=== PATIENT | female | born 1935 | race Caucasian/White ===

== ENCOUNTER 2019-06-26 17:24 | Emergency (ER) | payer MEDICARE, BC, SELFPAY ==
[2019-06-26 17:25] VITALS: BP 128/64; PULSE 65; RESP 15; TEMP 36.6; O2SAT 98; BMI 32.0
--- NOTE | 2019-06-26 17:34 | CT_ITS ---
STUDY: CT BRAIN WITHOUT CONTRAST REASON FOR EXAM: Female, 84 years old. Tripped and head injury RADIATION DOSAGE (If Supplied By Facility): CTDIvol = ( 44.99 ) mGy, DLP = ( 745.49 ) mGycm TECHNIQUE: Transaxial CT imaging of the brain was performed without administration of intravenous contrast material. Individualized dose optimization techniques were used for this CT. COMPARISON: 02/24/17 FINDINGS: Posterior scalp laceration with hematoma. Normal calvarium. There is mild cerebral atrophy with widening of the extra-axial spaces and ventricular dilatation. There are areas of decreased attenuation within the white matter tracts of the supratentorial brain, consistent with microvascular disease changes. Normal basal ganglia and thalami. Normal brainstem. There is mild cerebellar atrophy. There is no intracranial hemorrhage. There are no findings of an acute ischemic infarction. Normal visualized paranasal sinuses. CT/Brain/Head without Contrast IMPRESSION: Posterior scalp laceration with hematoma. No acute intracranial pathology. Electronically Signed: Zafar Hoffman DO at 18:12 EDT Tel , Service support ,
--- NOTE | 2019-06-26 17:35 | ED.VISSUMM ---
- ER Visit Summary Date of Service: 06/26/19 Chief Complaint: Head injury History of Present Illness: The patient is a 84 F who presents the emergency department 1 hour after she tripped over shopping cart striking the back of her head. No loss of consciousness. She is able to drive herself home and then came to the emergency department with family. She notes a growing headache. No nausea vomiting. She denies being on any anticoagulants. She denies any neck pain. Physical Examination: Afebrile vital signs stable Gen: Well-nourished well-developed Head: Normocephalic there is an occipital scalp hematoma Eyes: Perrl EOMI ENT: TMs clear no rhinorrhea moist mucous membranes Neck: Supple no lymphadenopathy no JVD nontender CVS: Regular rate rhythm no murmurs normal S1-S2 Respiratory: No distress clear to auscultation bilaterally chest nontender Abdomen: Soft nontender nondistended normal bowel sounds no masses Back: Nontender Extremity: Nontender no edema Skin: Normal color no rash Neuro: alert orientated ?3 CN II-XII intact normal strength sensation cerebellar Psych: Normal affect normal mood Test Results: CT brain was obtained. This demonstrated an occipital scalp hematoma but no obvious skull fracture or intracranial hemorrhage/contusion. Emergency Department Course and Treatment: She received Tylenol for headache. Patient will be discharged home with supportive care with instructions for Tylenol and ice. Return if worsening or concerns. Impression: 1. Mechanical fall 2. Occipital scalp hematoma This note was generated with [employer] dictation software. It may contain incorrect words, spelling, and punctuation that were not noted in review of the chart prior to signing ED Disposition - Plan for ED Patient: Disposition: Home or Assisted Living Instructions: SCALP CONTUSION, No Wake Up, HEAD INJURY, No Wake-Up (Adult) Referrals: Favio Landis MD [Primary Care Provider] - As Needed
[2019-06-26] MEDS: Acetaminophen 500 MG Tablet 1000 MG PO (18:04)
[2019-06-26 18:30] VITALS: PULSE 74; RESP 18; O2SAT 99
== END 2019-06-26 18:30 | disposition home or self-care (01) ==
PROVIDERS: Emergency Provider Emergency Medicine; Family Provider Family Medicine; PCP Family Medicine
DX: S00.03XA Contusion of scalp, initial encounter (principal); W18.09XA Striking against other object with subsequent fall, initial encounter; Y93.9 Activity, unspecified; E11.9 Type 2 diabetes mellitus without complications; Z79.84 Long term (current) use of oral hypoglycemic drugs; Z79.899 Other long term (current) drug therapy
CPT/HCPCS: 70450; 99282

== ENCOUNTER 2020-10-09 22:57 | Observation (INO) | payer MEDICARE, SELFPAY ==
[2020-10-09 22:58] VITALS: BP 175/63; PULSE 59; RESP 16; TEMP 36.5; O2SAT 97; BMI 33.3
--- NOTE | 2020-10-09 23:15 | ED.VIS.GEN ---
History of Present Illness Chief Complaint: GI Bleed Informant: Patient Narrative: Stated she had some abdominal cramping after eating lunch earlier today. It was a lower abdominal cramps. She sat on the toilet for prolonged period of time. She had a stool plug that she was able to pass with effort. Afterwards she had diarrhea mixed with some blood. She went about her day normally this evening and had another episode of cramping with nausea with one episode of emesis. She sat on the toilet afterwards and had diarrhea again mixed with bright red blood. She has never had this before. Denies any fevers or chills. Currently she has some mild abdominal cramps without nausea. No home treatment. She takes a baby aspirin otherwise no blood thinners. Her last colonoscopy was 6 years ago and she has had polyps removed remotely. 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 She was getting regular colonoscopies and never had endoscopy. No history of stomach ulcer gastritis. She does have a history of hemorrhoids. - Past Medical History (1) Lightheadedness Status: Acute (2) Visual disturbance Status: Acute (3) CKD (chronic kidney disease), stage IV Status: Chronic (4) Cervical cancer Status: Chronic (5) Dyslipidemia Status: Chronic (6) Essential hypertension Status: Chronic (7) HTN (hypertension) Status: Chronic (8) Obesity (BMI 30.0-34.9) Status: Chronic (9) Type 2 diabetes mellitus Status: Chronic Past Medical History - Allergies and Home Meds Allergies/Adverse Reactions: Allergies No Known Allergies Allergy (Verified 10/09/20 23:01) Primary Care Physician: Favio Landis MD [Primary Care Provider] - Prior records reviewed: Yes Past Medical History: - - See problem list Surgical History: - - Appendectomy, hysterectomy, cholecystectomy, D+C. Lives: With Family Smoking Status: Former smoker Alcohol: None Drugs: None - Family History Maternal Family History: Reports: Cancer - Mother with history of lung cancer with tobacco use history., COPD Paternal Family History: Reports: - - Other noted to be an alcoholic. Review of Systems General: Denies: Chills, Fever, Sweats Eyes: Denies: Visual changes - bilaterally, Diplopia ENT: Denies: Rhinorrhea, Sore throat Cardiovascular: Denies: Chest pain, Palpitations Respiratory: Denies: Dyspnea, Cough, Dyspnea on exertion Gastrointestinal: Reports: Abdominal pain, Vomiting, Hematochezia. Denies: Nausea, Diarrhea, Melena Genitourinary: Denies: Dysuria, Hematuria, Frequency Musculoskeletal: Denies: Back pain, Extremity Pain Skin: Denies: Rash, Wounds Neurological: Denies: Headache, Weakness, Numbness Physical Exam Vital Signs/Narrative: Vital Signs Temp Pulse Resp BP Pulse Ox 10/09/20 22:58 97.7 F L 59 L 16 175/63 H 97 General: Well nourished, Well developed, No Acute Distress Head: Normocephalic, Atraumatic Eyes: Perrl, EOMI ENT: Moist mucous membranes, No rhinorrhea Neck: Supple, Nontender Cardiovascular: Regular rate, Regular rhythm, No murmurs Respiratory: No distress, CTA bilaterally, Chest nontender Abdomen: Soft, Nontender, Nondistended, Normal bowel sounds Rectal: - - Patient had a rectal exam with external hemorrhoid without bleeding. On finger insertion she had no pain. There was small blood flecks on her anus and on my finger with brown stool.. Negative for: Tenderness Back: Nontender, Normal Inspection Extremities: Nontender, No edema Skin: Normal color, No rash Neurological: Alert, Oriented x3, Cranial nerves II-XII grossly intact, Normal Strength, Normal Sensation Psychological: Normal affect, Normal Mood Diagnostic/Tx/Re-eval - Medical Decision Making IV established and given IV fluids. Lab work obtained. Lab work shows a normal hemoglobin count. No further bleeding in the ER. Normal white count but positive left shift. Elevated BUN/creatinine which appears chronic. Liver function test normal. CT abdomen pelvis was obtained which shows acute uncomplicated diverticulitis. On reevaluation patient chest with some mild cramping and no specific pain in this area on exam. Given IV antibiotics. Discussed the hospitalist will be admitted. ED Disposition - Plan for ED Patient: Disposition: Acute Care Hospital [facility] Diagnosis: Acute diverticulitis of intestine
[2020-10-09] MEDS: 0.9% Normal Saline 1,000 ML 125 ML IV (23:29)
[2020-10-09 23:35] LABS: Absolute Lymphocyte Count 1.04 X10^3/uL (0.83-4.51); Absolute Neutrophil Count 8.6 X10^3/uL (2.0-7.7); Basophil# 0.03 X10^3/uL; Basophil% 0.3 % (0-1); Eosinophil# 0.02 X10^3/uL; Eosinophils% 0.2 % (0-5); Hemoglobin 12.5 g/dL (12.0-15.0); Lymphocyte # 1.04 X10^3/ul (4.0); Mean Corp Hgb Conc 32.9 g/dL (32-36); Mean Corpuscular Hgb 31.3 pg (27.0-32.0); Mean Corpuscular Volume 95.2 fL (81-99); Monocyte# 0.67 X10^3/uL; Monocyte% 6.4 % (0-10); NRBC Flagged by Analyzer 0 % (0-5); Neutrophil # 8.58 X10^3/uL (2.7-7.7); Neutrophil % 82.6 % (47-70); Platelet Count 206 K/mm3 (150-450); RBC Distribution Width CV 14.5 % (11.6-14.6); RBC Distribution Width SD 50.4 fl (35.1-43.9); Red Blood Count 3.99 M/mm3 (4.2-5.4); White Blood Count 10.4 K/mm3 (4.4-11.0)
[2020-10-09 23:54] LABS: Prothrombin Time (Protime)PT. 12.7 SECONDS (11.7-14.9)
[2020-10-09 23:56] LABS: ALB/GLOB Ratio 1.3 RATIO (0.9-2.4); AST(SGOT) 17 U/L (15-37); Alanine Aminotransfer ALT/SGPT 21 U/L (13-56); Albumin, Serum 4.2 g/dL (3.2-5.0); Alkaline Phosphatase 70 U/L (45-117); Anion Gap 4 (5-15); BUN 27 mg/dL (7-18); BUN/Creat Ratio 19.4 RATIO (10-20); Calcium,Total 9.4 mg/dL (8.5-10.1); Chloride 110 mmol/L (98-107); Creatinine, Serum 1.39 mg/dL (0.55-1.02); EST Glomerular Filtration Rate 38 mL/min (>60); Est Glom Filt Rate - Afr Amer 46 mL/min (>60); Estimated Creatinine Clearance 22.33 ml/min; Globulin 3.3 g/dL (2.2-4.2); Glucose 155 mg/dL (74-106); Potassium 3.8 mmol/L (3.5-5.1); Protein, Total 7.5 g/dL (6.4-8.2); Sodium Level 139 mmol/L (136-145)
[2020-10-10] VITALS (8 sets, daily range): BP systolic 129–169; BP diastolic 58–67; PULSE 65–82; RESP 16–18; TEMP 36.6–37.4; O2SAT 93–98; BMI 32.3
[2020-10-10] MEDS: Ciprofloxacin 400 MG/200 ML BAG 200 MG IV ×2 (01:30→22:05)
--- NOTE | 2020-10-10 03:09 | PCM.HP.STD ---
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 representative use Diabetes mellitus complication status: with unspecified complications (4) Dyslipidemia Status: Chronic (5) Essential hypertension Status: Chronic (6) HTN (hypertension) Status: Chronic Qualifiers: Hypertension type: essential hypertension Qualified Code(s): I10 - Essential (primary) hypertension (7) Cervical cancer Status: Chronic Qualifiers: Malignant neoplasm of cervix location: unspecified location Qualified Code(s): C53.9 - Malignant neoplasm of cervix uteri, unspecified (8) Obesity (BMI 30.0-34.9) Status: Chronic (9) CKD (chronic kidney disease), stage IV Status: Chronic History of Present Illness Date of Admission: 10/10/20 Chief Complaint: bloody diarrhea The patient is a 85 year old F with a significant history of cervical cancer; HTN and diabetes who presented to the ED with bloody diarrhea. Her symptoms started on the same day of presentation. For a few days she has been constipated. On the day of presentation she had tenesmus with bloody bowel movements. After her 'plug' has been removed she had multiple loose stools which were mixed with blood. Also she reports bloody mucousy string from her rectum. Associated for symptoms is nausea vomiting and abdominal cramps. Her last colonoscopy was around 2013. She reports that she is supposed to be having every 5 years colonoscopy however in 2019 as she makes the colonoscopy and it has not been rescheduled because of the pandemic. Her last colonoscopy was done by Dr. Valencia, who was with [facility] but has now retired. Her last 2 colonoscopies polyps were removed. Patient is concerned about her bloody bowel movements since her mother had bloody bowel movement and in her case (mother) work-up revealed lung cancer. Past Medical History Past Medical History (Chronic Problems): Chronic Problems Type 2 diabetes mellitus (Chronic) Dyslipidemia (Chronic) Essential hypertension (Chronic) HTN (hypertension) (Chronic) Cervical cancer (Chronic) Obesity (BMI 30.0-34.9) (Chronic) CKD (chronic kidney disease), stage IV (Chronic) Allergies No Known Allergies Allergy (Verified 10/09/20 23:01) Home Medications: Ambulatory Orders Medication Instructions Recorded Gemfibrozil [Lopid] 600 mg PO QHS 02/24/17 Lisinopril [Zestril] 2.5 mg PO DAILY 02/24/17 Metoprolol Tartrate [Lopressor 25 mg PO BID 02/24/17 (beta sandor)] Pramipexole Di-HCl [Mirapex] 0.25 mg PO QHS 02/24/17 Pravastatin Sodium 80 mg PO QHS 02/24/17 Spironolact/Hydrochlorothiazid 0.5 tab PO DAILY 02/24/17 [Aldactazide 50-50 Tablet] glipiZIDE XL [Glucotrol Xl] 5 mg PO DAILY 02/24/17 Acetaminophen [Tylenol Extra 500 mg PO BID 10/10/20 Strength] Allopurinol [Zyloprim] 100 mg PO BIDCM 10/10/20 Aspirin [Aspirin, Baby] 81 mg PO QHS 10/10/20 Cholecalciferol (Vitamin D3) 10 mcg PO DAILY 10/10/20 [Vitamin D3] Clotrimazole [Clotrimazole AF] 1 applic TOPICAL QHS 10/10/20 Cyanocobalamin (Vitamin B-12) 1,000 mcg PO DAILY 10/10/20 [Vitamin B-12] Insulin Glargine [Lantus SoloStar 34 units SQ QHS 10/10/20 Pen] Insulin Lispro [Insulin Lispro 6 unit SQ BIDCM 10/10/20 Kwikpen U-100] Surgical History: - - Appendectomy, hysterectomy, cholecystectomy, D+C. 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 Review of Systems Constitutional: Denies: Chills, Fever, Weight Change HEENT: Denies: Head Aches, Sinus Congestion, Sinus Drainage Cardiovascular: Denies: Chest Pain, Palpitations Respiratory: Denies: Cough, Shortness of breath at rest, Sputum production Gastrointestinal: Reports: Abdominal Pain, Constipation, Diarrhea, Hematochezia, Nausea. Denies: Vomiting Genitourinary: Denies: Dysuria Musculoskeletal: Denies: Joint Pain, Joint Tenderness Skin: Denies: Rash, Wounds Neurological: Denies: Numbness, Tingling, Focal weakness Psychiatric: Denies: Anxiety, Depression, Homicidal Ideations, Suicidal Ideations Hematologic/ Lymphatic: Denies: Easy Bruising, Easy Bleeding VTE Information - Inpt Only VTE Present on Admission: No VTE Mechan Device Prophylaxis: None VTE Pharm Prophylaxis ordered?: No Patient Problems: Active and Suspected Problems Acute diverticulitis of intestine (Acute) Diverticular hemorrhage (Acute) - Physical Exam Vitals/I&O's: Vital Signs Temp Pulse Resp BP Pulse Ox 98.4 F 71 16 157/62 H 97 10/10/20 01:50 10/10/20 01:50 10/10/20 01:50 10/10/20 01:50 10/10/20 01:50 Oxygen Delivery Method Room Air Weight: 80 kg Body Mass Index (BMI) 33.3 Intake and Output for Last 24 Hours 10/08/20 10/09/20 10/10/20 23:59 23:59 23:59 Intake Total 252.08 / 252.08 Balance 252.08 / 252.08 General: Alert, Oriented x3, Cooperative HEENT: Atraumatic, PERRLA, EOMI, Normocephalic Neck: Supple, No JVD, Negative Carotid Bruits Lungs: Clear to auscultation, Normal air movement Cardiovascular: Regular rate, No murmurs Abdomen: Bowel Sounds Present, Soft, Non Tender Extremities: No edema, Capillary Refill Less than 3 Seconds, Cool - Mildly cool left foot., - - Right dorsalis pedis pulse 3 out of 4. Pulse in left dorsalis pedis 2 out of 4. Skin: No rashes, No breakdown, - - Pale Musculoskeletal: No Tenderness to Palpation of Joints or Extremities Neurological: Cranial nerves II-XII grossly intact Psych/Mental Status: Normal Affect, Appropriate Laboratory Results 10/09/20 23:29: WBC 10.4, RBC 3.99 L, Hgb 12.5, Hct 38.0, MCV 95.2, MCH 31.3, MCHC 32.9, RDW Std Deviation 50.4 H, RDW Coeff of Luciano 14.5, Plt Count 206, MPV 10.0, Immature Gran % (Auto) 0.500, Neut % (Auto) 82.6 H, Lymph % (Auto) 10.0 L, Fannin % (Auto) 6.4, Eos % (Auto) 0.2, Baso % (Auto) 0.3, Absolute Neuts (auto) 8.6 H, Absolute Lymphs (auto) 1.04, Nucleated RBC % 0 10/09/20 23:29: Sodium 139, Potassium 3.8, Chloride 110 H, Carbon Dioxide 25.0, Anion Gap 4 L, BUN 27 H, Creatinine 1.39 H, Estim Creat Clear Calc 22.33, Est GFR (MDRD) Af Amer 46 L, Est GFR (MDRD) Non-Af 38 L, BUN/Creatinine Ratio 19.4, Glucose 155 H, Calcium 9.4, Total Bilirubin 0.30, AST 17, ALT 21, Alkaline Phosphatase 70, Total Protein 7.5, Albumin 4.2, Globulin 3.3, Albumin/Globulin Ratio 1.3 10/09/20 23:29: PT 12.7, INR 1.0, APTT 26.0 Current Medications Sodium Chloride () 1,000 mls @ 125 mls/hr IV .Q8H DARLENE Last Infusion: 10/10/20 01:30 Dose: 0 mls/hr Documented by: Assessment/Plan All Active Problems Acute diverticulitis of intestine (Acute) Diverticular hemorrhage (Acute) The patient is a 85 year old F with a significant history of cervical cancer; HTN and diabetes who presented to the ED with bloody diarrhea and with abdomen and pelvis CT findings of uncomplicated acute diverticulitis with colitis not excluded. Acute diverticulitis with diverticular bleed. Abdomen and pelvis CT with suspected uncomplicated acute diverticulitis involving the descending colon with underlying colitis not excluded. Started on IV ciprofloxacin and IV Flagyl at emergency department and continued. Trend CBC and BMP. Noted to have hyperchloremia. Half-normal saline started. Patient is a candidate for colonoscopy after acute diverticulitis has resolved. We will keep n.p.o. for now. Morphine IV as needed for pain. Zofran IV as needed for nausea and vomiting. Diabetes mellitus Patient with mild hyperglycemia on presentation Patient requested a basal insulin her emergency department. Discussed emergent department to give 10 units of basal insulin instead of a home at 34 units nightly. Basal insulin 36 units nightly while n.p.o at this time. Reports that she takes short acting insulin 6 units with each meal. Hold prandial insulin at this time. Previously on Metformin. Reported she is no longer on Metformin. Hold glipizide. Accu-Chek every 6 hours with correction scale insulin ordered. Low-dose lisinopril continued Hyperlipidemia Gemfibrozil continued Hypertension Blood pressure is not within goal Lisinopril; metoprolol; Aldactone and hydrochlorothiazide continued. Trend blood pressure and adjust blood pressure medications. CKD stage III Stable DVT prophylaxis No chemical thromboprophylaxis secondary to GI bleed. SCD ordered Advance care planning: Discussed with patient advanced directives as well as CODE STATUS. Explained various CODE STATUS: FULL CODE, DNR CCA, DNR CCA with no intubation, and DNR CC- and what each meant. Patient elected to be a full code with CPR and intubation if warranted. Order was placed. Her daughter Tiffanie Wheat ([phone]) is POA. Patient stated that if she is unable to come back to be functional she would not want any heroic measures but at this time she is a full code. Time spent on discussion 16 minutes. Inpatient E&M: 22192 Init Hosp L3 Procedures: 75623 Advncd Care Plan 30 Min
[2020-10-10] MEDS: metroNIDAZOLE 500 MG/100 ML BAG 100 MG IV ×3 (03:17→21:00)
[2020-10-10] MEDS: 0.45% Normal Saline 1,000 ML 75 ML IV ×2 (04:29→17:34)
[2020-10-10] MEDS: Insulin Lispro 100 UNIT/ML INSULN.PEN SC ×2 (06:00→17:34)
[2020-10-10 06:01] LABS: Bedside Glucose 159 mg/dL (70-110)
[2020-10-10 06:41] LABS: Absolute Neutrophil Count 8.7 X10^3/uL (2.0-7.7); Basophil# 0.03 X10^3/uL; Basophil% 0.3 % (0-1); Eosinophil# 0.01 X10^3/uL; Eosinophils% 0.1 % (0-5); Hemoglobin 12.3 g/dL (12.0-15.0); Lymphocyte % 9.6 % (19-41); Mean Corp Hgb Conc 34.2 g/dL (32-36); Mean Corpuscular Hgb 32.1 pg (27.0-32.0); Mean Platelet Vol. 10.3 fl (6.2-12.0); Monocyte% 5.8 % (0-10); NRBC Flagged by Analyzer 0 % (0-5); Neutrophil # 8.72 X10^3/uL (2.7-7.7); Neutrophil % 83.8 % (47-70); Platelet Count 187 K/mm3 (150-450); RBC Distribution Width CV 14.5 % (11.6-14.6); RBC Distribution Width SD 49.5 fl (35.1-43.9); Red Blood Count 3.83 M/mm3 (4.2-5.4); White Blood Count 10.4 K/mm3 (4.4-11.0)
[2020-10-10 07:08] LABS: Anion Gap 7 (5-15); BUN 22 mg/dL (7-18); BUN/Creat Ratio 17.1 RATIO (10-20); Calcium,Total 8.9 mg/dL (8.5-10.1); Chloride 108 mmol/L (98-107); Creatinine, Serum 1.29 mg/dL (0.55-1.02); EST Glomerular Filtration Rate 42 mL/min (>60); Est Glom Filt Rate - Afr Amer 51 mL/min (>60); Estimated Creatinine Clearance 25.22 ml/min; Glucose 140 mg/dL (74-106); Sodium Level 137 mmol/L (136-145)
[2020-10-10] MEDS: Lisinopril 2.5 MG Tablet PO (10:09)
[2020-10-10] MEDS: Metoprolol Tartrate 25 MG Tablet PO ×2 (10:09→21:03)
[2020-10-10] MEDS: Acetaminophen 500 MG Tablet PO ×2 (10:11→21:03)
[2020-10-10 12:00] LABS: Bedside Glucose 179 mg/dL (70-110)
--- NOTE | 2020-10-10 12:32 | PCM.PN.HOSP ---
<Edwar Boyce - Last Filed: 10/10/20 12:32> Patient Problems: Active and Suspected Problems Acute diverticulitis of intestine (Acute) Diverticular hemorrhage (Acute) Reason for Visit: diverticulitis Subjective: Pt denies prior episode of diverticulitis. She has colonoscopies every 5 years with [facility], is currently due, as she has a hx of polyps. She had some diarrhea this AM. She has some bright red blood and clots in her stool, which is loose. She has mild intermittent diffuse abodminal cramping. She has no further nausea or vomiting and is tolerating jello. No fever/chills. Vitals/I&O's: Vital Signs Temp Pulse Resp BP Pulse Ox 99.3 F H 80 16 129/58 H 93 10/10/20 08:57 10/10/20 10:09 10/10/20 08:57 10/10/20 08:57 10/10/20 08:57 Oxygen Delivery Method Room Air Weight: 176 lb 12.972 oz Body Mass Index (BMI) 32.3 Intake and Output for Last 24 Hours 10/08/20 10/09/20 10/10/20 23:59 23:59 23:59 Intake Total 552.08 / 552.08 Output Total 400 / 400 Balance 152.08 / 152.08 General: Alert, Oriented x3, Cooperative HEENT: Atraumatic, PERRLA, EOMI, Normocephalic Neck: Supple, No JVD, Negative Carotid Bruits Lungs: Clear to auscultation, Normal air movement Cardiovascular: Regular rate, No murmurs Abdomen: Bowel Sounds Present, Soft, Non Tender, Obese Extremities: No edema, Capillary Refill Less than 3 Seconds Skin: No rashes, No breakdown Musculoskeletal: No Tenderness to Palpation of Joints or Extremities Neurological: Cranial nerves II-XII grossly intact Psych/Mental Status: Normal Affect, Appropriate, Alert and oriented to time, place, person, mood and affect Laboratory Results 10/09/20 23:29: WBC 10.4, RBC 3.99 L, Hgb 12.5, Hct 38.0, MCV 95.2, MCH 31.3, MCHC 32.9, RDW Std Deviation 50.4 H, RDW Coeff of Luciano 14.5, Plt Count 206, MPV 10.0, Immature Gran % (Auto) 0.500, Neut % (Auto) 82.6 H, Lymph % (Auto) 10.0 L, [place] % (Auto) 6.4, Eos % (Auto) 0.2, Baso % (Auto) 0.3, Absolute Neuts (auto) 8.6 H, Absolute Lymphs (auto) 1.04, Nucleated RBC % 0 10/09/20 23:29: Sodium 139, Potassium 3.8, Chloride 110 H, Carbon Dioxide 25.0, Anion Gap 4 L, BUN 27 H, Creatinine 1.39 H, Estim Creat Clear Calc 22.33, Est GFR (MDRD) Af Amer 46 L, Est GFR (MDRD) Non-Af 38 L, BUN/Creatinine Ratio 19.4, Glucose 155 H, Calcium 9.4, Total Bilirubin 0.30, AST 17, ALT 21, Alkaline Phosphatase 70, Total Protein 7.5, Albumin 4.2, Globulin 3.3, Albumin/Globulin Ratio 1.3 10/09/20 23:29: PT 12.7, INR 1.0, APTT 26.0 10/10/20 05:56: POC Glucose 159 H 10/10/20 06:10: WBC 10.4, RBC 3.83 L, Hgb 12.3, Hct 36.0 L, MCV 94.0, MCH 32.1 H, MCHC 34.2, RDW Std Deviation 49.5 H, RDW Coeff of Luciano 14.5, Plt Count 187, MPV 10.3, Immature Gran % (Auto) 0.400, Neut % (Auto) 83.8 H, Lymph % (Auto) 9.6 L, [place] % (Auto) 5.8, Eos % (Auto) 0.1, Baso % (Auto) 0.3, Absolute Neuts (auto) 8.7 H, Absolute Lymphs (auto) 1.00, Nucleated RBC % 0 10/10/20 06:10: Sodium 137, Potassium 4.0, Chloride 108 H, Carbon Dioxide 22.0, Anion Gap 7, BUN 22 H, Creatinine 1.29 H, Estim Creat Clear Calc 25.22, Est GFR (MDRD) Af Amer 51 L, Est GFR (MDRD) Non-Af 42 L, BUN/Creatinine Ratio 17.1, Glucose 140 H, Calcium 8.9 10/10/20 11:56: POC Glucose 179 H Current Medications Acetaminophen (Acetaminophen 500 Mg Tablet) 500 mg PO BID [facility] Last Admin: 10/10/20 10:11 Dose: 500 mg Documented by: Allopurinol (Allopurinol 100 Mg Tablet) 100 mg PO BIDCM [facility] Last Admin: 10/10/20 10:13 Dose: Not Given Documented by: Cholecalciferol (Cholecalciferol (Vit D3) 1,000 Unit (25mcg)) 1,000 unit PO DAILY [facility] Last Admin: 10/10/20 10:13 Dose: Not Given Documented by: Clotrimazole (Clotrimazole 1 Tube) 1 applicatio [facility]; Protocol Cyanocobalamin (Cyanocobalamin 500 Mcg Tablet) 1,000 mcg PO DAILY [facility] Last Admin: 10/10/20 10:13 Dose: Not Given Documented by: Dextrose (Dextrose 50%-Water 25 Gm/50 Ml Disp.Syrin) 0 gm IV X1 PRN; Protocol PRN Reason: Hypoglycemia Gemfibrozil (Gemfibrozil 600 Mg Tablet) 600 mg PO DAILY [facility] Last Admin: 10/10/20 10:12 Dose: Not Given Documented by: Glucagon (Glucagon 1 Mg/Ml Syringe) 1 mg IM .X1 PRN PRN Reason: Hypoglycemia Hydrochlorothiazide (Hydrochlorothiazide 25 Mg Tablet) 25 mg PO DAILY [facility] Last Admin: 10/10/20 10:12 Dose: Not Given Documented by: Metronidazole (Flagyl) 500 mg in 100 mls @ 100 mls/hr IV Q8 [facility] Ciprofloxacin (Cipro) 400 mg in 200 mls @ 200 mls/hr IV Q24@2200 [facility] Sodium Chloride () 1,000 mls @ 75 mls/hr IV .[id number] [facility] Last Admin: 10/10/20 04:29 Dose: 75 mls/hr Documented by: Sodium Chloride () 250 mls @ 15 mls/hr IV .[id number] PRN PRN Reason: Saline Flush Sodium Chloride () 250 mls @ 15 mls/hr IV .[id number] PRN PRN Reason: Additional IVPB Infusion Insulin Glargine (Insulin Glargine 100 Units/Ml Pen) 10 units SC QHS [facility] Insulin Human Lispro (Insulin Lispro 100 Unit/Ml Insuln.Pen) 0 unit SC Q6 [facility]; Protocol Last Admin: 10/10/20 06:00 Dose: 1 unit Documented by: Lisinopril (Lisinopril 2.5 Mg Tablet) 2.5 mg PO DAILY [facility] Last Admin: 10/10/20 10:09 Dose: 2.5 mg Documented by: Melatonin (Melatonin 3 Mg Tablet) 3 mg PO QHS PRN PRN PRN Reason: INSOMNIA Metoprolol Tartrate (Metoprolol Tartrate 25 Mg Tablet) 25 mg PO BID [facility] Last Admin: 10/10/20 10:09 Dose: 25 mg Documented by: Morphine Sulfate (Morphine 2 Mg/Ml Syringe) 1 mg IV Q3H PRN PRN PRN Reason: Pain Score 6-10 Ondansetron HCl (Ondansetron 4 Mg/2 Ml Vial) 4 mg IV Q8H PRN PRN PRN Reason: NAUSEA/VOMITING Pramipexole Dihydrochloride (Pramipexole Di-Hcl 0.25 Mg Tablet) 0.25 mg PO QHS [facility] Pravastatin Sodium (Pravastatin 80 Mg Tablet) 80 mg PO QHS [facility] Sodium Chloride (0.9% Saline Lock 10 Ml Syringe) 10 - 40 ml IV UD PRN PRN Reason: SALINE FLUSH Spironolactone (Spironolactone 25 Mg Tablet) 25 mg PO DAILY [facility] Last Admin: 10/10/20 10:13 Dose: Not Given Documented by: STROKE Vital Signs/Narrative: Vital Signs Temp Pulse Resp BP Pulse Ox 10/10/20 10:09 80 10/10/20 08:57 99.3 F H 82 16 129/58 H 93 Medical Necessity - Tobacco Use Smoking Status: Former smoker Assessment/Plan All Active Problems Acute diverticulitis of intestine (Acute) Diverticular hemorrhage (Acute) 1. Acute diverticulitis - 1st episode. advance diet with caution, doing well today. No fever/leukocytosis. Nausea resolved. Tolerating clears. Mild cramping. CT abdomen with uncomplicated acute diverticulitis. Cipro / flagyl continued. Recommend outpatient colonoscopy when recovered. She has some bleeding as well, however she has normal Hgb. 2. HTN - improved on home meds. 3. DMt2 with obesity - SSI 4. CKD IV - improved with IV fluids DVT ppx: SCDs This patient was seen by Edwar Boyce PA-C under the supervision of Dr. Hester. <Piter Hester - Last Filed: 10/10/20 16:13> Vitals/I&O's: Vital Signs Temp Pulse Resp BP Pulse Ox 36.6 C 78 18 133/61 H 95 10/10/20 13:10 10/10/20 13:10 10/10/20 13:10 10/10/20 13:10 10/10/20 13:10 Oxygen Delivery Method Room Air Weight: 80.2 kg Body Mass Index (BMI) 32.3 Intake and Output for Last 24 Hours 10/08/20 10/09/20 10/10/20 23:59 23:59 23:59 Intake Total 1459.58 / 1459.58 Output Total 400 / 400 Balance 1059.58 / 1059.58 General: Alert, Cooperative HEENT: Atraumatic, Normocephalic Neck: Supple, Negative Carotid Bruits Lungs: Clear to auscultation, Normal air movement Cardiovascular: Regular rate, No murmurs Abdomen: Bowel Sounds Present, Soft, Non Tender Extremities: No edema, No Calf Tenderness Skin: No rashes, No breakdown Psych/Mental Status: Normal Affect, Appropriate Laboratory Results 10/09/20 23:29: WBC 10.4, RBC 3.99 L, Hgb 12.5, Hct 38.0, MCV 95.2, MCH 31.3, MCHC 32.9, RDW Std Deviation 50.4 H, RDW Coeff of Luciano 14.5, Plt Count 206, MPV 10.0, Immature Gran % (Auto) 0.500, Neut % (Auto) 82.6 H, Lymph % (Auto) 10.0 L, [place] % (Auto) 6.4, Eos % (Auto) 0.2, Baso % (Auto) 0.3, Absolute Neuts (auto) 8.6 H, Absolute Lymphs (auto) 1.04, Nucleated RBC % 0 10/09/20 23:29: Sodium 139, Potassium 3.8, Chloride 110 H, Carbon Dioxide 25.0, Anion Gap 4 L, BUN 27 H, Creatinine 1.39 H, Estim Creat Clear Calc 22.33, Est GFR (MDRD) Af Amer 46 L, Est GFR (MDRD) Non-Af 38 L, BUN/Creatinine Ratio 19.4, Glucose 155 H, Calcium 9.4, Total Bilirubin 0.30, AST 17, ALT 21, Alkaline Phosphatase 70, Total Protein 7.5, Albumin 4.2, Globulin 3.3, Albumin/Globulin Ratio 1.3 10/09/20 23:29: PT 12.7, INR 1.0, APTT 26.0 10/10/20 05:56: POC Glucose 159 H 10/10/20 06:10: WBC 10.4, RBC 3.83 L, Hgb 12.3, Hct 36.0 L, MCV 94.0, MCH 32.1 H, MCHC 34.2, RDW Std Deviation 49.5 H, RDW Coeff of Luciano 14.5, Plt Count 187, MPV 10.3, Immature Gran % (Auto) 0.400, Neut % (Auto) 83.8 H, Lymph % (Auto) 9.6 L, [place] % (Auto) 5.8, Eos % (Auto) 0.1, Baso % (Auto) 0.3, Absolute Neuts (auto) 8.7 H, Absolute Lymphs (auto) 1.00, Nucleated RBC % 0 10/10/20 06:10: Sodium 137, Potassium 4.0, Chloride 108 H, Carbon Dioxide 22.0, Anion Gap 7, BUN 22 H, Creatinine 1.29 H, Estim Creat Clear Calc 25.22, Est GFR (MDRD) Af Amer 51 L, Est GFR (MDRD) Non-Af 42 L, BUN/Creatinine Ratio 17.1, Glucose 140 H, Calcium 8.9 10/10/20 11:56: POC Glucose 179 H Current Medications Acetaminophen (Acetaminophen 500 Mg Tablet) 500 mg PO BID [facility] Last Admin: 10/10/20 10:11 Dose: 500 mg Documented by: Allopurinol (Allopurinol 100 Mg Tablet) 100 mg PO BIDCM [facility] Last Admin: 10/10/20 10:13 Dose: Not Given Documented by: Cholecalciferol (Cholecalciferol (Vit D3) 1,000 Unit (25mcg)) 1,000 unit PO DAILY [facility] Last Admin: 10/10/20 10:13 Dose: Not Given Documented by: Clotrimazole (Clotrimazole 1 Tube) 1 applicatio TOPICAL [facility]; Protocol Cyanocobalamin (Cyanocobalamin 500 Mcg Tablet) 1,000 mcg PO DAILY [facility] Last Admin: 10/10/20 10:13 Dose: Not Given Documented by: Dextrose (Dextrose 50%-Water 25 Gm/50 Ml Disp.Syrin) 0 gm IV X1 PRN; Protocol PRN Reason: Hypoglycemia Gemfibrozil (Gemfibrozil 600 Mg Tablet) 600 mg PO DAILY [facility] Last Admin: 10/10/20 10:12 Dose: Not Given Documented by: Glucagon (Glucagon 1 Mg/Ml Syringe) 1 mg IM .X1 PRN PRN Reason: Hypoglycemia Hydrochlorothiazide (Hydrochlorothiazide 25 Mg Tablet) 25 mg PO DAILY [facility] Last Admin: 10/10/20 10:12 Dose: Not Given Documented by: Metronidazole (Flagyl) 500 mg in 100 mls @ 100 mls/hr IV Q8 [facility] Last Admin: 10/10/20 14:02 Dose: 100 mls/hr Documented by: Ciprofloxacin (Cipro) 400 mg in 200 mls @ 200 mls/hr IV Q24@2200 [facility] Sodium Chloride () 1,000 mls @ 75 mls/hr IV .[id number] [facility] Last Infusion: 10/10/20 14:35 Dose: 0 mls/hr Documented by: Sodium Chloride () 250 mls @ 15 mls/hr IV .[id number] PRN PRN Reason: Saline Flush Sodium Chloride () 250 mls @ 15 mls/hr IV .[id number] PRN PRN Reason: Additional IVPB Infusion Insulin Glargine (Insulin Glargine 100 Units/Ml Pen) 10 units SC QHS [facility] Insulin Human Lispro (Insulin Lispro 100 Unit/Ml Insuln.Pen) 0 unit SC Q6 [facility]; Protocol Last Admin: 10/10/20 13:14 Dose: Not Given Documented by: Lisinopril (Lisinopril 2.5 Mg Tablet) 2.5 mg PO DAILY [facility] Last Admin: 10/10/20 10:09 Dose: 2.5 mg Documented by: Melatonin (Melatonin 3 Mg Tablet) 3 mg PO QHS PRN PRN PRN Reason: INSOMNIA Metoprolol Tartrate (Metoprolol Tartrate 25 Mg Tablet) 25 mg PO BID [facility] Last Admin: 10/10/20 10:09 Dose: 25 mg Documented by: Morphine Sulfate (Morphine 2 Mg/Ml Syringe) 1 mg IV Q3H PRN PRN PRN Reason: Pain Score 6-10 Ondansetron HCl (Ondansetron 4 Mg/2 Ml Vial) 4 mg IV Q8H PRN PRN PRN Reason: NAUSEA/VOMITING Pramipexole Dihydrochloride (Pramipexole Di-Hcl 0.25 Mg Tablet) 0.25 mg PO QHS [facility] Pravastatin Sodium (Pravastatin 80 Mg Tablet) 80 mg PO QHS [facility] Sodium Chloride (0.9% Saline Lock 10 Ml Syringe) 10 - 40 ml IV UD PRN PRN Reason: SALINE FLUSH Spironolactone (Spironolactone 25 Mg Tablet) 25 mg PO DAILY [facility] Last Admin: 10/10/20 10:13 Dose: Not Given Documented by: STROKE Vital Signs/Narrative: Vital Signs Temp Pulse Resp BP Pulse Ox 10/10/20 13:10 36.6 C 78 18 133/61 H 95 Assessment/Plan Patient seen and examined independently. Data reviewed. I agree with the above note by the physician child development assistant. 1. Acute diverticulitis: Overall better. Advance diet to clears. Continue with ciprofloxacin and metronidazole. 2. GI bleed likely related to diverticulosis. Monitor hemoglobin. No plan for transfusion at this time. Outpatient colonoscopy. Procedures: Other Procedure - See Report - Non-billable rounding as pt admitted after midnight.
--- NOTE | 2020-10-10 12:45 | CASEMGMT ---
Addendum entered by Kishan Remy 10/10/20 16:18: Pt states she changed her mind about a walker and would like a rollator. She is aware insurance only covers for part of the rollator and she is agreeable to paying for remainder. Script obtained from for rollator and has been faxed to Chris. [employer] to call pt for payment of rollator and then they will deliver it to pt's room today. Original Note: RN CM SERVICES TECH CM to room to meet with patient for initial transition planning/care coordination assessment. RN CM introduced self and role at [facility]. Pt voices understanding and consents to assessment at this time. Pt sitting up in recliner chair in no distress at this time. Pt is A/O at this time and answers all questions appropriately. Care providers, pharmacy, and demographics verified/updated at this time. PCP: Dr Landis Specialists: Dr Santiago--podiatry, Used to see a Dr Valencia @ [facility] [place] but he has retired. States she thinks it was 2013 when she had her last colonoscopy Preferred Pharmacy:[facility] [place] Insurance:[facility] Prescription Benefit: Yes Living Will/HPOA: Has both LW and Healthcare POA, who is her daughter, Gabriela Wheat. LNOK: , Charles. Daughter, Gabriela/VANESA Living Arrangements:Lives w/her in one-story condo w/basement. 2 steps to enter through the garage w/bilat rails. Pt independent w/ADL's and IADL's. They do hire a cleaning lady 2 x's/month. Pt's is 89 and has had strokes in the past and has some difficulty talking. 's son is @ pt's home to stay with her while pt is in the hospital. Pt states she cooks on occasion, but they order most of their meals/carry-in. Transportation: Pt states drives self and states no transportation concerns at this time. Daughter will take her home @ d/c. DME: States has the following DME: built-in shower chair, grab bars, hand held shower, comfort height commode w/bars, medical alert button, glucometer. Pt states she has been borrowing her husbands walker and would like to get one of her own. She was provided w/list of local DME companies. She denies preference and is agreeable to [employer]. HHC/SNF: No history of either and denies needs for HHC or OP therapy. Pt wishes to return home and states has no concerns with going home at time of discharge. CM to follow for any further discharge planning/needs. Pt voices no further concerns/needs at this time. Advised pt to ask for CM if any further questions/concerns/needs arise. Voices understanding. PLAN: Home Pt would like a walker. Christine MOEN RN CM
[2020-10-10 16:46] LABS: Bedside Glucose 144 mg/dL (70-110)
[2020-10-10 16:54] LABS: Absolute Lymphocyte Count 1.42 X10^3/uL (0.83-4.51); Absolute Neutrophil Count 9.5 X10^3/uL (2.0-7.7); Basophil# 0.04 X10^3/uL; Basophil% 0.3 % (0-1); Eosinophil# 0.06 X10^3/uL; Eosinophils% 0.5 % (0-5); Hematocrit 38.9 % (37-47); Hemoglobin 12.8 g/dL (12.0-15.0); Lymphocyte # 1.42 X10^3/ul (4.0); Lymphocyte % 11.9 % (19-41); Mean Corp Hgb Conc 32.9 g/dL (32-36); Mean Corpuscular Hgb 31.1 pg (27.0-32.0); Mean Corpuscular Volume 94.6 fL (81-99); Mean Platelet Vol. 10.2 fl (6.2-12.0); Monocyte# 0.87 X10^3/uL; Monocyte% 7.3 % (0-10); NRBC Flagged by Analyzer 0 % (0-5); Neutrophil # 9.54 X10^3/uL (2.7-7.7); Neutrophil % 79.7 % (47-70); Platelet Count 208 K/mm3 (150-450); RBC Distribution Width CV 14.7 % (11.6-14.6); RBC Distribution Width SD 51.3 fl (35.1-43.9); Red Blood Count 4.11 M/mm3 (4.2-5.4)
[2020-10-10] MEDS: Allopurinol 100 MG Tablet PO (17:34)
[2020-10-10] MEDS: Pravastatin 80 MG Tablet PO (21:03)
[2020-10-10] MEDS: Pramipexole Di-HCl 0.25 MG Tablet PO (21:03)
[2020-10-10 22:16] LABS: Bedside Glucose 167 mg/dL (70-110)
--- NOTE | 2020-10-10 23:59 | CT_ITS ---
STUDY: CT ABDOMEN AND PELVIS WITHOUT CONTRAST REASON FOR EXAM: Female, 85 years old. CONSTIPATION, BLOOD IN STOOL, EMESIS, CRAMPING, HX CERVICAL CA WITH VAGINAL HYSTERECTOMY-UTERUS ONLY, DIAB, HTN RADIATION DOSAGE (If Supplied By Facility): CTDIvol = ( 13.64 ) mGy, DLP = ( 596.30 ) mGycm TECHNIQUE: Transaxial images were obtained from the dome of the diaphragm to the symphysis pubis without oral contrast, and without intravenous contrast. Sagittal and coronal images were reconstructed. Individualized dose optimization techniques were used for this CT. COMPARISON: None. FINDINGS: The visualized lung bases are unremarkable. The visualized portions of the heart are within normal limits. Normal liver. There is non-visualization of the gallbladder, which may be secondary to either contraction or a prior cholecystectomy. Normal spleen. Normal pancreas. Normal bilateral adrenal glands. There is mild cortical atrophy of the right kidney, consistent with chronic medical renal disease. There is mild cortical atrophy of the left kidney, consistent with chronic medical renal disease. Normal visualized stomach. Normal small intestine. Descending colon uncomplicated acute diverticulitis. There is non-visualization of the appendix. There is diffuse atherosclerotic calcification of the abdominal aorta, without a demonstrated aneurysm. Normal inferior vena cava. Normal retroperitoneum. Normal urinary bladder. There is absence of the uterus consistent with a prior hysterectomy. Likely left ovarian cyst measuring 4.4 cm Normal abdominal wall. There are diffuse degenerative changes of the visualized lumbar spine. CT/Abdomen/Pelvis without Cont IMPRESSION: Suspected uncomplicated acute diverticulitis involving the descending colon however, underlying colitis cannot be fully excluded. Recommend clinical correlation. Electronically Signed: Zafar Hoffman DO at 0:56 EST Tel , Service support ,
[2020-10-11 02:36] VITALS: BP 129/59; PULSE 69; RESP 16; TEMP 36.5; O2SAT 96
[2020-10-11] MEDS: Insulin Lispro 100 UNIT/ML INSULN.PEN SC ×2 (06:31→11:40)
[2020-10-11] MEDS: 0.45% Normal Saline 1,000 ML 75 ML IV (06:33)
[2020-10-11] MEDS: metroNIDAZOLE 500 MG/100 ML BAG 100 MG IV ×2 (06:34→13:12)
[2020-10-11 06:41] LABS: Bedside Glucose 160 mg/dL (70-110)
[2020-10-11 06:42] LABS: Absolute Lymphocyte Count 1.49 X10^3/uL (0.83-4.51); Absolute Neutrophil Count 8.8 X10^3/uL (2.0-7.7); Basophil# 0.03 X10^3/uL; Basophil% 0.3 % (0-1); Eosinophil# 0.13 X10^3/uL; Eosinophils% 1.1 % (0-5); Hematocrit 33.2 % (37-47); Hemoglobin 10.8 g/dL (12.0-15.0); Lymphocyte # 1.49 X10^3/ul (4.0); Lymphocyte % 13.2 % (19-41); Mean Corp Hgb Conc 32.5 g/dL (32-36); Mean Corpuscular Volume 95.4 fL (81-99); Mean Platelet Vol. 10.3 fl (6.2-12.0); Monocyte# 0.83 X10^3/uL; Monocyte% 7.3 % (0-10); NRBC Flagged by Analyzer 0 % (0-5); Neutrophil # 8.79 X10^3/uL (2.7-7.7); Neutrophil % 77.7 % (47-70); Platelet Count 162 K/mm3 (150-450); RBC Distribution Width CV 14.7 % (11.6-14.6); RBC Distribution Width SD 51.6 fl (35.1-43.9); Red Blood Count 3.48 M/mm3 (4.2-5.4); White Blood Count 11.3 K/mm3 (4.4-11.0)
[2020-10-11 07:05] LABS: Anion Gap 7 (5-15); BUN 15 mg/dL (7-18); BUN/Creat Ratio 12.5 RATIO (10-20); Calcium,Total 8.2 mg/dL (8.5-10.1); Chloride 107 mmol/L (98-107); EST Glomerular Filtration Rate 45 mL/min (>60); Est Glom Filt Rate - Afr Amer 55 mL/min (>60); Estimated Creatinine Clearance 27.11 ml/min; Glucose 151 mg/dL (74-106); Potassium 3.9 mmol/L (3.5-5.1); Sodium Level 137 mmol/L (136-145)
[2020-10-11 08:35] VITALS: BP 108/39; PULSE 80; RESP 14; TEMP 36.7; O2SAT 95
[2020-10-11 09:52] VITALS: PULSE 80
[2020-10-11] MEDS: Cyanocobalamin 500 MCG Tablet 1000 MCG PO (09:52)
[2020-10-11] MEDS: Gemfibrozil 600 MG Tablet PO (09:52)
[2020-10-11] MEDS: Metoprolol Tartrate 25 MG Tablet PO (09:52)
[2020-10-11] MEDS: Acetaminophen 500 MG Tablet PO (09:52)
[2020-10-11] MEDS: Allopurinol 100 MG Tablet PO ×2 (09:52→17:32)
[2020-10-11] MEDS: hydroCHLOROthiazide 25 MG Tablet PO (09:53)
[2020-10-11] MEDS: Lisinopril 2.5 MG Tablet PO (09:53)
[2020-10-11] MEDS: Spironolactone 25 MG Tablet PO (09:53)
--- NOTE | 2020-10-11 10:32 | DCINST_ITS ---
- Discharge Diagnoses Current Active Problems: Current Active and Chronic Problems Acute diverticulitis of intestine (Acute) Diverticular hemorrhage (Acute) Type 2 diabetes mellitus (Chronic) Dyslipidemia (Chronic) Essential hypertension (Chronic) HTN (hypertension) (Chronic) Cervical cancer (Chronic) Obesity (BMI 30.0-34.9) (Chronic) CKD (chronic kidney disease), stage IV (Chronic) You will use the following diet at home:: Calorie/Carbohydrate Controlled (specify 1200, 1400, etc) - 1800 lizet / day, Cardiac, Other - Carefully advance your diet at home initially avoiding greasy or spicy foods. If you eat something that causes your symptoms to return they should be avoided until you completely recover. Your food should be the consistency of: Regular Your liquids should be the consistency of: Regular/Thin Discharge Activity: Return to Normal Activity Additional Instructions: You will need follow up with a sample weaver for endoscopy after you have recovered. As we discussed today, you should talk to your primary care provider for a referral in order to arrange this. Allergies/Adverse Reactions: Allergies No Known Allergies Allergy (Verified 10/09/20 23:01) Medications to take at Discharge Gemfibrozil [Lopid] 600 mg PO QHS 02/24/17 Lisinopril [Zestril] 2.5 mg PO DAILY 02/24/17 Metoprolol Tartrate [Lopressor (beta sandor)] 25 mg PO BID 02/24/17 Pramipexole Di-HCl [Mirapex] 0.25 mg PO QHS 02/24/17 Pravastatin Sodium 80 mg PO QHS 02/24/17 Spironolact/Hydrochlorothiazid [Aldactazide 50-50 Tablet] 0.5 tab PO DAILY 02/24/17 glipiZIDE XL [Glucotrol Xl] 5 mg PO DAILY 02/24/17 Acetaminophen [Tylenol] 500 mg PO BID 10/10/20 Allopurinol [Zyloprim] 100 mg PO BIDCM 10/10/20 Aspirin [Aspirin, Baby] 81 mg PO QHS 10/10/20 Cholecalciferol (Vitamin D3) [Vitamin D3] 10 mcg PO DAILY 10/10/20 Clotrimazole [Clotrimazole AF] 1 applic TOPICAL QHS 10/10/20 Cyanocobalamin (Vitamin B-12) [Vitamin B-12] 1,000 mcg PO DAILY 10/10/20 Insulin Glargine [Lantus SoloStar Pen] 34 units SQ QHS 10/10/20 Insulin Lispro [Insulin Lispro Kwikpen U-100] 6 unit SQ BIDCM 10/10/20 Ciprofloxacin [Cipro] 500 mg PO BID #14 tab 10/11/20 Metronidazole [Flagyl] 500 mg PO TID #21 tab 10/11/20 The following prescriptions were given: Ciprofloxacin [Cipro] 500 mg PO BID #14 tab Transmission Status: Pending to [employer] [facility] Metronidazole [Flagyl] 500 mg PO TID #21 tab Transmission Status: Pending to [employer] [facility] Primary Care Physician: Favio Landis MD [Primary Care Provider] - Please follow up with your Primary Care Physician in: 1-2 weeks Test Results: Test results from this visit will be discussed in further detail at your follow- up appointment, if applicable. Proposed Discharge Date: 10/11/20
[2020-10-11 11:00] VITALS: O2SAT 95
[2020-10-11 11:51] LABS: Bedside Glucose 205 mg/dL (70-110)
--- NOTE | 2020-10-11 12:13 | PCM.DC.SUM ---
<Edwar Boyce - Last Filed: 10/11/20 12:13> Discharge Date and Diagnosis - Problem List Patient Problems: Active and Suspected Problems Acute diverticulitis of intestine (Acute) Diverticular hemorrhage (Acute) Date of Admission: 10/10/20 Date of Discharge: 10/11/20 - Primary Discharge Diagnosis Acute Problems: Active Problems Acute diverticulitis of intestine (Acute) Diverticular hemorrhage (Acute) Bleeding hemorrhoids - Secondary Discharge Diagnosis Chronic Problems: Chronic Problems Type 2 diabetes mellitus (Chronic) Dyslipidemia (Chronic) Essential hypertension (Chronic) HTN (hypertension) (Chronic) Cervical cancer (Chronic) Obesity (BMI 30.0-34.9) (Chronic) CKD (chronic kidney disease), stage IV (Chronic) Hospital Course and Treatment Imaging Results: CT/Abdomen/Pelvis without Cont IMPRESSION: Suspected uncomplicated acute diverticulitis involving the descending colon however, underlying colitis cannot be fully excluded. Recommend clinical correlation. Operations: None Procedures: None Summary of Care Provided: Hospital Course: The patient is a 85 year old F with pmhx as above who presented to the ER with c/o bloody diarrhea, diffuse abdominal cramping, and nausea and vomiting that started the day of presentation. CT abdomen demonstrated acute diverticulitis. She was admitted to the med surg floor and placed on cipro/flagyl and clear liquid diet. She improved significantly overnight. Her Hgb had a small drop from 12.5 to 10.8 throughout the course of her stay. Her symptoms improved dramatically and her diet was successfully advanced. The final day of discharge she had no blood in the bowel on BM, she had a small bright red amount on the toilet paper on wiping and did note that her hemorrhoids were bleeding. She was transitioned to PO cipro and flagyl for 7 more days. She was advised to follow up with her PCP whom she noted could refer her for endoscopy as an outpatient - she had had prior colonoscopies q 5 years for polyps and was currently overdue, however her prior GI doctor was no longer available and she preferred to seek a physician through her PCP at [facility]. Endoscopy should be pursued once acute diverticulitis has fully resolved. She was discharged home in stable condition. This patient was seen by Edwar Boyce PA-C under the supervision of Dr. Hester. [] Patient Problems: Active and Suspected Problems Acute diverticulitis of intestine (Acute) Diverticular hemorrhage (Acute) - Physical Exam Vitals/I&O's: Vital Signs Temp Pulse Resp BP Pulse Ox 98.0 F 80 14 108/39 L 95 10/11/20 08:35 10/11/20 09:52 10/11/20 08:35 10/11/20 08:35 10/11/20 08:35 Oxygen Delivery Method Room Air Weight: 176 lb 12.972 oz Body Mass Index (BMI) 32.3 Intake and Output for Last 24 Hours 10/09/20 10/10/20 10/11/20 23:59 23:59 23:59 Intake Total 3178.33 / 3178.33 661.25 / 661.25 Output Total 1700 / 1700 Balance 1478.33 / 1478.33 661.25 / 661.25 General: Alert, Oriented x3, Cooperative HEENT: Atraumatic, PERRLA, EOMI, Normocephalic Neck: Supple, No JVD, Negative Carotid Bruits Lungs: Clear to auscultation, Normal air movement Cardiovascular: Regular rate, No murmurs Abdomen: Bowel Sounds Present, Soft, Non Tender Extremities: No edema, Capillary Refill Less than 3 Seconds Skin: No rashes, No breakdown Musculoskeletal: No Tenderness to Palpation of Joints or Extremities Neurological: Cranial nerves II-XII grossly intact Psych/Mental Status: Normal Affect, Appropriate, Alert and oriented to time, place, person, mood and affect Laboratory Results 10/10/20 16:38: POC Glucose 144 H 10/10/20 16:43: WBC 12.0 H, RBC 4.11 L, Hgb 12.8, Hct 38.9, MCV 94.6, MCH 31.1, MCHC 32.9, RDW Std Deviation 51.3 H, RDW Coeff of Luciano 14.7 H, Plt Count 208, MPV 10.2, Immature Gran % (Auto) 0.300, Neut % (Auto) 79.7 H, Lymph % (Auto) 11.9 L, [place] % (Auto) 7.3, Eos % (Auto) 0.5, Baso % (Auto) 0.3, Absolute Neuts (auto) 9.5 H, Absolute Lymphs (auto) 1.42, Nucleated RBC % 0 10/10/20 22:08: POC Glucose 167 H 10/11/20 05:59: WBC 11.3 H, RBC 3.48 L, Hgb 10.8 L, Hct 33.2 L, MCV 95.4, MCH 31.0, MCHC 32.5, RDW Std Deviation 51.6 H, RDW Coeff of Luciano 14.7 H, Plt Count 162, MPV 10.3, Immature Gran % (Auto) 0.400, Neut % (Auto) 77.7 H, Lymph % (Auto) 13.2 L, [place] % (Auto) 7.3, Eos % (Auto) 1.1, Baso % (Auto) 0.3, Absolute Neuts (auto) 8.8 H, Absolute Lymphs (auto) 1.49, Nucleated RBC % 0 10/11/20 05:59: Sodium 137, Potassium 3.9, Chloride 107, Carbon Dioxide 23.0, Anion Gap 7, BUN 15, Creatinine 1.20 H, Estim Creat Clear Calc 27.11, Est GFR (MDRD) Af Amer 55 L, Est GFR (MDRD) Non-Af 45 L, BUN/Creatinine Ratio 12.5, Glucose 151 H, Calcium 8.2 L 10/11/20 06:30: POC Glucose 160 H 10/11/20 11:37: POC Glucose 205 H Current Medications Acetaminophen (Acetaminophen 500 Mg Tablet) 500 mg PO BID [facility] Last Admin: 10/11/20 09:52 Dose: 500 mg Documented by: Allopurinol ([facility]op[facility]ol 100 Mg Tablet) [facility] Last Admin: 10/11/20 09:52 Dose: 100 mg Documented by: Cholecalciferol (Cholecalciferol (Vit D3) 1,000 Unit (25mcg)) 1,000 unit PO DAILY [facility] Last Admin: 10/11/20 09:52 Dose: 1,000 unit Documented by: Clotrimazole (Clotrimazole 1 Tube) 1 applicatio TOPICAL [facility]; Protocol Last Admin: 10/10/20 22:13 Dose: Not Given Documented by: Cyanocobalamin (Cyanocobalamin 500 Mcg Tablet) 1,000 mcg PO DAILY [facility] Last Admin: 10/11/20 09:52 Dose: 1,000 mcg Documented by: Dextrose (Dextrose 50%-Water 25 Gm/50 Ml Disp.Syrin) 0 gm IV X1 PRN; Protocol PRN Reason: Hypoglycemia Gemfibrozil (Gemfibrozil 600 Mg Tablet) 600 mg PO DAILY [facility] Last Admin: 10/11/20 09:52 Dose: 600 mg Documented by: Glucagon (Glucagon 1 Mg/Ml Syringe) 1 mg IM .X1 PRN PRN Reason: Hypoglycemia Hydrochlorothiazide (Hydrochlorothiazide 25 Mg Tablet) 25 mg PO DAILY [facility] Last Admin: 10/11/20 09:53 Dose: 25 mg Documented by: Metronidazole (Flagyl) 500 mg in 100 mls @ 100 mls/hr IV Q8 [facility] Last Infusion: 10/11/20 07:34 Dose: Infused Documented by: Ciprofloxacin (Cipro) 400 mg in 200 mls @ 200 mls/hr IV Q24@2200 [facility] Last Infusion: 10/10/20 23:05 Dose: Infused Documented by: Sodium Chloride () 1,000 mls @ 75 mls/hr IV .[id number] [facility] Last Infusion: 10/11/20 07:34 Dose: 75 mls/hr Documented by: Sodium Chloride () 250 mls @ 15 mls/hr IV .[id number] PRN PRN Reason: Saline Flush Sodium Chloride () 250 mls @ 15 mls/hr IV .[id number] PRN PRN Reason: Additional IVPB Infusion Insulin Glargine (Insulin Glargine 100 Units/Ml Pen) 10 units SC QHS [facility] Last Admin: 10/10/20 22:11 Dose: 10 u Documented by: Insulin Human Lispro (Insulin Lispro 100 Unit/Ml Insuln.Pen) 0 unit SC ACHS [facility]; Protocol Last Admin: 10/11/20 11:40 Dose: 1 u Documented by: Lisinopril (Lisinopril 2.5 Mg Tablet) 2.5 mg PO DAILY [facility] Last Admin: 10/11/20 09:53 Dose: 2.5 mg Documented by: Melatonin (Melatonin 3 Mg Tablet) 3 mg PO QHS PRN PRN PRN Reason: INSOMNIA Metoprolol Tartrate (Metoprolol Tartrate 25 Mg Tablet) 25 mg PO BID [facility] Last Admin: 10/11/20 09:52 Dose: 25 mg Documented by: Morphine Sulfate (Morphine 2 Mg/Ml Syringe) 1 mg IV Q3H PRN PRN PRN Reason: Pain Score 6-10 Ondansetron HCl (Ondansetron 4 Mg/2 Ml Vial) 4 mg IV Q8H PRN PRN PRN Reason: NAUSEA/VOMITING Pramipexole Dihydrochloride (Pramipexole Di-Hcl 0.25 Mg Tablet) 0.25 mg PO QHS [facility] Last Admin: 10/10/20 21:03 Dose: 0.25 mg Documented by: Pravastatin Sodium (Pravastatin 80 Mg Tablet) 80 mg PO QHS [facility] Last Admin: 10/10/20 21:03 Dose: 80 mg Documented by: Sodium Chloride (0.9% Saline Lock 10 Ml Syringe) 10 - 40 ml IV UD PRN PRN Reason: SALINE FLUSH Spironolactone (Spironolactone 25 Mg Tablet) 25 mg PO DAILY [facility] Last Admin: 10/11/20 09:53 Dose: 25 mg Documented by: Discharge Diet: Low fat/ Low Cholesterol, 2000 mg Sodium Diet Discharge Activity: Return to Normal Activity Home Medications: Medications to take at Discharge Gemfibrozil [Lopid] 600 mg PO QHS 02/24/17 Lisinopril [Zestril] 2.5 mg PO DAILY 02/24/17 Metoprolol Tartrate [Lopressor (beta sandor)] 25 mg PO BID 02/24/17 Pramipexole Di-HCl [Mirapex] 0.25 mg PO QHS 02/24/17 Pravastatin Sodium 80 mg PO QHS 02/24/17 Spironolact/Hydrochlorothiazid [Aldactazide 50-50 Tablet] 0.5 tab PO DAILY 02/24/17 glipiZIDE XL [Glucotrol Xl] 5 mg PO DAILY 02/24/17 Acetaminophen [Tylenol] 500 mg PO BID 10/10/20 Allopurinol [Zyloprim] 100 mg PO BIDCM 10/10/20 Aspirin [Aspirin, Baby] 81 mg PO QHS 10/10/20 Cholecalciferol (Vitamin D3) [Vitamin D3] 10 mcg PO DAILY 10/10/20 Clotrimazole [Clotrimazole AF] 1 applic TOPICAL [facility] 10/10/20 Cyanocobalamin (Vitamin B-12) [Vitamin B-12] 1,000 mcg PO DAILY 10/10/20 Insulin Glargine [Lantus SoloStar Pen] 34 units SQ QHS 10/10/20 Insulin Lispro [Insulin Lispro Kwikpen U-100] 6 unit SQ BIDCM 10/10/20 Ciprofloxacin [Cipro] 500 mg PO BID #14 tab 10/11/20 Metronidazole [Flagyl] 500 mg PO TID #21 tab 10/11/20 Following Prescriptions Were Given to Patient: Ciprofloxacin [Cipro] 500 mg PO BID #14 tab Transmission Status: Received by [id number] Metronidazole [Flagyl] 500 mg PO TID #21 tab Transmission Status: Received by [id number] Primary Care Physician: Favio Landis MD [Primary Care Provider] - Please follow up with your Primary Care Physician in: 1-2 weeks Disposition: Home Minutes spent on discharge:: 35 Patient Condition:: Stable Medical Necessity - Tobacco Use Smoking Status: Former smoker Meaningful Use Info Meaningful Use Diagnoses (Choose all that apply): None applicable <Piter Hester - Last Filed: 10/11/20 12:47> Discharge Date and Diagnosis - Primary Discharge Diagnosis Acute Problems: Active Problems Acute diverticulitis of intestine (Acute) Diverticular hemorrhage (Acute) - Secondary Discharge Diagnosis Chronic Problems: Chronic Problems Type 2 diabetes mellitus (Chronic) Dyslipidemia (Chronic) Essential hypertension (Chronic) HTN (hypertension) (Chronic) Cervical cancer (Chronic) Obesity (BMI 30.0-34.9) (Chronic) CKD (chronic kidney disease), stage IV (Chronic) Hospital Course and Treatment Operations: None Procedures: None Summary of Care Provided: Patient seen and examined independently. Data reviewed. I agree with the above note by the physician pharmacist assistant. The patient is a 85 year old F presents with angelique pain and hematochezia. Patient was found to have acute diverticulitis. Patient started on antibiotics with ciprofloxacin and metronidazole. Diet was slowly advanced and tolerated that well. Patient did have some bleeding and hemoglobin dropped down to 10.8 but remained stable. Bleeding was likely with diverticulitis and/or diverticulosis. Patient states that she is overdue for colonoscopy anyways. Advised patient to follow-up with either general surgery or GI for outpatient colonoscopy next month or 2. [] - Physical Exam Vitals/I&O's: Vital Signs Temp Pulse Resp BP Pulse Ox 36.7 C 80 14 108/39 L 95 10/11/20 08:35 10/11/20 09:52 10/11/20 08:35 10/11/20 08:35 10/11/20 08:35 Oxygen Delivery Method Room Air Weight: 80.2 kg Body Mass Index (BMI) 32.3 Intake and Output for Last 24 Hours 10/09/20 10/10/20 10/11/20 23:59 23:59 23:59 Intake Total 3178.33 / 3178.33 661.25 / 661.25 Output Total 1700 / 1700 Balance 1478.33 / 1478.33 661.25 / 661.25 General: Alert, Cooperative HEENT: Atraumatic, Normocephalic Lungs: Clear to auscultation, Normal air movement, No rhonchi, No wheeze Cardiovascular: Regular rate, Regular Rhythm, Normal S1, Normal S2, No murmurs Abdomen: Bowel Sounds Present, Soft, Non Tender, Non-Distended Extremities: No edema, No Calf Tenderness Skin: No rashes, No breakdown Psych/Mental Status: Normal Affect, Appropriate Laboratory Results 10/10/20 16:38: POC Glucose 144 H 10/10/20 16:43: WBC 12.0 H, RBC 4.11 L, Hgb 12.8, Hct 38.9, MCV 94.6, MCH 31.1, MCHC 32.9, RDW Std Deviation 51.3 H, RDW Coeff of Luciano 14.7 H, Plt Count 208, MPV 10.2, Immature Gran % (Auto) 0.300, Neut % (Auto) 79.7 H, Lymph % (Auto) 11.9 L, [place] % (Auto) 7.3, Eos % (Auto) 0.5, Baso % (Auto) 0.3, Absolute Neuts (auto) 9.5 H, Absolute Lymphs (auto) 1.42, Nucleated RBC % 0 10/10/20 22:08: POC Glucose 167 H 10/11/20 05:59: WBC 11.3 H, RBC 3.48 L, Hgb 10.8 L, Hct 33.2 L, MCV 95.4, MCH 31.0, MCHC 32.5, RDW Std Deviation 51.6 H, RDW Coeff of Luciano 14.7 H, Plt Count 162, MPV 10.3, Immature Gran % (Auto) 0.400, Neut % (Auto) 77.7 H, Lymph % (Auto) 13.2 L, [place] % (Auto) 7.3, Eos % (Auto) 1.1, Baso % (Auto) 0.3, Absolute Neuts (auto) 8.8 H, Absolute Lymphs (auto) 1.49, Nucleated RBC % 0 10/11/20 05:59: Sodium 137, Potassium 3.9, Chloride 107, Carbon Dioxide 23.0, Anion Gap 7, BUN 15, Creatinine 1.20 H, Estim Creat Clear Calc 27.11, Est GFR (MDRD) Af Amer 55 L, Est GFR (MDRD) Non-Af 45 L, BUN/Creatinine Ratio 12.5, Glucose 151 H, Calcium 8.2 L 10/11/20 06:30: POC Glucose 160 H 10/11/20 11:37: POC Glucose 205 H Current Medications Acetaminophen (Acetaminophen 500 Mg Tablet) 500 mg PO BID [facility] Last Admin: 10/11/20 09:52 Dose: 500 mg Documented by: Allopurinol (Allopurinol 100 Mg Tablet) 100 mg PO BIDCM [facility] Last Admin: 10/11/20 09:52 Dose: 100 mg Documented by: Cholecalciferol (Cholecalciferol (Vit D3) 1,000 Unit (25mcg)) 1,000 unit PO DAILY [facility] Last Admin: 10/11/20 09:52 Dose: 1,000 unit Documented by: Clotrimazole (Clotrimazole 1 Tube) 1 applicatio TOPICAL QHS [facility]; Protocol Last Admin: 10/10/20 22:13 Dose: Not Given Documented by: Cyanocobalamin (Cyanocobalamin 500 Mcg Tablet) 1,000 mcg PO DAILY [facility] Last Admin: 10/11/20 09:52 Dose: 1,000 mcg Documented by: Dextrose (Dextrose 50%-Water 25 Gm/50 Ml Disp.Syrin) 0 gm IV X1 PRN; Protocol PRN Reason: Hypoglycemia Gemfibrozil (Gemfibrozil 600 Mg Tablet) 600 mg PO DAILY [facility] Last Admin: 10/11/20 09:52 Dose: 600 mg Documented by: Glucagon (Glucagon 1 Mg/Ml Syringe) 1 mg IM .X1 PRN PRN Reason: Hypoglycemia Hydrochlorothiazide (Hydrochlorothiazide 25 Mg Tablet) 25 mg PO DAILY [facility] Last Admin: 10/11/20 09:53 Dose: 25 mg Documented by: Metronidazole (Flagyl) 500 mg in 100 mls @ 100 mls/hr IV Q8 [facility] Last Infusion: 10/11/20 07:34 Dose: Infused Documented by: Ciprofloxacin (Cipro) 400 mg in 200 mls @ 200 mls/hr IV Q24@2200 [facility] Last Infusion: 10/10/20 23:05 Dose: Infused Documented by: Sodium Chloride () 1,000 mls @ 75 mls/hr IV .[id number] [facility] Last Infusion: 10/11/20 07:34 Dose: 75 mls/hr Documented by: Sodium Chloride () 250 mls @ 15 mls/hr IV .[id number] PRN PRN Reason: Saline Flush Sodium Chloride () 250 mls @ 15 mls/hr IV .[id number] PRN PRN Reason: Additional IVPB Infusion Insulin Glargine (Insulin Glargine 100 Units/Ml Pen) [facility] Last Admin: 10/10/20 22:11 Dose: 10 u Documented by: Insulin Human Lispro (Insulin Lispro 100 Unit/Ml Insuln.Pen) 0 unit SC [facility]; Protocol Last Admin: 10/11/20 11:40 Dose: 1 u Documented by: Lisinopril (Lisinopril 2.5 Mg Tablet) 2.5 mg PO DAILY [facility] Last Admin: 10/11/20 09:53 Dose: 2.5 mg Documented by: Melatonin (Melatonin 3 Mg Tablet) 3 mg PO QHS PRN PRN PRN Reason: INSOMNIA Metoprolol Tartrate (Metoprolol Tartrate 25 Mg Tablet) 25 mg PO BID [facility] Last Admin: 10/11/20 09:52 Dose: 25 mg Documented by: Morphine Sulfate (Morphine 2 Mg/Ml Syringe) 1 mg IV Q3H PRN PRN PRN Reason: Pain Score 6-10 Ondansetron HCl (Ondansetron 4 Mg/2 Ml Vial) 4 mg IV Q8H PRN PRN PRN Reason: NAUSEA/VOMITING Pramipexole Dihydrochloride (Pramipexole Di-Hcl 0.25 Mg Tablet) 0.25 mg PO QHS [facility] Last Admin: 10/10/20 21:03 Dose: 0.25 mg Documented by: Pravastatin Sodium (Pravastatin 80 Mg Tablet) 80 mg PO QHS [facility] Last Admin: 10/10/20 21:03 Dose: 80 mg Documented by: Sodium Chloride (0.9% Saline Lock 10 Ml Syringe) 10 - 40 ml IV UD PRN PRN Reason: SALINE FLUSH Spironolactone (Spironolactone 25 Mg Tablet) 25 mg PO DAILY [facility] Last Admin: 10/11/20 09:53 Dose: 25 mg Documented by: Discharge Diet: Low fat/ Low Cholesterol, 2000 mg Sodium Diet Discharge Activity: Return to Normal Activity Disposition: Home Minutes spent on discharge:: 35 Patient Condition:: Stable Medical Necessity - Tobacco Use Smoking Status: Former smoker Meaningful Use Info Meaningful Use Diagnoses (Choose all that apply): None applicable Inpatient E&M: 32460 Disch Hosp
[2020-10-11 15:45] VITALS: BP 109/51; PULSE 69; RESP 14; TEMP 36.6; O2SAT 94
[2020-10-11 18:46] LABS: Bedside Glucose 155 mg/dL (70-110)
== END 2020-10-11 17:44 | disposition home or self-care (01) | DRG 378 ==
LOC: ED 10-10 01:06 → MS3 10-10 07:05
PROVIDERS: Physician Assistant; Admitting Provider Hospitalist; Emergency Provider Emergency Medicine; PCP Family Medicine
DX: K57.33 Diverticulitis of large intestine without perforation or abscess with bleeding (principal); E11.22 Type 2 diabetes mellitus with diabetic chronic kidney disease; I12.9 Hypertensive chronic kidney disease with stage 1 through stage 4 chronic kidney disease, or unspecified chronic kidney disease; E11.65 Type 2 diabetes mellitus with hyperglycemia; N18.4 Chronic kidney disease, stage 4 (severe); E87.8 Other disorders of electrolyte and fluid balance, not elsewhere classified; C53.9 Malignant neoplasm of cervix uteri, unspecified; E78.5 Hyperlipidemia, unspecified; K59.00 Constipation, unspecified; E66.9 Obesity, unspecified; Z79.4 Long term (current) use of insulin; Z79.82 Long term (current) use of aspirin; Z79.899 Other long term (current) drug therapy; Z85.41 Personal history of malignant neoplasm of cervix uteri; Z87.891 Personal history of nicotine dependence
CPT/HCPCS: 36415; 74176; 80048; 80053; 82962; 85025; 85610; 85730; 96361; 96365; 96366; 96367; 99218; 99283; J7030; A4216; G0378; J0744

== ENCOUNTER 2023-09-02 11:22 | Emergency (ER) | payer MEDICARE, SELFPAY ==
[2023-09-02 11:23] VITALS: BP 119/64; PULSE 65; RESP 16; TEMP 36.3; O2SAT 94
[2023-09-02 11:34] VITALS: BP 117/77; PULSE 60; RESP 20; O2SAT 99
--- NOTE | 2023-09-02 11:34 | EKG12_ITS ---
Test Reason : DIZZY Blood Pressure : / mmHG Vent. Rate : 061 BPM Atrial Rate : 061 BPM P-R Int : 288 ms QRS Dur : 078 ms QT Int : 426 ms P-R-T Axes : 079 -02 029 degrees QTc Int : 428 ms Sinus rhythm with 1st degree A-V block Otherwise normal ECG Confirmed by LEENA SALOMON, CHRIS ([id number]), proposal editor ARNOLD SPANN ([id number]) on 09/05/2023 1:33:49 P M Referred By: DANIEL/BORIS Confirmed By:JAVID STERN MD
--- NOTE | 2023-09-02 11:36 | EX.ED.DYSGE1 ---
HPI <DENISE Bo - Last Filed: 09/02/23 13:49> History of Present Illness Chief Complaint: Dizziness Narrative Narrative: Patient is an 88-year-old female with history of hypertension, CKD, diabetes, neuropathy who presents to the emergency department with a feeling of dizziness, room spinning sensation. Patient dates while she was laying in bed, she did not have any sensation. When she got up at around 9:30 AM she is noticed that the room was moving. Patient states he got a slight feeling of nauseous. She did have some dry heaves however did not actually vomit. Patient she grabbed her cane, and had difficulty ambulating. After she sat for a while she got up again and had something similar and she is here for evaluation. She denies any headache, she denies any chest pain shortness of breath. She denies any infectious-like symptoms. She states she has not had some of this before. She denies any upper or lower extremity weakness. [facility] <DENISE Bo - Last Filed: 09/02/23 13:49> [facility] Medical History (Updated 09/02/23 @ 13:48 by DENISE Bo) Cervical cancer Diverticular hemorrhage DM II (diabetes mellitus, type II), controlled Dyslipidemia HTN (hypertension) Home Medications gemfibrozil 600 mg tablet 600 mg PO QHS cholesterol 02/24/17 [History Last Taken 10/08/20] glipizide 5 mg tablet, extended release 24 hr 5 mg PO DAILY DM 02/24/17 [History Last Taken 10/09/20] lisinopril 2.5 mg tablet 2.5 mg PO DAILY hypertension 02/24/17 [History Last Taken 10/09/20] metoprolol tartrate 25 mg tablet 25 mg PO BID HTN 02/24/17 [History Last Taken 10/09/20] pramipexole 0.25 mg tablet 0.25 mg PO QHS restless legs 02/24/17 [History Last Taken 10/08/20] pravastatin 80 mg tablet 80 mg PO QHS cholesterol 02/24/17 [History Last Taken 10/08/20] spironolactone 50 mg-hydrochlorothiazide 50 mg tablet (Aldactazide) 0.5 tab PO DAILY HTN 02/24/17 [History Last Taken 10/09/20] acetaminophen 500 mg tablet 500 mg PO BID pain 10/10/20 [History Last Taken 10/09/20] allopurinol 100 mg tablet 100 mg PO BIDCM gout 10/10/20 [History Last Taken 10/09/20] aspirin 81 mg chewable tablet 81 mg PO QHS heart health 10/10/20 [History Last Taken 10/08/20] cholecalciferol (vitamin D3) 10 mcg (400 unit) tablet 10 mcg PO DAILY supplment 10/10/20 [History Last Taken 10/09/20] clotrimazole 1 % topical cream 1 applic topical Q foot skin health 10/10/20 [History Last Taken Unknown] cyanocobalamin (vitamin B-12) 1,000 mcg capsule 1,000 mcg PO DAILY supplement 10/10/20 [History Last Taken 10/09/20] insulin glargine 100 unit/mL (3 mL) subcutaneous pen 34 units SQ QHS diabetes 10/10/20 [History Last Taken 10/08/20] insulin lispro 100 unit/mL subcutaneous pen 6 unit SQ BID diabetes 10/10/20 [History Last Taken 10/09/20] ciprofloxacin HCl 500 mg tablet 500 mg PO BID #14 tabs 10/11/20 [Rx Last Taken Unknown] metronidazole 500 mg tablet 500 mg PO TID #21 tabs 10/11/20 [Rx Last Taken Unknown] cephalexin 500 mg capsule 500 mg PO TID 7 days #21 caps 09/02/23 [Rx Last Taken Unknown] meclizine 25 mg tablet 25 mg PO 4X/DAY PRN PRN Dizziness #20 tabs 09/02/23 [Rx Last Taken Unknown] ondansetron 4 mg disintegrating tablet 4 mg PO Q8H PRN PRN Nausea #10 tabs 09/02/23 [Rx Last Taken Unknown] Allergy/AdvReac Type Severity Reaction Status Date / Time No Known Allergies Allergy Verified 09/02/23 11:22 Social History Smoking Status: Former smoker ROS <DENISE Bo - Last Filed: 09/02/23 13:49> ROS ED ROS Narrative Constitutional: Negative for fever, chills, weight loss, weakness Eyes: Negative for vision loss, vision change, double vision ENT: Negative for any sore throat, ear pain, congestion Cardiovascular: Negative for any chest pain, tightness, palpitations Respiratory: Negative for any cough, sputum production, hemoptysis, dyspnea, dyspnea on exertion, orthopnea Gastrointestinal: Negative for any abdominal pain, diarrhea, constipation, blood in stool, blood in vomit. Positive for nausea and vomiting : Negative for any urinary frequency, dysuria, retention, blood in urine Muscle skeletal: Negative for any myalgias, arthralgias, neck pain, back pain Neurological: Negative for any headache, syncope, numbness or tingling. Positive for feeling of room spinning Skin: Negative for any rashes, lumps, itching, abrasions, lacerations Psychiatric: Negative for any depression, anxiety, stress, suicidal ideation, homicidal ideation Hematologic: Negative for any easy bruising, excessive bruising, easy bleeding Allergies: Negative for any eczema, hives, rash EXAM <DENISE Bo - Last Filed: 09/02/23 13:49> Physical Exam Narrative Exam Narrative: Vital signs reviewed. Patient alert and orient x 4 acting appropriate. As long as the patient is sitting still, she states she is asymptomatic HEET: Head normocephalic atraumatic, TMs clear bilaterally. Posterior pharynx is clear, moist mucous membranes. Nares clear bilaterally. Neck: Supple with no lymphadenopathy or tenderness. No signs of meningismus. Cardiac: Regular rate and rhythm no murmurs gallops or rubs, equal peripheral pulses bilaterally. Respiratory: Lungs clear to auscultation bilaterally. No chest tenderness. Abdomen: Soft, nontender, nondistended. No abdominal bruit or pulsatile masses. No hepatosplenomegaly Extremities: No peripheral edema, no signs of gross trauma or deformity. Active full range of motion of all extremities. Neuro: Cranial nerves II through XII intact, no focal neurological deficits. NIH stroke score 0. [place]-Hallpike was positive, patient had horizontal nystagmus worse to the right than the left. This did exhibit some nausea. Skin: Clean dry and intact with no rash, purpura, petechiae, vesicles or pustules. Backs/flank: No CVA tenderness, no midline spinal tenderness, no deformity. Psych: Normal mood and affect. No SI, HI or acute psychosis. Const Vital Signs: 09/02/23 11:23 09/02/23 11:34 09/02/23 11:36 Temperature 97.4 F L Temperature Source Temporal Pulse Rate 65 60 Respiratory Rate 16 20 H Respiratory Effort Normal Non-Labored Respiratory Pattern Normal Blood Pressure 119/64 117/77 Blood Pressure Mean 82 90 Pulse Ox 94 99 Oxygen Delivery Method Room Air Room Air 09/02/23 12:22 09/02/23 13:00 Temperature Temperature Source Pulse Rate 61 59 L Respiratory Rate 17 18 Respiratory Effort Respiratory Pattern Blood Pressure 104/67 105/57 L Blood Pressure Mean 79 73 Pulse Ox 98 99 Oxygen Delivery Method Room Air Room Air Positive well nourished and well developed General Appearance ED: well developed <Dr. Simon Rivera DO - Last Filed: 09/02/23 16:52> Physical Exam Const Vital Signs: 09/02/23 11:23 09/02/23 11:34 09/02/23 11:36 Temperature 97.4 F L Temperature Source Temporal Pulse Rate 65 60 Respiratory Rate 16 20 H Respiratory Effort Normal Non-Labored Respiratory Pattern Normal Blood Pressure 119/64 117/77 Blood Pressure Mean 82 90 Pulse Ox 94 99 Oxygen Delivery Method Room Air Room Air 09/02/23 12:22 09/02/23 13:00 Temperature Temperature Source Pulse Rate 61 59 L Respiratory Rate 17 18 Respiratory Effort Respiratory Pattern Blood Pressure 104/67 105/57 L Blood Pressure Mean 79 73 Pulse Ox 98 99 Oxygen Delivery Method Room Air Room Air MDM <DENISE Bo - Last Filed: 09/02/23 13:49> [facility] Lab Data Labs: Laboratory Results - last 24 hr 09/02/23 09/02/23 11:46 13:00 WBC 6.7 RBC 3.61 L Hgb 11.7 L Hct 34.5 L MCV 95.6 MCH 32.4 H MCHC 33.9 RDW Std Deviation 50.4 H RDW Coeff of Luciano 14.6 Plt Count 210 MPV 10.0 Immature Gran % (Auto) 0.300 Neut % (Auto) 66.6 Lymph % (Auto) 20.5 [place] % (Auto) 9.9 Eos % (Auto) 1.8 Baso % (Auto) 0.9 Absolute Neuts (auto) 4.4 Absolute Lymphs (auto) 1.37 Nucleated RBC % 0 Sodium 136 Potassium 4.1 Chloride 106 Carbon Dioxide 25.0 Anion Gap 5 BUN 31 H Creatinine 1.47 H Estim Creat Clear Calc 19.96 Est GFR (MDRD) Af Amer 43 L Est GFR (MDRD) Non-Af 36 L BUN/Creatinine Ratio 21.1 H Glucose 144 H Calcium 9.5 Urine Color Straw Urine Clarity Clear Urine pH 6.0 Ur Specific [place] 1.015 Urine Protein 15 H Urine Glucose (UA) Normal Urine Ketones Negative Urine Occult Blood 10 H Urine Nitrite Positive H Urine Bilirubin Negative Urine Urobilinogen Normal Ur Leukocyte Esterase 500 H Urine RBC 0 SEEN Urine WBC 50-100 SEEN Ur Squamous Epith Cells 0-5 SEEN Urine Bacteria 2+ Urine Mucus 0 SEEN Radiography Diagnostic Testing: Clinical Impression(s) from Imaging Studies Brain CT 09/02/23 11:55 IMPRESSION: 1. No acute intracranial process. 2. Chronic involutional changes of the brain. Electronically Signed: Garcia Cooper MD at 12:18 EST , EKG Sinus rhythm with first-degree AV block: Attestation: I personally reviewed and interpreted this EKG as follows: Comments: 61 bpm, IL interval 288 ms, QRS duration 78 ms, no acute ST elevation, no acute infarct noted Treatment and Re-Evaluation :: Patient appears to be in no obvious respiratory distress, vital signs are stable, patient while sitting still is asymptomatic. Presenting to the emergency department with a feeling of dizziness that started around 930 this morning while she was getting up out of bed. Differential diagnosis includes benign positional peripheral vertigo, central vertigo, CVA, dehydration, electrolyte abnormalities. Patient received laboratory values looking for any leukocytosis, electrolyte abnormalities, urinalysis to ensure there is no urinary infection. Patient will receive a CT scan of the brain to rule out any obvious intracranial hemorrhage. Patient will receive IV fluids, IV Zofran. All radiologic examinations were read, reviewed by the emergency department attending. From these reads, a plan of care will be put in place. Patient's laboratory studies show a normal CBC, patient's chemistries showed a creatinine of 1.47, patient over the last 3 to 4 years has been anywhere between 1.5-1.2. Patient structured to maintain hydration, she was given 1 L of normal saline here. Blood glucose was 144. Patient CT scan of the brain showed no acute process. EKG was unremarkable, there is no evidence suspect any cardiac involvement. After oral meclizine, Zofran, fluids, patient was able to ambulate with a walker, she did well. She states she feels slightly dizzy however she is improved. At this time, patient be diagnosed benign peripheral positional vertigo. Patient will be given Tono maneuvers to do at home. Patient is happy the plan of care, patient stable for discharge. Prior to discharge, patient did receive a urinalysis, urine culture will be sent. Urine did show infection with 2+ bacteria, positive nitrates. Patient will be starting Keflex. Placed on Keflex 2 times a day for a week. Instructed return for any worsening symptoms. This could also be affecting the patient's dizziness. Spoke with the patient, the patient's daughter, all questions answered stable for discharge <Dr. Simon Rivera, DO - Last Filed: 09/02/23 16:52> [facility] Lab Data Attestation: I reviewed the patient's lab results. Labs: Laboratory Results - last 24 hr 09/02/23 09/02/23 11:46 13:00 WBC 6.7 RBC 3.61 L Hgb 11.7 L Hct 34.5 L MCV 95.6 MCH 32.4 H MCHC 33.9 RDW Std Deviation 50.4 H RDW Coeff of Luciano 14.6 Plt Count 210 MPV 10.0 Immature Gran % (Auto) 0.300 Neut % (Auto) 66.6 Lymph % (Auto) 20.5 [place] % (Auto) 9.9 Eos % (Auto) 1.8 Baso % (Auto) 0.9 Absolute Neuts (auto) 4.4 Absolute Lymphs (auto) 1.37 Nucleated RBC % 0 Sodium 136 Potassium 4.1 Chloride 106 Carbon Dioxide 25.0 Anion Gap 5 BUN 31 H Creatinine 1.47 H Estim Creat Clear Calc 19.96 Est GFR (MDRD) Af Amer 43 L Est GFR (MDRD) Non-Af 36 L BUN/Creatinine Ratio 21.1 H Glucose 144 H Calcium 9.5 Urine Color Straw Urine Clarity Clear Urine pH 6.0 Ur Specific [place] 1.015 Urine Protein 15 H Urine Glucose (UA) Normal Urine Ketones Negative Urine Occult Blood 10 H Urine Nitrite Positive H Urine Bilirubin Negative Urine Urobilinogen Normal Ur Leukocyte Esterase 500 H Urine RBC 0 SEEN Urine WBC 50-100 SEEN Ur Squamous Epith Cells 0-5 SEEN Urine Bacteria 2+ Urine Mucus 0 SEEN Radiography Diagnostic Testing: Clinical Impression(s) from Imaging Studies Brain CT 09/02/23 11:55 IMPRESSION: 1. No acute intracranial process. 2. Chronic involutional changes of the brain. Electronically Signed: Garcia Cooper MD at 12:18 EST , Treatment and Re-Evaluation :: Patient appears to be in no obvious respiratory distress, vital signs are stable, patient while sitting still is asymptomatic. Presenting to the emergency department with a feeling of dizziness that started around 930 this morning while she was getting up out of bed. Differential diagnosis includes benign positional peripheral vertigo, central vertigo, CVA, dehydration, electrolyte abnormalities. Patient received laboratory values looking for any leukocytosis, electrolyte abnormalities, urinalysis to ensure there is no urinary infection. Patient will receive a CT scan of the brain to rule out any obvious intracranial hemorrhage. Patient will receive IV fluids, IV Zofran. All radiologic examinations were read, reviewed by the emergency department attending. From these reads, a plan of care will be put in place. Patient's laboratory studies show a normal CBC, patient's chemistries showed a creatinine of 1.47, patient over the last 3 to 4 years has been anywhere between 1.5-1.2. Patient structured to maintain hydration, she was given 1 L of normal saline here. Blood glucose was 144. Patient CT scan of the brain showed no acute process. EKG was unremarkable, there is no evidence suspect any cardiac involvement. After oral meclizine, Zofran, fluids, patient was able to ambulate with a walker, she did well. She states she feels slightly dizzy however she is improved. At this time, patient be diagnosed benign peripheral positional vertigo. Patient will be given Tono maneuvers to do at home. Patient is happy the plan of care, patient stable for discharge. Prior to discharge, patient did receive a urinalysis, urine culture will be sent. Urine did show infection with 2+ bacteria, positive nitrates. Patient will be starting Keflex. Placed on Keflex 2 times a day for a week. Instructed return for any worsening symptoms. This could also be affecting the patient's dizziness. Spoke with the patient, the patient's daughter, all questions answered stable for discharge I have personally performed a face to face assessment of the patient and have reviewed the CORY Note. I performed a substantive portion of the visit including all aspects of the following. My ponce findings include: History is patient this morning to get out of bed went to the bathroom. She felt dizzy/lightheaded. She felt a little clammy but her blood sugar was normal. She had a bowel movement. She states now when she moves her eyes she feels that the room is spinning. She denies any recent ear infections/sinus infections. No prior history of vertigo but states her did have vertigo she is she has some knowledge of it. No arm or leg symptoms. No speech difficulty. Exam is NIH 0. No significant nystagmus noted. Medical Decison Making patient received meclizine fluids and Zofran. Urinalysis does show some UTI which we will treat with Keflex. We talked about repositioning techniques and follow-up. She is able to ambulate without difficulty return if worsening or concerns Discharge Plan Triage Chief Complaint: Dizziness ED Midlevel Provider: Charanjit Zhang ED Provider: Simon Rivera Dx/Rx/DC Orders Clinical Impression: Vertigo, UTI (urinary tract infection) Instructions: Urinary Tract Infections in Women, ED BPV Vertigo Prescriptions: New ondansetron 4 mg tablet,disintegrating 4 mg PO Q8H PRN PRN (Reason: Nausea) Qty: 10 0RF meclizine 25 mg tablet 25 mg PO 4X/DAY PRN PRN (Reason: Dizziness) Qty: 20 0RF cephalexin 500 mg capsule 500 mg PO TID 7 Days Qty: 21 0RF No Action glipizide 5 MG tablet 5 mg PO DAILY Patient Comments: pravastatin 80 MG tablet 80 mg PO QHS Patient Comments: gemfibrozil 600 MG tablet 600 mg PO QHS Patient Comments: pramipexole 0.25 MG tablet 0.25 mg PO QHS lisinopril 2.5 MG tablet 2.5 mg PO DAILY Patient Comments: spironolacton-hydrochlorothiaz [Aldactazide] 1 EACH tablet 0.5 tab PO DAILY metoprolol tartrate 25 MG tablet 25 mg PO BID Patient Comments: insulin glargine 100 UNITS/ML insulin pen 34 units SQ QHS Patient Comments: Inject 50 Units subcutaneously daily at bedtime. allopurinol 100 MG tablet 100 mg PO BIDCM acetaminophen 500 MG tablet 500 mg PO BID aspirin 81 MG tablet,chewable 81 mg PO QHS cholecalciferol (vitamin D3) 10 MCG tablet 10 mcg PO DAILY insulin lispro 100 UNIT/ML insulin pen 6 unit SQ BIDCM cyanocobalamin (vitamin B-12) 1,000 MCG capsule 1,000 mcg PO DAILY clotrimazole 28 GM cream 1 applic TOPICAL QHS metronidazole 500 MG tablet 500 mg PO TID Qty: 21 0RF Rx Instructions: next dose tonight 10/11 ciprofloxacin HCl 500 MG tablet 500 mg PO BID Qty: 14 0RF Rx Instructions: next dose tonight 10/11 Primary Care Provider: Maik Fay Referrals: Maik Fay MD [[facility]] - Activity Restrictions/Additional Instructions: Ensure that you change positions slowly. Take medicine as needed. Follow-up outpatient Disposition Disposition: Home, Self Care Discharge Date/Time: 09/02/23 13:59
[2023-09-02 11:37] VITALS: BMI 31.9
[2023-09-02] MEDS: Meclizine HCl 25 MG Tablet PO (11:42)
[2023-09-02] MEDS: Ondansetron 4 MG/2 ML Vial IV (11:43)
[2023-09-02] MEDS: 0.9% Normal Saline (1000mL) 1,000 ML 1000 ML IV (11:49)
[2023-09-02 11:55] LABS: Absolute Lymphocyte Count 1.37 X10^3/uL (0.83-4.51); Absolute Neutrophil Count 4.4 X10^3/uL (2.0-7.7); Basophil# 0.06 X10^3/uL; Basophil% 0.9 % (0-1); Eosinophil# 0.12 X10^3/uL; Eosinophils% 1.8 % (0-5); Hematocrit 34.5 % (37-47); Hemoglobin 11.7 g/dL (12.0-15.0); Lymphocyte # 1.37 X10^3/ul (0.83-4.51); Lymphocyte % 20.5 % (19-41); Mean Corp Hgb Conc 33.9 g/dL (32-36); Mean Corpuscular Hgb 32.4 pg (27.0-32.0); Mean Corpuscular Volume 95.6 fL (81-99); Monocyte# 0.66 X10^3/uL; Monocyte% 9.9 % (0-10); NRBC Flagged by Analyzer 0 % (0-5); Neutrophil # 4.44 X10^3/uL (2.7-7.7); Neutrophil % 66.6 % (47-70); Platelet Count 210 K/mm3 (150-450); RBC Distribution Width CV 14.6 % (11.6-14.6); RBC Distribution Width SD 50.4 fl (35.1-43.9); Red Blood Count 3.61 M/mm3 (4.2-5.4); White Blood Count 6.7 K/mm3 (4.4-11.0)
--- NOTE | 2023-09-02 11:55 | CT_ITS ---
INDICATION: vertigo EXAMINATION: CT BRAIN - CT Head or Brain W/O Contrast Injection TECHNIQUE: Multiple axial images were obtained of the head without intravenous contrast. A radiation dose optimization technique was used for this scan. IV Contrast dosage and agent: None. RADIATION DOSAGE (If Supplied By Facility): CTDIvol = ( 44.99 ) mGy, DLP = ( 779.24 ) mGycm COMPARISON: Prior study dated: 06/26/2019. FINDINGS: BRAIN PARENCHYMA: No intra- or extra-axial hemorrhage. No evidence of acute infarct. No intracranial mass or mass effect. There is preservation of the isabel/white matter interface. Periventricular deep white matter changes likely due to chronic microvascular disease. Posterior fossa structures are unremarkable. Atherosclerotic calcifications of the cavernous internal carotid arteries. CSF SPACES: Appropriate for age. No hydrocephalus. Basal cisterns are patent. CALVARIUM, SKULL BASE, PARANASAL SINUSES AND MASTOID AIR CELLS: Clear. No discrete lytic or blastic abnormalities. ORBITS: Both globes, extraocular muscles, optic nerves and retrobulbar fat appear unremarkable. CT/Brain/Head without Contrast IMPRESSION: 1. No acute intracranial process. 2. Chronic involutional changes of the brain. Electronically Signed: Garcia Cooper MD at 12:18 EST ,
[2023-09-02 12:08] LABS: Anion Gap 5 (5-15); BUN 31 mg/dL (7-18); BUN/Creat Ratio 21.1 RATIO (10-20); Calcium,Total 9.5 mg/dL (8.5-10.1); Chloride 106 mmol/L (98-107); Creatinine, Serum 1.47 mg/dL (0.55-1.02); EST Glomerular Filtration Rate 36 mL/min (>60); Est Glom Filt Rate - Afr Amer 43 mL/min (>60); Estimated Creatinine Clearance 19.96 ml/min; Glucose 144 mg/dL (74-106); Potassium 4.1 mmol/L (3.5-5.1); Sodium Level 136 mmol/L (136-145)
[2023-09-02 12:22] VITALS: BP 104/67; PULSE 61; RESP 17; O2SAT 98
[2023-09-02 13:00] VITALS: BP 105/57; PULSE 59; RESP 18; O2SAT 99
[2023-09-02 13:07] LABS: Mucous, Urine 0 SEEN /hpf (<or=2+); Red Blood Cells-Urine 0 SEEN /hpf (0-5)
[2023-09-02 13:13] LABS: Color, Urine Straw (Yellow); Glucose, Dipstick Normal (Normal); Ketone-Dipstick Negative (Negative); Leukocyte Esterase-Dipstick 500 /ul (Negative); Nitrite-Dipstick Positive (Negative); Occult Blood-Urine 10 /ul (Negative); Protein-Dipstick 15 mg/dl (Negative); Specific Gravity, Urine 1.015 (1.002-1.030); Urine Bilirubin Dipstick Negative (Negative); Urine Clarity Clear (Clear); Urine Urobilinogen Normal (Normal)
[2023-09-02 13:34] LABS: Squamous Epithelial Cells - UA 0-5 SEEN /hpf (5-10); White Blood Cells 50-100 SEEN /hpf (0-5)
[2023-09-02 13:35] LABS: Bacteria 2+ /hpf (None Seen)
[2023-09-02] MEDS: Cephalexin 250 MG Capsule 500 MG PO (13:54)
== END 2023-09-02 13:59 | disposition home or self-care (01) ==
PROVIDERS: Nurse Practitioner; Emergency Provider Emergency Medicine; PCP Family Medicine; Visit Provider Emergency Medicine
DX: R42 Dizziness and giddiness (principal); E11.40 Type 2 diabetes mellitus with diabetic neuropathy, unspecified; E11.22 Type 2 diabetes mellitus with diabetic chronic kidney disease; N39.0 Urinary tract infection, site not specified; N18.9 Chronic kidney disease, unspecified; Z87.891 Personal history of nicotine dependence
CPT/HCPCS: 70450; 80048; 81001; 85025; 87077; 87086; 87088; 87186; 93005; 96361; 96374; 99284; J7030; A4216; J2405

== ENCOUNTER 2023-09-03 01:26 | Observation (INO) | payer MEDICARE, SELFPAY ==
[2023-09-03] VITALS (14 sets, daily range): BP systolic 96–123; BP diastolic 39–65; PULSE 50–72; RESP 13–24; TEMP 36.1–36.9; O2SAT 95–100; BMI 31.6; BMI 31.4
--- NOTE | 2023-09-03 01:32 | EX.ED.DYSGE1 ---
HPI History of Present Illness Chief Complaint: Fall [facility] Medical History (Updated 09/03/23 @ 02:[address] Kaia Mcclain MD) Cervical cancer CKD (chronic kidney disease), stage III Diverticular hemorrhage DM II (diabetes mellitus, type II), controlled Dyslipidemia Former tobacco use HTN (hypertension) Obesity Vertigo Home Medications glipizide 5 mg tablet, extended release 24 hr 5 mg PO DAILY DM 02/24/17 [History Last Taken 10/09/20] lisinopril 2.5 mg tablet 2.5 mg PO DAILY hypertension 02/24/17 [History Last Taken 10/09/20] metoprolol tartrate 25 mg tablet 25 mg PO BID HTN 02/24/17 [History Last Taken 10/09/20] pramipexole 0.25 mg tablet 0.25 mg PO QHS restless legs 02/24/17 [History Last Taken 10/08/20] acetaminophen 500 mg tablet 500 mg PO BID pain 10/10/20 [History Last Taken 10/09/20] allopurinol 100 mg tablet 100 mg PO BIDCM gout 10/10/20 [History Last Taken 10/09/20] aspirin 81 mg chewable tablet 81 mg PO QHS heart health 10/10/20 [History Last Taken 10/08/20] cholecalciferol (vitamin D3) 10 mcg (400 unit) tablet 10 mcg PO DAILY supplment 10/10/20 [History Last Taken 10/09/20] cyanocobalamin (vitamin B-12) 1,000 mcg capsule 1,000 mcg PO DAILY supplement 10/10/20 [History Last Taken 10/09/20] insulin glargine 100 unit/mL (3 mL) subcutaneous pen 42 units SQ QHS diabetes 10/10/20 [History Last Taken 10/08/20] cephalexin 500 mg capsule 500 mg PO TID 7 days #21 caps 09/02/23 [Rx Last Taken Unknown] meclizine 25 mg tablet 25 mg PO 4X/DAY PRN PRN Dizziness #20 tabs 09/02/23 [Rx Last Taken Unknown] glipizide 2.5 mg tablet, extended release 24 hr 2.5 mg PO DAILY diabetes 09/03/23 [History Last Taken Unknown] melatonin 5 mg capsule 5 mg PO QHS 09/03/23 [History Last Taken Unknown] rosuvastatin 20 mg tablet 20 mg PO QHS cholesterol 09/03/23 [History Last Taken Unknown] spironolactone 25 mg-hydrochlorothiazide 25 mg tablet 0.5 tab PO DAILY 09/03/23 [History Last Taken Unknown] Allergy/AdvReac Type Severity Reaction Status Date / Time No Known Allergies Allergy Verified 09/03/23 01:34 Family History (Updated 09/03/23 @ 02:[address] Kaia Mcclain MD) Mother Lung cancer COPD (chronic obstructive pulmonary disease) Father Alcoholism Surgical History (Updated 09/03/23 @ 02:[address] Kaia Mcclain MD) History of hysterectomy Hx of cholecystectomy Hx of dilation and curettage S/P appendectomy Social History household members: none Smoking Status: Former smoker how long ago did patient quit smoking: Quit 1973 with approximately 20 years tobacco use history. alcohol intake: never substance use type: does not use EXAM Physical Exam Const Vital Signs: 09/03/23 01:28 09/03/23 01:34 09/03/23 01:37 Temperature 96.9 F L Temperature Source Temporal Pulse Rate 56 L 58 L Respiratory Rate 13 16 Respiratory Effort Normal Respiratory Depth Normal Respiratory Pattern Normal Blood Pressure 99/42 L 96/39 L Blood Pressure Mean 61 58 Pulse Ox 97 98 Oxygen Delivery Method Room Air Room Air Room Air 09/03/23 01:49 Temperature Temperature Source Pulse Rate 59 L Respiratory Rate 18 Respiratory Effort Respiratory Depth Respiratory Pattern Blood Pressure 123/46 H Blood Pressure Mean 71 Pulse Ox 99 Oxygen Delivery Method Room Air MDM MDM MDM Narrative Medical decision making narrative: HISTORY OF PRESENT ILLNESS: 88-year-old female who presents with lightheadedness dizziness and fall. Notes she hit her head on a dresser. She further states she is attempting to unplug a counter height [employer] tree when she lost her balance falling to the right injuring her head notes lots of bleeding. Denies chest pain, shortness of breath, palpitations prior to fall. Notes last tetanus was within the last 10 years. States she was seen earlier today for similar symptoms. States she has vertigo. Denies changes to her medications. Denies any recent vomiting or diarrhea. Denies any bleeding diathesis. Denies any focal numbness or weakness. REVIEW OF SYSTEMS: Pertinent positives: Dizziness Pertinent negatives: Chest pain, slurred speech focal weakness, loss of vision PHYSICAL EXAM: Nursing triage notes reviewed, Vital signs reviewed Primary Survey Airway: Intact Breathing: Bilateral breath sounds Circulation: Palpable bilateral femorals, Palpable bilateral radial, Palpable bilateral DP and Palpable bilateral PT Disability / Spine precautions GCS Score: Eye Openin Verbal Response: 5 Motor Response: 6 Secondary Survey Constitutional: Please see MDM Head: Dried blood noted to right scalp midface stable, NO jaw malocclusion, Eye: Pupils equal round and reactive to light, Extraocular muscles intact and No periorbital ecchymosis or stepoff, no evidence of entrapment ENT: Oropharynx clear, no lacerations, no hemotympanum, no raccoon eyes or varma sign Cervical spine / Neck: No cervical spine bony tenderness, crepitance, or stepoff deformity Trachea midline Lungs: Clear to auscultation, No asymmetric rise and No crepitus, no flail chest Cardiac: Regular rate and rhythm and No murmurs Abdomen: Soft, Nontender and No rebound Pelvis: Pelvis stable to compression : No evidence of genital injury Back: No midline bony tenderness to thoracic/lumbar/sacral spines Neuro: Alert and oriented x3, neuro exam at baseline, cranial nerves II through XII are intact. No pain with extraocular muscle movement. There is negative test of skew. 5 of 5 strength in upper and lower extremities in flexion extension. Intact sensation to light touch in upper and lower extremity dermatomes. No truncal or extremity ataxia. No dysdiadochokinesia. Gait not assessed secondary to acuity of condition. 2+ reflexes in upper and lower extremities. No meningeal signs. Negative Babinski. NIH of 0. Psych: Normal affect Nursing triage notes reviewed, Vital signs reviewed MEDICAL DECISION MAKING: Chief Complaint: Fall, dizziness External records reviewed: Seen in 09/02/23 for dizziness. Neurologic exam at that time showed Vickery-Hallpike was positive with right beating horizontal nystagmus. Labs showed hemoglobin 9.7, CKD, no significant electrolyte abnormalities, UA with evidence of bacterial infection (patient was on Keflex). CT scan of the time was negative, EKG at that time showed no ST elevation or acute infarction Factors affecting care: Hypertension, type 2 diabetes, hyperlipidemia, CKD Social determinants of health: Elderly History obtained from others: n family Consults: Internal medicine MDM Narrative: Patient presented with soft blood pressures, bradycardia, otherwise afebrile and nontoxic-appearing. Exam I considered the following differential diagnosis: Posterior shoulder CVA, ICH, cervical spine abnormality, dehydration, anemia, Electrolyte abnormality, arrhythmia, ACS, ALL IMAGES (IF OBTAINED) HAVE BEEN PERSONALLY REVIEWED AND INTERPRETED BY MYSELF. EKG with sinus bradycardia, left axis deviation, normal's, no STEMI CBC with no leukocytosis, noted stable anemia, no thrombocytopenia chest x-ray was read reviewed myself shows evidence of mild cardiomegaly when compared to prior x-ray 2017, coarse interstitial markings compared to prior will add BNP to assess for signs of heart failure BMP without significant [place] normalities, no HIRAL High-sensitivity troponin is negative, no evidence of myocardial ischemia BNP within normal limits CT scan of patient's head was negative for acute intracranial normality The synthesis of the patient's history, physical exam labs images suggest no acute life-threatening pathology. Patient is 88 years old. She lives alone. She has been seen multiple times in the ED today for dizziness and fall. I do not feel she is safe going home. I spoke to the internal medicine doctor Dr. Mcclain who accepted her case. Procedure: Laceration repair. The procedure was performed by myself. Indication: Wound repair Risks and benefits: risks, benefits and alternatives were discussed Consent: Consent was obtained. Wound Details: Approximately 3 cm linear laceration without galeal involvement noted to the posterior right occiput, no deeper structures involved, no foreign bodies noted. No bleeding noted. Anesthesia: 1% lidocaine without epi Wound prep: Patient was prepped and draped in the usual sterile fashion. Tetanus: Up-to-date Irrigation Solution: Saline Wound Preparation: Cleansed with chlorhexidine, peroxide The wound was explored to its base in a bloodless field. Procedure Description: Applied for simple interrupted 4-0 Vicryl absorbable sutures with good approximation. Patient tolerated the procedure well with no immediate complications The patient and/or family, caregivers express understanding. The patient and/or family, caregivers agrees with the plan. Shared decision making: I will have a discussion with the patient and or visitors regarding risk/benefits of further testing or admission. They will be made aware of of the risk/benefits inherent in this decision they will be given the opportunity to voice understanding. Total critical care time today provided was at least 0 minutes. This excludes separately billable procedures. Critical care time (if documented) is secondary to the patient having high probability of clinically significant/life threatening deterioration in the patient's condition which required my urgent intervention. Impression: 1. Dizziness 2. Fall 3. Anemia 4. UTI 5. History of CKD Dispo: PCU observation Lab Data Labs: Laboratory Results - last 24 hr 09/03/23 02:06 WBC 7.0 RBC 3.53 L Hgb 11.2 L Hct 34.0 L MCV 96.3 MCH 31.7 MCHC 32.9 RDW Std Deviation 51.2 H RDW Coeff of Luciano 14.6 Plt Count 196 MPV 10.0 Immature Gran % (Auto) 0.300 Neut % (Auto) 61.9 Lymph % (Auto) 26.3 Kingfisher % (Auto) 8.6 Eos % (Auto) 2.2 Baso % (Auto) 0.7 Absolute Neuts (auto) 4.3 Absolute Lymphs (auto) 1.83 Nucleated RBC % 0 Discharge Plan Triage Chief Complaint: Fall Other Complaint: Dizziness ED Provider: Tristan Huitron Dx/Rx/DC Orders Prescriptions: No Action glipizide 5 MG tablet 5 mg PO DAILY Patient Comments: pramipexole 0.25 MG tablet 0.25 mg PO QHS lisinopril 2.5 MG tablet 2.5 mg PO DAILY Patient Comments: metoprolol tartrate 25 MG tablet 25 mg PO BID Patient Comments: insulin glargine 100 UNITS/ML insulin pen 42 units SQ QHS Patient Comments: Inject 42 Units subcutaneously daily at bedtime. allopurinol 100 MG tablet 100 mg PO BIDCM acetaminophen 500 MG tablet 500 mg PO BID aspirin 81 MG tablet,chewable 81 mg PO QHS cholecalciferol (vitamin D3) 10 MCG tablet 10 mcg PO DAILY cyanocobalamin (vitamin B-12) 1,000 MCG capsule 1,000 mcg PO DAILY meclizine 25 mg tablet 25 mg PO 4X/DAY PRN PRN (Reason: Dizziness) Qty: 20 0RF cephalexin 500 mg capsule 500 mg PO TID 7 Days Qty: 21 0RF glipizide 2.5 mg tablet extended release 24hr 2.5 mg PO DAILY rosuvastatin 20 mg tablet 20 mg PO QHS spironolacton-hydrochlorothiaz 25-25 mg tablet 0.5 tab PO DAILY melatonin 5 mg capsule 5 mg PO QHS Primary Care Provider: Maik Fay Referrals: Maik Fay MD [Primary Care Provider] -
--- NOTE | 2023-09-03 01:48 | CT_ITS ---
EXAM: CT brain without IV contrast. HISTORY: fall, head trauma TECHNIQUE: No intravenous contrast. A radiation dose optimization technique was used for this scan. COMPARISON: Head CT September 02, 2023. LIMITATIONS: None. BRAIN: Mild involutional change. Moderate low attenuation bilaterally within the deep white matter, likely secondary to chronic microvascular ischemia. VENTRICLES: No hydrocephalus. EXTRA-AXIAL SPACES: No acute hemorrhage. CALVARIUM/SKULL BASE: No acute fracture. FACE/SINUSES: No significant abnormality. SOFT TISSUES: Right parietal scalp laceration. OTHER: None. CONCLUSION: No acute intracranial abnormality. Electronically Signed: Jose Ivory MD at 4:56 EST , CT/Brain/Head without Contrast IMPRESSION: undefined
--- NOTE | 2023-09-03 01:48 | EKG12_ITS ---
Test Reason : FALL Blood Pressure : / mmHG Vent. Rate : 054 BPM Atrial Rate : 054 BPM P-R Int : 270 ms QRS Dur : 078 ms QT Int : 468 ms P-R-T Axes : 069 -05 041 degrees QTc Int : 443 ms Sinus bradycardia with 1st degree A-V block Low voltage QRS Borderline ECG Confirmed by LEENA SALOMON, CHRIS ([id number]), story editor ARNOLD SPANN ([id number]) on 09/05/2023 1:37:46 P M Referred By: RAYNA Confirmed By:JAVID STERN MD
--- NOTE | 2023-09-03 01:48 | CT_ITS ---
EXAM: CT cervical spine. HISTORY: neck pain after fall TECHNIQUE: No intravenous contrast. A radiation dose optimization technique was used for this scan. COMPARISON: None. LIMITATIONS: Motion artifact. FRACTURES: None. SPINAL CANAL: No significant stenosis. DEGENERATIVE CHANGE: Moderate to severe degenerative change. SOFT TISSUE: Normal. OTHER: None. CONCLUSION: Motion artifact. No acute fracture identified. Electronically Signed: Jose Ivory MD at 5:12 EST , CT/Spine Cervical without Contras IMPRESSION: undefined
[2023-09-03] MEDS: 0.9% Normal Saline (500mL Bag) 500 ML 1000 ML IV (02:03)
[2023-09-03 02:11] LABS: Absolute Lymphocyte Count 1.83 X10^3/uL (0.83-4.51); Absolute Neutrophil Count 4.3 X10^3/uL (2.0-7.7); Basophil# 0.05 X10^3/uL; Basophil% 0.7 % (0-1); Eosinophil# 0.15 X10^3/uL; Eosinophils% 2.2 % (0-5); Hemoglobin 11.2 g/dL (12.0-15.0); Lymphocyte # 1.83 X10^3/ul (0.83-4.51); Lymphocyte % 26.3 % (19-41); Mean Corp Hgb Conc 32.9 g/dL (32-36); Mean Corpuscular Hgb 31.7 pg (27.0-32.0); Mean Corpuscular Volume 96.3 fL (81-99); Monocyte% 8.6 % (0-10); NRBC Flagged by Analyzer 0 % (0-5); Neutrophil % 61.9 % (47-70); Platelet Count 196 K/mm3 (150-450); RBC Distribution Width CV 14.6 % (11.6-14.6); RBC Distribution Width SD 51.2 fl (35.1-43.9); Red Blood Count 3.53 M/mm3 (4.2-5.4)
--- NOTE | 2023-09-03 02:24 | RAD_ITS ---
INDICATION: dizziness EXAMINATION: Frontal view of the chest COMPARISON: Chest x-ray February 24, 2017. FINDINGS: Frontal view of the chest was obtained. The cardiac silhouette is borderline enlarged. Faint opacities overlying the lower lungs bilaterally likely represent normal soft tissue in the chest wall. No confluent airspace disease. No pneumothorax. RAD/Chest 1 View (Portable) IMPRESSION: No acute pulmonary disease. Electronically Signed: Jose Ivory MD at 3:55 EST ,
[2023-09-03 02:28] LABS: Anion Gap 4 (5-15); BUN 29 mg/dL (7-18); BUN/Creat Ratio 20.1 RATIO (10-20); Calcium,Total 9.1 mg/dL (8.5-10.1); Chloride 105 mmol/L (98-107); Creatinine, Serum 1.44 mg/dL (0.55-1.02); EST Glomerular Filtration Rate 37 mL/min (>60); Est Glom Filt Rate - Afr Amer 44 mL/min (>60); Estimated Creatinine Clearance 20.38 ml/min; Glucose 203 mg/dL (74-106); Potassium 4.2 mmol/L (3.5-5.1); Sodium Level 136 mmol/L (136-145); Troponin-I HS 8 pg/mL (3.0-54.0)
[2023-09-03] MEDS: Lidocaine 1% (20 ml mdv) 20 ML Vial 5 ML INFILT (02:44)
[2023-09-03 02:55] LABS: BNP,B-Type NATRIURETIC PEPTIDE 90.1 pg/mL (0-100)
--- NOTE | 2023-09-03 05:15 | PCM.HP.STD ---
HPI - General General Date of Admission: 09/03/23 Date of Service: 09/03/23 Chief Complaint: Vertigo, falls. HPI Narrative The patient is an 88 y/o F w/ PMHx: CKD stage IV per chart report however per GFR trending consisent with CKD stage III unclear subtype, Obesity, Diabetes mellitus type II, HTN, HLD, GERD, RLS, Chronic anemia, BPPV who re-presents to the [facility] [place] ED on 09/03/2023 with history of lightheadedness, dizziness and fall unfortunately hitting her head on a dresser with additional history of similar symptoms with fall earlier in the day prior while attempting to unplug a counter height MC2 tree with significant laceration to her head with bleeding associated seen earlier in the day the day prior for similar symptoms with history of vertigo with at that time a notable Crab Orchard-Hallpike maneuver positive with right beating horizontal nystagmus and urinalysis with concern for possible UTI discharged on Keflex with unremarkable CT head at that time unremarkable and EKG with no acute evidence of ischemia. Patient did report some neck discomfort following this most recent fall. Workup in the ED included T96.9, heart rate 56, BP initially 99/42 with most recent repeat 123/46, respiratory rate 18, 99% on room air, CBC with WBC 7.0, hemoglobin 11.2, MCV 96.3, platelet 186 without marked shift, BMP with BUN/creatinine 29/1.44, glucose 203, troponin 8, BNP 90.1, chest x-ray no acute cardiopulmonary findings, CT brain no acute intracranial findings, CT cervical spine with no acute findings, EKG with no acute evidence of ischemia with sinus rhythm. In the ED patient administered normal saline bolus as well as meclizine 25 mg p.o. x 1. In the ED following administration of meclizine patient did improve and was even able to walk to the bathroom with assistance. [facility] Medical History (Updated 09/03/23 @ 06:[address] Kaia Mcclain MD) Cervical cancer CKD (chronic kidney disease), stage III Diverticular hemorrhage DM II (diabetes mellitus, type II), controlled Dyslipidemia Former tobacco use HTN (hypertension) Obesity Vertigo Home Medications glipizide 5 mg tablet, extended release 24 hr 5 mg PO DAILY DM 02/24/17 [History Last Taken 10/09/20] lisinopril 2.5 mg tablet 2.5 mg PO DAILY hypertension 02/24/17 [History Last Taken 10/09/20] metoprolol tartrate 25 mg tablet 25 mg PO BID HTN 02/24/17 [History Last Taken 10/09/20] pramipexole 0.25 mg tablet 0.25 mg PO QHS restless legs 02/24/17 [History Last Taken 10/08/20] acetaminophen 500 mg tablet 500 mg PO BID pain 10/10/20 [History Last Taken 10/09/20] allopurinol 100 mg tablet 100 mg PO BIDCM gout 10/10/20 [History Last Taken 10/09/20] aspirin 81 mg chewable tablet 81 mg PO QHS heart health 10/10/20 [History Last Taken 10/08/20] cholecalciferol (vitamin D3) 10 mcg (400 unit) tablet 10 mcg PO DAILY supplment 10/10/20 [History Last Taken 10/09/20] cyanocobalamin (vitamin B-12) 1,000 mcg capsule 1,000 mcg PO DAILY supplement 10/10/20 [History Last Taken 10/09/20] insulin glargine 100 unit/mL (3 mL) subcutaneous pen 42 units SQ QHS diabetes 10/10/20 [History Last Taken 10/08/20] cephalexin 500 mg capsule 500 mg PO TID 7 days #21 caps 09/02/23 [Rx Last Taken Unknown] meclizine 25 mg tablet 25 mg PO 4X/DAY PRN PRN Dizziness #20 tabs 09/02/23 [Rx Last Taken Unknown] glipizide 2.5 mg tablet, extended release 24 hr 2.5 mg PO DAILY diabetes 09/03/23 [History Last Taken Unknown] melatonin 5 mg capsule 5 mg PO QHS 09/03/23 [History Last Taken Unknown] rosuvastatin 20 mg tablet 20 mg PO QHS cholesterol 09/03/23 [History Last Taken Unknown] spironolactone 25 mg-hydrochlorothiazide 25 mg tablet 0.5 tab PO DAILY 09/03/23 [History Last Taken Unknown] Allergy/AdvReac Type Severity Reaction Status Date / Time No Known Allergies Allergy Verified 09/03/23 01:34 Family History (Updated 09/03/23 @ 06:[address] Kaia Mcclain MD) Mother Lung cancer COPD (chronic obstructive pulmonary disease) Father Alcoholism CAD (coronary artery disease) Heart disease Hypertension Myocardial infarction age 43 secondary to OH. Surgical History (Updated 09/03/23 @ 05:[address] Kaia Mcclain MD) History of carpal tunnel surgery of right wrist History of hysterectomy History of tonsillectomy and adenoidectomy Hx of cholecystectomy Hx of dilation and curettage S/P appendectomy Social History (Updated 09/03/23 @ 06:[address] Kaia Mcclain MD) household members: none Smoking Status: Former smoker how long ago did patient quit smoking: Smoked 1 pack/day x 20 years, quit 1973. alcohol intake: current alcohol intake frequency: holidays/special occasions only substance use type: does not use ROS ROS Narrative Admission Review of Systems: CONSTITUTIONAL: No weight loss, fever, chills, + weakness or fatigue. HEENT: + Lightheadedness, dizziness, vertiginous sensation. Eyes: No visual loss, blurred vision, double vision or yellow sclerae. Ears, Nose, Throat: No hearing loss, sneezing, congestion, runny nose or sore throat. SKIN: No rash or itching, lesions, wounds. CARDIOVASCULAR: No chest pain, chest pressure or chest discomfort, palpitations, edema, orthopnea, syncopal events. RESPIRATORY: No shortness of breath, cough or sputum, wheezing, hemoptysis. GASTROINTESTINAL: + anorexia, nausea. No vomiting or diarrhea, abdominal pain, melena, BRBPR. GENITOURINARY: No dysuria, frequency, urgency or retention. NEUROLOGICAL: + Lightheadedness, dizziness, vertiginous sensation, near syncope. No headache, paralysis, ataxia, numbness or tingling in the extremities, focal weakness, change in bowel or bladder control, seizure. MUSCULOSKELETAL: + muscle, back pain, joint pain or stiffness. HEMATOLOGIC: + anemia, easy bleeding/bruising. LYMPHATICS: No enlarged nodes. No history of splenectomy. PSYCHIATRIC: No history of depression or anxiety. ENDOCRINOLOGIC: No reports of sweating, cold or heat intolerance. No polyuria or polydipsia. ALLERGIES: No history of asthma, hives, eczema or rhinitis. Vital Signs Vital Signs Vital Signs: 09/03/23 01:28 09/03/23 01:34 09/03/23 01:37 Temperature 96.9 F L Temperature Source Temporal Pulse Rate 56 L 58 L Respiratory Rate 13 16 Respiratory Effort Normal Respiratory Depth Normal Respiratory Pattern Normal Blood Pressure 99/42 L 96/39 L Blood Pressure Mean 61 58 Pulse Ox 97 98 Oxygen Delivery Method Room Air Room Air Room Air 09/03/23 01:49 09/03/23 02:56 09/03/23 03:00 Temperature Temperature Source Pulse Rate 59 L 57 L 61 Respiratory Rate 18 14 24 H Respiratory Effort Respiratory Depth Respiratory Pattern Blood Pressure 123/46 H 111/65 Blood Pressure Mean 71 80 Pulse Ox 99 97 100 Oxygen Delivery Method Room Air 09/03/23 03:10 09/03/23 03:20 Temperature Temperature Source Pulse Rate 59 L 50 L Respiratory Rate 24 H 19 H Respiratory Effort Respiratory Depth Respiratory Pattern Blood Pressure Blood Pressure Mean Pulse Ox 98 98 Oxygen Delivery Method Room Air Weight Weight: 167 lb 4.8 oz Body Mass Index (BMI) 31.6 Physical Exam Narrative Physical Examination: General: Awake, alert, oriented x 3 and cooperative, seated upright in the ED bed, fatigued but notes feeling improved, does admit that she went to the bathroom with assistance and vertiginous symptoms were significantly improved, resolving. Skin: Normal color, normal turgor, no icterus, no cyanosis except for occasional staged ecchymoses, bandaging to the head status post fall with laceration with bleeding controlled. HEENT: See skin/NC, EOMI, PERRLA, dry MM, no carotid bruits or JVD noted. Lungs: Diminished, greater bases, proper effort, no rales, ronchi or wheezing. Heart: Mildly bradycardic with regular rhythm; no gallop, rub audible. Abdomen: Soft, obese, NTTP, ND, mildly hyperactive BS, no HSM. Extremities: No cyanosis, no clubbing, mild ankle peripheral edema. Neurological: Patient awake, alert, oriented as noted, cognitive function intact; pupils equally reactive to light and accommodation, cranial nerves II-XII grossly normal, moving all 4 extremities, no focal deficits, no reproducible nystagmus at this time, patient notes she is feeling improved, strength improving, moderately to severely globally decreased secondary to acute presentation. Psychiatric: Affect appears fatigued, no acute evidence of depressive or anxiety feelings. Results Lab / Micro Data 09/03/23 02:06 09/03/23 02:06 Labs: Laboratory Results - last 24 hr 09/03/23 02:06: WBC 7.0, RBC 3.53 L, Hgb 11.2 L, Hct 34.0 L, MCV 96.3, MCH 31.7, MCHC 32.9, RDW Std Deviation 51.2 H, RDW Coeff of Luciano 14.6, Plt Count 196, MPV 10.0, Immature Gran % (Auto) 0.300, Neut % (Auto) 61.9, Lymph % (Auto) 26.3, [place] % (Auto) 8.6, Eos % (Auto) 2.2, Baso % (Auto) 0.7, Absolute Neuts (auto) 4.3, Absolute Lymphs (auto) 1.83, Nucleated RBC % 0, Sodium 136, Potassium 4.2, Chloride 105, Carbon Dioxide 27.0, Anion Gap 4 L, BUN 29 H, Creatinine 1.44 H, Estim Creat Clear Calc 20.38, Est GFR (MDRD) Af Amer 44 L, Est GFR (MDRD) Non-Af 37 L, BUN/Creatinine Ratio 20.1 H, Glucose 203 H, Calcium 9.1, Troponin I High Sens 8, B-Natriuretic Peptide 90.1 Imagaing Radiology Impression Brain CT 09/03/23 01:48 IMPRESSION: undefined Cervical Spine CT 09/03/23 01:48 IMPRESSION: undefined Chest X-Ray 09/03/23 02:24 IMPRESSION: No acute pulmonary disease. Electronically Signed: Jose Ivory MD at 3:55 EST Reading Location ID and State: [address] [place] [address] Tel , Service support , Assessment & Plan Assessment/Plan (1) Vertigo: PLAN: Plan The patient is an 88 y/o F w/ PMHx: CKD stage IV per chart report however per GFR trending consisent with CKD stage III unclear subtype, Obesity, Diabetes mellitus type II, HTN, HLD, GERD, RLS, Chronic anemia, BPPV who re-presents to the [facility] ED on 09/03/2023 with history of lightheadedness, dizziness and fall unfortunately hitting her head on a dresser with additional history of similar symptoms with fall earlier in the day prior while attempting to unplug a counter height Anai tree with significant laceration to her head with bleeding associated seen earlier in the day the day prior for similar symptoms with history of vertigo with at that time a notable Crab Orchard-Hallpike maneuver positive with right beating horizontal nystagmus and urinalysis with concern for possible UTI discharged on Keflex with unremarkable CT head at that time unremarkable and EKG with no acute evidence of ischemia. Patient did report some neck discomfort following this most recent fall. #1. Near syncope with lightheadedness, dizziness, vertigo, recurrent with history of BPPV with mechanical fall with head trauma: EKG in ED w/ sinus rhythm without evidence of acute ischemia, chest x-ray no acute cardiopulmonary, CT head no acute intracranial findings, CT cervical spine no acute findings, initial trop normal. Will admit to PCU, place on a monitored bed to assure no acute myocardial infarction with serial cardiac enzymes and EKGs. Will maintain on fall precautions, obtain admission orthostatic, continue judicious hydration, continue treatment with scheduled meclizine given improvement, PRN zofran, IVFs. If interventions do not assist may need to consider follow-up MRI of the brain to assure no posterior stroke. PT/OT consultation to ascertain stability and discharge needs. #2. Recent Acute complicated urinary tract infection: Will continue patient recently initiated Keflex regimen with pending urine culture for speciation and sensitivity. #3. Chronic normocytic anemia: Admission hemoglobin 11.2, MCV 96.3, baseline hemoglobin 10-11, stable, continue to trend. #4. Hypertension: Given low normal BP in the ED will temporally hold hypertensive regimen, add back once appropriate, PRN hydralazine. #5. Hyperlipidemia: We will continue patient on statin therapy. #6. Diabetes mellitus type II: Hold oral home regimen, continue home insulin regimen, ADA diet, accu checks w/ ISS. #7. Restless leg syndrome: We will continue patient on pramipexole regimen. #8. Obesity: Weight loss and lifestyle changes encouraged. #9. CKD stage IV per chart report however per GFR trending consisent with CKD stage III unclear subtype: Admission BUN/Cr 29/1.44, baseline renal function 1.2-1.5, repeat BMP in AM. #10. DVT prophylaxis: SCDs, hold chemoprophylaxis given recent fall with laceration. #11. CODE status: Patient CLAUDETTE is her daughter and living will is currently in place. Discussed CODE status at length including difference between FULL code, DNR-CCA and DNR-CC status. Following discussions about the differences in these status, requested Full Code status. Advanced Care Planning Face to Face Time: 16 minutes. Charges/Coding Visit Charges Inpatient E&M: 47271 Init Hosp L3 Procedures Hospitalists Procedures: 75362 Advncd Care Plan 30 Min
--- NOTE | 2023-09-03 06:52 | NURSING ---
PCU OBS WHITE FALL, DIZZINESS, CLOSED HEAD INJURY, UTI
[2023-09-03 09:02] LABS: Troponin-I HS 8 pg/mL (3.0-54.0)
[2023-09-03] MEDS: 0.9% Normal Saline (1000mL) 1,000 ML 100 ML IV (09:07)
[2023-09-03 10:23] LABS: Troponin-I HS 7 pg/mL (3.0-54.0)
[2023-09-03] MEDS: Allopurinol 100 MG Tablet PO ×2 (10:38→17:09)
[2023-09-03] MEDS: Meclizine HCl 25 MG Tablet PO ×2 (10:38→17:09)
[2023-09-03] MEDS: Cephalexin 250 MG Capsule PO ×3 (10:38→21:28)
[2023-09-03 10:51] LABS: Bedside Glucose 135 mg/dL (74-106)
[2023-09-03 13:01] LABS: Bedside Glucose 187 mg/dL (74-106)
--- NOTE | 2023-09-03 14:41 | PCM.PROGNOTE ---
Subjective Subjective Patient seen and examined. She had no active complaints. She was admitted through the ED with a complaint of mechanical fall. She tripped over her Anai tree and fell and hit her head. She denied any lightheadedness or dizziness. Review of systems otherwise negative. She has remained hemodynamically stable. Objective Data Objective Data Vital Signs: Vital Signs Temp Pulse Resp BP Pulse Ox O2 Del Method 98.5 F 60 16 122/47 H 99 Room Air 09/03/23 08:14 09/03/23 08:14 09/03/23 08:14 09/03/23 08:14 09/03/23 08:14 09/03/23 08:14 Oxygen Delivery Method Room Air Weight: 166 lb Body Mass Index (BMI) 31.4 Intake & Output: Intake and Output for Last 24 Hours 09/01/23 09/02/23 09/03/23 23:59 23:59 23:59 Intake Total 500 / 500 Balance 500 / 500 Lab / Micro Data 09/03/23 02:06 09/03/23 02:06 Labs: Laboratory Results - last 24 hr 09/03/23 02:06: WBC 7.0, RBC 3.53 L, Hgb 11.2 L, Hct 34.0 L, MCV 96.3, MCH 31.7, MCHC 32.9, RDW Std Deviation 51.2 H, RDW Coeff of Luciano 14.6, Plt Count 196, MPV 10.0, Immature Gran % (Auto) 0.300, Neut % (Auto) 61.9, Lymph % (Auto) 26.3, [place] % (Auto) 8.6, Eos % (Auto) 2.2, Baso % (Auto) 0.7, Absolute Neuts (auto) 4.3, Absolute Lymphs (auto) 1.83, Nucleated RBC % 0, Sodium 136, Potassium 4.2, Chloride 105, Carbon Dioxide 27.0, Anion Gap 4 L, BUN 29 H, Creatinine 1.44 H, Estim Creat Clear Calc 20.38, Est GFR (MDRD) Af Amer 44 L, Est GFR (MDRD) Non-Af 37 L, BUN/Creatinine Ratio 20.1 H, Glucose 203 H, Calcium 9.1, Troponin I High Sens 8, B-Natriuretic Peptide 90.1 09/03/23 08:31: Troponin I High Sens 8 09/03/23 09:02: POC Glucose 135 H 09/03/23 09:54: Troponin I High Sens 7 09/03/23 11:54: POC Glucose 187 H Radiography Diagnostic Testing: Radiology Impression Brain CT 09/03/23 01:48 IMPRESSION: undefined Cervical Spine CT 09/03/23 01:48 IMPRESSION: undefined Chest X-Ray 09/03/23 02:24 IMPRESSION: No acute pulmonary disease. Electronically Signed: Jose Ivory MD at 3:55 EST , Physical Exam Const alert, oriented x3 and no apparent distress General Appearance: cooperative HEENT normocephalic, head/scalp atraumatic, moist oral mucous membranes and oropharynx normal Eyes PERRL and EOMs intact bilaterally Neck no lymphadenopathy and supple Lymph Lymphatic: no lymphadenopathy noted and no lymphedema noted Resp normal respiratory effort, normal air movement and clear to auscultation bilaterally Cardio regular rate, regular rhythm, S1 normal heart sound, S2 normal heart sound and no murmurs GI normal to inspection, nondistended, normoactive bowel sounds, soft to palpation, non-tender and non-distended Extremity normal capillary refill, no clubbing, cyanosis or edema and no calf tenderness General Extremity: no tenderness to palpation of joints or extremities Skin General Skin Exam: no breakdown Wound Narrative: Head wrapped in bandage Neuro CN's II-XII intact bilaterally, no focal motor deficits, no sensory deficits noted and deep tendon reflexes 2+ bilaterally Motor Exam: strength 5/5 throughout and general weakness Psych Appearance: appropriate Assessment & Plan Assessment/Plan (1) Vertigo: PLAN: Plan #Scalp laceration due to mechanical fall Patient states she tripped over [employer] and fell. She had been seen in the ED the day before for near syncope with lightheadedness and dizziness. However she states that this time that she felt she felt only because she tripped. She denied any antecedent lightheadedness, dizziness or vertigo. CT of the brain showed no acute intracranial pathology. CT of the cervical spine also showed no acute findings. PT OT on board. Fall precautions. Gentle hydration with IV fluids. #Near syncope with vertigo She has a history of BPPV. However she insist that this recent fall which resulted in the scalp laceration did not involve her feeling lightheaded or dizzy. She had been seen in the ED the day before for similar symptoms though. PT OT on board. On meclizine. fall precautions # UTI: Recently diagnosed. On Keflex. To complete course. Urine cultures pending. #Hypertension: BP held as blood pressure was running low in the ED. #Hyperlipidemia: On statin #Type 2 diabetes mellitus: On Lantus. Insulin sliding scale. Accu-Cheks ACHS. #Restless leg syndrome: On pramipexole #CKD stage IIIb: Creatinine is 1.44 with a baseline of around 1.3. Monitor. DVT prophylaxis: SCDs. Charges/Coding Visit Charges Inpatient E&M: 79341 Subs Hosp L2
[2023-09-03 15:04] LABS: Troponin-I HS 6 pg/mL (3.0-54.0)
--- NOTE | 2023-09-03 17:00 | CASEMGMT ---
BERNADETTE ROSARIO Discharge Planning Assessment: Face to Face with patient for initial transition planning/care coordination assessment. BERNADETTE ROSARIO introduced self and role at [facility], pt alert, sitting up in chair, voices understanding of BERNADETTE ROSARIO role and is agreeable to participating in assessment. Care providers, pharmacy, and demographics verified. Admitting dx: vertigo, fall PCP: Sumeet Specialists: Jack (pod) Preferred Pharmacy: [facility] Insurance: [employer] Prescription Benefit: yes LNOK: daughter Gabriela Living Arrangements: Pt lives alone in a single story home with two steps to enter w/HR. Pt states she is independent with ADLs and IADLs although she does have a cleaning lady. Transportation: Pt states she drives but does not plan to drive for a month or so upon returning home. DME: grab bars, comfort height toilet, cane, walker SNF/HHC: pt denies any previous providers. Pt's goal/plan: pt states she plans to return home with the support of her daughter. Discussed need for continued therapy and pt states she would prefer HH. List of home health providers including quaity and resource use data and consistent with pt's geographic location and in network with her insurance was provided. Asked pt to select 2-3 providers. Will follow-up with pt on preferred providers and send corresponding referrals. REEDER form reviewed with pt and pt signed form. Original placed in chart and copy provided to pt. Will follow-up on HH choices and any additional DC needs as identiifed. Jamel Rock RN CM
[2023-09-03] MEDS: Insulin Lispro 100 UNIT/ML INSULN.PEN SC ×2 (17:08→21:34)
[2023-09-03 17:49] LABS: Bedside Glucose 233 mg/dL (74-106)
[2023-09-03] MEDS: MELATONIN 10 MG TABLET 5 MG PO (21:28)
[2023-09-03] MEDS: Pramipexole Di-HCl 0.25 MG Tablet PO (21:29)
[2023-09-03] MEDS: Atorvastatin Calcium 40 MG Tablet PO (21:30)
[2023-09-03] MEDS: Aspirin 81 MG TAB.CHEW PO (21:30)
[2023-09-03] MEDS: Insulin Glargine-YFGN 100 UNIT/ML Pen 42 UNIT SC (21:34)
[2023-09-03 23:10] LABS: Bedside Glucose 175 mg/dL (74-106)
[2023-09-04] MEDS: Meclizine HCl 25 MG Tablet PO ×3 (00:15→11:25)
[2023-09-04 03:22] VITALS: BMI 32.1
[2023-09-04 03:48] VITALS: BP 118/60; PULSE 65; RESP 18; TEMP 36.6; O2SAT 96
[2023-09-04] MEDS: Cephalexin 250 MG Capsule PO (05:19)
[2023-09-04 05:41] LABS: Absolute Lymphocyte Count 1.62 X10^3/uL (0.83-4.51); Absolute Neutrophil Count 3.1 X10^3/uL (2.0-7.7); Basophil# 0.04 X10^3/uL; Basophil% 0.7 % (0-1); Eosinophil# 0.15 X10^3/uL; Eosinophils% 2.8 % (0-5); Hematocrit 31.2 % (37-47); Hemoglobin 10.2 g/dL (12.0-15.0); Lymphocyte # 1.62 X10^3/ul (0.83-4.51); Lymphocyte % 30.1 % (19-41); Mean Corp Hgb Conc 32.7 g/dL (32-36); Mean Corpuscular Hgb 31.6 pg (27.0-32.0); Mean Corpuscular Volume 96.6 fL (81-99); Monocyte# 0.46 X10^3/uL; Monocyte% 8.5 % (0-10); NRBC Flagged by Analyzer 0 % (0-5); Neutrophil % 57.5 % (47-70); Platelet Count 173 K/mm3 (150-450); RBC Distribution Width CV 14.5 % (11.6-14.6); RBC Distribution Width SD 51.2 fl (35.1-43.9); Red Blood Count 3.23 M/mm3 (4.2-5.4); White Blood Count 5.4 K/mm3 (4.4-11.0)
[2023-09-04 06:01] LABS: ALB/GLOB Ratio 1.2 RATIO (0.9-2.4); AST(SGOT) 17 U/L (15-37); Alanine Aminotransfer ALT/SGPT 18 U/L (13-56); Albumin, Serum 3.5 g/dL (3.2-5.0); Alkaline Phosphatase 59 U/L (45-117); Anion Gap 3 (5-15); BUN 26 mg/dL (7-18); BUN/Creat Ratio 20.3 RATIO (10-20); Calcium,Total 8.7 mg/dL (8.5-10.1); Chloride 112 mmol/L (98-107); Creatinine, Serum 1.28 mg/dL (0.55-1.02); EST Glomerular Filtration Rate 42 mL/min (>60); Est Glom Filt Rate - Afr Amer 51 mL/min (>60); Estimated Creatinine Clearance 22.92 ml/min; Globulin 2.9 g/dL (2.2-4.2); Glucose 110 mg/dL (74-106); Potassium 4.3 mmol/L (3.5-5.1); Protein, Total 6.4 g/dL (6.4-8.2); Sodium Level 141 mmol/L (136-145)
[2023-09-04 06:54] LABS: Bedside Glucose 101 mg/dL (74-106)
[2023-09-04 07:44] VITALS: BP 120/46; PULSE 66; RESP 16; TEMP 36.2; O2SAT 97
[2023-09-04 08:25] VITALS: O2SAT 94
[2023-09-04 09:05] VITALS: BP 124/51; PULSE 66; RESP 18; TEMP 36.6; O2SAT 94
[2023-09-04] MEDS: Allopurinol 100 MG Tablet PO (09:09)
[2023-09-04] MEDS: Insulin Lispro 100 UNIT/ML INSULN.PEN SC (11:26)
[2023-09-04 11:45] LABS: Bedside Glucose 173 mg/dL (74-106)
--- NOTE | 2023-09-04 13:18 | PCM.DC ---
Discharge Instructions Diet Discharge Diet: 1800 Calorie Control Diet Activity Discharge Activity: Return to Normal Activity and Use Walker Weight Bearing Status: Full weight bearing Follow Up Care Test Results: Test results from this visit will be discussed in further detail at your follow-up appointment, if applicable. Discharge Plan Admission Admit Date/Time: 09/03/23 05:16 Primary Reason for Your Visit: Vertigo Attending Provider: Eugene Ayala Primary Care Provider: Maik Fay Consulting Providers: Kaia Mcclain; Lisy Lr Instructions Additional Instructions / Restrictions: Continue to take cephalexin 500 mg twice a day for 5 more days Discharge Orders/Prescriptions Prescriptions: Continued glipizide 5 MG tablet 5 mg PO DAILY Patient Comments: pramipexole 0.25 MG tablet 0.25 mg PO QHS lisinopril 2.5 MG tablet 2.5 mg PO DAILY Patient Comments: metoprolol tartrate 25 MG tablet 25 mg PO BID Patient Comments: insulin glargine 100 UNITS/ML insulin pen 42 units SQ QHS Patient Comments: Inject 42 Units subcutaneously daily at bedtime. allopurinol 100 MG tablet 100 mg PO BIDCM acetaminophen 500 MG tablet 500 mg PO BID aspirin 81 MG tablet,chewable 81 mg PO QHS cholecalciferol (vitamin D3) 10 MCG tablet 10 mcg PO DAILY cyanocobalamin (vitamin B-12) 1,000 MCG capsule 1,000 mcg PO DAILY meclizine 25 mg tablet 25 mg PO 4X/DAY PRN PRN (Reason: Dizziness) Qty: 20 0RF glipizide 2.5 mg tablet extended release 24hr 2.5 mg PO DAILY rosuvastatin 20 mg tablet 20 mg PO QHS spironolacton-hydrochlorothiaz 25-25 mg tablet 0.5 tab PO DAILY melatonin 5 mg capsule 5 mg PO QHS Discontinued cephalexin 500 mg capsule 500 mg PO TID 7 Days Qty: 21 0RF Referrals / Follow Up: Maik Fay MD [Primary Care Provider] - See Referral Note (At your regular appointment time) Disposition Disposition (needs filled in before D/C Order can be placed): Home, Self Care
--- NOTE | 2023-09-04 13:27 | DS.PCM_ITS ---
Providers Date of Admission: 09/03/23 Date of Discharge: 09/04/23 Primary Care Physician: Dr. Maik Fay MD Reason For Visit: NEAR SYNCOPE, VERTIGO Diagnosis Discharge Diagnosis (1) Vertigo: Status: Acute Code(s): R42 - Dizziness and giddiness Plan 1. Acute on chronic vertigo #2 acute cystitis present on admission #3 essential hypertension #4 type 2 diabetes #5 hyperlipidemia Medications at Discharge Home Medications glipizide 5 mg tablet, extended release 24 hr 5 mg PO DAILY DM 02/24/17 lisinopril 2.5 mg tablet 2.5 mg PO DAILY hypertension 02/24/17 metoprolol tartrate 25 mg tablet 25 mg PO BID HTN 02/24/17 pramipexole 0.25 mg tablet 0.25 mg PO QHS restless legs 02/24/17 acetaminophen 500 mg tablet 500 mg PO BID pain 10/10/20 allopurinol 100 mg tablet 100 mg PO BIDCM gout 10/10/20 aspirin 81 mg chewable tablet 81 mg PO QHS heart health 10/10/20 cholecalciferol (vitamin D3) 10 mcg (400 unit) tablet 10 mcg PO DAILY supplment 10/10/20 cyanocobalamin (vitamin B-12) 1,000 mcg capsule 1,000 mcg PO DAILY supplement 10/10/20 insulin glargine 100 unit/mL (3 mL) subcutaneous pen 42 units SQ QHS diabetes 10/10/20 meclizine 25 mg tablet 25 mg PO 4X/DAY PRN PRN Dizziness #20 tabs 09/02/23 glipizide 2.5 mg tablet, extended release 24 hr 2.5 mg PO DAILY diabetes 09/03/23 melatonin 5 mg capsule 5 mg PO QHS sleep 09/03/23 rosuvastatin 20 mg tablet 20 mg PO QHS cholesterol 09/03/23 spironolactone 25 mg-hydrochlorothiazide 25 mg tablet 0.5 tab PO DAILY diuretic 09/03/23 Hospital Course Operations None Procedures None Summary of Care Provided Minutes Spent on Discharge: 30 Hospital Course: This 88-year-old white female was seen in the emergency room at [facility] with complaints of lightheadedness, dizziness and a mechan ical fall at home. She struck her head on a dresser but denied any loss of consciousness. Workup included labs which showed a slightly low hemoglobin, chest x-ray showed no acute disease, BMP did show an elevation of her creatinine which appears to be chronic,, CT scan of the head was negative for acute intercranial abnormality. Patient's scalp laceration was repaired in the posterior right occiput area with interrupted 4-0 Vicryl sutures. Patient was placed into observation status on PCU, she was seen by PT and OT, her symptoms resolved. On 09/04/2023, patient was seen and examined: On examination she appeared in good health and spirits, she does not appear to be in any distress. Vital signs as documented. Skin warm and dry and without overt rashes. Neck without JVD, thyroid appears normal, trachea is midline, neck is supple. Lungs clear, normal air movement was noted. Heart exam notable for regular rhythm, normal sounds and absence of murmurs, rubs or gallops. Abdomen unremarkable and without evidence of organomegaly, masses, or abdominal aortic enlargement, bowel sounds are present in all 4 quadrants, no abdominal tenderness was noted. Extremities nonedematous, no cyanosis was noted, no clubbing was noted. Neuro: Cranial nerves II through XII are grossly intact, no focal motor deficits were noted, sensation to light touch and pinprick is intact, motor exam 5/5 througho ut. Psych: Patient is alert and oriented x3, she does not appear anxious or depressed, she does not appear agitated. Patient appears stable for discharge home on 09/04/2023. Weight / BMI Weight Weight: 77 kg Body Mass Index (BMI) 32.1 ABG / Lab / Microbiology Data 09/04/23 05:00 09/04/23 05:00 Laboratory: Laboratory Results - last 24 hr 09/03/23 14:12: Troponin I High Sens 6 09/03/23 17:04: POC Glucose 233 H 09/03/23 21:25: POC Glucose 175 H 09/04/23 05:00: WBC 5.4, RBC 3.23 L, Hgb 10.2 L, Hct 31.2 L, MCV 96.6, MCH 31.6, MCHC 32.7, RDW Std Deviation 51.2 H, RDW Coeff of Luciano 14.5, Plt Count 173, MPV 10.0, Immature Gran % (Auto) 0.400, Neut % (Auto) 57.5, Lymph % (Auto) 30.1, [place] % (Auto) 8.5, Eos % (Auto) 2.8, Baso % (Auto) 0.7, Absolute Neuts (auto) 3.1, Absolute Lymphs (auto) 1.62, Nucleated RBC % 0, Sodium 141, Potassium 4.3, Chloride 112 H, Carbon Dioxide 26.0, Anion Gap 3 L, BUN 26 H, Creatinine 1.28 H, Estim Creat Clear Calc 22.92, Est GFR (MDRD) Af Amer 51 L, Est GFR (MDRD) Non-Af 42 L, BUN/Creatinine Ratio 20.3 H, Glucose 110 H, Calcium 8.7, Total Bilirubin 0.40, AST 17, ALT 18, Alkaline Phosphatase 59, Total Protein 6.4, Albumin 3.5, Globulin 2.9, Albumin/Globulin Ratio 1.2 09/04/23 06:28: POC Glucose 101 09/04/23 11:20: POC Glucose 173 H D/C Instructions Discharge Diet: 1800 Calorie Control Diet Weight Bearing Status: Full weight bearing Meaningful Use Info Meaningful Use Diagnoses (Choose all that apply): None applicable Discharge Plan Admission Admit Date/Time: 09/03/23 05:16 Primary Reason for Your Visit: Vertigo Attending Provider: Eugene Ayala Primary Care Provider: Maik Fay Consulting Providers: Kaia Mcclain; Lisy Lr Instructions Additional Instructions / Restrictions: Continue to take cephalexin 500 mg twice a day for 5 more days Discharge Orders/Prescriptions Prescriptions: Continued glipizide 5 MG tablet 5 mg PO DAILY Patient Comments: pramipexole 0.25 MG tablet 0.25 mg PO QHS lisinopril 2.5 MG tablet 2.5 mg PO DAILY Patient Comments: metoprolol tartrate 25 MG tablet 25 mg PO BID Patient Comments: insulin glargine 100 UNITS/ML insulin pen 42 units SQ QHS Patient Comments: Inject 42 Units subcutaneously daily at bedtime. allopurinol 100 MG tablet 100 mg PO BIDCM acetaminophen 500 MG tablet 500 mg PO BID aspirin 81 MG tablet,chewable 81 mg PO QHS cholecalciferol (vitamin D3) 10 MCG tablet 10 mcg PO DAILY cyanocobalamin (vitamin B-12) 1,000 MCG capsule 1,000 mcg PO DAILY meclizine 25 mg tablet 25 mg PO 4X/DAY PRN PRN (Reason: Dizziness) Qty: 20 0RF glipizide 2.5 mg tablet extended release 24hr 2.5 mg PO DAILY rosuvastatin 20 mg tablet 20 mg PO QHS spironolacton-hydrochlorothiaz 25-25 mg tablet 0.5 tab PO DAILY melatonin 5 mg capsule 5 mg PO QHS Discontinued cephalexin 500 mg capsule 500 mg PO TID 7 Days Qty: 21 0RF Referrals / Follow Up: Maik Fay MD [Primary Care Provider] - See Referral Note (At your regular appointment time) Disposition Disposition (needs filled in before D/C Order can be placed): Home, Self Care Charges/Coding Visit Charges Inpatient E&M: 49703 Subs Hosp L1
[2023-09-04 13:36] VITALS: BP 124/51; PULSE 66; RESP 18; TEMP 36.6; O2SAT 94
--- NOTE | 2023-09-05 14:06 | CASEMGMT ---
BERNADETTE ROSARIO Follow-up: Call placed to patient in follow-up to home health referral. Pt answered and states she reviewed her list and would like [facility] as her first choice. Call placed to [facility] and request left on their confidential referral line. Will follow-up for acceptance and SOC. Jamel Rock RN CM
--- NOTE | 2023-09-05 14:30 | CASEMGMT ---
BERNADETTE ROSARIO: Call received from Rachell with [facility] stating pt has been accepted with a SOC tomorrow, 09/06/23. Will notify pt of acceptance. Jamel Rock RN CM
== END 2023-09-04 14:28 | disposition home health service (06) ==
LOC: ED 02:35 → PCU 05:39
PROVIDERS: Student in an Organized Health Care Education/Training Program; Admitting Provider Family Medicine; Emergency Provider Emergency Medicine; PCP Family Medicine; Visit Provider Internal Medicine
DX: N30.00 Acute cystitis without hematuria (principal); E11.22 Type 2 diabetes mellitus with diabetic chronic kidney disease; Z79.4 Long term (current) use of insulin; N18.32 Chronic kidney disease, stage 3b; K21.9 Gastro-esophageal reflux disease without esophagitis; Z79.82 Long term (current) use of aspirin; Z87.891 Personal history of nicotine dependence; D64.9 Anemia, unspecified; I12.9 Hypertensive chronic kidney disease with stage 1 through stage 4 chronic kidney disease, or unspecified chronic kidney disease; R55 Syncope and collapse; S01.01XA Laceration without foreign body of scalp, initial encounter; E78.5 Hyperlipidemia, unspecified; R42 Dizziness and giddiness; Z79.899 Other long term (current) drug therapy; Y93.89 Activity, other specified; W01.190A Fall on same level from slipping, tripping and stumbling with subsequent striking against furniture, initial encounter; E66.9 Obesity, unspecified; Z68.31 Body mass index [BMI] 31.0-31.9, adult; G25.81 Restless legs syndrome
CPT/HCPCS: 12013; 36415; 70450; 71045; 72125; 80048; 80053; 82962; 83880; 84484; 85025; 93005; 96360; 96361; 97162; 97165; 99221; 99285; J7030; J7040; A4216; G0378

== ENCOUNTER 2025-02-16 17:15 | Emergency (ER) | payer MEDICARE, SELFPAY ==
[2025-02-16] VITALS (7 sets, daily range): BP systolic 113–129; BP diastolic 60–91; PULSE 71–116; RESP 14–21; TEMP 36.3–37.2; O2SAT 97–99; BMI 29.3
--- NOTE | 2025-02-16 17:17 | EKG12_ITS ---
Test Reason : STROKE ALERT Blood Pressure : */* mmHG Vent. Rate : 85 BPM Atrial Rate : * BPM P-R Int : * ms QRS Dur : 72 ms QT Int : 394 ms P-R-T Axes : * -6 11 degrees QTcB Int : 468 ms Atrial fibrillation with a competing junctional pacemaker Low voltage QRS Cannot rule out Septal infarct , age undetermined Abnormal ECG Confirmed by Waqar Orozco ([id number]), manuscript editor ARNOLD SPANN ([id number]) on 02/19/2025 10:04:29 AM Referred By: Confirmed By: Waqar Orozco
--- NOTE | 2025-02-16 17:17 | CT_ITS ---
PROCEDURE: STROKE BRAIN/HEAD WITHOUT CONT 02/16/2025 REASON FOR EXAM: NEURO DEFICIT, ACUTE, STROKE SUSPECTED TECHNIQUE: Head CT without intravenous contrast. Coronal and Sagittal reconstruction series were provided. One or more dose reduction techniques were used (e.g., Automated exposure control, adjustment of the mA and/or kV according to patient size, use of iterative reconstruction technique. RADIATION DOSE SUMMARY: CTDlvol: 44.99 mGy DLP: 796.11 mGycm COMPARISON: None. FINDINGS: Mild global parenchymal atrophy. Periventricular white matter hypodensity likely representing moderate chronic microvascular ischemia. No evidence of acute hemorrhage or infarction. No extra-axial blood or fluid collections. The paranasal sinuses are clear. The mastoid air cells are well aerated. The calvarial vault and skull base are intact. CT/STROKE Brain/Head without Cont IMPRESSION: No acute intracranial abnormalities. Reading Location: [place] [address]
--- NOTE | 2025-02-16 17:17 | CT_ITS ---
PROCEDURE: STROKE CTA HEAD AND NECK W/CON 02/16/2025 REASON FOR EXAM: NEURO DEFICIT, ACUTE, STROKE SUSPECTED TECHNIQUE: CTA imaging of the head and neck from the aortic arch to the skull vertex with out contrast and with intravenous contrast. Multiplanar and multisequence images were obtained. CONTRAST: Isovue 370 VOLUME: 100 mL Gauge IV One or more dose reduction techniques were used (e.g., Automated exposure control, adjustment of the mA and/or kV according to patient size, use of iterative reconstruction technique). RADIATION DOSE SUMMARY: CTDlvol: 29.06+ 18.21 mGy DLP: 673.92 mGycm COMPARISON: None. FINDINGS: The common carotid arteries are patent. The aortic arch is patent. Atherosclerosis of the bilateral proximal internal carotid arteries without hemodynamically significant stenosis. Atherosclerosis of the carotid siphons without significant stenosis. The cervical vertebral arteries are patent. 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 The anterior cerebral, anterior communicating, right middle cerebral, posterior cerebral, [id number], and vertebrobasilar system is patent. Biapical centrilobular and paraseptal emphysema. CT/STROKE CTA Head AND Neck W/Con IMPRESSION: Occluded M1 segment of left MCA. Critical results were communicated to Critical results were communicated to Dr. Daniels at 6:15 p.m.. Reading Location: [place] [id number]
--- NOTE | 2025-02-16 17:24 | ED.VIS.STROK ---
HPI History of Present Illness Chief Complaint: Stroke Alert Detail of Chief Complaint: Last known well 1330. Informant: patient Onset/Context/Timing Onset: Today Context: Sudden Onset Timing: Continuous Quality and Location: Positive for - (Documented HPI narrative) Onset: Last known well 1330 Current Severity: Moderate Maximum Severity: Moderate Worsened by: This may be traumatic Relieved by: Nothing Associated Symptoms Associated Symptoms: Negative for Headache, Nausea, Vomiting or Chest Pain Narrative Narrative: Patient is an 89-year-old woman with history of cervical cancer, hypertension, type 2 diabetes, dyslipidemia who was last known well at 1330. She apparently called her daughter who is the POA after fall. Daughter received a call at 1630. Time the patient fell is unknown. Patient does not know her age or month. Patient is not able to follow since all simple commands. She also has trouble with expressive aphasia. Paramedics stated that she had a drift right upper extremity. When she was met in the ambulance bay by me she had no motor weakness. She is not hypoglycemic since she does have diabetes. Patient denies headache. She denies cardiac or respiratory symptoms. Prior similar symptoms: No Recent Illness/Hospitalization: No PFSH PFS Medical History Obesity Former tobacco use CKD (chronic kidney disease), stage III Vertigo Dyslipidemia Diverticular hemorrhage Cervical cancer HTN (hypertension) DM II (diabetes mellitus, type II), controlled Home Medications ?Medication ?Instructions ?Recorded ?Last Taken ?Type lisinopril 2.5 mg tablet 2.5 mg PO DAILY hypertension 02/24/17 10/09/20 History pramipexole 0.25 mg tablet 0.25 mg PO QHS restless legs 02/24/17 10/08/20 History acetaminophen 500 mg tablet 500 mg PO BID pain 10/10/20 10/09/20 History allopurinol 100 mg tablet 100 mg PO BIDCM gout 10/10/20 10/09/20 History aspirin 81 mg chewable tablet 81 mg PO QHS heart health 10/10/20 10/08/20 History cyanocobalamin (vitamin B-12) 1,000 mcg PO DAILY supplement 10/10/20 10/09/20 History 1,000 mcg capsule meclizine 25 mg tablet 25 mg PO 4X/DAY PRN PRN Dizziness 09/02/23 Unknown Rx #20 tabs rosuvastatin 20 mg tablet 20 mg PO QHS cholesterol 09/03/23 Unknown History gabapentin 400 mg capsule 400 mg PO BID 02/16/25 Unknown History gabapentin 600 mg tablet 600 mg PO Q12H 02/16/25 Unknown History hydrochlorothiazide 12.5 mg capsule 12.5 mg PO DAILY 02/16/25 Unknown History insulin lispro 100 unit/mL subcut 02/16/25 Unknown History subcutaneous pen (Humalog KwikPen (U-100) Insulin) melatonin 10 mg capsule 10 mg PO QHS 02/16/25 Unknown History prednisone 20 mg tablet 20 mg PO DAILY 02/16/25 Unknown History Allergy/AdvReac Type Severity Reaction Status Date / Time No Known Allergies Allergy Verified 09/03/23 01:34 Family History Mother Lung cancer COPD (chronic obstructive pulmonary disease) Father Alcoholism CAD (coronary artery disease) Heart disease Hypertension Myocardial infarction age 43 secondary to [place]. Surgical History History of carpal tunnel surgery of right wrist History of tonsillectomy and adenoidectomy Hx of dilation and curettage Hx of cholecystectomy History of hysterectomy S/P appendectomy Social History household members: none Smoking Status: Former smoker how long ago did patient quit smoking: Smoked 1 pack/day x 20 years, quit 1973. alcohol intake: current alcohol intake frequency: holidays/special occasions only substance use type: does not use ROS ROS ED Review of Systems ROS Unobtainable: due to mental status EXAM Physical Exam Const Vital Signs: 02/16/25 17:17 02/16/25 17:17 02/16/25 17:17 Temperature 98.6 F 98.6 F Temperature Source Oral Oral Pulse Rate 75 Respiratory Rate 18 Blood Pressure 129/71 H Blood Pressure Mean 90 Pulse Ox 97 Oxygen Delivery Method Room Air Room Air 02/16/25 17:47 02/16/25 17:47 02/16/25 18:17 Temperature 98.6 F 98.6 F 98.9 F Temperature Source Oral Oral Oral Pulse Rate 76 76 78 Respiratory Rate 14 19 H 14 Blood Pressure 120/60 120/60 126/78 H Blood Pressure Mean 80 80 94 Pulse Ox 97 98 98 Oxygen Delivery Method Room Air Room Air Room Air 02/16/25 18:20 02/16/25 18:30 02/16/25 18:30 Temperature 98.9 F 98.6 F 98.2 F Temperature Source Oral Oral Oral Pulse Rate 89 71 74 Respiratory Rate 14 18 18 Blood Pressure 127/65 H 113/81 H 113/61 Blood Pressure Mean 85 91 78 Pulse Ox 98 98 98 Oxygen Delivery Method Room Air Room Air Room Air 02/16/25 19:00 Temperature 97.8 F Temperature Source Core Pulse Rate 116 H Respiratory Rate 20 H Blood Pressure 113/61 Blood Pressure Mean 78 Pulse Ox 98 Oxygen Delivery Method Room Air Positive well nourished and well developed Constitutional Narrative: Patient has a postauricular hematoma. Is no palpable depression to suggest the present skull fracture. General Appearance ED: well developed and NAD HEENT Reports moist mucous membranes trauma Nose: other Other Details: There is no evidence of facial trauma or trauma to the nose. There is no septal deviation or hematoma. Eyes PERRL and EOMs intact bilaterally Eyes Narrative: There is no nystagmus with central gaze. General Eye ED: Negative for pale conjunctiva or scleral icterus Neck no lymphadenopathy, supple and no JVD Chest Wall inspection of chest normal and palpation of chest normal Resp normal respiratory effort and clear to auscultation bilaterally Cardio no murmurs Rate: regular rate Rhythm: abnormal rhythm irregularly irregular GI normal to inspection, nondistended, normoactive bowel sounds, soft to palpation, non-tender, non-distended and no masses Back/Spine no CVA tenderness Extremity normal to inspection General Extremety ED: Negative for deformity or edema General Extremity: Negative for deformity or edema Neuro No oriented x3, CN's II-XII intact bilaterally and no sensory deficits noted Gamaliel Coma Scale: document GCS findings Spontaneous Obeys Commands Confused 14 Sensorium / Orientation: Negative for alert Speech: speech normal Motor Exam: strength 5/5 throughout Psych mental status grossly normal Skin Skin Narrative: Scalp hematoma as previously described MDM MDM MDM Narrative Medical decision making narrative: Patient was made a stroke alert. Concern that she may have concussion also need to rule out traumatic hematoma i.e. epidural, subdural, traumatic subarachnoid hemorrhage or intraparenchymal contusion. Confirmed with daughter who is the POA that she is not on an anticoagulant or antithrombotic. She was last known well at 1330. Fall occurred at 1630. Spoke with the neurologist at [facility] because patient was approaching the 4-1/2-hour window. In light of her age fact that she fell there is a hematoma this increases the chance of hemorrhage was considered the risk-benefit was too great to administer TNK. She did not receive TNK. Informed the daughter since patient does not have capacity. The neurologist at [facility] was Dr. Greer. I did look at the CT minus and there was no evidence of subdural, epidural, traumatic subarachnoid hemorrhage or intraparenchymal contusion. Awaiting formal read by radiologist. History & Record Review Discussion w/independent historian: Family Lab Data Lab results narrative: CBC reveals mild anemia with normal indices. Labs: Laboratory Results - last 24 hr 02/16/25 17:20 WBC 10.1 RBC 3.87 L Hgb 11.6 L Hct 34.7 L MCV 89.7 MCH 30.0 MCHC 33.4 RDW Std Deviation 49.2 H RDW Coeff of Luciano 15.0 H Plt Count 298 MPV 9.9 Immature Gran % (Auto) 0.900 Neut % (Auto) 85.7 H Lymph % (Auto) 7.1 L [place] % (Auto) 6.1 Eos % (Auto) 0.1 Baso % (Auto) 0.1 Absolute Neuts (auto) 8.6 H Absolute Lymphs (auto) 0.71 L Nucleated RBC % 0 PT 13.1 INR 1.0 APTT 24.3 Sodium 136 Potassium 4.1 Chloride 100 Carbon Dioxide 22.3 Anion Gap 14 BUN 28 H Creatinine 1.19 Estim Creat Clear Calc 28.76 L Est GFR (MDRD) Non-Af 44 L BUN/Creatinine Ratio 23.3 H Glucose 269 H Calcium 10.0 Troponin T High Sens 25 H Radiography Diagnostic Testing: Clinical Impression(s) from Imaging Studies Brain CT 02/16/25 17:17 IMPRESSION: No acute intracranial abnormalities. Reading Location: [id number] Head/Neck CTA 02/16/25 17:17 IMPRESSION: Occluded M1 segment of left MCA. Critical results were communicated to Critical results were communicated to Dr. Daniels at 6:15 p.m.. Reading Location: [place] [address] Rhythm Strip Rhythm Strip: A-fib Rate: 88 Ectopy: None EKG Initial EKG: Attestation: I personally reviewed and interpreted this EKG as follows: Interpretation: Atrial Fibrillation (Rate is 85. QRS duration is 72 ms QT durations are 94 ms. [place] is normal. There is decreased anterior forces noted. Voltage is low. There is no obvious ischemic changes. Confirmed with daughter there is no history of atrial fibrillation.) Management Discussion w/another healthcare provider: Hospitalist, Train Conductor, Radiologist and Other (Transfer line nurse Annie at [facility] and neurology resident at [facility]) Treatment and Re-Evaluation Narrative: I received a call from the radiologist to inform me that there is a M1 occlusion on the left. Ice Scraper was asked to contact [facility] for transfer for clot retrieval. Critical Care Time Critical Care Time: Yes Critical care time (excluding procedures): 30-74 minutes (32), Including time spent: (History, physical, documentation, independent review of C-minus film,), Discussing w/Patient &/or Family/Dancing Master (Discussed with daughters POA regarding [place] K. Inform daughter there is an acute clot and she is a candidate for retrieval.), Discussing w/Consultants ([facility] neurologist in transfer line for clot removal), Arranging Admission or Transfer and Performing Direct Patient Care at Bedside Discharge Plan Triage Chief Complaint: Stroke Alert ED Provider: Edward Daniels Dx/Rx/DC Orders Clinical Impression: Acute ischemic left MCA stroke, Type 2 diabetes mellitus, Dyslipidemia, Essential hypertension, Expressive aphasia, CHI (closed head injury), New onset a-fib Prescriptions: No Action pramipexole 0.25 MG tablet 0.25 mg PO QHS lisinopril 2.5 MG tablet 2.5 mg PO DAILY Patient Comments: allopurinol 100 MG tablet 100 mg PO BIDCM acetaminophen 500 MG tablet 500 mg PO BID aspirin 81 MG tablet,chewable 81 mg PO QHS cyanocobalamin (vitamin B-12) 1,000 MCG capsule 1,000 mcg PO DAILY meclizine 25 mg tablet 25 mg PO 4X/DAY PRN PRN (Reason: Dizziness) Qty: 20 0RF rosuvastatin 20 mg tablet 20 mg PO QHS gabapentin 600 mg tablet 600 mg PO Q12H prednisone 20 mg tablet 20 mg PO DAILY insulin lispro [Humalog KwikPen Insulin] 100 unit/mL insulin pen subcut melatonin 10 mg capsule 10 mg PO QHS hydrochlorothiazide 12.5 mg capsule 12.5 mg PO DAILY gabapentin 400 mg capsule 400 mg PO BID Primary Care Provider: Maik Fay Referrals: Maik Fay MD [Primary Care Provider] - Print Language: Setswana Disposition Disposition: Acute Care Hospital Discharge Location: [facility] NIHSS NIHSS 1a. Level of Consciousness: 1 - Not alert; Arousable by minor stimuli to obey, answer & respond 1b. LOC Questions: 2 - Answers NEITHER question correctly 1c. LOC Commands: 1 - Performs ONE task correctly 2. Best Gaze: 0 - Normal 3. Visual: 0 - No visual loss 4. Facial Palsy: 0 - Normal symmetrical movements 5a. Left Arm: 0 - No drift; arm holds 90 (or 45) degrees for full 10 seconds 5b. Right Arm: 0 - No drift; arm holds 90 (or 45) degrees for full 10 seconds 6a. Left Le - No drift; leg holds 30-degree position for full 5 seconds 6b. Right Le - No drift; leg holds 30-degree position for full 5 seconds 8. Sensory: 0 - Normal; no sensory loss 9. Best Language: 1 - [id number] aphasia; 10. Dysarthria: 0 - Normal 11. Extinction and Inattention: 0 - No abnormality Total: 5 Stroke Questions Stroke Team Activated: Yes Reviewed Inclusion/Exclusion criteria: Yes No contraindications from thrombolytic administration: Yes Informed the patient and/or family of all associated risks, benefits, & alternatives to IV Thrombolytic Therapy. Patient and/or family voluntarily consent to the administration of IV Thrombolytic Therapy: Refused Patient/ legal volunteer patient representative refused thrombolytic Therapy details: Daughter POA. After explaining risk benefits she declined
[2025-02-16 17:33] LABS: Absolute Lymphocyte Count 0.71 X10^3/uL (0.83-4.51); Absolute Neutrophil Count 8.6 X10^3/uL (2.0-7.7); Basophil# 0.01 X10^3/uL; Basophil% 0.1 % (0-1); Eosinophil# 0.01 X10^3/uL; Eosinophils% 0.1 % (0-5); Hematocrit 34.7 % (37-47); Hemoglobin 11.6 g/dL (12.0-15.0); Lymphocyte # 0.71 X10^3/ul (0.83-4.51); Lymphocyte % 7.1 % (19-41); Mean Corp Hgb Conc 33.4 g/dL (32-36); Mean Corpuscular Volume 89.7 fL (81-99); Mean Platelet Vol. 9.9 fl (6.2-12.0); Monocyte# 0.61 X10^3/uL; Monocyte% 6.1 % (0-10); NRBC Flagged by Analyzer 0 % (0-5); Neutrophil # 8.63 X10^3/uL (2.7-7.7); Neutrophil % 85.7 % (47-70); Platelet Count 298 K/mm3 (150-450); RBC Distribution Width SD 49.2 fl (35.1-43.9); Red Blood Count 3.87 M/mm3 (4.2-5.4); White Blood Count 10.1 K/mm3 (4.4-11.0)
[2025-02-16 17:49] LABS: Prothrombin Time (Protime)PT. 13.1 SECONDS (11.7-14.9)
[2025-02-16 17:50] LABS: Partial Thromboplast Time 24.3 Seconds (24.1-36.2)
[2025-02-16 17:52] LABS: Anion Gap 14 (5-15); BUN 28 mg/dL (4-19); BUN/Creat Ratio 23.3 RATIO (10-20); Carbon Dioxide 22.3 mmol/L (21.0-32.0); Chloride 100 mmol/L (98-108); Creatinine, Serum 1.19 mg/dL (0.70-1.20); EST Glomerular Filtration Rate 44 (>60); Estimated Creatinine Clearance 28.76 ml/min (50-250); Glucose 269 mg/dL (70-99); Potassium 4.1 mmol/L (3.3-5.1); Sodium Level 136 mmol/L (133-145); Troponin T High Sensitivity 25 ng/L (<=14)
--- NOTE | 2025-02-16 18:10 | CM.ED ---
Social Work Date of Referral: 02/16/2025 Reason for referral: Stroke Alert Patient arrived via squad and shortly after, patient's daughter Gabriela and Gabriela's arrived. Gabriela was noticeably upset and appeared to be shaken, as was her . sample shoe inspector and reworker provided emotional support and tried to communicate with patient's family some of what to expect who both verbalized they understood. No other needs identified at this time (end time: 17:20) sample shoe inspector and reworker stopped back by to check on patient and patient appeared to be sleeping and patient's daughter was on the phone but gave a visual thumbs up that she was still doing ok. (end time: 18:10) Asia Perry, ACCOUNTING MACHINE OPERATOR, RENEWAL SPECIALIST
--- NOTE | 2025-02-16 18:21 | PCM.HP.STD ---
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 89 F who presents [facility] Medical History Obesity Former tobacco use CKD (chronic kidney disease), stage III Vertigo Dyslipidemia Diverticular hemorrhage Cervical cancer HTN (hypertension) DM II (diabetes mellitus, type II), controlled Home Medications ?Medication ?Instructions ?Recorded ?Last Taken ?Type glipizide 5 mg tablet, extended 5 mg PO DAILY DM 02/24/17 10/09/20 History release 24 hr lisinopril 2.5 mg tablet 2.5 mg PO DAILY hypertension 02/24/17 10/09/20 History metoprolol tartrate 25 mg tablet 25 mg PO BID HTN 02/24/17 10/09/20 History pramipexole 0.25 mg tablet 0.25 mg PO QHS restless legs 02/24/17 10/08/20 History acetaminophen 500 mg tablet 500 mg PO BID pain 10/10/20 10/09/20 History allopurinol 100 mg tablet 100 mg PO BIDCM gout 10/10/20 10/09/20 History aspirin 81 mg chewable tablet 81 mg PO QHS heart health 10/10/20 10/08/20 History cholecalciferol (vitamin D3) 10 10 mcg PO DAILY supplment 10/10/20 10/09/20 History mcg (400 unit) tablet cyanocobalamin (vitamin B-12) 1,000 mcg PO DAILY supplement 10/10/20 10/09/20 History 1,000 mcg capsule insulin glargine 100 unit/mL (3 42 units SQ QHS diabetes 10/10/20 10/08/20 History mL) subcutaneous pen meclizine 25 mg tablet 25 mg PO 4X/DAY PRN PRN Dizziness 09/02/23 Unknown Rx #20 tabs glipizide 2.5 mg tablet, extended 2.5 mg PO DAILY diabetes 09/03/23 Unknown History release 24 hr melatonin 5 mg capsule 5 mg PO QHS sleep 09/03/23 Unknown History rosuvastatin 20 mg tablet 20 mg PO QHS cholesterol 09/03/23 Unknown History spironolactone 25 0.5 tab PO DAILY diuretic 09/03/23 Unknown History mg-hydrochlorothiazide 25 mg tablet cyclobenzaprine 10 mg tablet 10 mg PO BID PRN PRN pain 02/16/25 Unknown History gabapentin 600 mg tablet PO 02/16/25 Unknown History insulin lispro 100 unit/mL subcut 02/16/25 Unknown History subcutaneous pen (Humalog KwikPen (U-100) Insulin) prednisone 20 mg tablet 20 mg PO DAILY 02/16/25 Unknown History Allergy/AdvReac Type Severity Reaction Status Date / Time No Known Allergies Allergy Verified 09/03/23 01:34 Family History Mother Lung cancer COPD (chronic obstructive pulmonary disease) Father Alcoholism CAD (coronary artery disease) Heart disease Hypertension Myocardial infarction age 43 secondary to [place]. Surgical History History of carpal tunnel surgery of right wrist History of tonsillectomy and adenoidectomy Hx of dilation and curettage Hx of cholecystectomy History of hysterectomy S/P appendectomy Social History household members: none Smoking Status: Former smoker how long ago did patient quit smoking: Smoked 1 pack/day x 20 years, quit 1973. alcohol intake: current alcohol intake frequency: holidays/special occasions only substance use type: does not use Vital Signs Vital Signs Vital Signs: 02/16/25 17:17 02/16/25 17:17 02/16/25 17:17 Temperature 98.6 F 98.6 F Temperature Source Oral Oral Pulse Rate 75 Respiratory Rate 18 Blood Pressure 129/71 H Blood Pressure Mean 90 Pulse Ox 97 Oxygen Delivery Method Room Air Room Air 02/16/25 17:47 02/16/25 17:47 02/16/25 18:17 Temperature 98.6 F 98.6 F 98.9 F Temperature Source Oral Oral Oral Pulse Rate 76 76 78 Respiratory Rate 14 19 H 14 Blood Pressure 120/60 120/60 126/78 H Blood Pressure Mean 80 80 94 Pulse Ox 97 98 98 Oxygen Delivery Method Room Air Room Air Room Air 02/16/25 18:20 Temperature 98.9 F Temperature Source Oral Pulse Rate 89 Respiratory Rate 14 Blood Pressure 127/65 H Blood Pressure Mean 85 Pulse Ox 98 Oxygen Delivery Method Room Air Weight Weight: 70.4 kg Body Mass Index (BMI) 29.3 Results Lab / Micro Data 02/16/25 17:20 02/16/25 17:20 Labs: Laboratory Results - last 24 hr 02/16/25 17:20: WBC 10.1, RBC 3.87 L, Hgb 11.6 L, Hct 34.7 L, MCV 89.7, MCH 30.0, MCHC 33.4, RDW Std Deviation 49.2 H, RDW Coeff of Luciano 15.0 H, Plt Count 298, MPV 9.9, Immature Gran % (Auto) 0.900, Neut % (Auto) 85.7 H, Lymph % (Auto) 7.1 L, [place] % (Auto) 6.1, Eos % (Auto) 0.1, Baso % (Auto) 0.1, Absolute Neuts (auto) 8.6 H, Absolute Lymphs (auto) 0.71 L, Nucleated RBC % 0, PT 13.1, INR 1.0, APTT 24.3, Sodium 136, Potassium 4.1, Chloride 100, Carbon Dioxide 22.3, Anion Gap 14, BUN 28 H, Creatinine 1.19, Estim Creat Clear Calc 28.76 L, Est GFR (MDRD) Non-Af 44 L, BUN/Creatinine Ratio 23.3 H, Glucose 269 H, Calcium 10.0, Troponin T High Sens 25 H Rhythm Strip Rhythm Strip: A-fib Rate: 88 Ectopy: None Imaging Radiology Impression Brain CT 02/16/25 17:17 IMPRESSION: No acute intracranial abnormalities. Reading Location: [place] [id number]
== END 2025-02-16 19:26 | disposition short-term general hospital (02) ==
PROVIDERS: Emergency Provider Emergency Medicine; PCP Family Medicine; Visit Provider Emergency Medicine
DX: I63.512 Cerebral infarction due to unspecified occlusion or stenosis of left middle cerebral artery (principal); I48.91 Unspecified atrial fibrillation; E11.22 Type 2 diabetes mellitus with diabetic chronic kidney disease; N18.30 Chronic kidney disease, stage 3 unspecified; S09.90XA Unspecified injury of head, initial encounter; I12.9 Hypertensive chronic kidney disease with stage 1 through stage 4 chronic kidney disease, or unspecified chronic kidney disease; E78.5 Hyperlipidemia, unspecified; Z79.82 Long term (current) use of aspirin; Z79.899 Other long term (current) drug therapy; Z87.891 Personal history of nicotine dependence; W19.XXXA Unspecified fall, initial encounter
CPT/HCPCS: 70450; 70496; 70498; 80048; 84484; 85025; 85610; 85730; 93005; 99285; Q9967; A4216

== ENCOUNTER 2025-02-22 17:42 | Inpatient (IN) | payer MEDICARE, SELFPAY ==
[2025-02-22 18:12] VITALS: BP 114/47; PULSE 70; RESP 16; TEMP 36.6; O2SAT 96; BMI 29.0
--- NOTE | 2025-02-22 18:13 | EX.PCM.HP.RE ---
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 Her dtr talked to her at 1:30 PM and speech was normal. At 4:30 PM the pt called her dtr because she fell and that is when the dtr noted she was confused and and expressive aphasia. She was not taking an antiplatelet agent or a anticoagulant. Stat noncontrast CT brain showed no acute intracranial abnormalities. CTA of the head and neck showed an occluded M1 segment of the left MCA. EKG showed AFIB (new for her). PE in the ED noted a posterior auricular hematoma. The ER physician spoke to the neurologist at [facility] and neurology felt that given her age and the scalp hematoma that the risk of giving TNK outweighed the benefit. She was transferred to [facility] to be evaluated for thrombectomy. At arrival to [facility] the NIHSS was 3 and she was deemed not a candidate for thrombectomy. Repeat CT brain was negative. Dr. Waters from neurology discussed her findings with luzma Ochoa and she was offered BASKING RAISE trial. Family wanted to proceed. Repeat CTA of the brain once again showed L MCA occlusion and drug injection was given at 01:05 on 02/17/25. MRI of the brain on 02/18/25 showed small and tiny acute left MCA territory infarcts with no evidence of hemorrhagic transformation. There were several scattered remote microhemorrhages in the right greater than left cerebral hemispheres suspicious for cerebral amyloid angiopathy. Neurology assessed for CAA and she did not meet criteria so AC was started with Eliquis on 02/21/25. There was an indeterminant small marrow replacing lesion involving the left parietal calvarium. Transthoracic echocardiogram showed a left ventricular ejection fraction of 55 to 60% with no wall motion abnormalities. There was grade 2 diastolic dysfunction and borderline increase in wall thickness with concentric remodeling. The right ventricular systolic pressure was estimated at 39 which is consistent with mild pulmonary hypertension. She had biatrial enlargement. There was no significant valvular heart disease. Follow up CTA of the head and neck after the drug was administered showed partial recanalization of the left M1 occlusion. She was seen by PT/OT/St at [facility] and acute inpt rehab was recommended at DC form [facility]. Pt had been living independently prior to stroke and was independent with ADL's. She was transferred to the acute inpt rehab unit at [facility] on 02/22/25 for 3 hours of therapy daily to restore function/independence at or near her level prior to the stroke. Significant labs: LDL 137 with HDL of 53, HGBA1C of 9.2, TRIG 237, sodium 133. Was taking HCTZ and Lisinopril at presentation to the ED at [facility]. Seen by Cardiology at [facility] and started on Metoprolol. They recommended starting AC and event monitor at DC from [facility]. [facility] Medical History (Updated 02/23/25 @ 11:[address] Norma Madden, DO) Diabetic polyneuropathy Hyperuricemia RLS (restless legs syndrome) CHI (closed head injury) Cervical cancer Overweight Diverticular hemorrhage Acute diverticulitis of intestine Visual disturbance Lightheadedness Obesity Former tobacco use CKD (chronic kidney disease), stage III Vertigo Dyslipidemia Diverticular hemorrhage Cervical cancer HTN (hypertension) DM II (diabetes mellitus, type II), controlled Home Medications ?Medication ?Instructions ?Recorded ?Last Taken ?Type pramipexole 0.25 mg tablet 0.25 mg PO QHS restless legs 02/24/17 02/21/25 History allopurinol 100 mg tablet 100 mg PO BIDCM gout 10/10/20 02/22/25 History cyanocobalamin (vitamin B-12) 1,000 mcg PO DAILY supplement 10/10/20 10/09/20 History 1,000 mcg capsule rosuvastatin 20 mg tablet 20 mg PO QHS cholesterol 09/03/23 Unknown History gabapentin 400 mg capsule 300 mg PO QHS nerve pain 02/16/25 02/21/25 History apixaban 5 mg tablet (Eliquis) 5 mg PO Q12H AFlutter 02/22/25 02/22/25 History meclizine 25 mg tablet 25 mg PO TID PRN PRN Dizziness 02/22/25 Unknown History metoprolol succinate 25 mg 25 mg PO DAILY AFlutter 02/22/25 02/22/25 History tablet,extended release 24 hr Allergy/AdvReac Type Severity Reaction Status Date / Time No Known Allergies Allergy Verified 09/03/23 01:34 Family History Mother Lung cancer COPD (chronic obstructive pulmonary disease) Father Alcoholism CAD (coronary artery disease) Heart disease Hypertension Myocardial infarction age 43 secondary to [place]. Surgical History History of carpal tunnel surgery of right wrist History of tonsillectomy and adenoidectomy Hx of dilation and curettage Hx of cholecystectomy History of hysterectomy S/P appendectomy Social History (Updated 02/22/25 @ 18:[address] Norma Madden DO) household members: none and other details: She is number of children: 3 pets and animals: Yes (1 cat named Shelby) pets and animals: cat(s) Smoking Status: Former smoker how long ago did patient quit smoking: Smoked 1 pack/day x 20 years, quit 1973. alcohol intake: current alcohol intake frequency: holidays/special occasions only substance use type: does not use ROS Review of Systems ROS Unobtainable: Denies due to encephalopathy, due to endotracheal tube, due to mental condition or due to mental status Constitutional Constitutional: Denies anorexia, change in weight, chills, fatigue, fever(s), night sweats or weakness Eyes Eyes: Reports dry eyes, periorbital itching and puffy eyes; Denies blurry vision, change in vision, diplopia, discharge from eye(s), double vision, eye pain, loss of peripheral vision, loss of vision, miosis, mydriasis or nystagmus ENT HEENT: Reports abnormal hearing, hearing loss, rhinorrhea and other Details: Bilateral hearing aid ; Denies dysphagia, headache(s), nasal congestion, sore throat or vertigo Cardiovascular Cardiovascular: Denies chest pain, dyspnea on exertion, edema, lightheadedness, orthopnea, palpitations, paroxysmal nocturnal dyspnea or syncope Respiratory/Chest Respiratory/Chest: Reports cough, dyspnea and other Details: She tells me that she is SOB but, can not tell me when she is SOB. She also says she has a cough but, she did not cough the entire time I was with her. ; Denies shortness of breath at rest, shortness of breath with exertion or wheezing Gastrointestinal Gastrointestinal: Denies abdominal pain, constipation, diarrhea, dyspepsia, hematemesis, hematochezia, nausea or vomiting Genitourinary Genitourinary: Denies dysuria, hematuria, nocturia, urinary frequency, urinary hesitancy, urinary incontinence or urinary urgency Musculoskeletal Musculoskeletal: Denies back pain, joint pain, joint swelling, neck pain or radiating pain into limb Integumentary Integumentary: Reports dry skin; Denies acne, jaundice, rash or wounds Neurologic Neurologic: Reports confusion; Denies disequilibrium, dizziness, focal weakness, headache(s), paresthesias, seizure-like activity, seizures or tremor(s) Psychiatric Psychiatric: Denies anxiety, depression, homicidal ideation or suicidal ideation Endocrine Endocrinology: Denies change in body appearance, polydipsia or polyuria Hematologic/Lymphatic Hematologic/Lymphatic: Reports easy bruising; Denies easy bleeding or lymphadenopathy Allergic/Immunologic Allergic/Immunologic: Reports rhinitis; Denies eczemia or asthma Indicators for Scoring Admitted with or Primary Diagnosis of CVA/Stroke: Yes Hx of CVA/Stroke: Yes Modified Stevens Score MRS Score at time of Evaluation: 2-Slight disability NIHSS NIHSS 1a. Level of Consciousness: 0 - Alert; keenly responsive 1b. LOC Questions: 2 - Answers NEITHER question correctly 1c. LOC Commands: 0 - Performs BOTH tasks correctly 2. Best Gaze: 0 - Normal 3. Visual: 0 - No visual loss 4. Facial Palsy: 1 - Minor paralysis (flattened nasolabial fold, asymmetry on smiling) 5a. Left Arm: 0 - No drift; arm holds 90 (or 45) degrees for full 10 seconds 5b. Right Arm: 0 - No drift; arm holds 90 (or 45) degrees for full 10 seconds 6a. Left Le - No drift; leg holds 30-degree position for full 5 seconds 6b. Right Le - No drift; leg holds 30-degree position for full 5 seconds 7. Limb Ataxia: 0 - Absent 8. Sensory: 1 - [id number] sensory loss; (BL legs....may be due to diabetic peripheral neuropathy. ) 9. Best Language: 1 - [id number] aphasia; 10. Dysarthria: 1 = [id number] dysarthria; 11. Extinction and Inattention: 0 - No abnormality Total: 6 Stroke Questions Stroke Team Activated: No Physical Exam Const alert Constitutional Narrative: Pleasant. Very alert. Can not tell me the year or her age. Talkative and making good eye contact. Does not appear to be in any distress. Was able to use the bedside commode and was not incontinent of urine. General Appearance: cooperative, well kempt and well developed HEENT normocephalic HEENT Narrative: Has hearing aids BL. Has upper dentures but, no lower dentures. She has many missing teeth in the mandible. MM are very dry. Denies pain in her mouth and also denies painful swallowing. He eyes are mild inject and the lid margins are reddened. No purulent DC observed but, there is mattering of the eyelashes. No visual field cuts. No nystagmus. PERRLA, EOMI. Eyes PERRL, EOMs intact bilaterally and no scleral icterus General Eye: normal light reflex Neck supple and No nodes General: trachea midline Chest Chest: symmetrical chest wall rise Resp normal respiratory effort, normal air movement and clear to auscultation bilaterally Resp Narrative: not tachypneic. No cough Effort and Inspection: able to speak in complete sentences and symmetric chest movement Cardio regular rate and regular rhythm Peripheral Pulses: popliteal pulses present bilateral 3+, posterior tibial pulses present right 2+ and left diminished and dorsalis pedis pulses present right 3+ and left diminished GI normal to inspection, nondistended, normoactive bowel sounds, soft to palpation and non-tender GI Narrative: No guarding with palpation no CVA tenderness Narrative: Denies dysuria. No pain with palpation of the suprapubic area. Back/Spine no CVA tenderness Extremity no calf tenderness and no pedal edema Extremity Narrative: No clubbing and no cyanosis. Hands and feet are cool to the touch with intact sensation. Skin no jaundice Rashes: no rashes Hair: general thinning Neuro Neuro Narrative: She is alert and is oriented to person. She could not tell me the year or the month and could also not tell me her age. Tongue protrudes on the midline. She was able to follow simple commands. The palate elevates symmetrically. Trace right facial droop. Symmetrical shoulder shrug. No visual field cuts. Pupils are equal round reactive to light and accommodation and extraocular muscles are intact. She has good strength in the bilateral arms and bilateral legs. Good plantar flexion and dorsiflexion bilaterally. No ataxia in the arms or the legs. No extinction. Sensory perception is equal bilaterally. She has mild dysarthria and mild to moderate aphasia. I did not ambulate her. Psych cooperative, affect normal and denies hallucinations Appearance: grossly normal, appropriate and well kempt Attitude: calm and engaged Activity / Motor Behavior: appropriate eye contact Speech: other Speech is a little slurred due to the stroke. She also has mild to moderate aphasia. 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 Can be evaluated as OP following DC from rehab. (15) Conjunctivitis: QUALIFIERS: Conjunctivitis type: unspecified Laterality: bilateral Qualified Code(s): H10.9 - Unspecified conjunctivitis PLAN: Plan PLAN PT for gait stability OT for ADL's ST for evaluation Analgesics as needed Bowel protocol Fall precautions Assess for Anxiety/Depression GI prophylaxis -not necessary at this time. Patient denies epigastric pain, nausea, vomiting and heartburn. She has no history of peptic ulcer disease. DVT prophylaxis-on apixaban for atrial fibrillation Follow up with PCP, neurology, cardiology following DC from IP Rehab AM lab including CMP, CBC, Mag and Phos ordered check a uric acid. No longer taking a diuretic so may not need Allopurinol any longer. Diuretic and Lisinopril held at DC from [facility] due to soft BP. She was given IV fluids, She was taking Gabapentin 400 mg BID and 600 mg at HS prior to stroke. Decreased to 300 mg at Hs while at [facility] for drowsiness/confusion. Defer evaluation of Left parietal lytic lesion to PCP as OP. C&S of watery DC in the eyes. Charges/Coding Visit Charges Inpatient E&M: 68196 Init Hosp L3
--- NOTE | 2025-02-22 18:37 | REHABEVAL_ITS ---
Admission Information Primary Diagnosis:: Poststroke debility Status Changes from Prescreening?: No changes Identified Actual Problem List:: Falls, Skin Intergrity, Cognitve Impr/Memory Loss, Self Care Deficit, Fluid Change-Dehydration and Alteration-Leisure Activ. Potential Problem List:: DVT, Bleeding, Infection, UTI, Aspiration, Falls, Skin Integrity and Depression Risk of Complications DVT: NELY Hose and - (Eliquis 5 mg twice daily) Bleeding: Monitor Lab Values, Nursing to Teach Precautions for anti-coagulation therapy., Wound, if applicable, to be assessed every shift. and Stroke patients assessed for lethargy or change in status. Infection: Clinical Staff to Monitor for S/S of infection: and S/S of infection include fever, redness, warmth, etc. Urinary Tract Infection: Monitor for frequency, burning, discomfort, or incontinence. and Nursing will obtain urine sample for urinalysis and C&S when ordered. Aspiration: Clinical staff will monitor for coughing, drooling, congestion., Speech will evaluate swallowing and dsyphasia. and Nursing will monitor patient swallowing during meals. Falls: Patient will be evaluated for Fall Precautions and Patient will be placed on Fall Precautions as indicated per protocol. Skin Breakdown: Nursing will assess skin daily using assessment tool. and Nursing will place on Skin Breakdown Precautions as indicated. Pain: Clinical staff will assess patient's pain level per protocol., Medications will be given, if needed, and the pain level reassessed. and Other methods: Massage, distraction, decrease stimulus, etc. used PRN. Plan of Care Patient requires physician specializing in physical medicine and rehab oversight to provide close medical supervision of rehab issues including: Pain Management, Sleep Problems, Bowel and Bladder, Medical and co-morbidity Management, DVT prophylaxis, Rehabilitation Leadership and Coordination of treatment team Patient needs Physical Therapy: For a minimum of 1 hour and At least 5 out of 7 days Patient needs Physical Therapy to improve:: Mobility, Strengthening, Transfers, Stretching, ROM, Endurance, Stairs, Gait and Balance Patient needs Occupational Therapy: For a minimum of 1 hour and At least 5 out of 7 days Patient needs Occupational Therapy to improve ADL's incl.: Eating, Grooming, Bathing, Dressing, Toileting, Toilet transfers, Community Reintegration, Higher functioning activities, Household tasks, Adaptive Equipment, Splinting and Other activities as determined Patient requires speech therapy: For a minimum of 1 hour and At least 5 out of 7 days Patient requires speech therapy for: Swallowing, Cognition, Language Skills and Compensatory Strategies Patient requires 24/ Rehabilitation Nursing for: Pain Issues, Identifying and preventing risk factors, Monitoring and reporting current medical conditions, Assisting with ambulation, transfer, and all ADL's, Teaching patients about disease process and medications, Family teaching, Providing safe environment, Bowel and Bladder Issues, Skin integrity and Medication Management Patient needs Software Qa Manager/ Case Management for: Discharge Planning, Arranging Home Equipment or Services and Family Interventions Patient needs Dietary and Nutrition Services for: Adequate Nutrition, Nutritional Supplements and Nutritional Education Goals Goals Patient will remain: free from falls Patient will perform eating at: MOD I level of assist. Patient will perform bed mobility at: MOD I level of assist. Patient will complete transfers from bed to chair at: MOD I level of assist. Patient will ambulate: - (300 feet independently with a wheeled walker) Patient will complete upper body dressing at: MOD I level of assist. Patient will complete lower body dressing at: MOD I level of assist. Patient will complete toilet transfer at: - (Supervision) Patient will complete toileting at: MOD I level of assist. Patient will perform bathing at: MOD I level of assist. (Upper body bathing independently and lower body bathing at mod I using adaptive equipment as needed.) Patient will perform Tub/Shower transfer at: - (Supervision) Patient will complete grooming at: MOD I level of assist. Patient will achieve: - (1 curb step with least restrictive device at standby assist) Patient will have pain level of: of 3 or less Patient's skin will: remain intact Patient will receive: adequate nutrition. Discharge Planning Pt Prognosis for Sig. Practical Improv. w/in Reasonable Time: Good Estimated Length of stay (days): 21 Anticipated D/C Destination: Home w/ family or friends (plans on moving in with her dtr) Was Preadmission Assessment Accurate?: Yes
--- OUTSIDE RECORDS SUMMARY | 2025-02-22 19:26 | XMS RPT_ITS | CCD ---
Author Organization [facility] Care Team Providers Care Sap Sd Analyst Name Role Phone Maribel Fay MD Primary Care Provider Maribel Fay MD Primary Care Provider Podlogar VP MARKETING.Tosha BONDS Unavailable Knoble VP MARKETING.Bhavani BONDS Unavailable Knoble VP MARKETING.Bhavani BONDS Unavailable SAVANA DE OLIVEIRA Attending Unavailab SAVANA Lugo Admitting Unavailab MARIBEL Hand Primary Care Unavailab le Knoble VP MARKETING.Bhavani BONDS Unavailable Dr. Maik Fay MD Primary Care Provider Dr. Edward Ribeiro MD Emergency Provider MARIBEL FAY Primary Care Unavailab MARIBEL Hand Referring Unavailab MARIBEL Hand Primary Care Unavailab MARIBEL Hand Attending Unavailab MARIBEL Hand Primary Care Unavailab MARIBEL Hand Referring Unavailab MARIBEL Hand Primary Care Unavailab KAREL Graff Referring Unavailable KAREL SANTIAGO Attending Unavailable MARIBEL FAY Primary Care Unavailab TOSHA Hagen Attending Unavailable MARIBEL FAY Primary Care Unavailab le PODLOGARTOSHA Attending Unavailable MARIBEL FAY Primary Care Unavailab MARIBEL Hand Referring Unavailab MARIBEL Hand Primary Care Unavailab SIMON Mayfield Referring Unavailable MARIAH ODONNELL Attending Unavailable MARIBEL FAY Primary Care Unavailab MARIBEL Hand Referring Unavailab SAVANA Lugo Attending Unavailab MARIBEL Hand Primary Care Unavailab MARIBEL Hand Attending Unavailab MARIBEL Hand Primary Care Unavailab MARIBEL Hand Attending Unavailab MARIBEL Hand Primary Care Unavailab MARIBEL Hand Referring Unavailab JHOAN Anne Attending Unavailable MARIBEL FAY Primary Care Unavailab MARIBEL Hand Referring Unavailab MARIBEL Hand Primary Care Unavailab MARIBEL Hand Attending Unavailab MARIBEL Hand Primary Care Unavailab MARIAH Escobar Referring Unavailable SIMON DRISCOLL Attending Unavailable MARIBEL FAY Primary Care Unavailab le PODLOGARTOSHA Referring Unavailable MARIBEL FAY Primary Care Unavailab le PODLOGTOSHA TERAN Referring Unavailable MARIAH ODONNELL Attending Unavailable MARIBEL FAY Primary Care Unavailab le TESTRAKEKAREL Referring Unavailable TESTRAKE, KAREL Attending Unavailable MARIBEL FAY Primary Care Unavailab TANIKA Lopez Attending Unavailable MARIBEL FAY Primary Care Unavailab MARIBEL Hand Referring Unavailab JHOAN Anne Attending Unavailable MARIBEL FAY Primary Care Unavailab le PODLOGARTOSHA Referring Unavailable MARIBEL FAY Primary Care Unavailab le PODLOGARTOSHA Referring Unavailable MARIBEL FAY Primary Care Unavailab MARIBEL Hand Attending Unavailab MARIBEL Hand Primary Care Unavailab SAVANA Lugo Referring Unavailab MARIBEL Hand Primary Care Unavailab le PODLOGAR, TOSHA Referring Unavailable MARIBEL FAY Primary Care Unavailab MARIBEL Hand Attending Unavailab MARIBEL Hand Primary Care Unavailab le TESTRAKEKAREL Referring Unavailable TESTRAKE, KAREL Attending Unavailable MARIBEL FAY Primary Care Unavailab le TESTRAKEKAREL Referring Unavailable TESTRAKE, KAREL Attending Unavailable DENIA OLIVAREZ Attending Unavailable RIBEIRO, EDWARD Referring Unavailable CONSULT, CARDIOLOGY Consulting Unavailable ANH GREER Admitting Unavailable Maik Fay Primary Care Unavailable Edward Ribeiro Attending Unavailable Norma Madden Admitting Unavaila Maik Dan Primary Care Unavailable Norma Madden Referring Unavaila ble Maryanne, Norma Bee Attending Unavaila ble Allergies Allergy Classification Reported Allergen(s) Allergy Type Date of Onset Reaction(s) Facility HMG-CoA Reductase Inhibitors (statins) (2 sources) atorvastatin Drug Allergy 7 Intolerance [facility] (20 sources) atorvastatin; Translations: [ATORVASTATIN] Drug Allergy 7 Intolerance [facility] (20 sources) Simvastatin; Translations: [SIMVASTATIN] Drug Allergy 7 Intolerance [facility] (4 sources) cyclobenzaprine Drug Allergy 5 Mental Status Change [facility] Work Phone: Medications Current Medications Medication Drug Class(es) Dates Sig (Normalized) Sig (Original) acetaminophen 500 mg oral tablet (20 sources) Start: 10-10-2020 take 1 tablet by mouth twice daily Acetaminophen 500 MG tablet Active 500 mg PO TWICE A DAY October 10, 2020 1:00am take 2 capsules by m outh every twelve hours as needed Acetaminophen 500 mg cap Take 2 capsules by mouth two times a day as needed for pain. Reports will utilize 1 500mg tab 1-2 times in between the 1000 mg doses Active Comment on above: Take 2 capsules by m outh two times a day as needed for pain. Reports will utilize 1 500mg tab 1-2 times in between the 1000 mg doses allopurinol 100 mg oral tablet (20 sources) Xanthine Oxidase Inhibitor Start: End: 3 take 2 tablets by mouth once daily allopurinol (ZYLOPRIM) 100 mg tablet Indications: Acute gout of right hand, unspecified cause Take 2 tablets by mouth once daily for 7 days. For gout. 14 tablet 0 09/14/2022 09/21/2022 Active Start: 10-10-2020 End: 06-05-2024 take 1 tablet by mouth twice daily allopurinol (ZYLOPRIM) 100 mg tablet Take 1 tablet by mouth two times a day. 180 tablet 3 06/06/2024 Active Start: 07-21-2020 End: 01-17-2021 take 2 tablets by mouth once daily allopurinol (ZYLOPRIM) 100 mg tablet Indications: Acute gout of right hand, unspecified cause Take 2 tablets by mouth once daily. For gout. 180 tablet 1 07/21/2020 01/17/2021 Comment on above: Take 2 tablets by mo ut once daily. For gout. Take 2 tablets by mo ut once daily for 7 days. For gout. Take 100 mg by mouth twice daily. Take 1 tablet by sarai twice daily. Take 1 tablet by sarai th two times a day. aspirin 81 mg chewable tablet (20 sources) Platelet Aggregation Inhibitor, Nonsteroidal Anti-inflammatory Drug Start: 10-10-2020 take 1 tablet by mouth at bedtime Aspirin 81 MG tablet,chewable Active 81 mg PO AT BEDTIME October 10, 2020 1:00am Start: 02-07-2006 End: 12-07-2024 ASPIRIN 81 MG TAB Take one ( 1) tablet daily . 1 0 02/07/2006 12/07/2024 Discontinued Comment on above: Take one (1) tablet daily . Blood-Glucose Meter, Drum-type (ACCU-CHEK COMPACT PLUS CARE) Misc Kit (20 sources) Start: 10-11-2011 Blood-Glucose Meter, Drum-type (ACCU-CHEK COMPACT PLUS CARE) Misc Kit 1 Each. Accu-Check Compact Plus Meter Diagnosis: Diabetes Mellitus 1 Kit 0 10/11/2011 Active Comment on above: 1 Each. Accu-Check C ompact Plus Meter Diagnosis: Diabetes Mellitus clotrimazole 10 mg/ml topical cream (5 sources) Azole Antifungal Start: 05-16-2024 End: 05-30-2024 clotrimazole (LOTRIMIN) 1 % cream Indications: Intertrigo Apply to affected area two times a day for 14 days. 35.4 g 05/16/2024 05/30/2024 Active Start: 10-10-2020 End: 09-03-2023 Clotrimazole 28 GM cream Dis continued 1 NMA TOPICAL AT BEDTIME October 10, 2020 1:00am September 03, 2023 3:45am Start: 10-10-2020 End: 09-03-2023 Clotrimazole Discontinued 1 APPLIC TOPICAL AT BEDTIME October 10, 2020 12:00am September 03, 2023 2:45am COMPOUNDED PRESCRIPTION (20 sources) Start: 10-18-2016 COMPOUNDED PRE SCRIPTION Indications: Carpal tunnel syndrome, right Cock up wrist splint, right Medium. To be worn nightly to prevent carpal tunnel symptoms. Dx: carpal tunnel right 1 Device 10/18/2016 Active Start: 10-18-2016 COMPOUNDED PRE SCRIPTION Indications: Carpal tunnel syndrome, right Cock up wrist splint, right Medium. To be worn nightly to prevent carpal tunnel symptoms. Dx: carpal tunnel right 1 Device 0 10/18/2016 Active Comment on above: Cock up wrist splint , right Medium. To be worn nightly to prevent carpal tunnel symptoms. Dx: carpal tunnel right gabapentin 600 mg oral tablet (20 sources) Anti-epileptic Agent Start: 02-16-2025 take 1 capsule by mouth twice daily Gabapentin 400 mg capsule Active 400 mg PO TWICE A DAY February 16, 2025 12:00am Start: 02-16-2025 take 1 tablet by sarai th every twelve hours Gabapentin 600 mg tablet Active 600 mg PO Q12H February 16, 2025 12:00am Start: 08-17-2024 End: 02-17-2025 take 1 tablet by mouth twice daily gabapentin (NEURONTIN) 600 mg tablet Take 1 tablet by mouth two times a day for 90 days. 180 tablet 11/19/2024 Active Start: 02-14-2024 End: 12-15-2024 take 1 capsule by mouth twice daily gabapentin (NEURONTIN) 400 mg capsule Indications: DM type 2 with diabetic peripheral neuropathy (HCC) Take 1 capsule by mouth two times a day for 180 days. 180 capsule 06/18/2024 08/17/2024 Discontinued (Course of therapy completed) Start: 12-23-2023 End: 03-22-2024 take 1 capsule by mouth twice daily gabapentin (NEURONTIN) 300 mg capsule Take 1 capsule by mouth two times a day for 90 days. 60 capsule 2 12/23/2023 02/14/2024 Discontinued Comment on above: Take 1 capsule by mo uth two times a day for 90 days. hydroCHLOROthiazide 12.5 mg oral capsule (20 sources) Thiazide Diuretic Start: 2024 take 1 capsule by mouth once daily Hydrochlorothiazide 12.5 mg capsule Active 12.5 mg PO DAILY February 16, 2025 12:00am Start: 10-07-2023 End: 11-19-2024 take 1 capsule by mouth once daily hydroCHLOROthiazide 12.5 mg capsule Indications: Essential hypertension Take 1 capsule by mouth once daily. 90 capsule 1 05/16/2024 11/19/2024 Discontinued (Course of therapy completed) Comment on above: Take 1 capsule by mo [facility] once daily. 3 ml insulin glargine 100 unt/ml pen injector (20 sources) Insulin Analog Start: 10-08-2024 insulin glargine (LANTUS SOLOSTAR U-100 INSULIN) 100 unit/mL (3 mL) Indications: DM type 2 with diabetic peripheral neuropathy (HCC) Inject 18 units subcutaneously at bedtime 10/08/2024 Active Start: 10-05-2024 End: 10-08-2024 insulin glargine (LANTUS ALFREDO OSTAR U-100 INSULIN) 100 unit/mL (3 mL) Indications: DM type 2 with diabetic peripheral neuropathy (HCC) Inject 20 Units subcutaneously daily at bedtime. 24 mL 1 10/05/2024 10/08/2024 Discontinued Start: 09-06-2024 End: 03-25-2025 insulin glargine (LANTUS ALFREDO OSTAR U-100 INSULIN) 100 unit/mL (3 mL) Indications: DM type 2 with diabetic peripheral neuropathy (HCC) Inject 26 Units subcutaneously daily at bedtime. 24 mL 1 09/06/2024 09/27/2024 Discontinued (Adjust Sig - Block E-Cancel) Start: 08-20-2024 End: 03-08-2025 insulin glargine (LANTUS ALFREDO OSTAR U-100 INSULIN) 100 unit/mL (3 mL) Indications: DM type 2 with diabetic peripheral neuropathy (HCC) Inject 28 Units subcutaneously daily at bedtime. 24 mL 1 08/20/2024 09/06/2024 Discontinued Start: 07-04-2024 End: 04-15-2025 insulin glargine (LANTUS ALFREDO OSTAR U-100 INSULIN) 100 unit/mL (3 mL) Indications: DM type 2 with diabetic peripheral neuropathy (HCC) Inject 24 Units subcutaneously daily at bedtime. 24 mL 1 09/27/2024 10/05/2024 Discontinued (Adjust Sig - Block E-Cancel) Start: 05-16-2024 End: 11-12-2024 insulin glargine (LANTUS ALFREDO OSTAR U-100 INSULIN) 100 unit/mL (3 mL) Indications: DM type 2 with diabetic peripheral neuropathy (HCC) Inject 22 Units subcutaneously daily at bedtime. 18 mL 1 05/16/2024 07/02/2024 Discontinued Start: 12-19-2023 End: 09-22-2024 insulin glargine (LANTUS ALFREDO OSTAR U-100 INSULIN) 100 unit/mL (3 mL) Indications: DM type 2 with diabetic peripheral neuropathy (HCC) Inject 20 Units subcutaneously daily at bedtime. 18 mL 1 03/26/2024 05/16/2024 Discontinued Start: 10-26-2023 End: 05-13-2024 insulin glargine (LANTUS ALFREDO OSTAR U-100 INSULIN) 100 unit/mL (3 mL) Indications: DM type 2 with diabetic peripheral neuropathy (HCC) Inject 40 Units subcutaneously daily at bedtime. 38 mL 1 11/15/2023 12/19/2023 Discontinued (Adjust Sig - Block E-Cancel) Start: 09-23-2023 End: 03-21-2024 inject 42 [IU] by subcutaneous injection once daily at bedtime insulin glargine (LANTUS SOLOSTAR U-100 INSULIN) 100 unit/mL (3 mL) Indications: DM type 2 with diabetic peripheral neuropathy (HCC) Inject 42 Units subcutaneously daily at bedtime. Inject 42 units subcutaneously at bedtime 38 mL 1 09/23/2023 10/26/2023 Discontinued (Adjust Sig - Block E-Cancel) Start: 06-19-2023 End: 12-16-2023 insulin glargine (LANTUS ALFREDO OSTAR U-100 INSULIN) 100 unit/mL (3 mL) Indications: DM type 2 with diabetic peripheral neuropathy (HCC) Inject 38 Units subcutaneously daily at bedtime. 35 mL 1 06/19/2023 12/16/2023 Active Start: 06-19-2023 End: 08-17-2023 insulin glargine (LANTUS ALFREDO OSTAR U-100 INSULIN) 100 unit/mL (3 mL) Indications: DM type 2 with diabetic peripheral neuropathy (HCC) Inject 38 Units subcutaneously daily at bedtime. 35 mL 1 06/19/2023 08/17/2023 Discontinued Start: 05-16-2023 End: 06-02-2023 insulin glargine (LANTUS ALFREDO OSTAR U-100 INSULIN) 100 unit/mL (3 mL) Indications: DM type 2 with diabetic peripheral neuropathy (HCC) Inject 38 Units subcutaneously daily at bedtime. 5 Each 0 06/02/2023 Active Start: 02-09-2023 End: 05-16-2023 insulin glargine (LANTUS ALFREDO OSTAR U-100 INSULIN) 100 unit/mL (3 mL) Indications: DM type 2 with diabetic peripheral neuropathy (HCC) Inject 36 Units subcutaneously daily at bedtime. 5 Each 0 02/09/2023 05/16/2023 Discontinued Start: 08-09-2022 End: 09-14-2022 insulin glargine (LANTUS ALFREDO OSTAR U-100 INSULIN) 100 unit/mL (3 mL) Indications: DM type 2 with diabetic peripheral neuropathy (HCC) Inject 34 Units subcutaneously daily at bedtime. 5 Each 0 09/14/2022 Active Start: 08-09-2022 insulin glargi ne (LANTUS SOLOSTAR U-100 INSULIN) 100 unit/mL (3 mL) Indications: DM type 2 with diabetic peripheral neuropathy (HCC) Inject 34 Units subcutaneously daily at bedtime. 15 Each 3 08/09/2022 Active Start: 05-11-2022 End: 08-09-2022 insulin glargine (LANTUS ALFREDO OSTAR U-100 INSULIN) 100 unit/mL (3 mL) Indications: DM type 2 with diabetic peripheral neuropathy (HCC) Inject 36 Units subcutaneously daily at bedtime. 15 Each 3 06/24/2022 08/09/2022 Discontinued (Adjust Sig - Block E-Cancel) Start: 11-18-2021 End: 05-11-2022 insulin glargine (LANTUS ALFREDO OSTAR U-100 INSULIN) 100 unit/mL (3 mL) Indications: DM type 2 with diabetic peripheral neuropathy (HCC) Inject 32 Units subcutaneously daily at bedtime. 15 Pen 3 05/05/2022 05/11/2022 Discontinued Start: 10-10-2020 End: 02-16-2025 inject 42 [IU] by subcutaneous injection at bedtime Insulin Glargine 100 UNITS/ML insulin pen Discontinued 42 U SQ AT BEDTIME October 10, 2020 1:00am February 16, 2025 6:29pm Start: 10-10-2020 inject 42 [IU] by duran bcutaneous injection at bedtime Insulin Glargine Active 42 UNITS SQ AT BEDTIME October 10, 2020 12:00am Start: 10-10-2020 inject 34 [IU] by duran bcutaneous injection at bedtime Insulin Glargine Active 34 UNITS SQ AT BEDTIME October 10, 2020 12:00am Start: 07-25-2020 End: 10-02-2020 insulin glargine (LANTUS ALFREDO OSTAR U-100 INSULIN) 100 unit/mL (3 mL) Indications: DM type 2 with diabetic peripheral neuropathy (HCC) Inject 38 Units subcutaneously daily at bedtime. 15 Pen 1 07/25/2020 10/02/2020 Discontinued Comment on above: Inject 32 Units subc utaneously daily at bedtime. Inject 36 Units subc utaneously daily at bedtime. Inject 34 Units subc utaneously daily at bedtime. Inject 38 Units subc utaneously daily at bedtime. Inject 42 units subc utaneously at bedtime Inject 42 Units subc utaneously daily at bedtime. Inject 42 units subcutaneously at bedtime Inject 40 Units subc utaneously daily at bedtime. Inject 42 units subcutaneously at bedtime Inject 40 Units subc utaneously daily at bedtime. Inject 20 Units subc utaneously daily at bedtime. 3 ml insulin lispro 100 unt/ml pen injector (20 sources) Insulin Analog Start: 02-16-2025 Insulin Lispro (Humalog Kwikpen Insulin) 100 unit/mL insulin pen Active SC February 16, 2025 12:00am Start: 12-20-2024 End: 03-20-2025 inject 8 [IU] by subcutaneous injection three times daily before mealtime insulin lispro (HUMALOG U-100 INSULIN) 100 unit/mL injection Indications: DM type 2 with diabetic peripheral neuropathy (HCC) Inject 8 Units subcutaneously three times a day before meals. 15 mL 12/20/2024 03/20/2025 Active Start: 11-19-2024 End: 02-17-2025 inject 6 [IU] by subcutaneous injection three times daily before mealtime insulin lispro (HUMALOG U-100 INSULIN) 100 unit/mL injection Indications: DM type 2 with diabetic peripheral neuropathy (HCC) Inject 6 Units subcutaneously three times a day before meals. 15 mL 11/19/2024 12/20/2024 Discontinued Start: 09-06-2024 End: 12-05-2024 inject 4 [IU] by subcutaneous injection three times daily before mealtime insulin lispro (HUMALOG U-100 INSULIN) 100 unit/mL injection Indications: DM type 2 with diabetic peripheral neuropathy (HCC) Inject 4 Units subcutaneously three times a day before meals. 15 mL 09/06/2024 11/19/2024 Discontinued Start: 10-10-2020 End: 09-03-2023 inject 6 [IU] by subcutaneous injection twice daily at mealtime Insulin Lispro 100 UNIT/ML insulin pen Discontinued 6 U SQ TWICE DAILY WITH MEALS October 10, 2020 1:00am September 03, 2023 3:48am lisinopril 2.5 mg oral tablet (20 sources) Angiotensin Converting Enzyme Inhibitor Start: 01-27-2023 End: 12-04-2024 take 1 tablet by mouth once daily lisinopril 2.5 mg tablet Indications: Essential hypertension Take 1 tablet by mouth once daily. 90 tablet 1 12/05/2024 Active Start: 02-24-2017 End: 09-14-2022 take 1 tablet by mouth once daily lisinopril 2.5 mg tablet Indications: Essential hypertension Take 1 tablet by mouth once daily. 7 tablet 0 09/14/2022 Active Comment on above: Take 1 tablet by sarai once daily. meclizine hydrochloride 25 mg oral tablet (20 sources) Antiemetic Start: take 1 tablet by mouth four times daily as needed for dizziness Meclizine 25 mg tablet Active 25 mg PO 4 TIMES DAILY NEEDED as needed for Dizziness September 02, 2023 1:00am take 1 tablet by mouth three magui es daily meclizine (ANTIVERT) 25 mg tab Take 25 mg by mouth three times a day. Active Comment on above: Take 25 mg by mouth three times a day. melatonin 10 mg oral capsule (20 sources) Start: 02-16-2025 take 1 capsule by mouth at bedtime Melatonin 10 mg capsule Active 10 mg PO AT BEDTIME February 16, 2025 12:00am Start: 09-03-2023 End: 02-16-2025 take 1 capsule by mouth at bedtime Melatonin 5 mg capsule Discontinued 5 mg PO AT BEDTIME September 03, 2023 1:00am February 16, 2025 6:24pm melatonin 3 mg T adeline by mouth daily at bedtime. Active Comment on above: Take by mouth daily at bedtime. methylPREDNISolone (3 sources) Corticosteroid Start: 2023 End: 2023 methylPREDNISolone (MEDROL, YVON,) 4 mg Dose-Pack Follow dosing instructions, take with food. 21 tablet 06/07/2024 06/13/2024 Active pramipexole dihydrochloride 0.25 mg oral tablet (20 sources) Nonergot Dopamine Agonist Start: 2022 End: 2024 take 1 tablet by mouth once daily at bedtime pramipexole (MIRAPEX) 0.25 mg tablet Indications: Restless leg syndrome Take 1 tablet by mouth daily at bedtime. 90 tablet 3 12/05/2024 Active Start: 02-24-2017 End: 09-14-2022 take 1 tablet by mouth once daily at bedtime pramipexole (MIRAPEX) 0.25 mg tablet Indications: Restless leg syndrome Take 1 tablet by mouth daily at bedtime. 90 tablet 1 01/27/2023 Active Comment on above: Take 1 tablet by sarai th daily at bedtime. predniSONE 20 mg oral tablet (11 sources) Start: 02-12-2025 End: 02-19-2025 take 1 tablet by mouth once daily predniSONE (DELTASONE) 20 mg tablet Take 1 tablet by mouth once daily for 7 days. 7 tablet 02/12/2025 02/19/2025 Active Start: 01-22-2025 End: 01-29-2025 take 2 tablets by mouth once daily predniSONE (DELTASONE) 20 mg tablet Indications: Neck pain , Acute hip pain, left Take 2 tablets by mouth once daily for 7 days. 14 tablet 01/22/2025 01/29/2025 Active Start: 06-06-2024 End: 06-18-2024 predniSONE (DELTASONE) 10 mg tablet Indications: Pain and swelling of right wrist Take 6 tabs for 3 days, then 4 tabs for 3 days, then 2 tabs for 3 days then 1 tab for 3 days with food. 39 tablet 06/06/2024 06/07/2024 Discontinued (Course of therapy completed) rosuvastatin calcium 20 mg oral tablet (20 sources) HMG-CoA Reductase Inhibitor Start: 02-15-2023 End: 05-18-2025 take 1 tablet by mouth at bedtime Rosuvastatin 20 mg tablet Active 20 mg PO AT BEDTIME September 03, 2023 1:00am Start: 11-11-2022 End: 02-09-2023 take 1 tablet by mouth once daily at bedtime rosuvastatin (CRESTOR) 20 mg tablet Take 1 tablet by mouth daily at bedtime. 90 tablet 0 11/11/2022 02/09/2023 Active Comment on above: Take 1 tablet by sarai th daily at bedtime. vitamin b12 1 mg oral tablet (20 sources) Vitamin B12 Start: 06-13-2024 cyanocobalamin (VITAMIN B-12) 1,000 mcg tab Take one tablet every other day Dx: pernicious anemia 06/13/2024 Active Start: 10-10-2020 take 1 capsule by mo uth once daily Cyanocobalamin (Vitamin B-12) 1,000 MCG capsule Active 1000 ug PO DAILY October 10, 2020 1:00am Start: 01-05-2013 End: 06-13-2024 take 1 tablet by mouth once daily cyanocobalamin (VITAMIN B-12) 1,000 mcg Tab Take 1 tablet by mouth once daily. Dx: pernicious anemia 90 tablet 3 01/05/2013 06/13/2024 Discontinued Comment on above: Take 1 tablet by sarai th once daily. Dx: pernicious anemia Completed/Discontinued Medications Medication Drug Class(es) Dates Sig (Normalized) Sig (Original) Benzocaine (1 source) Standardized Chemical Allergen Start: 07-12-2024 End: 07-12-2024 1 [place], TOPICAL, DIRECTED, Starting on [place] 07/12/24 at 0900, Until [place] 07/12/24 at 1259, Dosing as directed for intraprocedural use only - Pharmaceutical Waste: Aerosol -, Intraprocedure Blood-Glucose Meter monitoring kit (1 source) Start: 08-02-2023 End: 08-03-2023 Blood-Glucose Meter monitoring kit Indications: Type 2 diabetes mellitus with diabetic peripheral angiopathy without gangrene, with long-term current use of insulin (HCC) Glucose Meter of Choice - Kit - Dx: Type 2 DM - Controlled E11.9 1 Each 0 08/02/2023 08/03/2023 Comment on above: Glucose Meter of Cho ice - Kit - Dx: Type 2 DM - Controlled E11.9 calcium chloride 0.0014 meq/ml / potassium chloride 0.004 meq/ml / sodium chloride 0.103 meq/ml / sodium lactate 0.028 meq/ml injectable solution (1 source) Start: 07-12-2024 End: 07-12-2024 take 30 mL intravenously every hour 30 mL/hr, INTRAVENOUS, CONTINUOUS, Starting on [place] 07/12/24 at 0800, Until [place] 07/12/24 at 0937, Preprocedure cephalexin 500 mg oral capsule (20 sources) Cephalosporin Antibacterial Start: 09-02-2023 End: 12-07-2024 take 1 capsule by mouth three times daily Cephalexin 500 mg capsule Discontinued 500 mg PO THREE TIMES A DAY 08 04September 02, 2023 1:00am September 04, 2023 2:20pm Comment on above: Take 500 mg by mouth three times a day. cholecalciferol 0.01 mg oral tablet (20 sources) Vitamin D Start: 10-10-2020 End: 02-16-2025 take 1 tablet by mouth once daily Cholecalciferol (Vitamin D3) 10 MCG tablet Discontinued 10 ug PO DAILY October 10, 2020 1:00am February 16, 2025 6:28pm Start: 03-25-2015 End: 10-19-2024 take 1 capsule by mouth once daily Cholecalciferol, Vitamin D3, 1,000 unit cap Take 1 capsule by mouth once daily. 0 03/25/2015 10/19/2024 Discontinued (Discontinued by Patient) Comment on above: Take 1 capsule by [facility] once daily. ciprofloxacin 500 mg oral tablet (4 sources) Quinolone Antimicrobial Start: End: Ciprofloxacin Hcl 500 MG tablet Discontinued 500 mg PO TWICE A DAY October 11, 2020 1:00am September 03, 2023 3:45am next dose tonight 10/11 colchicine 0.6 mg oral tablet (1 source) Start: End: colchicine 0.6 mg tablet Indications: Acute right ankle pain Take 2 tabs by mouth, followed by 1 tab one hour later for gout flare. May repeat in 1 week. 6 tablet 08/19/2020 07/22/2021 Discontinued cyclobenzaprine hydrochloride 10 mg oral tablet (2 sources) Muscle Relaxant Start: 025 End: 025 take 1 tablet by mouth twice daily as needed for pain Cyclobenzaprine 10 mg tablet Discontinued 10 mg PO TWICE DAILY NEEDED as needed for pain February 16, 2025 12:00am February 16, 2025 6:28pm Start: 02-08-2025 End: 02-12-2025 take 1 tablet by mouth every twelve hours as needed cyclobenzaprine (FLEXERIL) 10 mg tablet Take 1 tablet by mouth two times a day as needed for pain. 60 tablet 02/08/2025 02/12/2025 Discontinued (Side Effects) 1 ml fentaNYL 0.05 mg/ml injection (1 source) Opioid Agonist Start: 07-12-2024 End: 07-12-2024 25-100 mcg, INTRAVENOUS, DIRECTED, Starting on [place] 07/12/24 at 0900, Until [place] 07/12/24 at 1259, DOSING DIRECTED BY PHYSICIAN FOR PROCEDURAL SEDATION ONLY, Intraprocedure fluconazole 150 mg oral tablet (6 sources) Azole Antifungal Start: 11-19-2024 End: 12-11-2024 take 1 tablet by mouth every week fluconazole (DIFLUCAN) 150 mg tablet Indications: Tinea cruris Take 1 tablet by mouth one time a week for 4 doses. 4 tablet 11/19/2024 12/07/2024 Discontinued gemfibrozil 600 mg oral tablet (4 sources) Peroxisome Proliferator Receptor alpha Agonist Start: 02-24-2017 End: 09-03-2023 take 1 tablet by mouth at bedtime Gemfibrozil 600 MG tablet Discontinued 600 mg PO AT BEDTIME February 24, 2017 12:00am September 03, 2023 3:51am glipiZIDE er 2.5 mg 24 hr extended release oral tablet (20 sources) Sulfonylurea Start: 01-20-2022 End: 02-16-2025 take 1 tablet by mouth once daily Glipizide 2.5 mg tablet extended release 24hr Discontinued 2.5 mg PO DAILY September 03, 2023 1:00am February 16, 2025 6:27pm Start: 02-24-2017 End: 02-16-2025 take 1 tablet by mouth once daily glipiZIDE (GLUCOTROL XL) 5 mg 24 hr tablet Indications: DM type 2 with diabetic peripheral neuropathy (HCC) Take 1 tablet by mouth once daily. 90 tablet 3 11/03/2021 01/20/2022 Discontinued Comment on above: Take 1 tablet by sarai once daily. hydroCHLOROthiazide 25 mg / spironolactone 25 mg oral tablet (20 sources) Thiazide Diuretic, Aldosterone Antagonist Start: 023 End: take 1 tablet by mouth once daily Spironolacton-[place] chlorothiaz 25-25 mg tablet Discontinued 0.5 {tbl} PO DAILY September 03, 2023 1:00am February 16, 2025 6:29pm Start: 09-03-2023 take 0.5 tablet by mouth once daily Spironolacton-Hydrochlorothiaz Active 0. 5 TABLET PO DAILY September 03, 2023 12:00am Start: 03-10-2023 End: 08-08-2023 take 0.5 tablet by mouth once daily spironolactone-hctz 25/25 (ALDACTAZIDE) 25-25 mg per tablet Indications: Essential hypertension Take 0.5 tablets by mouth once daily. 45 tablet 1 08/09/2023 Active Start: 11-03-2021 End: 09-14-2022 take 0.5 tablet by mouth once daily spironolactone-hctz 25/25 (ALDACTAZIDE) 25-25 mg per tablet Indications: Essential hypertension Take 0.5 tablets by mouth once daily. 45 tablet 1 03/10/2023 Active Start: 07-18-2020 End: 04-13-2021 take 0.5 tablet by mouth once daily spironolactone-hctz 25/25 (ALDACTAZIDE) 25-25 mg per tablet Indications: Essential hypertension Take 0.5 tablets by mouth once daily. 45 tablet 1 07/18/2020 04/13/2021 Discontinued Start: 02-24-2017 End: 09-03-2023 Spironolacton-Hydrochlorothi az (Aldactazide) 1 EACH tablet Discontinued 0.5 {tbl} PO DAILY February 24, 2017 12:00am September 03, 2023 3:49am Comment on above: Take 0.5 tablets by mouth once daily. ammonium lactate 120 mg/ml topical lotion (20 sources) Start: End: ammonium lactate (LAC-HYDRIN) 12 % lotion Indications: Dry skin , DM type 2 with diabetic peripheral neuropathy (HCC) Apply 1 application to affected area as needed for Dry Skin. 1 Bottle 1 09/22/2018 12/07/2024 Discontinued Comment on above: Apply 1 application to affected area as needed for Dry Skin. metoprolol tartrate 25 mg oral tablet (20 sources) beta-Adrenergic Mee Start: 3 End: take 1 tablet by mouth twice daily metoprolol tartrate, short acting, (LOPRESSOR) 25 mg tablet Indications: Essential hypertension Take 1 tablet by mouth two times a day. 180 tablet 1 08/09/2023 Active Start: 02-24-2017 End: 02-16-2025 take 1 tablet by mouth twice daily metoprolol tartrate, short acting, (LOPRESSOR) 25 mg tablet Indications: Essential hypertension Take 1 tablet by mouth twice daily. 180 tablet 1 03/10/2023 Active Comment on above: Take 1 tablet by sarai th twice daily. Take 1 tablet by sarai th two times a day. metroNIDAZOLE 500 mg oral tablet (4 sources) Nitroimidazole Antimicrobial Start: 10-11-2020 End: 09-03-2023 Metronidazole 500 MG tablet Discontinued 500 mg PO THREE TIMES A DAY October 11, 2020 1:00am September 03, 2023 3:51am next dose tonight 10/11 5 ml midazolam 1 mg/ml injection (1 source) Benzodiazepine Start: 07-12-2024 End: 07-12-2024 1-5 mg, INTRAVENOUS, DIRECTED, Starting on [place] 07/12/24 at 0900, Until [place] 07/12/24 at 1259, DOSING DIRECTED BY PHYSICIAN FOR PROCEDURAL SEDATION ONLY, Intraprocedure Miscellaneous Medical Supply (BLOOD PRESSURE CUFF) (20 sources) Start: 09-23-2023 End: 12-07-2024 Miscellaneous Medical Supply (BLOOD PRESSURE CUFF) 1 Each once daily. 1 Each 09/23/2023 12/07/2024 Discontinued Start: 09-23-2023 Miscellaneous Medical Supply (BLOOD PRESSURE CUFF) 1 Each once daily. 1 Each 09/23/2023 Active Start: 09-23-2023 Miscellaneous Medical Supply (BLOOD PRESSURE CUFF) 1 Each once daily. 1 Each 0 09/23/2023 Active Comment on above: 1 Each once daily. omeprazole 20 mg delayed release oral capsule (15 sources) Proton Pump Inhibitor Start: 07-23-20 End: 11-20-19 take 1 capsule by mouth once daily omeprazole (PRILOSEC) 20 mg capsule Take 1 capsule by mouth once daily. 90 capsule 07/23/2024 11/19/2024 Discontinued (Course of therapy completed) ondansetron 4 mg disintegrating oral tablet (20 sources) Serotonin-3 Receptor Antagonist Start: 09-02-20 End: 09-03-20 take 1 tablet by mouth every eight hours as needed for nausea Ondansetron 4 mg tablet,disintegratin g Discontinued 4 mg PO EVERY 8 HOURS NEEDED as needed for Nausea September 02, 2023 1:00am September 03, 2023 3:51am End: 12-07-2024 take 1 tablet by mouth every eight hours as needed ondansetron (ZOFRAN) 4 mg tablet Take 4 mg by mouth every 8 hours as needed for nausea/vomiting. 12/07/2024 Discontinued Comment on above: Take 4 mg by mouth e very 8 hours as needed for nausea/vomiting. pravastatin sodium 80 mg oral tablet (20 sources) HMG-CoA Reductase Inhibitor Start: 02-25-20 End: 09-03-20 take 1 tablet by mouth at bedtime Pravastatin 80 MG tablet Discontinued 80 mg PO AT BEDTIME February 24, 2017 12:00am September 03, 2023 3:50am Comment on above: Take 1 tablet by sarai th once daily. Problems Active Problems Problem Classification Problem Date Documented Da te Episodic/Chronic Acquired foot deformities (2 sources) Hammer toe; Translations: [Other hammer toe(s) (acquired), left foot] Onset: 01-18-2025 01-18-2025 Chronic Acquired foot deformities (2 sources) Hammer toe; Translations: [Other hammer toe(s) (acquired), right foot] Onset: 01-18-2025 01-18-2025 Chronic Acute cerebrovascular disease (3 sources) Ischemic stroke; Translations: [Cerebral infarction due to unspecified occlusion or stenosis of left middle cerebral artery] Onset: 02-16-2025 02-16-2025 Chronic Blindness and vision defects (4 sources) Visual disturbance; Translations: [Unspecified visual disturbance] 10-10-2020 Episodic Cancer of cervix (4 sources) Malignant tumor of cervix; Translations: [Malignant neoplasm of cervix uteri, unspecified] 02-24-2017 Chronic Cardiac dysrhythmias (3 sources) Atrial fibrillation; Translations: [Unspecified atrial fibrillation] Onset: 02-16-2025 02-16-2025 Chronic Chronic kidney disease (20 sources) Chronic kidney disease stage 3; Translations: [CKD (chronic kidney disease) stage 3, GFR 30-59 ml/min] Onset: 04-12-2014 04-12-2014 Chronic Chronic kidney disease (1 source) Chronic kidney disease; Translations: [Stage 3b chronic kidney disease (HCC)] Onset: 11-05-2022 Complications of surgical procedures or medical care (1 source) Drug-induced hypotension; Translations: [Hypotension due to drugs] 11-20-2024 Episodic Conditions associated with dizziness or vertigo (13 sources) Lightheadedness; Translations: [Dizziness and giddiness] 10-10-2020 Episodic Deficiency and other anemia (2 sources) Anemia; Translations: [Anemia, unspecified] 06-08-2024 Episodic Diabetes mellitus with complications (20 sources) Type 2 diabetes mellitus; Translations: [Type 2 diabetes mellitus with diabetic polyneuropathy] Onset: 10-11-2014 Resolved: 11-24-2015 Chronic Disorders of lipid metabolism (20 sources) Mixed hyperlipidemia; Translations: [Mixed hyperlipidemia] Onset: 10-14-2015 Resolved: 10-14-2015 10-14-2015 Chronic Diverticulosis and diverticulitis (20 sources) Diverticulosis of colon; Translations: [Diverticulosis of large intestine without perforation or abscess without bleeding] Onset: 11-12-2008 11-12-2008 Chronic E Codes: Fall (2 sources) Fall in home; Translations: [Unspecified fall, initial encounter] Episodic Essential hypertension (20 sources) Essential hypertension; Translations: [Essential (primary) hypertension] Onset: 10-14-2015 Resolved: 10-14-2015 10-14-2015 Chronic Gout and other crystal arthropathies (20 sources) Gouty arthritis of right hand; Translations: [Gout, unspecified] Onset: 12-11-2024 Chronic Hypertension with complications and secondary hypertension (19 sources) Hypertensive renal disease; Translations: [Hypertensive chronic kidney disease with stage 1 through stage 4 chronic kidney disease, or unspecified chronic kidney disease] Onset: 11-05-2022 11-05-2022 Chronic Immunizations and screening for infectious disease (2 sources) Needs influenza immunization; Translations: [Encounter for immunization] Episodic Intestinal infection (1 source) Viral gastroenteritis; Translations: [Viral intestinal infection, unspecified] Episodic Mycoses (12 sources) Onychomycosis; Translations: [Tinea unguium] Onset: 01-18-2025 Episodic Osteoarthritis (20 sources) Arthritis of left hip; Translations: [Unilateral primary osteoarthritis, left hip] Onset: 11-08-2023 10-17-2023 Chronic Other circulatory disease (1 source) Congestion of throat; Translations: [Other specified symptoms and signs involving the circulatory and respiratory systems] 07-23-2024 Episodic Other connective tissue disease (10 sources) Pain of toe of right foot; Translations: [Pain in right toe(s)] Episodic Other connective tissue disease (10 sources) Pain of toe of left foot; Translations: [Pain in left toe(s)] Episodic Other connective tissue disease (17 sources) History of lumbar fusion; Translations: [Arthrodesis status] Onset: 12-11-2024 12-11-2024 Episodic Other connective tissue disease (1 source) Pain in right toe(s); Translations: [Pain in toe of right foot] Onset: 01-18-2025 Episodic Other connective tissue disease (1 source) Pain in left toe(s); Translations: [Pain in toe of left foot] Onset: 01-18-2025 Episodic Other endocrine disorders (2 sources) Hypoglycemia; Translations: [Hypoglycemia, unspecified] 11-15-2023 Chronic Other hereditary and degenerative nervous system conditions (20 sources) Restless legs; Translations: [Restless legs syndrome] 10-19-2017 Chronic Other hereditary and degenerative nervous system conditions (1 source) Restless legs syndrome; Translations: [Restless leg syndrome] Onset: 10-19-2017 Chronic Other inflammatory condition of skin (1 source) Intertrigo; Translations: [Erythema intertrigo] 05-16-2024 Episodic Other injuries and conditions due to external causes (1 source) Injury of toe of right foot; Translations: [Unspecified injury of right foot, initial encounter] Episodic Other injuries and conditions due to external causes (1 source) At high risk for fall; Translations: [History of falling] 09-06-2024 Episodic Other injuries and conditions due to external causes (1 source) Closed injury of head; Translations: [Unspecified injury of head, initial encounter] 02-16-2025 Episodic Other nervous system disorders (20 sources) Carpal tunnel syndrome of right wrist; Translations: [Carpal tunnel syndrome, right upper limb] Onset: 11-09-2022 Chronic Other nervous system disorders (1 source) Carpal tunnel syndrome of left wrist; Translations: [Carpal tunnel syndrome, left upper limb] 12-03-2024 Chronic Other nervous system disorders (1 source) Carpal tunnel syndrome, left upper limb; Translations: [Carpal tunnel syndrome of left wrist] Onset: 12-13-2024 Chronic Other nervous system disorders (1 source) Expressive dysphasia; Translations: [Aphasia] 02-16-2025 Chronic Other nervous system disorders (1 source) Aphasia; Translations: [Aphasia] Onset: 02-21-2025 Chronic Other nervous system disorders (4 sources) Paresthesia of hand ; Translations: [Anesthesia of skin] 09-06-2024 Episodic Other non-traumatic joint disorders (2 sources) Pain in wrist; Translations: [Pain in right wrist] 06-06-2024 Episodic Other non-traumatic joint disorders (1 source) Acute ankle pain; Translations: [Pain in right ankle and joints of right foot] 08-19-2020 Episodic Other non-traumatic joint disorders (15 sources) Hip pain; Translations: [Pain in left hip] Onset: 01-24-2025 01-22-2025 Episodic Other non-traumatic joint disorders (1 source) Pain in left hip; Translations: [Acute hip pain, left] Onset: 01-24-2025 Episodic Other nutritional; endocrine; and metabolic disorders (4 sources) Obese class I; Translations: [Obesity, unspecified] 02-24-2017 Chronic Other nutritional; endocrine; and metabolic disorders (17 sources) Body mass index 30+ - obesity; Translations: [Body mass index (BMI) 30.0-30.9, adult] Onset: 12-11-2024 12-11-2024 Chronic Peripheral and visceral atherosclerosis (20 sources) Peripheral vascular disease, unspecified; Translations: [Peripheral vascular disease, unspecified] Onset: 05-02-2014 09-14-2021 Chronic Residual codes; unclassified (1 source) Other specified postprocedural states; Translations: [S/P carpal tunnel release] Onset: 12-20-2024 Episodic Screening and history of mental health and substance abuse codes (17 sources) Ex-smoker; Translations: [Personal history of nicotine dependence] Onset: 12-11-2024 12-11-2024 Episodic Spondylosis; intervertebral disc disorders; other back problems (20 sources) Low back pain; Translations: [Lumbago] Onset: 01-24-2025 Resolved: 06-15-2016 06-15-2016 Episodic Transient cerebral ischemia (2 sources) Transient cerebral ischemic attack, unspecified; Translations: [Transient cerebral ischemic attack, unspecified] Onset: 02-16-2025 Chronic Unclassified (1 source) History of colonic polyps; Translations: [History of colonic polyps] Onset: 07-12-2024 Urinary tract infections (4 sources) Urinary tract infectious disease; Translations: [Urinary tract infection, site not specified] 09-02-2023 Episodic Past or Other Problems Problem Classification Problem Date Documented Da te Episodic/Chronic Cancer of cervix (20 sources) History of malignant neoplasm of cervix; Translations: [Personal history of malignant neoplasm of cervix uteri] Onset: 09-08-2023 09-21-2023 Episodic Cancer of uterus (20 sources) Malignant neoplasm of corpus uteri, excluding isthmus; Translations: [Malignant neoplasm of corpus uteri, unspecified] Resolved: 11-24-2015 11-24-2015 Chronic Deficiency and other anemia (20 sources) Pernicious anemia; Translations: [Vitamin B12 deficiency anemia due to intrinsic factor deficiency] Onset: 08-25-2012 08-25-2012 Episodic Deficiency and other anemia (1 source) Anemia, unspecified; Translations: [Mild anemia] Onset: 06-12-2024 Episodic Hemorrhoids (20 sources) Internal hemorrhoids; Translations: [Other hemorrhoids] Onset: 11-12-2008 Resolved: 10-14-2015 10-14-2015 Episodic Other and unspecified benign neoplasm (20 sources) Benign neoplasm of colon; Translations: [Benign neoplasm of colon, unspecified] Onset: 11-12-2008 Resolved: 11-24-2015 11-24-2015 Episodic Other and unspecified benign neoplasm (20 sources) Adenomatous polyp of rectum; Translations: [Benign neoplasm of rectum] Onset: 02-25-2011 Resolved: 11-24-2015 11-24-2015 Episodic Other and unspecified benign neoplasm (20 sources) History of polyp of colon; Translations: [History of colonic polyps] Onset: 07-12-2024 06-19-2024 Episodic Other connective tissue disease (20 sources) Triggering of digit; Translations: [Trigger finger, right middle finger] Onset: 11-20-2015 11-20-2015 Episodic Other connective tissue disease (20 sources) Disorder of rotator cuff; Translations: [Other specified disorders of rotator cuff syndrome of shoulder and allied disorders] Onset: 02-16-2006 Resolved: 10-18-2016 10-18-2016 Episodic Other gastrointestinal disorders (20 sources) Occult blood in stools; Translations: [Other fecal abnormalities] Onset: 07-12-2024 06-19-2024 Episodic Other gastrointestinal disorders (1 source) Other fecal abnormalities; Translations: [Positive fecal occult blood test] Onset: 07-12-2024 Episodic Other inflammatory condition of skin (1 source) Erythema intertrigo; Translations: [Intertrigo] Onset: 05-16-2024 Episodic Other injuries and conditions due to external causes (1 source) History of falling; Translations: [At high risk for falls] Onset: 09-06-2024 Episodic Other nervous system disorders (1 source) Anesthesia of skin; Translations: [Numbness and tingling in left hand] Onset: 10-22-2024 Episodic Other nervous system disorders (1 source) Paresthesia of skin; Translations: [Numbness and tingling in left hand] Onset: 10-22-2024 Episodic Other non-traumatic joint disorders (1 source) Pain in right wrist; Translations: [Pain and swelling of right wrist] Onset: 06-06-2024 Episodic Other non-traumatic joint disorders (1 source) Effusion, right wrist; Translations: [Pain and swelling of right wrist] Onset: 06-06-2024 Episodic Other screening for suspected conditions (not mental disorders or infectious disease) (20 sources) Patient encounter status; Translations: [Encounter for screening for malignant neoplasm of colon] Onset: 11-12-2008 Resolved: 11-24-2015 11-24-2015 Episodic Results Test Name Value Interpretation Reference Range Facility CBC,PLATELETSon 02-21-2025 Hematocrit (Bld) [Volume fraction] 33.5 % Low 34.9-44.3 [facility] Comment on above: Performed By: #### H EMOGC #### [facility] (DEFAULT) [address] [address] Hemoglobin (Bld) [Mass/Vol] 11.0 g/dL Low 11.4-15.2 [facility] Comment on above: Performed By: #### H EMOGC #### [facility] (DEFAULT) [address] [place] [address] MCV (RBC) [Entitic vol] 90.8 fL Normal 79.6-97.7 [facility] Comment on above: Performed By: #### H EMOGC #### [facility] (DEFAULT) [address] [address] Mean Cell Hgb 29.8 pg Normal 25.9-33.9 [facility] Comment on above: Performed By: #### H EMOGC #### [facility] (DEFAULT) [address] [address] Mean Cell Hgb Conc 32.8 g/dL Normal 31.4-35.9 [facility] Comment on above: Performed By: #### H EMOGC #### [facility] (DEFAULT) [address] [place] [address] Platelet mean volume (Bld) [Entitic vol] 9.3 fL Normal 8.5-12.2 [facility] Comment on above: Performed By: #### H EMOGC #### [facility] (DEFAULT) [address] [place] [address] Platelets (Bld) [#/Vol] 292 10*3/uL Normal 150-393 [facility] Comment on above: Performed By: #### H EMO #### [facility] (DEFAULT) [address] [place] [address] RBC (Bld) [#/Vol] 3.69 10*6/uL Low 3.91-5.04 [facility] Comment on above: Performed By: #### H EMO #### [facility] (DEFAULT) [address] [place] [address] RBC Distribution 15.2 % High 10.8-14.9 [facility] Comment on above: Performed By: #### H EMO #### [facility] (DEFAULT) [address] [place] [address] WBC (Bld) [#/Vol] 10.48 10*3/uL Normal 3.99-11.19 [facility] Comment on above: Performed By: #### H [facility] #### [facility] (DEFAULT) [address] [place] [address] CHEM 7 (LYTES,BUN,CREA,GLUC) on 02-21-2025 Anion gap [Moles/Vol] 13 mmol/L Normal 7-17 [facility] Comment on above: Performed By: #### L ABHSTI1, C7ED, LIPDR, HFP #### [facility] (DEFAULT) [address] [place] [address] Chloride [Moles/Vol] 103 mmol/L Normal 98-108 [facility] Comment on above: Performed By: #### L ABHSTI1, C7ED, LIPDR, HFP #### [facility] (DEFAULT) [address] [place] [address] CO2 [Moles/Vol] 23 mmol/L Normal 21-31 [facility] Comment on above: Performed By: #### L ABHSTI1, C7ED, LIPDR, HFP #### [facility] (DEFAULT) [address] [place] [address] Creatinine [Mass/Vol] 1.19 mg/dL Normal 0.50-1.20 [facility] Comment on above: Performed By: #### Venita MARIEED, LIPDR, HFP #### [facility] (DEFAULT) [address] [place] [address] GFR/1.73 sq M.predicted among non-blacks MDRD (S/P/Bld) [Vol rate/Area] 44 mL/min/{1.73_m2} Low >=60 [facility] Comment on above: Result Comment: Repo rted eGFR is based on the CKD-EPI 2020 equation using creatinine, age, and sex. Performed By: #### L Venita MALHOTRAED, LIPDR, HFP #### [facility] (DEFAULT) [address] [place] [address] Glucose [Mass/Vol] 138 mg/dL Normal Nonfastin -179 mg/dL; Fastin-99 [facility] Comment on above: Performed By: #### L Venita MALHOTRAED, LIPDR, HFP #### [facility] (DEFAULT) [address] [place] [address] Osmolality [Osmolality] 288 mosm/kg Normal 278-305 [facility] Comment on above: Performed By: #### L Venita MLAHOTRAED, LIPDR, HFP #### [facility] (DEFAULT) [address] [place] [address] Potassium [Moles/Vol] 4.1 mmol/L Normal 3.5-5.0 [facility] Comment on above: Performed By: #### L JESSITI1, VenitaED, LIPDR, HFP #### [facility] (DEFAULT) [address] [place] [address] Sodium [Moles/Vol] 135 mmol/L Normal 135-145 [facility] Comment on above: Performed By: #### L ABDALJITTI1, C7ED, LIPDR, HFP #### [facility] (DEFAULT) [address] [place] [address] Urea nitrogen [Mass/Vol] 17 mg/dL Normal 7-25 [facility] Comment on above: Performed By: #### L ABHSTI1, C7ED, LIPDR, HFP #### [facility] (DEFAULT) [address] [place] [address] Urea nitrogen/Creatinine [Mass ratio] 14 mg/mg Normal [facility] Comment on above: Performed By: #### L ABHSTI1, C7ED, LIPDR, HFP #### [facility] (DEFAULT) [address] [place] [address] MAGNESIUMon 02-21-2025 Magnesium [Mass/Vol] 2.3 mg/dL Normal 1.6-2.6 [facility] Comment on above: Performed By: #### L ABHSTI1, C7ED, LIPDR, HFP #### [facility] (DEFAULT) [address] [place] [address] PLATELET COUNTon 02-21-2025 Platelet mean volume (Bld) [Entitic vol] 9.4 fL Normal 8.5-12.2 [facility] Comment on above: Performed By: #### L ABHSTI1, C7ED, LIPDR, HFP #### [facility] (DEFAULT) [address] [place] [address] Platelets (Bld) [#/Vol] 305 10*3/uL Normal 150-393 [facility] Comment on above: Performed By: #### L ABHSTI1, C7ED, LIPDR, HFP #### [facility] (DEFAULT) [address] [place] [address] CHEM 7 (LYTES,BUN,CREA,GLUC) on 02-20-2025 Anion gap [Moles/Vol] 14 mmol/L Normal 7-17 [facility] Comment on above: Performed By: #### C HM7, MGO #### [facility] (DEFAULT) [address] [place] [address] Chloride [Moles/Vol] 104 mmol/L Normal 98-108 [facility] Comment on above: Performed By: #### Nic GANDHI, MGO #### [facility] (DEFAULT) [address] [place] [address] CO2 [Moles/Vol] 20 mmol/L Low 21-31 [facility] Comment on above: Performed By: #### Nic GANDHI, MGO #### [facility] (DEFAULT) [address] [place] [address] Creatinine [Mass/Vol] 1.05 mg/dL Normal 0.50-1.20 [facility] Comment on above: Performed By: #### Nic GANDHI, MGO #### [facility] (DEFAULT) [address] [place] [address] GFR/1.73 sq M.predicted among non-blacks MDRD (S/P/Bld) [Vol rate/Area] 51 mL/min/{1.73_m2} Low >=60 [facility] Comment on above: Result Comment: Repo rted eGFR is based on the CKD-EPI 2020 equation using creatinine, age, and sex. Performed By: #### Nic GANDHI, MGO #### [facility] (DEFAULT) [address] [place] [address] [id number] Glucose [Mass/Vol] 151 mg/dL Normal Nonfastin -179 mg/dL; Fastin-99 [facility] Comment on above: Performed By: #### Nic GANDHI, MGO #### [facility] (DEFAULT) [address] [place] [address] 97780 Osmolality [Osmolality] 286 mosm/kg Normal 278-305 [facility] Comment on above: Performed By: #### Nic GANDHI, MGO #### [facility] (DEFAULT) [address] [place] [address] 02689 Potassium [Moles/Vol] 3.4 mmol/L Low 3.5-5.0 [facility] Comment on above: Performed By: #### Nic GANDHI, MGO #### [facility] (DEFAULT) [address] [place] [address] 90487 Sodium [Moles/Vol] 135 mmol/L Normal 135-145 [facility] Comment on above: Performed By: #### C HM7, MGO #### [facility] (DEFAULT) [address] [place] [address] 74076 Urea nitrogen [Mass/Vol] 15 mg/dL Normal 7-25 [facility] Comment on above: Performed By: #### C HM7, MGO #### [facility] (DEFAULT) [address] [place] [address] 41227 Urea nitrogen/Creatinine [Mass ratio] 14 mg/mg Normal [facility] Comment on above: Performed By: #### Nic HM7, MGO #### [facility] (DEFAULT) [address] [place] [address] 65681 MAGNESIUMon 02-20-2025 Magnesium [Mass/Vol] 1.7 mg/dL Normal 1.6-2.6 [facility] Comment on above: Performed By: #### C HM7, MGO #### [facility] (DEFAULT) [address] [place] [address] 04973 CBC,PLATELETSon 02-19-2025 Hematocrit (Bld) [Volume fraction] 37.0 % Normal 34.9-44.3 [facility] Comment on above: Performed By: #### H EMOGC #### [facility] (DEFAULT) [address] [place] [address] 22444 Hemoglobin (Bld) [Mass/Vol] 12.3 g/dL Normal 11.4-15.2 [facility] Comment on above: Performed By: #### H EMOGC #### [facility] (DEFAULT) [address] [place] [address] 03560 MCV (RBC) [Entitic vol] 89.8 fL Normal 79.6-97.7 [facility] Comment on above: Performed By: #### H EMOGC #### [facility] (DEFAULT) [address] [place] [address] 02095 Mean Cell Hgb 29.9 pg Normal 25.9-33.9 [facility] Comment on above: Performed By: #### H EMOGC #### [facility] (DEFAULT) [address] [place] [address] 35946 Mean Cell Hgb Conc 33.2 g/dL Normal 31.4-35.9 [facility] Comment on above: Performed By: #### H EMOGC #### [facility] (DEFAULT) [address] [place] [address] 63769 Platelet mean volume (Bld) [Entitic vol] 9.1 fL Normal 8.5-12.2 [facility] Comment on above: Performed By: #### H EMOGC #### [facility] (DEFAULT) [address] [place] [address] 44842 Platelets (Bld) [#/Vol] 318 10*3/uL Normal 150-393 [facility] Comment on above: Performed By: #### H EMOGC #### [facility] (DEFAULT) [address] [place] [address] 56723 RBC (Bld) [#/Vol] 4.12 10*6/uL Normal 3.91-5.04 [facility] Comment on above: Performed By: #### H EMOGC #### [facility] (DEFAULT) [address] [address] RBC Distribution 15.5 % High 10.8-14.9 [facility] Comment on above: Performed By: #### H EMOGC #### [facility] (DEFAULT) [address] [address] WBC (Bld) [#/Vol] 10.46 10*3/uL Normal 3.99-11.19 [facility] Comment on above: Performed By: #### H EMOGC #### [facility] (DEFAULT) [address] [place] [address] 41494 CHEM 7 (LYTES,BUN,CREA,GLUC) on 02-19-2025 Anion gap [Moles/Vol] 14 mmol/L Normal 7-17 [facility] Comment on above: Performed By: #### L ABHSTI1, C7ED, LIPDR, HFP #### [facility] (DEFAULT) [address] [place] [address] 07057 Chloride [Moles/Vol] 107 mmol/L Normal 98-108 [facility] Comment on above: Performed By: #### L ABHSTI1, C7ED, LIPDR, HFP #### [facility] (DEFAULT) [address] [place] [address] 13487 CO2 [Moles/Vol] 23 mmol/L Normal 21-31 [facility] Comment on above: Performed By: #### L ABHSTI1, C7ED, LIPDR, HFP #### [facility] (DEFAULT) [address] [place] [address] 37828 Creatinine [Mass/Vol] 1.11 mg/dL Normal 0.50-1.20 [facility] Comment on above: Performed By: #### L ABHSTI1, C7ED, LIPDR, HFP #### [facility] (DEFAULT) [address] [place] [address] 75168 GFR/1.73 sq M.predicted among non-blacks MDRD (S/P/Bld) [Vol rate/Area] 48 mL/min/{1.73_m2} Low >=60 [facility] Comment on above: Result Comment: Repo rted eGFR is based on the CKD-EPI 2020 equation using creatinine, age, and sex. Performed By: #### L ABHSTI1, C7ED, LIPDR, HFP #### [facility] (DEFAULT) [address] [place] [address] 02979 Glucose [Mass/Vol] 166 mg/dL Normal Nonfastin -179 mg/dL; Fastin-99 [facility] Comment on above: Performed By: #### L ABHSTI1, C7ED, LIPDR, HFP #### [facility] (DEFAULT) [address] [place] [address] 53875 Osmolality [Osmolality] 297 mosm/kg Normal 278-305 [facility] Comment on above: Performed By: #### L ABHSTI1, C7ED, LIPDR, HFP #### [facility] (DEFAULT) [address] [place] [address] 23132 Potassium [Moles/Vol] 3.7 mmol/L Normal 3.5-5.0 [facility] Comment on above: Performed By: #### L ABHSTI1, C7ED, LIPDR, HFP #### [facility] (DEFAULT) [address] [place] [address] 34311 Sodium [Moles/Vol] 140 mmol/L Normal 135-145 [facility] Comment on above: Performed By: #### L ABHSTI1, C7ED, LIPDR, HFP #### [facility] (DEFAULT) [address] [place] [address] 26926 Urea nitrogen [Mass/Vol] 15 mg/dL Normal 7-25 [facility] Comment on above: Performed By: #### L ABHSTI1, C7ED, LIPDR, HFP #### [facility] (DEFAULT) [address] [place] [address] 37147 Urea nitrogen/Creatinine [Mass ratio] 14 mg/mg Normal [facility] Comment on above: Performed By: #### L ABHSTI1, C7ED, LIPDR, HFP #### [facility] (DEFAULT) [address] [place] [address] 80894 MAGNESIUMon 02-19-2025 Magnesium [Mass/Vol] 2.0 mg/dL Normal 1.6-2.6 [facility] Comment on above: Performed By: #### L ABHSTI1, C7ED, LIPDR, HFP #### [facility] (DEFAULT) [address] [place] [address] 52299 XR CHEST 1 VIEW PORTABLEon 0 02-19-2025 XR CHEST 1 VIEW PORTABLE EXAM: XR CHEST 1 VIEW PORTABLE, 02/19/2025 12:13 PM COMPARISON: No prior studies available for comparison. CLINICAL INDICATIONS: confusion, has stroke eval for asp pna RELEVANT CLINICAL HISTORY: FINDINGS: (Adequate technique) Implanted Devices: None Thorax: Small left pleural effusion and left basilar atelectasis. No consolidation. Unremarkable cardiac silhouette. No acute osseous abnormality. IMPRESSION: Small left pleural effusion and left basilar atelectasis. No consolidation. Normal [facility] AMMONIAon 02-18-2025 Ammonia (P) [Moles/Vol] 34 umol/L Normal 6-47 [facility] Comment on above: Performed By: #### L ABHSTI1, C7ED, LIPDR, HFP #### [facility] (DEFAULT) [address] [address] CBC,PLATELETSon 02-18-2025 Hematocrit (Bld) [Volume fraction] 33.6 % Low 34.9-44.3 [facility] Comment on above: Performed By: #### L ABDALJITTI1, C7ED, LIPDR, HFP #### [facility] (DEFAULT) [address] [address] Hemoglobin (Bld) [Mass/Vol] 10.9 g/dL Low 11.4-15.2 [facility] Comment on above: Performed By: #### L ABHSTI1, C7ED, LIPDR, HFP #### [facility] (DEFAULT) [address] [address] MCV (RBC) [Entitic vol] 90.3 fL Normal 79.6-97.7 [facility] Comment on above: Performed By: #### L ABHSTI1, C7ED, LIPDR, HFP #### [facility] (DEFAULT) [address] [address] Mean Cell Hgb 29.3 pg Normal 25.9-33.9 [facility] Comment on above: Performed By: #### L ABHSTI1, C7ED, LIPDR, HFP #### [facility] (DEFAULT) [address] [place] [address] 77748 Mean Cell Hgb Conc 32.4 g/dL Normal 31.4-35.9 [facility] Comment on above: Performed By: #### L ABHSTI1, C7ED, LIPDR, HFP #### [facility] (DEFAULT) [address] [place] [address] 15532 Platelet mean volume (Bld) [Entitic vol] 9.5 fL Normal 8.5-12.2 [facility] Comment on above: Performed By: #### L ABHSTI1, C7ED, LIPDR, HFP #### [facility] (DEFAULT) [address] [place] [address] 52941 Platelets (Bld) [#/Vol] 294 10*3/uL Normal 150-393 [facility] Comment on above: Performed By: #### L ABHSTI1, C7ED, LIPDR, HFP #### [facility] (DEFAULT) [address] [place] [address] 07412 RBC (Bld) [#/Vol] 3.72 10*6/uL Low 3.91-5.04 [facility] Comment on above: Performed By: #### L ABHSTI1, C7ED, LIPDR, HFP #### [facility] (DEFAULT) [address] [place] [address] 45759 RBC Distribution 15.4 % High 10.8-14.9 [facility] Comment on above: Performed By: #### L ABHSTI1, C7ED, LIPDR, HFP #### [facility] (DEFAULT) [address] [place] [address] 27793 WBC (Bld) [#/Vol] 10.34 10*3/uL Normal 3.99-11.19 [facility] Comment on above: Performed By: #### L ABHSTI1, C7ED, LIPDR, HFP #### [facility] (DEFAULT) [address] [place] [address] 97745 CHEM 7 (LYTES,BUN,CREA,GLUC) on 02-18-2025 Anion gap [Moles/Vol] 12 mmol/L Normal 7-17 [facility] Comment on above: Performed By: #### L ABHSTI1, C7ED, LIPDR, HFP #### [facility] (DEFAULT) [address] [place] [address] 05464 Chloride [Moles/Vol] 105 mmol/L Normal 98-108 [facility] Comment on above: Performed By: #### L ABHSTI1, C7ED, LIPDR, HFP #### [facility] (DEFAULT) [address] [place] [address] 79436 CO2 [Moles/Vol] 24 mmol/L Normal 21-31 [facility] Comment on above: Performed By: #### L ABHSTI1, C7ED, LIPDR, HFP #### [facility] (DEFAULT) [address] [place] [address] 07658 Creatinine [Mass/Vol] 1.12 mg/dL Normal 0.50-1.20 [facility] Comment on above: Performed By: #### L ABHSTI1, C7ED, LIPDR, HFP #### [facility] (DEFAULT) [address] [place] [address] 18187 GFR/1.73 sq M.predicted among non-blacks MDRD (S/P/Bld) [Vol rate/Area] 47 mL/min/{1.73_m2} Low >=60 [facility] Comment on above: Result Comment: Repo rted eGFR is based on the CKD-EPI 2020 equation using creatinine, age, and sex. Performed By: #### L ABHSTI1, C7ED, LIPDR, HFP #### [facility] (DEFAULT) [address] [place] [address] 00452 Glucose [Mass/Vol] 125 mg/dL Normal Nonfastin -179 mg/dL; Fastin-99 [facility] Comment on above: Performed By: #### L JESSITI1, VenitaED, LIPDR, HFP #### [facility] (DEFAULT) [address] [place] [address] 62159 Osmolality [Osmolality] 291 mosm/kg Normal 278-305 [facility] Comment on above: Performed By: #### L STEPHANIE1, VenitaED, LIPDR, HFP #### [facility] (DEFAULT) [address] [place] [address] 65379 Potassium [Moles/Vol] 3.7 mmol/L Normal 3.5-5.0 [facility] Comment on above: Performed By: #### L JESSITI1, VenitaED, LIPDR, HFP #### [facility] (DEFAULT) [address] [place] [address] 69453 Sodium [Moles/Vol] 137 mmol/L Normal 135-145 [facility] Comment on above: Performed By: #### L ROSCOE, VenitaED, LIPDR, HFP #### [facility] (DEFAULT) [address] [place] [address] 91606 Urea nitrogen [Mass/Vol] 21 mg/dL Normal 7-25 [facility] Comment on above: Performed By: #### L JESSITI1, C7ED, LIPDR, HFP #### [facility] (DEFAULT) [address] [place] [address] 89277 Urea nitrogen/Creatinine [Mass ratio] 19 mg/mg Normal [facility] Comment on above: Performed By: #### L JESSITI1, VenitaED, LIPDR, HFP #### [facility] (DEFAULT) [address] [place] [address] 39688 Lavonne 02-18-2025 CELSA Telephone ([facility] MARLENYCHARLETTE ([id number]) 1935 F Date Time Provider Department 02/18/25 MARIBEL FAY During your visit today, we recorded the following information about you: Cheryl Billy RN 02/18/2025 11:47 AM Signed Patient's Daughter calls and states that patient had a stroke over the weekend. Patient was taken down to [facility]. Patient is currently in A-Fibrillation. Daughter thinks patient will be in hospital for over a week. Daughter states that patient will be put on blood thinners. BERNADETTE Chahal Christopher B, MD 02/18/2025 11:58 AM Signed I am so sorry to hear this. Please let me know if she needs anything. She has appointment with me today, this needs cancelled. Duyen Bey LPN 02/19/2025 12:43 PM Signed Message left on daughter's VM with provider's message. Duyen Bey LPN Allergies As of Date: 02/18/2025 Noted Allergy Reaction FLEXERIL (CYCLOBENZAPRINE) 02/12/2025 1 - Mental Status Change LIPITOR (ATORVASTATIN) 07/19/2007 5 - Intolerance Comments: myalgia SIMVASTATIN 07/19/2007 5 - Intolerance Comments: myalgia Date Reviewed: 02/12/2025 Reviewed by: Maribel Fay MD - Fully Assessed Reason for Visit: Patient Update [1234] Prescriptions as of 02/19/2025 - predniSONE (DELTASONE) 20 mg tablet Take 1 tablet by mouth once daily for 7 days. - insulin lispro (HUMALOG U-100 INSULIN) 100 unit/mL injection Inject 8 Units subcutaneously three times a day before meals. - aspirin 81 mg chewable tablet Take 81 mg by mouth once daily. - lancets (TRUEPLUS LANCETS) 33 gauge Use with blood glucose test two times a day. Insulin Dep? Yes - pramipexole (MIRAPEX) 0.25 mg tablet Take 1 tablet by mouth daily at bedtime. - lisinopril 2.5 mg tablet Take 1 tablet by mouth once daily. - Insulin Volborg, Disposable, (PEN NEEDLE) 29 gauge x 1/2 One needle three times daily. Dx: 250.02 Insulin: yes - blood sugar diagnostic (TRUE METRIX GLUCOSE TEST STRIP) test strip Test 3 times daily DX:250.02 Insulin: Yes - gabapentin (NEURONTIN) 600 mg tablet Take 1 tablet by mouth two times a day for 90 days. - insulin glargine (LANTUS SOLOSTAR U-100 INSULIN) 100 unit/mL (3 mL) Inject 18 units subcutaneously at bedtime - cyanocobalamin (VITAMIN B-12) 1,000 mcg tab Take one tablet every other day Dx: pernicious anemia - allopurinol (ZYLOPRIM) 100 mg tablet Take 1 tablet by mouth two times a day. - Acetaminophen 500 mg cap Take 2 capsules by mouth two times a day as needed for pain. Reports will utilize 1 500mg tab 1-2 times in between the 1000 mg doses - meclizine (ANTIVERT) 25 mg tab Take 25 mg by mouth as needed. - melatonin 3 mg Take by mouth daily at bedtime. - COMPOUNDED PRESCRIPTION Cock up wrist splint, right Medium. To be worn nightly to prevent carpal tunnel symptoms. Dx: carpal tunnel right - Blood-Glucose Meter, Drum-type (ACCU-CHEK COMPACT PLUS CARE) Misc Kit 1 Each. Accu-Check Compact Plus Meter Diagnosis: Diabetes Mellitus Problem List As Of Date 02/18/2025 Noted Resolved Other specified disorders of rotator cuff syndr*02/16/2006 10/18/2016 Malignant neoplasm of corpus uteri, except isth* 11/24/2015 HYPERLIPIDEMIA NEC/NOS [E78.5] 10/14/2015 Lumbago [M54.50] 06/15/2016 DIABETES MELLITUS TYPE II UNCONTR UNCOMPL [IMO0* 07/18/2014 HYPERTENSION NOS [I10] 10/14/2015 Special screening for malignant neoplasms, colo*11/12/2008 11/24/2015 Benign neoplasm of colon [D12.6] 11/12/2008 11/24/2015 Diverticulosis of colon [K57.30] 11/12/2008 Internal hemorrhoids without mention of complic*11/12/2008 10/14/2015 Tubular adenoma of rectum [D12.8] 02/25/2011 11/24/2015 Pernicious anemia [D51.0] 08/25/2012 Medicare annual wellness visit, initial [Z00.00]09/28/2013 11/24/2015 Stage 3b chronic kidney disease (HCC) [N18.32] 04/12/2014 PAD (peripheral artery disease) (HCC) [I73.9] 05/02/2014 Medicare annual wellness visit, subsequent [Z00*10/11/2014 11/24/2015 Diabetes mellitus with neuropathy (HCC) [E11.40]10/11/2014 11/24/2015 Essential hypertension [I10] 10/14/2015 Mixed hyperlipidemia [E78.2] 10/14/2015 DM type 2 with diabetic peripheral neuropathy (*11/12/2015 Trigger middle finger of right hand [M65.331] 11/20/2015 Trigger finger, left ring finger [M65.342] 08/25/2017 Restless leg syndrome [G25.81] Type 2 diabetes mellitus with diabetic chronic *08/15/2023 Type 2 diabetes mellitus with diabetic peripher*11/05/2022 Carpal tunnel syndrome, right [G56.01] 11/09/2022 Stage 4 chronic kidney disease (HCC) [N18.4] 09/08/2023 Personal history of malignant neoplasm of cervi*09/08/2023 Diagnosed: 1996 Arthritis of left hip [M16.12] 11/08/2023 History of colonic polyps [Z86.0100] 07/12/2024 Positive fecal occult blood test [R19.5] 07/12/2024 History of lumbar fusion [Z98.1] 12/11/2024 Gout [M10.9] 12/11/2024 Former smok (more content not included)... Normal [facility] CT ANGIO BRAINon 02-18-2025 CT ANGIO BRAIN EXAM: CT ANGIO BRAIN , 02/17/2025 06:27 AM CLINICAL INDICATIONS: 89 years Female Stroke RELEVANT CLINICAL HISTORY: Repeat CTA head needs to be done 2 -6hr after study drug injection. Study drug was given at 106a 02/17/25. Therefore repeat CTA can be done anytime between 02/17/25 306a to 706am. Medical necessity note in epic chart already for contrast. Please contact Dr. Lyssa Waters with any questions. [phone]. Thank you!; COMPARISON: CT ANGIO BRAIN/NECK February 16, 2025 TECHNIQUE: A series of transaxial multislice computerized tomographic images are obtained with helical technique from below skull base through the vertex following bolus intravenous administration of nonionic contrast. Axial thin section source images, as well as sagittal and coronal thin section reformats, were provided at the scanner. Additional multiplanar and 3D reconstructions were provided. CONTRAST: iohexol (OMNIPAQUE) 350 MG/ML injection 1-171 mL; Route of Administration: Intravenous; Dose: 80 mL. FINDINGS: INTERNAL CAROTID ARTERIES: Patent and normal in caliber. ANTERIOR CEREBRAL ARTERIES: Patent and normal in caliber. MIDDLE CEREBRAL ARTERIES: Patent and normal in caliber. POSTERIOR CEREBRAL ARTERIES: Patent and normal in caliber. VERTEBRAL ARTERIES: Patent and normal in caliber. BASILAR ARTERY: Patent. No significant stenosis. OTHER: No aneurysm or AVM. Unchanged lytic lesion in the left parietal calvarium. IMPRESSION: No evidence of stenoses or occlusions identified in the CTA of the brain. Normal [facility] CT HEAD WITHOUT CONTRASTon 0 02-18-2025 CT HEAD WITHOUT CONTRAST EXAM: CT HEAD WITHOUT CONTRAST, 02/18/2025 11:20 AM COMPARISON: CT HEAD WITHOUT CONTRAST February 17, 2025 CLINICAL INDICATIONS: 89 years Female L M1 LVO recanalized, got trial drug, eval for hemorrhagic transformation RELEVANT CLINICAL HISTORY: TECHNIQUE: A series of transaxial computerized tomographic images are obtained from base of skull to vertex without intravenous contrast. Axial whole-head and thin section posterior fossa slices are provided. Reformats: Sagittal and coronal. FINDINGS: There is some loss of huynh-white differentiation the left insular ribbon (series 2 image 16). No hemorrhagic transformation. Extensive patchy and confluent periventricular and in the white matter hypoattenuation which is non-specific, but likely due to chronic small vessel ischemic changes. No acute intracranial hemorrhage is seen. No significant mass effect or midline shift. Ventricles are normal in size and configuration for patient age. Unchanged lytic lesion within the left parietal bone. Additional nonspecific scattered lucencies throughout the calvarium. Evidence of prior bilateral cataract surgery. Visualized paranasal sinuses are clear. Visualized mastoid air cells are clear. IMPRESSION: There is some loss of huynh-white differentiation the left insular ribbon (series 2 image 16). No hemorrhagic transformation. Normal [facility] ECHOCARDIOGRAMon 02-18-2025 Echocardiography PACs during the stud y. Normal left ventricular size with borderline wall thickness & concentric remodeling. Normal systolic function, LVEF 55-60%. Grade II diastolic dysfunction. Normal right ventricular size with normal systolic function. No significant valvular heart disease. Mild RVSP elevation, estimated at 39 mmHg. Table formatting from the original result was not included. Images from the original result were not included. [facility] Facility [facility] Patient Information Patient Name Charlette Farmer Legal Sex Female Indication for Exam Priority: Routine Dx: TIA (transient ischemic attack) [G45.9 (ICD-10-CM)] Order Question Reason for Exam Stroke Interpretation Summary Result History is available. PACs during the study. Normal left ventricular size with borderline wall thickness & concentric remodeling. Normal systolic function, LVEF 55-60%. Grade II diastolic dysfunction. Normal right ventricular size with normal systolic function. No significant valvular heart disease. Mild RVSP elevation, estimated at 39 mmHg. Findings Left Ventricle Left ventricle not well visualized. Chamber size is normal. End-diastolic volume is normal. Normal wall thickness. Concentric remodeling is present. Normal global systolic function. Regional wall motion is normal. The ejection fraction is 60%. Ejection fraction is normal (55 - 60%). Diastolic function is consistent with pseudonormalization (grade II). Right Ventricle Chamber size is normal. Systolic function is normal. Estimated right ventricular systolic pressure is 39 mmHg. Right ventricular S' is 10.30 cm/s. Tricuspid annular plane systolic excursion is 1.70 cm. Left Atrium Chamber size is moderately-severely enlarged. Right Atrium Chamber size is mildly enlarged. Septum The atrial septum is normal. No evidence of patent foramen ovale determined by color flow. Mitral Valve Normal appearing leaflets. Leaflet mobility is normal. Trace regurgitation. No valve stenosis. Aortic Valve Trileaflet valve. Leaflet mobility is normal. Trace regurgitation. No stenosis. LVOT diameter: 1.80 cm. Mean gradient: 4 mmHg. Dimensionless Index by VTI: 0.61. Dimensionless Index by VMAX: 0.72. Valve area continuity VMAX: 1.83 cm2. Valve area continuity VTI: 1.55 cm2. The valve Vmax is 1.24 m/s. Tricuspid Valve Normal leaflets. Leaflet mobility is normal. Mild regurgitation directed toward the septum. No stenosis. Pulmonary artery/right heart systolic pressure is elevated, estimated at 35-40mmHg. Estimated right ventricular systolic pressure is 39 mmHg. Estimated right atrial pressure is 3.00 mmHg. Pulmonic Valve Trace regurgitation. No stenosis. Peak gradient is 3 mmHg. Mean gradient is 1 mmHg. Aorta No dilation to extent seen. SOV: 2.90 cm. STJ: 2.40 cm. Ascendin.70 cm. Pericardium Trivial pericardial effusion. IVC/SVC The inferior vena cava is reduced. The inferior vena cava structure is normal. 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 Left Heart Measurements LV - Systole LVIDD 3.4 cm IVS 1 cm LVIDS 2.5 cm PW 1 cm LV RWT 0.59 LV Mass Index 58.5 g/m2 LV EDV BP 70 mL LV ESV BP 28 mL BP EF 60 % LV stroke volume BP (ml) 42 mL LV stroke volume index BP 24.85 mL/m2 LV - Diastole MV pk E moises 0.6 m/s MV pk A moises 0.68 m/s E/A ratio 0.88 e' septal pk moises 0.07 m/s e' lateral pk moises 0.08 m/s Avg e' pk moises 0.07 m/s E/e' septal ratio 8.62 E/e' lateral ratio 7.77 Avg E/e' ratio 8.2 LV - HCM AV LVOT peak gradient 3 mmHg Left Atrium LA ESV SP 4CH (MOD) 72 mL LA ESV SP 2CH (MOD) 74 mL LA ESV BP (MOD) index 47 mL/m2 Right Heart Measurements RV - 2D RV basal diam 3.1 cm RV mid diam 2.6 cm RV long diam 6.5 cm RV - Doppler TAPSE 1.7 cm RV S' 10.3 cm/s Right Atrium RA vol index 4CH (MOD) 29.59 mL/m2 EST RAP 3 mmHg Great Vessels Aortic Root - End Diastolic Sinus 2.9 cm STJ 2.4 cm Ascending aorta 2.7 cm Inferior Vena Cava IVC ostium 1.1 cm Doppler Measurements - Aortic Valve Stenosis LVOT diameter 1.8 cm LVOT area 2.54 cm2 LVOT peak moises 0.89 m/s LVOT peak VTI 17.4 cm Stroke Volume 44 cm/mL Stroke volume index 26 Ao peak moises 1.24 m/s Ao VTI 28.6 cm AV peak gradient 6 mmHG AV mean gradient 4 mmHg DI (VTI) 0.61 m/2 DI (Vmax) 0.72 MARTITA (continuity Vmax) 1.83 cm2 MARTITA index (continuity Vmax) 1.08 m/s MARTITA (continuity VTI) 1.55 cm2 MARTITA index (continuity VTI) 0.92 cm2/m2 LVOT stroke volume 44 cm3 LVOT stroke volume index 26.19 ml/m2 Doppler (more content not included)... Normal [facility] HEPATIC FUNCTION PANELon Albumin [Mass/Vol] 3.2 g/dL Low 3.5-5.0 [facility] Comment on above: Performed By: #### L ABHSTI1, C7ED, LIPDR, HFP #### [facility] (DEFAULT) [address] [place] [address]756 ALP [Catalytic activity/Vol] 66 U/L Normal 32-126 [facility] Comment on above: Performed By: #### L ABHSTI1, C7ED, LIPDR, HFP #### [facility] (DEFAULT) [address] [place] [address] 35691 ALT [Catalytic activity/Vol] 6 U/L Low 9-48 [facility] Comment on above: Performed By: #### L ABHSTI1, C7ED, LIPDR, HFP #### [facility] (DEFAULT) [address] [place] [address] 81033 AST [Catalytic activity/Vol] 11 U/L Normal 10-39 [facility] Comment on above: Performed By: #### L ABHSTI1, C7ED, LIPDR, HFP #### [facility] (DEFAULT) [address] [place] [address] 65548 Bilirubin [Mass/Vol] 0.3 mg/dL Normal <1.5 [facility] Comment on above: Performed By: #### L ABHSTI1, C7ED, LIPDR, HFP #### [facility] (DEFAULT) [address] [place] [address] 36499 Bilirubin.indirect [Mass/Vol] 0.1 mg/dL Normal <0.3 [facility] Comment on above: Performed By: #### L ABHSTI1, C7ED, LIPDR, HFP #### [facility] (DEFAULT) [address] [place] [address] 11058 Protein [Mass/Vol] 5.7 g/dL Low 6.4-8.3 [facility] Comment on above: Result Comment: Resu lts inconsistent with previous results Performed By: #### L ABHSTI1, C7ED, LIPDR, HFP #### [facility] (DEFAULT) [address] [place] [address] MAGNESIUMon 02-18-2025 Magnesium [Mass/Vol] 2.1 mg/dL Normal 1.6-2.6 [facility] Comment on above: Performed By: #### L ABHSTI1, C7ED, LIPDR, HFP #### [facility] (DEFAULT) [address] [place] [address] 68296 MRI BRAIN STROKE WITHOUT CON TRASTon 02-18-2025 MRI BRAIN STROKE WITHOUT CONTRAST EXAM: MRI BRAIN STROKE WITHOUT CONTRAST, 02/18/2025 16:38 PM COMPARISON: CT HEAD WITHOUT CONTRAST February 18, 2025 CLINICAL INDICATIONS: 89 years Female Stroke RELEVANT CLINICAL HISTORY: MRI brain needs to be done 18-54hrs after study drug injection. TECHNIQUE: A series of multisequence, multiplanar images of the brain are obtained without intravenous contrast according to acute stroke protocol. Study includes diffusion-weighted images. Study was performed at 1.5 Tanesha. FINDINGS: Small and tiny areas of diffusion restriction in the left MCA territory involving the parietal lobe, posterior temporal lobe, insula and external capsule, and lateral thalamus, compatible with acute left MCA territory infarcts. No evidence of hemorrhagic transformation. Moderate patchy and confluent periventricular and deep cerebral white matter FLAIR signal hyperintensities which are nonspecific, but compatible with chronic small vessel ischemic changes. Several scattered foci of magnetic susceptibility in the right greater than left cerebral hemispheres which are predominantly located near the huynh-white matter junction. Tiny remote infarcts in the right cerebellum. No extracerebral collection. Sellar and parasellar structures are unremarkable. Ventricles and sulci are within normal limits. Nonspecific small T1 hypointense lesion within the left parietal calvarium (series 5 image 7). Paranasal sinuses and mastoid air cells are generally clear. Prior bilateral cataract surgery.. IMPRESSION: Small and tiny acute left MCA territory infarcts, as described above. No evidence of hemorrhagic transformation. Presumed sequela of moderate chronic small vessel ischemic changes. Several scattered remote microhemorrhages in the right greater than left cerebral hemispheres, in a predominantly peripheral distribution, most suggestive of cerebral amyloid angiopathy. Other less likely possibilities include hypertensive microangiopathy and multiple cavernomas. Indeterminate small marrow replacing lesion involving the left parietal calvarium. Normal [facility] PT,INR,PTTon 02-18-2025 aPTT Coag (Bld) [Time] 26.6 s Normal 24.0-34.3 [facility] Comment on above: Performed By: #### L ROSCOE, VenitaED, LIPDR, HFP #### [facility] (DEFAULT) [address] [address] INR Coag (PPP) [Relative time] 1.1 {INR} Normal 0.9-1.1 [facility] Comment on above: Performed By: #### L ABDALJITTI1, C7ED, LIPDR, HFP #### [facility] (DEFAULT) [address] [address] PT Coag (PPP) [Time] 13.9 s Normal 11.9-14.2 [facility] Comment on above: Performed By: #### L ABHSTI1, C7ED, LIPDR, HFP #### [facility] (DEFAULT) [address] [address] URINALYSIS REFLEX TO CULTURE PERFORMABLEon 02-18-2025 Appearance (U) Clear Normal Clear [facility] Comment on above: Order Comment: Acute Coronary Syndrome (ACS): Initial Evaluation and Management: [email or web address]://[facility]/sites/ebm/Documents/Guidelines/Acu te%20Coronary%20Syndrome.pdf#search=troponin Performed By: #### L ABHSTI1, C7ED, LIPDR, HFP #### [facility] (DEFAULT) [address] [place] [address] Bacteria PRESENT Abnormal ABSENT [facility] Comment on above: Order Comment: Acute Coronary Syndrome (ACS): Initial Evaluation and Management: https://[facility]/sites/ebm/Documents/Guidelines/Acu te%20Coronary%20Syndrome.pdf#search=troponin Performed By: #### L ABHSTI1, C7ED, LIPDR, HFP #### [facility] (DEFAULT) [address] [address] Blood Urine Negative Normal Negative [facility] Comment on above: Order Comment: Acute Coronary Syndrome (ACS): Initial Evaluation and Management: [email or web address]/sites/ebm/Documents/Guidelines/Acu te%20Coronary%20Syndrome.pdf#search=troponin Performed By: #### L ABHSTI1, C7ED, LIPDR, HFP #### [facility] (DEFAULT) [address] [place] [address]396 Color (U) Yellow Normal Yellow [facility] Comment on above: Order Comment: Acute Coronary Syndrome (ACS): Initial Evaluation and Management: https://[facility]/sites/ebm/Documents/Guidelines/Acu te%20Coronary%20Syndrome.pdf#search=troponin Performed By: #### L ABHSTI1, C7ED, LIPDR, HFP #### [facility] (DEFAULT) [address] [place] [address]38 Glucose Ql (U) Negative Normal Negative [facility] Comment on above: Order Comment: Acute Coronary Syndrome (ACS): Initial Evaluation and Management: https://[facility]/sites/ebm/Documents/Guidelines/Acu te%20Coronary%20Syndrome.pdf#search=troponin Performed By: #### L JESSITI1, VenitaED, LIPDR, HFP #### [facility] (DEFAULT) [address] [address] Ketones Ql (U) Negative Normal Negative [facility] Comment on above: Order Comment: Acute Coronary Syndrome (ACS): Initial Evaluation and Management: https://[facility]/sites/ebm/Documents/Guidelines/Acu te%20Coronary%20Syndrome.pdf#search=troponin Performed By: #### L STEPHANIE1VIRAJ, MATT, HFP #### [facility] (DEFAULT) [address] [address] Leukocyte esterase Test strip Ql (U) Negative Normal Negative [facility] Comment on above: Order Comment: Acute Coronary Syndrome (ACS): Initial Evaluation and Management: [email or web address]://[facility]/sites/ebm/Documents/Guidelines/Acu te%20Coronary%20Syndrome.pdf#search=troponin Performed By: #### L STEPHANIE1, VenitaED, LIPDR, HFP #### [facility] (DEFAULT) [address] [address] Nitrites Urine Negative Normal Negative [facility] Comment on above: Order Comment: Acute Coronary Syndrome (ACS): Initial Evaluation and Management: https://[facility]/sites/ebm/Documents/Guidelines/Acu te%20Coronary%20Syndrome.pdf#search=troponin Performed By: #### L JESSITI1, VenitaED, LIPDR, HFP #### [facility] (DEFAULT) [address] [address] pH (U) 6.0 [pH] Normal 5.0-7.0 [facility] Comment on above: Order Comment: Acute Coronary Syndrome (ACS): Initial Evaluation and Management: https[facility]/sites/ebm/Documents/Guidelines/Acu te%20Coronary%20Syndrome.pdf#search=troponin Performed By: #### L ABHSTI1, C7ED, LIPDR, HFP #### [facility] (DEFAULT) [address] [address] Protein Urine Negative Normal Negative [facility] Comment on above: Order Comment: Acute Coronary Syndrome (ACS): Initial Evaluation and Management: https://[facility]/sites/ebm/Documents/Guidelines/Acu te%20Coronary%20Syndrome.pdf#search=troponin Performed By: #### L ABHSTI1, C7ED, LIPDR, HFP #### [facility] (DEFAULT) [address] [address] RBC Urine 0-2 Normal 0-2 [facility] Comment on above: Order Comment: Acute Coronary Syndrome (ACS): Initial Evaluation and Management: https://[facility]/sites/ebm/Documents/Guidelines/Acu te%20Coronary%20Syndrome.pdf#search=troponin Performed By: #### L ABHSTI1, C7ED, LIPDR, HFP #### [facility] (DEFAULT) [address] [address] Specific [place] Urine 1.008 Normal 1.001-1.035 [facility] Comment on above: Order Comment: Acute Coronary Syndrome (ACS): Initial Evaluation and Management: https://[facility]/sites/ebm/Documents/Guidelines/Acu te%20Coronary%20Syndrome.pdf#search=troponin Performed By: #### L ABHSTI1, C7ED, LIPDR, HFP #### [facility] (DEFAULT) [address] [address] Squamous/Epithelial Cells, Urine 0-2/hpf Normal 0-2/hpf, 3-5/hpf = 1+ [facility] Comment on above: Order Comment: Acute Coronary Syndrome (ACS): Initial Evaluation and Management: https://[facility]/sites/ebm/Documents/Guidelines/Acu te%20Coronary%20Syndrome.pdf#search=troponin Performed By: #### L ABHSTI1, C7ED, LIPDR, HFP #### [facility] (DEFAULT) [address] [place] [address] Urobilinogen Urine 0.2 E.U./dL Normal 0.2 E.U/d L, 1.0 E.U/dL [facility] Comment on above: Order Comment: Acute Coronary Syndrome (ACS): Initial Evaluation and Management: https://[facility]/sites/ebm/Documents/Guidelines/Acu te%20Coronary%20Syndrome.pdf#search=troponin Performed By: #### L ABHSTI1, C7ED, LIPDR, HFP #### [facility] (DEFAULT) [address] [address] WBC Urine 0 - 5 Normal 0 - 5 [facility] Comment on above: Order Comment: Acute Coronary Syndrome (ACS): Initial Evaluation and Management: https://[facility]/sites/ebm/Documents/Guidelines/Acu te%20Coronary%20Syndrome.pdf#search=troponin Performed By: #### L ABHSTI1, C7ED, LIPDR, HFP #### [facility] (DEFAULT) [address] [address] CBC,PLATELETSon 02-17-2025 Hematocrit (Bld) [Volume fraction] 36.3 % Normal 34.9-44.3 [facility] Comment on above: Performed By: #### L ABHSTI1, C7ED, LIPDR, HFP #### [facility] (DEFAULT) [address] [address] Hemoglobin (Bld) [Mass/Vol] 11.9 g/dL Normal 11.4-15.2 [facility] Comment on above: Performed By: #### L ABHSTI1, C7ED, LIPDR, HFP #### [facility] (DEFAULT) [address] [place] [address] MCV (RBC) [Entitic vol] 89.6 fL Normal 79.6-97.7 [facility] Comment on above: Performed By: #### L ABHSTI1, C7ED, LIPDR, HFP #### [facility] (DEFAULT) [address] [place] [address] 60970 Mean Cell Hgb 29.4 pg Normal 25.9-33.9 [facility] Comment on above: Performed By: #### L ABHSTI1, C7ED, LIPDR, HFP #### [facility] (DEFAULT) [address] [place] [address] 15045 Mean Cell Hgb Conc 32.8 g/dL Normal 31.4-35.9 [facility] Comment on above: Performed By: #### L ABHSTI1, C7ED, LIPDR, HFP #### [facility] (DEFAULT) [address] [place] [address] Platelet mean volume (Bld) [Entitic vol] 9.7 fL Normal 8.5-12.2 [facility] Comment on above: Performed By: #### L ABHSTI1, C7ED, LIPDR, HFP #### [facility] (DEFAULT) [address] [place] [address] Platelets (Bld) [#/Vol] 314 10*3/uL Normal 150-393 [facility] Comment on above: Performed By: #### L ABHSTI1, C7ED, LIPDR, HFP #### [facility] (DEFAULT) [address] [place] [address]16 RBC (Bld) [#/Vol] 4.05 10*6/uL Normal 3.91-5.04 [facility] Comment on above: Performed By: #### L ABHSTI1, C7ED, LIPDR, HFP #### [facility] (DEFAULT) [address] [place] [address]385 RBC Distribution 15.0 % High 10.8-14.9 [facility] Comment on above: Performed By: #### L JESSITI1, VenitaED, LIPDR, HFP #### [facility] (DEFAULT) [address] [place] [address]65 WBC (Bld) [#/Vol] 11.78 10*3/uL High 3.99-11.19 [facility] Comment on above: Performed By: #### L ABDALJITTI1, C7ED, LIPDR, HFP #### [facility] (DEFAULT) [address] [place] [address] CHEM 7 (LYTES,BUN,CREA,GLUC) on 02-17-2025 Anion gap [Moles/Vol] 15 mmol/L Normal 7-17 [facility] Comment on above: Performed By: #### Greg BOWENTI1, VenitaED, LIPDR, HFP #### [facility] (DEFAULT) [address] [place] [address] Chloride [Moles/Vol] 98 mmol/L Normal 98-108 [facility] Comment on above: Performed By: #### L ABDALJITTI1, C7ED, LIPDR, HFP #### [facility] (DEFAULT) [address] [place] [address]146 CO2 [Moles/Vol] 24 mmol/L Normal 21-31 [facility] Comment on above: Performed By: #### L ABDALJITTI1, C7ED, LIPDR, HFP #### [facility] (DEFAULT) [address] [place] [address] Creatinine [Mass/Vol] 1.04 mg/dL Normal 0.50-1.20 [facility] Comment on above: Performed By: #### L ABHSTI1, C7ED, LIPDR, HFP #### [facility] (DEFAULT) [address] [place] [address] GFR/1.73 sq M.predicted among non-blacks MDRD (S/P/Bld) [Vol rate/Area] 51 mL/min/{1.73_m2} Low >=60 [facility] Comment on above: Result Comment: Repo rted eGFR is based on the CKD-EPI 2020 equation using creatinine, age, and sex. Performed By: #### L ABDALJITTI1, C7ED, LIPDR, HFP #### [facility] (DEFAULT) [address] [place] [address] Glucose [Mass/Vol] 322 mg/dL High Nonfastin -179 mg/dL; Fastin-99 [facility] Comment on above: Performed By: #### L ABDALJITTI1, C7ED, LIPDR, HFP #### [facility] (DEFAULT) [address] [place] [address]86 Osmolality [Osmolality] 298 mosm/kg Normal 278-305 [facility] Comment on above: Performed By: #### L ABHSTI1, C7ED, LIPDR, HFP #### [facility] (DEFAULT) [address] [place] [address] Potassium [Moles/Vol] 4.2 mmol/L Normal 3.5-5.0 [facility] Comment on above: Performed By: #### L ABHSTI1, C7ED, LIPDR, HFP #### [facility] (DEFAULT) [address] [place] [address] Sodium [Moles/Vol] 133 mmol/L Low 135-145 [facility] Comment on above: Performed By: #### L ABHSTI1, C7ED, LIPDR, HFP #### [facility] (DEFAULT) [address] [place] [address] Urea nitrogen [Mass/Vol] 23 mg/dL Normal 7-25 [facility] Comment on above: Performed By: #### L ABHSTI1, C7ED, LIPDR, HFP #### [facility] (DEFAULT) [address] [place] [address]10 Urea nitrogen/Creatinine [Mass ratio] 22 mg/mg Normal [facility] Comment on above: Performed By: #### L ABHSTI1, C7ED, LIPDR, HFP #### [facility] (DEFAULT) [address] [place], [place] [address] CT ANGIO BRAIN/NECKon 2024 CT ANGIO BRAIN/NECK EXAM: CT ANGIO BRAIN/NECK, 02/16/2025 23:58 PM COMPARISON: CT STROKE HEAD-STROKE ALERT ONLY February 16, 2025, CT ANGIO BRAIN (OUTSIDE IMAGE) February 16, 2025 CLINICAL INDICATIONS: 89 years Female Participating in RIASE trial. Needs repeat CTA within 2hrs of getting drug RELEVANT CLINICAL HISTORY: TECHNIQUE: A series of transaxial multislice computerized tomographic images are obtained with helical technique from top of aortic arch to vertex following bolus intravenous administration of nonionic contrast. Axial thin section source images, as well as sagittal and coronal thin section reformats, were provided at the scanner. Additional multiplanar and 3D reconstructions were provided. CONTRAST: iohexol (OMNIPAQUE) 350 MG/ML injection 1-171 mL; Route of Administration: Intravenous; Dose: 100 mL. FINDINGS: There is artifact related to dense venous contrast in the neck. There is also motion artifact. CT ANGIOGRAM NECK: AORTIC ARCH: Conventional anatomic origin of the great vessels. Atherosclerosis involving the great vessel origins is noted, without significant stenosis. RIGHT CAROTID ARTERY: Common carotid artery is patent and normal in caliber. Internal carotid artery origin at the bifurcation demonstrates atherosclerotic plaque, without significant stenosis. More distal cervical segments of the internal carotid artery are patent and normal in caliber. LEFT CAROTID ARTERY: Common carotid artery is patent and normal in caliber. Internal carotid artery origin at the bifurcation demonstrates atherosclerotic plaque, without significant stenosis. More distal cervical segments of the internal carotid artery are patent and normal in caliber. RIGHT VERTEBRAL ARTERY: Origin is patent. More distal cervical segments are patent and normal in caliber. LEFT VERTEBRAL ARTERY: Origin is patent. Portions of the proximal left vertebral artery selectively evaluated due to artifact from adjacent dense venous contrast in the left aspect of the cervical spine. More distal cervical segments are patent and normal in caliber. OTHER: No dissection or pseudoaneurysm. CT ANGIOGRAM HEAD: INTERNAL CAROTID ARTERIES: Atherosclerotic calcifications, without significant stenosis. ANTERIOR CEREBRAL ARTERIES: Patent and normal in caliber. 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 Again seen are reconstitution of the proximal other M2 branches. Right MCA is patent without occlusion or significant stenosis. POSTERIOR CEREBRAL ARTERIES: Patent and normal in caliber. VERTEBRAL ARTERIES: Patent and normal in caliber. BASILAR ARTERY: Patent. No significant stenosis. OTHER: No aneurysm or AVM. ADDITIONAL FINDINGS: Degenerative changes are noted in the spine. Heterogeneous osseous structures with numerous tiny lucencies and a lytic lesion in the left parietal bone. IMPRESSION: 1. Again seen in the distal left MCA occlusion extending into the proximal post bifurcation branches now with a thin column of contrast which could relate to minimal recanalization. 2. No proximal intracranial artery occlusion or severe stenosis. 3. Heterogeneous marrow with nonspecific lucencies and lytic left parietal bone lesion. Considerations include osteopenia, multiple myeloma and metastatic disease. Normal [facility] CT HEAD WITHOUT CONTRASTon 0 02-17-2025 CT HEAD WITHOUT CONTRAST EXAM: CT HEAD WITHOUT CONTRAST, 02/17/2025 12:58 PM COMPARISON: CT STROKE HEAD-STROKE ALERT ONLY February 16, 2025 CLINICAL INDICATIONS: 89 years Female L M1 LVO stroke, exam change, new R field cut, more dysarthria, may have received blood thinner trial drug TECHNIQUE: A series of transaxial computerized tomographic images are obtained from base of skull to vertex without intravenous contrast. Axial whole-head and thin section posterior fossa slices are provided. Reformats: Sagittal and coronal. FINDINGS: Huynh-white matter differentiation is preserved. No acute large territory infarction. Extensive patchy and confluent periventricular and in the white matter hypoattenuation which is non-specific, but likely due to chronic small vessel ischemic changes. No acute intracranial hemorrhage is seen. No significant mass effect or midline shift. Ventricles are normal in size and configuration for patient age. Unchanged lytic lesion within the left parietal bone. Additional nonspecific scattered lucencies throughout the calvarium. Evidence of prior bilateral cataract surgery. Visualized paranasal sinuses are clear. Visualized mastoid air cells are clear. IMPRESSION: No significant interval change compared to the previous CT. Normal [facility] MAGNESIUMon 02-17-2025 Magnesium [Mass/Vol] 1.9 mg/dL Normal 1.6-2.6 [facility] Comment on above: Performed By: #### L JESSITI1, VenitaEDMATT HFP #### [facility] (DEFAULT) [address] [address] 12 Lead EKGon 02-16-[address] [facility] [address] [place] [address] 12 Lead EKG 02/16/25 1731 MR#: [id number] Acct: [id number] Name: CHARLETTE FARMER Rep #: [id number] : 1935 89 From: Waqar Orozco MD Attending Dr: Status: DEP ER Ordering Dr: Edward Ribeiro MD Date: 02/16/25 Location: ED Sex: F C Admitted: Test Reason : STROKE ALERT Blood Pressure : */* mmHG Vent. 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 Maik Fay MD; Dr. Edward Ribeiro MD Signed Normal [facility] Absolute lymphocyte countOrd ered By: Edward Ribeiro on 02-16-2025 Lymphocytes Auto (Unsp spec) [#/Vol] 0.71 10*3/uL Low 0.83-4.51 [facility] Absolute neutrophil countOrd ered By: Edward Ribeiro on 02-16-2025 Neutrophils (Bld) [#/Vol] 8.6 10*3/uL High 2.0-7.7 [facility] Activated partial thrombopla stin time (aPTT) in platelet poor plasma by coagulation aOrdered By: Edward Ribeiro on 02-16-2025 aPTT Coag (PPP) [Time] 24.3 s 24.1-36.2 [facility] Anion gap in Serum or Plasma Ordered By: Edward Ribeiro on 02-16-2025 Anion gap [Moles/Vol] 14 mmol/L 5-15 [facility] Automated lymphocyte count a s percentage of total leukocytesOrdered By: Edward Ribeiro on 02-16-2025 Lymphocytes/100 WBC Auto (Unsp spec) 7.1 % Low 19-41 [facility] BUN/creatinine ratioOrdered By: Edwardventura Ribeiro on 02-16-2025 Urea nitrogen/Creatinine [Mass ratio] 23.3 mg/mg High 10-20 [facility] Basic Metabolic Profile (BMP )on 02-16-2025 BUN/CRE 23.3 RATIO High 10-20 [facility] Comment on above: Performed By: #### L 100.0100, L501.4021, L300.3900, L300.4310, L500.2500 #### [facility] [address] [place], [address] Calcium [Mass/Vol] 10.0 mg/dL Normal 7.6-11.0 [facility] Comment on above: Performed By: #### L 100.0100, L501.4021, L300.3900, L300.4310, L500.2500 #### [facility] [address] [place], [address] Chloride [Moles/Vol] 100 mmol/L Normal 98-108 [facility] Comment on above: Performed By: #### L 100.0100, L501.4021, L300.3900, L300.4310, L500.2500 #### [facility] [address] [place], [address] CO2 [Moles/Vol] 22.3 mmol/L Normal 21.0-32.0 [facility] Comment on above: Performed By: #### L 100.0100, L501.4021, L300.3900, L300.4310, L500.2500 #### [facility] [address] [place], [address] Creatinine [Mass/Vol] 1.19 mg/dL Normal 0.70-1.20 [facility] Comment on above: Performed By: #### L 100.0100, L501.4021, L300.3900, L300.4310, L500.2500 #### [facility] [address] [place], [address] ECRCL 28.76 ml/min Low 50-250 [facility] Comment on above: Performed By: #### L 100.0100, L501.4021, L300.3900, L300.4310, L500.2500 #### [facility] [address] [place], [address] GAP 14 Normal 5-15 [facility] Comment on above: Performed By: #### L 100.0100, L501.4021, L300.3900, L300.4310, L500.2500 #### [facility] [address] [place], [address] GFR/1.73 sq M.predicted among non-blacks MDRD (S/P/Bld) [Vol rate/Area] 44 mL/min/{1.73_m2} Low >60 [facility] Comment on above: Result Comment: mL/m in/1.73m2 CKD-EPI Creatinine Equation (2020) Performed By: #### L 100.0100, L501.4021, L300.3900, L300.4310, L500.2500 #### [facility] [address] [place], [address] Glucose [Mass/Vol] 269 mg/dL High 70-99 [facility] Comment on above: Performed By: #### L 100.0100, L501.4021, L300.3900, L300.4310, L500.2500 #### [facility] [address] [place], [address] Potassium [Moles/Vol] 4.1 mmol/L Normal 3.3-5.1 [facility] Comment on above: Performed By: #### L 100.0100, L501.4021, L300.3900, L300.4310, L500.2500 #### [facility] [address] [place], [address] Sodium [Moles/Vol] 136 mmol/L Normal 133-145 [facility] Comment on above: Performed By: #### L 100.0100, L501.4021, L300.3900, L300.4310, L500.2500 #### [facility] [address] [place], [address] Urea nitrogen [Mass/Vol] 28 mg/dL High 4-19 [facility] Comment on above: Performed By: #### L 100.0100, L501.4021, L300.3900, L300.4310, L500.2500 #### [facility] [address] [place], [address] Basophil percentageOrdered B y: Edward Ribeiro on 02-16-2025 Basophils/100 WBC (Bld) 0.1 % 0-1 [facility] CBC AND ELECTRONIC DIFFon Abs Baso Auto < Normal 0.00-0.15 [facility] Comment on above: Performed By: #### Lino 1CB, [id number] #### [facility] (DEFAULT) [address] [address] Abs Eos Auto < Normal 0.00-0.42 [facility] Comment on above: Performed By: #### Lino 1CB, [id number] #### [facility] (DEFAULT) [address] [place] [address] Basophils/100 WBC (Bld) 0.1 % Normal [facility] Comment on above: Performed By: #### Lino HARLEY, [id number] #### [facility] (DEFAULT) [address] [place] [address] DIFF STATUS Electronic Differential Normal [facility] Comment on above: Performed By: #### Lino HARLEY, [id number] #### [facility] (DEFAULT) [address] [place] [address] Eosinophils/100 WBC (Bld) 0.0 % Normal [facility] Comment on above: Performed By: #### Lino HARLEY, [id number] #### [facility] (DEFAULT) [address] [place] [address] Hematocrit (Bld) [Volume fraction] 37.0 % Normal 34.9-44.3 [facility] Comment on above: Performed By: #### Lino HARLEY, [id number] #### [facility] (DEFAULT) [address] [place] [address] Hemoglobin (Bld) [Mass/Vol] 12.3 g/dL Normal 11.4-15.2 [facility] Comment on above: Performed By: #### Lino HARLEY, [id number] #### [facility] (DEFAULT) [address] [place] [address] Immature Grans % 0.6 % Normal [facility] Comment on above: Performed By: #### Lino HARLEY, [id number] #### [facility] (DEFAULT) [address] [place] [address] Immature Grans Absolute 0.10 K/uL High <=0.08 [facility] Comment on above: Performed By: #### Lino HARLEY, [id number] #### [facility] (DEFAULT) [address] [place] [address] Lymphocytes (Bld) [#/Vol] 0.66 10*3/uL Low 1.16-3.51 [facility] Comment on above: Performed By: #### A 1CB, [id number] #### [facility] (DEFAULT) [address] [place] [address] Lymphocytes/100 WBC (Bld) 4.0 % Normal [facility] Comment on above: Performed By: #### A 1CB, [id number] #### [facility] (DEFAULT) [address] [place] [address] MCV (RBC) [Entitic vol] 88.7 fL Normal 79.6-97.7 [facility] Comment on above: Performed By: #### A 1CB, [id number] #### [facility] (DEFAULT) [address] [place] [address] Mean Cell Hgb 29.5 pg Normal 25.9-33.9 [facility] Comment on above: Performed By: #### Lino 1CB, [id number] #### [facility] (DEFAULT) [address] [place] [address] 764[address] Mean Cell Hgb Conc 33.2 g/dL Normal 31.4-35.9 [facility] Comment on above: Performed By: #### Lino 1CAddie, [id number] #### [facility] (DEFAULT) [address] [place] [address] Monocytes (Bld) [#/Vol] 0.88 10*3/uL High 0.22-0.87 [facility] Comment on above: Performed By: #### Lino 1CB, [id number] #### [facility] (DEFAULT) [address] [place] [address] Monocytes/100 WBC (Bld) 5.4 % Normal [facility] Comment on above: Performed By: #### Lino 1CB, [id number] #### [facility] (DEFAULT) [address] [place] [address] 35943 Nucleated RBC 0.0 /100 WBC Normal <=0.2 [facility] Comment on above: Performed By: #### Lino 1CB, [id number] #### [facility] (DEFAULT) [address] [place] [address] 22749 Platelet mean volume (Bld) [Entitic vol] 9.9 fL Normal 8.5-12.2 [facility] Comment on above: Performed By: #### Lino HARLEY, [id number] #### [facility] (DEFAULT) [address] [place] [address] Platelets (Bld) [#/Vol] 333 10*3/uL Normal 150-393 [facility] Comment on above: Performed By: #### Lino HARLEY, [id number] #### [facility] (DEFAULT) [address] [place] [address] 38608 RBC (Bld) [#/Vol] 4.17 10*6/uL Normal 3.91-5.04 [facility] Comment on above: Performed By: #### Lino HARLEY, [id number] #### [facility] (DEFAULT) [address] [place] [address] 72962 RBC Distribution 14.9 % Normal 10.8-14.9 [facility] Comment on above: Performed By: #### Lino HARLEY, [id number] #### [facility] (DEFAULT) [address] [place] [address] Segs + Bands Auto 89.9 % Normal [facility] Comment on above: Performed By: #### Lino HARLEY, [id number] #### [facility] (DEFAULT) [address] [place] [address] Segs + Bands,Absolute Auto 14.67 K/uL High 1.64-7.28 [facility] Comment on above: Performed By: #### Lino HARLEY, [id number] #### [facility] (DEFAULT) [address] [place] [address] 11414 WBC (Bld) [#/Vol] 16.33 10*3/uL High 3.99-11.19 [facility] Comment on above: Performed By: #### Lino HARLEY, [id number] #### [facility] (DEFAULT) [address] [place] [address] CBC W/Diff, Automatedon 05-3 Absolute Lymph 0.71 X10 3/uL Low 0.83-4.51 [facility] Comment on above: Performed By: #### L 100.0100, L501.4021, L300.3900, L300.4310, L500.2500 #### [facility] [address] [place], [address] Absolute Neut 8.6 X10 3/uL High 2.0-7.7 [facility] Comment on above: Performed By: #### L 100.0100, L501.4021, L300.3900, L300.4310, L500.2500 #### [facility] [address] [place], [address] Basophils/100 WBC (Bld) 0.1 % Normal 0-1 [facility] Comment on above: Performed By: #### L 100.0100, L501.4021, L300.3900, L300.4310, L500.2500 #### [facility] [address] [place], [address] Eosinophils/100 WBC (Bld) 0.1 % Normal 0-5 [facility] Comment on above: Performed By: #### L 100.0100, L501.4021, L300.3900, L300.4310, L500.2500 #### [facility] [address] [place], [address] Erythrocyte distribution width (RBC) [Ratio] 15.0 % High 11.6-14.6 [facility] Comment on above: Performed By: #### L 100.0100, L501.4021, L300.3900, L300.4310, L500.2500 #### [facility] [address] [place], [address] Hematocrit (Bld) [Volume fraction] 34.7 % Low 37-47 [facility] Comment on above: Performed By: #### L 100.0100, L501.4021, L300.3900, L300.4310, L500.2500 #### [facility] [address] [place], [address] Hemoglobin (Bld) [Mass/Vol] 11.6 g/dL Low 12.0-15.0 [facility] Comment on above: Performed By: #### L 100.0100, L501.4021, L300.3900, L300.4310, L500.2500 #### [facility] [address] [place], [address] IG% 0.900 Normal 0.0-0.9 [facility] Comment on above: Result Comment: IG% - Immature Granulocytes (promyelocytes, myelocytes and metamyelocytes) > 1% indicates that a LEFT SHIFT is Present. Performed By: #### L 100.0100, L501.4021, L300.3900, L300.4310, L500.2500 #### [facility] [address] [place], [address] Lymphocytes/100 WBC (Bld) 7.1 % Low 19-41 [facility] Comment on above: Performed By: #### L 100.0100, L501.4021, L300.3900, L300.4310, L500.2500 #### [facility] [address] [place], [address] MCH (RBC) [Entitic mass] 30.0 pg Normal 27.0-32.0 [facility] Comment on above: Performed By: #### L 100.0100, L501.4021, L300.3900, L300.4310, L500.2500 #### [facility] [address] [place], [address] MCHC (RBC) [Mass/Vol] 33.4 g/dL Normal 32-36 [facility] Comment on above: Performed By: #### L 100.0100, L501.4021, L300.3900, L300.4310, L500.2500 #### [facility] [address] [place], [address] MCV (RBC) [Entitic vol] 89.7 fL Normal 81-99 [facility] Comment on above: Performed By: #### L 100.0100, L501.4021, L300.3900, L300.4310, L500.2500 #### [facility] [address] [place], [address] Monocytes/100 WBC (Bld) 6.1 % Normal 0-10 [facility] Comment on above: Performed By: #### L 100.0100, L501.4021, L300.3900, L300.4310, L500.2500 #### [facility] [address] [place], [address] Neutrophils/100 WBC (Bld) 85.7 % High 47-70 [facility] Comment on above: Performed By: #### L 100.0100, L501.4021, L300.3900, L300.4310, L500.2500 #### [facility] [address] [place], [address] Nucleated RBC (Bld) [#/Vol] 0 10*3/uL Normal 0-5 [facility] Comment on above: Performed By: #### L 100.0100, L501.4021, L300.3900, L300.4310, L500.2500 #### [facility] [address] [place], [address] Platelet mean volume (Bld) [Entitic vol] 9.9 fL Normal 6.2-12.0 [facility] Comment on above: Performed By: #### L 100.0100, L501.4021, L300.3900, L300.4310, L500.2500 #### [facility] [address] [place], [address] Platelets (Bld) [#/Vol] 298 10*3/uL Normal 150-450 [facility] Comment on above: Performed By: #### L 100.0100, L501.4021, L300.3900, L300.4310, L500.2500 #### [facility] [address] [place], [address] RBC (Bld) [#/Vol] 3.87 10*6/uL Low 4.2-5.4 [facility] Comment on above: Performed By: #### L 100.0100, L501.4021, L300.3900, L300.4310, L500.2500 #### [facility] [address] [place], [address] RDW SD 49.2 fl High 35.1-43.9 [facility] Comment on above: Performed By: #### L 100.0100, L501.4021, L300.3900, L300.4310, L500.2500 #### [facility] [address] [place], [address] WBC (Bld) [#/Vol] 10.1 10*3/uL Normal 4.4-11.0 [facility] Comment on above: Performed By: #### L 100.0100, L501.4021, L300.3900, L300.4310, L500.2500 #### [facility] [address] [place], [address] CHM 7 - EDon 02-16-2025 Anion gap [Moles/Vol] 13 mmol/L Normal 7-17 [facility] Comment on above: Performed By: #### L ABHSTI1, C7ED, LIPDR, HFP #### [facility] (DEFAULT) [address] [place] [address] Chloride [Moles/Vol] 99 mmol/L Normal 98-108 [facility] Comment on above: Performed By: #### L ABHSTI1, C7ED, LIPDR, HFP #### [facility] (DEFAULT) [address] [place] [address] CO2 [Moles/Vol] 25 mmol/L Normal 21-31 [facility] Comment on above: Performed By: #### L ABHSTI1, C7ED, LIPDR, HFP #### [facility] (DEFAULT) [address] [place] [address] Creatinine [Mass/Vol] 1.12 mg/dL Normal 0.50-1.20 [facility] Comment on above: Performed By: #### L ABHSTI1, C7ED, LIPDR, HFP #### [facility] (DEFAULT) [address] [place] [address] GFR/1.73 sq M.predicted among non-blacks MDRD (S/P/Bld) [Vol rate/Area] 47 mL/min/{1.73_m2} Low >=60 [facility] Comment on above: Result Comment: Repo rted eGFR is based on the CKD-EPI 2020 equation using creatinine, age, and sex. Performed By: #### L ABDALJITTI1, C7ED, LIPDR, HFP #### [facility] (DEFAULT) [address] [place] [address] Glucose [Mass/Vol] 297 mg/dL High Nonfastin -179 mg/dL; Fastin-99 [facility] Comment on above: Performed By: #### L ABHSTI1, C7ED, LIPDR, HFP #### [facility] (DEFAULT) [address] [place] [address] Osmolality [Osmolality] 298 mosm/kg Normal 278-305 [facility] Comment on above: Performed By: #### L ABHSTI1, C7ED, LIPDR, HFP #### [facility] (DEFAULT) [address] [place] [address] Potassium [Moles/Vol] 4.3 mmol/L Normal 3.5-5.0 [facility] Comment on above: Performed By: #### L ABHSTI1, C7ED, LIPDR, HFP #### [facility] (DEFAULT) [address] [place] [address]89[address] Sodium [Moles/Vol] 133 mmol/L Low 135-145 [facility] Comment on above: Performed By: #### L ABHSTI1, C7ED, LIPDR, HFP #### [facility] (DEFAULT) [address] [place] [address] 56251 Urea nitrogen [Mass/Vol] 27 mg/dL High 7-25 [facility] Comment on above: Performed By: #### L ABHSTI1, C7ED, LIPDR, HFP #### [facility] (DEFAULT) [address] [place] [address] 17047 Urea nitrogen/Creatinine [Mass ratio] 24 mg/mg Normal [facility] Comment on above: Performed By: #### L ABHSTI1, C7ED, LIPDR, HFP #### [facility] (DEFAULT) [address] [place] [address] STROKE HEAD-STROKE ALERT ONLYon 02-16-2025 CT STROKE HEAD-STROKE ALERT ONLY EXAM: CT STROKE HEAD-STROKE ALERT ONLY, 02/16/2025 8:32 PM COMPARISON: CT HEAD (OUTSIDE IMAGE) February 16, 2025, CT ANGIO BRAIN (OUTSIDE IMAGE) February 16, 2025 CLINICAL INDICATIONS: 89 years Female Suspected Stroke; Suspected Stroke RELEVANT CLINICAL HISTORY: TECHNIQUE: A series of transaxial computerized tomographic images are obtained from base of skull to vertex without intravenous contrast. Axial whole-head and thin section posterior fossa slices are provided. Reformats: Sagittal and coronal. FINDINGS: Huynh-white matter differentiation is preserved. No acute large territory infarction is seen. Patchy periventricular white matter hypoattenuation is noted which is non-specific, but likely due to chronic small vessel ischemic changes. No acute intracranial hemorrhage is seen. No significant mass effect or midline shift. Ventricles are normal in size and configuration for patient age. Scattered lucencies in the skull are nonspecific. There is a lytic lesion in the left parietal bone (series 900 image 11) with apparent loss of the inner cortex. Visualized orbits appear normal. Visualized paranasal sinuses are clear. Visualized mastoid air cells are clear. Atherosclerotic calcifications of the major arteries at the skull base are noted. IMPRESSION: 1. No acute hemorrhage, or CT signs of acute large territory infarction. 2. Indeterminate lytic lesion in the left parietal bone. Osseous metastatic disease or lytic lesion for multiple myeloma would be in the differential. Findings were discussed with Marielos Inman MD at 8:40 PM on 02/16/25. I personally viewed and interpreted these images and I have reviewed and approved this report. Normal [facility] Carbon dioxide, total [Moles /volume] in Central venous bloodOrdered By: Edward Ribeiro on 02-16-2025 CO2 [Moles/Vol] 22.3 mmol/L 21.0-32.0 [facility] Chloride assayOrdered By: Dickson Ribeiro on 02-16-2025 Chloride [Moles/Vol] 100 mmol/L 98-108 [facility] Emergency Department Summary on 02-16-2025 Emergency Department Summary [facility] Medical Records Department [address] [place] [address] Emergency Department Summary 02/16/25 MR#: [id number] Acct: [id number] Name: CHARLETTE FARMER Rep #: [id number] : 1935 89 From: Edward Ribeiro MD PCP: Dr. Maik Fay MD Status:REG ER Location: ED HPI History of Present Illness Chief Complaint: Stroke Alert Detail of Chief Complaint: Last known well 1329. Informant: patient Onset/Context/Timing Onset: Today Context: Sudden Onset Timing: Continuous Quality and Location: Positive for - (Documented HPI narrative) Onset: Last known well 1329 Current Severity: Moderate Maximum Severity: Moderate Worsened by: This may be traumatic Relieved by: Nothing Associated Symptoms Associated Symptoms: Negative for Headache, Nausea, Vomiting or Chest Pain Narrative Narrative: Patient is an 89-year-old woman with history of cervical cancer, hypertension, type 2 diabetes, dyslipidemia who was last known well at 1330. She apparently called her daughter who is the POA after fall. Daughter received a call at 1630. Time the patient fell is unknown. Patient does not know her age or month. Patient is not able to follow since all simple commands. She also has trouble with expressive aphasia. Paramedics stated that she had a drift right upper extremity. When she was met in the ambulance bay by me she had no motor weakness. She is not hypoglycemic since she does have diabetes. Patient denies headache. She denies cardiac or respiratory symptoms. Prior similar symptoms: No Recent Illness/Hospitalizatio n: No PFSH [facility] Medical History Obesity Former tobacco use CKD (chronic kidney disease), stage III Vertigo Dyslipidemia Diverticular hemorrhage Cervical cancer HTN (hypertension) DM II (diabetes mellitus, type II), controlled Home Medications ???Medication ???Instructions ???Recorded ???Last Taken ???Type lisinopril 2.5 mg tablet 2.5 mg PO DAILY hypertension 02/2410/09/20 History pramipexole 0.25 mg tablet 0.25 mg PO QHS restless legs 02/2410/08/20 History acetaminophen 500 mg tablet 500 mg PO BID pain 10/10/20 History allopurinol 100 mg tablet 100 mg PO BIDCM gout 10/10/2009/20 History aspirin 81 mg chewable tablet 81 mg PO QHS heart health 10/10/20 10/08/20 History cyanocobalamin (vitamin B-12) 1,000 mcg PO DAILY supplement 09/2010/09/20 History 1,000 mcg capsule meclizine 25 mg tablet 25 mg PO 4X/DAY PRN PRN Dizziness 09/02/23 Unknown Rx #20 tabs rosuvastatin 20 mg tablet 20 mg PO QHS cholesterol 09/03/23 Unknown History gabapentin 400 mg capsule 400 mg PO BID 02/16/25 Unknown His tory gabapentin 600 mg tablet 600 mg PO Q12H 02/16/25 Unknown Hi story hydrochlorothiazide 12.5 mg capsule 12.5 mg PO DAILY 02/16/25 Unkno wn History insulin lispro 100 unit/mL subcut 02/16/25 Unknown History subcutaneous pen (Humalog KwikPen (U-100) Insulin) melatonin 10 mg capsule 10 mg PO QHS 02/16/25 Unknown Hist ory prednisone 20 mg tablet 20 mg PO DAILY 02/16/25 Unknown Hi story Allergy/AdvReac Type Severity Reaction Status Date / Time No Known Allergies Allergy Verified 09/03/23 01:34 Family History Mother Lung cancer COPD (chronic obstructive pulmonary disease) Father Alcoholism CAD (coronary artery disease) Heart disease Hypertension Myocardial infarction age 43 secondary to [place]. Surgical History History of carpal tunnel surgery of right wrist History of tonsillectomy and adenoidectomy Hx of dilation and curettage Hx of cholecystectomy History of hysterectomy S/P appendectomy Social History household members: none Smoking Status: Former smoker how long ago did patient quit smoking: Smoked 1 pack/day x 20 years, quit 1973. alcohol intake: current alcohol intake frequency: holidays/special occasions only substance use type: does not use ROS ROS ED Review of Systems ROS Unobtainable: due to mental status EXAM Physical Exam Const Vital Signs: 02/16/25 17:17 02/16/25 17:17 02/16/25 17:17 Temperature 98.6 F 98.6 F Temperature Source Oral Oral Pulse Rate 75 Respiratory Rate 18 Blood Pressure 129/71 H Blood Pressure Mean 90 Pulse Ox 97 Oxygen Delivery Method Room Air Room Air 02/16/25 17:47 02/16/25 17:47 02/16/25 18:17 Temperature 98.6 F 98.6 F 98.9 F Temperature Source Oral Oral Oral Pulse Rate 76 76 78 Respiratory Rate 14 19 H 14 Blood Pressure 120/60 120/60 126/78 H Blood Pressure Mean 80 80 94 Pulse Ox 97 98 98 Oxygen Delivery Method Anisa (more content not included)... Normal [facility] Eosinophil percentageOrdered By: Edward Ribeiro on 02-16-2025 Eosinophils/100 WBC (Bld) 0.1 % 0-5 [facility] Erythrocyte distribution wid th ratioOrdered By: Edward Ribeiro on 02-16-2025 Erythrocyte distribution width (RBC) [Ratio] 15.0 % High 11.6-14.6 [facility] Erythrocyte distribution wid th standard deviationOrdered By: Edward Mariao on 02-16-2025 Erythrocyte distribution width (RBC) [Ratio] 49.2 fl High 35.1-43.9 [facility] Glomerular filtration rate ( GFR) estimation/1.73 sq m using serum, plasma, or whole bOrdered By: Edward Ribeiro on 02-16-2025 GFR/1.73 sq M.predicted among non-blacks MDRD (S/P/Bld) [Vol rate/Area] 44 mL/min/{1.73_m2} Low >60 [facility] Comment on above: mL/min/1.73m2 CKD-EP I Creatinine Equation (2020) HEMOGLOBIN A1Con 02-16-2025 Glucose [Mass/Vol] 217 mg/dL Normal [facility] Comment on above: Performed By: #### Lino 1CB, [id number] #### [facility] (DEFAULT) [address] [place] [address] Hemoglobin A1C HPLC 9.2 % High 4.7-5.6 [facility] Comment on above: Performed By: #### Lino 1CB, [id number] #### [facility] (DEFAULT) [address] [place] [address] HEPATIC FUNCTION PANELon Albumin [Mass/Vol] 4.0 g/dL Normal 3.5-5.0 [facility] Comment on above: Performed By: #### L ABHSTI1, C7ED, LIPDR, HFP #### [facility] (DEFAULT) [address] [place] [address] ALP [Catalytic activity/Vol] 81 U/L Normal 32-126 [facility] Comment on above: Performed By: #### L ABHSTI1, C7ED, LIPDR, HFP #### [facility] (DEFAULT) [address] [place] [address]398 ALT [Catalytic activity/Vol] 7 U/L Low 9-48 [facility] Comment on above: Performed By: #### L ABHSTI1, C7ED, LIPDR, HFP #### [facility] (DEFAULT) [address] [place] [address] 86694 AST [Catalytic activity/Vol] 13 U/L Normal 10-39 [facility] Comment on above: Performed By: #### L ABHSTI1, C7ED, LIPDR, HFP #### [facility] (DEFAULT) [address] [place] [address] 80097 Bilirubin [Mass/Vol] 0.4 mg/dL Normal <1.5 [facility] Comment on above: Performed By: #### L ABHSTI1, C7ED, LIPDR, HFP #### [facility] (DEFAULT) [address] [place] [address]4964 Bilirubin.indirect [Mass/Vol] 0.1 mg/dL Normal <0.3 [facility] Comment on above: Result Comment: Spec imen hemolyzed. Direct bilirubin results may be falsely decreased. Interpret within the clinical context. Performed By: #### L ABHSTI1, C7ED, LIPDR, HFP #### [facility] (DEFAULT) [address] [place] [address] 15901 Protein [Mass/Vol] 7.2 g/dL Normal 6.4-8.3 [facility] Comment on above: Performed By: #### L ABHSTI1, C7ED, LIPDR, HFP #### [facility] (DEFAULT) [address] [place] [address]55[address] HIGH SENSITIVITY TROPONIN I - SINGLE ORDERon 02-16-2025 hs-Troponin I 5 ng/L Normal <34 [facility] Comment on above: Order Comment: Acute Coronary Syndrome (ACS): Initial Evaluation and Management: [email or web address] Performed By: #### L ABHSTI1, C7ED, LIPDR, HFP #### [facility] (DEFAULT) [address] [place] [address] 23775 Hematocrit Auto (Bld) [Volum e fraction]Ordered By: Edward Ribeiro on 02-16-2025 Hematocrit (Bld) [Volume fraction] 34.7 % Low 37-47 [facility] Hemoglobin measurementOrdere d By: Edwardventura Ribeiro on 02-16-2025 Hemoglobin (Bld) [Mass/Vol] 11.6 g/dL Low 12.0-15.0 [facility] Immature granulocytes/100 WB C Auto (Bld)Ordered By: [facility] on 02-16-2025 Immature granulocytes/100 WBC (Bld) 0.900 % 0.0-0.9 [facility] Comment on above: IG% - Immature Granu locytes (promyelocytes, myelocytes and metamyelocytes) > 1% indicates that a LEFT SHIFT is Present. International normalized rat io (INR) calculationOrdered By: Edward Ribeiro on 02-16-2025 INR Coag (Bld) [Relative time] 1.0 {INR} [facility] L499.0042on 02-16-2025 Trop T High Sen Normal <=14 [facility] Comment on above: Result Comment: DISC HARGED FROM ED Performed By: #### L 100.0100, L501.4021, L300.3900, L300.4310, L500.2500 #### [facility] [address] [place], [address] L499.0043on 02-16-2025 Trop T High Sen Normal <=14 [facility] Comment on above: Result Comment: Canc elled via OM: Order cancelled - Patient discharged Performed By: #### L 499.0043 #### [facility] [address] [place], [address] L501.4021on 02-16-2025 Trop T High Sen 25 ng/L High <=14 [facility] Comment on above: Performed By: #### L 100.0100, L501.4021, L300.3900, L300.4310, L500.2500 #### [facility] [address] [place], [address] LIPID PANEL WITH REFLEX TO Roya BURTon 02-16-2025 Calculated LDL Cholesterol 137 mg/dL High 0-99 [facility] Comment on above: Result Comment: [<10 0 mg/dL: Optimal] [100-129 mg/dL: Near Optimal] [130-159 mg/dL: Borderline High] [160-189 mg/dL: High] [>189 mg/dL: Very High] Performed By: #### L ABHSTI1, C7ED, LIPDR, HFP #### [facility] (DEFAULT) [address] [address] Cholesterol [Mass/Vol] 237 mg/dL High <200 [facility] Comment on above: Result Comment: [<20 0 mg/dL: Desirable] [200-239 mg/dL: Borderline High] [>239 mg/dL: High] Performed By: #### L ABHSTI1, C7ED, LIPDR, HFP #### [facility] (DEFAULT) [address] [place] [address] 31677 Cholesterol in HDL [Mass/Vol] 53 mg/dL Normal >=40 [facility] Comment on above: Result Comment: [<40 mg/dL: Low (High Risk)] [>59 mg/dL: High (Low Risk)] Performed By: #### L ABHSTI1, C7ED, LIPDR, HFP #### [facility] (DEFAULT) [address] [place] [address]5910 Non HDL Cholesterol 184 mg/dL High <130 [facility] Comment on above: Performed By: #### L ABHSTI1, C7ED, LIPDR, HFP #### [facility] (DEFAULT) [address] [address] Total Cholesterol/HDL Ratio 4.5 High <4.5 [facility] Comment on above: Performed By: #### L ABHSTI1, C7ED, LIPDR, HFP #### [facility] (DEFAULT) [address] [place] [address] Triglyceride [Mass/Vol] 234 mg/dL High <150 [facility] Comment on above: Result Comment: [<15 0 mg/dL: Desirable] [150-199 mg/dL: Borderline] [200-499 mg/dL: High] [>500 mg/dL: Very High] Performed By: #### L ABHSTI1, C7ED, LIPDR, HFP #### [facility] (DEFAULT) [address] [place] [address] MCV (mean corpuscular volume ) determinationOrdered By: [facility] on 02-16-2025 MCV (RBC) [Entitic vol] 89.7 fL 81-99 [facility] Mean corpuscular hemoglobin (MCH) determinationOrdered By: [facility] on 02-16-2025 MCH (RBC) [Entitic mass] 30.0 pg 27.0-32.0 [facility] Mean corpuscular hemoglobin concentration (MCHC) determinationOrdered By: [facility] on 02-16-2025 MCHC (RBC) [Mass/Vol] 33.4 g/dL 32-36 [facility] Mean platelet volume determi nationOrdered By: [facility] on 02-16-2025 Platelet mean volume (Bld) [Entitic vol] 9.9 fL 6.2-12.0 [facility] Monocyte percentageOrdered B y: [facility] on 02-16-2025 Monocytes/100 WBC (Bld) 6.1 % 0-10 [facility] Neutrophil percentageOrdered By: [facility] on 02-16-2025 Neutrophils/100 WBC (Bld) 85.7 % High 47-70 [facility] Nucleated red blood cell per centageOrdered By: [facility] on 02-16-2025 Nucleated RBC/100 WBC (Bld) [Ratio] 0 % 0-5 [facility] PTINR-STROKEon 02-16-2025 INR Coag (PPP) [Relative time] 1.0 {INR} Normal 0.9-1.1 [facility] Comment on above: Performed By: #### L ABHSTI1, C7ED, LIPDR, HFP #### [facility] (DEFAULT) [address] [place] [address] PT Coag (PPP) [Time] 13.2 s Normal 11.9-14.2 [facility] Comment on above: Performed By: #### L ABHSTI1, C7ED, LIPDR, HFP #### [facility] (DEFAULT) [address] [place] [address] PTTon 02-16-2025 aPTT Coag (Bld) [Time] 24.9 s Normal 24.0-34.3 [facility] Comment on above: Performed By: #### L ABHSTI1, C7ED, LIPDR, HFP #### [facility] (DEFAULT) [address] [place] [address] 12247 Partial Thromboplast Timeon 02-16-2025 aPTT Coag (Bld) [Time] 24.3 s Normal 24.1-36.2 [facility] Comment on above: Performed By: #### L 100.0100, L501.4021, L300.3900, L300.4310, L500.2500 #### [facility] [address] [place], [address] Platelet countOrdered By: Dickson Ribeiro on 02-16-2025 Platelets (Bld) [#/Vol] 298 10*3/uL 150-450 [facility] Potassium measurement (mass/ volume)Ordered By: Edward Ribeiro on 02-16-2025 Potassium (Unsp spec) [Mass/Vol] 4.1 mmol/L 3.3-5.1 [facility] Prothrombin Time w/INRon INR Coag (PPP) [Relative time] 1.0 {INR} Normal [facility] Comment on above: Performed By: #### L 100.0100, L501.4021, L300.3900, L300.4310, L500.2500 #### [facility] [address] [place], [address] PT Coag (PPP) [Time] 13.1 s Normal 11.7-14.9 [facility] Comment on above: Performed By: #### L 100.0100, L501.4021, L300.3900, L300.4310, L500.2500 #### [facility] [address] [place], [address] Prothrombin timeOrdered By: Edward Ribeiro on 02-16-2025 PT Coag (PPP) [Time] 13.1 s 11.7-14.9 [facility] RBC Auto (Bld) [#/Vol]Ordere d By: Edward Ribeiro on 02-16-2025 RBC (Bld) [#/Vol] 3.87 10*6/uL Low 4.2-5.4 [facility] STROKE Brain/Head without Co nton 02-16-2025 STROKE Brain/Head without Cont [facility] Imaging Services [address] [place], [place] [address] STROKE Brain/Head without Cont MR#: [id number] Acct: [id number] Name: CHARLETTE FARMER Rep #: [id number] : 1935 F 89 From: Karel Collins MD PCP: Dr. Maik Fay MD Status: [facility] ER Study: STROKE Brain/Head without Cont Date of Exam: 0 02/16/25 Exam# [id number] Ordering Dr: Edward Ribeiro MD PROCEDURE: STROKE BRAIN/HEAD WITHOUT CONT 02/16/2025 REASON FOR EXAM: NEURO DEFICIT, ACUTE, STROKE SUSPECTED TECHNIQUE: Head CT without intravenous contrast. Coronal and Sagittal reconstruction series were provided. One or more dose reduction techniques were used (e.g., Automated exposure control, adjustment of the mA and/or kV according to patient size, use of iterative reconstruction technique. RADIATION DOSE SUMMARY: CTDlvol: 44.99 mGy DLP: 796.11 mGycm COMPARISON: None. FINDINGS: Mild global parenchymal atrophy. Periventricular white matter hypodensity likely representing moderate chronic microvascular ischemia. No evidence of acute hemorrhage or infarction. No extra-axial blood or fluid collections. The paranasal sinuses are clear. The mastoid air cells are well aerated. The calvarial vault and skull base are intact. CT/STROKE Brain/Head without Cont IMPRESSION: No acute intracranial abnormalities. Reading Location: [id number] CC: Dr. Maik Fay MD; Dr. Edward Ribeiro MD Jet Inspector: Signed Normal [facility] STROKE CTA Head AND Neck W/C onon 02-16-2025 STROKE CTA Head AND Neck W/Con [facility] Imaging Services [address] [place], [place] [address] STROKE CTA Head AND Neck W/Con MR#: [id number] Acct: [id number] Name: CHARLETTE FARMER Rep #: [id number] : 1935 F 89 From: Karel Collins MD PCP: Dr. Maik Fay MD Status: REG ER Study: STROKE CTA Head AND Neck W/Con Date of Exam: 0 02/16/25 Exam# [id number] Ordering Dr: Edward Ribeiro MD PROCEDURE: STROKE CTA HEAD AND NECK W/CON 02/16/2025 REASON FOR EXAM: NEURO DEFICIT, ACUTE, STROKE SUSPECTED TECHNIQUE: CTA imaging of the head and neck from the aortic arch to the skull vertex with out contrast and with intravenous contrast. Multiplanar and multisequence images were obtained. CONTRAST: Isovue 370 VOLUME: 100 mL Gauge IV One or more dose reduction techniques were used (e.g., Automated exposure control, adjustment of the mA and/or kV according to patient size, use of iterative reconstruction technique). RADIATION DOSE SUMMARY: CTDlvol: 29.06+ 18.21 mGy DLP: 673.92 mGycm COMPARISON: None. FINDINGS: The common carotid arteries are patent. The aortic arch is patent. Atherosclerosis of the bilateral proximal internal carotid arteries without hemodynamically significant stenosis. Atherosclerosis of the carotid siphons without significant stenosis. The cervical vertebral arteries are patent. 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 The anterior cerebral, anterior communicating, right middle cerebral, posterior cerebral, [id number], and vertebrobasilar system is patent. Biapical centrilobular and paraseptal emphysema. CT/STROKE CTA Head AND Neck W/Con IMPRESSION: Occluded M1 segment of left MCA. Critical results were communicated to Critical results were communicated to Dr. Ribeiro at 6:15 p.m.. Reading Location: [place] [address] CC: Dr. Maik Fay MD; Dr. Edward Ribeiro MD Jet Inspector: Signed Normal [facility] Serum creatinine measurement (mass/volume)Ordered By: Edward Ribeiro on 02-16-2025 Creatinine [Mass/Vol] 1.19 mg/dL 0.70-1.20 [facility] Serum glucose measurement (m ass/volume)Ordered By: Edward Ribeiro on 02-16-2025 Glucose [Mass/Vol] 269 mg/dL High 70-99 [facility] Serum or plasma calcium luna urement (mass/volume)Ordered By: Edward Ribeiro on 02-16-2025 Calcium [Mass/Vol] 10.0 mg/dL 7.6-11.0 [facility] Serum or plasma urea nitroge n measurement (mass/volume)Ordered By: Edward Ribeiro on 02-16-2025 Urea nitrogen [Mass/Vol] 28 mg/dL High 4-19 [facility] Sodium levelOrdered By: Edward Ribeiro on 02-16-2025 Sodium [Moles/Vol] 136 mmol/L 133-145 [facility] Troponin T.cardiac [Mass/vol ume] in Serum or Plasma by High sensitivity methodOrdered By: Edward Ribeiro on 02-16-2025 Troponin T.cardiac High sensitivity method [Mass/Vol] 25 ng/L High <14 [facility] URINE DRUG SCREEN 10on 02-16 Amphetamine/Methampheta mine Not detected Normal Cutoff: 500 ng/mL [facility] Comment on above: Order Comment: For m edical purposes only. Positive results are unconfirmed unless otherwise noted. Performed By: #### L ABHSTI1, C7ED, LIPDR, HFP #### [facility] (DEFAULT) [address] [place] [address] Barbiturates Not detected Normal Cutoff: 200 ng/mL [facility] Comment on above: Order Comment: For m edical purposes only. Positive results are unconfirmed unless otherwise noted. Performed By: #### L ABHSTI1, C7ED, LIPDR, HFP #### [facility] (DEFAULT) [address] [address] Benzodiazepines Not detected Normal Cutoff: 200 ng/mL [facility] Comment on above: Order Comment: For m edical purposes only. Positive results are unconfirmed unless otherwise noted. Performed By: #### L ABHSTI1, C7ED, LIPDR, HFP #### [facility] (DEFAULT) [address] [address] Buprenorphine Not detected Normal Cutoff: 5 ng/mL [facility] Comment on above: Order Comment: For edical purposes only. Positive results are unconfirmed unless otherwise noted. Performed By: #### L ABHSTI1, C7ED, LIPDR, HFP #### [facility] (DEFAULT) [address] [address] Cannabinoids Screen Ql (U) Not detected Normal Cutoff: 50 ng/mL [facility] Comment on above: Order Comment: For edical purposes only. Positive results are unconfirmed unless otherwise noted. Performed By: #### L ABHSTI1, C7ED, LIPDR, HFP #### [facility] (DEFAULT) [address] [address] Cocaine Not detected Normal Cutoff: 150 ng/mL [facility] Comment on above: Order Comment: For m edical purposes only. Positive results are unconfirmed unless otherwise noted. Performed By: #### L ABHSTI1, C7ED, LIPDR, HFP #### [facility] (DEFAULT) [address] [address] Fentanyl Not detected Normal Cutoff: 1 ng/mL [facility] Comment on above: Order Comment: For m edical purposes only. Positive results are unconfirmed unless otherwise noted. Performed By: #### L ABHSTI1, C7ED, LIPDR, HFP #### [facility] (DEFAULT) [address] [place] [address] Methadone Not detected Normal Cutoff: 300 ng/mL [facility] Comment on above: Order Comment: For m edical purposes only. Positive results are unconfirmed unless otherwise noted. Performed By: #### L ABHSTI1, C7ED, LIPDR, HFP #### [facility] (DEFAULT) [address] [place] [address] Opiates Not detected Normal Cutoff: 300 ng/mL [facility] Comment on above: Order Comment: For m edical purposes only. Positive results are unconfirmed unless otherwise noted. Performed By: #### L ABHSTI1, C7ED, LIPDR, HFP #### [facility] (DEFAULT) [address] [place] [address] Oxycodone Not detected Normal Cutoff: 100 ng/mL [facility] Comment on above: Order Comment: For m edical purposes only. Positive results are unconfirmed unless otherwise noted. Performed By: #### L ABHSTI1, C7ED, LIPDR, HFP #### [facility] (DEFAULT) [address] [address] White blood cell (WBC) count Ordered By: Edward Ribeiro on 02-16-2025 WBC (Bld) [#/Vol] 10.1 10*3/uL 4.4-11.0 [facility] 02-12-2025 [facility] Telephone (FAMWS) CHARLETTE FARMER ([id number]) 1935 F Date Time Provider Department 02/12/25 MARIBEL FAY [facility] During your visit today, we recorded the following information about you: Nataliia Burnham RN 02/12/2025 9:04 AM Signed Patient was prescribed flexeril on 02/08/25, up to 2 times daily for complaints of increased hip and joint pain and difficulty getting around. Unable to see Ortho until 03/04. Pt states she tried taking the flexeril as advised, and the medication made her confused a lot, made her felt goofy and she had trouble staying awake. Reports last dose taken was this past Tuesday night. Feels her mind has improved since stopping the medication but still feels tired and is in a lot of pain, mostly left hip area and also her wrists and legs. Pt states she lives alone. Has neighbors that check on her frequently throughout the day and can assist her at times. Also has a daughter to assist at times. States she has transportation available by someone today. Appt made for pt today with Dr. Fay, for further evaluation and discussion. Please call patient if appt not needed, and with any advise, if appropriate to offer by phone. 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 Any appointments available before 03/04? Without a new fall or injury, I do not think she needs to come in here today. I could give her a course of prednisone to help with pain, though it will increase her sugar levels and possibly her BP. Would she like to try this? Cheryl Billy RN 02/12/2025 10:04 AM Signed Patient calls and notified of below. Patient voices understanding. 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 Appointment with PCP cancelled for today. Patient would like to try the prednisone if it helps with her pain. Patient aware that medication can cause cause elevated blood sugars and blood pressure. Please send prescription to [facility]. Please review and advise, BERNADETTE Chahal Ashley 02/12/2025 10:11 AM Signed PSS unable to find sooner appointment with Dr. Burns. Patient declined to schedule at other sites with sooner availability. Patient requested to remain on the wait list for Dr. Burns. Maribel Fay MD 02/12/2025 10:29 AM Signed Rx sent for 20 mg prednisone daily x 7 days. Let me know in 1-2 days if pain not improving with this. Duyen Bey LPN 02/12/2025 10:42 AM Signed Reviewed provider's message with patient and she voiced understanding. Duyen Bey LPN Allergies As of Date: 02/12/2025 Noted Allergy Reaction FLEXERIL (CYCLOBENZAPRINE) 02/12/2025 1 - Mental Status Change LIPITOR (ATORVASTATIN) 07/19/2007 5 - Intolerance Comments: myalgia SIMVASTATIN 07/19/2007 5 - Intolerance Comments: myalgia Date Reviewed: 02/12/2025 Reviewed by: Maribel Fay MD - Fully Assessed Reason for Visit: Patient Update [1234] Order(s):predniSONE (DELTASONE) 20 mg tabletTake 1 tablet by mouth once daily for 7 days.Disp: 7 tabletRfl: 0 Prescriptions as of 02/12/2025 - predniSONE (DELTASONE) 20 mg tablet Take 1 tablet by mouth once daily for 7 days. - insulin lispro (HUMALOG U-100 INSULIN) 100 unit/mL injection Inject 8 Units subcutaneously three times a day before meals. - aspirin 81 mg chewable tablet Take 81 mg by mouth once daily. - lancets (TRUEPLUS LANCETS) 33 gauge Use with blood glucose test two times a day. Insulin Dep? Yes - pramipexole (MIRAPEX) 0.25 mg tablet Take 1 tablet by mouth daily at bedtime. - lisinopril 2.5 mg tablet Take 1 tablet by mouth once daily. - Insulin Volborg, Disposable, (PEN NEEDLE) 29 gauge x 1/2 One needle three times daily. Dx: 250.02 Insulin: yes - blood sugar diagnostic (TRUE METRIX GLUCOSE TEST STRIP) test strip Test 3 times daily DX:250.02 Insulin: Yes - gabapentin (NEURONTIN) 600 mg tablet Take 1 tablet by mouth two times a day for 90 days. - insulin glargine (LANTUS SOLOSTAR U-100 INSULIN) 100 unit/mL (3 mL) Inject 18 units subcutaneously at bedtime - cyanocobalamin (VITAMIN B-12) 1,000 mcg tab Take one tablet every other day Dx: pernicious anemia - allopurinol (ZYLOPRIM) 100 mg tablet Take 1 tablet by mouth two times a day. - Acetaminophen 500 mg cap Take 2 capsules by mouth two times a day as needed for pain. Reports will utilize 1 500mg tab 1-2 times in between the 1000 mg doses - meclizine (ANTIVERT) 25 mg tab Take 25 mg by mouth as needed. - melatonin 3 mg Take by mouth daily at bedtime. - COMPOUNDED PRESCRIPTION Cock up wrist splint, right Medium. To be worn nightly to prevent carpal tunnel symptoms. Dx: carpal tunnel right - Blood-Glucose Meter, Drum-type (ACCU-CHEK COMPACT PLUS CARE) Misc Kit 1 Each. Accu-Check Compact Plu (more content not included)... Normal [facility] 02-08-2025 CNP[facility] Telephone (FAMPWS) CHARLETTE FARMER ([id number]) 1935 F Date Time Provider Department 02/08/25 MARIBEL FAY During your visit today, we recorded the following information about you: Marylou Sutherland RN 02/08/2025 8:16 AM Signed Patient calls to report that she is not able to get into orthopaedics for her hip until 03/04/2025 and she is having more difficulty getting around. She said it is taking her a half hour to go 10 steps to the bathroom. She takes the gabapentin 600 mg twice daily and tylenol arthritis as needed but doesn't feel that helps. She reports that the prednisone did help some and is asking provider if he would prescribe something else until she can get into ortho. Patient not wanting to come in for an appt d/t pain and difficulty getting around. Last seen 01/22/2025 for these symptoms. Please review and advise, BERNADETTE Wong Christopher B, MD 02/08/2025 8:26 AM Signed With her history of CKD, she cannot take NSAIDs and I would like to avoid steroids due to her diabetes. Will try muscle relaxer flexeril which she can take up to 2 times daily for pain. Should not take this at the same time as her gabapentin since it can cause drowsiness and increase her risk for falls. Would have her try it at night before bed tonight and use walker with ambulation to prevent falls. Should not drive with use of flexeril either. Marylou Sutherland RN 02/08/2025 8:39 AM Signed Call placed to patient and notified of below message with verbalized understanding. Patient reports that she hasn't been taking her blood sugars as often as she should as she can't make it to the dining room where her testing supplies are. Recommended she have her daughter move them to the room she is in when she brings patient her medicine later today. Patient verbalizes understanding and will have daughter do that. Marylou Sutherland RN Allergies As of Date: 02/08/2025 Noted Allergy Reaction LIPITOR (ATORVASTATIN) 07/19/2007 5 - Intolerance Comments: myalgia SIMVASTATIN 07/19/2007 5 - Intolerance Comments: myalgia Date Reviewed: 01/22/2025 Reviewed by: Duyen Bey LPN - Fully Assessed Reason for Visit: Patient Question [8416] Order(s):cyclobenzapri ne (FLEXERIL) 10 mg tabletTake 1 tablet by mouth two times a day as needed for pain.Disp: 60 tabletRfl: 0 Prescriptions as of 02/08/2025 - cyclobenzaprine (FLEXERIL) 10 mg tablet Take 1 tablet by mouth two times a day as needed for pain. - insulin lispro (HUMALOG U-100 INSULIN) 100 unit/mL injection Inject 8 Units subcutaneously three times a day before meals. - aspirin 81 mg chewable tablet Take 81 mg by mouth once daily. - lancets (TRUEPLUS LANCETS) 33 gauge Use with blood glucose test two times a day. Insulin Dep? Yes - pramipexole (MIRAPEX) 0.25 mg tablet Take 1 tablet by mouth daily at bedtime. - lisinopril 2.5 mg tablet Take 1 tablet by mouth once daily. - Insulin Volborg, Disposable, (PEN NEEDLE) 29 gauge x 1/2 One needle three times daily. Dx: 250.02 Insulin: yes - blood sugar diagnostic (TRUE METRIX GLUCOSE TEST STRIP) test strip Test 3 times daily DX:250.02 Insulin: Yes - gabapentin (NEURONTIN) 600 mg tablet Take 1 tablet by mouth two times a day for 90 days. - insulin glargine (LANTUS SOLOSTAR U-100 INSULIN) 100 unit/mL (3 mL) Inject 18 units subcutaneously at bedtime - cyanocobalamin (VITAMIN B-12) 1,000 mcg tab Take one tablet every other day Dx: pernicious anemia - allopurinol (ZYLOPRIM) 100 mg tablet Take 1 tablet by mouth two times a day. - Acetaminophen 500 mg cap Take 2 capsules by mouth two times a day as needed for pain. Reports will utilize 1 500mg tab 1-2 times in between the 1000 mg doses - meclizine (ANTIVERT) 25 mg tab Take 25 mg by mouth as needed. - melatonin 3 mg Take by mouth daily at bedtime. - COMPOUNDED PRESCRIPTION Cock up wrist splint, right Medium. To be worn nightly to prevent carpal tunnel symptoms. Dx: carpal tunnel right - Blood-Glucose Meter, Drum-type (ACCU-CHEK COMPACT PLUS CARE) Misc Kit 1 Each. Accu-Check Compact Plus Meter Diagnosis: Diabetes Mellitus Problem List As Of Date 02/08/2025 Noted Resolved Other specified disorders of rotator cuff syndr*02/16/2006 10/18/2016 Malignant neoplasm of corpus uteri, except isth* 11/24/2015 HYPERLIPIDEMIA NEC/NOS [E78.5] 10/14/2015 Lumbago [M54.50] 06/15/2016 DIABETES MELLITUS TYPE II UNCONTR UNCOMPL [IMO0* 07/18/2014 HYPERTENSION NOS [I10] 10/14/2015 Special screening for malignant neoplasms, colo*11/12/2008 11/24/2015 Benign neoplasm of colon [D12.6] 11/12/2008 11/24/2015 Diverticulosis of colon [K57.30] 11/12/2008 Internal hemorrhoids without mention of complic*11/12/2008 10/14/2015 Tubular adenoma of rectum [D12.8] 02/25/2011 11/24/2015 Pernicious anemia [D51.0] 08/25/2012 Medicare annual wellness (more content not included)... Normal [facility] [place] 02-05-2025 [facility] Telephone (PTWS) MARLENYCHARLETTE ([id number]) 1935 F Date Time Provider Department 02/05/25 JHOAN PROCTOR PTAFUA During your visit today, we recorded the following information about you: Cristopher Corado 02/05/2025 2:20 PM Signed Patient calling in to get in touch with Jhoan Hitesh. She states she has had a lot of trouble walking since her last therapy appt on Tuesday, she would like some guidance on what to do. Please review and advise. Cristopher Corado February 05, 2025 2:20 PM Allergies As of Date: 02/05/2025 Noted Allergy Reaction LIPITOR (ATORVASTATIN) 07/19/2007 5 - Intolerance Comments: myalgia SIMVASTATIN 07/19/2007 5 - Intolerance Comments: myalgia Date Reviewed: 01/22/2025 Reviewed by: Duyen Bey LPN - Fully Assessed Reason for Visit: Patient Question [7917] Prescriptions as of 02/15/2025 - predniSONE (DELTASONE) 20 mg tablet Take 1 tablet by mouth once daily for 7 days. - insulin lispro (HUMALOG U-100 INSULIN) 100 unit/mL injection Inject 8 Units subcutaneously three times a day before meals. - aspirin 81 mg chewable tablet Take 81 mg by mouth once daily. - lancets (TRUEPLUS LANCETS) 33 gauge Use with blood glucose test two times a day. Insulin Dep? Yes - pramipexole (MIRAPEX) 0.25 mg tablet Take 1 tablet by mouth daily at bedtime. - lisinopril 2.5 mg tablet Take 1 tablet by mouth once daily. - Insulin Volborg, Disposable, (PEN NEEDLE) 29 gauge x 1/2 One needle three times daily. Dx: 250.02 Insulin: yes - blood sugar diagnostic (TRUE METRIX GLUCOSE TEST STRIP) test strip Test 3 times daily DX:250.02 Insulin: Yes - gabapentin (NEURONTIN) 600 mg tablet Take 1 tablet by mouth two times a day for 90 days. - insulin glargine (LANTUS SOLOSTAR U-100 INSULIN) 100 unit/mL (3 mL) Inject 18 units subcutaneously at bedtime - cyanocobalamin (VITAMIN B-12) 1,000 mcg tab Take one tablet every other day Dx: pernicious anemia - allopurinol (ZYLOPRIM) 100 mg tablet Take 1 tablet by mouth two times a day. - Acetaminophen 500 mg cap Take 2 capsules by mouth two times a day as needed for pain. Reports will utilize 1 500mg tab 1-2 times in between the 1000 mg doses - meclizine (ANTIVERT) 25 mg tab Take 25 mg by mouth as needed. - melatonin 3 mg Take by mouth daily at bedtime. - COMPOUNDED PRESCRIPTION Cock up wrist splint, right Medium. To be worn nightly to prevent carpal tunnel symptoms. Dx: carpal tunnel right - Blood-Glucose Meter, Drum-type (ACCU-CHEK COMPACT PLUS CARE) Misc Kit 1 Each. Accu-Check Compact Plus Meter Diagnosis: Diabetes Mellitus Problem List As Of Date 02/05/2025 Noted Resolved Other specified disorders of rotator cuff syndr*02/16/2006 10/18/2016 Malignant neoplasm of corpus uteri, except isth* 11/24/2015 HYPERLIPIDEMIA NEC/NOS [E78.5] 10/14/2015 Lumbago [M54.50] 06/15/2016 DIABETES MELLITUS TYPE II UNCONTR UNCOMPL [IMO0* 07/18/2014 HYPERTENSION NOS [I10] 10/14/2015 Special screening for malignant neoplasms, colo*11/12/2008 11/24/2015 Benign neoplasm of colon [D12.6] 11/12/2008 11/24/2015 Diverticulosis of colon [K57.30] 11/12/2008 Internal hemorrhoids without mention of complic*11/12/2008 10/14/2015 Tubular adenoma of rectum [D12.8] 02/25/2011 11/24/2015 Pernicious anemia [D51.0] 08/25/2012 Medicare annual wellness visit, initial [Z00.00]09/28/2013 11/24/2015 Stage 3b chronic kidney disease (HCC) [N18.32] 04/12/2014 PAD (peripheral artery disease) (HCC) [I73.9] 05/02/2014 Medicare annual wellness visit, subsequent [Z00*10/11/2014 11/24/2015 Diabetes mellitus with neuropathy (HCC) [E11.40]10/11/2014 11/24/2015 Essential hypertension [I10] 10/14/2015 Mixed hyperlipidemia [E78.2] 10/14/2015 DM type 2 with diabetic peripheral neuropathy (*11/12/2015 Trigger middle finger of right hand [M65.331] 11/20/2015 Trigger finger, left ring finger [M65.342] 08/25/2017 Restless leg syndrome [G25.81] Type 2 diabetes mellitus with diabetic chronic *08/15/2023 Type 2 diabetes mellitus with diabetic peripher*11/05/2022 Carpal tunnel syndrome, right [G56.01] 11/09/2022 Stage 4 chronic kidney disease (HCC) [N18.4] 09/08/2023 Personal history of malignant neoplasm of cervi*09/08/2023 Diagnosed: 1996 Arthritis of left hip [M16.12] 11/08/2023 History of colonic polyps [Z86.0100] 07/12/2024 Positive fecal occult blood test [R19.5] 07/12/2024 History of lumbar fusion [Z98.1] 12/11/2024 Gout [M10.9] 12/11/2024 Former smoker [Z87.891] 12/11/2024 BMI 30.0-30.9,adult [Z68.30] 12/11/2024 Neck pain [M54.2] 01/24/2025 Acute hip pain, left [M25.552] 01/24/2025 Encounter Status:Closed by CRISTOPHER CORADO on 02/15/25 [facility] CNTHERAPYon 02-01-2025 CNTHERAPY OT/PT/Speech Visit (PTWS) CHARLETTE FARMER ([id number]) 1935 F Date Time Provider Department 02/01/25 1:00 PM JHOAN PROCTOR PTWS Date Time Provider Department [place] 02/01/2025 1:00 PM [id number], SEAN PTWS Julia Simpson Reason for Visit: Physical Therapy [503] Primary Visit Diagnosis:Acute hip pain, left [M25.552] Other Visit Diagnosis:Neck pain [M54.2] Allergies As of Date: 02/01/2025 Noted Allergy Reaction LIPITOR (ATORVASTATIN) 07/19/2007 5 - Intolerance Comments: myalgia SIMVASTATIN 07/19/2007 5 - Intolerance Comments: myalgia Date Reviewed: 01/22/2025 Reviewed by: Duyen Bey LPN - Fully Assessed Prescriptions as of 02/01/2025 - insulin lispro (HUMALOG U-100 INSULIN) 100 unit/mL injection Inject 8 Units subcutaneously three times a day before meals. - aspirin 81 mg chewable tablet Take 81 mg by mouth once daily. - lancets (TRUEPLUS LANCETS) 33 gauge Use with blood glucose test two times a day. Insulin Dep? Yes - pramipexole (MIRAPEX) 0.25 mg tablet Take 1 tablet by mouth daily at bedtime. - lisinopril 2.5 mg tablet Take 1 tablet by mouth once daily. - Insulin Volborg, Disposable, (PEN NEEDLE) 29 gauge x 1/2 One needle three times daily. Dx: 250.02 Insulin: yes - blood sugar diagnostic (TRUE METRIX GLUCOSE TEST STRIP) test strip Test 3 times daily DX:250.02 Insulin: Yes - gabapentin (NEURONTIN) 600 mg tablet Take 1 tablet by mouth two times a day for 90 days. - insulin glargine (LANTUS SOLOSTAR U-100 INSULIN) 100 unit/mL (3 mL) Inject 18 units subcutaneously at bedtime - cyanocobalamin (VITAMIN B-12) 1,000 mcg tab Take one tablet every other day Dx: pernicious anemia - allopurinol (ZYLOPRIM) 100 mg tablet Take 1 tablet by mouth two times a day. - Acetaminophen 500 mg cap Take 2 capsules by mouth two times a day as needed for pain. Reports will utilize 1 500mg tab 1-2 times in between the 1000 mg doses - meclizine (ANTIVERT) 25 mg tab Take 25 mg by mouth as needed. - melatonin 3 mg Take by mouth daily at bedtime. - COMPOUNDED PRESCRIPTION Cock up wrist splint, right Medium. To be worn nightly to prevent carpal tunnel symptoms. Dx: carpal tunnel right - Blood-Glucose Meter, Drum-type (ACCU-CHEK COMPACT PLUS CARE) Misc Kit 1 Each. Accu-Check Compact Plus Meter Diagnosis: Diabetes Mellitus Normal [facility] [id number] 01-24-2025 [id number] HNO ID: [id number] Author: JHOAN PROCTOR PT Service: ? Author Type: Physical Therapist Type: [id number] Filed: 01/24/2025 16:50 Note Text: [facility] Physical Therapy Plan of Care Certification Patient Name: Charlette Farmer : 1935 CC #: [id number] Date: 01/24/2025 To: Maribel Fay,* From Therapist: Jhoan Proctor PT RE: Patient Certification/ Recertification Your review, approval and electronic signature are required in order to comply with Payor: [employer] MEDICARE / Plan: [employer] MEDICARE PPO / Product Type: PPO / regulations. The identified Physical Therapy PLAN OF CARE for the patient is as follows: M25.552 Acute hip pain, left (primary encounter diagnosis) M54.2 Neck pain PLAN OF CARE: Assessment: Charlette Farmer presents with chief complaint of L hip and neck pain that interferes with walking, standing, bending, sitting . The patient presents with impairments in ADL's, joint mobility, overall function, range of motion, strength, and symptom management. PROMIS? (Patient-Reported Outcomes Measurement Information System) scores were reviewed and identified as a rehabilitation concern. Prognosis for therapy is Fair due to: clinical presentation, multiple co- morbidities, chronic nature of impairments, advanced age, limited tolerance to activity . The patient will benefit from skilled therapy services to meet the goals established for this plan of care as noted below. Goals for Episode of Care: established 01/24/25 [place] in home exercise program. Patient will decrease pain rating by 2 points to meet minimal clinical important difference for numeric pain rating scale. Patient will increase active ROM of L hip flexion to moderate limitation to allow pt to to improve performance of ADLs and to improve gait mechanics / gait pattern . Patient will demonstrate increase in LLE strength to 4/5 during manual muscle testing in order to improve function for basic self-care tasks, home management tasks, and prior functional tasks. Perform walking, turning, standing, sitting, and rising from chair with decreased report of symptoms/pain in 4-6 weeks. Time Frame for Goals and Treatment : 02/24/25 Planned Interventions, Frequency, and Duration: Current Frequency: 1x/week Duration: 4 weeks Total Number of Visits Planned: 4 Planned Treatment Interventions: Therapeutic exercise (50871), Neuromuscular re-education (84874), Manual therapy (50109), Therapeutic activities (40232), Self-prison management (64483), Patient/Family/Caregiv er Education, Body Mechanics Training PLAN FOR NEXT VISIT: Continue movements and strength progression per tolerance. Manual for neck may be indicated Patient demonstrates good understanding of plan of care and treatment. The above goals and plan of care were discussed and agreed upon by patient/family. For further details regarding this patient refer to the Physical Therapy electronically documented visit dated 01/24/2025. Provider Attestation I have reviewed the treatment plan for Charlette Farmer, CC# [id number] for the period of 01/24/25 -- 03/07/25, established on 01/24/2025. Signature certifies the need for therapy services. Normal [facility] CNTHERAPYon 01-24-2025 CNTHERAPY OT/PT/Speech Visit (PTWS) CHARLETTE FARMER ([id number]) 1935 F Date Time Provider Department 01/24/25 10:00 AM JHOAN PROCTOR PTWS Date Time Provider Department Center 01/24/2025 10:00 AM [id number], SEAN PTAFUA Simpson Reason for Visit: PT Eval [747] Primary Visit Diagnosis:Acute hip pain, left [M25.552] Other Visit Diagnosis:Neck pain [M54.2] Allergies As of Date: 01/24/2025 Noted Allergy Reaction LIPITOR (ATORVASTATIN) 07/19/2007 5 - Intolerance Comments: myalgia SIMVASTATIN 07/19/2007 5 - Intolerance Comments: myalgia Date Reviewed: 01/22/2025 Reviewed by: Duyen Bey LPN - Fully Assessed Prescriptions as of 01/24/2025 - predniSONE (DELTASONE) 20 mg tablet Take 2 tablets by mouth once daily for 7 days. - insulin lispro (HUMALOG U-100 INSULIN) 100 unit/mL injection Inject 8 Units subcutaneously three times a day before meals. - aspirin 81 mg chewable tablet Take 81 mg by mouth once daily. - lancets (TRUEPLUS LANCETS) 33 gauge Use with blood glucose test two times a day. Insulin Dep? Yes - pramipexole (MIRAPEX) 0.25 mg tablet Take 1 tablet by mouth daily at bedtime. - lisinopril 2.5 mg tablet Take 1 tablet by mouth once daily. - Insulin Volborg, Disposable, (PEN NEEDLE) 29 gauge x 1/2 One needle three times daily. Dx: 250.02 Insulin: yes - blood sugar diagnostic (TRUE METRIX GLUCOSE TEST STRIP) test strip Test 3 times daily DX:250.02 Insulin: Yes - gabapentin (NEURONTIN) 600 mg tablet Take 1 tablet by mouth two times a day for 90 days. - insulin glargine (LANTUS SOLOSTAR U-100 INSULIN) 100 unit/mL (3 mL) Inject 18 units subcutaneously at bedtime - cyanocobalamin (VITAMIN B-12) 1,000 mcg tab Take one tablet every other day Dx: pernicious anemia - allopurinol (ZYLOPRIM) 100 mg tablet Take 1 tablet by mouth two times a day. - Acetaminophen 500 mg cap Take 2 capsules by mouth two times a day as needed for pain. Reports will utilize 1 500mg tab 1-2 times in between the 1000 mg doses - meclizine (ANTIVERT) 25 mg tab Take 25 mg by mouth as needed. - melatonin 3 mg Take by mouth daily at bedtime. - COMPOUNDED PRESCRIPTION Cock up wrist splint, right Medium. To be worn nightly to prevent carpal tunnel symptoms. Dx: carpal tunnel right - Blood-Glucose Meter, Drum-type (ACCU-CHEK COMPACT PLUS CARE) [facility] Each. Accu-Check Compact Plus Meter Diagnosis: Diabetes Mellitus Polymerization Supervisor: Addendum Therapy (PT/OT/Speech/Resp) ID: [id number] 01/24/2025 10:36 AM Author: JHOAN PROCTOR Signed by JHOAN PROCTOR PT on 01/24/2025 at 10:36 AM * * * This document replaces document [id number] * * * Document text: Program_ID:[id number] Access Code: [email or web address] URL: [email or web address] Date: 01-24-2025 Prepared By: Jhoan Porctor Program Notes Exercises - Bent Knee Fallouts - 1 x daily - 7 x weekly - 3 sets - 10 reps - Supine Heel Slide - 1 x daily - 7 x weekly - 3 sets - 10 reps - Seated Hip Adduction Squeeze with Ball - 1 x daily - 7 x weekly - 3 sets - 10 reps - Seated Isometric Hip Abduction - 1 x daily - 7 x weekly - 3 sets - 10 reps - Seated Cervical Rotation AROM - 3 x daily - 7 x weekly - 1 sets - 10 reps - Seated Cervical Sidebending AROM - 3 x daily - 7 x weekly - 1 sets - 3 reps -- Normal [facility] THERAPY NTon 01-24-2025 THERAPY NT HNO ID: [id number] Author: JHOAN PROCTOR PT Service: ? Author Type: Physical Therapist Type: Therapy (PT/OT/Speech/Resp) Filed: 01/24/2025 10:36 Note Text: Program_ID:[id number] Access Code: [email or web address] URL: [email or web address] Date: 01-24-2025 Prepared By: Jhoan Proctor Program Notes Exercises - Bent Knee Fallouts - 1 x daily - 7 x weekly - 3 sets - 10 reps - Supine Heel Slide - 1 x daily - 7 x weekly - 3 sets - 10 reps - Seated Hip Adduction Squeeze with Ball - 1 x daily - 7 x weekly - 3 sets - 10 reps - Seated Isometric Hip Abduction - 1 x daily - 7 x weekly - 3 sets - 10 reps - Seated Cervical Rotation AROM - 3 x daily - 7 x weekly - 1 sets - 10 reps - Seated Cervical Sidebending AROM - 3 x daily - 7 x weekly - 1 sets - 3 reps Normal [facility] CNOVon 01-22-2025 CNOV Office Visit (FAMPWS ) MARLENYMARIEUbaldo Silverman ([id number]) 1935 F Date Time Provider Department 01/22/25 1:40 PM MARIBEL FAY During your visit today, we recorded the following information about you: Pulse Respiration Blood pressure Weight 72/minute 16/minute 94/60 71.1 kg Maribel Fay MD 01/22/2025 2:15 PM Signed Chief Complaint Patient presents with: Follow Up: 4 week Pain: Stiffness neck and left leg c/o is useless- reports due to being in tight quarters in a car for 5-[address] plus stayed in soft bed while away HPI Charlette Herrera RussMarleny is a 89 year old female who presents here today for Above Complaints.. Patient states that she went on a 5-6 hour car trip about 1-2 weeks ago and since then has had a stiff neck and some pain in her left groin. Notes that she was cramped in the backseat and only stopped once on the way there and back. Pain in her left groin described as constant aching, 8/10, with occasional radiation down her leg to the ankle. Exacerbated with raising her left leg. Unable to bear weight on her left leg tarting yesterday because of the pain in her groin. Treating with tylenol 2-3 times per day which helps temporarily. Denies fever/chills, erythema, swelling, bruising, fall/injury. For her neck, she gets pain with rotation, but not with looking up or down. Currently 04/28. Tylenol does not seem to help much with this. Has not tried ice/heat or massage. Denies headache, vision changes, slurred speech, facial droop, numbness/tingling/weak ness. Past medical history, appointments, medications, allergies reviewed. Previous Medical History PAST MEDICAL HISTORY Diagnosis Date Arthritis Benign neoplasm of colon tubular adenoma Carpal tunnel syndrome, right Chronic kidney disease, stage 3 (HCC) Diverticulitis 10/10/2020 Diverticulosis of colon (without mention of hemorrhage) Gout History of colonic polyps 2023, hyperplastic and tubular adenoma History of transfusion Internal hemorrhoids without mention of complication Lumbago Malignant neoplasm of corpus uteri, except isthmus (HCC) 1996 Uterine cancer Other and unspecified hyperlipidemia PAD (peripheral artery disease) 2013 Mild LLE Pernicious anemia Restless leg syndrome Rotator cuff tendinitis left Trigger finger, right middle finger Seen by Dr. Burns 2015 Type II or unspecified type diabetes mellitus without mention of complication, uncontrolled Unspecified essential hypertension Previous Surgical History PAST SURGICAL HISTORY Procedure Laterality Date ABDOMINAL SURGERY HX APPENDECTOMY 1952 BACK SURGERY HX CHOLECYSTECTOMY 11/28/2011 COLONOSCOPY 07/12/2024 COLONOSCOPY FLX DX W/COLLJ SPEC WHEN PFRMD 2001 out of state sigmoidoscopy COLONOSCOPY FLX DX W/COLLJ SPEC WHEN PFRMD 10/22/2013 Colonoscopy COLONOSCOPY GEN ANES 01/07/2021 Dr. Phillips, Polyps. repeat in 3 years. COLONOSCOPY W/BIOPSY SINGLE/MULTIPLE 11/12/2008 DILATION AND CURETTAGE DXAND/THER NONOBSTETRIC 1965 Dilation AND curettage EGD 01/07/2021 EGD 07/12/2024 EYE SURGERY HX LAMINECTOMY W/O FFD 09/20 VERT SEG LUMBAR 1971 Laminectomy, lumbar, fusion PAST SURGICAL HISTORY OF Left 09/01/2017 Trigger finger release of left ringer finger RE[facility]ISE [facility]IAN N/CARPAL TUNNEL SURG Right 05/31/2023 RE[facility] N/CARPAL TUNNEL SURG Left 12/13/2024 TONSILLECTOMY HX TUBAL LIGATION HX VAGINAL HYSTERECTOMY VAGINAL HYSTERECTOMY UTERUS 250 GM/< 1997 Hysterectomy, vaginal Family History FAMILY HISTORY Problem Relation Age of Onset Cancer Mother breast, lung cancer was heavy smoker Diabetes Maternal Grandmother Diabetes Maternal Grandfather other (no siblings) Maternal Grandfather Patient Allergies ALLERGIES Allergen Reactions Lipitor [Atorvastat* Intolerance myalgia Simvastatin Intolerance myalgia Current Medications Current Outpatient Medications on File Prior to Visit Medication Sig insulin lispro (HUMALOG U-100 INSULIN) 100 unit/mL injection Inject 8 Units subcutaneously three times a day before meals. aspirin 81 mg chewable tablet Take 81 mg by mouth once daily. lancets (TRUEPLUS LANCETS) 33 gauge Use with blood glucose test two times a day. Insulin Dep? Yes pramipexole (MIRAPEX) 0.25 mg tablet Take 1 tablet by mouth daily at bedtime. lisinopril 2.5 mg tablet Take 1 tablet by mouth once daily. Insulin Volborg, Disposable, (PEN NEEDLE) 29 gauge x 1/2 One needle three times daily. Dx: 250.02 Insulin: yes blood sugar diagnostic (TRUE METRIX GLUCOSE TEST STRIP) test strip Test 3 times daily DX:250.02 Insulin: Yes gabapentin (NEURONTIN) 600 mg tablet Take 1 tablet by mouth two times a day for 90 days. insulin glargine (LANTUS SOLOSTAR U-100 INSULIN) 100 unit/mL (3 mL) Inject 18 units subcutaneously at bedtime cyanocobalamin (VITAMIN B-12) 1,000 mcg tab Ta (more content not included)... Normal [facility] No Panel Informationon 01-22 Radiology Study observation (narrative) [facility] XR CERV OTHER 4V AP/LAT/FLX/ EXTon 01-22-2025 IMPRESSION: Multilevel degenerative changes as described. Jet Inspector: PSCB Transcribe Date/Time: Jan 22 2025 3:02P Dictated by : LUPE ROSALES MD This examination was interpreted and the report reviewed and electronically signed by: LUPE ROSALES MD on Jan 22 2025 3:04PM [facility] DIVISION OF RADIOLOGY * * *Final Report* * * DATE OF EXAM: Jan 22 2025 2:50PM WOX 5310 - XR CERVICAL 4V AP/LAT/FLX/EXT / PROCEDURE REASON: Neck pain * * * * Physician Interpretation * * * * TITLE: XR CERVICAL 4V AP/LAT/FLX/EXT CLINICAL INDICATION: Neck pain TECHNIQUE: AP, lateral, and voluntary lateral flexion/extension radiographs of the cervical spine COMPARISON: None FINDINGS: Normal prevertebral soft tissues. Reversal of the normal cervical lordosis. Preservation of vertebral body height. Moderately severe disc space narrowing at C4/C5, C5/C6 and C6/C7 with marginal osteophyte formation, facet joint arthrosis and uncovertebral hypertrophy (left greater than right). Minimal grade 1 anterolisthesis of C2 on C3 without appreciable change with voluntary flexion/extension maneuvers. DIVISION OF RADIOLOGY Provider, [facility] - 01/22/2025 * * *Final Report* * * DATE OF EXAM: Jan 22 2025 2:50PM WOX 5310 - XR CERVICAL 4V AP/LAT/FLX/EXT / PROCEDURE REASON: Neck pain * * * * Physician Interpretation * * * * TITLE: XR CERVICAL 4V AP/LAT/FLX/EXT CLINICAL INDICATION: Neck pain TECHNIQUE: AP, lateral, and voluntary lateral flexion/extension radiographs of the cervical spine COMPARISON: None FINDINGS: Normal prevertebral soft tissues. Reversal of the normal cervical lordosis. Preservation of vertebral body height. Moderately severe disc space narrowing at C4/C5, C5/C6 and C6/C7 with marginal osteophyte formation, facet joint arthrosis and uncovertebral hypertrophy (left greater than right). Minimal grade 1 anterolisthesis of C2 on C3 without appreciable change with voluntary flexion/extension maneuvers. IMPRESSION IMPRESSION: Multilevel degenerative changes as described. Jet [facility]: [facility] Transcribe Date/Time: Jan 22 2025 3:02P Dictated by : LUPE ROSALES MD This examination was interpreted and the report reviewed and electronically signed by: LUPE ROSALES MD on Jan 22 2025 3:04PM [facility] XR CERV OTHER 4V AP/LAT/FLX/ EXTOrdered By: [facility]cf Provider on 01-22-2025 [facility] XR CERVICAL 4V AP/LAT/FLX/EX Ton 01-22-2025 XR CERVICAL 4V AP/LAT/FLX/EXT * * *Final Report* * * DATE OF EXAM: Jan 22 2025 2:50PM WOX [id number] - XR CERVICAL 4V AP/LAT/FLX/EXT / PROCEDURE REASON: Neck pain * * * * Physician Interpretation * * * * TITLE: XR CERVICAL 4V AP/LAT/FLX/EXT CLINICAL INDICATION: Neck pain TECHNIQUE: AP, lateral, and voluntary lateral flexion/extension radiographs of the cervical spine COMPARISON: None FINDINGS: Normal prevertebral soft tissues. Reversal of the normal cervical lordosis. Preservation of vertebral body height. Moderately severe disc space narrowing at C4/C5, C5/C6 and C6/C7 with marginal osteophyte formation, facet joint arthrosis and uncovertebral hypertrophy (left greater than right). Minimal grade 1 anterolisthesis of C2 on C3 without appreciable change with voluntary flexion/extension maneuvers. IMPRESSION: Multilevel degenerative changes as described. Jet Inspector: [facility] Transcribe Date/Time: Jan 22 2025 3:02P Dictated by : LUPE ROSALES MD This examination was interpreted and the report reviewed and electronically signed by: LUPE ROSALES MD on Jan 22 2025 3:04PM EST [id number] Normal [facility] XR HIP 3V PELV+ AP/LAT LTon 01-22-2025 XR HIP 3V PELV+ AP/LAT LT * * *Final Report* * * DATE OF EXAM: Jan 22 2025 2:50PM WOX [id number] - XR HIP 3V PELV+ AP/LAT LT / PROCEDURE REASON: Acute hip pain, left * * * * Physician Interpretation * * * * TITLE: XR HIP 3V PELV+ AP/LAT LT CLINICAL INDICATION: Hip pain TECHNIQUE: AP radiograph of the pelvis and AP/frog leg lateral radiographs of the left hip COMPARISON: Radiograph dated 09/28/2023 FINDINGS: There is severe arthropathy of the left hip with severe left hip joint space narrowing, subchondral sclerosis and subchondral cystic change. Findings have progressed when compared with prior study. There is a levocurvature of the visualized lower lumbar spine with multilevel degenerative changes. Stable deformity of the right lateral iliac wing. IMPRESSION: Severe arthropathy of the left hip as described. Jet Inspector: [facility] Transcribe Date/Time: Jan 22 2025 2:52P Dictated by : LUPE ROSALES MD This examination was interpreted and the report reviewed and electronically signed by: LUPE ROSALES MD on Jan 22 2025 2:54PM EST [id number] Normal [facility] XR Pelvis and Hip - left AP and Lateral frogon 01-22-2025 IMPRESSION: Severe arthropathy of the left hip as described. Jet Inspector: AN Transcribe Date/Time: Jan 22 2025 2:52P Dictated by : LUPE ROSALES MD This examination was interpreted and the report reviewed and electronically signed by: LUPE ROSALES MD on Jan 22 2025 2:54PM EST DIVISION OF RADIOLOGY * * *Final Report* * * DATE OF EXAM: Jan 22 2025 2:50PM WOX 5351 - XR HIP 3V PELV+ AP/LAT LT / PROCEDURE REASON: Acute hip pain, left * * * * Physician Interpretation * * * * TITLE: XR HIP 3V PELV+ AP/LAT LT CLINICAL INDICATION: Hip pain TECHNIQUE: AP radiograph of the pelvis and AP/frog leg lateral radiographs of the left hip COMPARISON: Radiograph dated 09/28/2023 FINDINGS: There is severe arthropathy of the left hip with severe left hip joint space narrowing, subchondral sclerosis and subchondral cystic change. Findings have progressed when compared with prior study. There is a levocurvature of the visualized lower lumbar spine with multilevel degenerative changes. Stable deformity of the right lateral iliac wing. DIVISION OF RADIOLOGY Provider, [facility] - 01/22/2025 * * *Final Report* * * DATE OF EXAM: Jan 22 2025 2:50PM WOX 5351 - XR HIP 3V PELV+ AP/LAT LT / PROCEDURE REASON: Acute hip pain, left * * * * Physician Interpretation * * * * TITLE: XR HIP 3V PELV+ AP/LAT LT CLINICAL INDICATION: Hip pain TECHNIQUE: AP radiograph of the pelvis and AP/frog leg lateral radiographs of the left hip COMPARISON: Radiograph dated 09/28/2023 FINDINGS: There is severe arthropathy of the left hip with severe left hip joint space narrowing, subchondral sclerosis and subchondral cystic change. Findings have progressed when compared with prior study. There is a levocurvature of the visualized lower lumbar spine with multilevel degenerative changes. Stable deformity of the right lateral iliac wing. IMPRESSION IMPRESSION: Severe arthropathy of the left hip as described. Jet Inspector: [facility] Transcribe Date/Time: Jan 22 2025 2:52P Dictated by : LUPE ROSALES MD This examination was interpreted and the report reviewed and electronically signed by: LUPE ROSALES MD on Jan 22 2025 2:54PM [facility] CNOVon 01-18-2025 CNOV Office Visit (PODIWS ) CHARLETTE FARMER ([id number]) 1935 F Date Time Provider Department 01/18/25 1:20 PM KAREL SANTIAGO PODIWS During your visit today, we recorded the following information about you: Karel Santiago 01/18/2025 1:35 PM Signed Last saw pcp: 12/20/24 Subjective: Patient presents to clinic c/o painful toenails. They state that the nails are especially painful with shoe gear and pressure. Patient states that nails 1-5 b/l are painful. Patient admits to being diabetic. Patient reports numbness in right foot. No other pedal complaints at this time. Patient states no change in medications or medical history since last visit. Objective: Patient presents to clinic ambulating in [facility] Vasc: DP and PT pulses are faintly palpable bilateral. CFT is less than 5 seconds bilateral. Skin temperature is warm to cool proximal to distal bilateral. There is moderate edema or varicosities noted. Neuro: Protective sensation is decreased to the foot and toes when tested with the 5.07 SWM bilateral. Vibratory sensation is absent at the hallux IPJ bilateral. The hallux is downgoing bilateral. Derm: Nails 1-5 b/l are painful, discolored-yellow, thick, crumbly, dystrophic and with subungal debris. Skin is of normal turgor, texture and hair growth is decreased bilateral. There are no hyperkeratosis, ulcerations, scars, verruca or other lesions noted. Ortho: Muscle strength is 5/5 for all pedal groups tested. Ankle joint DF is decreased with the knee extended with no pain or crepitus noted. 1st MPJ ROM is decreased bilateral. Hammertoe of b/l 2nd toe Assessment: (B35.1) Onychomycosis (primary encounter diagnosis) (M79.674) Pain in toe of right foot (M79.675) Pain in toe of left foot (E11.42) DM type 2 with diabetic peripheral neuropathy (HCC) (M20.42) Hammer toe of left foot (M20.41) Hammer toe of right foot Plan: Patient was seen and evaluated. Nails 1-5 bilateral were debrided in length and thickness. Patient was instructed on the continued importance of diabetic foot care along with proper diet and keeping their blood sugar under control to prevent complications. I stressed the importance of avoiding barefoot walking, wearing good shoes and inspection of feet. Due to hammertoe and neuropathy, we discussed diabetic shoes. She is inclined to continue with current shoes. Patient is to RTC in 3-4 months. LOLA Seymour Matthew 01/18/2025 1:30 PM Signed Diabetes Foot Care Instructions When you have diabetes, proper foot care is very important. Poor foot care may lead to amputation of a foot or leg. As a person with diabetes, you are more vulnerable to foot problems, because diabetes can damage your nerves and reduce blood flow to your feet. Here are some diabetes foot care tips to follow: Wash and Dry Your Feet Daily Use mild soaps Use warm water Pat your skin dry; do not rub. Thoroughly dry your feet. After washing, use lotion on your feet to prevent cracking. Do not put lotion between your toes. Examine Your Feet Each Day Check the tops and bottoms of your feet. Have someone else look at your feet if you cannot see them. Check for dry, cracked skin. Look for blisters, cuts, scratches, or other sores. Check for redness, increased warmth, or tenderness when touching any area of your feet. Check for ingrown toenails, corns, and calluses. If you get a blister or sore from your shoes, do not pop it. Apply a bandage and wear a different pair of shoes. Take Care of Your Toenails Cut toenails after bathing, when they are soft. Cut toenails straight across and smooth with a nail file. Avoid cutting into the corners of toes. Do not cut cuticles. If you have neuropathy (or decreased sensation in your feet) a clinical informatics director should always cut your toenails. Be Careful When Exercising Walk and exercise in comfortable shoes. Do not exercise when you have open sores on your feet. Protect Your Feet With Shoes and Socks Never go barefoot. Always protect your feet by wearing shoes or hard-soled slippers or footwear. Avoid shoes with high heels and pointed toes. Avoid shoes that expose your toes or heels (such as open-toed shoes or sandals). These types of shoes increase your risk for injury and potential infections. Try on new footwear with the type of socks you usually wear. Do not wear new shoes for more than an hour at a time. Change your socks daily. Look and feel inside your shoes before putting them on to make sure there are no foreign objects or rough areas. Avoid tight socks. Wear natural-fiber socks (cotton, wool, or a cotton-wool blend). Wear special shoes if your health care provider recommends them. Wear shoes/boots that will protect your feet from various weather conditions (cold, moisture, etc.). Make sure your shoes fit properly. If you have ne (more content not included)... Normal [facility] CNOVon 12-28-2024 CNOV Office Visit (GILMANA ) CHARLETTE FARMER ([id number]) 1935 F Date Time Provider Department 12/28/24 10:30 AM TANIKA MATHEWS During your visit today, we recorded the following information about you: Tanika Mathews PA-C 12/28/2024 11:15 AM Signed POST OP Tanika Mathews PA-C Department of Orthopaedics Orthopaedics [address] [place] [id number] Dept: [phone] Ms. Farmer presents today for her 10-14 day visit S/P left carpal tunnel release. DOS: 12/13/2024 History: her pain intensity is 1/10. The patient denies swelling, warmth, discharge, drainage, fevers, chills, sweats. She reports that her pre-operative pain has resolved and her numbness/tingling has been improving. She reports no change in past medical AND surgical history, medications, allergies, social history, family history and review of systems since last visit. Radiographs: not applicable Physical Examination: Appropriate postop appearance No evidence of erythema, warmth, discharge or drainage Incision clean/dry/intact Sutures intact Radial, median, and ulnar nerves intact. Radial pulse 2+, capillary refill <2 seconds. Procedure: SUTURE REMOVAL Date/Time: 12/28/2024 11:13 AM Performed by: Tanika Mathews PA-C Authorized by: Tanika Mathews PA-C Procedure details: Wound appearance: Clean Suture placed during surgical procedure Patient tolerance: Patient tolerated the procedure well with no immediate complications Plan: Progressing as expected in the immediate post operative period. Post op care discussed, all questions answered. Follow up as needed for repeat clinical evaluation. Tanika Mathews PA-C Allergies As of Date: 12/28/2024 Noted Allergy Reaction LIPITOR (ATORVASTATIN) 07/19/2007 5 - Intolerance Comments: myalgia SIMVASTATIN 07/19/2007 5 - Intolerance Comments: myalgia Date Reviewed: 12/28/2024 Reviewed by: Tanika Mathews PA-C - Fully Assessed Reason for Visit: Post Op [174] Primary Visit Diagnosis:S/P carpal tunnel release [Z98.890] Order(s):Suture Removal [PRO95] Order #: [id number] Prescriptions as of 12/28/2024 - insulin lispro (HUMALOG U-100 INSULIN) 100 unit/mL injection Inject 8 Units subcutaneously three times a day before meals. - aspirin 81 mg chewable tablet Take 81 mg by mouth once daily. - lancets (TRUEPLUS LANCETS) 33 gauge Use with blood glucose test two times a day. Insulin Dep? Yes - pramipexole (MIRAPEX) 0.25 mg tablet Take 1 tablet by mouth daily at bedtime. - lisinopril 2.5 mg tablet Take 1 tablet by mouth once daily. - Insulin Volborg, Disposable, (PEN NEEDLE) 29 gauge x 1/2 One needle three times daily. Dx: 250.02 Insulin: yes - blood sugar diagnostic (TRUE METRIX GLUCOSE TEST STRIP) test strip Test 3 times daily DX:250.02 Insulin: Yes - gabapentin (NEURONTIN) 600 mg tablet Take 1 tablet by mouth two times a day for 90 days. - insulin glargine (LANTUS SOLOSTAR U-100 INSULIN) 100 unit/mL (3 mL) Inject 18 units subcutaneously at bedtime - cyanocobalamin (VITAMIN B-12) 1,000 mcg tab Take one tablet every other day Dx: pernicious anemia - allopurinol (ZYLOPRIM) 100 mg tablet Take 1 tablet by mouth two times a day. - Acetaminophen 500 mg cap Take 2 capsules by mouth two times a day as needed for pain. Reports will utilize 1 500mg tab 1-2 times in between the 1000 mg doses - meclizine (ANTIVERT) 25 mg tab Take 25 mg by mouth as needed. - melatonin 3 mg Take by mouth daily at bedtime. - COMPOUNDED PRESCRIPTION Cock up wrist splint, right Medium. To be worn nightly to prevent carpal tunnel symptoms. Dx: carpal tunnel right - Blood-Glucose Meter, Drum-type (ACCU-CHEK COMPACT PLUS CARE) [place] Kit 1 Each. Accu-Check Compact Plus Meter Diagnosis: Diabetes Mellitus Problem List As Of Date 12/28/2024 Noted Resolved Other specified disorders of rotator cuff syndr*02/16/2006 10/18/2016 Malignant neoplasm of corpus uteri, except isth* 11/24/2015 HYPERLIPIDEMIA NEC/NOS [E78.5] 10/14/2015 Lumbago [M54.50] 06/15/2016 DIABETES MELLITUS TYPE II UNCONTR UNCOMPL [IMO0* 07/18/2014 HYPERTENSION NOS [I10] 10/14/2015 Special screening for malignant neoplasms, colo*11/12/2008 11/24/2015 Benign neoplasm of colon [D12.6] 11/12/2008 11/24/2015 Diverticulosis of colon [K57.30] 11/12/2008 Internal hemorrhoids without mention of complic*11/12/2008 10/14/2015 Tubular adenoma of rectum [D12.8] 02/25/2011 11/24/2015 Pernicious anemia [D51.0] 08/25/2012 Medicare annual wellness visit, initial [Z00.00]09/28/2013 11/24/2015 Stage 3b chronic kidney disease (HCC) [N18.32] 04/12/2014 PAD (peripheral artery disease) (HCC) [I73.9] 05/02/2014 Medicare annual wellness visit, subsequent [Z00*10/11/2014 11/24/2015 Diabetes mellitus with neuropathy (HCC) [E11.40]10/11/2014 11/24/2015 Essential hypertension [ (more content not included)... Normal [facility] Suture Removalon 12-28-2024 Tanika Mathews PA-C 12/28/2024 11:15 AM SUTURE REMOVAL Date/Time: 12/28/2024 11:13 AM Performed by: Tanika Mathews PA-C Authorized by: Tanika Mathews PA-C Procedure details: Wound appearance: Clean Suture placed during surgical procedure Patient tolerance: Patient tolerated the procedure well with no immediate complications [facility] CNOVon 12-20-2024 CNOV Office Visit (FAMPWS ) CHARLETTE FARMER ([id number]) 1935 F Date Time Provider Department 12/20/24 1:40 PM MARIBEL FAY FAMPWS During your visit today, we recorded the following information about you: Pulse Respiration Blood pressure Weight 74/minute 16/minute 108/60 73.3 kg Maribel Fay MD 12/25/2024 7:52 AM Signed Chief Complaint Patient presents with: Follow Up: 4 week HPI Charlette Farmer is a 89 year old female who presents here today for 4 week follow up on diabetes and hypoglycemia. Increased patient's lispro insuln from 4 to 6 units at last OV and she has been checking sugars fasting and before bed. Fasting readings typically between 80-150 with majority of readings <130. Before bed readings have been 180-300 with readings typically around the 250's. States that she has cut out sweets and ice cream. Trying to eat more healthy fruits and vegetables. Noted she had left carpal tunnel release last week without complications. Sutures in place. Taking tylenol PRN for mild pain. Has follow with ortho on 12/28. Denies fever/chills, erythema, swelling, drainage, pain. Past medical history, appointments, medications, allergies reviewed. Previous Medical History PAST MEDICAL HISTORY Diagnosis Date Arthritis Benign neoplasm of colon tubular adenoma Carpal tunnel syndrome, right Chronic kidney disease, stage 3 (HCC) Diverticulitis 10/10/2020 Diverticulosis of colon (without mention of hemorrhage) Gout History of colonic polyps 2023, hyperplastic and tubular adenoma History of transfusion Internal hemorrhoids without mention of complication Lumbago Malignant neoplasm of corpus uteri, except isthmus (HCC) 1996 Uterine cancer Other and unspecified hyperlipidemia PAD (peripheral artery disease) 2013 Mild LLE Pernicious anemia Restless leg syndrome Rotator cuff tendinitis left Trigger finger, right middle finger Seen by Dr. Burns 2015 Type II or unspecified type diabetes mellitus without mention of complication, uncontrolled Unspecified essential hypertension Previous Surgical History PAST SURGICAL HISTORY Procedure Laterality Date ABDOMINAL SURGERY HX APPENDECTOMY 1952 BACK SURGERY HX CHOLECYSTECTOMY 11/28/2011 COLONOSCOPY 07/12/2024 COLONOSCOPY FLX DX W/COLLJ SPEC WHEN PFRMD 2001 out of state sigmoidoscopy COLONOSCOPY FLX DX W/COLLJ SPEC WHEN PFRMD 10/22/2013 Colonoscopy COLONOSCOPY GEN ANES 01/07/2021 Dr. Phillips, Polyps. repeat in 3 years. COLONOSCOPY W/BIOPSY SINGLE/MULTIPLE 11/12/2008 DILATION AND CURETTAGE DXAND/THER NONOBSTETRIC 1965 Dilation AND curettage EGD 01/07/2021 EGD 07/12/2024 EYE SURGERY HX LAMINECTOMY W/O FFD 1/2 VERT SEG LUMBAR 1971 Laminectomy, lumbar, fusion PAST SURGICAL HISTORY OF Left 09/01/2017 Trigger finger release of left ringer finger REVISE MEDIAN N/CARPAL TUNNEL SURG Right 05/31/2023 TONSILLECTOMY HX TUBAL LIGATION HX VAGINAL HYSTERECTOMY VAGINAL HYSTERECTOMY UTERUS 250 GM/< 1997 Hysterectomy, vaginal Family History FAMILY HISTORY Problem Relation Age of Onset Cancer Mother breast, lung cancer was heavy smoker Diabetes Maternal Grandmother Diabetes Maternal Grandfather other (no siblings) Maternal Grandfather Patient Allergies ALLERGIES Allergen Reactions Lipitor [Atorvastat* Intolerance myalgia Simvastatin Intolerance myalgia Current Medications Current Outpatient Medications on File Prior to Visit Medication Sig aspirin 81 mg chewable tablet Take 81 mg by mouth once daily. lancets (TRUEPLUS LANCETS) 33 gauge Use with blood glucose test two times a day. Insulin Dep? Yes pramipexole (MIRAPEX) 0.25 mg tablet Take 1 tablet by mouth daily at bedtime. lisinopril 2.5 mg tablet Take 1 tablet by mouth once daily. insulin lispro (HUMALOG U-100 INSULIN) 100 unit/mL injection Inject 6 Units subcutaneously three times a day before meals. Insulin Volborg, Disposable, (PEN NEEDLE) 29 gauge x 1/2 One needle three times daily. Dx: 250.02 Insulin: yes blood sugar diagnostic (TRUE METRIX GLUCOSE TEST STRIP) test strip Test 3 times daily DX:250.02 Insulin: Yes gabapentin (NEURONTIN) 600 mg tablet Take 1 tablet by mouth two times a day for 90 days. insulin glargine (LANTUS SOLOSTAR U-100 INSULIN) 100 unit/mL (3 mL) Inject 18 units subcutaneously at bedtime cyanocobalamin (VITAMIN B-12) 1,000 mcg tab Take one tablet every other day Dx: pernicious anemia allopurinol (ZYLOPRIM) 100 mg tablet Take 1 tablet by mouth two times a day. Acetaminophen 500 mg cap Take 2 capsules by mouth two times a day as needed for pain. Reports will utilize 1 500mg tab 1-2 times in between the 1000 mg doses meclizine (ANTIVERT) 25 mg tab Take 25 mg by mouth as needed. melatonin 3 mg Take by mouth daily at bedtime. COMPOUNDED PRESCRIPTION Cock up wrist splint, right Medium. (more content not included)... Normal [facility] ANES POSTPROC EVALon 025 ANES POSTPROC EVAL HNO ID: [id number] Author: MINA STOKES MD Service: ? Author Type: Anesthesiologist Type: Anesthesia Postprocedure Evaluation Filed: 12/13/2024 12:13 Note Text: POST ANESTHESIA EVALUATION NOTE : 1935 Procedure Summary Date: 12/13/24 Room / Location: [place] OR01 / [place] Anesthesia Start: 1000 Anesthesia Stop: 1045 Procedure: DECOMPRESSION NERVE MEDIAN CARPAL TUNNEL (Left: Wrist) Diagnosis: Carpal tunnel syndrome of left wrist (Carpal tunnel syndrome of left wrist [G56.02]) Surgeons: Savana De Oliveira DO Responsible Provider: Mina Stokes MD Anesthesia Type: MAC ASA Status: 3 Anesthesia Type: MAC Last Vitals Vitals Value Taken Time BP 116/56 12/13/24 1126 Temp 36.3 ?C (97.3 ?F) 12/13/24 1045 HR SpO2 60 12/13/24 1126 Resp 16 12/13/24 1126 SpO2 98 % 12/13/24 1126 Post Anesthesia Patient Status Patient Evaluation: bedside. Anticipated Disposition: phase 2 then home. Neurological Status: aware and responsive. Pulmonary Status: breathing comfortably on room air Airway Control: returned to baseline unsupported. Cardiovascular Status: stable. Pain Management: clinically adequate Postoperative Hydration: acceptable. Intraoperative Events: no significant anesthesia events Post Operative Nausea/Vomiting Status: no significant post operative nausea or vomiting Recommendation: continue current plan of care. Anesthesia Observations No Documentation SIGNATURE: Mina Stokes MD PATIENT NAME: Charlette Farmer DATE: December 13, 2024 TIME: 12:12 PM CSN: [id number] [facility] ANES PRE-OPon 12-13-2024 ANES PRE-OP HNO ID: [id number] Author: MINA STOKES MD Service: ? Author Type: Anesthesiologist Type: Anesthesia Preprocedure Evaluation Filed: 12/13/2024 09:38 Note Text: ANESTHESIOLOGY DAY OF SURGERY NOTE : 1935 Procedure Information Date/Time: 12/13/24 1010 Procedure: DECOMPRESSION NERVE MEDIAN CARPAL TUNNEL (Left: Wrist) Location: [place] OR01 [place] Surgeons: Savana De Oliveira DO Estimated body mass index is 30.04 kg/m? as calculated from the following: Height as of this encounter: 154.9 cm (5' 1). Weight as of this encounter: 72.1 kg (159 lb). Most recent hematocrit and potassium results: Hematocrit 35.5 08/17/2024 Potassium 4.0 11/19/2024 Relevant Problems CARDIO (+) Essential hypertension (+) PAD (peripheral artery disease) (+) Type 2 diabetes mellitus with diabetic peripheral angiopathy without gangrene, with long-term current use of insulin (HCC) ENDO (+) Type 2 diabetes mellitus with diabetic chronic kidney disease (HCC) (+) Type 2 diabetes mellitus with diabetic peripheral angiopathy without gangrene, with long-term current use of insulin (HCC) -RENAL (+) Stage 3b chronic kidney disease (HCC) (+) Stage 4 chronic kidney disease (HCC) (+) Type 2 diabetes mellitus with diabetic chronic kidney disease (HCC) NEURO-PSYCH (+) History of colonic polyps (+) Personal history of malignant neoplasm of cervix uteri Other (+) Arthritis of left hip I - PHYSICAL EVALUATION AIRWAY Patient intubated: No. Tracheostomy tube not present Mallampati: II. TM distance: >3 FB. Neck ROM: full ROM without neurological symptoms. Mouth opening: adequate. Short neck: no. Thick neck: no DENTAL Dentures, upper: complete. Additional exam findings: yes. CARDIOVASCULAR Rhythm: regular Rate: normal PULMONARY Breath sounds clear to auscultation. II - ANESTHESIA PLAN ASA Score: 3 The patient is not a current smoker. NPO Status: adequate Beta Mee Monitoring Plan Monitoring plan: standard ASA. Post Procedure Analgesic Plan Postoperative analgesic plan: multimodal analgesia. Informed Consent Anesthetic risks, benefits, alternatives, personnel and consent discussed: yes. Patient / Responsible Republican agrees to proceed: yes Patient / Surrogate agrees to blood products: Yes DNR status not reviewed with patient and/or family prior to surgery. Significant changes in the patient condition since the History and Physical, not otherwise documented in primary service progress note: no. Potential Anesthesia issues that may suggest increased risk of complications or contraindication to planned procedure: none. Vitals Value Taken Time BP 112/57 12/13/24 0920 Pulse 73 12/13/24 0920 Resp 16 12/13/24 0920 Temp 36.2 ?C (97.2 ?F) 12/13/24 0920 SpO2 95 % 12/13/24 0920 Facility-Administered Medications as of 12/13/2024 Medication Dose Route Frequency lidocaine (PF) 10 mg/mL (1 %) 1-2 mg injection (XYLOCAINE) 0.1-0.2 mL INTRADERMAL PRN lactated ringers iv infusion 5-30 mL/hr INTRAVENOUS CONTINUOUS NaCl 0.9% iv flush bag 20 mL INTRAVENOUS PRN ceFAZolin iv piggyback 2 g in D5W (iso-osmotic) 100 mL (ANCEF) 2 g INTRAVENOUS Pre-Op Once acetaminophen 650 mg tab(s) (TYLENOL) 650 mg ORAL Pre-Op Once Outpatient Medications as of 12/13/2024 Medication Sig aspirin 81 mg chewable tablet Take 81 mg by mouth once daily. insulin lispro (HUMALOG U-100 INSULIN) 100 unit/mL injection Inject 6 Units subcutaneously three times a day before meals. Insulin Volborg, Disposable, (PEN NEEDLE) 29 gauge x 1/2 One needle three times daily. Dx: 250.02 Insulin: yes blood sugar diagnostic (TRUE METRIX GLUCOSE TEST STRIP) test strip Test 3 times daily DX:250.02 Insulin: Yes gabapentin (NEURONTIN) 600 mg tablet Take 1 tablet by mouth two times a day for 90 days. insulin glargine (LANTUS SOLOSTAR U-100 INSULIN) 100 unit/mL (3 mL) Inject 18 units subcutaneously at bedtime cyanocobalamin (VITAMIN B-12) 1,000 mcg tab Take one tablet every other day Dx: pernicious anemia allopurinol (ZYLOPRIM) 100 mg tablet Take 1 tablet by mouth two times a day. Acetaminophen 500 mg cap Take 2 capsules by mouth two times a day as needed for pain. Reports will utilize 1 500mg tab 1-2 times in between the 1000 mg doses meclizine (ANTIVERT) 25 mg tab Take 25 mg by mouth as needed. melatonin 3 mg Take by mouth daily at bedtime. COMPOUNDED PRESCRIPTION Cock up wrist splint, right Medium. To be worn nightly to prevent carpal tunnel symptoms. Dx: carpal tunnel right Blood-Glucose Meter, Drum-type (ACCU-CHEK COMPACT PLUS CARE) [place] Kit 1 Each. Accu-Check Compact Plus Meter Diagnosis: Diabetes Mellitus I have interviewed and examined the patient. I have reviewed the medical record and/or the pre-anesthesia evaluation, pertinent labs, and test results. This contains updated information obtained within 48 hours of Surgery/Procedure. SIGNATURE: Mina Stokes MD PATIENT NAME: Charlette Gibbs (more content not included)... [facility] OPERATIVE NOon 12-13-2024 OPERATIVE NO HNO ID: [id number] Author: SAVANA DE OLIVEIRA DO Service: Orthopaedic Surgery Author Type: Physician Type: Operative Report Filed: 12/13/2024 10:42 Note Text: OPERATIVE/PROCEDURE REPORT LOG ID: [id number] SURGERY/PROCEDURE DATE: 12/13/2024 INCISION/PROCEDURE START TIME: 10:20 AM INCISION CLOSE/PROCEDURE END TIME: 10:34 AM SURGEON(S)/PROCEDURALI ST(S) AND CERAMIC MAKER DEMONSTRATOR(S): Surgeons and Role: * Savana De Oliveira DO - Primary Nurse Practitioner: Cheryl Prather APRN.SHELF FILLER Physician Production Control Expert: Tanika Mathews PA-C SURGERY/PROCEDURE(S): Left carpal tunnel release ANESTHESIA: Monitored Anesthesia Care SURGERY/PROCEDURE DETAILS: OPERATIVE/PROCEDURE REPORT LOG ID: [id number] Surgery/Procedure Date: 12/13/2024 Incision/Procedure Start Time: 10:20 AM Incision Close/Procedure End Time: 10:34 AM Surgeon(s)/Elidiai st(s) and Production Control Expert(s): Surgeons and Role: * Savana De Oliveira DO - Primary Nurse Practitioner: Cheryl Prather APRN.SHELF FILLER Physician Production Control Expert: Tanika Mathews PA-C Procedure(s): OPERATION: Left carpal tunnel release, open. ANESTHESIA: local. PREOPERATIVE DIAGNOSIS: Left carpal tunnel syndrome. POSTOPERATIVE DIAGNOSIS: Left carpal tunnel syndrome. OPERATIVE INDICATIONS: This is a pleasant 89 year old female who had worsening, numbness, and tingling. Her electrodiagnostic showed moderate carpal tunnel syndrome. She exhausted conservative management and in the office, we discussed the risks, benefits, alternatives, and potential complications involving carpal tunnel release and he wished to pursue surgical intervention. We discussed that the goal of carpal tunnel surgery is to prevent symptoms from worsening, and that surgery may not alleviate all of his/her symptoms. OPERATIVE FINDINGS: Consistent with postoperative diagnosis. OPERATIVE PROCEDURE: On December 13, 2024, the patient was clearly identified in the preoperative area and marked accordingly on the Left palm by myself. She was taken to the operative suite and placed in the supine position with an armboard on the Left. All other bony landmarks were appropriately padded in standard fashion. The arm was then sterilely prepped and draped in standard fashion after local block was achieved. An appropriate time-out was conducted and all in the room were in agreement, signed consent form was on the chart. A longitudinal incision was made with in line with the third web space from 1 cm distal of the wrist crease to Saldaña's cardinal line. I used Oneil Rakes to retract the soft tissues. Bipolar electrocautery was used for hemostasis. I bluntly dissected down with Littler scissors to distal edge of the transverse carpal ligament until a flash of fat was noted. I directly divided distal edgeof the transverse carpal ligament with a #15 blade. Attention was then focused on the proximal portion and I used Littler scissors to bluntly dissect off the volar surface of the transverse carpal ligament. Blunt mets were used to completely divided the transverse carpal ligament proximally under standard technique. Oneil rakes were used to view up the wound to visualize for complete release and a [place] elevator was used to palpate for complete release. Hemostasis was observed, all neurovascular structures were protected throughout the case. The wound was copiously irrigated with normal saline and I closed with 3-0 nylons in horizontal mattress fashion for a total of 3. Xeroform gauze, sterile 4 x 4 gauze, Webril padding, and a Bias roll was used for final bandage. There were no complications during the procedure. The patient was safely transferred to the Postanesthetic Care Unit in stable condition. I performed the entire procedure. SIGNATURE: Savana De Oliveira DO PATIENT NAME: Charlette Farmer DATE: December 13, 2024 TIME: 10:41 AM PAGER/CONTACT #: PRE-OP/PRE-PROCEDURE DIAGNOSIS: left cts POST-OP/POST-PROCEDURE DIAGNOSIS: Same as Preop ESTIMATED BLOOD LOSS: 0 ml SPECIMENS: None IMPLANTABLE DEVICES: NONE DRAINS: None COMPLICATIONS: None CLOSURE TECHNIQUE: Primary PARTICIPATION IN SURGERY/PROCEDURE: I/primary surgeon/proceduralist performed the procedure with assistance. No qualified resident/fellow was available. SIGNATURE: Savana De Oliveira DO PATIENT NAME: Charlette Farmer DATE: December 13, 2024 TIME: 10:41 AM Normal [facility] 12-11-2024 CELSA Telephone (SUDHAKAR) CHARLETTE FARMER ([id number]) 1935 F Date Time Provider Department 12/11/24 GREG PURDY During your visit today, we recorded the following information about you: Greg Purdy APRN.CNP 12/11/2024 8:39 AM Signed [place] pt scheduled for CTS release with you in [place] 12/13/2024. Pt's last A1c 8.8 11/19/2024. She is IDDM. Please advise if okay to proceed as is? [facility] 12/19[facility]24 10:16 AM Signed Savana De Oliveira DO You; Tanika Mathews PA-C8 days ago Ok to proceed. Savana De Oliveira DO Lewis, Jillian S, APRN.CNP8 days ago Yes, thanks:) Allergies As of Date: 12/11/2024 Noted Allergy Reaction LIPITOR (ATORVASTATIN) 07/19/2007 5 - Intolerance Comments: myalgia SIMVASTATIN 07/19/2007 5 - Intolerance Comments: myalgia Date Reviewed: 12/11/2024 Reviewed by: Greg Purdy APRN.SHELF FILLER - Fully Assessed Reason for Visit: Pre-op A1c Level [Other] Prescriptions as of 12/19/2024 - aspirin 81 mg chewable tablet Take 81 mg by mouth once daily. - lancets (TRUEPLUS LANCETS) 33 gauge Use with blood glucose test two times a day. Insulin Dep? Yes - pramipexole (MIRAPEX) 0.25 mg tablet Take 1 tablet by mouth daily at bedtime. - lisinopril 2.5 mg tablet Take 1 tablet by mouth once daily. - insulin lispro (HUMALOG U-100 INSULIN) 100 unit/mL injection Inject 6 Units subcutaneously three times a day before meals. - Insulin Volborg, Disposable, (PEN NEEDLE) 29 gauge x 1/2 One needle three times daily. Dx: 250.02 Insulin: yes - blood sugar diagnostic (TRUE METRIX GLUCOSE TEST STRIP) test strip Test 3 times daily DX:250.02 Insulin: Yes - gabapentin (NEURONTIN) 600 mg tablet Take 1 tablet by mouth two times a day for 90 days. - insulin glargine (LANTUS SOLOSTAR U-100 INSULIN) 100 unit/mL (3 mL) Inject 18 units subcutaneously at bedtime - cyanocobalamin (VITAMIN B-12) 1,000 mcg tab Take one tablet every other day Dx: pernicious anemia - allopurinol (ZYLOPRIM) 100 mg tablet Take 1 tablet by mouth two times a day. - Acetaminophen 500 mg cap Take 2 capsules by mouth two times a day as needed for pain. Reports will utilize 1 500mg tab 1-2 times in between the 1000 mg doses - meclizine (ANTIVERT) 25 mg tab Take 25 mg by mouth as needed. - melatonin 3 mg Take by mouth daily at bedtime. - COMPOUNDED PRESCRIPTION Cock up wrist splint, right Medium. To be worn nightly to prevent carpal tunnel symptoms. Dx: carpal tunnel right - Blood-Glucose Meter, Drum-type (ACCU-CHEK COMPACT PLUS CARE) [facility]. Accu-Check Compact Plus Meter Diagnosis: Diabetes Mellitus Problem List As Of Date 12/11/2024 Noted Resolved Other specified disorders of rotator cuff syndr*02/16/2006 10/18/2016 Malignant neoplasm of corpus uteri, except isth* 11/24/2015 HYPERLIPIDEMIA NEC/NOS [E78.5] 10/14/2015 Lumbago [M54.50] 06/15/2016 DIABETES MELLITUS TYPE II UNCONTR UNCOMPL [IMO0* 07/18/2014 HYPERTENSION NOS [I10] 10/14/2015 Special screening for malignant neoplasms, colo*11/12/2008 11/24/2015 Benign neoplasm of colon [D12.6] 11/12/2008 11/24/2015 Diverticulosis of colon [K57.30] 11/12/2008 Internal hemorrhoids without mention of complic*11/12/2008 10/14/2015 Tubular adenoma of rectum [D12.8] 02/25/2011 11/24/2015 Pernicious anemia [D51.0] 08/25/2012 Medicare annual wellness visit, initial [Z00.00]09/28/2013 11/24/2015 Stage 3b chronic kidney disease (HCC) [N18.32] 04/12/2014 PAD (peripheral artery disease) (HCC) [I73.9] 05/02/2014 Medicare annual wellness visit, subsequent [Z00*10/11/2014 11/24/2015 Diabetes mellitus with neuropathy (HCC) [E11.40]10/11/2014 11/24/2015 Essential hypertension [I10] 10/14/2015 Mixed hyperlipidemia [E78.2] 10/14/2015 DM type 2 with diabetic peripheral neuropathy (*11/12/2015 Trigger middle finger of right hand [M65.331] 11/20/2015 Trigger finger, left ring finger [M65.342] 08/25/2017 Restless leg syndrome [G25.81] Type 2 diabetes mellitus with diabetic chronic *08/15/2023 Type 2 diabetes mellitus with diabetic peripher*11/05/2022 Carpal tunnel syndrome, right [G56.01] 11/09/2022 Stage 4 chronic kidney disease (HCC) [N18.4] 09/08/2023 Personal history of malignant neoplasm of cervi*09/08/2023 Diagnosed: 1996 Arthritis of left hip [M16.12] 11/08/2023 History of colonic polyps [Z86.0100] 07/12/2024 Positive fecal occult blood test [R19.5] 07/12/2024 History of lumbar fusion [Z98.1] 12/11/2024 Gout [M10.9] 12/11/2024 Former smoker [Z87.891] 12/11/2024 BMI 30.0-30.9,adult [Z68.30] 12/11/2024 Encounter Status:Closed by PAN MCCLELLAND on 12/19/24 Normal [facility] [place] HISTORY PHYSICALon HISTORY PHYSICAL HNO ID: [id number] Author: GREG PURDY APRN.SHELF FILLER Service: ? Author Type: Nurse Practitioner Type: H&P Filed: 12/11/2024 08:44 Note Text: [facility] HISTORY AND PHYSICAL EXAMINATION SERVICE DATE: 12/07/2024 SERVICE TIME: 8:43 AM PRIMARY CARE PHYSICIAN: Maribel Fay MD Assessment Patient has the following medical conditions which may affect cindy-operative course: Essential hypertension Assessment: controlled on rx Last 14 BP Last 14 Encounter BP Readings: Date: BP: 12/07/2024 112/62 11/19/2024 102/58 09/27/2024 106/58 09/06/2024 112/60 08/17/2024 108/62 07/12/2024 107/56 06/19/2024 114/62 06/06/2024 122/70 05/16/2024 112/60 02/14/2024 104/62 12/23/2023 122/72 11/15/2023 104/74 10/07/2023 118/66 09/23/2023 104/58 Mixed hyperlipidemia Assessment: statin intolerant PAD (peripheral artery disease) (HCC) Assessment: mild, denies claudication Type 2 diabetes mellitus with diabetic peripheral angiopathy without gangrene, with long-term current use of insulin (HCC) Assessment: IDDM Hemoglobin A1C (%) Date Value 11/19/2024 8.8 11/03/2021 7.9 Stage 3b chronic kidney disease (HCC) Assessment: following nephrology Creatinine Date Value Ref Range Status 11/19/2024 1.19 (H) 0.58 - 0.96 mg/dL Final 08/17/2024 1.22 (H) 0.58 - 0.96 mg/dL Final 06/06/2024 1.13 (H) 0.58 - 0.96 mg/dL Final 05/15/2024 1.06 (H) 0.58 - 0.96 mg/dL Final Pernicious anemia Assessment: Hemoglobin (g/dL) Date Value 08/17/2024 11.6 01/16/2021 12.1 Hematocrit (%) Date Value 08/17/2024 35.5 01/16/2021 36.5 WBC (k/uL) Date Value 08/17/2024 6.03 01/16/2021 8.61 Personal history of malignant neoplasm of cervix uteri Assessment: s/p hyster History of lumbar fusion Assessment: hx, controlled on rx Restless leg syndrome Assessment: controlled on rx DM type 2 with diabetic peripheral neuropathy (HCC) Assessment: controlled on rx Gout Assessment: controlled on rx Former smoker Assessment: 1ppd/21 years, quit 1973, denies asthma or COPD, lungs CTA, pulse ox 94% on RA BMI 30.0-30.9,adult Assessment: Body mass index is 30.04 kg/m?. ANESTHESIA FINDINGS: Intubation History: No history of difficult intubation Significant Anesthesia Considerations: none Airway History: No history of difficult airway [place] Activity Status Index: METS: Climb a flight of stairs or walk up a hill (5.50 METs) DASI Score: 5.5 Patient denies any chest pain or undue shortness of breath with the above physical activity. Clinical Frailty Scale: 3. Well, with treated comorbid disease STOP-Bang Score: Patient over 50 years old Denies snoring loudly Denies feeling tired, fatigued, or sleepy during the daytime Has not been observed to stop breathing or choking/gasping during sleep Denies having high blood pressure BMI less than or equal to 35 kg/m2 Does not have a large neck Non-male patient STOP-Bang Score: 1 [id number] Score: Age: >=75 Sex: female CHF history: No Hypertension history: Yes Stroke/TIA/thromboembo lism history: No Vascular disease history: Yes Diabetes history: Yes [id number] Score: 6 ARISCAT Score: Age: >80 Preoperative SpO2: 91-95% Respiratory infection in the last month: No Preoperative anemia: No Surgical incision: peripheral Duration of surgery: <2 hrs Emergency procedure: No ARISCAT Score: 24 I - PHYSICAL EVALUATION AIRWAY Patient intubated: No. Tracheostomy tube not present Mallampati: III. TM distance: >3 FB. Neck ROM: full ROM without neurological symptoms. Mouth opening: adequate. Short neck: no. Thick neck: no Cantrell present: no Lip Bite Test: I Microretrognathia/Micr onagthia/Recessed Chin: No DENTAL Dental findings: teeth intact. Dentures, upper: complete. II - ANESTHESIA PLAN Anesthetic Plan: other Beta Mee Monitoring Plan Post Procedure Analgesic Plan Prepared for Surgery: optimally prepared for surgery. CONSULTS: Patient does not require consults for optimization at this time Planned Anesthetic: other anesthesia choice The Following Tests/Procedures Have Been Initiated: No orders of the defined types were placed in this encounter. REASON FOR VISIT: Charlette Farmer is a 89 year old female who is scheduled for Procedure(s): DECOMPRESSION NERVE MEDIAN CARPAL TUNNEL (Left) at the request of Dr. Savana De Oliveira for consultation. My final recommendation will be communicated back to the requesting physician by way of shared medical record or letter. Subjective The patient has the following: COVID-19 Immunization Status Upcoming Covid-19 Vaccine ( season) Next due on 01/01/2025 07/03/2024 Imm Admin: COVID-19 vaccine, age 12+ yr (MODERNA) 12/23/2023 Imm Admin: COVID-19 vaccine, age 12+ yr, season (PFIZER-BIONTCreatorBox) 11/15/2023 Postponed until 11/15/2024 by Aaron (more content not included)... Normal [facility] [place] CNOVon 11-30-2024 CNOV Office Visit (ORMDNA ) CHARLETTE FARMER ([id number]) 1935 F Date Time Provider Department 11/30/24 10:30 AM SAVANA DE OLIVEIRA During your visit today, we recorded the following information about you: Savana De Oliveira DO 12/04/2024 8:38 AM Signed Follow Up Visit Chief Complaint Charlette Farmer is a 89 year old female who presents today for follow up office visit. Patient presents with: Left Hand - Established Patient, Pain, Numbness History of Present Illness PAIN EVALUATION 11/30/2024 1046 Pain Level: 1 Pain Location: Hand-Left Description: Numbness Duration Amount of Time: 1 Duration Units: Years Frequency: Intermittent HPI: Charlette Farmer is a 89 year old female for a follow up visit left hand numbness. Patient has been experiencing numbness into first 3 digits for past year. She states that it is starting to interfere with activities she enjoys. Previous right CTR in May 2023. Pain history is noted as above. Is there any overall improvement in your condition? No Any new injury, since being seen last: No REVIEW OF SYMPTOMS: Patient did not have, and does not currently have, any weight loss, malaise, fever, chills, headache, chest pain, chest pressure, palpitations, cough, shortness of breath, orthopnea, paroxsymal nocturnal dyspnea, nausea, vomiting, diarrhea, constipation, melena, hematochezia, urinary difficulties, prolonged bleeding, easily bruising, heat or cold intolerance, new onset joint pain or swelling, new onset extremity weakness or numbness, new onset auditory or visual disturbances, lightheadedness, dizziness, partial loss of consciousness or full loss of consciousness. Current Outpatient Medications Medication Sig - insulin lispro (HUMALOG U-100 INSULIN) 100 unit/mL injection Inject 6 Units subcutaneously three times a day before meals. - fluconazole (DIFLUCAN) 150 mg tablet Take 1 tablet by mouth one time a week for 4 doses. - rosuvastatin (CRESTOR) 20 mg tablet Take 1 tablet by mouth daily at bedtime. - Insulin Volborg, Disposable, (PEN NEEDLE) 29 gauge x 1/2 One needle three times daily. Dx: 250.02 Insulin: yes - blood sugar diagnostic (TRUE METRIX GLUCOSE TEST STRIP) test strip Test 3 times daily DX:250.02 Insulin: Yes - gabapentin (NEURONTIN) 600 mg tablet Take 1 tablet by mouth two times a day for 90 days. - insulin glargine (LANTUS SOLOSTAR U-100 INSULIN) 100 unit/mL (3 mL) Inject 18 units subcutaneously at bedtime - cyanocobalamin (VITAMIN B-12) 1,000 mcg tab Take one tablet every other day Dx: pernicious anemia - allopurinol (ZYLOPRIM) 100 mg tablet Take 1 tablet by mouth two times a day. - lisinopril 2.5 mg tablet Take 1 tablet by mouth once daily. - pramipexole (MIRAPEX) 0.25 mg tablet Take 1 tablet by mouth daily at bedtime. - Lancets lancets Pt requests Truedraw lancets. Test blood sugar(s) 1 times daily. Dx: Other DM Code 250.02 Insulin: Yes - Lancets (ACCU-CHEK SOFTCLIX LANCETS) lancets Use Three times daily to check blood sugar - Acetaminophen 500 mg cap Take 2 capsules by mouth two times a day as needed for pain. Reports will utilize 1 500mg tab 1-2 times in between the 1000 mg doses - Miscellaneous Medical Supply (BLOOD PRESSURE CUFF) 1 Each once daily. - ondansetron (ZOFRAN) 4 mg tablet Take 4 mg by mouth every 8 hours as needed for nausea/vomiting. - meclizine (ANTIVERT) 25 mg tab Take 25 mg by mouth three times a day. - cephALEXin (KEFLEX) 500 mg capsule Take 500 mg by mouth three times a day. - ammonium lactate (LAC-HYDRIN) 12 % lotion Apply 1 application to affected area as needed for Dry Skin. - melatonin 3 mg Take by mouth daily at bedtime. - COMPOUNDED PRESCRIPTION Cock up wrist splint, right Medium. To be worn nightly to prevent carpal tunnel symptoms. Dx: carpal tunnel right - Blood-Glucose Meter, Drum-type (ACCU-CHEK COMPACT PLUS CARE) Misc Kit 1 Each. Accu-Check Compact Plus Meter Diagnosis: Diabetes Mellitus - ASPIRIN 81 MG TAB Take one (1) tablet daily . No current facility-administered medications for this visit. Physical Exam Vitals: There were no vitals taken for this visit. Psych: Pleasant, good affect and mood General Appearance: Well appearing, alert, in no acute distress, well-hydrated, well nourished.. Skin: Skin color, texture, turgor normal, no suspicious rashes or lesions. Peripheral Pulses: Normal. Neurologic: Gait normal. Reflexes normal and symmetric. Sensation grossly intact.. Lymph Nodes: No cervical lymphadenopathy, No supraclavicular lymphadenopathy, No axillary lymphadenopathy., and No inguinal lymphadenopathy.. Respiratory: No recent pulmonary infection, hemoptysis, chronic cough, or shortness of breath at rest Rheumatologic: Joint deformities: left hand numbness Right Hand Exam Right hand exam is normal. Tenderness The patient is experienci (more content not included)... Normal [facility] metabolic 2000 panelon 11-20-2024 Albumin [Mass/Vol] 4.5 g/dL 3.9 - 4.9 g/dL [facility] ALP [Catalytic activity/Vol] 82 U/L 34 - 123 U/L [facility] ALT With P-5'-P [Catalytic activity/Vol] 12 U/L 7 - 38 U/L [facility] Anion gap [Moles/Vol] 10 mmol/L 8 - 15 mmol/L [facility] AST With P-5'-P [Catalytic activity/Vol] 23 U/L 13 - 35 U/L [facility] Bilirubin [Mass/Vol] 0.4 mg/dL 0.2 - 1 .3 mg/dL [facility] Calcium [Mass/Vol] 10 mg/dL 8.5 - 10. 2 mg/dL [facility] Chloride [Moles/Vol] 101 mmol/L 98 - 10 7 mmol/L [facility] CO2 [Moles/Vol] 27 mmol/L 22 - 30 mmol/L [facility] Creatinine [Mass/Vol] 1.19 mg/dL High 0.58 - 0.96 mg/dL [facility] GFR/1.73 sq M.predicted among non-blacks MDRD (S/P/Bld) [Vol rate/Area] 44 mL/min/{1.73_m2} Low - PINF [facility] Comment on above: Estimated Glomerular Filtration Rate (eGFR) is calculated using the 2020 CKD-EPI creatinine equation. This equation utilizes serum creatinine, sex, and age as parameters. The creatinine assay has traceable calibration to isotope dilution-mass spectrometry. Refer to KDIGO guidelines for clinical interpretation. In patients with unstable renal function, e.g. those with acute kidney injury, the eGFR may not accurately reflect actual GFR. Glucose [Mass/Vol] 100 mg/dL High 74 - 99 mg/dL [facility] Comment on above: The [place] Diab[employer] Association (ADA) provides guidance for cutoff values for fasting glucose and random glucose. The ADA defines fasting as no caloric intake for at least 8 hours. Fasting plasma glucose results between 100 to 125 mg/dL indicate increased risk for diabetes (prediabetes). Fasting plasma glucose results greater than or equal to 126 mg/dL meet the criteria for diagnosis of diabetes. In the absence of unequivocal hyperglycemia, results should be confirmed by repeat testing. In a patient with classic symptoms of hyperglycemia or hyperglycemic crisis, random plasma glucose results greater than or equal to 200 mg/dL meet the criteria for diagnosis of diabetes. Reference: Standards of Medical Care in Diabetes 2016, [place] [employer]. Diabetes Care. 2016.39(Suppl 1). Potassium [Moles/Vol] 4 mmol/L 3.7 - 5.1 mmol/L [facility] Protein [Mass/Vol] 7.2 g/dL 6.3 - 8.0 g/dL [facility] Sodium [Moles/Vol] 138 mmol/L 136 - 144 mmol/L [facility] Urea nitrogen [Mass/Vol] 25 mg/dL High 7 - 21 mg/dL [facility] HbA1c (Bld)on 11-20-2024 Average glucose Estimated from glycated hemoglobin (Bld) [Mass/Vol] 206 mg/dL [facility] Comment on above: eAG: (Estimated aver age glucose) is a calculated value from HgbA1c and is community health program representative of the average blood glucose level in the last 2-3 month period. HbA1c (Bld) [Mass fraction] 8.8 % High 4.3 - 5.6 % [facility] Comment on above: [place] Diabetes As sociation guidelines indicate that patients with HgbA1c in the range 5.7-6.4% are at increased risk for development of diabetes, and intervention by lifestyle modification may be beneficial. HgbA1c greater or equal to 6.5% is considered diagnostic of diabetes. Interpretation and review of laboratory results Abnormal [facility] LIPID PANEL, NONFASTINGon Cholesterol [Mass/Vol] 148 mg/dL NINF - 200 mg/dL [facility] Comment on above: <200 mg/dL, Desirabl e 200-239 mg/dL, Borderline high >239 mg/dL, High HDL Cholesterol, Nonfasting 56 mg/dL 39 - PINF mg/dL [facility] Comment on above: 40-59 mg/dL, Accepta ble >59 mg/dL, High: Negative risk factor for coronary heart disease <40 mg/dL, Low: Positive risk factor for coronary heart disease LDL Cholesterol, Nonfasting 61 mg/dL NINF - 100 mg/dL [facility] Comment on above: <100 mg/dL, Optimal 100-129 mg/dL, Near optimal/above optimal 130-159 mg/dL, Borderline high 160-189 mg/dL, High >189 mg/dL, Very high Secondary prevention optimal LDL Cholesterol levels are recommended to be < 70 mg/dL LDL/HDL Ratio, Nonfasting 1.09 mg/dL NINF - 2.54 mg/dL [facility] Comment on above: Reference: 1. National Cholesterol Education Program ATP III Guideline At-A-Glance Quick Desk Reference: National Heart, Lung, and Blood [place]. National Institutes of Health. 2001: NIH Publication No. 01-3305. 2. An International Atherosclerosis Society position paper: global recommendations for the management of dyslipidemia: executive summary, Atherosclerosis. 2014: 232(2):410-413. Non HDL Cholesterol, Nonfasting 92 mg/dL NINF - 130 mg/dL [facility] Comment on above: <130 mg/dL, Optimal 130-159 mg/dL, Near optimal/above optimal 160-189 mg/dL, Borderline high 190-219 mg/dL, High >219 mg/dL, Very high Secondary prevention optimal non HDL Cholesterol levels are recommended to be <100 mg/dL Total Chol/HDL Ratio, Nonfasting 2.64 mg/dL NINF - 5.10 mg/dL [facility] Triglycerides, Nonfasting 155 mg/dL High NINF - 150 mg/dL [facility] Comment on above: <150 mg/dL, Normal 150-199 mg/dL, Borderline high 200-499 mg/dL, High >499 mg/dL, Very high VLDL Cholesterol, Nonfasting 31 mg/dL High NINF - 30 mg/dL [facility] No Panel Informationon 11-20 Interpretation and review of laboratory results Abnormal [facility] CNOVon 11-19-2024 CNOV Office Visit (FAMPWS ) CHARLETTE FARMER ([id number]) 1935 F Date Time Provider Department 11/19/24 1:00 PM MARIBEL FAYPWS During your visit today, we recorded the following information about you: Pulse Respiration Blood pressure Weight 73/minute 16/minute 102/58 71.4 kg Maribel Fay MD 11/20/2024 7:54 AM Signed Chief Complaint Patient presents with: Follow Up: 3 month HPI Charlette Farmer is a 89 year old female who presents here today for Above Complaints.. DIABETES MELLITUS: Ms. Farmer was last seen 3 months ago. Since our last visit we have reduced her Lantus dosage to 18 units qhs due to hypoglycemic episodes in the 70's when fasting. she denies excessive thirst or increased frequency of urination, numbness, tingling or pain in extremities, new or unusual visual symptoms. Admits to blurred vision when reading. Follows a diabetic diet some of the time. States that sugars were high the first week [employer] opened because she was eating out more. She is compliant with medication(s) and is tolerating med(s) without any side effects. She reports checking her glucose on a 2-3 times per day schedule with sugars in the fasting 120-170 range typically with rare readings in the low 200's. Before bed, readings have been in the 200-357 with most reading around 250 in the last couple of weeks. Patient's last HgA1C was Hemoglobin A1C (%) Date Value 08/17/2024 8.8 05/15/2024 8.3 11/03/2021 7.9 07/22/2021 7.8 ) Last Ophthalmology exam was more than 1 year ago. Last Podiatry exam was within the past 12 months BP low today. Taking lisinopril and HCTZ as prescribed without side effects. Denies lightheadedness/dizzin ess, nausea, vomiting, diarrhea. Does not have BP cuff at home to monitor. Also notes that she has jock itch rash in left groin which she is treating with clotrimazole for about a month. Improving, but not resolved. Past medical history, appointments, medications, allergies reviewed. Previous Medical History PAST MEDICAL HISTORY Diagnosis Date Arthritis Benign neoplasm of colon tubular adenoma Carpal tunnel syndrome, right Chronic kidney disease, stage 3 (HCC) Diverticulitis 10/10/2020 Diverticulosis of colon (without mention of hemorrhage) Gout History of colonic polyps 2023, hyperplastic and tubular adenoma History of transfusion Internal hemorrhoids without mention of complication Lumbago Malignant neoplasm of corpus uteri, except isthmus (HCC) 1996 Uterine cancer Other and unspecified hyperlipidemia PAD (peripheral artery disease) (HCC) 2013 Mild LLE Pernicious anemia Restless leg syndrome Rotator cuff tendinitis left Trigger finger, right middle finger Seen by Dr. Burns 2015 Type II or unspecified type diabetes mellitus without mention of complication, uncontrolled Unspecified essential hypertension Previous Surgical History PAST SURGICAL HISTORY Procedure Laterality Date ABDOMINAL SURGERY HX APPENDECTOMY 1952 BACK SURGERY HX CHOLECYSTECTOMY 11/28/2011 COLONOSCOPY 07/12/2024 COLONOSCOPY FLX DX W/COLLJ SPEC WHEN PFRMD 2001 out of state sigmoidoscopy COLONOSCOPY FLX DX W/COLLJ SPEC WHEN PFRMD 10/22/2013 Colonoscopy COLONOSCOPY GEN ANES 01/07/2021 Dr. Phillips, Polyps. repeat in 3 years. COLONOSCOPY W/BIOPSY SINGLE/MULTIPLE 11/12/2008 DILATION AND CURETTAGE DXAND/THER NONOBSTETRIC 1965 Dilation AND curettage EGD 01/07/2021 EGD 07/12/2024 EYE SURGERY HX LAMINECTOMY W/O FFD 09/20 VERT SEG LUMBAR 1971 Laminectomy, lumbar, fusion PAST SURGICAL HISTORY OF Left 09/01/2017 Trigger finger release of left ringer finger REVISE MEDIAN N/CARPAL TUNNEL SURG Right 05/31/2023 TONSILLECTOMY HX TUBAL LIGATION HX VAGINAL HYSTERECTOMY VAGINAL HYSTERECTOMY UTERUS 250 GM/< 1997 Hysterectomy, vaginal Family History FAMILY HISTORY Problem Relation Age of Onset Cancer Mother breast, lung cancer was heavy smoker Diabetes Maternal Grandmother Diabetes Maternal Grandfather other (no siblings) Maternal Grandfather Patient Allergies ALLERGIES Allergen Reactions Lipitor [Atorvastat* Intolerance myalgia Simvastatin Intolerance myalgia Current Medications Current Outpatient Medications on File Prior to Visit Medication Sig insulin glargine (LANTUS SOLOSTAR U-100 INSULIN) 100 unit/mL (3 mL) Inject 18 units subcutaneously at bedtime insulin lispro (HUMALOG U-100 INSULIN) 100 unit/mL injection Inject 4 Units subcutaneously three times a day before meals. Insulin Volborg, Disposable, (PEN NEEDLE) 29 gauge x 1/2 One needle once daily. Dx: 250.02 Insulin: yes gabapentin (NEURONTIN) 600 mg tablet Take 1 tablet by mouth two times a day for 90 days. omeprazole (PRILOSEC) 20 mg capsule Take 1 capsule by mouth once daily. (Patient not taking: Reported on 10/19/2024) cyanocobalam (more content not included)... Normal [facility] metabolic 2000 panelon 11-19-2024 Albumin [Mass/Vol] 4.5 g/dL Normal 3.9-4.9 [facility] Comment on above: Order Comment: Speci men Type: BLOOD SPECIMEN Ordering Facility: [facility] Address: [address] [place] [address] Performed By: #### 2 4323-8, 2275- #### [facility] CLIA [id number] [address] [place] [address] [place] ALP [Catalytic activity/Vol] 82 U/L Normal 34-123 [facility] Comment on above: Order Comment: Speci men Type: BLOOD SPECIMEN Ordering Facility: [facility] Address: [address] [place] [address] Performed By: #### 2 4323-8, 2275-12 #### [facility] CLIA [id number] [address] [place] [address] [place] ALT With P-5'-P [Catalytic activity/Vol] 12 U/L Normal 7-38 [facility] Comment on above: Order Comment: Speci men Type: BLOOD SPECIMEN Ordering Facility: [facility] Address: [address] [place] [address] Performed By: #### 2 4323-8, 2275-12 #### [facility] CLIA [id number] [address] [place] [address] [place] Anion gap [Moles/Vol] 10 mmol/L Normal 8-15 [facility] Comment on above: Order Comment: Speci men Type: BLOOD SPECIMEN Ordering Facility: [facility] Address: [address] [place] [address] Performed By: #### 2 4323-8, 2275- #### [facility] CLIA [id number] [address] [place] [address] [place] AST With P-5'-P [Catalytic activity/Vol] 23 U/L Normal 13-35 [facility] Comment on above: Order Comment: Speci men Type: BLOOD SPECIMEN Ordering Facility: [facility] Address: [address] [place], [place] [address] Performed By: #### 2 4323-8, 2275-12 #### [facility] CLIA [id number] [address] [place] [address] [place] Bilirubin [Mass/Vol] 0.4 mg/dL Normal 0.2-1.3 [facility] Comment on above: Order Comment: Speci men Type: BLOOD SPECIMEN Ordering Facility: [facility] Address: [address] [place] [address] Performed By: #### 2 4323-8, 2275-12 #### [facility] CLIA [id number] [address] [place] [address] [place] Calcium [Mass/Vol] 10.0 mg/dL Normal 8.5-10.2 [facility] Comment on above: Order Comment: Speci men Type: BLOOD SPECIMEN Ordering Facility: [facility] Address: [address] [place] [address] Performed By: #### 2 4323-8, 2275-12 #### [facility] CLIA [id number] [address] [place] [address] [place] Chloride [Moles/Vol] 101 mmol/L Normal 98-107 [facility] Comment on above: Order Comment: Speci men Type: BLOOD SPECIMEN Ordering Facility: [facility] Address: [address] [place] [address] Performed By: #### 2 4323-8, 2275-12 #### [facility] CLIA [id number] [address] [place] [address] [place] CO2 [Moles/Vol] 27 mmol/L Normal 22-30 [facility] Comment on above: Order Comment: Speci men Type: BLOOD SPECIMEN Ordering Facility: [facility] Address: [address] [place], [place] [address] Performed By: #### 2 4323-8, 2275-4 #### [facility] CLIA [id number] [address] [place] [address] [place] Creatinine [Mass/Vol] 1.19 mg/dL High 0.58-0.96 [facility] Comment on above: Order Comment: Speci men Type: BLOOD SPECIMEN Ordering Facility: [facility] Address: [address] [place] [address] Performed By: #### 2 4323-8, 2275-4 #### [facility] CLIA [id number] [address] [place] [address] [place] Creatinine and Glomerular filtration rate.predicted panel (S/P/Bld) 44 mL/min/1.73m??? Low >=60 [facility] Comment on above: Order Comment: Romelia andres Type: BLOOD SPECIMEN Ordering Facility: [facility] Address: [address] [place] [address] Result Comment: [place] mated Glomerular Filtration Rate (eGFR) is calculated using the 2020 CKD-EPI creatinine equation. This equation utilizes serum creatinine, sex, and age as parameters. The creatinine assay has traceable calibration to isotope dilution-mass spectrometry. Refer to KDIGO guidelines for clinical interpretation. In patients with unstable renal function, e.g. those with acute kidney injury, the eGFR may not accurately reflect actual GFR. Performed By: #### 2 4323-8, 2275-4 #### [facility] CLIA [id number] [address] [place] [address] [place] Glucose [Mass/Vol] 100 mg/dL High 74-99 [facility] Comment on above: Order Comment: Speci men Type: BLOOD SPECIMEN Ordering Facility: [facility] Address: [address] [place] [address] Result Comment: The [place] Diabetes Association (ADA) provides guidance for cutoff values for fasting glucose and random glucose. The ADA defines fasting as no caloric intake for at least 8 hours. Fasting plasma glucose results between 100 to 125 mg/dL indicate increased risk for diabetes (prediabetes). Fasting plasma glucose results greater than or equal to 126 mg/dL meet the criteria for diagnosis of diabetes. In the absence of unequivocal hyperglycemia, results should be confirmed by repeat testing. In a patient with classic symptoms of hyperglycemia or hyperglycemic crisis, random plasma glucose results greater than or equal to 200 mg/dL meet the criteria for diagnosis of diabetes. Reference: Standards of Medical Care in Diabetes 2016, [place] Diabetes Association. Diabetes Care. 2016.39(Suppl 1). Performed By: #### 2 4323-8, 2275- #### [facility] CLIA [id number] [address] [place] [address] [place] Potassium [Moles/Vol] 4.0 mmol/L Normal 3.7-5.1 [facility] Comment on above: Order Comment: Speci men Type: BLOOD SPECIMEN Ordering Facility: [facility] Address: [address] [place] [address] Performed By: #### 2 4323-8, 2275-12 #### [facility] CLIA [id number] [address] [place] [address] [place] Protein [Mass/Vol] 7.2 g/dL Normal 6.3-8.0 [facility] Comment on above: Order Comment: Speci men Type: BLOOD SPECIMEN Ordering Facility: [facility] Address: [address] [place] [address] Performed By: #### 2 4323-8, 2275-12 #### [facility] CLIA [id number] [address] [place] [address] [place] Sodium [Moles/Vol] 138 mmol/L Normal 136-144 [facility] Comment on above: Order Comment: Speci men Type: BLOOD SPECIMEN Ordering Facility: [facility] Address: [address] [place] [address] Performed By: #### 2 4323-8, 2275-12 #### [facility] CLIA [id number] [address] [place] [address] [place] Urea nitrogen [Mass/Vol] 25 mg/dL High 7-21 [facility] Comment on above: Order Comment: Romelia andres Type: BLOOD SPECIMEN Ordering Facility: [facility] Address: [address] [place] [address] Performed By: #### 2 4323-8, 2276-4 #### [facility] CLIA [id number] [address] [place], [place] [address] [place] [address] [facility] [place] HbA1c (Bld)on 11-19-2024 Average glucose Estimated from glycated hemoglobin (Bld) [Mass/Vol] 206 mg/dL Normal [facility] Comment on above: Order Comment: Romelia andres Type: BLOOD SPECIMEN Ordering Facility: [facility] Address: [address] [place] [address] Result Comment: eAG: (Estimated average glucose) is a calculated value from HgbA1c and is community health program representative of the average blood glucose level in the last 2-3 month period. Performed By: #### 5 5454-3 #### [facility] CLIA [id number] [address] [place] [address] [place] [facility] HbA1c (Bld) [Mass fraction] 8.8 % High 4.3-5.6 [facility] Comment on above: Order Comment: Romelia andres Type: BLOOD SPECIMEN Ordering Facility: [facility] Address: [address] [place] [address] Result Comment: [place] Diabetes Association guidelines indicate that patients with HgbA1c in the range 5.7-6.4% are at increased risk for development of diabetes, and intervention by lifestyle modification may be beneficial. HgbA1c greater or equal to 6.5% is considered diagnostic of diabetes. Performed By: #### 5 5454-3 #### [facility] CLIA [id number] [address] [place] [address] [place] LIPID PANEL, NONFASTINGon Cholesterol [Mass/Vol] 148 mg/dL Normal <200 [facility] Comment on above: Order Comment: Romelia andres Type: BLOOD SPECIMEN Ordering Facility: [facility] Address: [address] [place] [address] Result Comment: <200 mg/dL, Desirable 200-239 mg/dL, Borderline high >239 mg/dL, High Performed By: #### 2 4323-8, 2275-4 #### [facility] CLIA [id number] [address] [facility] [place] [address] [place] HDL CHOLESTEROL, NF 56 mg/dL Normal >39 [facility] Comment on above: Order Comment: Romelia men Type: BLOOD SPECIMEN Ordering Facility: [facility] Address: [address] [place] [address] Result Comment: 40-5 9 mg/dL, Acceptable >59 mg/dL, High: Negative risk factor for coronary heart disease <40 mg/dL, Low: Positive risk factor for coronary heart disease Performed By: #### 2 4323-8, 2275- #### [facility] CLIA [id number] [address] [facility] [place] [address] [place] LDL CHOLESTEROL, NF 61 mg/dL Normal <100 [facility] Comment on above: Order Comment: Romelia men Type: BLOOD SPECIMEN Ordering Facility: [facility] Address: [address] [place] [address] Result Comment: <100 mg/dL, Optimal 100-129 mg/dL, Near optimal/above optimal 130-159 mg/dL, Borderline high 160-189 mg/dL, High >189 mg/dL, Very high Secondary prevention optimal LDL Cholesterol levels are recommended to be < 70 mg/dL Performed By: #### 2 4323-8, 2275- #### [facility] CLIA [id number] [address] [facility] [place] [address] [place] LDL/HDL RATIO, NF 1.09 mg/dL Normal <2.54 [facility] Comment on above: Order Comment: Romelia men Type: BLOOD SPECIMEN Ordering Facility: [facility] Address: [address] [place] [address] Result Comment: Refe alba: 1. National Cholesterol Education Program ATP III Guideline At-A-Glance Quick Desk Reference: National Heart, Lung, and Blood [place]. National Institutes of Health. 2001: NIH Publication No. 01-3305. 2. An International Atherosclerosis Society position paper: global recommendations for the management of dyslipidemia: executive summary, Atherosclerosis. 2014: 232(2):410-413. Performed By: #### 2 4323-8, 2275- #### [facility] CLIA [id number] [address] [facility] [place] [address] [place] NON HDL CHOL, NF 92 mg/dL Normal <130 [facility] Comment on above: Order Comment: Romelia andres Type: BLOOD SPECIMEN Ordering Facility: [facility] Address: [address] [place] [address] Result Comment: <130 mg/dL, Optimal 130-159 mg/dL, Near optimal/above optimal 160-189 mg/dL, Borderline high 190-219 mg/dL, High >219 mg/dL, Very high Secondary prevention optimal non HDL Cholesterol levels are recommended to be <100 mg/dL Performed By: #### 2 432-8, 2275-12 #### [facility] CLIA [id number] [address] [place], [place] [address] [place] [address] [place] T CHOL/HDL RATIO NF 2.64 mg/dL Normal <5.10 [facility] Comment on above: Order Comment: Romelia andres Type: BLOOD SPECIMEN Ordering Facility: [facility] Address: [address] [place] [address] Performed By: #### 2 4323-8, 2275-12 #### [facility] CLIA [id number] [address] [place], [place] [address] [place] [address] [place] TRIGLYCERIDES, NF 155 mg/dL High <150 [facility] Comment on above: Order Comment: Romelia andres Type: BLOOD SPECIMEN Ordering Facility: [facility] Address: [address] [place] [address] Result Comment: <150 mg/dL, Normal 150-199 mg/dL, Borderline high 200-499 mg/dL, High >499 mg/dL, Very high Performed By: #### 2 4322-8, 2276-4 #### [facility] CLIA [id number] [address] [place] [address] [place] VLDL CHOLESTEROL, NF 31 mg/dL High <30 [facility] Comment on above: Order Comment: Speci men Type: BLOOD SPECIMEN Ordering Facility: [facility] Address: [address] [place] [address] Performed By: #### 2 4323-8, 2276-4 #### [facility] CLIA [id number] [address] [place] CNPNon 10-24-2024 CNPN Telephone (LIBERTADWS) CHARLETTE FARMER ([id number]) 1935 F Date Time Provider Department 10/24/24 MARIBEL FAY During your visit today, we recorded the following information about you: Shelley Fontenot OCCA 10/24/2024 9:33 AM Signed ----- Message from Maribel Fay MD sent at 10/24/2024 7:34 AM EST ----- EMG shows severe carpal tunnel of the left wrist. Follow up with ortho as recommended. Shelley Fontenot OCCA 10/24/2024 9:38 AM Signed TC to patient who verbalized understanding of providers message below. Patient states she previously saw Dr. De Oliveira for her right hand carpal tunnel and would like to schedule to see her again. Please contact after 3 PM to assist with scheduling this appointment. Thank you. LUCIO Blanco Ida 10/25/2024 7:14 PM Signed Contacted patient and schedule with Savana De Oliveira in [place] 11-30-2024 Allergies As of Date: 10/24/2024 Noted Allergy Reaction LIPITOR (ATORVASTATIN) 07/19/2007 5 - Intolerance Comments: myalgia SIMVASTATIN 07/19/2007 5 - Intolerance Comments: myalgia Date Reviewed: 10/19/2024 Reviewed by: La Nena Lawson LPN - Fully Assessed Reason for Visit: Results [95] Cmt: EMG Prescriptions as of 10/25/2024 - insulin glargine (LANTUS SOLOSTAR U-100 INSULIN) 100 unit/mL (3 mL) Inject 18 units subcutaneously at bedtime - insulin lispro (HUMALOG U-100 INSULIN) 100 unit/mL injection Inject 4 Units subcutaneously three times a day before meals. - Insulin Volborg, Disposable, (PEN NEEDLE) 29 gauge x 1/2 One needle once daily. Dx: 250.02 Insulin: yes - gabapentin (NEURONTIN) 600 mg tablet Take 1 tablet by mouth two times a day for 90 days. - omeprazole (PRILOSEC) 20 mg capsule Take 1 capsule by mouth once daily. - cyanocobalamin (VITAMIN B-12) 1,000 mcg tab Take one tablet every other day Dx: pernicious anemia - allopurinol (ZYLOPRIM) 100 mg tablet Take 1 tablet by mouth two times a day. - hydroCHLOROthiazide 12.5 mg capsule Take 1 capsule by mouth once daily. - lisinopril 2.5 mg tablet Take 1 tablet by mouth once daily. - rosuvastatin (CRESTOR) 20 mg tablet Take 1 tablet by mouth daily at bedtime. - pramipexole (MIRAPEX) 0.25 mg tablet Take 1 tablet by mouth daily at bedtime. - blood sugar diagnostic (TRUE METRIX GLUCOSE TEST STRIP) test strip Test once daily DX:250.02 Insulin: Yes - Lancets lancets Pt requests Truedraw lancets. Test blood sugar(s) 1 times daily. Dx: Other DM Code 250.02 Insulin: Yes - Lancets (ACCU-CHEK SOFTCLIX LANCETS) lancets Use Three times daily to check blood sugar - Acetaminophen 500 mg cap Take 2 capsules by mouth two times a day as needed for pain. Reports will utilize 1 500mg tab 1-2 times in between the 1000 mg doses - Miscellaneous Medical Supply (BLOOD PRESSURE CUFF) 1 Each once daily. - ondansetron (ZOFRAN) 4 mg tablet Take 4 mg by mouth every 8 hours as needed for nausea/vomiting. - meclizine (ANTIVERT) 25 mg tab Take 25 mg by mouth three times a day. - cephALEXin (KEFLEX) 500 mg capsule Take 500 mg by mouth three times a day. - blood sugar diagnostic (BLOOD GLUCOSE TEST) test strip Test blood sugar(s) 2 times daily. Dx: Type 2 DM - Controlled E11.9 Insulin: Yes - ammonium lactate (LAC-HYDRIN) 12 % lotion Apply 1 application to affected area as needed for Dry Skin. - melatonin 3 mg Take by mouth daily at bedtime. - COMPOUNDED PRESCRIPTION Cock up wrist splint, right Medium. To be worn nightly to prevent carpal tunnel symptoms. Dx: carpal tunnel right - Blood-Glucose Meter, Drum-type (ACCU-CHEK COMPACT PLUS CARE) Misc Kit 1 Each. Accu-Check Compact Plus Meter Diagnosis: Diabetes Mellitus - ASPIRIN 81 MG TAB Take one (1) tablet daily . Problem List As Of Date 10/24/2024 Noted Resolved Other specified disorders of rotator cuff syndr*02/16/2006 10/18/2016 Malignant neoplasm of corpus uteri, except isth* 11/24/2015 HYPERLIPIDEMIA NEC/NOS [E78.5] 10/14/2015 Lumbago [M54.50] 06/15/2016 DIABETES MELLITUS TYPE II UNCONTR UNCOMPL [IMO0* 07/18/2014 HYPERTENSION NOS [I10] 10/14/2015 Special screening for malignant neoplasms, colo*11/12/2008 11/24/2015 Benign neoplasm of colon [D12.6] 11/12/2008 11/24/2015 Diverticulosis of colon [K57.30] 11/12/2008 Internal hemorrhoids without mention of complic*11/12/2008 10/14/2015 Tubular adenoma of rectum [D12.8] 02/25/2011 11/24/2015 Pernicious anemia [D51.0] 08/25/2012 Medicare annual wellness visit, initial [Z00.00]09/28/2013 11/24/2015 Stage 3b chronic kidney disease (HCC) [N18.32] 04/12/2014 PAD (peripheral artery disease) (HCC) [I73.9] 05/02/2014 Medicare annual wellness visit, subsequent [Z00*10/11/2014 11/24/2015 Diabetes mellitus with neuropathy (HCC) [E11.40]10/11/2014 11/24/2015 Essential hypertension [I10] 10/14/2015 Mixed hyperlipidemia [E78.2] 10/14/2015 DM type 2 with diabetic peripheral ne (more content not included)... Normal [facility] EMG(NEURO/NI)on 10-22-2024 Results can be seen in attached scanned documents. If you are a patient reviewing this test result, call the doctor who ordered the test with any questions. [facility] CNOVon 10-19-2024 CNOV Office Visit (PODIWS ) CHARLETTE FARMER ([id number]) 1935 F Date Time Provider Department 10/19/24 2:20 PM KAREL SANTIAGO PODIWS During your visit today, we recorded the following information about you: La Nena Lawson LPN 10/19/2024 2:18 PM Signed AMB ROOMING INTAKE FLOWSHEET DATA Patient presents with: Left Foot - Established Patient, Follow Up, Diabetic Foot Care Right Foot - Established Patient, Follow Up, Diabetic Foot Care ROSALINA Ramey Matthew 10/19/2024 2:08 PM Signed Diabetes Foot Care Instructions When you have diabetes, proper foot care is very important. Poor foot care may lead to amputation of a foot or leg. As a person with diabetes, you are more vulnerable to foot problems, because diabetes can damage your nerves and reduce blood flow to your feet. Here are some diabetes foot care tips to follow: Wash and Dry Your Feet Daily Use mild soaps Use warm water Pat your skin dry; do not rub. Thoroughly dry your feet. After washing, use lotion on your feet to prevent cracking. Do not put lotion between your toes. Examine Your Feet Each Day Check the tops and bottoms of your feet. Have someone else look at your feet if you cannot see them. Check for dry, cracked skin. Look for blisters, cuts, scratches, or other sores. Check for redness, increased warmth, or tenderness when touching any area of your feet. Check for ingrown toenails, corns, and calluses. If you get a blister or sore from your shoes, do not pop it. Apply a bandage and wear a different pair of shoes. Take Care of Your Toenails Cut toenails after bathing, when they are soft. Cut toenails straight across and smooth with a nail file. Avoid cutting into the corners of toes. Do not cut cuticles. If you have neuropathy (or decreased sensation in your feet) a clinical informatics director should always cut your toenails. Be Careful When Exercising Walk and exercise in comfortable shoes. Do not exercise when you have open sores on your feet. Protect Your Feet With Shoes and Socks Never go barefoot. Always protect your feet by wearing shoes or hard-soled slippers or footwear. Avoid shoes with high heels and pointed toes. Avoid shoes that expose your toes or heels (such as open-toed shoes or sandals). These types of shoes increase your risk for injury and potential infections. Try on new footwear with the type of socks you usually wear. Do not wear new shoes for more than an hour at a time. Change your socks daily. Look and feel inside your shoes before putting them on to make sure there are no foreign objects or rough areas. Avoid tight socks. Wear natural-fiber socks (cotton, wool, or a cotton-wool blend). Wear special shoes if your health care provider recommends them. Wear shoes/boots that will protect your feet from various weather conditions (cold, moisture, etc.). Make sure your shoes fit properly. If you have neuropathy (nerve damage), you may not notice that your shoes are too tight. Perform the footwear test described below. Footwear Test Use this simple test to see if your shoes fit correctly: Stand on a piece of paper. (Make sure you are standing and not sitting, because your foot changes shape when you stand.) Trace the outline of your foot. Trace the outline of your shoe. Compare the tracings: Is the shoe too narrow? Is your foot crammed into the shoe? The shoe should be at least 1/2 inch longer than your longest toe and as wide as your foot. Proper Shoe Choices The following types of shoes are best for people with diabetes Closed toes and heels Leather uppers without a seam inside At least 1/2 inch extra space at the end of your longest toe Inside of shoe should be soft with no rough areas Outer sole should be made of stiff material Shoes should be at least as wide as your feet Tips for Foot Care in Diabetes Don't wait to treat a minor foot problem if you have diabetes. Follow your health care provider's guidelines and first aid guidelines. Report foot injuries and infections to your health care provider immediately. Check water temperature with your elbow, not your foot. Do not use a heating pad on your feet. Do not cross your legs. Do not self-treat your corns, calluses, or other foot problems. Go to your health care provider or clinical informatics director to treat these conditions. Karel Santiago 10/19/2024 2:18 PM Signed Last saw pcp: 09/27/24 Subjective: Patient presents to clinic c/o painful toenails. They state that the nails are especially painful with shoe gear and pressure. Patient states that nails 1-5 b/l are painful. No other pedal complaints at this time. Patient states no change in medications or medical history since last visit. Objective: Patient presents to clinic ambulating in [facility] Vasc: DP and PT pulses are palpable bilateral. CFT is less than 5 seconds bilater (more content not included)... Normal [facility] [place] Lavonne 10-08-2024 [facility] Telephone (GENNARO) CHARLETTE FARMER ([id number]) 1935 F Date Time Provider Department 10/08/24 MARIBEL AFY During your visit today, we recorded the following information about you: Colette Gilman LPN 10/08/2024 9:12 AM Signed Pt calls and states the following: BLOOD SUGAR LOW (DM) SYMPTOMS: a little light headed ONSET: since the first of the year and maybe in August a little BLOOD GLUCOSE: This am 10-08-24 -70 blood sugar. Pt drank orange juice and ate a waffle with jam and took it again and it went down to 69. USUAL RANGE: 10-10-24 74 09-30-24 133 10-01-24 129 10-02-24 94 10-03-24 79 10-04-24 117 10-06-24 68 3 to 4 hours later went up to 90. Came up to 109 before bedtime 10-07-24 90 10-08-24 70 then ate and now 69 TYPE I OR 2: type 2 INSULIN: yes Lantus at night 20 units at night/ Humalog 4 units before each meal and at bedtime DIABETIC PILLS: no OTHER SYMPTOMS: a little light headed DENIES: fever, frequent urination, difficulty breathing, vomiting LOW BLOOD SUGAR GLUCOSE TREATMENT: orange juice, and other foods FOOD: breakfast ALONE: pt is alone today. Pt is resting and waiting to hear your recommendations. ROSALINA Steele Julie, APRN.VAMSHI 10/08/2024 9:19 AM Signed Did she reduce he Lantus to 20 units as recommended a couple of days ago? She should drink another 4 ounces of OJ and eat some toast with peanut butter and recheck blood sugar in 15 minutes. Has she been eating regular meals? Tosha Pelaez, MARIO.Duyen Davila LPN 10/08/2024 9:31 AM Signed Reviewed provider's message with patient. She stated she does 20 units of lantus when she goes to bed usually 11p-1a time frame. She usually gets up late in the mornings and reports she eats 2 regular meals a day around 1-2pm and then again at 7p, Advised patient to call once she gets the blood sugar reading as advised. She voiced understanding. ROSALINA Soares Stephanie, RN 10/08/2024 10:15 AM Signed Patient calls and states that blood sugar is currently 160. Tosha Pelaez APRN.CNP 10/08/2024 11:12 AM Signed She can decrease her Lantus to 18 units at bedtime. Update in 1-2 weeks with blood sugar readings sooner with readings less than 80. Tosha Pelaez APRN.Duyen Davila LPN 10/08/2024 11:49 AM Signed Phoned patient and reviewed message with her. Patient voiced understanding. Had patient repeat message back and she repeated correctly. 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 - Insulin Volborg, Disposable, (PEN NEEDLE) 29 gauge x 1/2 One needle once daily. Dx: 250.02 Insulin: yes - gabapentin (NEURONTIN) 600 mg tablet Take 1 tablet by mouth two times a day for 90 days. - omeprazole (PRILOSEC) 20 mg capsule Take 1 capsule by mouth once daily. - cyanocobalamin (VITAMIN B-12) 1,000 mcg tab Take one tablet every other day Dx: pernicious anemia - allopurinol (ZYLOPRIM) 100 mg tablet Take 1 tablet by mouth two times a day. - hydroCHLOROthiazide 12.5 mg capsule Take 1 capsule by mouth once daily. - lisinopril 2.5 mg tablet Take 1 tablet by mouth once daily. - rosuvastatin (CRESTOR) 20 mg tablet Take 1 tablet by mouth daily at bedtime. - pramipexole (MIRAPEX) 0.25 mg tablet Take 1 tablet by mouth daily at bedtime. - blood sugar diagnostic (TRUE METRIX GLUCOSE TEST STRIP) test strip Test once daily DX:250.02 Insulin: Yes - Lancets lancets Pt requests Truedraw lancets. Test blood sugar(s) 1 times daily. Dx: Other DM Code 250.02 Insulin: Yes - Lancets (ACCU-CHEK SOFTCLIX LANCETS) lancets Use Three times daily to check blood sugar - Acetaminophen 500 mg cap Take 2 capsules by mouth two times a day as needed for pain. Reports will utilize 1 500mg tab 1-2 times in between the 1000 mg doses - Miscellaneous Medical Supply (BLOOD PRESSURE CUFF) 1 Each once daily. - ondansetron (ZOFRAN) 4 mg tablet Take 4 mg by mouth every 8 hours as needed for nausea/vomiting. - meclizine (ANTIVERT) 25 mg tab Take 25 mg by mouth three times a day. - cephALEXin (KEFLEX) 500 mg capsule Take 500 mg by mouth three times a (more content not included)... [facility] CHARLETTE FARMER ([id number]) 1935 F Date Time Provider Department 10/05/24 MARIBEL FAY [facility] During your visit today, we recorded the following information about you: Cheryl Billy RN 10/05/2024 12:58 PM Signed Patient calls and states that she woke up at noon today. Patient took 4 units of Humalog and then she took her fasting blood sugar of 68. Patient reports that she drank 12 ounces of OJ and ate a piece of toast with Apricot jelly. Her blood sugar now after 45 minutes is 232. Please review and advise, BERNADETTE Chahal Christopher B, MD 10/05/2024 2:05 PM Signed The humalog would not effect her fasting sugar reading. That would be the Lantus. I instructed her at her last OV to reduce her lantus to 24 units. If she did this and her sugar was still 68, then I would have her cut her Lantus further to 20 units qhs. Kassandra Harrison LPN 10/06/2024 8:06 AM Addendum Telephone call placed to patient. Went over note below from provider. Patient voices understanding. States she did reduce her lantus to 24 so she will now reduce it to 20 units at HS. ROSALINA Baig Christopher B, MD 10/06/2024 8:22 AM Signed Reviewed. Call with update on sugars in 1-2 weeks or sooner with readings <80. Colette Gilman LPN 10/08/2024 9:01 AM Signed Notified. 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 - insulin lispro (HUMALOG U-100 INSULIN) 100 unit/mL injection Inject 4 Units subcutaneously three times a day before meals. - Insulin Volborg, Disposable, (PEN NEEDLE) 29 gauge x 1/2 One needle once daily. Dx: 250.02 Insulin: yes - gabapentin (NEURONTIN) 600 mg tablet Take 1 tablet by mouth two times a day for 90 days. - omeprazole (PRILOSEC) 20 mg capsule Take 1 capsule by mouth once daily. - cyanocobalamin (VITAMIN B-12) 1,000 mcg tab Take one tablet every other day Dx: pernicious anemia - allopurinol (ZYLOPRIM) 100 mg tablet Take 1 tablet by mouth two times a day. - hydroCHLOROthiazide 12.5 mg capsule Take 1 capsule by mouth once daily. - lisinopril 2.5 mg tablet Take 1 tablet by mouth once daily. - rosuvastatin (CRESTOR) 20 mg tablet Take 1 tablet by mouth daily at bedtime. - pramipexole (MIRAPEX) 0.25 mg tablet Take 1 tablet by mouth daily at bedtime. - blood sugar diagnostic (TRUE METRIX GLUCOSE TEST STRIP) test strip Test once daily DX:250.02 Insulin: Yes - Lancets lancets Pt requests Truedraw lancets. Test blood sugar(s) 1 times daily. Dx: Other DM Code 250.02 Insulin: Yes - Lancets (ACCU-CHEK SOFTCLIX LANCETS) lancets Use Three times daily to check blood sugar - Acetaminophen 500 mg cap Take 2 capsules by mouth two times a day as needed for pain. Reports will utilize 1 500mg tab 1-2 times in between the 1000 mg doses - Miscellaneous Medical Supply (BLOOD PRESSURE CUFF) 1 Each once daily. - ondansetron (ZOFRAN) 4 mg tablet Take 4 mg by mouth every 8 hours as needed for nausea/vomiting. - meclizine (ANTIVERT) 25 mg tab Take 25 mg by mouth three times a day. - cephALEXin (KEFLEX) 500 mg capsule Take 500 mg by mouth three times a day. - blood sugar diagnostic (BLOOD GLUCOSE TEST) test strip Test blood sugar(s) 2 times daily. Dx: Type 2 DM - Controlled E11.9 Insulin: Yes - ammonium lactate (LAC-HYDRIN) 12 % lotion Apply 1 application to affected area as needed for Dry Skin. - melatonin 3 mg Take by mouth daily at bedtime. - COMPOUNDED PRESCRIPTION Cock up wrist splint, right Medium. To be worn nightly to prevent carpal tunnel symptoms. Dx: carpal tunnel right - Cholecalciferol, Vitamin D3, 1,000 unit cap Take 1 capsule by mouth once daily. - Blood-Glucose Meter, Drum-type (ACCU-CHEK COMPACT PLUS CARE) Misc Kit 1 Each. Accu-Check Compact Plus Meter Diagnosis: Diabetes Mellitus - ASPIRIN 81 MG TAB Take one (1) tablet daily . Problem List As Of Date 10/05/2024 Noted Resolved Other specified disorders of rotator cuff syndr*02/16/2006 10/18/2016 Malignant neoplasm of corpus uteri, except isth* 11/24/2015 HYPERLIPIDEMIA NEC/NOS [E78.5] 10/14/2015 Lumbago [M54.50] 06/15/2016 DIABETES MELLITUS TYPE II UNCONTR UNCOMPL [IMO0* 07/18/2014 HYPERT (more content not included)... Normal [facility] CNOVon 09-27-2024 CNOV Office Visit (FAMPWS ) MARLENYCHARLETTE GONG ([id number]) 1935 F Date Time Provider Department 09/27/24 10:20 AM MARIBEL FAY [facility] During your visit today, we recorded the following information about you: Pulse Respiration Blood pressure Weight 73/minute 16/minute 106/58 71.8 kg Maribel Fay MD 10/03/2024 8:15 AM Signed Chief Complaint Patient presents with: Follow Up: Laeft wrist and Blood sugars-Patient continued the Lantus at 28 units because she wasn't sure which insulin and amount you adjusted. HPI Charletteubaldo Farmer is a 89 year old female who presents here today for Above Complaints. Patient has been in good health without recent hospitalizations, ER visits, or falls. Patient notes she did not reduce her Lantus to 26 units from 28 units after her last OV and she did not start the mealtime insulin. Checking sugars fasting and before bed with continued low fasting readings between 67-77. Gets shaking and feels not herself with low reading. After eating breakfast sugars improve above 80. Readings before bed in the 150-333 range with most readings in the mid 200's. States she has been compliant with low carb diet. Symptoms of numbness and tingling in her left hand has not changed since last OV. Has appointment for EMG on 10/08. Has not scheduled with ortho yet. Wearing her splint at night and does stretch occasionally. Has not been icing. Past medical history, appointments, medications, allergies reviewed. Previous Medical History PAST MEDICAL HISTORY Diagnosis Date Arthritis Benign neoplasm of colon tubular adenoma Carpal tunnel syndrome, right Chronic kidney disease, stage 3 (HCC) Diverticulitis 10/10/2020 Diverticulosis of colon (without mention of hemorrhage) Gout History of colonic polyps 2023, hyperplastic and tubular adenoma History of transfusion Internal hemorrhoids without mention of complication Lumbago Malignant neoplasm of corpus uteri, except isthmus (HCC) 1996 Uterine cancer Other and unspecified hyperlipidemia PAD (peripheral artery disease) ([facility]) 2013 Mild LLE Pernicious anemia Restless leg syndrome Rotator cuff tendinitis left Trigger finger, right middle finger Seen by Dr. Burns 2015 Type II or unspecified type diabetes mellitus without mention of complication, uncontrolled Unspecified essential hypertension Previous Surgical History PAST SURGICAL HISTORY Procedure Laterality Date ABDOMINAL SURGERY HX APPENDECTOMY 1952 BACK SURGERY HX CHOLECYSTECTOMY 11/28/2011 COLONOSCOPY 07/12/2024 COLONOSCOPY FLX DX W/COLLJ SPEC WHEN PFRMD 2001 out of state sigmoidoscopy COLONOSCOPY FLX DX W/COLLJ SPEC WHEN PFRMD 10/22/2013 Colonoscopy COLONOSCOPY GEN ANES 01/07/2021 Dr. Phillips, Polyps. repeat in 3 years. COLONOSCOPY W/BIOPSY SINGLE/MULTIPLE 11/12/2008 DILATION AND CURETTAGE DXAND/THER NONOBSTETRIC 1965 Dilation AND curettage EGD 01/07/2021 EGD 07/12/2024 EYE SURGERY HX LAMINECTOMY W/O FFD / VERT SEG LUMBAR 1970 Laminectomy, lumbar, fusion PAST SURGICAL HISTORY OF Left 09/01/2017 Trigger finger release of left ringer finger REVISE MEDIAN N/CARPAL TUNNEL SURG Right 05/31/2023 TONSILLECTOMY HX TUBAL LIGATION HX VAGINAL HYSTERECTOMY VAGINAL HYSTERECTOMY UTERUS 250 GM/< 1996 Hysterectomy, vaginal Family History FAMILY HISTORY Problem Relation Age of Onset Cancer Mother breast, lung cancer was heavy smoker Diabetes Maternal Grandmother Diabetes Maternal Grandfather other (no siblings) Maternal Grandfather Patient Allergies ALLERGIES Allergen Reactions Lipitor [Atorvastat* Intolerance myalgia Simvastatin Intolerance myalgia Current Medications Current Outpatient Medications on File Prior to Visit Medication Sig insulin lispro (HUMALOG U-100 INSULIN) 100 unit/mL injection Inject 4 Units subcutaneously three times a day before meals. insulin glargine (LANTUS SOLOSTAR U-100 INSULIN) 100 unit/mL (3 mL) Inject 26 Units subcutaneously daily at bedtime. Insulin Volborg, Disposable, (PEN NEEDLE) 29 gauge x 1/2 One needle once daily. Dx: 250.02 Insulin: yes gabapentin (NEURONTIN) 600 mg tablet Take 1 tablet by mouth two times a day for 90 days. omeprazole (PRILOSEC) 20 mg capsule Take 1 capsule by mouth once daily. cyanocobalamin (VITAMIN B-12) 1,000 mcg tab Take one tablet every other day Dx: pernicious anemia allopurinol (ZYLOPRIM) 100 mg tablet Take 1 tablet by mouth two times a day. hydroCHLOROthiazide 12.5 mg capsule Take 1 capsule by mouth once daily. lisinopril 2.5 mg tablet Take 1 tablet by mouth once daily. rosuvastatin (CRESTOR) 20 mg tablet Take 1 tablet by mouth daily at bedtime. pramipexole (MIRAPEX) 0.25 mg tablet Take 1 tablet by mouth daily at bedtime. blood sugar diagnostic (TRUE METRIX GLUCOSE TEST STRIP) test strip Test once daily DX:250.02 Insul (more content not included)... Normal [facility] 09-17-2024 [facility] Telephone (DONNY) CHARLETTE FARMER ([id number]) 1935 F Date Time Provider Department 09/17/24 LEE FERNANDEZ During your visit today, we recorded the following information about you: Cris Bagley 09/17/2024 8:51 AM Signed 10/08 EMG appt needs rescheduled. 1st attempt, LVM on pts phone and daughter (PAULIE), Cristobal's home phone. Allergies As of Date: 09/17/2024 Noted Allergy Reaction LIPITOR (ATORVASTATIN) 07/19/2007 5 - Intolerance Comments: myalgia SIMVASTATIN 07/19/2007 5 - Intolerance Comments: myalgia Date Reviewed: 09/06/2024 Reviewed by: Alessandra Butcher LPN - Fully Assessed Reason for Visit: Appointment [186] Prescriptions as of 09/17/2024 - insulin lispro (HUMALOG U-100 INSULIN) 100 unit/mL injection Inject 4 Units subcutaneously three times a day before meals. - insulin glargine (LANTUS SOLOSTAR U-100 INSULIN) 100 unit/mL (3 mL) Inject 26 Units subcutaneously daily at bedtime. - Insulin Volborg, Disposable, (PEN NEEDLE) 29 gauge x 1/2 One needle once daily. Dx: 250.02 Insulin: yes - gabapentin (NEURONTIN) 600 mg tablet Take 1 tablet by mouth two times a day for 90 days. - omeprazole (PRILOSEC) 20 mg capsule Take 1 capsule by mouth once daily. - cyanocobalamin (VITAMIN B-12) 1,000 mcg tab Take one tablet every other day Dx: pernicious anemia - allopurinol (ZYLOPRIM) 100 mg tablet Take 1 tablet by mouth two times a day. - hydroCHLOROthiazide 12.5 mg capsule Take 1 capsule by mouth once daily. - lisinopril 2.5 mg tablet Take 1 tablet by mouth once daily. - rosuvastatin (CRESTOR) 20 mg tablet Take 1 tablet by mouth daily at bedtime. - pramipexole (MIRAPEX) 0.25 mg tablet Take 1 tablet by mouth daily at bedtime. - blood sugar diagnostic (TRUE METRIX GLUCOSE TEST STRIP) test strip Test once daily DX:250.02 Insulin: Yes - Lancets lancets Pt requests Truedraw lancets. Test blood sugar(s) 1 times daily. Dx: Other DM Code 250.02 Insulin: Yes - Lancets (ACCU-CHEK SOFTCLIX LANCETS) lancets Use Three times daily to check blood sugar - Acetaminophen 500 mg cap Take 2 capsules by mouth two times a day as needed for pain. Reports will utilize 1 500mg tab 1-2 times in between the 1000 mg doses - Miscellaneous Medical Supply (BLOOD PRESSURE CUFF) 1 Each once daily. - ondansetron (ZOFRAN) 4 mg tablet Take 4 mg by mouth every 8 hours as needed for nausea/vomiting. - meclizine (ANTIVERT) 25 mg tab Take 25 mg by mouth three times a day. - cephALEXin (KEFLEX) 500 mg capsule Take 500 mg by mouth three times a day. - blood sugar diagnostic (BLOOD GLUCOSE TEST) test strip Test blood sugar(s) 2 times daily. Dx: Type 2 DM - Controlled E11.9 Insulin: Yes - ammonium lactate (LAC-HYDRIN) 12 % lotion Apply 1 application to affected area as needed for Dry Skin. - melatonin 3 mg Take by mouth daily at bedtime. - COMPOUNDED PRESCRIPTION Cock up wrist splint, right Medium. To be worn nightly to prevent carpal tunnel symptoms. Dx: carpal tunnel right - Cholecalciferol, Vitamin D3, 1,000 unit cap Take 1 capsule by mouth once daily. - Blood-Glucose Meter, Drum-type (ACCU-CHEK COMPACT PLUS CARE) Misc Kit 1 Each. Accu-Check Compact Plus Meter Diagnosis: Diabetes Mellitus - ASPIRIN 81 MG TAB Take one (1) tablet daily . Problem List As Of Date 09/17/2024 Noted Resolved Other specified disorders of rotator cuff syndr*02/16/2006 10/18/2016 Malignant neoplasm of corpus uteri, except isth* 11/24/2015 HYPERLIPIDEMIA NEC/NOS [E78.5] 10/14/2015 Lumbago [M54.50] 06/15/2016 DIABETES MELLITUS TYPE II UNCONTR UNCOMPL [IMO0* 07/18/2014 HYPERTENSION NOS [I10] 10/14/2015 Special screening for malignant neoplasms, colo*11/12/2008 11/24/2015 Benign neoplasm of colon [D12.6] 11/12/2008 11/24/2015 Diverticulosis of colon [K57.30] 11/12/2008 Internal hemorrhoids without mention of complic*11/12/2008 10/14/2015 Tubular adenoma of rectum [D12.8] 02/25/2011 11/24/2015 Pernicious anemia [D51.0] 08/25/2012 Medicare annual wellness visit, initial [Z00.00]09/28/2013 11/24/2015 Stage 3b chronic kidney disease (HCC) [N18.32] 04/12/2014 PAD (peripheral artery disease) (HCC) [I73.9] 05/02/2014 Medicare annual wellness visit, subsequent [Z00*10/11/2014 11/24/2015 Diabetes mellitus with neuropathy (HCC) [E11.40]10/11/2014 11/24/2015 Essential hypertension [I10] 10/14/2015 Mixed hyperlipidemia [E78.2] 10/14/2015 DM type 2 with diabetic peripheral neuropathy (*11/12/2015 Trigger middle finger of right hand [M65.331] 11/20/2015 Trigger finger, left ring finger [M65.342] 08/25/2017 Restless leg syndrome [G25.81] Type 2 diabetes mellitus with diabetic chronic *08/15/2023 Type 2 diabetes mellitus with diabetic peripher*11/05/2022 Carpal tunnel syndrome, right [G56.01] 11/09/2022 Stage 4 chronic kidney disease (HCC) [N18.4] 09/08/2023 Personal history of malignant neoplasm of cervi* (more content not included)... Normal [facility] CNOVon 09-06-2024 CNOV Office Visit (FAMPWS ) CHARLETTE FARMER ([id number]) 1935 F Date Time Provider Department 09/06/24 10:40 AM MARIBEL FAY [facility] During your visit today, we recorded the following information about you: Pulse Respiration Blood pressure Weight 73/minute 14/minute 112/60 70.8 kg Height 1.549 m Maribel Fay MD 09/06/2024 11:59 AM Signed Chief Complaint Patient presents with: Follow Up: blood sugars and left hand issues, balance issues This AM 128 blood sugar and 1 week ago had a low of 77 HPI Charlette Farmer is a 89 year old female who presents here today for above complaints. Patients dose of Lantus increased from 24 to 28 units after OV 2-3 weeks ago when A1c was high at 8.8. Patient wanted to schedule OV instead of calling with home readings. Since increasing her dosage, she has had 2 low sugars into the 60s and 70s with symptoms of shaking and sweating. Improved with orange juice. Other fasting readings running 98-152 with typical readings <130. Before bed, sugars have been higher in the 200-280s. States she has been eating more jose cruz cookies and not been complaint with her diet. Also complaining today of numbness and tingling in her left 1-3rd fingers which started several months ago. Has not been able to aldo with this. Denies injury, fever/chills, pain, erythema, bruising. Notes that she had a fall on Tuesday when getting out of a chair at [place]. Did not hit her head or have LOC. No joint pain or swelling from this fall. Using cane for ambulation mostly. Has walker at home as well. Past medical history, appointments, medications, allergies reviewed. Previous Medical History PAST MEDICAL HISTORY Diagnosis Date Arthritis Benign neoplasm of colon tubular adenoma Carpal tunnel syndrome, right Chronic kidney disease, stage 3 (HCC) Diverticulitis 10/10/2020 Diverticulosis of colon (without mention of hemorrhage) Gout History of colonic polyps 2023, hyperplastic and tubular adenoma History of transfusion Internal hemorrhoids without mention of complication Lumbago Malignant neoplasm of corpus uteri, except isthmus (HCC) 1996 Uterine cancer Other and unspecified hyperlipidemia PAD (peripheral artery disease) (HCC) 2013 Mild LLE Pernicious anemia Restless leg syndrome Rotator cuff tendinitis left Trigger finger, right middle finger Seen by Dr. Burns 2015 Type II or unspecified type diabetes mellitus without mention of complication, uncontrolled Unspecified essential hypertension Previous Surgical History PAST SURGICAL HISTORY Procedure Laterality Date ABDOMINAL SURGERY HX APPENDECTOMY 1952 BACK SURGERY HX CHOLECYSTECTOMY 11/28/2011 COLONOSCOPY 07/12/2024 COLONOSCOPY FLX DX W/COLLJ SPEC WHEN PFRMD 2001 out of state sigmoidoscopy COLONOSCOPY FLX DX W/COLLJ SPEC WHEN PFRMD 10/22/2013 Colonoscopy COLONOSCOPY GEN ANES 01/07/2021 Dr. Phillips, Polyps. repeat in 3 years. COLONOSCOPY W/BIOPSY SINGLE/MULTIPLE 11/12/2008 DILATION AND CURETTAGE DXAND/THER NONOBSTETRIC 1965 Dilation AND curettage EGD 01/07/2021 EGD 07/12/2024 EYE SURGERY HX LAMINECTOMY W/O FFD 1/2 VERT SEG LUMBAR 1971 Laminectomy, lumbar, fusion PAST SURGICAL HISTORY OF Left 09/01/2017 Trigger finger release of left ringer finger REVISE MEDIAN N/CARPAL TUNNEL SURG Right 05/31/2023 TONSILLECTOMY HX TUBAL LIGATION HX VAGINAL HYSTERECTOMY VAGINAL HYSTERECTOMY UTERUS 250 GM/< 1997 Hysterectomy, vaginal Family History FAMILY HISTORY Problem Relation Age of Onset Cancer Mother breast, lung cancer was heavy smoker Diabetes Maternal Grandmother Diabetes Maternal Grandfather other (no siblings) Maternal Grandfather Patient Allergies ALLERGIES Allergen Reactions Lipitor [Atorvastat* Intolerance myalgia Simvastatin Intolerance myalgia Current Medications Current Outpatient Medications on File Prior to Visit Medication Sig Insulin Volborg, Disposable, (PEN NEEDLE) 29 gauge x 1/2 One needle once daily. Dx: 250.02 Insulin: yes insulin glargine (LANTUS SOLOSTAR U-100 INSULIN) 100 unit/mL (3 mL) Inject 28 Units subcutaneously daily at bedtime. gabapentin (NEURONTIN) 600 mg tablet Take 1 tablet by mouth two times a day for 90 days. omeprazole (PRILOSEC) 20 mg capsule Take 1 capsule by mouth once daily. cyanocobalamin (VITAMIN B-12) 1,000 mcg tab Take one tablet every other day Dx: pernicious anemia allopurinol (ZYLOPRIM) 100 mg tablet Take 1 tablet by mouth two times a day. hydroCHLOROthiazide 12.5 mg capsule Take 1 capsule by mouth once daily. lisinopril 2.5 mg tablet Take 1 tablet by mouth once daily. rosuvastatin (CRESTOR) 20 mg tablet Take 1 tablet by mouth daily at bedtime. pramipexole (MIRAPEX) 0.25 mg tablet Take 1 tablet by mouth daily at bedtime. blood sugar diagnostic (TRUE METRIX GLUCOSE TEST STRIP (more content not included)... Normal [facility] [place] 08-20-2024 [facility] Telephone ([facility] CHARLETTE FARMER ([id number]) 1935 F Date Time Provider Department 08/20/24 MARIBEL FAY During your visit today, we recorded the following information about you: Maribel Fay MD 08/20/2024 2:52 PM Signed Despite patients improved glucose readings at home, her A1c is actually up from last check to 8.8. I would recommend increasing her Lantus to 28 units at bedtime and have her check sugars fasting and before bed. Patient to call with updated sugar readings in 2-3 weeks, or sooner with any sugars <80. Patient can schedule OV instead of calling if she would like. Continue to work on low carb diet. CKD stable in stage III range. Recommend low sodium diet <2,000 mg per day, avoidance of NSAIDs, and increased water intake. Other labs normal. Duyen Bey LPN 08/20/2024 3:35 PM Signed Message left for patient to return call to review provider's message. ROSALINA Soares Beth, LPN 08/20/2024 3:57 PM Signed Patient returned call and went over part of results and notes and her call dropped. Called patient and left message to return call was only half way through all the results. Duyen Bey LPN 08/21/2024 11:45 AM Signed Message left for patient to return call to review message in it's entirety with her. ROSALINA Soares Sherrie, RN 08/22/2024 2:02 PM Signed Patient returned call and given provider's message below and patient verbalized understanding. Appt made for 09/06/[address] Fay. Edd Burnham RN Allergies As of Date: 08/20/2024 Noted Allergy Reaction LIPITOR (ATORVASTATIN) 07/19/2007 5 - Intolerance Comments: myalgia SIMVASTATIN 07/19/2007 5 - Intolerance Comments: myalgia Date Reviewed: 08/17/2024 Reviewed by: Duyen Bey LPN - Fully Assessed Reason for Visit: Results [95] Visit Diagnosis:DM type 2 with diabetic peripheral neuropathy (HCC) [E11.42] Order(s):insulin glargine (LANTUS SOLOSTAR U-100 INSULIN) 100 unit/mL (3 mL)Inject 28 Units subcutaneously daily at bedtime.Disp: 24 mLRfl: 1 Prescriptions as of 08/22/2024 - insulin glargine (LANTUS SOLOSTAR U-100 INSULIN) 100 unit/mL (3 mL) Inject 28 Units subcutaneously daily at bedtime. - gabapentin (NEURONTIN) 600 mg tablet Take 1 tablet by mouth two times a day for 90 days. - omeprazole (PRILOSEC) 20 mg capsule Take 1 capsule by mouth once daily. - cyanocobalamin (VITAMIN B-12) 1,000 mcg tab Take one tablet every other day Dx: pernicious anemia - allopurinol (ZYLOPRIM) 100 mg tablet Take 1 tablet by mouth two times a day. - hydroCHLOROthiazide 12.5 mg capsule Take 1 capsule by mouth once daily. - lisinopril 2.5 mg tablet Take 1 tablet by mouth once daily. - rosuvastatin (CRESTOR) 20 mg tablet Take 1 tablet by mouth daily at bedtime. - pramipexole (MIRAPEX) 0.25 mg tablet Take 1 tablet by mouth daily at bedtime. - blood sugar diagnostic (TRUE METRIX GLUCOSE TEST STRIP) test strip Test once daily DX:250.02 Insulin: Yes - Lancets lancets Pt requests Truedraw lancets. Test blood sugar(s) 1 times daily. Dx: Other DM Code 250.02 Insulin: Yes - Lancets (ACCU-CHEK SOFTCLIX LANCETS) lancets Use Three times daily to check blood sugar - Insulin Volborg, Disposable, (PEN NEEDLE) 29 gauge x 1/2 One needle once daily. Dx: 250.02 Insulin: yes - Acetaminophen 500 mg cap Take 2 capsules by mouth two times a day as needed for pain. Reports will utilize 1 500mg tab 1-2 times in between the 1000 mg doses - Miscellaneous Medical Supply (BLOOD PRESSURE CUFF) 1 Each once daily. - ondansetron (ZOFRAN) 4 mg tablet Take 4 mg by mouth every 8 hours as needed for nausea/vomiting. - meclizine (ANTIVERT) 25 mg tab Take 25 mg by mouth three times a day. - cephALEXin (KEFLEX) 500 mg capsule Take 500 mg by mouth three times a day. - blood sugar diagnostic (BLOOD GLUCOSE TEST) test strip Test blood sugar(s) 2 times daily. Dx: Type 2 DM - Controlled E11.9 Insulin: Yes - ammonium lactate (LAC-HYDRIN) 12 % lotion Apply 1 application to affected area as needed for Dry Skin. - melatonin 3 mg Take by mouth daily at bedtime. - COMPOUNDED PRESCRIPTION Cock up wrist splint, right Medium. To be worn nightly to prevent carpal tunnel symptoms. Dx: carpal tunnel right - Cholecalciferol, Vitamin D3, 1,000 unit cap Take 1 capsule by mouth once daily. - Blood-Glucose Meter, Drum-type (ACCU-CHEK COMPACT PLUS CARE) Misc Kit 1 Each. Accu-Check Compact Plus Meter Diagnosis: Diabetes Mellitus - ASPIRIN 81 MG TAB Take one (1) tablet daily . Problem List As Of Date 08/20/2024 Noted Resolved Other specified disorders of rotator cuff syndr*02/16/2006 10/18/2016 Malignant neoplasm of corpus uteri, except isth* 11/24/2015 HYPERLIPIDEMIA NEC/NOS [E78.5] 10/14/2015 Lumbago [M54.50] 06/15/2016 DIABETES MELLITUS TYPE II UNCONTR UNCOMPL [IMO0* 07/18/2014 HYP (more content not included)... Normal [facility] ALBUMIN/CREATININE RATIO, UR INEOrdered By: Gregg Stoddard on 08-18-2024 Albumin DL <= 20 mg/L (U) [Mass/Vol] 15.1 mg/L [facility] Albumin/Creatinine (U) [Mass ratio] 15 mg/g NINF - 30 mg/g [facility] Comment on above: Adult Male and Femal e Nephrotic Criteria: <30 mg/g is considered normal to mildly increased 30-300 mg/g is considered moderately increased >300 mg/g is considered severely increased KDIGO. (2013). KDIGO 2012 Clinical Practice Guideline for the Evaluation and Management of Chronic Kidney Disease. Official Journal of the International Society of Nephrology, 3(1), 1-150. Creatinine (U) [Mass/Vol] 103.2 mg/dL 20.0 - 300.0 mg/dL [facility] ALBUMIN/CREATININE RATIO, UR INEon 08-17-2024 Albumin DL <= 20 mg/L (U) [Mass/Vol] 15.1 mg/L Normal [facility] Comment on above: Order Comment: Speci men Type: BLOOD SPECIMEN Ordering Facility: [facility] Address: [address], [place] [address] Performed By: #### 2 4323-8, 2275-4 #### [facility] CLIA [id number] [address] [place] [address] [place] Albumin/Creatinine (U) [Mass ratio] 15 mg/g Normal <30 [facility] Comment on above: Order Comment: Speci men Type: BLOOD SPECIMEN Ordering Facility: [facility] Address: [address] [place] [address] Result Comment: Adul t Male and Female Nephrotic Criteria: <30 mg/g is considered normal to mildly increased 30-300 mg/g is considered moderately increased >300 mg/g is considered severely increased KDIGO. (2013). KDIGO 2012 Clinical Practice Guideline for the Evaluation and Management of Chronic Kidney Disease. Official Journal of the International Society of Nephrology, 3(1), 1-150. Performed By: #### 2 4323-8, 2275-4 #### [facility] CLIA [id number] [address] [place] [address] [place] Creatinine (U) [Mass/Vol] 103.2 mg/dL Normal 20.0-300.0 [facility] Comment on above: Order Comment: Speci men Type: BLOOD SPECIMEN Ordering Facility: [facility] Address: [address] [place] [address] Performed By: #### 2 4323-8, 2275-4 #### [facility] CLIA [id number] [address] [place] [address] [place] CBC W Auto Differential pane l (Bld)on 08-17-2024 Basophils (Bld) [#/Vol] 0.04 10*3/[facility]L [facility] Basophils/100 WBC (Bld) 0.7 % C [facility] Differential cell count method Nom (Bld) Auto [facility] Eosinophils (Bld) [#/Vol] 0.15 10*3/uL [facility] Eosinophils/100 WBC (Bld) 2.5 % [facility] Erythrocyte distribution width (RBC) [Ratio] 14.5 % 11.5 - 15.0 % [facility] Hematocrit (Bld) [Volume fraction] 35.5 % Low 36.0 - 46.0 % [facility] Hemoglobin (Bld) [Mass/Vol] 11.6 g/dL 11.5 - 15.5 g/dL [facility] Immature granulocytes (Bld) [#/Vol] NINF [facility] Immature granulocytes/100 WBC (Bld) 0.2 % [facility] Interpretation and review of laboratory results Abnormal [facility] Lymphocytes (Bld) [#/Vol] 1.61 10*3/uL [facility] Lymphocytes/100 WBC (Bld) 26.7 % [facility] MCH (RBC) [Entitic mass] 30.9 pg 26.0 - 34.0 pg [facility] MCHC (RBC) [Mass/Vol] 32.7 g/dL 30.5 - 36.0 g/dL [facility] MCV (RBC) [Entitic vol] 94.4 fL 80.0 - 100.0 fL [facility] Monocytes (Bld) [#/Vol] 0.49 10*3/uL [facility] Monocytes/100 WBC (Bld) 8.1 % C [facility] Neutrophils (Bld) [#/Vol] 3.73 10*3/uL [facility] Neutrophils/100 WBC (Bld) 61.8 % [facility] Nucleated RBC (Bld) [#/Vol] [facility] Nucleated RBC/100 WBC (Bld) [Ratio] 0.0 % /100 WBC [facility] Platelet mean volume (Bld) [Entitic vol] 10.6 fL 9.0 - 12.7 fL [facility] Platelets (Bld) [#/Vol] 207 10*3/uL [facility] RBC (Bld) [#/Vol] 3.76 10*6/uL Low 3.90 - 5.2 0 m/uL [facility] WBC (Bld) [#/Vol] 6.03 10*3/uL [facility] Basophils (Bld) [#/Vol] 0.04 10*3/uL Normal <0.11 [facility] Comment on above: Order Comment: Speci men Type: BLOOD SPECIMEN Ordering Facility: [facility] Address: [address] [place] [address] Performed By: #### 5 7021-8 #### [facility] CLIA [id number] [address] [place] [address] [place] Basophils/100 WBC (Bld) 0.7 % Normal C [facility] Comment on above: Order Comment: Speci men Type: BLOOD SPECIMEN Ordering Facility: [facility] Address: [address] [place] [address] Performed By: #### 5 7021-8 #### [facility] CLIA [id number] [address] [place] [address] [place] Differential cell count method Nom (Bld) Auto Normal [facility] Comment on above: Order Comment: Speci men Type: BLOOD SPECIMEN Ordering Facility: [facility] Address: [address] [place] [address] Performed By: #### 5 7021-8 #### [facility] CLIA [id number] [address] [place] [address] [place] Eosinophils (Bld) [#/Vol] 0.15 10*3/uL Normal <0.46 [facility] Comment on above: Order Comment: Speci men Type: BLOOD SPECIMEN Ordering Facility: [facility] Address: [address] [place] [address] Performed By: #### 5 7021-8 #### [facility] CLIA [id number] [address] [place] [address] [place] Eosinophils/100 WBC (Bld) 2.5 % Normal [facility] Comment on above: Order Comment: Speci men Type: BLOOD SPECIMEN Ordering Facility: [facility] Address: [address] [place] [address] Performed By: #### 5 7021-8 #### [facility] CLIA [id number] [address] [place] [address] [place] Erythrocyte distribution width (RBC) [Ratio] 14.5 % Normal 11.5-15.0 [facility] Comment on above: Order Comment: Speci men Type: BLOOD SPECIMEN Ordering Facility: [facility] Address: [address] [place] [address] Performed By: #### 5 7021-8 #### [facility] CLIA [id number] [address] [place] [address] [place] Hematocrit (Bld) [Volume fraction] 35.5 % Low 36.0-46.0 [facility] Comment on above: Order Comment: Speci men Type: BLOOD SPECIMEN Ordering Facility: [facility] Address: [address] [place] [address] Performed By: #### 5 7021-8 #### [facility] CLIA [id number] [address] [place] [address] [place] Hemoglobin (Bld) [Mass/Vol] 11.6 g/dL Normal 11.5-15.5 [facility] Comment on above: Order Comment: Speci men Type: BLOOD SPECIMEN Ordering Facility: [facility] Address: [address] [place] [address] Performed By: #### 5 7021-8 #### [facility] CLIA [id number] [address] [place] [address] [place] Immature granulocytes (Bld) [#/Vol] 10*3/uL Normal <0.10 [facility] Comment on above: Order Comment: Speci men Type: BLOOD SPECIMEN Ordering Facility: [facility] Address: [address] [place] [address] Performed By: #### 5 7021-8 #### [facility] CLIA [id number] [address] [place] [address] [place] Immature granulocytes/100 WBC (Bld) 0.2 % Normal [facility] Comment on above: Order Comment: Speci men Type: BLOOD SPECIMEN Ordering Facility: [facility] Address: [address] [place] [address] Performed By: #### 5 7021-8 #### [facility] CLIA [id number] [address] [place] [address] [place] Lymphocytes (Bld) [#/Vol] 1.61 10*3/uL Normal 1.00-4.00 [facility] Comment on above: Order Comment: Speci men Type: BLOOD SPECIMEN Ordering Facility: [facility] Address: [address] [place] [address] Performed By: #### 5 7021-8 #### [facility] CLIA [id number] [address] [place] [address] [place] Lymphocytes/100 WBC (Bld) 26.7 % Normal [facility] Comment on above: Order Comment: Speci men Type: BLOOD SPECIMEN Ordering Facility: [facility] Address: [address] [place] [address] Performed By: #### 5 7021-8 #### [facility] CLIA [id number] [address] [place] [address] [place] MCH (RBC) [Entitic mass] 30.9 pg Normal 26.0-34.0 [facility] Comment on above: Order Comment: Speci men Type: BLOOD SPECIMEN Ordering Facility: [facility] Address: [address] [place] [address] Performed By: #### 5 7021-8 #### [facility] CLIA [id number] [address] [place] [address] [place] MCHC (RBC) [Mass/Vol] 32.7 g/dL Normal 30.5-36.0 [facility] Comment on above: Order Comment: Speci men Type: BLOOD SPECIMEN Ordering Facility: [facility] Address: [address] [place] [address] Performed By: #### 5 7021-8 #### [facility] CLIA [id number] [address] [place] [address] [place] MCV (RBC) [Entitic vol] 94.4 fL Normal 80.0-100.0 C [facility] Comment on above: Order Comment: Speci men Type: BLOOD SPECIMEN Ordering Facility: [facility] Address: [address] [place] [address] Performed By: #### 5 7021-8 #### [facility] CLIA [id number] [address] [place] [address] [place] Monocytes (Bld) [#/Vol] 0.49 10*3/uL Normal <0.87 [facility] Comment on above: Order Comment: Speci men Type: BLOOD SPECIMEN Ordering Facility: [facility] Address: [address] [place] [address] Performed By: #### 5 7021-8 #### [facility] CLIA [id number] [address] [place] [address] [place] Monocytes/100 WBC (Bld) 8.1 % Normal C [facility] Comment on above: Order Comment: Speci men Type: BLOOD SPECIMEN Ordering Facility: [facility] Address: [address] [place] [address] Performed By: #### 5 7021-8 #### [facility] CLIA [id number] [address] [place] [address] [place] Neutrophils (Bld) [#/Vol] 3.73 10*3/uL Normal 1.45-7.50 [facility] Comment on above: Order Comment: Speci men Type: BLOOD SPECIMEN Ordering Facility: [facility] Address: [address] [place] [address] Performed By: #### 5 7021-8 #### [facility] CLIA [id number] [address] [place] [address] [place] Neutrophils/100 WBC (Bld) 61.8 % Normal [facility] Comment on above: Order Comment: Speci men Type: BLOOD SPECIMEN Ordering Facility: [facility] Address: [address] [place] [address] Performed By: #### 5 7021-8 #### [facility] CLIA [id number] [address] [place] [address] [place] Nucleated RBC (Bld) [#/Vol] 10*3/uL Normal <0.01 [facility] Comment on above: Order Comment: Speci men Type: BLOOD SPECIMEN Ordering Facility: [facility] Address: [address] [place] [address] Performed By: #### 5 7021-8 #### [facility] CLIA [id number] [address] [place] [address] [place] Nucleated RBC/100 WBC (Bld) [Ratio] 0.0 /100 WBC Normal [facility] Comment on above: Order Comment: Speci men Type: BLOOD SPECIMEN Ordering Facility: [facility] Address: [address] [place] [address] Performed By: #### 5 7021-8 #### [facility] CLIA [id number] [address] [place] [address] [place] Platelet mean volume (Bld) [Entitic vol] 10.6 fL Normal 9.0-12.7 [facility] Comment on above: Order Comment: Speci men Type: BLOOD SPECIMEN Ordering Facility: [facility] Address: [address] [place] [address] Performed By: #### 5 7021-8 #### [facility] CLIA [id number] [address] [place] [address] [place] Platelets (Bld) [#/Vol] 207 10*3/uL Normal 150-400 [facility] Comment on above: Order Comment: Speci men Type: BLOOD SPECIMEN Ordering Facility: [facility] Address: [address] [place] [address] Performed By: #### 5 7021-8 #### [facility] CLIA [id number] [address] [place] [address] [place] RBC (Bld) [#/Vol] 3.76 10*6/uL Low 3.90-5.20 [facility] Comment on above: Order Comment: Speci men Type: BLOOD SPECIMEN Ordering Facility: [facility] Address: [address] [place] [address] Performed By: #### 5 7021-8 #### [facility] CLIA [id number] [address] [place] [address] [place] WBC (Bld) [#/Vol] 6.03 10*3/uL Normal 3.70-11.00 [facility] Comment on above: Order Comment: Speci men Type: BLOOD SPECIMEN Ordering Facility: [facility] Address: [address] [place] [address] Performed By: #### 5 7021-8 #### [facility] CLIA [id number] [address] [place] [address] OF [place] CNOVon 08-17-2024 CNOV Office Visit (FAMPWS ) CHARLETTE FARMER ([id number]) 1935 F Date Time Provider Department 08/17/24 11:00 [facility] your visit today, we recorded the following information about you: Pulse Respiration Blood pressure Weight 77/minute 16/minute 108/62 69.9 kg Maribel Fay MD 08/23/2024 9:08 AM Signed Chief Complaint Patient presents with: Follow Up: 3 month HPI Charlette Herrera Marleny is a 89 year old female who presents here today for Above Complaints.. DIABETES MELLITUS: Ms. Farmer was last seen 3 months ago. Since our last visit she denies excessive thirst or increased frequency of urination, new or unusual visual symptoms, and low sugar/hypoglycemic reactions. Admits to numbness and tingling in her legs which she takes Gabapentin BID for, but does not help much. Would like higher dosage. . Follows a diabetic diet most of the time. She is compliant with medication(s) and is tolerating med(s) without any side effects. She reports checking her glucose on a once a day schedule with sugars in the fasting 100-180 range with typical readings in the 120-150. Had high readings in the 200's when she had thanksgiving with her family. Patient's last HgA1C was Hemoglobin A1C (%) Date Value 05/15/2024 8.3 12/20/2023 6.5 11/03/2021 7.9 07/22/2021 7.8 ) Last Ophthalmology exam was within the past 12 months Last Podiatry exam was within the past 12 months Patient had recent EGD and colonoscopy for mild anemia with positive FOBT. Found 2 polyps on colonoscopy. EGD unremarkable. No further workup needed. Repeat CBC showed resolved anemia. Started on PPI at f/u with general surgery. RLS: improved with mirapex. No recent gout flares. Up to date on vaccinations. Due for routine labs. Past medical history, appointments, medications, allergies reviewed. Previous Medical History PAST MEDICAL HISTORY Diagnosis Date Arthritis Benign neoplasm of colon tubular adenoma Carpal tunnel syndrome, right Chronic kidney disease, stage 3 (HCC) Diverticulitis 10/10/2020 Diverticulosis of colon (without mention of hemorrhage) Gout History of transfusion Internal hemorrhoids without mention of complication Lumbago Malignant neoplasm of corpus uteri, except isthmus (HCC) 1996 Uterine cancer Other and unspecified hyperlipidemia PAD (peripheral artery disease) (HCC) 2013 Mild LLE Pernicious anemia Restless leg syndrome Rotator cuff tendinitis left Trigger finger, right middle finger Seen by Dr. Burns 2015 Type II or unspecified type diabetes mellitus without mention of complication, uncontrolled Unspecified essential hypertension Previous Surgical History PAST SURGICAL HISTORY Procedure Laterality Date ABDOMINAL SURGERY HX APPENDECTOMY 1952 BACK SURGERY HX CHOLECYSTECTOMY 11/28/2011 COLONOSCOPY 07/12/2024 COLONOSCOPY FLX DX W/COLLJ SPEC WHEN PFRMD 2001 out of state sigmoidoscopy COLONOSCOPY FLX DX W/COLLJ SPEC WHEN PFRMD 10/22/2013 Colonoscopy COLONOSCOPY GEN ANES 01/07/2021 Dr. Phillips, Polyps. repeat in 3 years. COLONOSCOPY W/BIOPSY SINGLE/MULTIPLE 11/12/2008 DILATION AND CURETTAGE DXAND/THER NONOBSTETRIC 1965 Dilation AND curettage EGD 01/07/2021 EGD 07/12/2024 EYE SURGERY HX LAMINECTOMY W/O FFD 09/20 VERT SEG LUMBAR 1971 Laminectomy, lumbar, fusion PAST SURGICAL HISTORY OF Left 09/01/2017 Trigger finger release of left ringer finger REVISE MEDIAN N/CARPAL TUNNEL SURG Right 05/31/2023 TONSILLECTOMY HX TUBAL LIGATION HX VAGINAL HYSTERECTOMY VAGINAL HYSTERECTOMY UTERUS 250 GM/< 1997 Hysterectomy, vaginal Family History FAMILY HISTORY Problem Relation Age of Onset Cancer Mother breast, lung cancer was heavy smoker Diabetes Maternal Grandmother Diabetes Maternal Grandfather other (no siblings) Maternal Grandfather Patient Allergies ALLERGIES Allergen Reactions Lipitor [Atorvastat* Intolerance myalgia Simvastatin Intolerance myalgia Current Medications Current Outpatient Medications on File Prior to Visit Medication Sig omeprazole (PRILOSEC) 20 mg capsule Take 1 capsule by mouth once daily. insulin glargine (LANTUS SOLOSTAR U-100 INSULIN) 100 unit/mL (3 mL) Inject 24 Units subcutaneously daily at bedtime. gabapentin (NEURONTIN) 400 mg capsule Take 1 capsule by mouth two times a day for 180 days. cyanocobalamin (VITAMIN B-12) 1,000 mcg tab Take one tablet every other day Dx: pernicious anemia allopurinol (ZYLOPRIM) 100 mg tablet Take 1 tablet by mouth two times a day. hydroCHLOROthiazide 12.5 mg capsule Take 1 capsule by mouth once daily. lisinopril 2.5 mg tablet Take 1 tablet by mouth once daily. rosuvastatin (CRESTOR) 20 mg tablet Take 1 tablet by mouth daily at bedtime. pramipexole (MIRAPEX) 0.25 mg tablet Take 1 tablet by mouth daily at bedtime. blood sugar diagnostic ( (more content not included)... Normal [facility] Comprehensive metabolic 2000 panelon 08-17-2024 Albumin [Mass/Vol] 4.4 g/dL 3.9 - 4.9 g/dL [facility] ALP [Catalytic activity/Vol] 80 U/L 34 - 123 U/L [facility] ALT [Catalytic activity/Vol] 8 U/L 7 - 38 U/L [facility] Anion gap [Moles/Vol] 15 mmol/L 8 - 15 mmol/L [facility] AST [Catalytic activity/Vol] 18 U/L 13 - 35 U/L [facility] Bilirubin [Mass/Vol] 0.4 mg/dL 0.2 - 1 .3 mg/dL [facility] Calcium [Mass/Vol] 9.6 mg/dL 8.5 - 10. 2 mg/dL [facility] Chloride [Moles/Vol] 103 mmol/L 98 - 10 7 mmol/L [facility] CO2 [Moles/Vol] 23 mmol/L 22 - 30 mmol/L [facility] Creatinine [Mass/Vol] 1.22 mg/dL High 0.58 - 0.96 mg/dL [facility] GFR/1.73 sq M.predicted among non-blacks MDRD (S/P/Bld) [Vol rate/Area] 43 mL/min/{1.73_m2} Low - PINF [facility] Comment on above: Estimated Glomerular Filtration Rate (eGFR) is calculated using the 2020 CKD-EPI creatinine equation. This equation utilizes serum creatinine, sex, and age as parameters. The creatinine assay has traceable calibration to isotope dilution-mass spectrometry. Refer to KDIGO guidelines for clinical interpretation. In patients with unstable renal function, e.g. those with acute kidney injury, the eGFR may not accurately reflect actual GFR. Glucose [Mass/Vol] 91 mg/dL 74 - 99 mg/dL [facility] Comment on above: The [place] Diabete s Association (ADA) provides guidance for cutoff values for fasting glucose and random glucose. The ADA defines fasting as no caloric intake for at least 8 hours. Fasting plasma glucose results between 100 to 125 mg/dL indicate increased risk for diabetes (prediabetes). Fasting plasma glucose results greater than or equal to 126 mg/dL meet the criteria for diagnosis of diabetes. In the absence of unequivocal hyperglycemia, results should be confirmed by repeat testing. In a patient with classic symptoms of hyperglycemia or hyperglycemic crisis, random plasma glucose results greater than or equal to 200 mg/dL meet the criteria for diagnosis of diabetes. Reference: Standards of Medical Care in Diabetes 2016, [place] Diabetes Association. Diabetes Care. 2016.39(Suppl 1). Interpretation and review of laboratory results Abnormal [facility] Potassium [Moles/Vol] 3.9 mmol/L 3.7 - 5.1 mmol/L [facility] Protein [Mass/Vol] 6.9 g/dL 6.3 - 8.0 g/dL [facility] Sodium [Moles/Vol] 141 mmol/L 136 - 144 mmol/L [facility] Urea nitrogen [Mass/Vol] 23 mg/dL High 7 - 21 mg/dL [facility] Albumin [Mass/Vol] 4.4 g/dL Normal 3.9-4.9 [facility] Comment on above: Order Comment: Speci men Type: BLOOD SPECIMEN Ordering Facility: [facility] Address: [address] [place] [address] Performed By: #### 2 4323-8, 2275- #### [facility] CLIA [id number] [address] [place] [address] [place] ALP [Catalytic activity/Vol] 80 U/L Normal 34-123 [facility] Comment on above: Order Comment: Speci men Type: BLOOD SPECIMEN Ordering Facility: [facility] Address: [address] [place] [address] Performed By: #### 2 4323-8, 2275-12 #### [facility] CLIA [id number] [address] [place] [address] [place] ALT [Catalytic activity/Vol] 8 U/L Normal 7-38 [facility] Comment on above: Order Comment: Speci men Type: BLOOD SPECIMEN Ordering Facility: [facility] Address: [address] [place] [address] Performed By: #### 2 4323-8, 2275-12 #### [facility] CLIA [id number] [address] [place] [address] [place] Anion gap [Moles/Vol] 15 mmol/L Normal 8-15 [facility] Comment on above: Order Comment: Speci men Type: BLOOD SPECIMEN Ordering Facility: [facility] Address: [address] [place] [address] Performed By: #### 2 4323-8, 2275- #### [facility] CLIA [id number] [address] [place] [address] [place] AST [Catalytic activity/Vol] 18 U/L Normal 13-35 [facility] Comment on above: Order Comment: Speci men Type: BLOOD SPECIMEN Ordering Facility: [facility] Address: [address] [place] [address] Performed By: #### 2 4323-8, 2275-4 #### [facility] CLIA [id number] [address] [place] [address] [place] Bilirubin [Mass/Vol] 0.4 mg/dL Normal 0.2-1.3 [facility] Comment on above: Order Comment: Speci men Type: BLOOD SPECIMEN Ordering Facility: [facility] Address: [address] [place] [address] Performed By: #### 2 4323-8, 2275-4 #### [facility] CLIA [id number] [address] [place] [address] [place] Calcium [Mass/Vol] 9.6 mg/dL Normal 8.5-10.2 [facility] Comment on above: Order Comment: Speci men Type: BLOOD SPECIMEN Ordering Facility: [facility] Address: [address] [place] [address] Performed By: #### 2 4323-8, 2275- #### [facility] CLIA [id number] [address] [place] [address] [place] Chloride [Moles/Vol] 103 mmol/L Normal 98-107 [facility] Comment on above: Order Comment: Speci men Type: BLOOD SPECIMEN Ordering Facility: [facility] Address: [address] [place] [address] Performed By: #### 2 4323-8, 2275- #### [facility] CLIA [id number] [address] [place] [address] [place] CO2 [Moles/Vol] 23 mmol/L Normal 22-30 [facility] Comment on above: Order Comment: Speci men Type: BLOOD SPECIMEN Ordering Facility: [facility] Address: [address] [place] [address] Performed By: #### 2 4323-8, 2275-12 #### [facility] CLIA [id number] [address] [place] [address] [place] Creatinine [Mass/Vol] 1.22 mg/dL High 0.58-0.96 [facility] Comment on above: Order Comment: Speci men Type: BLOOD SPECIMEN Ordering Facility: [facility] Address: [address] [place] [address] Performed By: #### 2 4323-8, 2275-12 #### [facility] CLIA [id number] [address] [place] [address] [place] Creatinine and Glomerular filtration rate.predicted panel (S/P/Bld) 43 mL/min/1.73m??? Low >=60 [facility] Comment on above: Order Comment: Speci men Type: BLOOD SPECIMEN Ordering Facility: [facility] Address: [address] [place] [address] Result Comment: [place] mated Glomerular Filtration Rate (eGFR) is calculated using the 2020 CKD-EPI creatinine equation. This equation utilizes serum creatinine, sex, and age as parameters. The creatinine assay has traceable calibration to isotope dilution-mass spectrometry. Refer to KDIGO guidelines for clinical interpretation. In patients with unstable renal function, e.g. those with acute kidney injury, the eGFR may not accurately reflect actual GFR. Performed By: #### 2 4323-8, 2275-12 #### [facility] CLIA [id number] [address] [place] [address] [place] Glucose [Mass/Vol] 91 mg/dL Normal 74-99 [facility] Comment on above: Order Comment: Speci men Type: BLOOD SPECIMEN Ordering Facility: [facility] Address: [address] [place] [address] Result Comment: The [place] Diabetes Association (ADA) provides guidance for cutoff values for fasting glucose and random glucose. The ADA defines fasting as no caloric intake for at least 8 hours. Fasting plasma glucose results between 100 to 125 mg/dL indicate increased risk for diabetes (prediabetes). Fasting plasma glucose results greater than or equal to 126 mg/dL meet the criteria for diagnosis of diabetes. In the absence of unequivocal hyperglycemia, results should be confirmed by repeat testing. In a patient with classic symptoms of hyperglycemia or hyperglycemic crisis, random plasma glucose results greater than or equal to 200 mg/dL meet the criteria for diagnosis of diabetes. Reference: Standards of Medical Care in Diabetes 2016, [place] Diabetes Association. Diabetes Care. 2016.39(Suppl 1). Performed By: #### 2 4323-8, 2275- #### [facility] CLIA [id number] [address] [place] [address] [place] Potassium [Moles/Vol] 3.9 mmol/L Normal 3.7-5.1 [facility] Comment on above: Order Comment: Speci men Type: BLOOD SPECIMEN Ordering Facility: [facility] Address: [address] [place] [address] Performed By: #### 2 4323-8, 2275-12 #### [facility] CLIA [id number] [address] [place] [address] [place] Protein [Mass/Vol] 6.9 g/dL Normal 6.3-8.0 [facility] Comment on above: Order Comment: Speci men Type: BLOOD SPECIMEN Ordering Facility: [facility] Address: [address] [place] [address] Performed By: #### 2 4323-8, 2275-12 #### [facility] CLIA [id number] [address] [place] [address] [place] Sodium [Moles/Vol] 141 mmol/L Normal 136-144 [facility] Comment on above: Order Comment: Speci men Type: BLOOD SPECIMEN Ordering Facility: [facility] Address: [address] [place] [address] Performed By: #### 2 4323-8, 2275- #### [facility] CLIA [id number] [address] [place] [address] [place] Urea nitrogen [Mass/Vol] 23 mg/dL High 7-21 [facility] Comment on above: Order Comment: Speci men Type: BLOOD SPECIMEN Ordering Facility: [facility] Address: [address] [place] [address] Performed By: #### 2 4323-8, 2275- #### [facility] CLIA [id number] [address] [place] [address] [place] Ferritin SerPl-mCncon 2023 Ferritin [Mass/Vol] 257.0 ng/mL High 14.7-205.1 [facility] Comment on above: Order Comment: Speci men Type: BLOOD SPECIMEN Ordering Facility: [facility] Address: [address] [place] [address] Performed By: #### 2 4323-8, 2275-12 #### [facility] CLIA [id number] [address] [place] [address] [place] HbA1c (Bld)on 08-17-2024 Average glucose Estimated from glycated hemoglobin (Bld) [Mass/Vol] 206 mg/dL Normal [facility] Comment on above: Order Comment: Speci men Type: BLOOD SPECIMEN Ordering Facility: [facility] Address: [address] [place] [address] Result Comment: eAG: (Estimated average glucose) is a calculated value from HgbA1c and is community health program representative of the average blood glucose level in the last 2-3 month period. Performed By: #### 2 4323-8, 2275-4 #### [facility] CLIA [id number] [address] [place] [address] [place] HbA1c (Bld) [Mass fraction] 8.8 % High 4.3-5.6 [facility] Comment on above: Order Comment: Speci men Type: BLOOD SPECIMEN Ordering Facility: [facility] Address: [address] [place] [id number] Result Comment: [place] Diabetes Association guidelines indicate that patients with HgbA1c in the range 5.7-6.4% are at increased risk for development of diabetes, and intervention by lifestyle modification may be beneficial. HgbA1c greater or equal to 6.5% is considered diagnostic of diabetes. Performed By: #### 2 4323-8, 2276-4 #### [facility] CLIA [id number] [address] [place], [place] [address] [id number] [facility] CNOVon 07-23-2024 CNOV Office Visit (GENSWS ) CHARLETTE FARMER ([id number]) 1935 F Date Time Provider Department 07/23/24 11:30 AM MARIAH ODONNELL During your visit today, we recorded the following information about you: Mariah Odonnell APRN.SHELF FILLER 07/23/2024 11:36 AM Signed FOLLOW UP VISIT - ENDOSCOPY Charlette Farmer 1935 [id number] REFERRING PHYSICIAN: Simon Driscoll [facility] [address] [facility] [address] Charlette Farmer is a patient I am following for + fecal occult stool. Dr. Driscoll performed upper AND lower endoscopy on 07/12/24. The patient was found to have EGD Impression: - Z-line variable, 37 cm from the incisors. Biopsied. - Gastritis. Biopsied. - Normal examined duodenum. Biopsied. COLONOSCOPY Impression: - One medium polyp in the descending colon, removed with a cold snare. Resected and retrieved. Clips were placed. 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 - One diminutive polyp in the rectum, removed with a remocean cold forceps. Resected and retrieved. - Non-bleeding internal hemorrhoids. - The examination was otherwise normal. Pathology demonstrated: FINAL DIAGNOSIS A. Small bowel, duodenum, biopsy: - Duodenal mucosa with no pathologic diagnostic abnormality; negative for celiac disease, granulomas or dysplasia. B. Stomach, antrum, biopsy: - Gastric oxyntic type mucosa with no pathologic diagnostic abnormality; see comment. C. Esophagus, distal, biopsy: - Squamous mucosa with a cystic formation and hyperplasia. D. Esophagus, mid, biopsy: - Squamous mucosa with no pathologic diagnostic abnormality. E. Colon, descending polyp, biopsy: - Hyperplastic polyp. F. Rectum, polyp, biopsy: - Tubular adenoma. Diagnosis Comment SP LAB B. No microorganisms morphologically compatible with Helicobacter Pylori like organisms are identified by routine DARSHAN-stained sections. The patient notes phlegm that she coughs up each morning. Denies illness or cold like symptoms. Denies history of allergies. Does refer to eating delarosa tomatoes as a night time snack. VITALS: There were no vitals taken for this visit. General: patient is alert, cooperative, pleasant and in no acute distress On examination, the abdomen is benign. Assessment ASSESSMENT/PLAN: 1. History of colonic polyps - ICD9: V12.72, ICD10: Z86.0100 (primary diagnosis) 2. Phlegm in throat - ICD9: 786.4, ICD10: R09.89 - Prilosec 20 mg daily x 3mos, if no improvement follow up with ENT - Avoid eating within 3 hours of laying down The operative findings and pathology report were reviewed with the patient, and the patient has had the opportunity to ask questions and have questions answered. If the patient notes any problems or changes in bowel function, the patient should contact me immediately. Otherwise I recommend follow up endoscopy as needed. HM updated and recall letter generated. Discussed treatment plan and patient voices understanding. Patient's questions answered appropriately. Medications and potential side effects were discussed and patient voices understanding. Return to the office as scheduled or as needed for worsening/no improvement. Mariah Odonnell APRN.SHELF FILLER Referring Provider: SIMON DRISCOLL [[id number]] Allergies As of Date: 07/23/2024 Noted Allergy Reaction LIPITOR (ATORVASTATIN) 07/19/2007 5 - Intolerance Comments: myalgia SIMVASTATIN 07/19/2007 5 - Intolerance Comments: myalgia Date Reviewed: 07/23/2024 Reviewed by: Altagracia Hazel RN - Fully Assessed Reason for Visit: Follow Up [171] Cmt: EGD AND Colon 07/12 Primary Visit Diagnosis:History of colonic polyps [Z86.0100] Other Visit Diagnosis:Phlegm in throat [R09.89] Order(s):omeprazole (PRILOSEC) 20 mg capsuleTake 1 capsule by mouth once daily.Disp: 90 capsuleRfl: 0 Prescriptions as of 07/23/2024 - omeprazole (PRILOSEC) 20 mg capsule Take 1 capsule by mouth once daily. - insulin glargine (LANTUS SOLOSTAR U-100 INSULIN) 100 unit/mL (3 mL) Inject 24 Units subcutaneously daily at bedtime. - gabapentin (NEURONTIN) 400 mg capsule Take 1 capsule by mouth two times a day for 180 days. - cyanocobalamin (VITAMIN B-12) 1,000 mcg tab Take one tablet every other day Dx: pernicious anemia - allopurinol (ZYLOPRIM) 100 mg tablet Take 1 tablet by mouth two times a day. - hydroCHLOROthiazide 12.5 mg capsule Take 1 capsule by mouth once daily. - lisinopril 2.5 mg tablet Take 1 tablet by mouth once daily. - rosuvastatin (CRESTOR) 20 mg tablet Take 1 tablet by mouth daily at bedtime. - pramipexole (MIRAPEX) 0.25 mg tablet Take 1 tablet by mouth daily at bedtime. - blood sugar diagnostic (TRUE METRIX GLUCOSE TEST STRIP) test strip Test once daily DX:250.02 Insulin: Yes - Lancets lancets Pt requests Truedraw lancets. T (more content not included)... Normal [facility] CNOVon 07-13-2024 CNOV Office Visit (PODIWS ) CHARLETTE FARMER ([id number]) 1935 F Date Time Provider Department 07/13/24 2:20 PM KAREL SANTIAGO During your visit today, we recorded the following information about you: Paris Ceja RN 07/13/2024 2:27 PM Signed Patient presents with: Left Foot - Established Patient, Follow Up, Diabetic Foot Care Right Foot - Established Patient, Follow Up, Diabetic Foot Care Patient presents for follow up diabetic foot/nail care. MADISYN 04/06/24 Karel Santiago 07/13/2024 2:12 PM Signed Diabetes Foot Care Instructions When you have diabetes, proper foot care is very important. Poor foot care may lead to amputation of a foot or leg. As a person with diabetes, you are more vulnerable to foot problems, because diabetes can damage your nerves and reduce blood flow to your feet. Here are some diabetes foot care tips to follow: Wash and Dry Your Feet Daily Use mild soaps Use warm water Pat your skin dry; do not rub. Thoroughly dry your feet. After washing, use lotion on your feet to prevent cracking. Do not put lotion between your toes. Examine Your Feet Each Day Check the tops and bottoms of your feet. Have someone else look at your feet if you cannot see them. Check for dry, cracked skin. Look for blisters, cuts, scratches, or other sores. Check for redness, increased warmth, or tenderness when touching any area of your feet. Check for ingrown toenails, corns, and calluses. If you get a blister or sore from your shoes, do not pop it. Apply a bandage and wear a different pair of shoes. Take Care of Your Toenails Cut toenails after bathing, when they are soft. Cut toenails straight across and smooth with a nail file. Avoid cutting into the corners of toes. Do not cut cuticles. If you have neuropathy (or decreased sensation in your feet) a clinical informatics director should always cut your toenails. Be Careful When Exercising Walk and exercise in comfortable shoes. Do not exercise when you have open sores on your feet. Protect Your Feet With Shoes and Socks Never go barefoot. Always protect your feet by wearing shoes or hard-soled slippers or footwear. Avoid shoes with high heels and pointed toes. Avoid shoes that expose your toes or heels (such as open-toed shoes or sandals). These types of shoes increase your risk for injury and potential infections. Try on new footwear with the type of socks you usually wear. Do not wear new shoes for more than an hour at a time. Change your socks daily. Look and feel inside your shoes before putting them on to make sure there are no foreign objects or rough areas. Avoid tight socks. Wear natural-fiber socks (cotton, wool, or a cotton-wool blend). Wear special shoes if your health care provider recommends them. Wear shoes/boots that will protect your feet from various weather conditions (cold, moisture, etc.). Make sure your shoes fit properly. If you have neuropathy (nerve damage), you may not notice that your shoes are too tight. Perform the footwear test described below. Footwear Test Use this simple test to see if your shoes fit correctly: Stand on a piece of paper. (Make sure you are standing and not sitting, because your foot changes shape when you stand.) Trace the outline of your foot. Trace the outline of your shoe. Compare the tracings: Is the shoe too narrow? Is your foot crammed into the shoe? The shoe should be at least 1/2 inch longer than your longest toe and as wide as your foot. Proper Shoe Choices The following types of shoes are best for people with diabetes Closed toes and heels Leather uppers without a seam inside At least 1/2 inch extra space at the end of your longest toe Inside of shoe should be soft with no rough areas Outer sole should be made of stiff material Shoes should be at least as wide as your feet Tips for Foot Care in Diabetes Don't wait to treat a minor foot problem if you have diabetes. Follow your health care provider's guidelines and first aid guidelines. Report foot injuries and infections to your health care provider immediately. Check water temperature with your elbow, not your foot. Do not use a heating pad on your feet. Do not cross your legs. Do not self-treat your corns, calluses, or other foot problems. Go to your health care provider or clinical informatics director to treat these conditions. Karel Santiago 07/13/2024 2:27 PM Signed Last saw pcp: 06/06/24 Subjective: Patient presents to clinic c/o painful toenails. They state that the nails are especially painful with shoe gear and pressure. Patient states that nails 1-5 b/l are painful. Patient admits to being diabetic. No other pedal complaints at this time. Patient states no change in medications or medical history since last visit. Objective: Patient presents to clinic ambulating in [facility] Vasc: DP and PT pulses ar (more content not included)... Normal [facility] [id number] 07-12-2024 [id number] HNO ID: [id number] Author: CHRISTIAN SHANKS RN Service: ? Author Type: Registered Nurse Type: [id number] Filed: 07/12/2024 09:37 Note Text: The patient received a copy of Colonoscopy and EGD discharge instructions that contain information for how to contact the physician who performed the procedure and when to seek medical care. Normal [facility] Colonoscopyon 07-12-2024 Colonoscopy [facility] Gastrointestinal Endoscopy Patient Name: Charlette Farmer Procedure Date: 07/12/2024 8:35 AM Date of : 1935 Admit Type: Outpatient Age: 89 Gender: Female Note Status: Finalized Procedure: Colonoscopy Indications: Evaluation of unexplained GI bleeding presenting with fecal occult blood Providers: Simon Driscoll MD Patient Profile: This is an 89 year old female. Refer to note in patient chart for documentation of history and physical. Last Colonoscopy: December 2020. Referring Physician: Mariah Odonnell (Referring ) Medicines: Fentanyl 100 micrograms IV, Midazolam 3 mg IV Complications: No immediate complications. Estimated blood loss: Minimal. Requesting Provider: Procedure: Pre-Anesthesia Assessment: - Prior to the procedure, a History and Physical was performed, and patient medications and allergies were reviewed. The patient's tolerance of previous anesthesia was also reviewed. The risks and benefits of the procedure and the sedation options and risks were discussed with the patient. All questions were answered, and informed consent was obtained. Prior Anticoagulants: The patient has taken no anticoagulant or antiplatelet agents except for aspirin. ASA Grade Assessment: III - A patient with severe systemic disease. After reviewing the risks and benefits, the patient was deemed in satisfactory condition to undergo the procedure. After I obtained informed consent, the scope was passed under direct vision. Throughout the procedure, the patient's blood pressure, pulse, and oxygen saturations were monitored continuously. The Colonoscope was introduced through the anus and advanced to the cecum, identified by appendiceal orifice and ileocecal valve. The colonoscopy was performed without difficulty. The patient tolerated the procedure well. The quality of the bowel preparation was adequate to identify polyps greater than 5 mm in size. The ileocecal valve, appendiceal orifice, and rectum were photographed. Moderate Sedation: The administration of moderate sedation was initiated at 08:48 AM. Moderate (conscious) sedation was personally administered by the endoscopist. The following parameters were monitored: oxygen saturation, heart rate, blood pressure, respiratory rate, EKG, adequacy of pulmonary ventilation, and response to care. Total physician intraservice time was 31 minutes. Findings: The perianal and digital rectal examinations were normal. A medium polyp was found in the descending colon. The polyp was sessile. The polyp was removed with a cold snare. Resection and retrieval were complete. To prevent bleeding post-intervention, two hemostatic clips were successfully placed. 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 There was no bleeding at the end of the procedure. A diminutive polyp was found in the rectum. The polyp was sessile. The polyp was removed with a jumbo cold forceps. Resection and retrieval were complete. Non-bleeding internal hemorrhoids were found during retroflexion. The hemorrhoids were mild and small. The exam was otherwise without abnormality. Impression: - One medium polyp in the descending colon, removed with a cold snare. Resected and retrieved. Clips were placed. 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 - One diminutive polyp in the rectum, removed with a jumbo cold forceps. Resected and retrieved. - Non-bleeding internal hemorrhoids. - The examination was otherwise normal. Recommendation: - Patient has a contact number available for emergencies. The signs and symptoms of potential delayed complications were discussed with the patient. Return to normal activities tomorrow. Written discharge instructions were provided to the patient. - Resume previous diet. - Continue present medications. - Await pathology results. - Repeat colonoscopy date to be determined after pending pathology results are reviewed for surveillance based on pathology results. - Return to nurse practitioner at appointment to be scheduled. - Resume previous antiplatelet medication tomorrow at prior dose. Procedure Code(s): --- Professional --- 69439, Colonoscopy, flexible; with removal of tumor(s), polyp(s), or other lesion(s) by snare technique 58336, 59, Colonoscopy, flexible; with biopsy, single or multiple G0500, Moderate sedation services provided by the same physician or other qualified health dog daycare provider performing a gastrointestinal endoscopic service that sedation supports, requiring the presence of an independent trained observer to assist in the monitoring of the patient's level of consciousness and physiological status; initial 15 minutes of intra-service time; patient age 5 years or older (additional time may be reported with 56662, as appropriate) 57561, Moderate sedation; each additional 15 minutes intraservice time Diagnosis Code(s): --- Professional - (more content not included)... Normal [facility] EGD Study observation Delaney jaramillo 07-12-2024 [facility] Gastrointestinal Endoscopy Patient Name: Charlette Farmer Procedure Date: 07/12/2024 8:34 AM Date of : 1935 Admit Type: Outpatient Age: 89 Gender: Female Note Status: Finalized Procedure: Upper GI endoscopy Indications: Heme positive stool Providers: Simon Driscoll MD Patient Profile: This is an 89 year old female. Refer to note in patient chart for documentation of history and physical. Referring Physician: Mariah Odonnell (Referring MD) Medicines: Fentanyl 100 micrograms IV, Midazolam 3 mg IV, Benzocaine spray Complications: No immediate complications. Estimated blood loss: Minimal. Requesting Provider: Procedure: Pre-Anesthesia Assessment: - Prior to the procedure, a History and Physical was performed, and patient medications and allergies were reviewed. The patient's tolerance of previous anesthesia was also reviewed. The risks and benefits of the procedure and the sedation options and risks were discussed with the patient. All questions were answered, and informed consent was obtained. Prior Anticoagulants: The patient has taken no anticoagulant or antiplatelet agents except for aspirin. ASA Grade Assessment: III - A patient with severe systemic disease. After reviewing the risks and benefits, the patient was deemed in satisfactory condition to undergo the procedure. After obtaining informed consent, the endoscope was passed under direct vision. Throughout the procedure, the patient's blood pressure, pulse, and oxygen saturations were monitored continuously. The Endoscope was introduced through the mouth, and advanced to the second part of duodenum. The upper GI endoscopy was accomplished without difficulty. The patient tolerated the procedure well. Moderate Sedation: The administration of moderate sedation was initiated at 08:48 AM. Moderate (conscious) sedation was personally administered by the endoscopist. The following parameters were monitored: oxygen saturation, heart rate, blood pressure, respiratory rate, EKG, adequacy of pulmonary ventilation, and response to care. Total physician intraservice time was 31 minutes. Findings: The Z-line was variable and was found 37 cm from the incisors. Biopsies were taken with a cold forceps for histology. Localized minimal inflammation characterized by linear erosions was found in the prepyloric region of the stomach. Biopsies were taken with a cold forceps for Helicobacter pylori testing. The examined duodenum was normal. Biopsies for histology were taken with a cold forceps for evaluation of celiac disease. Impression: - Z-line variable, 37 cm from the incisors. Biopsied. - Gastritis. Biopsied. - Normal examined duodenum. Biopsied. Recommendation: - Patient has a contact number available for emergencies. The signs and symptoms of potential delayed complications were discussed with the patient. Return to normal activities tomorrow. Written discharge instructions were provided to the patient. - Resume previous diet. - Continue present medications. - Await pathology results. - Repeat upper endoscopy PRN for surveillance. - Return to nurse practitioner at appointment to be scheduled. Procedure Code(s): --- Professional --- 17162, Esophagogastroduodenos copy, flexible, transoral; with biopsy, single or multiple G0500, Moderate sedation services provided by the same physician or other qualified health dog daycare provider performing a gastrointestinal endoscopic service that sedation supports, requiring the presence of an independent trained observer to assist in the monitoring of the patient's level of consciousness and physiological s (more content not included)... PROVATION [facility] Flexible sigmoidoscopy study on 07-12-2024 [facility] Gastrointestinal Endoscopy Patient Name: Charlette Farmer Procedure Date: 07/12/2024 8:35 AM Date of : 1935 Admit Type: Outpatient Age: 89 Gender: Female Note Status: Finalized Procedure: Colonoscopy Indications: Evaluation of unexplained GI bleeding presenting with fecal occult blood Providers: Simon Driscoll MD Patient Profile: This is an 89 year old female. Refer to note in patient chart for documentation of history and physical. Last Colonoscopy: December 2020. Referring Physician: Mariah Odonnell (Referring MD) Medicines: Fentanyl 100 micrograms IV, Midazolam 3 mg IV Complications: No immediate complications. Estimated blood loss: Minimal. Requesting Provider: Procedure: Pre-Anesthesia Assessment: - Prior to the procedure, a History and Physical was performed, and patient medications and allergies were reviewed. The patient's tolerance of previous anesthesia was also reviewed. The risks and benefits of the procedure and the sedation options and risks were discussed with the patient. All questions were answered, and informed consent was obtained. Prior Anticoagulants: The patient has taken no anticoagulant or antiplatelet agents except for aspirin. ASA Grade Assessment: III - A patient with severe systemic disease. After reviewing the risks and benefits, the patient was deemed in satisfactory condition to undergo the procedure. After I obtained informed consent, the scope was passed under direct vision. Throughout the procedure, the patient's blood pressure, pulse, and oxygen saturations were monitored continuously. The Colonoscope was introduced through the anus and advanced to the cecum, identified by appendiceal orifice and ileocecal valve. The colonoscopy was performed without difficulty. The patient tolerated the procedure well. The quality of the bowel preparation was adequate to identify polyps greater than 5 mm in size. The ileocecal valve, appendiceal orifice, and rectum were photographed. Moderate Sedation: The administration of moderate sedation was initiated at 08:48 AM. Moderate (conscious) sedation was personally administered by the endoscopist. The following parameters were monitored: oxygen saturation, heart rate, blood pressure, respiratory rate, EKG, adequacy of pulmonary ventilation, and response to care. Total physician intraservice time was 31 minutes. Findings: The perianal and digital rectal examinations were normal. A medium polyp was found in the descending colon. The polyp was sessile. The polyp was removed with a cold snare. Resection and retrieval were complete. To prevent bleeding post-intervention, two hemostatic clips were successfully placed. 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 There was no bleeding at the end of the procedure. A diminutive polyp was found in the rectum. The polyp was sessile. The polyp was removed with a jumbo cold forceps. Resection and retrieval were complete. Non-bleeding internal hemorrhoids were found during retroflexion. The hemorrhoids were mild and small. The exam was otherwise without abnormality. Impression: - One medium polyp in the descending colon, removed with a cold snare. Resected and retrieved. Clips were placed. 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 - One diminutive polyp in the rectum, removed with a jumbo cold forceps. Resected and retrieved. - Non-bleeding internal hemorrhoids. - The examination was otherwise normal. Recommendation: - Patient has a contact number available for emergencies. The signs and symptoms of potential delayed complications were discussed with the patient. Return to normal activities tomorrow. Written discharge instructions were provided to the patient. - Resume previous diet. - Continue present medications. (more content not included)... PROVATION [facility] GLUCOSE, BLOOD (POC)on 07-12 Glucose [Mass/Vol] 77 mg/dL 74 - 99 mg/dL [facility] Comment on above: Location:[facility], [address], [place], [place], [address] The Accu-Chek Inform II glucose meter has not been approved for testing on patients receiving intensive medical intervention or therapy and results from this point of care glucose test should not be used for patient management decisions in these cases. Inaccurate results may also occur from other interfering factors, such as N-acetylcysteine (blood concentrations of greater than 5mg/dL), galactose, extremes of hematocrit (<10 or >65), or high doses of ascorbic acid (vitamin C) greater than 3mg/dL. Consider alternate testing mechanisms (e.g. core lab, blood gas instrument) in the above situations. [facility] HISTORY PHYSICALon HISTORY PHYSICAL HNO ID: [id number] Author: SIMON DRISCOLL MD Service: General Surgery Author Type: Physician Type: H&P Filed: 07/12/2024 08:47 Note Text: HISTORY AND PHYSICAL Charlette Silverman Marleny : 1935 REFERRING PHYSICIAN: Tosha Pelaez [address] [id number] CHIEF COMPLAINT: Patient presents with: Consult: colonoscopy HPI: Charlette is a 89 year old female referred for endoscopy. Charlette notes + fecal occult stool. Charlette denies abdominal pain. Charlette denies diarrhea. Charlette denies constipation. Charlette denies a change in bowel habits. Charlette denies melena. Charlette denies bright red blood per rectum. Charlette denies hemorrhoids. Charlette denies heartburn. Charlette denies dysphagia. Charlette denies a history of ulcers/ peptic ulcer disease. Charlette Denies family history of colon issues. Charlette has past medical history significant for DMT2, HTN, CKD stage 3. She denies CP, SOB, dizziness, palpitations, syncope, edema, recent hospitalizations Charlette has undergone prior endoscopy. Last colonoscopy was 12/[address] Phillips at [facility]. Sedation received: Midazolam 2 mg IV, Fentanyl 50 micrograms IV, Diphenhydramine 50 mg IV Impression: - Non-bleeding external and internal hemorrhoids. - Three small polyps in the rectum, removed with a cold snare. Resected and retrieved. PATHOLOGY CONVERTED FINAL DIAGNOSIS Rectum, polypectomy - Tubular adenoma. KL/lbk 01/08/2021 CURRENT MEDICATIONS Current Outpatient Medications Medication Sig gabapentin (NEURONTIN) 400 mg capsule Take 1 capsule by mouth two times a day for 180 days. cyanocobalamin (VITAMIN B-12) 1,000 mcg tab Take one tablet every other day Dx: pernicious anemia allopurinol (ZYLOPRIM) 100 mg tablet Take 1 tablet by mouth two times a day. insulin glargine (LANTUS SOLOSTAR U-100 INSULIN) 100 unit/mL (3 mL) Inject 22 Units subcutaneously daily at bedtime. hydroCHLOROthiazide 12.5 mg capsule Take 1 capsule by mouth once daily. lisinopril 2.5 mg tablet Take 1 tablet by mouth once daily. rosuvastatin (CRESTOR) 20 mg tablet Take 1 tablet by mouth daily at bedtime. pramipexole (MIRAPEX) 0.25 mg tablet Take 1 tablet by mouth daily at bedtime. blood sugar diagnostic (TRUE METRIX GLUCOSE TEST STRIP) test strip Test once daily DX:250.02 Insulin: Yes Lancets lancets Pt requests Truedraw lancets. Test blood sugar(s) 1 times daily. Dx: Other DM Code 250.02 Insulin: Yes Lancets (ACCU-CHEK SOFTCLIX LANCETS) lancets Use Three times daily to check blood sugar Insulin Volborg, Disposable, (PEN NEEDLE) 29 gauge x 1/2 One needle once daily. Dx: 250.02 Insulin: yes Acetaminophen 500 mg cap Take 2 capsules by mouth two times a day as needed for pain. Reports will utilize 1 500mg tab 1-2 times in between the 1000 mg doses Miscellaneous Medical Supply (BLOOD PRESSURE CUFF) 1 Each once daily. ondansetron (ZOFRAN) 4 mg tablet Take 4 mg by mouth every 8 hours as needed for nausea/vomiting. meclizine (ANTIVERT) 25 mg tab Take 25 mg by mouth three times a day. blood sugar diagnostic (BLOOD GLUCOSE TEST) test strip Test blood sugar(s) 2 times daily. Dx: Type 2 DM - Controlled E11.9 Insulin: Yes ammonium lactate (LAC-HYDRIN) 12 % lotion Apply 1 application to affected area as needed for Dry Skin. melatonin 3 mg Take by mouth daily at bedtime. COMPOUNDED PRESCRIPTION Cock up wrist splint, right Medium. To be worn nightly to prevent carpal tunnel symptoms. Dx: carpal tunnel right Cholecalciferol, Vitamin D3, 1,000 unit cap Take 1 capsule by mouth once daily. Blood-Glucose Meter, Drum-type (ACCU-CHEK COMPACT PLUS CARE) Misc Kit 1 Each. Accu-Check Compact Plus Meter Diagnosis: Diabetes Mellitus ASPIRIN 81 MG TAB Take one (1) tablet daily . cephALEXin (KEFLEX) 500 mg capsule Take 500 mg by mouth three times a day. (Patient not taking: Reported on 04/06/2024) No current facility-administered medications for this visit. 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 Burns 2015 Type II or unspecified type diabetes mellitus without mention of complication, uncontrolled Unspecified essential hypertension PAST SURGICAL HISTORY PAST SURGICAL HISTORY Procedure Laterality Date ABDOMINAL SURGERY HX APPENDECTOMY 1952 BACK SURGERY HX CHOLEC (more content not included)... Normal [facility] NURSING PROGon 07-12-2024 NURSING PROG HNO ID: [id number] Author: CHRISTIAN SHANKS RN Service: ? Author Type: Registered Nurse Type: Nursing Progress Note Filed: 07/12/2024 10:28 Note Text: Patient arrived laying on left side. Patient does not appear to be in any pain at this time. Abdomen appears to be nondistended and soft to palpation. Patient encouraged to belch and pass gas as needed. Normal [facility] No Panel Informationon 07-12 Radiology Study observation (narrative) [facility] SURGICAL PATHOLOGYon 024 CASE REPORT Normal [facility] Comment on above: Order Comment: Speci men Type: TISSUE SPECIMENOrdering Facility: [facility] Address: [address] [place] [address] Result Comment: Surg ical Pathology Report Case: [id number] Authorizing Provider: Simon Driscoll MD Collected: 07/12/2024 08:52 AM Ordering Location: Ambulatory Surgery Received: 07/12/2024 01:05 PM Pathologist: Bolivar Cardenas MD Specimens: A) - Small Bowel, Duodenum, Biopsy B) - Stomach, Antrum, Biopsy, Antral for H/H C) - Esophagus, Distal, Biopsy D) - Esophagus, Mid, Biopsy E) - Colon, Descending, Polyp F) - Rectum, Polyp Performed By: #### S ####[facility] LABORATORYIA [id number] [address] LABIA [id number] [address] [place] DIAGNOSIS COMMENT B. No microorganisms morphologically compatible with Helicobacter Pylori like organisms are identified by routine H AND E-stained sections. Normal [facility] Comment on above: Order Comment: Speci men Type: TISSUE SPECIMENOrdering Facility: [facility] Address: [address] [place] [address] Performed By: #### S ####[facility] [id number] [address] LABIA [id number] [address] [place] FINAL DIAGNOSIS Normal [facility] Comment on above: Order Comment: Speci men Type: TISSUE SPECIMENOrdering Facility: [facility] Address: [address] [place] [address] Result Comment: A. S mall bowel, duodenum, biopsy: - Duodenal mucosa with no pathologic diagnostic abnormality; negative for celiac disease, granulomas or dysplasia. B. Stomach, antrum, biopsy: - Gastric oxyntic type mucosa with no pathologic diagnostic abnormality; see comment. C. Esophagus, distal, biopsy: - Squamous mucosa with a cystic formation and hyperplasia. D. Esophagus, mid, biopsy: - Squamous mucosa with no pathologic diagnostic abnormality. E. Colon, descending polyp, biopsy: - Hyperplastic polyp. F. Rectum, polyp, biopsy: - Tubular adenoma. Performed By: #### S ####[facility] LABORATORYCLIA [id number] [address] LABCLIA [id number] [place] [address] [place] FINAL PERFORMING LAB Normal [facility] Comment on above: Order Comment: Speci men Type: TISSUE SPECIMENOrdering Facility: [facility] Address: [address] [place] [address] Result Comment: Diag nostic interpretation performed at [facility], [address] [place] [address] CLIA# [id number] Infantry Assaultman: Bolivar Cardenas M.D. Performed By: #### S ####[facility] LABORATORYCLIA [id number] [address] LABCLIA [id number] [address] [place] GROSS DESCRIPTION Normal [facility] Comment on above: Order Comment: Speci men Type: TISSUE SPECIMENOrdering Facility: [facility] Address: [address] [place] [address] Result Comment: A. S mall Bowel, Duodenum, Biopsy Received in formalin are two pieces of park, soft tissue aggregating to 1.3 x 0.2 x 0.1 cm. Totally submitted in one cassette. B. Stomach, Antrum, Biopsy Received in formalin is one piece of park, soft tissue measuring 0.9 x 0.2 x 0.1 cm. Totally submitted in one cassette. C. Esophagus, Distal, Biopsy Received in formalin are two pieces of park-white, soft tissue aggregating to 1.2 x 0.3 x 0.1 cm. Totally submitted in one cassette. D. Esophagus, Mid, Biopsy Received in formalin is one piece of park-white, soft tissue measuring 0.5 x 0.2 x 0.1 cm. Totally submitted in one cassette. E. Colon, Descending, Polyp Received in formalin are multiple pieces of park, soft tissue aggregating to 1.4 x 0.7 x 0.1 cm. Totally submitted in three cassettes. F. Rectum, Polyp Received in formalin are two pieces of park, soft tissue aggregating to 0.7 x 0.2 x 0.2 cm. Totally submitted in one cassette. DB July 13, 2024 12:42 AM Gross examination performed at [facility], [address] [place] [address] Performed By: #### S ####[facility] LABORATORYCLIA [id number] [address] LABCLIA [id number] [address] STATES OF [facility] Upper GI endoscopy 10-24-2 024 Upper GI endoscopy [facility] Gastrointestinal Endoscopy Patient Name: Charlette Farmer Procedure Date: 07/12/2024 8:34 AM Date of : 1935 Admit Type: Outpatient Age: 89 Gender: Female Note Status: Finalized Procedure: Upper GI endoscopy Indications: Heme positive stool Providers: Simon Driscoll MD Patient Profile: This is an 89 year old female. Refer to note in patient chart for documentation of history and physical. Referring Physician: Mariah Odonnell (Referring ) Medicines: Fentanyl 100 micrograms IV, Midazolam 3 mg IV, Benzocaine spray Complications: No immediate complications. Estimated blood loss: Minimal. Requesting Provider: Procedure: Pre-Anesthesia Assessment: - Prior to the procedure, a History and Physical was performed, and patient medications and allergies were reviewed. The patient's tolerance of previous anesthesia was also reviewed. The risks and benefits of the procedure and the sedation options and risks were discussed with the patient. All questions were answered, and informed consent was obtained. Prior Anticoagulants: The patient has taken no anticoagulant or antiplatelet agents except for aspirin. ASA Grade Assessment: III - A patient with severe systemic disease. After reviewing the risks and benefits, the patient was deemed in satisfactory condition to undergo the procedure. After obtaining informed consent, the endoscope was passed under direct vision. Throughout the procedure, the patient's blood pressure, pulse, and oxygen saturations were monitored continuously. The Endoscope was introduced through the mouth, and advanced to the second part of duodenum. The upper GI endoscopy was accomplished without difficulty. The patient tolerated the procedure well. Moderate Sedation: The administration of moderate sedation was initiated at 08:48 AM. Moderate (conscious) sedation was personally administered by the endoscopist. The following parameters were monitored: oxygen saturation, heart rate, blood pressure, respiratory rate, EKG, adequacy of pulmonary ventilation, and response to care. Total physician intraservice time was 31 minutes. Findings: The Z-line was variable and was found 37 cm from the incisors. Biopsies were taken with a cold forceps for histology. Localized minimal inflammation characterized by linear erosions was found in the prepyloric region of the stomach. Biopsies were taken with a cold forceps for Helicobacter pylori testing. The examined duodenum was normal. Biopsies for histology were taken with a cold forceps for evaluation of celiac disease. Impression: - Z-line variable, 37 cm from the incisors. Biopsied. - Gastritis. Biopsied. - Normal examined duodenum. Biopsied. Recommendation: - Patient has a contact number available for emergencies. The signs and symptoms of potential delayed complications were discussed with the patient. Return to normal activities tomorrow. Written discharge instructions were provided to the patient. - Resume previous diet. - Continue present medications. - Await pathology results. - Repeat upper endoscopy PRN for surveillance. - Return to nurse practitioner at appointment to be scheduled. Procedure Code(s): --- Professional --- 08329, Esophagogastroduodenos copy, flexible, transoral; with biopsy, single or multiple G0500, Moderate sedation services provided by the same physician or other qualified health dog daycare provider performing a gastrointestinal endoscopic service that sedation supports, requiring the presence of an independent trained observer to assist in the monitoring of the patient's level of consciousness and physiological status; initial 15 minutes of intra-service time; patient age 5 years or older (additional time may be reported with 41849, as appropriate) 76704, Moderate sedation; each additional 15 minutes intraservice time Diagnosis Code(s): --- Professional --- K22.89, Other specified disease of esophagus K29.70, Gastritis, unspecified, without bleeding R19.5, Other fecal abnormalities CPT copyright 2020 [employer]. All rights reserved. The codes documented in this report are preliminary and upon production team advisor review may be revised to meet current compliance requirements. Attending Participation: I personally performed the entire procedure. Scope In: 8:51:26 AM Scope Out: 8:55:36 AM MD Simon Medley MD 07/12/2024 9:23:55 AM This report has been signed electronically by Simon Driscoll MD Number of Addenda: 0 Note Initiated On: 07/12/2024 8:34 AM Estimated Blood Loss: Estimated blood loss was minimal. Normal [facility] 07-10-2024 CNPN Telephone (FAMPWS) CHARLETTE FARMER ([id number]) 1935 F Date Time Provider Department 07/10/24 MARIBEL FAY ADAMS-NERVINE ASYLUMAFUA During your visit today, we recorded the following information about you: Montserrat Perales LPN 07/10/2024 3:13 PM Signed Patient calling she is scheduled for EGD and colonoscopy on with Dr Driscoll. Her blood sugars are going low since she is doing the clear liquids. Yesterday blood sugar was 67 and today was 63. Patient has been taking Lantus insulin 24 units at bedtime. Patient is asking if she could reduce her insulin dose? Please advise Maribel Fay MD 07/11/2024 7:04 AM Signed If she is not eating a regular diet, she should reduce her lantus dose by 1/2. In this case, she would take 12 units of insulin to prevent sugar from going too high or too low. How has she been correcting her low sugar? Paris Umanzor RN 07/11/2024 8:29 AM Signed Pt called and is notified of providers message and instructions. Pt voices understanding. She states her BSs have been in the low 100s, but she has been on a liquid diet for 4 days. Pt states she gets her Colonoscopy tomorrow. Pt reports she has been drinking fruit juice and broth. Pt denied doing anything special for her BS as it has only been in the 100s. Pt states she will 1/2 the Lantus tonight, but resume normal dose tomorrow after procedure. BERNADETTE Olmedo Christopher B, MD 07/11/2024 8:59 AM Signed Agree. Allergies As of Date: 07/10/2024 Noted Allergy Reaction LIPITOR (ATORVASTATIN) 07/19/2007 5 - Intolerance Comments: myalgia SIMVASTATIN 07/19/2007 5 - Intolerance Comments: myalgia Date Reviewed: 06/19/2024 Reviewed by: Altagracia Hazel RN - Fully Assessed Reason for Visit: Patient Question [8987] Prescriptions as of 07/11/2024 - insulin glargine (LANTUS SOLOSTAR U-100 INSULIN) 100 unit/mL (3 mL) Inject 24 Units subcutaneously daily at bedtime. - gabapentin (NEURONTIN) 400 mg capsule Take 1 capsule by mouth two times a day for 180 days. - cyanocobalamin (VITAMIN B-12) 1,000 mcg tab Take one tablet every other day Dx: pernicious anemia - allopurinol (ZYLOPRIM) 100 mg tablet Take 1 tablet by mouth two times a day. - hydroCHLOROthiazide 12.5 mg capsule Take 1 capsule by mouth once daily. - lisinopril 2.5 mg tablet Take 1 tablet by mouth once daily. - rosuvastatin (CRESTOR) 20 mg tablet Take 1 tablet by mouth daily at bedtime. - pramipexole (MIRAPEX) 0.25 mg tablet Take 1 tablet by mouth daily at bedtime. - blood sugar diagnostic (TRUE METRIX GLUCOSE TEST STRIP) test strip Test once daily DX:250.02 Insulin: Yes - Lancets lancets Pt requests Truedraw lancets. Test blood sugar(s) 1 times daily. Dx: Other DM Code 250.02 Insulin: Yes - Lancets (ACCU-CHEK SOFTCLIX LANCETS) lancets Use Three times daily to check blood sugar - Insulin Volborg, Disposable, (PEN NEEDLE) 29 gauge x 1/2 One needle once daily. Dx: 250.02 Insulin: yes - Acetaminophen 500 mg cap Take 2 capsules by mouth two times a day as needed for pain. Reports will utilize 1 500mg tab 1-2 times in between the 1000 mg doses - Miscellaneous Medical Supply (BLOOD PRESSURE CUFF) 1 Each once daily. - ondansetron (ZOFRAN) 4 mg tablet Take 4 mg by mouth every 8 hours as needed for nausea/vomiting. - meclizine (ANTIVERT) 25 mg tab Take 25 mg by mouth three times a day. - cephALEXin (KEFLEX) 500 mg capsule Take 500 mg by mouth three times a day. - blood sugar diagnostic (BLOOD GLUCOSE TEST) test strip Test blood sugar(s) 2 times daily. Dx: Type 2 DM - Controlled E11.9 Insulin: Yes - ammonium lactate (LAC-HYDRIN) 12 % lotion Apply 1 application to affected area as needed for Dry Skin. - melatonin 3 mg Take by mouth daily at bedtime. - COMPOUNDED PRESCRIPTION Cock up wrist splint, right Medium. To be worn nightly to prevent carpal tunnel symptoms. Dx: carpal tunnel right - Cholecalciferol, Vitamin D3, 1,000 unit cap Take 1 capsule by mouth once daily. - Blood-Glucose Meter, Drum-type (ACCU-CHEK COMPACT PLUS CARE) Misc Kit 1 Each. Accu-Check Compact Plus Meter Diagnosis: Diabetes Mellitus - ASPIRIN 81 MG TAB Take one (1) tablet daily . Problem List As Of Date 07/10/2024 Noted Resolved Other specified disorders of rotator cuff syndr*02/16/2006 10/18/2016 Malignant neoplasm of corpus uteri, except isth* 11/24/2015 HYPERLIPIDEMIA NEC/NOS [E78.5] 10/14/2015 Lumbago [M54.50] 06/15/2016 DIABETES MELLITUS TYPE II UNCONTR UNCOMPL [IMO0* 07/18/2014 HYPERTENSION NOS [I10] 10/14/2015 Special screening for malignant neoplasms, colo*11/12/2008 11/24/2015 Benign neoplasm of colon [D12.6] 11/12/2008 11/24/2015 Diverticulosis of colon [K57.30] 11/12/2008 Internal hemorrhoids without mention of complic*11/12/2008 10/14/2015 Tubular adenoma of rectum [D12.8] 02/25/2011 11/24/2015 Pernicious an (more content not included)... Normal [facility] CNPNon 07-09-2024 CNPN Telephone (GENSWS) CHARLETTE FARMER ([id number]) 1935 F Date Time Provider Department 07/09/24 SIMON DRISCLOL During your visit today, we recorded the following information about you: Pualine Bull 07/09/2024 9:31 AM Signed Patient seen Mariah odonnell 06/19/[address] Driscoll in [facility] this and is needing to review prep instructions with a nurse. Patient do Miralax Dulcolax Please advise Pauline Bull Community Engagement Manager Allergies As of Date: 07/09/2024 Noted Allergy Reaction LIPITOR (ATORVASTATIN) 07/19/2007 5 - Intolerance Comments: myalgia SIMVASTATIN 07/19/2007 5 - Intolerance Comments: myalgia Date Reviewed: 06/19/2024 Reviewed by: Altagracia Hazel, BERNADETTE - Fully Assessed Reason for Visit: Patient Update [1234] Prescriptions as of 07/17/2024 - insulin glargine (LANTUS SOLOSTAR U-100 INSULIN) 100 unit/mL (3 mL) Inject 24 Units subcutaneously daily at bedtime. - gabapentin (NEURONTIN) 400 mg capsule Take 1 capsule by mouth two times a day for 180 days. - cyanocobalamin (VITAMIN B-12) 1,000 mcg tab Take one tablet every other day Dx: pernicious anemia - allopurinol (ZYLOPRIM) 100 mg tablet Take 1 tablet by mouth two times a day. - hydroCHLOROthiazide 12.5 mg capsule Take 1 capsule by mouth once daily. - lisinopril 2.5 mg tablet Take 1 tablet by mouth once daily. - rosuvastatin (CRESTOR) 20 mg tablet Take 1 tablet by mouth daily at bedtime. - pramipexole (MIRAPEX) 0.25 mg tablet Take 1 tablet by mouth daily at bedtime. - blood sugar diagnostic (TRUE METRIX GLUCOSE TEST STRIP) test strip Test once daily DX:250.02 Insulin: Yes - Lancets lancets Pt requests Truedraw lancets. Test blood sugar(s) 1 times daily. Dx: Other DM Code 250.02 Insulin: Yes - Lancets (ACCU-CHEK SOFTCLIX LANCETS) lancets Use Three times daily to check blood sugar - Insulin Volborg, Disposable, (PEN NEEDLE) 29 gauge x 1/2 One needle once daily. Dx: 250.02 Insulin: yes - Acetaminophen 500 mg cap Take 2 capsules by mouth two times a day as needed for pain. Reports will utilize 1 500mg tab 1-2 times in between the 1000 mg doses - Miscellaneous Medical Supply (BLOOD PRESSURE CUFF) 1 Each once daily. - ondansetron (ZOFRAN) 4 mg tablet Take 4 mg by mouth every 8 hours as needed for nausea/vomiting. - meclizine (ANTIVERT) 25 mg tab Take 25 mg by mouth three times a day. - cephALEXin (KEFLEX) 500 mg capsule Take 500 mg by mouth three times a day. - blood sugar diagnostic (BLOOD GLUCOSE TEST) test strip Test blood sugar(s) 2 times daily. Dx: Type 2 DM - Controlled E11.9 Insulin: Yes - ammonium lactate (LAC-HYDRIN) 12 % lotion Apply 1 application to affected area as needed for Dry Skin. - melatonin 3 mg Take by mouth daily at bedtime. - COMPOUNDED PRESCRIPTION Cock up wrist splint, right Medium. To be worn nightly to prevent carpal tunnel symptoms. Dx: carpal tunnel right - Cholecalciferol, Vitamin D3, 1,000 unit cap Take 1 capsule by mouth once daily. - Blood-Glucose Meter, Drum-type (ACCU-CHEK COMPACT PLUS CARE) Misc Kit 1 Each. Accu-Check Compact Plus Meter Diagnosis: Diabetes Mellitus - ASPIRIN 81 MG TAB Take one (1) tablet daily . Problem List As Of Date 07/09/2024 Noted Resolved Other specified disorders of rotator cuff syndr*02/16/2006 10/18/2016 Malignant neoplasm of corpus uteri, except isth* 11/24/2015 HYPERLIPIDEMIA NEC/NOS [E78.5] 10/14/2015 Lumbago [M54.50] 06/15/2016 DIABETES MELLITUS TYPE II UNCONTR UNCOMPL [IMO0* 07/18/2014 HYPERTENSION NOS [I10] 10/14/2015 Special screening for malignant neoplasms, colo*11/12/2008 11/24/2015 Benign neoplasm of colon [D12.6] 11/12/2008 11/24/2015 Diverticulosis of colon [K57.30] 11/12/2008 Internal hemorrhoids without mention of complic*11/12/2008 10/14/2015 Tubular adenoma of rectum [D12.8] 02/25/2011 11/24/2015 Pernicious anemia [D51.0] 08/25/2012 Medicare annual wellness visit, initial [Z00.00]09/28/2013 11/24/2015 Stage 3b chronic kidney disease (HCC) [N18.32] 04/12/2014 PAD (peripheral artery disease) (HCC) [I73.9] 05/02/2014 Medicare annual wellness visit, subsequent [Z00*10/11/2014 11/24/2015 Diabetes mellitus with neuropathy (HCC) [E11.40]10/11/2014 11/24/2015 Essential hypertension [I10] 10/14/2015 Mixed hyperlipidemia [E78.2] 10/14/2015 DM type 2 with diabetic peripheral neuropathy (*11/12/2015 Trigger middle finger of right hand [M65.331] 11/20/2015 Trigger finger, left ring finger [M65.342] 08/25/2017 Restless leg syndrome [G25.81] Type 2 diabetes mellitus with diabetic chronic *08/15/2023 Type 2 diabetes mellitus with diabetic peripher*11/05/2022 Carpal tunnel syndrome, right [G56.01] 11/09/2022 Stage 4 chronic kidney disease (HCC) [N18.4] 09/08/2023 Personal history of malignant neoplasm of cervi*09/08/2023 Diagnosed: 1996 Arthritis of left hip [M (more content not included)... Normal [facility] CNOVon 06-19-2024 CNOV Office Visit (GENSWS ) CHARLETTE FARMER ([id number]) 1935 F Date Time Provider Department 06/19/24 11:30 AM MARIAH ODONNELL During your visit today, we recorded the following information about you: Temperature Pulse Blood pressure Weight 97.1 degrees 94/minute 114/62 67.6 kg Height 1.549 m Altagracia Hazel RN 06/19/2024 11:19 AM Signed REVIEW OF SYSTEMS: General: The patient NOTES fatigue, denies weight loss, denies weight gain, denies feeling hot, and denies feelings of cold. Eyes: The patient denies glaucoma, denies eye injury/surgery, wears glasses or contacts. Ear/Nose/Throat: The patient denies allergies, denies hayfever, denies ear infections, and denies bloody noses. Cardiovascular: The patient denies chest pain, denies heart disease, NOTES high blood pressure,denies cardiac stent, denies prior heart attack, denies irregular heart beat, NOTES high cholesterol, denies poor circulation, denies heart failure, other cardiac issues, NOTES claudication, denies cold feet, denies peripheral arterial stent. Respiratory: The patient denies tuberculosis, denies pneumonia, denies frequent cough, denies pulmonary embolism, NOTES shortness of breath, and denies coughing up blood. Gastrointestinal: The patient denies difficulty swallowing, denies acid reflux, denies ulcers, denies vomiting, denies jaundice/hepatitis, NOTES gallbladder problems, denies black or tarry stools, denies hemorrhoids, denies bleeding from rectum, denies diverticulitis, NOTES constipation, NOTES diarrhea, denies loss of stool control, and denies hernias. Kidney/Bladder: The patient NOTES kidney failure, denies urine infections, and denies bloody urine. Skin: The patient denies a history of skin cancer, denies bleeding/changing moles, and denies a history of skin rash. Neurologic: The patient denies a history of epilepsy/convulsions, denies headaches, NOTES head/spinal injuries, and denies stroke/TIA. Psychiatric: The patient denies psychiatric medications, denies depression, and denies voices, denies substance abuse. Endocrine: The patient denies thyroid disorders, NOTES diabetes, and denies hormonal problems. Hematologic: The patient denies a history of bruising, denies bleeding, and NOTES anemia, denies blood clots. Infections: The patient denies a history of measles and mumps, denies rheumatic fever, and denies sexually transmitted diseases. Musculoskeletal: The patient denies back pain/injury, denies back problems, denies sciatica, denies knee/foot trouble, denies arthritis, or NOTES gout. When was patient's last Mammogram screening? 5 YEARS Last Colonoscopy: 01/07/2021 BERNADETTE Rangel Kimberley, VP MARKETING.SHELF FILLER 06/19/2024 11:58 AM Signed HISTORY AND PHYSICAL Charlette Farmer : 1935 REFERRING PHYSICIAN: Tosha Pelaez [address] [place] [id number] CHIEF COMPLAINT: Patient presents with: Consult: colonoscopy HPI: Charlette is a 89 year old female referred for endoscopy. Charlette notes + fecal occult stool. Charlette denies abdominal pain. Charlette denies diarrhea. Charlette denies constipation. Charlette denies a change in bowel habits. Charlette denies melena. Charlette denies bright red blood per rectum. Charlette denies hemorrhoids. Charlette denies heartburn. Charlette denies dysphagia. Charlette denies a history of ulcers/ peptic ulcer disease. Charlette Denies family history of colon issues. Charlette has past medical history significant for DMT2, HTN, CKD stage 3. She denies CP, SOB, dizziness, palpitations, syncope, edema, recent hospitalizations Charlette has undergone prior endoscopy. Last colonoscopy was 12/[address] Phillips at [facility]. Sedation received: Midazolam 2 mg IV, Fentanyl 50 micrograms IV, Diphenhydramine 50 mg IV Impression: - Non-bleeding external and internal hemorrhoids. - Three small polyps in the rectum, removed with a cold snare. Resected and retrieved. PATHOLOGY CONVERTED FINAL DIAGNOSIS Rectum, polypectomy - Tubular adenoma. KL/lbk 01/08/2021 Current Outpatient Medications Medication Sig gabapentin (NEURONTIN) 400 mg capsule Take 1 capsule by mouth two times a day for 180 days. cyanocobalamin (VITAMIN B-12) 1,000 mcg tab Take one tablet every other day Dx: pernicious anemia allopurinol (ZYLOPRIM) 100 mg tablet Take 1 tablet by mouth two times a day. insulin glargine (LANTUS SOLOSTAR U-100 INSULIN) 100 unit/mL (3 mL) Inject 22 Units subcutaneously daily at bedtime. hydroCHLOROthiazide 12.5 mg capsule Take 1 capsule by mouth once daily. lisinopril 2.5 mg tablet Take 1 tablet by mouth once daily. rosuvastatin (CRESTOR) 20 mg tablet Take 1 tablet by mouth daily at bedtime. pramipexole (MIRAPEX) 0.25 mg tablet Take 1 tablet by mouth daily at bedtime. blood sugar diagnostic (TRUE METRIX GLUCOSE TEST STRIP) test strip Test once (more content not included)... [facility]ELSA Tele[facility] (GENNARO) CHARLETTE FARMER ([id number]) 1935 F Date Time Provider Department 06/15/24 TOSHA PELAEZ During your visit today, we recorded the following information about you: Tosha Pelaez APRN.CNP 06/15/2024 10:10 AM Signed Stool sample + for blood- would recommend she see general surgery for possible colonoscopy. If agreeable will place order Tosha Pelaez APRN.Kassandra Crocker LPN 06/15/2024 10:41 AM Signed Patient agreeable to general surgery consult. Patient asking if there is PT she could be doing for her hand neuropathy. She would like to strengthen her hands to decrease the pain. 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 She did have some neuropathy in her leg and she was prescribed gabapentin for. We can always have her come in to see if she is having carpal tunnel issues. Tosha Pelaez APRN.Paris Coronado RN 06/15/2024 12:47 PM Signed Called and left a voicemail for the Patient to call back and ask for a nurse to receive the providers message. BERNADETTE Olmedo Stephanie, RN 06/15/2024 12:52 PM Signed Patient calls back and states that she had carpal tunnel in her right hand last year. Patient states that she can do writing and crocheting. Patient states that on her left hand she has had numbness and no feeling in fingers. Patient states that she can talk to Dr. Fay about this at her appointment in July. Cheryl Billy RN PodlogarTosha APRN.VAMSHI 06/15/2024 1:05 PM Signed Reviewed. Tosha Pelaez APRN.CNP Allergies As of Date: 06/15/2024 Noted Allergy Reaction LIPITOR (ATORVASTATIN) 07/19/2007 5 - Intolerance Comments: myalgia SIMVASTATIN 07/19/2007 5 - Intolerance Comments: myalgia Date Reviewed: 06/06/2024 Reviewed by: Kassandra Harrison LPN - Fully Assessed Reason for Visit: Results [95] Primary Visit Diagnosis:Positive fecal occult blood test [R19.5] Order(s):CONSULT TO GENERAL SURGERY [9011] Order #: [id number]: 1 FUTURE Prescriptions as of 07/03/2024 - gabapentin (NEURONTIN) 400 mg capsule Take 1 capsule by mouth two times a day for 180 days. - cyanocobalamin (VITAMIN B-12) 1,000 mcg tab Take one tablet every other day Dx: pernicious anemia - allopurinol (ZYLOPRIM) 100 mg tablet Take 1 tablet by mouth two times a day. - insulin glargine (LANTUS SOLOSTAR U-100 INSULIN) 100 unit/mL (3 mL) Inject 22 Units subcutaneously daily at bedtime. - hydroCHLOROthiazide 12.5 mg capsule Take 1 capsule by mouth once daily. - lisinopril 2.5 mg tablet Take 1 tablet by mouth once daily. - rosuvastatin (CRESTOR) 20 mg tablet Take 1 tablet by mouth daily at bedtime. - pramipexole (MIRAPEX) 0.25 mg tablet Take 1 tablet by mouth daily at bedtime. - blood sugar diagnostic (TRUE METRIX GLUCOSE TEST STRIP) test strip Test once daily DX:250.02 Insulin: Yes - Lancets lancets Pt requests Truedraw lancets. Test blood sugar(s) 1 times daily. Dx: Other DM Code 250.02 Insulin: Yes - Lancets (ACCU-CHEK SOFTCLIX LANCETS) lancets Use Three times daily to check blood sugar - Insulin Volborg, Disposable, (PEN NEEDLE) 29 gauge x 1/2 One needle once daily. Dx: 250.02 Insulin: yes - Acetaminophen 500 mg cap Take 2 capsules by mouth two times a day as needed for pain. Reports will utilize 1 500mg tab 1-2 times in between the 1000 mg doses - Miscellaneous Medical Supply (BLOOD PRESSURE CUFF) 1 Each once daily. - ondansetron (ZOFRAN) 4 mg tablet Take 4 mg by mouth every 8 hours as needed for nausea/vomiting. - meclizine (ANTIVERT) 25 mg tab Take 25 mg by mouth three times a day. - cephALEXin (KEFLEX) 500 mg capsule Take 500 mg by mouth three times a day. - blood sugar diagnostic (BLOOD GLUCOSE TEST) test strip Test blood sugar(s) 2 times daily. Dx: Type 2 DM - Controlled E11.9 Insulin: Yes - ammonium lactate (LAC-HYDRIN) 12 % lotion Apply 1 application to affected area as needed for Dry Skin. - melatonin 3 mg Take by mouth daily at bedtime. - COMPOUNDED PRESCRIPTION Cock up wrist splint, right Medium. To be worn nightly to prevent carpal tunnel symptoms. Dx: carpal tunnel right - Cholecalciferol, Vitamin D3, 1,000 unit cap Take 1 capsule by mouth once daily. - Blood-Glucose Meter, Drum-type (ACCU-CHEK COMPACT PLUS CARE) Misc Kit 1 Each. Accu-Check Compact Plus Meter Diagnosis: Diabetes Mellitus - ASPIRIN 81 MG TAB Take one (1) tablet daily . Problem List As Of Date 06/15/2024 Noted Resolved Other specified disorders of rotator cuff syndr*02/16/2006 10/18/2016 Malignant neoplasm of corpus uteri, except isth* 11/24/2015 HYPERLIPIDEMIA NEC/NOS [E78.5] 10/14/2015 Lumbago [M54.50] 06/15/2016 DIABETES MELLITUS TYPE II UNCONTR UNCOMPL [IMO0* 07/18/2014 HYPERTENSION NOS [I10] 10/14/2015 Special screening for malignant neopl (more content not included)... [facility]IN [facility] ([facility]) CHARLETTE FARMER ([id number]) 1935 F Date Time Provider Department 06/13/24 TOSHA PELAEZ During your visit today, we recorded the following information about you: Tosha Pelaez APRN.VAMSHI 06/13/2024 7:59 AM Signed B12 level is elevated- she can take her B12 every other day. Ferritin level is elevated however this can increase with inflammation so can recheck in 6 weeks since her wrist was inflamed. Hemoglobin is in normal range. Tosha Pelaez APRN.Marylou Winter RN 06/13/2024 8:44 AM Signed Patient calls and notified of results and providers instructions. Patient verbalizes understanding and will have labs completed prior to seeing Dr. Fay in July. Marylou Sutherland RN Allergies As of Date: 06/13/2024 Noted Allergy Reaction LIPITOR (ATORVASTATIN) 07/19/2007 5 - Intolerance Comments: myalgia SIMVASTATIN 07/19/2007 5 - Intolerance Comments: myalgia Date Reviewed: 06/06/2024 Reviewed by: Kassandra Harrison LPN - Fully Assessed Primary Visit Diagnosis:Elevated ferritin [R79.89] Order(s):FERRITIN [SQFERR] Order #: [id number] FUTURE cyanocobalamin (VITAMIN B-12) 1,000 mcg tabTake one tablet every other day Dx: pernicious anemiaDisp: Rfl: Prescriptions as of 06/13/2024 - cyanocobalamin (VITAMIN B-12) 1,000 mcg tab Take one tablet every other day Dx: pernicious anemia - methylPREDNISolone (MEDROL, YVON,) 4 mg Dose-Pack Follow dosing instructions, take with food. - allopurinol (ZYLOPRIM) 100 mg tablet Take 1 tablet by mouth two times a day. - gabapentin (NEURONTIN) 400 mg capsule Take 1 capsule by mouth two times a day for 30 days. - insulin glargine (LANTUS SOLOSTAR U-100 INSULIN) 100 unit/mL (3 mL) Inject 22 Units subcutaneously daily at bedtime. - hydroCHLOROthiazide 12.5 mg capsule Take 1 capsule by mouth once daily. - lisinopril 2.5 mg tablet Take 1 tablet by mouth once daily. - rosuvastatin (CRESTOR) 20 mg tablet Take 1 tablet by mouth daily at bedtime. - pramipexole (MIRAPEX) 0.25 mg tablet Take 1 tablet by mouth daily at bedtime. - blood sugar diagnostic (TRUE METRIX GLUCOSE TEST STRIP) test strip Test once daily DX:250.02 Insulin: Yes - Lancets lancets Pt requests Truedraw lancets. Test blood sugar(s) 1 times daily. Dx: Other DM Code 250.02 Insulin: Yes - Lancets (ACCU-CHEK SOFTCLIX LANCETS) lancets Use Three times daily to check blood sugar - Insulin Volborg, Disposable, (PEN NEEDLE) 29 gauge x 1/2 One needle once daily. Dx: 250.02 Insulin: yes - Acetaminophen 500 mg cap Take 2 capsules by mouth two times a day as needed for pain. Reports will utilize 1 500mg tab 1-2 times in between the 1000 mg doses - Miscellaneous Medical Supply (BLOOD PRESSURE CUFF) 1 Each once daily. - ondansetron (ZOFRAN) 4 mg tablet Take 4 mg by mouth every 8 hours as needed for nausea/vomiting. - meclizine (ANTIVERT) 25 mg tab Take 25 mg by mouth three times a day. - cephALEXin (KEFLEX) 500 mg capsule Take 500 mg by mouth three times a day. - blood sugar diagnostic (BLOOD GLUCOSE TEST) test strip Test blood sugar(s) 2 times daily. Dx: Type 2 DM - Controlled E11.9 Insulin: Yes - ammonium lactate (LAC-HYDRIN) 12 % lotion Apply 1 application to affected area as needed for Dry Skin. - melatonin 3 mg Take by mouth daily at bedtime. - COMPOUNDED PRESCRIPTION Cock up wrist splint, right Medium. To be worn nightly to prevent carpal tunnel symptoms. Dx: carpal tunnel right - Cholecalciferol, Vitamin D3, 1,000 unit cap Take 1 capsule by mouth once daily. - Blood-Glucose Meter, Drum-type (ACCU-CHEK COMPACT PLUS CARE) Misc Kit 1 Each. Accu-Check Compact Plus Meter Diagnosis: Diabetes Mellitus - ASPIRIN 81 MG TAB Take one (1) tablet daily . Problem List As Of Date 06/13/2024 Noted Resolved Other specified disorders of rotator cuff syndr*02/16/2006 10/18/2016 Malignant neoplasm of corpus uteri, except isth* 11/24/2015 HYPERLIPIDEMIA NEC/NOS [E78.5] 10/14/2015 Lumbago [M54.50] 06/15/2016 DIABETES MELLITUS TYPE II UNCONTR UNCOMPL [IMO0* 07/18/2014 HYPERTENSION NOS [I10] 10/14/2015 Special screening for malignant neoplasms, colo*11/12/2008 11/24/2015 Benign neoplasm of colon [D12.6] 11/12/2008 11/24/2015 Diverticulosis of colon [K57.30] 11/12/2008 Internal hemorrhoids without mention of complic*11/12/2008 10/14/2015 Tubular adenoma of rectum [D12.8] 02/25/2011 11/24/2015 Pernicious anemia [D51.0] 08/25/2012 Medicare annual wellness visit, initial [Z00.00]09/28/2013 11/24/2015 Stage 3b chronic kidney disease (HCC) [N18.32] 04/12/2014 PAD (peripheral artery disease) (HCC) [I73.9] 05/02/2014 Medicare annual wellness visit, subsequent [Z00*10/11/2014 11/24/2015 Diabetes mellitus with neuropathy (HCC) [E11.40]10/11/2014 11/24/2015 Essential hypertension [I10] 10/14/2015 Mixed hyperlipidemia [E78.2] 10/14/2015 DM type 2 wi (more content not included)... Normal [facility] Hemoccult Stl Ql IAon 2023 Lower GI hemoglobin IA Ql (Stl) Positive Abnormal Negative [facility] Comment on above: Order Comment: Speci men Type: BLOOD SPECIMEN Ordering Facility: [facility] Address: [address] [place] [address] Performed By: #### 2 4323-8, 2276-4 #### [facility] CLIA [id number] [address] [place] [address] [id number] [place] [address] [facility] CBC panel Auto (Bld)on 06-12 Erythrocyte distribution width (RBC) [Ratio] 13.9 % 11.5 - 15.0 % [facility] Hematocrit (Bld) [Volume fraction] 38.3 % 36.0 - 46.0 % [facility] Hemoglobin (Bld) [Mass/Vol] 12.7 g/dL 11.5 - 15.5 g/dL [facility] Interpretation and review of laboratory results Normal [facility] MCH (RBC) [Entitic mass] 30.8 pg 26.0 - 34.0 pg [facility] MCHC (RBC) [Mass/Vol] 33.2 g/dL 30.5 - 36.0 g/dL [facility] MCV (RBC) [Entitic vol] 93.0 fL 80.0 - 100.0 fL [facility] Nucleated RBC (Bld) [#/Vol] NINF [facility] Platelet mean volume (Bld) [Entitic vol] 10.6 fL 9.0 - 12.7 fL [facility] Platelets (Bld) [#/Vol] 306 10*3/uL [facility] RBC (Bld) [#/Vol] 4.12 10*6/uL 3.90 - 5.2 0 m/uL [facility] WBC (Bld) [#/Vol] 10.60 10*3/uL [facility] Erythrocyte distribution width (RBC) [Ratio] 13.9 % Normal 11.5-15.0 [facility] Comment on above: Order Comment: Speci men Type: BLOOD SPECIMEN Ordering Facility: [facility] Address: [address] [place] [address] Performed By: #### 5 8410-2 #### [facility] CLIA [id number] [address] [place] [address] [place] Hematocrit (Bld) [Volume fraction] 38.3 % Normal 36.0-46.0 [facility] Comment on above: Order Comment: Speci men Type: BLOOD SPECIMEN Ordering Facility: [facility] Address: [address] [place] [address] Performed By: #### 5 8410-2 #### [facility] CLIA [id number] [address] [place] [address] [place] Hemoglobin (Bld) [Mass/Vol] 12.7 g/dL Normal 11.5-15.5 [facility] Comment on above: Order Comment: Speci men Type: BLOOD SPECIMEN Ordering Facility: [facility] Address: [address] [place] [address] Performed By: #### 5 8410-2 #### [facility] CLIA [id number] [address] [place] [address] [place] MCH (RBC) [Entitic mass] 30.8 pg Normal 26.0-34.0 [facility] Comment on above: Order Comment: Speci men Type: BLOOD SPECIMEN Ordering Facility: [facility] Address: [address] [place] [address] Performed By: #### 5 8410-2 #### [facility] CLIA [id number] [address] [place] [address] [place] MCHC (RBC) [Mass/Vol] 33.2 g/dL Normal 30.5-36.0 [facility] Comment on above: Order Comment: Speci men Type: BLOOD SPECIMEN Ordering Facility: [facility] Address: [address] [place] [address] Performed By: #### 5 8410-2 #### [facility] CLIA [id number] [address] [place] [address] [place] MCV (RBC) [Entitic vol] 93.0 fL Normal 80.0-100.0 C [facility] Comment on above: Order Comment: Speci men Type: BLOOD SPECIMEN Ordering Facility: [facility] Address: [address] [place] [address] Performed By: #### 5 8410-2 #### [facility] CLIA [id number] [address] [place] [address] [place] Nucleated RBC (Bld) [#/Vol] 10*3/uL Normal <0.01 [facility] Comment on above: Order Comment: Speci men Type: BLOOD SPECIMEN Ordering Facility: [facility] Address: [address] [place] [address] Performed By: #### 5 8410-2 #### [facility] CLIA [id number] [address] [place] [address] [place] Platelet mean volume (Bld) [Entitic vol] 10.6 fL Normal 9.0-12.7 [facility] Comment on above: Order Comment: Speci men Type: BLOOD SPECIMEN Ordering Facility: [facility] Address: [address] [place] [address] Performed By: #### 5 8410-2 #### [facility] CLIA [id number] [address] [place] [address] [place] Platelets (Bld) [#/Vol] 306 10*3/uL Normal 150-400 [facility] Comment on above: Order Comment: Speci men Type: BLOOD SPECIMEN Ordering Facility: [facility] Address: [address] [place] [address] Performed By: #### 5 8410-2 #### [facility] CLIA [id number] [address] [place] [address] [place] RBC (Bld) [#/Vol] 4.12 10*6/uL Normal 3.90-5.20 [facility] Comment on above: Order Comment: Speci men Type: BLOOD SPECIMEN Ordering Facility: [facility] Address: [address] [place] [address] Performed By: #### 5 8410-2 #### [facility] CLIA [id number] [address] [place] [address] [place] WBC (Bld) [#/Vol] 10.60 10*3/uL Normal 3.70-11.00 [facility] Comment on above: Order Comment: Speci men Type: BLOOD SPECIMEN Ordering Facility: [facility] Address: [address] [place] [address] Performed By: #### 5 8410-2 #### [facility] CLIA [id number] [address] [place] [address] [place] Ferritin SerPl-mCncon 2023 Ferritin [Mass/Vol] 379.0 ng/mL High 14.7-205.1 [facility] Comment on above: Order Comment: Speci men Type: BLOOD SPECIMEN Ordering Facility: [facility] Address: [address] [place] [address] Performed By: #### 2 4323-8, 2276-4 #### [facility] CLIA [id number] [address] [place] [address] [place] Folate SerPl-mCncon 06-12-20 24 Folate [Mass/Vol] 14.8 ng/mL Normal >4.7 [facility] Comment on above: Order Comment: Speci men Type: BLOOD SPECIMEN Ordering Facility: [facility] Address: [address] [place] [address] Performed By: #### 2 4323-8, 2276-4 #### [facility] CLIA [id number] [address] [place] [address] [place] Iron and Iron binding capaci ty panelon 06-12-2024 Iron [Mass/Vol] 83 ug/dL Normal 41-186 [facility] Comment on above: Order Comment: Speci men Type: BLOOD SPECIMEN Ordering Facility: [facility] Address: [address] [place] [address] Performed By: #### 2 4323-8, 2275- #### [facility] CLIA [id number] [address] [place] [address] [place] Iron binding capacity [Mass/Vol] 291 ug/dL Normal 232-386 [facility] Comment on above: Order Comment: Speci men Type: BLOOD SPECIMEN Ordering Facility: [facility] Address: [address] [place] [address] Performed By: #### 2 4323-8, 2275-12 #### [facility] CLIA [id number] [address] [place] [address] [place] Iron/TIBC [Molar ratio] 28.5 % Normal 15.0-57.0 C [facility] Comment on above: Order Comment: Speci men Type: BLOOD SPECIMEN Ordering Facility: [facility] Address: [address] [place] [address] Performed By: #### 2 4323-8, 2275-12 #### [facility] CLIA [id number] [address] [place] [address] [place] Vit B12 [facility] 024 Cobalamin (Vitamin B12) [Mass/Vol] pg/mL High 232-1245 [facility] Comment on above: Order Comment: Speci men Type: BLOOD SPECIMEN Ordering Facility: [facility] Address: [address] [place] [address] Performed By: #### 2 4323-8, 2275- #### [facility] CLIA [id number] [address] [place] [address] [place] CNPDesiree 06-08-2024 CNPN [facility] MARLENYCHARLETTE ([id number]) 1935 F Date Time Provider Department 06/08/24 TOSHA PELAEZ During your visit today, we recorded the following information about you: Tosha Pelaez APRN.CNP 06/08/2024 1:48 PM Signed Blood work show mild anemia. I have placed order for additional blood work along with stool for blood. Please let her know to shrimp picker kit in lab. Kidney functio has decreased some- recommend avoidance of NSAID products, stay well hydrated and eat low salt diet. Uric acid level is normal. Still awaiting xray results. Has she noticed any improvement in her wrist Tosha Pelaez APRN.Kassandra Crocker LPN 06/08/2024 3:12 PM Signed Telephoned patient. Message left to call office back for update. ROSALINA Baig Laurie Lynn, LPN 06/12/2024 8:23 AM Signed ----- Message from Tosha Pelaez APRN.CNP sent at 06/12/2024 7:46 AM EDT ----- Xray shows some widening in area of where her scapholunate ligament would be. Without injury unsure of the significance of this- has she has any improvement in pain and or swelling? If nor improving will have her see ortho. QUENTIN Ryan Laurie Lynn, LPN 06/12/2024 8:25 AM Signed Left a message for pt to call the office and ask to speak to a nurse. Make sure pt gets both messages below. x-rays and blood work. ROSALINA Steele Amanda, BERNADETTE 06/12/2024 8:37 AM Signed Pt called and is notified of providers results and instructions. Pt voices understanding. Pt states she will come in and get her labs done today and shrimp picker stool kit. Pt reports after the methylprednisolone her wrist is almost back to normal. Paris Umanzor RN Podlogar, MARIO Givens.VAMSHI 06/12/2024 9:10 AM Signed If wrist starts hurting or swelling again let me know. Tosha Podlogar, MARIO.Kassandra Crocker LPN 06/12/2024 10:21 AM Signed Telephoned patient. Message left to call office back for update. ROSALINA Baig Lori, LPN 06/12/2024 11:11 AM Signed Patient at lab appointment and lab called down to office. Spoke with patient and reviewed message with her. Patient voiced understanding. Duyen Bey LPN Allergies As of Date: 06/08/2024 Noted Allergy Reaction LIPITOR (ATORVASTATIN) 07/19/2007 5 - Intolerance Comments: myalgia SIMVASTATIN 07/19/2007 5 - Intolerance Comments: myalgia Date Reviewed: 06/06/2024 Reviewed by: Kassandra Harrison LPN - Fully Assessed Reason for Visit: Results [95] Primary Visit Diagnosis:Mild anemia [D64.9] Order(s):FERRITIN [SQFERR] Order #: [id number] FUTURE IRON AND TIBC [SQIRON] Order #: [id number] FUTURE COMPLETE BLOOD COUNT [SQCBC] Order #: [id number] FUTURE VITAMIN B12 [SQB12] Order #: [id number] FUTURE FOLATE, SERUM [SQSERFOL] Order #: [id number] FUTURE IMMUNOCHEMICAL FECAL OCCULT BLOOD TEST [SQIFOBT] Order #: [id number]. #:[id number] Prescriptions as of 06/12/2024 - methylPREDNISolone (MEDROL, YVON,) 4 mg Dose-Pack Follow dosing instructions, take with food. - allopurinol (ZYLOPRIM) 100 mg tablet Take 1 tablet by mouth two times a day. - gabapentin (NEURONTIN) 400 mg capsule Take 1 capsule by mouth two times a day for 30 days. - insulin glargine (LANTUS SOLOSTAR U-100 INSULIN) 100 unit/mL (3 mL) Inject 22 Units subcutaneously daily at bedtime. - hydroCHLOROthiazide 12.5 mg capsule Take 1 capsule by mouth once daily. - lisinopril 2.5 mg tablet Take 1 tablet by mouth once daily. - rosuvastatin (CRESTOR) 20 mg tablet Take 1 tablet by mouth daily at bedtime. - pramipexole (MIRAPEX) 0.25 mg tablet Take 1 tablet by mouth daily at bedtime. - blood sugar diagnostic (TRUE METRIX GLUCOSE TEST STRIP) test strip Test once daily DX:250.02 Insulin: Yes - Lancets lancets Pt requests Truedraw lancets. Test blood sugar(s) 1 times daily. Dx: Other DM Code 250.02 Insulin: Yes - Lancets (ACCU-CHEK SOFTCLIX LANCETS) lancets Use Three times daily to check blood sugar - Insulin Volborg, Disposable, (PEN NEEDLE) 29 gauge x 1/2 One needle once daily. Dx: 250.02 Insulin: yes - Acetaminophen 500 mg cap Take 2 capsules by mouth two times a day as needed for pain. Reports will utilize 1 500mg tab 1-2 times in between the 1000 mg doses - Miscellaneous Medical Supply (BLOOD PRESSURE CUFF) 1 Each once daily. - ondansetron (ZOFRAN) 4 mg tablet Take 4 mg by mouth every 8 hours as needed for nausea/vomiting. - meclizine (ANTIVERT) 25 mg tab Take 25 mg by mouth three times a day. - cephALEXin (KEFLEX) 500 mg capsule Take 500 mg by mouth three times a day. - blood sugar diagnostic (BLOOD GLUCOSE TEST) test strip Test blood sugar(s) 2 times daily. Dx: Type 2 DM - Controlled E11.9 Insulin: Yes - ammonium lactate (LAC-HYDRIN) 12 % lotion Apply 1 application to affected area as needed for Dry Skin. - melatonin 3 mg Take by mouth daily at b (more content not included)... Normal [facility] CBC W Auto Differential pane l (Bld)on 06-06-2024 Basophils (Bld) [#/Vol] 0.04 10*3/uL [facility] Basophils/100 WBC (Bld) 0.5 % C [facility] Differential cell count method Nom (Bld) Auto [facility] Eosinophils (Bld) [#/Vol] 0.07 10*3/uL [facility] Eosinophils/100 WBC (Bld) 0.9 % [facility] Erythrocyte distribution width (RBC) [Ratio] 14.4 % 11.5 - 15.0 % [facility] Hematocrit (Bld) [Volume fraction] 33.4 % Low 36.0 - 46.0 % [facility] Hemoglobin (Bld) [Mass/Vol] 11.2 g/dL Low 11.5 - 15.5 g/dL [facility] Immature granulocytes (Bld) [#/Vol] NINF [facility] Immature granulocytes/100 WBC (Bld) 0.2 % [facility] Interpretation and review of laboratory results Abnormal [facility] Lymphocytes (Bld) [#/Vol] 1.59 10*3/uL [facility] Lymphocytes/100 WBC (Bld) 19.6 % [facility] MCH (RBC) [Entitic mass] 31.7 pg 26.0 - 34.0 pg [facility] MCHC (RBC) [Mass/Vol] 33.5 g/dL 30.5 - 36.0 g/dL [facility] MCV (RBC) [Entitic vol] 94.6 fL 80.0 - 100.0 fL [facility] Monocytes (Bld) [#/Vol] 0.81 10*3/uL [facility] Monocytes/100 WBC (Bld) 10.0 % [facility] Neutrophils (Bld) [#/Vol] 5.60 10*3/uL [facility] Neutrophils/100 WBC (Bld) 68.8 % [facility] Nucleated RBC (Bld) [#/Vol] [facility] Nucleated RBC/100 WBC (Bld) [Ratio] 0.0 % /100 WBC [facility] Platelet mean volume (Bld) [Entitic vol] 10.7 fL 9.0 - 12.7 fL [facility] Platelets (Bld) [#/Vol] 215 10*3/uL [facility] RBC (Bld) [#/Vol] 3.53 10*6/uL Low 3.90 - 5.2 0 m/uL [facility] WBC (Bld) [#/Vol] 8.13 10*3/uL [facility] Basophils (Bld) [#/Vol] 0.04 10*3/uL Normal <0.11 [facility] Comment on above: Order Comment: Speci men Type: BLOOD SPECIMENOrdering Facility: [facility] Address: [address] [place] [address] Performed By: #### 5 6674-8 ####[facility] LABCLIA [id number] [place] [address] [place] Basophils/100 WBC (Bld) 0.5 % Normal C [facility] Comment on above: Order Comment: Speci men Type: BLOOD SPECIMENOrdering Facility: [facility] Address: [address] [place] [address] Performed By: #### 5 7021-8 ####[facility] LABCLIA [id number] [place] [address] [place] Differential cell count method Nom (Bld) Auto Normal [facility] Comment on above: Order Comment: Speci men Type: BLOOD SPECIMENOrdering Facility: [facility] Address: [address] [place] [address] Performed By: #### 5 7021-8 ####[facility] LABCLIA [id number] [place] [address] [place] Eosinophils (Bld) [#/Vol] 0.07 10*3/uL Normal <0.46 [facility] Comment on above: Order Comment: Speci men Type: BLOOD SPECIMENOrdering Facility: [facility] Address: [address] [place] [address] Performed By: #### 5 7021-8 ####[facility] LABCLIA [id number] [place] [address] [place] Eosinophils/100 WBC (Bld) 0.9 % Normal [facility] Comment on above: Order Comment: Speci men Type: BLOOD SPECIMENOrdering Facility: [facility] Address: [address] [place] [address] Performed By: #### 5 7021-8 ####[facility] LABCLIA [id number] [place] [address] [place] Erythrocyte distribution width (RBC) [Ratio] 14.4 % Normal 11.5-15.0 [facility] Comment on above: Order Comment: Speci men Type: BLOOD SPECIMENOrdering Facility: [facility] Address: [address] [place] [address] Performed By: #### 5 7021-8 ####[facility] LABIA [id number] [place] [address] [place] Hematocrit (Bld) [Volume fraction] 33.4 % Low 36.0-46.0 [facility] Comment on above: Order Comment: Speci men Type: BLOOD SPECIMENOrdering Facility: [facility] Address: [address] [place] [address] Performed By: #### 5 7021-8 ####[facility] LABIA [id number] [place] [address] [place] Hemoglobin (Bld) [Mass/Vol] 11.2 g/dL Low 11.5-15.5 [facility] Comment on above: Order Comment: Speci men Type: BLOOD SPECIMENOrdering Facility: [facility] Address: [address] [place] [address] Performed By: #### 5 7021-8 ####[facility] LABIA [id number] [place] [address] [place] Immature granulocytes (Bld) [#/Vol] 10*3/uL Normal <0.10 [facility] Comment on above: Order Comment: Speci men Type: BLOOD SPECIMENOrdering Facility: [facility] Address: [address] [place] [address] Performed By: #### 5 7021-8 ####[facility] LABIA [id number] [place] [address] [place] Immature granulocytes/100 WBC (Bld) 0.2 % Normal [facility] Comment on above: Order Comment: Speci men Type: BLOOD SPECIMENOrdering Facility: [facility] Address: [address] [place] [address] Performed By: #### 5 7021-8 ####[facility] LABCLIA [id number] [place] [address] [place] Lymphocytes (Bld) [#/Vol] 1.59 10*3/uL Normal 1.00-4.00 [facility] Comment on above: Order Comment: Speci men Type: BLOOD SPECIMENOrdering Facility: [facility] Address: [address] [place] [address] Performed By: #### 5 7021-8 ####[facility] LABIA [id number] [place] [address] [place] Lymphocytes/100 WBC (Bld) 19.6 % Normal [facility] Comment on above: Order Comment: Speci men Type: BLOOD SPECIMENOrdering Facility: [facility] Address: [address] [place] [address] Performed By: #### 5 7021-8 ####[facility] LABIA [id number] [place] [address] [place] MCH (RBC) [Entitic mass] 31.7 pg Normal 26.0-34.0 [facility] Comment on above: Order Comment: Speci men Type: BLOOD SPECIMENOrdering Facility: [facility] Address: [address] [place] [address] Performed By: #### 5 7021-8 ####[facility] LABIA [id number] [place] [address] [place] MCHC (RBC) [Mass/Vol] 33.5 g/dL Normal 30.5-36.0 [facility] Comment on above: Order Comment: Speci men Type: BLOOD SPECIMENOrdering Facility: [facility] Address: [address] [place] [address] Performed By: #### 5 7021-8 ####[facility] LABIA [id number] [place] [address] [place] MCV (RBC) [Entitic vol] 94.6 fL Normal 80.0-100.0 C [facility] Comment on above: Order Comment: Speci men Type: BLOOD SPECIMENOrdering Facility: [facility] Address: [address] [place] [address] Performed By: #### 5 7021-8 ####[facility] LABCLIA [id number] [place] [address] [place] Monocytes (Bld) [#/Vol] 0.81 10*3/uL Normal <0.87 [facility] Comment on above: Order Comment: Speci men Type: BLOOD SPECIMENOrdering Facility: [facility] Address: [address] [place] [address] Performed By: #### 5 7021-8 ####[facility] LABCLIA [id number] [place] [address] [place] Monocytes/100 WBC (Bld) 10.0 % Normal C [facility] Comment on above: Order Comment: Speci men Type: BLOOD SPECIMENOrdering Facility: [facility] Address: [address] [place] [address] Performed By: #### 5 7021-8 ####[facility] LABCLIA [id number] [place] [address] [place] Neutrophils (Bld) [#/Vol] 5.60 10*3/uL Normal 1.45-7.50 [facility] [place] Comment on above: Order Comment: Speci men Type: BLOOD SPECIMENOrdering Facility: [facility] Address: [address] [place] [address] Performed By: #### 5 7021-8 ####[facility] LABCLIA [id number] [place] [address] [place] Neutrophils/100 WBC (Bld) 68.8 % Normal [facility] Comment on above: Order Comment: Speci men Type: BLOOD SPECIMENOrdering Facility: [facility] Address: [address] [place] [address] Performed By: #### 5 7021-8 ####[facility] LABCLIA [id number] [place] [address] [place] Nucleated RBC (Bld) [#/Vol] 10*3/uL Normal <0.01 [facility] Comment on above: Order Comment: Speci men Type: BLOOD SPECIMENOrdering Facility: [facility] Address: [address] [place] [address] Performed By: #### 5 7021-8 ####[facility] LABCLIA [id number] [place] [address] [place] Nucleated RBC/100 WBC (Bld) [Ratio] 0.0 /100 WBC Normal [facility] Comment on above: Order Comment: Speci men Type: BLOOD SPECIMENOrdering Facility: [facility] Address: [address] [place] [address] Performed By: #### 5 7021-8 ####[facility] LABIA [id number] [place] [address] [place] Platelet mean volume (Bld) [Entitic vol] 10.7 fL Normal 9.0-12.7 [facility] Comment on above: Order Comment: Speci men Type: BLOOD SPECIMENOrdering Facility: [facility] Address: [address] [place] [address] Performed By: #### 5 7021-8 ####[facility] LABIA [id number] [place] [address] [place] Platelets (Bld) [#/Vol] 215 10*3/uL Normal 150-400 [facility] Comment on above: Order Comment: Speci men Type: BLOOD SPECIMENOrdering Facility: [facility] Address: [address] [place] [address] Performed By: #### 5 7021-8 ####[facility] LABIA [id number] [place] [address] [place] RBC (Bld) [#/Vol] 3.53 10*6/uL Low 3.90-5.20 [facility] Comment on above: Order Comment: Speci men Type: BLOOD SPECIMENOrdering Facility: [facility] Address: [address] [place] [address] Performed By: #### 5 7021-8 ####[facility] LABCLIA [id number] [address] [place] WBC (Bld) [#/Vol] 8.13 10*3/uL Normal 3.70-11.00 [facility] Comment on above: Order Comment: Speci men Type: BLOOD SPECIMENOrdering Facility: [facility] Address: [address] [place] [address] Performed By: #### 5 7021-8 ####[facility] LABCLIA [id number] [address] [place] CNOVon 06-06-2024 [facility] CHARLETTE FARMER ([id number]) 1935 F Date Time Provider Department 06/06/24 12:20 PM TOSHA PELAEZ During your visit today, we recorded the following information about you: Pulse Respiration Blood pressure Weight 80/minute 18/minute 122/70 67.4 kg Tosha Pelaez APRN.CNP 06/06/2024 1:24 PM Signed 06/06/2024 Patient presents with: Wrist Pain: Right wrist x2 days SUBJECTIVE: This is a 89 year old that is here today for Above Complaints. ONSET: right wrist LOCATION: two days DURATION: constant CHARACTERISTICS: dull ache AGGRAVATING FEATURES: grasping items or picking items up, crocheting ALLEVIATING FEATURES: brace she has been wearing RADIATION:none + redness which she reports is improving Hx of gout right index finger Denies past/present injury, fevers, skin cut, extremity numbness, tingling or weakness PAST MEDICAL HISTORY Diagnosis Date Arthritis Benign neoplasm of colon Carpal tunnel syndrome, right Chronic kidney disease, stage 3 (HCC) Diverticulitis 10/10/2020 Diverticulosis of colon (without mention of hemorrhage) Gout History of transfusion Internal hemorrhoids without mention of complication Lumbago Malignant neoplasm of corpus uteri, except isthmus (HCC) 1996 Uterine cancer Other and unspecified hyperlipidemia PAD (peripheral artery disease) ([facility]) 2013 Mild LLE Pernicious anemia Restless leg syndrome Rotator cuff tendinitis left Trigger finger, right middle finger Seen by Dr. Burns 2015 Type II or unspecified type diabetes mellitus without mention of complication, uncontrolled Unspecified essential hypertension ALLERGIES Lipitor [Atorvastatin] and Simvastatin MEDICATIONS Current Outpatient Medications Medication Sig allopurinol (ZYLOPRIM) 100 mg tablet Take 1 tablet by mouth two times a day. gabapentin (NEURONTIN) 400 mg capsule Take 1 capsule by mouth two times a day for 30 days. insulin glargine (LANTUS SOLOSTAR U-100 INSULIN) 100 unit/mL (3 mL) Inject 22 Units subcutaneously daily at bedtime. hydroCHLOROthiazide 12.5 mg capsule Take 1 capsule by mouth once daily. lisinopril 2.5 mg tablet Take 1 tablet by mouth once daily. rosuvastatin (CRESTOR) 20 mg tablet Take 1 tablet by mouth daily at bedtime. pramipexole (MIRAPEX) 0.25 mg tablet Take 1 tablet by mouth daily at bedtime. blood sugar diagnostic (TRUE METRIX GLUCOSE TEST STRIP) test strip Test once daily DX:250.02 Insulin: Yes Lancets lancets Pt requests Truedraw lancets. Test blood sugar(s) 1 times daily. Dx: Other DM Code 250.02 Insulin: Yes Lancets (ACCU-CHEK SOFTCLIX LANCETS) lancets Use Three times daily to check blood sugar Insulin Volborg, Disposable, (PEN NEEDLE) 29 gauge x 1/2 One needle once daily. Dx: 250.02 Insulin: yes Acetaminophen 500 mg cap Take 2 capsules by mouth two times a day as needed for pain. Reports will utilize 1 500mg tab 1-2 times in between the 1000 mg doses Miscellaneous Medical Supply (BLOOD PRESSURE CUFF) 1 Each once daily. ondansetron (ZOFRAN) 4 mg tablet Take 4 mg by mouth every 8 hours as needed for nausea/vomiting. meclizine (ANTIVERT) 25 mg tab Take 25 mg by mouth three times a day. cephALEXin (KEFLEX) 500 mg capsule Take 500 mg by mouth three times a day. (Patient not taking: Reported on 04/06/2024) blood sugar diagnostic (BLOOD GLUCOSE TEST) test strip Test blood sugar(s) 2 times daily. Dx: Type 2 DM - Controlled E11.9 Insulin: Yes ammonium lactate (LAC-HYDRIN) 12 % lotion Apply 1 application to affected area as needed for Dry Skin. melatonin 3 mg Take by mouth daily at bedtime. COMPOUNDED PRESCRIPTION Cock up wrist splint, right Medium. To be worn nightly to prevent carpal tunnel symptoms. Dx: carpal tunnel right Cholecalciferol, Vitamin D3, 1,000 unit cap Take 1 capsule by mouth once daily. cyanocobalamin (VITAMIN B-12) 1,000 mcg Tab Take 1 tablet by mouth once daily. Dx: pernicious anemia Blood-Glucose Meter, Drum-type (ACCU-CHEK COMPACT PLUS CARE) Misc Kit 1 Each. Accu-Check Compact Plus Meter Diagnosis: Diabetes Mellitus ASPIRIN 81 MG TAB Take one (1) tablet daily . No current facility-administered medications for this visit. Medications and allergies reviewed by this provider. SOCIAL HISTORY Social History Tobacco Use Smoking status: Former Current packs/day: 0.00 Average packs/day: 1 pack/day for 21.0 years (21.0 ttl pk-yrs) Types: Cigarettes Start date: 11/23/1952 Quit date: 09/19/1973 Years since quittin.7 Smokeless tobacco: Never Vaping Use Vaping status: Never Used Substance Use Topics Alcohol use: Yes Comment: occas glass of wine Drug use: No REVIEW OF SYSTEMS All other reviewed and negative other than HPI. OBJECTIVE: BP 122/70 Pulse 80 Resp 18 Wt 67.4 kg (148 lb 9.4 oz) SpO2 94% BMI 28.08 kg/m? . Vital signs reviewed by this provider. AP (more content not included)... Normal [facility] metabolic 2000 panelon 06-06-2024 Albumin [Mass/Vol] 4.2 g/dL Normal 3.9-4.9 [facility] Comment on above: Order Comment: Speci men Type: BLOOD SPECIMEN [facility] Address: [address] [id number] Performed By: #### 2 4323-8, 3083- #### [facility] CLIA [id number] [address] [id number] [place] ALP [Catalytic activity/Vol] 83 U/L Normal 34-123 [facility] Comment on above: Order Comment: Speci men Type: BLOOD SPECIMEN [facility] Address: [address] [id number] Performed By: #### 2 4323-8, 3083- #### [facility] CLIA [id number] [address] [place], [place] [address] [place] ALT [Catalytic activity/Vol] 11 U/L Normal 7-38 [facility] Comment on above: Order Comment: Speci men Type: BLOOD SPECIMEN [facility] Address: [address] [id number] Performed By: #### 2 4323-8, 3083- #### [facility] CLIA [id number] [address] [place], [place] [address] [place] Anion gap [Moles/Vol] 15 mmol/L Normal 8-15 [facility] Comment on above: Order Comment: Speci men Type: BLOOD SPECIMEN [facility] Address: [address] [place] [address] Performed By: #### 2 4323-8, 3083- #### [facility] CLIA [id number] [address] [place], [place] [address] [place] AST [Catalytic activity/Vol] 19 U/L Normal 13-35 [facility] Comment on above: Order Comment: Speci men Type: BLOOD SPECIMEN [facility] Address: [address] [place] [address] Performed By: #### 2 4323-8, 3083- #### [facility] CLIA [id number] [address] [place] [address] [place] Bilirubin [Mass/Vol] 0.4 mg/dL Normal 0.2-1.3 [facility] Comment on above: Order Comment: Speci men Type: BLOOD SPECIMEN [facility] Address: [address] [place] [address] Performed By: #### 2 4323-8, 3083-09 #### [facility] CLIA [id number] [address] [place] [address] [place] Calcium [Mass/Vol] 9.7 mg/dL Normal 8.5-10.2 [facility] Comment on above: Order Comment: Speci men Type: BLOOD SPECIMEN [facility] Address: [address] [place] [address] Performed By: #### 2 4323-8, 3083-09 #### [facility] CLIA [id number] [address] [place] [address] [place] Chloride [Moles/Vol] 99 mmol/L Normal 98-107 [facility] Comment on above: Order Comment: Speci men Type: BLOOD SPECIMEN [facility] Address: [address] [place] [address] Performed By: #### 2 4323-8, 3083-09 #### [facility] CLIA [id number] [address] [place] [address] [place] CO2 [Moles/Vol] 22 mmol/L Normal 22-30 [facility] Comment on above: Order Comment: Speci men Type: BLOOD SPECIMEN [facility] Address: [address] [place], [place] [address] Performed By: #### 2 4323-8, 3083- #### [facility] CLIA [id number] [address] [place] [address] [place] Creatinine [Mass/Vol] 1.13 mg/dL High 0.58-0.96 [facility] Comment on above: Order Comment: Romelia andres Type: BLOOD SPECIMEN [facility] Address: [address] [place] [address] Performed By: #### 2 4323-8, 3083-1 #### [facility] CLIA [id number] [address] [place] [address] [place] Creatinine and Glomerular filtration rate.predicted panel (S/P/Bld) 47 mL/min/1.73m??? Low >=60 [facility] Comment on above: Order Comment: Romelia andres Type: BLOOD SPECIMEN [facility] Address: [address] [place] [address] Result Comment: [place] mated Glomerular Filtration Rate (eGFR) is calculated using the 2020 CKD-EPI creatinine equation. This equation utilizes serum creatinine, sex, and age as parameters. The creatinine assay has traceable calibration to isotope dilution-mass spectrometry. Refer to KDIGO guidelines for clinical interpretation. In patients with unstable renal function, e.g. those with acute kidney injury, the eGFR may not accurately reflect actual GFR. Performed By: #### 2 4323-8, 3083- #### [facility] CLIA [id number] [address] [place] [address] [place] Glucose [Mass/Vol] 131 mg/dL High 74-99 [facility] Comment on above: Order Comment: Romelia andres Type: BLOOD SPECIMEN [facility] Address: [address] [place] [address] Result Comment: The [place] Diabetes [employer] (ADA) provides guidance for cutoff values for fasting glucose and random glucose. The ADA defines fasting as no caloric intake for at least 8 hours. Fasting plasma glucose results between 100 to 125 mg/dL indicate increased risk for diabetes (prediabetes). Fasting plasma glucose results greater than or equal to 126 mg/dL meet the criteria for diagnosis of diabetes. In the absence of unequivocal hyperglycemia, results should be confirmed by repeat testing. In a patient with classic symptoms of hyperglycemia or hyperglycemic crisis, random plasma glucose results greater than or equal to 200 mg/dL meet the criteria for diagnosis of diabetes. Reference: Standards of Medical Care in Diabetes 2016, [place] [employer] Association. Diabetes Care. 2016.39(Suppl 1). Performed By: #### 2 4323-8, 3083- #### [facility] CLIA [id number] [address] [place] [address] [place] Potassium [Moles/Vol] 3.7 mmol/L Normal 3.7-5.1 [facility] Comment on above: Order Comment: Speci men Type: BLOOD SPECIMEN [facility] Address: [address] [place] [address] Performed By: #### 2 4323-8, 3083-09 #### [facility] CLIA [id number] [address] [place] [address] [place] Protein [Mass/Vol] 7.0 g/dL Normal 6.3-8.0 [facility] Comment on above: Order Comment: Speci men Type: BLOOD SPECIMEN [facility] Address: [address] [place] [address] Performed By: #### 2 4323-8, 3083-09 #### [facility] CLIA [id number] [address] [place] [address] [place] Sodium [Moles/Vol] 136 mmol/L Normal 136-144 [facility] Comment on above: Order Comment: Speci men Type: BLOOD SPECIMEN [facility] Facility: [facility] Address: [address] [place], [place] [id number] Performed By: #### 2 4323-8, 3083-09 #### [facility] CLIA [id number] [address] [place], [place] [address] [place] Urea nitrogen [Mass/Vol] 24 mg/dL High 7-21 [facility] Comment on above: Order Comment: Speci men Type: BLOOD SPECIMEN [facility]: [facility] Address: [address] [place] [address] Performed By: #### 2 4323-8, 3084-1 #### [facility] CLIA [id number] [address] [place] [address] [place] Urate SerPl-mCncon Urate [Mass/Vol] 4.1 mg/dL Normal 2.5-6.6 [facility] Comment on above: Order Comment: Speci men Type: BLOOD SPECIMEN [facility]: [facility] Address: [address] [place] [address] Performed By: #### 2 4323-8, 3084-1 #### [facility] CLIA [id number] [address] [place] [address] [place] XR WRIST 3V PA/LAT/OBL RTon 06-06-2024 XR WRIST 3V PA/LAT/OBL RT * * *Final Report* * * DATE OF EXAM: Jun 06 2024 1:14PM WOX [id number] - XR WRIST 3V PA/LAT/OBL RT / PROCEDURE REASON: multiple diagnoses * * * * Physician Interpretation * * * * EXAMINATION / TECHNIQUE: XR WRIST 3V PA/LAT/OBL RT HISTORY: Acute right wrist pain and swelling, no known injury. Pain and swelling of right wrist Pain and swelling of right wrist . COMPARISON: None RESULT: There is scapholunate widening. Degenerative changes at the triscaphe joint and first CMC joint. Degenerative changes also present at the first MCP joint. No acute fracture is identified. Joint space narrowing at the radiocarpal joint. IMPRESSION: Scapholunate widening. Correlate for scapholunate ligament injury. Degenerative changes otherwise. Jet Inspector: PSCB Transcribe Date/Time: Jun 11 2024 6:44P Dictated by : DARIO FRANKLIN MD This examination was interpreted and the report reviewed and electronically signed by: DARIO FRANKLIN MD on Jun 11 2024 6:47PM EST [id number] Normal [facility] CNOVon 05-16-2024 CNOV Office Visit ([facility] ) MARLENYCHARLETTE ([id number]) 1935 F Date Time Provider Department 05/16/24 10:40 AM TOSHA PELAEZ During your visit today, we recorded the following information about you: Pulse Respiration Blood pressure Weight 99/minute 18/minute 112/60 67.9 kg Tosha Pelaez APRN.CNP 05/16/2024 11:14 AM Signed 05/16/2024 Patient presents with: F/U 3 Month SUBJECTIVE: This is a 89 year old that is here today for Above Complaints. Since last office visis has been in good health without ER visits or hospitalizations DIABETES MELLITUS: Since our last visit she denies excessive thirst or increased frequency of urination, chest pain or dyspnea , numbness, tingling or pain in extremities, new or unusual visual symptoms, low sugar/hypoglycemic reactions, weight loss/gain, lightheadedness/dizzin ess, and bowel changes/loose stools Follows a diabetic diet some of the time. She is compliant with medication(s) and is tolerating med(s) without any side effects. She reports checking her glucose on a once a day schedule with sugars in the fasting 72-220 with most in the 120-150 range. Patient's last HgA1C was Hemoglobin A1C (%) Date Value 05/15/2024 8.3 12/20/2023 6.5 11/03/2021 7.9 07/22/2021 7.8 ) Last Ophthalmology exam was within the past 12 months Last Podiatry exam was within the past 3 months HTN: Patient is compliant with meds Yes Monitors bp at home: No. Denies side effects: No. Chest pain: No. Dyspnea: No. Edema: No. Palpitations: No. Syncope: No. Headache: No. Dizziness: No. HYPERLIPIDEMIA: Patient is taking medications: Yes. Patient is watching diet: Yes. Patient denies myalgias: Yes. Patient denies gi upset: Yes Only took gabapentin for a month but then stopped because she ran out. Doesn't think it helped a whole lot Has rash under her abdomen. She wears a brief all day. Area can be itchy PAST MEDICAL HISTORY No date: Arthritis No date: Benign neoplasm of colon No date: Carpal tunnel syndrome, right No date: Chronic kidney disease, stage 3 ([facility]) 10/10/2020: Diverticulitis No date: Diverticulosis of colon (without mention of hemorrhage) No date: Gout No date: History of transfusion No date: Internal hemorrhoids without mention of complication No date: Lumbago 1996: Malignant neoplasm of corpus uteri, except isthmus ([facility]) Comment: Uterine cancer No date: Other and unspecified hyperlipidemia 2013: PAD (peripheral artery disease) ([facility]) Comment: Mild LLE No date: Pernicious anemia No date: Restless leg syndrome No date: Rotator cuff tendinitis Comment: left No date: Trigger finger, right middle finger Comment: Seen by Dr. Burns 2015 No date: Type II or unspecified type diabetes mellitus without mention of complication, uncontrolled No date: Unspecified essential hypertension ALLERGIES Lipitor [Atorvastatin] and Simvastatin MEDICATIONS Current Outpatient Medications Medication Sig hydroCHLOROthiazide 12.5 mg capsule Take 1 capsule by mouth once daily. lisinopril 2.5 mg tablet Take 1 tablet by mouth once daily. rosuvastatin (CRESTOR) 20 mg tablet Take 1 tablet by mouth daily at bedtime. insulin glargine (LANTUS SOLOSTAR U-100 INSULIN) 100 unit/mL (3 mL) Inject 20 Units subcutaneously daily at bedtime. gabapentin (NEURONTIN) 400 mg capsule Take 1 capsule by mouth two times a day for 90 days. pramipexole (MIRAPEX) 0.25 mg tablet Take 1 tablet by mouth daily at bedtime. blood sugar diagnostic (TRUE METRIX GLUCOSE TEST STRIP) test strip Test once daily DX:250.02 Insulin: Yes Lancets lancets Pt requests Truedraw lancets. Test blood sugar(s) 1 times daily. Dx: Other DM Code 250.02 Insulin: Yes Lancets (ACCU-CHEK SOFTCLIX LANCETS) lancets Use Three times daily to check blood sugar Insulin Volborg, Disposable, (PEN NEEDLE) 29 gauge x 1/2 One needle once daily. Dx: 250.02 Insulin: yes Acetaminophen 500 mg cap Take 2 capsules by mouth two times a day as needed for pain. Reports will utilize 1 500mg tab 1-2 times in between the 1000 mg doses Miscellaneous Medical Supply (BLOOD PRESSURE CUFF) 1 Each once daily. ondansetron (ZOFRAN) 4 mg tablet Take 4 mg by mouth every 8 hours as needed for nausea/vomiting. meclizine (ANTIVERT) 25 mg tab Take 25 mg by mouth three times a day. cephALEXin (KEFLEX) 500 mg capsule Take 500 mg by mouth three times a day. (Patient not taking: Reported on 04/06/2024) blood sugar diagnostic (BLOOD GLUCOSE TEST) test strip Test blood sugar(s) 2 times daily. Dx: Type 2 DM - Controlled E11.9 Insulin: Yes allopurinol (ZYLOPRIM) 100 mg tablet Take 1 tablet by mouth two times a day. ammonium lactate (LAC-HYDRIN) 12 % lotion Apply 1 application to affected area as needed for Dry Skin. melatonin 3 mg Take by mouth daily at bedtime. COMPOUNDED PRESCRIPTION Cock up wrist splint, right Medium. To be (more content not included)... Normal [facility] Comprehensive metabolic 2000 panelon 05-15-2024 Albumin [Mass/Vol] 4.7 g/dL Normal 3.9-4.9 [facility] Comment on above: Order Comment: Speci men Type: BLOOD SPECIMEN Ordering Facility: [facility] Address: [address] [place] [address] Performed By: #### 2 4323-8, 2275-12 #### [facility] CLIA [id number] [address] [place] [address] [place] ALP [Catalytic activity/Vol] 77 U/L Normal 34-123 [facility] Comment on above: Order Comment: Speci men Type: BLOOD SPECIMEN Ordering Facility: [facility] Address: [address] [place] [address] Performed By: #### 2 4323-8, 2275- #### [facility] CLIA [id number] [address] [place] [address] [place] ALT [Catalytic activity/Vol] 9 U/L Normal 7-38 [facility] Comment on above: Order Comment: Speci men Type: BLOOD SPECIMEN Ordering Facility: [facility] Address: [address] [place] [address] Performed By: #### 2 4323-8, 2275- #### [facility] CLIA [id number] [address] [place], [place] [id number] [place] Anion gap [Moles/Vol] 13 mmol/L Normal 8-15 [facility] Comment on above: Order Comment: Speci men Type: BLOOD SPECIMEN Ordering Facility: [facility] Address: [address] [place] [address] Performed By: #### 2 4323-8, 2275-12 #### [facility] CLIA [id number] [address] [place] [address] [place] AST [Catalytic activity/Vol] 19 U/L Normal 13-35 [facility] Comment on above: Order Comment: Speci men Type: BLOOD SPECIMEN Ordering Facility: [facility] Address: [address] [place] [address] Performed By: #### 2 4323-8, 2275-12 #### [facility] CLIA [id number] [address] [place] [address] [place] Bilirubin [Mass/Vol] 0.2 mg/dL Normal 0.2-1.3 [facility] Comment on above: Order Comment: Speci men Type: BLOOD SPECIMEN Ordering Facility: [facility] Address: [address] [place] [place] [id number] Performed By: #### 2 4323-8, 2275- #### [facility] CLIA [id number] [address] [place] [address] [place] Calcium [Mass/Vol] 9.9 mg/dL Normal 8.5-10.2 [facility] Comment on above: Order Comment: Speci men Type: BLOOD SPECIMEN Ordering Facility: [facility] Address: [address] [place], [place] [id number] Performed By: #### 2 4323-8, 6-4 #### [facility] CLIA [id number] [address] [place] [address] [place] Chloride [Moles/Vol] 100 mmol/L Normal 98-107 [facility] Comment on above: Order Comment: Speci men Type: BLOOD SPECIMEN Ordering Facility: [facility] Address: [address] [place] [address] Performed By: #### 2 4323-8, 2275-4 #### [facility] CLIA [id number] [address] [place] [address] [place] CO2 [Moles/Vol] 25 mmol/L Normal 22-30 [facility] Comment on above: Order Comment: Speci men Type: BLOOD SPECIMEN Ordering Facility: [facility] Address: [address] [place] [address] Performed By: #### 2 4323-8, 2275-4 #### [facility] CLIA [id number] [address] [place] [address] [place] Creatinine [Mass/Vol] 1.06 mg/dL High 0.58-0.96 [facility] Comment on above: Order Comment: Speci men Type: BLOOD SPECIMEN Ordering Facility: [facility] Address: [address] [place] [address] Performed By: #### 2 4323-8, 2275-4 #### [facility] CLIA [id number] [address] [place] [address] [place] Creatinine and Glomerular filtration rate.predicted panel (S/P/Bld) 50 mL/min/1.73m??? Low >=60 [facility] Comment on above: Order Comment: Speci men Type: BLOOD SPECIMEN Ordering Facility: [facility] Address: [address] [place] [address] Result Comment: Madison mated Glomerular Filtration Rate (eGFR) is calculated using the 2020 CKD-EPI creatinine equation. This equation utilizes serum creatinine, sex, and age as parameters. The creatinine assay has traceable calibration to isotope dilution-mass spectrometry. Refer to KDIGO guidelines for clinical interpretation. In patients with unstable renal function, e.g. those with acute kidney injury, the eGFR may not accurately reflect actual GFR. Performed By: #### 2 4323-8, 2275- #### [facility] CLIA [id number] [address] [place] [address] [place] Glucose [Mass/Vol] 150 mg/dL High 74-99 [facility] Comment on above: Order Comment: Romelia andres Type: BLOOD SPECIMEN Ordering Facility: [facility] Address: [address] [place] [address] Result Comment: The [place] Diabetes Association (ADA) provides guidance for cutoff values for fasting glucose and random glucose. The ADA defines fasting as no caloric intake for at least 8 hours. Fasting plasma glucose results between 100 to 125 mg/dL indicate increased risk for diabetes (prediabetes). Fasting plasma glucose results greater than or equal to 126 mg/dL meet the criteria for diagnosis of diabetes. In the absence of unequivocal hyperglycemia, results should be confirmed by repeat testing. In a patient with classic symptoms of hyperglycemia or hyperglycemic crisis, random plasma glucose results greater than or equal to 200 mg/dL meet the criteria for diagnosis of diabetes. Reference: Standards of Medical Care in Diabetes 2016, [place] Diabetes Association. Diabetes Care. 2016.39(Suppl 1). Performed By: #### 2 4323-8, 2275-12 #### [facility] CLIA [id number] [address] [place] [address] [place] Potassium [Moles/Vol] 4.3 mmol/L Normal 3.7-5.1 [facility] Comment on above: Order Comment: Romelia andres Type: BLOOD SPECIMEN Ordering Facility: [facility] Address: [address] [place], [place] [id number] Performed By: #### 2 4323-8, 2275- #### [facility] CLIA [id number] [address] [place] [address] [place] Protein [Mass/Vol] 7.2 g/dL Normal 6.3-8.0 [facility] Comment on above: Order Comment: Speci men Type: BLOOD SPECIMEN Ordering Facility: [facility] Address: [address] [place] [address] Performed By: #### 2 4323-8, 6-4 #### [facility] CLIA [id number] [address] [place] [address] [place] Sodium [Moles/Vol] 138 mmol/L Normal 136-144 [facility] Comment on above: Order Comment: Speci men Type: BLOOD SPECIMEN Ordering Facility: [facility] Address: [address] [place] [address] Performed By: #### 2 4323-8, 2275-4 #### [facility] CLIA [id number] [address] [place] [address] [place] Urea nitrogen [Mass/Vol] 17 mg/dL Normal 7-21 [facility] Comment on above: Order Comment: Speci men Type: BLOOD SPECIMEN Ordering Facility: [facility] Address: [address] [place] [address] Performed By: #### 2 4323-8, 2275-12 #### [facility] CLIA [id number] [address] [place] [address] [place] HbA1c (Bld)on 05-15-2024 Average glucose Estimated from glycated hemoglobin (Bld) [Mass/Vol] 192 mg/dL Normal [facility] Comment on above: Order Comment: Speci men Type: BLOOD SPECIMEN Ordering Facility: [facility] Address: [address] [place] [address] Result Comment: eAG: (Estimated average glucose) is a calculated value from HgbA1c and is community health program representative of the average blood glucose level in the last 2-3 month period. Performed By: #### 5 5454-3 #### [facility] CLIA [id number] [address] [place] [address] [place] HbA1c (Bld) [Mass fraction] 8.3 % High 4.3-5.6 [facility] Comment on above: Order Comment: Calini men Type: BLOOD SPECIMEN Ordering Facility: [facility] Address: [address] [place] [address] Result Comment: [place] Diabetes Association guidelines indicate that patients with HgbA1c in the range 5.7-6.4% are at increased risk for development of diabetes, and intervention by lifestyle modification may be beneficial. HgbA1c greater or equal to 6.5% is considered diagnostic of diabetes. Performed By: #### 5 5454-3 #### [facility] CLIA [id number] [address] [place], [place] [address] [address] [place] CNOVon 04-06-2024 CNOV Office Visit (PODIWS ) CHARLETTE FARMER ([id number]) 1935 F Date Time Provider Department 04/06/24 1:00 PM KAREL SANTIAGO During your visit today, we recorded the following information about you: Paris Ceja, BERNADETTE 04/06/2024 1:53 PM Signed Patient presents with: Left Foot - Established Patient, Follow Up, Diabetic Foot Check Right Foot - Established Patient, Follow Up, Diabetic Foot Check Patient presents for follow up diabetic foot care/exam. MADISYN 12/30/23 Karel Santiago 04/06/2024 1:53 PM Signed Last saw pcp: 02/14/24 Subjective: Patient presents to clinic c/o painful toenails. They state that the nails are especially painful with shoe gear and pressure. Patient states that nails 1-5 b/l are painful. Patient admits to being diabetic. No other pedal complaints at this time. Patient states no change in medications or medical history since last visit. Objective: Patient presents to clinic ambulating in [facility] Vasc: DP and PT pulses are palpable bilateral. CFT is less than 5 seconds bilateral. Skin temperature is warm to cool proximal to distal bilateral. There is mild edema or varicosities noted. Neuro: Protective sensation is intact to the foot and toes when tested with the 5.07 SWM bilateral. Vibratory sensation is decreased at the hallux IPJ bilateral. The hallux is downgoing bilateral. Derm: Nails 1-5 b/l are painful, discolored-yellow, thick, crumbly, dystrophic and with subungal debris. Skin is of normal turgor, texture and hair growth is present bilateral. There are no hyperkeratosis, ulcerations, scars, verruca or other lesions noted. Ortho: Muscle strength is 5/5 for all pedal groups tested. Ankle joint DF is decreased with the knee extended with no pain or crepitus noted. 1st MPJ ROM is decreased bilateral. 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 Nails 1-5 bilateral were debrided in length and thickness. Patient was instructed on the continued importance of diabetic foot care along with proper diet and keeping their blood sugar under control to prevent complications. Reinforced need for daily foot inspection and need to avoid barefoot walking. Patient is to RTC in 3-4 months. LOLA Seymour Matthew 04/06/2024 1:38 PM Signed Diabetes Foot Care Instructions When you have diabetes, proper foot care is very important. Poor foot care may lead to amputation of a foot or leg. As a person with diabetes, you are more vulnerable to foot problems, because diabetes can damage your nerves and reduce blood flow to your feet. Here are some diabetes foot care tips to follow: Wash and Dry Your Feet Daily Use mild soaps Use warm water Pat your skin dry; do not rub. Thoroughly dry your feet. After washing, use lotion on your feet to prevent cracking. Do not put lotion between your toes. Examine Your Feet Each Day Check the tops and bottoms of your feet. Have someone else look at your feet if you cannot see them. Check for dry, cracked skin. Look for blisters, cuts, scratches, or other sores. Check for redness, increased warmth, or tenderness when touching any area of your feet. Check for ingrown toenails, corns, and calluses. If you get a blister or sore from your shoes, do not pop it. Apply a bandage and wear a different pair of shoes. Take Care of Your Toenails Cut toenails after bathing, when they are soft. Cut toenails straight across and smooth with a nail file. Avoid cutting into the corners of toes. Do not cut cuticles. If you have neuropathy (or decreased sensation in your feet) a clinical informatics director should always cut your toenails. Be Careful When Exercising Walk and exercise in comfortable shoes. Do not exercise when you have open sores on your feet. Protect Your Feet With Shoes and Socks Never go barefoot. Always protect your feet by wearing shoes or hard-soled slippers or footwear. Avoid shoes with high heels and pointed toes. Avoid shoes that expose your toes or heels (such as open-toed shoes or sandals). These types of shoes increase your risk for injury and potential infections. Try on new footwear with the type of socks you usually wear. Do not wear new shoes for more than an hour at a time. Change your socks daily. Look and feel inside your shoes before putting them on to make sure there are no foreign objects or rough areas. Avoid tight socks. Wear natural-fiber socks (cotton, wool, or a cotton-wool blend). Wear special shoes if your health care provider recommends them. Wear shoes/boots that will protect your feet from various weather conditions (cold, moisture, etc.). Make sure your shoes fit properly. If you have neurop (more content not included)... Normal [facility] GLUCOSE, BLOOD (POC)on 11-15 Glucose [Mass/Vol] 87 mg/dL 74 - 99 mg/dL [facility] Absolute lymphocyte countOrd ered By: Kaia White on 09-04-2023 Lymphocytes Auto (Unsp spec) [#/Vol] 1.62 10*3/uL 0.83-4.51 [facility] Basophil percentageOrdered B y: White on 09-04-2023 Basophils/100 WBC (Bld) 0.7 % 0-1 [facility] Bilirubin [Mass/Vol] 0.40 mg/dL 0.20-1.00 [facility] Comment on above: For patients on eltr ombopag therapy, use of Dimension Coamo TBIL is not recommended. Chloride [Moles/Vol] 112 mmol/L 98-107 [facility] Eosinophils/100 WBC (Bld) 2.8 % 0-5 [facility] Glucose [Mass/Vol] 110 mg/dL 74-106 [facility] Comment on above: Fasting Glucose resu lt from 100 to 125 mg/dL suggests IMPAIRED HOMEOSTASIS per A.D.A. criteria. Neutrophils (Bld) [#/Vol] 3.1 10*3/uL 2.0-7.7 [facility] Neutrophils/100 WBC (Bld) 57.5 % 47-70 [facility] Potassium [Moles/Vol] 4.3 mmol/L 3.5-5.1 [facility] Protein [Mass/Vol] 6.4 g/dL 6.4-8.2 [facility] Sodium [Moles/Vol] 141 mmol/L 136-145 [facility] WBC (Bld) [#/Vol] 5.4 10*3/uL 4.4-11.0 [facility] Blood erythrocytes count (nu mber/volume)Ordered By: White on 09-04-2023 RBC (Bld) [#/Vol] 3.23 10*6/uL 4.2-5.4 [facility] Blood hemoglobin measurement (mass/volume)Ordered By: White on 09-04-2023 Hemoglobin (Bld) [Mass/Vol] 10.2 g/dL 12.0-15.0 [facility] Blood lymphocytes/100 leukoc ytesOrdered By: White on 09-04-2023 Lymphocytes/100 WBC (Bld) 30.1 % 19-41 [facility] Blood monocytes/100 leukocyt esOrdered By: White on 09-04-2023 Monocytes/100 WBC (Bld) 8.5 % 0-10 [facility] Blood platelet mean volumeOr dered By: Kaia Mcclain on 09-04-2023 Platelet mean volume (Bld) [Entitic vol] 10.0 fL 6.2-12.0 [facility] Determination of erythrocyte mean corpuscular volume (MCV)Ordered By: Kaia Mcclain on 09-04-2023 MCV (RBC) [Entitic vol] 96.6 fL 81-99 [facility] Glucose Glucometer (BldC) [M ass/Vol]Ordered By: Eugene Ayala on 09-04-2023 Glucose [Mass/Vol] 173 mg/dL 74-106 [facility] Comment on above: MANAGEMENT OF PATIEN T CARE PER NURSING PROTOCOL Hematocrit Auto (Bld) [Volum e fraction]Ordered By: Kaia Mcclain on 09-04-2023 Hematocrit (Bld) [Volume fraction] 31.2 % 37-47 [facility] Laboratory - Chemistry and C hemistry - challengeOrdered By: Kaia Mcclain on 09-04-2023 ALP [Catalytic activity/Vol] 59 U/L 45-117 [facility] ALT [Catalytic activity/Vol] 18 U/L 13-56 [facility] CO2 [Moles/Vol] 26.0 mmol/L 21.0-32.0 [facility] Globulin (S) [Mass/Vol] 2.9 g/dL 2.2-4.2 [facility] Urea nitrogen/Creatinine [Mass ratio] 20.3 mg/mg 10-20 [facility] - Hematology and Cell countsOrdered By: Kaia Mcclain on 09-04-2023 Erythrocyte distribution width (RBC) [Entitic vol] 51.2 fL 35.1-43.9 [facility] Erythrocyte distribution width (RBC) [Ratio] 14.5 % 11.6-14.6 [facility] Immature granulocytes/100 WBC (Bld) 0.400 % 0.0-0.9 [facility] Comment on above: IG% - Immature Granu locytes (promyelocytes, myelocytes and metamyelocytes) > 1% indicates that a LEFT SHIFT is Present. MCH (RBC) [Entitic mass] 31.6 pg 27.0-32.0 [facility] Nucleated RBC/100 WBC (Bld) [Ratio] 0 % 0-5 [facility] MCHC Auto (RBC) [Mass/Vol]Or dered By: Kaia Mcclain on 09-04-2023 MCHC (RBC) [Mass/Vol] 32.7 g/dL 32-36 [facility] No Panel InformationOrdered By: Kaia Mcclain on 09-04-2023 Estimated Creatinine Clearance Calc 22.92 ml/min [facility] Estimated GFR (MDRD) Amer 51 mL/min >60 [facility] Comment on above: GFR Calc Estimated GFR (MDRD) Non-Af Amer 42 mL/min >60 [facility] Comment on above: Non- GFR Calc Platelets bldOrdered By: Fatoumata Mcclain on 09-04-2023 Platelets (Bld) [#/Vol] 173 10*3/uL 150-450 [facility] Serum or plasma albumin luna urement (mass/volume)Ordered By: Kaia Mcclain on 09-04-2023 Albumin [Mass/Vol] 3.5 g/dL 3.2-5.0 [facility] Serum or plasma albumin/glob ulin mass ratioOrdered By: Kaia Mcclain on 09-04-2023 Albumin/Globulin [Mass ratio] 1.2 {ratio} 0.9-2.4 [facility] Serum or plasma calcium luna urement (mass/volume)Ordered By: Kaia Mcclain on 09-04-2023 Calcium [Mass/Vol] 8.7 mg/dL 8.5-10.1 [facility] Serum or plasma creatinine m easurement (mass/volume)Ordered By: Kaia Mcclain on 09-04-2023 Creatinine [Mass/Vol] 1.28 mg/dL 0.55-1.02 [facility] Comment on above: The validity of the calculated GFR & GFRAA in patients over 70 years has not been determined. Clinical correlation is essential. Serum or plasma urea nitroge n measurement (mass/volume)Ordered By: Kaia Mcclain on 09-04-2023 Urea nitrogen [Mass/Vol] 26 mg/dL 7-18 [facility] Thin prep Papanicolaou smear with manual screeningOrdered By: Kaia Mcclain on 09-04-2023 Thin prep Papanicolaou smear with manual screening 17 U/L 15-37 [facility] Thin prep Papanicolaou smear with manual screening 3 5-15 [facility] [facility] Absolute lymphocyte countOrd ered By: Tristan Huitron on 09-03-2023 Lymphocytes Auto (Unsp spec) [#/Vol] 1.83 10*3/uL 0.83-4.51 [facility] Basophil percentageOrdered B y: Tristan Huitron on 09-03-2023 Basophils/100 WBC (Bld) 0.7 % 0-1 [facility] Chloride [Moles/Vol] 105 mmol/L 98-107 [facility] Eosinophils/100 WBC (Bld) 2.2 % 0-5 [facility] Glucose [Mass/Vol] 203 mg/dL 74-106 [facility] Comment on above: Glucose result great er than or equal to 200 mg/dLsuggests DIABETES MELLITUS per A.D.A. criteria. Neutrophils (Bld) [#/Vol] 4.3 10*3/uL 2.0-7.7 [facility] Neutrophils/100 WBC (Bld) 61.9 % 47-70 [facility] Potassium [Moles/Vol] 4.2 mmol/L 3.5-5.1 [facility] Sodium [Moles/Vol] 136 mmol/L 136-145 [facility] WBC (Bld) [#/Vol] 7.0 10*3/uL 4.4-11.0 [facility] Blood erythrocytes count (nu mber/volume)Ordered By: Tristan Huitron on 09-03-2023 RBC (Bld) [#/Vol] 3.53 10*6/uL 4.2-5.4 [facility] Blood hemoglobin measurement (mass/volume)Ordered By: Tristan Huitron on 09-03-2023 Hemoglobin (Bld) [Mass/Vol] 11.2 g/dL 12.0-15.0 [facility] Blood lymphocytes/100 leukoc ytesOrdered By: Tristan Huitron on 09-03-2023 Lymphocytes/100 WBC (Bld) 26.3 % 19-41 [facility] Blood monocytes/100 leukocyt esOrdered By: Tristan Huitron on 09-03-2023 Monocytes/100 WBC (Bld) 8.6 % 0-10 [facility] Blood platelet mean volumeOr dered By: Tristan Huitron on 09-03-2023 Platelet mean volume (Bld) [Entitic vol] 10.0 fL 6.2-12.0 [facility] Determination of erythrocyte mean corpuscular volume (MCV)Ordered By: Tristan Huitron on 09-03-2023 MCV (RBC) [Entitic vol] 96.3 fL 81-99 [facility] Hematocrit Auto (Bld) [Volum e fraction]Ordered By: Tristan Huitron on 09-03-2023 Hematocrit (Bld) [Volume fraction] 34.0 % 37-47 [facility] Laboratory - Chemistry and C hemistry - challengeOrdered By: Tristan Huitron on 09-03-2023 CO2 [Moles/Vol] 27.0 mmol/L 21.0-32.0 [facility] Natriuretic peptide B (Bld) [Mass/Vol] 90.1 pg/mL 0-100 [facility] Urea nitrogen/Creatinine [Mass ratio] 20.1 mg/mg 10-20 [facility] Laboratory - Hematology and Cell countsOrdered By: Tristan Huitron on 09-03-2023 Erythrocyte distribution width (RBC) [Entitic vol] 51.2 fL 35.1-43.9 [facility] Erythrocyte distribution width (RBC) [Ratio] 14.6 % 11.6-14.6 [facility] Immature granulocytes/100 WBC (Bld) 0.300 % 0.0-0.9 [facility] Comment on above: IG% - Immature Granu locytes (promyelocytes, myelocytes and metamyelocytes) > 1% indicates that a LEFT SHIFT is Present. MCH (RBC) [Entitic mass] 31.7 pg 27.0-32.0 [facility] Nucleated RBC/100 WBC (Bld) [Ratio] 0 % 0-5 [facility] MCHC Auto (RBC) [Mass/Vol]Or dered By: Tristan Huitron on 09-03-2023 MCHC (RBC) [Mass/Vol] 32.9 g/dL 32-36 [facility] No Panel InformationOrdered By: Lisy Lr on 09-03-2023 Troponin I High Sensitivity 6 pg/mL 3.0-54.0 [facility] Comment on above: Please Note: New Micky t Units and Gender Specific Reference Ranges. For more information see Policy Stat Procedure [place] High Sensitivity Troponin (TNIH) and attachments. No Panel InformationOrdered By: Tristan Huitron on 09-03-2023 Estimated Creatinine Clearance Calc 20.38 ml/min [facility] Estimated GFR (MDRD) Amer 44 mL/min >60 [facility] Comment on above: GFR Calc Estimated GFR (MDRD) Non-Af Amer 37 mL/min >60 [facility] Comment on above: Non- GFR Calc Troponin I High Sensitivity 8 pg/mL 3.0-54.0 [facility] Comment on above: Please Note: New Micky t Units and Gender Specific Reference Ranges. For more information see Policy Stat Procedure [place] High Sensitivity Troponin (TNIH) and attachments. Platelets bldOrdered By: Alida Huitron on 09-03-2023 Platelets (Bld) [#/Vol] 196 10*3/uL 150-450 [facility] Serum or plasma calcium luna urement (mass/volume)Ordered By: Tristan Huitron on 09-03-2023 Calcium [Mass/Vol] 9.1 mg/dL 8.5-10.1 [facility] Serum or plasma creatinine m easurement (mass/volume)Ordered By: Tristan Huitron on 09-03-2023 Creatinine [Mass/Vol] 1.44 mg/dL 0.55-1.02 [facility] Comment on above: The validity of the calculated GFR & GFRAA in patients over 70 years has not been determined. Clinical correlation is essential. Serum or plasma urea nitroge n measurement (mass/volume)Ordered By: Tristan Huitron on 09-03-2023 Urea nitrogen [Mass/Vol] 29 mg/dL 7-18 [facility] Thin prep Papanicolaou smear with manual screeningOrdered By: Tristan Huitron on 09-03-2023 Thin prep Papanicolaou smear with manual screening 4 5-15 [facility] Absolute lymphocyte countOrd ered By: Charanjit Zhang on 09-02-2023 Lymphocytes Auto (Unsp spec) [#/Vol] 1.37 10*3/uL 0.83-4.51 [facility] Basophil percentageOrdered B y: Charanjit Zhang on 09-02-2023 Basophil percentage 50-100 SEEN /hpf 0-5 [facility] Basophils/100 WBC (Bld) 0.9 % 0-1 [facility] Chloride [Moles/Vol] 106 mmol/L 98-107 [facility] Eosinophils/100 WBC (Bld) 1.8 % 0-5 [facility] Glucose [Mass/Vol] 144 mg/dL 74-106 [facility] Comment on above: Fasting Glucose resu lt greater than or equal to 126 mg/dL suggests DIABETES MELLITUS per A.D.A. criteria. Neutrophils (Bld) [#/Vol] 4.4 10*3/uL 2.0-7.7 [facility] Neutrophils/100 WBC (Bld) 66.6 % 47-70 [facility] Potassium [Moles/Vol] 4.1 mmol/L 3.5-5.1 [facility] Sodium [Moles/Vol] 136 mmol/L 136-145 [facility] WBC (Bld) [#/Vol] 6.7 10*3/uL 4.4-11.0 [facility] Bilirubin Test strip Ql (U)O rdered By: Charanjit Zhang on 09-02-2023 Bilirubin Ql (U) Negative Negative [facility] Blood erythrocytes count (nu mber/volume)Ordered By: Charanjit Zhang on 09-02-2023 RBC (Bld) [#/Vol] 3.61 10*6/uL 4.2-5.4 [facility] Blood hemoglobin measurement (mass/volume)Ordered By: Charanjit Zhang on 09-02-2023 Hemoglobin (Bld) [Mass/Vol] 11.7 g/dL 12.0-15.0 [facility] Blood lymphocytes/100 leukoc ytesOrdered By: Charanjit Zhang on 09-02-2023 Lymphocytes/100 WBC (Bld) 20.5 % 19-41 [facility] Blood monocytes/100 leukocyt esOrdered By: Charanjit Zhang on 09-02-2023 Monocytes/100 WBC (Bld) 9.9 % 0-10 [facility] Blood platelet mean volumeOr dered By: Charanjit Zhang on 09-02-2023 Platelet mean volume (Bld) [Entitic vol] 10.0 fL 6.2-12.0 [facility] Culture, urineOrdered By: Jimi Zhang on 09-02-2023 Bacteria identified Cx Nom (U) Escherichia coli [facility] Determination of erythrocyte mean corpuscular volume (MCV)Ordered By: Charanjit Zhang on 09-02-2023 MCV (RBC) [Entitic vol] 95.6 fL 81-99 [facility] Hematocrit Auto (Bld) [Volum e fraction]Ordered By: Charanjit Zhang on 09-02-2023 Hematocrit (Bld) [Volume fraction] 34.5 % 37-47 [facility] Ketones Test strip Ql (U)Ord ered By: Charanjit Zhang on 09-02-2023 Ketones Ql (U) Negative Negative [facility] Laboratory - Chemistry and C hemistry - challengeOrdered By: Charanjit Zhang on 09-02-2023 CO2 [Moles/Vol] 25.0 mmol/L 21.0-32.0 [facility] Urea nitrogen/Creatinine [Mass ratio] 21.1 mg/mg 10-20 [facility] Laboratory - Hematology and Cell countsOrdered By: Charanjit Zhang on 09-02-2023 Erythrocyte distribution width (RBC) [Entitic vol] 50.4 fL 35.1-43.9 [facility] Erythrocyte distribution width (RBC) [Ratio] 14.6 % 11.6-14.6 [facility] Immature granulocytes/100 WBC (Bld) 0.300 % 0.0-0.9 [facility] Comment on above: IG% - Immature Granu locytes (promyelocytes, myelocytes and metamyelocytes) > 1% indicates that a LEFT SHIFT is Present. MCH (RBC) [Entitic mass] 32.4 pg 27.0-32.0 [facility] Nucleated RBC/100 WBC (Bld) [Ratio] 0 % 0-5 [facility] MCHC Auto (RBC) [Mass/Vol]Or dered By: Charanjit Zhang on 09-02-2023 MCHC (RBC) [Mass/Vol] 33.9 g/dL 32-36 [facility] Mucus LM Ql (Urine sed)Order ed By: Charanjit Zhang on 09-02-2023 Mucus Ql (Urine sed) 0 SEEN /hpf [facility] Nitrite Test strip Ql (U)Ord ered By: Charanjit Zhang on 09-02-2023 Nitrite Ql (U) Positive Negative [facility] No Panel InformationOrdered By: Charanjit Zhang on 09-02-2023 Estimated Creatinine Clearance Calc 19.96 ml/min [facility] Estimated GFR (MDRD) Amer 43 mL/min >60 [facility] Comment on above: GFR Calc Estimated GFR (MDRD) Non-Af Amer 36 mL/min >60 [facility] Comment on above: Non- GFR Calc Platelets bldOrdered By: Iza Zhang on 09-02-2023 Platelets (Bld) [#/Vol] 210 10*3/uL 150-450 [facility] Protein Test strip Ql (U)Ord ered By: Charanjit Zhang on 09-02-2023 Protein Ql (U) 15 mg/dl Negative [facility] Serum or plasma calcium luna urement (mass/volume)Ordered By: Charanjit Zhang on 09-02-2023 Calcium [Mass/Vol] 9.5 mg/dL 8.5-10.1 [facility] Serum or plasma creatinine m easurement (mass/volume)Ordered By: Charanjit Zhang on 09-02-2023 Creatinine [Mass/Vol] 1.47 mg/dL 0.55-1.02 [facility] Comment on above: The validity of the calculated GFR & GFRAA in patients over 70 years has not been determined. Clinical correlation is essential. Serum or plasma urea nitroge n measurement (mass/volume)Ordered By: Charanjit Zhang on 09-02-2023 Urea nitrogen [Mass/Vol] 31 mg/dL 7-18 [facility] Squamous epithelial cells de tection in urine sediment by light microscopyOrdered By: Charanjit Zhang on 09-02-2023 Epithelial cells.squamous LM Ql (Urine sed) 0-5 SEEN /hpf 5-10 [facility] Thin prep Papanicolaou smear with manual screeningOrdered By: Charanjit Zhang on 09-02-2023 Thin prep Papanicolaou smear with manual screening 5 -15 [facility] Urine blood detectionOrdered By: Charanjit Zhang on 09-02-2023 RBC Ql (U) 10 /ul Negative [facility] RBC Ql (U) 0 SEEN /hpf 0-5 [facility] Urine clarityOrdered By: Iza Zhang on 09-02-2023 Clarity (U) Clear Clear [facility] Urine color determinationOrd ered By: Charanjit Zhang on 09-02-2023 Color (U) Straw Yellow [facility] Urine glucose detectionOrder ed By: Charanjit Zhang on 09-02-2023 Glucose Ql (U) Normal mg/dl Normal [facility] Urine leukocyte esterase det ection by dipstickOrdered By: Charanjit Zhang on 09-02-2023 Leukocyte esterase Test strip Ql (U) 500 /ul Negative [facility] Urine pHOrdered By: Charanjit cash on 09-02-2023 pH (U) 6.0 [pH] 5.0 - 8.0 [facility] Urine sediment bacteria coun t by microscopy (number/high power field)Ordered By: Charanjit Zhang on 09-02-2023 Bacteria LM.HPF (Urine sed) [#/Area] 2 /[HPF] None Seen [facility] Urine specific gravity measu rementOrdered By: Charanjit Zhang on 09-02-2023 Specific gravity (U) [Rel density] 1.015 1.002-1.030 [facility] Urobilinogen Auto test strip Ql (U)Ordered By: Charanjit Zhang on 09-02-2023 Urobilinogen Ql (U) Normal mg/dl Normal [facility] Comprehensive metabolic 2000 panelon 08-16-2023 Albumin [Mass/Vol] 4.5 g/dL 3.9 - 4.9 g/dL [facility] ALP [Catalytic activity/Vol] 69 U/L 34 - 123 U/L [facility] ALT [Catalytic activity/Vol] 12 U/L 7 - 38 U/L [facility] Anion gap [Moles/Vol] 12 mmol/L 9 - 18 mmol/L [facility] AST [Catalytic activity/Vol] 22 U/L 13 - 35 U/L [facility] Bilirubin [Mass/Vol] 0.3 mg/dL 0.2 - 1 .3 mg/dL [facility] Calcium [Mass/Vol] 9.5 mg/dL 8.5 - 10. 2 mg/dL [facility] Chloride [Moles/Vol] 103 mmol/L 97 - 10 5 mmol/L [facility] CO2 [Moles/Vol] 23 mmol/L 22 - 30 mmol/L [facility] Creatinine [Mass/Vol] 1.37 mg/dL High 0.58 - 0.96 mg/dL [facility] Estimated Glomerular Filtration Rate 37 mL/min/1.73m Low >=60 mL/min/1.73 m [facility] Glucose [Mass/Vol] 106 mg/dL High 74 - 99 mg/dL [facility] Potassium [Moles/Vol] 4.9 mmol/L 3.7 - 5.1 mmol/L [facility] Protein [Mass/Vol] 7.0 g/dL 6.3 - 8.0 g/dL [facility] Sodium [Moles/Vol] 138 mmol/L 136 - 144 mmol/L [facility] Urea nitrogen [Mass/Vol] 27 mg/dL High 7 - 21 mg/dL [facility] HbA1c (Bld)on 08-15-2023 Average glucose Estimated from glycated hemoglobin (Bld) [Mass/Vol] 183 mg/dL [facility] HbA1c (Bld) [Mass fraction] 8.0 % High 4.3 - 5.6 % [facility] ALBUMIN/CREAT RATIO RND URon 08-10-2022 Albumin DL <= 20 mg/L (U) [Mass/Vol] 16.0 mg/L [facility] Albumin/Creatinine (U) [Mass ratio] 19 mg/g <30 mg/g [facility] Creatinine (U) [Mass/Vol] 86.0 mg/dL 20.0 - 300.0 mg/dL [facility] HbA1c (Bld)on 08-10-2022 Average glucose Estimated from glycated hemoglobin (Bld) [Mass/Vol] 166 mg/dL [facility] HbA1c (Bld) [Mass fraction] 7.4 % High 4.3 - 5.6 % [facility] XR Ankle - right AP and Late ral and obliqueon 08-19-2020 IMPRESSION: Soft tissue swelling and changes of the right medial malleolus as detailed in report which are age indeterminant. Remote healed fracture deformity could have this appearance; however, in the setting of acute nontraumatic soft tissue swelling certainly infectious process such as osteomyelitis cannot be excluded. Jet Inspector: AN Transcribe Date/Time: Aug 19 2020 7:24P Dictated by : MONTSERRAT MADDOX MD This examination was interpreted and the report reviewed and electronically signed by: MONTSERRAT MADDOX MD on Aug 19 2020 7:27PM [facility] DIVISION OF RADIOLOGY * * *Final Report* * * DATE OF EXAM: Aug 19 2020 6:21PM WOX [id number] - XR ANKLE 3V AP/LAT/OBL RT / PROCEDURE REASON: Acute right ankle pain * * * * Physician Interpretation * * * * EXAMINATION: XR ANKLE 3V AP/LAT/OBL RT HISTORY: pt states right ankle just started hurting on Tuesday and then Tuesday could hardly walk on it, pain is medial side with no inj Acute right ankle pain . TECHNIQUE: XR ANKLE 3V AP/LAT/OBL RT Laterality: RIGHT Number of different views (projections): 3 M: XB_1 COMPARISON: There are no prior relevant examinations available for comparison. RESULT: Standing frontal radiographs of the bilateral ankles with oblique and lateral weightbearing views of the right ankle demonstrate right bimalleolar soft tissue swelling, medial greater than lateral. On the AP view there is mixed sclerotic lucent changes of the medial malleolus with some tiny well-corticated ossific fragments which are age indeterminant. There is no periostitis identified. Findings could reflect remote fracture fragments but bony destructive change related to osteomyelitis cannot be excluded. Ankle mortise and syndesmosis are preserved. DIVISION OF RADIOLOGY Provider, [facility] - 08/19/2020 * * *Final Report* * * DATE OF EXAM: Aug 19 2020 6:21PM WOX [id number] - XR ANKLE 3V AP/LAT/OBL RT / PROCEDURE REASON: Acute right ankle pain * * * * Physician Interpretation * * * * EXAMINATION: XR ANKLE 3V AP/LAT/OBL RT HISTORY: pt states right ankle just started hurting on Tuesday and then Tuesday could hardly walk on it, pain is medial side with no inj Acute right ankle pain . TECHNIQUE: XR ANKLE 3V AP/LAT/OBL RT Laterality: RIGHT Number of different views (projections): 3 M: XB_1 COMPARISON: There are no prior relevant examinations available for comparison. RESULT: Standing frontal radiographs of the bilateral ankles with oblique and lateral weightbearing views of the right ankle demonstrate right bimalleolar soft tissue swelling, medial greater than lateral. On the AP view there is mixed sclerotic lucent changes of the medial malleolus with some tiny well-corticated ossific fragments which are age indeterminant. There is no periostitis identified. Findings could reflect remote fracture fragments but bony destructive change related to osteomyelitis cannot be excluded. Ankle mortise and syndesmosis are preserved. IMPRESSION IMPRESSION: Soft tissue swelling and changes of the right medial malleolus as detailed in report which are age indeterminant. Remote healed fracture deformity could have this appearance; however, in the setting of acute nontraumatic soft tissue swelling certainly infectious process such as osteomyelitis cannot be excluded. Jet Inspector: PSCB Transcribe Date/Time: Aug 19 2020 7:24P Dictated by : MONTSERRAT MADDOX MD This examination was interpreted and the report reviewed and electronically signed by: MONTSERRAT MADDOX MD on Aug 19 2020 7:27PM EST [facility] Radiology Study observation (narrative) [facility] XR Ankle - right AP and Late ral and obliqueOrdered By: [facility] Provider on 08-19-2020 [facility] Vital Signs Date Time Vital Sign Value Performing Clinician Faci lity 02-16-2025 19:07-0400 Body temperature 97.3 [degF] Dr. Maik Fay MD Work Phone: [facility] 02-16-2025 19:07-0400 Diastolic blood pressure 91 mm[Hg] Dr. Maik Fay MD Work Phone: [facility] 02-16-2025 19:07-0400 Heart rate 75 /min Dr. Maik Fay MD Work Phone: [facility] 02-16-2025 19:07-0400 Respiratory rate 21 /min Dr. Maik Fay MD Work Phone: [facility] 02-16-2025 19:07-0400 SaO2% (BldA) [Mass fraction] 99 % Dr. Maik Fay MD Work Phone: [facility] 02-16-2025 19:07-0400 Systolic blood pressure 121 mm[Hg] Dr. Maik Fay MD Work Phone: [facility] 02-16-2025 17:17-0400 Body height 154.[address] Maik Fay MD Work Phone: [facility] 02-16-2025 17:17-0400 Body mass index (BMI) [Ratio] 29.3 kg/m2 Dr. Maik Fay MD Work Phone: [facility] 02-16-2025 17:17-0400 Body weight 70.[address] Maik Fay MD Work Phone: [facility] 01-22-2025 13:17-0400 Body mass index (BMI) [Ratio] 29.63 kg/m2 Maribel Fay MD Work Phone: [facility] 01-22-2025 13:17-0400 Body weight 71.12 kg Maribel Fay MD Work Phone: [facility] 01-22-2025 13:17-0400 Diastolic blood pressure 60 mm[Hg] Maribel Fay MD Work Phone: [facility] 01-22-2025 13:17-0400 Heart rate 72 /min Maribel Fay MD Work Phone: [facility] 01-22-2025 13:17-0400 Respiratory rate 16 /min Maribel Fay MD Work Phone: [facility] 01-22-2025 13:17-0400 SaO2% (BldA) [Mass fraction] 96 % Maribel Fay MD Work Phone: [facility] 01-22-2025 13:17-0400 Systolic blood pressure 94 mm[Hg] Maribel Fay MD Work Phone: [facility] 12-20-2024 13:37-0400 Body mass index (BMI) [Ratio] 30.53 kg/m2 Maribel Fay MD Work Phone: [facility] 12-20-2024 13:37-0400 Body weight 73.3 kg Maribel Fay MD Work Phone: [facility] 12-20-2024 13:37-0400 Diastolic blood pressure 60 mm[Hg] Maribel Fay MD Work Phone: [facility] 12-20-2024 13:37-0400 Heart rate 74 /min Maribel Fay MD Work Phone: [facility] 12-20-2024 13:37-0400 Respiratory rate 16 /min Maribel Fay MD Work Phone: [facility] 12-20-2024 13:37-0400 SaO2% (BldA) [Mass fraction] 95 % Maribel Fay MD Work Phone: [facility] 12-20-2024 13:37-0400 Systolic blood pressure 108 mm[Hg] Maribel Fay MD Work Phone: [facility] 12-07-2024 12:28-0400 Body height 154.9 cm Pacc 1 Work Phone: [facility] 12-07-2024 12:28-0400 Body mass index (BMI) [Ratio] 30.04 kg/m2 Pacc 1 Work Phone: [facility] 12-07-2024 12:28-0400 Body temperature 97.5 [degF] Pacc 1 Work Phone: [facility] 12-07-2024 12:28-0400 Body weight 72.12 kg Pacc 1 Work Phone: [facility] 12-07-2024 12:28-0400 Diastolic blood pressure 62 mm[Hg] Pacc 1 Work Phone: [facility] 12-07-2024 12:28-0400 Heart rate 75 /min Pacc 1 Work Phone: [facility] 12-07-2024 12:28-0400 Respiratory rate 14 /min Pacc 1 Work Phone: [facility] 12-07-2024 12:28-0400 SaO2% (BldA) [Mass fraction] 94 % Pacc 1 Work Phone: [facility] 12-07-2024 12:28-0400 Systolic blood pressure 112 mm[Hg] [facility] 1 Work Phone: [facility] 11-19-2024 12:55-0500 Body mass index (BMI) [Ratio] 29.74 kg/m2 Maribel Fay MD Work Phone: [facility] 11-19-2024 12:55-0500 Body weight 71.4 kg Maribel Fay MD Work Phone: [facility] 11-19-2024 12:55-0500 Diastolic blood pressure 58 mm[Hg] Maribel Fay MD Work Phone: [facility] 11-19-2024 12:55-0500 Heart rate 73 /min Maribel Fay MD Work Phone: [facility] 11-19-2024 12:55-0500 Respiratory rate 16 /min Maribel Fay MD Work Phone: [facility] 11-19-2024 12:55-0500 SaO2% (BldA) [Mass fraction] 98 % Maribel Fay MD Work Phone: [facility] 11-19-2024 12:55-0500 Systolic blood pressure 102 mm[Hg] Maribel Fay MD Work Phone: [facility] 09-27-2024 10:07-0500 Body mass index (BMI) [Ratio] 29.93 kg/m2 Maribel Fay MD Work Phone: [facility] 09-27-2024 10:07-0500 Body weight 71.85 kg Maribel Fay MD Work Phone: [facility] 09-27-2024 10:07-0500 Diastolic blood pressure 58 mm[Hg] Maribel Fay MD Work Phone: [facility] 09-27-2024 10:07-0500 Heart rate 73 /min Maribel Fay MD Work Phone: [facility] 09-27-2024 10:07-0500 Respiratory rate 16 /min Maribel Fay MD Work Phone: [facility] 09-27-2024 10:07-0500 SaO2% (BldA) [Mass fraction] 98 % Maribel Fay MD Work Phone: [facility] 09-27-2024 10:07-0500 Systolic blood pressure 106 mm[Hg] Maribel Fay MD Work Phone: [facility] 09-06-2024 10:30-0500 Body height 154.9 cm Maribel Fay MD Work Phone: [facility] 09-06-2024 10:30-0500 Body mass index (BMI) [Ratio] 29.48 kg/m2 Maribel Fay MD Work Phone: [facility] 09-06-2024 10:30-0500 Body weight 70.76 kg Maribel Fay MD Work Phone: [facility] 09-06-2024 10:30-0500 Diastolic blood pressure 60 mm[Hg] Maribel Fay MD Work Phone: [facility] 09-06-2024 10:30-0500 Heart rate 73 /min Maribel Fay MD Work Phone: [facility] 09-06-2024 10:30-0500 Respiratory rate 14 /min Maribel Fay MD Work Phone: [facility] 09-06-2024 10:30-0500 SaO2% (BldA) [Mass fraction] 97 % Maribel Fay MD Work Phone: [facility] 09-06-2024 10:30-0500 Systolic blood pressure 112 mm[Hg] Maribel Fay MD Work Phone: [facility] 08-17-2024 10:51-0500 Body mass index (BMI) [Ratio] 29.12 kg/m2 Maribel Fay MD Work Phone: [facility] 08-17-2024 10:51-0500 Body weight 69.9 kg Maribel Fay MD Work Phone: [facility] 08-17-2024 10:51-0500 Diastolic blood pressure 62 mm[Hg] Maribel Fay MD Work Phone: [facility] 08-17-2024 10:51-0500 Heart rate 77 /min Maribel Fay MD Work Phone: [facility] 08-17-2024 10:51-0500 Respiratory rate 16 /min Maribel Fay MD Work Phone: [facility] 08-17-2024 10:51-0500 SaO2% (BldA) [Mass fraction] 99 % Mairbel Fay MD Work Phone: [facility] 08-17-2024 10:51-0500 Systolic blood pressure 108 mm[Hg] Maribel Fay MD Work Phone: [facility] 07-12-2024 09:57-0400 Diastolic blood pressure 56 mm[Hg] Simon Driscoll MD Work Phone: [facility] 07-12-2024 09:57-0400 Heart rate 76 /min Simon Driscoll MD Work Phone: [facility] 07-12-2024 09:57-0400 Respiratory rate 16 /min Simon Driscoll MD Work Phone: [facility] 07-12-2024 09:57-0400 SaO2% (BldA) [Mass fraction] 93 % Simon Driscoll MD Work Phone: [facility] 07-12-2024 09:57-0400 Systolic blood pressure 107 mm[Hg] Simon Driscoll MD Work Phone: [facility] 07-12-2024 08:19-0400 Body mass index (BMI) [Ratio] 28.16 kg/m2 Simon Driscoll MD Work Phone: [facility] 07-12-2024 08:19-0400 Body temperature 97.7 [degF] Simon Driscoll MD Work Phone: [facility] 07-12-2024 08:19-0400 Body weight 67.6 kg Simon Driscoll MD Work Phone: [facility] 06-19-2024 11:20-0400 Body height 154.9 cm Mariah Darrius VP MARKETING.[employer]HE[employer]ER Work Phone: [facility] 06-19-2024 11:20-0400 Body mass index (BMI) [Ratio] 28.15 kg/m2 Mariah Darrius VP MARKETING.SHELF FILLER Work Phone: [facility] 06-19-2024 11:20-0400 Body temperature 97.11 [degF] Mariah Darrius VP MARKETING.SHELF FILLER Work Phone: [facility] 06-19-2024 11:20-0400 Body weight 67.59 kg Mariah Darrius VP MARKETING.SHELF F[employer]ER Work Phone: [facility] 06-19-2024 11:20-0400 Diastolic blood pressure 62 mm[Hg] Mariah Darrius VP MARKETING.SHELF F[employer]ER Work Phone: [facility] 06-19-2024 11:20-0400 Heart rate 94 /min Mariah Darrius VP MARKETING.SHELF FILLER Work Phone: [facility] 06-19-2024 11:20-0400 SaO2% (BldA) [Mass fraction] 96 % Mariah Darrius VP MARKETING.SHELF FILLER Work Phone: [facility] 06-19-2024 11:20-0400 Systolic blood pressure 114 mm[Hg] Mariah Darrius VP MARKETING.SHELF FILLER Work Phone: [facility] 06-06-2024 12:19-0400 Body mass index (BMI) [Ratio] 28.08 kg/m2 Tosha Pelaez VP MARKETING.SHELF FILLER Work Phone: [facility] 06-06-2024 12:19-0400 Body weight 67.4 kg Tosha Pelaez VP MARKETING.SHELF F[employer]ER Work Phone: [facility] 06-06-2024 12:19-0400 Diastolic blood pressure 70 mm[Hg] Tosha Podlogar VP MARKETING.SHELF F[employer]ER Work Phone: [facility] 06-06-2024 12:19-0400 Heart rate 80 /min Tosha Podlogar VP MARKETING.SHELF FILLER Work Phone: [facility] 06-06-2024 12:19-0400 Respiratory rate 18 /min Tosha Podlogar VP MARKETING.SHELF FILLER Work Phone: [facility] 06-06-2024 12:19-0400 SaO2% (BldA) [Mass fraction] 94 % Tosha Podlogar VP MARKETING.SHELF FILLER Work Phone: [facility] 06-06-2024 12:19-0400 Systolic blood pressure 122 mm[Hg] Tosha Podlogar VP MARKETING.SHELF FILLER Work Phone: [facility] 05-16-2024 10:36-0400 Body mass index (BMI) [Ratio] 28.28 kg/m2 Tosha Podlogar VP MARKETING.SHELF FILLER Work Phone: [facility] 05-16-2024 10:36-0400 Body weight 67.9 kg Tosha Podlogar VP MARKETING.SHELF FILLER Work Phone: [facility] 05-16-2024 10:36-0400 Diastolic blood pressure 60 mm[Hg] Tosha Podlogar VP MARKETING.SHELF FILLER Work Phone: [facility] 05-16-2024 10:36-0400 Heart rate 99 /min Tosha Podlogar VP MARKETING.SHELF FILLER Work Phone: [facility] 05-16-2024 10:36-0400 Respiratory rate 18 /min Tosha Podlogar VP MARKETING.SHELF FILLER Work Phone: [facility] 05-16-2024 10:36-0400 SaO2% (BldA) [Mass fraction] 92 % Tosha Podlogar VP MARKETING.SHELF FILLER Work Phone: [facility] 05-16-2024 10:36-0400 Systolic blood pressure 112 mm[Hg] Tosha Podlogar VP MARKETING.SHELF FILLER Work Phone: [facility] 02-14-2024 11:07-0400 Body mass index (BMI) [Ratio] 28.27 kg/m2 Maribel Fay MD Work Phone: [facility] 02-14-2024 11:07-0400 Body weight 67.86 kg Maribel Fay MD Work Phone: [facility] 02-14-2024 11:07-0400 Diastolic blood pressure 62 mm[Hg] Maribel Fay MD Work Phone: [facility] 02-14-2024 11:07-0400 Heart rate 84 /min Maribel Fay MD Work Phone: [facility] 02-14-2024 11:07-0400 Respiratory rate 16 /min Maribel Fay MD Work Phone: [facility] 02-14-2024 11:07-0400 SaO2% (BldA) [Mass fraction] 95 % Maribel Fay MD Work Phone: [facility] 02-14-2024 11:07-0400 Systolic blood pressure 104 mm[Hg] Maribel Fay MD Work Phone: [facility] 12-23-2023 11:24-0400 Body weight 68.49 kg Maribel Fay MD Work Phone: [facility] 12-23-2023 11:24-0400 Diastolic blood pressure 72 mm[Hg] Mairbel Fay MD Work Phone: [facility] 12-23-2023 11:24-0400 Heart rate 91 /min Maribel Fay MD Work Phone: [facility] 12-23-2023 11:24-0400 Respiratory rate 16 /min Maribel Fay MD Work Phone: [facility] 12-23-2023 11:24-0400 SaO2% (BldA) [Mass fraction] 97 % Maribel Fay MD Work Phone: [facility] 12-23-2023 11:24-0400 Systolic blood pressure 122 mm[Hg] Maribel Fay MD Work Phone: [facility] 11-15-2023 10:57-0500 Body weight 69.94 kg Maribel Fay MD Work Phone: [facility] 11-15-2023 10:57-0500 Diastolic blood pressure 74 mm[Hg] Maribel Fay MD Work Phone: [facility] 11-15-2023 10:57-0500 Heart rate 88 /min Maribel Fay MD Work Phone: [facility] 11-15-2023 10:57-0500 Respiratory rate 16 /min Maribel Fay MD Work Phone: [facility] 11-15-2023 10:57-0500 SaO2% (BldA) [Mass fraction] 97 % Maribel Fay MD Work Phone: [facility] 11-15-2023 10:57-0500 Systolic blood pressure 104 mm[Hg] Maribel Fay MD Work Phone: [facility] 09-04-2023 13:36-0500 Body temperature 97.8 [degF] [facility] 09-04-2023 13:36-0500 Diastolic blood pressure 51 mm[Hg] [facility] 09-04-2023 13:36-0500 Heart rate 66 /min [facility] 09-04-2023 13:36-0500 Respiratory rate 18 /min [facility] 09-04-2023 13:36-0500 SaO2% (BldA) [Mass fraction] 94 % [facility] 09-04-2023 13:36-0500 Systolic blood pressure 124 mm[Hg] [facility] 09-04-2023 03:22-0500 Body mass index (BMI) [Ratio] 32.1 kg/m2 [facility] 09-04-2023 03:22-0500 Body weight 77 kg [facility] 09-03-2023 07:46-0500 Body height 154.94 cm [facility] 09-03-2023 05:26-0500 Diastolic blood pressure 53 mm[Hg] [facility] 09-03-2023 05:26-0500 Heart rate 59 /min [facility] 09-03-2023 05:26-0500 Respiratory rate 15 /min [facility] 09-03-2023 05:26-0500 SaO2% (BldA) [Mass fraction] 96 % [facility] 09-03-2023 05:26-0500 Systolic blood pressure 103 mm[Hg] [facility] 09-03-2023 01:28-0500 Body height 154.94 cm [facility] 09-03-2023 01:28-0500 Body mass index (BMI) [Ratio] 31.6 kg/m2 [facility] 09-03-2023 01:28-0500 Body temperature 96.9 [degF] [facility] 09-03-2023 01:28-0500 Body weight 75.88 kg [facility] 09-02-2023 13:00-0500 Diastolic blood pressure 57 mm[Hg] [facility] 09-02-2023 13:00-0500 Heart rate 59 /min [facility] 09-02-2023 13:00-0500 Respiratory rate 18 /min [facility] 09-02-2023 13:00-0500 SaO2% (BldA) [Mass fraction] 99 % [facility] 09-02-2023 13:00-0500 Systolic blood pressure 105 mm[Hg] [facility] 09-02-2023 11:37-0500 Body mass index (BMI) [Ratio] 31.9 kg/m2 [facility] 09-02-2023 11:37-0500 Body weight 76.7 kg [facility] 09-02-2023 11:23-0500 Body height 154.94 cm [facility] 09-02-2023 11:23-0500 Body temperature 97.4 [degF] [facility] 08-15-2023 13:53-0500 Body weight 75.3 kg Tosha Pelaez APRN.SHELF FILLER Work Phone: [facility] 08-15-2023 13:53-0500 Diastolic blood pressure 62 mm[Hg] Tosha Podlogar VP MARKETING.SHELF FILLER Work Phone: [facility] 08-15-2023 13:53-0500 Heart rate 64 /min Tosha Podlogar VP MARKETING.SHELF FILLER Work Phone: [facility] 08-15-2023 13:53-0500 Respiratory rate 18 /min Tosha Podlogar VP MARKETING.SHELF FILLER Work Phone: [facility] 08-15-2023 13:53-0500 Systolic blood pressure 124 mm[Hg] Tosha Podlogar VP MARKETING.SHELF FILLER Work Phone: [facility] 04-20-2023 14:03-0400 Body height 155.6 cm Pacc 1 Work Phone: [facility] 04-20-2023 14:03-0400 Body temperature 97.39 [degF] Pacc 1 Work Phone: [facility] 04-20-2023 14:03-0400 Body weight 77.11 kg Pacc 1 Work Phone: [facility] 04-20-2023 14:03-0400 Diastolic blood pressure 56 mm[Hg] Pacc 1 Work Phone: [facility] 04-20-2023 14:03-0400 Heart rate 55 /min Pacc 1 Work Phone: [facility] 04-20-2023 14:03-0400 Respiratory rate 16 /min Pacc 1 Work Phone: [facility] 04-20-2023 14:03-0400 SaO2% (BldA) [Mass fraction] 97 % Pacc 1 Work Phone: [facility] 04-20-2023 14:03-0400 Systolic blood pressure 112 mm[Hg] Pacc 1 Work Phone: [facility] 11-09-2022 13:58-0500 Body weight 77.11 kg Maribel Fay MD Work Phone: [facility] 11-09-2022 13:58-0500 Diastolic blood pressure 60 mm[Hg] Maribel Fay MD Work Phone: [facility] 11-09-2022 13:58-0500 Heart rate 62 /min Maribel Fay MD Work Phone: [facility] 11-09-2022 13:58-0500 Respiratory rate 16 /min Maribel Fay MD Work Phone: [facility] 11-09-2022 13:58-0500 SaO2% (BldA) [Mass fraction] 99 % Maribel Fay MD Work Phone: [facility] 11-09-2022 13:58-0500 Systolic blood pressure 104 mm[Hg] Maribel Fay MD Work Phone: [facility] 08-09-2022 15:15-0500 Body weight 76.75 kg Maribel Fay MD Work Phone: [facility] 08-09-2022 15:15-0500 Diastolic blood pressure 58 mm[Hg] Maribel Fay MD Work Phone: [facility] 08-09-2022 15:15-0500 Heart rate 60 /min Maribel Fay MD Work Phone: [facility] 08-09-2022 15:15-0500 Respiratory rate 18 /min Maribel Fay MD Work Phone: [facility] 08-09-2022 15:15-0500 SaO2% (BldA) [Mass fraction] 97 % Maribel Fay MD Work Phone: [facility] 08-09-2022 15:15-0500 Systolic blood pressure 102 mm[Hg] Maribel Fay MD Work Phone: [facility] 05-05-2022 15:08-0400 Body weight 75.3 kg Maribel Fay MD Work Phone: [facility] 05-05-2022 15:08-0400 Diastolic blood pressure 68 mm[Hg] Maribel Fay MD Work Phone: [facility] 05-05-2022 15:08-0400 Heart rate 74 /min Maribel Fay MD Work Phone: [facility] 05-05-2022 15:08-0400 Respiratory rate 14 /min Maribel Fay MD Work Phone: [facility] 05-05-2022 15:08-0400 Systolic blood pressure 112 mm[Hg] Maribel Fay MD Work Phone: [facility] 02-02-2022 13:34-0400 Body weight 78.29 kg Maribel Fay MD Work Phone: [facility] 02-02-2022 13:34-0400 Diastolic blood pressure 52 mm[Hg] Maribel Fay MD Work Phone: [facility] 02-02-2022 13:34-0400 Heart rate 74 /min Maribel Fay MD Work Phone: [facility] 02-02-2022 13:34-0400 Respiratory rate 18 /min Maribel Fay MD Work Phone: [facility] 02-02-2022 13:34-0400 SaO2% (BldA) [Mass fraction] 97 % Maribel Fay MD Work Phone: [facility] 02-02-2022 13:34-0400 Systolic blood pressure 118 mm[Hg] Maribel Fay MD Work Phone: [facility] Encounters Encounter Date Encounter Type Care Provider Facility Start: 02-22-2025 Evaluation and management of inpatient Norma Madden Facility:[facility] Start: 02-18-2025 End: 02-18-2025 Telephone encounter Maribel Fay MD Work Phone: [facility] Comment on above: Patient Update Start: 02-16-2025 Evaluation and management of inpatient DENIA OLIVAREZ Facility:[facility] Start: 02-16-2025 End: 02-16-2025 Emergency department patient visit Dr. Maik Fay MD Work Phone: -Emergency Department Work Phone: Start: 02-15-2025 End: 02-15-2025 ambulatory Maribel Fay MD Work Phone: [facility] Start: 02-15-2025 End: 02-15-2025 Patient encounter procedure Maribel Fay MD Work Phone: [facility] Comment on above: Population Health Na vigation Outreach ([facility] ) Start: 02-12-2025 End: 02-12-2025 Telephone encounter Maribel Fay MD Work Phone: [facility] Comment on above: Patient Update Start: 02-05-2025 End: 02-15-2025 Telephone encounter Jhoan Proctor PT [facility] Comment on above: Patient Question Start: 02-01-2025 End: 02-01-2025 ambulatory Jhoan Proctor PT [facility] Comment on above: Acute hip pain, left (Primary Dx); Neck pain Start: 01-24-2025 End: 01-24-2025 ambulatory Jhoan Proctor PT [facility] Comment on above: Acute hip pain, left (Primary Dx); Neck pain Start: 01-22-2025 ambulatory MARIBEL FAY acility:[facility] Start: 01-22-2025 End: 01-22-2025 Subsequent hospital visit by physician Xr [facility] Work Phone: Radiology Comment on above: Neck pain [M54.2] Start: 01-22-2025 End: 01-24-2025 Follow-up encounter Maribel Fay MD Work Phone: [facility] Comment on above: Results (Xrays of sp ine and hip) Start: 01-22-2025 End: 01-22-2025 Patient encounter procedure Maribel Fay MD Work Phone: [facility] Comment on above: Neck pain (Primary D x); Acute hip pain, left Start: 01-22-2025 End: 01-22-2025 ambulatory MARIBEL FAY Facility:[facility] Start: 01-18-2025 End: 01-18-2025 Patient encounter procedure Karel Jack Work Phone: Podiatry Comment on above: Onychomycosis (Prima ry Dx); Pain in toe of right foot; Pain in toe of left foot; DM type 2 with diabetic peripheral neuropathy (HCC); Hammer toe of left foot; Hammer toe of right foot Start: 01-18-2025 End: 01-18-2025 ambulatory MARIBEL FAY Facility:[facility] Start: 01-16-2025 End: 01-16-2025 ambulatory Maribel Fay MD Work Phone: [facility] Start: 01-16-2025 End: 01-16-2025 Patient encounter procedure Maribel Fay MD Work Phone: [facility] Comment on above: Population Health Na vigation Outreach ([employer] [facility] ) Start: 12-28-2024 End: 12-28-2024 ambulatory MARIBEL FAY Facility:[facility] Start: 12-28-2024 End: 12-28-2024 Patient encounter procedure Tanika Mathews PA-C Work Phone: Orthopaedics Comment on above: S/P carpal tunnel re lease (Primary Dx) Start: 12-20-2024 End: 12-20-2024 Patient encounter procedure Maribel Fay MD Work Phone: [facility] Comment on above: 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); S/P carpal tunnel release Start: 12-20-2024 End: 12-20-2024 ambulatory MARIBEL FAY Facility:[facility] Start: 12-17-2024 End: 12-17-2024 ambulatory [facility] MD [facility] Start: 12-17-2024 End: 12-17-2024 Patient encounter procedure Maribel Fay MD Work Phone: [facility] Comment on above: Population Health Na vigation Outreach ([facility] ) Start: 12-13-2024 End: 12-13-2024 ambulatory SAVANA DE OLIVEIRA Facility:[facility] Start: 12-11-2024 End: 12-19-2024 Telephone encounter Greg Purdy APRN.CNP Work Phone: Pre Anesthesia Comment on above: Pre-op A1c Level Start: 12-07-2024 End: 12-07-2024 Admission to establishment [facility] Work Phone: Pre Anesthesia Start: 12-07-2024 End: 12-07-2024 ambulatory MARIBEL FAY Facility:[facility] Start: 12-07-2024 End: 12-07-2024 Anesthesia consultation [facility] 1 Work Phone: Pre Anesthesia Comment on above: Pre-operative examin ation (Primary Dx); Essential hypertension; Mixed hyperlipidemia; PAD (peripheral artery disease) ([facility]); Type 2 diabetes mellitus with diabetic peripheral angiopathy without gangrene, with long-term current use of insulin (HCC); Stage 3b chronic kidney disease ([facility]); Pernicious anemia; Personal history of malignant neoplasm of cervix uteri; History of lumbar fusion; Restless leg syndrome; DM type 2 with diabetic peripheral neuropathy ([facility]); Gout, unspecified cause, unspecified chronicity, unspecified site; Former smoker; BMI 30.0-30.9,adult Start: 12-07-2024 End: 12-07-2024 Preprocedural examination done [facility] 1 Work Phone: [facility] Start: 12-04-2024 End: 12-05-2024 Refill Mraibel Fay MD Work Phone: [facility] Comment on above: Refill Request Start: 12-03-2024 End: 12-03-2024 Orders Only Savana De Oliveira DO Work Phone: Orthopaedics Comment on above: Carpal tunnel syndro me of left wrist (Primary Dx) Start: 11-30-2024 End: 11-30-2024 ambulatory MARIBEL FAY Facility:[facility] Start: 11-30-2024 End: 11-30-2024 Patient encounter procedure Savana Moss Alvino MELVIN Work Phone: Orthopaedics Comment on above: Numbness and tinglin g in left hand Start: 11-20-2024 End: 11-20-2024 Follow-up encounter Maribel Fay MD Work Phone: [facility] Start: 11-19-2024 End: 11-19-2024 ambulatory MARIBEL FAY Facility:[facility] Start: 11-19-2024 End: 11-19-2024 Patient encounter procedure Maribel Fay MD Work Phone: 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); Hypotension due to drugs; Tinea cruris Start: 10-24-2024 End: 10-25-2024 Telephone encounter Maribel Fay MD Work Phone: [facility] Comment on above: Results (EMG) Start: 10-22-2024 End: 10-22-2024 ambulatory MARIBEL FAY Neurology Start: 10-22-2024 End: 10-22-2024 Patient encounter procedure Emg [address] [facility] (Max Weight: 850) Neurology Start: 10-19-2024 End: 10-19-2024 ambulatory MARIBEL FAY Facility:[facility] Start: 10-19-2024 End: 10-19-2024 Patient encounter procedure Karel Santiago Work Phone: Podiatry Comment on above: Onychomycosis (Prima ry Dx); Pain in toe of right foot; Pain in toe of left foot; DM type 2 with diabetic peripheral neuropathy (HCC) Start: 10-08-2024 End: 10-08-2024 Telephone encounter Maribel Fay MD Work Phone: [facility] Comment on above: Low Blood Sugar Start: 10-05-2024 End: 10-08-2024 Telephone encounter Maribel Fay MD Work Phone: [facility] Comment on above: Patient Update (Bloo d Sugars) Start: 09-27-2024 End: 09-27-2024 Patient encounter procedure Maribel Fay MD Work Phone: 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); Numbness and tingling in left hand Start: 09-27-2024 End: 09-27-2024 ambulatory MARIBEL FAY Facility:[facility] Start: 09-17-2024 End: 09-17-2024 Telephone encounter Lee Fernandez MD Work Phone: Neurology Comment on above: Appointment Start: 09-14-2024 End: 09-14-2024 ambulatory Verenice Whitfield MA [facility] Start: 09-14-2024 End: 09-14-2024 Patient encounter procedure Verenice Whitfield MA [facility] Comment on above: Population Health Na vigation Outreach ([facility]) Start: 09-06-2024 End: 09-06-2024 Patient encounter procedure Maribel Fay MD Work Phone: 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 Comment on above: Refill Request Start: 08-26-2024 End: 08-26-2024 ambulatory Gracia Salamanca RN [employer]SE [employer] Comment on above: Low Blood Sugar Start: 08-20-2024 End: 08-22-2024 Telephone encounter Maribel Fay MD Work Phone: 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); Stage 3b chronic kidney disease (HCC); Essential hypertension; Mixed hyperlipidemia; Restless leg syndrome; PAD (peripheral artery disease) (HCC); Mild anemia Start: 08-17-2024 End: 08-17-2024 ambulatory MARIBEL FAY Facility:[facility] Start: 07-23-2024 End: 07-23-2024 ambulatory MARIBEL FAY Facility:[facility] Start: 07-23-2024 End: 07-23-2024 Patient encounter procedure Mariah Odonnell APRN.CNP Work Phone: General Surgery Comment on above: History of colonic p olyps (Primary Dx); Phlegm in throat Start: 07-13-2024 End: 07-13-2024 ambulatory MARIBEL FAY Facility:[facility] Start: 07-13-2024 End: 07-13-2024 Patient encounter procedure Karel Santiago Work Phone: Podiatry Comment on above: Onychomycosis (Prima ry Dx); Pain in toe of right foot; Pain in toe of left foot; DM type 2 with diabetic peripheral neuropathy (HCC) Start: 07-12-2024 End: 07-12-2024 ambulatory MARIBEL FAY Facility:[facility] Start: 07-12-2024 End: 07-12-2024 Subsequent hospital visit by physician Simon Driscoll MD Work Phone: Ambulatory Surgery Comment on above: Positive fecal occul t blood test [R19.5] Start: 07-10-2024 End: 07-11-2024 Telephone encounter Maribel Fay MD Work Phone: [facility] Comment on above: Patient Question Start: 07-09-2024 End: 07-17-2024 Telephone encounter Simon Driscoll MD Work Phone: General Surgery Comment on above: Patient Update Start: 07-02-2024 End: 07-04-2024 Refill Maribel Fay MD Work Phone: [facility] Comment on above: Medication Question; Refill Request Start: 06-29-2024 End: 06-29-2024 ambulatory Verenice Whitfield MA [facility] Start: 06-29-2024 End: 06-29-2024 Patient encounter procedure Verenice Whitfield MA [facility] Comment on above: Population Health Na vigation Outreach ([facility]) Start: 06-19-2024 End: 06-19-2024 ambulatory MARIBEL FAY Facility:[facility] Start: 06-19-2024 End: 06-19-2024 Patient encounter procedure Mariah Odonnell VP MARKETING.SHELF FILLER Work Phone: General Surgery Comment on above: History of colonic p olyps (Primary Dx); Positive fecal occult blood test Start: 06-18-2024 End: 06-18-2024 Refill Maribel Fay MD Work Phone: [facility] Comment on above: Refill Request Start: 06-15-2024 End: 07-03-2024 Telephone encounter Tosha Pelaez APRN.SHELF FILLER Work Phone: [facility] Comment on above: Results Start: 06-13-2024 End: 06-13-2024 Telephone encounter Tosha Pelaez APRN.SHELF FILLER Work Phone: [facility] Start: 06-12-2024 End: 06-12-2024 ambulatory MARIBEL FAY Facility:[facility] Start: 06-08-2024 End: 06-12-2024 Telephone encounter Tosha Pelaez APRN.SHELF FILLER Work Phone: [facility] Comment on above: Results Start: 06-07-2024 End: 06-07-2024 ambulatory Maribel Fay MD Work Phone: [facility] Comment on above: Dizziness Start: 06-06-2024 End: 06-06-2024 Subsequent hospital visit by physician [facility] [place] Work Phone: Radiology Comment on above: Pain and swelling of right wrist [M25.531, M25.431] Start: 06-06-2024 End: 06-06-2024 Patient encounter procedure Tosha Podlogjeffry VP MARKETING.SHELF FILLER Work Phone: [facility] [place] Comment on above: Pain and swelling of right wrist (Primary Dx) Start: 06-06-2024 End: 06-06-2024 ambulatory MARIBEL FAY Facility:[facility] Start: 06-05-2024 End: 06-06-2024 ambulatory Maribel Fay MD Work Phone: [facility] [place] Comment on above: Wrist Pain Start: 05-16-2024 End: 05-16-2024 Patient encounter procedure Tosha Podlogjeffry VP MARKETING.SHELF FILLER Work Phone: 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 [place] Comment on above: Refill Request Start: 04-19-2024 Refill Maribel Fay MD Work Phone: [facility] [place] Comment on above: Refill Request Start: 04-11-2024 Refill Maribel Fay MD Work Phone: [facility] [place] Comment on above: Refill Request Start: 04-06-2024 End: 04-06-2024 ambulatory MARIBEL FAY Facility:[facility] Start: 04-06-2024 End: 04-06-2024 Patient encounter procedure Karel Santiago Work Phone: Podiatry Comment on above: Onychomycosis (Prima ry Dx); Pain in toe of right foot; Pain in toe of left foot; DM type 2 with diabetic peripheral neuropathy (HCC) Start: 03-26-2024 Refill Maribel Fay MD Work Phone: [facility] Comment on above: Refill Request Start: 02-14-2024 End: 02-14-2024 Patient encounter procedure Maribel Fay MD Work Phone: [facility] Comment on above: 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); Stage 4 chronic kidney disease (HCC); PAD (peripheral artery disease) (HCC) Start: 01-11-2024 Refill Maribel Fay MD Work Phone: [facility] Comment on above: Refill Request Start: 12-30-2023 End: 12-30-2023 Patient encounter procedure Karel Jack Work Phone: Podiatry Comment on above: Onychomycosis (Prima ry Dx); Pain in toe of right foot; Pain in toe of left foot; DM type 2 with diabetic peripheral neuropathy (HCC) Start: 12-23-2023 End: 12-23-2023 Patient encounter procedure Maribel Fay MD Work Phone: [facility] Comment on above: 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); Hypoglycemia; Essential hypertension; Mixed hyperlipidemia; Stage 3b chronic kidney disease (HCC); COVID-19 vaccine administered Start: 12-19-2023 Telephone encounter Maik Fay MD Work Phone: [facility] Comment on above: Patient Update Start: 11-28-2023 Telephone encounter Maik Fay MD Work Phone: [facility] Comment on above: medication not on cu rrent med list Start: 11-15-2023 End: 11-15-2023 Patient encounter procedure Maribel Fay MD Work Phone: [facility] Comment on above: 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); Hypoglycemia; Essential hypertension; Mixed hyperlipidemia; Stage 3b chronic kidney disease (HCC) Start: 11-07-2023 End: 11-07-2023 ambulatory Jhoan Lorenzo [facility] Physical Therapy Comment on above: Arthritis of left hi p (Primary Dx) Start: 10-31-2023 End: 10-31-2023 ambulatory Carmen Penaloza ASSISTANT ANALYST Work Phone: [facility] Physical Therapy Comment on above: Arthritis of left hi p (Primary Dx) Start: 10-26-2023 Telephone encounter Maik Fay MD Work Phone: [facility] Comment on above: Patient Request Start: 10-25-2023 End: 10-25-2023 ambulatory Carmen Penaloza ASSISTANT ANALYST Work Phone: [facility] Therapy Comment on above: Arthritis of left hi p (Primary Dx) Start: 10-19-2023 Telephone encounter Jhoan Proctor PT [facility] Comment on above: Patient Question (PT ) Start: 10-17-2023 End: 10-17-2023 ambulatory Jhoan Proctor PT [facility] Therapy Comment on above: Arthritis of left hi p (Primary Dx) Start: 09-03-2023 End: 09-04-2023 Evaluation and management of inpatient [facility] Work Phone: Start: 09-03-2023 End: 09-04-2023 observation encounter [facility] Work Phone: Start: 09-02-2023 ambulatory Maribel Fay MD Work Phone: [facility] Comment on above: Dizziness Start: 09-02-2023 End: 09-02-2023 Emergency department patient visit [facility] Work Phone: Start: 08-17-2023 Telephone encounter Tosha haynes APRN.SHELF FILLER Work Phone: [facility] Comment on above: Results Start: 08-15-2023 End: 08-15-2023 Patient encounter procedure Tosha Pelaez APRN.SHELF FILLER Work Phone: [facility] Comment on above: Type 2 diabetes hetal itus with stage 3b chronic kidney disease, with long-term current use of insulin (HCC) (Primary Dx); Essential hypertension; Mixed hyperlipidemia; Restless leg syndrome Start: 08-08-2023 Refill Maribel Fay MD Work Phone: [facility] Comment on above: Refill Request Start: 08-02-2023 Telephone encounter Maik Fay MD Work Phone: [facility] Comment on above: Insurance Authorizat ion (Embrace talk test strips) Start: 07-28-2023 Refill Maribel Fay MD Work Phone: [facility] Comment on above: Refill Request Start: 07-08-2023 Refill Maribel Fay MD Work Phone: [facility] Comment on above: Refill Request Start: 06-27-2023 End: 06-27-2023 Patient encounter procedure Karel Santiago Work Phone: Podiatry Comment on above: 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); Onychomycosis; Pain in toe of right foot; Pain in toe of left foot Start: 06-02-2023 Refill Maribel Fay MD Work Phone: [facility] Comment on above: Refill Request Start: 05-16-2023 Telephone encounter Tosha haynes APRN.CNP Work Phone: [facility] Comment on above: Results Start: 04-20-2023 End: 04-20-2023 [facility] Work Phone: [facility] [place] Start: 04-20-2023 End: 04-20-2023 [facility] Work Phone: Pre Anesthesia Comment on above: Preoperative examina tion (Primary Dx); DM type 2 with diabetic peripheral neuropathy (HCC); Restless leg syndrome; PAD (peripheral artery disease) (HCC); Essential hypertension; Mixed hyperlipidemia; Diverticulosis of colon; Stage 3b chronic kidney disease (HCC); Type 2 diabetes mellitus with stage 3b chronic kidney disease, with long-term current use of insulin (HCC); Pernicious anemia Start: 04-20-2023 End: 04-20-2023 Preprocedural examination done [facility] [place] 1 Work Phone: [facility] Work Phone: Start: 04-14-2023 Orders Only Savana capps DO Work Phone: Orthopaedics Comment on above: Carpal tunnel syndro me of right wrist (Primary Dx) Start: 04-11-2023 Telephone encounter Tosha haynes APRN.CNP Work Phone: 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 [place] Comment on above: Results Start: 11-09-2022 End: 11-09-2022 Patient encounter procedure Maribel Fay MD Work Phone: 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); Essential hypertension; Mixed hyperlipidemia; Restless leg syndrome; Stage 3b chronic kidney disease (HCC); PAD (peripheral artery disease) (HCC); Pernicious anemia; Idiopathic chronic gout without tophus, unspecified site; Carpal tunnel syndrome, right; Type 2 diabetes mellitus with diabetic peripheral angiopathy without gangrene, with long-term current use of insulin (HCC); Type 2 diabetes mellitus with stage 3b chronic kidney disease, with long-term current use of insulin (HCC) Start: 09-14-2022 Refill Maribel Fay MD Work Phone: [facility] [place] Comment on above: Refill Request Start: 09-14-2022 Refill Bhavani Keya zuleta APRN.CNP Work Phone: [facility] [place] Comment on above: Med Change Request; Refill Request Start: 08-31-2022 End: 08-31-2022 Patient encounter procedure Karel Payanswapnil Work Phone: Podiatry Comment on above: Onychomycosis (Prima ry Dx); DM type 2 with diabetic peripheral neuropathy (HCC); Pain in toe of right foot; Pain in toe of left foot Start: 08-10-2022 Telephone encounter Maik Fay MD Work Phone: [facility] Comment on above: Results Start: 08-09-2022 End: 08-09-2022 Patient encounter procedure Maribel Fay MD Work Phone: [facility] Comment on above: 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); Essential hypertension; Mixed hyperlipidemia; Need for influenza vaccination Start: 06-24-2022 Refill Maribel Fay MD Work Phone: [facility] Comment on above: Refill Request Start: 06-17-2022 Refill Maribel Fay MD Work Phone: [facility] Comment on above: Refill Request Start: 05-11-2022 Telephone encounter Maik Fay MD Work Phone: [facility] Comment on above: Results Start: 05-05-2022 End: 05-05-2022 Patient encounter procedure Maribel Fay MD Work Phone: [facility] Comment on above: 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); Viral gastroenteritis; Essential hypertension; Mixed hyperlipidemia; Restless leg syndrome; Acute gout of right hand, unspecified cause; Stage 3b chronic kidney disease (HCC); Fall in home, initial encounter Start: 02-24-2022 Refill Maribel Fay MD Work Phone: [facility] Comment on above: Refill Request Start: 02-12-2022 End: 02-12-2022 Patient encounter procedure Karel Santiago Work Phone: Podiatry Comment on above: Onychomycosis (Prima ry Dx); Pain in toe of right foot; Pain in toe of left foot; DM type 2 with diabetic peripheral neuropathy (HCC) Start: 02-02-2022 End: 02-02-2022 Patient encounter procedure Maribel Fay MD Work Phone: [facility] Comment on above: 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); Toe injury, right, initial encounter; Stage 3b chronic kidney disease (HCC); Essential hypertension; Mixed hyperlipidemia; PAD (peripheral artery disease) ([facility]); Restless leg syndrome Start: 01-20-2022 Telephone encounter Maik Fay MD Work Phone: [facility] Comment on above: Patient Update Start: 08-19-2020 End: 08-19-2020 Subsequent hospital visit by physician [facility] [place] Work Phone: Radiology Comment on above: Acute right ankle pa in [M25.571] Start: 10-11-2014 End: 11-24-2015 Patient encounter procedure Maribel Fay MD Work Phone: [facility] Start: 09-28-2013 End: 11-24-2015 Patient encounter procedure Maribel Fay MD Work Phone: [facility] Procedures Date Procedure Procedure Detail Performing Clinician Start: 02-16-[address] Hesham Fay MD Work Phone: Start: 02-16-2025 CT angiography of head and neck Dr. Lizbeth Fay MD Work Phone: Start: 02-16-2025 CT of head without contrast Dr. Angelica Fay MD Work Phone: Start: 01-22-2025 Radex spine cervical 4 or 5 views Lai Fay MD Work Phone: Start: 12-28-2024 SUTURE REMOVAL PROCECDURE (W NOTE) Kate Mathews PA-C Work Phone: Start: 10-22-2024 Nerve conduction studies 5-6 studies Maribel Fay MD Work Phone: Start: 07-12-2024 Colonoscopy flx dx w/collj spec when pfrmd Mariah Odonnell VP MARKETING.SHELF FILLER Work Phone: Start: 07-12-2024 Esophagogastroduodenoscopy transoral diagnostic Mariah Odonnell VP MARKETING.SHELF FILLER Work Phone: Start: 07-12-2024 Gluc bld gluc mntr dev cleared fda spec home use Simon Driscoll MD Work Phone: Start: 12-23-2023 [employer] COVID-19 VACCINE ( SEASON) AGE 12+ YR Maribel Fay MD Work Phone: Start: 11-15-2023 Gluc bld gluc mntr dev cleared fda spec home use Maribel Fay MD Work Phone: Start: 09-03-2023 Plain chest X-ray Start: 09-03-2023 CT cervical spine without contrast Start: 09-03-2023 CT of head without contrast Start: 09-02-2023 Urine culture Start: 09-02-2023 CT of head without contrast Start: 08-09-2022 INFLUENZA SEASONAL QUADRIVALENT HIGH DOSE AGE 65+ Maribel Fay MD Work Phone: Start: 08-19-2020 Radex ankle complete minimum 3 views Maribel Fay MD Work Phone: History of decompres alejandro of median nerve S/P carpal tunnel release Maribel Fay MD Work Phone: History of decompres alejandro of median nerve S/P carpal tunnel release Tanika Mathews PA-C Work Phone: Plan of Treatment Date Care Activity Detail Author Start: 11-19-2025 Hepatitis B surface antibody level LDL Cholesterol [facility] Start: 11-19-2025 RSV Vaccine (1 - 1-d ose 75+ series) RSV Vaccine (1 - 1-dose 75+ series) [facility] Comment on above: Postponed from 03/30 (Declined at this time) Start: 11-19-2025 Shingrix Vaccine (2 of 2) Shingrix Vaccine (2 of 2) [facility] Comment on above: Postponed from 10/04 (Declined at this time) Start: 11-19-2025 Urine microalbumin profile DTaP,Tdap,Td Vaccine (2 - Tdap) [facility] Comment on above: Postponed from 06/06 (Declined at this time) Start: 08-17-2025 Diabetic foot examination Diabetic Foot Exam [facility] Start: 08-17-2025 Hepatitis B screening Urine Albumin:Creatinine Ratio [facility] Start: 05-19-2025 Hemoglobin A1c measurement HbA1C [facility] Start: 04-26-2025 End: 04-26-2025 Patient encounter procedure 04/26/2025 1:00 PM EDT Office Visit Podiatry [address] [place] [address] Karel Santiago [address] [place] [address] 3 month follow up nail care Podiatry Comment on above: 3 month follow up na il care Start: 04-06-2025 Diabetic foot examination Diabetic Foot Exam [facility] Start: 03-04-2025 End: 03-04-2025 Patient encounter procedure 03/04/2025 8:15 AM EDT Office Visit Orthopaedics [address] [place] [address] Cruzito Burns MD [address] [place] [address] Acute hip pain, left [M25.552] Orthopaedics Comment on above: Acute hip pain, left [M25.552] Start: 02-19-2025 Hemoglobin A1c measurement HbA1C [facility] Start: 02-18-2025 End: 02-18-2025 Patient encounter procedure 02/18/2025 2:00 PM EDT Office Visit [facility] [place] [address] [facility] [place] [address] Maribel Fay MD [address] [place] [address] 4 week follow up- routine [facility] [place] Comment on above: 4 week follow up- ro utine Start: 02-16-2025 End: 02-16-2025 [facility] Start: 02-16-2025 Admission procedure [facility] Start: 02-16-2025 Oxygen therapy [facility] Start: 02-16-2025 [facility] Start: 02-08-2025 End: 02-08-2025 ambulatory 02/08/2025 10:30 AM EDT OT/PT/Speech Visit [facility] [address] [place] [address] Jhoan Proctro, PT M54.2 (ICD-10-CM) - Neck pain [facility] Comment on above: M54.2 (ICD-10-CM) - Neck pain Start: 01-24-2025 End: 01-24-2025 ambulatory 01/24/2025 10:00 AM EDT OT/PT/Speech Visit [facility] [address] [place] [address] Jhoan Proctor, PT Neck pain [M54.2]; Acute hip pain, left [M25.552] [facility] Comment on above: Neck pain [M54.2]; A cute hip pain, left [M25.552] Start: 01-22-2025 End: 01-22-2025 Patient encounter procedure 01/22/2025 1:40 PM EDT Office Visit [facility] Medicine [place] [address] [facility] [place] [address] Maribel Fay MD [address] [place] [address] 4 week follow up sugar readings [facility] [place] Comment on above: 4 week follow up sug ar readings Start: 01-18-2025 End: 01-18-2025 Patient encounter procedure Podiatry Comment on above: 3 month follow up Start: 01-01-2025 Covid-19 Vaccine ( season) Covid-19 Vaccine ( season) [facility] Start: 12-28-2024 End: 12-28-2024 Patient encounter procedure 12/28/2024 10:30 AM EDT Office Visit Orthopaedics [address] [address] Tanika Mathews PA-C [address] [place], [place] [id number] 1st post op Lt ctr 12/13/24 Orthopaedics Comment on above: 1st post op Lt ctr Start: 12-20-2024 End: 12-20-2024 Patient encounter procedure 12/20/2024 1:40 PM EDT Office Visit [facility] [place] [address] [place] [address] Maribel Fay MD [address] [place] [address] 4 week follow up [facility] [place] Comment on above: 4 week follow up Start: 12-19-2024 Hepatitis B surface antibody level LDL Cholesterol [facility] Start: 12-13-2024 End: 12-13-2024 Admission to same day surgery center 12/13/2024 10:10 AM EDT - 12/13/2024 11:10 AM EDT Surgery [facility] [address] [place] [address] Savana De Oliveira DO [address] [place], [place] [id number] DECOMPRESSION NERVE MEDIAN CARPAL TUNNEL [facility] Comment on above: DECOMPRESSION NERVE MEDIAN CARPAL TUNNEL Start: 12-13-2024 End: 12-13-2024 Neuroplasty &/transpos median nrv carpal tunne DECOMPRESSION NERVE MEDIAN CARPAL TUNNEL Carpal tunnel syndrome of left wrist 12/13/2024 10:10 AM EDT ME OR Start: 12-13-2024 Subsequent hospital visit by physician 12/13/2024 10:10 AM EDT Hospital Encounter [facility] [address] [place] [address] Savana De Oliveira DO [address] [place] [address] Carpal tunnel syndrome of left wrist [G56.02] [facility] Comment on above: Carpal tunnel syndro me of left wrist [G56.02] Start: 11-30-2024 End: 11-30-2024 Patient encounter procedure 11/30/2024 10:30 AM EDT Office Visit Orthopaedics [address] [address] Savana De Oliveira, [address] [address] Numbness and tingling in left hand [R20.0, R20.2] Orthopaedics Comment on above: Numbness and tinglin g in left hand [R20.0, R20.2] Start: 11-19-2024 End: 11-19-2024 Patient encounter procedure 11/19/2024 1:00 PM EST [facility] Visit [facility] [address] [place] [address] Maribel Fay MD [address] [place] [address] [facility] [place] Comment on above: 3 month follow up Start: 11-16-2024 Hemoglobin A1c measurement HbA1C [facility] Start: 11-15-2024 Covid-19 Vaccine ( season) Covid-19 Vaccine () [facility] Comment on above: Postponed from 09/01 (Declined at this time) Start: 11-15-2024 Glaucoma screening Dilated Retinal E xam [facility] Start: 11-15-2024 RSV Vaccine (1 - 1-d ose 60+ series) RSV Vaccine (1 - 1-dose 60+ series) [facility] Comment on above: Postponed from 03/30 (Declined at this time) Start: 11-15-2024 RSV Vaccine (1 - 1-d ose 75+ series) RSV Vaccine (1 - 1-dose 75+ series) [facility] Comment on above: Postponed from 03/30 (Declined at this time) Start: 11-15-2024 Shingrix Vaccine (2 of 2) Shingrix Vaccine (2 of 2) [facility] Comment on above: Postponed from 10/04 (Declined at this time) Start: 11-15-2024 Urine microalbumin profile DTaP,Tdap,Td Vaccine (2 - Tdap) [facility] Comment on above: Postponed from 06/06 (Declined at this time) Start: 10-22-2024 End: 10-22-2024 ambulatory 10/22/2024 12:30 PM EST Procedure Neurology [address] [place] [address] r L CTS Neurology Comment on above: r L CTS Start: 10-19-2024 End: 10-19-2024 Patient encounter procedure Podiatry Comment on above: 3 month follow up na nj care Start: 10-08-2024 End: 10-08-2024 ambulatory Neurology Comment on above: Numbness and tinglin g in left hand [R20.0, R20.2] Median Nerve/CTS(STA NDARD), Left r L CTS Start: 09-27-2024 End: 09-27-2024 Patient encounter procedure 09/27/2024 10:20 AM EST Office Visit [facility] [place] [address] [place] [address] Maribel Fay MD [address] [place] [id number] follow up- left wrist and blood sugars [facility] [place] Comment on above: follow up- left wris t and blood sugars Start: 09-19-2024 Advance Directive Discussion Advance Directive Discussion [facility] Start: 09-06-2024 End: 09-06-2024 Patient encounter procedure 09/06/2024 10:40 AM EST Office Visit [facility] [place] [address] [facility] [place] [address] Maribel Fay MD [address] [place] [address] -Follow up blood sugars (to bring last 2-3 weeks of blood sugars) [facility] [place] Comment on above: -Follow up blood sug ars (to bring last 2-3 weeks of blood sugars) Start: 08-17-2024 End: 08-17-2024 Patient encounter procedure 08/17/2024 11:00 AM EST [facility] Visit [facility] [address] [facility] [place] [address] Maribel Fay MD [address] [place] [address] 3 month follow up [facility] [place] Comment on above: 3 month follow up Start: 08-16-2024 End: 11-15-2024 Hemoglobin A1c in Blood HEMOGLOBIN A1C Lab Routine DM type 2 with diabetic peripheral neuropathy (HCC) Expected: 08/16/2024, Expires: 11/15/2024 [facility] Work Phone: Comment on above: Expected: 08/16/2024 , Expires: 11/15/2024 Start: 08-15-2024 Hemoglobin A1c measurement HbA1C [facility] Start: 08-15-2024 Hepatitis B screening Urine Albumin:Creatinine Ratio [facility] Start: 07-25-2024 End: 10-24-2024 Ferritin [Mass/volume] in Serum or Plasma FERRITIN Lab Routine Elevated ferritin Expected: 07/25/2024, Expires: 10/24/2024 [facility] Work Phone: Comment on above: Expected: 07/25/2024 , Expires: 10/24/2024 Start: 07-23-2024 End: 07-23-2024 Patient encounter procedure 07/23/2024 11:30 AM EST Office Visit General Surgery [address] [place] [address] Mariah Odonnell APRN.SHELF FILLER [address] [place] [address] 07-12 colonoscopy follow up General Surgery Comment on above: 07-12 colonoscopy fo llow up Start: 07-13-2024 End: 07-13-2024 Patient encounter procedure 07/13/2024 2:20 PM EDT Office Visit Podiatry [address] [place] [address] Karel Santiago [address] [place] [address] 3 MONTH FOLLOW UP NAIL CARE Podiatry Comment on above: 3 MONTH FOLLOW UP NA IL CARE Start: 07-12-2024 End: 07-12-2024 Patient encounter procedure Ambulatory Surgery Start: 06-20-2024 Hemoglobin A1c measurement HbA1C [facility] Start: 06-19-2024 End: 06-19-2024 Patient encounter procedure 06/19/2024 11:30 AM EDT Office Visit General Surgery [address] [place] [address] Mariah Odonnell APRN.SHELF FILLER [address] [place] [address] Positive fecal occult blood test General Surgery Comment on above: Positive fecal occul t blood test Start: 06-08-2024 End: 09-07-2024 Cobalamin (Vitamin B12) [Mass/volume] in Serum or Plasma VITAMIN B12 Lab Routine Mild anemia Expected: 06/08/2024, Expires: 09/07/2024 [facility] Comment on above: Expected: 06/08/2024 , Expires: 09/07/2024 Start: 06-08-2024 End: 09-07-2024 Ferritin [Mass/volume] in Serum or Plasma FERRITIN Lab Routine Mild anemia Expected: 06/08/2024, Expires: 09/07/2024 [facility] Work Phone: Comment on above: Expected: 06/08/2024 , Expires: 09/07/2024 Start: 06-08-2024 End: 09-07-2024 Folate [Mass/volume] in Serum or Plasma FOLATE, SERUM Lab Routine Mild anemia Expected: 06/08/2024, Expires: 09/07/2024 [facility] Comment on above: Expected: 06/08/2024 , Expires: 09/07/2024 Start: 06-08-2024 End: 09-07-2024 Iron and Iron binding capacity panel - Serum or Plasma IRON AND TIBC Lab Routine Mild anemia Expected: 06/08/2024, Expires: 09/07/2024 [facility] Comment on above: Expected: 06/08/2024 , Expires: 09/07/2024 Start: 06-06-2024 End: 09-05-2024 Urate [Mass/volume] in Serum or Plasma [facility] Comment on above: Expected: 06/06/2024 , Expires: 09/05/2024 Start: 06-06-2024 End: 06-06-2024 Patient encounter procedure 06/06/2024 12:20 PM EDT Office Visit Family Medicine [place] [address] [place] [address] Podlogar, MARIO Givens.SHELF FILLER [address] [place] [address] Right wrist pain. See triage. [facility] Comment on above: Right wrist pain. Se e triage. Start: 05-20-2024 Covid-19 Vaccine ( season) Covid-19 Vaccine () [facility] Start: 05-20-2024 Covid-19 Vaccine ( season) Covid-19 Vaccine ( season) [facility] Start: 05-20-2024 Influenza vaccination Influenza Vacc ine (#1) [facility] Start: 05-16-2024 End: 08-15-2024 Comprehensive metabolic 2000 panel - Serum or Plasma [facility] Comment on above: Expected: 05/16/2024 , Expires: 08/15/2024 Start: 05-16-2024 End: 08-15-2024 Hemoglobin A1c in Blood HEMOGLOBIN A1C Lab Routine DM type 2 with diabetic peripheral neuropathy (HCC) Expected: 05/16/2024, Expires: 08/15/2024 [facility] Work Phone: Comment on above: Expected: 05/16/2024 , Expires: 08/15/2024 Start: 05-16-2024 End: 05-16-2024 Patient encounter procedure 05/16/2024 10:40 AM EDT Office Visit Family Medicine [place] [address] [facility] [place] [address] PodTosha barajas APRN.SHELF FILLER [address] [place] [address] 3 month follow up Family Sigrid [place] Comment on above: 3 month follow up Start: 04-23-2024 Covid-19 Vaccine () Covid-19 Vaccine () [facility] Start: 04-06-2024 End: 04-06-2024 Patient encounter procedure 04/06/2024 1:00 PM EDT Office Visit Podiatry [address] [place] [address] Karel Santiago [address] [place] [address] 3 month follow up nail care Podiatry Comment on above: 3 month follow up na il care Start: 03-10-2024 3 comp foot exam completed DIABETIC FOOT EXAM [facility] Start: 03-10-2024 Diabetic foot examination Diabetic Foot Exam [facility] Start: 02-14-2024 End: 02-14-2024 Patient encounter procedure 02/14/2024 11:00 AM EDT [facility] [place] [address] [place] [address] Maribel Fay MD [address] [place] [address] 3 month follow up Family Sigrid [place] Comment on above: 3 month follow up Start: 11-15-2023 End: 02-14-2024 Comprehensive metabolic 2000 panel - Serum or Plasma COMP METABOLIC PANEL Lab Routine DM type 2 with diabetic peripheral neuropathy (HCC) Expected: 11/15/2023, Expires: 02/14/2024 [facility] Work Phone: Comment on above: Expected: 11/15/2023 , Expires: 02/14/2024 Start: 11-15-2023 End: 02-14-2024 Hemoglobin A1c in Blood HGB A1C Lab Routine DM type 2 with diabetic peripheral neuropathy (HCC) Expected: 11/15/2023, Expires: 02/14/2024 [facility] Work Phone: Comment on above: Expected: 11/15/2023 , Expires: 02/14/2024 Start: 11-15-2023 Hemoglobin A1c measurement HbA1C [facility] Start: 11-15-2023 Hemoglobin A1c/Hemoglobin.total in Blood HbA1C [facility] Start: 11-15-2023 End: 02-14-2024 LIPID PANEL, NONFASTING LIPID PANEL, NONFASTING Lab Routine DM type 2 with diabetic peripheral neuropathy (HCC) Expected: 11/15/2023, Expires: 02/14/2024 [facility] Work Phone: Comment on above: Expected: 11/15/2023 , Expires: 02/14/2024 Start: 11-09-2023 Hepatitis B surface antibody level LDL CHOLESTEROL [facility] Start: 10-06-2023 Glaucoma screening Dilated Retinal E xam [facility] Start: 10-06-2023 Hepatitis C antibody , confirmatory test DILATED RETINAL EXAM [facility] Start: 10-04-2023 Shingrix Vaccine (2 of 2) Shingrix Vaccine (2 of 2) [facility] Start: 09-19-2023 Advance Directive Discussion Advance Directive Discussion [facility] Start: 09-19-2023 Behavioral Health Screening Behavioral Health Screening [facility] Start: 09-19-2023 Depression Assessment Depression Ass essment [facility] Start: 09-04-2023 Patient discharge [facility] Start: 09-03-2023 Referral to service [facility] Start: 09-03-2023 Application of intermittent pneumatic compression device [facility] Start: 09-03-2023 Following clinical pathway protocol [facility] Start: 09-03-2023 Assessment of risk o f venous thromboembolism [facility] Start: 09-03-2023 Care regimes management [facility] Start: 09-03-2023 Fall prevention [facility] Start: 09-03-2023 Inhalation therapy procedure [facility] Start: 09-03-2023 Insertion of cathete r into peripheral vein [facility] Start: 09-03-2023 Introduction of urin nazario catheter [facility] Start: 09-03-2023 Measuring intake and output [facility] Start: 09-03-2023 Notification of physician [facility] Start: 09-03-2023 Oxygen therapy [facility] Start: 09-03-2023 Providing care accor ding to standard [facility] Start: 09-03-2023 Provision of activit y privileges [facility] Start: 09-03-2023 Referral to occupati onal therapist [facility] Start: 09-03-2023 Referral to service [facility] Start: 09-03-2023 [facility] Start: 09-03-2023 Verification routine [facility] Start: 09-03-2023 Hospital admission, emergency, from emergency room, medical nature [facility] Start: 09-03-2023 Admission procedure [facility] Start: 09-02-2023 Bacteria identified in Urine by Culture Urine Culture [facility] Start: 09-02-2023 End: 09-02-2023 [facility] Start: 09-01-2023 Covid-19 Vaccine () Covid-19 Vaccine () [facility] Start: 08-15-2023 End: 11-14-2023 ALBUMIN/CREAT RATIO RND UR [facility] Work Phone: Comment on above: Expected: 08/15/2023 , Expires: 11/14/2023 Start: 08-11-2023 Hemoglobin A1c/Hemoglobin.total in Blood HBA1C [facility] Start: 08-09-2023 Hepatitis B screening URINE ALBUMIN:CREATININE RATIO [facility] Start: 05-20-2023 Covid-19 Vaccine () Covid-19 Vaccine () [facility] Start: 05-20-2023 Influenza vaccination C [facility] Start: 05-11-2023 Hemoglobin A1c/Hemoglobin.total in Blood HBA1C [facility] Start: 05-09-2023 Hemoglobin A1c/Hemoglobin.total in Blood HBA1C [facility] Start: 02-06-2023 Hemoglobin A1c/Hemoglobin.total in Blood HBA1C [facility] Start: 02-02-2023 3 comp foot exam completed DIABETIC FOOT EXAM [facility] Start: 11-13-2022 COVID-19 VACCINE (6 - Pfizer series) COVID-19 VACCINE (6 - Pfizer series) [facility] Start: 11-11-2022 End: 01-11-2023 Comprehensive metabolic 2000 panel - Serum or Plasma COMP METABOLIC PANEL Lab Routine Mixed hyperlipidemia Expected: 11/11/2022, Expires: 01/11/2023 [facility] Work Phone: Comment on above: Expected: 11/11/2022 , Expires: 01/11/2023 Start: 11-11-2022 End: 01-11-2023 LIPID PANEL, NONFASTING LIPID PANEL, NONFASTING Lab Routine Mixed hyperlipidemia Expected: 11/11/2022, Expires: 01/11/2023 [facility] Work Phone: Comment on above: Expected: 11/11/2022 , Expires: 01/11/2023 Start: 11-09-2022 End: 01-09-2023 CBC W Auto Differential panel - Blood [facility] Work Phone: Comment on above: Expected: 11/09/2022 , Expires: 01/09/2023 Start: 11-09-2022 End: 01-09-2023 Cobalamin (Vitamin B12) [Mass/volume] in Serum or Plasma [facility] Work Phone: Comment on above: Expected: 11/09/2022 , Expires: 01/09/2023 Start: 11-09-2022 End: 01-09-2023 Hemoglobin A1c in Blood [facility] Work Phone: Comment on above: Expected: 11/09/2022 , Expires: 01/09/2023 Start: 11-09-2022 End: 01-09-2023 LIPID PANEL, NONFASTING [facility] Work Phone: Comment on above: Expected: 11/09/2022 , Expires: 01/09/2023 Start: 11-09-2022 End: 01-09-2023 Urate [Mass/volume] in Serum or Plasma [facility] Work Phone: Comment on above: Expected: 11/09/2022 , Expires: 01/09/2023 Start: 11-03-2022 Hepatitis B surface antibody level LDL CHOLESTEROL [facility] Start: 09-30-2022 Hepatitis C antibody , confirmatory test DILATED RETINAL EXAM [facility] Start: 09-19-2022 ADVANCE DIRECTIVE DISCUSSION ADVANCE DIRECTIVE DISCUSSION [facility] Start: 09-19-2022 DEPRESSION ASSESSMENT DEPRESSION ASS ESSMENT [facility] Start: 08-11-2022 End: 10-11-2022 Hemoglobin A1c in Blood HGB A1C Lab Routine DM type 2 with diabetic peripheral neuropathy (HCC) Expected: 08/11/2022, Expires: 10/11/2022 [facility] Work Phone: Comment on above: Expected: 08/11/2022 , Expires: 10/11/2022 Start: 08-09-2022 End: 10-09-2022 Comprehensive metabolic 2000 panel - Serum or Plasma [facility] Work Phone: Comment on above: Expected: 08/09/2022 , Expires: 10/09/2022 Start: 08-05-2022 Hemoglobin A1c/Hemoglobin.total in Blood HBA1C [facility] Start: 07-22-2022 3 comp foot exam completed DIABETIC FOOT EXAM [facility] Start: 07-22-2022 Hepatitis B screening URINE ALBUMIN:CREATININE RATIO [facility] Start: 05-20-2022 Influenza vaccination INFLUENZA (#1) [facility] Start: 05-11-2022 End: 07-11-2022 Basic metabolic 2000 panel - Serum or Plasma BASIC METABOLIC PNL Lab Routine Stage 3b chronic kidney disease (HCC) Expected: 05/11/2022, Expires: 07/11/2022 [facility] Work Phone: Comment on above: Expected: 05/11/2022 , Expires: 07/11/2022 Start: 05-05-2022 End: 07-05-2022 Comprehensive metabolic 2000 panel - Serum or Plasma [facility] Work Phone: Comment on above: Expected: 05/05/2022 , Expires: 07/05/2022 Start: 05-05-2022 End: 07-05-2022 Hemoglobin A1c in Blood [facility] Work Phone: Comment on above: Expected: 05/05/2022 , Expires: 07/05/2022 Start: 05-03-2022 Hemoglobin A1c/Hemoglobin.total in Blood HBA1C [facility] Start: 03-19-2022 COVID-19 VACCINE (5 - Booster for Pfizer series) COVID-19 VACCINE (5 - Booster for Pfizer series) [facility] Start: 02-02-2022 End: 04-04-2022 Comprehensive metabolic 2000 panel - Serum or Plasma [facility] Work Phone: Comment on above: Expected: 02/02/2022 , Expires: 04/04/2022 Start: 02-02-2022 End: 04-04-2022 Hemoglobin A1c/Hemoglobin.total in Blood [facility] Work Phone: Comment on above: Expected: 02/02/2022 , Expires: 04/04/2022 Start: 09-19-2021 ADVANCE DIRECTIVE DISCUSSION ADVANCE DIRECTIVE DISCUSSION [facility] Start: 09-19-2021 DEPRESSION ASSESSMENT DEPRESSION ASS ESSMENT [facility] Start: 06-06-2018 Urine microalbumin profile [facility] Start: 1995 Hepatitis B Vaccine (1 of 3 - Risk 3-dose series) Hepatitis B Vaccine (1 of 3 - Risk 3-dose series) [facility] Start: 1995 RSV Vaccine (1 - 1-d ose 60+ series) RSV Vaccine (1 - 1-dose 60+ series) [facility] Start: 1985 SHINGRIX VACCINE (1 of 2) SHINGRIX VACCINE (1 of 2) [facility] Start: 1953 Anxiety Screening Anxiety Screening [facility] Start: 1953 Depression Screening Depression Scre ening [facility] Cobalamin (Vitamin B 12) [Mass/volume] in Serum or Plasma VITAMIN B12 Lab Routine Mild anemia 06/12/2024 11:04 AM EDT [facility] End: 06-19-2025 EGD DIAGNOSTIC EGD DIAGNOSTIC Endoscopy Routine Positive fecal occult blood test 1 Occurrences starting 06/19/2024 until 06/19/2025 [facility] Comment on above: 1 Occurrences starti ng 06/19/2024 until 06/19/2025 End: 09-06-2025 EMG(NEURO/NI) EMG(NEURO/NI) EMG Routine Numbness and tingling in left hand 1 Occurrences starting 09/06/2024 until 09/06/2025 [facility] Work Phone: Comment on above: 1 Occurrences starti ng 09/06/2024 until 09/06/2025 Ferritin [Mass/volum e] in Serum or Plasma FERRITIN Lab Routine Mild anemia 06/12/2024 11:04 AM T [facility] End: 06-19-2025 Flexible sigmoidoscopy study COLONOSCOPY DIAGNOSTIC Endoscopy Routine Positive fecal occult blood test History of colonic polyps 1 Occurrences starting 06/19/2024 until 06/19/2025 [facility] Work Phone: Comment on above: 1 Occurrences starti ng 06/19/2024 until 06/19/2025 Folate [Mass/volume] in Serum or Plasma FOLATE, SERUM Lab Routine Mild anemia 06/12/2024 11:04 AM [facility] Glucose [Mass/volume ] in Serum or Plasma GLUCOSE, BLOOD (POC) Lab Routine DM type 2 with diabetic peripheral neuropathy (HCC) Ordered: 11/15/2023 [facility] Work Phone: Comment on above: Ordered: 11/15/2023 Hemoglobin.gastroint madison nal.lower [Presence] in Stool by Immunoassay IMMUNOCHEMICAL FECAL OCCULT BLOOD TEST Lab Routine Mild anemia Ordered: 06/08/2024 [facility] Comment on above: Ordered: 06/08/2024 Iron and Iron bindin g capacity panel - Serum or Plasma IRON AND TIBC Lab Routine Mild anemia 06/12/2024 11:04 AM EDT [facility] Patient Education Urinary Tract Infections in Women ED BPV Vertigo [facility] Work Phone: Patient referral [facility] Work Phone: End: 02-21-2024 [facility] Vascular Lab Routine PAD (peripheral artery disease) (HCC) 1 Occurrences starting 11/09/2022 until 11/09/2023 [facility] Work Phone: Comment on above: 1 Occurrences starti ng 11/09/2022 until 11/09/2023 SURGICAL PATHOLOGY [facility] Work Phone: Comment on above: Release Upon Orderin g for 1 Occurrences starting 07/12/2024, 1 completed Troponin T.cardiac [Mass/volume] in Serum or Plasma by High sensitivity method [facility] End: 07-06-2025 XR Wrist - right PA and Lateral and Oblique XR WRIST GENERAL 3V PA/LAT/OBL RIGHT Radiology Routine Pain and swelling of right wrist 1 Occurrences starting 06/06/2024 until 07/06/2025 [facility] Work Phone: Comment on above: 1 Occurrences starti ng 06/06/2024 until 07/06/2025 XR Wrist - right PA and Lateral and Oblique XR WRIST GENERAL 3V PA/LAT/OBL RIGHT Radiology Routine Pain and swelling of right wrist 06/06/2024 1:14 PM EDT [facility] Immunizations Immunization Date Immunization Notes Care Provider [facility] 12-23-2023 COVID-19 vaccine, ag e 12+ yr, season (PFIZER-BIONTCreatorBox) Maribel Fay MD Work Phone: [facility] 08-09-2023 zoster vaccine recombinant Maribel Fay MD Work Phone: [facility] Work Phone: 07-07-2023 COVID-19 vaccine, ag e 12+ yr, season (PFIZER-BIONTECH) Maribel Fay MD Work Phone: [facility] Work Phone: 07-07-2023 influenza (HD-IIV4) vaccine, age 65+ yr, high dose, quadrivalent, PF (FLUZONE HIGH-DOSE) Maribel Fay MD Work Phone: [facility] Work Phone: 07-07-2023 influenza virus vaccine, unspecified formulation Maribel Fay MD Work Phone: [facility] 06-19-2023 Covid (Pfizer) Maribel adams MD Work Phone: [facility] Work Phone: 06-19-2023 Influenza High-Dose Quadrivalent [facility] 08-09-2022 influenza, high-dose , quadrivalent vaccine (FLUZONE HIGH DOSE QUADRIVALENT) Maribel Fay MD Work Phone: [facility] 08-09-2022 influenza virus vaccine, unspecified formulation Maribel Fay MD Work Phone: [facility] 07-22-2021 influenza, high-dose , quadrivalent vaccine (FLUZONE HIGH DOSE QUADRIVALENT) Maribel Fay MD Work Phone: [facility] 11-01-2020 COVID-19 vaccine, ag e 12+ yr (PFIZER-BIONTECH - PURPLE TOP) Maribel Fay MD Work Phone: [facility] 10-12-2020 COVID-19 vaccine, ag e 12+ yr (PFIZER-BIONTECH - PURPLE TOP) Maribel Fay MD Work Phone: [facility] 07-20-2020 Influenza virus vaccine [facility] 07-20-2020 influenza, seasonal, injectable, preservative free Maribel Fay MD Work Phone: [facility] 07-18-2020 influenza, high-dose , quadrivalent vaccine (FLUZONE HIGH DOSE QUADRIVALENT) Maribel Fay MD Work Phone: [facility] 07-16-2019 influenza, high dose seasonal, preservative-free Maribel Fay MD Work Phone: [facility] 08-08-2018 influenza, high dose seasonal, preservative-free Maribel Fay MD Work Phone: [facility] 07-04-2017 influenza, high dose seasonal, preservative-free Maribel Fay MD Work Phone: [facility] 06-15-2016 influenza, high dose seasonal, preservative-free Maribel Fay MD Work Phone: [facility] 10-11-2014 pneumococcal conjuga te vaccine, 13 valent Maribel Fay MD Work Phone: [facility] 07-18-2014 influenza, seasonal, injectable Maribel Fay MD Work Phone: [facility] 07-14-2013 influenza virus vaccine, unspecified formulation Maribel Fay MD Work Phone: [facility] 07-20-2012 influenza virus vaccine, unspecified formulation Maribel Fay MD Work Phone: [facility] 06-06-2008 diphtheria and tetan us toxoids, adsorbed for pediatric use Maribel Fay MD Work Phone: [facility] Work Phone: 07-19-2007 influenza virus vaccine, unspecified formulation Maribel Fay MD Work Phone: [facility] Work Phone: 06-06-2006 pneumococcal polysaccharide vaccine, 23 valhayden Fay MD Work Phone: [facility] Work Phone: Payers Date Payer Category Payer Self-pay [id number] 2022 Medicare HUMANA MEDICARE HUMANA GOLD PLUS [id number] 2022-[facility] [phone] [place] [id number] HMO [id number] 2022 Medicare (Managed Care) [id number] 2022 Private Health Insurance [id number] 2019 Unknown ANTHEM BLUE CROS S AND BLUE SHIELD ANTHEM MEDIBLUE HMO [id number] 2019-[facility] [phone] [address] [id number] 2019 Unknown ANTHEM BLUE CROS S AND BLUE SHIELD ANTHEM MEDICARE ADVANTAGE HMO [id number] 2019-[address]22 [address] [id number] 2016 Unknown ANTHEM [id number] 2000 Medicare MEDICARE PART A B [id number] 1935 Unknown [id number] Medicare ANTH MEDICARE SENIOR [place] [id number] Unknown [id number] Unknown [id number] Social History Date Type Detail Facility Start: 05-05-2022 End: 05-16-2024 Tobacco smoking status NHIS Ex-smoker [facility] Start: 11-23-1952 End: 09-19-1973 History of tobacco use Current smoker [facility] Start: 11-23-1952 End: 09-19-1973 History of tobacco use Cigarette Smoker [facility] Start: 11-11-2021 End: 01-18-2025 Alcohol intake Current drinker of alcohol (finding) [facility] Start: 1935 Sex Assigned At Not on file C [facility] Start: 07-20-2020 End: 08-09-2022 Exposure to SARS-CoV-2 (event) Not sure [facility] Start: 05-05-2022 End: 02-08-2023 Cigarettes smoked current (pack per day) - Reported 1 [facility] Start: 05-05-2022 End: 05-16-2024 Tobacco use and exposure Smokeless tobacco non-user [facility] Start: 02-08-2023 End: 04-11-2023 Tobacco use panel [facility] Adult Depression Screening Assessment 0 [facility] Start: 09-02-2023 End: 09-03-2023 Tobacco smoking status PRIS Unknown if ever smoked [facility] Start: 09-02-2023 Rare [facility] Start: 10-09-2020 None [facility] Start: 09-02-2023 Homeless [facility] Start: 02-25-2017 Non-smoker [facility] Start: 1935 Sex Assigned At Female W [facility] Medical Equipment Procedure Code Equipment Code Equipment Original Text Equipment Identifier Dates [id number], [id number], [id number], [id number], [id number], [id number], [id number], [id number] Start: 10-23-2019 End: 12-04-2024 Comment on above: Check blood sugar th ree times daily One needle once lauren y. Dx: 250.02 Insulin: yes Use Three times lauren y to check blood sugar Test blood sugar(s) 1 times daily. Dx: Other DM Code E11.42 Insulin: Yes Test blood sugar(s) 3 times daily. Dx: Type 2 DM - Controlled E11.9 Insulin: Yes 1 Strip two times a day. Use as instructed Test blood sugar(s) 2 times daily. Dx: Type 2 DM - Controlled E11.9 Insulin: Yes Test once daily DX:2 50.02 Insulin: Yes Pt requests Truedraw lancets. Test blood sugar(s) 1 times daily. Dx: Other DM Code 250.02 Insulin: Yes Goals Date Patient Goal Desired Activity /State Functional Status Date Assessment Result Facility 09-04-2023 Functional status Ambulates [facility] Work Phone: 03-25-2015 Are you deaf, or do you have serious difficulty hearing Yes 03/25/2015 8:55 AM Rachell Nath MA Yes [facility] 03-25-2015 Are you blind, or do you have serious difficulty seeing, even when wearing glasses No 03/25/2015 8:55 AM Rachell Nath MA No [facility] 03-25-2015 Do you have serious difficulty walking or climbing stairs No 03/25/2015 8:55 AM Rachell Nath MA No [facility] 03-25-2015 Do you have difficul ty dressing or bathing No 03/25/2015 8:55 AM Rachell Nath MA No [facility] 03-25-2015 Because of a physica l, mental, or emotional condition, do you have difficulty doing errands alone such as visiting a physician's office or shopping No 03/25/2015 8:55 AM Rachell Nath MA No [facility] Mental Status Date Assessment Result Facility 02-16-2025 Cognitive function Voice/Name [facility] Work Phone: 09-04-2023 Cognitive function Voice/Name [facility] Work Phone: 09-02-2023 Cognitive function Level Of Cons ciousness Awake;Alert;Appropriate [facility] Work Phone: 03-25-2015 Because of a physica l, mental, or emotional condition, do you have serious difficulty concentrating, remembering, or making decisions No 03/25/2015 8:55 AM Rachell Nath MA No [facility] Clinical Notes 10-11-2014 to 02-18-2025 Telephone Encounter - Maribel Fay MD - 02/18/2025 11:58 AM EDTTelephone Encounter - Maribel Fay MD - 02/18/2025 11:58 AM EDT Note Date & Type Note Facility 02-18-2025 Telephone encounter Note Form atting of this note might be different from the original. I am so sorry to hear this. Please let me know if she needs anything. She has appointment with me today, this needs cancelled. [facility] 02-18-2025 Miscellaneous Notes Formattin g of this note might be different from the original. I am so sorry to hear this. Please let me know if she needs anything. She has appointment with me today, this needs cancelled. Patient's Daughter calls and states that patient had a stroke over the weekend. Patient was taken down to [facility]. Patient is currently in A-Fibrillation. Daughter thinks patient will be in hospital for over a week. Daughter states that patient will be put on blood thinners. Cheryl Billy RN documented in this encounter [facility] 02-18-2025 Telephone encounter Note Form atting of this note might be different from the original. Patient's Daughter calls and states that patient had a stroke over the weekend. Patient was taken down to [facility]. Patient is currently in A-Fibrillation. Daughter thinks patient will be in hospital for over a week. Daughter states that patient will be put on blood thinners. Cheryl Billy RN [facility] 02-16-2025 Discharge summary [facility] 02-16-2025 Radiology Diagnostic study note [facility] Imaging Services [address] [place] [address] STROKE CTA Head AND Neck W/Con MR#: [id number] Acct: [id number] Name: CHARLETTE FARMER Rep #: [id number] : 1935 F 89 From: Ronaldo Collins MD PCP: Dr. Maik Fay MD Status: REG ER Study:STROKE CTA Head AND Neck W/Con Date of Exam: 02/16/25 Exam# [id number] Ordering Dr: Dickson Ribeiro MD PROCEDURE: STROKE CTA HEAD AND NECK W/CON 02/16/2025 REASON FOR EXAM: NEURO DEFICIT, ACUTE, STROKE SUSPECTED TECHNIQUE: CTA imaging of the head and neck from the aortic arch to the skull vertex with out contrast and with intravenous contrast. Multiplanar and multisequence images were obtained. CONTRAST: Isovue 370 VOLUME: 100 mL Gauge IV One or more dose reduction techniques were used (e.g., Automated exposure control, adjustment of the mA and/or kV according to patient size, use of iterative reconstruction technique). RADIATION DOSE SUMMARY: CTDlvol: 29.06+ 18.21 mGy DLP: 673.92 mGycm COMPARISON: None. FINDINGS: The common carotid arteries are patent. The aortic arch is patent. Atherosclerosis of the bilateral proximal internal carotid arteries without hemodynamically significant stenosis. Atherosclerosis of the carotid siphons without significant stenosis. The cervical vertebral arteries are patent. 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 The anterior cerebral, anterior communicating, right middle cerebral, posterior cerebral, bonydl-hz-Xydkor, and vertebrobasilar system is patent. Biapical centrilobular and paraseptal emphysema. CT/STROKE CTA Head AND Neck W/Con IMPRESSION: Occluded M1 segment of left MCA. Critical results were communicated to Critical results were communicated to Dr. Ribeiro at 6:15 p.m.. Reading Location: [id number] CC: Dr. Maik Fay MD; Dr. Edward Ribeiro MD ~ Jet Inspector: Signed [facility] 02-16-2025 Radiology Diagnostic study note [facility] Imaging Services [address] [place] [address] STROKE Brain/Head without Cont MR#: [id number] Acct: [id number] Name: CHARLETTE FARMER Rep #: [id number] : 1935 F 89 From: Ronaldo Collins MD PCP: Dr. Maik Fay MD Status: REG ER Study:STROKE Brain/Head without Cont Date of Exam: 02/16/25 Exam# [id number] Ordering Dr: Dickson Ribeiro MD PROCEDURE: STROKE BRAIN/HEAD WITHOUT CONT 02/16/2025 REASON FOR EXAM: NEURO DEFICIT, ACUTE, STROKE SUSPECTED TECHNIQUE: Head CT without intravenous contrast. Coronal and Sagittal reconstruction serieswere provided. One or more dose reduction techniques were used (e.g., Automated exposure control, adjustment of the mA and/or kV according to patient size, use of iterative reconstruction technique. RADIATION DOSE SUMMARY: CTDlvol: 44.99 mGy DLP: 796.11 mGycm COMPARISON: None. FINDINGS: Mild global parenchymal atrophy. Periventricular white matter hypodensity likely representing moderate chronic microvascular ischemia. No evidence of acute hemorrhage or infarction. No extra-axial blood or fluid collections. The paranasal sinuses are clear. The mastoid air cells are well aerated. The calvarial vault and skull base are intact. CT/STROKE Brain/Head without Cont IMPRESSION: No acute intracranial abnormalities. Reading Location: [id number] CC: Dr. Maik Fay MD; Dr. Edward Ribeiro MD ~ Jet Inspector: Signed [facility] 02-16-2025 Discharge summary Note Date/Time February 16, 2025 7:08pm [facility] Medical Records Department [address] [place] [address] Emergency Department Summary 02/16/25 MR#: [id number] Acct: [id number] Name: CHARLETTE FARMER Rep #:[id number] : 1935 89 From: Edward Ribeiro MD PCP: Dr. Maik Fay MD Status :REG ER Location: ED HPI History of Present Illness Chief Complaint: Stroke Alert Detail of Chief Complaint: Last known well 1330. Informant: patient Onset/Context/Timing Onset: Today Context: Sudden Onset Timing: Continuous Quality and Location: Positive for - (Documented HPI narrative) Onset: Last known well 1330 Current Severity: Moderate Maximum Severity: Moderate Worsened by: This may be traumatic Relieved by: Nothing Associated Symptoms Associated Symptoms: Negative for Headache, Nausea, Vomiting or Chest Pain Narrative Narrative: Patient is an 89-year-old woman with history of cervical cancer, hypertension, type 2 diabetes, dyslipidemia who was last known well at 1330. She apparently called her daughter who is the POA after fall. Daughter received a call at 1630. Time the patient fell is unknown. Patient does not know her age or month. Patient is not able to follow since all simple commands. She also has trouble with expressive aphasia. Paramedics stated that she had a drift right upper extremity. When she was met in the ambulance bay by me she had no motor weakness. She is not hypoglycemic since she does have diabetes. Patient denies headache. She denies cardiac or respiratory symptoms. Prior similar symptoms: No Recent Illness/Hospitalization: No PFSH PFS Medical History Obesity Former tobacco use CKD (chronic kidney disease), stage III Vertigo Dyslipidemia Diverticular hemorrhage Cervical cancer HTN (hypertension) DM II (diabetes mellitus, type II), controlled Home Medications ?Medication ?Instructions ?Recorded ?Last Taken ?Type lisinopril 2.5 mg tablet 2.5 mg PO DAILY hypertension 02/24/17 10/09/20 History pramipexole 0.25 mg tablet 0.25 mg PO QHS restless leg s 02/24/17 10/08/20 History acetaminophen 500 mg tablet 500 mg PO BID pain 1 10/09/20 History allopurinol 100 mg tablet 100 mg PO BIDCM gout 1 10/09/20 History aspirin 81 mg chewable tablet 81 mg PO QHS heart healt h 10/10/20 10/08/20 History cyanocobalamin (vitamin B-12) 1,000 mcg PO DAILY suppl ement 10/10/20 10/09/20 History 1,000 mcg capsule meclizine 25 mg tablet 25 mg PO 4X/DAY PRN PRN Dizz iness 09/02/23 Unknown Rx #20 tabs rosuvastatin 20 mg tablet 20 mg PO QHS cholesterol Unknown History gabapentin 400 mg capsule 400 mg PO BID 02/16/25 Unkno wn History gabapentin 600 mg tablet 600 mg PO Q12H 02/16/25 Unkn own History hydrochlorothiazide 12.5 mg capsule 12.5 mg PO DAILY 0 02/16/25 Unknown History insulin lispro 100 unit/mL subcut 02/16/25 Unknown His tory subcutaneous pen (Humalog KwikPen (U-100) Insulin) melatonin 10 mg capsule 10 mg PO QHS 02/16/25 Unknow n History prednisone 20 mg tablet 20 mg PO DAILY 02/16/25 Unkn own History Allergy/AdvReac Type Severity Reaction Status Date / Time No Known Allergies Allergy Verified 09/03/23 01:34 Family History Mother Lung cancer COPD (chronic obstructive pulmonary disease) Father Alcoholism CAD (coronary artery disease) Heart disease Hypertension Myocardial infarction age 43 secondary to [place]. Surgical History History of carpal tunnel surgery of right wrist History of tonsillectomy and adenoidectomy Hx of dilation and curettage Hx of cholecystectomy History of hysterectomy S/P appendectomy Social History household members: none Smoking Status: Former smoker how long ago did patient quit smoking: Smoked 1 pack/day x 20 years, quit 1973. alcohol intake: current alcohol intake frequency: holidays/special occasions only substance use type: does not use ROS ROS ED Review of Systems ROS Unobtainable: due to mental status EXAM Physical Exam Const Vital Signs: 02/16/25 17:17 02/16/25 17:17 02/16/25 17:17 Temperature 98.6 F 98.6 F Temperature Source Oral Oral Pulse Rate 75 Respiratory Rate 18 Blood Pressure 129/71 H Blood Pressure Mean 90 Pulse Ox 97 Oxygen Delivery Method Room Air Room Air 02/16/25 17:47 02/16/25 17:47 02/16/25 18:17 Temperature 98.6 F 98.6 F 98.9 F Temperature Source Oral Oral Oral Pulse Rate 76 76 78 Respiratory Rate 14 19 H 14 Blood Pressure 120/60 120/60 126/78 H Blood Pressure Mean 80 80 94 Pulse Ox 97 98 98 Oxygen Delivery Method Room Air Room Air Room Air 02/16/25 18:20 02/16/25 18:30 02/16/25 18:30 Temperature 98.9 F 98.6 F 98.2 F Temperature Source Oral Oral Oral Pulse Rate 89 71 74 Respiratory Rate 14 18 18 Blood Pressure 127/65 H 113/81 H 113/61 Blood Pressure Mean 85 91 78 Pulse Ox 98 98 98 Oxygen Delivery Method Room Air Room Air Room Air 02/16/25 19:00 Temperature 97.8 F Temperature Source Core Pulse Rate 116 H Respiratory Rate 20 H Blood Pressure 113/61 Blood Pressure Mean 78 Pulse Ox 98 Oxygen Delivery Method Room Air Positive well nourished and well developed Constitutional Narrative: Patient has a postauricular hematoma. Is no palpable depression to suggest the present skull fracture. General Appearance ED: well developed and NAD HEENT Reports moist mucous membranes trauma Nose: other Other Details: There is no evidence of facial trauma or trauma to the nose. There is no septal deviation or hematoma. Eyes PERRL and EOMs intact bilaterally Eyes Narrative: There is no nystagmus with central gaze. General Eye ED: Negative for pale conjunctiva or scleral icterus Neck no lymphadenopathy, supple and no JVD Chest Wall inspection of chest normal and palpation of chest normal Resp normal respiratory effort and clear to auscultation bilaterally Cardio no murmurs Rate: regular rate Rhythm: abnormal rhythm irregularly irregular GI normal to inspection, nondistended, normoactive bowel sounds, soft to palpation,non-tender, non-distended and no masses Back/Spine no CVA tenderness Extremity normal to inspection General Extremety ED: Negative for deformity or edema General Extremity: Negative for deformity or edema Neuro No oriented x3, CN's II-XII intact bilaterally and no sensory deficits noted [place] Coma Scale: document GCS findings Spontaneous Obeys Commands Confused 14 Sensorium / Orientation: Negative for alert Speech: speech normal Motor Exam: strength 5/5 throughout Psych mental status grossly normal Skin Skin Narrative: Scalp hematoma as previously described MDM MDM MDM Narrative Medical decision making narrative: Patient was made a stroke alert. Concern that she may have concussion also needto rule out traumatic hematoma i.e. epidural, subdural, traumatic subarachnoid hemorrhage or intraparenchymal contusion. Confirmed with daughter who is the POA that she is not on an anticoagulant or antithrombotic. She was last known well at 1330. Fall occurred at 1630. Spoke with the neurologist at [facility] because patient was approaching the 4-1/2-hourwindow. In light of her age fact that she fell there is a hematoma this increases the chance of hemorrhage was considered the risk-benefit was too greatto administer TNK. She did not receive TNK. Informed the daughter since patient does not have capacity. The neurologist at [facility] was Dr. Greer. I did look at the CT minus and there was no evidence of subdural, epidural, traumatic subarachnoid hemorrhage or intraparenchymal contusion. Awaiting formal read by radiologist. History & Record Review Discussion w/independent historian: Family Lab Data Lab results narrative: CBC reveals mild anemia with normal indices. Labs: Laboratory Results - last 24 hr 02/16/25 17:20 WBC 10.1 RBC 3.87 L Hgb 11.6 L Hct 34.7 L MCV 89.7 MCH 30.0 MCHC 33.4 RDW Std Deviation 49.2 H RDW Coeff of Luciano 15.0 H Plt Count 298 MPV 9.9 Immature Gran % (Auto) 0.900 Neut % (Auto) 85.7 H Lymph % (Auto) 7.1 L [place] % (Auto) 6.1 Eos % (Auto) 0.1 Baso % (Auto) 0.1 Absolute Neuts (auto) 8.6 H Absolute Lymphs (auto) 0.71 L Nucleated RBC % 0 PT 13.1 INR 1.0 APTT 24.3 Sodium 136 Potassium 4.1 Chloride 100 Carbon Dioxide 22.3 Anion Gap 14 BUN 28 H Creatinine 1.19 Estim Creat Clear Calc 28.76 L Est GFR (MDRD) Non-Af 44 L BUN/Creatinine Ratio 23.3 H Glucose 269 H Calcium 10.0 Troponin T High Sens 25 H Radiography Diagnostic Testing: Clinical Impression(s) from Imaging Studies Brain CT 02/16/25 17:17 IMPRESSION: No acute intracranial abnormalities. Reading Location: [id number] Head/Neck CTA 02/16/25 17:17 IMPRESSION: Occluded M1 segment of left MCA. Critical results were communicated to Critical results were communicated to Dr. Ribeiro at 6:15 p.m.. Reading Location: [place] [address] Rhythm Strip Rhythm Strip: A-fib Rate: 88 Ectopy: None EKG Initial EKG: Attestation: I personally reviewed and interpreted this EKG as follows: Interpretation: Atrial Fibrillation (Rate is 85. QRS duration is 72 ms QTdurations are 94 ms. [place] is normal. There is decreased anterior forces noted. Voltage is low. There is no obvious ischemic changes. Confirmed with daughterthere is no history of atrial fibrillation.) Management Discussion w/another healthcare provider: Hospitalist, Director Human Services, Radiologist and Other (Transfer line nurse [facility] at [facility] and neurology resident at [facility]) Treatment and Re-Evaluation Narrative: I received a call from the radiologist to inform me that there is a M1 occlusionon the left. Ely was asked to contact [facility] for transfer for clot retrieval. Critical Care Time Critical Care Time: Yes Critical care time (excluding procedures): 30-74 minutes (32), Including time spent: (History, physical, documentation, independent review of C-minus film,), Discussing w/Patient &/or Family/Mime Artist (Discussed with daughters POA regarding [place] K. Inform daughter there is an acute clot and she is a candidate for retrieval.), Discussing w/Consultants ([facility] neurologist in transfer line for clot removal), Arranging Admission or Transfer and Performing Direct Patient Care at Bedside Discharge Plan Triage Chief Complaint: Stroke Alert ED Provider: Edward Ribeiro Dx/Rx/DC Orders Clinical Impression: Acute ischemic left MCA stroke, Type 2 diabetes mellitus, Dyslipidemia, Essential hypertension, Expressive aphasia, CHI (closed head injury), New onset a-fib Prescriptions: No Action pramipexole 0.25 MG tablet 0.25 mg PO QHS lisinopril 2.5 MG tablet 2.5 mg PO DAILY Patient Comments: allopurinol 100 MG tablet 100 mg PO BIDCM acetaminophen 500 MG tablet 500 mg PO BID aspirin 81 MG tablet,chewable 81 mg PO QHS cyanocobalamin (vitamin B-12) 1,000 MCG capsule 1,000 mcg PO DAILY meclizine 25 mg tablet 25 mg PO 4X/DAY PRN PRN (Reason: Dizziness) Qty: 20 0RF rosuvastatin 20 mg tablet 20 mg PO QHS gabapentin 600 mg tablet 600 mg PO Q12H prednisone 20 mg tablet 20 mg PO DAILY insulin lispro [Humalog KwikPen Insulin] 100 unit/mL insulin pen subcut melatonin 10 mg capsule 10 mg PO QHS hydrochlorothiazide 12.5 mg capsule 12.5 mg PO DAILY gabapentin 400 mg capsule 400 mg PO BID Primary Care Provider: Maik Fay Referrals: Maik Fay MD [Primary Care Provider] - Print Language: Faroese Disposition Disposition: Acute Care Hospital Discharge Location: [facility] NIHSS NIHSS 1a. Level of Consciousness: 1 - Not alert; Arousable by minor stimuli to obey, answer & respond 1b. LOC Questions: 2 - Answers NEITHER question correctly 1c. LOC Commands: 1 - Performs ONE task correctly 2. Best Gaze: 0 - Normal 3. Visual: 0 - No visual loss 4. Facial Palsy: 0 - Normal symmetrical movements 5a. Left Arm: 0 - No drift; arm holds 90 (or 45) degrees for full 10 seconds 5b. Right Arm: 0 - No drift; arm holds 90 (or 45) degrees for full 10 seconds 6a. Left Le - No drift; leg holds 30-degree position for full 5 seconds 6b. Right Le - No drift; leg holds 30-degree position for full 5 seconds 8. Sensory: 0 - Normal; no sensory loss 9. Best Language: 1 - Sqnq-li-pknuockb aphasia; 10. Dysarthria: 0 - Normal 11. Extinction and Inattention: 0 - No abnormality Total: 5 Stroke Questions Stroke Team Activated: Yes Reviewed Inclusion/Exclusion criteria: Yes No contraindications from thrombolytic administration: Yes Informed the patient and/or family of all associated risks, benefits, & alternatives to IV Thrombolytic Therapy. Patient and/or family voluntarily consent to the administration of IV Thrombolytic Therapy: Refused Patient/ legalrepresentative refused thrombolytic Therapy details: Daughter POLino. After explaining risk benefits she declined What to do if you have Problems For any increased pain, shortness of breath, bleeding, nausea or vomiting, chestpain, or any unexpected problems, contact your Primary Care Provider. Call [employer] ([phone]) or report to the closest Emergency Room. Call 911 if necessary. 02/16/25 [id number] <Electronically signed by Edward Ribeiro MD> Cosigner Signature (if applicable): CC: Dr. Maik Fay MD ~ Signed [facility] Work Phone: 1(882) 760-306205-30-2025 NoteHNO ID: [id number] Author: ?, ?, ? Service: ? Author Type: ? Type: Progress Notes Filed: 02/15/2025 09:28 Note Text: POPULATION HEALTH NAVIGATION OUTREACH Action/FYI Patient outreach for Hcc gaps; Awv, JUAREZ, KED. Lvm and sent mychart to close gaps. Updated appointment notes. Reason for Outreach Care Gap/HCC or Scheduling Wellness Visits Care Gaps due: Medicare Annual Wellness Visit Diabetic Eye Exam KED Patient Contacted: Unable or unnecessary to reach patient: Left message MyChart message sent HCC related Updated appointment notes Navigation Signature: Asia William February 15, 2025 9:23 [facility]05-30-2025 History of Present illness Narrative* Asia Easley - 02/15/2025 9:23 AM EDT POPULATION HEALTH NAVIGATION OUTREACH Action/FYI Patient outreach for Hcc gaps; Awv, JUAREZ, KED. Lvm and sent mychart to close gaps. Updated appointment notes. Reason for Outreach Care Gap/HCC or Scheduling Wellness Visits Care Gaps due: Medicare Annual Wellness Visit Diabetic Eye Exam KED Patient Contacted: Unable or unnecessary to reach patient: Left message MyChart message sent HCC related Updated appointment notes Navigation Signature: Asia William February 15, 2025 9:23 AM [facility] NotePatient Outreach (NETNAV) CHARLETTE FARMER ([id number]) 1935 F Date Time Provider Department 02/15/25 MARIBEL FAY During your visit today, we recorded the following information about you: Oliver StewartAsia 02/15/2025 9:28 AM Signed POPULATION HEALTH NAVIGATION OUTREACH Action/FYI Patient outreach for Hcc gaps; Awv, JUAREZ, JUNE. Lvm and sent mychart to close gaps. Updated appointment notes. Reason for Outreach Care Gap/HCC or Scheduling Wellness Visits Care Gaps due: Medicare Annual Wellness Visit Diabetic Eye Exam KED Patient Contacted: Unable or unnecessary to reach patient: Left message MyChart message sent HCC related Updated appointment notes Navigation Signature: Asia Boyd Stewart February 15, 2025 9:23 AM Allergies As of Date: 02/15/2025 Noted Allergy Reaction FLEXERIL (CYCLOBENZAPRINE) 02/12/2025 1 - Mental Status Change LIPITOR (ATORVASTATIN) 07/19/2007 5 - Intolerance Comments: myalgia SIMVASTATIN 07/19/2007 5 - Intolerance Comments: myalgia Date Reviewed: 02/12/2025 Reviewed by: Maribel Fay MD - Fully Assessed Reason for Visit: Population Health Navigation Outreach [3910] Cmt: Candice Lorenzo Prescriptions as of 02/15/2025 - predniSONE (DELTASONE) 20 mg tablet Take 1 tablet by mouth once daily for 7 days. - insulin lispro (HUMALOG U-100 INSULIN) 100 unit/mL injection Inject 8 Units subcutaneously three times a day before meals. - aspirin 81 mg chewable tablet Take 81 mg by mouth once daily. - lancets (TRUEPLUS LANCETS) 33 gauge Use with blood glucose test two times a day. Insulin Dep? Yes - pramipexole (MIRAPEX) 0.25 mg tablet Take 1 tablet by mouth daily at bedtime. - lisinopril 2.5 mg tablet Take 1 tablet by mouth once daily. - Insulin [place], Disposable, (PEN NEEDLE) 29 gauge x 1/2 One needle three times daily. Dx: 250.02 Insulin: yes - blood sugar diagnostic (TRUE METRIX GLUCOSE TEST STRIP) test strip Test 3 times daily DX:250.02 Insulin: Yes - gabapentin (NEURONTIN) 600 mg tablet Take 1 tablet by mouth two times a day for 90 days. - insulin glargine (LANTUS SOLOSTAR U-100 INSULIN) 100 unit/mL (3 mL) Inject 18 units subcutaneously at bedtime - cyanocobalamin (VITAMIN B-12) 1,000 mcg tab Take one tablet every other day Dx: pernicious anemia - allopurinol (ZYLOPRIM) 100 mg tablet Take 1 tablet by mouth two times a day. - Acetaminophen 500 mg cap Take 2 capsules by mouth two times a day as needed for pain. Reports will utilize 1 500mg tab 1-2 times in between the 1000 mg doses - meclizine (ANTIVERT) 25 mg tab Take 25 mg by mouth as needed. - melatonin 3 mg Take by mouth daily at bedtime. - COMPOUNDED PRESCRIPTION Cock up wrist splint, right Medium. To be worn nightly to prevent carpal tunnel symptoms. Dx: carpal tunnel right - Blood-Glucose Meter, Drum-type (ACCU-CHEK COMPACT PLUS CARE) Misc Kit 1 Each. Accu-Check Compact Plus Meter Diagnosis: Diabetes Mellitus Problem List As Of Date 02/15/2025 Noted Resolved Other specified disorders of rotator cuff syndr*02/16/2006 10/18/2016 Malignant neoplasm of corpus uteri, except isth* 11/24/2015 HYPERLIPIDEMIA NEC/NOS [E78.5] 10/14/2015 Lumbago [M54.50] 06/15/2016 DIABETES MELLITUS TYPE II UNCONTR UNCOMPL [IMO0* 07/18/2014 HYPERTENSION NOS [I10] 10/14/2015 Special screening for malignant neoplasms, colo*11/12/2008 11/24/2015 Benign neoplasm of colon [D12.6] 11/12/2008 11/24/2015 Diverticulosis of colon [K57.30] 11/12/2008 Internal hemorrhoids without mention of complic*11/12/2008 10/14/2015 Tubular adenoma of rectum [D12.8] 02/25/2011 11/24/2015 Pernicious anemia [D51.0] 08/25/2012 Medicare annual wellness visit, initial [Z00.00]09/28/2013 11/24/2015 Stage 3b chronic kidney disease (HCC) [N18.32] 04/12/2014 PAD (peripheral artery disease) (HCC) [I73.9] 05/02/2014 Medicare annual wellness visit, subsequent [Z00*10/11/2014 11/24/2015 Diabetes mellitus with neuropathy (HCC) [E11.40]10/11/2014 11/24/2015 Essential hypertension [I10] 10/14/2015 Mixed hyperlipidemia [E78.2] 10/14/2015 DM type 2 with diabetic peripheral neuropathy (*11/12/2015 Trigger middle finger of right hand [M65.331] 11/20/2015 Trigger finger, left ring finger [M65.342] 08/25/2017 Restless leg syndrome [G25.81] Type 2 diabetes mellitus with diabetic chronic *08/15/2023 Type 2 diabetes mellitus with diabetic peripher*11/05/2022 Carpal tunnel syndrome, right [G56.01] 11/09/2022 Stage 4 chronic kidney disease (HCC) [N18.4] 09/08/2023 Personal history of malignant neoplasm of cervi*09/08/2023 Diagnosed: 1996 Arthritis of left hip [M16.12] 11/08/2023 History of colonic polyps [Z86.0100] 07/12/2024 Positive fecal occult blood test [R19.5] 07/12/2024 History of lumbar fusion [Z98.1] 12/11/2024 Gout [M10.9] 12/11/2024 Former smoker [Z87.891] 12/11/2024 BMI 30.0- (more content not included)...[facility] [place]05-27-2025 Telephone encounter Note* Telephone Encounter - Duyen Bey LPN - 02/12/2025 10:41 AM EDT Reviewed provider's message with patient and she voiced understanding. Duyen Bey LPN [facility]05-27-2025 Miscellaneous Notes* Telephone Encounter - Duyen Bey LPN - 02/12/2025 10:41 AM EDT Reviewed provider's message with patient and she voiced understanding. Duyen Bey LPN * Telephone Encounter - Maribel Fay MD - 02/12/2025 10:28 AM EDT Rx sent for 20 mg prednisone daily x 7 days. Let me know in 1-2 days if pain not improving with this. * Telephone Encounter - Ankita Lucero - 02/12/2025 10:10 AM EDT PSS unable to find sooner appointment with Dr. Burns. Patient declined to schedule at other sites with sooner availability. Patient requested to remain on the wait list for Dr. Burns. * Telephone Encounter - Cheryl Billy RN - 02/12/2025 10:02 AM EDT Patient calls and notified of below. Patient voices understanding. Patient transferred to [facility] see if she can get seen sooner. Appointment with PCP cancelled for today. Patient would like to try the prednisone if it helps with her pain. Patient aware that medication can cause cause elevated blood sugars and blood pressure. Please send prescription to [facility]. 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 Any appointments available before 03/04? Without a new fall or injury, I do not think she needs to come in here today. I could give her a course of prednisone to help with pain, though it will increase her sugar levels and possibly her BP. Would she like to try this? * Telephone Encounter - Nataliia Burnham RN - 02/12/2025 8:50 AM EDT Patient was prescribed flexeril on 02/08/25, up to 2 times daily for complaints of increased hip andjoint pain and difficulty getting around. Unable to see Ortho until 03/04. Pt states she tried taking the flexeril as advised, and the medication made her confused a lot, made her felt goofy and she had trouble staying awake. Reports last dose taken was this past Tuesday night. Feels her mind hasimproved since stopping the medication but still feels tired and is in a lot of pain, mostly lefthip area and also her wrists and legs. Pt states she lives alone. Has neighbors that check on her frequently throughout the day and can assist her at times. Also has a daughter to assist at times. States she has transportation available by someone today. Appt made for pt today with Dr. Fay, for further evaluation and discussion. Please call patient if appt not needed, and with any advise, if appropriate to offer by phone. Nataliia Burnham RN documented [facility] Telephone encounter Note * Telephone Encounter - Maribel Fay MD - 02/12/2025 10:28 AM EDT Rx sent for 20 mg prednisone daily x 7 days. Let me know in 1-2 days if pain not improving with this. [facility]05-27-2025 Telephone encounter Note* Telephone Encounter - Ankita Lucero - 02/12/2025 10:10 AM EDT PSS unable to find sooner appointment with Dr. Burns. Patient declined to schedule at other sites with sooner availability. Patient requested to remain on the wait list for Dr. Burns. [facility]05-27-2025 Telephone encounter Note* Telephone Encounter - Cheryl Billy RN - 02/12/2025 10:02 AM EDT Patient calls and notified of below. Patient voices understanding. Patient transferred to [facility] see if she can get seen sooner. Appointment with PCP cancelled for today. Patient would like to try the prednisone if it helps with her pain. Patient aware that medication can cause cause elevated blood sugars and blood pressure. Please send prescription to [facility]. 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 Any appointments available before 03/04? Without a new fall or injury, I do not think she needs to come in here today. I could give her a course of prednisone to help with pain, though it will increase her sugar levels and possibly her BP. Would she like to try this? [facility]05-27-2025 Telephone encounter Note* Telephone Encounter - Nataliia Burnham RN - 02/12/2025 8:50 AM EDT Patient was prescribed flexeril on 02/08/25, up to 2 times daily for complaints of increased hip andjoint pain and difficulty getting around. Unable to see Ortho until 03/04. Pt states she tried taking the flexeril as advised, and the medication made her confused a lot, made her felt goofy and she had trouble staying awake. Reports last dose taken was this past Tuesday night. Feels her mind hasimproved since stopping the medication but still feels tired and is in a lot of pain, mostly lefthip area and also her wrists and legs. Pt states she lives alone. Has neighbors that check on her frequently throughout the day and can assist her at times. Also has a daughter to assist at times. States she has transportation available by someone today. Appt made for pt today with Dr. Fay, for further evaluation and discussion. Please call patient if appt not needed, and with any advise, if appropriate to offer by phone. Nataliia Burnham, RN [facility]05-20-2025 Telephone encounter Note* Telephone Encounter - Cristopher Corado - 02/05/2025 2:19 PM EDT Patient calling in to get in touch with Jhoan Hitesh. She states she has had a lot of trouble walking since her last therapy appt on Tuesday, she would like some guidance on what to do. Please review and advise. Cristopher Corado February 05, 2025 2:20 PM [facility]05-20-2025 Miscellaneous Notes* Telephone Encounter - Cristopher Corado - 02/05/2025 2:19 PM EDT Patient calling in to get in touch with Jhoan Proctor. She states she has had a lot of trouble walking since her last therapy appt on Tuesday, she would like some guidance on what to do. Please review and advise. Cristopher Corado February 05, 2025 2:20 PM documented in this encounterA[facility]05-16-2025 NoteHNO ID: [id number] Author: JHOAN PROCTOR, PT Service: ? Author Type: Physical Therapist Type: Progress Notes Filed: 02/01/2025 13:44 Note Text: Episode Visit Count: 2 Therapist That Will Accept/Oversee The Plan Of Care: Jhoan Proctor Start of Care Date: 01/24/25 Onset Date: 01/03/25 Plan of Care Certification Date: 01/24/25 Next Certification Due Date: 03/07/25 REHABILITATION AND SPORTS THERAPY PHYSICAL THERAPY TREATMENT NOTE ASSESSMENT: Charlette Silverman Marleny tolerated the session with decreased symptoms. She demonstrated improvements in neck and hip pain. The patient will continue to benefit from ongoing skilled physical therapy to progress toward set goals. PLAN FOR NEXT VISIT: SUBJECTIVE: Patient comes in using cane vs her walker last visit. States she feels safe and sturdy. A little less pain this week Pain: Pain Pain Level: 3 Pain Location: Hip - Left, Neck Description: Aching Frequency: Intermittent OBJECTIVE MEASURES WITH LEVEL OF FUNCTION: TREATMENT: Therapeutic Exercise: 1: BKFO 3x10/side 2: Heel slides 3x10 on L 3: Adduction pillow squeezes 3x10 4: Abduction iso's seated 3x10 5: SciFit seat 10, no resistance x5 min (1:1 entire time, discussed HEP and current symptoms. Also discussed patient using cane vs walker) Skilled Intervention: Patient was educated in proper exercise technique and purpose for exercises. Skilled judgment was used in selection of appropriate interventions. Correct performance of therapeutic exercises was facilitated with verbal and tactile cuing. Manual Therapy: 1: STM to B SCM with push to tolerance 2: Upper trap stripping 3: Manual cervical traction x5 min Skilled Intervention: Manual skills to improve joint mobility, ROM, and decrease pain. Utilized anatomy knowledge of the clinician, and assessment of patient's response to intervention. Billing Therapeutic Exercise Treatment Minutes: 25 Manual TherapyTreatment Minutes: 15 Skilled Treatment Time Minutes (timed and untimed codes): 40 Total Session Time (minutes): 40 Session Start Time : 1300 Session Stop Time : 1340 Jhoan Proctor, [facility]05-16-2025 History of Present illness Narrative* Jhoan Proctor, PT - 02/01/2025 1:43 PM EDT Episode Visit Count: 2 Therapist That Will Accept/Oversee The Plan Of Care: Jhoan Proctor Start of Care Date: 01/24/25 Onset Date: 01/03/25 Plan of Care Certification Date: 01/24/25 Next Certification Due Date: 03/07/25 REHABILITATION AND SPORTS THERAPY PHYSICAL THERAPY TREATMENT NOTE ASSESSMENT: Charlette Herrera Farmer tolerated the session with decreased symptoms. She demonstrated improvements in neck and hip pain. The patient will continue to benefit from ongoing skilled physical therapy to progress toward set goals. PLAN FOR NEXT VISIT: SUBJECTIVE: Patient comes in using cane vs her walker last visit. States she feels safe and sturdy.A little less pain this week Pain: Pain Pain Level: 3 Pain Location: Hip - Left, Neck Description: Aching Frequency: Intermittent OBJECTIVE MEASURES WITH LEVEL OF FUNCTION: TREATMENT: Therapeutic Exercise: 1: BKFO 3x10/side 2: Heel slides 3x10 on L 3: Adduction pillow squeezes 3x10 4: Abduction iso's seated 3x10 5: SciFit seat 10, no resistance x5 min (1:1 entire time, discussed HEP and current symptoms. Also discussed patient using cane vs walker) Skilled Intervention: Patient was educated in proper exercise technique and purpose for exercises. Skilled judgment was used in selection of appropriate interventions. Correct performance of therapeutic exercises was facilitated with verbal and tactile cuing. Manual Therapy: 1: STM to B SCM with push to tolerance 2: Upper trap stripping 3: Manual cervical traction x5 min Skilled Intervention: Manual skills to improve joint mobility, ROM, and decrease pain. Utilized anatomy knowledge of the clinician, and assessment of patient's response to intervention. Billing Therapeutic Exercise Treatment Minutes: 25 Manual TherapyTreatment Minutes: 15 Skilled Treatment Time Minutes (timed and untimed codes): 40 Total Session Time (minutes): 40 Session Start Time : 1300 Session Stop Time : 1340 Jhoan Proctor PT documented in this encounterA[facility]05-[facility]-2025 NoteHNO ID: [id number] Author: JHOAN PROCTOR PT Service: ? Author Type: Physical Therapist Type: Progress Notes Filed: 01/24/2025 16:51 Note Text: Episode Visit Count: 1 Therapist That Will Accept/Oversee The Plan Of Care: Jhoan Proctor Start of Care Date: 01/24/25 Onset Date: 01/03/25 Plan of Care Certification Date: 01/24/25 Next Certification Due Date: 03/07/25 Patient Identified by Name and Date of : Yes REHABILITATION AND SPORTS THERAPY PHYSICAL THERAPY EVALUATION PLAN OF CARE: Assessment: Charlette Farmer presents with chief complaint of L hip and neck pain that interferes with walking, standing, bending, sitting . The patient presents with impairments in ADL's, joint mobility, overall function, range of motion, strength, and symptom management. PROMIS? (Patient-Reported Outcomes Measurement Information System) scores were reviewed and identified as a rehabilitation concern. Prognosis for therapy is Fair due to: clinical presentation, multiple co- morbidities, chronic nature of impairments, advanced age, limited tolerance to activity . The patient will benefit from skilled therapy services to meet the goals established for this plan of care as noted below. Goals for Episode of Care: established 01/24/25 [place] in home exercise program. Patient will decrease pain rating by 2 points to meet minimal clinical important difference for numeric pain rating scale. Patient will increase active ROM of L hip flexion to moderate limitation to allow pt to to improve performance of ADLs and to improve gait mechanics / gait pattern . Patient will demonstrate increase in LLE strength to 4/5 during manual muscle testing in order to improve function for basic self-care tasks, home management tasks, and prior functional tasks. Perform walking, turning, standing, sitting, and rising from chair with decreased report of symptoms/pain in 4-6 weeks. Time Frame for Goals and Treatment : 02/24/25 Planned Interventions, Frequency, and Duration: Current Frequency: 1x/week Duration: 4 weeks Total Number of Visits Planned: 4 Planned Treatment Interventions: Therapeutic exercise (63347), Neuromuscular re-education (57498), Manual therapy (83051), Therapeutic activities (86991), Self-prison management (33616), Patient/Family/Caregiver Education, Body Mechanics Training PLAN FOR NEXT VISIT: Continue movements and strength progression per tolerance. Manual for neck may be indicated Patient demonstrates good understanding of plan of care and treatment. The above goals and plan of care were discussed and agreed upon by patient/family. SUBJECTIVE: Patient late, sessioned shortened due to limited time. L hip pain for a few weeks now since a long car ride. Sat for 5-[address] and started hurting soon after. Pain is in the groin area. Difficult to stand, walk. lift her L leg. Neck pain with turning mostly. Limited motion turning, pain is in lateral neck behind ears Functional Limitations: walking, standing, bending, sitting Prior Level of Function: Independent without limitations Intake Information: Prescription present Pain: Pain Pain Level: 4 Pain Location: Hip - Left, Neck Description: Tightness, Aching, Sharp, Sore Frequency: Intermittent Post Treatment Pain Post Treatment Pain Level: No Change PROMIS Scales 01/24/2025 Higher is Better Phys Func - T Score 31 (moderate dysfunction) Phys Func - Percentile 3 Proxy-reported T-scores: mean of general population = 50. 5 points is clinically meaningfully difference Percentiles provide an indication of how the patient's score ranks in relation to the general population. Higher percentile rankings indicate better function/quality of life. 50th percentile is the average of the general population and indicates half of respondents had a worse score. OBJECTIVE MEASURES WITH LEVEL OF FUNCTION: LE AROM R LE AROM: WFL L LE AROM: major limitation L hip flexion LE Strength R LE Strength: 4/5 grossly L LE Strength: 3+/5 grossly Special Tests - Hip and Spine Hip and Spine Special Tests: FADDIR Test, Scour Test FADDIR Test: Left Positive Scour Test: Left Positive Education: Education Learning/educational needs: Home exercise program, Plan of Care, Posture, Body Mechanics TREATMENT: PT Treatment Interventions: Therapeutic Exercise Evaluation Therapeutic Exercise: 1: *BKFO 3x10/side 2: *Heel slides 3x10 on L 3: *Adduction pillow squeezes 3x10 4: *Abduction iso's seated 3x10 5: *Cervical rotation 3x10/side (cued for tolerable ROM) 6: *Upper trap stretch 3x30 sec/side Skilled Intervention: Patient was educated in proper exercise technique and purpose for exercises. Skilled judgment was used in selection of appropriate interventions. Provided written instruction for home exercise program to facilitate proper performance and compliance. Correct performance of therapeutic exercise (more content not included)... [facility] [place]05-08-2025 History of Present illness Narrative* Jhoan Proctor, PT - 01/24/2025 4:47 PM EDT Images from the original note were not included. Episode Visit Count: 1 Therapist That Will Accept/Oversee The Plan Of Care: Jhoan Proctor Start of Care Date: 01/24/25 Onset Date: 01/03/25 Plan of Care Certification Date: 01/24/25 Next Certification Due Date: 03/07/25 Patient Identified by Name and Date of : Yes REHABILITATION AND SPORTS THERAPY PHYSICAL THERAPY EVALUATION PLAN OF CARE: Assessment: Charlette Farmer presents with chief complaint of L hip and neck pain that interferes with walking, standing, bending, sitting . The patient presents with impairments in ADL's, joint mobility, overall function, range of motion, strength, and symptom management. PROMIS (Patient-ReportedOutcomes Measurement Information System) scores were reviewed and identified as a rehabilitation concern. Prognosis for therapy is Fair due to: clinical presentation, multiple co- morbidities, chronic nature of impairments, advanced age, limited tolerance to activity . The patient will benefit fromskilled therapy services to meet the goals established for this plan of care as noted below. Goals for Episode of Care: established 01/24/25 [place] in home exercise program. Patient will decrease pain rating by 2 points to meet minimal clinical important difference for numeric pain rating scale. Patient will increase active ROM of L hip flexion to moderate limitation to allow pt to to improve performance of ADLs and to improve gait mechanics / gait pattern . Patient will demonstrate increase in LLE strength to 4/5 during manual muscle testing in order to improve function for basic self-care tasks, home management tasks, and prior functional tasks. Perform walking, turning, standing, sitting, and rising from chair with decreased report of symptoms/pain in 4-6 weeks. Time Frame for Goals and Treatment : 02/24/25 Planned Interventions, Frequency, and Duration: Current Frequency: 1x/week Duration: 4 weeks Total Number of Visits Planned: 4 Planned Treatment Interventions: Therapeutic exercise (68997), Neuromuscular re- education (94658), Manual therapy (73442), Therapeutic activities (71312), Self- prison management (54021), Patient/Family/Caregiver Education, Body Mechanics Training PLAN FOR NEXT VISIT: Continue movements and strength progression per tolerance. Manual for neck maybe indicated Patient demonstrates good understanding of plan of care and treatment. The above goals and plan of care were discussed and agreed upon by patient/family. SUBJECTIVE: Patient late, sessioned shortened due to limited time. L hip pain for a few weeks now since a long car ride. Sat for 5-[address] and started hurting soon after. Pain is in the groin area. Difficult to stand, walk. lift her L leg. Neck pain with turning mostly. Limited motion turning, pain is in lateral neck behind ears Functional Limitations: walking, standing, bending, sitting Prior Level of Function: Independent without limitations Intake Information: Prescription present Pain: Pain Pain Level: 4 Pain Location: Hip - Left, Neck Description: Tightness, Aching, Sharp, Sore Frequency: Intermittent Post Treatment Pain Post Treatment Pain Level: No Change PROMIS Scales 01/24/2025 Higher is Better Phys Func - T Score 31 (moderate dysfunction) Phys Func - Percentile 3 Proxy-reported T-scores: mean of general population = 50. 5 points is clinically meaningfully difference Percentiles provide an indication of how the patient's score ranks in relation to the general population. Higher percentile rankings indicate better function/quality of life. 50th percentile is the average of the general population and indicates half of respondents had a worse score. OBJECTIVE MEASURES WITH LEVEL OF FUNCTION: LE AROM R LE AROM: WFL L LE AROM: major limitation L hip flexion LE Strength R LE Strength: 4/5 grossly L LE Strength: 3+/5 grossly Special Tests - Hip and Spine Hip and Spine Special Tests: FADDIR Test, Scour Test FADDIR Test: Left Positive Scour Test: Left Positive Education: Education Learning/educational needs: Home exercise program, Plan of Care, Posture, Body Mechanics TREATMENT: PT Treatment Interventions: Therapeutic Exercise Evaluation Therapeutic Exercise: 1: *BKFO 3x10/side 2: *Heel slides 3x10 on L 3: *Adduction pillow squeezes 3x10 4: *Abduction iso's seated 3x10 5: *Cervical rotation 3x10/side (cued for tolerable ROM) 6: *Upper trap stretch 3x30 sec/side Skilled Intervention: Patient was educated in proper exercise technique and purpose for exercises. Skilled judgment was used in selection of appropriate interventions. Provided written instruction for home exercise program to facilitate proper performance and compliance. Correct performance of therapeutic exercises was facilitated with verbal, visual, and tactile cuing. Billing * Evaluation Low Complexity: 1 Unit Therapeutic Exercise Treatment Minutes: 10 Skilled Treatment Time Minutes (timed and untimed codes): 22 Total Session Time (minutes): 22 Session Start Time : 1018 Session Stop Time : 1040 Jhoan Proctor PT * Jhoan Proctor PT - 01/24/2025 10:36 AM EDT Program_ID:[id number] Access Code: [email or web address] URL: [email or web address] Date: 01-24-2025 Prepared By: Jhoan Proctor Program Notes Exercises - Bent Knee Fallouts - 1 x daily - 7 x weekly - 3 sets - 10 reps - Supine Heel Slide - 1 x daily - 7 x weekly - 3 sets - 10 reps - Seated Hip Adduction Squeeze with Ball - 1 x daily - 7 x weekly - 3 sets - 10 reps - Seated Isometric Hip Abduction - 1 x daily - 7 x weekly - 3 sets - 10 reps - Seated Cervical Rotation AROM - 3 x daily - 7 x weekly - 1 sets - 10 reps - Seated Cervical Sidebending AROM - 3 x daily - 7 x weekly - 1 sets - 3 reps documented in this encounterA[facility]05-[facility] Telephone encounter Note * Telephone Encounter - Nataliia Burnham RN - 01/24/2025 3:05 PM EDT Attempted to schedule Ortho appt, however PSS states new Ortho referral needs placed. PSS also states a referral for each condition would need placed; such one for cervical issue and one for hip, etc. States one ortho referral will not cover more than one issue. Please call patient and assist her with scheduling, once new referral(s) are placed. Nataliia Burnham RN [facility]05-08-2025 Miscellaneous Notes* Telephone Encounter - Nataliia Burnham RN - 01/24/2025 3:05 PM EDT Attempted to schedule Ortho appt, however PSS states new Ortho referral needs placed. PSS also states a referral for each condition would need placed; such one for cervical issue and one for hip, etc. States one ortho referral will not cover more than one issue. Please call patient and assist her with scheduling, once new referral(s) are placed. Nataliia Burnham RN * Telephone Encounter - Duyen Bey LPN - 01/24/2025 2:48 PM EDT Message left for patient to go ahead and schedule the referral with Ortho now. Number left for scheduling desk. Duyen Bey LPN * Telephone Encounter - Maribel aFy MD - 01/24/2025 10:23 AM EDT She should schedule referral now. * Telephone Encounter - Duyen Bey LPN - 01/22/2025 3:40 PM EDT Phoned patient and reviewed results of cervical spine and hip xrays with her. She voiced understanding and will discuss referral at appointment in 4 weeks. Unless PCP feels she should go ahead and get the referral now. Duyen Bey LPN * Telephone Encounter - Duyen Bey LPN - 01/22/2025 3:38 PM EDT ----- Message from Maribel Fay MD sent at 01/22/2025 3:15 PM EDT ----- Xray of the cervical spine shows arthritis changes without fracture. Continue treatment as discussed in office. * Telephone Encounter - Duyen Bey LPN - 01/22/2025 3:38 PM EDT ----- Message from Maribel Fay MD sent at 01/22/2025 3:14 PM EDT ----- Xray of the hip is negative for fracture. Positive for severe arthritis. Continue treatment as discussed in office. Consider referral to ortho to discuss injection. She is not a good candidate for hip replacement. documented in this encounterA[facility]05-[facility] Telephone encounter Note * Telephone Encounter - Duyen Bey LPN - 01/24/2025 2:48 PM EDT Message left for patient to go ahead and schedule the referral with Ortho now. Number left for scheduling desk. Duyen Bey LPN [facility]05-08-2025 Telephone encounter Note* Telephone Encounter - Maribel Fay MD - 01/24/2025 10:23 AM EDT She should schedule referral now. [facility]05-06-2025 Telephone encounter Note* Telephone Encounter - Duyen Bey LPN - 01/22/2025 3:40 PM EDT Phoned patient and reviewed results of cervical spine and hip xrays with her. She voiced understanding and will discuss referral at appointment in 4 weeks. Unless PCP feels she should go ahead and get the referral now. Duyen Bey LPN [facility]05-06-2025 Telephone encounter Note* Telephone Encounter - Duyen Bey LPN - 01/22/2025 3:38 PM EDT ----- Message from Maribel Fay MD sent at 01/22/2025 3:15 PM EDT ----- Xray of the cervical spine shows arthritis changes without fracture. Continue treatment as discussed in office. [facility]05-06-2025 Telephone encounter Note* Telephone Encounter - Duyen Bey LPN - 01/22/2025 3:38 PM EDT ----- Message from Maribel Fay MD sent at 01/22/2025 3:14 PM EDT ----- Xray of the hip is negative for fracture. Positive for severe arthritis. Continue treatment as discussed in office. Consider referral to ortho to discuss injection. She is not a good candidate for hip replacement. [facility]05-06-2025 History of Present illness Narrative* Trevor Peña RT(R) - 01/22/2025 2:20 PM EDT Radiology Service Progress Note PATIENT NAME: Charlette Farmer DATE OF SERVICE: January 22, 2025 TIME: 2:17 PM PATIENT IDENTITY VERIFICATION COMPLETED USING TWO (2) IDENTIFIERS: Name and Date of confirmedby patient verbally. FALL SCREENING: Has the patient had 2 falls in the last year or 1 fall with injury or currently using an Ambulatory Assistive Device (Walker, Cane, Wheelchair, Crutches, etc.)? No PATIENT GENDER DATA: Assigned female at . status: : No status:NO. PATIENT RELEVANT IMPLANT DATA REVIEWED: Yes PATIENT PRESENTS WITH AN IMPLANTABLE OR ATTACHED PARQUETRY LAYER: No RADIOLOGY DEPARTMENT: General X-ray: Exam(s) Completed: Spine X-Ray(s): Cervical AP / LAT / FLEX-EXT Pelvis X-Ray: Pelvis with Hip Left PERIPHERAL IV DATA: Not applicable SIGNED BY: RT Grace(R) January 22, 2025 2:17 PM documented in this encounterA[facility]25 NoteHNO ID: [id number] Author: TREVOR PEÑA RT(R) Service: ? Author Type: Employer Relations Representative Type: Progress Notes Filed: 01/22/2025 14:52 Note Text: Radiology Service Progress Note PATIENT NAME: Charlette Farmer DATE OF SERVICE: January 22, 2025 TIME: 2:17 PM PATIENT IDENTITY VERIFICATION COMPLETED USING TWO (2) IDENTIFIERS: Name and Date of confirmed by patient verbally. FALL SCREENING: Has the patient had 2 falls in the last year or 1 fall with injury or currently using an Ambulatory Assistive Device (Walker, Cane, Wheelchair, Crutches, etc.)? No PATIENT GENDER DATA: Assigned female at . status: : No status: NO. PATIENT RELEVANT IMPLANT DATA REVIEWED: Yes PATIENT PRESENTS WITH AN IMPLANTABLE OR ATTACHED PARQUETRY LAYER: No RADIOLOGY DEPARTMENT: General X-ray: Exam(s) Completed: Spine X-Ray(s): Cervical AP / LAT / FLEX-EXT Pelvis X-Ray: Pelvis with Hip Left PERIPHERAL IV DATA: Not applicable SIGNED BY: RT Grace(R) January 22, 2025 2:17 [facility]05-06-2025 Instructions* Patient Instructions* Maribel Fay MD - 01/22/2025 2:02 PM EDT Continue treatment with tylenol up to 3 times per day along with ice/heat 15-20 minutes as needed for pain. Do home exercises daily. Follow up with physical therapy. Call with severe pain or worsening symptoms. Your prednisone will make your sugars high while you are on it. Call with sugar readings above 250. documented in this encounterA[facility]25 NoteHNO ID: [id number] Author: MARIBEL FAY MD Service: ? Author Type: Physician Type: Progress Notes Filed: 01/22/2025 14:15 Note Text: Chief Complaint Patient presents with: Follow Up: 4 week Pain: Stiffness neck and left leg c/o is useless- reports due to being in tight quarters in a car for 5-[address] plus stayed in soft bed while away HPI Charlette Farmer is a 89 year old female who presents here today for Above Complaints.. Patient states that she went on a 5-6 hour car trip about 1-2 weeks ago and since then has had a stiff neck and some pain in her left groin. Notes that she was cramped in the backseat and only stopped once on the way there and back. Pain in her left groin described as constant aching, /, with occasional radiation down her leg to the ankle. Exacerbated with raising her left leg. Unable to bear weight on her left leg tarting yesterday because of the pain in her groin. Treating with tylenol 2-3 times per day which helps temporarily. Denies fever/chills, erythema, swelling, bruising, fall/injury. For her neck, she gets pain with rotation, but not with looking up or down. Currently 8/10. Tylenol does not seem to help much with this. Has not tried ice/heat or massage. Denies headache, vision changes, slurred speech, facial droop, numbness/tingling/weakness. Past medical history, appointments, medications, allergies reviewed. Previous Medical History PAST MEDICAL HISTORY Diagnosis Date Arthritis Benign neoplasm of colon tubular adenoma Carpal tunnel syndrome, right Chronic kidney disease, stage 3 (HCC) Diverticulitis 10/10/2020 Diverticulosis of colon (without mention of hemorrhage) Gout History of colonic polyps 2023, hyperplastic and tubular adenoma History of transfusion Internal hemorrhoids without mention of complication Lumbago Malignant neoplasm of corpus uteri, except isthmus (HCC) 1996 Uterine cancer Other and unspecified hyperlipidemia PAD (peripheral artery disease) 2013 Mild LLE Pernicious anemia Restless leg syndrome Rotator cuff tendinitis left Trigger finger, right middle finger Seen by Dr. Burns 2015 Type II or unspecified type diabetes mellitus without mention of complication, uncontrolled Unspecified essential hypertension Previous Surgical History PAST SURGICAL HISTORY Procedure Laterality Date ABDOMINAL SURGERY HX APPENDECTOMY 1952 BACK SURGERY HX CHOLECYSTECTOMY 11/28/2011 COLONOSCOPY 07/12/2024 COLONOSCOPY FLX DX W/COLLJ SPEC WHEN PFRMD 2001 out of state sigmoidoscopy COLONOSCOPY FLX DX W/COLLJ SPEC WHEN PFRMD 10/22/2013 Colonoscopy COLONOSCOPY GEN ANES 01/07/2021 Dr. Phillips, Polyps. repeat in 3 years. COLONOSCOPY W/BIOPSY SINGLE/MULTIPLE 11/12/2008 DILATION AND CURETTAGE DXAND/THER NONOBSTETRIC 1965 Dilation AND curettage EGD 01/07/2021 EGD 07/12/2024 EYE SURGERY HX LAMINECTOMY W/O FFD 09/20 VERT SEG LUMBAR 1971 Laminectomy, lumbar, fusion PAST SURGICAL HISTORY OF Left 09/01/2017 Trigger finger release of left ringer finger REVISE MEDIAN N/CARPAL TUNNEL SURG Right 05/31/2023 REVISE MEDIAN N/CARPAL TUNNEL SURG Left 12/13/2024 TONSILLECTOMY HX TUBAL LIGATION HX VAGINAL HYSTERECTOMY VAGINAL HYSTERECTOMY UTERUS 250 GM/< 1997 Hysterectomy, vaginal Family History FAMILY HISTORY Problem Relation Age of Onset Cancer Mother breast, lung cancer was heavy smoker Diabetes Maternal Grandmother Diabetes Maternal Grandfather other (no siblings) Maternal Grandfather Patient Allergies ALLERGIES Allergen Reactions Lipitor [Atorvastat* Intolerance myalgia Simvastatin Intolerance myalgia Current Medications Current Outpatient Medications on File Prior to Visit Medication Sig insulin lispro (HUMALOG U-100 INSULIN) 100 unit/mL injection Inject 8 Units subcutaneously three times a day before meals. aspirin 81 mg chewable tablet Take 81 mg by mouth once daily. lancets (TRUEPLUS LANCETS) 33 gauge Use with blood glucose test two times a day. Insulin Dep? Yes pramipexole (MIRAPEX) 0.25 mg tablet Take 1 tablet by mouth daily at bedtime. lisinopril 2.5 mg tablet Take 1 tablet by mouth once daily. Insulin Volborg, Disposable, (PEN NEEDLE) 29 gauge x 1/2 One needle three times daily. Dx: 250.02 Insulin: yes blood sugar diagnostic (TRUE METRIX GLUCOSE TEST STRIP) test strip Test 3 times daily DX:250.02 Insulin: Yes gabapentin (NEURONTIN) 600 mg tablet Take 1 tablet by mouth two times a day for 90 days. insulin glargine (LANTUS SOLOSTAR U-100 INSULIN) 100 unit/mL (3 mL) Inject 18 units subcutaneously at bedtime cyanocobalamin (VITAMIN B-12) 1,000 mcg tab Take one tablet every other day Dx: pernicious anemia allopurinol (ZYLOPRIM) 100 mg tablet Take 1 tablet by mouth two times a day. Acetaminophen 500 mg cap Take 2 capsules by mouth two times a day as needed for pain. Reports will utilize 1 500mg tab 1-2 times in between the (more content not included)...[facility] [place]05-06-2025 History of Present illness Narrative* Maribel Fay MD - 01/22/2025 1:36 PM EDT Chief Complaint Patient presents with: Follow Up: 4 week Pain: Stiffness neck and left leg c/o is useless- reports due to being in tight quarters in a car for 5-[address] plus stayed in soft bed while away HPI Charlette Farmer is a 89 year old female who presents here today for Above Complaints.. Patient states that she went on a 5-6 hour car trip about 1-2 weeks ago and since then has had a stiff neck and some pain in her left groin. Notes that she was cramped in the backseat and only stopped once on the way there and back. Pain in her left groin described as constant aching, 8/10, with occasional radiation down her leg to the ankle. Exacerbated with raising her left leg. Unable to bear weight on her left leg tarting yesterday because of the pain in her groin. Treating with tylenol 2-3 times per day which helps temporarily. Denies fever/chills, erythema, swelling, bruising, fall/injury. For her neck, she gets pain with rotation, but not with looking up or down. Currently 8/10. Tylenoldoes not seem to help much with this. Has not tried ice/heat or massage. Denies headache, vision changes, slurred speech, facial droop, numbness/tingling/weakness. Past medical history, appointments, medications, allergies reviewed. Previous Medical History PAST MEDICAL HISTORY Diagnosis Date Arthritis Benign neoplasm of colon tubular adenoma Carpal tunnel syndrome, right Chronic kidney disease, stage 3 (HCC) Diverticulitis 10/10/2020 Diverticulosis of colon (without mention of hemorrhage) Gout History of colonic polyps 2023, hyperplastic and tubular adenoma History of transfusion Internal hemorrhoids without mention of complication Lumbago Malignant neoplasm of corpus uteri, except isthmus (HCC) 1996 Uterine cancer Other and unspecified hyperlipidemia PAD (peripheral artery disease) 2013 Mild LLE Pernicious anemia Restless leg syndrome Rotator cuff tendinitis left Trigger finger, right middle finger Seen by Dr. Burns 2015 Type II or unspecified type diabetes mellitus without mention of complication, uncontrolled Unspecified essential hypertension Previous Surgical History PAST SURGICAL HISTORY Procedure Laterality Date ABDOMINAL SURGERY HX APPENDECTOMY 1952 BACK SURGERY HX CHOLECYSTECTOMY 11/28/2011 COLONOSCOPY 07/12/2024 COLONOSCOPY FLX DX W/COLLJ SPEC WHEN PFRMD 2001 out of state sigmoidoscopy COLONOSCOPY FLX DX W/COLLJ SPEC WHEN PFRMD 10/22/2013 Colonoscopy COLONOSCOPY GEN ANES 01/07/2021 Dr. Phillips, Polyps. repeat in 3 years. COLONOSCOPY W/BIOPSY SINGLE/MULTIPLE 11/12/2008 DILATION & CURETTAGE DX&/THER NONOBSTETRIC 1965 Dilation & curettage EGD 01/07/2021 EGD 07/12/2024 EYE SURGERY HX LAMINECTOMY W/O FFD 09/20 VERT SEG LUMBAR 1971 Laminectomy, lumbar, fusion PAST SURGICAL HISTORY OF Left 09/01/2017 Trigger finger release of left ringer finger REVISE MEDIAN N/CARPAL TUNNEL SURG Right 05/31/2023 REVISE MEDIAN N/CARPAL TUNNEL SURG Left 12/13/2024 TONSILLECTOMY HX TUBAL LIGATION HX VAGINAL HYSTERECTOMY VAGINAL HYSTERECTOMY UTERUS 250 GM/< 1997 Hysterectomy, vaginal Family History FAMILY HISTORY Problem Relation Age of Onset Cancer Mother breast, lung cancer was heavy smoker Diabetes Maternal Grandmother Diabetes Maternal Grandfather other (no siblings) Maternal Grandfather Patient Allergies ALLERGIES Allergen Reactions Lipitor [Atorvastat* Intolerance myalgia Simvastatin Intolerance myalgia Current Medications Current Outpatient Medications on File Prior to Visit Medication Sig insulin lispro (HUMALOG U-100 INSULIN) 100 unit/mL injection Inject 8 Units subcutaneously three times a day before meals. aspirin 81 mg chewable tablet Take 81 mg by mouth once daily. lancets (TRUEPLUS LANCETS) 33 gauge Use with blood glucose test two times a day. Insulin Dep? Yes pramipexole (MIRAPEX) 0.25 mg tablet Take 1 tablet by mouth daily at bedtime. lisinopril 2.5 mg tablet Take 1 tablet by mouth once daily. Insulin Volborg, Disposable, (PEN NEEDLE) 29 gauge x 1/2 One needle three times daily. Dx: 250.02 Insulin: yes blood sugar diagnostic (TRUE METRIX GLUCOSE TEST STRIP) test strip Test 3 times daily DX:250.02 Insulin: Yes gabapentin (NEURONTIN) 600 mg tablet Take 1 tablet by mouth two times a day for 90 days. insulin glargine (LANTUS SOLOSTAR U-100 INSULIN) 100 unit/mL (3 mL) Inject 18 units subcutaneously at bedtime cyanocobalamin (VITAMIN B-12) 1,000 mcg tab Take one tablet every other day Dx: pernicious anemia allopurinol (ZYLOPRIM) 100 mg tablet Take 1 tablet by mouth two times a day. Acetaminophen 500 mg cap Take 2 capsules by mouth two times a day as needed for pain. Reports will utilize 1 500mg tab 1-2 times in between the 1000 mg doses meclizine (ANTIVERT) 25 mg tab Take 25 mg by mouth as needed. melatonin 3 mg Take by mouth daily at bedtime. COMPOUNDED PRESCRIPTION Cock up wrist splint, right Medium. To be worn nightly to prevent carpal tunnel symptoms. Dx: carpal tunnel right Blood-Glucose Meter, Drum-type (ACCU-CHEK COMPACT PLUS CARE) Misc Kit 1 Each. Accu-Check Compact Plus Meter Diagnosis: Diabetes Mellitus No current facility-administered medications on file prior to visit. Social History Social History Tobacco Use Smoking status: Former Current packs/day: 0.00 Average packs/day: 1 pack/day for 21.0 years (21.0 ttl pk-yrs) Types: Cigarettes Start date: 11/23/1952 Quit date: 09/19/1973 Years since quittin.3 Smokeless tobacco: Never Vaping Use Vaping status: Never Used Substance Use Topics Alcohol use: Yes Comment: occas glass of wine Drug use: No Review of Symptoms REVIEW OF SYSTEMS See HPI EXAM: BP 94/60 Pulse 72 Resp 16 Wt 71.1 kg (156 lb 12.8 oz) SpO2 96% BMI 29.63 kg/m General Appearance: Well appearing, alert, in no acute distress, well-hydrated, well nourished.. Skin: Skin color, texture, turgor normal, no suspicious rashes or lesions. Back:no pain to palpation of vertebrae, no muscle tenderness, reflexes are 2+ and symmetric, motor and sensory appear to be normal, no evidence of scoliosis Musculoskeletal: TTP over cervical paraspinal muscles bilaterally HIP: Location: Left Redness: No. Warmth: No. Range of motion: Limited flexion, internal/external rotation due to pain. Tenderness over trochanteric bursa: No Pain with movement: Yes. Health Maintenance List Depression Screening Never done Anxiety Screening Never done Advance Directive Discussion due on 09/19/2024 Dilated Retinal Exam due on 11/15/2024 Covid-19 Vaccine( season) due on 01/01/2025 DTaP,Tdap,Td Vaccine(2 - Tdap) due on 11/19/2025 RSV Vaccine(1 - 1-dose 75+ series) due on 11/19/2025 Shingrix Vaccine(2 of 2) due on 11/19/2025 HbA1C due on 02/19/2025 Urine Albumin:Creatinine Ratio due on 08/17/2025 Diabetic Foot Exam due on 08/17/2025 LDL Cholesterol due on 11/19/2025 Bone Density Screening Completed Influenza Vaccine Completed Pneumococcal Vaccine: 50+ Completed ASSESSMENT/PLAN: 1. Neck pain - ICD9: 723.1, ICD10: M54.2 (primary diagnosis) Suspect neck strain vs stiffness with OA from her long car ride. Obtain xray today. Start prednisone burst. Discussed muscle relaxer, but with her gabapentin I worry that it will cause her to be too drowsy and increase her risk of falls. Given exercises for home. Refer to PT if not improving. - XR CERV OTHER 4V AP/LAT/FLX/EXT - PREDNISONE 20 MG TABLET - CONSULT TO PHYSICAL THERAPY - XR CERV OTHER 4V AP/LAT/FLX/EXT 2. Acute hip pain, left - ICD9: 719.45, ICD10: M25.552 Suspect 2/2 OA from long car ride. Obtain xray to rule out fracture. Start prednisone. Discussed ice/heat, tylenol, mobilization, and PT referral. Red flags for re-assessment reviewed with patient indetail. - XR HIP GENERAL 3V PELV/AP/LAT LEFT - PREDNISONE 20 MG TABLET - CONSULT TO PHYSICAL THERAPY - XR HIP GENERAL 3V PELV/AP/LAT LEFT Maribel Fay MD [facility] Instructions* Patient Instructions* Karel Santiago - 01/18/2025 1:30 PM EDT Diabetes Foot Care Instructions When you have diabetes, proper foot care is very important. Poor foot care may lead to amputation of a foot or leg. As a person with diabetes, you are more vulnerable to foot problems, because diabetes can damage your nerves and reduce blood flow to your feet. Here are some diabetes foot care tips to follow: Wash and Dry Your Feet Daily Use mild soaps Use warm water Pat your skin dry; do not rub. Thoroughly dry your feet. After washing, use lotion on your feet to prevent cracking. Do not put lotion between your toes. Examine Your Feet Each Day Check the tops and bottoms of your feet. Have someone else look at your feet if you cannot see them. Check for dry, cracked skin. Look for blisters, cuts, scratches, or other sores. Check for redness, increased warmth, or tenderness when touching any area of your feet. Check for ingrown toenails, corns, and calluses. If you get a blister or sore from your shoes, do not pop it. Apply a bandage and wear a differentpair of shoes. Take Care of Your Toenails Cut toenails after bathing, when they are soft. Cut toenails straight across and smooth with a nail file. Avoid cutting into the corners of toes. Do not cut cuticles. If you have neuropathy (or decreased sensation in your feet) a clinical informatics director should always cut your toenails. Be Careful When Exercising Walk and exercise in comfortable shoes. Do not exercise when you have open sores on your feet. Protect Your Feet With Shoes and Socks Never go barefoot. Always protect your feet by wearing shoes or hard-soled slippers or footwear. Avoid shoes with high heels and pointed toes. Avoid shoes that expose your toes or heels (such as open-toed shoes or sandals). These types of shoes increase your risk for injury and potential infections. Try on new footwear with the type of socks you usually wear. Do not wear new shoes for more than an hour at a time. Change your socks daily. Look and feel inside your shoes before putting them on to make sure there are no foreign objects orrough areas. Avoid tight socks. Wear natural-fiber socks (cotton, wool, or a cotton-wool blend). Wear special shoes if your health care provider recommends them. Wear shoes/boots that will protect your feet from various weather conditions (cold, moisture, etc.). Make sure your shoes fit properly. If you have neuropathy (nerve damage), you may not notice that your shoes are too tight. Perform the footwear test described below. Footwear Test Use this simple test to see if your shoes fit correctly: Stand on a piece of paper. (Make sure you are standing and not sitting, because your foot changes shape when you stand.) Trace the outline of your foot. Trace the outline of your shoe. Compare the tracings: Is the shoe too narrow? Is your foot crammed into the shoe? The shoe should be at least 1/2 inch longer than your longest toe and as wide as your foot. Proper Shoe Choices The following types of shoes are best for people with diabetes Closed toes and heels Leather uppers without a seam inside At least 1/2 inch extra space at the end of your longest toe Inside of shoe should be soft with no rough areas Outer sole should be made of stiff material Shoes should be at least as wide as your feet Tips for Foot Care in Diabetes Don't wait to treat a minor foot problem if you have diabetes. Follow your health care provider's guidelines and first aid guidelines. Report foot injuries and infections to your health care provider immediately. Check water temperature with your elbow, not your foot. Do not use a heating pad on your feet. Do not cross your legs. Do not self-treat your corns, calluses, or other foot problems. Go to your health care provider or clinical informatics director to treat these conditions. documented in this encounterA[facility]25 NoteHNO ID: [id number] Author: KAREL SANTIAGO, ? Service: ? Author Type: Physician Type: Progress Notes Filed: 01/18/2025 13:35 Note Text: Last saw pcp: 12/20/24 Subjective: Patient presents to clinic c/o painful toenails. They state that the nails are especially painful with shoe gear and pressure. Patient states that nails 1-5 b/l are painful. Patient admits to being diabetic. Patient reports numbness in right foot. No other pedal complaints at this time. Patient states no change in medications or medical history since last visit. Objective: Patient presents to clinic ambulating in [facility] Vasc: DP and PT pulses are faintly palpable bilateral. CFT is less than 5 seconds bilateral. Skin temperature is warm to cool proximal to distal bilateral. There is moderate edema or varicosities noted. Neuro: Protective sensation is decreased to the foot and toes when tested with the 5.07 SWM bilateral. Vibratory sensation is absent at the hallux IPJ bilateral. The hallux is downgoing bilateral. Derm: Nails 1-5 b/l are painful, discolored-yellow, thick, crumbly, dystrophic and with subungal debris. Skin is of normal turgor, texture and hair growth is decreased bilateral. There are no hyperkeratosis, ulcerations, scars, verruca or other lesions noted. Ortho: Muscle strength is 5/5 for all pedal groups tested. Ankle joint DF is decreased with the knee extended with no pain or crepitus noted. 1st MPJ ROM is decreased bilateral. Hammertoe of b/l 2nd toe Assessment: (B35.1) Onychomycosis (primary encounter diagnosis) (M79.674) Pain in toe of right foot (M79.675) Pain in toe of left foot (E11.42) DM type 2 with diabetic peripheral neuropathy (HCC) (M20.42) Hammer toe of left foot (M20.41) Hammer toe of right foot Plan: Patient was seen and evaluated. Nails 1-5 bilateral were debrided in length and thickness. Patient was instructed on the continued importance of diabetic foot care along with proper diet and keeping their blood sugar under control to prevent complications. I stressed the importance of avoiding barefoot walking, wearing good shoes and inspection of feet. Due to hammertoe and neuropathy, we discussed diabetic shoes. She is inclined to continue with current shoes. Patient is to RTC in 3-4 months. Karel Santiago [facility]05-02-2025 History of Present illness Narrative* Karel Santiago - 01/18/2025 1:24 PM EDT Last saw pcp: 12/20/24 Subjective: Patient presents to clinic c/o painful toenails. They state that the nails are especially painful with shoe gear and pressure. Patient states that nails 1-5 b/l are painful. Patient admits to being diabetic. Patient reports numbness in right foot. No other pedal complaints at this time. Patient states no change in medications or medical history since last visit. Objective: Patient presents to clinic ambulating in [facility] Vasc: DP and PT pulses are faintly palpable bilateral. CFT is less than 5 seconds bilateral. Skin temperature is warm to cool proximal to distal bilateral. There is moderate edema or varicosities noted. Neuro: Protective sensation is decreased to the foot and toes when tested with the 5.07 SWM bilateral. Vibratory sensation is absent at the hallux IPJ bilateral. The hallux is downgoing bilateral. Derm: Nails 1-5 b/l are painful, discolored-yellow, thick, crumbly, dystrophic and with subungal debris. Skin is of normal turgor, texture and hair growth is decreased bilateral. There are no hyperkeratosis, ulcerations, scars, verruca or other lesions noted. Ortho: Muscle strength is 5/5 for all pedal groups tested. Ankle joint DF is decreased with the knee extended with no pain or crepitus noted. 1st MPJ ROM is decreased bilateral. Hammertoe of b/l 2nd toe Assessment: (B35.1) Onychomycosis (primary encounter diagnosis) (M79.674) Pain in toe of right foot (M79.675) Pain in toe of left foot (E11.42) DM type 2 with diabetic peripheral neuropathy (HCC) (M20.42) Hammer toe of left foot (M20.41) Hammer toe of right foot Plan: Patient was seen and evaluated. Nails 1-5 bilateral were debrided in length and thickness. Patient was instructed on the continued importance of diabetic foot care along with proper diet andkeeping their blood sugar under control to prevent complications. I stressed the importance of avoiding barefoot walking, wearing good shoes and inspection of feet. Due to hammertoe and neuropathy, we discussed diabetic shoes. She is inclined to continue with current shoes. Patient is to RTC in 3-4 months. Karel Santiago DPM documented in [facility] NoteHNO ID: [id number] Author: ?, ?, ? Service: ? Author Type: ? Type: Progress Notes Filed: 01/16/2025 10:07 Note Text: POPULATION HEALTH NAVIGATION OUTREACH Action/FYI Patient outreach for HCC gap; JUAREZ WATKINS, AWV. Spoke with patient and requests call back. Handup message sent, appointment notes updated. Reason for Outreach Care Gap/HCC or Scheduling Wellness Visits Care Gaps due: Medicare Annual Wellness Visit Diabetic Eye Exam KED Patient Contacted: Spoke to patient/parent/or legal guardian Patient identified by name and : Yes Care Gap/HCC/Scheduling Wellness actions taken: Patient declined: Patient requested call back from navigator/ will call navigator back Updated appointment note HCC related Navigation Signature: Asia William January 16, 2025 10:00 [facility]04-30-2025 History of Present illness Narrative* Asia Easley - 01/16/2025 10:00 AM EDT POPULATION HEALTH NAVIGATION OUTREACH Action/I Patient outreach for HCC gap; JUAREZ WATKINS, AWV. Spoke with patient and requests call back. Handup message sent, appointment notes updated. Reason for Outreach Care Gap/HCC or Scheduling Wellness Visits Care Gaps due: Medicare Annual Wellness Visit Diabetic Eye Exam KED Patient Contacted: Spoke to patient/parent/or legal guardian Patient identified by name and : Yes Care Gap/HCC/Scheduling Wellness actions taken: Patient declined: Patient requested call back from navigator/ will call navigator back Updated appointment note HCC related Navigation Signature: Asia William January 16, 2025 10:00 AM documented in this encounterA[facility]04-30-[facility] NotePatient Outreach (NETNAV) CHARLETTE FARMER ([id number]) 1935 F Date Time Provider Department 01/16/25 MARIBEL FAY During your visit today, we recorded the following information about you: Oliver WilliamKatelynnAsia 01/16/2025 10:07 AM Addendum POPULATION HEALTH NAVIGATION OUTREACH Action/FYI Patient outreach for HCC gap; KED, JUAREZ, AWV. Spoke with patient and requests call back. Handup message sent, appointment notes updated. Reason for Outreach Care Gap/HCC or Scheduling Wellness Visits Care Gaps due: Medicare Annual Wellness Visit Diabetic Eye Exam KED Patient Contacted: Spoke to patient/parent/or legal guardian Patient identified by name and : Yes Care Gap/HCC/Scheduling Wellness actions taken: Patient declined: Patient requested call back from navigator/ will call navigator back Updated appointment note HCC related Navigation Signature: Asia William January 16, 2025 10:00 AM Allergies As of Date: 01/16/2025 Noted Allergy Reaction LIPITOR (ATORVASTATIN) 07/19/2007 5 - Intolerance Comments: myalgia SIMVASTATIN 07/19/2007 5 - Intolerance Comments: myalgia Date Reviewed: 12/28/2024 Reviewed by: Tanika Mathews PA-C - Fully Assessed Reason for Visit: Population Health Navigation Outreach [3910] Cmt: Candice Lorenzo Prescriptions as of 01/16/2025 - insulin lispro (HUMALOG U-100 INSULIN) 100 unit/mL injection Inject 8 Units subcutaneously three times a day before meals. - aspirin 81 mg chewable tablet Take 81 mg by mouth once daily. - lancets (TRUEPLUS LANCETS) 33 gauge Use with blood glucose test two times a day. Insulin Dep? Yes - pramipexole (MIRAPEX) 0.25 mg tablet Take 1 tablet by mouth daily at bedtime. - lisinopril 2.5 mg tablet Take 1 tablet by mouth once daily. - Insulin Volborg, Disposable, (PEN NEEDLE) 29 gauge x 1/2 One needle three times daily. Dx: 250.02 Insulin: yes - blood sugar diagnostic (TRUE METRIX GLUCOSE TEST STRIP) test strip Test 3 times daily DX:250.02 Insulin: Yes - gabapentin (NEURONTIN) 600 mg tablet Take 1 tablet by mouth two times a day for 90 days. - insulin glargine (LANTUS SOLOSTAR U-100 INSULIN) 100 unit/mL (3 mL) Inject 18 units subcutaneously at bedtime - cyanocobalamin (VITAMIN B-12) 1,000 mcg tab Take one tablet every other day Dx: pernicious anemia - allopurinol (ZYLOPRIM) 100 mg tablet Take 1 tablet by mouth two times a day. - Acetaminophen 500 mg cap Take 2 capsules by mouth two times a day as needed for pain. Reports will utilize 1 500mg tab 1-2 times in between the 1000 mg doses - meclizine (ANTIVERT) 25 mg tab Take 25 mg by mouth as needed. - melatonin 3 mg Take by mouth daily at bedtime. - COMPOUNDED PRESCRIPTION Cock up wrist splint, right Medium. To be worn nightly to prevent carpal tunnel symptoms. Dx: carpal tunnel right - Blood-Glucose Meter, Drum-type (ACCU-CHEK COMPACT PLUS CARE) Misc Kit 1 Each. Accu-Check Compact Plus Meter Diagnosis: Diabetes Mellitus Problem List As Of Date 01/16/2025 Noted Resolved Other specified disorders of rotator cuff syndr*02/16/2006 10/18/2016 Malignant neoplasm of corpus uteri, except isth* 11/24/2015 HYPERLIPIDEMIA NEC/NOS [E78.5] 10/14/2015 Lumbago [M54.50] 06/15/2016 DIABETES MELLITUS TYPE II UNCONTR UNCOMPL [IMO0* 07/18/2014 HYPERTENSION NOS [I10] 10/14/2015 Special screening for malignant neoplasms, colo*11/12/2008 11/24/2015 Benign neoplasm of colon [D12.6] 11/12/2008 11/24/2015 Diverticulosis of colon [K57.30] 11/12/2008 Internal hemorrhoids without mention of complic*11/12/2008 10/14/2015 Tubular adenoma of rectum [D12.8] 02/25/2011 11/24/2015 Pernicious anemia [D51.0] 08/25/2012 Medicare annual wellness visit, initial [Z00.00]09/28/2013 11/24/2015 Stage 3b chronic kidney disease (HCC) [N18.32] 04/12/2014 PAD (peripheral artery disease) (HCC) [I73.9] 05/02/2014 Medicare annual wellness visit, subsequent [Z00*10/11/2014 11/24/2015 Diabetes mellitus with neuropathy (HCC) [E11.40]10/11/2014 11/24/2015 Essential hypertension [I10] 10/14/2015 Mixed hyperlipidemia [E78.2] 10/14/2015 DM type 2 with diabetic peripheral neuropathy (*11/12/2015 Trigger middle finger of right hand [M65.331] 11/20/2015 Trigger finger, left ring finger [M65.342] 08/25/2017 Restless leg syndrome [G25.81] Type 2 diabetes mellitus with diabetic chronic *08/15/2023 Type 2 diabetes mellitus with diabetic peripher*11/05/2022 Carpal tunnel syndrome, right [G56.01] 11/09/2022 Stage 4 chronic kidney disease (HCC) [N18.4] 09/08/2023 Personal history of malignant neoplasm of cervi*09/08/2023 Diagnosed: 1996 Arthritis of left hip [M16.12] 11/08/2023 History of colonic polyps [Z86.0100] 07/12/2024 Positive fecal occult blood test [R19.5] 07/12/2024 History of lumbar fusion [Z98.1] 12/11/2024 Gout [M10.9] 12/11/2024 Former smoker [Z87.8 (more content not included)...[facility] 12-28-2024 NoteHNO ID: [id number] Author: TANIKA MATHEWS PA-C Service: ? Author Type: Physician Production Control Expert Type: Progress Notes Filed: 12/28/2024 11:15 Note Text: POST OP Tanika Mathews PA-C Department of Orthopaedics Orthopaedics [address] [place] [id number] Dept: [phone] Ms. Farmer presents today for her 10-14 day visit S/P left carpal tunnel release. DOS: 12/13/2024 History: her pain intensity is 1/10. The patient denies swelling, warmth, discharge, drainage, fevers, chills, sweats. She reports that her pre-operative pain has resolved and her numbness/tingling has been improving. She reports no change in past medical AND surgical history, medications, allergies, social history, family history and review of systems since last visit. Radiographs: not applicable Physical Examination: Appropriate postop appearance No evidence of erythema, warmth, discharge or drainage Incision clean/dry/intact Sutures intact Radial, median, and ulnar nerves intact. Radial pulse 2+, capillary refill <2 seconds. Procedure: SUTURE REMOVAL Date/Time: 12/28/2024 11:13 AM Performed by: Tanika Mathews PA-C Authorized by: Tanika Mathews PA-C Procedure details: Wound appearance: Clean Suture placed during surgical procedure Patient tolerance: Patient tolerated the procedure well with no immediate complications Plan: Progressing as expected in the immediate post operative period. Post op care discussed, all questions answered. Follow up as needed for repeat clinical evaluation. [facility] History of Present illness Narrative* Tanika Mathews PA-C - 12/28/2024 11:05 AM EDTAssociated Order(s): Suture Removal Post-Procedure Diagnose(s): S/P carpal tunnel release POST OP Tanika Mathews PA-C Department of Orthopaedics Orthopaedics [address] [place] [address] Dept: [phone] Ms. Farmer presents today for her 10-14 day visit S/P left carpal tunnel release. DOS: 12/13/2024 History: her pain intensity is 1/10. The patient denies swelling, warmth, discharge, drainage, fevers, chills, sweats. She reports that her pre-operative pain has resolved and her numbness/tingling has been improving. She reports no change in past medical & surgical history, medications, allergies, social history, family history and review of systems since last visit. Radiographs: not applicable Physical Examination: Appropriate postop appearance No evidence of erythema, warmth, discharge or drainage Incision clean/dry/intact Sutures intact Radial, median, and ulnar nerves intact. Radial pulse 2+, capillary refill <2 seconds. Procedure: SUTURE REMOVAL Date/Time: 12/28/2024 11:13 AM Performed by: Tanika Mathews PA-C Authorized by: Tanika Mathews PA-C Procedure details: Wound appearance: Clean Suture placed during surgical procedure Patient tolerance: Patient tolerated the procedure well with no immediate complications Plan: Progressing as expected in the immediate post operative period. Post op care discussed, all questions answered. Follow up as needed for repeat clinical evaluation. Tanika Mathews PA-C documented in this encounterA[facility]04-03-2025 NoteHNO ID: [id number] Author: MARIBEL FAY MD Service: ? Author Type: Physician Type: Progress Notes Filed: 12/25/2024 07:52 Note Text: Chief Complaint Patient presents with: Follow Up: 4 week HPI Charlette Farmer is a 89 year old female who presents here today for 4 week follow up on diabetes and hypoglycemia. Increased patient's lispro insuln from 4 to 6 units at last OV and she has been checking sugars fasting and before bed. Fasting readings typically between 80-150 with majority of readings <130. Before bed readings have been 180-300 with readings typically around the 250's. States that she has cut out sweets and ice cream. Trying to eat more healthy fruits and vegetables. Noted she had left carpal tunnel release last week without complications. Sutures in place. Taking tylenol PRN for mild pain. Has follow with ortho on 12/28. Denies fever/chills, erythema, swelling, drainage, pain. Past medical history, appointments, medications, allergies reviewed. Previous Medical History PAST MEDICAL HISTORY Diagnosis Date Arthritis Benign neoplasm of colon tubular adenoma Carpal tunnel syndrome, right Chronic kidney disease, stage 3 (HCC) Diverticulitis 10/10/2020 Diverticulosis of colon (without mention of hemorrhage) Gout History of colonic polyps 2023, hyperplastic and tubular adenoma History of transfusion Internal hemorrhoids without mention of complication Lumbago Malignant neoplasm of corpus uteri, except isthmus (HCC) 1996 Uterine cancer Other and unspecified hyperlipidemia PAD (peripheral artery disease) 2013 Mild LLE Pernicious anemia Restless leg syndrome Rotator cuff tendinitis left Trigger finger, right middle finger Seen by Dr. Burns 2015 Type II or unspecified type diabetes mellitus without mention of complication, uncontrolled Unspecified essential hypertension Previous Surgical History PAST SURGICAL HISTORY Procedure Laterality Date ABDOMINAL SURGERY HX APPENDECTOMY 195 BACK SURGERY HX CHOLECYSTECTOMY 11/28/2011 COLONOSCOPY 07/12/2024 COLONOSCOPY FLX DX W/COLLJ SPEC WHEN PFRMD 2001 out of state sigmoidoscopy COLONOSCOPY FLX DX W/COLLJ SPEC WHEN PFRMD 10/22/2013 Colonoscopy COLONOSCOPY GEN ANES 01/07/2021 Dr. Phillips, Polyps. repeat in 3 years. COLONOSCOPY W/BIOPSY SINGLE/MULTIPLE 11/12/2008 DILATION AND CURETTAGE DXAND/THER NONOBSTETRIC 1965 Dilation AND curettage EGD 01/07/2021 EGD 07/12/2024 EYE SURGERY HX LAMINECTOMY W/O FFD 09/20 VERT SEG LUMBAR 1971 Laminectomy, lumbar, fusion PAST SURGICAL HISTORY OF Left 09/01/2017 Trigger finger release of left ringer finger REVISE MEDIAN N/CARPAL TUNNEL SURG Right 05/31/2023 TONSILLECTOMY HX TUBAL LIGATION HX VAGINAL HYSTERECTOMY VAGINAL HYSTERECTOMY UTERUS 250 GM/< 1997 Hysterectomy, vaginal Family History FAMILY HISTORY Problem Relation Age of Onset Cancer Mother breast, lung cancer was heavy smoker Diabetes Maternal Grandmother Diabetes Maternal Grandfather other (no siblings) Maternal Grandfather Patient Allergies ALLERGIES Allergen Reactions Lipitor [Atorvastat* Intolerance myalgia Simvastatin Intolerance myalgia Current Medications Current Outpatient Medications on File Prior to Visit Medication Sig aspirin 81 mg chewable tablet Take 81 mg by mouth once daily. lancets (TRUEPLUS LANCETS) 33 gauge Use with blood glucose test two times a day. Insulin Dep? Yes pramipexole (MIRAPEX) 0.25 mg tablet Take 1 tablet by mouth daily at bedtime. lisinopril 2.5 mg tablet Take 1 tablet by mouth once daily. insulin lispro (HUMALOG U-100 INSULIN) 100 unit/mL injection Inject 6 Units subcutaneously three times a day before meals. Insulin Volborg, Disposable, (PEN NEEDLE) 29 gauge x 1/2 One needle three times daily. Dx: 250.02 Insulin: yes blood sugar diagnostic (TRUE METRIX GLUCOSE TEST STRIP) test strip Test 3 times daily DX:250.02 Insulin: Yes gabapentin (NEURONTIN) 600 mg tablet Take 1 tablet by mouth two times a day for 90 days. insulin glargine (LANTUS SOLOSTAR U-100 INSULIN) 100 unit/mL (3 mL) Inject 18 units subcutaneously at bedtime cyanocobalamin (VITAMIN B-12) 1,000 mcg tab Take one tablet every other day Dx: pernicious anemia allopurinol (ZYLOPRIM) 100 mg tablet Take 1 tablet by mouth two times a day. Acetaminophen 500 mg cap Take 2 capsules by mouth two times a day as needed for pain. Reports will utilize 1 500mg tab 1-2 times in between the 1000 mg doses meclizine (ANTIVERT) 25 mg tab Take 25 mg by mouth as needed. melatonin 3 mg Take by mouth daily at bedtime. COMPOUNDED PRESCRIPTION Cock up wrist splint, right Medium. To be worn nightly to prevent carpal tunnel symptoms. Dx: carpal tunnel right Blood-Glucose Meter, Drum-type (ACCU-CHEK COMPACT PLUS CARE) Misc Kit 1 Each. Accu-Check Compact Plus Meter Diagnosis: Diabetes Mellitus No current facility-administered medications on file prior (more content not included)...[facility]04-03-2025 History of Present illness Narrative* Maribel Fay MD - 12/20/2024 1:55 PM EDT Chief Complaint Patient presents with: Follow Up: 4 week HPI Charlette Farmer is a 89 year old female who presents here today for 4 week follow up on diabetes and hypoglycemia. Increased patient's lispro insuln from 4 to 6 units at last OV and she has been checking sugars fasting and before bed. Fasting readings typically between 80- 150 with majority of readings <130. Before bed readings have been 180-300 with readings typically around the 250's. States that she has cut out sweets and ice cream. Trying to eat more healthy fruits and vegetables. Noted she had left carpal tunnel release last week without complications. Sutures in place. Taking tylenol PRN for mild pain. Has follow with ortho on 12/28. Denies fever/chills, erythema, swelling, drainage, pain. Past medical history, appointments, medications, allergies reviewed. Previous Medical History PAST MEDICAL HISTORY Diagnosis Date Arthritis Benign neoplasm of colon tubular adenoma Carpal tunnel syndrome, right Chronic kidney disease, stage 3 (HCC) Diverticulitis 10/10/2020 Diverticulosis of colon (without mention of hemorrhage) Gout History of colonic polyps 2023, hyperplastic and tubular adenoma History of transfusion Internal hemorrhoids without mention of complication Lumbago Malignant neoplasm of corpus uteri, except isthmus (HCC) 1996 Uterine cancer Other and unspecified hyperlipidemia PAD (peripheral artery disease) 2013 Mild LLE Pernicious anemia Restless leg syndrome Rotator cuff tendinitis left Trigger finger, right middle finger Seen by Dr. Burns 2015 Type II or unspecified type diabetes mellitus without mention of complication, uncontrolled Unspecified essential hypertension Previous Surgical History PAST SURGICAL HISTORY Procedure Laterality Date ABDOMINAL SURGERY HX APPENDECTOMY 1952 BACK SURGERY HX CHOLECYSTECTOMY 11/28/2011 COLONOSCOPY 07/12/2024 COLONOSCOPY FLX DX W/COLLJ SPEC WHEN PFRMD 2001 out of state sigmoidoscopy COLONOSCOPY FLX DX W/COLLJ SPEC WHEN PFRMD 10/22/2013 Colonoscopy COLONOSCOPY GEN ANES 01/07/2021 Dr. Phillips, Polyps. repeat in 3 years. COLONOSCOPY W/BIOPSY SINGLE/MULTIPLE 11/12/2008 DILATION & CURETTAGE DX&/THER NONOBSTETRIC 1965 Dilation & curettage EGD 01/07/2021 EGD 07/12/2024 EYE SURGERY HX LAMINECTOMY W/O FFD 09/20 VERT SEG LUMBAR 1971 Laminectomy, lumbar, fusion PAST SURGICAL HISTORY OF Left 09/01/2017 Trigger finger release of left ringer finger REVISE MEDIAN N/CARPAL TUNNEL SURG Right 05/31/2023 TONSILLECTOMY HX TUBAL LIGATION HX VAGINAL HYSTERECTOMY VAGINAL HYSTERECTOMY UTERUS 250 GM/< 1996 Hysterectomy, vaginal Family History FAMILY HISTORY Problem Relation Age of Onset Cancer Mother breast, lung cancer was heavy smoker Diabetes Maternal Grandmother Diabetes Maternal Grandfather other (no siblings) Maternal Grandfather Patient Allergies ALLERGIES Allergen Reactions Lipitor [Atorvastat* Intolerance myalgia Simvastatin Intolerance myalgia Current Medications Current Outpatient Medications on File Prior to Visit Medication Sig aspirin 81 mg chewable tablet Take 81 mg by mouth once daily. lancets (TRUEPLUS LANCETS) 33 gauge Use with blood glucose test two times a day. Insulin Dep? Yes pramipexole (MIRAPEX) 0.25 mg tablet Take 1 tablet by mouth daily at bedtime. lisinopril 2.5 mg tablet Take 1 tablet by mouth once daily. insulin lispro (HUMALOG U-100 INSULIN) 100 unit/mL injection Inject 6 Units subcutaneously three times a day before meals. Insulin Volborg, Disposable, (PEN NEEDLE) 29 gauge x 1/2 One needle three times daily. Dx: 250.02 Insulin: yes blood sugar diagnostic (TRUE METRIX GLUCOSE TEST STRIP) test strip Test 3 times daily DX:250.02 Insulin: Yes gabapentin (NEURONTIN) 600 mg tablet Take 1 tablet by mouth two times a day for 90 days. insulin glargine (LANTUS SOLOSTAR U-100 INSULIN) 100 unit/mL (3 mL) Inject 18 units subcutaneously at bedtime cyanocobalamin (VITAMIN B-12) 1,000 mcg tab Take one tablet every other day Dx: pernicious anemia allopurinol (ZYLOPRIM) 100 mg tablet Take 1 tablet by mouth two times a day. Acetaminophen 500 mg cap Take 2 capsules by mouth two times a day as needed for pain. Reports will utilize 1 500mg tab 1-2 times in between the 1000 mg doses meclizine (ANTIVERT) 25 mg tab Take 25 mg by mouth as needed. melatonin 3 mg Take by mouth daily at bedtime. COMPOUNDED PRESCRIPTION Cock up wrist splint, right Medium. To be worn nightly to prevent carpal tunnel symptoms. Dx: carpal tunnel right Blood-Glucose Meter, Drum-type (ACCU-CHEK COMPACT PLUS CARE) [place] Kit 1 Each. Accu-Check Compact Plus Meter Diagnosis: Diabetes Mellitus No current facility-administered medications on file prior to visit. Social History Social History Tobacco Use Smoking status: Former Current packs/day: 0.00 Average packs/day: 1 pack/day for 21.0 years (21.0 ttl pk-yrs) Types: Cigarettes Start date: 11/23/1952 Quit date: 09/19/1973 Years since quittin.2 Smokeless tobacco: Never Vaping Use Vaping status: Never Used Substance Use Topics Alcohol use: Yes Comment: occas glass of wine Drug use: No Review of Symptoms REVIEW OF SYSTEMS GENERAL: No weight loss, malaise or fevers RESPIRATORY: Negative for cough, hemoptysis, wheezing, COPD, dyspnea or shortness of breath CARDIOVASCULAR: Negative for chest pain, leg swelling, hypertension, CHF or palpitations GI: No nausea, vomiting, or diarrhea SKIN: Negative for lesions, rash, and itching EXAM: BP 108/60 Pulse 74 Resp 16 Wt 73.3 kg (161 lb 9.6 oz) SpO2 95% BMI 30.53 kg/m General Appearance: Well appearing, alert, in no acute distress, well-hydrated, well nourished.. Skin: sutures in place on left wrist s/p CTR. Healing well. No cellulitis or abscess. Lungs: Lungs clear to auscultation. No wheezing, rhonchi, rales.. Heart: RRR without murmur, gallop, or rubs. No ectopy. Abdomen: Normal abdominal exam, Abdomen soft, non-tender. Bowel sounds normal. No masses, organomegaly. Extremities: No deformities, edema, skin discoloration, clubbing or cyanosis. Good capillary refill. . Health Maintenance List Depression Screening Never done Anxiety Screening Never done Advance Directive Discussion due on 09/19/2024 Dilated Retinal Exam due on 11/15/2024 DTaP,Tdap,Td Vaccine(2 - Tdap) due on 11/19/2025 RSV Vaccine(1 - 1-dose 75+ series) due on 11/19/2025 Shingrix Vaccine(2 of 2) due on 11/19/2025 Covid-19 Vaccine( season) due on 01/01/2025 HbA1C due on 02/19/2025 Urine Albumin:Creatinine Ratio due on 08/17/2025 Diabetic Foot Exam due on 08/17/2025 LDL Cholesterol due on 11/19/2025 Bone Density Screening Completed Influenza Vaccine Completed Pneumococcal Vaccine: 50+ Completed Data reviewed Latest Ref Rng 08/17/2024 11/19/2024 WBC 3.70 - 11.00 k/uL 6.03 RBC 3.90 - 5.20 m/uL 3.76 (L) Hemoglobin 11.5 - 15.5 g/dL 11.6 Hematocrit 36.0 - 46.0 % 35.5 (L) MCV 80.0 - 100.0 fL 94.4 MCH 26.0 - 34.0 pg 30.9 MCHC 30.5 - 36.0 g/dL 32.7 RDW-CV 11.5 - 15.0 % 14.5 Platelet Count 150 - 400 k/uL 207 MPV 9.0 - 12.7 fL 10.6 Neut% % 61.8 Abs Neut (ANC) 1.45 - 7.50 k/uL 3.73 Lymph% % 26.7 Abs Lymph 1.00 - 4.00 k/uL 1.61 [place]% % 8.1 Abs [place] <0.87 k/uL 0.49 Eosin% % 2.5 Abs Eosin <0.46 k/uL 0.15 Baso% % 0.7 Abs Baso <0.11 k/uL 0.04 Immature Gran % % 0.2 IMMATURE GRANS (ABS) <0.10 k/uL <0.03 NRBC /100 WBC 0.0 Absolute nRBC <0.01 k/uL <0.01 DTYPE Auto Protein, Total 6.3 - 8.0 g/dL 6.9 7.2 Albumin 3.9 - 4.9 g/dL 4.4 4.5 Calcium 8.5 - 10.2 mg/dL 9.6 10.0 Bilirubin, Total 0.2 - 1.3 mg/dL 0.4 0.4 Alkaline Phosphatase 34 - 123 U/L 80 82 AST 13 - 35 U/L 18 23 ALT 7 - 38 U/L 8 12 Glucose 74 - 99 mg/dL 91 100 (H) BUN 7 - 21 mg/dL 23 (H) 25 (H) Creatinine 0.58 - 0.96 mg/dL 1.22 (H) 1.19 (H) Sodium 136 - 144 mmol/L 141 138 Potassium 3.7 - 5.1 mmol/L 3.9 4.0 Chloride 98 - 107 mmol/L 103 101 CO2 22 - 30 mmol/L 23 27 Anion Gap 8 - 15 mmol/L 15 10 eGFR >=60 mL/min/1.73m 43 (L) 44 (L) Total Cholesterol, Nonfasting <200 mg/dL 148 Triglycerides, Nonfasting <150 mg/dL 155 (H) HDL Cholesterol, Nonfasting >39 mg/dL 56 LDL Cholesterol, Nonfasting <100 mg/dL 61 Non HDL Cholesterol, Nonfasting <130 mg/dL 92 VLDL Cholesterol, Nonfasting <30 mg/dL 31 (H) Total Chol/HDL Ratio, Nonfasting <5.10 mg/dL 2.64 LDL/HDL Ratio, Nonfasting <2.54 mg/dL 1.09 Creatinine, Ur Random (UCRR) 20.0 - 300.0 mg/dL 103.2 Albumin, Urine Random mg/L 15.1 Albumin/Creat Ratio <30 mg/g 15 Hemoglobin A1C 4.3 - 5.6 % 8.8 (H) Estimated Average Glucose mg/dL 206 Legend: (L) Low (H) High ASSESSMENT/PLAN: 1. DM type 2 with diabetic peripheral neuropathy (HCC) - ICD9: 250.60, 357.2, ICD10: E11.42 (primary diagnosis) - Improving control Increase dose of lispro insulin to 8 units TID with meals. Continue to monitor sugars 2-3 times perday and will bring in results to OV in 1 month. Red flags for re-assessment reviewed with patient in detail. - INSULIN LISPRO (U-100) 100 UNIT/ML SUBCUTANEOUS SOLUTION 2. S/P carpal tunnel release - ICD9: V45.89, ICD10: Z98.890 Healing well. F/u with ortho as scheduled. Red flags for re-assessment reviewed with patient in detail. Maribel Fay MD documented [facility] Telephone encounter Note * Telephone Encounter - Pan Mcclelland - 12/19/2024 10:16 AM EDT Images from the original note were not included. Savana De Oliveira DO You; Tanika Mathews PA-C8 days ago Ok to proceed. Savana De Oliveira DO Lewis, Jillian S, APRN.CNP8 days ago Yes, thanks:) [facility]04-02-2025 Miscellaneous Notes* Telephone Encounter - Pan Mcclelland - 12/19/2024 10:16 AM EDT Images from the original note were not included. Savana De Oliveira DO You; Tanika Mathews PA-C8 days ago Ok to proceed. Savana De Oliveira DO Lewis, Jillian S, APRN.CNP8 days ago Yes, thanks:) * Telephone Encounter - Greg Purdy APRN.SHELF FILLER - 12/11/2024 8:38 AM EDT FYI, pt scheduled for CTS release with you in [place] 12/13/2024. Pt's last A1c 8.8 11/19/2024. She is IDDM. Please advise if okay to proceed as is? documented in this encounterA[facility]03-31-[facility]25 NoteHNO ID: [id number] Author: ?, ?, ? Service: ? Author Type: ? Type: Progress Notes Filed: 12/17/2024 09:41 Note Text: POPULATION HEALTH NAVIGATION OUTREACH Action/ Patient outreach for HCC gaps; DIABETIC EYE, KED, AWV . Appointment notes updated. Mychart sent. Reason for Outreach Care Gap/HCC or Scheduling Wellness Visits Care Gaps due: Medicare Annual Wellness Visit Diabetic Eye Exam KED Patient Contacted: Unable or unnecessary to reach patient: MyChart message sent HCC related Updated appointment notes Navigation Signature: Asia William December 17, 2024 9:30 [facility]03-31-2025 History of Present illness Narrative* Asia Easley - 12/17/2024 9:30 AM EDT POPULATION HEALTH NAVIGATION OUTREACH Action/FYI Patient outreach for HCC gaps; DIABETIC EYE, KED, AWV . Appointment notes updated. Mychart sent. Reason for Outreach Care Gap/HCC or Scheduling Wellness Visits Care Gaps due: Medicare Annual Wellness Visit Diabetic Eye Exam KED Patient Contacted: Unable or unnecessary to reach patient: MyChart message sent HCC related Updated appointment notes Navigation Signature: Asia William December 17, 2024 9:30 AM documented in this encounterA[facility]03-31-[facility] NotePatient Outreach (NETNAV) MARLENYCHARLETTE ([id number]) 1935 F Date Time Provider Department 12/17/24 MARIBEL FAY During your visit today, we recorded the following information about you: Oliver WilliamAsia 12/17/2024 9:41 AM Signed POPULATION HEALTH NAVIGATION OUTREACH Action/FYI Patient outreach for HCC gaps; DIABETIC EYE, KED, AWV . Appointment notes updated. Mychart sent. Reason for Outreach Care Gap/HCC or Scheduling Wellness Visits Care Gaps due: Medicare Annual Wellness Visit Diabetic Eye Exam KED Patient Contacted: Unable or unnecessary to reach patient: MyChart message sent HCC related Updated appointment notes Navigation Signature: Asia Oliver William December 17, 2024 9:30 AM Allergies As of Date: 12/17/2024 Noted Allergy Reaction LIPITOR (ATORVASTATIN) 07/19/2007 5 - Intolerance Comments: myalgia SIMVASTATIN 07/19/2007 5 - Intolerance Comments: myalgia Date Reviewed: 12/13/2024 Reviewed by: Olga Max, RN - Fully Assessed Reason for Visit: Population Health Navigation Outreach [3910] Cmt: Candice Lorenzo Prescriptions as of 12/17/2024 - aspirin 81 mg chewable tablet Take 81 mg by mouth once daily. - lancets (TRUEPLUS LANCETS) 33 gauge Use with blood glucose test two times a day. Insulin Dep? Yes - pramipexole (MIRAPEX) 0.25 mg tablet Take 1 tablet by mouth daily at bedtime. - lisinopril 2.5 mg tablet Take 1 tablet by mouth once daily. - insulin lispro (HUMALOG U-100 INSULIN) 100 unit/mL injection Inject 6 Units subcutaneously three times a day before meals. - Insulin Volborg, Disposable, (PEN NEEDLE) 29 gauge x 1/2 One needle three times daily. Dx: 250.02 Insulin: yes - blood sugar diagnostic (TRUE METRIX GLUCOSE TEST STRIP) test strip Test 3 times daily DX:250.02 Insulin: Yes - gabapentin (NEURONTIN) 600 mg tablet Take 1 tablet by mouth two times a day for 90 days. - insulin glargine (LANTUS SOLOSTAR U-100 INSULIN) 100 unit/mL (3 mL) Inject 18 units subcutaneously at bedtime - cyanocobalamin (VITAMIN B-12) 1,000 mcg tab Take one tablet every other day Dx: pernicious anemia - allopurinol (ZYLOPRIM) 100 mg tablet Take 1 tablet by mouth two times a day. - Acetaminophen 500 mg cap Take 2 capsules by mouth two times a day as needed for pain. Reports will utilize 1 500mg tab 1-2 times in between the 1000 mg doses - meclizine (ANTIVERT) 25 mg tab Take 25 mg by mouth as needed. - melatonin 3 mg Take by mouth daily at bedtime. - COMPOUNDED PRESCRIPTION Cock up wrist splint, right Medium. To be worn nightly to prevent carpal tunnel symptoms. Dx: carpal tunnel right - Blood-Glucose Meter, Drum-type (ACCU-CHEK COMPACT PLUS CARE) Misc Kit 1 Each. Accu-Check Compact Plus Meter Diagnosis: Diabetes Mellitus Problem List As Of Date 12/17/2024 Noted Resolved Other specified disorders of rotator cuff syndr*02/16/2006 10/18/2016 Malignant neoplasm of corpus uteri, except isth* 11/24/2015 HYPERLIPIDEMIA NEC/NOS [E78.5] 10/14/2015 Lumbago [M54.50] 06/15/2016 DIABETES MELLITUS TYPE II UNCONTR UNCOMPL [IMO0* 07/18/2014 HYPERTENSION NOS [I10] 10/14/2015 Special screening for malignant neoplasms, colo*11/12/2008 11/24/2015 Benign neoplasm of colon [D12.6] 11/12/2008 11/24/2015 Diverticulosis of colon [K57.30] 11/12/2008 Internal hemorrhoids without mention of complic*11/12/2008 10/14/2015 Tubular adenoma of rectum [D12.8] 02/25/2011 11/24/2015 Pernicious anemia [D51.0] 08/25/2012 Medicare annual wellness visit, initial [Z00.00]09/28/2013 11/24/2015 Stage 3b chronic kidney disease (HCC) [N18.32] 04/12/2014 PAD (peripheral artery disease) (HCC) [I73.9] 05/02/2014 Medicare annual wellness visit, subsequent [Z00*10/11/2014 11/24/2015 Diabetes mellitus with neuropathy (HCC) [E11.40]10/11/2014 11/24/2015 Essential hypertension [I10] 10/14/2015 Mixed hyperlipidemia [E78.2] 10/14/2015 DM type 2 with diabetic peripheral neuropathy (*11/12/2015 Trigger middle finger of right hand [M65.331] 11/20/2015 Trigger finger, left ring finger [M65.342] 08/25/2017 Restless leg syndrome [G25.81] Type 2 diabetes mellitus with diabetic chronic *08/15/2023 Type 2 diabetes mellitus with diabetic peripher*11/05/2022 Carpal tunnel syndrome, right [G56.01] 11/09/2022 Stage 4 chronic kidney disease (HCC) [N18.4] 09/08/2023 Personal history of malignant neoplasm of cervi*09/08/2023 Diagnosed: 1996 Arthritis of left hip [M16.12] 11/08/2023 History of colonic polyps [Z86.0100] 07/12/2024 Positive fecal occult blood test [R19.5] 07/12/2024 History of lumbar fusion [Z98.1] 12/11/2024 Gout [M10.9] 12/11/2024 Former smoker [Z87.891] 12/11/2024 BMI 30.0-30.9,adult [Z68.30] 12/11/2024 Encounter Status:Closed by ASIA EASLEY on 12/17/24[facility] [place]03-25-2025 Telephone encounter Note* Telephone Encounter - Greg Purdy APRN.CNP - 12/11/2024 8:38 AM EDT [place], pt scheduled for CTS release with you in [place] 12/13/2024. Pt's last A1c 8.8 11/19/2024. She is IDDM. Please advise if okay to proceed as is? [facility]03-21-20[facility] Instructions* Patient Instructions* Greg Purdy APRN.CNP - 12/07/2024 12:39 PM EDT Images from the original note were not included. [facility] PATIENT PREOPERATIVE INSTRUCTIONS Savana De Oliveira,* has scheduled you for your procedure at this surgery center: [facility]: [phone] -- [address] [address]. Please read below carefully for your personalized instructions. Dietary Restrictions: - No solid food after midnight. - You may have 12 ounces of clear liquids (water, clear juices such as apple juice or gatorade, carbonated beverages, clear tea, black coffee, jello) until 2 hours before scheduled arrival at facility. Medications: Unless instructed differently below, stay on all of your medications until your surgery. If you start any new medications after today's visit, please contact your surgeon. Pre-Surgery Med Instructions Medication Instructions lancets (TRUEPLUS LANCETS) 33 gauge pramipexole (MIRAPEX) 0.25 mg tablet Take the day of surgery with a small sip of water lisinopril 2.5 mg tablet Take the day of surgery with a small sip of water insulin lispro (HUMALOG U-100 INSULIN) 100 unit/mL injection Do not take the day of surgery Insulin Volborg, Disposable, (PEN NEEDLE) 29 gauge x 1/2 blood sugar diagnostic (TRUE METRIX GLUCOSE TEST STRIP) test strip gabapentin (NEURONTIN) 600 mg tablet Take the day of surgery with a small sip of water insulin glargine (LANTUS SOLOSTAR U-100 INSULIN) 100 unit/mL (3 mL) Insulin: Do not take the morning of surgery. Take 75% of your usual dose the night before surgery if possible. If not possible, take full dose the night before surgery. cyanocobalamin (VITAMIN B-12) 1,000 mcg tab Stop 7 days before surgery allopurinol (ZYLOPRIM) 100 mg tablet Do not take the day of surgery Acetaminophen 500 mg cap IF needed meclizine (ANTIVERT) 25 mg tab IF needed melatonin 3 mg Stop 7 days before surgery COMPOUNDED PRESCRIPTION Blood-Glucose Meter, Drum-type (ACCU-CHEK COMPACT PLUS CARE) Misc Kit If you start any new medications after today's visit, please contact the surgeon's office. If you are currently using a vbvy-qhs-jeug injectable or oral medication for diabetes or weight loss such as Dulaglutide (Trulicity), Exenatide (Byetta, Bydureon), Liraglutide (Victoza, Saxenda), Semaglutide (Ozempic, Wegovy, Rybelsus), or Tirzepatide (Mounjaro), the medicine should be stopped at least 7 days before surgery. These medicines can cause food to remain in your stomach for a very longtime and increase the risks from surgery and anesthesia. Not stopping the medication for a long enough time may result in your surgery being rescheduled. Blood Thinning Medications: - Stop NSAIDS (Ibuprofen, Advil, Aleve, Motrin, Celebrex, Mobic, etc.) 7 days before surgery, as directed by your surgeon. - Stop Aspirin 7 days before surgery, as directed by your surgeon. - Stop ALL herbal and dietary supplements 7 days before surgery. - You may take Tylenol (Acetaminophen) or any of your pain medications that do not contain aspirin or NSAIDS as needed. Important Reminders: - Candy, mints, and tobacco products are NOT permitted the morning of surgery. - Hearing aids, dentures and glasses may be worn the morning of surgery. - NO jewelry, body piercings, makeup, hairpins or contacts are to be worn the day of surgery. If you develop symptoms such as a fever, cold, or flu, or have other changes to your health within TWO DAYS of scheduled surgery or the morning of surgery, please contact the surgery center above. Personal Belongings: -Please have photo ID and insurance cards. -If you do not have a copy of advance directives on file with us, please bring a copy with you on the day of surgery. - Leave ALL valuables and money at home or with family members. - Please bring high-quality footwear, such as sneakers, to the hospital for ambulating post-surgery. For Outpatient Procedures: - YOU MUST HAVE A RESPONSIBLE MOLD FILLER TAKE YOU HOME. A STOCKROOM SELECTOR OR CABIN FURNISHINGS INSTALLER CANNOT BE MADE A RESPONSIBLE MOLD FILLER. - We recommend that a responsible person stays with you overnight to take care of you. - You cannot stay in a hotel alone after outpatient surgery. You will not be permitted to have yoursurgery, if you do not have someone to take care of you. Arrival Time for Surgery: - The Surgery Center or hospital where you are having surgery will call the afternoon before surgery (or Tuesday for Tuesday surgery) with a scheduled arrival time. - If you have not heard by 4 pm, please contact the surgery center above. Please be aware that emergency situations arise, which may delay or change your surgical time. If this happens, we will notify you as soon as possible and regret any inconvenience. If you already have an Advance Directive, please fax a copy to [phone] or email to for it to be added to your chart. If you do not have an Advance Directive, you can find the appropriate form and more information at [email or web address]. We recommend that youcomplete the Advance Directive form found on the website and bring it with you the day of your surgery. It can be witnessed and scanned into your chart that day. Greg Purdy APRN.CNP documented in this encounterA[facility]03-[facility]25 History and physical note * Greg Purdy APRN.CNP - 12/07/2024 12:36 PM EDT Images from the original note were not included. [facility] HISTORY AND PHYSICAL EXAMINATION SERVICE DATE: 12/07/2024 SERVICE TIME: 8:43 AM PRIMARY CARE PHYSICIAN: Maribel Fay MD Assessment Patient has the following medical conditions which may affect cindy-operative course: Essential hypertension Assessment: controlled on rx Last 14 BP Last 14 Encounter BP Readings: Date: BP: 12/07/2024 112/62 11/19/2024 102/58 09/27/2024 106/58 09/06/2024 112/60 08/17/2024 108/62 07/12/2024 107/56 06/19/2024 114/62 06/06/2024 122/70 05/16/2024 112/60 02/14/2024 104/62 12/23/2023 122/72 11/15/2023 104/74 10/07/2023 118/66 09/23/2023 104/58 Mixed hyperlipidemia Assessment: statin intolerant PAD (peripheral artery disease) (HCC) Assessment: mild, denies claudication Type 2 diabetes mellitus with diabetic peripheral angiopathy without gangrene, with long-term current use of insulin (HCC) Assessment: IDDM Hemoglobin A1C (%) Date Value 11/19/2024 8.8 11/03/2021 7.9 Stage 3b chronic kidney disease (HCC) Assessment: following nephrology Creatinine Date Value Ref Range Status 11/19/2024 1.19 (H) 0.58 - 0.96 mg/dL Final 08/17/2024 1.22 (H) 0.58 - 0.96 mg/dL Final 06/06/2024 1.13 (H) 0.58 - 0.96 mg/dL Final 05/15/2024 1.06 (H) 0.58 - 0.96 mg/dL Final Pernicious anemia Assessment: Hemoglobin (g/dL) Date Value 08/17/2024 11.6 01/16/2021 12.1 Hematocrit (%) Date Value 08/17/2024 35.5 01/16/2021 36.5 WBC (k/uL) Date Value 08/17/2024 6.03 01/16/2021 8.61 Personal history of malignant neoplasm of cervix uteri Assessment: s/p hyster History of lumbar fusion Assessment: hx, controlled on rx Restless leg syndrome Assessment: controlled on rx DM type 2 with diabetic peripheral neuropathy (HCC) Assessment: controlled on rx Gout Assessment: controlled on rx Former smoker Assessment: 1ppd/21 years, quit 1973, denies asthma or COPD, lungs CTA, pulse ox 94% on RA BMI 30.0-30.9,adult Assessment: Body mass index is 30.04 kg/m . ANESTHESIA FINDINGS: Intubation History: No history of difficult intubation Significant Anesthesia Considerations: none Airway History: No history of difficult airway Bis[place] Activity Status Index: METS: Climb a flight of stairs or walk up a hill (5.50 METs) DASI Score: 5.5 Patient denies any chest pain or undue shortness of breath with the above physical activity. Clinical Frailty Scale: 3. Well, with treated comorbid disease STOP-Bang Score: Patient over 50 years old Denies snoring loudly Denies feeling tired, fatigued, or sleepy during the daytime Has not been observed to stop breathing or choking/gasping during sleep Denies having high blood pressure BMI less than or equal to 35 kg/m^2 Does not have a large neck Non-male patient STOP-Bang Score: 1 [id number] Score: Age: >=75 Sex: female CHF history: No Hypertension history: Yes Stroke/TIA/thromboembolism history: No Vascular disease history: Yes Diabetes history: Yes [id number] Score: 6 ARISCAT Score: Age: >80 Preoperative SpO2: 91-95% Respiratory infection in the last month: No Preoperative anemia: No Surgical incision: peripheral Duration of surgery: <2 hrs Emergency procedure: No ARISCAT Score: 24 I - PHYSICAL EVALUATION AIRWAY Patient intubated: No. Tracheostomy tube not present Mallampati: III. TM distance: >3 FB. Neck ROM: full ROM without neurological symptoms. Mouth opening: adequate. Short neck: no. Thick neck: no Cantrell present: no Lip Bite Test: I Microretrognathia/Micronagthia/Recessed Chin: No DENTAL Dental findings: teeth intact. Dentures, upper: complete. II - ANESTHESIA PLAN Anesthetic Plan: other Beta Mee Monitoring Plan Post Procedure Analgesic Plan Prepared for Surgery: optimally prepared for surgery. CONSULTS: Patient does not require consults for optimization at this time Planned Anesthetic: other anesthesia choice The Following Tests/Procedures Have Been Initiated: No orders of the defined types were placed in this encounter. REASON FOR VISIT: Charlette Farmer is a 89 year old female who is scheduled for Procedure(s): DECOMPRESSION NERVE MEDIAN CARPAL TUNNEL (Left) at the request of Dr. Savana De Oliveira for consultation. My final recommendation will be communicated back to the requesting physician by way of shared medical record or letter. Subjective The patient has the following: COVID-19 Immunization Status Upcoming Covid-19 Vaccine ( season) Next due on 01/01/2025 07/03/2024 Imm Admin: COVID-19 vaccine, age 12+ yr (MODERNA) 12/23/2023 Imm Admin: COVID-19 vaccine, age 12+ yr, season (PFIZER-BIONTECH) 11/15/2023 Postponed until 11/15/2024 by Maribel Fay MD (Declined at this time) Only the first 3 history entries have been loaded, but more history exists. CHIEF COMPLAINT: Pre-op exam HPI: Charlette Farmer is a 89 year old seen for PAC due to scheduled above surgery because of numbness and tingling in left hand. 11/30/2024, Dr. Savana De Oliveira Charlette Farmer is a 89 year old female who presents today for follow up office visit. Patient presents with: Left Hand - Established Patient, Pain, Numbness History of Present Illness PAIN EVALUATION 11/30/2024 1046 Pain Level: 1 Pain Location: Hand-Left Description: Numbness Duration Amount of Time: 1 Duration Units: Years Frequency: Intermittent HPI: Charlette Farmer is a 89 year old female for a follow up visit left hand numbness. Patient has been experiencing numbness into first 3 digits for past year. She states that it is starting to interfere with activities she enjoys. Previous right CTR in May 2023. Pain history is noted as above. Is there any overall improvement in your condition? No Any new injury, since being seen last: No REVIEW OF SYSTEMS: General: No weight loss, malaise or fevers. 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 No neurological symptoms or problems. Respiratory: +former smoker. No history of current cough or dyspnea, or pneumonia in the past 6 weeks. No history of respiratory/pulmonary symptoms or problems. Cardiovascular: Positive for: hyperlipidemia (statin intolerant) and hypertension (on rx) Negative for: abdominal aortic aneurysm, AICD/PPM, angina, anticoagulation therapy, arrhythmia, atrial fibrillation, CAD, chest pain, CHF, congenital heart defect, DVT/PE, recent WI, murmur/valvular heart disease, PTCA, PVD, open heart surgery and valve surgery. GI: No history of GI symptoms or problems. No history of esophageal varices, recent ascites, or ETOH greater than 2 drinks per day. : Positive for: renal failure. Patient's renal failure is chronic. Negative for: urinary incontinence, nephrolithiasis and urinary tract infection. 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 Endocrine: Positive for: diabetes mellitus. Patient's diabetes mellitus is controlled by insulin. Negative for: hypothyroidism. Hematology: No history of bleeding or clotting disorder. Patient is not taking anti-coagulation or platelet medications. No history of hematological symptoms or problems. Oncology: Uterine CA s/p hyster Psych: No history of psychiatric symptoms or problems. Musculoskeletal: See HPI. Hx lumbar fusion Skin: Negative for lesions, rash and itching. Implanted Devices: No implanted devices. PAST MEDICAL HISTORY Diagnosis Date Arthritis Benign neoplasm of colon tubular adenoma Carpal tunnel syndrome, right Chronic kidney disease, stage 3 (HCC) Diverticulitis 10/10/2020 Diverticulosis of colon (without mention of hemorrhage) Gout History of colonic polyps 2023, hyperplastic and tubular adenoma History of transfusion Internal hemorrhoids without mention of complication Lumbago Malignant neoplasm of corpus uteri, except isthmus (HCC) 1996 Uterine cancer Other and unspecified hyperlipidemia PAD (peripheral artery disease) (HCC) 2013 Mild LLE Pernicious anemia Restless leg syndrome Rotator cuff tendinitis left Trigger finger, right middle finger Seen by Dr. Burns 2015 Type II or unspecified type diabetes mellitus without mention of complication, uncontrolled Unspecified essential hypertension PAST SURGICAL HISTORY Procedure Laterality Date ABDOMINAL SURGERY HX APPENDECTOMY 1952 BACK SURGERY HX CHOLECYSTECTOMY 11/28/2011 COLONOSCOPY 07/12/2024 COLONOSCOPY FLX DX W/COLLJ SPEC WHEN PFRMD 2001 out of state sigmoidoscopy COLONOSCOPY FLX DX W/COLLJ SPEC WHEN PFRMD 10/22/2013 Colonoscopy COLONOSCOPY GEN ANES 01/07/2021 Dr. Phillips, Polyps. repeat in 3 years. COLONOSCOPY W/BIOPSY SINGLE/MULTIPLE 11/12/2008 DILATION & CURETTAGE DX&/THER NONOBSTETRIC 1965 Dilation & curettage EGD 01/07/2021 EGD 07/12/2024 EYE SURGERY HX LAMINECTOMY W/O FFD 09/20 VERT SEG LUMBAR 1971 Laminectomy, lumbar, fusion PAST SURGICAL HISTORY OF Left 09/01/2017 Trigger finger release of left ringer finger REVISE MEDIAN N/CARPAL TUNNEL SURG Right 05/31/2023 TONSILLECTOMY HX TUBAL LIGATION HX VAGINAL HYSTERECTOMY VAGINAL HYSTERECTOMY UTERUS 250 GM/< 1996 Hysterectomy, vaginal FAMILY HISTORY Problem Relation Age of Onset Cancer Mother breast, lung cancer was heavy smoker Diabetes Maternal Grandmother Diabetes Maternal Grandfather other (no siblings) Maternal Grandfather Social History Tobacco Use Smoking status: Former Current packs/day: 0.00 Average packs/day: 1 pack/day for 21.0 years (21.0 ttl pk-yrs) Types: Cigarettes Start date: [birth year]/23/1952 Quit date: 09/19/1973 Years since quittin.2 Smokeless tobacco: Never Vaping Use Vaping status: Never Used Substance Use Topics Alcohol use: Yes Comment: occas glass of wine Drug use: No Prior to Admission medications as of 12/07/24 1241 Medication Sig Last Dose Taking lancets (TRUEPLUS LANCETS) 33 gauge Use with blood glucose test two times a day. Insulin Dep? Yes Yes pramipexole (MIRAPEX) 0.25 mg tablet Take 1 tablet by mouth daily at bedtime. Yes lisinopril 2.5 mg tablet Take 1 tablet by mouth once daily. Yes insulin lispro (HUMALOG U-100 INSULIN) 100 unit/mL injection Inject 6 Units subcutaneously three times a day before meals. Yes Insulin Volborg, Disposable, (PEN NEEDLE) 29 gauge x 1/2 One needle three times daily. Dx: 250.02 Insulin: yes Yes blood sugar diagnostic (TRUE METRIX GLUCOSE TEST STRIP) test strip Test 3 times daily DX:250.02 Insulin: Yes Yes gabapentin (NEURONTIN) 600 mg tablet Take 1 tablet by mouth two times a day for 90 days. Yes insulin glargine (LANTUS SOLOSTAR U-100 INSULIN) 100 unit/mL (3 mL) Inject 18 units subcutaneously at bedtime Yes cyanocobalamin (VITAMIN B-12) 1,000 mcg tab Take one tablet every other day Dx: pernicious anemia Yes allopurinol (ZYLOPRIM) 100 mg tablet Take 1 tablet by mouth two times a day. Yes Acetaminophen 500 mg cap Take 2 capsules by mouth two times a day as needed for pain. Reports will utilize 1 500mg tab 1-2 times in between the 1000 mg doses Yes meclizine (ANTIVERT) 25 mg tab Take 25 mg by mouth as needed. Yes melatonin 3 mg Take by mouth daily at bedtime. Yes COMPOUNDED PRESCRIPTION Cock up wrist splint, right Medium. To be worn nightly to prevent carpal tunnel symptoms. Dx: carpal tunnel right Yes Blood-Glucose Meter, Drum-type (ACCU-CHEK COMPACT PLUS CARE) [place] Kit 1 Each. Accu-Check Compact Plus Meter Diagnosis: Diabetes Mellitus Yes No medication comments found. ALLERGIES Allergen Reactions Lipitor [Atorvastat* Intolerance myalgia Simvastatin Intolerance myalgia Objective PHYSICAL EXAM: General: alert and oriented (x3), healthy appearance and obese. Pertinent negatives noted - not distressed. Skin: normal color, no rash or lesions. HEENT: EOM intact and pupils equal round. Pertinent negatives noted - no carotid bruit. Cardiovascular: regular rate and rhythm, normal S1 and S2, no rub, murmurs, or gallop. Respiratory: normal breath sounds, no wheezes or crackles. No chest wall deformity or tenderness. Abdomen: soft. Pertinent negatives noted - not tender. Extremities: no deformity, no edema or tenderness, no joint swelling or clubbing. Neurological: normal cognition and motor skills. Gait normal. No weakness or sensory deficit. PAIN ASSESSMENT: VITALS: BP 112/62 Pulse 75 Temp (Src) 97.5 (Temporal) Resp 14 Ht 5' 1 (1.55m) Wt 159 lb (72.1kg) SpO2 94% BMI 30.06 kg/(m^2). Diagnostic tests reviewed for today's visit: Lab Value Units Date High Low HB 11.6 g/dL 08/17/2024 15.5 11.5 HCT 35.5 % 08/17/2024 46.0 36.0 WBC 6.03 k/uL 08/17/2024 11.00 3.70 PLT 207 k/uL 08/17/2024 400 150 NA 138 mmol/L 11/19/2024 144 136 K 4.0 mmol/L 11/19/2024 5.1 3.7 GLUC 100 mg/dL 11/19/2024 99 74 BUN 25 mg/dL 11/19/2024 21 7 CREAT 1.19 mg/dL 11/19/2024 0.96 0.58 PTSEC No results within date range. INR No results within date range. APTT No results within date range. ALT 12 U/L 11/19/2024 38 7 AST 23 U/L 11/19/2024 35 13 TBILI 0.4 mg/dL 11/19/2024 1.3 0.2 TSH No results within date range. Lab Value Units Date High Low HCGQT No results within date range. UHCG No results within date range. HCG, BODY* No results within date range. Lab Value Units Date High Low ABORHD No results within date range. ABSCREEN No results within date range. Hemoglobin A1C (%) Date Value 11/19/2024 8.8 08/17/2024 8.8 05/15/2024 8.3 12/20/2023 6.5 08/15/2023 8.0 11/03/2021 7.9 07/22/2021 7.8 01/19/2021 8.3 10/09/2020 8.6 07/18/2020 9.5 No results found for this or any previous visit (from the past 8760 hours). No results found for this or any previous visit (from the past 83163 hours). Instructions Given to Patient: Instructions located in the after visit summary. Patient given verbal and written preop instructions and voices comprehension and compliance. SIGNATURE: Greg Purdy APRN.CNP PATIENT NAME: Charlette Farmer DATE: December 07, 2024 TIME: 12:36 PM PAGER/CONTACT #: [facility]03-21-2025 History and physical note* Greg Purdy APRN.CNP - 12/07/2024 12:36 PM EDT Images from the original note were not included. [facility] HISTORY AND PHYSICAL EXAMINATION SERVICE DATE: 12/07/2024 SERVICE TIME: 8:43 AM PRIMARY CARE PHYSICIAN: Maribel Fay MD Assessment Patient has the following medical conditions which may affect cindy-operative course: Essential hypertension Assessment: controlled on rx Last 14 BP Last 14 Encounter BP Readings: Date: BP: 12/07/2024 112/62 11/19/2024 102/58 09/27/2024 106/58 09/06/2024 112/60 08/17/2024 108/62 07/12/2024 107/56 06/19/2024 114/62 06/06/2024 122/70 05/16/2024 112/60 02/14/2024 104/62 12/23/2023 122/72 11/15/2023 104/74 10/07/2023 118/66 09/23/2023 104/58 Mixed hyperlipidemia Assessment: statin intolerant PAD (peripheral artery disease) (HCC) Assessment: mild, denies claudication Type 2 diabetes mellitus with diabetic peripheral angiopathy without gangrene, with long-term current use of insulin (HCC) Assessment: IDDM Hemoglobin A1C (%) Date Value 11/19/2024 8.8 11/03/2021 7.9 Stage 3b chronic kidney disease (HCC) Assessment: following nephrology Creatinine Date Value Ref Range Status 11/19/2024 1.19 (H) 0.58 - 0.96 mg/dL Final 08/17/2024 1.22 (H) 0.58 - 0.96 mg/dL Final 06/06/2024 1.13 (H) 0.58 - 0.96 mg/dL Final 05/15/2024 1.06 (H) 0.58 - 0.96 mg/dL Final Pernicious anemia Assessment: Hemoglobin (g/dL) Date Value 08/17/2024 11.6 01/16/2021 12.1 Hematocrit (%) Date Value 08/17/2024 35.5 01/16/2021 36.5 WBC (k/uL) Date Value 08/17/2024 6.03 01/16/2021 8.61 Personal history of malignant neoplasm of cervix uteri Assessment: s/p hyster History of lumbar fusion Assessment: hx, controlled on rx Restless leg syndrome Assessment: controlled on rx DM type 2 with diabetic peripheral neuropathy (HCC) Assessment: controlled on rx Gout Assessment: controlled on rx Former smoker Assessment: 1ppd/21 years, quit 1973, denies asthma or COPD, lungs CTA, pulse ox 94% on RA BMI 30.0-30.9,adult Assessment: Body mass index is 30.04 kg/m . ANESTHESIA FINDINGS: Intubation History: No history of difficult intubation Significant Anesthesia Considerations: none Airway History: No history of difficult airway Biswas Activity Status Index: METS: Climb a flight of stairs or walk up a hill (5.50 METs) DASI Score: 5.5 Patient denies any chest pain or undue shortness of breath with the above physical activity. Clinical Frailty Scale: 3. Well, with treated comorbid disease STOP-Bang Score: Patient over 50 years old Denies snoring loudly Denies feeling tired, fatigued, or sleepy during the daytime Has not been observed to stop breathing or choking/gasping during sleep Denies having high blood pressure BMI less than or equal to 35 kg/m^2 Does not have a large neck Non-male patient STOP-Bang Score: 1 [id number] Score: Age: >=75 Sex: female CHF history: No Hypertension history: Yes Stroke/TIA/thromboembolism history: No Vascular disease history: Yes Diabetes history: Yes [id number] Score: 6 ARISCAT Score: Age: >80 Preoperative SpO2: 91-95% Respiratory infection in the last month: No Preoperative anemia: No Surgical incision: peripheral Duration of surgery: <2 hrs Emergency procedure: No ARISCAT Score: 24 I - PHYSICAL EVALUATION AIRWAY Patient intubated: No. Tracheostomy tube not present Mallampati: III. TM distance: >3 FB. Neck ROM: full ROM without neurological symptoms. Mouth opening: adequate. Short neck: no. Thick neck: no Cantrell present: no Lip Bite Test: I Microretrognathia/Micronagthia/Recessed Chin: No DENTAL Dental findings: teeth intact. Dentures, upper: complete. II - ANESTHESIA PLAN Anesthetic Plan: other Beta Mee Monitoring Plan Post Procedure Analgesic Plan Prepared for Surgery: optimally prepared for surgery. CONSULTS: Patient does not require consults for optimization at this time Planned Anesthetic: other anesthesia choice The Following Tests/Procedures Have Been Initiated: No orders of the defined types were placed in this encounter. REASON FOR VISIT: Charlette Farmer is a 89 year old female who is scheduled for Procedure(s): DECOMPRESSION NERVE MEDIAN CARPAL TUNNEL (Left) at the request of Dr. Savana De Oliveira for consultation. My final recommendation will be communicated back to the requesting physician by way of shared medical record or letter. Subjective The patient has the following: COVID-19 Immunization Status Upcoming Covid-19 Vaccine ( season) Next due on 01/01/2025 07/03/2024 Imm Admin: COVID-19 vaccine, age 12+ yr (MODERNA) 12/23/2023 Imm Admin: COVID-19 vaccine, age 12+ yr, season (PFIZER-BIONTCreatorBox) 11/15/2023 Postponed until 11/15/2024 by Maribel Fay MD (Declined at this time) Only the first 3 history entries have been loaded, but more history exists. CHIEF COMPLAINT: Pre-op exam HPI: Charlette Farmer is a 89 year old seen for PAC due to scheduled above surgery because of numbness and tingling in left hand. 11/30/2024, Dr. Savana De Oliveira Charlette Farmer is a 89 year old female who presents today for follow up office visit. Patient presents with: Left Hand - Established Patient, Pain, Numbness History of Present Illness PAIN EVALUATION 11/30/2024 1046 Pain Level: 1 Pain Location: Hand-Left Description: Numbness Duration Amount of Time: 1 Duration Units: Years Frequency: Intermittent HPI: Charlette Farmer is a 89 year old female for a follow up visit left hand numbness. Patient has been experiencing numbness into first 3 digits for past year. She states that it is starting to interfere with activities she enjoys. Previous right CTR in May 2023. Pain history is noted as above. Is there any overall improvement in your condition? No Any new injury, since being seen last: No REVIEW OF SYSTEMS: General: No weight loss, malaise or fevers. 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 No neurological symptoms or problems. Respiratory: +former smoker. No history of current cough or dyspnea, or pneumonia in the past 6 weeks. No history of respiratory/pulmonary symptoms or problems. Cardiovascular: Positive for: hyperlipidemia (statin intolerant) and hypertension (on rx) Negative for: abdominal aortic aneurysm, AICD/PPM, angina, anticoagulation therapy, arrhythmia, atrial fibrillation, CAD, chest pain, CHF, congenital heart defect, DVT/PE, recent WI, murmur/valvular heart disease, PTCA, PVD, open heart surgery and valve surgery. GI: No history of GI symptoms or problems. No history of esophageal varices, recent ascites, or ETOH greater than 2 drinks per day. : Positive for: renal failure. Patient's renal failure is chronic. Negative for: urinary incontinence, nephrolithiasis and urinary tract infection. 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 Endocrine: Positive for: diabetes mellitus. Patient's diabetes mellitus is controlled by insulin. Negative for: hypothyroidism. Hematology: No history of bleeding or clotting disorder. Patient is not taking anti-coagulation or platelet medications. No history of hematological symptoms or problems. Oncology: Uterine CA s/p hyster Psych: No history of psychiatric symptoms or problems. Musculoskeletal: See HPI. Hx lumbar fusion Skin: Negative for lesions, rash and itching. Implanted Devices: No implanted devices. PAST MEDICAL HISTORY Diagnosis Date Arthritis Benign neoplasm of colon tubular adenoma Carpal tunnel syndrome, right Chronic kidney disease, stage 3 (HCC) Diverticulitis 10/10/2020 Diverticulosis of colon (without mention of hemorrhage) Gout History of colonic polyps 2023, hyperplastic and tubular adenoma History of transfusion Internal hemorrhoids without mention of complication Lumbago Malignant neoplasm of corpus uteri, except isthmus (HCC) 1996 Uterine cancer Other and unspecified hyperlipidemia PAD (peripheral artery disease) (HCC) 2013 Mild LLE Pernicious anemia Restless leg syndrome Rotator cuff tendinitis left Trigger finger, right middle finger Seen by Dr. Burns 2015 Type II or unspecified type diabetes mellitus without mention of complication, uncontrolled Unspecified essential hypertension PAST SURGICAL HISTORY Procedure Laterality Date ABDOMINAL SURGERY HX APPENDECTOMY 1952 BACK SURGERY HX CHOLECYSTECTOMY 11/28/2011 COLONOSCOPY 07/12/2024 COLONOSCOPY FLX DX W/COLLJ SPEC WHEN PFRMD 2001 out of state sigmoidoscopy COLONOSCOPY FLX DX W/COLLJ SPEC WHEN PFRMD 10/22/2013 Colonoscopy COLONOSCOPY GEN ANES 01/07/2021 Dr. Phillips, Polyps. repeat in 3 years. COLONOSCOPY W/BIOPSY SINGLE/MULTIPLE 11/12/2008 DILATION & CURETTAGE DX&/THER NONOBSTETRIC 1965 Dilation & curettage EGD 01/07/2021 EGD 07/12/2024 EYE SURGERY HX LAMINECTOMY W/O FFD 1/2 VERT SEG LUMBAR 1971 Laminectomy, lumbar, fusion PAST SURGICAL HISTORY OF Left 09/01/2017 Trigger finger release of left ringer finger REVISE MEDIAN N/CARPAL TUNNEL SURG Right 05/31/2023 TONSILLECTOMY HX TUBAL LIGATION HX VAGINAL HYSTERECTOMY VAGINAL HYSTERECTOMY UTERUS 250 GM/< 1996 Hysterectomy, vaginal FAMILY HISTORY Problem Relation Age of Onset Cancer Mother breast, lung cancer was heavy smoker Diabetes Maternal Grandmother Diabetes Maternal Grandfather other (no siblings) Maternal Grandfather Social History Tobacco Use Smoking status: Former Current packs/day: 0.00 Average packs/day: 1 pack/day for 21.0 years (21.0 ttl pk-yrs) Types: Cigarettes Start date: 11/23/1952 Quit date: 09/19/1973 Years since quittin.2 Smokeless tobacco: Never Vaping Use Vaping status: Never Used Substance Use Topics Alcohol use: Yes Comment: occas glass of wine Drug use: No Prior to Admission medications as of 12/07/24 1241 Medication Sig Last Dose Taking lancets (TRUEPLUS LANCETS) 33 gauge Use with blood glucose test two times a day. Insulin Dep? Yes Yes pramipexole (MIRAPEX) 0.25 mg tablet Take 1 tablet by mouth daily at bedtime. Yes lisinopril 2.5 mg tablet Take 1 tablet by mouth once daily. Yes insulin lispro (HUMALOG U-100 INSULIN) 100 unit/mL injection Inject 6 Units subcutaneously three times a day before meals. Yes Insulin Volborg, Disposable, (PEN NEEDLE) 29 gauge x 1/2 One needle three times daily. Dx: 250.02 Insulin: yes Yes blood sugar diagnostic (TRUE METRIX GLUCOSE TEST STRIP) test strip Test 3 times daily DX:250.02 Insulin: Yes Yes gabapentin (NEURONTIN) 600 mg tablet Take 1 tablet by mouth two times a day for 90 days. Yes insulin glargine (LANTUS SOLOSTAR U-100 INSULIN) 100 unit/mL (3 mL) Inject 18 units subcutaneously at bedtime Yes cyanocobalamin (VITAMIN B-12) 1,000 mcg tab Take one tablet every other day Dx: pernicious anemia Yes allopurinol (ZYLOPRIM) 100 mg tablet Take 1 tablet by mouth two times a day. Yes Acetaminophen 500 mg cap Take 2 capsules by mouth two times a day as needed for pain. Reports will utilize 1 500mg tab 1-2 times in between the 1000 mg doses Yes meclizine (ANTIVERT) 25 mg tab Take 25 mg by mouth as needed. Yes melatonin 3 mg Take by mouth daily at bedtime. Yes COMPOUNDED PRESCRIPTION Cock up wrist splint, right Medium. To be worn nightly to prevent carpal tunnel symptoms. Dx: carpal tunnel right Yes Blood-Glucose Meter, Drum-type (ACCU-CHEK COMPACT PLUS CARE) [place] Kit 1 Each. Accu-Check Compact Plus Meter Diagnosis: Diabetes Mellitus Yes No medication comments found. ALLERGIES Allergen Reactions Lipitor [Atorvastat* Intolerance myalgia Simvastatin Intolerance myalgia Objective PHYSICAL EXAM: General: alert and oriented (x3), healthy appearance and obese. Pertinent negatives noted - not distressed. Skin: normal color, no rash or lesions. HEENT: EOM intact and pupils equal round. Pertinent negatives noted - no carotid bruit. Cardiovascular: regular rate and rhythm, normal S1 and S2, no rub, murmurs, or gallop. Respiratory: normal breath sounds, no wheezes or crackles. No chest wall deformity or tenderness. Abdomen: soft. Pertinent negatives noted - not tender. Extremities: no deformity, no edema or tenderness, no joint swelling or clubbing. Neurological: normal cognition and motor skills. Gait normal. No weakness or sensory deficit. PAIN ASSESSMENT: VITALS: BP 112/62 Pulse 75 Temp (Src) 97.5 (Temporal) Resp 14 Ht 5' 1 (1.55m) Wt 159 lb (72.1kg) SpO2 94% BMI 30.06 kg/(m^2). Diagnostic tests reviewed for today's visit: Lab Value Units Date High Low HB 11.6 g/dL 08/17/2024 15.5 11.5 HCT 35.5 % 08/17/2024 46.0 36.0 WBC 6.03 k/uL 08/17/2024 11.00 3.70 PLT 207 k/uL 08/17/2024 400 150 NA 138 mmol/L 11/19/2024 144 136 K 4.0 mmol/L 11/19/2024 5.1 3.7 GLUC 100 mg/dL 11/19/2024 99 74 BUN 25 mg/dL 11/19/2024 21 7 CREAT 1.19 mg/dL 11/19/2024 0.96 0.58 PTSEC No results within date range. INR No results within date range. APTT No results within date range. ALT 12 U/L 11/19/2024 38 7 AST 23 U/L 11/19/2024 35 13 TBILI 0.4 mg/dL 11/19/2024 1.3 0.2 TSH No results within date range. Lab Value Units Date High Low HCGQT No results within date range. UHCG No results within date range. HCG, BODY* No results within date range. Lab Value Units Date High Low ABORHD No results within date range. ABSCREEN No results within date range. Hemoglobin A1C (%) Date Value 11/19/2024 8.8 08/17/2024 8.8 05/15/2024 8.3 12/20/2023 6.5 08/15/2023 8.0 11/03/2021 7.9 07/22/2021 7.8 01/19/2021 8.3 10/09/2020 8.6 07/18/2020 9.5 No results found for this or any previous visit (from the past 8760 hours). No results found for this or any previous visit (from the past 58081 hours). Instructions Given to Patient: Instructions located in the after visit summary. Patient given verbal and written preop instructions and voices comprehension and compliance. SIGNATURE: Greg Purdy APRN.CNP PATIENT NAME: Charlette Farmer DATE: December 07, 2024 TIME: 12:36 PM PAGER/CONTACT #: [facility] Telephone encounter Note * Telephone Encounter - Marysol Guzmán RN - 12/04/2024 4:29 PM EDT The patient has been identified by name and date of : Yes Caregiver verified no other encounters exist for this prescription request: Yes Caregiver confirmed with patient/requestor that no other refills are due, in the near future, with this provider at this time: Yes The last office visit in the department: 11/19/2024 Does the patient have a future office visit with this provider/department: Yes 12/20/2024 Requested Prescriptions Pending Prescriptions Disp Refills lancets (TRUEPLUS LANCETS) 33 gauge 200 Each 3 Sig: Use with blood glucose test two times a day. Insulin Dep? Yes pramipexole (MIRAPEX) 0.25 mg tablet 90 tablet 3 Sig: Take 1 tablet by mouth daily at bedtime. lisinopril 2.5 mg tablet 90 tablet 1 Sig: Take 1 tablet by mouth once daily. Marysol Guzmán RN December 04, 2024 4:36 PM [facility]03-18-2025 Miscellaneous Notes* Telephone Encounter - Marysol Guzmán RN - 12/04/2024 4:29 PM EDT The patient has been identified by name and date of : Yes Caregiver verified no other encounters exist for this prescription request: Yes Caregiver confirmed with patient/requestor that no other refills are due, in the near future, with this provider at this time: Yes The last office visit in the department: 11/19/2024 Does the patient have a future office visit with this provider/department: Yes 12/20/2024 Requested Prescriptions Pending Prescriptions Disp Refills lancets (TRUEPLUS LANCETS) 33 gauge 200 Each 3 Sig: Use with blood glucose test two times a day. Insulin Dep? Yes pramipexole (MIRAPEX) 0.25 mg tablet 90 tablet 3 Sig: Take 1 tablet by mouth daily at bedtime. lisinopril 2.5 mg tablet 90 tablet 1 Sig: Take 1 tablet by mouth once daily. Marysol Guzmán RN December 04, 2024 4:36 PM documented in this encounterA[facility] NoteHNO ID: [id number] Author: SAVANA DE OLIVEIRA, DO Service: ? Author Type: Physician Type: Progress Notes Filed: 12/04/2024 08:38 Note Text: Follow Up Visit Chief Complaint Charlette Farmer is a 89 year old female who presents today for follow up office visit. Patient presents with: Left Hand - Established Patient, Pain, Numbness History of Present Illness PAIN EVALUATION 11/30/2024 1046 Pain Level: 1 Pain Location: Hand-Left Description: Numbness Duration Amount of Time: 1 Duration Units: Years Frequency: Intermittent HPI: Charlette Farmer is a 89 year old female for a follow up visit left hand numbness. Patient has been experiencing numbness into first 3 digits for past year. She states that it is starting to interfere with activities she enjoys. Previous right CTR in May 2023. Pain history is noted as above. Is there any overall improvement in your condition? No Any new injury, since being seen last: No REVIEW OF SYMPTOMS: Patient did not have, and does not currently have, any weight loss, malaise, fever, chills, headache, chest pain, chest pressure, palpitations, cough, shortness of breath, orthopnea, paroxsymal nocturnal dyspnea, nausea, vomiting, diarrhea, constipation, melena, hematochezia, urinary difficulties, prolonged bleeding, easily bruising, heat or cold intolerance, new onset joint pain or swelling, new onset extremity weakness or numbness, new onset auditory or visual disturbances, lightheadedness, dizziness, partial loss of consciousness or full loss of consciousness. Current Outpatient Medications Medication Sig - insulin lispro (HUMALOG U-100 INSULIN) 100 unit/mL injection Inject 6 Units subcutaneously three times a day before meals. - fluconazole (DIFLUCAN) 150 mg tablet Take 1 tablet by mouth one time a week for 4 doses. - rosuvastatin (CRESTOR) 20 mg tablet Take 1 tablet by mouth daily at bedtime. - Insulin Volborg, Disposable, (PEN NEEDLE) 29 gauge x 1/2 One needle three times daily. Dx: 250.02 Insulin: yes - blood sugar diagnostic (TRUE METRIX GLUCOSE TEST STRIP) test strip Test 3 times daily DX:250.02 Insulin: Yes - gabapentin (NEURONTIN) 600 mg tablet Take 1 tablet by mouth two times a day for 90 days. - insulin glargine (LANTUS SOLOSTAR U-100 INSULIN) 100 unit/mL (3 mL) Inject 18 units subcutaneously at bedtime - cyanocobalamin (VITAMIN B-12) 1,000 mcg tab Take one tablet every other day Dx: pernicious anemia - allopurinol (ZYLOPRIM) 100 mg tablet Take 1 tablet by mouth two times a day. - lisinopril 2.5 mg tablet Take 1 tablet by mouth once daily. - pramipexole (MIRAPEX) 0.25 mg tablet Take 1 tablet by mouth daily at bedtime. - Lancets lancets Pt requests Truedraw lancets. Test blood sugar(s) 1 times daily. Dx: Other DM Code 250.02 Insulin: Yes - Lancets (ACCU-CHEK SOFTCLIX LANCETS) lancets Use Three times daily to check blood sugar - Acetaminophen 500 mg cap Take 2 capsules by mouth two times a day as needed for pain. Reports will utilize 1 500mg tab 1-2 times in between the 1000 mg doses - Miscellaneous Medical Supply (BLOOD PRESSURE CUFF) 1 Each once daily. - ondansetron (ZOFRAN) 4 mg tablet Take 4 mg by mouth every 8 hours as needed for nausea/vomiting. - meclizine (ANTIVERT) 25 mg tab Take 25 mg by mouth three times a day. - cephALEXin (KEFLEX) 500 mg capsule Take 500 mg by mouth three times a day. - ammonium lactate (LAC-HYDRIN) 12 % lotion Apply 1 application to affected area as needed for Dry Skin. - melatonin 3 mg Take by mouth daily at bedtime. - COMPOUNDED PRESCRIPTION Cock up wrist splint, right Medium. To be worn nightly to prevent carpal tunnel symptoms. Dx: carpal tunnel right - Blood-Glucose Meter, Drum-type (ACCU-CHEK COMPACT PLUS CARE) Misc Kit 1 Each. Accu-Check Compact Plus Meter Diagnosis: Diabetes Mellitus - ASPIRIN 81 MG TAB Take one (1) tablet daily . No current facility-administered medications for this visit. Physical Exam Vitals: There were no vitals taken for this visit. Psych: Pleasant, good affect and mood General Appearance: Well appearing, alert, in no acute distress, well-hydrated, well nourished.. Skin: Skin color, texture, turgor normal, no suspicious rashes or lesions. Peripheral Pulses: Normal. Neurologic: Gait normal. Reflexes normal and symmetric. Sensation grossly intact.. Lymph Nodes: No cervical lymphadenopathy, No supraclavicular lymphadenopathy, No axillary lymphadenopathy., and No inguinal lymphadenopathy.. Respiratory: No recent pulmonary infection, hemoptysis, chronic cough, or shortness of breath at rest Rheumatologic: Joint deformities: left hand numbness Right Hand Exam Right hand exam is normal. Tenderness The patient is experiencing no tenderness. Range of Motion The patient has normal right wrist ROM. Wrist Extension: normal Flexion: normal Pronation: normal Supination: normal Muscle Strength The patient has normal r (more content not included)...[facility] [place]03-14-2025 History of Present illness Narrative* Savana De Oliveira DO - 11/30/2024 10:45 AM EDT Follow Up Visit Chief Complaint Charlette Farmer is a 89 year old female who presents today for follow up office visit. Patient presents with: Left Hand - Established Patient, Pain, Numbness History of Present Illness PAIN EVALUATION 11/30/2024 1046 Pain Level: 1 Pain Location: Hand-Left Description: Numbness Duration Amount of Time: 1 Duration Units: Years Frequency: Intermittent HPI: Charlette Farmer is a 89 year old female for a follow up visit left hand numbness. Patient has been experiencing numbness into first 3 digits for past year. She states that it is starting to interfere with activities she enjoys. Previous right CTR in May 2023. Pain history is noted as above. Is there any overall improvement in your condition? No Any new injury, since being seen last: No REVIEW OF SYMPTOMS: Patient did not have, and does not currently have, any weight loss, malaise, fever, chills, headache, chest pain, chest pressure, palpitations, cough, shortness of breath, orthopnea, paroxsymal nocturnal dyspnea, nausea, vomiting, diarrhea, constipation, melena, hematochezia, urinary difficulties, prolonged bleeding, easily bruising, heat or cold intolerance, new onset joint pain or swelling, newonset extremity weakness or numbness, new onset auditory or visual disturbances, lightheadedness, dizziness, partial loss of consciousness or full loss of consciousness. Current Outpatient Medications Medication Sig insulin lispro (HUMALOG U-100 INSULIN) 100 unit/mL injection Inject 6 Units subcutaneously three times a day before meals. fluconazole (DIFLUCAN) 150 mg tablet Take 1 tablet by mouth one time a week for 4 doses. rosuvastatin (CRESTOR) 20 mg tablet Take 1 tablet by mouth daily at bedtime. Insulin Volborg, Disposable, (PEN NEEDLE) 29 gauge x 1/2 One needle three times daily. Dx: 250.02 Insulin: yes blood sugar diagnostic (TRUE METRIX GLUCOSE TEST STRIP) test strip Test 3 times daily DX:250.02 Insulin: Yes gabapentin (NEURONTIN) 600 mg tablet Take 1 tablet by mouth two times a day for 90 days. insulin glargine (LANTUS SOLOSTAR U-100 INSULIN) 100 unit/mL (3 mL) Inject 18 units subcutaneously at bedtime cyanocobalamin (VITAMIN B-12) 1,000 mcg tab Take one tablet every other day Dx: pernicious anemia allopurinol (ZYLOPRIM) 100 mg tablet Take 1 tablet by mouth two times a day. lisinopril 2.5 mg tablet Take 1 tablet by mouth once daily. pramipexole (MIRAPEX) 0.25 mg tablet Take 1 tablet by mouth daily at bedtime. Lancets lancets Pt requests Truedraw lancets. Test blood sugar(s) 1 times daily. Dx: Other DM Code 250.02 Insulin: Yes Lancets (ACCU-CHEK SOFTCLIX LANCETS) lancets Use Three times daily to check blood sugar Acetaminophen 500 mg cap Take 2 capsules by mouth two times a day as needed for pain. Reports will utilize 1 500mg tab 1-2 times in between the 1000 mg doses Miscellaneous Medical Supply (BLOOD PRESSURE CUFF) 1 Each once daily. ondansetron (ZOFRAN) 4 mg tablet Take 4 mg by mouth every 8 hours as needed for nausea/vomiting. meclizine (ANTIVERT) 25 mg tab Take 25 mg by mouth three times a day. cephALEXin (KEFLEX) 500 mg capsule Take 500 mg by mouth three times a day. ammonium lactate (LAC-HYDRIN) 12 % lotion Apply 1 application to affected area as needed for Dry Skin. melatonin 3 mg Take by mouth daily at bedtime. COMPOUNDED PRESCRIPTION Cock up wrist splint, right Medium. To be worn nightly to prevent carpal tunnel symptoms. Dx: carpal tunnel right Blood-Glucose Meter, Drum-type (ACCU-CHEK COMPACT PLUS CARE) Misc Kit 1 Each. Accu-Check Compact Plus Meter Diagnosis: Diabetes Mellitus ASPIRIN 81 MG TAB Take one (1) tablet daily . No current facility-administered medications for this visit. Physical Exam Vitals: There were no vitals taken for this visit. Psych: Pleasant, good affect and mood General Appearance: Well appearing, alert, in no acute distress, well-hydrated, well nourished.. Skin: Skin color, texture, turgor normal, no suspicious rashes or lesions. Peripheral Pulses: Normal. Neurologic: Gait normal. Reflexes normal and symmetric. Sensation grossly intact.. Lymph Nodes: No cervical lymphadenopathy, No supraclavicular lymphadenopathy, No axillary lymphadenopathy., and No inguinal lymphadenopathy.. Respiratory: No recent pulmonary infection, hemoptysis, chronic cough, or shortness of breath at rest Rheumatologic: Joint deformities: left hand numbness Right Hand Exam Right hand exam is normal. Tenderness The patient is experiencing no tenderness. Range of Motion The patient has normal right wrist ROM. Wrist Extension: normal Flexion: normal Pronation: normal Supination: normal Muscle Strength The patient has normal right wrist strength. Tests Phalen s Sign: negative Tinel's sign (median nerve): negative Simone's test: negative Other Erythema: absent Sensation: normal Pulse: present Comments: B/l /uln/rad/ax nerves intact Left Hand Exam Tenderness The patient is experiencing tenderness in the radial area. Range of Motion The patient has normal left wrist ROM. Wrist Extension: normal Flexion: normal Pronation: normal Supination: normal Muscle Strength The patient has normal left wrist strength. Tests Phalen s sign: positive Tinel's sign (median nerve): positive Simone's test: negative Other Erythema: absent Sensation: normal Pulse: present Assessment and Plan Radiographs: I have independently reviewed films and my findings are the same. and I have reviewed the images with the patient and family. Severe left cts Impression: Encounter Diagnosis ICD-10-CM 1. Numbness and tingling in left hand R20.0 R20.2 Today, in detail, through a thorough evaluation, we discussed possible etiologies of pain and our plans for further diagnostic and therapeutic interventions. We discussed strategies for decreasing pain and improving strength, stability and motion. Patient's questions were answered in detailed. Patient verbalizes understanding and agrees with the treatment plan as discussed. Risks and benefits vs alternatives to treatment were discussed with patient. Risks including but not limited to blood loss, blood clot, infection, neurovascular injury, failure of procedure, need forrevision operation, loss of life and loss of limb. Patient aware of risks and benefits and agrees to proceed with written consent for surgical intervention. Left ctr as done well with right, worsening weakness c/w indications for left ctr Patient aware and in agreement of plan. All questions answered. Savana De Oliveira D.O. M.P.HKristen documented in [facility] encounterA[facility]03[facility] Telephone encounter Note * Telephone Encounter - Nataliia Burnham RN - 11/20/2024 4:30 PM EST Patient returned call and given provider's message below and patient verbalized understanding. Edd Burnham RN [facility]03-04-2025 Miscellaneous Notes* Telephone Encounter - Nataliia Burnham RN - 11/20/2024 4:30 PM EST Patient returned call and given provider's message below and patient verbalized understanding. Edd Burnham RN * Telephone Encounter - Duyen Bey LPN - 11/20/2024 9:56 AM EST VM left for patient to return call to review results and recommendations. Duyen Bey LPN * Telephone Encounter - Duyen Bey LPN - 11/20/2024 9:56 AM EST ----- Message from Maribel Fay MD sent at 11/20/2024 7:03 AM EST ----- A1c still elevated at 8.8. continue with regimen discussed in office and work on closer adherence to DM diet. Kidney function stable in CKD stage IIIa range. Recommend low sodium diet <2,000 mg per day, avoidance of NSAIDs, and increased water intake. Cholesterol looks good. documented in this encounterA[facility]03-[facility] Telephone encounter Note * Telephone Encounter - Duyen Bey LPN - 11/20/2024 9:56 AM EST VM left for patient to return call to review results and recommendations. Duyen Bey LPN [facility]03-04-2025 Telephone encounter Note* Telephone Encounter - Duyen Bey LPN - 11/20/2024 9:56 AM EST ----- Message from Maribel Fay MD sent at 11/20/2024 7:03 AM EST ----- A1c still elevated at 8.8. continue with regimen discussed in office and work on closer adherence to DM diet. Kidney function stable in CKD stage IIIa range. Recommend low sodium diet <2,000 mg per day, avoidance of NSAIDs, and increased water intake. Cholesterol looks good. [facility]03-03-2025 Instructions* Patient Instructions* Maribel Fay MD - 11/19/2024 1:28 PM EST Call in 2 weeks with updated sugar readings. Call sooner with readings less than 80. documented in this encounterA[facility]03-03-2025 NoteHNO ID: [id number] Author: MARIBEL FAY MD Service: ? Author Type: Physician Type: Progress Notes Filed: 11/20/2024 07:54 Note Text: Chief Complaint Patient presents with: Follow Up: 3 month HPI Charlette Farmer is a 89 year old female who presents here today for Above Complaints.. DIABETES MELLITUS: Ms. Farmer was last seen 3 months ago. Since our last visit we have reduced her Lantus dosage to 18 units qhs due to hypoglycemic episodes in the 70's when fasting. she denies excessive thirst or increased frequency of urination, numbness, tingling or pain in extremities, new or unusual visual symptoms. Admits to blurred vision when reading. Follows a diabetic diet some of the time. States that sugars were high the first week [employer] opened because she was eating out more. She is compliant with medication(s) and is tolerating med(s) without any side effects. She reports checking her glucose on a 2-3 times per day schedule with sugars in the fasting 120-170 range typically with rare readings in the low 200's. Before bed, readings have been in the 200-357 with most reading around 250 in the last couple of weeks. Patient's last HgA1C was Hemoglobin A1C (%) Date Value 08/17/2024 8.8 05/15/2024 8.3 11/03/2021 7.9 07/22/2021 7.8 ) Last Ophthalmology exam was more than 1 year ago. Last Podiatry exam was within the past 12 months BP low today. Taking lisinopril and HCTZ as prescribed without side effects. Denies lightheadedness/dizziness, nausea, vomiting, diarrhea. Does not have BP cuff at home to monitor. Also notes that she has jock itch rash in left groin which she is treating with clotrimazole for about a month. Improving, but not resolved. Past medical history, appointments, medications, allergies reviewed. Previous Medical History PAST MEDICAL HISTORY Diagnosis Date Arthritis Benign neoplasm of colon tubular adenoma Carpal tunnel syndrome, right Chronic kidney disease, stage 3 (HCC) Diverticulitis 10/10/2020 Diverticulosis of colon (without mention of hemorrhage) Gout History of colonic polyps 2023, hyperplastic and tubular adenoma History of transfusion Internal hemorrhoids without mention of complication Lumbago Malignant neoplasm of corpus uteri, except isthmus (HCC) 1996 Uterine cancer Other and unspecified hyperlipidemia PAD (peripheral artery disease) (HCC) 2013 Mild LLE Pernicious anemia Restless leg syndrome Rotator cuff tendinitis left Trigger finger, right middle finger Seen by Dr. Burns 2015 Type II or unspecified type diabetes mellitus without mention of complication, uncontrolled Unspecified essential hypertension Previous Surgical History PAST SURGICAL HISTORY Procedure Laterality Date ABDOMINAL SURGERY HX APPENDECTOMY 1952 BACK SURGERY HX CHOLECYSTECTOMY 11/28/2011 COLONOSCOPY 07/12/2024 COLONOSCOPY FLX DX W/COLLJ SPEC WHEN PFRMD 2001 out of state sigmoidoscopy COLONOSCOPY FLX DX W/COLLJ SPEC WHEN PFRMD 10/22/2013 Colonoscopy COLONOSCOPY GEN ANES 01/07/2021 Dr. Phillips, Polyps. repeat in 3 years. COLONOSCOPY W/BIOPSY SINGLE/MULTIPLE 11/12/2008 DILATION AND CURETTAGE DXAND/THER NONOBSTETRIC 1965 Dilation AND curettage EGD 01/07/2021 EGD 07/12/2024 EYE SURGERY HX LAMINECTOMY W/O FFD 09/20 VERT SEG LUMBAR 1971 Laminectomy, lumbar, fusion PAST SURGICAL HISTORY OF Left 09/01/2017 Trigger finger release of left ringer finger REVISE MEDIAN N/CARPAL TUNNEL SURG Right 05/31/2023 TONSILLECTOMY HX TUBAL LIGATION HX VAGINAL HYSTERECTOMY VAGINAL HYSTERECTOMY UTERUS 250 GM/< 1997 Hysterectomy, vaginal Family History FAMILY HISTORY Problem Relation Age of Onset Cancer Mother breast, lung cancer was heavy smoker Diabetes Maternal Grandmother Diabetes Maternal Grandfather other (no siblings) Maternal Grandfather Patient Allergies ALLERGIES Allergen Reactions Lipitor [Atorvastat* Intolerance myalgia Simvastatin Intolerance myalgia Current Medications Current Outpatient Medications on File Prior to Visit Medication Sig insulin glargine (LANTUS SOLOSTAR U-100 INSULIN) 100 unit/mL (3 mL) Inject 18 units subcutaneously at bedtime insulin lispro (HUMALOG U-100 INSULIN) 100 unit/mL injection Inject 4 Units subcutaneously three times a day before meals. Insulin Volborg, Disposable, (PEN NEEDLE) 29 gauge x 1/2 One needle once daily. Dx: 250.02 Insulin: yes gabapentin (NEURONTIN) 600 mg tablet Take 1 tablet by mouth two times a day for 90 days. omeprazole (PRILOSEC) 20 mg capsule Take 1 capsule by mouth once daily. (Patient not taking: Reported on 10/19/2024) cyanocobalamin (VITAMIN B-12) 1,000 mcg tab Take one tablet every other day Dx: pernicious anemia allopurinol (ZYLOPRIM) 100 mg tablet Take 1 tablet by mouth two times a day. hydroCHLOROthiazide 12.5 mg capsule Take 1 capsule by mouth once daily. lisinopril 2.5 mg tablet Take 1 tablet (more content not included)...[facility] [place]03-03-[facility]25 History of Present illness Narrative* Maribel Fay MD - 11/19/2024 12:48 PM EST Chief Complaint Patient presents with: Follow Up: 3 month HPI Charlette Farmer is a 89 year old female who presents here today for Above Complaints.. DIABETES MELLITUS: Ms. Farmer was last seen 3 months ago. Since our last visit we have reduced herLantus dosage to 18 units qhs due to hypoglycemic episodes in the 70's when fasting. she denies excessive thirst or increased frequency of urination, numbness, tingling or pain in extremities, new orunusual visual symptoms. Admits to blurred vision when reading. Follows a diabetic diet some of thetime. States that sugars were high the first week [employer] opened because she was eating out more. She is compliant with medication(s) and is tolerating med(s) without any side effects. She reports checking her glucose on a 2-3 times per day schedule with sugars in the fasting 120-170 range typically with rare readings in the low 200's. Before bed, readings have been in the 200-357 with most reading around 250 in the last couple of weeks. Patient's last HgA1C was Hemoglobin A1C (%) Date Value 08/17/2024 8.8 05/15/2024 8.3 11/03/2021 7.9 07/22/2021 7.8 ) Last Ophthalmology exam was more than 1 year ago. Last Podiatry exam was within the past 12 months BP low today. Taking lisinopril and HCTZ as prescribed without side effects. Denies lightheadedness/dizziness, nausea, vomiting, diarrhea. Does not have BP cuff at home to monitor. Also notes that she has jock itch rash in left groin which she is treating with clotrimazole for about a month. Improving, but not resolved. Past medical history, appointments, medications, allergies reviewed. Previous Medical History PAST MEDICAL HISTORY Diagnosis Date Arthritis Benign neoplasm of colon tubular adenoma Carpal tunnel syndrome, right Chronic kidney disease, stage 3 (HCC) Diverticulitis 10/10/2020 Diverticulosis of colon (without mention of hemorrhage) Gout History of colonic polyps 2023, hyperplastic and tubular adenoma History of transfusion Internal hemorrhoids without mention of complication Lumbago Malignant neoplasm of corpus uteri, except isthmus (HCC) 1996 Uterine cancer Other and unspecified hyperlipidemia PAD (peripheral artery disease) (HCC) 2013 Mild LLE Pernicious anemia Restless leg syndrome Rotator cuff tendinitis left Trigger finger, right middle finger Seen by Dr. Burns 2016 Type II or unspecified type diabetes mellitus without mention of complication, uncontrolled Unspecified essential hypertension Previous Surgical History PAST SURGICAL HISTORY Procedure Laterality Date ABDOMINAL SURGERY HX APPENDECTOMY 1952 BACK SURGERY HX CHOLECYSTECTOMY 11/28/2011 COLONOSCOPY 07/12/2024 COLONOSCOPY FLX DX W/COLLJ SPEC WHEN PFRMD 2001 out of state sigmoidoscopy COLONOSCOPY FLX DX W/COLLJ SPEC WHEN PFRMD 10/22/2013 Colonoscopy COLONOSCOPY GEN ANES 01/07/2021 Dr. Phillips, Polyps. repeat in 3 years. COLONOSCOPY W/BIOPSY SINGLE/MULTIPLE 11/12/2008 DILATION & CURETTAGE DX&/THER NONOBSTETRIC 1965 Dilation & curettage EGD 01/07/2021 EGD 07/12/2024 EYE SURGERY HX LAMINECTOMY W/O FFD 09/20 VERT SEG LUMBAR 1971 Laminectomy, lumbar, fusion PAST SURGICAL HISTORY OF Left 09/01/2017 Trigger finger release of left ringer finger REVISE MEDIAN N/CARPAL TUNNEL SURG Right 05/31/2023 TONSILLECTOMY HX TUBAL LIGATION HX VAGINAL HYSTERECTOMY VAGINAL HYSTERECTOMY UTERUS 250 GM/< 1997 Hysterectomy, vaginal Family History FAMILY HISTORY Problem Relation Age of Onset Cancer Mother breast, lung cancer was heavy smoker Diabetes Maternal Grandmother Diabetes Maternal Grandfather other (no siblings) Maternal Grandfather Patient Allergies ALLERGIES Allergen Reactions Lipitor [Atorvastat* Intolerance myalgia Simvastatin Intolerance myalgia Current Medications Current Outpatient Medications on File Prior to Visit Medication Sig insulin glargine (LANTUS SOLOSTAR U-100 INSULIN) 100 unit/mL (3 mL) Inject 18 units subcutaneously at bedtime insulin lispro (HUMALOG U-100 INSULIN) 100 unit/mL injection Inject 4 Units subcutaneously three times a day before meals. Insulin Volborg, Disposable, (PEN NEEDLE) 29 gauge x 1/2 One needle once daily. Dx: 250.02 Insulin: yes gabapentin (NEURONTIN) 600 mg tablet Take 1 tablet by mouth two times a day for 90 days. omeprazole (PRILOSEC) 20 mg capsule Take 1 capsule by mouth once daily. (Patient not taking: Reported on 10/19/2024) cyanocobalamin (VITAMIN B-12) 1,000 mcg tab Take one tablet every other day Dx: pernicious anemia allopurinol (ZYLOPRIM) 100 mg tablet Take 1 tablet by mouth two times a day. hydroCHLOROthiazide 12.5 mg capsule Take 1 capsule by mouth once daily. lisinopril 2.5 mg tablet Take 1 tablet by mouth once daily. rosuvastatin (CRESTOR) 20 mg tablet Take 1 tablet by mouth daily at bedtime. pramipexole (MIRAPEX) 0.25 mg tablet Take 1 tablet by mouth daily at bedtime. blood sugar diagnostic (TRUE METRIX GLUCOSE TEST STRIP) test strip Test once daily DX:250.02 Insulin: Yes Lancets lancets Pt requests Truedraw lancets. Test blood sugar(s) 1 times daily. Dx: Other DM Code 250.02 Insulin: Yes Lancets (ACCU-CHEK SOFTCLIX LANCETS) lancets Use Three times daily to check blood sugar Acetaminophen 500 mg cap Take 2 capsules by mouth two times a day as needed for pain. Reports will utilize 1 500mg tab 1-2 times in between the 1000 mg doses Miscellaneous Medical Supply (BLOOD PRESSURE CUFF) 1 Each once daily. ondansetron (ZOFRAN) 4 mg tablet Take 4 mg by mouth every 8 hours as needed for nausea/vomiting. (Patient not taking: Reported on 10/19/2024) meclizine (ANTIVERT) 25 mg tab Take 25 mg by mouth three times a day. cephALEXin (KEFLEX) 500 mg capsule Take 500 mg by mouth three times a day. blood sugar diagnostic (BLOOD GLUCOSE TEST) test strip Test blood sugar(s) 2 times daily. Dx: Type 2 DM - Controlled E11.9 Insulin: Yes ammonium lactate (LAC-HYDRIN) 12 % lotion Apply 1 application to affected area as needed for Dry Skin. melatonin 3 mg Take by mouth daily at bedtime. COMPOUNDED PRESCRIPTION Cock up wrist splint, right Medium. To be worn nightly to prevent carpal tunnel symptoms. Dx: carpal tunnel right Blood-Glucose Meter, Drum-type (ACCU-CHEK COMPACT PLUS CARE) Mis Kit 1 Each. Accu-Check Compact Plus Meter Diagnosis: Diabetes Mellitus ASPIRIN 81 MG TAB Take one (1) tablet daily . No current facility-administered medications on file prior to visit. Social History Social History Tobacco Use Smoking status: Former Current packs/day: 0.00 Average packs/day: 1 pack/day for 21.0 years (21.0 ttl pk-yrs) Types: Cigarettes Start date: 11/23/1952 Quit date: 09/19/1973 Years since quittin.2 Smokeless tobacco: Never Vaping Use Vaping status: Never Used Substance Use Topics Alcohol use: Yes Comment: occas glass of wine Drug use: No Review of Symptoms REVIEW OF SYSTEMS GENERAL: No weight loss, malaise or fevers RESPIRATORY: Negative for cough, hemoptysis, wheezing, COPD, dyspnea or shortness of breath CARDIOVASCULAR: Negative for chest pain, leg swelling, hypertension, CHF or palpitations GI: No nausea, vomiting, or diarrhea SKIN: See HPI EXAM: BP 102/58 Pulse 73 Resp 16 Wt 71.4 kg (157 lb 6.4 oz) SpO2 98% BMI 29.74 kg/m General Appearance: Well appearing, alert, in no acute distress, well-hydrated, well nourished.. Skin: mild tinea cruris rash in left groin without cellulitis. Lungs: Lungs clear to auscultation. No wheezing, rhonchi, rales.. Heart: RRR without murmur, gallop, or rubs. No ectopy. Abdomen: Normal abdominal exam, Abdomen soft, non-tender. Bowel sounds normal. No masses, organomegaly. Extremities: No deformities, edema, skin discoloration, clubbing or cyanosis. Good capillary refill. . Health Maintenance List Depression Screening Never done Anxiety Screening Never done RSV Vaccine(1 - 1-dose 75+ series) Never done DTaP,Tdap,Td Vaccine(2 - Tdap) due on 06/06/2018 Shingrix Vaccine(2 of 2) due on 10/04/2023 Advance Directive Discussion due on 09/19/2024 HbA1C due on 11/16/2024 Dilated Retinal Exam due on 11/15/2024 LDL Cholesterol due on 12/19/2024 Covid-19 Vaccine( season) due on 01/01/2025 Urine Albumin:Creatinine Ratio due on 08/17/2025 Diabetic Foot Exam due on 08/17/2025 Bone Density Screening Completed Influenza Vaccine Completed Pneumococcal Vaccine: 50+ Completed Data reviewed Latest Ref Rng 06/06/2024 06/12/2024 08/17/2024 WBC 3.70 - 11.00 k/uL 8.13 10.60 6.03 RBC 3.90 - 5.20 m/uL 3.53 (L) 4.12 3.76 (L) Hemoglobin 11.5 - 15.5 g/dL 11.2 (L) 12.7 11.6 Hematocrit 36.0 - 46.0 % 33.4 (L) 38.3 35.5 (L) MCV 80.0 - 100.0 fL 94.6 93.0 94.4 MCH 26.0 - 34.0 pg 31.7 30.8 30.9 MCHC 30.5 - 36.0 g/dL 33.5 33.2 32.7 RDW-CV 11.5 - 15.0 % 14.4 13.9 14.5 Platelet Count 150 - 400 k/uL 215 306 207 MPV 9.0 - 12.7 fL 10.7 10.6 10.6 Neut% % 68.8 61.8 Abs Neut (ANC) 1.45 - 7.50 k/uL 5.60 3.73 Lymph% % 19.6 26.7 Abs Lymph 1.00 - 4.00 k/uL 1.59 1.61 [place]% % 10.0 8.1 Abs [place] <0.87 k/uL 0.81 0.49 Eosin% % 0.9 2.5 Abs Eosin <0.46 k/uL 0.07 0.15 Baso% % 0.5 0.7 Abs Baso <0.11 k/uL 0.04 0.04 Immature Gran % % 0.2 0.2 IMMATURE GRANS (ABS) <0.10 k/uL <0.03 <0.03 NRBC /100 WBC 0.0 0.0 Absolute nRBC <0.01 k/uL <0.01 <0.01 <0.01 DTYPE Auto Auto Protein, Total 6.3 - 8.0 g/dL 7.0 6.9 Albumin 3.9 - 4.9 g/dL 4.2 4.4 Calcium 8.5 - 10.2 mg/dL 9.7 9.6 Bilirubin, Total 0.2 - 1.3 mg/dL 0.4 0.4 Alkaline Phosphatase 34 - 123 U/L 83 80 AST 13 - 35 U/L 19 18 ALT 7 - 38 U/L 11 8 Glucose 74 - 99 mg/dL 131 (H) 91 BUN 7 - 21 mg/dL 24 (H) 23 (H) Creatinine 0.58 - 0.96 mg/dL 1.13 (H) 1.22 (H) Sodium 136 - 144 mmol/L 136 141 Potassium 3.7 - 5.1 mmol/L 3.7 3.9 Chloride 98 - 107 mmol/L 99 103 CO2 22 - 30 mmol/L 22 23 Anion Gap 8 - 15 mmol/L 15 15 eGFR >=60 mL/min/1.73m 47 (L) 43 (L) Iron 41 - 186 ug/dL 83 TIBC 232 - 386 ug/dL 291 Transferrin Saturation 15.0 - 57.0 % 28.5 Creatinine, Ur Random (UCRR) 20.0 - 300.0 mg/dL 103.2 Albumin, Urine Random mg/L 15.1 Albumin/Creat Ratio <30 mg/g 15 Hemoglobin A1C 4.3 - 5.6 % 8.8 (H) Estimated Average Glucose mg/dL 206 Uric Acid 2.5 - 6.6 mg/dL 4.1 Ferritin 14.7 - 205.1 ng/mL 379.0 (H) 257.0 (H) Vitamin B12 232 - 1,245 pg/mL >2,000 (H) Folate >4.7 ng/mL 14.8 Legend: (L) Low (H) High ASSESSMENT/PLAN: 1. DM type 2 with diabetic peripheral neuropathy (HCC) - ICD9: 250.60, 357.2, ICD10: E11.42 (primary diagnosis) Hypoglycemic episodes have resolved, but sugars are now elevated. This is in part due to poor diet recently. Discussed cutting back on ice cream and high carb food. Increase mealtime insulin to 6 units and send update on readings in 2 weeks. F/u in 1 month. Call with sugars <80 or worsening DM symptoms. F/u with optho for any vision changes. - HEMOGLOBIN A1C - COMPREHENSIVE METABOLIC PANEL - LIPID PANEL, NONFASTING - INSULIN LISPRO (U-100) 100 UNIT/ML SUBCUTANEOUS SOLUTION - ROSUVASTATIN 20 MG TABLET - PEN NEEDLE, DIABETIC 29 GAUGE X 1/2 2. Hypotension due to drugs - ICD9: 458.8, E947.9, ICD10: I95.2 Stop HCTZ. Recheck at OV in 4 weeks. 3. Tinea cruris - ICD9: 110.3, ICD10: B35.6 - Treat with diflucan along with her previous clotrimazole rx. - Keep area of concern very dry. Ok to use OTC antifungal powder if area is moist - Follow up with PCP if symptoms persist or do not improved after 4-6 weeks of treatment. - FLUCONAZOLE 150 MG TABLET Maribel Fay MD documented [facility] Telephone encounter Note * Telephone Encounter - Amanda Allen - 10/25/2024 7:12 PM EST Contacted patient and schedule with Savana De Oliveira in [place] 11-30-2024 [facility] Work Phone: 1(520) 445-218802-06-2025 Miscellaneous Notes* Telephone Encounter - Amanda Allen - 10/25/2024 7:12 PM EST Contacted patient and schedule with Savana Valentinsalvadorcharissa in [place] 11-30-2024 * Telephone Encounter - Shelley Fontenot OCCA - 10/24/2024 9:36 AM EST TC to patient who verbalized understanding of providers message below. Patient states she previously saw Dr. De Oliveira for her right hand carpal tunnel and would like to schedule to see her again. Please contact after 3 PM to assist with scheduling this appointment. Thank you. LUCIO Blanco * Telephone Encounter - Shelley Fontenot OCCA - 10/24/2024 9:33 AM EST ----- Message from Maribel Fay MD sent at 10/24/2024 7:34 AM EST ----- EMG shows severe carpal tunnel of the left wrist. Follow up with ortho as recommended. [facility] Telephone encounter Note * Telephone Encounter - Shelley Fontenot OCCA - 10/24/2024 9:36 AM EST TC to patient who verbalized understanding of providers message below. Patient states she previously saw Dr. De Oliveira for her right hand carpal tunnel and would like to schedule to see her again. Please contact after 3 PM to assist with scheduling this appointment. Thank you. LUCIO Blanco [facility]02-05-2025 Telephone encounter Note* Telephone Encounter - Shelley Fontenot OCCA - 10/24/2024 9:33 AM EST ----- Message from Maribel Fay MD sent at 10/24/2024 7:34 AM EST ----- EMG shows severe carpal tunnel of the left wrist. Follow up with ortho as recommended. [facility]02-03-2025 NoteHNO ID: [id number] Author: LEE FERNANDEZ MD Service: ? Author Type: Physician Type: Progress Notes Filed: 10/22/2024 13:12 Note Text: UNIVERSAL PROTOCOL / SAFETY CHECKLIST Procedure to be Performed: EMG Sign In: A Moment of CARE was completed. Personnel directly involved with the procedure wore the appropriate PPE (Personal Protective Equipment). Patient/Surrogate Stated/Verified: PATIENT VERIFIED(optional for EMERGENT procedures): Patient name, Date of , Relevant allergies, and The intended procedure Time Out Communication: Intended patient and procedure match the source documents. Correct side/site marked and visible. Sign Out: SIGN OUT (optional for EMERGENT procedures): Post-procedure follow-up management communicated and Plan of Care Visit completed when applicable. ZACK Liang, [facility]02-03-2025 History of Present illness Narrative* Lee Fernandez MD - 10/22/2024 12:43 PM EST UNIVERSAL PROTOCOL / SAFETY CHECKLIST Procedure to be Performed: EMG Sign In: A Moment of CARE was completed. Personnel directly involved with the procedure wore the appropriate PPE (Personal Protective Equipment). Patient/Surrogate Stated/Verified: PATIENT VERIFIED(optional for EMERGENT procedures): Patient name, Date of , Relevant allergies, and The intended procedure Time Out Communication: Intended patient and procedure match the source documents. Correct side/site marked and visible. Sign Out: SIGN OUT (optional for EMERGENT procedures): Post-procedure follow-up management communicated and Plan of Care Visit completed when applicable. LETICIA Liang.T Lee Fernandez MD documented in this encounterA[facility]01-31-2025 NoteHNO ID: [id number] Author: KAREL SANTIAGO, ? Service: ? Author Type: Physician Type: Progress Notes Filed: 10/19/2024 14:18 Note Text: Last saw pcp: 09/27/24 Subjective: Patient presents to clinic c/o painful toenails. They state that the nails are especially painful with shoe gear and pressure. Patient states that nails 1-5 b/l are painful. No other pedal complaints at this time. Patient states no change in medications or medical history since last visit. Objective: Patient presents to clinic ambulating in [facility] Vasc: DP and PT pulses are palpable bilateral. CFT is less than 5 seconds bilateral. Skin temperature is warm to cool proximal to distal bilateral. There is mild edema or varicosities noted. Neuro: Protective sensation is decreased to the foot and toes when tested with the 5.07 SWM bilateral. Vibratory sensation is absent at the hallux IPJ bilateral. The hallux is downgoing bilateral. Derm: Nails 1-5 b/l are painful, discolored-yellow, thick, crumbly, dystrophic and with subungal debris. Skin is of normal turgor, texture and hair growth is absent bilateral. There are no hyperkeratosis, ulcerations, scars, verruca or other lesions noted. Ortho: Muscle strength is 5/5 for all pedal groups tested. Ankle joint DF is decreased with the knee extended with no pain or crepitus noted. 1st MPJ ROM is decreased bilateral. 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 Nails 1-5 bilateral were debrided in length and thickness. Small bleed to right 5th toe. Band aide applied. Patient was instructed on the continued importance of diabetic foot care along with proper diet and keeping their blood sugar under control to prevent complications. Stressed the importance of avoiding barefoot walking, wearing good shoes and inspection of feet. Patient is to RTC in 3-4 months. Karel Jack [facility]01-31-2025 History of Present illness Narrative* Karel Santiago - 10/19/2024 2:08 PM EST Last saw pcp: 09/27/24 Subjective: Patient presents to clinic c/o painful toenails. They state that the nails are especially painful with shoe gear and pressure. Patient states that nails 1-5 b/l are painful. No other pedal complaints at this time. Patient states no change in medications or medical history since last visit. Objective: Patient presents to clinic ambulating in [facility] Vasc: DP and PT pulses are palpable bilateral. CFT is less than 5 seconds bilateral. Skin temperature is warm to cool proximal to distal bilateral. There is mild edema or varicosities noted. Neuro: Protective sensation is decreased to the foot and toes when tested with the 5.07 SWM bilateral. Vibratory sensation is absent at the hallux IPJ bilateral. The hallux is downgoing bilateral. Derm: Nails 1-5 b/l are painful, discolored-yellow, thick, crumbly, dystrophic and with subungal debris. Skin is of normal turgor, texture and hair growth is absent bilateral. There are no hyperkeratosis, ulcerations, scars, verruca or other lesions noted. Ortho: Muscle strength is 5/5 for all pedal groups tested. Ankle joint DF is decreased with the knee extended with no pain or crepitus noted. 1st MPJ ROM is decreased bilateral. 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 Nails 1-5 bilateral were debrided in length and thickness. Small bleed to right 5th toe. Band aide applied. Patient was instructed on the continued importance of diabetic foot care along with proper diet andkeeping their blood sugar under control to prevent complications. Stressed the importance of avoiding barefoot walking, wearing good shoes and inspection of feet. Patient is to RTC in 3-4 months. Karel Santiago DPM * La Nena Lawson LPN - 10/19/2024 2:01 PM EST AMB ROOMING INTAKE FLOWSHEET DATA Patient presents with: Left Foot - Established Patient, Follow Up, Diabetic Foot Care Right Foot - Established Patient, Follow Up, Diabetic Foot Care La Nena Lawson LPN documented in this encounterA[facility]01-31-2025 Instructions* Patient Instructions* Karel Santiago - 10/19/2024 2:08 PM EST Diabetes Foot Care Instructions When you have diabetes, proper foot care is very important. Poor foot care may lead to amputation of a foot or leg. As a person with diabetes, you are more vulnerable to foot problems, because diabetes can damage your nerves and reduce blood flow to your feet. Here are some diabetes foot care tips to follow: Wash and Dry Your Feet Daily Use mild soaps Use warm water Pat your skin dry; do not rub. Thoroughly dry your feet. After washing, use lotion on your feet to prevent cracking. Do not put lotion between your toes. Examine Your Feet Each Day Check the tops and bottoms of your feet. Have someone else look at your feet if you cannot see them. Check for dry, cracked skin. Look for blisters, cuts, scratches, or other sores. Check for redness, increased warmth, or tenderness when touching any area of your feet. Check for ingrown toenails, corns, and calluses. If you get a blister or sore from your shoes, do not pop it. Apply a bandage and wear a differentpair of shoes. Take Care of Your Toenails Cut toenails after bathing, when they are soft. Cut toenails straight across and smooth with a nail file. Avoid cutting into the corners of toes. Do not cut cuticles. If you have neuropathy (or decreased sensation in your feet) a clinical informatics director should always cut your toenails. Be Careful When Exercising Walk and exercise in comfortable shoes. Do not exercise when you have open sores on your feet. Protect Your Feet With Shoes and Socks Never go barefoot. Always protect your feet by wearing shoes or hard-soled slippers or footwear. Avoid shoes with high heels and pointed toes. Avoid shoes that expose your toes or heels (such as open-toed shoes or sandals). These types of shoes increase your risk for injury and potential infections. Try on new footwear with the type of socks you usually wear. Do not wear new shoes for more than an hour at a time. Change your socks daily. Look and feel inside your shoes before putting them on to make sure there are no foreign objects orrough areas. Avoid tight socks. Wear natural-fiber socks (cotton, wool, or a cotton-wool blend). Wear special shoes if your health care provider recommends them. Wear shoes/boots that will protect your feet from various weather conditions (cold, moisture, etc.). Make sure your shoes fit properly. If you have neuropathy (nerve damage), you may not notice that your shoes are too tight. Perform the footwear test described below. Footwear Test Use this simple test to see if your shoes fit correctly: Stand on a piece of paper. (Make sure you are standing and not sitting, because your foot changes shape when you stand.) Trace the outline of your foot. Trace the outline of your shoe. Compare the tracings: Is the shoe too narrow? Is your foot crammed into the shoe? The shoe should be at least 1/2 inch longer than your longest toe and as wide as your foot. Proper Shoe Choices The following types of shoes are best for people with diabetes Closed toes and heels Leather uppers without a seam inside At least 1/2 inch extra space at the end of your longest toe Inside of shoe should be soft with no rough areas Outer sole should be made of stiff material Shoes should be at least as wide as your feet Tips for Foot Care in Diabetes Don't wait to treat a minor foot problem if you have diabetes. Follow your health care provider's guidelines and first aid guidelines. Report foot injuries and infections to your health care provider immediately. Check water temperature with your elbow, not your foot. Do not use a heating pad on your feet. Do not cross your legs. Do not self-treat your corns, calluses, or other foot problems. Go to your health care provider or clinical informatics director to treat these conditions. documented in this encounterAultman [facility]01-31-2025 NoteHNO ID: [id number] Author: LA NENA LAWSON LPN Service: ? Author Type: LICENSED NURSE Type: Progress Notes Filed: 10/19/2024 14:18 Note Text: AMB ROOMING INTAKE FLOWSHEET DATA Patient presents with: Left Foot - Established Patient, Follow Up, Diabetic Foot Care Right Foot - Established Patient, Follow Up, Diabetic Foot Care [facility] Tele[facility] encounter Note* Telephone Encounter - Duyen Bey LPN - 10/08/2024 11:49 AM EST Phoned patient and reviewed message with her. Patient voiced understanding. Had patient repeat message back and she repeated correctly. Duyen Bey LPN [facility]01-20-2025 Miscellaneous Notes* Telephone Encounter - Duyen Bey LPN - 10/08/2024 11:49 AM EST Phoned patient and reviewed message with her. Patient voiced understanding. Had patient repeat message back and she repeated correctly. Duyen Bey LPN * Telephone Encounter - Tosha Pelaez APRN.CNP - 10/08/2024 11:10 AM EST She can decrease her Lantus to 18 units at bedtime. Update in 1-2 weeks with blood sugar readings sooner with readings less than 80. Tosha Pelaez APRN.VAMSHI * Telephone Encounter - Cheryl Billy RN - 10/08/2024 10:15 AM EST Patient calls and states that blood sugar is currently 160. * Telephone Encounter - Duyen Bey LPN - 10/08/2024 9:28 AM EST Reviewed provider's message with patient. She stated she does 20 units of lantus when she goes to bed usually 11p-1a time frame. She usually gets up late in the mornings and reports she eats 2 regular meals a day around 1-2pm and then again at 7p, Advised patient to call once she gets the blood sugar reading as advised. She voiced understanding. Duyen Bey LPN * Telephone Encounter - Tosha Pelaez APRN.VAMSHI - 10/08/2024 9:17 AM EST Did she reduce he Lantus to 20 units as recommended a couple of days ago? She should drink another 4 ounces of OJ and eat some toast with peanut butter and recheck blood sugar in 15 minutes. Has she been eating regular meals? Tosha Pelaez APRN.SHELF FILLER * Telephone Encounter - Colette Gilman LPN - 10/08/2024 9:01 AM EST Pt calls and states the following: BLOOD SUGAR LOW (DM) SYMPTOMS: a little light headed ONSET: since the first of the year and maybe in August a little BLOOD GLUCOSE: This am 10-08-24 -70 blood sugar. Pt drank orange juice and ate a waffle with jam andtook it again and it went down to 69. USUAL RANGE: 10-10-24 74 -- 133 -13- 129 -14- 94 15 79 10-04-24 117 10-06-24 68 3 to 4 hours later went up to 90. Came up to 109 before bedtime 10-07-24 90 10-08-24 70 then ate and now 69 TYPE I OR 2: type 2 INSULIN: yes Lantus at night 20 units at night/ Humalog 4 units before each meal and at bedtime DIABETIC PILLS: no OTHER SYMPTOMS: a little light headed DENIES: fever, frequent urination, difficulty breathing, vomiting LOW BLOOD SUGAR GLUCOSE TREATMENT: orange juice, and other foods FOOD: breakfast ALONE: pt is alone today. Pt is resting and waiting to hear your recommendations. Colette Gilman LPN documented in this encounterAultman [facility]01-20-2025 Telephone encounter Note * Telephone Encounter - Tosha Pelaez APRN.CNP - 10/08/2024 11:10 AM EST She can decrease her Lantus to 18 units at bedtime. Update in 1-2 weeks with blood sugar readings sooner with readings less than 80. Tosha Pelaez APRN.VAMSHI [facility]01-20-2025 Telephone encounter Note* Telephone Encounter - Cheryl Billy RN - 10/08/2024 10:15 AM EST Patient calls and states that blood sugar is currently 160. [facility]01-20-[facility] Telephone encounter Note* Telephone Encounter - Duyen Bey LPN - 10/08/2024 9:28 AM EST Reviewed provider's message with patient. She stated she does 20 units of lantus when she goes to bed usually 11p-1a time frame. She usually gets up late in the mornings and reports she eats 2 regular meals a day around 1-2pm and then again at 7p, Advised patient to call once she gets the blood sugar reading as advised. She voiced understanding. Duyen Bey LPN [facility]01-20-2025 Telephone encounter Note* Telephone Encounter - Tosha Pelaez APRN.CNP - 10/08/2024 9:17 AM EST Did she reduce he Lantus to 20 units as recommended a couple of days ago? She should drink another 4 ounces of OJ and eat some toast with peanut butter and recheck blood sugar in 15 minutes. Has she been eating regular meals? Tosha Pelaez APRN.VAMSHI [facility]01-20-2025 Telephone encounter Note* Telephone Encounter - Colette Gilman LPN - 10/08/2024 9:01 AM EST Pt calls and states the following: BLOOD SUGAR LOW (DM) SYMPTOMS: a little light headed ONSET: since the first of the year and maybe in August a little BLOOD GLUCOSE: This am 10-08-24 -70 blood sugar. Pt drank orange juice and ate a waffle with jam andtook it again and it went down to 69. USUAL RANGE: 10-10- 74 -12-25 133 -13-25 129 1-14-25 94 -15-25 79 -16-25 117 18-25 68 3 to 4 hours later went up to 90. Came up to 109 before bedtime 10-07-24 90 10-08-24 70 then ate and now 69 TYPE I OR 2: type 2 INSULIN: yes Lantus at night 20 units at night/ Humalog 4 units before each meal and at bedtime DIABETIC PILLS: no OTHER SYMPTOMS: a little light headed DENIES: fever, frequent urination, difficulty breathing, vomiting LOW BLOOD SUGAR GLUCOSE TREATMENT: orange juice, and other foods FOOD: breakfast ALONE: pt is alone today. Pt is resting and waiting to hear your recommendations. Colette Gilman LPN [facility]01-20-2025 Telephone encounter Note* Telephone Encounter - Colette Gilman LPN - 10/08/2024 9:00 AM EST Notified. Colette Gilman LPN [facility]01-20-2025 Miscellaneous Notes* Telephone Encounter - Colette Gilman LPN - 10/08/2024 9:00 AM EST Notified. Colette Gilman LPN * Telephone Encounter - Maribel Fay MD - 10/06/2024 8:21 AM EST Reviewed. Call with update on sugars in 1-2 weeks or sooner with readings <80. * Telephone Encounter - Kassandra Harrison LPN - 10/05/2024 2:51 PM EST Telephone call placed to patient. Went over note below from provider. Patient voices understanding.States she did reduce her lantus to 24 so she will now reduce it to 20 units at . Kassandra Harrison LPN * Telephone Encounter - Maribel Fay MD - 10/05/2024 2:04 PM EST The humalog would not effect her fasting sugar reading. That would be the Lantus. I instructed her at her last OV to reduce her lantus to 24 units. If she did this and her sugar was still 68, then I would have her cut her Lantus further to 20 units qhs. * Telephone Encounter - Cheryl Billy RN - 10/05/2024 12:54 PM EST Patient calls and states that she woke up at noon today. Patient took 4 units of Humalog and then she took her fasting blood sugar of 68. Patient reports that she drank 12 ounces of OJ and ate a piece of toast with Apricot jelly. Her blood sugar now after 45 minutes is 232. Please review and advise, Cheryl Billy RN documented in this encounterAult[facility]01-18-2025 Telephone encounter Note * Telephone Encounter - Maribel Fay MD - 10/06/2024 8:21 AM EST Reviewed. Call with update on sugars in 1-2 weeks or sooner with readings <80. [facility]01-17-2025 Telephone encounter Note* Telephone Encounter - Kassandra Harrison LPN - 10/05/2024 2:51 PM EST Telephone call placed to patient. Went over note below from provider. Patient voices understanding.States she did reduce her lantus to 24 so she will now reduce it to 20 units at HS. Kassandra Harrison LPN [facility]01-17-2025 Telephone encounter Note* Telephone Encounter - Maribel Fay MD - 10/05/2024 2:04 PM EST The humalog would not effect her fasting sugar reading. That would be the Lantus. I instructed her at her last OV to reduce her lantus to 24 units. If she did this and her sugar was still 68, then I would have her cut her Lantus further to 20 units qhs. [facility]01-17-[facility] Telephone encounter Note* Telephone Encounter - Cheryl Billy RN - 10/05/2024 12:54 PM EST Patient calls and states that she woke up at noon today. Patient took 4 units of Humalog and then she took her fasting blood sugar of 68. Patient reports that she drank 12 ounces of OJ and ate a piece of toast with Apricot jelly. Her blood sugar now after 45 minutes is 232. Please review and advise, Cheryl Billy RN [facility]01-09-2025 Instructions* Patient Instructions* Maribel Fay MD - 09/27/2024 10:33 AM EST Please lower your lantus to 24 units at bedtime. Start your mealtime insulin at 4 units per meal. Check your sugars before each meal and before bed. Call with readings less than 80 or above 250. PLEASE CALL IN 2 WEEKS WITH AN UPDATE ON YOUR SUGARS. documented in this encounterAultman [facility]01-09-2025 NoteHNO ID: [id number] Author: MARIBEL FAY MD Service: ? Author Type: Physician Type: Progress Notes Filed: 10/03/2024 08:15 Note Text: Chief Complaint Patient presents with: Follow Up: Laeft wrist and Blood sugars-Patient continued the Lantus at 28 units because she wasn't sure which insulin and amount you adjusted. HPI Charlette Farmer is a 89 year old female who presents here today for Above Complaints. Patient has been in good health without recent hospitalizations, ER visits, or falls. Patient notes she did not reduce her Lantus to 26 units from 28 units after her last OV and she did not start the mealtime insulin. Checking sugars fasting and before bed with continued low fasting readings between 67-77. Gets shaking and feels not herself with low reading. After eating breakfast sugars improve above 80. Readings before bed in the 150-333 range with most readings in the mid 200's. States she has been compliant with low carb diet. Symptoms of numbness and tingling in her left hand has not changed since last OV. Has appointment for EMG on 10/08. Has not scheduled with ortho yet. Wearing her splint at night and does stretch occasionally. Has not been icing. Past medical history, appointments, medications, allergies reviewed. Previous Medical History PAST MEDICAL HISTORY Diagnosis Date Arthritis Benign neoplasm of colon tubular adenoma Carpal tunnel syndrome, right Chronic kidney disease, stage 3 (HCC) Diverticulitis 10/10/2020 Diverticulosis of colon (without mention of hemorrhage) Gout History of colonic polyps 2023, hyperplastic and tubular adenoma History of transfusion Internal hemorrhoids without mention of complication Lumbago Malignant neoplasm of corpus uteri, except isthmus (HCC) 1996 Uterine cancer Other and unspecified hyperlipidemia PAD (peripheral artery disease) (HCC) 2013 Mild LLE Pernicious anemia Restless leg syndrome Rotator cuff tendinitis left Trigger finger, right middle finger Seen by Dr. Burns 2015 Type II or unspecified type diabetes mellitus without mention of complication, uncontrolled Unspecified essential hypertension Previous Surgical History PAST SURGICAL HISTORY Procedure Laterality Date ABDOMINAL SURGERY HX APPENDECTOMY 1952 BACK SURGERY HX CHOLECYSTECTOMY 11/28/2011 COLONOSCOPY 07/12/2024 COLONOSCOPY FLX DX W/COLLJ SPEC WHEN PFRMD 2001 out of state sigmoidoscopy COLONOSCOPY FLX DX W/COLLJ SPEC WHEN PFRMD 10/22/2013 Colonoscopy COLONOSCOPY GEN ANES 01/07/2021 Dr. Phillips, Polyps. repeat in 3 years. COLONOSCOPY W/BIOPSY SINGLE/MULTIPLE 11/12/2008 DILATION AND CURETTAGE DXAND/THER NONOBSTETRIC 1965 Dilation AND curettage EGD 01/07/2021 EGD 07/12/2024 EYE SURGERY HX LAMINECTOMY W/O FFD 09/20 VERT SEG LUMBAR 1971 Laminectomy, lumbar, fusion PAST SURGICAL HISTORY OF Left 09/01/2017 Trigger finger release of left ringer finger REVISE MEDIAN N/CARPAL TUNNEL SURG Right 05/31/2023 TONSILLECTOMY HX TUBAL LIGATION HX VAGINAL HYSTERECTOMY VAGINAL HYSTERECTOMY UTERUS 250 GM/< 1996 Hysterectomy, vaginal Family History FAMILY HISTORY Problem Relation Age of Onset Cancer Mother breast, lung cancer was heavy smoker Diabetes Maternal Grandmother Diabetes Maternal Grandfather other (no siblings) Maternal Grandfather Patient Allergies ALLERGIES Allergen Reactions Lipitor [Atorvastat* Intolerance myalgia Simvastatin Intolerance myalgia Current Medications Current Outpatient Medications on File Prior to Visit Medication Sig insulin lispro (HUMALOG U-100 INSULIN) 100 unit/mL injection Inject 4 Units subcutaneously three times a day before meals. insulin glargine (LANTUS SOLOSTAR U-100 INSULIN) 100 unit/mL (3 mL) Inject 26 Units subcutaneously daily at bedtime. Insulin [place], Disposable, (PEN NEEDLE) 29 gauge x 1/2 One needle once daily. Dx: 250.02 Insulin: yes gabapentin (NEURONTIN) 600 mg tablet Take 1 tablet by mouth two times a day for 90 days. omeprazole (PRILOSEC) 20 mg capsule Take 1 capsule by mouth once daily. cyanocobalamin (VITAMIN B-12) 1,000 mcg tab Take one tablet every other day Dx: pernicious anemia allopurinol (ZYLOPRIM) 100 mg tablet Take 1 tablet by mouth two times a day. hydroCHLOROthiazide 12.5 mg capsule Take 1 capsule by mouth once daily. lisinopril 2.5 mg tablet Take 1 tablet by mouth once daily. rosuvastatin (CRESTOR) 20 mg tablet Take 1 tablet by mouth daily at bedtime. pramipexole (MIRAPEX) 0.25 mg tablet Take 1 tablet by mouth daily at bedtime. blood sugar diagnostic (TRUE METRIX GLUCOSE TEST STRIP) test strip Test once daily DX:250.02 Insulin: Yes Lancets lancets Pt requests Truedraw lancets. Test blood sugar(s) 1 times daily. Dx: Other DM Code 250.02 Insulin: Yes Lancets (ACCU-CHEK SOFTCLIX LANCETS) lancets Use Three times daily to check blood sugar Acetaminophen 500 mg cap Take 2 capsules by mouth two time (more content not included)...[facility] [place]01-09-2025 History of Present illness Narrative* Maribel Fay MD - 09/27/2024 10:22 AM EST Chief Complaint Patient presents with: Follow Up: Laeft wrist and Blood sugars-Patient continued the Lantus at 28 units because she wasn'tsure which insulin and amount you adjusted. HPI Charlette Farmer is a 89 year old female who presents here today for Above Complaints. Patient hasbeen in good health without recent hospitalizations, ER visits, or falls. Patient notes she did not reduce her Lantus to 26 units from 28 units after her last OV and she didnot start the mealtime insulin. Checking sugars fasting and before bed with continued low fasting readings between 67-77. Gets shaking and feels not herself with low reading. After eating breakfast sugars improve above 80. Readings before bed in the 150-333 range with most readings in the mid 200's. States she has been compliant with low carb diet. Symptoms of numbness and tingling in her left hand has not changed since last OV. Has appointment for EMG on 10/08. Has not scheduled with ortho yet. Wearing her splint at night and does stretch occasionally. Has not been icing. Past medical history, appointments, medications, allergies reviewed. Previous Medical History PAST MEDICAL HISTORY Diagnosis Date Arthritis Benign neoplasm of colon tubular adenoma Carpal tunnel syndrome, right Chronic kidney disease, stage 3 (HCC) Diverticulitis 10/10/2020 Diverticulosis of colon (without mention of hemorrhage) Gout History of colonic polyps 2023, hyperplastic and tubular adenoma History of transfusion Internal hemorrhoids without mention of complication Lumbago Malignant neoplasm of corpus uteri, except isthmus (HCC) 1996 Uterine cancer Other and unspecified hyperlipidemia PAD (peripheral artery disease) (HCC) 2013 Mild LLE Pernicious anemia Restless leg syndrome Rotator cuff tendinitis left Trigger finger, right middle finger Seen by Dr. Burns 2015 Type II or unspecified type diabetes mellitus without mention of complication, uncontrolled Unspecified essential hypertension Previous Surgical History PAST SURGICAL HISTORY Procedure Laterality Date ABDOMINAL SURGERY HX APPENDECTOMY 1952 BACK SURGERY HX CHOLECYSTECTOMY 11/28/2011 COLONOSCOPY 07/12/2024 COLONOSCOPY FLX DX W/COLLJ SPEC WHEN PFRMD 2001 out of state sigmoidoscopy COLONOSCOPY FLX DX W/COLLJ SPEC WHEN PFRMD 10/22/2013 Colonoscopy COLONOSCOPY GEN ANES 01/07/2021 Dr. Phillips, Polyps. repeat in 3 years. COLONOSCOPY W/BIOPSY SINGLE/MULTIPLE 11/12/2008 DILATION & CURETTAGE DX&/THER NONOBSTETRIC 1965 Dilation & curettage EGD 01/07/2021 EGD 07/12/2024 EYE SURGERY HX LAMINECTOMY W/O FFD 09/20 VERT SEG LUMBAR 1971 Laminectomy, lumbar, fusion PAST SURGICAL HISTORY OF Left 09/01/2017 Trigger finger release of left ringer finger REVISE MEDIAN N/CARPAL TUNNEL SURG Right 05/31/2023 TONSILLECTOMY HX TUBAL LIGATION HX VAGINAL HYSTERECTOMY VAGINAL HYSTERECTOMY UTERUS 250 GM/< 1997 Hysterectomy, vaginal Family History FAMILY HISTORY Problem Relation Age of Onset Cancer Mother breast, lung cancer was heavy smoker Diabetes Maternal Grandmother Diabetes Maternal Grandfather other (no siblings) Maternal Grandfather Patient Allergies ALLERGIES Allergen Reactions Lipitor [Atorvastat* Intolerance myalgia Simvastatin Intolerance myalgia Current Medications Current Outpatient Medications on File Prior to Visit Medication Sig insulin lispro (HUMALOG U-100 INSULIN) 100 unit/mL injection Inject 4 Units subcutaneously three times a day before meals. insulin glargine (LANTUS SOLOSTAR U-100 INSULIN) 100 unit/mL (3 mL) Inject 26 Units subcutaneously daily at bedtime. Insulin Volborg, Disposable, (PEN NEEDLE) 29 gauge x 1/2 One needle once daily. Dx: 250.02 Insulin: yes gabapentin (NEURONTIN) 600 mg tablet Take 1 tablet by mouth two times a day for 90 days. omeprazole (PRILOSEC) 20 mg capsule Take 1 capsule by mouth once daily. cyanocobalamin (VITAMIN B-12) 1,000 mcg tab Take one tablet every other day Dx: pernicious anemia allopurinol (ZYLOPRIM) 100 mg tablet Take 1 tablet by mouth two times a day. hydroCHLOROthiazide 12.5 mg capsule Take 1 capsule by mouth once daily. lisinopril 2.5 mg tablet Take 1 tablet by mouth once daily. rosuvastatin (CRESTOR) 20 mg tablet Take 1 tablet by mouth daily at bedtime. pramipexole (MIRAPEX) 0.25 mg tablet Take 1 tablet by mouth daily at bedtime. blood sugar diagnostic (TRUE METRIX GLUCOSE TEST STRIP) test strip Test once daily DX:250.02 Insulin: Yes Lancets lancets Pt requests Truedraw lancets. Test blood sugar(s) 1 times daily. Dx: Other DM Code 250.02 Insulin: Yes Lancets (ACCU-CHEK SOFTCLIX LANCETS) lancets Use Three times daily to check blood sugar Acetaminophen 500 mg cap Take 2 capsules by mouth two times a day as needed for pain. Reports will utilize 1 500mg tab 1-2 times in between the 1000 mg doses Miscellaneous Medical Supply (BLOOD PRESSURE CUFF) 1 Each once daily. ondansetron (ZOFRAN) 4 mg tablet Take 4 mg by mouth every 8 hours as needed for nausea/vomiting. meclizine (ANTIVERT) 25 mg tab Take 25 mg by mouth three times a day. cephALEXin (KEFLEX) 500 mg capsule Take 500 mg by mouth three times a day. blood sugar diagnostic (BLOOD GLUCOSE TEST) test strip Test blood sugar(s) 2 times daily. Dx: Type 2 DM - Controlled E11.9 Insulin: Yes ammonium lactate (LAC-HYDRIN) 12 % lotion Apply 1 application to affected area as needed for Dry Skin. melatonin 3 mg Take by mouth daily at bedtime. COMPOUNDED PRESCRIPTION Cock up wrist splint, right Medium. To be worn nightly to prevent carpal tunnel symptoms. Dx: carpal tunnel right Cholecalciferol, Vitamin D3, 1,000 unit cap Take 1 capsule by mouth once daily. Blood-Glucose Meter, Drum-type (ACCU-CHEK COMPACT PLUS CARE) Misc Kit 1 Each. Accu-Check Compact Plus Meter Diagnosis: Diabetes Mellitus ASPIRIN 81 MG TAB Take one (1) tablet daily . No current facility-administered medications on file prior to visit. Social History Social History Tobacco Use Smoking status: Former Current packs/day: 0.00 Average packs/day: 1 pack/day for 21.0 years (21.0 ttl pk-yrs) Types: Cigarettes Start date: 11/23/1952 Quit date: 09/19/1973 Years since quittin.0 Smokeless tobacco: Never Vaping Use Vaping status: Never Used Substance Use Topics Alcohol use: Yes Comment: occas glass of wine Drug use: No Review of Symptoms REVIEW OF SYSTEMS GENERAL: No weight loss, malaise or fevers RESPIRATORY: Negative for cough, hemoptysis, wheezing, COPD, dyspnea or shortness of breath CARDIOVASCULAR: Negative for chest pain, leg swelling, hypertension, CHF or palpitations GI: No nausea, vomiting, or diarrhea SKIN: Negative for lesions, rash, and itching EXAM: BP 106/58 Pulse 73 Resp 16 Wt 71.8 kg (158 lb 6.4 oz) SpO2 98% BMI 29.93 kg/m General Appearance: Well appearing, alert, in no acute distress, well-hydrated, well nourished.. Skin: Skin color, texture, turgor normal, no suspicious rashes or lesions. Lungs: Lungs clear to auscultation. No wheezing, rhonchi, rales.. Heart: RRR without murmur, gallop, or rubs. No ectopy. Abdomen: Normal abdominal exam, Abdomen soft, non-tender. Bowel sounds normal. No masses, organomegaly. Health Maintenance List Depression Screening Never done Anxiety Screening Never done Advance Directive Discussion due on 09/19/2024 DTaP,Tdap,Td Vaccine(2 - Tdap) due on 11/15/2024 RSV Vaccine(1 - 1-dose 75+ series) due on 11/15/2024 Shingrix Vaccine(2 of 2) due on 11/15/2024 Dilated Retinal Exam due on 11/15/2024 HbA1C due on 11/16/2024 LDL Cholesterol due on 12/19/2024 Urine Albumin:Creatinine Ratio due on 08/17/2025 Diabetic Foot Exam due on 08/17/2025 Bone Density Screening Completed Influenza Vaccine Completed Covid-19 Vaccine Completed Pneumococcal Vaccine: 50+ Completed Data reviewed Latest Ref Rng 08/17/2024 WBC 3.70 - 11.00 k/uL 6.03 RBC 3.90 - 5.20 m/uL 3.76 (L) Hemoglobin 11.5 - 15.5 g/dL 11.6 Hematocrit 36.0 - 46.0 % 35.5 (L) MCV 80.0 - 100.0 fL 94.4 MCH 26.0 - 34.0 pg 30.9 MCHC 30.5 - 36.0 g/dL 32.7 RDW-CV 11.5 - 15.0 % 14.5 Platelet Count 150 - 400 k/uL 207 MPV 9.0 - 12.7 fL 10.6 Neut% % 61.8 Abs Neut (ANC) 1.45 - 7.50 k/uL 3.73 Lymph% % 26.7 Abs Lymph 1.00 - 4.00 k/uL 1.61 [place]% % 8.1 Abs [place] <0.87 k/uL 0.49 Eosin% % 2.5 Abs Eosin <0.46 k/uL 0.15 Baso% % 0.7 Abs Baso <0.11 k/uL 0.04 Immature Gran % % 0.2 IMMATURE GRANS (ABS) <0.10 k/uL <0.03 NRBC /100 WBC 0.0 Absolute nRBC <0.01 k/uL <0.01 DTYPE Auto Protein, Total 6.3 - 8.0 g/dL 6.9 Albumin 3.9 - 4.9 g/dL 4.4 Calcium 8.5 - 10.2 mg/dL 9.6 Bilirubin, Total 0.2 - 1.3 mg/dL 0.4 Alkaline Phosphatase 34 - 123 U/L 80 AST 13 - 35 U/L 18 ALT 7 - 38 U/L 8 Glucose 74 - 99 mg/dL 91 BUN 7 - 21 mg/dL 23 (H) Creatinine 0.58 - 0.96 mg/dL 1.22 (H) Sodium 136 - 144 mmol/L 141 Potassium 3.7 - 5.1 mmol/L 3.9 Chloride 98 - 107 mmol/L 103 CO2 22 - 30 mmol/L 23 Anion Gap 8 - 15 mmol/L 15 eGFR >=60 mL/min/1.73m 43 (L) Creatinine, Ur Random (UCRR) 20.0 - 300.0 mg/dL 103.2 Albumin, Urine Random mg/L 15.1 Albumin/Creat Ratio <30 mg/g 15 Hemoglobin A1C 4.3 - 5.6 % 8.8 (H) Estimated Average Glucose mg/dL 206 Ferritin 14.7 - 205.1 ng/mL 257.0 (H) Legend: (L) Low (H) High ASSESSMENT/PLAN: 1. DM type 2 with diabetic peripheral neuropathy (HCC) - ICD9: 250.60, 357.2, ICD10: E11.42 (primary diagnosis) Patient with continued hypoglycemic episodes. Will reduce her Lantus from 28 to 24 units instead, start meal time insulin as previously ordered, and have her call in 2-3 weeks with update on readings. Should be checking sugars before meals and before bed. - LANTUS SOLOSTAR U-100 INSULIN 100 UNIT/ML (3 ML) SUBCUTANEOUS PEN 2. Numbness and tingling in left hand - ICD9: 782.0, ICD10: R20.0, R20.2 Stable. Not improving with conservative management. Obtain EMG as ordered and will have her f/u with ortho if confirmed carpal tunnel. Maribel Fay MD [facility] encounterA[facility] Tele[facility] encounter Note * Telephone Encounter - Cris Bagley - 09/17/2024 8:50 AM EST 10/08 EMG appt needs rescheduled. 1st attempt, LVM on pts phone and daughter (HPOA), Cristobal's home phone. [facility]12-30-[facility] Miscellaneous Notes* Telephone Encounter - Cris Bagley - 09/17/2024 8:50 AM EST 10/08 EMG appt needs rescheduled. 1st attempt, LVM on pts phone and daughter (HPOA), Cristobal's home phone. documented in this encounterA[facility]12-27-2024 NoteHNO ID: [id number] Author: VERENICE WHITFIELD MA Service: ? Author Type: Cost Accounting Manager Type: Progress Notes Filed: 09/14/2024 14:57 Note Text: POPULATION HEALTH NAVIGATION OUTREACH Action/FYI msg to schedule wellness Reason for Outreach Care Gap/HCC or Scheduling Wellness Visits Care Gaps due: Medicare Annual Wellness Visit Patient Contacted: Unable or unnecessary to reach patient: Unable to leave message [employer] Direct message sent Navigation Signature: Verenice Whitfield MA September 14, 2024 2:57 [facility]CM[facility] History of Present illness Narrative* Verenice Whitfield MA - 09/14/2024 2:56 PM EST POPULATION HEALTH NAVIGATION OUTREACH Action/FYI msg to schedule wellness Reason for Outreach Care Gap/HCC or Scheduling Wellness Visits Care Gaps due: Medicare Annual Wellness Visit Patient Contacted: Unable or unnecessary to reach patient: Unable to leave message [employer] Direct message sent Navigation Signature: Verenice Whitfield MA September 14, 2024 2:57 PM documented in this encounterA[facility]12-27-2024 NotePatient Outreach (NETNAV) CHARLETTE FARMER ([id number]) 1935 F Date Time Provider Department 09/14/24 VERENICE WHITFIELD During your visit today, we recorded the following information about you: Verenice Whitfield MA 09/14/2024 2:57 PM Signed POPULATION HEALTH NAVIGATION OUTREACH Action/FYI msg to schedule wellness Reason for Outreach Care Gap/HCC or Scheduling Wellness Visits Care Gaps due: Medicare Annual Wellness Visit Patient Contacted: Unable or unnecessary to reach patient: Unable to leave message [employer] Direct message sent Navigation Signature: Verenice Whitfield MA September 14, 2024 2:57 PM Allergies As of Date: 09/14/2024 Noted Allergy Reaction LIPITOR (ATORVASTATIN) 07/19/2007 5 - Intolerance Comments: myalgia SIMVASTATIN 07/19/2007 5 - Intolerance Comments: myalgia Date Reviewed: 09/06/2024 Reviewed by: Alessandra Butcher LPN - Fully Assessed Reason for Visit: Population Health Navigation Outreach [3910] Cmt: Candice lorenzo Prescriptions as of 09/14/2024 - insulin lispro (HUMALOG U-100 INSULIN) 100 unit/mL injection Inject 4 Units subcutaneously three times a day before meals. - insulin glargine (LANTUS SOLOSTAR U-100 INSULIN) 100 unit/mL (3 mL) Inject 26 Units subcutaneously daily at bedtime. - Insulin Volborg, Disposable, (PEN NEEDLE) 29 gauge x 1/2 One needle once daily. Dx: 250.02 Insulin: yes - gabapentin (NEURONTIN) 600 mg tablet Take 1 tablet by mouth two times a day for 90 days. - omeprazole (PRILOSEC) 20 mg capsule Take 1 capsule by mouth once daily. - cyanocobalamin (VITAMIN B-12) 1,000 mcg tab Take one tablet every other day Dx: pernicious anemia - allopurinol (ZYLOPRIM) 100 mg tablet Take 1 tablet by mouth two times a day. - hydroCHLOROthiazide 12.5 mg capsule Take 1 capsule by mouth once daily. - lisinopril 2.5 mg tablet Take 1 tablet by mouth once daily. - rosuvastatin (CRESTOR) 20 mg tablet Take 1 tablet by mouth daily at bedtime. - pramipexole (MIRAPEX) 0.25 mg tablet Take 1 tablet by mouth daily at bedtime. - blood sugar diagnostic (TRUE METRIX GLUCOSE TEST STRIP) test strip Test once daily DX:250.02 Insulin: Yes - Lancets lancets Pt requests Truedraw lancets. Test blood sugar(s) 1 times daily. Dx: Other DM Code 250.02 Insulin: Yes - Lancets (ACCU-CHEK SOFTCLIX LANCETS) lancets Use Three times daily to check blood sugar - Acetaminophen 500 mg cap Take 2 capsules by mouth two times a day as needed for pain. Reports will utilize 1 500mg tab 1-2 times in between the 1000 mg doses - Miscellaneous Medical Supply (BLOOD PRESSURE CUFF) 1 Each once daily. - ondansetron (ZOFRAN) 4 mg tablet Take 4 mg by mouth every 8 hours as needed for nausea/vomiting. - meclizine (ANTIVERT) 25 mg tab Take 25 mg by mouth three times a day. - cephALEXin (KEFLEX) 500 mg capsule Take 500 mg by mouth three times a day. - blood sugar diagnostic (BLOOD GLUCOSE TEST) test strip Test blood sugar(s) 2 times daily. Dx: Type 2 DM - Controlled E11.9 Insulin: Yes - ammonium lactate (LAC-HYDRIN) 12 % lotion Apply 1 application to affected area as needed for Dry Skin. - melatonin 3 mg Take by mouth daily at bedtime. - COMPOUNDED PRESCRIPTION Cock up wrist splint, right Medium. To be worn nightly to prevent carpal tunnel symptoms. Dx: carpal tunnel right - Cholecalciferol, Vitamin D3, 1,000 unit cap Take 1 capsule by mouth once daily. - Blood-Glucose Meter, Drum-type (ACCU-CHEK COMPACT PLUS CARE) Misc Kit 1 Each. Accu-Check Compact Plus Meter Diagnosis: Diabetes Mellitus - ASPIRIN 81 MG TAB Take one (1) tablet daily . Problem List As Of Date 09/14/2024 Noted Resolved Other specified disorders of rotator cuff syndr*02/16/2006 10/18/2016 Malignant neoplasm of corpus uteri, except isth* 11/24/2015 HYPERLIPIDEMIA NEC/NOS [E78.5] 10/14/2015 Lumbago [M54.50] 06/15/2016 DIABETES MELLITUS TYPE II UNCONTR UNCOMPL [IMO0* 07/18/2014 HYPERTENSION NOS [I10] 10/14/2015 Special screening for malignant neoplasms, colo*11/12/2008 11/24/2015 Benign neoplasm of colon [D12.6] 11/12/2008 11/24/2015 Diverticulosis of colon [K57.30] 11/12/2008 Internal hemorrhoids without mention of complic*11/12/2008 10/14/2015 Tubular adenoma of rectum [D12.8] 02/25/2011 11/24/2015 Pernicious anemia [D51.0] 08/25/2012 Medicare annual wellness visit, initial [Z00.00]09/28/2013 11/24/2015 Stage 3b chronic kidney disease (HCC) [N18.32] 04/12/2014 PAD (peripheral artery disease) (HCC) [I73.9] 05/02/2014 Medicare annual wellness visit, subsequent [Z00*10/11/2014 11/24/2015 Diabetes mellitus with neuropathy (HCC) [E11.40]10/11/2014 11/24/2015 Essential hypertension [I10] 10/14/2015 Mixed hyperlipidemia [E78.2] 10/14/2015 DM type 2 with diabetic peripheral neuropathy (*11/12/2015 Trigger middle finger of right hand [M65.331] 11/20/2015 Trigger finger, left ring finger [M65 (more content not included)...[facility] [place]12-19-2024 Instructions* Patient Instructions* Maribel Fay MD - 09/06/2024 10:48 AM EST Please check your sugars before each meal and before bed. Please write down your readings and bringwith you to your next appointment. Please call with sugars less than 80 or with symptoms of low sugar. documented in this encounterA[facility]12-19-2024 NoteHNO ID: [id number] Author: MARIBEL FAY MD Service: ? Author Type: Physician Type: Progress Notes Filed: 09/06/2024 11:59 Note Text: Chief Complaint Patient presents with: Follow Up: blood sugars and left hand issues, balance issues This AM 128 blood sugar and 1 week ago had a low of 77 HPI Charlette Farmer is a 89 year old female who presents here today for above complaints. Patients dose of Lantus increased from 24 to 28 units after OV 2-3 weeks ago when A1c was high at 8.8. Patient wanted to schedule OV instead of calling with home readings. Since increasing her dosage, she has had 2 low sugars into the 60s and 70s with symptoms of shaking and sweating. Improved with orange juice. Other fasting readings running 98-152 with typical readings <130. Before bed, sugars have been higher in the 200-280s. States she has been eating more jose cruz cookies and not been complaint with her diet. Also complaining today of numbness and tingling in her left 1-3rd fingers which started several months ago. Has not been able to aldo with this. Denies injury, fever/chills, pain, erythema, bruising. Notes that she had a fall on Tuesday when getting out of a chair at [place]. Did not hit her head or have LOC. No joint pain or swelling from this fall. Using cane for ambulation mostly. Has walker at home as well. Past medical history, appointments, medications, allergies reviewed. Previous Medical History PAST MEDICAL HISTORY Diagnosis Date Arthritis Benign neoplasm of colon tubular adenoma Carpal tunnel syndrome, right Chronic kidney disease, stage 3 (HCC) Diverticulitis 10/10/2020 Diverticulosis of colon (without mention of hemorrhage) Gout History of colonic polyps 2023, hyperplastic and tubular adenoma History of transfusion Internal hemorrhoids without mention of complication Lumbago Malignant neoplasm of corpus uteri, except isthmus (HCC) 1996 Uterine cancer Other and unspecified hyperlipidemia PAD (peripheral artery disease) ([facility]) 2013 Mild LLE Pernicious anemia Restless leg syndrome Rotator cuff tendinitis left Trigger finger, right middle finger Seen by Dr. Burns 2015 Type II or unspecified type diabetes mellitus without mention of complication, uncontrolled Unspecified essential hypertension Previous Surgical History PAST SURGICAL HISTORY Procedure Laterality Date ABDOMINAL SURGERY HX APPENDECTOMY 1952 BACK SURGERY HX CHOLECYSTECTOMY 11/28/2011 COLONOSCOPY 07/12/2024 COLONOSCOPY FLX DX W/COLLJ SPEC WHEN PFRMD 2001 out of state sigmoidoscopy COLONOSCOPY FLX DX W/COLLJ SPEC WHEN PFRMD 10/22/2013 Colonoscopy COLONOSCOPY GEN ANES 01/07/2021 Dr. Phillips, Polyps. repeat in 3 years. COLONOSCOPY W/BIOPSY SINGLE/MULTIPLE 11/12/2008 DILATION AND CURETTAGE DXAND/THER NONOBSTETRIC 1965 Dilation AND curettage EGD 01/07/2021 EGD 07/12/2024 EYE SURGERY HX LAMINECTOMY W/O FFD 1/2 VERT SEG LUMBAR 1971 Laminectomy, lumbar, fusion PAST SURGICAL HISTORY OF Left 09/01/2017 Trigger finger release of left ringer finger REVISE MEDIAN N/CARPAL TUNNEL SURG Right 05/31/2023 TONSILLECTOMY HX TUBAL LIGATION HX VAGINAL HYSTERECTOMY VAGINAL HYSTERECTOMY UTERUS 250 GM/< 1997 Hysterectomy, vaginal Family History FAMILY HISTORY Problem Relation Age of Onset Cancer Mother breast, lung cancer was heavy smoker Diabetes Maternal Grandmother Diabetes Maternal Grandfather other (no siblings) Maternal Grandfather Patient Allergies ALLERGIES Allergen Reactions Lipitor [Atorvastat* Intolerance myalgia Simvastatin Intolerance myalgia Current Medications Current Outpatient Medications on File Prior to Visit Medication Sig Insulin Volborg, Disposable, (PEN NEEDLE) 29 gauge x 1/2 One needle once daily. Dx: 250.02 Insulin: yes insulin glargine (LANTUS SOLOSTAR U-100 INSULIN) 100 unit/mL (3 mL) Inject 28 Units subcutaneously daily at bedtime. gabapentin (NEURONTIN) 600 mg tablet Take 1 tablet by mouth two times a day for 90 days. omeprazole (PRILOSEC) 20 mg capsule Take 1 capsule by mouth once daily. cyanocobalamin (VITAMIN B-12) 1,000 mcg tab Take one tablet every other day Dx: pernicious anemia allopurinol (ZYLOPRIM) 100 mg tablet Take 1 tablet by mouth two times a day. hydroCHLOROthiazide 12.5 mg capsule Take 1 capsule by mouth once daily. lisinopril 2.5 mg tablet Take 1 tablet by mouth once daily. rosuvastatin (CRESTOR) 20 mg tablet Take 1 tablet by mouth daily at bedtime. pramipexole (MIRAPEX) 0.25 mg tablet Take 1 tablet by mouth daily at bedtime. blood sugar diagnostic (TRUE METRIX GLUCOSE TEST STRIP) test strip Test once daily DX:250.02 Insulin: Yes Lancets lancets Pt requests Truedraw lancets. Test blood sugar(s) 1 times daily. Dx: Other DM Code 250.02 Insulin: Yes Lancets (ACCU-CHEK SOFTCLIX LANCETS) lancets Use Three times daily to check blood sugar Acetaminophen 500 mg cap Take 2 cap (more content not included)...[facility] [place]12-19-2024 History of Present illness Narrative* Maribel Fay MD - 09/06/2024 10:26 AM EST Chief Complaint Patient presents with: Follow Up: blood sugars and left hand issues, balance issues This AM 128 blood sugar and 1 week ago had a low of 77 HPI Charlette Farmer is a 89 year old female who presents here today for above complaints. Patients dose of Lantus increased from 24 to 28 units after OV 2-3 weeks ago when A1c was high at 8.8. Patient wanted to schedule OV instead of calling with home readings. Since increasing her dosage, she has had 2 low sugars into the 60s and 70s with symptoms of shaking and sweating. Improved withorange juice. Other fasting readings running 98-152 with typical readings <130. Before bed, sugars have been higher in the 200-280s. States she has been eating more jose cruz cookies and not been complaint with her diet. Also complaining today of numbness and tingling in her left 1-3rd fingers which started several months ago. Has not been able to aldo with this. Denies injury, fever/chills, pain, erythema, bruising. Notes that she had a fall on Tuesday when getting [place] of a chair [place]. Did not hit her head or have LOC. No joint pain or swelling from this fall. Using cane for ambulation mostly. Has walker at home as well. Past medical history, appointments, medications, allergies reviewed. Previous Medical History PAST MEDICAL HISTORY Diagnosis Date Arthritis Benign neoplasm of colon tubular adenoma Carpal tunnel syndrome, right Chronic kidney disease, stage 3 (HCC) Diverticulitis 10/10/2020 Diverticulosis of colon (without mention of hemorrhage) Gout History of colonic polyps 2023, hyperplastic and tubular adenoma History of transfusion Internal hemorrhoids without mention of complication Lumbago Malignant neoplasm of corpus uteri, except isthmus (HCC) 1996 Uterine cancer Other and unspecified hyperlipidemia PAD (peripheral artery disease) (HCC) 2013 Mild LLE Pernicious anemia Restless leg syndrome Rotator cuff tendinitis left Trigger finger, right middle finger Seen by Dr. Burns 2015 Type II or unspecified type diabetes mellitus without mention of complication, uncontrolled Unspecified essential hypertension Previous Surgical History PAST SURGICAL HISTORY Procedure Laterality Date ABDOMINAL SURGERY HX APPENDECTOMY 195 BACK SURGERY HX CHOLECYSTECTOMY 11/28/2011 COLONOSCOPY 07/12/2024 COLONOSCOPY FLX DX W/COLLJ SPEC WHEN PFRMD 2001 out of state sigmoidoscopy COLONOSCOPY FLX DX W/COLLJ SPEC WHEN PFRMD 10/22/2013 Colonoscopy COLONOSCOPY GEN ANES 01/07/2021 Dr. Phillips, Polyps. repeat in 3 years. COLONOSCOPY W/BIOPSY SINGLE/MULTIPLE 11/12/2008 DILATION & CURETTAGE DX&/THER NONOBSTETRIC 1965 Dilation & curettage EGD 01/07/2021 EGD 07/12/2024 EYE SURGERY HX LAMINECTOMY W/O FFD 09/20 VERT SEG LUMBAR 1971 Laminectomy, lumbar, fusion PAST SURGICAL HISTORY OF Left 09/01/2017 Trigger finger release of left ringer finger REVISE MEDIAN N/CARPAL TUNNEL SURG Right 05/31/2023 TONSILLECTOMY HX TUBAL LIGATION HX VAGINAL HYSTERECTOMY VAGINAL HYSTERECTOMY UTERUS 250 GM/< 1996 Hysterectomy, vaginal Family History FAMILY HISTORY Problem Relation Age of Onset Cancer Mother breast, lung cancer was heavy smoker Diabetes Maternal Grandmother Diabetes Maternal Grandfather other (no siblings) Maternal Grandfather Patient Allergies ALLERGIES Allergen Reactions Lipitor [Atorvastat* Intolerance myalgia Simvastatin Intolerance myalgia Current Medications Current Outpatient Medications on File Prior to Visit Medication Sig Insulin Volborg, Disposable, (PEN NEEDLE) 29 gauge x 1/2 One needle once daily. Dx: 250.02 Insulin: yes insulin glargine (LANTUS SOLOSTAR U-100 INSULIN) 100 unit/mL (3 mL) Inject 28 Units subcutaneously daily at bedtime. gabapentin (NEURONTIN) 600 mg tablet Take 1 tablet by mouth two times a day for 90 days. omeprazole (PRILOSEC) 20 mg capsule Take 1 capsule by mouth once daily. cyanocobalamin (VITAMIN B-12) 1,000 mcg tab Take one tablet every other day Dx: pernicious anemia allopurinol (ZYLOPRIM) 100 mg tablet Take 1 tablet by mouth two times a day. hydroCHLOROthiazide 12.5 mg capsule Take 1 capsule by mouth once daily. lisinopril 2.5 mg tablet Take 1 tablet by mouth once daily. rosuvastatin (CRESTOR) 20 mg tablet Take 1 tablet by mouth daily at bedtime. pramipexole (MIRAPEX) 0.25 mg tablet Take 1 tablet by mouth daily at bedtime. blood sugar diagnostic (TRUE METRIX GLUCOSE TEST STRIP) test strip Test once daily DX:250.02 Insulin: Yes Lancets lancets Pt requests Truedraw lancets. Test blood sugar(s) 1 times daily. Dx: Other DM Code 250.02 Insulin: Yes Lancets (ACCU-CHEK SOFTCLIX LANCETS) lancets Use Three times daily to check blood sugar Acetaminophen 500 mg cap Take 2 capsules by mouth two times a day as needed for pain. Reports will utilize 1 500mg tab 1-2 times in between the 1000 mg doses Miscellaneous Medical Supply (BLOOD PRESSURE CUFF) 1 Each once daily. ondansetron (ZOFRAN) 4 mg tablet Take 4 mg by mouth every 8 hours as needed for nausea/vomiting. meclizine (ANTIVERT) 25 mg tab Take 25 mg by mouth three times a day. cephALEXin (KEFLEX) 500 mg capsule Take 500 mg by mouth three times a day. blood sugar diagnostic (BLOOD GLUCOSE TEST) test strip Test blood sugar(s) 2 times daily. Dx: Type 2 DM - Controlled E11.9 Insulin: Yes ammonium lactate (LAC-HYDRIN) 12 % lotion Apply 1 application to affected area as needed for Dry Skin. melatonin 3 mg Take by mouth daily at bedtime. COMPOUNDED PRESCRIPTION Cock up wrist splint, right Medium. To be worn nightly to prevent carpal tunnel symptoms. Dx: carpal tunnel right Cholecalciferol, Vitamin D3, 1,000 unit cap Take 1 capsule by mouth once daily. Blood-Glucose Meter, Drum-type (ACCU-CHEK COMPACT PLUS CARE) Misc Kit 1 Each. Accu-Check Compact Plus Meter Diagnosis: Diabetes Mellitus ASPIRIN 81 MG TAB Take one (1) tablet daily . No current facility-administered medications on file prior to visit. Social History Social History Tobacco Use Smoking status: Former Current packs/day: 0.00 Average packs/day: 1 pack/day for 21.0 years (21.0 ttl pk-yrs) Types: Cigarettes Start date: 11/23/1952 Quit date: 09/19/1973 Years since quittin.0 Smokeless tobacco: Never Vaping Use Vaping status: Never Used Substance Use Topics Alcohol use: Yes Comment: occas glass of wine Drug use: No Review of Symptoms REVIEW OF SYSTEMS See HPI EXAM: BP 112/60 (BP Site: Right Arm, BP Position: Sitting, BP Cuff Size: Large Adult) Pulse 73 Resp 14 Ht 154.9 cm (5' 1) Wt 70.8 kg (156 lb) SpO2 97% BMI 29.48 kg/m General Appearance: Well appearing, alert, in no acute distress, well-hydrated, well nourished.. Skin: Skin color, texture, turgor normal, no suspicious rashes or lesions. Lungs: Lungs clear to auscultation. No wheezing, rhonchi, rales.. Heart: RRR without murmur, gallop, or rubs. No ectopy. Musculoskeletal: No joint swelling, deformity, or tenderness. Decreased sensation to light touch over left 1-3rd finger and palm. Negative tinels. Positive phalens. 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 No TTP over wrist and has normal ROM and 5/5 strength. Health Maintenance List Depression Screening Never done Anxiety Screening Never done Advance Directive Discussion due on 09/19/2023 DTaP,Tdap,Td Vaccine(2 - Tdap) due on 11/15/2024 RSV Vaccine(1 - 1-dose 75+ series) due on 11/15/2024 Shingrix Vaccine(2 of 2) due on 11/15/2024 Dilated Retinal Exam due on 11/15/2024 HbA1C due on 11/16/2024 LDL Cholesterol due on 12/19/2024 Urine Albumin:Creatinine Ratio due on 08/17/2025 Diabetic Foot Exam due on 08/17/2025 Bone Density Screening Completed Influenza Vaccine Completed Covid-19 Vaccine Completed Pneumococcal Vaccine: 50+ Completed Data reviewed Latest Ref Rng 08/17/2024 WBC 3.70 - 11.00 k/uL 6.03 RBC 3.90 - 5.20 m/uL 3.76 (L) Hemoglobin 11.5 - 15.5 g/dL 11.6 Hematocrit 36.0 - 46.0 % 35.5 (L) MCV 80.0 - 100.0 fL 94.4 MCH 26.0 - 34.0 pg 30.9 MCHC 30.5 - 36.0 g/dL 32.7 RDW-CV 11.5 - 15.0 % 14.5 Platelet Count 150 - 400 k/uL 207 MPV 9.0 - 12.7 fL 10.6 Neut% % 61.8 Abs Neut (ANC) 1.45 - 7.50 k/uL 3.73 Lymph% % 26.7 Abs Lymph 1.00 - 4.00 k/uL 1.61 [place]% % 8.1 Abs [place] <0.87 k/uL 0.49 Eosin% % 2.5 Abs Eosin <0.46 k/uL 0.15 Baso% % 0.7 Abs Baso <0.11 k/uL 0.04 Immature Gran % % 0.2 IMMATURE GRANS (ABS) <0.10 k/uL <0.03 NRBC /100 WBC 0.0 Absolute nRBC <0.01 k/uL <0.01 DTYPE Auto Protein, Total 6.3 - 8.0 g/dL 6.9 Albumin 3.9 - 4.9 g/dL 4.4 Calcium 8.5 - 10.2 mg/dL 9.6 Bilirubin, Total 0.2 - 1.3 mg/dL 0.4 Alkaline Phosphatase 34 - 123 U/L 80 AST 13 - 35 U/L 18 ALT 7 - 38 U/L 8 Glucose 74 - 99 mg/dL 91 BUN 7 - 21 mg/dL 23 (H) Creatinine 0.58 - 0.96 mg/dL 1.22 (H) Sodium 136 - 144 mmol/L 141 Potassium 3.7 - 5.1 mmol/L 3.9 Chloride 98 - 107 mmol/L 103 CO2 22 - 30 mmol/L 23 Anion Gap 8 - 15 mmol/L 15 eGFR >=60 mL/min/1.73m 43 (L) Creatinine, Ur Random (UCRR) 20.0 - 300.0 mg/dL 103.2 Albumin, Urine Random mg/L 15.1 Albumin/Creat Ratio <30 mg/g 15 Hemoglobin A1C 4.3 - 5.6 % 8.8 (H) Estimated Average Glucose mg/dL 206 Ferritin 14.7 - 205.1 ng/mL 257.0 (H) Legend: (L) Low (H) High ASSESSMENT/PLAN: 1. DM type 2 with diabetic peripheral neuropathy (HCC) - ICD9: 250.60, 357.2, ICD10: E11.42 (primary diagnosis) - Uncontrolled Uncontrolled. Getting low sugars with higher dose of Lantus. Will reduce to 26 units and start mealtime insulin as ordered. - Blood glucose monitoring on a four times daily schedule. Refusing CGM. - Counseled on healthy diet and regular exercise - Discussed need for and benefit of weight loss. BMI 29.48 kg/(m^2) - Discussed diabetic education issues of diabetes complications and monitoring required, hypoglycemic/hyperglycemic symptoms, medication-specific side effects and monitoring, and diabetic sick day rules - Follow up in 3 weeks, sooner should any other issues arise. - INSULIN LISPRO (U-100) 100 UNIT/ML SUBCUTANEOUS SOLUTION - LANTUS SOLOSTAR U-100 INSULIN 100 UNIT/ML (3 ML) SUBCUTANEOUS PEN 2. Numbness and tingling in left hand - ICD9: 782.0, ICD10: R20.0, R20.2 Likely carpal tunnel. States left hand is worse than right when she had surgery in the past. Will start with ice, home stretches and splinting at night. Will obtain EMG to confirm dx and f/u with ortho to discuss surgery vs injection. - EMG(NEURO/NI) - CONSULT TO ORTHOPAEDICS - COCK-UP WRIST SPLINT 3. At high risk for falls - ICD9: V15.88, ICD10: Z91.81 No joint pain, headache, or signs of injury since fall a few days ago. Refusing PT referral today. Will continue using cane for ambulation. Red flags for re- assessment reviewed with patient in detail. Maribel Fay MD [facility] Tele[facility] encounter Note * Telephone Encounter - Angelika Cartwright - 08/30/2024 12:15 PM EST Prescription Refill Information The patient has been identified by name and date of : Yes Caregiver verified no other encounters exist for this prescription request: Yes Caregiver confirmed with patient/requestor that no other refills are due, in the near future, with this provider at this time: Yes The last office visit in the department: 08-17-24 Does the patient have a future office visit with this provider/department: Yes Requested Prescriptions Pending Prescriptions Disp Refills Insulin Volborg, Disposable, (PEN NEEDLE) 29 gauge x 1/2 100 Each 3 Sig: One needle once daily. Dx: 250.02 Insulin: yes Angelika Cartwright August 30, 2024 12:16 PM [facility]12-12-2024 Miscellaneous Notes* Telephone Encounter - Angelika Cartwright - 08/30/2024 12:15 PM EST Prescription Refill Information The patient has been identified by name and date of : Yes Caregiver verified no other encounters exist for this prescription request: Yes Caregiver confirmed with patient/requestor that no other refills are due, in the near future, with this provider at this time: Yes The last office visit in the department: 08-17-24 Does the patient have a future office visit with this provider/department: Yes Requested Prescriptions Pending Prescriptions Disp Refills Insulin Volborg, Disposable, (PEN NEEDLE) 29 gauge x 1/2 100 Each 3 Sig: One needle once daily. Dx: 250.02 Insulin: yes Angelika Cartwright August 30, 2024 12:16 PM documented in [facility] encounterA[facility]12[facility] Telephone encounter Note * Telephone Encounter - Gracia Salamanca RN - 08/26/2024 9:37 AM EST Reason for Call: Blood glucose 68 at 9:30 am. Blood glucose recheck was 84 at 9:50 am. Outcome: Patient advised to call PCP within 24 hours. Patient understands instructions. Closing given. Reason for Disposition [1] Blood glucose 70 mg/dL (3.9 mmol/L) or below OR symptomatic, now improved with Care Advice AND [2] cause unknown Answer Assessment - Initial Assessment Questions 1. SYMPTOMS: Shaking and nervous feeling. 2. ONSET: Patient woke up at 8:45 am and then noticed symptoms after taking her blood sugar at 9:30am. 3. BLOOD GLUCOSE: Blood glucose was 68 at around 9:30 am. Rechecked blood sugar at 9:50 am while onphone after a glass of orange juice it was reading 84. 4. USUAL RANGE: Usually between 90-120 in the mornings. 5. TYPE 1 or 2: Type 2 6. INSULIN: 28 units of lantus at midnight last night. 7. DIABETES PILLS: No diabetes pills. 8. OTHER SYMPTOMS: Denies. 9. LOW BLOOD GLUCOSE TREATMENT: Patient states she will have orange juice when she is off the phone. Advised patient to drink the orange juice now and patient was drinking while on the phone with me. 10. FOOD: 7 pm last night. 11. ALONE: Patient lives alone and no one is at her house at this time. She states she has life alert button she wears. She also states that later today she [place]. Protocols used: Diabetes - Low Blood [id number] [facility]12-08-2024 Miscellaneous Notes* Telephone Encounter - Gracia Salamanca RN - 08/26/2024 9:37 AM EST Reason for Call: Blood glucose 68 at 9:30 am. Blood glucose recheck was 84 at 9:50 am. Outcome: Patient advised to call PCP within 24 hours. Patient understands instructions. Closing given. Reason for Disposition [1] Blood glucose 70 mg/dL (3.9 mmol/L) or below OR symptomatic, now improved with Care Advice AND [2] cause unknown Answer Assessment - Initial Assessment Questions 1. SYMPTOMS: Shaking and nervous feeling. 2. ONSET: Patient woke up at 8:45 am and then noticed symptoms after taking her blood sugar at 9:30am. 3. BLOOD GLUCOSE: Blood glucose was 68 at around 9:30 am. Rechecked blood sugar at 9:50 am while onphone after a glass of orange juice it was reading 84. 4. USUAL RANGE: Usually between 90-120 in the mornings. 5. TYPE 1 or 2: Type 2 6. INSULIN: 28 units of lantus at midnight last night. 7. DIABETES PILLS: No diabetes pills. 8. OTHER SYMPTOMS: Denies. 9. LOW BLOOD GLUCOSE TREATMENT: Patient states she will have orange juice when she is off the phone. Advised patient to drink the orange juice now and patient was drinking while on the phone with me. 10. FOOD: 7 pm last night. 11. ALONE: Patient lives alone and no one is at her house at this time. She states she has life alert button she wears. She also states that later today she [place] a [place]. Protocols used: Diabetes - Low Blood [id number] documented in this encounterA[facility]12-04-2024 Telephone encounter Note * Telephone Encounter - Nataliia Burnham RN - 08/22/2024 2:00 PM EST Patient returned call and given provider's message below and patient verbalized understanding. Apptmade for 09/06/[address] Fay. Edd Burnham RN [facility]12-04-2024 Miscellaneous Notes* Telephone Encounter - Nataliia Burnham RN - 08/22/2024 2:00 PM EST Patient returned call and given provider's message below and patient verbalized understanding. Apptmade for 09/06/[address] Fay. Edd Burnham RN * Telephone Encounter - Duyen Bey LPN - 08/21/2024 11:44 AM EST Message left for patient to return call to review message in it's entirety with her. Duyen Bey LPN * Telephone Encounter - Montserrat Perales LPN - 08/20/2024 3:56 PM EST Patient returned call and went over part of results and notes and her call dropped. Called patient and left message to return call was only half way through all the results. * Telephone Encounter - Duyen Bey LPN - 08/20/2024 3:35 PM EST Message left for patient to return call to review provider's message. Duyen Bey LPN * Telephone Encounter - Maribel Fay MD - 08/20/2024 2:52 PM EST Despite patients improved glucose readings at home, her A1c is actually up from last check to 8.8. I would recommend increasing her Lantus to 28 units at bedtime and have her check sugars fasting andbefore bed. Patient to call with updated sugar readings in 2-3 weeks, or sooner with any sugars <80. Patient can schedule OV instead of calling if she would like. Continue to work on low carb diet. CKD stable in stage III range. Recommend low sodium diet <2,000 mg per day, avoidance of NSAIDs,and increased water intake. Other labs normal. documented in this encounterA[facility]12-03-2024 Telephone encounter Note * Telephone Encounter - Duyen Bey LPN - 08/21/2024 11:44 AM EST Message left for patient to return call to review message in it's entirety with her. Duyen Bey LPN [facility]12-02-2024 Telephone encounter Note* Telephone Encounter - Montserrat Perales LPN - 08/20/2024 3:56 PM EST Patient returned call and went over part of results and notes and her call dropped. Called patient and left message to return call was only half way through all the results. [facility]12-02-2024 Telephone encounter Note* Telephone Encounter - Duyen Bey LPN - 08/20/2024 3:35 PM EST Message left for patient to return call to review provider's message. Duyen Bey LPN [facility]12-02-2024 Telephone encounter Note* Telephone Encounter - Maribel Fay MD - 08/20/2024 2:52 PM EST Despite patients improved glucose readings at home, her A1c is actually up from last check to 8.8. I would recommend increasing her Lantus to 28 units at bedtime and have her check sugars fasting andbefore bed. Patient to call with updated sugar readings in 2-3 weeks, or sooner with any sugars <80. Patient can schedule OV instead of calling if she would like. Continue to work on low carb diet. CKD stable in stage III range. Recommend low sodium diet <2,000 mg per day, avoidance of NSAIDs,and increased water intake. Other labs normal. [facility]11-29-2024 NoteHNO ID: [id number] Author: MARIBEL FAY MD Service: ? Author Type: Physician Type: Progress Notes Filed: 08/23/2024 09:08 Note Text: Chief Complaint Patient presents with: Follow Up: 3 month HPI Charlette Farmer is a 89 year old female who presents here today for Above Complaints.. DIABETES MELLITUS: Ms. Farmer was last seen 3 months ago. Since our last visit she denies excessive thirst or increased frequency of urination, new or unusual visual symptoms, and low sugar/hypoglycemic reactions. Admits to numbness and tingling in her legs which she takes Gabapentin BID for, but does not help much. Would like higher dosage. . Follows a diabetic diet most of the time. She is compliant with medication(s) and is tolerating med(s) without any side effects. She reports checking her glucose on a once a day schedule with sugars in the fasting 100-180 range with typical readings in the 120-150. Had high readings in the 200's when she had thanksgiving with her family. Patient's last HgA1C was Hemoglobin A1C (%) Date Value 05/15/2024 8.3 12/20/2023 6.5 11/03/2021 7.9 07/22/2021 7.8 ) Last Ophthalmology exam was within the past 12 months Last Podiatry exam was within the past 12 months Patient had recent EGD and colonoscopy for mild anemia with positive FOBT. Found 2 polyps on colonoscopy. EGD unremarkable. No further workup needed. Repeat CBC showed resolved anemia. Started on PPI at f/u with general surgery. RLS: improved with mirapex. No recent gout flares. Up to date on vaccinations. Due for routine labs. Past medical history, appointments, medications, allergies reviewed. Previous Medical History PAST MEDICAL HISTORY Diagnosis Date Arthritis Benign neoplasm of colon tubular adenoma Carpal tunnel syndrome, right Chronic kidney disease, stage 3 (HCC) Diverticulitis 10/10/2020 Diverticulosis of colon (without mention of hemorrhage) Gout History of transfusion Internal hemorrhoids without mention of complication Lumbago Malignant neoplasm of corpus uteri, except isthmus (HCC) 1996 Uterine cancer Other and unspecified hyperlipidemia PAD (peripheral artery disease) (HCC) 2013 Mild LLE Pernicious anemia Restless leg syndrome Rotator cuff tendinitis left Trigger finger, right middle finger Seen by Dr. Burns 2015 Type II or unspecified type diabetes mellitus without mention of complication, uncontrolled Unspecified essential hypertension Previous Surgical History PAST SURGICAL HISTORY Procedure Laterality Date ABDOMINAL SURGERY HX APPENDECTOMY 195 BACK SURGERY HX CHOLECYSTECTOMY 11/28/2011 COLONOSCOPY 07/12/2024 COLONOSCOPY FLX DX W/COLLJ SPEC WHEN PFRMD 2001 out of state sigmoidoscopy COLONOSCOPY FLX DX W/COLLJ SPEC WHEN PFRMD 10/22/2013 Colonoscopy COLONOSCOPY GEN ANES 01/07/2021 Dr. Phillips, Polyps. repeat in 3 years. COLONOSCOPY W/BIOPSY SINGLE/MULTIPLE 11/12/2008 DILATION AND CURETTAGE DXAND/THER NONOBSTETRIC 1965 Dilation AND curettage EGD 01/07/2021 EGD 07/12/2024 EYE SURGERY HX LAMINECTOMY W/O FFD 1/2 VERT SEG LUMBAR 1971 Laminectomy, lumbar, fusion PAST SURGICAL HISTORY OF Left 09/01/2017 Trigger finger release of left ringer finger REVISE MEDIAN N/CARPAL TUNNEL SURG Right 05/31/2023 TONSILLECTOMY HX TUBAL LIGATION HX VAGINAL HYSTERECTOMY VAGINAL HYSTERECTOMY UTERUS 250 GM/< 1997 Hysterectomy, vaginal Family History FAMILY HISTORY Problem Relation Age of Onset Cancer Mother breast, lung cancer was heavy smoker Diabetes Maternal Grandmother Diabetes Maternal Grandfather other (no siblings) Maternal Grandfather Patient Allergies ALLERGIES Allergen Reactions Lipitor [Atorvastat* Intolerance myalgia Simvastatin Intolerance myalgia Current Medications Current Outpatient Medications on File Prior to Visit Medication Sig omeprazole (PRILOSEC) 20 mg capsule Take 1 capsule by mouth once daily. insulin glargine (LANTUS SOLOSTAR U-100 INSULIN) 100 unit/mL (3 mL) Inject 24 Units subcutaneously daily at bedtime. gabapentin (NEURONTIN) 400 mg capsule Take 1 capsule by mouth two times a day for 180 days. cyanocobalamin (VITAMIN B-12) 1,000 mcg tab Take one tablet every other day Dx: pernicious anemia allopurinol (ZYLOPRIM) 100 mg tablet Take 1 tablet by mouth two times a day. hydroCHLOROthiazide 12.5 mg capsule Take 1 capsule by mouth once daily. lisinopril 2.5 mg tablet Take 1 tablet by mouth once daily. rosuvastatin (CRESTOR) 20 mg tablet Take 1 tablet by mouth daily at bedtime. pramipexole (MIRAPEX) 0.25 mg tablet Take 1 tablet by mouth daily at bedtime. blood sugar diagnostic (TRUE METRIX GLUCOSE TEST STRIP) test strip Test once daily DX:250.02 Insulin: Yes Lancets lancets Pt requests Truedraw lancets. Test blood sugar(s) 1 times daily. Dx: Other DM Code 250.02 Insulin: Yes Lancets (ACCU-CHEK SOFTCLIX LANCETS) lancets Use Three times daily to check (more content not included)...[facility] [place]11-29-[facility]24 History of Present illness Narrative* Maribel Fay MD - 08/17/2024 11:10 AM EST Chief Complaint Patient presents with: Follow Up: 3 month HPI Charlette Farmer is a 89 year old female who presents here today for Above Complaints.. DIABETES MELLITUS: Ms. Farmer was last seen 3 months ago. Since our last visit she denies excessive thirst or increased frequency of urination, new or unusual visual symptoms, and low sugar/hypoglycemic reactions. Admits to numbness and tingling in her legs which she takes Gabapentin BID for, but does not help much. Would like higher dosage. . Follows a diabetic diet most of the time. She is compliant with medication(s) and is tolerating med(s) without any side effects. She reports checking her glucose on a once a day schedule with sugars in the fasting 100-180 range with typical readings inthe 120-150. Had high readings in the 200's when she had thanksgiving with her family. Patient's last HgA1C was Hemoglobin A1C (%) Date Value 05/15/2024 8.3 12/20/2023 6.5 11/03/2021 7.9 07/22/2021 7.8 ) Last Ophthalmology exam was within the past 12 months Last Podiatry exam was within the past 12 months Patient had recent EGD and colonoscopy for mild anemia with positive FOBT. Found 2 polyps on colonoscopy. EGD unremarkable. No further workup needed. Repeat CBC showed resolved anemia. Started on PPIat f/u with general surgery. RLS: improved with mirapex. No recent gout flares. Up to date on vaccinations. Due for routine labs. Past medical history, appointments, medications, allergies reviewed. Previous Medical History PAST MEDICAL HISTORY Diagnosis Date Arthritis Benign neoplasm of colon tubular adenoma Carpal tunnel syndrome, right Chronic kidney disease, stage 3 (HCC) Diverticulitis 10/10/2020 Diverticulosis of colon (without mention of hemorrhage) Gout History of transfusion Internal hemorrhoids without mention of complication Lumbago Malignant neoplasm of corpus uteri, except isthmus (HCC) 1996 Uterine cancer Other and unspecified hyperlipidemia PAD (peripheral artery disease) (HCC) 2013 Mild LLE Pernicious anemia Restless leg syndrome Rotator cuff tendinitis left Trigger finger, right middle finger Seen by Dr. Burns 2015 Type II or unspecified type diabetes mellitus without mention of complication, uncontrolled Unspecified essential hypertension Previous Surgical History PAST SURGICAL HISTORY Procedure Laterality Date ABDOMINAL SURGERY HX APPENDECTOMY 1952 BACK SURGERY HX CHOLECYSTECTOMY 11/28/2011 COLONOSCOPY 07/12/2024 COLONOSCOPY FLX DX W/COLLJ SPEC WHEN PFRMD 2001 [place] sigmoidoscopy COLONOSCOPY FLX DX W/COLLJ SPEC WHEN PFRMD 10/22/2013 Colonoscopy COLONOSCOPY GEN ANES 01/07/2021 Dr. Phillips, Polyps. repeat in 3 years. COLONOSCOPY W/BIOPSY SINGLE/MULTIPLE 11/12/2008 DILATION & CURETTAGE DX&/THER NONOBSTETRIC 1965 Dilation & curettage EGD 01/07/2021 EGD 07/12/2024 EYE SURGERY HX LAMINECTOMY W/O FFD 09/20 VERT SEG LUMBAR 1971 Laminectomy, lumbar, fusion PAST SURGICAL HISTORY OF Left 09/01/2017 Trigger finger release of left ringer finger REVISE MEDIAN N/CARPAL TUNNEL SURG Right 05/31/2023 TONSILLECTOMY HX TUBAL LIGATION HX VAGINAL HYSTERECTOMY VAGINAL HYSTERECTOMY UTERUS 250 GM/< 1997 Hysterectomy, vaginal Family History FAMILY HISTORY Problem Relation Age of Onset Cancer Mother breast, lung cancer was heavy smoker Diabetes Maternal Grandmother Diabetes Maternal Grandfather other (no siblings) Maternal Grandfather Patient Allergies ALLERGIES Allergen Reactions Lipitor [Atorvastat* Intolerance myalgia Simvastatin Intolerance myalgia Current Medications Current Outpatient Medications on File Prior to Visit Medication Sig omeprazole (PRILOSEC) 20 mg capsule Take 1 capsule by mouth once daily. insulin glargine (LANTUS SOLOSTAR U-100 INSULIN) 100 unit/mL (3 mL) Inject 24 Units subcutaneously daily at bedtime. gabapentin (NEURONTIN) 400 mg capsule Take 1 capsule by mouth two times a day for 180 days. cyanocobalamin (VITAMIN B-12) 1,000 mcg tab Take one tablet every other day Dx: pernicious anemia allopurinol (ZYLOPRIM) 100 mg tablet Take 1 tablet by mouth two times a day. hydroCHLOROthiazide 12.5 mg capsule Take 1 capsule by mouth once daily. lisinopril 2.5 mg tablet Take 1 tablet by mouth once daily. rosuvastatin (CRESTOR) 20 mg tablet Take 1 tablet by mouth daily at bedtime. pramipexole (MIRAPEX) 0.25 mg tablet Take 1 tablet by mouth daily at bedtime. blood sugar diagnostic (TRUE METRIX GLUCOSE TEST STRIP) test strip Test once daily DX:250.02 Insulin: Yes Lancets lancets Pt requests Truedraw lancets. Test blood sugar(s) 1 times daily. Dx: Other DM Code 250.02 Insulin: Yes Lancets (ACCU-CHEK SOFTCLIX LANCETS) lancets Use Three times daily to check blood sugar Insulin [place], Disposable, (PEN NEEDLE) 29 gauge x 1/2 One needle once daily. Dx: 250.02 Insulin: yes Acetaminophen 500 mg cap Take 2 capsules by mouth two times a day as needed for pain. Reports will utilize 1 500mg tab 1-2 times in between the 1000 mg doses Miscellaneous Medical Supply (BLOOD PRESSURE CUFF) 1 Each once daily. ondansetron (ZOFRAN) 4 mg tablet Take 4 mg by mouth every 8 hours as needed for nausea/vomiting. meclizine (ANTIVERT) 25 mg tab Take 25 mg by mouth three times a day. cephALEXin (KEFLEX) 500 mg capsule Take 500 mg by mouth three times a day. blood sugar diagnostic (BLOOD GLUCOSE TEST) test strip Test blood sugar(s) 2 times daily. Dx: Type 2 DM - Controlled E11.9 Insulin: Yes ammonium lactate (LAC-HYDRIN) 12 % lotion Apply 1 application to affected area as needed for Dry Skin. melatonin 3 mg Take by mouth daily at bedtime. COMPOUNDED PRESCRIPTION Cock up wrist splint, right Medium. To be worn nightly to prevent carpal tunnel symptoms. Dx: carpal tunnel right Cholecalciferol, Vitamin D3, 1,000 unit cap Take 1 capsule by mouth once daily. Blood-Glucose Meter, Drum-type (ACCU-CHEK COMPACT PLUS CARE) Misc Kit 1 Each. Accu-Check Compact Plus Meter Diagnosis: Diabetes Mellitus ASPIRIN 81 MG TAB Take one (1) tablet daily . No current facility-administered medications on file prior to visit. Social History Social History Tobacco Use Smoking status: Former Current packs/day: 0.00 Average packs/day: 1 pack/day for 21.0 years (21.0 ttl pk-yrs) Types: Cigarettes Start date: 11/23/1952 Quit date: 09/19/1973 Years since quittin.9 Smokeless tobacco: Never Vaping Use Vaping status: Never Used Substance Use Topics Alcohol use: Yes Comment: occas glass of wine Drug use: No Review of Symptoms REVIEW OF SYSTEMS GENERAL: No weight loss, malaise or fevers RESPIRATORY: Negative for cough, hemoptysis, wheezing, COPD, dyspnea or shortness of breath CARDIOVASCULAR: Negative for chest pain, leg swelling, hypertension, CHF or palpitations GI: No nausea, vomiting, or diarrhea SKIN: Negative for lesions, rash, and itching EXAM: BP 108/62 Pulse 77 Resp 16 Wt 69.9 kg (154 lb 1.6 oz) SpO2 99% BMI 29.12 kg/m General Appearance: Well appearing, alert, in no acute distress, well-hydrated, well nourished.. Skin: Skin color, texture, turgor normal, no suspicious rashes or lesions. Lungs: Lungs clear to auscultation. No wheezing, rhonchi, rales.. Heart: RRR without murmur, gallop, or rubs. No ectopy. Abdomen: Normal abdominal exam, Abdomen soft, non-tender. Bowel sounds normal. No masses, organomegaly. Extremities: No deformities, edema, skin discoloration, clubbing or cyanosis. Good capillary refill. . Feet: Shoes and socks removed, No deformities, ulcers, calluses, and normal distal pulses Health Maintenance List Depression Screening Never done Anxiety Screening Never done Advance Directive Discussion due on 09/19/2023 HbA1C due on 08/15/2024 Urine Albumin:Creatinine Ratio due on 08/15/2024 DTaP,Tdap,Td Vaccine(2 - Tdap) due on 11/15/2024 RSV Vaccine(1 - 1-dose 75+ series) due on 11/15/2024 Shingrix Vaccine(2 of 2) due on 11/15/2024 Dilated Retinal Exam due on 11/15/2024 LDL Cholesterol due on 12/19/2024 Diabetic Foot Exam due on 04/06/2025 Bone Density Screening Completed Influenza Vaccine Completed Covid-19 Vaccine Completed Pneumococcal Vaccine: 65+ Completed Data reviewed Latest Ref Rng 05/15/2024 06/06/2024 06/12/2024 WBC 3.70 - 11.00 k/uL 8.13 10.60 RBC 3.90 - 5.20 m/uL 3.53 (L) 4.12 Hemoglobin 11.5 - 15.5 g/dL 11.2 (L) 12.7 Hematocrit 36.0 - 46.0 % 33.4 (L) 38.3 MCV 80.0 - 100.0 fL 94.6 93.0 MCH 26.0 - 34.0 pg 31.7 30.8 MCHC 30.5 - 36.0 g/dL 33.5 33.2 RDW-CV 11.5 - 15.0 % 14.4 13.9 Platelet Count 150 - 400 k/uL 215 306 MPV 9.0 - 12.7 fL 10.7 10.6 Neut% % 68.8 Abs Neut (ANC) 1.45 - 7.50 k/uL 5.60 Lymph% % 19.6 Abs Lymph 1.00 - 4.00 k/uL 1.59 [place]% % 10.0 Abs [place] <0.87 k/uL 0.81 Eosin% % 0.9 Abs Eosin <0.46 k/uL 0.07 Baso% % 0.5 Abs Baso <0.11 k/uL 0.04 Immature Gran % % 0.2 IMMATURE GRANS (ABS) <0.10 k/uL <0.03 NRBC /100 WBC 0.0 Absolute nRBC <0.01 k/uL <0.01 <0.01 DTYPE Auto Protein, Total 6.3 - 8.0 g/dL 7.2 7.0 Albumin 3.9 - 4.9 g/dL 4.7 4.2 Calcium 8.5 - 10.2 mg/dL 9.9 9.7 Bilirubin, Total 0.2 - 1.3 mg/dL 0.2 0.4 Alkaline Phosphatase 34 - 123 U/L 77 83 AST 13 - 35 U/L 19 19 ALT 7 - 38 U/L 9 11 Glucose 74 - 99 mg/dL 150 (H) 131 (H) BUN 7 - 21 mg/dL 17 24 (H) Creatinine 0.58 - 0.96 mg/dL 1.06 (H) 1.13 (H) Sodium 136 - 144 mmol/L 138 136 Potassium 3.7 - 5.1 mmol/L 4.3 3.7 Chloride 98 - 107 mmol/L 100 99 CO2 22 - 30 mmol/L 25 22 Anion Gap 8 - 15 mmol/L 13 15 eGFR >=60 mL/min/1.73m 50 (L) 47 (L) Iron 41 - 186 ug/dL 83 TIBC 232 - 386 ug/dL 291 Transferrin Saturation 15.0 - 57.0 % 28.5 Hemoglobin A1C 4.3 - 5.6 % 8.3 (H) Estimated Average Glucose mg/dL 192 Uric Acid 2.5 - 6.6 mg/dL 4.1 Ferritin 14.7 - 205.1 ng/mL 379.0 (H) Vitamin B12 232 - 1,245 pg/mL >2,000 (H) Folate >4.7 ng/mL 14.8 Latest Ref Rng 12/20/2023 Total Cholesterol, Nonfasting <200 mg/dL 142 Triglycerides, Nonfasting <150 mg/dL 163 (H) HDL Cholesterol, Nonfasting >39 mg/dL 52 LDL Cholesterol, Nonfasting <100 mg/dL 57 Non HDL Cholesterol, Nonfasting <130 mg/dL 90 VLDL Cholesterol, Nonfasting <30 mg/dL 33 (H) Total Chol/HDL Ratio, Nonfasting <5.10 mg/dL 2.73 LDL/HDL Ratio, Nonfasting <2.54 mg/dL 1.10 Legend: (H) High ASSESSMENT/PLAN: 1. DM type 2 with diabetic peripheral neuropathy (HCC) - ICD9: 250.60, 357.2, ICD10: E11.42 (primary diagnosis) - Control undetermined, due for labs - Continue current medications - Statin prescribed - rosuvastatin - Blood glucose monitoring on a twice daily schedule - Counseled on healthy diet and regular exercise - Discussed need for and benefit of weight loss. BMI 29.12 kg/(m^2) - Discussed diabetic education issues of diabetes complications and monitoring required, hypoglycemic/hyperglycemic symptoms, medication-specific side effects and monitoring, and diabetic sick day rules - Follow up in 3 months, sooner should any other issues arise. - COMPREHENSIVE METABOLIC PANEL - HEMOGLOBIN A1C - COMPLETE BLOOD COUNT AND DIFFERENTIAL - ALBUMIN/CREATININE RATIO, URINE 2. Stage 3b chronic kidney disease (HCC) - ICD9: 585.3, ICD10: N18.32 - eGFR: 43 Stable - Counseled on avoiding NSAIDs, adequate hydration - Counseled on low sodium diet 3. Essential hypertension - ICD9: 401.9, ICD10: I10 - Controlled - Continue current medications - Recommend home blood pressure monitoring, to bring results to next visit - Encouraged sodium restriction, DASH or Mediterranean diet - Recommend regular aerobic exercise 4. Mixed hyperlipidemia - ICD9: 272.2, ICD10: E78.2 - Controlled - Continue current medications - Counseled on healthy diet and regular exercise 5. Restless leg syndrome - ICD9: 333.94, ICD10: G25.81 Improved with mirapex. 6. PAD (peripheral artery disease) (HCC) - ICD9: 443.9, ICD10: I73.9 Asymptomatic on medical management. F/u in 3 months. 7. Mild anemia - ICD9: 285.9, ICD10: D64.9 No bleeding/bruising complaints. Repeat CBC. Maribel Fay MD documented in [facility] encounter[facility] History of Present illness Narrative* Mariah Odonnell APRN.SHELF FILLER - 07/23/2024 11:30 AM EST FOLLOW UP VISIT - ENDOSCOPY Charlette Farmer 1935 [id number] REFERRING PHYSICIAN: Simon Driscoll III [address] [facility] [address] Charlette Farmer is a patient I am following for + fecal occult stool. Dr. Driscoll performed upper& lower endoscopy on 07/12/24. The patient was found to have EGD Impression: - Z-line variable, 37 cm from the incisors. Biopsied. - Gastritis. Biopsied. - Normal examined duodenum. Biopsied. COLONOSCOPY Impression: - One medium polyp in the descending colon, removed with a cold snare. Resected and retrieved. Clips were placed. 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 - One diminutive polyp in the rectum, removed with a remocean cold forceps. Resected and retrieved. - Non-bleeding internal hemorrhoids. - The examination was otherwise normal. Pathology demonstrated: FINAL DIAGNOSIS A. Small bowel, duodenum, biopsy: - Duodenal mucosa with no pathologic diagnostic abnormality; negative for celiac disease, granulomas or dysplasia. B. Stomach, antrum, biopsy: - Gastric oxyntic type mucosa with no pathologic diagnostic abnormality; see comment. C. Esophagus, distal, biopsy: - Squamous mucosa with a cystic formation and hyperplasia. D. Esophagus, mid, biopsy: - Squamous mucosa with no pathologic diagnostic abnormality. E. Colon, descending polyp, biopsy: - Hyperplastic polyp. F. Rectum, polyp, biopsy: - Tubular adenoma. Diagnosis Comment SP LAB B. No microorganisms morphologically compatible with Helicobacter Pylori like organisms are identified by routine H&E-stained sections. The patient notes phlegm that she coughs up each morning. Denies illness or cold like symptoms. Denies history of allergies. Does refer to eating delarosa tomatoes as a night time snack. VITALS: There were no vitals taken for this visit. General: patient is alert, cooperative, pleasant and in no acute distress On examination, the abdomen is benign. Assessment ASSESSMENT/PLAN: 1. History of colonic polyps - ICD9: V12.72, ICD10: Z86.0100 (primary diagnosis) 2. Phlegm in throat - ICD9: 786.4, ICD10: R09.89 - Prilosec 20 mg daily x 3mos, if no improvement follow up with ENT - Avoid eating within 3 hours of laying down The operative findings and pathology report were reviewed with the patient, and the patient has hadthe opportunity to ask questions and have questions answered. If the patient notes any problems or changes in bowel function, the patient should contact me immediately. Otherwise I recommend follow up endoscopy as needed. HM updated and recall letter generated. Discussed treatment plan and patient voices understanding. Patient's questions answered appropriately. Medications and potential side effects were discussed and patient voices understanding. Return to the office as scheduled or as needed for worsening/no improvement. Mariah Odonnell APRN.SHELF FILLER documented in this encounterA[facility]11-04-2024 NoteHNO ID: [id number] Author: MARIAH ODONNELL APRN.SHELF FILLER Service: ? Author Type: Nurse Practitioner Type: Progress Notes Filed: 07/23/2024 11:36 Note Text: FOLLOW UP VISIT - ENDOSCOPY Charlette Farmer 1935 [id number] REFERRING PHYSICIAN: Simon Driscoll III [address] [facility] [address] Charlette Herrera Farmer is a patient I am following for + fecal occult stool. Dr. Driscoll performed upper AND lower endoscopy on 07/12/24. The patient was found to have EGD Impression: - Z-line variable, 37 cm from the incisors. Biopsied. - Gastritis. Biopsied. - Normal examined duodenum. Biopsied. COLONOSCOPY Impression: - One medium polyp in the descending colon, removed with a cold snare. Resected and retrieved. Clips were placed. 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 - One diminutive polyp in the rectum, removed with a jumbo cold forceps. Resected and retrieved. - Non-bleeding internal hemorrhoids. - The examination was otherwise normal. Pathology demonstrated: FINAL DIAGNOSIS A. Small bowel, duodenum, biopsy: - Duodenal mucosa with no pathologic diagnostic abnormality; negative for celiac disease, granulomas or dysplasia. B. Stomach, antrum, biopsy: - Gastric oxyntic type mucosa with no pathologic diagnostic abnormality; see comment. C. Esophagus, distal, biopsy: - Squamous mucosa with a cystic formation and hyperplasia. D. Esophagus, mid, biopsy: - Squamous mucosa with no pathologic diagnostic abnormality. E. Colon, descending polyp, biopsy: - Hyperplastic polyp. F. Rectum, polyp, biopsy: - Tubular adenoma. Diagnosis Comment SP LAB B. No microorganisms morphologically compatible with Helicobacter Pylori like organisms are identified by routine DARSHAN-stained sections. The patient notes phlegm that she coughs up each morning. Denies illness or cold like symptoms. Denies history of allergies. Does refer to eating delarosa tomatoes as a night time snack. VITALS: There were no vitals taken for this visit. General: patient is alert, cooperative, pleasant and in no acute distress On examination, the abdomen is benign. Assessment ASSESSMENT/PLAN: 1. History of colonic polyps - ICD9: V12.72, ICD10: Z86.0100 (primary diagnosis) 2. Phlegm in throat - ICD9: 786.4, ICD10: R09.89 - Prilosec 20 mg daily x 3mos, if no improvement follow up with ENT - Avoid eating within 3 hours of laying down The operative findings and pathology report were reviewed with the patient, and the patient has had the opportunity to ask questions and have questions answered. If the patient notes any problems or changes in bowel function, the patient should contact me immediately. Otherwise I recommend follow up endoscopy as needed. HM updated and recall letter generated. Discussed treatment plan and patient voices understanding. Patient's questions answered appropriately. Medications and potential side effects were discussed and patient voices understanding. Return to the office as scheduled or as needed for worsening/no improvement. Mariah Odonnell APRN.[facility]10-25-2024 NoteHNO ID: [id number] Author: KAREL SANTIAGO, ? Service: ? Author Type: Physician Type: Progress Notes Filed: 07/13/2024 14:27 Note Text: Last saw pcp: 06/06/24 Subjective: Patient presents to clinic c/o painful toenails. They state that the nails are especially painful with shoe gear and pressure. Patient states that nails 1-5 b/l are painful. Patient admits to being diabetic. No other pedal complaints at this time. Patient states no change in medications or medical history since last visit. Objective: Patient presents to clinic ambulating in [facility] Vasc: DP and PT pulses are faintly palpable bilateral. CFT is less than 5 seconds bilateral. Skin temperature is warm to cool proximal to distal bilateral. There is mild edema or varicosities noted. Neuro: Protective sensation is intact to the foot and toes when tested with the 5.07 SWM bilateral. Vibratory sensation is absent at the hallux IPJ bilateral. The hallux is downgoing bilateral. Derm: Nails 1-5 b/l are painful, discolored-yellow, thick, crumbly, dystrophic and with subungal debris. Skin is of normal turgor, texture and hair growth is absent bilateral. There are callus to right 5th toe. No ulcerations, scars, verruca or other lesions noted. Ortho: Muscle strength is 5/5 for all pedal groups tested. Ankle joint DF is decreased with the knee extended with no pain or crepitus noted. 1st MPJ ROM is decreased bilateral. 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 Nails 1-5 bilateral were debrided in length and thickness. Small bleed to b/l 5th toe and right 4th toe. Band aide applied. Callus to right 5th toe reduced with dremmel. Patient was instructed on the continued importance of diabetic foot care along with proper diet and keeping their blood sugar under control to prevent complications. Stressed the importance of avoiding barefoot walking, wearing good shoes and inspection of feet. Patient is to RTC in 3-4 months. Karel Jack [facility]10-25-2024 History of Present illness Narrative* Karel Santiago - 07/13/2024 2:12 PM EDT Last saw pcp: 06/06/24 Subjective: Patient presents to clinic c/o painful toenails. They state that the nails are especially painful with shoe gear and pressure. Patient states that nails 1-5 b/l are painful. Patient admits to being diabetic. No other pedal complaints at this time. Patient states no change in medications or medical history since last visit. Objective: Patient presents to clinic ambulating in [facility] Vasc: DP and PT pulses are faintly palpable bilateral. CFT is less than 5 seconds bilateral. Skin temperature is warm to cool proximal to distal bilateral. There is mild edema or varicosities noted. Neuro: Protective sensation is intact to the foot and toes when tested with the 5.07 SWM bilateral.Vibratory sensation is absent at the hallux IPJ bilateral. The hallux is downgoing bilateral. Derm: Nails 1-5 b/l are painful, discolored-yellow, thick, crumbly, dystrophic and with subungal debris. Skin is of normal turgor, texture and hair growth is absent bilateral. There are callus to right 5th toe. No ulcerations, scars, verruca or other lesions noted. Ortho: Muscle strength is 5/5 for all pedal groups tested. Ankle joint DF is decreased with the knee extended with no pain or crepitus noted. 1st MPJ ROM is decreased bilateral. 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 Nails 1-5 bilateral were debrided in length and thickness. Small bleed to b/l 5th toe and right 4thtoe. Band aide applied. Callus to right 5th toe reduced with dremmel. Patient was instructed on the continued importance of diabetic foot care along with proper diet andkeeping their blood sugar under control to prevent complications. Stressed the importance of avoiding barefoot walking, wearing good shoes and inspection of feet. Patient is to RTC in 3-4 months. Karel Santiago DPM * Paris Ceja RN - 07/13/2024 2:04 PM EDT Patient presents with: Left Foot - Established Patient, Follow Up, Diabetic Foot Care Right Foot - Established Patient, Follow Up, Diabetic Foot Care Patient presents for follow up diabetic foot/nail care. MADISYN 04/06/24 documented in this encounterA[facility]10-25-[facility] Instructions* Patient Instructions* Karel Santiago - 07/13/2024 2:12 PM EDT Diabetes Foot Care Instructions When you have diabetes, proper foot care is very important. Poor foot care may lead to amputation of a foot or leg. As a person with diabetes, you are more vulnerable to foot problems, because diabetes can damage your nerves and reduce blood flow to your feet. Here are some diabetes foot care tips to follow: Wash and Dry Your Feet Daily Use mild soaps Use warm water Pat your skin dry; do not rub. Thoroughly dry your feet. After washing, use lotion on your feet to prevent cracking. Do not put lotion between your toes. Examine Your Feet Each Day Check the tops and bottoms of your feet. Have someone else look at your feet if you cannot see them. Check for dry, cracked skin. Look for blisters, cuts, scratches, or other sores. Check for redness, increased warmth, or tenderness when touching any area of your feet. Check for ingrown toenails, corns, and calluses. If you get a blister or sore from your shoes, do not pop it. Apply a bandage and wear a differentpair of shoes. Take Care of Your Toenails Cut toenails after bathing, when they are soft. Cut toenails straight across and smooth with a nail file. Avoid cutting into the corners of toes. Do not cut cuticles. If you have neuropathy (or decreased sensation in your feet) a clinical informatics director should always cut your toenails. Be Careful When Exercising Walk and exercise in comfortable shoes. Do not exercise when you have open sores on your feet. Protect Your Feet With Shoes and Socks Never go barefoot. Always protect your feet by wearing shoes or hard-soled slippers or footwear. Avoid shoes with high heels and pointed toes. Avoid shoes that expose your toes or heels (such as open-toed shoes or sandals). These types of shoes increase your risk for injury and potential infections. Try on new footwear with the type of socks you usually wear. Do not wear new shoes for more than an hour at a time. Change your socks daily. Look and feel inside your shoes before putting them on to make sure there are no foreign objects orrough areas. Avoid tight socks. Wear natural-fiber socks (cotton, wool, or a cotton-wool blend). Wear special shoes if your health care provider recommends them. Wear shoes/boots that will protect your feet from various weather conditions (cold, moisture, etc.). Make sure your shoes fit properly. If you have neuropathy (nerve damage), you may not notice that your shoes are too tight. Perform the footwear test described below. Footwear Test Use this simple test to see if your shoes fit correctly: Stand on a piece of paper. (Make sure you are standing and not sitting, because your foot changes shape when you stand.) Trace the outline of your foot. Trace the outline of your shoe. Compare the tracings: Is the shoe too narrow? Is your foot crammed into the shoe? The shoe should be at least 1/2 inch longer than your longest toe and as wide as your foot. Proper Shoe Choices The following types of shoes are best for people with diabetes Closed toes and heels Leather uppers without a seam inside At least 1/2 inch extra space at the end of your longest toe Inside of shoe should be soft with no rough areas Outer sole should be made of stiff material Shoes should be at least as wide as your feet Tips for Foot Care in Diabetes Don't wait to treat a minor foot problem if you have diabetes. Follow your health care provider's guidelines and first aid guidelines. Report foot injuries and infections to your health care provider immediately. Check water temperature with your elbow, not your foot. Do not use a heating pad on your feet. Do not cross your legs. Do not self-treat your corns, calluses, or other foot problems. Go to your health care provider or clinical informatics director to treat these conditions. documented in this encounterA[facility]10-25-2024 NoteHNO ID: [id number] Author: PARIS CEJA RN Service: ? Author Type: Registered Nurse Type: Progress Notes Filed: 07/13/2024 14:27 Note Text: Patient presents with: Left Foot - Established Patient, Follow Up, Diabetic Foot Care Right Foot - Established Patient, Follow Up, Diabetic Foot Care Patient presents for follow up diabetic foot/nail care. MADISYN 04/06/24[facility] [place]10-24-[facility]24 Nurse Note* Christian Shanks RN - 07/12/2024 9:50 AM EDT Patient arrived laying on left side. Patient does not appear to be in any pain at this time. Abdomen appears to be nondistended and soft to palpation. Patient encouraged to belch and pass gas as needed. [facility]10-24-2024 Nurse Note* Christian Shanks RN - 07/12/2024 9:50 AM EDT Patient arrived laying on left side. Patient does not appear to be in any pain at this time. Abdomen appears to be nondistended and soft to palpation. Patient encouraged to belch and pass gas as needed. [facility]* Discharge Instr - Nursing - Christian Shanks RN - 07/12/2024 9:37 AM EDT The patient received a copy of Colonoscopy and EGD discharge instructions that contain information for how to contact the physician who performed the procedure and when to seek medical care. [facility]10-24-2024 Miscellaneous Notes* Discharge Instr - Nursing - Christian Shanks RN - 07/12/2024 9:37 AM EDT The patient received a copy of Colonoscopy and EGD discharge instructions that contain information for how to contact the physician who performed the procedure and when to seek medical care. [facility] History and physical note * Simon Driscoll MD - 07/12/2024 8:45 AM EDT HISTORY AND PHYSICAL Charlette Farmer : 1935 REFERRING PHYSICIAN: Tosha Pelaez [address] [id number] CHIEF COMPLAINT: Patient presents with: Consult: colonoscopy HPI: Charlette is a 89 year old female referred for endoscopy. Charlette notes + fecal occult stool. Charlette denies abdominal pain. Charlette denies diarrhea. Charlette denies constipation. Charlette denies a change in bowel habits. Charlette denies melena. Charlette denies bright red blood per rectum. Charlette denies hemorrhoids. Charlette denies heartburn. Charlette denies dysphagia. Charlette denies a history of ulcers/ peptic ulcer disease. Charlette Denies family history of colon issues. Charlette has past medical history significant for DMT2, HTN, CKD stage 3. She denies CP, SOB, dizziness, palpitations, syncope, edema, recent hospitalizations Charlette has undergone prior endoscopy. Last colonoscopy was 12/[address] Phillips at [facility]. Sedationreceived: Midazolam 2 mg IV, Fentanyl 50 micrograms IV, Diphenhydramine 50 mg IV Impression: - Non-bleeding external and internal hemorrhoids. - Three small polyps in the rectum, removed with a cold snare. Resected and retrieved. PATHOLOGY CONVERTED FINAL DIAGNOSIS Rectum, polypectomy - Tubular adenoma. KL/lbk 01/08/2021 CURRENT MEDICATIONS Current Outpatient Medications Medication Sig gabapentin (NEURONTIN) 400 mg capsule Take 1 capsule by mouth two times a day for 180 days. cyanocobalamin (VITAMIN B-12) 1,000 mcg tab Take one tablet every other day Dx: pernicious anemia allopurinol (ZYLOPRIM) 100 mg tablet Take 1 tablet by mouth two times a day. insulin glargine (LANTUS SOLOSTAR U-100 INSULIN) 100 unit/mL (3 mL) Inject 22 Units subcutaneously daily at bedtime. hydroCHLOROthiazide 12.5 mg capsule Take 1 capsule by mouth once daily. lisinopril 2.5 mg tablet Take 1 tablet by mouth once daily. rosuvastatin (CRESTOR) 20 mg tablet Take 1 tablet by mouth daily at bedtime. pramipexole (MIRAPEX) 0.25 mg tablet Take 1 tablet by mouth daily at bedtime. blood sugar diagnostic (TRUE METRIX GLUCOSE TEST STRIP) test strip Test once daily DX:250.02 Insulin: Yes Lancets lancets Pt requests Truedraw lancets. Test blood sugar(s) 1 times daily. Dx: Other DM Code 250.02 Insulin: Yes Lancets (ACCU-CHEK SOFTCLIX LANCETS) lancets Use Three times daily to check blood sugar Insulin Volborg, Disposable, (PEN NEEDLE) 29 gauge x 1/2 One needle once daily. Dx: 250.02 Insulin: yes Acetaminophen 500 mg cap Take 2 capsules by mouth two times a day as needed for pain. Reports will utilize 1 500mg tab 1-2 times in between the 1000 mg doses Miscellaneous Medical Supply (BLOOD PRESSURE CUFF) 1 Each once daily. ondansetron (ZOFRAN) 4 mg tablet Take 4 mg by mouth every 8 hours as needed for nausea/vomiting. meclizine (ANTIVERT) 25 mg tab Take 25 mg by mouth three times a day. blood sugar diagnostic (BLOOD GLUCOSE TEST) test strip Test blood sugar(s) 2 times daily. Dx: Type 2 DM - Controlled E11.9 Insulin: Yes ammonium lactate (LAC-HYDRIN) 12 % lotion Apply 1 application to affected area as needed for Dry Skin. melatonin 3 mg Take by mouth daily at bedtime. COMPOUNDED PRESCRIPTION Cock up wrist splint, right Medium. To be worn nightly to prevent carpal tunnel symptoms. Dx: carpal tunnel right Cholecalciferol, Vitamin D3, 1,000 unit cap Take 1 capsule by mouth once daily. Blood-Glucose Meter, Drum-type (ACCU-CHEK COMPACT PLUS CARE) Misc Kit 1 Each. Accu-Check Compact Plus Meter Diagnosis: Diabetes Mellitus ASPIRIN 81 MG TAB Take one (1) tablet daily . cephALEXin (KEFLEX) 500 mg capsule Take 500 mg by mouth three times a day. (Patient not taking: Reported on 04/06/2024) No current facility-administered medications for this visit. ALLERGIES: Lipitor [Atorvastatin] and Simvastatin PAST MEDICAL HISTORY PAST MEDICAL HISTORY Diagnosis Date Arthritis Benign neoplasm of colon tubular adenoma Carpal tunnel syndrome, right Chronic kidney disease, stage 3 (HCC) Diverticulitis 10/10/2020 Diverticulosis of colon (without mention of hemorrhage) Gout History of transfusion Internal hemorrhoids without mention of complication Lumbago Malignant neoplasm of corpus uteri, except isthmus (HCC) 1996 Uterine cancer Other and unspecified hyperlipidemia PAD (peripheral artery disease) (HCC) 2013 Mild LLE Pernicious anemia Restless leg syndrome Rotator cuff tendinitis left Trigger finger, right middle finger Seen by Dr. Burns 2015 Type II or unspecified type diabetes mellitus without mention of complication, uncontrolled Unspecified essential hypertension PAST SURGICAL HISTORY PAST SURGICAL HISTORY Procedure Laterality Date ABDOMINAL SURGERY HX APPENDECTOMY 195 BACK SURGERY HX CHOLECYSTECTOMY 11/28/2011 COLONOSCOPY FLX DX W/COLLJ SPEC WHEN PFRMD 2001 out of state sigmoidoscopy COLONOSCOPY FLX DX W/COLLJ SPEC WHEN PFRMD 10/22/2013 Colonoscopy COLONOSCOPY GEN ANES 01/07/2021 Dr. Phillips, Polyps. repeat in 3 years. COLONOSCOPY W/BIOPSY SINGLE/MULTIPLE 11/12/2008 DILATION & CURETTAGE DX&/THER NONOBSTETRIC 1965 Dilation & curettage EGD 01/07/2021 EYE SURGERY HX LAMINECTOMY W/O FFD 09/20 VERT SEG LUMBAR 1971 Laminectomy, lumbar, fusion PAST SURGICAL HISTORY OF Left 09/01/2017 Trigger finger release of left ringer finger REVISE MEDIAN N/CARPAL TUNNEL SURG Right 05/31/2023 TONSILLECTOMY HX TUBAL LIGATION HX VAGINAL HYSTERECTOMY VAGINAL HYSTERECTOMY UTERUS 250 GM/< 1996 Hysterectomy, vaginal FAMILY HISTORY FAMILY HISTORY Problem Relation Age of Onset Cancer Mother breast, lung cancer was heavy smoker Diabetes Maternal Grandmother Diabetes Maternal Grandfather other (no siblings) Maternal Grandfather SOCIAL HISTORY Social History Tobacco Use Smoking status: Former Current packs/day: 0.00 Average packs/day: 1 pack/day for 21.0 years (21.0 ttl pk-yrs) Types: Cigarettes Start date: 11/23/1952 Quit date: 09/19/1973 Years since quittin.7 Smokeless tobacco: Never Vaping Use Vaping status: Never Used Substance Use Topics Alcohol use: Yes Comment: occas glass of wine Drug use: No REVIEW OF SYMPTOMS: The review of systems data was entered by the nurse and reviewed by me Nursing Notes: Altagracia Hazel RN 06/19/2024 11:19 AM Signed REVIEW OF SYSTEMS: General: The patient NOTES fatigue, denies weight loss, denies weight gain, denies feeling hot, anddenies feelings of cold. Eyes: The patient denies glaucoma, denies eye injury/surgery, wears glasses or contacts. Ear/Nose/Throat: The patient denies allergies, denies hayfever, denies ear infections, and denies bloody noses. Cardiovascular: The patient denies chest pain, denies heart disease, NOTES high blood pressure,denies cardiac stent, denies prior heart attack, denies irregular heart beat, NOTES high cholesterol, denies poor circulation, denies heart failure, other cardiac issues, NOTES claudication, denies cold feet, denies peripheral arterial stent. Respiratory: The patient denies tuberculosis, denies pneumonia, denies frequent cough, denies pulmonary embolism, NOTES shortness of breath, and denies coughing up blood. Gastrointestinal: The patient denies difficulty swallowing, denies acid reflux, denies ulcers, denies vomiting, denies jaundice/hepatitis, NOTES gallbladder problems, denies black or tarry stools, denies hemorrhoids, denies bleeding from rectum, denies diverticulitis, NOTES constipation, NOTES diarrhea, denies loss of stool control, and denies hernias. Kidney/Bladder: The patient NOTES kidney failure, denies urine infections, and denies bloody urine. Skin: The patient denies a history of skin cancer, denies bleeding/changing moles, and denies a history of skin rash. Neurologic: The patient denies a history of epilepsy/convulsions, denies headaches, NOTES head/spinal injuries, and denies stroke/TIA. Psychiatric: The patient denies psychiatric medications, denies depression, and denies voices, denies substance abuse. Endocrine: The patient denies thyroid disorders, NOTES diabetes, and denies hormonal problems. Hematologic: The patient denies a history of bruising, denies bleeding, and NOTES anemia, denies blood clots. Infections: The patient denies a history of measles and mumps, denies rheumatic fever, and denies sexually transmitted diseases. Musculoskeletal: The patient denies back pain/injury, denies back problems, denies sciatica, deniesknee/foot trouble, denies arthritis, or NOTES gout. When was patient's last Mammogram screening? 5 YEARS Last Colonoscopy: 01/07/2021 Altagracia Hazel RN PHYSICAL EXAMINATION: General: The patient is 89 year old, female well nourished, well hydrated in no acute distress. Thepatient is oriented to time, place, and person. VITALS: Blood pressure 114/62, pulse 94, temperature 36.2 C (97.1 F), height 154.9 cm (5' 1), weight 67.6 kg (149 lb), SpO2 96%. Body mass index is 28.15 kg/m . HEENT: Normal cephalic, ataumatic, pupils are equally round, sclera are anicteric, mucous membranesare moist, oropharynx is clear. Neck has no masses, asymmetry or lymphadenopathy. Respiratory: Clear to auscultation and percussion. Normal respiratory excursion and pattern. Cardiac: Examination is regular rate and rhythm. Normal S1/S2 Abdominal exam: Soft, nontender, with no palpable masses. No hepatosplenomegaly. No palpable hernias. Extremities: no clubbing, cyanosis or edema. No adenopathy. LABORATORY VALUES: As Noted RADIOLOGIC STUDIES: As Noted Assessment IMPRESSION: + occult stool test, history of colonic polyps PLAN: I have reviewed my findings with the surgeon. Will plan for upper and lower endoscopy. We discussed the risks and benefits of the planned endoscopy. I have informed the patient that complications can occur including failure to complete the endoscopy and perforation. Charlette had the opportunity to ask questions concerning the planned endoscopy. My staff has also explained the procedure to the patient in understandable terms and has given the patient printed material concerning the procedure. Charlette freely consents to surgery. I plan to use Miralax bowel preparation Patient instructed to contact PCP for instructions regarding diabetic medication, which may requireadjustment during bowel preparation and/or day of procedure. I have explained to the patient the difference between IV conscious sedation and MAC anesthesia - and I have offered either, according to the patient's wishes. I have explained that with IV conscioussedation there is no anesthesia provider available and therefore there is a limitation of the amount of IV medications that can be given and that the patient may wake up in the middle of the procedure and/or experience pain/discomfort during the procedure. Further discussion was done and the patient was given the opportunity to ask questions and all questions were answered. Charlette chooses IV conscious sedation Charlette was counseled that if there are changes in his/her medical condition, to let the office know if surgery should proceed. If there are changes in patient's medical condition from time of this encounter to the day of the procedure that preclude anesthesia, patient may have procedure cancelled for patient's safety. Diagnoses: (Z86.0100) History of colonic polyps (primary encounter diagnosis) (R19.5) Positive fecal occult blood test Consultation requested by Tosha Pelaez CNP for an opinion regarding + fecal occult stool test. Myfinal recommendations will be communicated back to the requesting physician by way of shared Medical record or letter to requesting physician via US mail. Portions of this documentation were copied and pasted from previous office visit notes in order to provide a cohesive continuity of the history. The note has been reviewed and edited and updated as necessary. Mariah Odonnell APRN.CNP UPDATED HISTORY AND PHYSICAL EXAMINATION SERVICE DATE: 07/12/2024 SERVICE TIME: 8:47 AM SENSITIVE EXAMINATION CONSENT: The sensitive examination was discussed with the Patient or Patient's Authorized Yarder Puncher. Asapplicable, any other physician, advance practice provider, medical student, or other health professional student that will be observing or involved in the sensitive examination for educational or training purposes was discussed with the Patient or Authorized Yarder Puncher. The Patient or Authorized Yarder Puncher has agreed to proceed with the sensitive examination. (Sensitive examination includes inspection and/or palpation of the breasts, pelvis, prostate and anorectal regions) PHYSICAL EXAM MUST BE COMPLETED ON ADMISSION The History and Physical (completed in the past 30 days) has been reviewed and the patient has beenexamined. The contents accurately reflect the patient's condition with the following additions or revisions since the H&P was completed. Examination indicates no changes. This H&P can be found in the attached. SIGNATURE: Simon Driscoll III, MD PATIENT NAME: Charlette Farmer DATE: July 12, 2024 TIME: 8:47 AM [facility]10-24-2024 History and physical note* Simon Driscoll MD - 07/12/2024 8:45 AM EDT HISTORY AND PHYSICAL Charlette Farmer : 1935 REFERRING PHYSICIAN: Tosha Pelaez [address] [facility] [id number] CHIEF COMPLAINT: Patient presents with: Consult: colonoscopy HPI: Charlette is a 89 year old female referred for endoscopy. Charlette notes + fecal occult stool. Charlette denies abdominal pain. Charlette denies diarrhea. Charlette denies constipation. Charlette denies a change in bowel habits. Charlette denies melena. Charlette denies bright red blood per rectum. Charlette denies hemorrhoids. Charlette denies heartburn. Charlette denies dysphagia. Charlette denies a history of ulcers/ peptic ulcer disease. Charlette Denies family history of colon issues. Charlette has past medical history significant for DMT2, HTN, CKD stage 3. She denies CP, SOB, dizziness, palpitations, syncope, edema, recent hospitalizations Charlette has undergone prior endoscopy. Last colonoscopy was 12/[address] Phillips at [facility]. Sedationreceived: Midazolam 2 mg IV, Fentanyl 50 micrograms IV, Diphenhydramine 50 mg IV Impression: - Non-bleeding external and internal hemorrhoids. - Three small polyps in the rectum, removed with a cold snare. Resected and retrieved. PATHOLOGY CONVERTED FINAL DIAGNOSIS Rectum, polypectomy - Tubular adenoma. AMEE/lbk 01/08/2021 CURRENT MEDICATIONS Current Outpatient Medications Medication Sig gabapentin (NEURONTIN) 400 mg capsule Take 1 capsule by mouth two times a day for 180 days. cyanocobalamin (VITAMIN B-12) 1,000 mcg tab Take one tablet every other day Dx: pernicious anemia allopurinol (ZYLOPRIM) 100 mg tablet Take 1 tablet by mouth two times a day. insulin glargine (LANTUS SOLOSTAR U-100 INSULIN) 100 unit/mL (3 mL) Inject 22 Units subcutaneously daily at bedtime. hydroCHLOROthiazide 12.5 mg capsule Take 1 capsule by mouth once daily. lisinopril 2.5 mg tablet Take 1 tablet by mouth once daily. rosuvastatin (CRESTOR) 20 mg tablet Take 1 tablet by mouth daily at bedtime. pramipexole (MIRAPEX) 0.25 mg tablet Take 1 tablet by mouth daily at bedtime. blood sugar diagnostic (TRUE METRIX GLUCOSE TEST STRIP) test strip Test once daily DX:250.02 Insulin: Yes Lancets lancets Pt requests Truedraw lancets. Test blood sugar(s) 1 times daily. Dx: Other DM Code 250.02 Insulin: Yes Lancets (ACCU-CHEK SOFTCLIX LANCETS) lancets Use Three times daily to check blood sugar Insulin Volborg, Disposable, (PEN NEEDLE) 29 gauge x 1/2 One needle once daily. Dx: 250.02 Insulin: yes Acetaminophen 500 mg cap Take 2 capsules by mouth two times a day as needed for pain. Reports will utilize 1 500mg tab 1-2 times in between the 1000 mg doses Miscellaneous Medical Supply (BLOOD PRESSURE CUFF) 1 Each once daily. ondansetron (ZOFRAN) 4 mg tablet Take 4 mg by mouth every 8 hours as needed for nausea/vomiting. meclizine (ANTIVERT) 25 mg tab Take 25 mg by mouth three times a day. blood sugar diagnostic (BLOOD GLUCOSE TEST) test strip Test blood sugar(s) 2 times daily. Dx: Type 2 DM - Controlled E11.9 Insulin: Yes ammonium lactate (LAC-HYDRIN) 12 % lotion Apply 1 application to affected area as needed for Dry Skin. melatonin 3 mg Take by mouth daily at bedtime. COMPOUNDED PRESCRIPTION Cock up wrist splint, right Medium. To be worn nightly to prevent carpal tunnel symptoms. Dx: carpal tunnel right Cholecalciferol, Vitamin D3, 1,000 unit cap Take 1 capsule by mouth once daily. Blood-Glucose Meter, Drum-type (ACCU-CHEK COMPACT PLUS CARE) Misc Kit 1 Each. Accu-Check Compact Plus Meter Diagnosis: Diabetes Mellitus ASPIRIN 81 MG TAB Take one (1) tablet daily . cephALEXin (KEFLEX) 500 mg capsule Take 500 mg by mouth three times a day. (Patient not taking: Reported on 04/06/2024) No current facility-administered medications for this visit. ALLERGIES: Lipitor [Atorvastatin] and Simvastatin PAST MEDICAL HISTORY PAST MEDICAL HISTORY Diagnosis Date Arthritis Benign neoplasm of colon tubular adenoma Carpal tunnel syndrome, right Chronic kidney disease, stage 3 (HCC) Diverticulitis 10/10/2020 Diverticulosis of colon (without mention of hemorrhage) Gout History of transfusion Internal hemorrhoids without mention of complication Lumbago Malignant neoplasm of corpus uteri, except isthmus (HCC) 1996 Uterine cancer Other and unspecified hyperlipidemia PAD (peripheral artery disease) ([facility]) 2013 Mild LLE Pernicious anemia Restless leg syndrome Rotator cuff tendinitis left Trigger finger, right middle finger Seen by Dr. Burns 2015 Type II or unspecified type diabetes mellitus without mention of complication, uncontrolled Unspecified essential hypertension PAST SURGICAL HISTORY PAST SURGICAL HISTORY Procedure Laterality Date ABDOMINAL SURGERY HX APPENDECTOMY 1952 BACK SURGERY HX CHOLECYSTECTOMY 11/28/2011 COLONOSCOPY FLX DX W/COLLJ SPEC WHEN PFRMD 2001 out of state sigmoidoscopy COLONOSCOPY FLX DX W/COLLJ SPEC WHEN PFRMD 10/22/2013 Colonoscopy COLONOSCOPY GEN ANES 01/07/2021 Dr. Phillips, Polyps. repeat in 3 years. COLONOSCOPY W/BIOPSY SINGLE/MULTIPLE 11/12/2008 DILATION & CURETTAGE DX&/THER NONOBSTETRIC 1965 Dilation & curettage EGD 01/07/2021 EYE SURGERY HX LAMINECTOMY W/O FFD 09/20 VERT SEG LUMBAR 1971 Laminectomy, lumbar, fusion PAST SURGICAL HISTORY OF Left 09/01/2017 Trigger finger release of left ringer finger REVISE MEDIAN N/CARPAL TUNNEL SURG Right 05/31/2023 TONSILLECTOMY HX TUBAL LIGATION HX VAGINAL HYSTERECTOMY VAGINAL HYSTERECTOMY UTERUS 250 GM/< 1996 Hysterectomy, vaginal FAMILY HISTORY FAMILY HISTORY Problem Relation Age of Onset Cancer Mother breast, lung cancer was heavy smoker Diabetes Maternal Grandmother Diabetes Maternal Grandfather other (no siblings) Maternal Grandfather SOCIAL HISTORY Social History Tobacco Use Smoking status: Former Current packs/day: 0.00 Average packs/day: 1 pack/day for 21.0 years (21.0 ttl pk-yrs) Types: Cigarettes Start date: 11/23/1952 Quit date: 09/19/1973 Years since quittin.7 Smokeless tobacco: Never Vaping Use Vaping status: Never Used Substance Use Topics Alcohol use: Yes Comment: occas glass of wine Drug use: No REVIEW OF SYMPTOMS: The review of systems data was entered by the nurse and reviewed by la Nursing Notes: Altagracia Hazel RN 06/19/2024 11:19 AM Signed REVIEW OF SYSTEMS: General: The patient NOTES fatigue, denies weight loss, denies weight gain, denies feeling hot, anddenies feelings of cold. Eyes: The patient denies glaucoma, denies eye injury/surgery, wears glasses or contacts. Ear/Nose/Throat: The patient denies allergies, denies hayfever, denies ear infections, and denies bloody noses. Cardiovascular: The patient denies chest pain, denies heart disease, NOTES high blood pressure,denies cardiac stent, denies prior heart attack, denies irregular heart beat, NOTES high cholesterol, denies poor circulation, denies heart failure, other cardiac issues, NOTES claudication, denies cold feet, denies peripheral arterial stent. Respiratory: The patient denies tuberculosis, denies pneumonia, denies frequent cough, denies pulmonary embolism, NOTES shortness of breath, and denies coughing up blood. Gastrointestinal: The patient denies difficulty swallowing, denies acid reflux, denies ulcers, denies vomiting, denies jaundice/hepatitis, NOTES gallbladder problems, denies black or tarry stools, denies hemorrhoids, denies bleeding from rectum, denies diverticulitis, NOTES constipation, NOTES diarrhea, denies loss of stool control, and denies hernias. Kidney/Bladder: The patient NOTES kidney failure, denies urine infections, and denies bloody urine. Skin: The patient denies a history of skin cancer, denies bleeding/changing moles, and denies a history of skin rash. Neurologic: The patient denies a history of epilepsy/convulsions, denies headaches, NOTES head/spinal injuries, and denies stroke/TIA. Psychiatric: The patient denies psychiatric medications, denies depression, and denies voices, denies substance abuse. Endocrine: The patient denies thyroid disorders, NOTES diabetes, and denies hormonal problems. Hematologic: The patient denies a history of bruising, denies bleeding, and NOTES anemia, denies blood clots. Infections: The patient denies a history of measles and mumps, denies rheumatic fever, and denies sexually transmitted diseases. Musculoskeletal: The patient denies back pain/injury, denies back problems, denies sciatica, deniesknee/foot trouble, denies arthritis, or NOTES gout. When was patient's last Mammogram screening? 5 YEARS Last Colonoscopy: 01/07/2021 Altagracia Hazel RN PHYSICAL EXAMINATION: General: The patient is 89 year old, female well nourished, well hydrated in no acute distress. Thepatient is oriented to time, place, and person. VITALS: Blood pressure 114/62, pulse 94, temperature 36.2 C (97.1 F), height 154.9 cm (5' 1), weight 67.6 kg (149 lb), SpO2 96%. Body mass index is 28.15 kg/m . HEENT: Normal cephalic, ataumatic, pupils are equally round, sclera are anicteric, mucous membranesare moist, oropharynx is clear. Neck has no masses, asymmetry or lymphadenopathy. Respiratory: Clear to auscultation and percussion. Normal respiratory excursion and pattern. Cardiac: Examination is regular rate and rhythm. Normal S1/S2 Abdominal exam: Soft, nontender, with no palpable masses. No hepatosplenomegaly. No palpable hernias. Extremities: no clubbing, cyanosis or edema. No adenopathy. LABORATORY VALUES: As Noted RADIOLOGIC STUDIES: As Noted Assessment IMPRESSION: + occult stool test, history of colonic polyps PLAN: I have reviewed my findings with the surgeon. Will plan for upper and lower endoscopy. We discussed the risks and benefits of the planned endoscopy. I have informed the patient that complications can occur including failure to complete the endoscopy and perforation. Charlette had the opportunity to ask questions concerning the planned endoscopy. My staff has also explained the procedure to the patient in understandable terms and has given the patient printed material concerning the procedure. Charlette freely consents to surgery. I plan to use Miralax bowel preparation Patient instructed to contact PCP for instructions regarding diabetic medication, which may requireadjustment during bowel preparation and/or day of procedure. I have explained to the patient the difference between IV conscious sedation and MAC anesthesia - and I have offered either, according to the patient's wishes. I have explained that with IV conscioussedation there is no anesthesia provider available and therefore there is a limitation of the amount of IV medications that can be given and that the patient may wake up in the middle of the procedure and/or experience pain/discomfort during the procedure. Further discussion was done and the patient was given the opportunity to ask questions and all questions were answered. Charlette chooses IV conscious sedation Charlette was counseled that if there are changes in his/her medical condition, to let the office know if surgery should proceed. If there are changes in patient's medical condition from time of this encounter to the day of the procedure that preclude anesthesia, patient may have procedure cancelled for patient's safety. Diagnoses: (Z86.0100) History of colonic polyps (primary encounter diagnosis) (R19.5) Positive fecal occult blood test Consultation requested by Tosha Podlogjeffry BONDS for an opinion regarding + fecal occult stool test. Myfinal recommendations will be communicated back to the requesting physician by way of shared Medical record or letter to requesting physician via US mail. Portions of this documentation were copied and pasted from previous office visit notes in order to provide a cohesive continuity of the history. The note has been reviewed and edited and updated as necessary. Mariah Odonnell APRN.CNP UPDATED HISTORY AND PHYSICAL EXAMINATION SERVICE DATE: 07/12/2024 SERVICE TIME: 8:47 AM SENSITIVE EXAMINATION CONSENT: The sensitive examination was discussed with the Patient or Patient's Authorized Yarder Puncher. Asapplicable, any other physician, advance practice provider, medical student, or other health professional student that will be observing or involved in the sensitive examination for educational or training purposes was discussed with the Patient or Authorized Yarder Puncher. The Patient or Authorized Yarder Puncher has agreed to proceed with the sensitive examination. (Sensitive examination includes inspection and/or palpation of the breasts, pelvis, prostate and anorectal regions) PHYSICAL EXAM MUST BE COMPLETED ON ADMISSION The History and Physical (completed in the past 30 days) has been reviewed and the patient has beenexamined. The contents accurately reflect the patient's condition with the following additions or revisions since the H&P was completed. Examination indicates no changes. This H&P can be found in the attached. SIGNATURE: Simon Driscoll III, MD PATIENT NAME: Charlette Farmer DATE: July 12, 2024 TIME: 8:47 AM [facility] Tele[facility] encounter Note * Telephone Encounter - Maribel Fay MD - 07/11/2024 8:59 AM EDT Agree. [facility]10-[facility] Miscellaneous Notes* Telephone Encounter - Maribel Fay MD - 07/11/2024 8:59 AM EDT Agree. * Telephone Encounter - Paris Umanzor RN - 07/11/2024 8:25 AM EDT Pt called and is notified of providers message and instructions. Pt voices understanding. She states her BSs have been in the low 100s, but she has been on a liquid diet for 4 days. Pt states she gets her Colonoscopy tomorrow. Pt reports she has been drinking fruit juice and broth. Pt denied doing anything special for her BS as it has only been in the 100s. Pt states she will 1/2 the Lantus tonight, but resume normal dose tomorrow after procedure. Paris Umanzor RN * Telephone Encounter - Maribel Fay MD - 07/11/2024 7:03 AM EDT If she is not eating a regular diet, she should reduce her lantus dose by 1/2. In this case, she would take 12 units of insulin to prevent sugar from going too high or too low. How has she been correcting her low sugar? * Telephone Encounter - Montserrat Perales LPN - 07/10/2024 3:10 PM EDT Patient calling she is scheduled for EGD and colonoscopy on with Dr Driscoll. Her blood sugars are going low since she is doing the clear liquids. Yesterday blood sugar was 67 and today was 63. Patient has been taking Lantus insulin 24 units at bedtime. Patient is asking if she could reduceher insulin dose? Please advise [facility] Telephone encounter Note * Telephone Encounter - Paris Umanzor RN - 07/11/2024 8:25 AM EDT Pt called and is notified of providers message and instructions. Pt voices understanding. She states her BSs have been in the low 100s, but she has been on a liquid diet for 4 days. Pt states she gets her Colonoscopy tomorrow. Pt reports she has been drinking fruit juice and broth. Pt denied doing anything special for her BS as it has only been in the 100s. Pt states she will 1/2 the Lantus tonight, but resume normal dose tomorrow after procedure. Paris Umanzor RN [facility]10-[facility] Telephone encounter Note* Telephone Encounter - Maribel Fay MD - 07/11/2024 7:03 AM EDT If she is not eating a regular diet, she should reduce her lantus dose by 1/2. In this case, she would take 12 units of insulin to prevent sugar from going too high or too low. How has she been correcting her low sugar? [facility]10-[facility] Telephone encounter Note* Telephone Encounter - Montserrat Perales LPN - 07/10/2024 3:10 PM EDT Patient calling she is scheduled for EGD and colonoscopy on with Dr Driscoll. Her blood sugars are going low since she is doing the clear liquids. Yesterday blood sugar was 67 and today was 63. Patient has been taking Lantus insulin 24 units at bedtime. Patient is asking if she could reduceher insulin dose? Please advise [facility]10-[facility] Telephone encounter Note* Telephone Encounter - Pauline Bull - 07/09/2024 9:30 AM EDT Patient seen Mariah odonnell 06/19/[address] Driscoll in [facility] this and is needing to review prep instructions with a nurse. Patient do Miralax Dulcolax Please advise Pauline Bull Community Engagement Manager [facility]10-21-2024 Miscellaneous Notes* Telephone Encounter - Pauline Bull - 07/09/2024 9:30 AM EDT Patient seen Mariah odonnell 06/19/[address] Driscoll in [facility] this and is needing to review prep instructions with a nurse. Patient do Miralax Dulcolax Please advise Pauline Bull Community Engagement Manager documented in this encounterA[facility]10-[facility] Miscellaneous Notes* Telephone Encounter - Colette Gilman LPN - 07/04/2024 10:42 AM EDT Spoke with pt and information listed below given. Pt verbalizes understanding. Colette Gilman LPN * Telephone Encounter - Tosha Pelaez APRN.VAMSHI - 07/04/2024 9:04 AM EDT She can keep it at the 24 units as log as she is not getting lows. Have her update me in one week with blood sugar readings and we can increase if needed Tosha Pelaez APRN.SHELF FILLER * Telephone Encounter - Cheryl Billy RN - 07/03/2024 4:08 PM EDT Patient calls back and states that her sugars have been running in the upper 100s and even getting as high as 202. Patient does not remember who increased Lantus. Looking at her chart, Dr. Fay had increased her Lantus to 24 units while she was on prednisone see telephone note from 06/07/2024. Patient did not realize that she was supposed to be going back down to 22 units. Please send refill of Lantus. Please review and advise, Cheryl Billy RN * Telephone Encounter - Kassandra Harrison LPN - 07/03/2024 1:16 PM EDT Telephone call to patient. Message left to call office back for update. Kassandra Harrison LPN * Telephone Encounter - Tosha Pelaez APRN.VAMSHI - 07/02/2024 11:25 AM EDT Tell her to take half of her Lantus the night before the colonoscopy. Can you see what her blood sugars have been running and ask her why she is taking 24 units- since I increased it to 22. Who increased it to 24 units? Tosha Pelaez APRN.VAMSHI * Telephone Encounter - Gay Alonzo LPN - 07/02/2024 10:36 AM EDT Pt calls for two reasons: 1) pt is getting a colonoscopy on 07/12 and is asking what she should do about diabetic medications. 2) Requesting refill on Lantus. Pt reports she is taking 24 units at bedtime. At appt on 05/16/24 Lantus was increased to 22 units. Do not see another increase to 24 units. Please review rx and amounts. Gay Alonzo LPN documented in [facility] encounterA[facility]10-[facility] Telephone encounter Note * Telephone Encounter - Colette Gilman LPN - 07/04/2024 10:42 AM EDT Spoke with pt and information listed below given. Pt verbalizes understanding. Colette Gilman LPN [facility]10-16-[facility]24 Telephone encounter Note* Telephone Encounter - Tosha Pelaez APRN.CNP - 07/04/2024 9:04 AM EDT She can keep it at the 24 units as log as she is not getting lows. Have her update me in one week with blood sugar readings and we can increase if needed Tosha Pelaez APRN.VAMSHI [facility]10-[facility]24 Telephone encounter Note* Telephone Encounter - Cheryl Billy RN - 07/03/2024 4:08 PM EDT Patient calls back and states that her sugars have been running in the upper 100s and even getting as high as . Patient does not remember who increased Lantus. Looking at her chart, Dr. Fay had increased her Lantus to 24 units while she was on prednisone see telephone note from 06/07/2024. Patient did not realize that she was supposed to be going back down to 22 units. Please send refill of Lantus. Please review and advise, Cheryl Billy RN T [facility]10-15-2024 Telephone encounter Note* Telephone Encounter - Kassandra Harrison LPN - 07/03/2024 1:16 PM EDT Telephone call to patient. Message left to call office back for update. Kassandra Harrison LPN [facility]10-14-2024 Telephone encounter Note* Telephone Encounter - Tosha Pelaez APRN.CNP - 07/02/2024 11:25 AM EDT Tell her to take half of her Lantus the night before the colonoscopy. Can you see what her blood sugars have been running and ask her why she is taking 24 units- since I increased it to 22. Who increased it to 24 units? Tosha Pelaez APRN.VAMSHI [facility]10-14-2024 Telephone encounter Note* Telephone Encounter - Gay Alonzo LPN - 07/02/2024 10:36 AM EDT Pt calls for two reasons: 1) pt is getting a colonoscopy on 07/12 and is asking what she should do about diabetic medications. 2) Requesting refill on Lantus. Pt reports she is taking 24 units at bedtime. At appt on 05/16/24 Lantus was increased to 22 units. Do not see another increase to 24 units. Please review rx and amounts. Gay Alonzo LPN [facility]10-11-2024 NoteHNO ID: [id number] Author: VERENICE WHITFIELD MA Service: ? Author Type: Cost Accounting Manager Type: Progress Notes Filed: 06/29/2024 12:16 Note Text: POPULATION HEALTH NAVIGATION OUTREACH Action/FYI msg to schedule wellness, influenza, hgba1c order is in scheduling ticket sent Reason for Outreach Care Gap/HCC or Scheduling Wellness Visits Care Gaps due: Medicare Annual Wellness Visit HBA1C Flu Vaccine Patient Contacted: Unable or unnecessary to reach patient: Unable to leave message [employer] Direct message sent Navigation Signature: Verenice Whitfield MA June 29, 2024 12:15 [facility]10-11-2024 History of Present illness Narrative* Verenice Whitfield MA - 06/29/2024 12:14 PM EDT POPULATION HEALTH NAVIGATION OUTREACH Action/FYI msg to schedule wellness, influenza, hgba1c order is in scheduling ticket sent Reason for Outreach Care Gap/HCC or Scheduling Wellness Visits Care Gaps due: Medicare Annual Wellness Visit HBA1C Flu Vaccine Patient Contacted: Unable or unnecessary to reach patient: Unable to leave message [employer] Direct message sent Navigation Signature: Verenice Whitfield MA June 29, 2024 12:15 PM documented in this encounterA[facility]10-11-2024 NotePatient Outreach (NETNAV) CHARLETTE FARMER ([id number]) 1935 F Date Time Provider Department 06/29/24 VERENICE WHITFIELD During your visit today, we recorded the following information about you: Verenice Whitfield MA 06/29/2024 12:16 PM Signed POPULATION HEALTH NAVIGATION OUTREACH Action/FYI msg to schedule wellness, influenza, hgba1c order is in scheduling ticket sent Reason for Outreach Care Gap/HCC or Scheduling Wellness Visits Care Gaps due: Medicare Annual Wellness Visit HBA1C Flu Vaccine Patient Contacted: Unable or unnecessary to reach patient: Unable to leave message [employer] Direct message sent Navigation Signature: Vereniceshahbaz Whitfield MA June 29, 2024 12:15 PM Allergies As of Date: 06/29/2024 Noted Allergy Reaction LIPITOR (ATORVASTATIN) 07/19/2007 5 - Intolerance Comments: myalgia SIMVASTATIN 07/19/2007 5 - Intolerance Comments: myalgia Date Reviewed: 06/19/2024 Reviewed by: Altagracia Hazel RN - Fully Assessed Reason for Visit: Population Health Navigation Outreach [3910] Cmt: Candice lorenzo Prescriptions as of 06/29/2024 - gabapentin (NEURONTIN) 400 mg capsule Take 1 capsule by mouth two times a day for 180 days. - cyanocobalamin (VITAMIN B-12) 1,000 mcg tab Take one tablet every other day Dx: pernicious anemia - allopurinol (ZYLOPRIM) 100 mg tablet Take 1 tablet by mouth two times a day. - insulin glargine (LANTUS SOLOSTAR U-100 INSULIN) 100 unit/mL (3 mL) Inject 22 Units subcutaneously daily at bedtime. - hydroCHLOROthiazide 12.5 mg capsule Take 1 capsule by mouth once daily. - lisinopril 2.5 mg tablet Take 1 tablet by mouth once daily. - rosuvastatin (CRESTOR) 20 mg tablet Take 1 tablet by mouth daily at bedtime. - pramipexole (MIRAPEX) 0.25 mg tablet Take 1 tablet by mouth daily at bedtime. - blood sugar diagnostic (TRUE METRIX GLUCOSE TEST STRIP) test strip Test once daily DX:250.02 Insulin: Yes - Lancets lancets Pt requests Truedraw lancets. Test blood sugar(s) 1 times daily. Dx: Other DM Code 250.02 Insulin: Yes - Lancets (ACCU-CHEK SOFTCLIX LANCETS) lancets Use Three times daily to check blood sugar - Insulin Volborg, Disposable, (PEN NEEDLE) 29 gauge x 1/2 One needle once daily. Dx: 250.02 Insulin: yes - Acetaminophen 500 mg cap Take 2 capsules by mouth two times a day as needed for pain. Reports will utilize 1 500mg tab 1-2 times in between the 1000 mg doses - Miscellaneous Medical Supply (BLOOD PRESSURE CUFF) 1 Each once daily. - ondansetron (ZOFRAN) 4 mg tablet Take 4 mg by mouth every 8 hours as needed for nausea/vomiting. - meclizine (ANTIVERT) 25 mg tab Take 25 mg by mouth three times a day. - cephALEXin (KEFLEX) 500 mg capsule Take 500 mg by mouth three times a day. - blood sugar diagnostic (BLOOD GLUCOSE TEST) test strip Test blood sugar(s) 2 times daily. Dx: Type 2 DM - Controlled E11.9 Insulin: Yes - ammonium lactate (LAC-HYDRIN) 12 % lotion Apply 1 application to affected area as needed for Dry Skin. - melatonin 3 mg Take by mouth daily at bedtime. - COMPOUNDED PRESCRIPTION Cock up wrist splint, right Medium. To be worn nightly to prevent carpal tunnel symptoms. Dx: carpal tunnel right - Cholecalciferol, Vitamin D3, 1,000 unit cap Take 1 capsule by mouth once daily. - Blood-Glucose Meter, Drum-type (ACCU-CHEK COMPACT PLUS CARE) Misc Kit 1 Each. Accu-Check Compact Plus Meter Diagnosis: Diabetes Mellitus - ASPIRIN 81 MG TAB Take one (1) tablet daily . Problem List As Of Date 06/29/2024 Noted Resolved Other specified disorders of rotator cuff syndr*02/16/2006 10/18/2016 Malignant neoplasm of corpus uteri, except isth* 11/24/2015 HYPERLIPIDEMIA NEC/NOS [E78.5] 10/14/2015 Lumbago [M54.50] 06/15/2016 DIABETES MELLITUS TYPE II UNCONTR UNCOMPL [IMO0* 07/18/2014 HYPERTENSION NOS [I10] 10/14/2015 Special screening for malignant neoplasms, colo*11/12/2008 11/24/2015 Benign neoplasm of colon [D12.6] 11/12/2008 11/24/2015 Diverticulosis of colon [K57.30] 11/12/2008 Internal hemorrhoids without mention of complic*11/12/2008 10/14/2015 Tubular adenoma of rectum [D12.8] 02/25/2011 11/24/2015 Pernicious anemia [D51.0] 08/25/2012 Medicare annual wellness visit, initial [Z00.00]09/28/2013 11/24/2015 Stage 3b chronic kidney disease (HCC) [N18.32] 04/12/2014 PAD (peripheral artery disease) (HCC) [I73.9] 05/02/2014 Medicare annual wellness visit, subsequent [Z00*10/11/2014 11/24/2015 Diabetes mellitus with neuropathy (HCC) [E11.40]10/11/2014 11/24/2015 Essential hypertension [I10] 10/14/2015 Mixed hyperlipidemia [E78.2] 10/14/2015 DM type 2 with diabetic peripheral neuropathy (*11/12/2015 Trigger middle finger of right hand [M65.331] 11/20/2015 Trigger finger, left ring finger [M65.342] 08/25/2017 Restless leg syndrome [G25.81] Type 2 diabetes mellitus with diabetic chronic *08/15/2023 Type 2 bia (more content not included)...[facility]10-01-2024 Instructions* Patient Instructions* Mariah Odonnell APRN.SHELF FILLER - 06/19/2024 11:31 AM EDT Images from the original note were not included. Please see prep instructions below. This is NOT a script. This will be found over the counter at any pharmacy. If you have any questions please don't hesitate to call me at [phone] Have a good day Pauline Bull Community Engagement Manager Miralax/Dulcolax Bowel Prep For this bowel preparation you will need to shrimp picker the following medications at any pharmacy. Four (4) Dulcolax tablets (generic name Bisacodyl) 238 Gram (or 8.3 oz.) Bottle of Miralax (Generic name Polyethylene Glycol) A responsible family member or friend MUST be available to drive you home after your procedure. Youare NOT ALLOWED to drive, take a taxi, or leave the [facility] Center ALONE. If you do NOT have a responsible local flatbed driver (family member or friend) to take you home, your exam cannot be done with sedation and WILL BE cancelled. Please remove all jewelry if possible. The [facility] or [facility] (depending on where your procedure is scheduled) will call you THE DAY BEFORE YOUR PROCEDURE with your arrival time. The time in My Chart is just an estimate. Please arriveat the time you are told the day before. Medication BLOOD THINNERS - Blood thinner medication may need to be stopped or adjusted before your colonoscopy, such as Coumadin, Plavix, Paradaxa and Eliquis. - Contact prescribing physician regarding holdingany blood thinner medication. If you were seen in the general surgery office, please follow their instructions as to if and when to hold any blood thinners. If you are having this procedure done by the request of any other providers and were NOT seen in our office, please contact your physician's office to see if you need to hold any medication prior to your procedure. INSULIN and/or DIABETIC MEDICATION -Please call the doctor that monitors your glucose levels. Your insulin dosage needs to be adjusted due to the diet restrictions required with this bowl preparation(please bring your diabetic medication with you on the day of your procedure). If you are on any of the listed medications below, please follow the instructions as to when to stop your medications. If you have any questions or concerns regarding your diabetic medication, pleasecontact your ordering providers office. Failure to hold the medications below could lead to the canc ellation of your procedure. Diabetic Medication Day Prior to Surgery Day of Surgery Communication Oral hypoglycemics (except SGLT2 inhibitors) Continue Hold all on DOS Nurse verifies patient did not take oral medications. Blood glucose checked in preoperative area SGLT2 inhibitors Canagliflozin (Invokana) Dapagliflozin (Farxiga) Empaglifozin (Jardiance) Hold 3 days preoperatively Hold Nurse verifies patient has not taken the medication 3 days preoperatively and has held DOS. Blood glucose check on arrival. SGLT2 inhibitor Ertugliflozin (Steglatro) Hold 4 days preoperatively Hold Nurse verifies patient has not taken the medication 4 days preoperatively and has held DOS. Blood glucose check on arrival. Non-insulin injectables (Except GLP-1 agonists) Take normal dose Hold all Nurse verifies patient has held. Blood glucose check on arrival GLP-1 Agonists (Injected) Semaglutide (Ozempic/Wegovy) Lixisenatide (Adlyxin) Tirzepatide (Mounjaro/Zepbound) Dulaglutide (Trulicity) Hold the week prior to surgery Hold Nurse verifies time of last dose and documents. Assess for symptoms of satiety or nausea. If patient took the week prior to surgery or on DOS, contact the anesthesiologist. GLP-1 Agonists (Daily Injected) Exenatide (Bydureon/ Byetta) Liraglutide (Victoza/Saxenda) Insulin glargine / lixisenatide (Soliqua) Continue Hold on DOS GLP-1 Agonists (oral) Semaglutide (Reybelsus) Continue Hold on DOS Nurse verifies time of last dose and documents. Assessfor symptoms of satiety or nausea. If patient took DOS, contact the anesthesiologist. Insulin pump Follow protocol Follow protocol Nurse verifies settings. Blood glucose check on arrival Long- or intermediate-acting insulin (Levemir, Lantus, NPH etc.) Take 75% of normal dose the night before surgery if possible Check fasting AM glucose. If 200 or greater, take half the prescribed dose. If under 200, hold AM dose. Nurse verifies dose and time. Blood glucose check on arrival. If you take GLP-1 agonists such as semaglutide (Ozempic, Wegovy, Rybelsus), dulaglutide (Trulicity), liraglutide (Victoza, Saxenda), exenatide (Byetta, Bydureon), or lixisenatide (Adylyxin), tirzepatide (MOUNJARO). if you take medication once or twice daily, do not take your medication for 1 day prior to your procedure if you take these medications weekly, do not take your medication the week ( hold the prior week's dose) before your procedure If you take aspirin, take it and ALL other medication prescribed by your doctor unless told otherwise by either the physician's office or Pre-Admission testing if having procedure done in a hospital setting (PACC) with a small sip of water only. You may take over the counter medications if you havea headache. TAKE ALL BLOOD PRESSURE MEDICATION THE MORNING OF THE PROCEDURE. Failure to take usual morning blood pressure meds may result in cancellation of the procedure if hypertensive. Hold erectile dysfunction medications for 48 hrs. prior to the procedure. Five (5) days before your colonoscopy Do not take medications that stop Diarrhea - Imodium, Kaopectate, or Pepto Bismol Do NOT take fiber supplements - Metamucil, Citrucel, FiberCon Do NOT take products that contain iron (check vitamin label) Two (2) to three (3) days before your colonoscopy DO NOT EAT HIGH FIBER FOODS No beans, seeds (flax, sunflower, quinoa), nuts, popcorn, multigrain bread salad/vegetables, or fresh and dried fruit. Do not eat red meat 3 days before your procedure. YOU MAY EAT Lean Chicken breast, fish, eggs, and soup YOU MUST BE ON CLEAR LIQUIDS FOR 2 FULL DAYS PRIOR TO PROCEDURE Two (2) Days before your colonoscopy ONLY DRINK CLEAR LIQUIDS for 2 DAYs BEFORE YOUR COLONOSCOPY. DO NOT EAT ANY SOLID FOODS. Drink at least eight (8) ounces of clear liquids every hour after waking up. Clear fluids include: Water, apple juice, white grape juice, broth (beef, chicken or vegetable), coffee and/or tea (NO DAIRY, MILK OR CREAMER) clear carbonated beverages (sprite, 7-up, livia-fitz), Gatorade, or other sport drinks, Perry-Aid, Jell-O, Gummy Bears and popsicles. NOTHING RED IN COLOR. DO NOT DRINK ALCOHOL the day before or the day of your procedure. DAY 1 (2 days before your colonoscopy) Clear Liquids all day, you may have water, coffee or tea- NO DAIRY, Clear broth (Beef, Chicken or vegetable) Clear carbonated beverages, apple juice, white grape juice , Gatorade, Jell-O, Perry-Aid, and popsicles. NO DAIRY, TOMATO, OR ORANGE JUICE. NO RED OR PURPLE! DAY 2 - (day before your colonoscopy) SAME DAY 1, Continue clear fluids and then follow the instructions below~ 8:00 AM - May Mix the Miralax prep with 64 oz. of Gatorade or any of the clear fluids listed above and place in fridge. 1:00 PM - Take 2 Dulcolax Tablets with 8oz of water 3:00 PM - Start to drink the Miralax mixture. - Finish by midnight 4:00 PM - Take 2 Dulcolax tablets with 8oz of water. You may continue to drink clear liquids while you are taking your prep and after you finish as longas it is before midnight. Drink lots of fluids so you don't become dehydrated. Nothing to drink after midnight unless instructed otherwise by nursing staff and/or physician. Please remember to take your normal medications the morning of your procedure with a small sip of water especially your blood pressure medications. If you are diabetic, you need to contact your physiciansregarding how to take your diabetic medications and/or insulin during the prepping period and the day of the procedure. The times above are a general guide. You may change the times if needed to accommodate your schedule. Example, instead of taking your first step at 1 PM you may take your first step at 6 PM. Your time frames would be: 6 PM take 2 Dulcolax tablets, at 8 PM you would start drinking the Miralax mixture and at 9 PM you would take two more Dulcolax tablets. Any questions please call [phone] or [phone] and ask for the general surgery nurses. What is a colonoscopy? A colonoscopy is an outpatient procedure in which the inside of the large intestine (colon and rectum) is examined. A colonoscopy is commonly used to evaluate gastrointestinal symptoms, such as rectal and intestinal bleeding, abdominal pain, or change in bowel habits. Colonoscopies are also performed in individuals without symptoms to check for colorectal polyps or cancer. A screening colonoscopyis recommended for anyone 50 years of age or older, and for anyone with parents, siblings, or children with a history of colorectal cancer or polyps. What happens before a colonoscopy? To have a successful colonoscopy, your bowel must be empty so that your physician can clearly view the colon. To do this, it is very important to read and follow all of the instructions given to you at least 2 weeks BEFORE your exam. If your bowel is not empty, your colonoscopy will not be successful and may have to be repeated. If you feel nauseated or vomit while taking the bowel preparation, wait 30 minutes before drinking more fluid and start with small sips of solution. Some activity (such as walking) may help decrease the nausea you are feeling. If the nausea persist, please contact the office at [phone] and askfor the provider's office that scheduled your colonoscopy or nurse senior production supervisor at [phone]. You may experience skin irritation around the anus due to the passage of liquid stool. To prevent and treat skin irritation you should: Apply Vaseline or Desitin ointment to the skin around the anus before drinking the bowel preparation medications. These products can be purchased at any drugstore. Wipe the skin after each bowel movement with disposable wet wipes instead of toilet paper. These are found in the toilet paper area of the store. Sit in a bathtub filled with warm water for 10-15 minutes after you finish passing a stool; after soaking blot the skin dry with a soft cloth, apply Vaseline or Desitin ointment to the anal area, andplace a cotton ball just outside your anus to absorb any leaking fluid. What happens during a Colonoscopy? During a colonoscopy, an experienced physician uses a colonoscope (a long, flexible instrument about inch in diameter) to view the lining of the colon, the colonscope is inserted into the rectum and advanced through the large intestine. If necessary during a colonoscopy, small amounts of tissue canbe removed for analysis (biopsy) and polyps can be identifies and entirely removed. In many cases, a colonoscopy allows accurate diagnosis and treatment of colorectal problems without the need for a major operation. You are asked to wear a hospital gown and an IV will be started You are given a pain reliever and sedative intravenously (in your vein). You will feel relaxed and somewhat drowsy You will lie on your left side, with your knees drawn up towards your chest A small amount of air is used to expand the colon so the physicians can see the colon layne. You may feel mild cramping during the procedure. Cramping can be reduced by taking slow, deep breaths. The colonoscope is slowly withdrawn while the lining of your bowel is carefully examined. The procedure last from approximately 30-60 min. What happens after a Colonoscopy? You will stay in a recovery room for observation until you are ready for discharge You may feel some cramping and/or a sensation of having gas, but this quickly passes If sedation has been given, a responsible family member or friend MUST drive you home. Avoid alcohol, driving and operating machinery for 24 hrs. following the procedure. Unless otherwise instructed, you may immediately return to your normal diet. We recommend you wait until the day after your procedure to resume normal activities. If Polyps were removed or a biopsy was taken, the physicians performing the colonoscopy will tell you when it is safe to resume taking your blood thinners. If a biopsy was taken or if a polyp was removed, you will notice a little amount of rectal bleedingfor 1-2 days after the procedure. If you have a large amount of rectal bleeding, high or persistentfever, or severe abdominal pain within the next 2 weeks, please go to your local emergency room andcall the physician who performed your exam. documented [facility] History of Present illness Narrative* Mariah Odonnell APRN.CNP - 06/19/2024 11:30 AM EDT HISTORY AND PHYSICAL Charlette Farmer : 1935 REFERRING PHYSICIAN: Tosha Pelaez [address] [facility] [address] CHIEF COMPLAINT: Patient presents with: Consult: colonoscopy HPI: Charlette is a 89 year old female referred for endoscopy. Charlette notes + fecal occult stool. Charlette denies abdominal pain. Charlette denies diarrhea. Charlette denies constipation. Charlette denies a change in bowel habits. Charlette denies melena. Chralette denies bright red blood per rectum. Charlette denies hemorrhoids. Charlette denies heartburn. Charlette denies dysphagia. Charlette denies a history of ulcers/ peptic ulcer disease. Charlette Denies family history of colon issues. Charlette has past medical history significant for DMT2, HTN, CKD stage 3. She denies CP, SOB, dizziness, palpitations, syncope, edema, recent hospitalizations Charlette has undergone prior endoscopy. Last colonoscopy was 12/[address] Phillips at [facility]. Sedationreceived: Midazolam 2 mg IV, Fentanyl 50 micrograms IV, Diphenhydramine 50 mg IV Impression: - Non-bleeding external and internal hemorrhoids. - Three small polyps in the rectum, removed with a cold snare. Resected and retrieved. PATHOLOGY CONVERTED FINAL DIAGNOSIS Rectum, polypectomy - Tubular adenoma. KL/lbk 01/08/2021 Current Outpatient Medications Medication Sig gabapentin (NEURONTIN) 400 mg capsule Take 1 capsule by mouth two times a day for 180 days. cyanocobalamin (VITAMIN B-12) 1,000 mcg tab Take one tablet every other day Dx: pernicious anemia allopurinol (ZYLOPRIM) 100 mg tablet Take 1 tablet by mouth two times a day. insulin glargine (LANTUS SOLOSTAR U-100 INSULIN) 100 unit/mL (3 mL) Inject 22 Units subcutaneously daily at bedtime. hydroCHLOROthiazide 12.5 mg capsule Take 1 capsule by mouth once daily. lisinopril 2.5 mg tablet Take 1 tablet by mouth once daily. rosuvastatin (CRESTOR) 20 mg tablet Take 1 tablet by mouth daily at bedtime. pramipexole (MIRAPEX) 0.25 mg tablet Take 1 tablet by mouth daily at bedtime. blood sugar diagnostic (TRUE METRIX GLUCOSE TEST STRIP) test strip Test once daily DX:250.02 Insulin: Yes Lancets lancets Pt requests Truedraw lancets. Test blood sugar(s) 1 times daily. Dx: Other DM Code 250.02 Insulin: Yes Lancets (ACCU-CHEK SOFTCLIX LANCETS) lancets Use Three times daily to check blood sugar Insulin Volborg, Disposable, (PEN NEEDLE) 29 gauge x 1/2 One needle once daily. Dx: 250.02 Insulin: yes Acetaminophen 500 mg cap Take 2 capsules by mouth two times a day as needed for pain. Reports will utilize 1 500mg tab 1-2 times in between the 1000 mg doses Miscellaneous Medical Supply (BLOOD PRESSURE CUFF) 1 Each once daily. ondansetron (ZOFRAN) 4 mg tablet Take 4 mg by mouth every 8 hours as needed for nausea/vomiting. meclizine (ANTIVERT) 25 mg tab Take 25 mg by mouth three times a day. blood sugar diagnostic (BLOOD GLUCOSE TEST) test strip Test blood sugar(s) 2 times daily. Dx: Type 2 DM - Controlled E11.9 Insulin: Yes ammonium lactate (LAC-HYDRIN) 12 % lotion Apply 1 application to affected area as needed for Dry Skin. melatonin 3 mg Take by mouth daily at bedtime. COMPOUNDED PRESCRIPTION Cock up wrist splint, right Medium. To be worn nightly to prevent carpal tunnel symptoms. Dx: carpal tunnel right Cholecalciferol, Vitamin D3, 1,000 unit cap Take 1 capsule by mouth once daily. Blood-Glucose Meter, Drum-type (ACCU-CHEK COMPACT PLUS CARE) Misc Kit 1 Each. Accu-Check Compact Plus Meter Diagnosis: Diabetes Mellitus ASPIRIN 81 MG TAB Take one (1) tablet daily . cephALEXin (KEFLEX) 500 mg capsule Take 500 mg by mouth three times a day. (Patient not taking: Reported on 04/06/2024) No current facility-administered medications for this visit. ALLERGIES: Lipitor [Atorvastatin] and Simvastatin PAST MEDICAL HISTORY Diagnosis Date Arthritis Benign neoplasm of colon tubular adenoma Carpal tunnel syndrome, right Chronic kidney disease, stage 3 (HCC) Diverticulitis 10/10/2020 Diverticulosis of colon (without mention of hemorrhage) Gout History of transfusion Internal hemorrhoids without mention of complication Lumbago Malignant neoplasm of corpus uteri, except isthmus (HCC) 1996 Uterine cancer Other and unspecified hyperlipidemia PAD (peripheral artery disease) (HCC) 2013 Mild LLE Pernicious anemia Restless leg syndrome Rotator cuff tendinitis left Trigger finger, right middle finger Seen by Dr. Burns 2015 Type II or unspecified type diabetes mellitus without mention of complication, uncontrolled Unspecified essential hypertension PAST SURGICAL HISTORY Procedure Laterality Date ABDOMINAL SURGERY HX APPENDECTOMY 1952 BACK SURGERY HX CHOLECYSTECTOMY 11/28/2011 COLONOSCOPY FLX DX W/COLLJ SPEC WHEN PFRMD 2001 out of state sigmoidoscopy COLONOSCOPY FLX DX W/COLLJ SPEC WHEN PFRMD 10/22/2013 Colonoscopy COLONOSCOPY GEN ANES 01/07/2021 Dr. Phillips, Polyps. repeat in 3 years. COLONOSCOPY W/BIOPSY SINGLE/MULTIPLE 11/12/2008 DILATION & CURETTAGE DX&/THER NONOBSTETRIC 1965 Dilation & curettage EGD 01/07/2021 EYE SURGERY HX LAMINECTOMY W/O FFD 09/20 VERT SEG LUMBAR 1971 Laminectomy, lumbar, fusion PAST SURGICAL HISTORY OF Left 09/01/2017 Trigger finger release of left ringer finger REVISE MEDIAN N/CARPAL TUNNEL SURG Right 05/31/2023 TONSILLECTOMY HX TUBAL LIGATION HX VAGINAL HYSTERECTOMY VAGINAL HYSTERECTOMY UTERUS 250 GM/< 1996 Hysterectomy, vaginal FAMILY HISTORY Problem Relation Age of Onset Cancer Mother breast, lung cancer was heavy smoker Diabetes Maternal Grandmother Diabetes Maternal Grandfather other (no siblings) Maternal Grandfather Social History Tobacco Use Smoking status: Former Current packs/day: 0.00 Average packs/day: 1 pack/day for 21.0 years (21.0 ttl pk-yrs) Types: Cigarettes Start date: 11/23/1952 Quit date: 09/19/1973 Years since quittin.7 Smokeless tobacco: Never Vaping Use Vaping status: Never Used Substance Use Topics Alcohol use: Yes Comment: occas glass of wine Drug use: No REVIEW OF SYMPTOMS: The review of systems data was entered by the nurse and reviewed by me Nursing Notes: Altagracia Hazel RN 06/19/2024 11:19 AM Signed REVIEW OF SYSTEMS: General: The patient NOTES fatigue, denies weight loss, denies weight gain, denies feeling hot, anddenies feelings of cold. Eyes: The patient denies glaucoma, denies eye injury/surgery, wears glasses or contacts. Ear/Nose/Throat: The patient denies allergies, denies hayfever, denies ear infections, and denies bloody noses. Cardiovascular: The patient denies chest pain, denies heart disease, NOTES high blood pressure,denies cardiac stent, denies prior heart attack, denies irregular heart beat, NOTES high cholesterol, denies poor circulation, denies heart failure, other cardiac issues, NOTES claudication, denies cold feet, denies peripheral arterial stent. Respiratory: The patient denies tuberculosis, denies pneumonia, denies frequent cough, denies pulmonary embolism, NOTES shortness of breath, and denies coughing up blood. Gastrointestinal: The patient denies difficulty swallowing, denies acid reflux, denies ulcers, denies vomiting, denies jaundice/hepatitis, NOTES gallbladder problems, denies black or tarry stools, denies hemorrhoids, denies bleeding from rectum, denies diverticulitis, NOTES constipation, NOTES diarrhea, denies loss of stool control, and denies hernias. Kidney/Bladder: The patient NOTES kidney failure, denies urine infections, and denies bloody urine. Skin: The patient denies a history of skin cancer, denies bleeding/changing moles, and denies a history of skin rash. Neurologic: The patient denies a history of epilepsy/convulsions, denies headaches, NOTES head/spinal injuries, and denies stroke/TIA. Psychiatric: The patient denies psychiatric medications, denies depression, and denies voices, denies substance abuse. Endocrine: The patient denies thyroid disorders, NOTES diabetes, and denies hormonal problems. Hematologic: The patient denies a history of bruising, denies bleeding, and NOTES anemia, denies blood clots. Infections: The patient denies a history of measles and mumps, denies rheumatic fever, and denies sexually transmitted diseases. Musculoskeletal: The patient denies back pain/injury, denies back problems, denies sciatica, deniesknee/foot trouble, denies arthritis, or NOTES gout. When was patient's last Mammogram screening? 5 YEARS Last Colonoscopy: 01/07/2021 Altagracia Hazel RN PHYSICAL EXAMINATION: General: The patient is 89 year old, female well nourished, well hydrated in no acute distress. Thepatient is oriented to time, place, and person. VITALS: Blood pressure 114/62, pulse 94, temperature 36.2 C (97.1 F), height 154.9 cm (5' 1), weight 67.6 kg (149 lb), SpO2 96%. Body mass index is 28.15 kg/m . HEENT: Normal cephalic, ataumatic, pupils are equally round, sclera are anicteric, mucous membranesare moist, oropharynx is clear. Neck has no masses, asymmetry or lymphadenopathy. Respiratory: Clear to auscultation and percussion. Normal respiratory excursion and pattern. Cardiac: Examination is regular rate and rhythm. Normal S1/S2 Abdominal exam: Soft, nontender, with no palpable masses. No hepatosplenomegaly. No palpable hernias. Extremities: no clubbing, cyanosis or edema. No adenopathy. LABORATORY VALUES: As Noted RADIOLOGIC STUDIES: As Noted Assessment IMPRESSION: + occult stool test, history of colonic polyps PLAN: I have reviewed my findings with the surgeon. Will plan for upper and lower endoscopy. We discussed the risks and benefits of the planned endoscopy. I have informed the patient that complications can occur including failure to complete the endoscopy and perforation. Charlette had the opportunity to ask questions concerning the planned endoscopy. My staff has also explained the procedure to the patient in understandable terms and has given the patient printed material concerning the procedure. Charlette freely consents to surgery. I plan to use Miralax bowel preparation Patient instructed to contact PCP for instructions regarding diabetic medication, which may requireadjustment during bowel preparation and/or day of procedure. I have explained to the patient the difference between IV conscious sedation and MAC anesthesia - and I have offered either, according to the patient's wishes. I have explained that with IV conscioussedation there is no anesthesia provider available and therefore there is a limitation of the amount of IV medications that can be given and that the patient may wake up in the middle of the procedure and/or experience pain/discomfort during the procedure. Further discussion was done and the patient was given the opportunity to ask questions and all questions were answered. Charlette chooses IV conscious sedation Charlette was counseled that if there are changes in his/her medical condition, to let the office know if surgery should proceed. If there are changes in patient's medical condition from time of this encounter to the day of the procedure that preclude anesthesia, patient may have procedure cancelled for patient's safety. Diagnoses: (Z86.0100) History of colonic polyps (primary encounter diagnosis) (R19.5) Positive fecal occult blood test Consultation requested by Tosha Pelaez CNP for an opinion regarding + fecal occult stool test. Myfinal recommendations will be communicated back to the requesting physician by way of shared Medical record or letter to requesting physician via US mail. Portions of this documentation were copied and pasted from previous office visit notes in order to provide a cohesive continuity of the history. The note has been reviewed and edited and updated as necessary. Mariah Odonnell APRN.VAMSHI documented in this encounterA[facility]10-[facility] NoteHNO ID: [id number] Author: MARIAH ODONNELL APRN.VAMSHI Service: ? Author Type: Nurse Practitioner Type: Progress Notes Filed: 06/19/2024 11:58 Note Text: HISTORY AND PHYSICAL Charlette Farmer : 1935 REFERRING PHYSICIAN: Tosha Pelaez [address] [facility] [address] CHIEF COMPLAINT: Patient presents with: Consult: colonoscopy HPI: Charlette is a 89 year old female referred for endoscopy. Charlette notes + fecal occult stool. Charlette denies abdominal pain. Charlette denies diarrhea. Charlette denies constipation. Charlette denies a change in bowel habits. Charlette denies melena. Charlette denies bright red blood per rectum. Charlette denies hemorrhoids. Charlette denies heartburn. Charlette denies dysphagia. Charlette denies a history of ulcers/ peptic ulcer disease. Charlette Denies family history of colon issues. Charlette has past medical history significant for DMT2, HTN, CKD stage 3. She denies CP, SOB, dizziness, palpitations, syncope, edema, recent hospitalizations Charlette has undergone prior endoscopy. Last colonoscopy was 12/[address] Phillips at [facility]. Sedation received: Midazolam 2 mg IV, Fentanyl 50 micrograms IV, Diphenhydramine 50 mg IV Impression: - Non-bleeding external and internal hemorrhoids. - Three small polyps in the rectum, removed with a cold snare. Resected and retrieved. PATHOLOGY CONVERTED FINAL DIAGNOSIS Rectum, polypectomy - Tubular adenoma. KL/lbk 01/08/2021 Current Outpatient Medications Medication Sig gabapentin (NEURONTIN) 400 mg capsule Take 1 capsule by mouth two times a day for 180 days. cyanocobalamin (VITAMIN B-12) 1,000 mcg tab Take one tablet every other day Dx: pernicious anemia allopurinol (ZYLOPRIM) 100 mg tablet Take 1 tablet by mouth two times a day. insulin glargine (LANTUS SOLOSTAR U-100 INSULIN) 100 unit/mL (3 mL) Inject 22 Units subcutaneously daily at bedtime. hydroCHLOROthiazide 12.5 mg capsule Take 1 capsule by mouth once daily. lisinopril 2.5 mg tablet Take 1 tablet by mouth once daily. rosuvastatin (CRESTOR) 20 mg tablet Take 1 tablet by mouth daily at bedtime. pramipexole (MIRAPEX) 0.25 mg tablet Take 1 tablet by mouth daily at bedtime. blood sugar diagnostic (TRUE METRIX GLUCOSE TEST STRIP) test strip Test once daily DX:250.02 Insulin: Yes Lancets lancets Pt requests Truedraw lancets. Test blood sugar(s) 1 times daily. Dx: Other DM Code 250.02 Insulin: Yes Lancets (ACCU-CHEK SOFTCLIX LANCETS) lancets Use Three times daily to check blood sugar Insulin Volborg, Disposable, (PEN NEEDLE) 29 gauge x 1/2 One needle once daily. Dx: 250.02 Insulin: yes Acetaminophen 500 mg cap Take 2 capsules by mouth two times a day as needed for pain. Reports will utilize 1 500mg tab 1-2 times in between the 1000 mg doses Miscellaneous Medical Supply (BLOOD PRESSURE CUFF) 1 Each once daily. ondansetron (ZOFRAN) 4 mg tablet Take 4 mg by mouth every 8 hours as needed for nausea/vomiting. meclizine (ANTIVERT) 25 mg tab Take 25 mg by mouth three times a day. blood sugar diagnostic (BLOOD GLUCOSE TEST) test strip Test blood sugar(s) 2 times daily. Dx: Type 2 DM - Controlled E11.9 Insulin: Yes ammonium lactate (LAC-HYDRIN) 12 % lotion Apply 1 application to affected area as needed for Dry Skin. melatonin 3 mg Take by mouth daily at bedtime. COMPOUNDED PRESCRIPTION Cock up wrist splint, right Medium. To be worn nightly to prevent carpal tunnel symptoms. Dx: carpal tunnel right Cholecalciferol, Vitamin D3, 1,000 unit cap Take 1 capsule by mouth once daily. Blood-Glucose Meter, Drum-type (ACCU-CHEK COMPACT PLUS CARE) Misc Kit 1 Each. Accu-Check Compact Plus Meter Diagnosis: Diabetes Mellitus ASPIRIN 81 MG TAB Take one (1) tablet daily . cephALEXin (KEFLEX) 500 mg capsule Take 500 mg by mouth three times a day. (Patient not taking: Reported on 04/06/2024) No current facility-administered medications for this visit. ALLERGIES: Lipitor [Atorvastatin] and Simvastatin PAST MEDICAL HISTORY Diagnosis Date Arthritis Benign neoplasm of colon tubular adenoma Carpal tunnel syndrome, right Chronic kidney disease, stage 3 (HCC) Diverticulitis 10/10/2020 Diverticulosis of colon (without mention of hemorrhage) Gout History of transfusion Internal hemorrhoids without mention of complication Lumbago Malignant neoplasm of corpus uteri, except isthmus ([facility]) 1996 Uterine cancer Other and unspecified hyperlipidemia PAD (peripheral artery disease) ([facility]) 2013 Mild LLE Pernicious anemia Restless leg syndrome Rotator cuff tendinitis left Trigger finger, right middle finger Seen by Dr. Burns 2015 Type II or unspecified type diabetes mellitus without mention of complication, uncontrolled Unspecified essential hypertension PAST SURGICAL HISTORY Procedure Laterality Date ABDOMINAL SURGERY HX APPENDECTOMY 1952 BACK SURGERY HX CHOLECYSTECTOMY 11/28/2011 COLONOSCOPY FLX DX W/COLLJ SPEC W (more content not included)...[facility] [place]10-01-2024 Nurse Note* Altagracia Hazel, BERNADETTE - 06/19/2024 11:16 AM EDT REVIEW OF SYSTEMS: General: The patient NOTES fatigue, denies weight loss, denies weight gain, denies feeling hot, anddenies feelings of cold. Eyes: The patient denies glaucoma, denies eye injury/surgery, wears glasses or contacts. Ear/Nose/Throat: The patient denies allergies, denies hayfever, denies ear infections, and denies bloody noses. Cardiovascular: The patient denies chest pain, denies heart disease, NOTES high blood pressure,denies cardiac stent, denies prior heart attack, denies irregular heart beat, NOTES high cholesterol, denies poor circulation, denies heart failure, other cardiac issues, NOTES claudication, denies cold feet, denies peripheral arterial stent. Respiratory: The patient denies tuberculosis, denies pneumonia, denies frequent cough, denies pulmonary embolism, NOTES shortness of breath, and denies coughing up blood. Gastrointestinal: The patient denies difficulty swallowing, denies acid reflux, denies ulcers, denies vomiting, denies jaundice/hepatitis, NOTES gallbladder problems, denies black or tarry stools, denies hemorrhoids, denies bleeding from rectum, denies diverticulitis, NOTES constipation, NOTES diarrhea, denies loss of stool control, and denies hernias. Kidney/Bladder: The patient NOTES kidney failure, denies urine infections, and denies bloody urine. Skin: The patient denies a history of skin cancer, denies bleeding/changing moles, and denies a history of skin rash. Neurologic: The patient denies a history of epilepsy/convulsions, denies headaches, NOTES head/spinal injuries, and denies stroke/TIA. Psychiatric: The patient denies psychiatric medications, denies depression, and denies voices, denies substance abuse. Endocrine: The patient denies thyroid disorders, NOTES diabetes, and denies hormonal problems. Hematologic: The patient denies a history of bruising, denies bleeding, and NOTES anemia, denies blood clots. Infections: The patient denies a history of measles and mumps, denies rheumatic fever, and denies sexually transmitted diseases. Musculoskeletal: The patient denies back pain/injury, denies back problems, denies sciatica, deniesknee/foot trouble, denies arthritis, or NOTES gout. When was patient's last Mammogram screening? 5 YEARS Last Colonoscopy: 01/07/2021 Altagracia Hazel RN [facility]10-01-2024 Nurse Note* Altagracia Hazel RN - 06/19/2024 11:16 AM EDT REVIEW OF SYSTEMS: General: The patient NOTES fatigue, denies weight loss, denies weight gain, denies feeling hot, anddenies feelings of cold. Eyes: The patient denies glaucoma, denies eye injury/surgery, wears glasses or contacts. Ear/Nose/Throat: The patient denies allergies, denies hayfever, denies ear infections, and denies bloody noses. Cardiovascular: The patient denies chest pain, denies heart disease, NOTES high blood pressure,denies cardiac stent, denies prior heart attack, denies irregular heart beat, NOTES high cholesterol, denies poor circulation, denies heart failure, other cardiac issues, NOTES claudication, denies cold feet, denies peripheral arterial stent. Respiratory: The patient denies tuberculosis, denies pneumonia, denies frequent cough, denies pulmonary embolism, NOTES shortness of breath, and denies coughing up blood. Gastrointestinal: The patient denies difficulty swallowing, denies acid reflux, denies ulcers, denies vomiting, denies jaundice/hepatitis, NOTES gallbladder problems, denies black or tarry stools, denies hemorrhoids, denies bleeding from rectum, denies diverticulitis, NOTES constipation, NOTES diarrhea, denies loss of stool control, and denies hernias. Kidney/Bladder: The patient NOTES kidney failure, denies urine infections, and denies bloody urine. Skin: The patient denies a history of skin cancer, denies bleeding/changing moles, and denies a history of skin rash. Neurologic: The patient denies a history of epilepsy/convulsions, denies headaches, NOTES head/spinal injuries, and denies stroke/TIA. Psychiatric: The patient denies psychiatric medications, denies depression, and denies voices, denies substance abuse. Endocrine: The patient denies thyroid disorders, NOTES diabetes, and denies hormonal problems. Hematologic: The patient denies a history of bruising, denies bleeding, and NOTES anemia, denies blood clots. Infections: The patient denies a history of measles and mumps, denies rheumatic fever, and denies sexually transmitted diseases. Musculoskeletal: The patient denies back pain/injury, denies back problems, denies sciatica, deniesknee/foot trouble, denies arthritis, or NOTES gout. When was patient's last Mammogram screening? 5 YEARS Last Colonoscopy: 01/07/2021 Altagracia Hazel, RN [facility] Tele[facility] encounter Note * Telephone Encounter - Tosha Pelaez APRN.CNP - 06/18/2024 2:14 PM EDT PDMP website checked and validated. All prescriptions have been APPROPRIATELY filled. No suspiciousactivity was identified. 06/18/2024 by Tosha Pelaez APRN.CNP [facility]09-30-2024 Miscellaneous Notes* Telephone Encounter - Tosha Pelaez APRN.CNP - 06/18/2024 2:14 PM EDT PDMP website checked and validated. All prescriptions have been APPROPRIATELY filled. No suspiciousactivity was identified. 06/18/2024 by Tosha Pelaez APRN.CNP * Telephone Encounter - Dina Thompson - 06/18/2024 9:35 AM EDT Prescription Refill Information The patient has been identified by name and date of : Yes Caregiver verified no other encounters exist for this prescription request: Yes Caregiver confirmed with patient/requestor that no other refills are due, in the near future, with this provider at this time: Yes The last office visit in the department: 06-06-24 Does the patient have a future office visit with this provider/department: Yes Requested Prescriptions Pending Prescriptions Disp Refills gabapentin (NEURONTIN) 400 mg capsule 180 capsule 1 Sig: Take 1 capsule by mouth two times a day for 90 days. Dina William June 18, 2024 9:35 AM documented in this encounterA[facility] Telephone encounter Note * Telephone Encounter - Dina Thompson - 06/18/2024 9:35 AM EDT Prescription Refill Information The patient has been identified by name and date of : Yes Caregiver verified no other encounters exist for this prescription request: Yes Caregiver confirmed with patient/requestor that no other refills are due, in the near future, with this provider at this time: Yes The last office visit in the department: 06-06-24 Does the patient have a future office visit with this provider/department: Yes Requested Prescriptions Pending Prescriptions Disp Refills gabapentin (NEURONTIN) 400 mg capsule 180 capsule 1 Sig: Take 1 capsule by mouth two times a day for 90 days. Dina William June 18, 2024 9:35 AM [facility]09-27-2024 Telephone encounter Note* Telephone Encounter - Tosha Pelaez APRN.CNP - 06/15/2024 1:05 PM EDT Reviewed. Tosha Pelaez APRN.CNP [facility]09-27-2024 Miscellaneous Notes* Telephone Encounter - Tosha Pelaez APRN.CNP - 06/15/2024 1:05 PM EDT Reviewed. Tosha Pelaez APRN.CNP * Telephone Encounter - Cheryl Billy RN - 06/15/2024 12:50 PM EDT Patient calls back and states that she had carpal tunnel in her right hand last year. Patient states that she can do writing and crocheting. Patient states that on her left hand she has had numbness and no feeling in fingers. Patient states that she can talk to Dr. Fay about this at her appointment in July. Cheryl Billy RN * Telephone Encounter - Paris Umanzor RN - 06/15/2024 12:47 PM EDT Called and left a voicemail for the Patient to call back and ask for a nurse to receive the providers message. 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 We can always have her come in to see if she is having carpal tunnel issues. Tosha Pelaez APRN.CNP * Telephone Encounter - Kassandra Harrison LPN - 06/15/2024 10:39 AM EDT Patient agreeable to general surgery consult. Patient asking if there is PT she could be doing for her hand neuropathy. She would like to strengthen her hands to decrease the pain. Kassandra Harrison LPN * Telephone Encounter - Tosha Pelaez APRN.CNP - 06/15/2024 10:10 AM EDT Stool sample + for blood- would recommend she see general surgery for possible colonoscopy. If agreeable will place order Tosha Pelaez APRN.CNP documented in this encounterA[facility] Telephone encounter Note * Telephone Encounter - Cheryl Billy RN - 06/15/2024 12:50 PM EDT Patient calls back and states that she had carpal tunnel in her right hand last year. Patient states that she can do writing and crocheting. Patient states that on her left hand she has had numbness and no feeling in fingers. Patient states that she can talk to Dr. Fay about this at her appointment in July. Cheryl Billy RN [facility]09-27-2024 Telephone encounter Note* Telephone Encounter - Paris Umanzor RN - 06/15/2024 12:47 PM EDT Called and left a voicemail for the Patient to call back and ask for a nurse to receive the providers message. 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 We can always have her come in to see if she is having carpal tunnel issues. Tosha Pelaez APRN.VAMSHI [facility]09-27-2024 Telephone encounter Note* Telephone Encounter - Kassandra Harrison LPN - 06/15/2024 10:39 AM EDT Patient agreeable to general surgery consult. Patient asking if there is PT she could be doing for her hand neuropathy. She would like to strengthen her hands to decrease the pain. Kassandra Harrison LPN [facility]09-27-2024 Telephone encounter Note* Telephone Encounter - Tosha Pelaez APRN.CNP - 06/15/2024 10:10 AM EDT Stool sample + for blood- would recommend she see general surgery for possible colonoscopy. If agreeable will place order Tosha Pelaez APRN.CNP [facility]09-25-2024 Telephone encounter Note* Telephone Encounter - Marylou Sutherland RN - 06/13/2024 8:43 AM EDT Patient calls and notified of results and providers instructions. Patient verbalizes understanding and will have labs completed prior to seeing Dr. Fay in July. Marylou Sutherland RN [facility]09-25-2024 Miscellaneous Notes* Telephone Encounter - Marylou Sutherland RN - 06/13/2024 8:43 AM EDT Patient calls and notified of results and providers instructions. Patient verbalizes understanding and will have labs completed prior to seeing Dr. Fay in July. Marylou Sutherland RN * Telephone Encounter - Tosha Pelaez APRN.CNP - 06/13/2024 7:56 AM EDT B12 level is elevated- she can take her B12 every other day. Ferritin level is elevated however this can increase with inflammation so can recheck in 6 weeks since her wrist was inflamed. Hemoglobin is in normal range. Tosha Pelaez APRN.CNP documented in this encounterA[facility]09-[facility] Telephone encounter Note * Telephone Encounter - Tosha Pelaez APRN.CNP - 06/13/2024 7:56 AM EDT B12 level is elevated- she can take her B12 every other day. Ferritin level is elevated however this can increase with inflammation so can recheck in 6 weeks since her wrist was inflamed. Hemoglobin is in normal range. Tosha Pelaez APRN.VAMSHI [facility]09-24-2024 Telephone encounter Note* Telephone Encounter - Duyen Bey LPN - 06/12/2024 11:10 AM EDT Patient at lab appointment and lab called down to office. Spoke with patient and reviewed message with her. Patient voiced understanding. Duyen Bey LPN [facility]09-24-2024 Miscellaneous Notes* Telephone Encounter - Duyen Bey LPN - 06/12/2024 11:10 AM EDT Patient at lab appointment and lab called down to office. Spoke with patient and reviewed message with her. Patient voiced understanding. Duyen Bey LPN * Telephone Encounter - Kassandra Harrison LPN - 06/12/2024 10:21 AM EDT Telephoned patient. Message left to call office back for update. Kassandra Harrison LPN * Telephone Encounter - Tosha Pelaez APRN.CNP - 06/12/2024 9:10 AM EDT If wrist starts hurting or swelling again let me know. Tosha Pelaez APRN.VAMSHI * Telephone Encounter - Paris Umanzor RN - 06/12/2024 8:35 AM EDT Pt called and is notified of providers results and instructions. Pt voices understanding. Pt statesshe will come in and get her labs done today and shrimp picker stool kit. Pt reports after the methylprednisolone her wrist is almost back to normal. Paris Umanzor, RN * Telephone Encounter - Colette Gilman LPN - 06/12/2024 8:23 AM EDT Left a message for pt to call the office and ask to speak to a nurse. Make sure pt gets both messages below. x-rays and blood work. Colette Gilman LPN * Telephone Encounter - Colette Gilman LPN - 06/12/2024 8:23 AM EDT ----- Message from Tosha Pelaez APRN.VAMSHI sent at 06/12/2024 7:46 AM EDT ----- Xray shows some widening in area of where her scapholunate ligament would be. Without injury unsureof the significance of this- has she has any improvement in pain and or swelling? If nor improving will have her see ortho. Tosha Pelaez APRN.VAMSHI * Telephone Encounter - Kassandra Harrison LPN - 06/08/2024 3:12 PM EDT Telephoned patient. Message left to call office back for update. Kassandra Harrison LPN * Telephone Encounter - Tosha Pelaez APRN.CNP - 06/08/2024 1:42 PM EDT Blood work show mild anemia. I have placed order for additional blood work along with stool for blood. Please let her know to shrimp picker kit in lab. Kidney functio has decreased some- recommend avoidance of NSAID products, stay well hydrated and eat low salt diet. Uric acid level is normal. Still awaiting xray results. Has she noticed any improvement in her wrist Tosha Pelaez APRN.VAMSHI documented in this encounterA[facility]09-[facility] Telephone encounter Note * Telephone Encounter - Kassandra Harrison LPN - 06/12/2024 10:21 AM EDT Telephoned patient. Message left to call office back for update. Kassandra Harrison LPN [facility]09-24-2024 Telephone encounter Note* Telephone Encounter - Tosha Pelaez APRN.CNP - 06/12/2024 9:10 AM EDT If wrist starts hurting or swelling again let me know. Tosha Pelaez APRN.CNP [facility]09-24-2024 Telephone encounter Note* Telephone Encounter - Paris Umanzor RN - 06/12/2024 8:35 AM EDT Pt called and is notified of providers results and instructions. Pt voices understanding. Pt statesshe will come in and get her labs done today and shrimp picker stool kit. Pt reports after the methylprednisolone her wrist is almost back to normal. Paris Umanzor, RN [facility]09-24-2024 Telephone encounter Note* Telephone Encounter - Colette Gilman LPN - 06/12/2024 8:23 AM EDT Left a message for pt to call the office and ask to speak to a nurse. Make sure pt gets both messages below. x-rays and blood work. Colette Gilman LPN [facility]09-24-2024 Telephone encounter Note* Telephone Encounter - Colette Gilman LPN - 06/12/2024 8:23 AM EDT ----- Message from Tosha Pelaez APRN.VAMSHI sent at 06/12/2024 7:46 AM EDT ----- Xray shows some widening in area of where her scapholunate ligament would be. Without injury unsureof the significance of this- has she has any improvement in pain and or swelling? If nor improving will have her see ortho. Tosha Pelaez APRN.VAMSHI [facility]09-20-2024 Telephone encounter Note* Telephone Encounter - Kassandra Harrison LPN - 06/08/2024 3:12 PM EDT Telephoned patient. Message left to call office back for update. Kassandra Harrison LPN [facility]09-20-2024 Telephone encounter Note* Telephone Encounter - Tosha Pelaez APRN.CNP - 06/08/2024 1:42 PM EDT Blood work show mild anemia. I have placed order for additional blood work along with stool for blood. Please let her know to shrimp picker kit in lab. Kidney functio has decreased some- recommend avoidance of NSAID products, stay well hydrated and eat low salt diet. Uric acid level is normal. Still awaiting xray results. Has she noticed any improvement in her wrist Tosha Pelaez APRN.CNP [facility]09-19-2024 Telephone encounter Note* Telephone Encounter - aNtaliia Burnham RN - 06/07/2024 1:50 PM EDT Patient notified of provider's recommendations below. Patient agreeable and will follow recommendations. Nataliia Burnham RN [facility]09-19-2024 Miscellaneous Notes* Telephone Encounter - Nataliia Burnham RN - 06/07/2024 1:50 PM EDT Patient notified of provider's recommendations below. Patient agreeable and will follow recommendations. Nataliia Burnham RN * Telephone Encounter - Paris Umanzor RN - 06/07/2024 1:24 PM EDT Called and left a voicemail for the Patient to call back and ask for a nurse to receive the providers message. Paris Umanzor RN * Telephone Encounter - Maribel Fay MD - 06/07/2024 11:55 AM EDT It is not surpising that she has higher sugar on 60 mg of prednisone. With the dizziness I would recommend stopping the prednisone taper and try medrol dose pack instead. Sugar may still be high on this temporarily, but this is only 6 day course to help with pain and inflammation. If she took prednisone today, can start medrol tomorrow. I would have her increase her Lantus to 24 units while on this and call if sugars are still above 250. Patient to go to the ER with persistent dizziness, stroke symptoms, or symptoms of DKA including: nausea, vomiting, abdominal pain, confusion, SOB. * Telephone Encounter - Nataliia Burnham RN - 06/07/2024 9:53 AM EDT Triage Protocol Advised: PCP to ADVISE. Patient has Life Alert necklace that she will utilize for red flag sx's as discussed. Please call patient to advise her. [phone]. Reason for Disposition Taking a medicine that could cause dizziness (e.g., phenytoin [Dilantin], carbamazepine [Tegretol],primidone [Mysoline]) Answer Assessment - Initial Assessment Questions Patient reports she began prednisone yesterday as ordered by Tosha Pelaez CNP for pain and swelling of right wrist- possible gout vs arthritis flare. Reports when she got up at 5am to use bathroomshe was dizzy. Reports has had vertigo before and she took one meclizine pill that she had on hand. Blood sugar this morning is highest her sugar has ever been, at 339. She has not ate breakfast yet.Patient takes Lantus 22 UNITS daily at bedtime. No other diabetic medications per patient. Patient is alert and oriented on phone. Answering questions appropriately. Good memory recall. Speech is clear. No distress noted. Patient denies fever/chills, urinary symptoms, flank pain, abdominal pain, nausea, vomiting, headache, vision changes, or stroke symptoms. Denies urinary sx's-no urgency,frequency or burning. 1. DESCRIPTION: as above 2. VERTIGO: somewhat 3. LIGHTHEADED: somewhat 4. SEVERITY: MODERATE: Feels unsteady when walking, but not falling; interferes with normal activities 5. ONSET: this morning 5am 6. AGGRAVATING FACTORS: movement, walking 7. CAUSE: possible prednisone effect 8. RECURRENT SYMPTOM: it's been awhile 9. OTHER SYMPTOMS: Denies chest pain, SOB, fever/chills, headache, weakness, feeling like passing out, numbness, vomiting, or earache Protocols used: Dizziness - [id number] documented in this encounterA[facility]09-[facility] Telephone encounter Note * Telephone Encounter - Paris Umanzor RN - 06/07/2024 1:24 PM EDT Called and left a voicemail for the Patient to call back and ask for a nurse to receive the providers message. Paris Umanzor RN [facility]09-19-2024 Telephone encounter Note* Telephone Encounter - Maribel Fay MD - 06/07/2024 11:55 AM EDT It is not surpising that she has higher sugar on 60 mg of prednisone. With the dizziness I would recommend stopping the prednisone taper and try medrol dose pack instead. Sugar may still be high on this temporarily, but this is only 6 day course to help with pain and inflammation. If she took prednisone today, can start medrol tomorrow. I would have her increase her Lantus to 24 units while on this and call if sugars are still above 250. Patient to go to the ER with persistent dizziness, stroke symptoms, or symptoms of DKA including: nausea, vomiting, abdominal pain, confusion, SOB. [facility]09-19-2024 Telephone encounter Note* Telephone Encounter - Nataliia Burnham RN - 06/07/2024 9:53 AM EDT Triage Protocol Advised: PCP to ADVISE. Patient has Life Alert necklace that she will utilize for red flag sx's as discussed. Please call patient to advise her. [phone]. Reason for Disposition Taking a medicine that could cause dizziness (e.g., phenytoin [Dilantin], carbamazepine [Tegretol],primidone [Mysoline]) Answer Assessment - Initial Assessment Questions Patient reports she began prednisone yesterday as ordered by Tosha Pelaez CNP for pain and swelling of right wrist- possible gout vs arthritis flare. Reports when she got up at 5am to use bathroomshe was dizzy. Reports has had vertigo before and she took one meclizine pill that she had on hand. Blood sugar this morning is highest her sugar has ever been, at 339. She has not ate breakfast yet.Patient takes Lantus 22 UNITS daily at bedtime. No other diabetic medications per patient. Patient is alert and oriented on phone. Answering questions appropriately. Good memory recall. Speech is clear. No distress noted. Patient denies fever/chills, urinary symptoms, flank pain, abdominal pain, nausea, vomiting, headache, vision changes, or stroke symptoms. Denies urinary sx's-no urgency,frequency or burning. 1. DESCRIPTION: as above 2. VERTIGO: somewhat 3. LIGHTHEADED: somewhat 4. SEVERITY: MODERATE: Feels unsteady when walking, but not falling; interferes with normal activities 5. ONSET: this morning 5am 6. AGGRAVATING FACTORS: movement, walking 7. CAUSE: possible prednisone effect 8. RECURRENT SYMPTOM: it's been awhile 9. OTHER SYMPTOMS: Denies chest pain, SOB, fever/chills, headache, weakness, feeling like passing out, numbness, vomiting, or earache Protocols used: Dizziness - [id number] [facility]09-18-2024 History of Present illness Narrative* Trevor Peña RT(R) - 06/06/2024 1:00 PM EDT Radiology Service Progress Note PATIENT NAME: Charlette Farmer DATE OF SERVICE: June 06, 2024 TIME: 1:01 PM PATIENT IDENTITY VERIFICATION COMPLETED USING TWO (2) IDENTIFIERS: Name and Date of confirmedby patient verbally. FALL SCREENING: Has the patient had 2 falls in the last year or 1 fall with injury or currently using an Ambulatory Assistive Device (Walker, Cane, Wheelchair, Crutches, etc.)? Yes, Patient High Riskfor Falls What interventions were put in place to prevent falls during this visit? Offered Assistance with Transfers/Clothing, Instructed Patient to Remain Seated (Not on Exam Table) Until Exam, and Increased Observations by Caregivers PATIENT GENDER DATA: Female. status: : No status: NO. PATIENT RELEVANT IMPLANT DATA REVIEWED: Yes PATIENT PRESENTS WITH AN IMPLANTABLE OR ATTACHED PARQUETRY LAYER: No RADIOLOGY DEPARTMENT: General X-ray: Exam(s) Completed: Upper Extremity X- Ray(s): Wrist, right PERIPHERAL IV DATA: Not applicable SIGNED BY: RT Grace(R) June 06, 2024 1:01 PM documented in this encounterAult[facility]09-18-2024 NoteHNO ID: [id number] Author: TREVOR PEÑA RT(Myles) Service: ? Author Type: Employer Relations Representative Type: Progress Notes Filed: 06/06/2024 13:15 Note Text: Radiology Service Progress Note PATIENT NAME: Charlette Farmer DATE OF SERVICE: June 06, 2024 TIME: 1:01 PM PATIENT IDENTITY VERIFICATION COMPLETED USING TWO (2) IDENTIFIERS: Name and Date of confirmed by patient verbally. FALL SCREENING: Has the patient had 2 falls in the last year or 1 fall with injury or currently using an Ambulatory Assistive Device (Walker, Cane, Wheelchair, Crutches, etc.)? Yes, Patient High Risk for Falls What interventions were put in place to prevent falls during this visit? Offered Assistance with Transfers/Clothing, Instructed Patient to Remain Seated (Not on Exam Table) Until Exam, and Increased Observations by Caregivers PATIENT GENDER DATA: Female. status: : No status: NO. PATIENT RELEVANT IMPLANT DATA REVIEWED: Yes PATIENT PRESENTS WITH AN IMPLANTABLE OR ATTACHED PARQUETRY LAYER: No RADIOLOGY DEPARTMENT: General X-ray: Exam(s) Completed: Upper Extremity X-Ray(s): Wrist, right PERIPHERAL IV DATA: Not applicable SIGNED BY: RT Grace(R) June 06, 2024 1:01 [facility]09-18-2024 NoteHNO ID: [id number] Author: TOSHA PELAEZ APRN.SHELF FILLER Service: ? Author Type: Nurse Practitioner Type: Progress Notes Filed: 06/06/2024 13:24 Note Text: 06/06/2024 Patient presents with: Wrist Pain: Right wrist x2 days SUBJECTIVE: This is a 89 year old that is here today for Above Complaints. ONSET: right wrist LOCATION: two days DURATION: constant CHARACTERISTICS: dull ache AGGRAVATING FEATURES: grasping items or picking items up, crocheting ALLEVIATING FEATURES: brace she has been wearing RADIATION:none + redness which she reports is improving Hx of gout right index finger Denies past/present injury, fevers, skin cut, extremity numbness, tingling or weakness PAST MEDICAL HISTORY Diagnosis Date Arthritis Benign neoplasm of colon Carpal tunnel syndrome, right Chronic kidney disease, stage 3 (HCC) Diverticulitis 10/10/2020 Diverticulosis of colon (without mention of hemorrhage) Gout History of transfusion Internal hemorrhoids without mention of complication Lumbago Malignant neoplasm of corpus uteri, except isthmus (HCC) 1996 Uterine cancer Other and unspecified hyperlipidemia PAD (peripheral artery disease) (HCC) 2013 Mild LLE Pernicious anemia Restless leg syndrome Rotator cuff tendinitis left Trigger finger, right middle finger Seen by Dr. Burns 2015 Type II or unspecified type diabetes mellitus without mention of complication, uncontrolled Unspecified essential hypertension ALLERGIES Lipitor [Atorvastatin] and Simvastatin MEDICATIONS Current Outpatient Medications Medication Sig allopurinol (ZYLOPRIM) 100 mg tablet Take 1 tablet by mouth two times a day. gabapentin (NEURONTIN) 400 mg capsule Take 1 capsule by mouth two times a day for 30 days. insulin glargine (LANTUS SOLOSTAR U-100 INSULIN) 100 unit/mL (3 mL) Inject 22 Units subcutaneously daily at bedtime. hydroCHLOROthiazide 12.5 mg capsule Take 1 capsule by mouth once daily. lisinopril 2.5 mg tablet Take 1 tablet by mouth once daily. rosuvastatin (CRESTOR) 20 mg tablet Take 1 tablet by mouth daily at bedtime. pramipexole (MIRAPEX) 0.25 mg tablet Take 1 tablet by mouth daily at bedtime. blood sugar diagnostic (TRUE METRIX GLUCOSE TEST STRIP) test strip Test once daily DX:250.02 Insulin: Yes Lancets lancets Pt requests Truedraw lancets. Test blood sugar(s) 1 times daily. Dx: Other DM Code 250.02 Insulin: Yes Lancets (ACCU-CHEK SOFTCLIX LANCETS) lancets Use Three times daily to check blood sugar Insulin Volborg, Disposable, (PEN NEEDLE) 29 gauge x 1/2 One needle once daily. Dx: 250.02 Insulin: yes Acetaminophen 500 mg cap Take 2 capsules by mouth two times a day as needed for pain. Reports will utilize 1 500mg tab 1-2 times in between the 1000 mg doses Miscellaneous Medical Supply (BLOOD PRESSURE CUFF) 1 Each once daily. ondansetron (ZOFRAN) 4 mg tablet Take 4 mg by mouth every 8 hours as needed for nausea/vomiting. meclizine (ANTIVERT) 25 mg tab Take 25 mg by mouth three times a day. cephALEXin (KEFLEX) 500 mg capsule Take 500 mg by mouth three times a day. (Patient not taking: Reported on 04/06/2024) blood sugar diagnostic (BLOOD GLUCOSE TEST) test strip Test blood sugar(s) 2 times daily. Dx: Type 2 DM - Controlled E11.9 Insulin: Yes ammonium lactate (LAC-HYDRIN) 12 % lotion Apply 1 application to affected area as needed for Dry Skin. melatonin 3 mg Take by mouth daily at bedtime. COMPOUNDED PRESCRIPTION Cock up wrist splint, right Medium. To be worn nightly to prevent carpal tunnel symptoms. Dx: carpal tunnel right Cholecalciferol, Vitamin D3, 1,000 unit cap Take 1 capsule by mouth once daily. cyanocobalamin (VITAMIN B-12) 1,000 mcg Tab Take 1 tablet by mouth once daily. Dx: pernicious anemia Blood-Glucose Meter, Drum-type (ACCU-CHEK COMPACT PLUS CARE) Misc Kit 1 Each. Accu-Check Compact Plus Meter Diagnosis: Diabetes Mellitus ASPIRIN 81 MG TAB Take one (1) tablet daily . No current facility-administered medications for this visit. Medications and allergies reviewed by this provider. SOCIAL HISTORY Social History Tobacco Use Smoking status: Former Current packs/day: 0.00 Average packs/day: 1 pack/day for 21.0 years (21.0 ttl pk-yrs) Types: Cigarettes Start date: 11/23/1952 Quit date: 09/19/1973 Years since quittin.7 Smokeless tobacco: Never Vaping Use Vaping status: Never Used Substance Use Topics Alcohol use: Yes Comment: occas glass of wine Drug use: No REVIEW OF SYSTEMS All other reviewed and negative other than HPI. OBJECTIVE: BP 122/70 Pulse 80 Resp 18 Wt 67.4 kg (148 lb 9.4 oz) SpO2 94% BMI 28.08 kg/m? . Vital signs reviewed by this provider. APPEARANCE Well appearing, alert, in no acute distress, well-hydrated, well nourished. RIGHT WRIST: mild swelling in comparison to left wrist. No excessive warmth. FROM with mild pain with flexion. Mild erythema over styloid process. No TTP. 2+ radial pulse with c (more content not included)...[facility] [place] 06-06-2024 History of Present illness Narrative* PodlogarTosha APRN.[facility] - 06/06/2024 12:18 PM EDT 06/06/2024 Patient presents with: Wrist Pain: Right wrist x2 days SUBJECTIVE: This is a 89 year old that is here today for Above Complaints. ONSET: right wrist LOCATION: two days DURATION: constant CHARACTERISTICS: dull ache AGGRAVATING FEATURES: grasping items or picking items up, crocheting ALLEVIATING FEATURES: brace she has been wearing RADIATION:none + redness which she reports is improving Hx of gout right index finger Denies past/present injury, fevers, skin cut, extremity numbness, tingling or weakness PAST MEDICAL HISTORY Diagnosis Date Arthritis Benign neoplasm of colon Carpal tunnel syndrome, right Chronic kidney disease, stage 3 ([facility]) Diverticulitis 10/10/2020 Diverticulosis of colon (without mention of hemorrhage) Gout History of transfusion Internal hemorrhoids without mention of complication Lumbago Malignant neoplasm of corpus uteri, except isthmus ([facility]) 1996 Uterine cancer Other and unspecified hyperlipidemia PAD (peripheral artery disease) ([facility]) 2013 Mild LLE Pernicious anemia Restless leg syndrome Rotator cuff tendinitis left Trigger finger, right middle finger Seen by Dr. Burns 2016 Type II or unspecified type diabetes mellitus without mention of complication, uncontrolled Unspecified essential hypertension ALLERGIES Lipitor [Atorvastatin] and Simvastatin MEDICATIONS Current Outpatient Medications Medication Sig allopurinol (ZYLOPRIM) 100 mg tablet Take 1 tablet by mouth two times a day. gabapentin (NEURONTIN) 400 mg capsule Take 1 capsule by mouth two times a day for 30 days. insulin glargine (LANTUS SOLOSTAR U-100 INSULIN) 100 unit/mL (3 mL) Inject 22 Units subcutaneously daily at bedtime. hydroCHLOROthiazide 12.5 mg capsule Take 1 capsule by mouth once daily. lisinopril 2.5 mg tablet Take 1 tablet by mouth once daily. rosuvastatin (CRESTOR) 20 mg tablet Take 1 tablet by mouth daily at bedtime. pramipexole (MIRAPEX) 0.25 mg tablet Take 1 tablet by mouth daily at bedtime. blood sugar diagnostic (TRUE METRIX GLUCOSE TEST STRIP) test strip Test once daily DX:250.02 Insulin: Yes Lancets lancets Pt requests Truedraw lancets. Test blood sugar(s) 1 times daily. Dx: Other DM Code 250.02 Insulin: Yes Lancets (ACCU-CHEK SOFTCLIX LANCETS) lancets Use Three times daily to check blood sugar Insulin Volborg, Disposable, (PEN NEEDLE) 29 gauge x 1/2 One needle once daily. Dx: 250.02 Insulin: yes Acetaminophen 500 mg cap Take 2 capsules by mouth two times a day as needed for pain. Reports will utilize 1 500mg tab 1-2 times in between the 1000 mg doses Miscellaneous Medical Supply (BLOOD PRESSURE CUFF) 1 Each once daily. ondansetron (ZOFRAN) 4 mg tablet Take 4 mg by mouth every 8 hours as needed for nausea/vomiting. meclizine (ANTIVERT) 25 mg tab Take 25 mg by mouth three times a day. cephALEXin (KEFLEX) 500 mg capsule Take 500 mg by mouth three times a day. (Patient not taking: Reported on 04/06/2024) blood sugar diagnostic (BLOOD GLUCOSE TEST) test strip Test blood sugar(s) 2 times daily. Dx: Type 2 DM - Controlled E11.9 Insulin: Yes ammonium lactate (LAC-HYDRIN) 12 % lotion Apply 1 application to affected area as needed for Dry Skin. melatonin 3 mg Take by mouth daily at bedtime. COMPOUNDED PRESCRIPTION Cock up wrist splint, right Medium. To be worn nightly to prevent carpal tunnel symptoms. Dx: carpal tunnel right Cholecalciferol, Vitamin D3, 1,000 unit cap Take 1 capsule by mouth once daily. cyanocobalamin (VITAMIN B-12) 1,000 mcg Tab Take 1 tablet by mouth once daily. Dx: pernicious anemia Blood-Glucose Meter, Drum-type (ACCU-CHEK COMPACT PLUS CARE) Misc Kit 1 Each. Accu-Check Compact Plus Meter Diagnosis: Diabetes Mellitus ASPIRIN 81 MG TAB Take one (1) tablet daily . No current facility-administered medications for this visit. Medications and allergies reviewed by this provider. SOCIAL HISTORY Social History Tobacco Use Smoking status: Former Current packs/day: 0.00 Average packs/day: 1 pack/day for 21.0 years (21.0 ttl pk-yrs) Types: Cigarettes Start date: 11/23/1952 Quit date: 09/19/1973 Years since quittin.7 Smokeless tobacco: Never Vaping Use Vaping status: Never Used Substance Use Topics Alcohol use: Yes Comment: occas glass of wine Drug use: No REVIEW OF SYSTEMS All other reviewed and negative other than HPI. OBJECTIVE: BP 122/70 Pulse 80 Resp 18 Wt 67.4 kg (148 lb 9.4 oz) SpO2 94% BMI 28.08 kg/m . Vital signs reviewed by this provider. APPEARANCE Well appearing, alert, in no acute distress, well-hydrated, well nourished. RIGHT WRIST: mild swelling in comparison to left wrist. No excessive warmth. FROM with mild pain with flexion. Mild erythema over styloid process. No TTP. 2+ radial pulse with cap refill WNL Depression Screening Never done Anxiety Screening Never done Advance Directive Discussion due on 09/19/2023 Covid-19 Vaccine( season) due on 05/20/2024 Influenza Vaccine(1) due on 05/20/2024 DTaP,Tdap,Td Vaccine(2 - Tdap) due on 11/15/2024 RSV Vaccine(1 - 1-dose 60+ series) due on 11/15/2024 Shingrix Vaccine(2 of 2) due on 11/15/2024 Urine Albumin:Creatinine Ratio due on 08/15/2024 HbA1C due on 08/15/2024 Dilated Retinal Exam due on 11/15/2024 LDL Cholesterol due on 12/19/2024 Diabetic Foot Exam due on 04/06/2025 Bone Density Screening Completed Pneumococcal Vaccine: 65+ Completed ASSESSMENT/PLAN: 1. Pain and swelling of right wrist - ICD9: 719.43, 719.03, ICD10: M25.531, M25.431 - possible gout vs arthritis flare - no red flag symptoms or exam findings - red flag symptoms discussed, verbalizes understanding - XR WRIST GENERAL 3V PA/LAT/OBL RIGHT - COMPLETE BLOOD COUNT AND DIFFERENTIAL - URIC ACID - PREDNISONE 10 MG TABLET - follow-up if symptoms fail to improve to ER with red flag symptoms Tosha Pelaez, [employer] Prescription instructions reviewed with patient as applicable. Patient advised if symptoms do not improve or if symptoms worsen sooner, to contact their primary care physician. Potential red flag symptoms discussed with the patient. Reviewed appropriate action plan to take if red flag symptoms occur. Patient agreeable to treatment plan. Medical Decision Making: Problems: Moderate: New problem with uncertain prognosis Data: Unique test(s) ordered: 3+ Risk: Moderate: Drug management and Moderate risk from testing/treatment Medical Decision Making Level: 4 - Moderate documented in [facility] Tele[facility] encounter Note * Telephone Encounter - Marylou Sutherland RN - 06/05/2024 4:28 PM EDT Patient calls for right wrist pain. Nurse triage completed. Protocol recommends see provider within3 days. Appt scheduled. Care advice reviewed. Patient also needs refill of allopurinol. Pended. Reason for Disposition [1] MODERATE pain (e.g., interferes with normal activities) AND [2] present > 3 days Answer Assessment - Initial Assessment Questions 1. ONSET: Patient reports right wrist pain over past several days that was noticeably worse this morning. Patient reports history of carpal tunnel in that wrist. Patient reports history of left hand numbness as well that she would like to have looked. On-going for years. Previously looked at. 2. LOCATION: Right wrist 3. PAIN: - MILD (1-3): doesn't interfere with normal activities - MODERATE (4-7): interferes with normal activities (e.g., work or school) or awakens from sleep 4. WORK OR EXERCISE: No recent injuries. Reports she does a lot of crocheting. 5. CAUSE: Patient not certain. 6. AGGRAVATING FACTORS: Crocheting. 7. OTHER SYMPTOMS: No neck pain, swelling, rash, numbness, fever 8. : NA Protocols used: Hand and Wrist [id number] [facility]09-[facility] Miscellaneous Notes* Telephone Encounter - Marylou Sutherland RN - 06/05/2024 4:28 PM EDT Patient calls for right wrist pain. Nurse triage completed. Protocol recommends see provider within3 days. Appt scheduled. Care advice reviewed. Patient also needs refill of allopurinol. Pended. Reason for Disposition [1] MODERATE pain (e.g., interferes with normal activities) AND [2] present > 3 days Answer Assessment - Initial Assessment Questions 1. ONSET: Patient reports right wrist pain over past several days that was noticeably worse this morning. Patient reports history of carpal tunnel in that wrist. Patient reports history of left hand numbness as well that she would like to have looked. On-going for years. Previously looked at. 2. LOCATION: Right wrist 3. PAIN: - MILD (1-3): doesn't interfere with normal activities - MODERATE (4-7): interferes with normal activities (e.g., work or school) or awakens from sleep 4. WORK OR EXERCISE: No recent injuries. Reports she does a lot of crocheting. 5. CAUSE: Patient not certain. 6. AGGRAVATING FACTORS: Crocheting. 7. OTHER SYMPTOMS: No neck pain, swelling, rash, numbness, fever 8. : NA Protocols used: Hand and Wrist [id number] documented in this encounterA[facility]08-28-[facility] Instructions* Patient Instructions* Tosha Pelaez APRN.CNP - 05/16/2024 10:59 AM EDT Increase Lantus to 22 units daily- take blood sugar twice a day and update me in one week with readings. Update me in the next couple weeks regarding leg pain documented in this encounterA[facility]08-28-[facility] History of Present illness Narrative* Tosha Pelaez APRN.CNP - 05/16/2024 10:40 AM EDT 05/16/2024 Patient presents with: F/U 3 Month SUBJECTIVE: This is a 89 year old that is here today for Above Complaints. Since last office visis has been in good health without ER visits or hospitalizations DIABETES MELLITUS: Since our last visit she denies excessive thirst or increased frequency of urination, chest pain or dyspnea , numbness, tingling or pain in extremities, new or unusual visual symptoms, low sugar/hypoglycemic reactions, weight loss/gain, lightheadedness/dizziness, and bowel changes/loose stools Follows a diabetic diet some of the time. She is compliant with medication(s) and is tolerating med(s) without any side effects. She reports checking her glucose on a once a day schedule with sugars in the fasting 72-220 with most in the 120-150 range. Patient's last HgA1C was Hemoglobin A1C (%) Date Value 05/15/2024 8.3 12/20/2023 6.5 11/03/2021 7.9 07/22/2021 7.8 ) Last Ophthalmology exam was within the past 12 months Last Podiatry exam was within the past 3 months HTN: Patient is compliant with meds Yes Monitors bp at home: No. Denies side effects: No. Chest pain: No. Dyspnea: No. Edema: No. Palpitations: No. Syncope: No. Headache: No. Dizziness: No. HYPERLIPIDEMIA: Patient is taking medications: Yes. Patient is watching diet: Yes. Patient denies myalgias: Yes. Patient denies gi upset: Yes Only took gabapentin for a month but then stopped because she ran out. Doesn't think it helped a whole lot Has rash under her abdomen. She wears a brief all day. Area can be itchy PAST MEDICAL HISTORY No date: Arthritis No date: Benign neoplasm of colon No date: Carpal tunnel syndrome, right No date: Chronic kidney disease, stage 3 ([facility]) 10/10/2020: Diverticulitis No date: Diverticulosis of colon (without mention of hemorrhage) No date: Gout No date: History of transfusion No date: Internal hemorrhoids without mention of complication No date: Lumbago 1996: Malignant neoplasm of corpus uteri, except isthmus ([facility]) Comment: Uterine cancer No date: Other and unspecified hyperlipidemia 2014: PAD (peripheral artery disease) ([facility]) Comment: Mild LLE No date: Pernicious anemia No date: Restless leg syndrome No date: Rotator cuff tendinitis Comment: left No date: Trigger finger, right middle finger Comment: Seen by Dr. Burns 2015 No date: Type II or unspecified type diabetes mellitus without mention of complication, uncontrolled No date: Unspecified essential hypertension ALLERGIES Lipitor [Atorvastatin] and Simvastatin MEDICATIONS Current Outpatient Medications Medication Sig hydroCHLOROthiazide 12.5 mg capsule Take 1 capsule by mouth once daily. lisinopril 2.5 mg tablet Take 1 tablet by mouth once daily. rosuvastatin (CRESTOR) 20 mg tablet Take 1 tablet by mouth daily at bedtime. insulin glargine (LANTUS SOLOSTAR U-100 INSULIN) 100 unit/mL (3 mL) Inject 20 Units subcutaneously daily at bedtime. gabapentin (NEURONTIN) 400 mg capsule Take 1 capsule by mouth two times a day for 90 days. pramipexole (MIRAPEX) 0.25 mg tablet Take 1 tablet by mouth daily at bedtime. blood sugar diagnostic (TRUE METRIX GLUCOSE TEST STRIP) test strip Test once daily DX:250.02 Insulin: Yes Lancets lancets Pt requests Truedraw lancets. Test blood sugar(s) 1 times daily. Dx: Other DM Code 250.02 Insulin: Yes Lancets (ACCU-CHEK SOFTCLIX LANCETS) lancets Use Three times daily to check blood sugar Insulin Volborg, Disposable, (PEN NEEDLE) 29 gauge x 1/2 One needle once daily. Dx: 250.02 Insulin: yes Acetaminophen 500 mg cap Take 2 capsules by mouth two times a day as needed for pain. Reports will utilize 1 500mg tab 1-2 times in between the 1000 mg doses Miscellaneous Medical Supply (BLOOD PRESSURE CUFF) 1 Each once daily. ondansetron (ZOFRAN) 4 mg tablet Take 4 mg by mouth every 8 hours as needed for nausea/vomiting. meclizine (ANTIVERT) 25 mg tab Take 25 mg by mouth three times a day. cephALEXin (KEFLEX) 500 mg capsule Take 500 mg by mouth three times a day. (Patient not taking: Reported on 04/06/2024) blood sugar diagnostic (BLOOD GLUCOSE TEST) test strip Test blood sugar(s) 2 times daily. Dx: Type 2 DM - Controlled E11.9 Insulin: Yes allopurinol (ZYLOPRIM) 100 mg tablet Take 1 tablet by mouth two times a day. ammonium lactate (LAC-HYDRIN) 12 % lotion Apply 1 application to affected area as needed for Dry Skin. melatonin 3 mg Take by mouth daily at bedtime. COMPOUNDED PRESCRIPTION Cock up wrist splint, right Medium. To be worn nightly to prevent carpal tunnel symptoms. Dx: carpal tunnel right Cholecalciferol, Vitamin D3, 1,000 unit cap Take 1 capsule by mouth once daily. cyanocobalamin (VITAMIN B-12) 1,000 mcg Tab Take 1 tablet by mouth once daily. Dx: pernicious anemia Blood-Glucose Meter, Drum-type (ACCU-CHEK COMPACT PLUS CARE) Misc Kit 1 Each. Accu-Check Compact Plus Meter Diagnosis: Diabetes Mellitus ASPIRIN 81 MG TAB Take one (1) tablet daily . No current facility-administered medications for this visit. Medications and allergies reviewed by this provider. SOCIAL HISTORY Social History Tobacco Use Smoking status: Former Current packs/day: 0.00 Average packs/day: 1 pack/day for 21.0 years (21.0 ttl pk-yrs) Types: Cigarettes Start date: 11/23/1952 Quit date: 09/19/1973 Years since quittin.6 Smokeless tobacco: Never Vaping Use Vaping status: Never Used Substance Use Topics Alcohol use: Yes Comment: occas glass of wine Drug use: No REVIEW OF SYSTEMS All other reviewed and negative other than HPI. OBJECTIVE: BP 112/60 Pulse 99 Resp 18 Wt 67.9 kg (149 lb 11.1 oz) SpO2 92% BMI 28.28 kg/m . Vital signs reviewed by this provider. APPEARANCE Well appearing, alert, in no acute distress, well-hydrated, well nourished. EYES conjunctiva and sclera normal. HEART RRR with normal S1 and S2, no murmurs, no gallops, no JVD appreciated LUNG clear to auscultation. No wheezes, rhonchi or rales EXTREMITIES Extremities normal, No deformities, No skin discoloration, and No edema SKIN area of macerated erythema under abdominal pannus otherwise Skin color, texture, turgor normal, no suspicious rashes or lesions to exposed skin Latest Ref Rn 05/15/2024 Protein, Total 6.3 - 8.0 g/dL 7.2 Albumin 3.9 - 4.9 g/dL 4.7 Calcium 8.5 - 10.2 mg/dL 9.9 Bilirubin, Total 0.2 - 1.3 mg/dL 0.2 Alkaline Phosphatase 34 - 123 U/L 77 AST 13 - 35 U/L 19 ALT 7 - 38 U/L 9 Glucose 74 - 99 mg/dL 150 (H) BUN 7 - 21 mg/dL 17 Creatinine 0.58 - 0.96 mg/dL 1.06 (H) Sodium 136 - 144 mmol/L 138 Potassium 3.7 - 5.1 mmol/L 4.3 Chloride 98 - 107 mmol/L 100 CO2 22 - 30 mmol/L 25 Anion Gap 8 - 15 mmol/L 13 eGFR >=60 mL/min/1.73m 50 (L) Hemoglobin A1C 4.3 - 5.6 % 8.3 (H) Estimated Average Glucose mg/dL 192 Latest Ref Rng 12/20/2023 Total Cholesterol, Nonfasting <200 mg/dL 142 Triglycerides, Nonfasting <150 mg/dL 163 (H) HDL Cholesterol, Nonfasting >39 mg/dL 52 LDL Cholesterol, Nonfasting <100 mg/dL 57 Non HDL Cholesterol, Nonfasting <130 mg/dL 90 VLDL Cholesterol, Nonfasting <30 mg/dL 33 (H) Total Chol/HDL Ratio, Nonfasting <5.10 mg/dL 2.73 LDL/HDL Ratio, Nonfasting <2.54 mg/dL 1.10 Depression Screening Never done Anxiety Screening Never done Advance Directive Discussion due on 09/19/2023 Covid-19 Vaccine( season) due on 04/23/2024 DTaP,Tdap,Td Vaccine(2 - Tdap) due on 11/15/2024 RSV Vaccine(1 - 1-dose 60+ series) due on 11/15/2024 Shingrix Vaccine(2 of 2) due on 11/15/2024 Influenza Vaccine(1) due on 05/20/2024 Urine Albumin:Creatinine Ratio due on 08/15/2024 HbA1C due on 08/15/2024 Dilated Retinal Exam due on 11/15/2024 LDL Cholesterol due on 12/19/2024 Diabetic Foot Exam due on 04/06/2025 Bone Density Screening Completed Pneumococcal Vaccine: 65+ Completed ASSESSMENT/PLAN: 1. DM type 2 with diabetic peripheral neuropathy (HCC) - ICD9: 250.60, 357.2, ICD10: E11.42 (primary diagnosis) - Worsening control - Increase Insulin glargine (Lantus/Basaglar/Toujeo) - Statin prescribed - rosuvastatin - Blood glucose monitoring on a twice daily schedule- update me in one week with readings - Counseled on healthy diet and regular exercise - Follow up in 3 months, sooner should any other issues arise. - GABAPENTIN 400 MG CAPSULE- update me in two weeks if not improving - LANTUS SOLOSTAR U-100 INSULIN 100 UNIT/ML (3 ML) SUBCUTANEOUS PEN - HEMOGLOBIN A1C 2. Essential hypertension - ICD9: 401.9, ICD10: I10 - Controlled - Continue current medications - Recommend home blood pressure monitoring, to bring results to next visit - Encouraged sodium restriction, DASH or Mediterranean diet - Recommend regular aerobic exercise - Follow up in 6 months for hypertension visit - HYDROCHLOROTHIAZIDE 12.5 MG CAPSULE 3. Mixed hyperlipidemia - ICD9: 272.2, ICD10: E78.2 - Controlled - Continue current medications - Counseled on healthy diet and regular exercise - Follow up in 6 months, sooner should any other issues arise. 4. Intertrigo - ICD9: 695.89, ICD10: L30.4 - discussed skin care to area - CLOTRIMAZOLE 1 % TOPICAL CREAM - follow-up if fails to improve 5. Stage 3b chronic kidney disease (HCC) - ICD9: 585.3, ICD10: N18.32 - eGFR: 50 Improving - Counseled on avoiding NSAIDs, adequate hydration - Counseled on low sodium diet - follow-up in 6 months - COMPREHENSIVE METABOLIC PANEL Tosha Pelaez APRN.CNP Prescription instructions reviewed with patient as applicable. Patient advised if symptoms do not improve or if symptoms worsen sooner, to contact their primary care physician. Potential red flag symptoms discussed with the patient. Reviewed appropriate action plan to take if red flag symptoms occur. Patient agreeable to treatment plan. Medical Decision Making: Problems: Low: Acute, uncomplicated illness or injury Moderate: 2+ stable chronic illnesses Data: Unique test(s) ordered: 2 Risk: Moderate: Drug management Medical Decision Making Level: 4 - Moderate documented in this encounterA[facility]08-28-[facility]24 NoteHNO ID: [id number] Author: TOSHA PELAEZ APRN.CNP Service: ? Author Type: Nurse Practitioner Type: Progress Notes Filed: 05/16/2024 11:14 Note Text: 05/16/2024 Patient presents with: F/U 3 Month SUBJECTIVE: This is a 89 year old that is here today for Above Complaints. Since last office visis has been in good health without ER visits or hospitalizations DIABETES MELLITUS: Since our last visit she denies excessive thirst or increased frequency of urination, chest pain or dyspnea , numbness, tingling or pain in extremities, new or unusual visual symptoms, low sugar/hypoglycemic reactions, weight loss/gain, lightheadedness/dizziness, and bowel changes/loose stools Follows a diabetic diet some of the time. She is compliant with medication(s) and is tolerating med(s) without any side effects. She reports checking her glucose on a once a day schedule with sugars in the fasting 72-220 with most in the 120-150 range. Patient's last HgA1C was Hemoglobin A1C (%) Date Value 05/15/2024 8.3 12/20/2023 6.5 11/03/2021 7.9 07/22/2021 7.8 ) Last Ophthalmology exam was within the past 12 months Last Podiatry exam was within the past 3 months HTN: Patient is compliant with meds Yes Monitors bp at home: No. Denies side effects: No. Chest pain: No. Dyspnea: No. Edema: No. Palpitations: No. Syncope: No. Headache: No. Dizziness: No. HYPERLIPIDEMIA: Patient is taking medications: Yes. Patient is watching diet: Yes. Patient denies myalgias: Yes. Patient denies gi upset: Yes Only took gabapentin for a month but then stopped because she ran out. Doesn't think it helped a whole lot Has rash under her abdomen. She wears a brief all day. Area can be itchy PAST MEDICAL HISTORY No date: Arthritis No date: Benign neoplasm of colon No date: Carpal tunnel syndrome, right No date: Chronic kidney disease, stage 3 ([facility]) 10/10/2020: Diverticulitis No date: Diverticulosis of colon (without mention of hemorrhage) No date: Gout No date: History of transfusion No date: Internal hemorrhoids without mention of complication No date: Lumbago 1996: Malignant neoplasm of corpus uteri, except isthmus ([facility]) Comment: Uterine cancer No date: Other and unspecified hyperlipidemia 2014: PAD (peripheral artery disease) ([facility]) Comment: Mild LLE No date: Pernicious anemia No date: Restless leg syndrome No date: Rotator cuff tendinitis Comment: left No date: Trigger finger, right middle finger Comment: Seen by Dr. Burns 2015 No date: Type II or unspecified type diabetes mellitus without mention of complication, uncontrolled No date: Unspecified essential hypertension ALLERGIES Lipitor [Atorvastatin] and Simvastatin MEDICATIONS Current Outpatient Medications Medication Sig hydroCHLOROthiazide 12.5 mg capsule Take 1 capsule by mouth once daily. lisinopril 2.5 mg tablet Take 1 tablet by mouth once daily. rosuvastatin (CRESTOR) 20 mg tablet Take 1 tablet by mouth daily at bedtime. insulin glargine (LANTUS SOLOSTAR U-100 INSULIN) 100 unit/mL (3 mL) Inject 20 Units subcutaneously daily at bedtime. gabapentin (NEURONTIN) 400 mg capsule Take 1 capsule by mouth two times a day for 90 days. pramipexole (MIRAPEX) 0.25 mg tablet Take 1 tablet by mouth daily at bedtime. blood sugar diagnostic (TRUE METRIX GLUCOSE TEST STRIP) test strip Test once daily DX:250.02 Insulin: Yes Lancets lancets Pt requests Truedraw lancets. Test blood sugar(s) 1 times daily. Dx: Other DM Code 250.02 Insulin: Yes Lancets (ACCU-CHEK SOFTCLIX LANCETS) lancets Use Three times daily to check blood sugar Insulin [place], Disposable, (PEN NEEDLE) 29 gauge x 1/2 One needle once daily. Dx: 250.02 Insulin: yes Acetaminophen 500 mg cap Take 2 capsules by mouth two times a day as needed for pain. Reports will utilize 1 500mg tab 1-2 times in between the 1000 mg doses Miscellaneous [employer] (BLOOD PRESSURE CUFF) 1 Each once daily. ondansetron (ZOFRAN) 4 mg tablet Take 4 mg by mouth every 8 hours as needed for nausea/vomiting. meclizine (ANTIVERT) 25 mg tab Take 25 mg by mouth three times a day. cephALEXin (KEFLEX) 500 mg capsule Take 500 mg by mouth three times a day. (Patient not taking: Reported on 04/06/2024) blood sugar diagnostic (BLOOD GLUCOSE TEST) test strip Test blood sugar(s) 2 times daily. Dx: Type 2 DM - Controlled E11.9 Insulin: Yes allopurinol (ZYLOPRIM) 100 mg tablet Take 1 tablet by mouth two times a day. ammonium lactate (LAC-HYDRIN) 12 % lotion Apply 1 application to affected area as needed for Dry Skin. melatonin 3 mg Take by mouth daily at bedtime. COMPOUNDED PRESCRIPTION Cock up wrist splint, right Medium. To be worn nightly to prevent carpal tunnel symptoms. Dx: carpal tunnel right Cholecalciferol, Vitamin D3, 1,000 unit cap Take 1 capsule by mouth once daily. cyanocobalamin (VITAMIN B-12) 1,000 mcg Tab Take 1 tablet by mouth once daily. Dx: pernicious anemia Blood-G (more content not included)...[facility] [place]08-12-2024 Miscellaneous Notes* Telephone Encounter - Liset Chinchilla - 04/30/2024 11:50 AM EDT Patient would like to pick this rx tomorrow if possible. She will be there for something else. She would like a call at [phone] when sent to pharmacy. * Telephone Encounter - Liset Chinchilla - 04/30/2024 11:49 AM EDT Prescription Refill Information The patient has been identified by name and date of : Yes Caregiver verified no other encounters exist for this prescription request: Yes Caregiver confirmed with patient/requestor that no other refills are due, in the near future, with this provider at this time: Yes The last office visit in the department: 02/14/24 Does the patient have a future office visit with this provider/department: Yes Requested Prescriptions Pending Prescriptions Disp Refills hydroCHLOROthiazide 12.5 mg capsule 90 capsule 1 Sig: Take 1 capsule by mouth once daily. Liset William April 30, 2024 11:49 AM [facility] Telephone encounter Note * Telephone Encounter - Liset Chinchilla - 04/30/2024 11:50 AM EDT Patient would like to pick this rx tomorrow if possible. She will be there for something else. She would like a call at [phone] when sent to pharmacy. [facility]08-12-2024 Telephone encounter Note* Telephone Encounter - Liset Chinchilla - 04/30/2024 11:49 AM EDT Prescription Refill Information The patient has been identified by name and date of : Yes Caregiver verified no other encounters exist for this prescription request: Yes Caregiver confirmed with patient/requestor that no other refills are due, in the near future, with this provider at this time: Yes The last office visit in the department: 02/14/24 Does the patient have a future office visit with this provider/department: Yes Requested Prescriptions Pending Prescriptions Disp Refills hydroCHLOROthiazide 12.5 mg capsule 90 capsule 1 Sig: Take 1 capsule by mouth once daily. Liset William April 30, 2024 11:49 AM [facility]08-01-2024 Telephone encounter Note* Telephone Encounter - Dina Thompson - 04/19/2024 11:12 AM EDT Prescription Refill Information The patient has been identified by name and date of : Yes Caregiver verified no other encounters exist for this prescription request: Yes Caregiver confirmed with patient/requestor that no other refills are due, in the near future, with this provider at this time: Yes The last office visit in the department: 02-14-24 Does the patient have a future office visit with this provider/department: Yes Requested Prescriptions Pending Prescriptions Disp Refills lisinopril 2.5 mg tablet 90 tablet 1 Sig: Take 1 tablet by mouth once daily. Dina William April 19, 2024 11:12 AM [facility]08-01-2024 Miscellaneous Notes* Telephone Encounter - Dina Thompson - 04/19/2024 11:12 AM EDT Prescription Refill Information The patient has been identified by name and date of : Yes Caregiver verified no other encounters exist for this prescription request: Yes Caregiver confirmed with patient/requestor that no other refills are due, in the near future, with this provider at this time: Yes The last office visit in the department: 02-14-24 Does the patient have a future office visit with this provider/department: Yes Requested Prescriptions Pending Prescriptions Disp Refills lisinopril 2.5 mg tablet 90 tablet 1 Sig: Take 1 tablet by mouth once daily. Dina William April 19, 2024 11:12 AM documented in [facility] encounterA[facility] Telephone encounter Note * Telephone Encounter - Baylee Ochoa - 04/11/2024 9:53 AM EDT Prescription Refill Information The patient has been identified by name and date of : Yes Caregiver verified no other encounters exist for this prescription request: Yes Caregiver confirmed with patient/requestor that no other refills are due, in the near future, with this provider at this time: Yes The last office visit in the department: 02/14/24 Does the patient have a future office visit with this provider/department: Yes Requested Prescriptions Pending Prescriptions Disp Refills rosuvastatin (CRESTOR) 20 mg tablet 90 tablet 1 Sig: Take 1 tablet by mouth daily at bedtime. Baylee William April 11, 2024 9:53 AM [facility]07-24-2024 Miscellaneous Notes* Telephone Encounter - Baylee Ochoa - 04/11/2024 9:53 AM EDT Prescription Refill Information The patient has been identified by name and date of : Yes Caregiver verified no other encounters exist for this prescription request: Yes Caregiver confirmed with patient/requestor that no other refills are due, in the near future, with this provider at this time: Yes The last office visit in the department: 02/14/24 Does the patient have a future office visit with this provider/department: Yes Requested Prescriptions Pending Prescriptions Disp Refills rosuvastatin (CRESTOR) 20 mg tablet 90 tablet 1 Sig: Take 1 tablet by mouth daily at bedtime. Baylee William April 11, 2024 9:53 AM documented in this encounterA[facility]07-19-[facility]24 Instructions* Patient Instructions* Karel Santiago - 04/06/2024 1:38 PM EDT Diabetes Foot Care Instructions When you have diabetes, proper foot care is very important. Poor foot care may lead to amputation of a foot or leg. As a person with diabetes, you are more vulnerable to foot problems, because diabetes can damage your nerves and reduce blood flow to your feet. Here are some diabetes foot care tips to follow: Wash and Dry Your Feet Daily Use mild soaps Use warm water Pat your skin dry; do not rub. Thoroughly dry your feet. After washing, use lotion on your feet to prevent cracking. Do not put lotion between your toes. Examine Your Feet Each Day Check the tops and bottoms of your feet. Have someone else look at your feet if you cannot see them. Check for dry, cracked skin. Look for blisters, cuts, scratches, or other sores. Check for redness, increased warmth, or tenderness when touching any area of your feet. Check for ingrown toenails, corns, and calluses. If you get a blister or sore from your shoes, do not pop it. Apply a bandage and wear a differentpair of shoes. Take Care of Your Toenails Cut toenails after bathing, when they are soft. Cut toenails straight across and smooth with a nail file. Avoid cutting into the corners of toes. Do not cut cuticles. If you have neuropathy (or decreased sensation in your feet) a clinical informatics director should always cut your toenails. Be Careful When Exercising Walk and exercise in comfortable shoes. Do not exercise when you have open sores on your feet. Protect Your Feet With Shoes and Socks Never go barefoot. Always protect your feet by wearing shoes or hard-soled slippers or footwear. Avoid shoes with high heels and pointed toes. Avoid shoes that expose your toes or heels (such as open-toed shoes or sandals). These types of shoes increase your risk for injury and potential infections. Try on new footwear with the type of socks you usually wear. Do not wear new shoes for more than an hour at a time. Change your socks daily. Look and feel inside your shoes before putting them on to make sure there are no foreign objects orrough areas. Avoid tight socks. Wear natural-fiber socks (cotton, wool, or a cotton-wool blend). Wear special shoes if your health care provider recommends them. Wear shoes/boots that will protect your feet from various weather conditions (cold, moisture, etc.). Make sure your shoes fit properly. If you have neuropathy (nerve damage), you may not notice that your shoes are too tight. Perform the footwear test described below. Footwear Test Use this simple test to see if your shoes fit correctly: Stand on a piece of paper. (Make sure you are standing and not sitting, because your foot changes shape when you stand.) Trace the outline of your foot. Trace the outline of your shoe. Compare the tracings: Is the shoe too narrow? Is your foot crammed into the shoe? The shoe should be at least 1/2 inch longer than your longest toe and as wide as your foot. Proper Shoe Choices The following types of shoes are best for people with diabetes Closed toes and heels Leather uppers without a seam inside At least 1/2 inch extra space at the end of your longest toe Inside of shoe should be soft with no rough areas Outer sole should be made of stiff material Shoes should be at least as wide as your feet Tips for Foot Care in Diabetes Don't wait to treat a minor foot problem if you have diabetes. Follow your health care provider's guidelines and first aid guidelines. Report foot injuries and infections to your health care provider immediately. Check water temperature with your elbow, not your foot. Do not use a heating pad on your feet. Do not cross your legs. Do not self-treat your corns, calluses, or other foot problems. Go to your health care provider or clinical informatics director to treat these conditions. documented in this encounterA[facility]07-19-[facility]24 History of Present illness Narrative* Karel Santiago - 04/06/2024 1:33 PM EDT Last saw pcp: 02/14/24 Subjective: Patient presents to clinic c/o painful toenails. They state that the nails are especially painful with shoe gear and pressure. Patient states that nails 1-5 b/l are painful. Patient admits to being diabetic. No other pedal complaints at this time. Patient states no change in medications or medical history since last visit. Objective: Patient presents to clinic ambulating in [facility] Vasc: DP and PT pulses are palpable bilateral. CFT is less than 5 seconds bilateral. Skin temperature is warm to cool proximal to distal bilateral. There is mild edema or varicosities noted. Neuro: Protective sensation is intact to the foot and toes when tested with the 5.07 SWM bilateral.Vibratory sensation is decreased at the hallux IPJ bilateral. The hallux is downgoing bilateral. Derm: Nails 1-5 b/l are painful, discolored-yellow, thick, crumbly, dystrophic and with subungal debris. Skin is of normal turgor, texture and hair growth is present bilateral. There are no hyperkeratosis, ulcerations, scars, verruca or other lesions noted. Ortho: Muscle strength is 5/5 for all pedal groups tested. Ankle joint DF is decreased with the knee extended with no pain or crepitus noted. 1st MPJ ROM is decreased bilateral. 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 Nails 1-5 bilateral were debrided in length and thickness. Patient was instructed on the continued importance of diabetic foot care along with proper diet and keeping their blood sugar under control to prevent complications. Reinforced need for daily foot inspection and need to avoid barefoot walking. Patient is to RTC in 3-4 months. Karel Santiago DPM * Paris Ceja RN - 04/06/2024 1:02 PM EDT Patient presents with: Left Foot - Established Patient, Follow Up, Diabetic Foot Check Right Foot - Established Patient, Follow Up, Diabetic Foot Check Patient presents for follow up diabetic foot care/exam. MADISYN 12/30/23 documented in this encounterA[facility]07-19-2024 NoteHNO ID: [id number] Author: KAREL SANTIAGO, ? Service: ? Author Type: Physician Type: Progress Notes Filed: 04/06/2024 13:53 Note Text: Last saw pcp: 02/14/24 Subjective: Patient presents to clinic c/o painful toenails. They state that the nails are especially painful with shoe gear and pressure. Patient states that nails 1-5 b/l are painful. Patient admits to being diabetic. No other pedal complaints at this time. Patient states no change in medications or medical history since last visit. Objective: Patient presents to clinic ambulating in [facility] Vasc: DP and PT pulses are palpable bilateral. CFT is less than 5 seconds bilateral. Skin temperature is warm to cool proximal to distal bilateral. There is mild edema or varicosities noted. Neuro: Protective sensation is intact to the foot and toes when tested with the 5.07 SWM bilateral. Vibratory sensation is decreased at the hallux IPJ bilateral. The hallux is downgoing bilateral. Derm: Nails 1-5 b/l are painful, discolored-yellow, thick, crumbly, dystrophic and with subungal debris. Skin is of normal turgor, texture and hair growth is present bilateral. There are no hyperkeratosis, ulcerations, scars, verruca or other lesions noted. Ortho: Muscle strength is 5/5 for all pedal groups tested. Ankle joint DF is decreased with the knee extended with no pain or crepitus noted. 1st MPJ ROM is decreased bilateral. 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 Nails 1-5 bilateral were debrided in length and thickness. Patient was instructed on the continued importance of diabetic foot care along with proper diet and keeping their blood sugar under control to prevent complications. Reinforced need for daily foot inspection and need to avoid barefoot walking. Patient is to RTC in 3-4 months. Karel Santiago, [facility]07-19-2024 NoteHNO ID: [id number] Author: PARIS CEJA RN Service: ? Author Type: Registered Nurse Type: Progress Notes Filed: 04/06/2024 13:53 Note Text: Patient presents with: Left Foot - Established Patient, Follow Up, Diabetic Foot Check Right Foot - Established Patient, Follow Up, Diabetic Foot Check Patient presents for follow up diabetic foot care/exam. MADISYN 12/30/23[facility]07-08-2024 Telephone encounter Note* Telephone Encounter - Asia Toledo - 03/26/2024 12:01 PM EDT Prescription Refill Information The patient has been identified by name and date of : Yes Caregiver verified no other encounters exist for this prescription request: Yes Caregiver confirmed with patient/requestor that no other refills are due, in the near future, with this provider at this time: Yes The last office visit in the department: 02-14-24 Does the patient have a future office visit with this provider/department: Yes Requested Prescriptions Pending Prescriptions Disp Refills insulin glargine (LANTUS SOLOSTAR U-100 INSULIN) 100 unit/mL (3 mL) 38 mL 1 Sig: Inject 20 Units subcutaneously daily at bedtime. Asia William March 26, 2024 12:02 PM [facility]07-08-2024 Miscellaneous Notes* Telephone Encounter - Asia Toledo - 03/26/2024 12:01 PM EDT Prescription Refill Information The patient has been identified by name and date of : Yes Caregiver verified no other encounters exist for this prescription request: Yes Caregiver confirmed with patient/requestor that no other refills are due, in the near future, with this provider at this time: Yes The last office visit in the department: 02-14-24 Does the patient have a future office visit with this provider/department: Yes Requested Prescriptions Pending Prescriptions Disp Refills insulin glargine (LANTUS SOLOSTAR U-100 INSULIN) 100 unit/mL (3 mL) 38 mL 1 Sig: Inject 20 Units subcutaneously daily at bedtime. Asia William March 26, 2024 12:02 PM documented in this encounterA[facility]05-28-2024 History of Present illness Narrative* Maribel Fay MD - 02/14/2024 11:12 AM EDT Chief Complaint Patient presents with: Follow Up: 3 month HPI Charlette Farmer is a 88 year old female who presents here today for 3 month diabetes follow up. DIABETES MELLITUS: Ms. Farmer was last seen 2 months ago. Since our last visit she denies excessive thirst or increased frequency of urination, numbness, tingling or pain in extremities, new or unusual visual symptoms, and low sugar/hypoglycemic reactions. Rare low sugar into the 70's if she misses a meal. Follows a diabetic diet most of the time. She is compliant with medication(s) and is tolerating med(s) without any side effects. She reports checking her glucose on a once a day schedule with sugars in the fasting 90-150 range. Patient's last HgA1C was Hemoglobin A1C (%) Date Value 12/20/2023 6.5 08/15/2023 8.0 11/03/2021 7.9 07/22/2021 7.8 ) Last Ophthalmology exam was within the past 12 months no retinopathy Last Podiatry exam was within the past 12 months Taking gabapentin 300 mg BID for DM neuropathy, but has not been helping much since September. Complaining of aching pain in her left leg from her groin to her [place]. Denies fall or injury to back or hip since fall in September with negative left hip xray for fracture or dislocation. Treating with OTC tylenol cream which helps with symptoms before bed. Doing exercises from PT on a daily basis. Past medical history, appointments, medications, allergies reviewed. Previous Medical History PAST MEDICAL HISTORY Diagnosis Date Arthritis Benign neoplasm of colon Carpal tunnel syndrome, right Chronic kidney disease, stage 3 (HCC) Diverticulitis 10/10/2020 Diverticulosis of colon (without mention of hemorrhage) Gout History of transfusion Internal hemorrhoids without mention of complication Lumbago Malignant neoplasm of corpus uteri, except isthmus (HCC) 1996 Uterine cancer Other and unspecified hyperlipidemia PAD (peripheral artery disease) (HCC) 2013 Mild LLE Pernicious anemia Restless leg syndrome Rotator cuff tendinitis left Trigger finger, right middle finger Seen by Dr. Burns 2015 Type II or unspecified type diabetes mellitus without mention of complication, uncontrolled Unspecified essential hypertension Previous Surgical History PAST SURGICAL HISTORY Procedure Laterality Date ABDOMINAL SURGERY HX APPENDECTOMY 1953 BACK SURGERY HX CHOLECYSTECTOMY 11/28/2011 COLONOSCOPY FLX DX W/COLLJ SPEC WHEN PFRMD 2001 out of state sigmoidoscopy COLONOSCOPY FLX DX W/COLLJ SPEC WHEN PFRMD 10/22/2013 Colonoscopy COLONOSCOPY GEN ANES 01/07/2021 Dr. Phillips, Polyps. repeat in 3 years. COLONOSCOPY W/BIOPSY SINGLE/MULTIPLE 11/12/2008 DILATION & CURETTAGE DX&/THER NONOBSTETRIC 1965 Dilation & curettage EGD 01/07/2021 EYE SURGERY HX LAMINECTOMY W/O FFD 09/20 VERT SEG LUMBAR 1971 Laminectomy, lumbar, fusion PAST SURGICAL HISTORY OF Left 09/01/2017 Trigger finger release of left ringer finger REVISE MEDIAN N/CARPAL TUNNEL SURG Right 05/31/2023 TONSILLECTOMY HX TUBAL LIGATION HX VAGINAL HYSTERECTOMY VAGINAL HYSTERECTOMY UTERUS 250 GM/< 1997 Hysterectomy, vaginal Family History FAMILY HISTORY Problem Relation Age of Onset Cancer Mother breast, lung cancer was heavy smoker Diabetes Maternal Grandmother Diabetes Maternal Grandfather other (no siblings) Maternal Grandfather Patient Allergies ALLERGIES Allergen Reactions Lipitor [Atorvastat* Intolerance myalgia Simvastatin Intolerance myalgia Current Medications Current Outpatient Medications on File Prior to Visit Medication Sig pramipexole (MIRAPEX) 0.25 mg tablet Take 1 tablet by mouth daily at bedtime. gabapentin (NEURONTIN) 300 mg capsule Take 1 capsule by mouth two times a day for 90 days. insulin glargine (LANTUS SOLOSTAR U-100 INSULIN) 100 unit/mL (3 mL) Inject 20 Units subcutaneously daily at bedtime. blood sugar diagnostic (TRUE METRIX GLUCOSE TEST STRIP) test strip Test once daily DX:250.02 Insulin: Yes Lancets lancets Pt requests Truedraw lancets. Test blood sugar(s) 1 times daily. Dx: Other DM Code 250.02 Insulin: Yes Lancets (ACCU-CHEK SOFTCLIX LANCETS) lancets Use Three times daily to check blood sugar lisinopril 2.5 mg tablet Take 1 tablet by mouth once daily. rosuvastatin (CRESTOR) 20 mg tablet Take 1 tablet by mouth daily at bedtime. Insulin Volborg, Disposable, (PEN NEEDLE) 29 gauge x 1/2 One needle once daily. Dx: 250.02 Insulin: yes hydroCHLOROthiazide 12.5 mg capsule Take 1 capsule by mouth once daily. Acetaminophen 500 mg cap Take 2 capsules by mouth two times a day as needed for pain. Reports will utilize 1 500mg tab 1-2 times in between the 1000 mg doses Miscellaneous Medical Supply (BLOOD PRESSURE CUFF) 1 Each once daily. ondansetron (ZOFRAN) 4 mg tablet Take 4 mg by mouth every 8 hours as needed for nausea/vomiting. meclizine (ANTIVERT) 25 mg tab Take 25 mg by mouth three times a day. cephALEXin (KEFLEX) 500 mg capsule Take 500 mg by mouth three times a day. blood sugar diagnostic (BLOOD GLUCOSE TEST) test strip Test blood sugar(s) 2 times daily. Dx: Type 2 DM - Controlled E11.9 Insulin: Yes allopurinol (ZYLOPRIM) 100 mg tablet Take 1 tablet by mouth two times a day. ammonium lactate (LAC-HYDRIN) 12 % lotion Apply 1 application to affected area as needed for Dry Skin. melatonin 3 mg Take by mouth daily at bedtime. COMPOUNDED PRESCRIPTION Cock up wrist splint, right Medium. To be worn nightly to prevent carpal tunnel symptoms. Dx: carpal tunnel right Cholecalciferol, Vitamin D3, 1,000 unit cap Take 1 capsule by mouth once daily. cyanocobalamin (VITAMIN B-12) 1,000 mcg Tab Take 1 tablet by mouth once daily. Dx: pernicious anemia Blood-Glucose Meter, Drum-type (ACCU-CHEK COMPACT PLUS CARE) Misc Kit 1 Each. Accu-Check Compact Plus Meter Diagnosis: Diabetes Mellitus ASPIRIN 81 MG TAB Take one (1) tablet daily . No current facility-administered medications on file prior to visit. Social History Social History Tobacco Use Smoking status: Former Packs/day: 1.00 Years: 21.00 Additional pack years: 0.00 Total pack years: 21.00 Types: Cigarettes Start date: 11/23/1952 Quit date: 09/19/1973 Years since quittin.4 Smokeless tobacco: Never Vaping Use Vaping Use: Never used Substance Use Topics Alcohol use: Yes Comment: occas glass of wine Drug use: No Review of Symptoms REVIEW OF SYSTEMS GENERAL: No weight loss, malaise or fevers RESPIRATORY: Negative for cough, hemoptysis, wheezing, COPD, dyspnea or shortness of breath CARDIOVASCULAR: Negative for chest pain, leg swelling, hypertension, CHF or palpitations GI: No nausea, vomiting, or diarrhea SKIN: Negative for lesions, rash, and itching EXAM: BP 104/62 Pulse 84 Resp 16 Wt 67.9 kg (149 lb 9.6 oz) SpO2 95% BMI 28.27 kg/m General Appearance: Well appearing, alert, in no acute distress, well-hydrated, well nourished.. Skin: Skin color, texture, turgor normal, no suspicious rashes or lesions. Lungs: Lungs clear to auscultation. No wheezing, rhonchi, rales.. Heart: RRR without murmur, gallop, or rubs. No ectopy. Abdomen: Normal abdominal exam, Abdomen soft, non-tender. Bowel sounds normal. No masses, organomegaly. Extremities: No deformities, edema, skin discoloration, clubbing or cyanosis. Good capillary refill. . Health Maintenance List Advance Directive Discussion due on 09/19/2023 Behavioral Health Screening Never done Dilated Retinal Exam due on 10/06/2023 Diabetic Foot Exam due on 03/10/2024 DTaP,Tdap,Td Vaccine(2 - Tdap) due on 11/15/2024 RSV Vaccine(1 - 1-dose 60+ series) due on 11/15/2024 Shingrix Vaccine(2 of 2) due on 11/15/2024 Covid-19 Vaccine(2022- season) due on 04/23/2024 HbA1C due on 06/20/2024 Urine Albumin:Creatinine Ratio due on 08/15/2024 LDL Cholesterol due on 12/19/2024 Bone Density Screening Completed Influenza Vaccine Completed Pneumococcal Vaccine: 65+ Completed Data reviewed Latest Ref Rng 10/04/2023 12/20/2023 Protein, Total 6.3 - 8.0 g/dL 7.5 7.2 Albumin 3.9 - 4.9 g/dL 4.7 4.6 Calcium 8.5 - 10.2 mg/dL 10.6 (H) 10.1 Bilirubin, Total 0.2 - 1.3 mg/dL 0.2 0.3 Alkaline Phosphatase 34 - 123 U/L 69 73 AST 13 - 35 U/L 21 19 ALT 7 - 38 U/L 10 9 Glucose 74 - 99 mg/dL 138 (H) 128 (H) BUN 7 - 21 mg/dL 34 (H) 16 Creatinine 0.58 - 0.96 mg/dL 1.37 (H) 1.08 (H) Sodium 136 - 144 mmol/L 138 135 (L) Potassium 3.7 - 5.1 mmol/L 4.2 4.2 Chloride 97 - 105 mmol/L 101 102 CO2 22 - 30 mmol/L 24 24 Anion Gap 9 - 18 mmol/L 13 9 eGFR >=60 mL/min/1.73m 37 (L) 50 (L) Total Cholesterol, Nonfasting <200 mg/dL 142 Triglycerides, Nonfasting <150 mg/dL 163 (H) HDL Cholesterol, Nonfasting >39 mg/dL 52 LDL Cholesterol, Nonfasting <100 mg/dL 57 Non HDL Cholesterol, Nonfasting <130 mg/dL 90 VLDL Cholesterol, Nonfasting <30 mg/dL 33 (H) Total Chol/HDL Ratio, Nonfasting <5.10 mg/dL 2.73 LDL/HDL Ratio, Nonfasting <2.54 mg/dL 1.10 Hemoglobin A1C 4.3 - 5.6 % 6.5 (H) Estimated Average Glucose mg/dL 140 Legend: (H) High (L) Low ASSESSMENT/PLAN: 1. DM type 2 with diabetic peripheral neuropathy (HCC) - ICD9: 250.60, 357.2, ICD10: E11.42 (primary diagnosis) - Controlled - Continue current medications - Statin prescribed - rosuvastatin - Blood glucose monitoring on a once daily schedule - Counseled on healthy diet and regular exercise - Discussed need for and benefit of weight loss. BMI 28.04 kg/(m^2) - Discussed diabetic education issues of diabetes complications and monitoring required, hypoglycemic/hyperglycemic symptoms, medication-specific side effects and monitoring, and diabetic sick day rules - Follow up in 3 months, sooner should any other issues arise. Increase gabapentin for neuropathy to 400 mg BID. Call if not helping with leg pain in 2-3 weeks. PDMP website checked and validated. All prescriptions have been APPROPRIATELY filled. No suspiciousactivity was identified. 02/14/2024 by Maribel Fay MD 2. Stage 4 chronic kidney disease (HCC) - ICD9: 585.4, ICD10: N18.4 - eGFR: 50 Stable - Counseled on avoiding NSAIDs, adequate hydration - Counseled on low sodium diet 3. PAD (peripheral artery disease) (HCC) - ICD9: 443.9, ICD10: I73.9 Asymptomatic on current regimen. Maribel Fay MD documented in [facility] encounterA[facility] Telephone encounter Note * Telephone Encounter - Oneida Stern - 01/11/2024 9:37 AM EDT Patient has been identified by name and date of : Yes, Provider Maribel Fay MD Date 01/11/2024 Time 9:39 am Patient phones for refill(s): Requested Prescriptions Pending Prescriptions Disp Refills pramipexole (MIRAPEX) 0.25 mg tablet 90 tablet 3 Sig: Take 1 tablet by mouth daily at bedtime. Date of last office visit in primary care: 12/23/2023 Date of next office visit in primary care: 02/14/2024 Please advise. Thank you. Oneida Thomas. [facility]04-24-[facility]24 Miscellaneous Notes* Telephone Encounter - Oneida Stern - 01/11/2024 9:37 AM EDT Patient has been identified by name and date of : Yes, Provider Maribel Fay MD Date 01/11/2024 Time 9:39 am Patient phones for refill(s): Requested Prescriptions Pending Prescriptions Disp Refills pramipexole (MIRAPEX) 0.25 mg tablet 90 tablet 3 Sig: Take 1 tablet by mouth daily at bedtime. Date of last office visit in primary care: 12/23/2023 Date of next office visit in primary care: 02/14/2024 Please advise. Thank you. Oneida Thomas. documented [place] encounterB[place] [address]-12[place]2024 History of Present illness Narrative* Karel Santiago - 12/30/2023 11:46 AM EDT Last saw pcp: 12/23/23 Subjective: Patient presents to clinic c/o painful toenails. They state that the nails are especially painful with shoe gear and pressure. Patient states that nails 1-5 b/l are painful. Patient admits to being diabetic. No other pedal complaints at this time. Patient states no change in medications or medical history since last visit. Objective: Patient presents to clinic ambulating in [facility] Vasc: DP and PT pulses are faintly palpable bilateral. CFT is less than 5 seconds bilateral. Skin temperature is warm to cool proximal to distal bilateral. There is mild edema or varicosities noted. Neuro: Protective sensation is intact to the foot and toes when tested with the 5.07 SWM bilateral.Vibratory sensation is decreased at the hallux IPJ bilateral. The hallux is downgoing bilateral. Derm: Nails 1-5 b/l are painful, discolored-yellow, thick, crumbly, dystrophic and with subungal debris. Skin is of normal turgor, texture and hair growth is present bilateral. There are no hyperkeratosis, ulcerations, scars, verruca or other lesions noted. Ortho: Muscle strength is 5/5 for all pedal groups tested. Ankle joint DF is decreased with the knee extended with no pain or crepitus noted. 1st MPJ ROM is decreased bilateral. 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 Nails 1-5 bilateral were debrided in length and thickness. Patient was instructed on the continued importance of diabetic foot care along with proper diet and keeping their blood sugar under control to prevent complications. Discussed neuropathy. Recommend avoiding barefoot walking, use of lotion and wearing good supportive shoes. Patient is to RTC in 3-4 months. Karel Santiago DPM * Irene Moyer RN - 12/30/2023 11:44 AM EDT Patient presents with: Left Foot - Established Patient, Debridement of Nail Right Foot - Established Patient, Debridement of Nail documented in this encounterA[facility]04-12-2024 Instructions* Patient Instructions* Karel Santiago - 12/30/2023 11:46 AM EDT Diabetes Foot Care Instructions When you have diabetes, proper foot care is very important. Poor foot care may lead to amputation of a foot or leg. As a person with diabetes, you are more vulnerable to foot problems, because diabetes can damage your nerves and reduce blood flow to your feet. Here are some diabetes foot care tips to follow: Wash and Dry Your Feet Daily Use mild soaps Use warm water Pat your skin dry; do not rub. Thoroughly dry your feet. After washing, use lotion on your feet to prevent cracking. Do not put lotion between your toes. Examine Your Feet Each Day Check the tops and bottoms of your feet. Have someone else look at your feet if you cannot see them. Check for dry, cracked skin. Look for blisters, cuts, scratches, or other sores. Check for redness, increased warmth, or tenderness when touching any area of your feet. Check for ingrown toenails, corns, and calluses. If you get a blister or sore from your shoes, do not pop it. Apply a bandage and wear a differentpair of shoes. Take Care of Your Toenails Cut toenails after bathing, when they are soft. Cut toenails straight across and smooth with a nail file. Avoid cutting into the corners of toes. Do not cut cuticles. If you have neuropathy (or decreased sensation in your feet) a clinical informatics director should always cut your toenails. Be Careful When Exercising Walk and exercise in comfortable shoes. Do not exercise when you have open sores on your feet. Protect Your Feet With Shoes and Socks Never go barefoot. Always protect your feet by wearing shoes or hard-soled slippers or footwear. Avoid shoes with high heels and pointed toes. Avoid shoes that expose your toes or heels (such as open-toed shoes or sandals). These types of shoes increase your risk for injury and potential infections. Try on new footwear with the type of socks you usually wear. Do not wear new shoes for more than an hour at a time. Change your socks daily. Look and feel inside your shoes before putting them on to make sure there are no foreign objects orrough areas. Avoid tight socks. Wear natural-fiber socks (cotton, wool, or a cotton-wool blend). Wear special shoes if your health care provider recommends them. Wear shoes/boots that will protect your feet from various weather conditions (cold, moisture, etc.). Make sure your shoes fit properly. If you have neuropathy (nerve damage), you may not notice that your shoes are too tight. Perform the footwear test described below. Footwear Test Use this simple test to see if your shoes fit correctly: Stand on a piece of paper. (Make sure you are standing and not sitting, because your foot changes shape when you stand.) Trace the outline of your foot. Trace the outline of your shoe. Compare the tracings: Is the shoe too narrow? Is your foot crammed into the shoe? The shoe should be at least 1/2 inch longer than your longest toe and as wide as your foot. Proper Shoe Choices The following types of shoes are best for people with diabetes Closed toes and heels Leather uppers without a seam inside At least 1/2 inch extra space at the end of your longest toe Inside of shoe should be soft with no rough areas Outer sole should be made of stiff material Shoes should be at least as wide as your feet Tips for Foot Care in Diabetes Don't wait to treat a minor foot problem if you have diabetes. Follow your health care provider's guidelines and first aid guidelines. Report foot injuries and infections to your health care provider immediately. Check water temperature with your elbow, not your foot. Do not use a heating pad on your feet. Do not cross your legs. Do not self-treat your corns, calluses, or other foot problems. Go to your health care provider or clinical informatics director to treat these conditions. documented in this encounterA[facility]04-05-2024 History of Present illness Narrative* Maribel Fay MD - 12/23/2023 11:28 AM EDT Chief Complaint Patient presents with: Follow Up: 1 week follow up low BS and insulin adjustment HPI Charlette Farmer is a 88 year old female who presents here today for Above Complaints. Patient here today to follow up on recent hypoglycemic episodes despite lowering her Lantus to 40 units at last OV. Called multiple times in the last week with low sugars <80 and we have reduced her to 20 units at bedtime on 12/18. Since reducing the dosage, her fasting readings have been in the 120-154 range. Denies hypoglycemic symptoms since that time. Eating 3 meals per day, but is eating healthier in attempt to lose weight. Still wanting to get to 140 lbs. Complaining of neuropathy in her left leg from ankle to hip which has been going on for about 3-4 months. Doing her exercises from her hip pain from fall back in August without improvement. Taking tylenol every 8 hours which takes the edge off, but does not last long enough. Requesting COVID booster today. Past medical history, appointments, medications, allergies reviewed. Previous Medical History PAST MEDICAL HISTORY Diagnosis Date Arthritis Benign neoplasm of colon Carpal tunnel syndrome, right Chronic kidney disease, stage 3 (HCC) Diverticulitis 10/10/2020 Diverticulosis of colon (without mention of hemorrhage) Gout History of transfusion Internal hemorrhoids without mention of complication Lumbago Malignant neoplasm of corpus uteri, except isthmus (HCC) 1996 Uterine cancer Other and unspecified hyperlipidemia PAD (peripheral artery disease) (HCC) 2013 Mild LLE Pernicious anemia Restless leg syndrome Rotator cuff tendinitis left Trigger finger, right middle finger Seen by Dr. Burns 2015 Type II or unspecified type diabetes mellitus without mention of complication, uncontrolled Unspecified essential hypertension Previous Surgical History PAST SURGICAL HISTORY Procedure Laterality Date ABDOMINAL SURGERY HX APPENDECTOMY 1952 BACK SURGERY HX CHOLECYSTECTOMY 11/28/2011 COLONOSCOPY FLX DX W/COLLJ SPEC WHEN PFRMD 2001 out of state sigmoidoscopy COLONOSCOPY FLX DX W/COLLJ SPEC WHEN PFRMD 10/22/2013 Colonoscopy COLONOSCOPY GEN ANES 01/07/2021 Dr. Phillips, Polyps. repeat in 3 years. COLONOSCOPY W/BIOPSY SINGLE/MULTIPLE 11/12/2008 DILATION & CURETTAGE DX&/THER NONOBSTETRIC 1965 Dilation & curettage EGD 01/07/2021 EYE SURGERY HX LAMINECTOMY W/O FFD 09/20 VERT SEG LUMBAR 1971 Laminectomy, lumbar, fusion PAST SURGICAL HISTORY OF Left 09/01/2017 Trigger finger release of left ringer finger REVISE MEDIAN N/CARPAL TUNNEL SURG Right 05/31/2023 TONSILLECTOMY HX TUBAL LIGATION HX VAGINAL HYSTERECTOMY VAGINAL HYSTERECTOMY UTERUS 250 GM/< 1997 Hysterectomy, vaginal Family History FAMILY HISTORY Problem Relation Age of Onset Cancer Mother breast, lung cancer was heavy smoker Diabetes Maternal Grandmother Diabetes Maternal Grandfather other (no siblings) Maternal Grandfather Patient Allergies ALLERGIES Allergen Reactions Lipitor [Atorvastat* Intolerance myalgia Simvastatin Intolerance myalgia Current Medications Current Outpatient Medications on File Prior to Visit Medication Sig insulin glargine (LANTUS SOLOSTAR U-100 INSULIN) 100 unit/mL (3 mL) Inject 20 Units subcutaneously daily at bedtime. blood sugar diagnostic (TRUE METRIX GLUCOSE TEST STRIP) test strip Test once daily DX:250.02 Insulin: Yes Lancets lancets Pt requests Truedraw lancets. Test blood sugar(s) 1 times daily. Dx: Other DM Code 250.02 Insulin: Yes Lancets (ACCU-CHEK SOFTCLIX LANCETS) lancets Use Three times daily to check blood sugar lisinopril 2.5 mg tablet Take 1 tablet by mouth once daily. rosuvastatin (CRESTOR) 20 mg tablet Take 1 tablet by mouth daily at bedtime. Insulin Volborg, Disposable, (PEN NEEDLE) 29 gauge x 1/2 One needle once daily. Dx: 250.02 Insulin: yes hydroCHLOROthiazide 12.5 mg capsule Take 1 capsule by mouth once daily. Acetaminophen 500 mg cap Take 2 capsules by mouth two times a day as needed for pain. Reports will utilize 1 500mg tab 1-2 times in between the 1000 mg doses Miscellaneous Medical Supply (BLOOD PRESSURE CUFF) 1 Each once daily. ondansetron (ZOFRAN) 4 mg tablet Take 4 mg by mouth every 8 hours as needed for nausea/vomiting. meclizine (ANTIVERT) 25 mg tab Take 25 mg by mouth three times a day. cephALEXin (KEFLEX) 500 mg capsule Take 500 mg by mouth three times a day. blood sugar diagnostic (BLOOD GLUCOSE TEST) test strip Test blood sugar(s) 2 times daily. Dx: Type 2 DM - Controlled E11.9 Insulin: Yes pramipexole (MIRAPEX) 0.25 mg tablet Take 1 tablet by mouth daily at bedtime. allopurinol (ZYLOPRIM) 100 mg tablet Take 1 tablet by mouth two times a day. ammonium lactate (LAC-HYDRIN) 12 % lotion Apply 1 application to affected area as needed for Dry Skin. melatonin 3 mg Take by mouth daily at bedtime. COMPOUNDED PRESCRIPTION Cock up wrist splint, right Medium. To be worn nightly to prevent carpal tunnel symptoms. Dx: carpal tunnel right Cholecalciferol, Vitamin D3, 1,000 unit cap Take 1 capsule by mouth once daily. cyanocobalamin (VITAMIN B-12) 1,000 mcg Tab Take 1 tablet by mouth once daily. Dx: pernicious anemia Blood-Glucose Meter, Drum-type (ACCU-CHEK COMPACT PLUS CARE) Misc Kit 1 Each. Accu-Check Compact Plus Meter Diagnosis: Diabetes Mellitus ASPIRIN 81 MG TAB Take one (1) tablet daily . No current facility-administered medications on file prior to visit. Social History Social History Tobacco Use Smoking status: Former Packs/day: 1.00 Years: 21.00 Additional pack years: 0.00 Total pack years: 21.00 Types: Cigarettes Start date: 11/23/1952 Quit date: 09/19/1973 Years since quittin.2 Smokeless tobacco: Never Vaping Use Vaping Use: Never used Substance Use Topics Alcohol use: Yes Comment: occas glass of wine Drug use: No Review of Symptoms REVIEW OF SYSTEMS GENERAL: No weight loss, malaise or fevers RESPIRATORY: Negative for cough, hemoptysis, wheezing, COPD, dyspnea or shortness of breath CARDIOVASCULAR: Negative for chest pain, leg swelling, hypertension, CHF or palpitations GI: No nausea, vomiting, or diarrhea : No history of dysuria, frequency or incontinence SKIN: Negative for lesions, rash, and itching EXAM: BP 122/72 Pulse 91 Resp 16 Wt 68.5 kg (151 lb) SpO2 97% BMI 28.53 kg/m General Appearance: Well appearing, alert, in no acute distress, well-hydrated, well nourished.. Skin: Skin color, texture, turgor normal, no suspicious rashes or lesions. Lungs: Lungs clear to auscultation. No wheezing, rhonchi, rales.. Heart: RRR without murmur, gallop, or rubs. No ectopy. Abdomen: Normal abdominal exam, Abdomen soft, non-tender. Bowel sounds normal. No masses, organomegaly. Extremities: No deformities, edema, skin discoloration, clubbing or cyanosis. Good capillary refill. . Health Maintenance List Advance Directive Discussion due on 09/19/2023 Behavioral Health Screening Never done Dilated Retinal Exam due on 10/06/2023 DTaP,Tdap,Td Vaccine(2 - Tdap) due on 11/15/2024 RSV Vaccine(1 - 1-dose 60+ series) due on 11/15/2024 Shingrix Vaccine(2 of 2) due on 11/15/2024 Covid-19 Vaccine(2022- season) due on 11/15/2024 Diabetic Foot Exam due on 03/10/2024 HbA1C due on 06/20/2024 Urine Albumin:Creatinine Ratio due on 08/15/2024 LDL Cholesterol due on 12/19/2024 Bone Density Screening Completed Influenza Vaccine Completed Pneumococcal Vaccine: 65+ Completed Data reviewed Latest Ref Rng 12/20/2023 Protein, Total 6.3 - 8.0 g/dL 7.2 Albumin 3.9 - 4.9 g/dL 4.6 Calcium 8.5 - 10.2 mg/dL 10.1 Bilirubin, Total 0.2 - 1.3 mg/dL 0.3 Alkaline Phosphatase 34 - 123 U/L 73 AST 13 - 35 U/L 19 ALT 7 - 38 U/L 9 Glucose 74 - 99 mg/dL 128 (H) BUN 7 - 21 mg/dL 16 Creatinine 0.58 - 0.96 mg/dL 1.08 (H) Sodium 136 - 144 mmol/L 135 (L) Potassium 3.7 - 5.1 mmol/L 4.2 Chloride 97 - 105 mmol/L 102 CO2 22 - 30 mmol/L 24 Anion Gap 9 - 18 mmol/L 9 eGFR >=60 mL/min/1.73m 50 (L) Total Cholesterol, Nonfasting <200 mg/dL 142 Triglycerides, Nonfasting <150 mg/dL 163 (H) HDL Cholesterol, Nonfasting >39 mg/dL 52 LDL Cholesterol, Nonfasting <100 mg/dL 57 Non HDL Cholesterol, Nonfasting <130 mg/dL 90 VLDL Cholesterol, Nonfasting <30 mg/dL 33 (H) Total Chol/HDL Ratio, Nonfasting <5.10 mg/dL 2.73 LDL/HDL Ratio, Nonfasting <2.54 mg/dL 1.10 Hemoglobin A1C 4.3 - 5.6 % 6.5 (H) Estimated Average Glucose mg/dL 140 ASSESSMENT/PLAN: 1. DM type 2 with diabetic peripheral neuropathy (HCC) - ICD9: 250.60, 357.2, ICD10: E11.42 (primary diagnosis) Patient's hypoglycemia has improved with lower dose of her Lantus. Continue current dosage. Discussed healthy diet and exercise as able for weight loss. Red flags for re-assessment reviewed with patient in detail. 2. Hypoglycemia - ICD9: 251.2, ICD10: E16.2 See above. 3. Essential hypertension - ICD9: 401.9, ICD10: I10 - Controlled - Continue current medications - Recommend home blood pressure monitoring, to bring results to next visit - Encouraged sodium restriction, DASH or Mediterranean diet - Recommend regular aerobic exercise 4. Mixed hyperlipidemia - ICD9: 272.2, ICD10: E78.2 - Controlled - Continue current medications - Counseled on healthy diet and regular exercise 5. Stage 3b chronic kidney disease (HCC) - ICD9: 585.3, ICD10: N18.32 - eGFR: 50 Stable - Counseled on avoiding NSAIDs, adequate hydration - Counseled on low sodium diet 6. COVID-19 vaccine administered - ICD9: V04.89, ICD10: Z23 - PFIZER-BIONTECH COVID-19 VACCINE ( SEASON) AGE 12+ YR Maribel Fay MD documented in this encounterA[facility]04-01-2024 Miscellaneous Notes* Telephone Encounter - Duyen Bey LPN - 12/19/2023 12:07 PM EDT Honed patient and reviewed message/recommendations with her. Patient voiced understanding. * Telephone Encounter - Maribel Fay MD - 12/19/2023 11:02 AM EDT Reduce Lantus to 20 units. Bring all readings with her to appointment on 12/22. Call with sugars <80. * Telephone Encounter - Cheryl Billy RN - 12/19/2023 10:47 AM EDT Patient calls with updated blood sugar reading from the weekend. Patient's Lantus taken was 24 units. Tuesday- 80; half hour later 97 Tuesday- 111; Did not retake blood sugar Tuesday- 84; Ate Waffle with Peanut Butter and small glass of orange juice. Sugar level is now 130. Please review and advise, Cheryl Billy RN documented in this encounterA[facility]03-11-2024 Miscellaneous Notes* Telephone Encounter - Duyen Bey LPN - 11/28/2023 12:55 PM EDT Phoned patient and VM left advising Rxs sent to [facility] as requested. * Telephone Encounter - Gay Alonzo LPN - 11/28/2023 10:28 AM EDT Please review order placed. Patient has been identified by name and date of : Yes, Provider Sumeet Patient phones for refill(s): Requested Prescriptions Pending Prescriptions Disp Refills blood sugar diagnostic (TRUE METRIX GLUCOSE TEST STRIP) test strip 150 Strip 1 Sig: Test once daily DX:250.02 Insulin: Yes Lancets lancets 150 Each 1 Sig: Pt requests Truedraw lancets. Test blood sugar(s) 1 times daily. Dx: Other DM Code 250.02 Insulin: Yes Date of last office visit in primary care: 11/15/23 Date of next office visit in primary care: 02/14/24 Please advise. Thank you. Gay Alonzo LPN. * Telephone Encounter - Oneida Stern - 11/28/2023 10:05 AM EDT Charlette is calling Maribel Fay MD today to request a RX not on current med list: (Patient already has New meter and now needs new lancets and test strips) Patient now using new glucose meter TrueMetrix which will need new lancets (TRUEdraw) sent to her [facility] pharmacy , her other lancets sent in October 2023 do not fit that new meter. Will provider be able to also order the TrueMetrix test strips? Please order these with lancets with new test strips patient checks blood glucose once daily Patient has been identified by name and birthdate. Duration of symptoms: N/A Person calling: self Call patient at: at home [phone] (home) [phone] (cell) Oneida Federico Lee documented in this encounterAult[facility]02-27-[facility]24 Instructions* Patient Instructions* Maribel Fay MD - 11/15/2023 11:12 AM EST Take 32 units of lantus tonight. Stop your glipizide and you may resume 40 units of lantus tomorrow. Call with an update on your sugar readings in 1 week or call sooner with sugars less than 80. documented in this encounterAultman [facility]02-27-2024 History of Present illness Narrative* Maribel Fay MD - 11/15/2023 11:03 AM EST Chief Complaint Patient presents with: Follow Up: 3 month HPI Charlette Farmer is a 88 year old female who presents here today for Above Complaints. DIABETES MELLITUS: Ms. Farmer was last seen 3 months ago. Since our last visit she denies excessive thirst or increased frequency of urination, numbness, tingling or pain in extremities, and new or unusual visual symptoms. Patient admits to have low sugar/hypoglycemic reactions two or more times aweek with shaking and sweating. Follows a diabetic diet most of the time. She is compliant with medication(s) and is tolerating med(s) without any side effects. She reports checking her glucose on a once a day schedule with sugars in the fasting <100 range with multiple readings <70 since 11/02. This morning's reading was Patient's last HgA1C was Hemoglobin A1C (%) Date Value 08/15/2023 8.0 05/11/2023 8.2 11/03/2021 7.9 07/22/2021 7.8 ) Last Ophthalmology exam was less than 1 month ago. No retinopathy on 10/26/[address] Christensen. Last Podiatry exam was within the past 12 months Down 13 lbs in the last 2 months. States that this is intentional and she has been eating a healthier diet and exercising more with her physical therapy. Son in law is doing her grocery shopping now.States she would like to get down to 140 lbs. BP well controlled today on current regimen. Past medical history, appointments, medications, allergies reviewed. Previous Medical History PAST MEDICAL HISTORY Diagnosis Date Arthritis Benign neoplasm of colon Carpal tunnel syndrome, right Chronic kidney disease, stage 3 (HCC) Diverticulitis 10/10/2020 Diverticulosis of colon (without mention of hemorrhage) Gout History of transfusion Internal hemorrhoids without mention of complication Lumbago Malignant neoplasm of corpus uteri, except isthmus (HCC) 1996 Uterine cancer Other and unspecified hyperlipidemia PAD (peripheral artery disease) ([facility]) 2013 Mild LLE Pernicious anemia Restless leg syndrome Rotator cuff tendinitis left Trigger finger, right middle finger Seen by Dr. Burns 2015 Type II or unspecified type diabetes mellitus without mention of complication, uncontrolled Unspecified essential hypertension Previous Surgical History PAST SURGICAL HISTORY Procedure Laterality Date ABDOMINAL SURGERY HX APPENDECTOMY 1952 BACK SURGERY HX CHOLECYSTECTOMY 11/28/2011 COLONOSCOPY FLX DX W/COLLJ SPEC WHEN PFRMD 2001 out of state sigmoidoscopy COLONOSCOPY FLX DX W/COLLJ SPEC WHEN PFRMD 10/22/2013 Colonoscopy COLONOSCOPY GEN ANES 01/07/2021 Dr. Phillips, Polyps. repeat in 3 years. COLONOSCOPY W/BIOPSY SINGLE/MULTIPLE 11/12/2008 DILATION & CURETTAGE DX&/THER NONOBSTETRIC 1965 Dilation & curettage EGD 01/07/2021 EYE SURGERY HX LAMINECTOMY W/O FFD 1/2 VERT SEG LUMBAR 1971 Laminectomy, lumbar, fusion PAST SURGICAL HISTORY OF Left 09/01/2017 Trigger finger release of left ringer finger REVISE MEDIAN N/CARPAL TUNNEL SURG Right 05/31/2023 TONSILLECTOMY HX TUBAL LIGATION HX VAGINAL HYSTERECTOMY VAGINAL HYSTERECTOMY UTERUS 250 GM/< 1997 Hysterectomy, vaginal Family History FAMILY HISTORY Problem Relation Age of Onset Cancer Mother breast, lung cancer was heavy smoker Diabetes Maternal Grandmother Diabetes Maternal Grandfather other (no siblings) Maternal Grandfather Patient Allergies ALLERGIES Allergen Reactions Lipitor [Atorvastat* Intolerance myalgia Simvastatin Intolerance myalgia Current Medications Current Outpatient Medications on File Prior to Visit Medication Sig rosuvastatin (CRESTOR) 20 mg tablet Take 1 tablet by mouth daily at bedtime. insulin glargine (LANTUS SOLOSTAR U-100 INSULIN) 100 unit/mL (3 mL) Inject 40 Units subcutaneously daily at bedtime. Inject 42 units subcutaneously at bedtime Insulin Volborg, Disposable, (PEN NEEDLE) 29 gauge x 1/2 One needle once daily. Dx: 250.02 Insulin: yes hydroCHLOROthiazide 12.5 mg capsule Take 1 capsule by mouth once daily. Acetaminophen 500 mg cap Take 2 capsules by mouth two times a day as needed for pain. Reports will utilize 1 500mg tab 1-2 times in between the 1000 mg doses Miscellaneous Medical Supply (BLOOD PRESSURE CUFF) 1 Each once daily. ondansetron (ZOFRAN) 4 mg tablet Take 4 mg by mouth every 8 hours as needed for nausea/vomiting. meclizine (ANTIVERT) 25 mg tab Take 25 mg by mouth three times a day. cephALEXin (KEFLEX) 500 mg capsule Take 500 mg by mouth three times a day. blood sugar diagnostic (BLOOD GLUCOSE TEST) test strip Test blood sugar(s) 2 times daily. Dx: Type 2 DM - Controlled E11.9 Insulin: Yes pramipexole (MIRAPEX) 0.25 mg tablet Take 1 tablet by mouth daily at bedtime. allopurinol (ZYLOPRIM) 100 mg tablet Take 1 tablet by mouth two times a day. Lancets (ACCU-CHEK SOFTCLIX LANCETS) lancets Use Three times daily to check blood sugar lisinopril 2.5 mg tablet Take 1 tablet by mouth once daily. glipiZIDE (GLUCOTROL XL) 2.5 mg 24 hr tablet Take 1 tablet by mouth once daily. ammonium lactate (LAC-HYDRIN) 12 % lotion Apply 1 application to affected area as needed for Dry Skin. melatonin 3 mg Take by mouth daily at bedtime. COMPOUNDED PRESCRIPTION Cock up wrist splint, right Medium. To be worn nightly to prevent carpal tunnel symptoms. Dx: carpal tunnel right Cholecalciferol, Vitamin D3, 1,000 unit cap Take 1 capsule by mouth once daily. cyanocobalamin (VITAMIN B-12) 1,000 mcg Tab Take 1 tablet by mouth once daily. Dx: pernicious anemia Blood-Glucose Meter, Drum-type (ACCU-CHEK COMPACT PLUS CARE) Misc Kit 1 Each. Accu-Check Compact Plus Meter Diagnosis: Diabetes Mellitus ASPIRIN 81 MG TAB Take one (1) tablet daily . No current facility-administered medications on file prior to visit. Social History Social History Tobacco Use Smoking status: Former Packs/day: 1.00 Years: 21.00 Additional pack years: 0.00 Total pack years: 21.00 Types: Cigarettes Start date: 11/23/1952 Quit date: 09/19/1973 Years since quittin.1 Smokeless tobacco: Never Vaping Use Vaping Use: Never used Substance Use Topics Alcohol use: Yes Comment: occas glass of wine Drug use: No Review of Symptoms REVIEW OF SYSTEMS GENERAL: No weight loss, malaise or fevers RESPIRATORY: Negative for cough, hemoptysis, wheezing, COPD, dyspnea or shortness of breath CARDIOVASCULAR: Negative for chest pain, leg swelling, hypertension, CHF or palpitations GI: No nausea, vomiting, or diarrhea SKIN: Negative for lesions, rash, and itching EXAM: BP 104/74 Pulse 88 Resp 16 Wt 69.9 kg (154 lb 3.2 oz) SpO2 97% BMI 29.14 kg/m General Appearance: Well appearing, alert, in no acute distress, well-hydrated, well nourished.. Skin: Skin color, texture, turgor normal, no suspicious rashes or lesions. Lungs: Lungs clear to auscultation. No wheezing, rhonchi, rales.. Heart: RRR without murmur, gallop, or rubs. No ectopy. Abdomen: Normal abdominal exam, Abdomen soft, non-tender. Bowel sounds normal. No masses, organomegaly. Extremities: No deformities, edema, skin discoloration, clubbing or cyanosis. Good capillary refill. . Health Maintenance List RSV Vaccine(1 - 1-dose 60+ series) Never done DTaP,Tdap,Td Vaccine(2 - Tdap) due on 06/06/2018 Covid-19 Vaccine(2022- season) due on 09/01/2023 Advance Directive Discussion due on 09/19/2023 Depression Assessment Never done Shingrix Vaccine(2 of 2) due on 10/04/2023 Dilated Retinal Exam due on 10/06/2023 HbA1C due on 11/15/2023 LDL Cholesterol due on 11/09/2023 Diabetic Foot Exam due on 03/10/2024 Urine Albumin:Creatinine Ratio due on 08/15/2024 Bone Density Screening Completed Influenza Vaccine Completed Pneumococcal Vaccine: 65+ Completed Data reviewed Component Latest Ref Rng & Units 05/11/2023 08/15/2023 10/04/2023 Protein, Total 6.3 - 8.0 g/dL 7.1 7.0 7.5 Albumin 3.9 - 4.9 g/dL 4.9 4.5 4.7 Calcium 8.5 - 10.2 mg/dL 9.8 9.5 10.6 (H) Bilirubin, Total 0.2 - 1.3 mg/dL 0.4 0.3 0.2 Alkaline Phosphatase 34 - 123 U/L 68 69 69 AST 13 - 35 U/L 20 22 21 ALT 7 - 38 U/L 12 12 10 Glucose 74 - 99 mg/dL 138 (H) 106 (H) 138 (H) BUN 7 - 21 mg/dL 21 27 (H) 34 (H) Creatinine 0.58 - 0.96 mg/dL 1.17 (H) 1.37 (H) 1.37 (H) Sodium 136 - 144 mmol/L 137 138 138 Potassium 3.7 - 5.1 mmol/L 4.7 4.9 4.2 Chloride 97 - 105 mmol/L 99 103 101 CO2 22 - 30 mmol/L 21 (L) 23 24 Anion Gap 9 - 18 mmol/L 17 12 13 eGFR >=60 mL/min/1.73m 45 (L) 37 (L) 37 (L) Creatinine, Ur Random (UCRR) 20.0 - 300.0 mg/dL 63.9 Albumin, Urine Random mg/L 38.4 Albumin/Creat Ratio <30 mg/g 60 (H) Hemoglobin A1C 4.3 - 5.6 % 8.2 (H) 8.0 (H) Estimated Average Glucose mg/dL 189 183 Component Latest Ref Rng & Units 11/15/2023 Glucose, Point of Care 74 - 99 mg/dL 87 ASSESSMENT/PLAN: 1. DM type 2 with diabetic peripheral neuropathy (HCC) - ICD9: 250.60, 357.2, ICD10: E11.42 (primary diagnosis) - Improving control with hypoglycemia - Discontinue glipizide - Blood glucose monitoring on a twice daily schedule - Counseled on healthy diet and regular exercise - Discussed need for and benefit of weight loss. BMI 28.90 kg/(m^2) - Discussed diabetic education issues of diabetes complications and monitoring required, hypoglycemic/hyperglycemic symptoms, and medication-specific side effects and monitoring - Follow up in 3 months, sooner should any other issues arise. - HGB A1C - COMP METABOLIC PANEL - LIPID PANEL, NONFASTING - GLUCOSE, BLOOD (POC) - LANTUS SOLOSTAR U-100 INSULIN 100 UNIT/ML (3 ML) SUBCUTANEOUS PEN 2. Hypoglycemia - ICD9: 251.2, ICD10: E16.2 See above. 3. Essential hypertension - ICD9: 401.9, ICD10: I10 - Controlled - Continue current medications - Recommend home blood pressure monitoring, to bring results to next visit - Encouraged sodium restriction, DASH or Mediterranean diet - Recommend regular aerobic exercise - LISINOPRIL 2.5 MG TABLET 4. Mixed hyperlipidemia - ICD9: 272.2, ICD10: E78.2 - Control undetermined, due for labs - Continue current medications - Counseled on healthy diet and regular exercise 5. Stage 3b chronic kidney disease (HCC) - ICD9: 585.3, ICD10: N18.32 - Counseled on avoiding NSAIDs, adequate hydration - Counseled on low sodium diet - ACEi/ARB prescribed: Yes Maribel Fay MD documented in this encounterA[facility]02-20-2024 History of Present illness Narrative* Jhoan Proctor PT - 11/08/2023 10:56 AM EST Episode Visit Count: 4 Therapist That Will Accept/Oversee The Plan Of Care: Jhoan Proctor Start of Care Date: 10/17/23 Onset Date: 09/19/23 Plan of Care Certification Date: 10/17/23 Next Certification Due Date: 12/16/23 REHABILITATION AND SPORTS THERAPY PHYSICAL THERAPY TREATMENT NOTE ASSESSMENT: Charlette Farmer tolerated the session with decreased symptoms. She demonstrated improvements in hip pain and functional mobility tolerance. The patient will continue to benefit from ongoing skilled physical therapy to progress toward set goals. PLAN FOR NEXT VISIT: ID, falls screen if patient plans to keep coming SUBJECTIVE: Patient doing better with hip/groin pain, her transfers in and out of bed, and Pain: Pain Pain Level: 4 Pain Location: Hip - Left, Groin - Left Description: Sharp, Sore Frequency: Intermittent OBJECTIVE MEASURES WITH LEVEL OF FUNCTION: Pain to palpation L adductors and gluteals TREATMENT: Therapeutic Exercise: 1: Seated SciFit Stepper x 5 minutes, seat 9 (Discussed HEP, patients function, and progress towards therapy goals) 2: Heel slides 2x10 3: BKFO 2x10 in pain free range 4: Adduction squeeze x10, 3 sec holds Skilled Intervention: Patient was educated in proper exercise technique and purpose for exercises. Skilled judgment was used in selection of appropriate interventions. Correct performance of therapeutic exercises was facilitated with verbal, visual, and tactile cuing. Manual Therapy: 1: STM with foam roller over L posterior and lateral hip x 8 minutes with pt in R sidelying with pillow between knees 2: STM to L adductors with push to tolerance Skilled Intervention: Manual skills to improve joint mobility, ROM, and decrease pain. Utilized anatomy knowledge of the therapist, and assessment of patient's response to intervention. Billing Therapeutic Exercise Treatment Minutes: 25 Manual TherapyTreatment Minutes: 15 Skilled Treatment Time Minutes (timed and untimed codes): 40 Total Session Time (minutes): 40 Session Start Time : 1450 Session Stop Time : 1530 Jhoan Proctor PT documented in this encounterAultman [facility]02-12-2024 History of Present illness Narrative* Suzan Bowers, PT - 10/31/2023 2:56 PM EST Episode Visit Count: 3 Therapist That Will Accept/Oversee The Plan Of Care: Jhoan Proctor Start of Care Date: 10/17/23 Onset Date: 09/19/23 Plan of Care Certification Date: 10/17/23 Next Certification Due Date: 12/16/23 Patient Identified by Name and Date of : Yes REHABILITATION AND SPORTS THERAPY PHYSICAL THERAPY TREATMENT NOTE ASSESSMENT: Charlette Farmer tolerated the session with fatigue and expected muscle soreness. She demonstrated improvements in tolerance to heel slides without increase in knee pain. The patient will continue to benefit from ongoing skilled physical therapy to progress toward set goals. PLAN FOR NEXT VISIT: with nehemias Staples screen. Asses response to STM over L hip and continue with exercises as able. SUBJECTIVE: Pt reports that she is now taking Tylenol Arthritis and she is feeling better iwth it, can only take it for 10 days at a time. Currently taking 2 pills a day. Pain is not as intense as ithas been. Pain isstill waking her at night, thinks its more bed then the actual hip pain. Still struggling with stamina. Pt unable to don sock on LLE. Pain: Pain Pain Level: 6 Pain Location: Hip - Left, Groin - Left Description: Sharp Post Treatment Pain Post Treatment Symptoms: Pt state, I can feel it in my hip, but the massage felt good while it wasbeing done OBJECTIVE MEASURES WITH LEVEL OF FUNCTION: Unable to fully extend L knee in supine. TREATMENT: Therapeutic Exercise: 1: Seated SciFit Stepper x 5 minutes (1:1 throughout, discussed funtional limitations at home) 2: Heel slides 2x10 3: BKFO 2x10 in pain free range Skilled Intervention: Patient was educated in proper exercise technique and purpose for exercises. Skilled judgment was used in selection of appropriate interventions. Correct performance of therapeutic exercises was facilitated with verbal and visual cuing. Manual Therapy: 1: STM with foam roller over L posterior and lateral hip x 8 minutes with pt in R sidelying with pillow between knees (felt good) Skilled Intervention: Manual skills to improve joint mobility, ROM, and decrease pain. Utilized anatomy knowledge of the therapist, and assessment of patient's response to intervention. Self-Penitentiary Management: 1: Discussed use of sock-aid until pain is more manageable in the L hip. Skilled Intervention: Skilled judgment in the selection of proper modification for activity of daily living/home management based on clinical presentation, deficits, and needs. Billing Therapeutic Exercise Treatment Minutes: 27 Manual TherapyTreatment Minutes: 8 Self-Care/Home Management Treatment Minutes: 5 Skilled Treatment Time Minutes (timed and untimed codes): 40 Total Session Time (minutes): 40 Session Start Time : 1450 Session Stop Time : 1530 JA Moreno PT documented in this encounterAultman [facility]02-07-2024 Miscellaneous Notes* Telephone Encounter - Baylee Yost MA - 10/26/2023 12:46 PM EST Patient notified and verbalized understanding. Baylee Yost MA * Telephone Encounter - Maribel Fay MD - 10/26/2023 12:29 PM EST Yes * Telephone Encounter - Paris Umanzor RN - 10/26/2023 12:09 PM EST Pt called and is notified of providers results and instructions. Pt voices understanding. Pt wantedto make sure provider was talking about her using the Tylenol Arthritis. Please call and advise. Paris Umanzor RN * Telephone Encounter - Maribel Fay MD - 10/26/2023 11:57 AM EST Reduce her long acting insulin to 40 units and call if she continues to get sugars <80. Refill sent as requested. Can use tylenol as directed on packaging for pain. * Telephone Encounter - Nataliia Burnham RN - 10/26/2023 10:11 AM EST Patient calling with the following: Reports she has made diet changes and has been eating more properly and for the last week her morning fasting blood sugars have been lower-in the 70's. Reports this morning her fasting blood sugar was 66. Has been feeling a bit more shakier at times. Patient takes Lantus 42 units every evening and glipizide 2.5 mg daily in the morning. Pt asking if Dr. Fay thinks she should decrease her Lantus? Please advise. Reports she is seeing PT per recommendation of Dr. Henderson for left leg issues. Reports having left groin discomfort and has been using ES Tylenol with little effect. Pt asking Dr. Fay if ok to useTylenol Arthritis? Requesting refill of rosuvastatin as pended. Thank you. documented in this encounterAultman [facility]02-06-2024 History of Present illness Narrative* Jhoan Proctor, PT - 10/25/2023 2:03 PM EST Episode Visit Count: 2 Therapist That Will Accept/Oversee The Plan Of Care: Jhoan Proctor Start of Care Date: 10/17/23 Onset Date: 09/19/23 Plan of Care Certification Date: 10/17/23 Next Certification Due Date: 12/16/23 Patient Identified by Name and Date of : Yes REHABILITATION AND SPORTS THERAPY PHYSICAL THERAPY TREATMENT NOTE ASSESSMENT: Charlette Silverman Marleny tolerated the session with decreased activity tolerance due to pain in L hip, fatigue, and expected muscle soreness. She demonstrated difficulty with heel slides due to increased pain in L hip and knee. The patient will continue to benefit from ongoing skilled physicaltherapy to progress toward set goals. PLAN FOR NEXT VISIT: Consider trying STM to L hip SUBJECTIVE: Pt reports that her L hip is not feeling good. Pt reports that she did not do her exercises yesterday due to increased L hip pain yesterday. Pt states she tries to do exercises before bedotherwise she will be wiped out for the day. Pt states that the exercise helps temporarily. She is only getting a few hours of sleep per night due to hip pain waking her and not being able to go backto sleep. Pain: Pain Pain Level: 9 Pain Location: Hip - Left Description: Sharp (nagging) Post Treatment Pain Post Treatment Pain Level: No Change OBJECTIVE MEASURES WITH LEVEL OF FUNCTION: Unable to fully extend L knee in supine TREATMENT: Therapeutic Exercise: 1: Seated SciFit Stepper x 5 minutes (1:1 throughout, discussed funtional limitations at home) 2: Heel slides 1x6 (Started to increase pain in L knee) 3: Adduction squeeze with pillow 3x10, 2-3 sec holds 4: BKFO 3x10 in pain free range 5: Attempted hip flexor stretch off edge of table with therapist holding LE, increased pain in L groin area. Skilled Intervention: Patient was educated in proper exercise technique and purpose for exercises. Skilled judgment was used in selection of appropriate interventions. Correct performance of therapeutic exercises was facilitated with verbal and visual cuing. Billing Therapeutic Exercise Treatment Minutes: 38 Skilled Treatment Time Minutes (timed and untimed codes): 38 Total Session Time (minutes): 38 Session Start Time : 1400 Session Stop Time : 1438 JA Moreno PT documented in this encounterAultman [facility]02-05-2024 Miscellaneous Notes* Telephone Encounter - Preeti Hunter - 10/24/2023 1:25 PM EST Patient is scheduled for PT. * Telephone Encounter - Preeti Hunter - 10/21/2023 9:28 AM EST Received authorization today for additional PT visits. Sent a MC message to the patient letting them know we can now schedule. * Telephone Encounter - Preeti Hunter - 10/20/2023 5:27 PM EST I canceled the PT appointment that was incorrectly scheduled for 10/24/23. I sent the patienta detailed MC message advising that her insurance company requires prior authorization for therapy services. Once we receive the approval, our office will contact her to schedule. * Telephone Encounter - Preeti Hunter - 10/20/2023 3:02 PM EST We do not have authorization for PT, at this time. We cannot see patient until prior authorization is obtained. Upcoming appointment needs to be cancelled. * Telephone Encounter - Preeti Hunter - 10/19/2023 11:48 AM EST We are currently waiting for prior authorization to schedule additional PT visits. We do not have the benefit information, at this time. * Telephone Encounter - Duyen Jacobson - 10/19/2023 9:42 AM EST Patient called said she had her first Physical Therapy appointment on 10/17 with Maximino Proctor, she wanted to know if her insurance is going to pay for her PT visits and if so how many,patient can be reached at [phone] Please advise documented in this encounterAultman [facility]02-01-2024 History of Present illness Narrative* Jhoan Proctor, PT - 10/20/2023 10:18 AM EST Episode Visit Count: 1 Therapist That Will Accept/Oversee The Plan Of Care: Jhoan Proctor Start of Care Date: 10/17/23 Onset Date: 09/19/23 Plan of Care Certification Date: 10/17/23 Next Certification Due Date: 12/16/23 Patient Identified by Name and Date of : Yes REHABILITATION AND SPORTS THERAPY PHYSICAL THERAPY EVALUATION PLAN OF CARE: Assessment: Charlette Farmer presents with chief complaint of L hip pain that interferes with rising from a chair, standing, walking, bending, sleeping . She presents with impairments in ADL's, independence in exercise, overall function, range of motion, strength, and symptom management. Patient did not complete the PROMIS (Patient Reported Outcome Measures Information System). Prognosis for therapy is Fair due to: clinical presentation, multiple co- morbidities, advanced age, limited support system, limited tolerance to activity . She will benefit from skilled therapy services to meet the goals established for this plan of care as noted below. Assessment Fall Risk : Complex at risk (based on fall history with injury, unable to get to fall screen due totime constraints today) Goals for Episode of Care: created on 10/17/23 through 12/19/23 [place] in home exercise program. Patient will decrease pain rating by 2 points to meet minimal clinical important difference for numeric pain rating scale. Patient will increase passive ROM of L hip to minimal limitations to allow pt to to improve performance of ADLs and to improve gait mechanics / gait pattern . Patient will demonstrate increase in LLE strength to 4/5 during manual muscle testing in order to improve function for basic self-care tasks, home management tasks, and light functional tasks. Perform sleeping, bed mobility, and self care with decreased report of symptoms/pain in 8 weeks. Planned Interventions, Frequency, and Duration: Current Frequency: 1x/week Duration: 8 weeks Total Number of Visits Planned: 8 Planned Treatment Interventions: Therapeutic exercise (15311), Neuromuscular re- education (32975), Manual therapy (55332), Therapeutic activities (90112), Self- prison management (04163), Gait Training (28013), Patient/Family/Caregiver Education, Body Mechanics Training PLAN FOR NEXT VISIT: With Jhoan, fall screen, otherwise continue gentle stretching and exercises. May try SciFit Patient demonstrates good understanding of plan of care and treatment. The above goals and plan of care were discussed and agreed upon by patient/family. SUBJECTIVE: L hip pain starting around the new year after she had received home PT for a fall. No injury sustained from the fall, the pain started after she was doing her home PT exercises. Specifically marchingand abducting the hip causes the most issues. Patient notes bending, walking seem to bother the most, and bed transfers are very painful, specifically swinging her leg to get into bed, and then is very uncomfortable trying to sleep. She is a side sleeper, and sleeping on the L side hurts the most. Taking extra strength tylenol, but this barely takes the edge off. Functional Limitations: rising from a chair, standing, walking, bending, sleeping Prior Level of Function: Independent without limitations Intake Information: Prescription present Falls History # of falls in past year: 1 # of falls resulting in an injury in past year: 0 Pain: Pain Pain Level: 8 (10/10 at worse) Pain Location: Hip - Left Description: Stabbing, Sharp, Aching, Sore PROMIS Scales T-scores: mean of general population = 50. 5 points is clinically meaningfully difference Percentiles provide an indication of how the patient's score ranks in relation to the general population. Higher percentile rankings indicate better function/quality of life. 50th percentile is the average of the general population and indicates half of respondents had a worse score. OBJECTIVE MEASURES WITH LEVEL OF FUNCTION: LE AROM R LE AROM: WNL L LE AROM: Major limitations in hip flexion and abduction LE PROM L LE PROM : Moderate to major limitations in flexion, IR, abduction, and adduction LE Strength Trunk Strength: 3/5 R LE Strength: 4/5 L LE Strength: 4-/5 Special Tests - Hip and Spine Hip and Spine Special Tests: FADDIR Test, Scour Test FADDIR Test: Left Positive Scour Test: Left Positive Education: Education Learning/educational needs: Home exercise program, Plan of Care, Changes in Plan of Care, Gait Training, Body Mechanics TREATMENT: PT Treatment Interventions: Therapeutic Exercise Evaluation Therapeutic Exercise: 1: *BKFO 3x10 in pain free range 2: *Heel slides 3x10 in pain free range 3: *Adduction squeeze with pillow 3x10, 2-3 sec holds Skilled Intervention: Patient was educated in proper exercise technique and purpose for exercises. Skilled judgment was used in selection of appropriate interventions. Provided written instruction for home exercise program to facilitate proper performance and compliance. Correct performance of therapeutic exercises was facilitated with verbal, visual, and tactile cuing. Billing * Evaluation Low Complexity: 1 Unit Therapeutic Exercise Treatment Minutes: 10 Skilled Treatment Time Minutes (timed and untimed codes): 34 Total Session Time (minutes): 34 Session Start Time : 1410 Session Stop Time : 1444 Jhoan Proctor PT * Jhoan Proctor PT - 10/17/2023 2:43 PM EST Program_ID:[id number] Access Code: [email or web address] URL: [email or web address] Date: 10-17-2023 Prepared By: Jhoan Proctor Program Notes Exercises - Bent Knee Fallouts - 1 x daily - 7 x weekly - 3 sets - 10 reps - Supine Heel Slide - 1 x daily - 7 x weekly - 3 sets - 10 reps - Seated Hip Adduction Squeeze with Ball - 1 x daily - 7 x weekly - 3 sets - 10 [facility] Hospital Discharge instructions Additional Instructions Continue to take cephalexin 500 mg twice a day for 5 more days Date of Discharge: 09/04/23[facility] Work Phone: 1(960) 876-274412-16-2023 Progress note Author [facility] September 03, 2023 2:52pm Note Date/Time September 03, 2023 2:45pm [facility] Medical Records Department [address] [place] [address] Progress Note 09/03/23 1441 MR#: [id number] Acct: [id number] Name: CHARLETTE FARMER Rep #:[id number] : 1935 88 From: Lisy Lr MD PCP: Dr. Maik Fay MD Status :ADM FERNANDO Location: [place] [address] Subjective Subjective Patient seen and examined. She had no active complaints. She was admitted through the ED with a complaint of mechanical fall. She tripped over her [employer] tree and fell and hit her head. She denied any lightheadedness or dizziness. Review of systems otherwise negative. She has remained hemodynamically stable. Objective Data Objective Data Vital Signs: Vital Signs Temp Pulse Resp BP Pulse Ox O2 Del Method 98.5 F 60 16 122/47 H 99 Room Air 09/03/23 08:14 09/03/23 08:14 09/03/23 08:14 09/03/23 08:14 09/03/23 08:14 09/03/23 08:14 Oxygen Delivery Method Room Air Weight: 166 lb Body Mass Index (BMI) 31.4 Intake & Output: Intake and Output for Last 24 Hours 09/01/23 09/02/23 09/03/23 23:59 23:59 23:59 Intake Total 500 / 500 Balance 500 / 500 Lab / Micro Data 09/03/23 02:06 09/03/23 02:06 Labs: Laboratory Results - last 24 hr 09/03/23 02:06: WBC 7.0, RBC 3.53 L, Hgb 11.2 L, Hct 34.0 L, MCV 96.3, MCH 31.7,MCHC 32.9, RDW Std Deviation 51.2 H, RDW Coeff of Luciano 14.6, Plt Count 196, MPV 10.0, Immature Gran % (Auto) 0.300, Neut % (Auto) 61.9, Lymph % (Auto) 26.3, [place] % (Auto) 8.6, Eos % (Auto) 2.2, Baso % (Auto) 0.7, Absolute Neuts (auto) 4.3, Absolute Lymphs (auto) 1.83, Nucleated RBC % 0, Sodium 136, Potassium 4.2, Chloride 105, Carbon Dioxide 27.0, Anion Gap 4 L, BUN 29 H, Creatinine 1.44 H, Estim Creat Clear Calc 20.38, Est GFR (MDRD) Af Amer 44 L, Est GFR (MDRD) Non-Af37 L, BUN/Creatinine Ratio 20.1 H, Glucose 203 H, Calcium 9.1, Troponin I High Sens 8, B-Natriuretic Peptide 90.1 09/03/23 08:31: Troponin I High Sens 8 09/03/23 09:02: POC Glucose 135 H 09/03/23 09:54: Troponin I High Sens 7 09/03/23 11:54: POC Glucose 187 H Radiography Diagnostic Testing: Radiology Impression Brain CT 09/03/23 01:48 IMPRESSION: undefined Cervical Spine CT 09/03/23 01:48 IMPRESSION: undefined Chest X-Ray 09/03/23 02:24 IMPRESSION: No acute pulmonary disease. Electronically Signed: Jose Ivory MD at 3:55 EST , Physical Exam Const alert, oriented x3 and no apparent distress General Appearance: cooperative HEENT normocephalic, head/scalp atraumatic, moist oral mucous membranes and oropharynxnormal Eyes PERRL and EOMs intact bilaterally Neck no lymphadenopathy and supple Lymph Lymphatic: no lymphadenopathy noted and no lymphedema noted Resp normal respiratory effort, normal air movement and clear to auscultation bilaterally Cardio regular rate, regular rhythm, S1 normal heart sound, S2 normal heart sound and no murmurs GI normal to inspection, nondistended, normoactive bowel sounds, soft to palpation,non-tender and non-distended Extremity normal capillary refill, no clubbing, cyanosis or edema and no calf tenderness General Extremity: no tenderness to palpation of joints or extremities Skin General Skin Exam: no breakdown Wound Narrative: Head wrapped in bandage Neuro CN's II-XII intact bilaterally, no focal motor deficits, no sensory deficits noted and deep tendon reflexes 2+ bilaterally Motor Exam: strength 5/5 throughout and general weakness Psych Appearance: appropriate Assessment & Plan Assessment/Plan (1) Vertigo: PLAN: Plan #Scalp laceration due to mechanical fall * Patient states she tripped over [employer] and fell. She had been seen in the ED the day before for near syncope with lightheadedness and dizziness. However she states that this time that she felt she felt only because she tripped. She denied any antecedent lightheadedness, dizziness or vertigo. * CT of the brain showed no acute intracranial pathology. CT of the cervical spine also showed no acute findings. * PT OT on board. Fall precautions. * Gentle hydration with IV fluids. * #Near syncope with vertigo * She has a history of BPPV. However she insist that this recent fall which resulted in the scalp laceration did not involve her feeling lightheaded or dizzy. She had been seen in the ED the day before for similar symptoms though. * PT OT on board. On meclizine. * fall precautions * # UTI: Recently diagnosed. On Keflex. To complete course. Urine cultures pending. #Hypertension: BP held as blood pressure was running low in the ED. #Hyperlipidemia: On statin #Type 2 diabetes mellitus: On Lantus. Insulin sliding scale. Accu-Cheks ACHS. #Restless leg syndrome: On pramipexole #CKD stage IIIb: Creatinine is 1.44 with a baseline of around 1.3. Monitor. DVT prophylaxis: SCDs. Charges/Coding Visit Charges Inpatient E&M: 41209 Subs Hosp L2 09/03/23 1452 <Electronically signed by Lisy Lr MD> Lisy Lr MD Cosigner Signature (if applicable): CC: ~ Signed [facility] Work Phone: 1(959) 621-780512-16-2023 History and physical note Author Kaia Mcclain [facility] September 03, 2023 6:04am Note Date/Time September 03, 2023 5:17am [facility] Medical Records Department [address] [place] [address] H&P Exam - Hospitalist 09/03/23 0515 MR#: [id number] Acct: [id number] Name: CHARLETTE FARMER Rep #:[id number] : 1935 88 From: Kaia Mcclain MD PCP: Dr. Maik Fay MD Status :ADM FERNANDO Location: [place] [address] HPI - General General Date of Admission: 09/03/23 Date of Service: 09/03/23 Chief Complaint: Vertigo, falls. HPI Narrative The patient is an 88 y/o F w/ PMHx: CKD stage IV per chart report however per GFR trending consisent with CKD stage III unclear subtype, Obesity, Diabetes mellitus type II, HTN, HLD, GERD, RLS, Chronic anemia, BPPV who re-presents to the [facility] ED on 09/03/2023 with history of lightheadedness, dizziness and fall unfortunately hitting her head on a dresser with additional history of similar symptoms with fall earlier in the day prior while attempting to unplug a counterheight [place] tree with significant laceration to her head with bleeding associated seen earlier in the day the day prior for similar symptoms with history of vertigo with at that time a notable Twin-Hallpike maneuver positive with right beating horizontal nystagmus and urinalysis with concern for possibleUTI discharged on Keflex with unremarkable CT head at that time unremarkable andEKG with no acute evidence of ischemia. Patient did report some neck discomfortfollowing this most recent fall. Workup in the ED included T96.9, heart rate 56, BP initially 99/42 with most recent repeat 123/46, respiratory rate 18, 99% on room air, CBC with WBC 7.0, hemoglobin 11.2, MCV 96.3, platelet 186 without marked shift, BMP with BUN/creatinine 29/1.44, glucose 203, troponin 8, BNP 90.1, chest x-ray no acute cardiopulmonary findings, CT brain no acute intracranial findings, CT cervical spine with no acute findings, EKG with no acute evidence of ischemia with sinus rhythm. In the ED patient administered normal saline bolus as well as meclizine 25 mg p.o. x 1. In the ED following administration of meclizine patient did improve and was even able to walk to [facility] with assistance. [facility] Medical History (Updated 09/03/23 @ 06:[address] Kaia Mcclain MD) Cervical cancer CKD (chronic kidney disease), stage III Diverticular hemorrhage DM II (diabetes mellitus, type II), controlled Dyslipidemia Former tobacco use HTN (hypertension) Obesity Vertigo Home Medications glipizide 5 mg tablet, extended release 24 hr 5 mg PO DAILY DM 02/24/17 [History Last Taken 10/09/20] lisinopril 2.5 mg tablet 2.5 mg PO DAILY hypertension 02/24/17 [History Last Taken 10/09/20] metoprolol tartrate 25 mg tablet 25 mg PO BID HTN 02/24/17 [History Last Taken 10/09/20] pramipexole 0.25 mg tablet 0.25 mg PO QHS restless legs 02/24/17 [History Last Taken 10/08/20] acetaminophen 500 mg tablet 500 mg PO BID pain 10/10/20 [History Last Taken 10/09/20] allopurinol 100 mg tablet 100 mg PO BIDCM gout 10/10/20 [History Last Taken 10/09/20] aspirin 81 mg chewable tablet 81 mg PO QHS heart health 10/10/20 [History Last Taken 10/08/20] cholecalciferol (vitamin D3) 10 mcg (400 unit) tablet 10 mcg PO DAILY supplment 10/10/20 [History Last Taken 10/09/20] cyanocobalamin (vitamin B-12) 1,000 mcg capsule 1,000 mcg PO DAILY supplement 10/10/20 [History Last Taken 10/09/20] insulin glargine 100 unit/mL (3 mL) subcutaneous pen 42 units SQ QHS diabetes 10/10/20 [History Last Taken 10/08/20] cephalexin 500 mg capsule 500 mg PO TID 7 days #21 caps 09/02/23 [Rx Last Taken Unknown] meclizine 25 mg tablet 25 mg PO 4X/DAY PRN PRN Dizziness #20 tabs 09/02/23 [Rx Last Taken Unknown] glipizide 2.5 mg tablet, extended release 24 hr 2.5 mg PO DAILY diabetes 09/03/23 [History Last Taken Unknown] melatonin 5 mg capsule 5 mg PO QHS 09/03/23 [History Last Taken Unknown] rosuvastatin 20 mg tablet 20 mg PO QHS cholesterol 09/03/23 [History Last Taken Unknown] spironolactone 25 mg-hydrochlorothiazide 25 mg tablet 0.5 tab PO DAILY 09/03/23 [History Last Taken Unknown] Allergy/AdvReac Type Severity Reaction Status Date / Time No Known Allergies Allergy Verified 09/03/23 01:34 Family History (Updated 09/03/23 @ 06:[address] Kaia Mcclain MD) Mother Lung cancer COPD (chronic obstructive pulmonary disease) Father Alcoholism CAD (coronary artery disease) Heart disease Hypertension Myocardial infarction age 43 secondary to [place]. Surgical History (Updated 09/03/23 @ 05:[address] Kaia Mcclain MD) History of carpal tunnel surgery of right wrist History of hysterectomy History of tonsillectomy and adenoidectomy Hx of cholecystectomy Hx of dilation and curettage S/P appendectomy Social History (Updated 09/03/23 @ 06:[address] Kaia Mcclain MD) household members: none Smoking Status: Former smoker how long ago did patient quit smoking: Smoked 1 pack/day x 20 years, quit 1973. alcohol intake: current alcohol intake frequency: holidays/special occasions only substance use type: does not use ROS ROS Narrative Admission Review of Systems: CONSTITUTIONAL: No weight loss, fever, chills, + weakness or fatigue. HEENT: + Lightheadedness, dizziness, vertiginous sensation. Eyes: No visual loss, blurred vision, double vision or yellow sclerae. Ears, Nose, Throat: No hearing loss, sneezing, congestion, runny nose or sore throat. SKIN: No rash or itching, lesions, wounds. CARDIOVASCULAR: No chest pain, chest pressure or chest discomfort, palpitations,edema, orthopnea, syncopal events. RESPIRATORY: No shortness of breath, cough or sputum, wheezing, hemoptysis. GASTROINTESTINAL: + anorexia, nausea. No vomiting or diarrhea, abdominal pain, melena, BRBPR. GENITOURINARY: No dysuria, frequency, urgency or retention. NEUROLOGICAL: + Lightheadedness, dizziness, vertiginous sensation, near syncope. No headache, paralysis, ataxia, numbness or tingling in the extremities, focal weakness, change in bowel or bladder control, seizure. MUSCULOSKELETAL: + muscle, back pain, joint pain or stiffness. HEMATOLOGIC: + anemia, easy bleeding/bruising. LYMPHATICS: No enlarged nodes. No history of splenectomy. PSYCHIATRIC: No history of depression or anxiety. ENDOCRINOLOGIC: No reports of sweating, cold or heat intolerance. No polyuria orpolydipsia. ALLERGIES: No history of asthma, hives, eczema or rhinitis. Vital Signs Vital Signs Vital Signs: 09/03/23 01:28 09/03/23 01:34 09/03/23 01:37 Temperature 96.9 F L Temperature Source Temporal Pulse Rate 56 L 58 L Respiratory Rate 13 16 Respiratory Effort Normal Respiratory Depth Normal Respiratory Pattern Normal Blood Pressure 99/42 L 96/39 L Blood Pressure Mean 61 58 Pulse Ox 97 98 Oxygen Delivery Method Room Air Room Air Room Air 09/03/23 01:49 09/03/23 02:56 09/03/23 03:00 Temperature Temperature Source Pulse Rate 59 L 57 L 61 Respiratory Rate 18 14 24 H Respiratory Effort Respiratory Depth Respiratory Pattern Blood Pressure 123/46 H 111/65 Blood Pressure Mean 71 80 Pulse Ox 99 97 100 Oxygen Delivery Method Room Air 09/03/23 03:10 09/03/23 03:20 Temperature Temperature Source Pulse Rate 59 L 50 L Respiratory Rate 24 H 19 H Respiratory Effort Respiratory Depth Respiratory Pattern Blood Pressure Blood Pressure Mean Pulse Ox 98 98 Oxygen Delivery Method Room Air Weight Weight: 167 lb 4.8 oz Body Mass Index (BMI) 31.6 Physical Exam Narrative Physical Examination: General: Awake, alert, oriented x 3 and cooperative, seated upright in the ED bed, fatigued but notes feeling improved, does admit that she went to the bathroom with assistance and vertiginous symptoms were significantly improved, resolving. Skin: Normal color, normal turgor, no icterus, no cyanosis except for occasionalstaged ecchymoses, bandaging to the head status post fall with laceration with bleeding controlled. HEENT: See skin/NC, EOMI, PERRLA, dry MM, no carotid bruits or JVD noted. Lungs: Diminished, greater bases, proper effort, no rales, ronchi or wheezing. Heart: Mildly bradycardic with regular rhythm; no gallop, rub audible. Abdomen: Soft, obese, NTTP, ND, mildly hyperactive BS, no HSM. Extremities: No cyanosis, no clubbing, mild ankle peripheral edema. Neurological: Patient awake, alert, oriented as noted, cognitive function intact; pupils equally reactive to light and accommodation, cranial nerves II-XII grossly normal, moving all 4 extremities, no focal deficits, no reproduciblenystagmus at this time, patient notes she is feeling improved, strength improving, moderately to severely globally decreased secondary to acute presentation. Psychiatric: Affect appears fatigued, no acute evidence of depressive or anxietyfeelings. Results Lab / Micro Data 09/03/23 02:06 09/03/23 02:06 Labs: Laboratory Results - last 24 hr 09/03/23 02:06: WBC 7.0, RBC 3.53 L, Hgb 11.2 L, Hct 34.0 L, MCV 96.3, MCH 31.7,MCHC 32.9, RDW Std Deviation 51.2 H, RDW Coeff of Luciano 14.6, Plt Count 196, MPV 10.0, Immature Gran % (Auto) 0.300, Neut % (Auto) 61.9, Lymph % (Auto) 26.3, [place] % (Auto) 8.6, Eos % (Auto) 2.2, Baso % (Auto) 0.7, Absolute Neuts (auto) 4.3, Absolute Lymphs (auto) 1.83, Nucleated RBC % 0, Sodium 136, Potassium 4.2, Chloride 105, Carbon Dioxide 27.0, Anion Gap 4 L, BUN 29 H, Creatinine 1.44 H, Estim Creat Clear Calc 20.38, Est GFR (MDRD) Af Amer 44 L, Est GFR (MDRD) Non-Af37 L, BUN/Creatinine Ratio 20.1 H, Glucose 203 H, Calcium 9.1, Troponin I High Sens 8, B-Natriuretic Peptide 90.1 Imagaing Rad[address] CT 09/03/23 01:48 IMPRESSION: undefined Cervical Spine CT 09/03/23 01:48 IMPRESSION: undefined Chest X-Ray 09/03/23 02:24 IMPRESSION: No acute pulmonary disease. Electronically Signed: Jose Ivory MD at 3:55 EST , Assessment & Plan Assessment/Plan (1) Vertigo: PLAN: Plan The patient is an 88 y/o F w/ PMHx: CKD stage IV per chart report however per GFR trending consisent with CKD stage III unclear subtype, Obesity, Diabetes mellitus type II, HTN, HLD, GERD, RLS, Chronic anemia, BPPV who re-presents to the [facility] ED on 09/03/2023 with history of lightheadedness, dizziness and fall unfortunately hitting her head on a dresser with additional history of similar symptoms with fall earlier in the day prior while attempting to unplug a counterheight [employer] tree with significant laceration to her head with bleeding associated seen earlier in the day the day prior for similar symptoms with history of vertigo with at that time a notable [place]-Hallpike maneuver positive with right beating horizontal nystagmus and urinalysis with concern for possibleUTI discharged on Keflex with unremarkable CT head at that time unremarkable andEKG with no acute evidence of ischemia. Patient did report some neck discomfortfollowing this most recent fall. #1. Near syncope with lightheadedness, dizziness, vertigo, recurrent with history of BPPV with mechanical fall with head trauma: EKG in ED w/ sinus rhythmwithout evidence of acute ischemia, chest x-ray no acute cardiopulmonary, CT head no acute intracranial findings, CT cervical spine no acute findings, initial trop normal. Will admit to PCU, place on a monitored bed to assure no acute myocardial infarction with serial cardiac enzymes and EKGs. Will maintain on fall precautions, obtain admission orthostatic, continue judicious hydration,continue treatment with scheduled meclizine given improvement, PRN zofran, IVFs. If interventions do not assist may need to consider follow-up MRI of the brain to assure no posterior stroke. PT/OT consultation to ascertain stability and discharge needs. #2. Recent Acute complicated urinary tract infection: Will continue patient recently initiated Keflex regimen with pending urine culture for speciation and sensitivity. #3. Chronic normocytic anemia: Admission hemoglobin 11.2, MCV 96.3, baseline hemoglobin 10-11, stable, continue to trend. #4. Hypertension: Given low normal BP in the ED will temporally hold hypertensive regimen, add back once appropriate, PRN hydralazine. #5. Hyperlipidemia: We will continue patient on statin therapy. #6. Diabetes mellitus type II: Hold oral home regimen, continue home insulin regimen, ADA diet, accu checks w/ ISS. #7. Restless leg syndrome: We will continue patient on pramipexole regimen. #8. Obesity: Weight loss and lifestyle changes encouraged. #9. CKD stage IV per chart report however per GFR trending consisent with CKD stage III unclear subtype: Admission BUN/Cr 29/1.44, baseline renal function 1.2-1.5, repeat BMP in AM. #10. DVT prophylaxis: SCDs, hold chemoprophylaxis given recent fall with laceration. #11. CODE status: Patient CLAUDETTE is her daughter and living will is currently inplace. Discussed CODE status at length including difference between FULL code, DNR-CCA and DNR-CC status. Following discussions about the differences in these status, requested Full Code status. Advanced Care Planning Face to Face Time: 16minutes. Charges/Coding Visit Charges Inpatient E&M: 16344 Init Hosp L3 Procedures Hospitalists Procedures: 60460 Advncd Care Plan 30 Min 09/03/23 0604 <Electronically signed by Kaia Mcclain MD> Cosigner Signature (if applicable): CC: Dr. Kaia Mcclain MD; Dr. Maik Fay MD~ Signed [facility] Work Phone: 1(617) 940-436812-16-2023 Discharge summary Author [facility] 03, 2023 5:40am Note Date/Time September 03, 2023 1:37am [facility] Medical Records Department [address] [place] [id number] Emergency Department Summary 09/03/23 MR#: [id number] Acct: [id number] Name: CHARLETTE FARMER Rep #:[id number] : 1935 [id number] From: Tristan Alvarez PCP: Dr. Maik Fay MD Status :ADM FERNANDO Location: [address] History of Present Illness Chief Complaint: Fall PFSH [facility] Medical History (Updated 09/03/23 @ 02:[address] Kaia Mcclain MD) Cervical cancer CKD (chronic kidney disease), stage III Diverticular hemorrhage DM II (diabetes mellitus, type II), controlled Dyslipidemia Former tobacco use HTN (hypertension) Obesity Vertigo Home Medications glipizide 5 mg tablet, extended release 24 hr 5 mg PO DAILY DM 02/24/17 [History Last Taken 10/09/20] lisinopril 2.5 mg tablet 2.5 mg PO DAILY hypertension 02/24/17 [History Last Taken 10/09/20] metoprolol tartrate 25 mg tablet 25 mg PO BID HTN 02/24/17 [History Last Taken 10/09/20] pramipexole 0.25 mg tablet 0.25 mg PO QHS restless legs 02/24/17 [History Last Taken 10/08/20] acetaminophen 500 mg tablet 500 mg PO BID pain 10/10/20 [History Last Taken 10/09/20] allopurinol 100 mg tablet 100 mg PO BIDCM gout 10/10/20 [History Last Taken 10/09/20] aspirin 81 mg chewable tablet 81 mg PO QHS heart health 10/10/20 [History Last Taken 10/08/20] cholecalciferol (vitamin D3) 10 mcg (400 unit) tablet 10 mcg PO DAILY supplment 10/10/20 [History Last Taken 10/09/20] cyanocobalamin (vitamin B-12) 1,000 mcg capsule 1,000 mcg PO DAILY supplement 10/10/20 [History Last Taken 10/09/20] insulin glargine 100 unit/mL (3 mL) subcutaneous pen 42 units SQ QHS diabetes 10/10/20 [History Last Taken 10/08/20] cephalexin 500 mg capsule 500 mg PO TID 7 days #21 caps 09/02/23 [Rx Last Taken Unknown] meclizine 25 mg tablet 25 mg PO 4X/DAY PRN PRN Dizziness #20 tabs 09/02/23 [Rx Last Taken Unknown] glipizide 2.5 mg tablet, extended release 24 hr 2.5 mg PO DAILY diabetes 09/03/23 [History Last Taken Unknown] melatonin 5 mg capsule 5 mg PO QHS 09/03/23 [History Last Taken Unknown] rosuvastatin 20 mg tablet 20 mg PO QHS cholesterol 09/03/23 [History Last Taken Unknown] spironolactone 25 mg-hydrochlorothiazide 25 mg tablet 0.5 tab PO DAILY 09/03/23 [History Last Taken Unknown] Allergy/AdvReac Type Severity Reaction Status Date / Time No Known Allergies Allergy Verified 09/03/23 01:34 Family History (Updated 09/03/23 @ 02:[address] Kaia Mcclain MD) Mother Lung cancer COPD (chronic obstructive pulmonary disease) Father Alcoholism Surgical History (Updated 09/03/23 @ 02:[address] Kaia Mcclain MD) History of hysterectomy Hx of cholecystectomy Hx of dilation and curettage S/P appendectomy Social History household members: none Smoking Status: Former smoker how long ago did patient quit smoking: Quit 1974 with approximately 20 years tobacco use history. alcohol intake: never substance use type: does not use EXAM Physical Exam Const Vital Signs: 09/03/23 01:28 09/03/23 01:34 09/03/23 01:37 Temperature 96.9 F L Temperature Source Temporal Pulse Rate 56 L 58 L Respiratory Rate 13 16 Respiratory Effort Normal Respiratory Depth Normal Respiratory Pattern Normal Blood Pressure 99/42 L 96/39 L Blood Pressure Mean 61 58 Pulse Ox 97 98 Oxygen Delivery Method Room Air Room Air Room Air 09/03/23 01:49 Temperature Temperature Source Pulse Rate 59 L Respiratory Rate 18 Respiratory Effort Respiratory Depth Respiratory Pattern Blood Pressure 123/46 H Blood Pressure Mean 71 Pulse Ox 99 Oxygen Delivery Method Room Air MDM MDM MDM Narrative Medical decision making narrative: HISTORY OF PRESENT ILLNESS: 88-year-old female who presents with lightheadedness dizziness and fall. Notes she hit her head on a dresser. She further states she is attempting to unplug acounter height [employer] tree when she lost her balance falling to the right injuring her head notes lots of bleeding. Denies chest pain, shortness of breath, palpitations prior to fall. Notes last tetanus was within the last 10 years. States she was seen earlier today for similar symptoms. States she has vertigo. Denies changes to her medications. Denies any recent vomiting or diarrhea. Denies any bleeding diathesis. Denies any focal numbness or weakness. REVIEW OF SYSTEMS: Pertinent positives: Dizziness Pertinent negatives: Chest pain, slurred speech focal weakness, loss of vision PHYSICAL EXAM: Nursing triage notes reviewed, Vital signs reviewed Primary Survey Airway: Intact Breathing: Bilateral breath sounds Circulation: Palpable bilateral femorals, Palpable bilateral radial, Palpable bilateral DP and Palpable bilateral PT Disability / Spine precautions GCS Score: Eye Openin Verbal Response: 5 Motor Response: 6 Secondary Survey Constitutional: Please see MDM Head: Dried blood noted to right scalp midface stable, NO jaw malocclusion, Eye: Pupils equal round and reactive to light, Extraocular muscles intact and Noperiorbital ecchymosis or stepoff, no evidence of entrapment ENT: Oropharynx clear, no lacerations, no hemotympanum, no raccoon eyes or varma sign Cervical spine / Neck: No cervical spine bony tenderness, crepitance, or stepoffdeformity Trachea midline Lungs: Clear to auscultation, No asymmetric rise and No crepitus, no flail chest Cardiac: Regular rate and rhythm and No murmurs Abdomen: Soft, Nontender and No rebound Pelvis: Pelvis stable to compression : No evidence of genital injury Back: No midline bony tenderness to thoracic/lumbar/sacral spines Neuro: Alert and oriented x3, neuro exam at baseline, cranial nerves II through XII are intact. No pain with extraocular muscle movement. There is negative test of skew. 5 of 5 strength in upper and lower extremities in flexion extension. Intact sensation to light touch in upper and lower extremity dermatomes. No truncal or extremity ataxia. No dysdiadochokinesia. Gait not assessed secondary to acuity of condition. 2+ reflexes in upper and lower extremities. No meningeal signs. Negative Babinski. NIH of 0. Psych: Normal affect Nursing triage notes reviewed, Vital signs reviewed MEDICAL DECISION MAKING: Chief Complaint: Fall, dizziness External records reviewed: Seen in 09/02/23 for dizziness. Neurologic exam at that time showed [place]-Hallpike was positive with right beating horizontal nystagmus. Labs showed hemoglobin 9.7, CKD, no significant electrolyte abnormalities, UA with evidence of bacterial infection (patient was on Keflex). CT scan of the time was negative, EKG at that time showed no ST elevation or acute infarction Factors affecting care: Hypertension, type 2 diabetes, hyperlipidemia, CKD Social determinants of health: Elderly History obtained from others: n family Consults: Internal medicine MDM Narrative: Patient presented with soft blood pressures, bradycardia, otherwise afebrile andnontoxic-appearing. Exam I considered the following differential diagnosis: Posterior shoulder CVA, ICH, cervical spine abnormality, dehydration, anemia, Electrolyte abnormality, arrhythmia, ACS, ALL IMAGES (IF OBTAINED) HAVE BEEN PERSONALLY REVIEWED AND INTERPRETED BY MYSELF. EKG with sinus bradycardia, left axis deviation, normal's, no STEMI CBC with no leukocytosis, noted stable anemia, no thrombocytopenia chest x-ray was read reviewed myself shows evidence of mild cardiomegaly when compared to prior x-ray 2017, coarse interstitial markings compared to prior will add BNP to assess for signs of heart failure BMP without significant [place] normalities, no HIRAL High-sensitivity troponin is negative, no evidence of myocardial ischemia BNP within normal limits CT scan of patient's head was negative for acute intracranial normality The synthesis of the patient's history, physical exam labs images suggest no acute life-threatening pathology. Patient is 88 years old. She lives alone. She has been seen multiple times in the ED today for dizziness and fall. I do not feel she is safe going home. I spoke to the internal medicine doctor Dr. Mcclain who accepted her case. Procedure: Laceration repair. The procedure was performed by myself. Indication: Wound repair Risks and benefits: risks, benefits and alternatives were discussed Consent: Consent was obtained. Wound Details: Approximately 3 cm linear laceration without galeal involvement noted to the posterior right occiput, no deeper structures involved, no foreign bodies noted. No bleeding noted. Anesthesia: 1% lidocaine without epi Wound prep: Patient was prepped and draped in the usual sterile fashion. Tetanus: Up-to-date Irrigation Solution: Saline Wound Preparation: Cleansed with chlorhexidine, peroxide The wound was explored to its base in a bloodless field. Procedure Description: Applied for simple interrupted 4-0 Vicryl absorbable sutures with good approximation. Patient tolerated the procedure well with no immediate complications The patient and/or family, caregivers express understanding. The patient and/orfamily, caregivers agrees with the plan. Shared decision making: I will have a discussion with the patient and or visitors regarding risk/benefits of further testing or admission. They will be made aware of of the risk/benefits inherent in this decision they will be given the opportunity to voice understanding. Total critical care time today provided was at least 0 minutes. This excludes separately billable procedures. Critical care time (if documented) is secondary to the patient having high probability of clinically significant/life threatening deterioration in the patient's condition which required my urgent intervention. Impression: 1. Dizziness 2. Fall 3. Anemia 4. UTI 5. History of CKD Dispo: PCU observation Lab Data Labs: Laboratory Results - last 24 hr 09/03/23 02:06 WBC 7.0 RBC 3.53 L Hgb 11.2 L Hct 34.0 L MCV 96.3 MCH 31.7 MCHC 32.9 RDW Std Deviation 51.2 H RDW Coeff of Luciano 14.6 Plt Count 196 MPV 10.0 Immature Gran % (Auto) 0.300 Neut % (Auto) 61.9 Lymph % (Auto) 26.3 [place] % (Auto) 8.6 Eos % (Auto) 2.2 Baso % (Auto) 0.7 Absolute Neuts (auto) 4.3 Absolute Lymphs (auto) 1.83 Nucleated RBC % 0 Discharge Plan Triage Chief Complaint: Fall Other Complaint: Dizziness ED Provider: Tristan Huitron Dx/Rx/DC Orders Prescriptions: No Action glipizide 5 MG tablet 5 mg PO DAILY Patient Comments: pramipexole 0.25 MG tablet 0.25 mg PO QHS lisinopril 2.5 MG tablet 2.5 mg PO DAILY Patient Comments: metoprolol tartrate 25 MG tablet 25 mg PO BID Patient Comments: insulin glargine 100 UNITS/ML insulin pen 42 units SQ QHS Patient Comments: Inject 42 Units subcutaneously daily at bedtime. allopurinol 100 MG tablet 100 mg PO BIDCM acetaminophen 500 MG tablet 500 mg PO BID aspirin 81 MG tablet,chewable 81 mg PO QHS cholecalciferol (vitamin D3) 10 MCG tablet 10 mcg PO DAILY cyanocobalamin (vitamin B-12) 1,000 MCG capsule 1,000 mcg PO DAILY meclizine 25 mg tablet 25 mg PO 4X/DAY PRN PRN (Reason: Dizziness) Qty: 20 0RF cephalexin 500 mg capsule 500 mg PO TID 7 Days Qty: 21 0RF glipizide 2.5 mg tablet extended release 24hr 2.5 mg PO DAILY rosuvastatin 20 mg tablet 20 mg PO QHS spironolacton-hydrochlorothiaz 25-25 mg tablet 0.5 tab PO DAILY melatonin 5 mg capsule 5 mg PO QHS Primary Care Provider: Maik Fay Referrals: Maik Fay MD [Primary Care Provider] - What to do if you have Problems For any increased pain, shortness of breath, bleeding, nausea or vomiting, chestpain, or any unexpected problems, contact your Primary Care Provider. Call [facility] ([phone]) or report to the closest Emergency Room. Call 911 if necessary. 09/03/23 0540 <Electronically signed by Tristan Huitron DO> Cosigner Signature (if applicable): CC: Dr. Maik Fay MD ~ Signed [facility] Work Phone: [phone] Discharge summary Author Tristan Huitron [facility] September 03, 2023 5:40am Note Date/Time September 03, 2023 1:37am [facility] Medical Records Department [address] [place] [id number] Emergency Department Summary 09/03/23 MR#: [id number] Acct: [id number] Name: CHARLETTE FARMER Rep #:[id number] : [id number] From: Tristan Alvarez PCP: Dr. Maik Fay MD Status :ADM FERNANDO Location: [address] History of Present Illness Chief Complaint: Fall [facility] Medical History (Updated 09/03/23 @ 02:[address] Kaia Mcclain MD) Cervical cancer CKD (chronic kidney disease), stage III Diverticular hemorrhage DM II (diabetes mellitus, type II), controlled Dyslipidemia Former tobacco use HTN (hypertension) Obesity Vertigo Home Medications glipizide 5 mg tablet, extended release 24 hr 5 mg PO DAILY DM 02/24/17 [History Last Taken 10/09/20] lisinopril 2.5 mg tablet 2.5 mg PO DAILY hypertension 02/24/17 [History Last Taken 10/09/20] metoprolol tartrate 25 mg tablet 25 mg PO BID HTN 02/24/17 [History Last Taken 10/09/20] pramipexole 0.25 mg tablet 0.25 mg PO QHS restless legs 02/24/17 [History Last Taken 10/08/20] acetaminophen 500 mg tablet 500 mg PO BID pain 10/10/20 [History Last Taken 10/09/20] allopurinol 100 mg tablet 100 mg PO BIDCM gout 10/10/20 [History Last Taken 10/09/20] aspirin 81 mg chewable tablet 81 mg PO QHS heart health 10/10/20 [History Last Taken 10/08/20] cholecalciferol (vitamin D3) 10 mcg (400 unit) tablet 10 mcg PO DAILY supplment 10/10/20 [History Last Taken 10/09/20] cyanocobalamin (vitamin B-12) 1,000 mcg capsule 1,000 mcg PO DAILY supplement 10/10/20 [History Last Taken 10/09/20] insulin glargine 100 unit/mL (3 mL) subcutaneous pen 42 units SQ QHS diabetes 10/10/20 [History Last Taken 10/08/20] cephalexin 500 mg capsule 500 mg PO TID 7 days #21 caps 09/02/23 [Rx Last Taken Unknown] meclizine 25 mg tablet 25 mg PO 4X/DAY PRN PRN Dizziness #20 tabs 09/02/23 [Rx Last Taken Unknown] glipizide 2.5 mg tablet, extended release 24 hr 2.5 mg PO DAILY diabetes 09/03/23 [History Last Taken Unknown] melatonin 5 mg capsule 5 mg PO QHS 09/03/23 [History Last Taken Unknown] rosuvastatin 20 mg tablet 20 mg PO QHS cholesterol 09/03/23 [History Last Taken Unknown] spironolactone 25 mg-hydrochlorothiazide 25 mg tablet 0.5 tab PO DAILY 09/03/23 [History Last Taken Unknown] Allergy/AdvReac Type Severity Reaction Status Date / Time No Known Allergies Allergy Verified 09/03/23 01:34 Family History (Updated 09/03/23 @ 02:[address] Kaia Mcclain MD) Mother Lung cancer COPD (chronic obstructive pulmonary disease) Father Alcoholism Surgical History (Updated 09/03/23 @ 02:[address] Kaia Mcclain MD) History of hysterectomy Hx of cholecystectomy Hx of dilation and curettage S/P appendectomy Social History household members: none Smoking Status: Former smoker how long ago did patient quit smoking: Quit 1973 with approximately 20 years tobacco use history. alcohol intake: never substance use type: does not use EXAM Physical Exam Const Vital Signs: 09/03/23 01:28 09/03/23 01:34 09/03/23 01:37 Temperature 96.9 F L Temperature Source Temporal Pulse Rate 56 L 58 L Respiratory Rate 13 16 Respiratory Effort Normal Respiratory Depth Normal Respiratory Pattern Normal Blood Pressure 99/42 L 96/39 L Blood Pressure Mean 61 58 Pulse Ox 97 98 Oxygen Delivery Method Room Air Room Air Room Air 09/03/23 01:49 Temperature Temperature Source Pulse Rate 59 L Respiratory Rate 18 Respiratory Effort Respiratory Depth Respiratory Pattern Blood Pressure 123/46 H Blood Pressure Mean 71 Pulse Ox 99 Oxygen Delivery Method Room Air [facility] MDM MDM Narrative Medical decision making narrative: HISTORY OF PRESENT ILLNESS: 88-year-old female who presents with lightheadedness dizziness and fall. Notes she hit her head on a dresser. She further states she is attempting to unplug acounter height [employer] tree when she lost her balance falling to the right injuring her head notes lots of bleeding. Denies chest pain, shortness of breath, palpitations prior to fall. Notes last tetanus was within the last 10 years. States she was seen earlier today for similar symptoms. States she has vertigo. Denies changes to her medications. Denies any recent vomiting or diarrhea. Denies any bleeding diathesis. Denies any focal numbness or weakness. REVIEW OF SYSTEMS: Pertinent positives: Dizziness Pertinent negatives: Chest pain, slurred speech focal weakness, loss of vision PHYSICAL EXAM: Nursing triage notes reviewed, Vital signs reviewed Primary Survey Airway: Intact Breathing: Bilateral breath sounds Circulation: Palpable bilateral femorals, Palpable bilateral radial, Palpable bilateral DP and Palpable bilateral PT Disability / Spine precautions GCS Score: Eye Openin Verbal Response: 5 Motor Response: 6 Secondary Survey Constitutional: Please see MDM Head: Dried blood noted to right scalp midface stable, NO jaw malocclusion, Eye: Pupils equal round and reactive to light, Extraocular muscles intact and Noperiorbital ecchymosis or stepoff, no evidence of entrapment ENT: Oropharynx clear, no lacerations, no hemotympanum, no raccoon eyes or vrama sign Cervical spine / Neck: No cervical spine bony tenderness, crepitance, or stepoffdeformity Trachea midline Lungs: Clear to auscultation, No asymmetric rise and No crepitus, no flail chest Cardiac: Regular rate and rhythm and No murmurs Abdomen: Soft, Nontender and No rebound Pelvis: Pelvis stable to compression : No evidence of genital injury Back: No midline bony tenderness to thoracic/lumbar/sacral spines Neuro: Alert and oriented x3, neuro exam at baseline, cranial nerves II through XII are intact. No pain with extraocular muscle movement. There is negative test of skew. 5 of 5 strength in upper and lower extremities in flexion extension. Intact sensation to light touch in upper and lower extremity dermatomes. No truncal or extremity ataxia. No dysdiadochokinesia. Gait not assessed secondary to acuity of condition. 2+ reflexes in upper and lower extremities. No meningeal signs. Negative Babinski. NIH of 0. Psych: Normal affect Nursing triage notes reviewed, Vital signs reviewed MEDICAL DECISION MAKING: Chief Complaint: Fall, dizziness External records reviewed: Seen in 09/02/23 for dizziness. Neurologic exam at that time showed [place]-Hallpike was positive with right beating horizontal nystagmus. Labs showed hemoglobin 9.7, CKD, no significant electrolyte abnormalities, UA with evidence of bacterial infection (patient was on Keflex). CT scan of the time was negative, EKG at that time showed no ST elevation or acute infarction Factors affecting care: Hypertension, type 2 diabetes, hyperlipidemia, CKD Social determinants of health: Elderly History obtained from others: n family Consults: Internal medicine MDM Narrative: Patient presented with soft blood pressures, bradycardia, otherwise afebrile andnontoxic-appearing. Exam I considered the following differential diagnosis: Posterior shoulder CVA, ICH, cervical spine abnormality, dehydration, anemia, Electrolyte abnormality, arrhythmia, ACS, ALL IMAGES (IF OBTAINED) HAVE BEEN PERSONALLY REVIEWED AND INTERPRETED BY MYSELF. EKG with sinus bradycardia, left axis deviation, normal's, no STEMI CBC with no leukocytosis, noted stable anemia, no thrombocytopenia chest x-ray was read reviewed myself shows evidence of mild cardiomegaly when compared to prior x-ray 2017, coarse interstitial markings compared to prior will add BNP to assess for signs of heart failure BMP without significant [place] normalities, no HIRAL High-sensitivity troponin is negative, no evidence of myocardial ischemia BNP within normal limits CT scan of patient's head was negative for acute intracranial normality The synthesis of the patient's history, physical exam labs images suggest no acute life-threatening pathology. Patient is 88 years old. She lives alone. She has been seen multiple times in the ED today for dizziness and fall. I do not feel she is safe going home. I spoke to the internal medicine doctor Dr. Mcclain who accepted her case. Procedure: Laceration repair. The procedure was performed by myself. Indication: Wound repair Risks and benefits: risks, benefits and alternatives were discussed Consent: Consent was obtained. Wound Details: Approximately 3 cm linear laceration without galeal involvement noted to the posterior right occiput, no deeper structures involved, no foreign bodies noted. No bleeding noted. Anesthesia: 1% lidocaine without epi Wound prep: Patient was prepped and draped in the usual sterile fashion. Tetanus: Up-to-date Irrigation Solution: Saline Wound Preparation: Cleansed with chlorhexidine, peroxide The wound was explored to its base in a bloodless field. Procedure Description: Applied for simple interrupted 4-0 Vicryl absorbable sutures with good approximation. Patient tolerated the procedure well with no immediate complications The patient and/or family, caregivers express understanding. The patient and/orfamily, caregivers agrees with the plan. Shared decision making: I will have a discussion with the patient and or visitors regarding risk/benefits of further testing or admission. They will be made aware of of the risk/benefits inherent in this decision they will be given the opportunity to voice understanding. Total critical care time today provided was at least 0 minutes. This excludes separately billable procedures. Critical care time (if documented) is secondary to the patient having high probability of clinically significant/life threatening deterioration in the patient's condition which required my urgent intervention. Impression: 1. Dizziness 2. Fall 3. Anemia 4. UTI 5. History of CKD Dispo: PCU observation Lab Data Labs: Laboratory Results - last 24 hr 09/03/23 02:06 WBC 7.0 RBC 3.53 L Hgb 11.2 L Hct 34.0 L MCV 96.3 MCH 31.7 MCHC 32.9 RDW Std Deviation 51.2 H RDW Coeff of Luciano 14.6 Plt Count 196 MPV 10.0 Immature Gran % (Auto) 0.300 Neut % (Auto) 61.9 Lymph % (Auto) 26.3 [place] % (Auto) 8.6 Eos % (Auto) 2.2 Baso % (Auto) 0.7 Absolute Neuts (auto) 4.3 Absolute Lymphs (auto) 1.83 Nucleated RBC % 0 Discharge Plan Triage Chief Complaint: Fall Other Complaint: Dizziness ED Provider: Tristan Huitron Dx/Rx/DC Orders Prescriptions: No Action glipizide 5 MG tablet 5 mg PO DAILY Patient Comments: pramipexole 0.25 MG tablet 0.25 mg PO QHS lisinopril 2.5 MG tablet 2.5 mg PO DAILY Patient Comments: metoprolol tartrate 25 MG tablet 25 mg PO BID Patient Comments: insulin glargine 100 UNITS/ML insulin pen 42 units SQ QHS Patient Comments: Inject 42 Units subcutaneously daily at bedtime. allopurinol 100 MG tablet 100 mg PO BIDCM acetaminophen 500 MG tablet 500 mg PO BID aspirin 81 MG tablet,chewable 81 mg PO QHS cholecalciferol (vitamin D3) 10 MCG tablet 10 mcg PO DAILY cyanocobalamin (vitamin B-12) 1,000 MCG capsule 1,000 mcg PO DAILY meclizine 25 mg tablet 25 mg PO 4X/DAY PRN PRN (Reason: Dizziness) Qty: 20 0RF cephalexin 500 mg capsule 500 mg PO TID 7 Days Qty: 21 0RF glipizide 2.5 mg tablet extended release 24hr 2.5 mg PO DAILY rosuvastatin 20 mg tablet 20 mg PO QHS spironolacton-hydrochlorothiaz 25-25 mg tablet 0.5 tab PO DAILY melatonin 5 mg capsule 5 mg PO QHS Primary Care Provider: Maik Fay Referrals: Maik Fay MD [Primary Care Provider] - What to do if you have Problems For any increased pain, shortness of breath, bleeding, nausea or vomiting, chestpain, or any unexpected problems, contact your Primary Care Provider. Call [facility] ([phone]) or report to the closest Emergency Room. Call 911 if necessary. 09/03/23 0540 <Electronically signed by Tristan Huitron DO> Cosigner Signature (if applicable): CC: Dr. Maik Fay MD ~ Signed [facility] Work Phone: [phone] 281-234812-15-2023 Miscellaneous Notes* Telephone Encounter - Maribel Fay MD - 09/02/2023 11:40 AM EST Agree. * Telephone Encounter - Nataliia Burnham RN - 09/02/2023 10:18 AM EST Triage Protocol Recommended: Call 911/ER now. Patient agreeable to calling 911/ER now. Reason for Disposition [1] Numbness (i.e., loss of sensation) of the face, arm or leg on one side of the body AND [2] sudden onset AND [3] present now Answer Assessment - Initial Assessment Questions Pt calling, states when she got out of bed this morning she felt dizzy and continues to be when stands up and walks. Feels unsteady on her feet even with her cane. Feels wobbly. States she is bouncing off of furniture. Little nausea and looser stool this morning as well. Reports coughing more than usual recently. Diabetic; blood sugar 124 this morning. Has not take any blood pressure medication yet this morning. Reports new left leg numbness for about 1 week. Reports she does have neuropathy in her feet and had carpal tunnel surgery on right hand in 05/2023. Pt has daughter with her during call who can assist her. 1. DESCRIPTION: When stands up, experiences severe dizziness-requiring her to hold on to things to walk 2. LIGHTHEADED: yes, when up 3. VERTIGO: never been diagnosed with this 4. SEVERITY: moderate to severe 5. ONSET: this morning when got out of bed 6. AGGRAVATING FACTORS:standing makes it worse 7. HEART RATE: denies heart issues, no chest pain or pressure 8. CAUSE: Pt unsure 9. RECURRENT SYMPTOM: never had this before 10. OTHER SYMPTOMS DENIES: fever, chest pain, vomiting, diarrhea, bleeding, chest pain, SOB, nasal congestion, earache, headache, no facial numbness, no confusion, no vision changes. . Protocols used: Dizziness - [id number] documented in [facility] encounter[facility]11-29-[facility]23 Miscellaneous Notes* Telephone Encounter - Paris Umanzor RN - 08/17/2023 11:19 AM EST Pt called and is notified of providers message and instructions. Pt voices understanding. Paris Umanzor RN * Telephone Encounter - Tosha Pelaez APRN.CNP - 08/17/2023 11:00 AM EST Increase Lantus to 42 units at bedtime. Update me in two weeks with blood sugar readings. Tosha Pelaez APRN.VAMSHI * Telephone Encounter - Kassandra Harrison LPN - 08/17/2023 10:55 AM EST Patient telephoned and given results and recommendations below. Prefers to increase her lantus as her insurance should cover that. Voices understanding to everything below. Kassandra Harrison LPN * Telephone Encounter - Tosha Pelaez APRN.CNP - 08/17/2023 8:04 AM EST Please call patient and let her know her A1c has decreased to 8.0% goal is less than 8.0%. We have two options: 1.) increase her latus or 2.) start another medication that also can help preserve kidney function. This medication would cost her about 47$ a month or 131$for 90 days. Labs also show kidney function has decreased from last check so se should continue to avoid NSAID products, eat low salt diet and stay well hydrated with water Tosha Pelaez APRN.VAMSHI documented in this encounterA[facility] History of Present illness Narrative* Tosha Pelaez APRN.VAMSHI - 08/15/2023 1:42 PM EST 08/15/2023 Patient presents with: Follow Up: 3 month follow up SUBJECTIVE: This is a 88 year old that is here today for Above Complaints. Since last office visit had her right carpal tunnel repaired. Reports she is doing well and able tocrochet again DIABETES MELLITUS: Since our last visit she denies excessive thirst or increased frequency of urination, chest pain or dyspnea , numbness, tingling or pain in extremities, new or unusual visual symptoms, low sugar/hypoglycemic reactions, weight loss/gain, lightheadedness/dizziness, and bowel changes/loose stools. Follows a diabetic diet . She is compliant with medication(s) and is tolerating med(s) without any side effects. She reports checking her glucose on a once a day schedule with sugars in the fasting and <150 range. Patient's last HgA1C was Hemoglobin A1C (%) Date Value 05/11/2023 8.2 02/08/2023 8.2 11/03/2021 7.9 07/22/2021 7.8 ) Last Ophthalmology exam has appointment in October Last podiatry exam: 06/27/2023 HTN: Patient is compliant with meds Yes Monitors bp at home: No. Denies side effects: Yes. Chest pain: No. Dyspnea: No. Edema: No. Palpitations: No. Syncope: No. Headache: No. Dizziness: No. HYPERLIPIDEMIA: Patient is taking medications: Yes. Patient is watching diet: Yes. Patient denies myalgias: Yes. Patient denies gi upset: Yes RLS: taking Mirapex as prescribed without side effects. Works for the most part to control symptoms PAST MEDICAL HISTORY Diagnosis Date Arthritis Benign neoplasm of colon Carpal tunnel syndrome, right Chronic kidney disease, stage 3 (HCC) Diverticulitis 10/10/2020 Diverticulosis of colon (without mention of hemorrhage) Gout History of transfusion Internal hemorrhoids without mention of complication Lumbago Malignant neoplasm of corpus uteri, except isthmus (HCC) 1996 Uterine cancer Other and unspecified hyperlipidemia PAD (peripheral artery disease) ([facility]) 2013 Mild LLE Pernicious anemia Restless leg syndrome Rotator cuff tendinitis left Trigger finger, right middle finger Seen by Dr. Burns 2015 Type II or unspecified type diabetes mellitus without mention of complication, uncontrolled Unspecified essential hypertension ALLERGIES Lipitor [Atorvastatin] and Simvastatin MEDICATIONS Current Outpatient Medications Medication Sig metoprolol tartrate, short acting, (LOPRESSOR) 25 mg tablet Take 1 tablet by mouth two times a day. spironolactone-hctz 25/25 (ALDACTAZIDE) 25-25 mg per tablet Take 0.5 tablets by mouth once daily. blood sugar diagnostic (BLOOD GLUCOSE TEST) test strip Test blood sugar(s) 2 times daily. Dx: Type 2 DM - Controlled E11.9 Insulin: Yes pramipexole (MIRAPEX) 0.25 mg tablet Take 1 tablet by mouth daily at bedtime. allopurinol (ZYLOPRIM) 100 mg tablet Take 1 tablet by mouth two times a day. insulin glargine (LANTUS SOLOSTAR U-100 INSULIN) 100 unit/mL (3 mL) Inject 38 Units subcutaneously daily at bedtime. Lancets (ACCU-CHEK SOFTCLIX LANCETS) lancets Use Three times daily to check blood sugar lisinopril 2.5 mg tablet Take 1 tablet by mouth once daily. glipiZIDE (GLUCOTROL XL) 2.5 mg 24 hr tablet Take 1 tablet by mouth once daily. rosuvastatin (CRESTOR) 20 mg tablet Take 1 tablet by mouth daily at bedtime. Insulin [place]borg, Disposable, (PEN NEEDLE) 29 gauge x 1/2 One needle once daily. Dx: 250.02 Insulin: yes ammonium lactate (LAC-HYDRIN) 12 % lotion Apply 1 application to affected area as needed for Dry Skin. melatonin 3 mg Take by mouth daily at bedtime. COMPOUNDED PRESCRIPTION Cock up wrist splint, right Medium. To be worn nightly to prevent carpal tunnel symptoms. Dx: carpal tunnel right Cholecalciferol, Vitamin D3, 1,000 unit cap Take 1 capsule by mouth once daily. cyanocobalamin (VITAMIN B-12) 1,000 mcg Tab Take 1 tablet by mouth once daily. Dx: pernicious anemia Blood-Glucose Meter, Drum-type (ACCU-CHEK COMPACT PLUS CARE) [facility] Each. Accu-Check Compact Plus Meter Diagnosis: Diabetes Mellitus ASPIRIN 81 MG TAB Take one (1) tablet daily . No current facility-administered medications for this visit. Medications and allergies reviewed by this provider. SOCIAL HISTORY Social History Tobacco Use Smoking status: Former Packs/day: 1.00 Years: 21.00 Additional pack years: 0.00 Total pack years: 21.00 Types: Cigarettes Start date: 11/23/1952 Quit date: 09/19/1973 Years since quittin.9 Smokeless tobacco: Never Vaping Use Vaping Use: Never used Substance Use Topics Alcohol use: Yes Comment: occas glass of wine Drug use: No REVIEW OF SYSTEMS All other reviewed and negative other than HPI. OBJECTIVE: BP 124/62 Pulse 64 Resp 18 Wt 75.3 kg (166 lb) BMI 31.37 kg/m . Vital signs reviewed by this provider. APPEARANCE Well appearing, alert, in no acute distress, well-hydrated, well nourished. EYES conjunctiva and sclera normal. HEART RRR with normal S1 and S2, no murmurs, no gallops, no JVD appreciated LUNG clear to auscultation. No wheezes, rhonchi or rales EXTREMITIES Extremities normal, No deformities, No skin discoloration, and No edema SKIN Skin color, texture, turgor normal, no suspicious rashes or lesions to exposed skin Component Latest Ref Rng & Units 05/11/2023 Protein, Total 6.3 - 8.0 g/dL 7.1 Albumin 3.9 - 4.9 g/dL 4.9 Calcium 8.5 - 10.2 mg/dL 9.8 Bilirubin, Total 0.2 - 1.3 mg/dL 0.4 Alkaline Phosphatase 34 - 123 U/L 68 AST 13 - 35 U/L 20 ALT 7 - 38 U/L 12 Glucose 74 - 99 mg/dL 138 (H) BUN 7 - 21 mg/dL 21 Creatinine 0.58 - 0.96 mg/dL 1.17 (H) Sodium 136 - 144 mmol/L 137 Potassium 3.7 - 5.1 mmol/L 4.7 Chloride 97 - 105 mmol/L 99 CO2 22 - 30 mmol/L 21 (L) Anion Gap 9 - 18 mmol/L 17 eGFR >=60 mL/min/1.73m 45 (L) Hemoglobin A1C 4.3 - 5.6 % 8.2 (H) Estimated Average Glucose mg/dL 189 Hepatitis B Vaccine(1 of 3 - Risk 3-dose series) Never done RSV Vaccine(1 - 1-dose 60+ series) Never done DTaP,Tdap,Td Vaccine(2 - Tdap) due on 06/06/2018 Advance Directive Discussion due on 09/19/2022 Depression Assessment Never done HbA1C due on 08/11/2023 Urine Albumin:Creatinine Ratio due on 08/09/2023 Shingrix Vaccine(2 of 2) due on 10/04/2023 Dilated Retinal Exam due on 10/06/2023 LDL Cholesterol due on 11/09/2023 Diabetic Foot Exam due on 03/10/2024 Bone Density Screening Completed Influenza Vaccine Completed Covid-19 Vaccine Completed Pneumococcal Vaccine: 65+ Completed ASSESSMENT/PLAN: 1. Type 2 diabetes mellitus with stage 3b chronic kidney disease, with long-term current use of insulin (HCC) - ICD9: 250.40, 585.3, V58.67, ICD10: E11.22, N18.32, Z79.4 (primary diagnosis) - Control undetermined, due for labs - Continue current medications - Statin prescribed - rosuvastatin - Blood glucose monitoring on a once daily schedule - Counseled on healthy diet and regular exercise -- Follow up in 3 months, sooner should any other issues arise. - eGFR: 45 Stable - Counseled on avoiding NSAIDs, adequate hydration - HGB A1C - ALBUMIN/CREAT RATIO RND UR 2. Essential hypertension - ICD9: 401.9, ICD10: I10 - Controlled - Continue current medications - Recommend home blood pressure monitoring, to bring results to next visit - Encouraged sodium restriction, DASH or Mediterranean diet - Recommend regular aerobic exercise - Discussed need for and benefit of weight loss. BMI 31.11 kg/(m^2) - Follow up in 6 months for hypertension visit - COMP METABOLIC PANEL 3. Mixed hyperlipidemia - ICD9: 272.2, ICD10: E78.2 - Counseled on healthy diet and regular exercise - continue current medication - Discussed need for and benefit of weight loss. BMI 31.11 kg/(m^2) - Follow up in 3 months, sooner should any other issues arise. 4. Restless leg syndrome - ICD9: 333.94, ICD10: G25.81 - stable on current regime Tosha Pelaez APRN.SHELF FILLER Prescription instructions reviewed with patient as applicable. Patient advised if symptoms do not improve or if symptoms worsen sooner, to contact their primary care physician. Potential red flag symptoms discussed with the patient. Reviewed appropriate action plan to take if red flag symptoms occur. Patient agreeable to treatment plan. I spent a total of 25 minutes on the date of the service which included preparing to see the patient, [id number] patient care, completing clinical documentation, obtaining and/or reviewing separately obtained history, performing a medically appropriate examination, counseling and educating the pat ient/family/caregiver, and ordering medications, tests, or procedures. documented in this encounterAult[facility]11-20-2023 Miscellaneous Notes* Telephone Encounter - Mikhail Macias - 08/08/2023 7:07 PM EST MADISYN 05/11/23 NOV 08/15/23 * Telephone Encounter - Baylee Ochoa - 08/08/2023 11:12 AM EST Patient has been identified by name and date of : Yes Requested Prescriptions Pending Prescriptions Disp Refills metoprolol tartrate, short acting, (LOPRESSOR) 25 mg tablet 180 tablet 1 Sig: Take 1 tablet by mouth two times a day. spironolactone-hctz 25/25 (ALDACTAZIDE) 25-25 mg per tablet 45 tablet 1 Sig: Take 0.5 tablets by mouth once daily. RX INSTRUCTIONS: Patient aware RX escripted to mail away pharmacy. No need to notify patient. Baylee William documented in this encounterAultman [facility]11-14-2023 Miscellaneous Notes* Telephone Encounter - Maribel Fay MD - 08/02/2023 4:05 PM EST Rx sent. * Telephone Encounter - Sloane Langley Ma - 08/02/2023 3:44 PM EST [facility] notified that embrace talk test strips not covered with medicare. Called patient who is aware generic meter/strips will be sent and pharmacy can dispense formulary options covered. Patient verbalized understanding Sloane Langley Ma documented in this encounterAultman [facility]11-09-2023 Miscellaneous Notes* Telephone Encounter - Maki Duran LPN - 07/28/2023 12:02 PM EST Saw Tosha in Apr follow up scheduled 08/15/23. * Telephone Encounter - Dina Thompson - 07/28/2023 9:17 AM EST Patient has been identified by name and date of : Yes Requested Prescriptions Pending Prescriptions Disp Refills blood sugar diagnostic (EMBRACE TALK TEST STRIPS) test strip 200 Strip 1 Si Strip two times a day. Use as instructed blood sugar diagnostic (EMBRACE TALK TEST STRIPS) test strip 50 Strip 0 Si Strip two times a day. Use as instructed RX INSTRUCTIONS: Patient aware RX will be sent to pharmacy. No need to notify patient. Dina William documented in this encounterAultman [facility]10-20-2023 Miscellaneous Notes* Telephone Encounter - Paris Umanzor RN - 07/08/2023 12:03 PM EDT Patient has been identified by name and date of : Yes, Provider Dr Fay Date 07/08/23 Time 1204. Patient phones for refill(s): Requested Prescriptions Pending Prescriptions Disp Refills blood sugar diagnostic (EMBRACE TALK TEST STRIPS) test strip 200 Strip 1 Si Strip two times a day. Use as instructed pramipexole (MIRAPEX) 0.25 mg tablet 90 tablet 1 Sig: Take 1 tablet by mouth daily at bedtime. allopurinol (ZYLOPRIM) 100 mg tablet 180 tablet 3 Sig: Take 1 tablet by mouth two times a day. Date of last office visit in primary care: 05/11/2023 Date of next office visit in primary care: 08/15/2023 Last 2 Encounter Wt Readings: Date: Wt: 05/11/2023 76.7 kg (169 lb) 04/20/2023 77.1 kg (170 lb) Previous labs/tests for medication: Diabetes: Hemoglobin A1C (%) Date Value 05/11/2023 8.2 02/08/2023 8.2 11/03/2021 7.9 07/22/2021 7.8 Blood Pressure: BUN (mg/dL) Date Value 05/11/2023 21 11/03/2021 26 Sodium (mmol/L) Date Value 05/11/2023 137 11/03/2021 138 Last 1 Encounter BP Readings: Date: BP: 05/24/2023 85/47 Liver Function: ALT (U/L) Date Value 05/11/2023 12 11/03/2021 12 AST (U/L) Date Value 05/11/2023 20 11/03/2021 21 Please advise. Thank you. Paris Umanzor RN. documented in this encounterAultman [facility]10-09-2023 History of Present illness Narrative* OraKarel kraft - 06/27/2023 2:33 PM EDT Last saw Tosha Podlogar: 02/08/23 Subjective: Patient presents to clinic c/o painful toenails. They state that the nails are especially painful with shoe gear and pressure. Patient states that nails 1-5 b/l are painful. Patient admits to being diabetic. No other pedal complaints at this time. Patient states no change in medications or medical history since last visit. Objective: Patient presents to clinic ambulating in sketchers Vasc: DP and PT pulses are palpable bilateral. CFT is less than 5 seconds bilateral. Skin temperature is warm to cool proximal to distal bilateral. There is no edema or varicosities noted. Neuro: Protective sensation is intact to the foot and toes when tested with the 5.07 SWM bilateral.Vibratory sensation is decreased at the hallux IPJ bilateral. The hallux is downgoing bilateral. Derm: Nails 1-5 b/l are painful, discolored-yellow, thick, crumbly, dystrophic and with subungal debris. Skin is of normal turgor, texture and hair growth is absent bilateral. There are no hyperkeratosis, ulcerations, scars, verruca or other lesions noted. Ortho: Muscle strength is 5/5 for all pedal groups tested. Ankle joint DF is decreased with the knee extended with no pain or crepitus noted. 1st MPJ ROM is decreased bilateral. Assessment: (E11.42) DM type 2 with diabetic peripheral neuropathy (HCC) (primary encounter diagnosis) (B35.1) Onychomycosis (M79.674) Pain in toe of right foot (M79.675) Pain in toe of left foot Plan: Patient was seen and evaluated. Nails 1-5 bilateral were debrided in length and thickness. Patient was instructed on the continued importance of diabetic foot care along with proper diet and keeping their blood sugar under control to prevent complications. Patient is to RTC in 3-4 months. Karel Santiago DPM * La Nena Lawson LPN - 06/27/2023 2:31 PM EDT AMB ROOMING INTAKE FLOWSHEET DATA Patient presents with: Left Foot - Established Patient, Diabetic Foot Care, Follow Up Right Foot - Established Patient, Diabetic Foot Care, Follow Up La Nena Lawson LPN documented in this encounterAultman [facility]10-09-2023 Instructions* Patient Instructions* Karel Santiago - 06/27/2023 2:33 PM EDT Diabetes Foot Care Instructions When you have diabetes, proper foot care is very important. Poor foot care may lead to amputation of a foot or leg. As a person with diabetes, you are more vulnerable to foot problems, because diabetes can damage your nerves and reduce blood flow to your feet. Here are some diabetes foot care tips to follow: Wash and Dry Your Feet Daily Use mild soaps Use warm water Pat your skin dry; do not rub. Thoroughly dry your feet. After washing, use lotion on your feet to prevent cracking. Do not put lotion between your toes. Examine Your Feet Each Day Check the tops and bottoms of your feet. Have someone else look at your feet if you cannot see them. Check for dry, cracked skin. Look for blisters, cuts, scratches, or other sores. Check for redness, increased warmth, or tenderness when touching any area of your feet. Check for ingrown toenails, corns, and calluses. If you get a blister or sore from your shoes, do not pop it. Apply a bandage and wear a differentpair of shoes. Take Care of Your Toenails Cut toenails after bathing, when they are soft. Cut toenails straight across and smooth with a nail file. Avoid cutting into the corners of toes. Do not cut cuticles. If you have neuropathy (or decreased sensation in your feet) a clinical informatics director should always cut your toenails. Be Careful When Exercising Walk and exercise in comfortable shoes. Do not exercise when you have open sores on your feet. Protect Your Feet With Shoes and Socks Never go barefoot. Always protect your feet by wearing shoes or hard-soled slippers or footwear. Avoid shoes with high heels and pointed toes. Avoid shoes that expose your toes or heels (such as open-toed shoes or sandals). These types of shoes increase your risk for injury and potential infections. Try on new footwear with the type of socks you usually wear. Do not wear new shoes for more than an hour at a time. Change your socks daily. Look and feel inside your shoes before putting them on to make sure there are no foreign objects orrough areas. Avoid tight socks. Wear natural-fiber socks (cotton, wool, or a cotton-wool blend). Wear special shoes if your health care provider recommends them. Wear shoes/boots that will protect your feet from various weather conditions (cold, moisture, etc.). Make sure your shoes fit properly. If you have neuropathy (nerve damage), you may not notice that your shoes are too tight. Perform the footwear test described below. Footwear Test Use this simple test to see if your shoes fit correctly: Stand on a piece of paper. (Make sure you are standing and not sitting, because your foot changes shape when you stand.) Trace the outline of your foot. Trace the outline of your shoe. Compare the tracings: Is the shoe too narrow? Is your foot crammed into the shoe? The shoe should be at least 1/2 inch longer than your longest toe and as wide as your foot. Proper Shoe Choices The following types of shoes are best for people with diabetes Closed toes and heels Leather uppers without a seam inside At least 1/2 inch extra space at the end of your longest toe Inside of shoe should be soft with no rough areas Outer sole should be made of stiff material Shoes should be at least as wide as your feet Tips for Foot Care in Diabetes Don't wait to treat a minor foot problem if you have diabetes. Follow your health care provider's guidelines and first aid guidelines. Report foot injuries and infections to your health care provider immediately. Check water temperature with your elbow, not your foot. Do not use a heating pad on your feet. Do not cross your legs. Do not self-treat your corns, calluses, or other foot problems. Go to your health care provider or clinical informatics director to treat these conditions. documented in this encounterAultman [facility]09-14-2023 Miscellaneous Notes* Telephone Encounter - Asia Sarabia - 06/02/2023 11:18 AM EDT Pt states She needs the Lantus sent to [facility]. Patient has been identified by name and date of : Yes Last office visit in this department: 05/11/2023 RX INSTRUCTIONS: Patient aware RX will be sent to pharmacy. No need to notify patient. Patient phones requesting refills as follows: Requested Prescriptions Pending Prescriptions Disp Refills blood sugar diagnostic (ACCU-CHEK JORGE PLUS TEST STRP) test strip 200 Each 0 Sig: Check blood sugar three times daily Lancets (ACCU-CHEK SOFTCLIX LANCETS) lancets 100 Each 0 Sig: Use Three times daily to check blood sugar lisinopril 2.5 mg tablet 90 tablet 1 Sig: Take 1 tablet by mouth once daily. glipiZIDE XL (GLUCOTROL XL) 2.5 mg 24 hr tablet 90 tablet 3 Sig: Take 1 tablet by mouth once daily. insulin glargine (LANTUS SOLOSTAR U-100 INSULIN) 100 unit/mL (3 mL) 5 Each 0 Sig: Inject 38 Units subcutaneously daily at bedtime. Please review and advise. Asia Sarabia documented in this encounterAultman [facility] Hospital08-28-2023 Miscellaneous Notes* Telephone Encounter - Marysol Guzmán RN - 05/16/2023 3:08 PM EDT Pt called and is notified of providers results and instructions. Pt voices understanding. Appt set up for 08/15 at 2 pm. Marysol Guzmán RN * Telephone Encounter - Kassandra Harrison LPN - 05/16/2023 1:41 PM EDT Message left for patient to call office back for update. Kassandra Harrison LPN * Telephone Encounter - Tosha Pelaez APRN.CNP - 05/16/2023 12:51 PM EDT A1c elevated at 8.2%. Recommend increasing Lantus to 38 units in addition to low carbohydrate diet and aim for at least 150 minutes of exercise per week. Check blood sugar twice a day one fasting theother either before meal or 1-2 hours after a meal. Update me in two weeks with readings. Improvement in kidney function. Continue to eat low salt diet, avoid NSAID products and stay well hydrated. Office appointment in 3 months. Tosha Pelaez APRN.VAMSHI documented in this encounterAultman Alliance [facility] Hospital08-02-2023 Instructions* Patient Instructions* Hamida Samuels PA-C - 04/20/2023 2:25 PM EDT PATIENT PREOPERATIVE INSTRUCTIONS Savana De Oliveira,* has scheduled you for your procedure at this surgery center: [facility]: [phone] -- [address] [address]. Please read below carefully for your personalized instructions. Arrival Time for Surgery: - The Surgery Center or hospital where you are having surgery will call the afternoon before surgery (or Tuesday for Tuesday surgery) with a scheduled arrival time. - If you have not heard by 4 pm, please contact the surgery center above. Please be aware that emergency situations arise, which may delay or change your surgical time. If this happens, we will notify you as soon as possible and regret any inconvenience. Dietary Restrictions: - No solid food after midnight. - You may have 12 ounces of clear liquids (water, clear juices such as apple juice or gatorade, carbonated beverages, clear tea, black coffee, jello) until 2 hours before scheduled arrival at facility. - Do not drink any alcohol after midnight the night before your surgery. Is Patient Diabetic:Yes Preoperative Instructions for Patient's with Diabetes Mellitus Diabetic Medication Instructions:For the following Meds, please HOLD 2 DAYS PRIOR TO SURGERY: Glucotrol/Glipizide, Januvia/Sitagliptin, Glyburide, Prandin/Repaglinide, Starlix/Nateglinide,Symlin/Pramlintide, Dulaglutide/Trulicity, Exenatide (Bydureon/Byetta), Semaglutide (Ozempic, Rybelsus), Laraglutide (Victoza/Saxenda), Lixsenstide (Adlyxin). Insulin Medication Instructions:For the following medication, take 75% of your usual dose the evening before surgery. If not possible to take 75% of your usual dose then take your full dose. DO NOT TAKE ON THE MORNING OF SURGERY: Basaglar, Lantus, Levemir, Rougeo and Tresiba Medications: Unless instructed differently below, stay on all of your medications until your surgery. Approved medications to take the morning of surgery with a sip of water: metoprolol DO NOT TAKE YOUR lisinopril (ZESTRIL, PRINIVIL) THE NIGHT BEFORE OR MORNING OF SURGERY. DO NOT TAKE YOUR spironolactone-hydroCHLOROthiazide (HYDRODIURIL, ESIDRIX) or allopurinol THE MORNING OF SURGERY. If you start any new medications after today's visit, please contact the surgeon's office. Blood Thinning Medications: - Stop NSAIDS (Ibuprofen, Advil, Aleve, Motrin, Celebrex, Mobic, etc.) 7 days before surgery, as directed by your surgeon. - Stop Aspirin 7 days before surgery, as directed by your surgeon. - Stop Vitamin E, ALL multi-vitamins, herbals and dietary supplements 7 days before surgery. - You may take Tylenol (Acetaminophen) or any of your pain medications that do not contain aspirin or NSAIDS as needed. Important Reminders: - If you use CPAP/BIPAP, bring the machine with you to the surgery center. - If you are prescribed inhalers for breathing, continue using them. - Candy, mints, and tobacco products are NOT permitted the morning of surgery. - Hearing aids, dentures and glasses may be worn the morning of surgery. - NO jewelry, body piercings, makeup, hairpins or contacts are to be worn the day of surgery. If you develop symptoms such as a fever, cold, or flu, or have other changes to your health within TWO DAYS of scheduled surgery or the morning of surgery, please contact the surgery center above. Personal Belongings: -Please have photo ID and insurance cards. -If you do not have a copy of advance directives on file with us, please bring a copy with you on the day of surgery. - Leave ALL valuables and money at home or with family members. For Outpatient Procedures: - YOU MUST HAVE A RESPONSIBLE MOLD FILLER TAKE YOU HOME. A STOCKROOM SELECTOR OR CABIN FURNISHINGS INSTALLER CANNOT BE MADE A RESPONSIBLE MOLD FILLER. - We recommend that a responsible person stays with you overnight to take care of you. - You cannot stay in a hotel alone after outpatient surgery. You will not be permitted to have yoursurgery, if you do not have someone to take care of you. If you already have an Advance Directive, please fax a copy to [phone] or email to for it to be added to your chart. If you do not have an Advance Directive, you can find the appropriate form and more information at [email or web address]. We recommend that youcomplete the Advance Directive form found on the website and bring it with you the day of your surgery. It can be witnessed and scanned into your chart that day. Hamida Samuels PA-C documented in this encounterA[facility] History and physical note * Hamida Samuels PA-C - 04/20/2023 2:20 PM EDT HISTORY AND PHYSICAL EXAMINATION SERVICE DATE: 04/20/2023 SERVICE TIME: 3:41 PM PRIMARY CARE PHYSICIAN: Maribel Fay MD REASON FOR VISIT: Charlette Farmer is a 88 year old female who is scheduled for Procedure(s): DECOMPRESSION NERVE MEDIAN CARPAL TUNNEL (Right) at the request of Dr. Savana De Oliveira for consultation. My final recommendation will be communicated back to the requesting physician by way of shared medical record or letter. Subjective The patient has the following: ACTIVE PROBLEM LIST Diverticulosis of Colon Pernicious Anemia Stage 3b Chronic Kidney Disease (Hcc) Pad (Peripheral Artery Disease) (Hcc) Essential Hypertension Mixed Hyperlipidemia Dm Type 2 With Diabetic Peripheral Neuropathy (Hcc) Trigger Middle Finger of Right Hand Trigger Finger, Left Ring Finger Restless Leg Syndrome Type 2 Diabetes Mellitus With Stage 3b Chronic Kidney Disease, With Long-Term Current Use of Insulin (Hcc) Type 2 Diabetes Mellitus With Diabetic Peripheral Angiopathy Without Gangrene, With Long-Term Current Use of Insulin (Hcc) Hypertensive Kidney Disease With Stage 3b Chronic Kidney Disease (Hcc) Carpal Tunnel Syndrome, Right COVID-19 Immunization Status Overdue - COVID-19 VACCINE (6 - Pfizer series) Overdue since 11/13/2022 07/13/2022 Imm Admin: COVID-19 vaccine, age 12+ yr, bivalent (PFIZER-BIONTECH) 01/22/2022 Imm Admin: COVID-19 original vaccine, age 12+ yr, monovalent (PFIZER- BIONTECH - PURPLE TOP) 06/20/2021 Imm Admin: COVID-19 original vaccine, age 12+ yr, monovalent (PFIZER- BIONTECH - PURPLE TOP) Only the first 3 history entries have been loaded, but more history exists. CHIEF COMPLAINT: Pre-anesthesia optimization HPI: Charlette Farmer is a 88 year old female presenting for pre-anesthesia consultation. Pt has history of right hand numbness and tingling that is now almost constant. It worsens at night and whenknitting. Above procedure recommended to manage symptoms. Procedure scheduled on 05/12/2023 at [facility]. REVIEW OF SYSTEMS: General: No weight loss, malaise or fevers. Neurological: + RLS, + hearing aides Positive for: peripheral neuropathy. Negative for: multiple sclerosis, Parkinson's disease, seizures and strokes. Respiratory: Positive for: tobacco use (former smoker, quit 1973, 21 pack year hx). Negative for: asthma, COPD, current cough, dyspnea, URI < 2 weeks and obstructive sleep apnea. Cardiovascular: Positive for: hyperlipidemia, hypertension and PVD (no symptomatic claudication) Negative for: arrhythmia, atrial fibrillation, CAD, chest pain, DVT/PE and murmur/valvular heart disease. GI: Positive for: diverticulitis Negative for: dysphagia, GERD, heartburn, irritable bowel syndrome, inflammatory bowel disease, liver disease and ETOH >2 drinks/day. : Positive for: urinary incontinence and renal failure. Patient's renal failure is chronic. Negative for: dysuria, frequent urination, nephrolithiasis, nocturia >1 time per night, urgency and urinary tract infection. 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 Patient's diabetes mellitus is controlled by insulin and oral agents. Negative for: hypothyroidism and steroid for chronic problem. Hematology: No history of bleeding or clotting disorder. Patient is not taking anti-coagulation or platelet medications. No history of hematological symptoms or problems. Positive for: anemia. Oncology: H/o cervical cancer s/p hysterectomy Psych: No history of psychiatric symptoms or problems. Musculoskeletal: Positive for: back pain (neck pain occasionally, h/o spinal fusion 50 years ago). Skin: Negative for lesions, rash and itching. PAST MEDICAL HISTORY Diagnosis Date Arthritis Benign neoplasm of colon Carpal tunnel syndrome, right Chronic kidney disease, stage 3 (HCC) Diverticulitis 10/10/2020 Diverticulosis of colon (without mention of hemorrhage) Gout History of transfusion Internal hemorrhoids without mention of complication Lumbago Malignant neoplasm of corpus uteri, except isthmus (HCC) 1996 Uterine cancer Other and unspecified hyperlipidemia PAD (peripheral artery disease) ([facility]) 2013 Mild LLE Pernicious anemia Restless leg syndrome Rotator cuff tendinitis left Trigger finger, right middle finger Seen by Dr. Burns 2015 Type II or unspecified type diabetes mellitus without mention of complication, uncontrolled Unspecified essential hypertension PAST SURGICAL HISTORY Procedure Laterality Date ABDOMINAL SURGERY HX APPENDECTOMY 1952 BACK SURGERY HX CHOLECYSTECTOMY 11/28/2011 COLONOSCOPY FLX DX W/COLLJ SPEC WHEN PFRMD 2001 out of state sigmoidoscopy COLONOSCOPY FLX DX W/COLLJ SPEC WHEN PFRMD 10/22/2013 Colonoscopy COLONOSCOPY GEN ANES 01/07/2021 Dr. Phillips, Polyps. repeat in 3 years. COLONOSCOPY W/BIOPSY SINGLE/MULTIPLE 11/12/2008 DILATION & CURETTAGE DX&/THER NONOBSTETRIC 1965 Dilation & curettage EGD 01/07/2021 EYE SURGERY HX LAMINECTOMY W/O FFD 09/20 VERT SEG LUMBAR 1971 Laminectomy, lumbar, fusion PAST SURGICAL HISTORY OF Left 09/01/2017 Trigger finger release of left ringer finger TONSILLECTOMY HX TUBAL LIGATION HX VAGINAL HYSTERECTOMY VAGINAL HYSTERECTOMY UTERUS 250 GM/< 1997 Hysterectomy, vaginal FAMILY HISTORY Problem Relation Age of Onset Cancer Mother breast, lung cancer was heavy smoker Diabetes Maternal Grandmother Diabetes Maternal Grandfather other (no siblings) Maternal Grandfather Social History Tobacco Use Smoking status: Former Packs/day: 1.00 Years: 21.00 Total pack years: 21.00 Types: Cigarettes Start date: 11/23/1952 Quit date: 09/19/1973 Years since quittin.6 Smokeless tobacco: Never Vaping Use Vaping Use: Never used Substance Use Topics Alcohol use: Yes Comment: occas glass of wine Drug use: No Prior to Admission medications as of 04/20/23 1422 Medication Sig Last Dose Taking blood sugar diagnostic (ACCU-CHEK JORGE PLUS TEST STRP) test strip Check blood sugar three times daily Taking Yes spironolactone-hctz 25/25 (ALDACTAZIDE) 25-25 mg per tablet Take 0.5 tablets by mouth once daily. Taking Yes metoprolol tartrate, short acting, (LOPRESSOR) 25 mg tablet Take 1 tablet by mouth twice daily. Taking Yes rosuvastatin (CRESTOR) 20 mg tablet Take 1 tablet by mouth daily at bedtime. Taking Yes insulin glargine (LANTUS SOLOSTAR U-100 INSULIN) 100 unit/mL (3 mL) Inject 36 Units subcutaneously daily at bedtime. Taking Yes lisinopril 2.5 mg tablet Take 1 tablet by mouth once daily. Taking Yes pramipexole (MIRAPEX) 0.25 mg tablet Take 1 tablet by mouth daily at bedtime. Taking Yes allopurinol (ZYLOPRIM) 100 mg tablet Take 1 tablet by mouth twice daily. Taking Yes glipiZIDE (GLUCOTROL XL) 2.5 mg 24 hr tablet Take 1 tablet by mouth once daily. Yes Insulin [place], Disposable, (PEN NEEDLE) 29 gauge x 1/2 One needle once daily. Dx: 250.02 Insulin: yes Taking Yes Lancets (ACCU-CHEK SOFTCLIX LANCETS) lancets Use Three times daily to check blood sugar Taking Yes ammonium lactate (LAC-HYDRIN) 12 % lotion Apply 1 application to affected area as needed for Dry Skin. Taking Yes melatonin 3 mg Take by mouth daily at bedtime. Taking Yes COMPOUNDED PRESCRIPTION Cock up wrist splint, right Medium. To be worn nightly to prevent carpal tunnel symptoms. Dx: carpal tunnel right Taking Yes Cholecalciferol, Vitamin D3, 1,000 unit cap Take 1 capsule by mouth once daily. Taking Yes cyanocobalamin (VITAMIN B-12) 1,000 mcg Tab Take 1 tablet by mouth once daily. Dx: pernicious anemia Taking Yes Blood-Glucose Meter, Drum-type (ACCU-CHEK COMPACT PLUS CARE) Misc Kit 1 Each. Accu-Check Compact Plus Meter Diagnosis: Diabetes Mellitus Taking Yes ASPIRIN 81 MG TAB Take one (1) tablet daily . Taking Yes spironolactone-hctz 25/25 (ALDACTAZIDE) 25-25 mg per tablet Take 0.5 tablets by mouth once daily. Patient not taking: Reported on 04/20/2023 Not Taking pramipexole (MIRAPEX) 0.25 mg tablet Take 1 tablet by mouth daily at bedtime. Patient not taking: Reported on 04/20/2023 Not Taking metoprolol tartrate, short acting, (LOPRESSOR) 25 mg tablet Take 1 tablet by mouth twice daily. Patient not taking: Reported on 04/20/2023 Not Taking No medication comments found. ALLERGIES Allergen Reactions Lipitor [Atorvastat* Intolerance myalgia Simvastatin Intolerance myalgia Objective PHYSICAL EXAM: General: alert and oriented and healthy appearance. Pertinent negatives noted - not distressed. Skin: normal color, no rash or lesions. HEENT: EOM intact and pupils equal round. Pertinent negatives noted - no carotid bruit. Cardiovascular: regular rate and rhythm, normal S1 and S2, no rub, murmurs, or gallop. Respiratory: normal breath sounds, no wheezes or crackles. No chest wall deformity or tenderness. Abdomen: soft. Pertinent negatives noted - not tender. Extremities: no deformity, no edema or tenderness, no joint swelling or clubbing. Neurological: normal cognition and motor skills. Gait normal. No weakness or sensory deficit. PAIN ASSESSMENT: VITALS: BP 112/56 Pulse 55 Temp (Src) 97.4 (Temporal) Resp 16 Ht 5' 1.25 (1.56m) Wt 170 lb (77.1kg) SpO2 97% BMI 31.85 kg/(m^2). Diagnostic tests reviewed for today's visit: Lab Value Units Date High Low HB 13.0 g/dL 11/09/2022 15.5 11.5 HCT 40.1 % 11/09/2022 46.0 36.0 WBC 8.59 k/uL 11/09/2022 11.00 3.70 PLT 235 k/uL 11/09/2022 400 150 NA 135 mmol/L 02/08/2023 144 136 K 5.1 mmol/L 02/08/2023 5.1 3.7 GLUC 138 mg/dL 02/08/2023 99 74 BUN 31 mg/dL 02/08/2023 21 7 CREAT 1.55 mg/dL 02/08/2023 0.96 0.58 PTSEC No results within date range. INR No results within date range. APTT No results within date range. ALT 10 U/L 02/08/2023 38 7 AST 23 U/L 02/08/2023 35 13 TBILI 0.4 mg/dL 02/08/2023 1.3 0.2 TSH No results within date range. Lab Value Units Date High Low HCGQT No results within date range. UHCG No results within date range. HCG, BODY* No results within date range. Lab Value Units Date High Low ABORHD No results within date range. ABSCREEN No results within date range. Hemoglobin A1C (%) Date Value 02/08/2023 8.2 11/09/2022 7.8 08/09/2022 7.4 05/05/2022 8.1 02/02/2022 7.6 11/03/2021 7.9 07/22/2021 7.8 01/19/2021 8.3 10/09/2020 8.6 07/18/2020 9.5 No results found for this or any previous visit (from the past 8760 hour(s)). No results found for this or any previous visit (from the past 07387 hour(s)). Assessment Patient has the following medical conditions which may affect cindy-operative course: DM type 2 with diabetic peripheral neuropathy (HCC) Assessment: reported by patient, no meds Restless leg syndrome Assessment: Stable on RX PAD (peripheral artery disease) (HCC) Assessment: mild, denies claudication Essential hypertension Assessment: BP today in clinic 112/56. Stable on RX. Mixed hyperlipidemia Assessment: Stable on RX Diverticulosis of colon Assessment: reports h/o hospitalization a few years ago, no current issues Stage 3b chronic kidney disease (HCC) Assessment: Follows nephrology. BMP Latest Ref Rng & Units 02/08/2023 08/09/2022 05/05/2022 GLUCOSE 74 - 99 mg/dL 138(H) 99 177(H) BUN 7 - 21 mg/dL 31(H) 25(H) 32(H) CREATININE 0.58 - 0.96 mg/dL 1.55(H) 1.39(H) 1.56(H) SODIUM 136 - 144 mmol/L 135(L) 137 137 POTASSIUM 3.7 - 5.1 mmol/L 5.1 5.0 4.2 CHLORIDE 97 - 105 mmol/L 100 103 101 CO2 22 - 30 mmol/L 25 22 23 ANION GAP 9 - 18 mmol/L 10 12 13 CALCIUM, TOTAL 8.5 - 10.2 mg/dL 10.2 9.7 10.1 eGFR >=60 mL/min/1.73m 32(L) 37(L) 32(L) EGFR- - - - - EGFR-ALL OTHER RACES . - - - Type 2 diabetes mellitus with stage 3b chronic kidney disease, with long-term current use of insulin (HCC) Assessment: Reports compliance to medication. Reports BS checks daily 90-130. Following with endo. Encouraged lifestyle modifications. Hemoglobin A1C (%) Date Value 02/08/2023 8.2 11/09/2022 7.8 11/03/2021 7.9 07/22/2021 7.8 ) Pernicious anemia Assessment: Hemoglobin (g/dL) Date Value 11/09/2022 13.0 01/16/2021 12.1 Hematocrit (%) Date Value 11/09/2022 40.1 01/16/2021 36.5 WBC (k/uL) Date Value 11/09/2022 8.59 01/16/2021 8.61 [place] Activity Status Index: METS: Climb a flight of stairs or walk up a hill (5.50 METs) DASI Score: 5.5 Patient denies any chest pain or undue shortness of breath with the above physical activity. Clinical Frailty Scale: 3. Well, with treated comorbid disease STOP-Bang Score: Snores loudly Has or is being treated for high blood pressure Patient over 50 years old Denies feeling tired, fatigued, or sleepy during the daytime Has not been observed to stop breathing or choking/gasping during sleep BMI less than or equal to 35 kg/m^2 Does not have a large neck Non-male patient STOP-Bang Score: 3 [id number] Score: Age: >=75 Sex: female CHF history: No Hypertension history: Yes Vascular disease history: Yes Diabetes history: Yes [id number] Score: 6 ARISCAT Score: Age: >80 Preoperative SpO2: >=96% Respiratory infection in the last month: No Preoperative anemia: Yes Surgical incision: peripheral Duration of surgery: <2 hrs Emergency procedure: No ARISCAT Score: 27 ASA Class: 3 ANESTHESIA FINDINGS: Intubation History: No history of difficult intubation. No abnormal airway history Significant Anesthesia Considerations: none Airway History: No history of difficult airway No abnormal airway history I - PHYSICAL EVALUATION AIRWAY Patient intubated: No. Tracheostomy tube not present Mallampati: I. TM distance: >3 FB. Neck ROM: full ROM without neurological symptoms. Mouth opening: adequate. Short neck: no. Thick neck: no Lip Bite Test: II DENTAL Dental findings: missing tooth/teeth. Dentures, upper: complete. Dentures, lower: partial. II - ANESTHESIA PLAN ASA Score: 3 Anesthetic Plan: MAC Beta Mee Monitoring Plan Post Procedure Analgesic Plan Prepared for Surgery: optimally prepared for surgery. Per PACC guidelines no other testing is required CONSULTS: Patient does not require consults for optimization at this time Planned Anesthetic: MAC The Following Tests/Procedures Have Been Initiated: No orders of the defined types were placed in this encounter. Instructions Given to Patient: Instructions located in the after visit summary. Patient given verbal and written preop instructions and voices comprehension and compliance. SIGNATURE: Hamida Samuels PA-C PATIENT NAME: Charlette Farmer DATE: April 20, 2023 TIME: 8:09 AM PAGER/CONTACT #: documented in this encounterAult[facility]07-24-2023 Miscellaneous Notes* Telephone Encounter - Roya Schafer RN - 04/11/2023 9:59 AM EDT Pt returned call and given provider's message below with verbalized understanding. * Telephone Encounter - Kassandra Harrison LPN - 04/11/2023 8:57 AM EDT Message left for patient to call office back for update. Kassandra Harrison LPN * Telephone Encounter - Tosha Pelaez APRN.CNP - 04/11/2023 7:08 AM EDT Please call patient and let her know her EMG testing shows carpal tunnel severe in degree on the right and minimal on the left. Follow-up with ortho as scheduled. Tosha Pelaez APRN.CNP documented in this encounterA[facility]06-22-2023 History of Present illness Narrative* Karel Jack - 03/10/2023 2:50 PM EDT Last saw Tosha Pelaez: 02/08/23 Subjective: Patient presents to clinic c/o painful toenails. They state that the nails are especially painful with shoe gear and pressure. Patient states that nails 1-5 b/l are painful. Patient admits to being diabetic. No other pedal complaints at this time. Patient states no change in medications or medical history since last visit. Objective: Patient presents to clinic ambulating in [facility] Vasc: DP and PT pulses are palpable bilateral. CFT is less than 5 seconds bilateral. Skin temperature is warm to cool proximal to distal bilateral. There is no edema or varicosities noted. Neuro: Protective sensation is intact to the foot and toes when tested with the 5.07 SWM bilateral.Vibratory sensation is decreased at the hallux IPJ bilateral. The hallux is downgoing bilateral. Derm: Nails 1-5 b/l are painful, discolored-yellow, thick, crumbly, dystrophic and with subungal debris. Skin is of normal turgor, texture and hair growth is present bilateral. There are no hyperkeratosis, ulcerations, scars, verruca or other lesions noted. Ortho: Muscle strength is 5/5 for all pedal groups tested. Ankle joint DF is decreased with the knee extended with no pain or crepitus noted. 1st MPJ ROM is decreased bilateral. Assessment: (E11.42) DM type 2 with diabetic peripheral neuropathy (HCC) (primary encounter diagnosis) (B35.1) Onychomycosis (M79.674) Pain in toe of right foot (M79.675) Pain in toe of left foot Plan: Patient was seen and evaluated. Nails 1-5 bilateral were debrided in length and thickness. Patient was instructed on the continued importance of diabetic foot care along with proper diet and keeping their blood sugar under control to prevent complications. Patient is to RTC in 3-4 months. Karel Santiago DPM * Tanvir Mark MA - 03/10/2023 2:10 PM EDT Patient presents here today for 3 month follow up diabetic nail care. Patient denies any sort of pain today. documented in this encounterAult[facility]06-22-2023 Instructions* Patient Instructions* Karel Santiago - 03/10/2023 2:50 PM EDT Diabetes Foot Care Instructions When you have diabetes, proper foot care is very important. Poor foot care may lead to amputation of a foot or leg. As a person with diabetes, you are more vulnerable to foot problems, because diabetes can damage your nerves and reduce blood flow to your feet. Here are some diabetes foot care tips to follow: Wash and Dry Your Feet Daily Use mild soaps Use warm water Pat your skin dry; do not rub. Thoroughly dry your feet. After washing, use lotion on your feet to prevent cracking. Do not put lotion between your toes. Examine Your Feet Each Day Check the tops and bottoms of your feet. Have someone else look at your feet if you cannot see them. Check for dry, cracked skin. Look for blisters, cuts, scratches, or other sores. Check for redness, increased warmth, or tenderness when touching any area of your feet. Check for ingrown toenails, corns, and calluses. If you get a blister or sore from your shoes, do not pop it. Apply a bandage and wear a differentpair of shoes. Take Care of Your Toenails Cut toenails after bathing, when they are soft. Cut toenails straight across and smooth with a nail file. Avoid cutting into the corners of toes. Do not cut cuticles. If you have neuropathy (or decreased sensation in your feet) a clinical informatics director should always cut your toenails. Be Careful When Exercising Walk and exercise in comfortable shoes. Do not exercise when you have open sores on your feet. Protect Your Feet With Shoes and Socks Never go barefoot. Always protect your feet by wearing shoes or hard-soled slippers or footwear. Avoid shoes with high heels and pointed toes. Avoid shoes that expose your toes or heels (such as open-toed shoes or sandals). These types of shoes increase your risk for injury and potential infections. Try on new footwear with the type of socks you usually wear. Do not wear new shoes for more than an hour at a time. Change your socks daily. Look and feel inside your shoes before putting them on to make sure there are no foreign objects orrough areas. Avoid tight socks. Wear natural-fiber socks (cotton, wool, or a cotton-wool blend). Wear special shoes if your health care provider recommends them. Wear shoes/boots that will protect your feet from various weather conditions (cold, moisture, etc.). Make sure your shoes fit properly. If you have neuropathy (nerve damage), you may not notice that your shoes are too tight. Perform the footwear test described below. Footwear Test Use this simple test to see if your shoes fit correctly: Stand on a piece of paper. (Make sure you are standing and not sitting, because your foot changes shape when you stand.) Trace the outline of your foot. Trace the outline of your shoe. Compare the tracings: Is the shoe too narrow? Is your foot crammed into the shoe? The shoe should be at least 1/2 inch longer than your longest toe and as wide as your foot. Proper Shoe Choices The following types of shoes are best for people with diabetes Closed toes and heels Leather uppers without a seam inside At least 1/2 inch extra space at the end of your longest toe Inside of shoe should be soft with no rough areas Outer sole should be made of stiff material Shoes should be at least as wide as your feet Tips for Foot Care in Diabetes Don't wait to treat a minor foot problem if you have diabetes. Follow your health care provider's guidelines and first aid guidelines. Report foot injuries and infections to your health care provider immediately. Check water temperature with your elbow, not your foot. Do not use a heating pad on your feet. Do not cross your legs. Do not self-treat your corns, calluses, or other foot problems. Go to your health care provider or clinical informatics director to treat these conditions. documented in this encounterAult[facility]06-22-2023 Miscellaneous Notes* Telephone Encounter - Roya Schafer RN - 03/10/2023 12:36 PM EDT Patient has been identified by name and date of : Yes, Provider Sumeet Date 03-10-23 Time 12:45 pm Pharmacy phones for refill(s): Requested Prescriptions Pending Prescriptions Disp Refills spironolactone-hctz 25/25 (ALDACTAZIDE) 25-25 mg per tablet 45 tablet 1 Sig: Take 0.5 tablets by mouth once daily. metoprolol tartrate, short acting, (LOPRESSOR) 25 mg tablet 180 tablet 1 Sig: Take 1 tablet by mouth twice daily. Date of last office visit with pcp: 02-08-23. Next appt: 05-11-23 Last 2 Encounter Wt Readings: Date: Wt: 02/08/2023 77.2 kg (170 lb 3.2 oz) 11/09/2022 77.1 kg (170 lb) Previous labs/tests for medication: Blood Pressure: BUN (mg/dL) Date Value 02/08/2023 31 11/03/2021 26 Sodium (mmol/L) Date Value 02/08/2023 135 11/03/2021 138 Last 1 Encounter BP Readings: Date: BP: 02/08/2023 96/56 Liver Function: ALT (U/L) Date Value 02/08/2023 10 11/03/2021 12 AST (U/L) Date Value 02/08/2023 23 11/03/2021 21 Please advise. Thank you. Roya Schafer RN documented in this encounterAultman [facility]05-11-2023 Miscellaneous Notes* Telephone Encounter - Marylou Sutherland RN - 01/27/2023 10:37 AM EDT Patient has been identified by name and date of : Yes, Marylou Sutherland RN Date 01/27/2023 Time Patient phones for refill(s): Requested Prescriptions Pending Prescriptions Disp Refills lisinopril 2.5 mg tablet 90 tablet 1 Sig: Take 1 tablet by mouth once daily. pramipexole (MIRAPEX) 0.25 mg tablet 90 tablet 1 Sig: Take 1 tablet by mouth daily at bedtime. Date of last office visit with pcp: 11/09/2022 Future appt: 02/08/2023 Last 2 Encounter Wt Readings: Date: Wt: 11/09/2022 77.1 kg (170 lb) 08/09/2022 76.7 kg (169 lb 3.2 oz) Previous labs/tests for medication: Blood Pressure: BUN (mg/dL) Date Value 08/09/2022 25 11/03/2021 26 Sodium (mmol/L) Date Value 08/09/2022 137 11/03/2021 138 Last 1 Encounter BP Readings: Date: BP: 11/09/2022 104/60 Liver Function: ALT (U/L) Date Value 08/09/2022 12 11/03/2021 12 AST (U/L) Date Value 08/09/2022 23 11/03/2021 21 Please advise. Thank you. Marylou Sutherland RN documented in this encounterA[facility]03-16-[facility] History of Present illness Narrative* Karel Jack - 12/02/2022 10:16 AM EDT Last saw Dr. Fay: 11/09/22 Subjective: Patient presents to clinic c/o painful toenails. They state that the nails are especially painful with shoe gear and pressure. Patient states that nails 1-5 b/l are painful. Patient admits to being diabetic No other pedal complaints at this time. Patient states no change in medications or medical history since last visit. Objective: Patient presents to clinic ambulating in [facility] Vasc: DP and PT pulses are palpable bilateral. CFT is less than 5 seconds bilateral. Skin temperature is warm to cool proximal to distal bilateral. There is no edema or varicosities noted. Neuro: Protective sensation is intact to the foot and toes when tested with the 5.07 SWM bilateral.Vibratory sensation is decreased at the hallux IPJ bilateral. The hallux is downgoing bilateral. Derm: Nails 1-5 b/l are painful, discolored-yellow, thick, crumbly, dystrophic and with subungal debris. Skin is of normal turgor, texture and hair growth is present bilateral. There are no hyperkeratosis, ulcerations, scars, verruca or other lesions noted. Ortho: Muscle strength is 5/5 for all pedal groups tested. Ankle joint DF is full with the knee extended with no pain or crepitus noted. 1st MPJ ROM is full bilateral. Assessment: (E11.42) DM type 2 with diabetic peripheral neuropathy (HCC) (primary encounter diagnosis) (B35.1) Onychomycosis (M79.674) Pain in toe of right foot (M79.675) Pain in toe of left foot Plan: Patient was seen and evaluated. Nails 1-5 bilateral were debrided in length and thickness. Patient was instructed on the continued importance of diabetic foot care along with proper diet and keeping their blood sugar under control to prevent complications. Patient is to RTC in 3-4 months. Karel Santiago DPM * Paris Ceja RN - 12/02/2022 9:45 AM EDT Patient presents with: Left Foot - Established Patient, Follow Up, Diabetic Foot Care Right Foot - Established Patient, Follow Up, Diabetic Foot Care Patient presents for 3 month follow up for nail care. Denies any pain or problems with the feet today. documented in this encounterA[facility]03-16-2023 Instructions* Patient Instructions* Karel Santiago - 12/02/2022 10:16 AM EDT Diabetes Foot Care Instructions When you have diabetes, proper foot care is very important. Poor foot care may lead to amputation of a foot or leg. As a person with diabetes, you are more vulnerable to foot problems, because diabetes can damage your nerves and reduce blood flow to your feet. Here are some diabetes foot care tips to follow: Wash and Dry Your Feet Daily Use mild soaps Use warm water Pat your skin dry; do not rub. Thoroughly dry your feet. After washing, use lotion on your feet to prevent cracking. Do not put lotion between your toes. Examine Your Feet Each Day Check the tops and bottoms of your feet. Have someone else look at your feet if you cannot see them. Check for dry, cracked skin. Look for blisters, cuts, scratches, or other sores. Check for redness, increased warmth, or tenderness when touching any area of your feet. Check for ingrown toenails, corns, and calluses. If you get a blister or sore from your shoes, do not pop it. Apply a bandage and wear a differentpair of shoes. Take Care of Your Toenails Cut toenails after bathing, when they are soft. Cut toenails straight across and smooth with a nail file. Avoid cutting into the corners of toes. Do not cut cuticles. If you have neuropathy (or decreased sensation in your feet) a clinical informatics director should always cut your toenails. Be Careful When Exercising Walk and exercise in comfortable shoes. Do not exercise when you have open sores on your feet. Protect Your Feet With Shoes and Socks Never go barefoot. Always protect your feet by wearing shoes or hard-soled slippers or footwear. Avoid shoes with high heels and pointed toes. Avoid shoes that expose your toes or heels (such as open-toed shoes or sandals). These types of shoes increase your risk for injury and potential infections. Try on new footwear with the type of socks you usually wear. Do not wear new shoes for more than an hour at a time. Change your socks daily. Look and feel inside your shoes before putting them on to make sure there are no foreign objects orrough areas. Avoid tight socks. Wear natural-fiber socks (cotton, wool, or a cotton-wool blend). Wear special shoes if your health care provider recommends them. Wear shoes/boots that will protect your feet from various weather conditions (cold, moisture, etc.). Make sure your shoes fit properly. If you have neuropathy (nerve damage), you may not notice that your shoes are too tight. Perform the footwear test described below. Footwear Test Use this simple test to see if your shoes fit correctly: Stand on a piece of paper. (Make sure you are standing and not sitting, because your foot changes shape when you stand.) Trace the outline of your foot. Trace the outline of your shoe. Compare the tracings: Is the shoe too narrow? Is your foot crammed into the shoe? The shoe should be at least 1/2 inch longer than your longest toe and as wide as your foot. Proper Shoe Choices The following types of shoes are best for people with diabetes Closed toes and heels Leather uppers without a seam inside At least 1/2 inch extra space at the end of your longest toe Inside of shoe should be soft with no rough areas Outer sole should be made of stiff material Shoes should be at least as wide as your feet Tips for Foot Care in Diabetes Don't wait to treat a minor foot problem if you have diabetes. Follow your health care provider's guidelines and first aid guidelines. Report foot injuries and infections to your health care provider immediately. Check water temperature with your elbow, not your foot. Do not use a heating pad on your feet. Do not cross your legs. Do not self-treat your corns, calluses, or other foot problems. Go to your health care provider or clinical informatics director to treat these conditions. documented in this encounterAultman [facility]02-23-2023 Miscellaneous Notes* Telephone Encounter - Duyen Bey LPN - 11/11/2022 1:31 PM EST Phoned patient and reviewed provider's message with her and she voiced understanding. * Telephone Encounter - Maribel Fay MD - 11/11/2022 1:23 PM EST Rx sent to mail order for Crestor 20 mg daily. Call with side effects, most common being muscle aches. Will recheck in 3 months. * Telephone Encounter - Colette Gilman LPN - 11/11/2022 11:54 AM EST Spoke with pt and information listed below given. Pt verbalizes understanding. Pt agrees to try the Crestor. Please send to [facility] and she wants a 3 month supply sent. She will continue with the Pravastatin till the new medication comes. * Telephone Encounter - Sloane Langley Ma - 11/10/2022 5:15 PM EST Left message for patient to call office back Sloane Langley Ma * Telephone Encounter - Sloane Langley Ma - 11/10/2022 5:13 PM EST ----- Message from Maribel Fay MD sent at 11/10/2022 1:26 PM EST ----- Diabetes controlled with A1c <8. Up from 7.4 to 7.8. recommend she continue to work on low carb diet and continue current regimen. Recheck in 3 months. Cholesterol is up from 1 year ago. Patient on max dose pravastatin. We could consider switching herto Crestor which is high intensity statin to see if her cholesterol improves. It is possible she would have muscle aches like she has with other statins. If agreeable, will send in new rx and stop pravastatin. Other labs unremarkable. documented in this encounterA[facility]02-22-2023 History and physical note * Sloane Langley Ma - 11/10/2022 5:13 PM EST documented in this encounterAultman [facility]02-21-2023 History of Present illness Narrative* Maribel Fay MD - 11/09/2022 2:03 PM EST Chief Complaint Patient presents with: Follow Up: 3 month follow up- left handed numbness reports ongoing HPI Charlette Farmer is a 87 year old female who presents here today for Above Complaints.. DIABETES MELLITUS: Ms. Farmer was last seen 3 months ago. Since our last visit she denies excessive thirst or increased frequency of urination, numbness, tingling or pain in extremities, new or unusual visual symptoms, and low sugar/hypoglycemic reactions. Follows a diabetic diet most of the time.She is compliant with medication(s) and is tolerating med(s) without any side effects. She reports checking her glucose on a once a day schedule with sugars in the fasting typically <150 range. Patient's last HgA1C was Hemoglobin A1C (%) Date Value 08/09/2022 7.4 05/05/2022 8.1 11/03/2021 7.9 07/22/2021 7.8 ) Last Ophthalmology exam was within the past 12 months Last Podiatry exam was within the past 3 months States carpal tunnel in her right hand continues to worsen. Has numbness in all of her fingers. Notto the point she wants surgery. Still able to knit. Using cock up wrist splint at night. Does not ice her wrist or do home exercises/stretches. No recent gout flares on allopurinol. BP well controlled on current regimen. RLS: Mirapex working well for RLS. Sleeping well. Not needing to get up and walk. Past medical history, appointments, medications, allergies reviewed. Previous Medical History PAST MEDICAL HISTORY Diagnosis Date Arthritis Benign neoplasm of colon Carpal tunnel syndrome, right Chronic kidney disease, stage 3 (HCC) Diverticulitis 10/10/2020 Diverticulosis of colon (without mention of hemorrhage) Gout History of transfusion Internal hemorrhoids without mention of complication Lumbago Malignant neoplasm of corpus uteri, except isthmus (HCC) 1996 Uterine cancer Other and unspecified hyperlipidemia PAD (peripheral artery disease) ([facility]) 2013 Mild LLE Pernicious anemia Restless leg syndrome Rotator cuff tendinitis left Trigger finger, right middle finger Seen by Dr. Burns 2016 Type II or unspecified type diabetes mellitus without mention of complication, uncontrolled Unspecified essential hypertension Previous Surgical History PAST SURGICAL HISTORY Procedure Laterality Date ABDOMINAL SURGERY HX APPENDECTOMY 1952 BACK SURGERY HX CHOLECYSTECTOMY 11/28/2011 COLONOSCOPY FLX DX W/COLLJ SPEC WHEN PFRMD 2001 out of state sigmoidoscopy COLONOSCOPY FLX DX W/COLLJ SPEC WHEN PFRMD 10/22/2013 Colonoscopy COLONOSCOPY GEN ANES 01/07/2021 Dr. Phillips, Polyps. repeat in 3 years. COLONOSCOPY W/BIOPSY SINGLE/MULTIPLE 11/12/2008 DILATION & CURETTAGE DX&/THER NONOBSTETRIC 1965 Dilation & curettage EGD 01/07/2021 EYE SURGERY HX LAMINECTOMY W/O FFD 09/20 VERT SEG LUMBAR 1971 Laminectomy, lumbar, fusion PAST SURGICAL HISTORY OF Left 09/01/2017 Trigger finger release of left ringer finger TONSILLECTOMY HX TUBAL LIGATION HX VAGINAL HYSTERECTOMY VAGINAL HYSTERECTOMY UTERUS 250 GM/< 1997 Hysterectomy, vaginal Family History FAMILY HISTORY Problem Relation Age of Onset Cancer Mother breast, lung cancer was heavy smoker Diabetes Maternal Grandmother Diabetes Maternal Grandfather other (no siblings) Maternal Grandfather Patient Allergies ALLERGIES Allergen Reactions Lipitor [Atorvastat* Intolerance myalgia Simvastatin Intolerance myalgia Current Medications Current Outpatient Medications on File Prior to Visit Medication Sig allopurinol (ZYLOPRIM) 100 mg tablet Take 100 mg by mouth twice daily. insulin glargine (LANTUS SOLOSTAR U-100 INSULIN) 100 unit/mL (3 mL) Inject 34 Units subcutaneously daily at bedtime. blood sugar diagnostic (ACCU-CHEK JORGE PLUS TEST STRP) test strip Check blood sugar three times daily Insulin [place], Disposable, (PEN NEEDLE) 29 gauge x 1/2 One needle once daily. Dx: 250.02 Insulin: yes Lancets (ACCU-CHEK SOFTCLIX LANCETS) lancets Use Three times daily to check blood sugar spironolactone-hctz 25/25 (ALDACTAZIDE) 25-25 mg per tablet Take 0.5 tablets by mouth once daily. pravastatin (PRAVACHOL) 80 mg tablet Take 1 tablet by mouth once daily. pramipexole (MIRAPEX) 0.25 mg tablet Take 1 tablet by mouth daily at bedtime. metoprolol tartrate, short acting, (LOPRESSOR) 25 mg tablet Take 1 tablet by mouth twice daily. lisinopril 2.5 mg tablet Take 1 tablet by mouth once daily. glipiZIDE (GLUCOTROL XL) 2.5 mg 24 hr tablet Take 1 tablet by mouth once daily. ammonium lactate (LAC-HYDRIN) 12 % lotion Apply 1 application to affected area as needed for Dry Skin. melatonin 3 mg Take by mouth daily at bedtime. Cholecalciferol, Vitamin D3, 1,000 unit cap Take 1 capsule by mouth once daily. cyanocobalamin (VITAMIN B-12) 1,000 mcg Tab Take 1 tablet by mouth once daily. Dx: pernicious anemia Blood-Glucose Meter, um-type (ACCU-CHEK COMPACT PLUS CARE) [place] Kit 1 Each. Accu-Check Compact Plus Meter Diagnosis: Diabetes Mellitus ASPIRIN 81 MG TAB Take one (1) tablet daily . COMPOUNDED PRESCRIPTION Cock up wrist splint, right Medium. To be worn nightly to prevent carpal tunnel symptoms. Dx: carpal tunnel right No current facility-administered medications on file prior to visit. Social History Social History Tobacco Use Smoking status: Former Packs/day: 1.00 Years: 21.00 Pack years: 21.00 Types: Cigarettes Start date: [birth year]/23/1952 Quit date: 09/19/1973 Years since quittin.1 Smokeless tobacco: Never Vaping Use Vaping Use: Never used Substance Use Topics Alcohol use: Yes Comment: occas glass of wine Drug use: No Review of Symptoms REVIEW OF SYSTEMS GENERAL: No weight loss, malaise or fevers RESPIRATORY: Negative for cough, hemoptysis, wheezing, COPD, dyspnea or shortness of breath CARDIOVASCULAR: Negative for chest pain, leg swelling, hypertension, CHF or palpitations GI: No nausea, vomiting, or diarrhea SKIN: Negative for lesions, rash, and itching EXAM: BP 104/60 Pulse 62 Resp 16 Wt 77.1 kg (170 lb) SpO2 99% BMI 32.14 kg/m General Appearance: Well appearing, alert, in no acute distress, well-hydrated, well nourished.. Skin: Skin color, texture, turgor normal, no suspicious rashes or lesions. Lungs: Lungs clear to auscultation. No wheezing, rhonchi, rales.. Heart: RRR without murmur, gallop, or rubs. No ectopy. Abdomen: Normal abdominal exam, Abdomen soft, non-tender. Bowel sounds normal. No masses, organomegaly. Extremities: No deformities, edema, skin discoloration, clubbing or cyanosis. Good capillary refill. . Health Maintenance List SHINGRIX VACCINE(1 of 2) Never done DTAP,TDAP,TD(2 - Tdap) due on 06/06/2018 ADVANCE DIRECTIVE DISCUSSION due on 09/19/2022 DEPRESSION ASSESSMENT Never done LDL CHOLESTEROL due on 11/03/2022 DIABETIC FOOT EXAM due on 02/02/2023 HBA1C due on 02/06/2023 URINE ALBUMIN:CREATININE RATIO due on 08/09/2023 DILATED RETINAL EXAM due on 10/06/2023 BONE DENSITY Completed INFLUENZA Completed COVID-19 VACCINE Completed PNEUMOCOCCAL: 65+ Completed Data reviewed Component Latest Ref Rng & Units 05/05/2022 08/09/2022 Protein, Total 6.3 - 8.0 g/dL 7.4 7.3 Albumin 3.9 - 4.9 g/dL 5.0 (H) 4.9 Calcium 8.5 - 10.2 mg/dL 10.1 9.7 Bilirubin, Total 0.2 - 1.3 mg/dL 0.4 0.3 Alkaline Phosphatase 34 - 123 U/L 67 68 AST 13 - 35 U/L 18 23 ALT 7 - 38 U/L 11 12 Glucose 74 - 99 mg/dL 177 (H) 99 BUN 7 - 21 mg/dL 32 (H) 25 (H) Creatinine 0.58 - 0.96 mg/dL 1.56 (H) 1.39 (H) Sodium 136 - 144 mmol/L 137 137 Potassium 3.7 - 5.1 mmol/L 4.2 5.0 Chloride 97 - 105 mmol/L 101 103 CO2 22 - 30 mmol/L 23 22 Anion Gap 9 - 18 mmol/L 13 12 eGFR >=60 mL/min/1.73m 32 (L) 37 (L) Creatinine, Ur Random (UCRR) 20.0 - 300.0 mg/dL 86.0 Albumin, Urine Random mg/L 16.0 Albumin/Creat Ratio <30 mg/g 19 Hemoglobin A1C 4.3 - 5.6 % 8.1 (H) 7.4 (H) Estimated Average Glucose mg/dL 186 166 ASSESSMENT/PLAN: 1. DM type 2 with diabetic peripheral neuropathy (HCC) - ICD9: 250.60, 357.2, ICD10: E11.42 (primary diagnosis) improved control - Continue current medications - Blood glucose monitoring on a once a day schedule - Encouraged regular aerobic exercise and weight loss - Follow up in 3 months, sooner should any other issues arise. - Discussed diabetic education issues of meterman diabetic complications, hypoglycemic symptoms, hyperglycemic symptoms, diet, medications- side effects and need for compliance, importance of exercise, use and side effects of insulin, and importance of annual examinations with Opthalmology with patient. - PEN NEEDLE, DIABETIC 29 GAUGE X 1/2 - HGB A1C - LIPID PANEL, NONFASTING - PEN NEEDLE, DIABETIC 29 GAUGE X 1/2 2. Essential hypertension - ICD9: 401.9, ICD10: I10 - good control - Continue current medication(s) - Encouraged dietary sodium restriction/DASH diet - Recommended regular aerobic exercise. - Reviewed risks of HTN and principles of treatment - Goal of BP <140/90 3. Mixed hyperlipidemia - ICD9: 272.2, ICD10: E78.2 - to be determined upon return of lab results - Continue current medication. - Encouraged following a low fat, low cholesterol diet. - Discussed the benefits of regular aerobic exercise and weight loss. 4. Restless leg syndrome - ICD9: 333.94, ICD10: G25.81 Controlled on Mirapex. 5. Stage 3b chronic kidney disease (HCC) - ICD9: 585.3, ICD10: N18.32 - eGFR: Stable - Counseled on avoiding regular use of NSAIDs, adequate hydration, potential risk of IV dye - Recommend maintaining A1c < 7% - Counseled on renal diet (low sodium/low potassium/low phosphorus) 6. PAD (peripheral artery disease) (HCC) - ICD9: 443.9, ICD10: I73.9 Asymptomatic. Denies claudication. Due for repeat ANGIE. - PVR LEG [facility] 7. Pernicious anemia - ICD9: 281.0, ICD10: D51.0 Repeat - CBC + DIFF - VITAMIN B12 BLOOD 8. Idiopathic chronic gout without tophus, unspecified site - ICD9: 274.02, ICD10: M1A.00X0 Controlled on allopurinol. Recheck uric acid level. Work on gout diet. - URIC ACID BLOOD 9. Carpal tunnel syndrome, right - ICD9: 354.0, ICD10: G56.01 Worsening symptoms, but still tolerable. Discussed ice, home stretches, cock up wrist splint at night. Call if worsening. Marbiel Fay MD documented in this encounterAultman [facility]12-29-2022 Miscellaneous Notes* Telephone Encounter - Marylou Sutherland RN - 09/16/2022 12:18 PM EST Latoya with [employer] calls to request formulary prescription be dispensed which is Lantus Solo star instead of insulin glargine. Verbal ok given to Latoya to dispense formulary per insurance/patient request per note to pharmacy on order sent in 09/14/2022. Marylou Sutherland RN * Telephone Encounter - Tosha Pelaez APRN.CNP - 09/14/2022 3:10 PM EST Refilled today. Tosha Pelaez APRN.CNP documented in this encounterAultman Alliance [facility] Hospital12-27-2022 Miscellaneous Notes* Telephone Encounter - Elizabeth Logan LPN - 09/14/2022 1:49 PM EST Daughter calling, Patient is currently in [place], [place], she did not take enough medication with her, may not returned until 09/18/2023. Asking for enough med to get her through. Elizabeth Logan LPN documented in this encounterAultman Alliance [facility] Hospital12-13-2022 Instructions* Patient Instructions* Karel Santiago - 08/31/2022 9:51 AM EST Diabetes Foot Care Instructions When you have diabetes, proper foot care is very important. Poor foot care may lead to amputation of a foot or leg. As a person with diabetes, you are more vulnerable to foot problems, because diabetes can damage your nerves and reduce blood flow to your feet. Here are some diabetes foot care tips to follow: Wash and Dry Your Feet Daily Use mild soaps Use warm water Pat your skin dry; do not rub. Thoroughly dry your feet. After washing, use lotion on your feet to prevent cracking. Do not put lotion between your toes. Examine Your Feet Each Day Check the tops and bottoms of your feet. Have someone else look at your feet if you cannot see them. Check for dry, cracked skin. Look for blisters, cuts, scratches, or other sores. Check for redness, increased warmth, or tenderness when touching any area of your feet. Check for ingrown toenails, corns, and calluses. If you get a blister or sore from your shoes, do not pop it. Apply a bandage and wear a differentpair of shoes. Take Care of Your Toenails Cut toenails after bathing, when they are soft. Cut toenails straight across and smooth with a nail file. Avoid cutting into the corners of toes. Do not cut cuticles. If you have neuropathy (or decreased sensation in your feet) a clinical informatics director should always cut your toenails. Be Careful When Exercising Walk and exercise in comfortable shoes. Do not exercise when you have open sores on your feet. Protect Your Feet With Shoes and Socks Never go barefoot. Always protect your feet by wearing shoes or hard-soled slippers or footwear. Avoid shoes with high heels and pointed toes. Avoid shoes that expose your toes or heels (such as open-toed shoes or sandals). These types of shoes increase your risk for injury and potential infections. Try on new footwear with the type of socks you usually wear. Do not wear new shoes for more than an hour at a time. Change your socks daily. Look and feel inside your shoes before putting them on to make sure there are no foreign objects orrough areas. Avoid tight socks. Wear natural-fiber socks (cotton, wool, or a cotton-wool blend). Wear special shoes if your health care provider recommends them. Wear shoes/boots that will protect your feet from various weather conditions (cold, moisture, etc.). Make sure your shoes fit properly. If you have neuropathy (nerve damage), you may not notice that your shoes are too tight. Perform the footwear test described below. Footwear Test Use this simple test to see if your shoes fit correctly: Stand on a piece of paper. (Make sure you are standing and not sitting, because your foot changes shape when you stand.) Trace the outline of your foot. Trace the outline of your shoe. Compare the tracings: Is the shoe too narrow? Is your foot crammed into the shoe? The shoe should be at least 1/2 inch longer than your longest toe and as wide as your foot. Proper Shoe Choices The following types of shoes are best for people with diabetes Closed toes and heels Leather uppers without a seam inside At least 1/2 inch extra space at the end of your longest toe Inside of shoe should be soft with no rough areas Outer sole should be made of stiff material Shoes should be at least as wide as your feet Tips for Foot Care in Diabetes Don't wait to treat a minor foot problem if you have diabetes. Follow your health care provider's guidelines and first aid guidelines. Report foot injuries and infections to your health care provider immediately. Check water temperature with your elbow, not your foot. Do not use a heating pad on your feet. Do not cross your legs. Do not self-treat your corns, calluses, or other foot problems. Go to your health care provider or clinical informatics director to treat these conditions. documented in this encounterAultman Alliance [facility] Hospital12-13-2022 History of Present illness Narrative* Karel Santiago - 08/31/2022 9:45 AM EST Last saw Dr. Fay: 08/09/22 Subjective: Patient presents to clinic c/o painful toenails. They state that the nails are especially painful with shoe gear and pressure. Patient states that nails b/l hallux are painful. No other pedal complaints at this time. Patient states no change in medications or medical history since last visit. Objective: Patient presents to clinic ambulating in sneakers Vasc: DP and PT pulses are decreased. CFT is less than 5 seconds bilateral. Skin temperature is warm to cool proximal to distal bilateral. There is moderate edema or varicosities noted. Neuro: Protective sensation is absent to the foot and toes when tested with the 5.07 SWM bilateral.Vibratory sensation is absent at the hallux IPJ bilateral. The hallux is downgoing bilateral. Derm: Nails 1-5 b/l are painful, discolored-yellow, thick, crumbly, dystrophic and with subungal debris. Skin is of normal turgor, texture and hair growth is absent bilateral. There are no hyperkeratosis, ulcerations, scars, verruca or other lesions noted. Ortho: Muscle strength is 5/5 for all pedal groups tested. Ankle joint DF is decreased with the knee extended with no pain or crepitus noted. 1st MPJ ROM is decreased bilateral. Assessment: (B35.1) Onychomycosis (primary encounter diagnosis) (E11.42) DM type 2 with diabetic peripheral neuropathy (HCC) (M79.674) Pain in toe of right foot (M79.675) Pain in toe of left foot Plan: Patient was seen and evaluated. Nails 1-5 bilateral were debrided in length and thickness. Patient was instructed on the continued importance of diabetic foot care along with proper diet and keeping their blood sugar under control to prevent complications. Patient is to RTC in 3-4 months. Karel Santiago DPM * La Nena Lawson LPN - 08/31/2022 9:17 AM EST AMB ROOMING INTAKE FLOWSHEET DATA Risk Screening Do you have concerns about personal safety or safety in the home?: No Patient presents with: Left Foot - Established Patient, Follow Up, Diabetic Foot Care Right Foot - Established Patient, Follow Up, Diabetic Foot Care La Nena Lawson LPN documented in this encounterA[facility] Miscellaneous Notes* Telephone Encounter - Nataliia Burnham RN - 08/10/2022 4:36 PM EST Patient notified of provider's message regarding recent lab results, as copied below. Nataliia Burnham RN COPIED: Maribel Fay MD 08/10/2022 4:09 PM EST Improved diabetes. Other labs stable. No change to regimen documented in this encounterA[facility]11-21-2022 History of Present illness Narrative* Maribel Fay MD - 08/09/2022 3:24 PM EST Chief Complaint Patient presents with: Follow Up: 3 month - had booster wants Flu shot HPI Charlette Farmer is a 87 year old female who presents here today for 3 month DM follow up. DIABETES MELLITUS: Ms. Farmer was last seen 3 months ago. Since our last visit she denies excessive thirst or increased frequency of urination, numbness, tingling or pain in extremities, and new or unusual visual symptoms. Patient admits to have low sugar/hypoglycemic reactions 3 times in the lastmonth. Eating only lunch and dinner. Follows a diabetic diet most of the time. She is compliant with medication(s) and is tolerating med(s) without any side effects. She reports checking her glucose on a once a day schedule with sugars in the fasting 90-120 range. Patient's last HgA1C was Hemoglobin A1C (%) Date Value 05/05/2022 8.1 02/02/2022 7.6 11/03/2021 7.9 07/22/2021 7.8 ) Last Ophthalmology exam was within the past 12 months Last Podiatry exam was within the past 12 months BP well controlled on current regimen. Denies lightheadedness/dizziness with chronic low normal BP. Going to [place] for [employer] this year to be with her son. Past medical history, appointments, medications, allergies reviewed. Previous Medical History PAST MEDICAL HISTORY Diagnosis Date Arthritis Benign neoplasm of colon Carpal tunnel syndrome, right Chronic kidney disease, stage 3 (HCC) Diverticulitis 10/10/2020 Diverticulosis of colon (without mention of hemorrhage) Gout History of transfusion Internal hemorrhoids without mention of complication Lumbago Malignant neoplasm of corpus uteri, except isthmus (HCC) 1996 Uterine cancer Other and unspecified hyperlipidemia PAD (peripheral artery disease) ([facility]) 2013 Mild LLE Pernicious anemia Restless leg syndrome Rotator cuff tendinitis left Trigger finger, right middle finger Seen by Dr. Burns 2015 Type II or unspecified type diabetes mellitus without mention of complication, uncontrolled Unspecified essential hypertension Previous Surgical History PAST SURGICAL HISTORY Procedure Laterality Date ABDOMINAL SURGERY HX APPENDECTOMY 1952 BACK SURGERY HX CHOLECYSTECTOMY 11/28/2011 COLONOSCOPY FLX DX W/COLLJ SPEC WHEN PFRMD 2001 out of state sigmoidoscopy COLONOSCOPY FLX DX W/COLLJ SPEC WHEN PFRMD 10/22/2013 Colonoscopy COLONOSCOPY GEN ANES 01/07/2021 Dr. Phillips, Polyps. repeat in 3 years. COLONOSCOPY W/BIOPSY SINGLE/MULTIPLE 11/12/2008 DILATION & CURETTAGE DX&/THER NONOBSTETRIC 1965 Dilation & curettage EGD 01/07/2021 EYE SURGERY HX LAMINECTOMY W/O FFD 09/20 VERT SEG LUMBAR 1971 Laminectomy, lumbar, fusion PAST SURGICAL HISTORY OF Left 09/01/2017 Trigger finger release of left ringer finger TONSILLECTOMY HX TUBAL LIGATION HX VAGINAL HYSTERECTOMY VAGINAL HYSTERECTOMY UTERUS 250 GM/< 1996 Hysterectomy, vaginal Family History FAMILY HISTORY Problem Relation Age of Onset Cancer Mother breast, lung cancer was heavy smoker Diabetes Maternal Grandmother Diabetes Maternal Grandfather other (no siblings) Maternal Grandfather Patient Allergies ALLERGIES Allergen Reactions Lipitor [Atorvastat* Intolerance myalgia Simvastatin Intolerance myalgia Current Medications Current Outpatient Medications on File Prior to Visit Medication Sig blood sugar diagnostic (ACCU-CHEK JORGE PLUS TEST STRP) test strip Check blood sugar three times daily insulin glargine (LANTUS SOLOSTAR U-100 INSULIN) 100 unit/mL (3 mL) Inject 36 Units subcutaneously daily at bedtime. Insulin Volborg, Disposable, (PEN NEEDLE) 29 gauge x 1/2 One needle once daily. Dx: 250.02 Insulin: yes Lancets (ACCU-CHEK SOFTCLIX LANCETS) lancets Use Three times daily to check blood sugar spironolactone-hctz 25/25 (ALDACTAZIDE) 25-25 mg per tablet Take 0.5 tablets by mouth once daily. pravastatin (PRAVACHOL) 80 mg tablet Take 1 tablet by mouth once daily. pramipexole (MIRAPEX) 0.25 mg tablet Take 1 tablet by mouth daily at bedtime. metoprolol tartrate, short acting, (LOPRESSOR) 25 mg tablet Take 1 tablet by mouth twice daily. lisinopril 2.5 mg tablet Take 1 tablet by mouth once daily. allopurinol (ZYLOPRIM) 100 mg tablet Take 2 tablets by mouth once daily. For gout. ammonium lactate (LAC-HYDRIN) 12 % lotion Apply 1 application to affected area as needed for Dry Skin. melatonin 3 mg Take by mouth daily at bedtime. COMPOUNDED PRESCRIPTION Cock up wrist splint, right Medium. To be worn nightly to prevent carpal tunnel symptoms. Dx: carpal tunnel right Cholecalciferol, Vitamin D3, 1,000 unit cap Take 1 capsule by mouth once daily. cyanocobalamin (VITAMIN B-12) 1,000 mcg Tab Take 1 tablet by mouth once daily. Dx: pernicious anemia Blood-Glucose Meter, Drum-type (ACCU-CHEK COMPACT PLUS CARE) Misc Kit 1 Each. Accu-Check Compact Plus Meter Diagnosis: Diabetes Mellitus ASPIRIN 81 MG TAB Take one (1) tablet daily . glipiZIDE (GLUCOTROL XL) 2.5 mg 24 hr tablet Take 1 tablet by mouth once daily. No current facility-administered medications on file prior to visit. Social History Social History Tobacco Use Smoking status: Former Packs/day: 1.00 Years: 21.00 Pack years: 21.00 Types: Cigarettes Start date: 11/23/1952 Quit date: 09/19/1973 Years since quittin.9 Smokeless tobacco: Never Vaping Use Vaping Use: Never used Substance Use Topics Alcohol use: Yes Comment: occas glass of wine Drug use: No Review of Symptoms REVIEW OF SYSTEMS GENERAL: No weight loss, malaise or fevers RESPIRATORY: Negative for cough, hemoptysis, wheezing, COPD, dyspnea or shortness of breath CARDIOVASCULAR: Negative for chest pain, leg swelling, hypertension, CHF or palpitations GI: No nausea, vomiting, or diarrhea SKIN: Negative for lesions, rash, and itching EXAM: BP 102/58 Pulse 60 Resp 18 Wt 76.7 kg (169 lb 3.2 oz) SpO2 97% BMI 31.99 kg/m General Appearance: Well appearing, alert, in no acute distress, well-hydrated, well nourished.. Skin: Skin color, texture, turgor normal, no suspicious rashes or lesions. Lungs: Lungs clear to auscultation. No wheezing, rhonchi, rales.. Heart: RRR without murmur, gallop, or rubs. No ectopy. Abdomen: Normal abdominal exam, Abdomen soft, non-tender. Bowel sounds normal. No masses, organomegaly. Extremities: No deformities, edema, skin discoloration, clubbing or cyanosis. Good capillary refill. . Health Maintenance List SHINGRIX VACCINE(1 of 2) Never done DTAP,TDAP,TD(2 - Tdap) due on 06/06/2018 DEPRESSION ASSESSMENT Never done INFLUENZA(1) due on 05/20/2022 HBA1C due on 08/05/2022 URINE ALBUMIN:CREATININE RATIO due on 07/22/2022 DILATED RETINAL EXAM due on 09/30/2022 LDL CHOLESTEROL due on 11/03/2022 DIABETIC FOOT EXAM due on 02/02/2023 BONE DENSITY Completed ADVANCE DIRECTIVE DISCUSSION Completed COVID-19 VACCINE Completed PNEUMOCOCCAL: 65+ Completed Data reviewed Component Latest Ref Rng & Units 02/02/2022 05/05/2022 Protein, Total 6.3 - 8.0 g/dL 7.1 7.4 Albumin 3.9 - 4.9 g/dL 4.6 5.0 (H) Calcium 8.5 - 10.2 mg/dL 9.7 10.1 Bilirubin, Total 0.2 - 1.3 mg/dL 0.3 0.4 Alkaline Phosphatase 34 - 123 U/L 64 67 AST 13 - 35 U/L 17 18 ALT 7 - 38 U/L 11 11 Glucose 74 - 99 mg/dL 261 (H) 177 (H) BUN 7 - 21 mg/dL 24 (H) 32 (H) Creatinine 0.58 - 0.96 mg/dL 1.23 (H) 1.56 (H) Sodium 136 - 144 mmol/L 138 137 Potassium 3.7 - 5.1 mmol/L 4.3 4.2 Chloride 97 - 105 mmol/L 103 101 CO2 22 - 30 mmol/L 22 23 Anion Gap 9 - 18 mmol/L 13 13 eGFR >=60 mL/min/1.73m 43 (L) 32 (L) Hemoglobin A1C 4.3 - 5.6 % 7.6 (H) 8.1 (H) Estimated Average Glucose mg/dL 171 186 Component Latest Ref Rng & Units 11/03/2021 Total Cholesterol, Nonfasting <200 mg/dL 200 (H) Triglycerides, Nonfasting <150 mg/dL 318 (H) HDL Cholesterol, Nonfasting >39 mg/dL 45 LDL Cholesterol, Nonfasting <100 mg/dL 91 Non HDL Cholesterol, Nonfasting <130 mg/dL 155 (H) VLDL Cholesterol, Nonfasting <30 mg/dL 64 (H) Total Chol/HDL Ratio, Nonfasting <5.10 mg/dL 4.44 LDL/HDL Ratio, Nonfasting <2.54 mg/dL 2.02 ASSESSMENT/PLAN: 1. DM type 2 with diabetic peripheral neuropathy (HCC) - ICD9: 250.60, 357.2, ICD10: E11.42 (primary diagnosis) improved control, but with hypoglycemia - Decrease Lantus 34 units QPM - Blood glucose monitoring on a once a day schedule - Encouraged regular aerobic exercise and weight loss - Follow up in 3 months, sooner should any other issues arise. - Discussed diabetic education issues of meterman diabetic complications, hypoglycemic symptoms, hyperglycemic symptoms, diet, medications- side effects and need for compliance, importance of exercise, use and side effects of insulin, and importance of annual examinations with Opthalmology with patient. - HGB A1C - ALBUMIN/CREAT RATIO RND UR - INSULIN GLARGINE (U-100) 100 UNIT/ML (3 ML) SUBCUTANEOUS PEN - COMP METABOLIC PANEL - CONSULT TO PODIATRY 2. Essential hypertension - ICD9: 401.9, ICD10: I10 - good control - Continue current medication(s) - Encouraged dietary sodium restriction/DASH diet - Recommended regular aerobic exercise. - Reviewed risks of HTN and principles of treatment - Goal of BP <140/90 - COMP METABOLIC PANEL 3. Mixed hyperlipidemia - ICD9: 272.2, ICD10: E78.2 - good control - Continue current medication. - Encouraged following a low fat, low cholesterol diet. - Discussed the benefits of regular aerobic exercise and weight loss. 4. Need for influenza vaccination - ICD9: V04.81, ICD10: Z23 - INFLUENZA SEASONAL QUADRIVALENT HIGH DOSE AGE 65+ Maribel Fay MD documented in this encounterA[facility]10-06-2022 Miscellaneous Notes* Telephone Encounter - Colette Gilman LPN - 06/24/2022 9:14 AM EDT Pt changing to mail service pharmacy. Pt using her Accu-check machine. Patient has been identified by name and date of : Yes Patient phones for refill(s): Requested Prescriptions Pending Prescriptions Disp Refills blood sugar diagnostic (ACCU-CHEK JORGE PLUS TEST STRP) test strip 200 Each 3 Sig: Check blood sugar three times daily insulin glargine (LANTUS SOLOSTAR U-100 INSULIN) 100 unit/mL (3 mL) 15 Each 3 Sig: Inject 36 Units subcutaneously daily at bedtime. Insulin Volborg, Disposable, (PEN NEEDLE) 29 gauge x 1/2 100 Each 11 Sig: One needle once daily. Dx: 250.02 Insulin: yes Lancets (ACCU-CHEK SOFTCLIX LANCETS) lancets 200 Each 3 Sig: Use Three times daily to check blood sugar Date of last office visit in primary care: 05/05/22 next apt 08/09/22 Last 2 Encounter Wt Readings: Date: Wt: 05/05/2022 75.3 kg (166 lb) 02/02/2022 78.3 kg (172 lb 9.6 oz) Previous labs/tests for medication: Diabetes: Hemoglobin A1C (%) Date Value 05/05/2022 8.1 02/02/2022 7.6 11/03/2021 7.9 07/22/2021 7.8 Thank you. Colette Gimlan LPN documented in this encounterA[facility]09-29-2022 Miscellaneous Notes* Telephone Encounter - Francheska Ching LPN - 06/17/2022 1:48 PM EDT Patient notified. Patient would like Parking placards sent in mail. Forms in envelope sent for mail. * Telephone Encounter - Maribel Fay MD - 06/17/2022 12:58 PM EDT Orders printed and supplies sent as requested. * Telephone Encounter - Marylou Sutherland RN - 06/17/2022 10:43 AM EDT Patient has been identified by name and date of : Yes Patient phones for refill(s): Requested Prescriptions Pending Prescriptions Disp Refills blood sugar diagnostic (BLOOD GLUCOSE TEST) test strip 50 Strip 11 Sig: Test blood sugar(s) 3 times daily. Dx: Type 2 DM - Controlled E11.9 Insulin: Yes Patient requesting diabetic test strips. Reports now has a Talk Meter but wasn't sure of brand. Pended generic strips. Patient also needs a handicap placard. She reports she usually gets two orders to get a card for her personal vehicle and one to carry with her if she is riding with someone else. Date of last office visit with pcp: 05/05/2022 Future appt: 08/09/2022 Last 2 Encounter Wt Readings: Date: Wt: 05/05/2022 75.3 kg (166 lb) 02/02/2022 78.3 kg (172 lb 9.6 oz) Previous labs/tests for medication: Diabetes: Hemoglobin A1C (%) Date Value 05/05/2022 8.1 02/02/2022 7.6 11/03/2021 7.9 07/22/2021 7.8 Please advise. Thank you. Marylou Sutherland RN documented in this encounterA[facility]08-23-2022 Miscellaneous Notes* Telephone Encounter - Kassandra Harrison LPN - 05/11/2022 3:09 PM EDT Patient notified of results, verbalizes understanding of instructions.. Kassandra Harrison LPN * Telephone Encounter - Maribel Fay MD - 05/11/2022 1:03 PM EDT Patient with worsening diabetes control with A1c up to 8.1 and noted decreased kidney function, butstill in stage IIIb range. Recommend increasing lantus to 36 units at bedtime and recheck A1c in 3 months. Continue to work onlow carb, low sodium diet (<2,000 mg daily), exercise as tolerated, increased water intake, and avoidance of NSAIDs. Recheck kidney function in 1 month. documented in this encounterA[facility]08-17-2022 History of Present illness Narrative* Maribel Fay MD - 05/05/2022 3:03 PM EDT Chief Complaint Patient presents with: Recheck: 3 month follow up HPI Charlette Farmer is a 87 year old female who presents here today for 3 month follow up. Patient notes that she has had 2 episodes of GI upset as well as nausea/vomiting and diarrhea whicheach lasted about 1 night. Last episode was about 1 week ago. Denies fever/chills, abdominal pain, hematochezia, melena. Symptoms have resolved aside from queasy stomach today due to eating Sly sandwich for lunch. Did have a fall about 2-3 months ago. Tripped over mat for her roller chair. No head injury or LOC.Has fall alert necklace she wears all the time. Living alone. Feels safe. Has someone to help clean2 times per month, otherwise does all other ADLs. DIABETES MELLITUS: Ms. Farmer was last seen 3 months ago. Since our last visit she denies excessive thirst or increased frequency of urination, numbness, tingling or pain in extremities, new or unusual visual symptoms, and low sugar/hypoglycemic reactions. Follows a diabetic diet most of the time and is down 6 lbs in the last 3 months. She is compliant with medication(s) and is tolerating med(s)without any side effects. She reports checking her glucose on a once a day schedule with sugars in the fasting <130 range. Patient's last HgA1C was Hemoglobin A1C (%) Date Value 02/02/2022 7.6 11/03/2021 7.9 07/22/2021 7.8 ) Last Ophthalmology exam was within the past 12 months-Normal Last Podiatry exam was within the past 3 months- Dr. Santiago RLS: doing well with Mirapex nightly. Denies side effects. Gout: no flares with the allopurinol. Has living will at home and DPOA (daughter Gabriela Case). Daughter has copy and thinks [facility] has a copy.FULL CODE. Past medical history, appointments, medications, allergies reviewed. Previous Medical History PAST MEDICAL HISTORY Diagnosis Date Arthritis Benign neoplasm of colon Carpal tunnel syndrome, right Chronic kidney disease, stage 3 (HCC) Diverticulitis 10/10/2020 Diverticulosis of colon (without mention of hemorrhage) Gout History of transfusion Internal hemorrhoids without mention of complication Lumbago Malignant neoplasm of corpus uteri, except isthmus (HCC) 1996 Uterine cancer Other and unspecified hyperlipidemia PAD (peripheral artery disease) ([facility]) 2013 Mild LLE Pernicious anemia Restless leg syndrome Rotator cuff tendinitis left Trigger finger, right middle finger Seen by Dr. Burns 2015 Type II or unspecified type diabetes mellitus without mention of complication, uncontrolled Unspecified essential hypertension Previous Surgical History PAST SURGICAL HISTORY Procedure Laterality Date ABDOMINAL SURGERY HX APPENDECTOMY 1952 BACK SURGERY HX CHOLECYSTECTOMY 11/28/2011 COLONOSCOPY FLX DX W/COLLJ SPEC WHEN PFRMD 2001 out of state sigmoidoscopy COLONOSCOPY FLX DX W/COLLJ SPEC WHEN PFRMD 10/22/2013 Colonoscopy COLONOSCOPY GEN ANES 01/07/2021 Dr. Phillips, Polyps. repeat in 3 years. COLONOSCOPY W/BIOPSY SINGLE/MULTIPLE 11/12/2008 DILATION & CURETTAGE DX&/THER NONOBSTETRIC 1965 Dilation & curettage EGD 01/07/2021 EYE SURGERY HX LAMINECTOMY W/O FFD 09/20 VERT SEG LUMBAR 1971 Laminectomy, lumbar, fusion PAST SURGICAL HISTORY OF Left 09/01/2017 Trigger finger release of left ringer finger TONSILLECTOMY HX TUBAL LIGATION HX VAGINAL HYSTERECTOMY VAGINAL HYSTERECTOMY UTERUS 250 GM/< 1996 Hysterectomy, vaginal Family History FAMILY HISTORY Problem Relation Age of Onset Cancer Mother breast, lung cancer was heavy smoker Diabetes Maternal Grandmother Diabetes Maternal Grandfather other (no siblings) Maternal Grandfather Patient Allergies ALLERGIES Allergen Reactions Lipitor [Atorvastat* Intolerance myalgia Simvastatin Intolerance myalgia Current Medications Current Outpatient Medications on File Prior to Visit Medication Sig allopurinol (ZYLOPRIM) 100 mg tablet Take 2 tablets by mouth once daily. For gout. glipiZIDE (GLUCOTROL XL) 2.5 mg 24 hr tablet Take 1 tablet by mouth once daily. insulin glargine (LANTUS SOLOSTAR U-100 INSULIN) 100 unit/mL (3 mL) Inject 32 Units subcutaneously daily at bedtime. metoprolol tartrate, short acting, (LOPRESSOR) 25 mg tablet Take 1 tablet by mouth twice daily. lisinopril 2.5 mg tablet Take 1 tablet by mouth once daily. pramipexole (MIRAPEX) 0.25 mg tablet Take 1 tablet by mouth daily at bedtime. pravastatin (PRAVACHOL) 80 mg tablet Take 1 tablet by mouth once daily. spironolactone-hctz 25/25 (ALDACTAZIDE) 25-25 mg per tablet Take 0.5 tablets by mouth once daily. Insulin Volborg, Disposable, (PEN NEEDLE) 29 gauge x 1/2 One needle once daily. Dx: 250.02 Insulin: yes blood sugar diagnostic (ACCU-CHEK JORGE PLUS TEST STRP) test strip Check blood sugar three times daily Lancets (ACCU-CHEK SOFTCLIX LANCETS) lancets Use Three times daily to check blood sugar ammonium lactate (LAC-HYDRIN) 12 % lotion Apply 1 application to affected area as needed for Dry Skin. melatonin 3 mg Take by mouth daily at bedtime. COMPOUNDED PRESCRIPTION Cock up wrist splint, right Medium. To be worn nightly to prevent carpal tunnel symptoms. Dx: carpal tunnel right Cholecalciferol, Vitamin D3, 1,000 unit cap Take 1 capsule by mouth once daily. cyanocobalamin (VITAMIN B-12) 1,000 mcg Tab Take 1 tablet by mouth once daily. Dx: pernicious anemia Blood-Glucose Meter, Drum-type (ACCU-CHEK COMPACT PLUS CARE) Misc Kit 1 Each. Accu-Check Compact Plus Meter Diagnosis: Diabetes Mellitus ASPIRIN 81 MG TAB Take one (1) tablet daily . No current facility-administered medications on file prior to visit. Social History Social History Tobacco Use Smoking status: Former Packs/day: 1.00 Years: 21.00 Pack years: 21.00 Types: Cigarettes Start date: [birth year]/23/1952 Quit date: 09/19/1973 Years since quittin.6 Smokeless tobacco: Never Vaping Use Vaping Use: Never used Substance Use Topics Alcohol use: Yes Comment: occas glass of wine Drug use: No Review of Symptoms REVIEW OF SYSTEMS GENERAL: No weight loss, malaise or fevers RESPIRATORY: Negative for cough, hemoptysis, wheezing, COPD, dyspnea or shortness of breath CARDIOVASCULAR: Negative for chest pain, leg swelling, hypertension, CHF or palpitations GI: See HPI SKIN: Negative for lesions, rash, and itching EXAM: BP 112/68 Pulse 74 Resp 14 Wt 75.3 kg (166 lb) BMI 31.38 kg/m General Appearance: Well appearing, alert, in no acute distress, well-hydrated, well nourished.. Skin: Skin color, texture, turgor normal, no suspicious rashes or lesions. Lungs: Lungs clear to auscultation. No wheezing, rhonchi, rales.. Heart: RRR without murmur, gallop, or rubs. No ectopy. Abdomen: Normal abdominal exam, Abdomen soft, non-tender. Bowel sounds normal. No masses, organomegaly. Extremities: No deformities, edema, skin discoloration, clubbing or cyanosis. Good capillary refill. . Health Maintenance List SHINGRIX VACCINE(1 of 2) Never done DTAP,TDAP,TD(2 - Tdap) due on 06/06/2018 ADVANCE DIRECTIVE DISCUSSION Never done INFLUENZA(1) due on 05/20/2022 URINE ALBUMIN:CREATININE RATIO due on 07/22/2022 HBA1C due on 08/05/2022 DILATED RETINAL EXAM due on 09/30/2022 LDL CHOLESTEROL due on 11/03/2022 DIABETIC FOOT EXAM due on 02/02/2023 BONE DENSITY Completed COVID-19 VACCINE Completed PNEUMOCOCCAL: 65+ Completed Data reviewed Component Latest Ref Rng & Units 11/03/2021 02/02/2022 Protein, Total 6.3 - 8.0 g/dL 6.9 7.1 Albumin 3.9 - 4.9 g/dL 4.8 4.6 Calcium 8.5 - 10.2 mg/dL 9.8 9.7 Bilirubin, Total 0.2 - 1.3 mg/dL 0.3 0.3 Alkaline Phosphatase 34 - 123 U/L 66 64 AST 13 - 35 U/L 21 17 Glucose 74 - 99 mg/dL 144 (H) 261 (H) BUN 7 - 21 mg/dL 26 (H) 24 (H) Creatinine 0.58 - 0.96 mg/dL 1.33 (H) 1.23 (H) Sodium 136 - 144 mmol/L 138 138 Potassium 3.7 - 5.1 mmol/L 4.4 4.3 Chloride 97 - 105 mmol/L 102 103 CO2 22 - 30 mmol/L 23 22 Anion Gap 9 - 18 mmol/L 13 13 ALT 7 - 38 U/L 12 11 eGFR- 46 eGFR-All Other Races . 38 eGFR >=60 mL/min/1.73m 43 (L) Total Cholesterol, Nonfasting <200 mg/dL 200 (H) Triglycerides, Nonfasting <150 mg/dL 318 (H) HDL Cholesterol, Nonfasting >39 mg/dL 45 LDL Cholesterol, Nonfasting <100 mg/dL 91 Non HDL Cholesterol, Nonfasting <130 mg/dL 155 (H) VLDL Cholesterol, Nonfasting <30 mg/dL 64 (H) Total Chol/HDL Ratio, Nonfasting <5.10 mg/dL 4.44 LDL/HDL Ratio, Nonfasting <2.54 mg/dL 2.02 Hemoglobin A1C 4.3 - 5.6 % 7.9 (H) 7.6 (H) Estimated Average Glucose mg/dL 180 171 ASSESSMENT/PLAN: 1. DM type 2 with diabetic peripheral neuropathy (HCC) - ICD9: 250.60, 357.2, ICD10: E11.42 (primary diagnosis) Controlled. - Continue current medications - Blood glucose monitoring on a once a day schedule - Encouraged regular aerobic exercise and weight loss - Follow up in 3 months, sooner should any other issues arise. - Discussed diabetic education issues of skilled nursing diabetic complications, hypoglycemic symptoms, hyperglycemic symptoms, diet, medications- side effects and need for compliance, importance of exercise, and importance of annual examinations with Opthalmology with patient. - INSULIN GLARGINE (U-100) 100 UNIT/ML (3 ML) SUBCUTANEOUS PEN - GLIPIZIDE ER 2.5 MG TABLET, EXTENDED RELEASE 24 HR - PEN NEEDLE, DIABETIC 29 GAUGE X 1/2 - HGB A1C - COMP METABOLIC PANEL 2. Viral gastroenteritis - ICD9: 008.8, ICD10: A08.4 Likely viral etiology. Discussed bland diet for GI upset, no more reubens until symptoms resolve. Red flags for re-assessment reviewed with patient in detail. 3. Essential hypertension - ICD9: 401.9, ICD10: I10 - good control - Continue current medication(s) - Encouraged dietary sodium restriction/DASH diet - Recommended regular aerobic exercise. - Reviewed risks of HTN and principles of treatment - Goal of BP <140/90 - SPIRONOLACTONE 25 MG-HYDROCHLOROTHIAZIDE 25 MG TABLET - METOPROLOL TARTRATE 25 MG TABLET - LISINOPRIL 2.5 MG TABLET 4. Mixed hyperlipidemia - ICD9: 272.2, ICD10: E78.2 - suboptimal control - Continue current medication. - Encouraged following a low fat, low cholesterol diet. - Discussed the benefits of regular aerobic exercise and weight loss. - PRAVASTATIN 80 MG TABLET 5. Restless leg syndrome - ICD9: 333.94, ICD10: G25.81 Controlled on Mirapex. - PRAMIPEXOLE 0.25 MG TABLET 6. Acute gout of right hand, unspecified cause - ICD9: 274.01, ICD10: M10.9 Controlled on allopurinol. Recheck level in 3 months. - ALLOPURINOL 100 MG TABLET 7. Stage 3b chronic kidney disease (HCC) - ICD9: 585.3, ICD10: N18.32 Recheck CMP. 8. Fall in home, initial encounter - ICD9: E888.9, E849.0, ICD10: W19.XXXA, Y92.009 Trip and fall. Patient states she has fixed the mat she tripped on. Has fall alert necklace she wears all the time. Feels safe at home. Maribel Fay MD documented in this encounterA[facility] Miscellaneous Notes* Telephone Encounter - Baylee Herrera Pss - 02/24/2022 2:20 PM EDT Patient has been identified by name and date of : Yes Pending Prescriptions Disp Refills ALLOPURINOL 100 MG TABLET 180 tablet 1 Sig: Take 2 tablets by mouth once daily. For gout. BEATRICE: No MADISYN-02/02/22 Labs-02/02/22 NOV-05/05/22 med filled 09/03/21 ends 03/02/22 RX INSTRUCTIONS: Patient aware RX escripted to mail away pharmacy. No need to notify patient. Baylee Herrera Pss documented in this encounterA[facility]05-27-[facility]22 History of Present illness Narrative* Karel Santiago - 02/12/2022 3:34 PM EDT Last saw Dr. Fay: 02/02/22 Subjective: Patient presents to clinic c/o painful toenails. They state that the nails are especially painful with shoe gear and pressure. Patient states that nails 1-5 b/l are painful. Patient admits to being diabetic and states that their blood sugar was 122 mg/dL this AM. Patient does report herdog did step on her right 2nd toe recently. She denies pain. No other pedal complaints at this time. Patient states no change in medications or medical history since last visit. Objective: Patient presents to clinic ambulating in [facility] Vasc: DP and PT pulses are palpable bilateral. CFT is less than 5 seconds bilateral. Skin temperature is warm to cool proximal to distal bilateral. There is mild edema or varicosities noted. Minimal bruising is noted of right 2nd toe. Neuro: Protective sensation is intact to the foot and toes when tested with the 5.07 SWM bilateral.Vibratory sensation is decreased at the hallux IPJ bilateral. The hallux is downgoing bilateral. Derm: Nails 1-5 b/l are painful, discolored-yellow, thick, crumbly, dystrophic and with subungal debris. Skin is of normal turgor, texture and hair growth is present bilateral. There are no hyperkeratosis, ulcerations, scars, verruca or other lesions noted. Ortho: Muscle strength is 5/5 for all pedal groups tested. Ankle joint DF is full with the knee extended with no pain or crepitus noted. 1st MPJ ROM is full bilateral. No pain of right 2nd toe Assessment: (B35.1) Onychomycosis (primary encounter diagnosis) (M79.674) Pain in toe of right foot (M79.675) Pain in toe of left foot (E11.42) DM type 2 with diabetic peripheral neuropathy (HCC) Plan: Patient was seen and evaluated. Nails 1-5 bilateral were debrided in length and thickness. Patient was instructed on the continued importance of diabetic foot care along with proper diet and keeping their blood sugar under control to prevent complications. Offered xrays for right 2nd toe. She declined. Low suspicion for fracture Patient is to RTC in 3-4 months. Karel Santiago DPM * Colette Anderson - 02/12/2022 3:26 PM EDT Patient presents with: Left Foot - Diabetic Foot Care, Follow Up Right Foot - Diabetic Foot Care, Follow Up No pain or problems noted. Colette Anderson documented in this encounterA[facility]05-27-2022 Instructions* Patient Instructions* Karel Santiago - 02/12/2022 3:34 PM EDT Diabetes Foot Care Instructions When you have diabetes, proper foot care is very important. Poor foot care may lead to amputation of a foot or leg. As a person with diabetes, you are more vulnerable to foot problems, because diabetes can damage your nerves and reduce blood flow to your feet. Here are some diabetes foot care tips to follow: Wash and Dry Your Feet Daily Use mild soaps Use warm water Pat your skin dry; do not rub. Thoroughly dry your feet. After washing, use lotion on your feet to prevent cracking. Do not put lotion between your toes. Examine Your Feet Each Day Check the tops and bottoms of your feet. Have someone else look at your feet if you cannot see them. Check for dry, cracked skin. Look for blisters, cuts, scratches, or other sores. Check for redness, increased warmth, or tenderness when touching any area of your feet. Check for ingrown toenails, corns, and calluses. If you get a blister or sore from your shoes, do not pop it. Apply a bandage and wear a differentpair of shoes. Take Care of Your Toenails Cut toenails after bathing, when they are soft. Cut toenails straight across and smooth with a nail file. Avoid cutting into the corners of toes. Do not cut cuticles. If you have neuropathy (or decreased sensation in your feet) a clinical informatics director should always cut your toenails. Be Careful When Exercising Walk and exercise in comfortable shoes. Do not exercise when you have open sores on your feet. Protect Your Feet With Shoes and Socks Never go barefoot. Always protect your feet by wearing shoes or hard-soled slippers or footwear. Avoid shoes with high heels and pointed toes. Avoid shoes that expose your toes or heels (such as open-toed shoes or sandals). These types of shoes increase your risk for injury and potential infections. Try on new footwear with the type of socks you usually wear. Do not wear new shoes for more than an hour at a time. Change your socks daily. Look and feel inside your shoes before putting them on to make sure there are no foreign objects orrough areas. Avoid tight socks. Wear natural-fiber socks (cotton, wool, or a cotton-wool blend). Wear special shoes if your health care provider recommends them. Wear shoes/boots that will protect your feet from various weather conditions (cold, moisture, etc.). Make sure your shoes fit properly. If you have neuropathy (nerve damage), you may not notice that your shoes are too tight. Perform the footwear test described below. Footwear Test Use this simple test to see if your shoes fit correctly: Stand on a piece of paper. (Make sure you are standing and not sitting, because your foot changes shape when you stand.) Trace the outline of your foot. Trace the outline of your shoe. Compare the tracings: Is the shoe too narrow? Is your foot crammed into the shoe? The shoe should be at least 1/2 inch longer than your longest toe and as wide as your foot. Proper Shoe Choices The following types of shoes are best for people with diabetes Closed toes and heels Leather uppers without a seam inside At least 1/2 inch extra space at the end of your longest toe Inside of shoe should be soft with no rough areas Outer sole should be made of stiff material Shoes should be at least as wide as your feet Tips for Foot Care in Diabetes Don't wait to treat a minor foot problem if you have diabetes. Follow your health care provider's guidelines and first aid guidelines. Report foot injuries and infections to your health care provider immediately. Check water temperature with your elbow, not your foot. Do not use a heating pad on your feet. Do not cross your legs. Do not self-treat your corns, calluses, or other foot problems. Go to your health care provider or clinical informatics director to treat these conditions. documented in this encounterA[facility]05-17-2022 History of Present illness Narrative* Maribel Fay MD - 02/02/2022 1:37 PM EDT Chief Complaint Patient presents with: Follow Up: 3 month HPI Charlette Farmer is a 86 year old female who presents here today for Above Complaints. DIABETES MELLITUS: Ms. Farmer was last seen 3 months ago. Since our last visit she denies excessive thirst or increased frequency of urination, numbness, tingling or pain in extremities and new or unusual visual symptoms. Patient had low sugars into the 60-70 range and her Glipizide XL was reducedto 2.5 mg from 5 mg. Had been cutting her 5 mg pills in half before picking up new rx about 4 days ago. Follows a diabetic diet most of the time. She is compliant with medication(s) and is toleratingmed(s) without any side effects. She reports checking her glucose on a once a day schedule with sugars in the fasting 80-120 range aside from this week with readings in the 130-240 range. Patient's last HgA1C was Hemoglobin A1C (%) Date Value 11/03/2021 7.9 07/22/2021 7.8 ) Last Ophthalmology exam was within the past 12 months Last Podiatry exam was within the past 12 months BP well controlled on current regimen. Denies lightheadedness/dizziness with diastolic <60. RLS: controlled on Mirapex. Past medical history, appointments, medications, allergies reviewed. Previous Medical History PAST MEDICAL HISTORY Diagnosis Date Arthritis Benign neoplasm of colon Carpal tunnel syndrome, right Chronic kidney disease, stage 3 (HCC) Diverticulitis 10/10/2020 Diverticulosis of colon (without mention of hemorrhage) Gout History of transfusion Internal hemorrhoids without mention of complication Lumbago Malignant neoplasm of corpus uteri, except isthmus (HCC) 1996 Uterine cancer Other and unspecified hyperlipidemia PAD (peripheral artery disease) ([facility]) 2013 Mild LLE Pernicious anemia Restless leg syndrome Rotator cuff tendinitis left Trigger finger, right middle finger Seen by Dr. Burns 2015 Type II or unspecified type diabetes mellitus without mention of complication, uncontrolled Unspecified essential hypertension Previous Surgical History PAST SURGICAL HISTORY Procedure Laterality Date ABDOMINAL SURGERY HX APPENDECTOMY 1952 BACK SURGERY HX CHOLECYSTECTOMY 11/28/2011 COLONOSCOPY FLX DX W/COLLJ SPEC WHEN PFRMD 2001 out of state sigmoidoscopy COLONOSCOPY FLX DX W/COLLJ SPEC WHEN PFRMD 10/22/2013 Colonoscopy COLONOSCOPY GEN ANES 01/07/2021 Dr. Phillips, Polyps. repeat in 3 years. COLONOSCOPY W/BIOPSY SINGLE/MULTIPLE 11/12/2008 DILATION & CURETTAGE DX&/THER NONOBSTETRIC 1965 Dilation & curettage EGD 01/07/2021 EYE SURGERY HX LAMINECTOMY W/O FFD 1/2 VERT SEG LUMBAR 1971 Laminectomy, lumbar, fusion PAST SURGICAL HISTORY OF Left 09/01/2017 Trigger finger release of left ringer finger TONSILLECTOMY HX TUBAL LIGATION HX VAGINAL HYSTERECTOMY VAGINAL HYSTERECTOMY UTERUS 250 GM/< 1996 Hysterectomy, vaginal Family History FAMILY HISTORY Problem Relation Age of Onset Cancer Mother breast, lung cancer was heavy smoker Diabetes Maternal Grandmother Diabetes Maternal Grandfather other (no siblings) Maternal Grandfather Patient Allergies ALLERGIES Allergen Reactions Lipitor [Atorvastat* Intolerance myalgia Simvastatin Intolerance myalgia Current Medications Current Outpatient Medications on File Prior to Visit Medication Sig glipiZIDE (GLUCOTROL XL) 2.5 mg 24 hr tablet Take 1 tablet by mouth once daily. insulin glargine (LANTUS SOLOSTAR U-100 INSULIN) 100 unit/mL (3 mL) Inject 32 Units subcutaneously daily at bedtime. metoprolol tartrate, short acting, (LOPRESSOR) 25 mg tablet Take 1 tablet by mouth twice daily. lisinopril 2.5 mg tablet Take 1 tablet by mouth once daily. pramipexole (MIRAPEX) 0.25 mg tablet Take 1 tablet by mouth daily at bedtime. pravastatin (PRAVACHOL) 80 mg tablet Take 1 tablet by mouth once daily. spironolactone-hctz 25/25 (ALDACTAZIDE) 25-25 mg per tablet Take 0.5 tablets by mouth once daily. allopurinol (ZYLOPRIM) 100 mg tablet Take 2 tablets by mouth once daily. For gout. Insulin [place], Disposable, (PEN NEEDLE) 29 gauge x 1/2 One needle once daily. Dx: 250.02 Insulin: yes blood sugar diagnostic (ACCU-CHEK JORGE PLUS TEST STRP) test strip Check blood sugar three times daily Lancets (ACCU-CHEK SOFTCLIX LANCETS) lancets Use Three times daily to check blood sugar ammonium lactate (LAC-HYDRIN) 12 % lotion Apply 1 application to affected area as needed for Dry Skin. melatonin 3 mg Take by mouth daily at bedtime. Cholecalciferol, Vitamin D3, 1,000 unit cap Take 1 capsule by mouth once daily. cyanocobalamin (VITAMIN B-12) 1,000 mcg Tab Take 1 tablet by mouth once daily. Dx: pernicious anemia Blood-Glucose Meter, Drum-type (ACCU-CHEK COMPACT PLUS CARE) [place] Kit 1 Each. Accu-Check Compact Plus Meter Diagnosis: Diabetes Mellitus ASPIRIN 81 MG TAB Take one (1) tablet daily . COMPOUNDED PRESCRIPTION Cock up wrist splint, right Medium. To be worn nightly to prevent carpal tunnel symptoms. Dx: carpal tunnel right No current facility-administered medications on file prior to visit. Social History Social History Tobacco Use Smoking status: Former Smoker Packs/day: 1.00 Years: 21.00 Pack years: 21.00 Types: Cigarettes Start date: [birth year]/23/1952 Quit date: 09/19/1973 Years since quittin.4 Smokeless tobacco: Never Used Vaping Use Vaping Use: Never used Substance Use Topics Alcohol use: Yes Comment: occas glass of wine Drug use: No Review of Symptoms REVIEW OF SYSTEMS GENERAL: No weight loss, malaise or fevers RESPIRATORY: Negative for cough, hemoptysis, wheezing, COPD, dyspnea or shortness of breath CARDIOVASCULAR: Negative for chest pain, leg swelling, hypertension, CHF or palpitations GI: No nausea, vomiting, or diarrhea SKIN: Negative for lesions, rash, and itching EXAM: BP 118/52 Pulse 74 Resp 18 Wt 78.3 kg (172 lb 9.6 oz) SpO2 97% BMI 32.63 kg/m General Appearance: Well appearing, alert, in no acute distress, well-hydrated, well nourished.. Skin: Skin color, texture, turgor normal, no suspicious rashes or lesions. Lungs: Lungs clear to auscultation. No wheezing, rhonchi, rales.. Heart: RRR without murmur, gallop, or rubs. No ectopy. Abdomen: Normal abdominal exam, Abdomen soft, non-tender. Bowel sounds normal. No masses, organomegaly. Extremities: No deformities, edema, skin discoloration, clubbing or cyanosis. Good capillary refill. . Feet: Shoes and socks removed, normal distal pulses and Noted bruise over right 2nd toe just distalto the MTP joint. mildly tender without swelling. normal ROM. Health Maintenance List SHINGRIX VACCINE(1 of 2) Never done DTAP,TDAP,TD(2 - Tdap) due on 06/06/2018 ADVANCE DIRECTIVE DISCUSSION Never done HBA1C due on 05/03/2022 URINE ALBUMIN:CREATININE RATIO due on 07/22/2022 DIABETIC FOOT EXAM due on 07/22/2022 DILATED RETINAL EXAM due on 09/30/2022 LDL CHOLESTEROL due on 11/03/2022 BONE DENSITY Completed INFLUENZA Completed PNEUMOVAX AGE 65 AND OVER WITH 5YR LOOKBACK Completed COVID-19 VACCINE Completed MENINGOCOCCAL CONJUGATE Aged Out Data reviewed Component Latest Ref Rng & Units 07/22/2021 11/03/2021 Protein, Total 6.3 - 8.0 g/dL 7.1 6.9 Albumin 3.9 - 4.9 g/dL 4.7 4.8 Calcium 8.5 - 10.2 mg/dL 9.8 9.8 Bilirubin, Total 0.2 - 1.3 mg/dL 0.4 0.3 Alkaline Phosphatase 34 - 123 U/L 65 66 AST 13 - 35 U/L 22 21 Glucose 74 - 99 mg/dL 122 (H) 144 (H) BUN 7 - 21 mg/dL 23 (H) 26 (H) Creatinine 0.58 - 0.96 mg/dL 1.41 (H) 1.33 (H) Sodium 136 - 144 mmol/L 138 138 Potassium 3.7 - 5.1 mmol/L 4.7 4.4 Chloride 97 - 105 mmol/L 101 102 CO2 22 - 30 mmol/L 24 23 Anion Gap 9 - 18 mmol/L 13 13 ALT 7 - 38 U/L 13 12 eGFR- 43 46 eGFR-All Other Races . 35 38 Total Cholesterol, Nonfasting <200 mg/dL 200 (H) Triglycerides, Nonfasting <150 mg/dL 318 (H) HDL Cholesterol, Nonfasting >39 mg/dL 45 LDL Cholesterol, Nonfasting <100 mg/dL 91 Non HDL Cholesterol, Nonfasting <130 mg/dL 155 (H) VLDL Cholesterol, Nonfasting <30 mg/dL 64 (H) Total Chol/HDL Ratio, Nonfasting <5.10 mg/dL 4.44 LDL/HDL Ratio, Nonfasting <2.54 mg/dL 2.02 Creatinine, Ur Random (UCRR) 20 - 300 mg/dL 67.9 Albumin, Urine Random mg/L 20.2 Albumin/Creat Ratio <30 mg/g 30 (H) Hemoglobin A1C 4.3 - 5.6 % 7.8 (H) 7.9 (H) Estimated Average Glucose mg/dL 177 180 Uric Acid 2.5 - 6.6 mg/dL 4.7 ASSESSMENT/PLAN: 1. DM type 2 with diabetic peripheral neuropathy (HCC) - ICD9: 250.60, 357.2, ICD10: E11.42 (primary diagnosis) worsening control - Continue current medications. Switch to 2.5 mg tablet of Glipizide XL instead of cutting 5mg pillin half. Call in 1 week with updated fasting sugars. - Blood glucose monitoring on a once a day schedule - Encouraged regular aerobic exercise and weight loss - Follow up in 3 months, sooner should any other issues arise. - Discussed diabetic education issues of meterman diabetic complications, hypoglycemic symptoms, hyperglycemic symptoms, diet, medications- side effects and need for compliance, importance of exercise, use and side effects of insulin and importance of annual examinations with Opthalmology with patient. - HGB A1C - COMP METABOLIC PANEL 2. Toe injury, right, initial encounter - ICD9: 959.7, ICD10: S99.921A Doubt fracture. She thinks dog may have stepped on it. Discussed ice and jarrod tape. Call if worsening. 3. Stage 3b chronic kidney disease (HCC) - ICD9: 585.3, ICD10: N18.32 Recheck CMP. Avoid NSAIDs, stick to low sodium diet. - COMP METABOLIC PANEL 4. Essential hypertension - ICD9: 401.9, ICD10: I10 - good control - Continue current medication(s) - Encouraged dietary sodium restriction/DASH diet - Recommended regular aerobic exercise. - Reviewed risks of HTN and principles of treatment - Goal of BP <140/90 5. Mixed hyperlipidemia - ICD9: 272.2, ICD10: E78.2 - improved control - Continue current medication. - Encouraged following a low fat, low cholesterol diet. - Discussed the benefits of regular aerobic exercise and weight loss. - Check fasting lipid panel in 3 months 6. PAD (peripheral artery disease) (HCC) - ICD9: 443.9, ICD10: I73.9 Mild. Good pulses today. Will monitor. 7. Restless leg syndrome - ICD9: 333.94, ICD10: G25.81 Improved on mirapex. Maribel Fay MD documented in this encounterA[facility]05-04-2022 Miscellaneous Notes* Telephone Encounter - Sloane Langley Ma - 01/20/2022 12:34 PM EDT Patient was notified Sloane Langley Ma * Telephone Encounter - Maribel Fay MD - 01/20/2022 11:55 AM EDT Sugars still low. Will reduce her Glipizide to 2.5 mg daily. New rx sent to mail order pharmacy. Would have her hold her Glipizide until she gets new rx. Send updated readings in 2 weeks once she starts lower dose. * Telephone Encounter - Marylou Sutherland RN - 01/20/2022 11:19 AM EDT Patient calls to update provider on fasting blood sugars over the past several days: 54: 71 53: 110 52: 67 430: 70 Patient is currently taking Lantus insulin 32 units at bedtime and glipizide 5 mg daily. Patient reports having cold symptoms for the past couple of weeks (cough, runny nose, nasal congestion, fatigue) with poor appetite only eating soups and drinking liquids. Patient stayed in doors fortwo weeks and is just now starting to feel better and get out of the house. Appetite is picking up.Patient denies dizziness, light-headed, fever, vomiting, frequent urination, or breathing difficulty. Patient just wanted to update provider on recent changes and make sure provider didn't want any changes with her insulin. Marylou Sutherland RN documented in this encounterAult[facility]12-01-2020 History of Present illness Narrative* Joan Daniel (Rt), Tech - 08/19/2020 6:20 PM EST Radiology Service Progress Note PATIENT NAME: Charlette Farmer DATE OF SERVICE: August 19, 2020 TIME: 6:22 PM PATIENT IDENTITY VERIFICATION COMPLETED USING TWO (2) IDENTIFIERS: Name and Date of confirmedby patient verbally. FALL SCREENING: Has the patient had 2 falls in the last year or 1 fall with injury or currently using an Ambulatory Assistive Device (Walker, Cane, Wheelchair, Crutches, etc.)? No PATIENT GENDER DATA: Female. status: : No status: NO. PATIENT RELEVANT IMPLANT DATA REVIEWED: Not Applicable RADIOLOGY DEPARTMENT: General X-ray: Exam(s) Completed: Lower Extremity X- Ray(s): Ankle, Right and Wt. Bearing: PERIPHERAL IV DATA: Not applicable SIGNED BY: RT Edwin August 19, 2020 6:22 PM documented in this encounterAultman [facility]01-23-2015 History of Past illness Narrative* Problem Noted Date Resolved Date Medicare annual wellness visit, subsequent 10/1111/24/2015 Diabetes mellitus with neuropathy 10/11/2014 11/24/2015 Medicare annual wellness visit, initial 09/28/19 14 11/24/2015 Tubular adenoma of rectum 02/25/20112015 Special screening for malignant neoplasms, colon 11/12/2008 11/24/2015 Benign neoplasm of colon 11/12/2008 016 Internal hemorrhoids without mention of complica tion 11/12/2008 10/14/2015 Other specified disorders of rotator cuff syndrome of shoulder and allied disorders 02/16/2006 10/18/2016 Malignant neoplasm of corpus uteri, except isthm us 11/24/2015 Overview: Uterine cancer HYPERLIPIDEMIA NEC/NOS 6 Lumbago 06/15/2016 DIABETES MELLITUS TYPE II UNCONTR UNCOMPL 07/18/2014 HYPERTENSION NOS 10/14/2015 documented as of this encounter (statuses as of 01/20/2022) [facility] History of Past illness Narrative* Problem Noted Date Resolved Date Medicare annual wellness visit, subsequent 10/1111/24/2015 Diabetes mellitus with neuropathy 10/11/2014 11/24/2015 Medicare annual wellness visit, initial 09/28/19 14 11/24/2015 Tubular adenoma of rectum 02/25/20112015 Special screening for malignant neoplasms, colon 11/12/2008 11/24/2015 Benign neoplasm of colon 11/12/2008 016 Internal hemorrhoids without mention of complica tion 11/12/2008 10/14/2015 Other specified disorders of rotator cuff syndrome of shoulder and allied disorders 02/16/2006 10/18/2016 Malignant neoplasm of corpus uteri, except isthm us 11/24/2015 Overview: Uterine cancer HYPERLIPIDEMIA NEC/NOS 6 Lumbago 06/15/2016 DIABETES MELLITUS TYPE II UNCONTR UNCOMPL 07/18/2014 HYPERTENSION NOS 10/14/2015 documented as of this encounter (statuses as of 02/02/2022) [facility] of Past illness Narrative* Problem Noted Date Resolved Date Medicare annual wellness visit, subsequent 10/1111/24/2015 Diabetes mellitus with neuropathy 10/11/2014 11/24/2015 Medicare annual wellness visit, initial 09/28/19 14 11/24/2015 Tubular adenoma of rectum 02/25/20112015 Special screening for malignant neoplasms, colon 11/12/2008 11/24/2015 Benign neoplasm of colon 11/12/2008 016 Internal hemorrhoids without mention of complica tion 11/12/2008 10/14/2015 Other specified disorders of rotator cuff syndrome of shoulder and allied disorders 02/16/2006 10/18/2016 Malignant neoplasm of corpus uteri, except isthm us 11/24/2015 Overview: Uterine cancer HYPERLIPIDEMIA NEC/NOS 6 Lumbago 06/15/2016 DIABETES MELLITUS TYPE II UNCONTR UNCOMPL 07/18/2014 HYPERTENSION NOS 10/14/2015 documented as of this encounter (statuses as of 02/12/2022) [facility] of Past illness Narrative* Problem Noted Date Resolved Date Medicare annual wellness visit, subsequent 10/1111/24/2015 Diabetes mellitus with neuropathy 10/11/2014 11/24/2015 Medicare annual wellness visit, initial 09/28/19 14 11/24/2015 Tubular adenoma of rectum 02/25/20112015 Special screening for malignant neoplasms, colon 11/12/2008 11/24/2015 Benign neoplasm of colon 11/12/2008 016 Internal hemorrhoids without mention of complica tion 11/12/2008 10/14/2015 Other specified disorders of rotator cuff syndrome of shoulder and allied disorders 02/16/2006 10/18/2016 Malignant neoplasm of corpus uteri, except isthm us 11/24/2015 Overview: Uterine cancer HYPERLIPIDEMIA NEC/NOS 6 Lumbago 06/15/2016 DIABETES MELLITUS TYPE II UNCONTR UNCOMPL 07/18/2014 HYPERTENSION NOS 10/14/2015 documented as of this encounter (statuses as of 02/24/2022) [facility] of Past illness Narrative* Problem Noted Date Resolved Date Medicare annual wellness visit, subsequent 10/1111/24/2015 Diabetes mellitus with neuropathy 10/11/2014 11/24/2015 Medicare annual wellness visit, initial 09/28/19 14 11/24/2015 Tubular adenoma of rectum 02/25/20112015 Special screening for malignant neoplasms, colon 11/12/2008 11/24/2015 Benign neoplasm of colon 11/12/2008 016 Internal hemorrhoids without mention of complica tion 11/12/2008 10/14/2015 Other specified disorders of rotator cuff syndrome of shoulder and allied disorders 02/16/2006 10/18/2016 Malignant neoplasm of corpus uteri, except isthm us 11/24/2015 Overview: Uterine cancer HYPERLIPIDEMIA NEC/NOS 6 Lumbago 06/15/2016 DIABETES MELLITUS TYPE II UNCONTR UNCOMPL 07/18/2014 HYPERTENSION NOS 10/14/2015 documented as of this encounter (statuses as of 05/05/2022) [facility]01-[facility]-2015 History of Past illness Narrative* Problem Noted Date Resolved Date Medicare annual wellness visit, subsequent 10/1111/24/2015 Diabetes mellitus with neuropathy 10/11/2014 11/24/2015 Medicare annual wellness visit, initial 09/28/19 14 11/24/2015 Tubular adenoma of rectum 02/25/20112015 Special screening for malignant neoplasms, colon 11/12/2008 11/24/2015 Benign neoplasm of colon 11/12/2008 016 Internal hemorrhoids without mention of complica tion 11/12/2008 10/14/2015 Other specified disorders of rotator cuff syndrome of shoulder and allied disorders 02/16/2006 10/18/2016 Malignant neoplasm of corpus uteri, except isthm us 11/24/2015 Overview: Uterine cancer HYPERLIPIDEMIA NEC/NOS 6 Lumbago 06/15/2016 DIABETES MELLITUS TYPE II UNCONTR UNCOMPL 07/18/2014 HYPERTENSION NOS 10/14/2015 documented as of this encounter (statuses as of 05/11/2022) [facility]2015 History of Past illness Narrative* Problem Noted Date Resolved Date Medicare annual wellness visit, subsequent 10/1111/24/2015 Diabetes mellitus with neuropathy 10/11/2014 11/24/2015 Medicare annual wellness visit, initial 09/28/19 14 11/24/2015 Tubular adenoma of rectum 02/25/20112015 Special screening for malignant neoplasms, colon 11/12/2008 11/24/2015 Benign neoplasm of colon 11/12/2008 016 Internal hemorrhoids without mention of complica tion 11/12/2008 10/14/2015 Other specified disorders of rotator cuff syndrome of shoulder and allied disorders 02/16/2006 10/18/2016 Malignant neoplasm of corpus uteri, except isthm 11/24/2015 Overview: Uterine cancer HYPERLIPIDEMIA NEC/NOS 6 Lumbago 06/15/2016 DIABETES MELLITUS TYPE II UNCONTR UNCOMPL 07/18/2014 HYPERTENSION NOS 10/14/2015 documented as of this encounter (statuses as of 06/17/2022) [facility]2015 History of Past illness Narrative* Problem Noted Date Resolved Date Medicare annual wellness visit, subsequent 10/1111/24/2015 Diabetes mellitus with neuropathy 10/11/2014 11/24/2015 Medicare annual wellness visit, initial 09/28/19 14 11/24/2015 Tubular adenoma of rectum 02/25/20112015 Special screening for malignant neoplasms, colon 11/12/2008 11/24/2015 Benign neoplasm of colon 11/12/2008 016 Internal hemorrhoids without mention of complica tion 11/12/2008 10/14/2015 Other specified disorders of rotator cuff syndrome of shoulder and allied disorders 02/16/2006 10/18/2016 Malignant neoplasm of corpus uteri, except isthm us 11/24/2015 Overview: Uterine cancer HYPERLIPIDEMIA NEC/NOS 6 Lumbago 06/15/2016 DIABETES MELLITUS TYPE II UNCONTR UNCOMPL 07/18/2014 HYPERTENSION NOS 10/14/2015 documented as of this encounter (statuses as of 06/24/2022) [facility]2015 History of Past illness Narrative* Problem Noted Date Resolved Date Medicare annual wellness visit, subsequent 10/1111/24/2015 Diabetes mellitus with neuropathy 10/11/2014 11/24/2015 Medicare annual wellness visit, initial 09/28/19 14 11/24/2015 Tubular adenoma of rectum 02/25/20112015 Special screening for malignant neoplasms, colon 11/12/2008 11/24/2015 Benign neoplasm of colon 11/12/2008 016 Internal hemorrhoids without mention of complica tion 11/12/2008 10/14/2015 Other specified disorders of rotator cuff syndrome of shoulder and allied disorders 02/16/2006 10/18/2016 Malignant neoplasm of corpus uteri, except isthm us 11/24/2015 Overview: Uterine cancer HYPERLIPIDEMIA NEC/NOS 6 Lumbago 06/15/2016 DIABETES MELLITUS TYPE II UNCONTR UNCOMPL 07/18/2014 HYPERTENSION NOS 10/14/2015 documented as of this encounter (statuses as of 08/10/2022) [facility]2015 History of Past illness Narrative* Problem Noted Date Resolved Date Medicare annual wellness visit, subsequent 10/1111/24/2015 Diabetes mellitus with neuropathy 10/11/2014 11/24/2015 Medicare annual wellness visit, initial 09/28/19 14 11/24/2015 Tubular adenoma of rectum 02/25/20112015 Special screening for malignant neoplasms, colon 11/12/2008 11/24/2015 Benign neoplasm of colon 11/12/2008 016 Internal hemorrhoids without mention of complica tion 11/12/2008 10/14/2015 Other specified disorders of rotator cuff syndrome of shoulder and allied disorders 02/16/2006 10/18/2016 Malignant neoplasm of corpus uteri, except isthm us 11/24/2015 Overview: Uterine cancer HYPERLIPIDEMIA NEC/NOS 6 Lumbago 06/15/2016 DIABETES MELLITUS TYPE II UNCONTR UNCOMPL 07/18/2014 HYPERTENSION NOS 10/14/2015 documented as of this encounter (statuses as of 08/10/2022) [facility]2015 History of Past illness Narrative* Problem Noted Date Resolved Date Medicare annual wellness visit, subsequent 10/1111/24/2015 Diabetes mellitus with neuropathy 10/11/2014 11/24/2015 Medicare annual wellness visit, initial 09/28/19 14 11/24/2015 Tubular adenoma of rectum 02/25/20112015 Special screening for malignant neoplasms, colon 11/12/2008 11/24/2015 Benign neoplasm of colon 11/12/2008 016 Internal hemorrhoids without mention of complica tion 11/12/2008 10/14/2015 Other specified disorders of rotator cuff syndrome of shoulder and allied disorders 02/16/2006 10/18/2016 Malignant neoplasm of corpus uteri, except isthm us 11/24/2015 Overview: Uterine cancer HYPERLIPIDEMIA NEC/NOS 6 Lumbago 06/15/2016 DIABETES MELLITUS TYPE II UNCONTR UNCOMPL 07/18/2014 HYPERTENSION NOS 10/14/2015 documented as of this encounter (statuses as of 09/01/2022) [facility]2015 History of Past illness Narrative* Problem Noted Date Resolved Date Medicare annual wellness visit, subsequent 10/1111/24/2015 Diabetes mellitus with neuropathy 10/11/2014 11/24/2015 Medicare annual wellness visit, initial 09/28/19 14 11/24/2015 Tubular adenoma of rectum 02/25/20112015 Special screening for malignant neoplasms, colon 11/12/2008 11/24/2015 Benign neoplasm of colon 11/12/2008 016 Internal hemorrhoids without mention of complica tion 11/12/2008 10/14/2015 Other specified disorders of rotator cuff syndrome of shoulder and allied disorders 02/16/2006 10/18/2016 Malignant neoplasm of corpus uteri, except isthm us 11/24/2015 Overview: Uterine cancer HYPERLIPIDEMIA NEC/NOS 6 Lumbago 06/15/2016 DIABETES MELLITUS TYPE II UNCONTR UNCOMPL 07/18/2014 HYPERTENSION NOS 10/14/2015 documented as of this encounter (statuses as of 09/20/2022) [facility]2015 History of Past illness Narrative* Problem Noted Date Resolved Date Medicare annual wellness visit, subsequent 10/1111/24/2015 Diabetes mellitus with neuropathy 10/11/2014 11/24/2015 Medicare annual wellness visit, initial 09/28/19 14 11/24/2015 Tubular adenoma of rectum 02/25/20112015 Special screening for malignant neoplasms, colon 11/12/2008 11/24/2015 Benign neoplasm of colon 11/12/2008 016 Internal hemorrhoids without mention of complica tion 11/12/2008 10/14/2015 Other specified disorders of rotator cuff syndrome of shoulder and allied disorders 02/16/2006 10/18/2016 Malignant neoplasm of corpus uteri, except isthm us 11/24/2015 Overview: Uterine cancer HYPERLIPIDEMIA NEC/NOS 6 Lumbago 06/15/2016 DIABETES MELLITUS TYPE II UNCONTR UNCOMPL 07/18/2014 HYPERTENSION NOS 10/14/2015 documented as of this encounter (statuses as of 09/20/2022) [facility]2015 History of Past illness Narrative* Problem Noted Date Resolved Date Medicare annual wellness visit, subsequent 10/1111/24/2015 Diabetes mellitus with neuropathy 10/11/2014 11/24/2015 Medicare annual wellness visit, initial 09/28/19 14 11/24/2015 Tubular adenoma of rectum 02/25/20112015 Special screening for malignant neoplasms, colon 11/12/2008 11/24/2015 Benign neoplasm of colon 11/12/2008 016 Internal hemorrhoids without mention of complica tion 11/12/2008 10/14/2015 Other specified disorders of rotator cuff syndrome of shoulder and allied disorders 02/16/2006 10/18/2016 Malignant neoplasm of corpus uteri, except isthm us 11/24/2015 Overview: Uterine cancer HYPERLIPIDEMIA NEC/NOS 6 Lumbago 06/15/2016 DIABETES MELLITUS TYPE II UNCONTR UNCOMPL 07/18/2014 HYPERTENSION NOS 10/14/2015 documented as of this encounter (statuses as of 11/09/2022) [facility]2015 History of Past illness Narrative* Problem Noted Date Resolved Date Medicare annual wellness visit, subsequent 10/1111/24/2015 Diabetes mellitus with neuropathy 10/11/2014 11/24/2015 Medicare annual wellness visit, initial 09/28/19 14 11/24/2015 Tubular adenoma of rectum 02/25/20112015 Special screening for malignant neoplasms, colon 11/12/2008 11/24/2015 Benign neoplasm of colon 11/12/2008 016 Internal hemorrhoids without mention of complica tion 11/12/2008 10/14/2015 Other specified disorders of rotator cuff syndrome of shoulder and allied disorders 02/16/2006 10/18/2016 Malignant neoplasm of corpus uteri, except isthm us 11/24/2015 Overview: Uterine cancer HYPERLIPIDEMIA NEC/NOS 6 Lumbago 06/15/2016 DIABETES MELLITUS TYPE II UNCONTR UNCOMPL 07/18/2014 HYPERTENSION NOS 10/14/2015 documented as of this encounter (statuses as of 11/11/2022) [facility]2015 History of Past illness Narrative* Problem Noted Date Resolved Date Medicare annual wellness visit, subsequent 10/1111/24/2015 Diabetes mellitus with neuropathy 10/11/2014 11/24/2015 Medicare annual wellness visit, initial 09/28/19 14 11/24/2015 Tubular adenoma of rectum 02/25/20112015 Special screening for malignant neoplasms, colon 11/12/2008 11/24/2015 Benign neoplasm of colon 11/12/2008 016 Internal hemorrhoids without mention of complica tion 11/12/2008 10/14/2015 Other specified disorders of rotator cuff syndrome of shoulder and allied disorders 02/16/2006 10/18/2016 Malignant neoplasm of corpus uteri, except isthm us 11/24/2015 Overview: Uterine cancer HYPERLIPIDEMIA NEC/NOS 6 Lumbago 06/15/2016 DIABETES MELLITUS TYPE II UNCONTR UNCOMPL 07/18/2014 HYPERTENSION NOS 10/14/2015 documented as of this encounter (statuses as of 12/02/2022) [facility]2015 History of Past illness Narrative* Problem Noted Date Resolved Date Medicare annual wellness visit, subsequent 10/1111/24/2015 Diabetes mellitus with neuropathy 10/11/2014 11/24/2015 Medicare annual wellness visit, initial 09/28/19 14 11/24/2015 Tubular adenoma of rectum 02/25/20112015 Special screening for malignant neoplasms, colon 11/12/2008 11/24/2015 Benign neoplasm of colon 11/12/2008 016 Internal hemorrhoids without mention of complica tion 11/12/2008 10/14/2015 Other specified disorders of rotator cuff syndrome of shoulder and allied disorders 02/16/2006 10/18/2016 Malignant neoplasm of corpus uteri, except isthm us 11/24/2015 Overview: Uterine cancer HYPERLIPIDEMIA NEC/NOS 6 Lumbago 06/15/2016 DIABETES MELLITUS TYPE II UNCONTR UNCOMPL 07/18/2014 HYPERTENSION NOS 10/14/2015 documented as of this encounter (statuses as of 01/27/2023) [facility]2015 History of Past illness Narrative* Problem Noted Date Resolved Date Medicare annual wellness visit, subsequent 10/1111/24/2015 Diabetes mellitus with neuropathy 10/11/2014 11/24/2015 Medicare annual wellness visit, initial 09/28/19 14 11/24/2015 Tubular adenoma of rectum 02/25/20112015 Special screening for malignant neoplasms, colon 11/12/2008 11/24/2015 Benign neoplasm of colon 11/12/2008 016 Internal hemorrhoids without mention of complica tion 11/12/2008 10/14/2015 Other specified disorders of rotator cuff syndrome of shoulder and allied disorders 02/16/2006 10/18/2016 Malignant neoplasm of corpus uteri, except isthm us 11/24/2015 Overview: Uterine cancer HYPERLIPIDEMIA NEC/NOS 6 Lumbago 06/15/2016 DIABETES MELLITUS TYPE II UNCONTR UNCOMPL 07/18/2014 HYPERTENSION NOS 10/14/2015 documented as of this encounter (statuses as of 03/11/2023) [facility]2015 History of Past illness Narrative* Problem Noted Date Resolved Date Medicare annual wellness visit, subsequent 10/1111/24/2015 Diabetes mellitus with neuropathy 10/11/2014 11/24/2015 Medicare annual wellness visit, initial 09/28/19 14 11/24/2015 Tubular adenoma of rectum 02/25/20112015 Special screening for malignant neoplasms, colon 11/12/2008 11/24/2015 Benign neoplasm of colon 11/12/2008 016 Internal hemorrhoids without mention of complica tion 11/12/2008 10/14/2015 Other specified disorders of rotator cuff syndrome of shoulder and allied disorders 02/16/2006 10/18/2016 Malignant neoplasm of corpus uteri, except isthm us 11/24/2015 Overview: Uterine cancer HYPERLIPIDEMIA NEC/NOS 6 Lumbago 06/15/2016 DIABETES MELLITUS TYPE II UNCONTR UNCOMPL 07/18/2014 HYPERTENSION NOS 10/14/2015 documented as of this encounter (statuses as of 03/11/2023) [facility]2015 History of Past illness Narrative* Problem Noted Date Diagnosed Date Resolved Date Medicare annual wellness visit, subsequent 10/11/2014 11/24/2015 Diabetes mellitus with neuropathy 10/11/2014 11/24/2015 Medicare annual wellness visit, initial 09/28/2013 11/24/2015 Tubular adenoma of rectum 02/25/2011 Special screening for malign ant neoplasms, colon 11/12/2008 11/24/2015 Benign neoplasm of colon 11/12/200803/2016 Internal hemorrhoids without mention of complication 11/12/2008 10/14/2015 Other specified disorders of rotator cuff syndrome of shoulder and allied disorders 02/16/2006 10/18/2016 Malignant neoplasm of corpus uteri, except isthmus 11/24/2015 Overview: Uterine cancer HYPERLIPIDEMIA NEC/NOS 10/14 Lumbago 06/15/2016 DIABETES MELLITUS TYPE II UNCONTR UNCOMPL 07/18/2014 HYPERTENSION NOS 10/14/2015 documented as of this encounter (statuses as of 04/11/2023) [facility]2015 History of Past illness Narrative* Problem Noted Date Diagnosed Date Resolved Date Medicare annual wellness visit, subsequent 10/11/2014 11/24/2015 Diabetes mellitus with neuropathy 10/11/2014 11/24/2015 Medicare annual wellness visit, initial 09/28/2013 11/24/2015 Tubular adenoma of rectum 02/25/2011 Special screening for malign ant neoplasms, colon 11/12/2008 11/24/2015 Benign neoplasm of colon 11/12/200803/2016 Internal hemorrhoids without mention of complication 11/12/2008 10/14/2015 Other specified disorders of rotator cuff syndrome of shoulder and allied disorders 02/16/2006 10/18/2016 Malignant neoplasm of corpus uteri, except isthmus 11/24/2015 Overview: Uterine cancer HYPERLIPIDEMIA NEC/NOS 10/14 Lumbago 06/15/2016 DIABETES MELLITUS TYPE II UNCONTR UNCOMPL 07/18/2014 HYPERTENSION NOS 10/14/2015 documented as of this encounter (statuses as of 04/14/2023) [facility]2015 History of Past illness Narrative* Problem Noted Date Diagnosed Date Resolved Date Medicare annual wellness visit, subsequent 10/11/2014 11/24/2015 Diabetes mellitus with neuropathy 10/11/2014 11/24/2015 Medicare annual wellness visit, initial 09/28/2013 11/24/2015 Tubular adenoma of rectum 02/25/2011 Special screening for malign ant neoplasms, colon 11/12/2008 11/24/2015 Benign neoplasm of colon 11/12/200803/2016 Internal hemorrhoids without mention of complication 11/12/2008 10/14/2015 Other specified disorders of rotator cuff syndrome of shoulder and allied disorders 02/16/2006 10/18/2016 Malignant neoplasm of corpus uteri, except isthmus 11/24/2015 Overview: Uterine cancer HYPERLIPIDEMIA NEC/NOS 10/14 Lumbago 06/15/2016 DIABETES MELLITUS TYPE II UNCONTR UNCOMPL 07/18/2014 HYPERTENSION NOS 10/14/2015 documented as of this encounter (statuses as of 04/21/2023) [facility]2015 History of Past illness Narrative* Problem Noted Date Diagnosed Date Resolved Date Medicare annual wellness visit, subsequent 10/11/2014 11/24/2015 Diabetes mellitus with neuropathy 10/11/2014 11/24/2015 Medicare annual wellness visit, initial 09/28/2013 11/24/2015 Tubular adenoma of rectum 02/25/2011 Special screening for malign ant neoplasms, colon 11/12/2008 11/24/2015 Benign neoplasm of colon 11/12/200803/2016 Internal hemorrhoids without mention of complication 11/12/2008 10/14/2015 Other specified disorders of rotator cuff syndrome of shoulder and allied disorders 02/16/2006 10/18/2016 Malignant neoplasm of corpus uteri, except isthmus 11/24/2015 Overview: Uterine cancer HYPERLIPIDEMIA NEC/NOS 10/14 Lumbago 06/15/2016 DIABETES MELLITUS TYPE II UNCONTR UNCOMPL 07/18/2014 HYPERTENSION NOS 10/14/2015 documented as of this encounter (statuses as of 05/17/2023) [facility]2015 History of Past illness Narrative* Problem Noted Date Diagnosed Date Resolved Date Medicare annual wellness visit, subsequent 10/11/2014 11/24/2015 Diabetes mellitus with neuropathy 10/11/2014 11/24/2015 Medicare annual wellness visit, initial 09/28/2013 11/24/2015 Tubular adenoma of rectum 02/25/2011 Special screening for malign ant neoplasms, colon 11/12/2008 11/24/2015 Benign neoplasm of colon 11/12/200803/2016 Internal hemorrhoids without mention of complication 11/12/2008 10/14/2015 Other specified disorders of rotator cuff syndrome of shoulder and allied disorders 02/16/2006 10/18/2016 Malignant neoplasm of corpus uteri, except isthmus 11/24/2015 Overview: Uterine cancer HYPERLIPIDEMIA NEC/NOS 10/14 Lumbago 06/15/2016 DIABETES MELLITUS TYPE II UNCONTR UNCOMPL 07/18/2014 HYPERTENSION NOS 10/14/2015 documented as of this encounter (statuses as of 06/03/2023) [facility] History of Past illness Narrative* Problem Noted Date Diagnosed Date Resolved Date Medicare annual wellness visit, subsequent 10/11/2014 11/24/2015 Diabetes mellitus with neuropathy 10/11/2014 11/24/2015 Medicare annual wellness visit, initial 09/28/2013 11/24/2015 Tubular adenoma of rectum 02/25/2011 Special screening for malign ant neoplasms, colon 11/12/2008 11/24/2015 Benign neoplasm of colon 11/12/200803/2016 Internal hemorrhoids without mention of complication 11/12/2008 10/14/2015 Other specified disorders of rotator cuff syndrome of shoulder and allied disorders 02/16/2006 10/18/2016 Malignant neoplasm of corpus uteri, except isthmus 11/24/2015 Overview: Uterine cancer HYPERLIPIDEMIA NEC/NOS 10/14 Lumbago 06/15/2016 DIABETES MELLITUS TYPE II UNCONTR UNCOMPL 07/18/2014 HYPERTENSION NOS 10/14/2015 documented as of this encounter (statuses as of 06/28/2023) [facility] History of Past illness Narrative* Problem Noted Date Diagnosed Date Resolved Date Medicare annual wellness visit, subsequent 10/11/2014 11/24/2015 Diabetes mellitus with neuropathy 10/11/2014 11/24/2015 Medicare annual wellness visit, initial 09/28/2013 11/24/2015 Tubular adenoma of rectum 02/25/2011 Special screening for malign ant neoplasms, colon 11/12/2008 11/24/2015 Benign neoplasm of colon 11/12/200803/2016 Internal hemorrhoids without mention of complication 11/12/2008 10/14/2015 Other specified disorders of rotator cuff syndrome of shoulder and allied disorders 02/16/2006 10/18/2016 Malignant neoplasm of corpus uteri, except isthmus 11/24/2015 Overview: Uterine cancer HYPERLIPIDEMIA NEC/NOS 10/14 Lumbago 06/15/2016 DIABETES MELLITUS TYPE II UNCONTR UNCOMPL 07/18/2014 HYPERTENSION NOS 10/14/2015 documented as of this encounter (statuses as of 07/08/2023) [facility] History of Past illness Narrative* Problem Noted Date Diagnosed Date Resolved Date Medicare annual wellness visit, subsequent 10/11/2014 11/24/2015 Diabetes mellitus with neuropathy 10/11/2014 11/24/2015 Medicare annual wellness visit, initial 09/28/2013 11/24/2015 Tubular adenoma of rectum 02/25/2011 Special screening for malign ant neoplasms, colon 11/12/2008 11/24/2015 Benign neoplasm of colon 11/12/200803/2016 Internal hemorrhoids without mention of complication 11/12/2008 10/14/2015 Other specified disorders of rotator cuff syndrome of shoulder and allied disorders 02/16/2006 10/18/2016 Malignant neoplasm of corpus uteri, except isthmus 11/24/2015 Overview: Uterine cancer HYPERLIPIDEMIA NEC/NOS 10/14 Lumbago 06/15/2016 DIABETES MELLITUS TYPE II UNCONTR UNCOMPL 07/18/2014 HYPERTENSION NOS 10/14/2015 documented as of this encounter (statuses as of 07/28/2023) [facility] History of Past illness Narrative* Problem Noted Date Diagnosed Date Resolved Date Medicare annual wellness visit, subsequent 10/11/2014 11/24/2015 Diabetes mellitus with neuropathy 10/11/2014 11/24/2015 Medicare annual wellness visit, initial 09/28/2013 11/24/2015 Tubular adenoma of rectum 02/25/2011 Special screening for malign ant neoplasms, colon 11/12/2008 11/24/2015 Benign neoplasm of colon 11/12/200803/2016 Internal hemorrhoids without mention of complication 11/12/2008 10/14/2015 Other specified disorders of rotator cuff syndrome of shoulder and allied disorders 02/16/2006 10/18/2016 Malignant neoplasm of corpus uteri, except isthmus 11/24/2015 Overview: Uterine cancer HYPERLIPIDEMIA NEC/NOS 10/14 Lumbago 06/15/2016 DIABETES MELLITUS TYPE II UNCONTR UNCOMPL 07/18/2014 HYPERTENSION NOS 10/14/2015 documented as of this encounter (statuses as of 08/09/2023) [facility] History of Past illness Narrative* Problem Noted Date Diagnosed Date Resolved Date Medicare annual wellness visit, subsequent 10/11/2014 11/24/2015 Diabetes mellitus with neuropathy 10/11/2014 11/24/2015 Medicare annual wellness visit, initial 09/28/2013 11/24/2015 Tubular adenoma of rectum 02/25/2011 Special screening for malign ant neoplasms, colon 11/12/2008 11/24/2015 Benign neoplasm of colon 11/12/200803/2016 Internal hemorrhoids without mention of complication 11/12/2008 10/14/2015 Other specified disorders of rotator cuff syndrome of shoulder and allied disorders 02/16/2006 10/18/2016 Malignant neoplasm of corpus uteri, except isthmus 11/24/2015 Overview: Uterine cancer HYPERLIPIDEMIA NEC/NOS 10/14 Lumbago 06/15/2016 DIABETES MELLITUS TYPE II UNCONTR UNCOMPL 07/18/2014 HYPERTENSION NOS 10/14/2015 documented as of this encounter (statuses as of 08/10/2023) [facility] History of Past illness Narrative* Problem Noted Date Diagnosed Date Resolved Date Medicare annual wellness visit, subsequent 10/11/2014 11/24/2015 Diabetes mellitus with neuropathy 10/11/2014 11/24/2015 Medicare annual wellness visit, initial 09/28/2013 11/24/2015 Tubular adenoma of rectum 02/25/2011 Special screening for malign ant neoplasms, colon 11/12/2008 11/24/2015 Benign neoplasm of colon 11/12/200803/2016 Internal hemorrhoids without mention of complication 11/12/2008 10/14/2015 Other specified disorders of rotator cuff syndrome of shoulder and allied disorders 02/16/2006 10/18/2016 Malignant neoplasm of corpus uteri, except isthmus 11/24/2015 Overview: Uterine cancer HYPERLIPIDEMIA NEC/NOS 10/14 Lumbago 06/15/2016 DIABETES MELLITUS TYPE II UNCONTR UNCOMPL 07/18/2014 HYPERTENSION NOS 10/14/2015 documented as of this encounter (statuses as of 08/16/2023) [facility] History of Past illness Narrative* Problem Noted Date Diagnosed Date Resolved Date Medicare annual wellness visit, subsequent 10/11/2014 11/24/2015 Diabetes mellitus with neuropathy 10/11/2014 11/24/2015 Medicare annual wellness visit, initial 09/28/2013 11/24/2015 Tubular adenoma of rectum 02/25/2011 Special screening for malign ant neoplasms, colon 11/12/2008 11/24/2015 Benign neoplasm of colon 11/12/200803/2016 Internal hemorrhoids without mention of complication 11/12/2008 10/14/2015 Other specified disorders of rotator cuff syndrome of shoulder and allied disorders 02/16/2006 10/18/2016 Malignant neoplasm of corpus uteri, except isthmus 11/24/2015 Overview: Uterine cancer HYPERLIPIDEMIA NEC/NOS 10/14 Lumbago 06/15/2016 DIABETES MELLITUS TYPE II UNCONTR UNCOMPL 07/18/2014 HYPERTENSION NOS 10/14/2015 documented as of this encounter (statuses as of 08/17/2023) [facility] History of Past illness Narrative* Problem Noted Date Diagnosed Date Resolved Date Medicare annual wellness visit, subsequent 10/11/2014 11/24/2015 Diabetes mellitus with neuropathy 10/11/2014 11/24/2015 Medicare annual wellness visit, initial 09/28/2013 11/24/2015 Tubular adenoma of rectum 02/25/2011 Special screening for malign ant neoplasms, colon 11/12/2008 11/24/2015 Benign neoplasm of colon 11/12/200803/2016 Internal hemorrhoids without mention of complication 11/12/2008 10/14/2015 Other specified disorders of rotator cuff syndrome of shoulder and allied disorders 02/16/2006 10/18/2016 Malignant neoplasm of corpus uteri, except isthmus 11/24/2015 Overview: Uterine cancer HYPERLIPIDEMIA NEC/NOS 10/14 Lumbago 06/15/2016 DIABETES MELLITUS TYPE II UNCONTR UNCOMPL 07/18/2014 HYPERTENSION NOS 10/14/2015 documented as of this encounter (statuses as of 09/02/2023) [facility] History of Past illness Narrative* Problem Noted Date Diagnosed Date Resolved Date Medicare annual wellness visit, subsequent 10/11/2014 11/24/2015 Diabetes mellitus with neuropathy 10/11/2014 11/24/2015 Medicare annual wellness visit, initial 09/28/2013 11/24/2015 Tubular adenoma of rectum 02/25/2011 Special screening for malign ant neoplasms, colon 11/12/2008 11/24/2015 Benign neoplasm of colon 11/12/200803/2016 Internal hemorrhoids without mention of complication 11/12/2008 10/14/2015 Other specified disorders of rotator cuff syndrome of shoulder and allied disorders 02/16/2006 10/18/2016 Malignant neoplasm of corpus uteri, except isthmus 11/24/2015 Overview: Uterine cancer HYPERLIPIDEMIA NEC/NOS 10/14 Lumbago 06/15/2016 DIABETES MELLITUS TYPE II UNCONTR UNCOMPL 07/18/2014 HYPERTENSION NOS 10/14/2015 documented as of this encounter (statuses as of 10/20/2023) [facility] History of Past illness Narrative* Problem Noted Date Diagnosed Date Resolved Date Medicare annual wellness visit, subsequent 10/11/2014 11/24/2015 Diabetes mellitus with neuropathy 10/11/2014 11/24/2015 Medicare annual wellness visit, initial 09/28/2013 11/24/2015 Tubular adenoma of rectum 02/25/2011 Special screening for malign ant neoplasms, colon 11/12/2008 11/24/2015 Benign neoplasm of colon 11/12/200803/2016 Internal hemorrhoids without mention of complication 11/12/2008 10/14/2015 Other specified disorders of rotator cuff syndrome of shoulder and allied disorders 02/16/2006 10/18/2016 Malignant neoplasm of corpus uteri, except isthmus 11/24/2015 Overview: Uterine cancer HYPERLIPIDEMIA NEC/NOS 10/14 Lumbago 06/15/2016 DIABETES MELLITUS TYPE II UNCONTR UNCOMPL 07/18/2014 HYPERTENSION NOS 10/14/2015 documented as of this encounter (statuses as of 10/24/2023) [facility] History of Past illness Narrative* Problem Noted Date Diagnosed Date Resolved Date Medicare annual wellness visit, subsequent 10/11/2014 11/24/2015 Diabetes mellitus with neuropathy 10/11/2014 11/24/2015 Medicare annual wellness visit, initial 09/28/2013 11/24/2015 Tubular adenoma of rectum 02/25/2011 Special screening for malign ant neoplasms, colon 11/12/2008 11/24/2015 Benign neoplasm of colon 11/12/200803/2016 Internal hemorrhoids without mention of complication 11/12/2008 10/14/2015 Other specified disorders of rotator cuff syndrome of shoulder and allied disorders 02/16/2006 10/18/2016 Malignant neoplasm of corpus uteri, except isthmus 11/24/2015 Overview: Uterine cancer HYPERLIPIDEMIA NEC/NOS 10/14 Lumbago 06/15/2016 DIABETES MELLITUS TYPE II UNCONTR UNCOMPL 07/18/2014 HYPERTENSION NOS 10/14/2015 documented as of this encounter (statuses as of 10/26/2023) [facility] History of Past illness Narrative* Problem Noted Date Diagnosed Date Resolved Date Medicare annual wellness visit, subsequent 10/11/2014 11/24/2015 Diabetes mellitus with neuropathy 10/11/2014 11/24/2015 Medicare annual wellness visit, initial 09/28/2013 11/24/2015 Tubular adenoma of rectum 02/25/2011 Special screening for malign ant neoplasms, colon 11/12/2008 11/24/2015 Benign neoplasm of colon 11/12/200803/2016 Internal hemorrhoids without mention of complication 11/12/2008 10/14/2015 Other specified disorders of rotator cuff syndrome of shoulder and allied disorders 02/16/2006 10/18/2016 Malignant neoplasm of corpus uteri, except isthmus 11/24/2015 Overview: Uterine cancer HYPERLIPIDEMIA NEC/NOS 10/14 Lumbago 06/15/2016 DIABETES MELLITUS TYPE II UNCONTR UNCOMPL 07/18/2014 HYPERTENSION NOS 10/14/2015 documented as of this encounter (statuses as of 10/28/2023) [facility] History of Past illness Narrative* Problem Noted Date Diagnosed Date Resolved Date Medicare annual wellness visit, subsequent 10/11/2014 11/24/2015 Diabetes mellitus with neuropathy 10/11/2014 11/24/2015 Medicare annual wellness visit, initial 09/28/2013 11/24/2015 Tubular adenoma of rectum 02/25/2011 Special screening for malign ant neoplasms, colon 11/12/2008 11/24/2015 Benign neoplasm of colon 11/12/200803/2016 Internal hemorrhoids without mention of complication 11/12/2008 10/14/2015 Other specified disorders of rotator cuff syndrome of shoulder and allied disorders 02/16/2006 10/18/2016 Malignant neoplasm of corpus uteri, except isthmus 11/24/2015 Overview: Uterine cancer HYPERLIPIDEMIA NEC/NOS 10/14 Lumbago 06/15/2016 DIABETES MELLITUS TYPE II UNCONTR UNCOMPL 07/18/2014 HYPERTENSION NOS 10/14/2015 documented as of this encounter (statuses as of 11/01/2023) [facility] History of Past illness Narrative* Problem Noted Date Diagnosed Date Resolved Date Medicare annual wellness visit, subsequent 10/11/2014 11/24/2015 Diabetes mellitus with neuropathy 10/11/2014 11/24/2015 Medicare annual wellness visit, initial 09/28/2013 11/24/2015 Tubular adenoma of rectum 02/25/2011 Special screening for malign ant neoplasms, colon 11/12/2008 11/24/2015 Benign neoplasm of colon 11/12/200803/2016 Internal hemorrhoids without mention of complication 11/12/2008 10/14/2015 Other specified disorders of rotator cuff syndrome of shoulder and allied disorders 02/16/2006 10/18/2016 Malignant neoplasm of corpus uteri, except isthmus 11/24/2015 Overview: Uterine cancer HYPERLIPIDEMIA NEC/NOS 10/14 Lumbago 06/15/2016 DIABETES MELLITUS TYPE II UNCONTR UNCOMPL 07/18/2014 HYPERTENSION NOS 10/14/2015 documented as of this encounter (statuses as of 11/08/2023) [facility] History of Past illness Narrative* Problem Noted Date Diagnosed Date Resolved Date Medicare annual wellness visit, subsequent 10/11/2014 11/24/2015 Diabetes mellitus with neuropathy 10/11/2014 11/24/2015 Medicare annual wellness visit, initial 09/28/2013 11/24/2015 Tubular adenoma of rectum 02/25/2011 Special screening for malign ant neoplasms, colon 11/12/2008 11/24/2015 Benign neoplasm of colon 11/12/200803/2016 Internal hemorrhoids without mention of complication 11/12/2008 10/14/2015 Other specified disorders of rotator cuff syndrome of shoulder and allied disorders 02/16/2006 10/18/2016 Malignant neoplasm of corpus uteri, except isthmus 11/24/2015 Overview: Uterine cancer HYPERLIPIDEMIA NEC/NOS 10/14 Lumbago 06/15/2016 DIABETES MELLITUS TYPE II UNCONTR UNCOMPL 07/18/2014 HYPERTENSION NOS 10/14/2015 documented as of this encounter (statuses as of 11/20/2023) [facility] History of Past illness Narrative* Problem Noted Date Diagnosed Date Resolved Date Medicare annual wellness visit, subsequent 10/11/2014 11/24/2015 Diabetes mellitus with neuropathy 10/11/2014 11/24/2015 Medicare annual wellness visit, initial 09/28/2013 11/24/2015 Tubular adenoma of rectum 02/25/2011 Special screening for malign ant neoplasms, colon 11/12/2008 11/24/2015 Benign neoplasm of colon 11/12/200803/2016 Internal hemorrhoids without mention of complication 11/12/2008 10/14/2015 Other specified disorders of rotator cuff syndrome of shoulder and allied disorders 02/16/2006 10/18/2016 Malignant neoplasm of corpus uteri, except isthmus 11/24/2015 Overview: Uterine cancer HYPERLIPIDEMIA NEC/NOS 10/14 Lumbago 06/15/2016 DIABETES MELLITUS TYPE II UNCONTR UNCOMPL 07/18/2014 HYPERTENSION NOS 10/14/2015 documented as of this encounter (statuses as of 11/28/2023) [facility] History of Past illness Narrative* Problem Noted Date Diagnosed Date Resolved Date Medicare annual wellness visit, subsequent 10/11/2014 11/24/2015 Diabetes mellitus with neuropathy 10/11/2014 11/24/2015 Medicare annual wellness visit, initial 09/28/2013 11/24/2015 Tubular adenoma of rectum 02/25/2011 Special screening for malign ant neoplasms, colon 11/12/2008 11/24/2015 Benign neoplasm of colon 11/12/200803/2016 Internal hemorrhoids without mention of complication 11/12/2008 10/14/2015 Other specified disorders of rotator cuff syndrome of shoulder and allied disorders 02/16/2006 10/18/2016 Malignant neoplasm of corpus uteri, except isthmus 11/24/2015 Overview: Uterine cancer HYPERLIPIDEMIA NEC/NOS 10/14 Lumbago 06/15/2016 DIABETES MELLITUS TYPE II UNCONTR UNCOMPL 07/18/2014 HYPERTENSION NOS 10/14/2015 documented as of this encounter (statuses as of 12/19/2023) [facility] History of Past illness Narrative* Problem Noted Date Diagnosed Date Resolved Date Medicare annual wellness visit, subsequent 10/11/2014 11/24/2015 Diabetes mellitus with neuropathy 10/11/2014 11/24/2015 Medicare annual wellness visit, initial 09/28/2013 11/24/2015 Tubular adenoma of rectum 02/25/2011 Special screening for malign ant neoplasms, colon 11/12/2008 11/24/2015 Benign neoplasm of colon 11/12/200803/2016 Internal hemorrhoids without mention of complication 11/12/2008 10/14/2015 Other specified disorders of rotator cuff syndrome of shoulder and allied disorders 02/16/2006 10/18/2016 Malignant neoplasm of corpus uteri, except isthmus 11/24/2015 Overview: Uterine cancer HYPERLIPIDEMIA NEC/NOS 10/14 Lumbago 06/15/2016 DIABETES MELLITUS TYPE II UNCONTR UNCOMPL 07/18/2014 HYPERTENSION NOS 10/14/2015 documented as of this encounter (statuses as of 12/26/2023) [facility] History of Past illness Narrative* Problem Noted Date Diagnosed Date Resolved Date Medicare annual wellness visit, subsequent 10/11/2014 11/24/2015 Diabetes mellitus with neuropathy 10/11/2014 11/24/2015 Medicare annual wellness visit, initial 09/28/2013 11/24/2015 Tubular adenoma of rectum 02/25/2011 Special screening for malign ant neoplasms, colon 11/12/2008 11/24/2015 Benign neoplasm of colon 11/12/200803/2016 Internal hemorrhoids without mention of complication 11/12/2008 10/14/2015 Other specified disorders of rotator cuff syndrome of shoulder and allied disorders 02/16/2006 10/18/2016 Malignant neoplasm of corpus uteri, except isthmus 11/24/2015 Overview: Uterine cancer HYPERLIPIDEMIA NEC/NOS 10/14 Lumbago 06/15/2016 DIABETES MELLITUS TYPE II UNCONTR UNCOMPL 07/18/2014 HYPERTENSION NOS 10/14/2015 documented as of this encounter (statuses as of 12/30/2023) [facility] Eugene Ayala [facility] September 04, 2023 1:27pm Note Date/Time September 04, 2023 1:19pm [facility] Medical Records Department [address] [place] [address] Instructions for Home/Discharge Instructions 09/04/23 1318 MR#: [id number] Acct: [id number] Name: CHARLETTE FARMER Rep #:[id number] : 1935 88 From: Eugene Ayala DO PCP: Dr. Maik Fay MD Status :ADM FERNANDO Discharge Instructions Diet Discharge Diet: 1800 Calorie Control Diet Activity Discharge Activity: Return to Normal Activity and Use Walker Weight Bearing Status: Full weight bearing Follow Up Care Test Results: Test results from this visit will be discussed in further detail at your follow- up appointment, if applicable. Discharge Plan Admission Admit Date/Time: 09/03/23 05:16 Primary Reason for Your Visit: Vertigo Attending Provider: Eugene Ayala Primary Care Provider: Maik Fay Consulting Providers: Kaia Mcclain; Lisy Lr Instructions Additional Instructions / Restrictions: Continue to take cephalexin 500 mg twice a day for 5 more days Discharge Orders/Prescriptions Prescriptions: Continued glipizide 5 MG tablet 5 mg PO DAILY Patient Comments: pramipexole 0.25 MG tablet 0.25 mg PO QHS lisinopril 2.5 MG tablet 2.5 mg PO DAILY Patient Comments: metoprolol tartrate 25 MG tablet 25 mg PO BID Patient Comments: insulin glargine 100 UNITS/ML insulin pen 42 units SQ QHS Patient Comments: Inject 42 Units subcutaneously daily at bedtime. allopurinol 100 MG tablet 100 mg PO BIDCM acetaminophen 500 MG tablet 500 mg PO BID aspirin 81 MG tablet,chewable 81 mg PO QHS cholecalciferol (vitamin D3) 10 MCG tablet 10 mcg PO DAILY cyanocobalamin (vitamin B-12) 1,000 MCG capsule 1,000 mcg PO DAILY meclizine 25 mg tablet 25 mg PO 4X/DAY PRN PRN (Reason: Dizziness) Qty: 20 0RF glipizide 2.5 mg tablet extended release 24hr 2.5 mg PO DAILY rosuvastatin 20 mg tablet 20 mg PO QHS spironolacton-hydrochlorothiaz 25-25 mg tablet 0.5 tab PO DAILY melatonin 5 mg capsule 5 mg PO QHS Discontinued cephalexin 500 mg capsule 500 mg PO TID 7 Days Qty: 21 0RF Referrals / Follow Up: Maik Fay MD [Primary Care Provider] - See Referral Note (At your regular appointment time) Disposition Disposition (needs filled in before D/C Order can be placed): Home, Self Care 09/04/23 1327<Electronically signed by Eugene Ayala DO>Eugene Ayala DO CC: Dr. Kaia Mcclain MD; Dr. Maik Fay MD; Dr. Lisy Lr MD ~ Signed [facility] Work Phone: Evaluation note* Diagnosis DM type 2 with diabetic peripheral neuropathy (HCC) Type II or unspecified type diabetes mellitus with neurological manifestations, not stated as uncontrolled [facility] Diagnosis DM type 2 with diabetic peripheral neuropathy (HCC)- Primary Type II or unspecified type diabetes mellitus with neurological manifestations, not stated as uncontrolled Toe injury, right, initial encounter Stage 3b chronic kidney disease (HCC) Essential hypertension Unspecified essential hypertension Mixed hyperlipidemia PAD (peripheral artery disease) (HCC) Peripheral vascular disease, unspecified Restless leg syndrome Restless legs syndrome (RLS) documented [facility] this encounter [facility]* Diagnosis Onychomycosis- Primary Dermatophytosis of nail Pain in toe of right foot Pain in limb Pain in toe of left foot Pain in limb DM type 2 with diabetic peripheral neuropathy (HCC) Type II or unspecified type diabetes mellitus with neurological manifestations, not stated as uncontrolled [facility] Diagnosis Acute gout of right hand, unspecified cause [facility] Diagnosis DM type 2 with diabetic peripheral neuropathy (HCC)- Primary Type II or unspecified type diabetes mellitus with neurological manifestations, not stated as uncontrolled Viral gastroenteritis Intestinal infection due to other organism, not elsewhere classified Essential hypertension Unspecified essential hypertension Mixed hyperlipidemia Restless leg syndrome Restless legs syndrome (RLS) Acute gout of right hand, unspecified cause Stage 3b chronic kidney disease (HCC) Fall in home, initial encounter [facility] Diagnosis DM type 2 with diabetic peripheral neuropathy (HCC)- Primary Type II or unspecified type diabetes mellitus with neurological manifestations, not stated as uncontrolled Stage 3b chronic kidney disease (HCC) [facility] Diagnosis DM type 2 with diabetic peripheral neuropathy (HCC)- Primary Type II or unspecified type diabetes mellitus with neurological manifestations, not stated as uncontrolled Restless leg syndrome Restless legs syndrome (RLS) Fall in home, initial encounter Carpal tunnel syndrome, right Carpal tunnel syndrome PAD (peripheral artery disease) ([facility]) Peripheral vascular disease, unspecified [facility] Diagnosis DM type 2 with diabetic peripheral neuropathy (HCC) Type II or unspecified type diabetes mellitus with neurological manifestations, not stated as uncontrolled [facility] Diagnosis DM type 2 with diabetic peripheral neuropathy (HCC)- Primary Type II or unspecified type diabetes mellitus with neurological manifestations, not stated as uncontrolled Essential hypertension Unspecified essential hypertension Mixed hyperlipidemia Need for influenza vaccination Need for prophylactic vaccination and inoculation against influenza [facility] Diagnosis Onychomycosis- Primary Dermatophytosis of nail DM type 2 with diabetic peripheral neuropathy (HCC) Type II or unspecified type diabetes mellitus with neurological manifestations, not stated as uncontrolled Pain in toe of right foot Pain in limb Pain in toe of left foot Pain in limb [facility] Diagnosis DM type 2 with diabetic peripheral neuropathy (HCC) Type II or unspecified type diabetes mellitus with neurological manifestations, not stated as uncontrolled Essential hypertension Unspecified essential hypertension Mixed hyperlipidemia Restless leg syndrome Restless legs syndrome (RLS) Acute gout of right hand, unspecified cause [facility] Diagnosis DM type 2 with diabetic peripheral neuropathy (HCC) Type II or unspecified type diabetes mellitus with neurological manifestations, not stated as uncontrolled [facility] Diagnosis DM type 2 with diabetic peripheral neuropathy (HCC)- Primary Type II or unspecified type diabetes mellitus with neurological manifestations, not stated as uncontrolled Essential hypertension Unspecified essential hypertension Mixed hyperlipidemia Restless leg syndrome Restless legs syndrome (RLS) Stage 3b chronic kidney disease (HCC) PAD (peripheral artery disease) (HCC) Peripheral vascular disease, unspecified Pernicious anemia Idiopathic chronic gout without tophus, unspecified site Carpal tunnel syndrome, right Carpal tunnel syndrome Type 2 diabetes mellitus with diabetic peripheral angiopathy without gangrene, with long-term current use of insulin (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, with long-term current use of insulin (HCC) [facility] Diagnosis Mixed hyperlipidemia- Primary [facility] Diagnosis DM type 2 with diabetic peripheral neuropathy (HCC)- Primary Type II or unspecified type diabetes mellitus with neurological manifestations, not stated as uncontrolled Onychomycosis Dermatophytosis of nail Pain in toe of right foot Pain in limb Pain in toe of left foot Pain in limb [facility] Diagnosis Essential hypertension Unspecified essential hypertension Restless leg syndrome Restless legs syndrome (RLS) [facility] Diagnosis DM type 2 with diabetic peripheral neuropathy (HCC)- Primary Type II or unspecified type diabetes mellitus with neurological manifestations, not stated as uncontrolled Onychomycosis Dermatophytosis of nail Pain in toe of right foot Pain in limb Pain in toe of left foot Pain in limb [facility] Diagnosis Essential hypertension Unspecified essential hypertension [facility] Diagnosis Carpal tunnel syndrome of right wrist- Primary Carpal tunnel syndrome Carpal tunnel syndrome of right wrist Carpal tunnel syndrome [facility] Diagnosis Preoperative examination- Primary Preoperative examination, unspecified DM type 2 with diabetic peripheral neuropathy (HCC) Type II or unspecified type diabetes mellitus with neurological manifestations, not stated as uncontrolled Restless leg syndrome Restless legs syndrome (RLS) PAD (peripheral artery disease) (HCC) Peripheral vascular disease, unspecified Essential hypertension Unspecified essential hypertension Mixed hyperlipidemia Diverticulosis of colon Diverticulosis of colon (without mention of hemorrhage) 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, with long-term current use of insulin (HCC) Pernicious anemia Carpal tunnel syndrome of right wrist Carpal tunnel syndrome [facility] Diagnosis DM type 2 with diabetic peripheral neuropathy (HCC) Type II or unspecified type diabetes mellitus with neurological manifestations, not stated as uncontrolled Carpal tunnel syndrome of right wrist Carpal tunnel syndrome [facility] Diagnosis Essential hypertension Unspecified essential hypertension DM type 2 with diabetic peripheral neuropathy (HCC) Type II or unspecified type diabetes mellitus with neurological manifestations, not stated as uncontrolled [facility] Diagnosis DM type 2 with diabetic peripheral neuropathy (HCC)- Primary Type II or unspecified type diabetes mellitus with neurological manifestations, not stated as uncontrolled Onychomycosis Dermatophytosis of nail Pain in toe of right foot Pain in limb Pain in toe of left foot Pain in limb [facility] Diagnosis Restless leg syndrome Restless legs syndrome (RLS) [facility] Diagnosis Essential hypertension Unspecified essential hypertension [facility]* Diagnosis Type 2 diabetes mellitus with diabetic peripheral angiopathy without gangrene, with long-term current use of insulin (HCC)- Primary [facility]* Diagnosis Type 2 diabetes mellitus with stage 3b chronic kidney disease, with long-term current use of insulin (HCC)- Primary Essential hypertension Unspecified essential hypertension Mixed hyperlipidemia Restless leg syndrome Restless legs syndrome (RLS) [facility] Diagnosis DM type 2 with diabetic peripheral neuropathy (HCC) Type II or unspecified type diabetes mellitus with neurological manifestations, not stated as uncontrolled [facility] Diagnosis Arthritis of left hip- Primary [facility] Diagnosis DM type 2 with diabetic peripheral neuropathy (HCC) Type II or unspecified type diabetes mellitus with neurological manifestations, not stated as uncontrolled [facility] Diagnosis Arthritis of left hip- Primary [facility] Diagnosis Arthritis of left hip- Primary [facility]* Diagnosis DM type 2 with diabetic peripheral neuropathy (HCC)- Primary Type II or unspecified type diabetes mellitus with neurological manifestations, not stated as uncontrolled Hypoglycemia Hypoglycemia, unspecified Essential hypertension Unspecified essential hypertension Mixed hyperlipidemia Stage 3b chronic kidney disease (HCC) [facility] Diagnosis DM type 2 with diabetic peripheral neuropathy (HCC) Type II or unspecified type diabetes mellitus with neurological manifestations, not stated as uncontrolled [facility] Diagnosis DM type 2 with diabetic peripheral neuropathy (HCC)- Primary Type II or unspecified type diabetes mellitus with neurological manifestations, not stated as uncontrolled Hypoglycemia Hypoglycemia, unspecified Essential hypertension Unspecified essential hypertension Mixed hyperlipidemia Stage 3b chronic kidney disease (HCC) COVID-19 vaccine administered [facility] Diagnosis Onychomycosis- Primary Dermatophytosis of nail Pain in toe of right foot Pain in limb Pain in toe of left foot Pain in limb DM type 2 with diabetic peripheral neuropathy (HCC) Type II or unspecified type diabetes mellitus with neurological manifestations, not stated as uncontrolled [facility] Diagnosis Restless leg syndrome Restless legs syndrome (RLS) [facility] Diagnosis DM type 2 with diabetic peripheral neuropathy (HCC)- Primary Type II or unspecified type diabetes mellitus with neurological manifestations, not stated as uncontrolled Stage 4 chronic kidney disease (HCC) PAD (peripheral artery disease) (HCC) Peripheral vascular disease, unspecified [facility] Diagnosis DM type 2 with diabetic peripheral neuropathy (HCC) Type II or unspecified type diabetes mellitus with neurological manifestations, not stated as uncontrolled [facility] Diagnosis Onychomycosis- Primary Dermatophytosis of nail Pain in toe of right foot Pain in limb Pain in toe of left foot Pain in limb DM type 2 with diabetic peripheral neuropathy (HCC) Type II or unspecified type diabetes mellitus with neurological manifestations, not stated as uncontrolled [facility] Diagnosis Essential hypertension Unspecified essential hypertension [facility] Diagnosis Preoperative examination- Primary Preoperative examination, unspecified DM type 2 with diabetic peripheral neuropathy (HCC) Type II or unspecified type diabetes mellitus with neurological manifestations, not stated as uncontrolled Restless leg syndrome Restless legs syndrome (RLS) PAD (peripheral artery disease) (HCC) Peripheral vascular disease, unspecified Essential hypertension Unspecified essential hypertension Mixed hyperlipidemia Diverticulosis of colon Diverticulosis of colon (without mention of hemorrhage) 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, with long-term current use of insulin (HCC) Pernicious anemia DM type 2 with diabetic peripheral neuropathy (HCC)- Primary Type II or unspecified type diabetes mellitus with neurological manifestations, not stated as uncontrolled Essential hypertension Unspecified essential hypertension Mixed hyperlipidemia Intertrigo Other specified erythematous condition Stage 3b chronic kidney disease (HCC) [facility] Diagnosis Preoperative examination- Primary Preoperative examination, unspecified DM type 2 with diabetic peripheral neuropathy (HCC) Type II or unspecified type diabetes mellitus with neurological manifestations, not stated as uncontrolled Restless leg syndrome Restless legs syndrome (RLS) PAD (peripheral artery disease) (HCC) Peripheral vascular disease, unspecified Essential hypertension Unspecified essential hypertension Mixed hyperlipidemia Diverticulosis of colon Diverticulosis of colon (without mention of hemorrhage) 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, with long-term current use of insulin (HCC) Pernicious anemia Pain and swelling of right wrist- Primary [facility] Diagnosis Preoperative examination- Primary Preoperative examination, unspecified DM type 2 with diabetic peripheral neuropathy (HCC) Type II or unspecified type diabetes mellitus with neurological manifestations, not stated as uncontrolled Restless leg syndrome Restless legs syndrome (RLS) PAD (peripheral artery disease) (HCC) Peripheral vascular disease, unspecified Essential hypertension Unspecified essential hypertension Mixed hyperlipidemia Diverticulosis of colon Diverticulosis of colon (without mention of hemorrhage) 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, with long-term current use of insulin (HCC) Pernicious anemia Pain and swelling of right wrist [facility] Diagnosis Preoperative examination- Primary Preoperative examination, unspecified DM type 2 with diabetic peripheral neuropathy (HCC) Type II or unspecified type diabetes mellitus with neurological manifestations, not stated as uncontrolled Restless leg syndrome Restless legs syndrome (RLS) PAD (peripheral artery disease) (HCC) Peripheral vascular disease, unspecified Essential hypertension Unspecified essential hypertension Mixed hyperlipidemia Diverticulosis of colon Diverticulosis of colon (without mention of hemorrhage) 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, with long-term current use of insulin (HCC) Pernicious anemia Mild anemia- Primary Anemia, unspecified [facility] Diagnosis Preoperative examination- Primary Preoperative examination, unspecified DM type 2 with diabetic peripheral neuropathy (HCC) Type II or unspecified type diabetes mellitus with neurological manifestations, not stated as uncontrolled Restless leg syndrome Restless legs syndrome (RLS) PAD (peripheral artery disease) (HCC) Peripheral vascular disease, unspecified Essential hypertension Unspecified essential hypertension Mixed hyperlipidemia Diverticulosis of colon Diverticulosis of colon (without mention of hemorrhage) 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, with long-term current use of insulin (HCC) Pernicious anemia Elevated ferritin- Primary Other abnormal blood chemistry [facility] Diagnosis Preoperative examination- Primary Preoperative examination, unspecified DM type 2 with diabetic peripheral neuropathy (HCC) Type II or unspecified type diabetes mellitus with neurological manifestations, not stated as uncontrolled Restless leg syndrome Restless legs syndrome (RLS) PAD (peripheral artery disease) (HCC) Peripheral vascular disease, unspecified Essential hypertension Unspecified essential hypertension Mixed hyperlipidemia Diverticulosis of colon Diverticulosis of colon (without mention of hemorrhage) 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, with long-term current use of insulin (HCC) Pernicious anemia DM type 2 with diabetic peripheral neuropathy (HCC) Type II or unspecified type diabetes mellitus with neurological manifestations, not stated as uncontrolled [facility] Diagnosis Preoperative examination- Primary Preoperative examination, unspecified DM type 2 with diabetic peripheral neuropathy (HCC) Type II or unspecified type diabetes mellitus with neurological manifestations, not stated as uncontrolled Restless leg syndrome Restless legs syndrome (RLS) PAD (peripheral artery disease) (HCC) Peripheral vascular disease, unspecified Essential hypertension Unspecified essential hypertension Mixed hyperlipidemia Diverticulosis of colon Diverticulosis of colon (without mention of hemorrhage) 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, with long-term current use of insulin (HCC) Pernicious anemia History of colonic polyps- Primary Personal history of colonic polyps Positive fecal occult blood test Nonspecific abnormal finding in stool contents documented in this encounter [facility] note* Diagnosis Acute right ankle pain Preoperative examination- Primary Preoperative examination, unspecified DM type 2 with diabetic peripheral neuropathy (HCC) Type II or unspecified type diabetes mellitus with neurological manifestations, not stated as uncontrolled Restless leg syndrome Restless legs syndrome (RLS) PAD (peripheral artery disease) (HCC) Peripheral vascular disease, unspecified Essential hypertension Unspecified essential hypertension Mixed hyperlipidemia Diverticulosis of colon Diverticulosis of colon (without mention of hemorrhage) 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, with long-term current use of insulin (HCC) Pernicious anemia [facility] Diagnosis Preoperative examination- Primary Preoperative examination, unspecified DM type 2 with diabetic peripheral neuropathy (HCC) Type II or unspecified type diabetes mellitus with neurological manifestations, not stated as uncontrolled Restless leg syndrome Restless legs syndrome (RLS) PAD (peripheral artery disease) (HCC) Peripheral vascular disease, unspecified Essential hypertension Unspecified essential hypertension Mixed hyperlipidemia Diverticulosis of colon Diverticulosis of colon (without mention of hemorrhage) 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, with long-term current use of insulin (HCC) Pernicious anemia Positive fecal occult blood test- Primary Nonspecific abnormal finding in stool contents [facility] Diagnosis Preoperative examination- Primary Preoperative examination, unspecified DM type 2 with diabetic peripheral neuropathy (HCC) Type II or unspecified type diabetes mellitus with neurological manifestations, not stated as uncontrolled Restless leg syndrome Restless legs syndrome (RLS) PAD (peripheral artery disease) (HCC) Peripheral vascular disease, unspecified Essential hypertension Unspecified essential hypertension Mixed hyperlipidemia Diverticulosis of colon Diverticulosis of colon (without mention of hemorrhage) 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, with long-term current use of insulin (HCC) Pernicious anemia DM type 2 with diabetic peripheral neuropathy (HCC) Type II or unspecified type diabetes mellitus with neurological manifestations, not stated as uncontrolled [facility] Diagnosis Preoperative examination- Primary Preoperative examination, unspecified DM type 2 with diabetic peripheral neuropathy (HCC) Type II or unspecified type diabetes mellitus with neurological manifestations, not stated as uncontrolled Restless leg syndrome Restless legs syndrome (RLS) PAD (peripheral artery disease) (HCC) Peripheral vascular disease, unspecified Essential hypertension Unspecified essential hypertension Mixed hyperlipidemia Diverticulosis of colon Diverticulosis of colon (without mention of hemorrhage) 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, with long-term current use of insulin (HCC) Pernicious anemia Diverticulosis of colon- Primary Diverticulosis of colon (without mention of hemorrhage) Positive fecal occult blood test Nonspecific abnormal finding in stool contents History of colonic polyps Personal history of colonic polyps [facility] Diagnosis Preoperative examination- Primary Preoperative examination, unspecified DM type 2 with diabetic peripheral neuropathy (HCC) Type II or unspecified type diabetes mellitus with neurological manifestations, not stated as uncontrolled Restless leg syndrome Restless legs syndrome (RLS) PAD (peripheral artery disease) (HCC) Peripheral vascular disease, unspecified Essential hypertension Unspecified essential hypertension Mixed hyperlipidemia Diverticulosis of colon Diverticulosis of colon (without mention of hemorrhage) 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, with long-term current use of insulin (HCC) Pernicious anemia Onychomycosis- Primary Dermatophytosis of nail Pain in toe of right foot Pain in limb Pain in toe of left foot Pain in limb DM type 2 with diabetic peripheral neuropathy (HCC) Type II or unspecified type diabetes mellitus with neurological manifestations, not stated as uncontrolled [facility] Diagnosis Preoperative examination- Primary Preoperative examination, unspecified DM type 2 with diabetic peripheral neuropathy (HCC) Type II or unspecified type diabetes mellitus with neurological manifestations, not stated as uncontrolled Restless leg syndrome Restless legs syndrome (RLS) PAD (peripheral artery disease) (HCC) Peripheral vascular disease, unspecified Essential hypertension Unspecified essential hypertension Mixed hyperlipidemia Diverticulosis of colon Diverticulosis of colon (without mention of hemorrhage) 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, with long-term current use of insulin (HCC) Pernicious anemia History of colonic polyps- Primary Personal history of colonic polyps Phlegm in throat Abnormal sputum [facility] Diagnosis Preoperative examination- Primary Preoperative examination, unspecified DM type 2 with diabetic peripheral neuropathy (HCC) Type II or unspecified type diabetes mellitus with neurological manifestations, not stated as uncontrolled Restless leg syndrome Restless legs syndrome (RLS) PAD (peripheral artery disease) (HCC) Peripheral vascular disease, unspecified Essential hypertension Unspecified essential hypertension Mixed hyperlipidemia Diverticulosis of colon Diverticulosis of colon (without mention of hemorrhage) 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, with long-term current use of insulin (HCC) Pernicious anemia DM type 2 with diabetic peripheral neuropathy (HCC) Type II or unspecified type diabetes mellitus with neurological manifestations, not stated as uncontrolled documented in this encounter [facility] note* Diagnosis Preoperative examination- Primary Preoperative examination, unspecified DM type 2 with diabetic peripheral neuropathy (HCC) Type II or unspecified type diabetes mellitus with neurological manifestations, not stated as uncontrolled Restless leg syndrome Restless legs syndrome (RLS) PAD (peripheral artery disease) (HCC) Peripheral vascular disease, unspecified Essential hypertension Unspecified essential hypertension Mixed hyperlipidemia Diverticulosis of colon Diverticulosis of colon (without mention of hemorrhage) 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, with long-term current use of insulin (HCC) Pernicious anemia DM type 2 with diabetic peripheral neuropathy (HCC)- Primary Type II or unspecified type diabetes mellitus with neurological manifestations, not stated as uncontrolled Stage 3b chronic kidney disease (HCC) Essential hypertension Unspecified essential hypertension Mixed hyperlipidemia Restless leg syndrome Restless legs syndrome (RLS) PAD (peripheral artery disease) (HCC) Peripheral vascular disease, unspecified Mild anemia Anemia, unspecified documented in this encounter [facility] noteNo assessment information [facility]WThe [facility] Work Phone: [facility]* Diagnosis Onset Date Resolution Status Vertigo acute [facility] Work Phone: evaluation note* Diagnosis Preoperative examination- Primary Preoperative examination, unspecified DM type 2 with diabetic peripheral neuropathy (HCC) Type II or unspecified type diabetes mellitus with neurological manifestations, not stated as uncontrolled Restless leg syndrome Restless legs syndrome (RLS) PAD (peripheral artery disease) (HCC) Peripheral vascular disease, unspecified Essential hypertension Unspecified essential hypertension Mixed hyperlipidemia Diverticulosis of colon Diverticulosis of colon (without mention of hemorrhage) 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, with long-term current use of insulin (HCC) Pernicious anemia DM type 2 with diabetic peripheral neuropathy (HCC) Type II or unspecified type diabetes mellitus with neurological manifestations, not stated as uncontrolled documented in this encounter [facility] note* Diagnosis Preoperative examination- Primary Preoperative examination, unspecified DM type 2 with diabetic peripheral neuropathy (HCC) Type II or unspecified type diabetes mellitus with neurological manifestations, not stated as uncontrolled Restless leg syndrome Restless legs syndrome (RLS) PAD (peripheral artery disease) (HCC) Peripheral vascular disease, unspecified Essential hypertension Unspecified essential hypertension Mixed hyperlipidemia Diverticulosis of colon Diverticulosis of colon (without mention of hemorrhage) 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, with long-term current use of insulin (HCC) Pernicious anemia DM type 2 with diabetic peripheral neuropathy (HCC)- Primary Type II or unspecified type diabetes mellitus with neurological manifestations, not stated as uncontrolled Numbness and tingling in left hand Disturbance of skin sensation At high risk for falls Personal history of fall [facility]* Diagnosis Preoperative examination- Primary Preoperative examination, unspecified DM type 2 with diabetic peripheral neuropathy (HCC) Type II or unspecified type diabetes mellitus with neurological manifestations, not stated as uncontrolled Restless leg syndrome Restless legs syndrome (RLS) PAD (peripheral artery disease) (HCC) Peripheral vascular disease, unspecified Essential hypertension Unspecified essential hypertension Mixed hyperlipidemia Diverticulosis of colon Diverticulosis of colon (without mention of hemorrhage) 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, with long-term current use of insulin (HCC) Pernicious anemia DM type 2 with diabetic peripheral neuropathy (HCC)- Primary Type II or unspecified type diabetes mellitus with neurological manifestations, not stated as uncontrolled Numbness and tingling in left hand Disturbance of skin sensation [facility]* Diagnosis Preoperative examination- Primary Preoperative examination, unspecified DM type 2 with diabetic peripheral neuropathy (HCC) Type II or unspecified type diabetes mellitus with neurological manifestations, not stated as uncontrolled Restless leg syndrome Restless legs syndrome (RLS) PAD (peripheral artery disease) (HCC) Peripheral vascular disease, unspecified Essential hypertension Unspecified essential hypertension Mixed hyperlipidemia Diverticulosis of colon Diverticulosis of colon (without mention of hemorrhage) 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, with long-term current use of insulin (HCC) Pernicious anemia DM type 2 with diabetic peripheral neuropathy (HCC) Type II or unspecified type diabetes mellitus with neurological manifestations, not stated as uncontrolled [facility] Diagnosis Preoperative examination- Primary Preoperative examination, unspecified DM type 2 with diabetic peripheral neuropathy (HCC) Type II or unspecified type diabetes mellitus with neurological manifestations, not stated as uncontrolled Restless leg syndrome Restless legs syndrome (RLS) PAD (peripheral artery disease) (HCC) Peripheral vascular disease, unspecified Essential hypertension Unspecified essential hypertension Mixed hyperlipidemia Diverticulosis of colon Diverticulosis of colon (without mention of hemorrhage) 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, with long-term current use of insulin (HCC) Pernicious anemia DM type 2 with diabetic peripheral neuropathy (HCC) Type II or unspecified type diabetes mellitus with neurological manifestations, not stated as uncontrolled [facility] Diagnosis Preoperative examination- Primary Preoperative examination, unspecified DM type 2 with diabetic peripheral neuropathy (HCC) Type II or unspecified type diabetes mellitus with neurological manifestations, not stated as uncontrolled Restless leg syndrome Restless legs syndrome (RLS) PAD (peripheral artery disease) (HCC) Peripheral vascular disease, unspecified Essential hypertension Unspecified essential hypertension Mixed hyperlipidemia Diverticulosis of colon Diverticulosis of colon (without mention of hemorrhage) 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, with long-term current use of insulin (HCC) Pernicious anemia Onychomycosis- Primary Dermatophytosis of nail Pain in toe of right foot Pain in limb Pain in toe of left foot Pain in limb DM type 2 with diabetic peripheral neuropathy (HCC) Type II or unspecified type diabetes mellitus with neurological manifestations, not stated as uncontrolled [facility]* Diagnosis Preoperative examination- Primary Preoperative examination, unspecified DM type 2 with diabetic peripheral neuropathy (HCC) Type II or unspecified type diabetes mellitus with neurological manifestations, not stated as uncontrolled Restless leg syndrome Restless legs syndrome (RLS) PAD (peripheral artery disease) (HCC) Peripheral vascular disease, unspecified Essential hypertension Unspecified essential hypertension Mixed hyperlipidemia Diverticulosis of colon Diverticulosis of colon (without mention of hemorrhage) 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, with long-term current use of insulin (HCC) Pernicious anemia Numbness and tingling in left hand Disturbance of skin sensation [facility] Diagnosis Preoperative examination- Primary Preoperative examination, unspecified DM type 2 with diabetic peripheral neuropathy (HCC) Type II or unspecified type diabetes mellitus with neurological manifestations, not stated as uncontrolled Restless leg syndrome Restless legs syndrome (RLS) PAD (peripheral artery disease) (HCC) Peripheral vascular disease, unspecified Essential hypertension Unspecified essential hypertension Mixed hyperlipidemia Diverticulosis of colon Diverticulosis of colon (without mention of hemorrhage) 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, with long-term current use of insulin (HCC) Pernicious anemia DM type 2 with diabetic peripheral neuropathy (HCC)- Primary Type II or unspecified type diabetes mellitus with neurological manifestations, not stated as uncontrolled Hypotension due to drugs Other iatrogenic hypotension Tinea cruris Dermatophytosis of groin and perianal area [facility] Diagnosis Preoperative examination- Primary Preoperative examination, unspecified DM type 2 with diabetic peripheral neuropathy (HCC) Type II or unspecified type diabetes mellitus with neurological manifestations, not stated as uncontrolled Restless leg syndrome Restless legs syndrome (RLS) PAD (peripheral artery disease) (HCC) Peripheral vascular disease, unspecified Essential hypertension Unspecified essential hypertension Mixed hyperlipidemia Diverticulosis of colon Diverticulosis of colon (without mention of hemorrhage) 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, with long-term current use of insulin (HCC) Pernicious anemia Carpal tunnel syndrome of left wrist- Primary Carpal tunnel syndrome Carpal tunnel syndrome of left wrist Carpal tunnel syndrome [facility] Diagnosis Preoperative examination- Primary Preoperative examination, unspecified DM type 2 with diabetic peripheral neuropathy (HCC) Type II or unspecified type diabetes mellitus with neurological manifestations, not stated as uncontrolled Restless leg syndrome Restless legs syndrome (RLS) PAD (peripheral artery disease) (HCC) Peripheral vascular disease, unspecified Essential hypertension Unspecified essential hypertension Mixed hyperlipidemia Diverticulosis of colon Diverticulosis of colon (without mention of hemorrhage) 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, with long-term current use of insulin (HCC) Pernicious anemia Numbness and tingling in left hand Disturbance of skin sensation Carpal tunnel syndrome of left wrist Carpal tunnel syndrome [facility] Diagnosis Preoperative examination- Primary Preoperative examination, unspecified DM type 2 with diabetic peripheral neuropathy (HCC) Type II or unspecified type diabetes mellitus with neurological manifestations, not stated as uncontrolled Restless leg syndrome Restless legs syndrome (RLS) PAD (peripheral artery disease) (HCC) Peripheral vascular disease, unspecified Essential hypertension Unspecified essential hypertension Mixed hyperlipidemia Diverticulosis of colon Diverticulosis of colon (without mention of hemorrhage) 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, with long-term current use of insulin (HCC) Pernicious anemia Restless leg syndrome Restless legs syndrome (RLS) Essential hypertension Unspecified essential hypertension Carpal tunnel syndrome of left wrist Carpal tunnel syndrome [facility] Diagnosis Preoperative examination- Primary Preoperative examination, unspecified DM type 2 with diabetic peripheral neuropathy (HCC) Type II or unspecified type diabetes mellitus with neurological manifestations, not stated as uncontrolled Restless leg syndrome Restless legs syndrome (RLS) PAD (peripheral artery disease) (HCC) Peripheral vascular disease, unspecified Essential hypertension Unspecified essential hypertension Mixed hyperlipidemia Diverticulosis of colon Diverticulosis of colon (without mention of hemorrhage) 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, with long-term current use of insulin (HCC) Pernicious anemia Pre-operative examination- Primary Preoperative examination, unspecified Essential hypertension Unspecified essential hypertension Mixed hyperlipidemia PAD (peripheral artery disease) (HCC) Peripheral vascular disease, unspecified Type 2 diabetes mellitus with diabetic peripheral angiopathy without gangrene, with long-term current use of insulin (HCC) Stage 3b chronic kidney disease (HCC) Pernicious anemia Personal history of malignant neoplasm of cervix uteri History of lumbar fusion Restless leg syndrome Restless legs syndrome (RLS) DM type 2 with diabetic peripheral neuropathy (HCC) Type II or unspecified type diabetes mellitus with neurological manifestations, not stated as uncontrolled Gout, unspecified cause, unspecified chronicity, unspecified site Former smoker Personal history of tobacco use, presenting hazards to health BMI 30.0-30.9,adult Body Mass Index 30.0-30.9, adult Carpal tunnel syndrome of left wrist Carpal tunnel syndrome * Assessment & Plan Note - Greg Purdy APRN.CNP - 12/11/2024 8:43 AM EDT Associated Problem(s): BMI 30.0-30.9,adult Assessment: Body mass index is 30.04 kg/m . * Assessment & Plan Note - Greg Purdy APRN.CNP - 12/11/2024 8:43 AM EDT Associated Problem(s): Former smoker Assessment: 1ppd/21 years, quit 1973, denies asthma or COPD, lungs CTA, pulse ox 94% on RA * Assessment & Plan Note - Greg Purdy APRN.CNP - 12/11/2024 8:42 AM EDT Associated Problem(s): Gout Assessment: controlled on rx * Assessment & Plan Note - Greg Purdy APRN.CNP - 12/11/2024 8:41 AM EDT Associated Problem(s): DM type 2 with diabetic peripheral neuropathy (HCC) Assessment: controlled on rx * Assessment & Plan Note - Greg Purdy APRN.CNP - 12/11/2024 8:41 AM EDT Associated Problem(s): Restless leg syndrome Assessment: controlled on rx * Assessment & Plan Note - Greg Purdy APRN.CNP - 12/11/2024 8:41 AM EDT Associated Problem(s): History of lumbar fusion Assessment: hx, controlled on rx * Assessment & Plan Note - Greg Purdy APRN.CNP - 12/11/2024 8:40 AM EDT Associated Problem(s): Personal history of malignant neoplasm of cervix uteri Assessment: s/p hyster * Assessment & Plan Note - Greg Purdy APRN.CNP - 12/11/2024 8:40 AM EDT Associated Problem(s): Pernicious anemia Assessment: Hemoglobin (g/dL) Date Value 08/17/2024 11.6 01/16/2021 12.1 Hematocrit (%) Date Value 08/17/2024 35.5 01/16/2021 36.5 WBC (k/uL) Date Value 08/17/2024 6.03 01/16/2021 8.61 * Assessment & Plan Note - Greg Purdy APRN.VAMSHI - 12/11/2024 8:40 AM EDT Associated Problem(s): Stage 3b chronic kidney disease (HCC) Assessment: following nephrology Creatinine Date Value Ref Range Status 11/19/2024 1.19 (H) 0.58 - 0.96 mg/dL Final 08/17/2024 1.22 (H) 0.58 - 0.96 mg/dL Final 06/06/2024 1.13 (H) 0.58 - 0.96 mg/dL Final 05/15/2024 1.06 (H) 0.58 - 0.96 mg/dL Final * Assessment & Plan Note - Greg Purdy APRN.CNP - 12/11/2024 8:39 AM EDT Associated Problem(s): Type 2 diabetes mellitus with diabetic peripheral angiopathy without gangrene, with long-term current use of insulin (HCC) Assessment: IDDM Hemoglobin A1C (%) Date Value 11/19/2024 8.8 11/03/2021 7.9 * Assessment & Plan Note - Greg Purdy APRN.CNP - 12/11/2024 8:37 AM EDT Associated Problem(s): PAD (peripheral artery disease) (HCC) Assessment: mild, denies claudication * Assessment & Plan Note - Greg Purdy APRN.CNP - 12/11/2024 8:36 AM EDT Associated Problem(s): Mixed hyperlipidemia Assessment: statin intolerant * Assessment & Plan Note - Greg Purdy APRN.CNP - 12/11/2024 8:36 AM EDT Associated Problem(s): Essential hypertension Assessment: controlled on rx Last 14 BP Last 14 Encounter BP Readings: Date: BP: 12/07/2024 112/62 11/19/2024 102/58 09/27/2024 106/58 09/06/2024 112/60 08/17/2024 108/62 07/12/2024 107/56 06/19/2024 114/62 06/06/2024 122/70 05/16/2024 112/60 02/14/2024 104/62 12/23/2023 122/72 11/15/2023 104/74 10/07/2023 118/66 09/23/2023 104/58 [facility] Diagnosis Preoperative examination- Primary Preoperative examination, unspecified DM type 2 with diabetic peripheral neuropathy (HCC) Type II or unspecified type diabetes mellitus with neurological manifestations, not stated as uncontrolled Restless leg syndrome Restless legs syndrome (RLS) PAD (peripheral artery disease) Peripheral vascular disease, unspecified Essential hypertension Unspecified essential hypertension Mixed hyperlipidemia Diverticulosis of colon Diverticulosis of colon (without mention of hemorrhage) 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, with long-term current use of insulin (HCC) Pernicious anemia Pre-operative examination- Primary Preoperative examination, unspecified Essential hypertension Unspecified essential hypertension Mixed hyperlipidemia PAD (peripheral artery disease) Peripheral vascular disease, unspecified Type 2 diabetes mellitus with diabetic peripheral angiopathy without gangrene, with long-term current use of insulin (HCC) Stage 3b chronic kidney disease (HCC) Pernicious anemia Personal history of malignant neoplasm of cervix uteri History of lumbar fusion Restless leg syndrome Restless legs syndrome (RLS) DM type 2 with diabetic peripheral neuropathy (HCC) Type II or unspecified type diabetes mellitus with neurological manifestations, not stated as uncontrolled Gout, unspecified cause, unspecified chronicity, unspecified site Former smoker Personal history of tobacco use, presenting hazards to health BMI 30.0-30.9,adult Body Mass Index 30.0-30.9, adult DM type 2 with diabetic peripheral neuropathy (HCC)- Primary Type II or unspecified type diabetes mellitus with neurological manifestations, not stated as uncontrolled S/P carpal tunnel release Other postprocedural status documented in this encounter [facility] note* Diagnosis Preoperative examination- Primary Preoperative examination, unspecified DM type 2 with diabetic peripheral neuropathy (HCC) Type II or unspecified type diabetes mellitus with neurological manifestations, not stated as uncontrolled Restless leg syndrome Restless legs syndrome (RLS) PAD (peripheral artery disease) Peripheral vascular disease, unspecified Essential hypertension Unspecified essential hypertension Mixed hyperlipidemia Diverticulosis of colon Diverticulosis of colon (without mention of hemorrhage) 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, with long-term current use of insulin (HCC) Pernicious anemia Pre-operative examination- Primary Preoperative examination, unspecified Essential hypertension Unspecified essential hypertension Mixed hyperlipidemia PAD (peripheral artery disease) Peripheral vascular disease, unspecified Type 2 diabetes mellitus with diabetic peripheral angiopathy without gangrene, with long-term current use of insulin (HCC) Stage 3b chronic kidney disease (HCC) Pernicious anemia Personal history of malignant neoplasm of cervix uteri History of lumbar fusion Restless leg syndrome Restless legs syndrome (RLS) DM type 2 with diabetic peripheral neuropathy (HCC) Type II or unspecified type diabetes mellitus with neurological manifestations, not stated as uncontrolled Gout, unspecified cause, unspecified chronicity, unspecified site Former smoker Personal history of tobacco use, presenting hazards to health BMI 30.0-30.9,adult Body Mass Index 30.0-30.9, adult S/P carpal tunnel release- Primary Other postprocedural status [facility] in [facility]* Diagnosis Preoperative examination- Primary Preoperative examination, unspecified DM type 2 with diabetic peripheral neuropathy (HCC) Type II or unspecified type diabetes mellitus with neurological manifestations, not stated as uncontrolled Restless leg syndrome Restless legs syndrome (RLS) PAD (peripheral artery disease) Peripheral vascular disease, unspecified Essential hypertension Unspecified essential hypertension Mixed hyperlipidemia Diverticulosis of colon Diverticulosis of colon (without mention of hemorrhage) 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, with long-term current use of insulin (HCC) Pernicious anemia Pre-operative examination- Primary Preoperative examination, unspecified Essential hypertension Unspecified essential hypertension Mixed hyperlipidemia PAD (peripheral artery disease) Peripheral vascular disease, unspecified Type 2 diabetes mellitus with diabetic peripheral angiopathy without gangrene, with long-term current use of insulin (HCC) Stage 3b chronic kidney disease (HCC) Pernicious anemia Personal history of malignant neoplasm of cervix uteri History of lumbar fusion Restless leg syndrome Restless legs syndrome (RLS) DM type 2 with diabetic peripheral neuropathy (HCC) Type II or unspecified type diabetes mellitus with neurological manifestations, not stated as uncontrolled Gout, unspecified cause, unspecified chronicity, unspecified site Former smoker Personal history of tobacco use, presenting hazards to health BMI 30.0-30.9,adult Body Mass Index 30.0-30.9, adult Onychomycosis- Primary Dermatophytosis of nail Pain in toe of right foot Pain in limb Pain in toe of left foot Pain in limb DM type 2 with diabetic peripheral neuropathy (HCC) Type II or unspecified type diabetes mellitus with neurological manifestations, not stated as uncontrolled Hammer toe of left foot Hammer toe of right foot [facility] Diagnosis Preoperative examination- Primary Preoperative examination, unspecified DM type 2 with diabetic peripheral neuropathy (HCC) Type II or unspecified type diabetes mellitus with neurological manifestations, not stated as uncontrolled Restless leg syndrome Restless legs syndrome (RLS) PAD (peripheral artery disease) Peripheral vascular disease, unspecified Essential hypertension Unspecified essential hypertension Mixed hyperlipidemia Diverticulosis of colon Diverticulosis of colon (without mention of hemorrhage) 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, with long-term current use of insulin (HCC) Pernicious anemia Pre-operative examination- Primary Preoperative examination, unspecified Essential hypertension Unspecified essential hypertension Mixed hyperlipidemia PAD (peripheral artery disease) Peripheral vascular disease, unspecified Type 2 diabetes mellitus with diabetic peripheral angiopathy without gangrene, with long-term current use of insulin (HCC) Stage 3b chronic kidney disease (HCC) Pernicious anemia Personal history of malignant neoplasm of cervix uteri History of lumbar fusion Restless leg syndrome Restless legs syndrome (RLS) DM type 2 with diabetic peripheral neuropathy (HCC) Type II or unspecified type diabetes mellitus with neurological manifestations, not stated as uncontrolled Gout, unspecified cause, unspecified chronicity, unspecified site Former smoker Personal history of tobacco use, presenting hazards to health BMI 30.0-30.9,adult Body Mass Index 30.0-30.9, adult Neck pain- Primary Cervicalgia Acute hip pain, left Neck pain Cervicalgia Acute hip pain, left documented in this encounter [facility] note* Diagnosis Preoperative examination- Primary Preoperative examination, unspecified DM type 2 with diabetic peripheral neuropathy (HCC) Type II or unspecified type diabetes mellitus with neurological manifestations, not stated as uncontrolled Restless leg syndrome Restless legs syndrome (RLS) PAD (peripheral artery disease) Peripheral vascular disease, unspecified Essential hypertension Unspecified essential hypertension Mixed hyperlipidemia Diverticulosis of colon Diverticulosis of colon (without mention of hemorrhage) 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, with long-term current use of insulin (HCC) Pernicious anemia Pre-operative examination- Primary Preoperative examination, unspecified Essential hypertension Unspecified essential hypertension Mixed hyperlipidemia PAD (peripheral artery disease) Peripheral vascular disease, unspecified Type 2 diabetes mellitus with diabetic peripheral angiopathy without gangrene, with long-term current use of insulin (HCC) Stage 3b chronic kidney disease (HCC) Pernicious anemia Personal history of malignant neoplasm of cervix uteri History of lumbar fusion Restless leg syndrome Restless legs syndrome (RLS) DM type 2 with diabetic peripheral neuropathy (HCC) Type II or unspecified type diabetes mellitus with neurological manifestations, not stated as uncontrolled Gout, unspecified cause, unspecified chronicity, unspecified site Former smoker Personal history of tobacco use, presenting hazards to health BMI 30.0-30.9,adult Body Mass Index 30.0-30.9, adult Neck pain Cervicalgia Acute hip pain, left documented in this encounter [facility] note* Diagnosis Preoperative examination- Primary Preoperative examination, unspecified DM type 2 with diabetic peripheral neuropathy (HCC) Type II or unspecified type diabetes mellitus with neurological manifestations, not stated as uncontrolled Restless leg syndrome Restless legs syndrome (RLS) PAD (peripheral artery disease) Peripheral vascular disease, unspecified Essential hypertension Unspecified essential hypertension Mixed hyperlipidemia Diverticulosis of colon Diverticulosis of colon (without mention of hemorrhage) 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, with long-term current use of insulin (HCC) Pernicious anemia Pre-operative examination- Primary Preoperative examination, unspecified Essential hypertension Unspecified essential hypertension Mixed hyperlipidemia PAD (peripheral artery disease) Peripheral vascular disease, unspecified Type 2 diabetes mellitus with diabetic peripheral angiopathy without gangrene, with long-term current use of insulin (HCC) Stage 3b chronic kidney disease (HCC) Pernicious anemia Personal history of malignant neoplasm of cervix uteri History of lumbar fusion Restless leg syndrome Restless legs syndrome (RLS) DM type 2 with diabetic peripheral neuropathy (HCC) Type II or unspecified type diabetes mellitus with neurological manifestations, not stated as uncontrolled Gout, unspecified cause, unspecified chronicity, unspecified site Former smoker Personal history of tobacco use, presenting hazards to health BMI 30.0-30.9,adult Body Mass Index 30.0-30.9, adult Acute hip pain, left- Primary Neck pain Cervicalgia documented in this encounter [facility] note* Diagnosis Preoperative examination- Primary Preoperative examination, unspecified DM type 2 with diabetic peripheral neuropathy (HCC) Type II or unspecified type diabetes mellitus with neurological manifestations, not stated as uncontrolled Restless leg syndrome Restless legs syndrome (RLS) PAD (peripheral artery disease) Peripheral vascular disease, unspecified Essential hypertension Unspecified essential hypertension Mixed hyperlipidemia Diverticulosis of colon Diverticulosis of colon (without mention of hemorrhage) 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, with long-term current use of insulin (HCC) Pernicious anemia Pre-operative examination- Primary Preoperative examination, unspecified Essential hypertension Unspecified essential hypertension Mixed hyperlipidemia PAD (peripheral artery disease) Peripheral vascular disease, unspecified Type 2 diabetes mellitus with diabetic peripheral angiopathy without gangrene, with long-term current use of insulin (HCC) Stage 3b chronic kidney disease (HCC) Pernicious anemia Personal history of malignant neoplasm of cervix uteri History of lumbar fusion Restless leg syndrome Restless legs syndrome (RLS) DM type 2 with diabetic peripheral neuropathy (HCC) Type II or unspecified type diabetes mellitus with neurological manifestations, not stated as uncontrolled Gout, unspecified cause, unspecified chronicity, unspecified site Former smoker Personal history of tobacco use, presenting hazards to health BMI 30.0-30.9,adult Body Mass Index 30.0-30.9, adult Acute hip pain, left- Primary Neck pain Cervicalgia [facility] Author Kaia Mcclain [facility] September 03, 2023 6:04am Note Date/Time September 03, 2023 5:17am [facility] Medical Records Department [address] [place] [address] H&P Exam - Hospitalist 09/03/23 0515 MR#: [id number] Acct: [id number] Name: CHARLETTE FARMER Rep #:[id number] : [id number] 88 From: Kaia Mcclain MD PCP: Dr. Maik Fay MD Status :ADM FERNANDO Location: [place] [id number] HPI - General General Date of Admission: 09/03/23 Date of Service: 09/03/23 Chief Complaint: Vertigo, falls. HPI Narrative The patient is an 88 y/o F w/ PMHx: CKD stage IV per chart report however per GFR trending consisent with CKD stage III unclear subtype, Obesity, Diabetes mellitus type II, HTN, HLD, GERD, RLS, Chronic anemia, BPPV who re-presents to the [facility] ED on 09/03/2023 with history of lightheadedness, dizziness and fall unfortunately hitting her head on a dresser with additional history of similar symptoms with fall earlier in the day prior while attempting to unplug a counterheight [place] tree with significant laceration to her head with bleeding associated seen earlier in the day the day prior for similar symptoms with history of vertigo with at that time a notable [place]-Hallpike maneuver positive with right beating horizontal nystagmus and urinalysis with concern for possibleUTI discharged on Keflex with unremarkable CT head at that time unremarkable andEKG with no acute evidence of ischemia. Patient did report some neck discomfortfollowing this most recent fall. Workup in the ED included T96.9, heart rate 56, BP initially 99/42 with most recent repeat 123/46, respiratory rate 18, 99% on room air, CBC with WBC 7.0, hemoglobin 11.2, MCV 96.3, platelet 186 without marked shift, BMP with BUN/creatinine 29/1.44, glucose 203, troponin 8, BNP 90.1, chest x-ray no acute cardiopulmonary findings, CT brain no acute intracranial findings, CT cervical spine with no acute findings, EKG with no acute evidence of ischemia with sinus rhythm. In the ED patient administered normal saline bolus as well as meclizine 25 mg p.o. x 1. In the ED following administration of meclizine patient did improve and was even able to walk to [facility] with assistance. [facility] Medical History (Updated 09/03/23 @ 06:[address] Kaia Mcclain MD) Cervical cancer CKD (chronic kidney disease), stage III Diverticular hemorrhage DM II (diabetes mellitus, type II), controlled Dyslipidemia Former tobacco use HTN (hypertension) Obesity Vertigo Home Medications glipizide 5 mg tablet, extended release 24 hr 5 mg PO DAILY DM 02/24/17 [History Last Taken 10/09/20] lisinopril 2.5 mg tablet 2.5 mg PO DAILY hypertension 02/24/17 [History Last Taken 10/09/20] metoprolol tartrate 25 mg tablet 25 mg PO BID HTN 02/24/17 [History Last Taken 10/09/20] pramipexole 0.25 mg tablet 0.25 mg PO QHS restless legs 02/24/17 [History Last Taken 10/08/20] acetaminophen 500 mg tablet 500 mg PO BID pain 10/10/20 [History Last Taken 10/09/20] allopurinol 100 mg tablet 100 mg PO BIDCM gout 10/10/20 [History Last Taken 10/09/20] aspirin 81 mg chewable tablet 81 mg PO QHS heart health 10/10/20 [History Last Taken 10/08/20] cholecalciferol (vitamin D3) 10 mcg (400 unit) tablet 10 mcg PO DAILY supplment 10/10/20 [History Last Taken 10/09/20] cyanocobalamin (vitamin B-12) 1,000 mcg capsule 1,000 mcg PO DAILY supplement 10/10/20 [History Last Taken 10/09/20] insulin glargine 100 unit/mL (3 mL) subcutaneous pen 42 units SQ QHS diabetes 10/10/20 [History Last Taken 10/08/20] cephalexin 500 mg capsule 500 mg PO TID 7 days #21 caps 09/02/23 [Rx Last Taken Unknown] meclizine 25 mg tablet 25 mg PO 4X/DAY PRN PRN Dizziness #20 tabs 09/02/23 [Rx Last Taken Unknown] glipizide 2.5 mg tablet, extended release 24 hr 2.5 mg PO DAILY diabetes 09/03/23 [History Last Taken Unknown] melatonin 5 mg capsule 5 mg PO QHS 09/03/23 [History Last Taken Unknown] rosuvastatin 20 mg tablet 20 mg PO QHS cholesterol 09/03/23 [History Last Taken Unknown] spironolactone 25 mg-hydrochlorothiazide 25 mg tablet 0.5 tab PO DAILY 09/03/23 [History Last Taken Unknown] Allergy/AdvReac Type Severity Reaction Status Date / Time No Known Allergies Allergy Verified 09/03/23 01:34 Family History (Updated 09/03/23 @ 06:[address] Kaia Mcclain MD) Mother Lung cancer COPD (chronic obstructive pulmonary disease) Father Alcoholism CAD (coronary artery disease) Heart disease Hypertension Myocardial infarction age 43 secondary to [place]. Surgical History (Updated 09/03/23 @ 05:[address] Kaia Mcclain MD) History of carpal tunnel surgery of right wrist History of hysterectomy History of tonsillectomy and adenoidectomy Hx of cholecystectomy Hx of dilation and curettage S/P appendectomy Social History (Updated 09/03/23 @ 06:[address] Kaia Mcclain MD) household members: none Smoking Status: Former smoker how long ago did patient quit smoking: Smoked 1 pack/day x 20 years, quit 1973. alcohol intake: current alcohol intake frequency: holidays/special occasions only substance use type: does not use ROS ROS Narrative Admission Review of Systems: CONSTITUTIONAL: No weight loss, fever, chills, + weakness or fatigue. HEENT: + Lightheadedness, dizziness, vertiginous sensation. Eyes: No visual loss, blurred vision, double vision or yellow sclerae. Ears, Nose, Throat: No hearing loss, sneezing, congestion, runny nose or sore throat. SKIN: No rash or itching, lesions, wounds. CARDIOVASCULAR: No chest pain, chest pressure or chest discomfort, palpitations,edema, orthopnea, syncopal events. RESPIRATORY: No shortness of breath, cough or sputum, wheezing, hemoptysis. GASTROINTESTINAL: + anorexia, nausea. No vomiting or diarrhea, abdominal pain, melena, BRBPR. GENITOURINARY: No dysuria, frequency, urgency or retention. NEUROLOGICAL: + Lightheadedness, dizziness, vertiginous sensation, near syncope. No headache, paralysis, ataxia, numbness or tingling in the extremities, focal weakness, change in bowel or bladder control, seizure. MUSCULOSKELETAL: + muscle, back pain, joint pain or stiffness. HEMATOLOGIC: + anemia, easy bleeding/bruising. LYMPHATICS: No enlarged nodes. No history of splenectomy. PSYCHIATRIC: No history of depression or anxiety. ENDOCRINOLOGIC: No reports of sweating, cold or heat intolerance. No polyuria orpolydipsia. ALLERGIES: No history of asthma, hives, eczema or rhinitis. Vital Signs Vital Signs Vital Signs: 09/03/23 01:28 09/03/23 01:34 09/03/23 01:37 Temperature 96.9 F L Temperature Source Temporal Pulse Rate 56 L 58 L Respiratory Rate 13 16 Respiratory Effort Normal Respiratory Depth Normal Respiratory Pattern Normal Blood Pressure 99/42 L 96/39 L Blood Pressure Mean 61 58 Pulse Ox 97 98 Oxygen Delivery Method Room Air Room Air Room Air 09/03/23 01:49 09/03/23 02:56 09/03/23 03:00 Temperature Temperature Source Pulse Rate 59 L 57 L 61 Respiratory Rate 18 14 24 H Respiratory Effort Respiratory Depth Respiratory Pattern Blood Pressure 123/46 H 111/65 Blood Pressure Mean 71 80 Pulse Ox 99 97 100 Oxygen Delivery Method Room Air 09/03/23 03:10 09/03/23 03:20 Temperature Temperature Source Pulse Rate 59 L 50 L Respiratory Rate 24 H 19 H Respiratory Effort Respiratory Depth Respiratory Pattern Blood Pressure Blood Pressure Mean Pulse Ox 98 98 Oxygen Delivery Method Room Air Weight Weight: 167 lb 4.8 oz Body Mass Index (BMI) 31.6 Physical Exam Narrative Physical Examination: General: Awake, alert, oriented x 3 and cooperative, seated upright in the ED bed, fatigued but notes feeling improved, does admit that she went to the bathroom with assistance and vertiginous symptoms were significantly improved, resolving. Skin: Normal color, normal turgor, no icterus, no cyanosis except for occasionalstaged ecchymoses, bandaging to the head status post fall with laceration with bleeding controlled. HEENT: See skin/NC, EOMI, PERRLA, dry MM, no carotid bruits or JVD noted. Lungs: Diminished, greater bases, proper effort, no rales, ronchi or wheezing. Heart: Mildly bradycardic with regular rhythm; no gallop, rub audible. Abdomen: Soft, obese, NTTP, ND, mildly hyperactive BS, no HSM. Extremities: No cyanosis, no clubbing, mild ankle peripheral edema. Neurological: Patient awake, alert, oriented as noted, cognitive function intact; pupils equally reactive to light and accommodation, cranial nerves II-XII grossly normal, moving all 4 extremities, no focal deficits, no reproduciblenystagmus at this time, patient notes she is feeling improved, strength improving, moderately to severely globally decreased secondary to acute presentation. Psychiatric: Affect appears fatigued, no acute evidence of depressive or anxietyfeelings. Results Lab / Micro Data 09/03/23 02:06 09/03/23 02:06 Labs: Laboratory Results - last 24 hr 09/03/23 02:06: WBC 7.0, RBC 3.53 L, Hgb 11.2 L, Hct 34.0 L, MCV 96.3, MCH 31.7,MCHC 32.9, RDW Std Deviation 51.2 H, RDW Coeff of Luciano 14.6, Plt Count 196, MPV 10.0, Immature Gran % (Auto) 0.300, Neut % (Auto) 61.9, Lymph % (Auto) 26.3, [place] % (Auto) 8.6, Eos % (Auto) 2.2, Baso % (Auto) 0.7, Absolute Neuts (auto) 4.3, Absolute Lymphs (auto) 1.83, Nucleated RBC % 0, Sodium 136, Potassium 4.2, Chloride 105, Carbon Dioxide 27.0, Anion Gap 4 L, BUN 29 H, Creatinine 1.44 H, Estim Creat Clear Calc 20.38, Est GFR (MDRD) Af Amer 44 L, Est GFR (MDRD) Non-Af37 L, BUN/Creatinine Ratio 20.1 H, Glucose 203 H, Calcium 9.1, Troponin I High Sens 8, B-Natriuretic Peptide 90.1 Imagaing Rad[address] CT 09/03/23 01:48 IMPRESSION: undefined Cervical Spine CT 09/03/23 01:48 IMPRESSION: undefined Chest X-Ray 09/03/23 02:24 IMPRESSION: No acute pulmonary disease. Electronically Signed: Jose Ivory MD at 3:55 EST , Assessment & Plan Assessment/Plan (1) Vertigo: PLAN: Plan The patient is an 88 y/o F w/ PMHx: CKD stage IV per chart report however per GFR trending consisent with CKD stage III unclear subtype, Obesity, Diabetes mellitus type II, HTN, HLD, GERD, RLS, Chronic anemia, BPPV who re-presents to the [facility] ED on 09/03/2023 with history of lightheadedness, dizziness and fall unfortunately hitting her head on a dresser with additional history of similar symptoms with fall earlier in the day prior while attempting to unplug a counterheight [employer] tree with significant laceration to her head with bleeding associated seen earlier in the day the day prior for similar symptoms with history of vertigo with at that time a notable [place]-Hallpike maneuver positive with right beating horizontal nystagmus and urinalysis with concern for possibleUTI discharged on Keflex with unremarkable CT head at that time unremarkable andEKG with no acute evidence of ischemia. Patient did report some neck discomfortfollowing this most recent fall. #1. Near syncope with lightheadedness, dizziness, vertigo, recurrent with history of BPPV with mechanical fall with head trauma: EKG in ED w/ sinus rhythmwithout evidence of acute ischemia, chest x-ray no acute cardiopulmonary, CT head no acute intracranial findings, CT cervical spine no acute findings, initial trop normal. Will admit to PCU, place on a monitored bed to assure no acute myocardial infarction with serial cardiac enzymes and EKGs. Will maintain on fall precautions, obtain admission orthostatic, continue judicious hydration,continue treatment with scheduled meclizine given improvement, PRN zofran, IVFs. If interventions do not assist may need to consider follow-up MRI of the brain to assure no posterior stroke. PT/OT consultation to ascertain stability and discharge needs. #2. Recent Acute complicated urinary tract infection: Will continue patient recently initiated Keflex regimen with pending urine culture for speciation and sensitivity. #3. Chronic normocytic anemia: Admission hemoglobin 11.2, MCV 96.3, baseline hemoglobin 10-11, stable, continue to trend. #4. Hypertension: Given low normal BP in the ED will temporally hold hypertensive regimen, add back once appropriate, PRN hydralazine. #5. Hyperlipidemia: We will continue patient on statin therapy. #6. Diabetes mellitus type II: Hold oral home regimen, continue home insulin regimen, ADA diet, accu checks w/ ISS. #7. Restless leg syndrome: We will continue patient on pramipexole regimen. #8. Obesity: Weight loss and lifestyle changes encouraged. #9. CKD stage IV per chart report however per GFR trending consisent with CKD stage III unclear subtype: Admission BUN/Cr 29/1.44, baseline renal function 1.2-1.5, repeat BMP in AM. #10. DVT prophylaxis: SCDs, hold chemoprophylaxis given recent fall with laceration. #11. CODE status: Patient CLAUDETTE is her daughter and living will is currently inplace. Discussed CODE status at length including difference between FULL code, DNR-CCA and DNR-CC status. Following discussions about the differences in these status, requested Full Code status. Advanced Care Planning Face to Face Time: 16minutes. Charges/Coding Visit Charges Inpatient E&M: 61350 Init Hosp L3 Procedures Hospitalists Procedures: 03062 Advncd Care Plan 30 Min 09/03/23 0604 <Electronically signed by Kaia Mcclain MD> Cosigner Signature (if applicable): CC: Dr. Kaia Mcclain MD; Dr. Maik Fay MD~ Signed [facility] Work Phone: Hospital Discharge instructions Additional Instructions Ensure that you change positions slowly. Take medicine as needed. [facility] Phone: Reason for referral (narrative)* Outpatient Procedure (Routine) - Authorized Specialty Diagnoses / Procedures Referred By Contac t Referred To Contact [facility] Diagnoses PAD (peripheral artery disease) (HCC) Procedures PVR LEG [facility] NON-INVASIVE PHYSIOLOGIC STUDY EXTREMITY 3 Maribel Hilliard MD [address] [place] [address] [facility] [address] [place] [address] Referral ID Status Reason Start Date Expiration Date Visits Requested Visits Authorized [id number] Authorized Auto-Generat ed Referral 11/09/2022 11/09/2023 1 1 [facility] for referral (narrative)* Diagnostic Procedure Only (Routine) - Closed Specialty Diagnoses / Procedures Referred By Juani cristina Referred To Contact XR IMAGING Diagnoses Pain and swelling of right wrist Procedures XR WRIST GENERAL 3V PA/LAT/OBL RIGHT RADEX WRIST COMPLETE MINIMUM 3 VIEWS Tosha Pelaez APRN.CNP [address] [place] [address] [place] [address] Referral ID Status Reason Start Date Expiration Date V isits Requested Visits Authorized [id number] Closed Auto-Generate d Referral 06/06/2024 07/06/2025 1 1 [facility] for referral (narrative)* Outpatient Procedure (Routine) - Pending Review Specialty Diagnoses / Procedures Referred By Juani cristina Referred To Contact [facility] Diagnoses Positive fecal occult blood test Procedures EGD DIAGNOSTIC ESOPHAGOGASTRODUODENOSC OPY TRANSORAL DIAGNOSTIC Mariah Odonnell APRN.SHELF FILLER [address] [place] [address] [facility] [address] [place] [address] Referral ID Status Reason Start Date Expiration Date Visits Requested Visits Authorized [id number] Pending Review Auto-Generat ed Referral 06/19/2024 06/19/2025 1 1 * Outpatient Procedure (Routine) - Pending Review Specialty Diagnoses / Procedures Referred By Contac t Referred To Contact [facility] Diagnoses Positive fecal occult blood test History of colonic polyps Procedures COLONOSCOPY DIAGNOSTIC COLONOSCOPY FLX DX W/COLLJ SPEC WHEN Mariah Segura APRN.SHELF FILLER [address] [place] [address] [facility] [address] [place] [address] Referral ID Status Reason Start Date Expiration Date Visits Requested Visits Authorized [id number] Pending Review Auto-Generat ed Referral 06/19/2024 06/19/2025 1 1 [facility] for referral (narrative)* Outpatient Procedure (Routine) - Closed Specialty Diagnoses / Procedures Referred By Contac t Referred To Contact [facility] Diagnoses Positive fecal occult blood test Procedures EGD DIAGNOSTIC ESOPHAGOGASTRODUODENOSC OPY TRANSORAL DIAGNOSTIC Mariah Odonnell APRN.SHELF FILLER [address] [place] [address] Simon Driscoll MD [address] [place] [address] Referral ID Status Reason Start Date Expiration Date V isits Requested Visits Authorized [id number] Closed Auto-Generate d Referral 07/12/2024 09/09/2024 1 1 * Outpatient Procedure (Routine) - Closed Specialty Diagnoses / Procedures Referred By Contac t Referred To Contact [facility] Diagnoses Positive fecal occult blood test History of colonic polyps Procedures COLONOSCOPY DIAGNOSTIC COLONOSCOPY FLX DX W/COLLJ SPEC WHEN Mariah Segura APRN.SHELF FILLER [address] [place] [address] Simon Driscoll MD [address] [place] [address] Referral ID Status Reason Start Date Expiration Date V isits Requested Visits Authorized [id number] Closed Auto-Generate d Referral 07/12/2024 09/18/2024 1 1 [facility] for referral (narrative)No reason for referral information [facility] Work Phone: Reason for visit Narrative* Diagnostic Procedure Only (Routine) - Closed Specialty Diagnoses / Procedures Referred By Contac t Referred To Contact XR IMAGING Diagnoses Pain and swelling of right wrist Procedures XR WRIST GENERAL 3V PA/LAT/OBL RIGHT RADEX WRIST COMPLETE MINIMUM 3 VIEWS PodlogarTosha APRN.SHELF FILLER [address] [place] [id number] [place] [address] Referral ID Status Reason Start Date Expiration Date V isits Requested Visits Authorized [id number] Closed Auto-Generate d Referral 06/06/2024 07/06/2025 1 1 [facility] for visit Narrative* Outpatient Procedure (Routine) - Closed Specialty Diagnoses / Procedures Referred By Contac t Referred To Contact [facility] Diagnoses Positive fecal occult blood test Procedures EGD DIAGNOSTIC ESOPHAGOGASTRODUODENOSC OPY TRANSORAL DIAGNOSTIC Mariah Odonnell APRN.CNP [address] [place] [address] Simon Driscoll MD [address] [place] [phone] Referral ID Status Reason Start Date Expiration Date V isits Requested Visits Authorized [id number] Closed Auto-Generate d Referral 07/12/2024 09/09/2024 1 1 [facility] for visit Narrative* Outpatient Procedure (Routine) - Closed Specialty Diagnoses / Procedures Referred By Contact Referred To Contact [facility] Diagnoses Numbness and tingling in left hand Procedures EMG(NEURO/NI) NERVE CONDUCTION STUDIES 9-10 STUDIES Maribel Fay MD [address] [place] [address] [facility] [address] [place] [address] Referral ID Status Reason Start Date Expiration Date V isits Requested Visits Authorized [id number] Closed Auto-Generate d Referral 09/06/2024 09/06/2025 1 1 [facility] Diagnostic Procedure Only (Urgent) - Closed Specialty Diagnoses / Procedures Referred By Contac t Referred To Contact XR IMAGING Diagnoses Acute hip pain, left Procedures XR HIP GENERAL 3V PELV/AP/LAT LEFT XR HIP GENERAL 3V PELV/AP/LAT LEFT RADEX HIP UNILATERAL WITH PELVIS 2-3 VIEWS Maribel Fay MD [address] [place] [address] Phone: tel: fax: [place] [address] Referral ID Status Reason Start Date Expiration Date V isits Requested Visits Authorized [id number] Closed Auto-Generate d Referral 01/22/2025 02/21/2026 1 1 [facility] Advance Directives No Advanced Directives Records FoundDocuments on File Type Date Recorded Patient Yarder Puncher Expl anation Advance Directive(s) 01/07/2021 7:50 AM Advance Directive(s) 12/30/2020 9:26 AM Advance Directive(s) 12/25/2020 4:01 PM Advance Directive(s) 09/01/2017 11:11 AM Documents on File Type Date Recorded Patient Yarder Puncher Expl anation Advance Directive(s) 05/16/2023 10:46 AM Documents on File Type Date Recorded Patient Yarder Puncher Expl anation Advance Directive(s) 05/16/2023 10:46 AM Advance Directive Response Recorded Date/ Time Living Will Yes September 02 023 11:35am Power of Technical Sales Manager Yes September 02, 2023 11:35am Name of Medical Power of Technical Sales Manager cristobal case September 02, 2023 11:35am Advance Directive Response Recorded Date/ Time Name of Medical Power of Technical Sales Manager cristobal case September 02, 2023 11:35am Name of Medical Power of Technical Sales Manager Gabriela Case September 03, 2023 1:34am Living Will Yes September 03 1:34am Power of Technical Sales Manager Yes September 03, 2023 1:34am Advance Directive Response Recorded Date/ Time Name of Medical Power of Technical Sales Manager cristobal case September 02, 2023 11:35am Name of Medical Power of Technical Sales Manager Gabriela Case September 03, 2023 7:48am Living Will Yes September 03 7:48am Power of Technical Sales Manager Yes September 03, 2023 7:48am Advance Directive Response Recorded Date/ Time Do you have a Healthcare Power of Technical Sales Manager? No February 16, 2025 5:17pm Reason for Referral Specialty Diagnoses / Procedures Referred By Contac t Referred To Contact Diagnoses DM type 2 with diabetic peripheral neuropathy (HCC) Maribel Fay MD [address] [place] [address] Referral ID Status Reason Start Date Expiration Date V isits Requested Visits Authorized [id number] Pending Review 1 1 Referral ID Status Reason Start Date Expiration Date V isits Requested Visits Authorized [id number] Pending Review 1 1 Referral ID Status Reason Start Date Expiration Date Visits Re quested Visits Authorized [id number] Closed 1 1 Specialty Diagnoses / Procedures Referred By Contac t Referred To Contact Podiatry Diagnoses DM type 2 with diabetic peripheral neuropathy (HCC) Procedures CONSULT TO PODIATRY OFFICE/OUTPATIENT [facility] 60-74 MINUTES Maribel Fay MD [address] [place] [address] Referral ID Status Reason Start Date Expiration Date Visits Requested Visits Authorized [id number] Pending Review PCP Requested Referral 2 08/09/2023 1 1 Specialty Diagnoses / Procedures Referred By Contac t Referred To Contact Diagnoses DM type 2 with diabetic peripheral neuropathy (HCC) Bhavani Perez APRN.SHELF FILLER [address] [place] [address] Referral ID Status Reason Start Date Expiration Date V isits Requested Visits Authorized [id number] Authorized 09/16/2022 09/16/2022 1 1 Referral ID Status Reason Start Date Expiration Date V isits Requested Visits Authorized [id number] Pending Review 1 1 Specialty Diagnoses / Procedures Referred By Contac t Referred To Contact [facility] Diagnoses Arthritis of left hip Procedures PT REHAB FOLLOW UP ORDER THERAPEUTIC EXERCISES RE, EA 15 MIN. Jhoan Proctor, STEPH [facility] [address] [place] [address] Referral ID Status Reason Start Date Expiration Date Visits Requested Visits Authorized [id number] Pending Review PCP Requested Referral Auto-Generate d Referral 10/17/2023 01/15/2024 1 1 Specialty Diagnoses / Procedures Referred By Contac t Referred To Contact General Surgery Diagnoses Positive fecal occult blood test Procedures CONSULT TO GENERAL SURGERY OFFICE/OUTPATIENT [facility] 60 MINUTES PodlogarTosha APRN.VAMSHI [address] [place] [address] Referral ID Status Reason Start Date Expiration Date V isits Requested Visits Authorized [id number] Closed PCP Requested Referral 06/15/2024 06/15/2025 1 1 Specialty Diagnoses / Procedures Referred By Contac t Referred To Contact Orthopedics Diagnoses Numbness and tingling in left hand Procedures CONSULT TO ORTHOPAEDICS OFFICE/OUTPATIENT [facility] 60 MINUTES Maribel Fay MD [address] [place] [address] Referral ID Status Reason Start Date Expiration Date Visits Requested Visits Authorized [id number] Authorized PCP Requested Referral 09/06/2025 1 1 Specialty Diagnoses / Procedures Referred By Contact Referred To Contact [facility] Diagnoses Numbness and tingling in left hand Procedures EMG(NEURO/NI) NERVE CONDUCTION STUDIES 9-10 STUDIES Maribel Fay MD [address] [place] [address] [facility] [address] [place], [place] [id number] Referral ID Status Reason Start Date Expiration Date Visits Requested Visits Authorized [id number] Authorized Auto-Generat ed Referral 09/06/2025 1 1 Chief Complaint and Reason for Visit Chief Complaint DIZZINESS Chief Complaint DIZZINESS NEAR SYNCOPE, VERTIGO Reason for Visit Vertigo Chief Complaint Admit Date STROKE ALERT February 16, 2025 5:15p m Family History No Family History Records Found Relationship Condition Age at Onset Recorded Date/T sacha Unknown Family History?- Unknown July 9th, 2 017 9:23am Family History?Cancer, COPD Unknown February 25, 2017 9:23am Relationship Condition Age at Onset Recorded Date/T sacha mother Malignant neoplasm of lung Unknown Chronic obstructive pulmonary disease Unk nown father Alcoholism Unknown Coronary artery disease Unknown Cardiac disease Unknown Hypertension Unknown Myocardial infarction Unknown Summary Purpose Additional Source Comments Source Comments (unrecognize d section and content) In the event this informatio n is protected by the Federal Confidentiality of Alcohol and Drug Abuse Patient Records regulations: The Federal rules restrict any use of the information to criminally investigate or prosecute any alcohol or drug abuse patient.[facility] the event this information is protected by the Federal Confidentiality of Alcohol and Drug Abuse Patient Records regulations: The Federal rules restrict any use of the information to criminally investigate or prosecute any alcohol or drug abuse patient.[facility] the event this information is protected by the Federal Confidentiality of Alcohol and Drug Abuse Patient Records regulations: The Federal rules restrict any use of the information to criminally investigate or prosecute any alcohol or drug abuse patient.[facility] the event this information is protected by the Federal Confidentiality of Alcohol and Drug Abuse Patient Records regulations: The Federal rules restrict any use of the information to criminally investigate or prosecute any alcohol or drug abuse patient.[facility] the event this information is protected by the Federal Confidentiality of Alcohol and Drug Abuse Patient Records regulations: The Federal rules restrict any use of the information to criminally investigate or prosecute any alcohol or drug abuse patient.[facility] the event this information is protected by the Federal Confidentiality of Alcohol and Drug Abuse Patient Records regulations: The Federal rules restrict any use of the information to criminally investigate or prosecute any alcohol or drug abuse patient.[facility] the event this information is protected by the Federal Confidentiality of Alcohol and Drug Abuse Patient Records regulations: The Federal rules restrict any use of the information to criminally investigate or prosecute any alcohol or drug abuse patient.[facility] the event this information is protected by the Federal Confidentiality of Alcohol and Drug Abuse Patient Records regulations: The Federal rules restrict any use of the information to criminally investigate or prosecute any alcohol or drug abuse patient.[facility] the event this information is protected by the Federal Confidentiality of Alcohol and Drug Abuse Patient Records regulations: The Federal rules restrict any use of the information to criminally investigate or prosecute any alcohol or drug abuse patient.[facility] the event this information is protected by the Federal Confidentiality of Alcohol and Drug Abuse Patient Records regulations: The Federal rules restrict any use of the information to criminally investigate or prosecute any alcohol or drug abuse patient.[facility] the event this information is protected by the Federal Confidentiality of Alcohol and Drug Abuse Patient Records regulations: The Federal rules restrict any use of the information to criminally investigate or prosecute any alcohol or drug abuse patient.[facility] HospitalIn the event this information is protected by the Federal Confidentiality of Alcohol and Drug Abuse Patient Records regulations: The Federal rules restrict any use of the information to criminally investigate or prosecute any alcohol or drug abuse patient.[facility] HospitalIn the event this information is protected by the Federal Confidentiality of Alcohol and Drug Abuse Patient Records regulations: The Federal rules restrict any use of the information to criminally investigate or prosecute any alcohol or drug abuse patient.[facility] HospitalIn the event this information is protected by the Federal Confidentiality of Alcohol and Drug Abuse Patient Records regulations: The Federal rules restrict any use of the information to criminally investigate or prosecute any alcohol or drug abuse patient.[facility] HospitalIn the event this information is protected by the Federal Confidentiality of Alcohol and Drug Abuse Patient Records regulations: The Federal rules restrict any use of the information to criminally investigate or prosecute any alcohol or drug abuse patient.[facility] HospitalIn the event this information is protected by the Federal Confidentiality of Alcohol and Drug Abuse Patient Records regulations: The Federal rules restrict any use of the information to criminally investigate or prosecute any alcohol or drug abuse patient.[facility] HospitalIn the event this information is protected by the Federal Confidentiality of Alcohol and Drug Abuse Patient Records regulations: The Federal rules restrict any use of the information to criminally investigate or prosecute any alcohol or drug abuse patient.[facility] HospitalIn the event this information is protected by the Federal Confidentiality of Alcohol and Drug Abuse Patient Records regulations: The Federal rules restrict any use of the information to criminally investigate or prosecute any alcohol or drug abuse patient.[facility] HospitalIn the event this information is protected by the Federal Confidentiality of Alcohol and Drug Abuse Patient Records regulations: The Federal rules restrict any use of the information to criminally investigate or prosecute any alcohol or drug abuse patient.[facility] HospitalIn the event this information is protected by the Federal Confidentiality of Alcohol and Drug Abuse Patient Records regulations: The Federal rules restrict any use of the information to criminally investigate or prosecute any alcohol or drug abuse patient.[facility] HospitalIn the event this information is protected by the Federal Confidentiality of Alcohol and Drug Abuse Patient Records regulations: The Federal rules restrict any use of the information to criminally investigate or prosecute any alcohol or drug abuse patient.[facility] HospitalIn the event this information is protected by the Federal Confidentiality of Alcohol and Drug Abuse Patient Records regulations: The Federal rules restrict any use of the information to criminally investigate or prosecute any alcohol or drug abuse patient.[facility] HospitalIn the event this information is protected by the Federal Confidentiality of Alcohol and Drug Abuse Patient Records regulations: The Federal rules restrict any use of the information to criminally investigate or prosecute any alcohol or drug abuse patient.[facility] HospitalIn the event this information is protected by the Federal Confidentiality of Alcohol and Drug Abuse Patient Records regulations: The Federal rules restrict any use of the information to criminally investigate or prosecute any alcohol or drug abuse patient.[facility] HospitalIn the event this information is protected by the Federal Confidentiality of Alcohol and Drug Abuse Patient Records regulations: The Federal rules restrict any use of the information to criminally investigate or prosecute any alcohol or drug abuse patient.[facility] HospitalIn the event this information is protected by the Federal Confidentiality of Alcohol and Drug Abuse Patient Records regulations: The Federal rules restrict any use of the information to criminally investigate or prosecute any alcohol or drug abuse patient.[facility] HospitalIn the event this information is protected by the Federal Confidentiality of Alcohol and Drug Abuse Patient Records regulations: The Federal rules restrict any use of the information to criminally investigate or prosecute any alcohol or drug abuse patient.[facility] HospitalIn the event this information is protected by the Federal Confidentiality of Alcohol and Drug Abuse Patient Records regulations: The Federal rules restrict any use of the information to criminally investigate or prosecute any alcohol or drug abuse patient.[facility] HospitalIn the event this information is protected by the Federal Confidentiality of Alcohol and Drug Abuse Patient Records regulations: The Federal rules restrict any use of the information to criminally investigate or prosecute any alcohol or drug abuse patient.[facility] HospitalIn the event this information is protected by the Federal Confidentiality of Alcohol and Drug Abuse Patient Records regulations: The Federal rules restrict any use of the information to criminally investigate or prosecute any alcohol or drug abuse patient.[facility] HospitalIn the event this information is protected by the Federal Confidentiality of Alcohol and Drug Abuse Patient Records regulations: The Federal rules restrict any use of the information to criminally investigate or prosecute any alcohol or drug abuse patient.[facility] HospitalIn the event this information is protected by the Federal Confidentiality of Alcohol and Drug Abuse Patient Records regulations: The Federal rules restrict any use of the information to criminally investigate or prosecute any alcohol or drug abuse patient.[facility] HospitalIn the event this information is protected by the Federal Confidentiality of Alcohol and Drug Abuse Patient Records regulations: The Federal rules restrict any use of the information to criminally investigate or prosecute any alcohol or drug abuse patient.[facility] HospitalIn the event this information is protected by the Federal Confidentiality of Alcohol and Drug Abuse Patient Records regulations: The Federal rules restrict any use of the information to criminally investigate or prosecute any alcohol or drug abuse patient.[facility] HospitalIn the event this information is protected by the Federal Confidentiality of Alcohol and Drug Abuse Patient Records regulations: The Federal rules restrict any use of the information to criminally investigate or prosecute any alcohol or drug abuse patient.[facility] HospitalIn the event this information is protected by the Federal Confidentiality of Alcohol and Drug Abuse Patient Records regulations: The Federal rules restrict any use of the information to criminally investigate or prosecute any alcohol or drug abuse patient.[facility] HospitalIn the event this information is protected by the Federal Confidentiality of Alcohol and Drug Abuse Patient Records regulations: The Federal rules restrict any use of the information to criminally investigate or prosecute any alcohol or drug abuse patient.[facility] HospitalIn the event this information is protected by the Federal Confidentiality of Alcohol and Drug Abuse Patient Records regulations: The Federal rules restrict any use of the information to criminally investigate or prosecute any alcohol or drug abuse patient.[facility] HospitalIn the event this information is protected by the Federal Confidentiality of Alcohol and Drug Abuse Patient Records regulations: The Federal rules restrict any use of the information to criminally investigate or prosecute any alcohol or drug abuse patient.[facility] HospitalIn the event this information is protected by the Federal Confidentiality of Alcohol and Drug Abuse Patient Records regulations: The Federal rules restrict any use of the information to criminally investigate or prosecute any alcohol or drug abuse patient.[facility] HospitalIn the event this information is protected by the Federal Confidentiality of Alcohol and Drug Abuse Patient Records regulations: The Federal rules restrict any use of the information to criminally investigate or prosecute any alcohol or drug abuse patient.[facility] HospitalIn the event this information is protected by the Federal Confidentiality of Alcohol and Drug Abuse Patient Records regulations: The Federal rules restrict any use of the information to criminally investigate or prosecute any alcohol or drug abuse patient.[facility] HospitalIn the event this information is protected by the Federal Confidentiality of Alcohol and Drug Abuse Patient Records regulations: The Federal rules restrict any use of the information to criminally investigate or prosecute any alcohol or drug abuse patient.[facility] HospitalIn the event this information is protected by the Federal Confidentiality of Alcohol and Drug Abuse Patient Records regulations: The Federal rules restrict any use of the information to criminally investigate or prosecute any alcohol or drug abuse patient.[facility] HospitalIn the event this information is protected by the Federal Confidentiality of Alcohol and Drug Abuse Patient Records regulations: The Federal rules restrict any use of the information to criminally investigate or prosecute any alcohol or drug abuse patient.[facility] HospitalIn the event this information is protected by the Federal Confidentiality of Alcohol and Drug Abuse Patient Records regulations: The Federal rules restrict any use of the information to criminally investigate or prosecute any alcohol or drug abuse patient.[facility] HospitalIn the event this information is protected by the Federal Confidentiality of Alcohol and Drug Abuse Patient Records regulations: The Federal rules restrict any use of the information to criminally investigate or prosecute any alcohol or drug abuse patient.[facility] HospitalIn the event this information is protected by the Federal Confidentiality of Alcohol and Drug Abuse Patient Records regulations: The Federal rules restrict any use of the information to criminally investigate or prosecute any alcohol or drug abuse patient.[facility] HospitalIn the event this information is protected by the Federal Confidentiality of Alcohol and Drug Abuse Patient Records regulations: The Federal rules restrict any use of the information to criminally investigate or prosecute any alcohol or drug abuse patient.[facility] HospitalIn the event this information is protected by the Federal Confidentiality of Alcohol and Drug Abuse Patient Records regulations: The Federal rules restrict any use of the information to criminally investigate or prosecute any alcohol or drug abuse patient.[facility] HospitalIn the event this information is protected by the Federal Confidentiality of Alcohol and Drug Abuse Patient Records regulations: The Federal rules restrict any use of the information to criminally investigate or prosecute any alcohol or drug abuse patient.[facility] HospitalIn the event this information is protected by the Federal Confidentiality of Alcohol and Drug Abuse Patient Records regulations: The Federal rules restrict any use of the information to criminally investigate or prosecute any alcohol or drug abuse patient.[facility] HospitalIn the event this information is protected by the Federal Confidentiality of Alcohol and Drug Abuse Patient Records regulations: The Federal rules restrict any use of the information to criminally investigate or prosecute any alcohol or drug abuse patient.[facility] HospitalIn the event this information is protected by the Federal Confidentiality of Alcohol and Drug Abuse Patient Records regulations: The Federal rules restrict any use of the information to criminally investigate or prosecute any alcohol or drug abuse patient.[facility] HospitalIn the event this information is protected by the Federal Confidentiality of Alcohol and Drug Abuse Patient Records regulations: The Federal rules restrict any use of the information to criminally investigate or prosecute any alcohol or drug abuse patient.[facility] HospitalIn the event this information is protected by the Federal Confidentiality of Alcohol and Drug Abuse Patient Records regulations: The Federal rules restrict any use of the information to criminally investigate or prosecute any alcohol or drug abuse patient.[facility] HospitalIn the event this information is protected by the Federal Confidentiality of Alcohol and Drug Abuse Patient Records regulations: The Federal rules restrict any use of the information to criminally investigate or prosecute any alcohol or drug abuse patient.[facility] HospitalIn the event this information is protected by the Federal Confidentiality of Alcohol and Drug Abuse Patient Records regulations: The Federal rules restrict any use of the information to criminally investigate or prosecute any alcohol or drug abuse patient.[facility] HospitalIn the event this information is protected by the Federal Confidentiality of Alcohol and Drug Abuse Patient Records regulations: The Federal rules restrict any use of the information to criminally investigate or prosecute any alcohol or drug abuse patient.[facility] HospitalIn the event this information is protected by the Federal Confidentiality of Alcohol and Drug Abuse Patient Records regulations: The Federal rules restrict any use of the information to criminally investigate or prosecute any alcohol or drug abuse patient.[facility] HospitalIn the event this information is protected by the Federal Confidentiality of Alcohol and Drug Abuse Patient Records regulations: The Federal rules restrict any use of the information to criminally investigate or prosecute any alcohol or drug abuse patient.[facility] HospitalIn the event this information is protected by the Federal Confidentiality of Alcohol and Drug Abuse Patient Records regulations: The Federal rules restrict any use of the information to criminally investigate or prosecute any alcohol or drug abuse patient.[facility] HospitalIn the event this information is protected by the Federal Confidentiality of Alcohol and Drug Abuse Patient Records regulations: The Federal rules restrict any use of the information to criminally investigate or prosecute any alcohol or drug abuse patient.[facility] HospitalIn the event this information is protected by the Federal Confidentiality of Alcohol and Drug Abuse Patient Records regulations: The Federal rules restrict any use of the information to criminally investigate or prosecute any alcohol or drug abuse patient.[facility] HospitalIn the event this information is protected by the Federal Confidentiality of Alcohol and Drug Abuse Patient Records regulations: The Federal rules restrict any use of the information to criminally investigate or prosecute any alcohol or drug abuse patient.[facility] HospitalIn the event this information is protected by the Federal Confidentiality of Alcohol and Drug Abuse Patient Records regulations: The Federal rules restrict any use of the information to criminally investigate or prosecute any alcohol or drug abuse patient.[facility] HospitalIn the event this information is protected by the Federal Confidentiality of Alcohol and Drug Abuse Patient Records regulations: The Federal rules restrict any use of the information to criminally investigate or prosecute any alcohol or drug abuse patient.[facility] HospitalIn the event this information is protected by the Federal Confidentiality of Alcohol and Drug Abuse Patient Records regulations: The Federal rules restrict any use of the information to criminally investigate or prosecute any alcohol or drug abuse patient.[facility] HospitalIn the event this information is protected by the Federal Confidentiality of Alcohol and Drug Abuse Patient Records regulations: The Federal rules restrict any use of the information to criminally investigate or prosecute any alcohol or drug abuse patient.[facility] HospitalIn the event this information is protected by the Federal Confidentiality of Alcohol and Drug Abuse Patient Records regulations: The Federal rules restrict any use of the information to criminally investigate or prosecute any alcohol or drug abuse patient.[facility] HospitalIn the event this information is protected by the Federal Confidentiality of Alcohol and Drug Abuse Patient Records regulations: The Federal rules restrict any use of the information to criminally investigate or prosecute any alcohol or drug abuse patient.[facility] HospitalIn the event this information is protected by the Federal Confidentiality of Alcohol and Drug Abuse Patient Records regulations: The Federal rules restrict any use of the information to criminally investigate or prosecute any alcohol or drug abuse patient.[facility] HospitalIn the event this information is protected by the Federal Confidentiality of Alcohol and Drug Abuse Patient Records regulations: The Federal rules restrict any use of the information to criminally investigate or prosecute any alcohol or drug abuse patient.[facility] HospitalIn the event this information is protected by the Federal Confidentiality of Alcohol and Drug Abuse Patient Records regulations: The Federal rules restrict any use of the information to criminally investigate or prosecute any alcohol or drug abuse patient.[facility] HospitalIn the event this information is protected by the Federal Confidentiality of Alcohol and Drug Abuse Patient Records regulations: The Federal rules restrict any use of the information to criminally investigate or prosecute any alcohol or drug abuse patient.[facility] HospitalIn the event this information is protected by the Federal Confidentiality of Alcohol and Drug Abuse Patient Records regulations: The Federal rules restrict any use of the information to criminally investigate or prosecute any alcohol or drug abuse patient.[facility] HospitalIn the event this information is protected by the Federal Confidentiality of Alcohol and Drug Abuse Patient Records regulations: The Federal rules restrict any use of the information to criminally investigate or prosecute any alcohol or drug abuse patient.[facility] HospitalIn the event this information is protected by the Federal Confidentiality of Alcohol and Drug Abuse Patient Records regulations: The Federal rules restrict any use of the information to criminally investigate or prosecute any alcohol or drug abuse patient.[facility] HospitalIn the event this information is protected by the Federal Confidentiality of Alcohol and Drug Abuse Patient Records regulations: The Federal rules restrict any use of the information to criminally investigate or prosecute any alcohol or drug abuse patient.[facility] HospitalIn the event this information is protected by the Federal Confidentiality of Alcohol and Drug Abuse Patient Records regulations: The Federal rules restrict any use of the information to criminally investigate or prosecute any alcohol or drug abuse patient.[facility] HospitalIn the event this information is protected by the Federal Confidentiality of Alcohol and Drug Abuse Patient Records regulations: The Federal rules restrict any use of the information to criminally investigate or prosecute any alcohol or drug abuse patient.[facility] HospitalIn the event this information is protected by the Federal Confidentiality of Alcohol and Drug Abuse Patient Records regulations: The Federal rules restrict any use of the information to criminally investigate or prosecute any alcohol or drug abuse patient.[facility] HospitalIn the event this information is protected by the Federal Confidentiality of Alcohol and Drug Abuse Patient Records regulations: The Federal rules restrict any use of the information to criminally investigate or prosecute any alcohol or drug abuse patient.[facility] HospitalIn the event this information is protected by the Federal Confidentiality of Alcohol and Drug Abuse Patient Records regulations: The Federal rules restrict any use of the information to criminally investigate or prosecute any alcohol or drug abuse patient.[facility] HospitalIn the event this information is protected by the Federal Confidentiality of Alcohol and Drug Abuse Patient Records regulations: The Federal rules restrict any use of the information to criminally investigate or prosecute any alcohol or drug abuse patient.[facility] HospitalIn the event this information is protected by the Federal Confidentiality of Alcohol and Drug Abuse Patient Records regulations: The Federal rules restrict any use of the information to criminally investigate or prosecute any alcohol or drug abuse patient.[facility] HospitalIn the event this information is protected by the Federal Confidentiality of Alcohol and Drug Abuse Patient Records regulations: The Federal rules restrict any use of the information to criminally investigate or prosecute any alcohol or drug abuse patient.[facility] HospitalIn the event this information is protected by the Federal Confidentiality of Alcohol and Drug Abuse Patient Records regulations: The Federal rules restrict any use of the information to criminally investigate or prosecute any alcohol or drug abuse patient.[facility] HospitalIn the event this information is protected by the Federal Confidentiality of Alcohol and Drug Abuse Patient Records regulations: The Federal rules restrict any use of the information to criminally investigate or prosecute any alcohol or drug abuse patient.[facility] HospitalIn the event this information is protected by the Federal Confidentiality of Alcohol and Drug Abuse Patient Records regulations: The Federal rules restrict any use of the information to criminally investigate or prosecute any alcohol or drug abuse patient.[facility] HospitalIn the event this information is protected by the Federal Confidentiality of Alcohol and Drug Abuse Patient Records regulations: The Federal rules restrict any use of the information to criminally investigate or prosecute any alcohol or drug abuse patient.[facility] HospitalIn the event this information is protected by the Federal Confidentiality of Alcohol and Drug Abuse Patient Records regulations: The Federal rules restrict any use of the information to criminally investigate or prosecute any alcohol or drug abuse patient.[facility] HospitalIn the event this information is protected by the Federal Confidentiality of Alcohol and Drug Abuse Patient Records regulations: The Federal rules restrict any use of the information to criminally investigate or prosecute any alcohol or drug abuse patient.[facility] HospitalIn the event this information is protected by the Federal Confidentiality of Alcohol and Drug Abuse Patient Records regulations: The Federal rules restrict any use of the information to criminally investigate or prosecute any alcohol or drug abuse patient.[facility] the event this information is protected by the Federal Confidentiality of Alcohol and Drug Abuse Patient Records regulations: The Federal rules restrict any use of the information to criminally investigate or prosecute any alcohol or drug abuse patient.[facility] the event this information is protected by the Federal Confidentiality of Alcohol and Drug Abuse Patient Records regulations: The Federal rules restrict any use of the information to criminally investigate or prosecute any alcohol or drug abuse patient.[facility] the event this information is protected by the Federal Confidentiality of Alcohol and Drug Abuse Patient Records regulations: The Federal rules restrict any use of the information to criminally investigate or prosecute any alcohol or drug abuse patient.[facility] the event this information is protected by the Federal Confidentiality of Alcohol and Drug Abuse Patient Records regulations: The Federal rules restrict any use of the information to criminally investigate or prosecute any alcohol or drug abuse patient.[facility] the event this information is protected by the Federal Confidentiality of Alcohol and Drug Abuse Patient Records regulations: The Federal rules restrict any use of the information to criminally investigate or prosecute any alcohol or drug abuse patient.[facility] Hospital[facility] the event this information is protected by the Federal Confidentiality of Alcohol and Drug Abuse Patient Records regulations: The Federal rules restrict any use of the information to criminally investigate or prosecute any alcohol or drug abuse patient.[facility] Hospital[facility] the event this information is protected by the Federal Confidentiality of Alcohol and Drug Abuse Patient Records regulations: The Federal rules restrict any use of the information to criminally investigate or prosecute any alcohol or drug abuse patient.[facility] Hospital[facility] the event this information is protected by the Federal Confidentiality of Alcohol and Drug Abuse Patient Records regulations: The Federal rules restrict any use of the information to criminally investigate or prosecute any alcohol or drug abuse patient.[facility] Reason for Visit (unrecogniz ed section and content) Reason Comments Patient Update Reason Comments Follow Up 3 month Reason Comments Diabetic Foot Care Follow Up Reason Onset Date Comments Refill Request 02/24/2022 Reason Comments Recheck 3 month follow up Reason Comments Results Reason Onset Date Comments Refill Request 06/17/2022 Reason Onset Date Comments Refill Request 06/24/2022 Reason Onset Date Comments Follow Up 3 month - had brianna mclaughlin wants Flu shot Immunizations 08/09/2022 Flu vaccination Reason Comments Results Reason Comments Established Patient Follow Up Diabetic Foot Care Specialty Diagnoses / Procedures Referred By Juani t Referred To Contact Podiatry Diagnoses DM type 2 with diabetic peripheral neuropathy (HCC) Procedures CONSULT TO PODIATRY OFFICE/OUTPATIENT NEW HIGH MDM 60-74 MINUTES Maribel Fay MD [address] [place] [address] Referral ID Status Reason Start Date Expiration Date Visits Requested Visits Authorized [id number] Pending Review PCP Requested Referral 08/09/2023 1 1 Reason Onset Date Comments Refill Request 09/14/2022 Reason Onset Date Comments Med Change Request Refill Request 09/16/2022 Reason Comments Follow Up 3 month follow up- l eft handed numbness reports ongoing Reason Onset Date Comments Refill Request 01/27/2023 Reason Onset Date Comments Refill Request 03/10/2023 Reason Comments Consult Reason Comments Refill Request Reason Comments Established Patient Diabetic Foot Care Follow Up Reason Onset Date Comments Refill Request 07/08/2023 Reason Comments Refill Request Reason Onset Date Comments Refill Request 08/08/2023 Reason Comments Insurance Authorization Embrace talk micky t strips Reason Comments Follow Up 3 month follow up Reason Comments Dizziness Reason Comments PT Eval Specialty Diagnoses / Procedures Referred By Contac t Referred To Contact [facility] Diagnoses Arthritis of left hip Procedures CONSULT TO PHYSICAL THERAPY PHYSICAL THERAPY EVALUATION HIGH COMPLEX 45 MINS Rajesh Henderson V, DO [address] [place] [address] [facility] [place] [address] [place] [id number] Referral ID Status Reason Start Date Expiration Date V isits Requested Visits Authorized [id number] Closed Auto-Generate d Referral 09/19/2023 09/18/2024 1 1 Reason Comments Patient Question PT Reason Comments Patient Request Reason Comments Physical Therapy Specialty Diagnoses / Procedures Referred By Contac t Referred To Contact [facility] Diagnoses Arthritis of left hip Procedures PT REHAB FOLLOW UP ORDER THERAPEUTIC EXERCISES RE, EA 15 MIN. Jhoan Proctor, PT [facility] [place] [address] [place] [address] Referral ID Status Reason Start Date Expiration Date Visits Requested Visits Authorized [id number] Authorized PCP Requested Referral Auto-Generate d Referral 10/21/2023 12/19/2023 8 8 Reason Comments medication not on current med list Reason Comments Follow Up 1 week follow up low BS and insulin adjustment Reason Comments Established Patient Debridement of Nail Reason Onset Date Comments Refill Request 01/11/2024 Reason Onset Date Comments Refill Request 03/26/2024 Reason Comments Established Patient Follow Up Diabetic Foot Check Reason Onset Date Comments Refill Request 04/11/2024 Reason Onset Date Comments Refill Request 04/19/2024 Reason Onset Date Comments Refill Request 04/30/2024 Reason Comments F/U 3 Month Reason Comments Wrist Pain Reason Comments Wrist Pain Right wrist x2 days Reason Onset Date Comments Refill Request 06/18/2024 Reason Comments Consult colonoscopy Specialty Diagnoses / Procedures Referred By Contac t Referred To Contact General Surgery Diagnoses Positive fecal occult blood test Procedures CONSULT TO GENERAL SURGERY OFFICE/OUTPATIENT [facility] 60 MINUTES PodlogTosha teran APRN.CNP [address] [place] [address] Referral ID Status Reason Start Date Expiration Date V isits Requested Visits Authorized [id number] Closed PCP Requested Referral 06/15/2024 06/15/2025 1 1 Reason Onset Date Comments Population Health Navigation Outreach 06/29/2024 [employer] workbench lorenzo Reason Comments Medication Question Refill Request Reason Comments Patient Question Reason Comments Follow Up EGD & Colon 07/12 Reason Comments Low Blood Sugar Reason Onset Date Comments Refill Request 08/30/2024 Reason Comments Follow Up blood sugars and lef t hand issues, balance issuesThis AM 128 blood sugar and 1 week ago had a low of 77 Reason Onset Date Comments Population Health Navigation Outreach 09/14/2024 [employer] Naviswissangela lorenzo Reason Comments Appointment Reason Comments Follow Up Laeft wrist and Bloo d sugars-Patient continued the Lantus at 28 units because she wasn't sure which insulin and amount you adjusted. Reason Comments Patient Update Blood Sugars Reason Comments Results EMG Reason Onset Date Comments Results 11/20/2024 Reason Comments Established Patient Pain Numbness Specialty Diagnoses / Procedures Referred By Contac t Referred To Contact Orthopedics Diagnoses Numbness and tingling in left hand Procedures CONSULT TO ORTHOPAEDICS OFFICE/OUTPATIENT [facility] 60 MINUTES Maribel Fay MD [address] [place] [address] Phone: tel: fax: Referral ID Status Reason Start Date Expiration Date V isits Requested Visits Authorized [id number] Closed PCP Requested Referral 09/06/2024 09/06/2025 1 1 Reason Onset Date Comments Population Health Navigation Outreach 12/17/2024 Candice Sannaromina Julia Reason Comments Pre-op A1c Level Reason Comments Follow Up 4 week Reason Comments Post Op Reason Onset Date Comments Population Health Navigation Outreach 01/16/2025 Candice Romerorenaeromina MetcalfJulia Reason Comments Follow Up Nail Care Diabetic Foot Care Diabetic Foot Check Reason Comments Follow Up 4 week Pain Stiffness neck and l eft leg c/o is useless- reports due to being in tight quarters in a car for 5-[address] plus stayed in soft bed while away Reason Onset Date Comments Results 01/22/2025 Xrays of spine a nd hip Specialty Diagnoses / Procedures Referred By Juani cristina Referred To Contact [facility] Diagnoses Neck pain Acute hip pain, left Procedures CONSULT TO PHYSICAL THERAPY PHYSICAL THERAPY EVALUATION HIGH COMPLEX 45 MINS Maribel Fay MD [address] [place] [address] Phone: tel: fax: [facility] [address] [place] [phone] Referral ID Status Reason Start Date Expiration Date V isits Requested Visits Authorized [id number] Closed Auto-Generate d Referral 09/19/2024 09/18/2025 1 1 Specialty Diagnoses / Procedures Referred By Juani cristina Referred To Contact [facility] Diagnoses Neck pain Acute hip pain, left Procedures PT REHAB FOLLOW UP ORDER THERAPEUTIC EXERCISES RE, EA 15 MIN. Maribel Fay MD [address] [place] [address] Phone: tel: fax: [facility] [address] [place] [address] Referral ID Status Reason Start Date Expiration Date Visits Requested Visits Authorized [id number] Authorized PCP Requested Referral Auto-Generate d Referral 01/31/2025 04/18/2025 10 10 Reason Onset Date Comments Population Health Navigation Outreach 02/15/2025 Celinelino Lavelle Lorenzo Care Teams (unrecognized sec tion and content) Sap Sd Analyst Relationship Specialty Start Date End Date Maribel Fay MD [address] [place] [address] PCP - General Family Practice 10/18/16 Sap Sd Analyst Relationship Specialty Start Date End Date Maribel Fay MD [address] [facility] [place] [address] PCP - General Family Practice 10/18/16 Sap Sd Analyst Relationship Specialty Start Date End Date Maribel Fay MD [address] [facility] [place] [address] PCP - General Family Practice 10/18/16 Sap Sd Analyst Relationship Specialty Start Date End Date Maribel Fay MD [address] [facility] [place] [place] [address] PCP - General Family Practice 10/18/16 Sap Sd Analyst Relationship Specialty Start Date End Date Maribel Fay MD [address] [facility] [place] [place] [address] PCP - General Family Practice 10/18/16 Sap Sd Analyst Relationship Specialty Start Date End Date Maribel Fay MD [address] [facility] [place] [address] PCP - General Family Practice 10/18/16 Sap Sd Analyst Relationship Specialty Start Date End Date Maribel Fay MD [address] [facility] [place] [address] PCP - General Family Medicine 10/18/16 Sap Sd Analyst Relationship Specialty Start Date End Date Maribel Fay MD [address] [facility] [place] [address] PCP - General Family Medicine 10/18/16 Sap Sd Analyst Relationship Specialty Start Date End Date Maribel Fay MD [address] [facility] [place] [address] PCP - General Family Medicine 10/18/16 Sap Sd Analyst Relationship Specialty Start Date End Date Maribel Fay MD [address] [facility] [place] [place] [address] PCP - General Family Medicine 10/18/16 Sap Sd Analyst Relationship Specialty Start Date End Date Maribel Fay MD [address] [facility] [place] [address] PCP - General Family Medicine 10/18/16 Sap Sd Analyst Relationship Specialty Start Date End Date Maribel Fay MD [address] [facility] [place] [place] [address] PCP - General Family Medicine 10/18/16 Sap Sd Analyst Relationship Specialty Start Date End Date Maribel Fay MD [address] [facility] [place] [address] PCP - General Family Medicine 10/18/16 Sap Sd Analyst Relationship Specialty Start Date End Date Maribel Fay MD [address] [facility] [place] [address] PCP - General Family Medicine 10/18/16 Sap Sd Analyst Relationship Specialty Start Date End Date Maribel Fay MD [address] [facility] [place] [place] [address] PCP - General Family Medicine 10/18/16 Sap Sd Analyst Relationship Specialty Start Date End Date Maribel Fay MD [address] [facility] [place] [place] [address] PCP - General Family Medicine 10/18/16 Sap Sd Analyst Relationship Specialty Start Date End Date Maribel Fay MD [address] [facility] [place] [place] [address] PCP - General Family Medicine 10/18/16 Sap Sd Analyst Relationship Specialty Start Date End Date Maribel Fay MD [address] [facility] [place] [place] [address] PCP - General Family Medicine 10/18/16 Sap Sd Analyst Relationship Specialty Start Date End Date Maribel Fay MD [address] [facility] [place] [place] [address] PCP - General Family Medicine 10/18/16 Sap Sd Analyst Relationship Specialty Start Date End Date Maribel Fay MD [address] [place] [address] PCP - General Family Medicine 10/18/16 Sap Sd Analyst Relationship Specialty Start Date End Date Maribel Fay MD [address] [place] [address] PCP - General Family Medicine 10/18/16 Sap Sd Analyst Relationship Specialty Start Date End Date Maribel Fay MD [address] [place] [address] PCP - General Family Medicine 10/18/16 Sap Sd Analyst Relationship Specialty Start Date End Date Maribel Fay MD [address] [place] [address] PCP - General Family Medicine 10/18/16 Sap Sd Analyst Relationship Specialty Start Date End Date Maribel Fay MD [address] [place] [address] PCP - General Family Medicine 10/18/16 Sap Sd Analyst Relationship Specialty Start Date End Date Maribel Fay MD [address] [place] [address] PCP - General Family Medicine 10/18/16 Sap Sd Analyst Relationship Specialty Start Date End Date Maribel Fay MD [address] [facility] [place] [address] PCP - General Family Medicine 10/18/16 Sap Sd Analyst Relationship Specialty Start Date End Date Maribel Fay MD [address] [facility] [place] [place] [address] PCP - General Family Medicine 10/18/16 Sap Sd Analyst Relationship Specialty Start Date End Date Maribel Fay MD [address] [facility] [place] [place] [address] PCP - General Family Medicine 10/18/16 Sap Sd Analyst Relationship Specialty Start Date End Date Maribel Fay MD [address] [facility] [place] [place] [address] PCP - General Family Medicine 10/18/16 Sap Sd Analyst Relationship Specialty Start Date End Date Maribel Fay MD [address] [facility] [place] [address] PCP - General Family Medicine 10/18/16 Sap Sd Analyst Relationship Specialty Start Date End Date Maribel Fay MD [address] [facility] [place] [place] [address] PCP - General Family Medicine 10/18/16 Sap Sd Analyst Relationship Specialty Start Date End Date Maribel Fay MD [address] [facility] [place] [place] [address] PCP - General Family Medicine 10/18/16 Sap Sd Analyst Relationship Specialty Start Date End Date Maribel Fay MD [address] [facility] [place] [address] PCP - General Family Medicine 10/18/16 Sap Sd Analyst Relationship Specialty Start Date End Date Maribel Fay MD [address] [facility] [place] [place] [address] PCP - General Family Medicine 10/18/16 Sap Sd Analyst Relationship Specialty Start Date End Date Maribel Fay MD [address] [facility] [place] [place] [address] PCP - General Family Medicine 10/18/16 Sap Sd Analyst Relationship Specialty Start Date End Date Maribel Fay MD [address] [facility] [place] [place] [address] PCP - General Family Medicine 10/18/16 Sap Sd Analyst Relationship Specialty Start Date End Date Maribel Fay MD [address] [facility] [place] [address] PCP - General Family Medicine 10/18/16 Sap Sd Analyst Relationship Specialty Start Date End Date Maribel Fay MD [address] [facility] [place] [place] [address] PCP - General Family Medicine 10/18/16 Sap Sd Analyst Relationship Specialty Start Date End Date Maribel Fay MD [address] [facility] [place] [place] [address] PCP - General Family Medicine 10/18/16 Sap Sd Analyst Relationship Specialty Start Date End Date Maribel Fay MD [address] [facility] [place] [address] PCP - General Family Medicine 10/18/16 Sap Sd Analyst Relationship Specialty Start Date End Date Maribel Fay MD [address] [facility] [place] [place] [address] PCP - General Family Medicine 10/18/16 Sap Sd Analyst Relationship Specialty Start Date End Date Maribel Fay MD [address] [facility] [place] [place] [address] PCP - General Family Medicine 10/18/16 Sap Sd Analyst Relationship Specialty Start Date End Date Maribel Fay MD [address] [facility] [place] [place] [address] PCP - General Family Medicine 10/18/16 Sap Sd Analyst Relationship Specialty Start Date End Date Maribel Fay MD [address] [facility] [place] [address] PCP - General Family Medicine 10/18/16 Sap Sd Analyst Relationship Specialty Start Date End Date Maribel Fay MD [address] [facility] [place] [address] PCP - General Family Medicine 10/18/16 Sap Sd Analyst Relationship Specialty Start Date End Date Maribel Fay MD [address] [facility] [place] [place] [address] PCP - General Family Medicine 10/18/16 Sap Sd Analyst Relationship Specialty Start Date End Date Maribel Fay MD [address] [facility] [place] [address] PCP - General Family Medicine 10/18/16 Sap Sd Analyst Relationship Specialty Start Date End Date Maribel Fay MD [address] [facility] [place] [address] PCP - General Family Medicine 10/18/16 Sap Sd Analyst Relationship Specialty Start Date End Date Maribel Fay MD [address] [facility] [place] [address] PCP - General Family Medicine 10/18/16 Sap Sd Analyst Relationship Specialty Start Date End Date Maribel Fay MD [address] [facility] [place] [address] PCP - General Family Medicine 10/18/16 Sap Sd Analyst Relationship Specialty Start Date End Date Maribel Fay MD [address] [facility] [place] [address] PCP - General Family Medicine 10/18/16 Sap Sd Analyst Relationship Specialty Start Date End Date Maribel Fay MD [address] [facility] [place] [place] [address] PCP - General Family Medicine 10/18/16 Sap Sd Analyst Relationship Specialty Start Date End Date Maribel Fay MD [address] [facility] [place] [address] PCP - General Family Medicine 10/18/16 Sap Sd Analyst Relationship Specialty Start Date End Date Maribel Fay MD [address] [facility] [place] [address] PCP - General Family Medicine 10/18/16 Sap Sd Analyst Relationship Specialty Start Date End Date Maribel Fay MD [address] [facility] [place] [address] PCP - General Family Medicine 10/18/16 Tosha Pelaez APRN.CNP [address] [facility] [place] [address] [facility] 08/25/24 Team Status: Active Member Role Status Dates Dr. Favio Landis MD Family Provider Active Dr. Maik Fay MD Primary Care Provider Acti ve Team Status: Inactive Member Role Status Dates Dr. Simon Rivera , DO Emergency Provider Active Dr. Maik Fay MD Primary Care Provider Acti ve Team Status: Active Member Role Status Dates Dr. Maik Fay MD Primary Care Provider Acti ve Dr. Tristan Huitron , DO Emergency Provider Active Dr. Kaia Mcclain MD Admit Provider, Attending Prov ider Active Team Status: Inactive Member Role Status Dates Dr. Maik Fay MD Primary Care Provider Acti ve Dr. Tristan Huitron , DO Emergency Provider Active Dr. Kaia Mcclain MD Admit Provider, Other Provider Active Dr. Eugene Ayala , Attending Provider Active Dr. Lisy Lr MD Other Provider Active Sap Sd Analyst Relationship Specialty Start Date End Date Maribel Fay MD [address] [place] [address] PCP - General Family Medicine 10/18/16 Podlogar, Tosha, VP MARKETING.SHELF FILLER [address] [place] [address] [facility] 08/25/24 Sap Sd Analyst Relationship Specialty Start Date End Date Maribel Fay MD [address] [place] [address] PCP - General [facility] 10/18/16 Podlogar, Tosha, VP MARKETING.SHELF FILLER [address] [place] [address] [facility] 08/25/24 Sap Sd Analyst Relationship Specialty Start Date End Date Maribel Fay MD [address] [place] [address] PCP - General Family Medicine 10/18/16 Podlogar, Tosha, VP MARKETING.SHELF FILLER [address] [place] [address] [facility] 08/25/24 Sap Sd Analyst Relationship Specialty Start Date End Date Maribel Fay MD [address] [place] [address] PCP - General Family Medicine 10/18/16 Podlogar, Tosha, VP MARKETING.SHELF FILLER [address] [place] [address] [facility] 08/25/24 Sap Sd Analyst Relationship Specialty Start Date End Date Maribel Fay MD [address] [place] [address] PCP - General Family Medicine 10/18/16 Podlogar, Tosha, VP MARKETING.SHELF FILLER [address] [place] [address] [facility] 08/25/24 Sap Sd Analyst Relationship Specialty Start Date End Date Maribel Fay MD [address] [place] [address] PCP - General Family Medicine 10/18/16 Podlogar, Tosha, VP MARKETING.SHELF FILLER [address] [place] [address] [facility] 08/25/24 Sap Sd Analyst Relationship Specialty Start Date End Date Maribel Fay MD [address] [place] [address] PCP - General Family Medicine 10/18/16 Podlogar, Tosha, VP MARKETING.SHELF FILLER [address] [place] [address] [facility] 08/25/24 Sap Sd Analyst Relationship Specialty Start Date End Date Maribel Fay MD [address] [place], [place] [address] PCP - General Family Medicine 10/18/16 Podlogar, Tosha, VP MARKETING.SHELF FILLER [address] [place] [address] [facility] 08/25/24 Sap Sd Analyst Relationship Specialty Start Date End Date Maribel Fay MD [address] [place] [address] PCP - General Family Medicine 10/18/16 Podlogar, Tosha, VP MARKETING.SHELF FILLER [address] [place] [address] [facility] 08/25/24 Bhavani Perez, VP MARKETING.SHELF FILLER [address] [place], [place] [address] [facility] 11/30/24 Sap Sd Analyst Relationship Specialty Start Date End Date Maribel Fay MD [address] [place], [place] [address] PCP - General Family Medicine 10/18/16 Podlogar, Tosha, VP MARKETING.SHELF FILLER [address] [place] [address] [facility] 08/25/24 Bhavani Perez APRN.SHELF FILLER [address] [place] [address] [facility] 11/30/24 Sap Sd Analyst Relationship Specialty Start Date End Date Maribel Fay MD [address] [facility], [place] [address] [phone] PCP - General Family Medicine 10/18/16 Podlogar, Tosha VP MARKETING.SHELF FILLER [address] [place] [address] [facility] 08/25/24 Bhavani Peerz APRN.SHELF FILLER [address] [place] [address] [facility] 11/30/24 Sap Sd Analyst Relationship Specialty Start Date End Date Maribel Fay MD [address] [place] [address] PCP - General Family Medicine 10/18/16 Podlogar, Tosha VP MARKETING.SHELF FILLER [address] [place] [address] [facility] 08/25/24 Bhavani Perez VP MARKETING.SHELF FILLER [address] [place] [address] [facility] 11/30/24 12/09/24 Sap Sd Analyst Relationship Specialty Start Date End Date Maribel Fay MD [address] [facility] [place] [address] PCP - General Family Medicine 10/18/16 PodTosha barajas, VP MARKETING.SHELF FILLER [address] [facility] [place] [address] [facility] 08/25/24 Bhavani Perez APRN.SHELF FILLER [address] [place] [address] [facility] 12/10/24 Sap Sd Analyst Relationship Specialty Start Date End Date Maribel Fay MD [address] [place] [address] PCP - General Family Medicine 10/18/16 PodlogTosha teran APRN.SHELF FILLER [address] [place] [address] [facility] 08/25/24 Bhavani Perez APRN.SHELF FILLER [address] [place] [address] [facility] 12/10/24 Sap Sd Analyst Relationship Specialty Start Date End Date Maribel Fay MD [address] [place] [address] PCP - General Family Medicine 10/18/16 ConstancelogarTosha APRN.SHELF FILLER [address] [place] [address] [facility] 08/25/24 Bhavani Perez APRN.SHELF FILLER [address] [place] [address] [facility] 12/10/24 Sap Sd Analyst Relationship Specialty Start Date End Date Maribel Fay MD [address] [place] [address] PCP - General Family Medicine 10/18/16 PodlogarTosha APRN.SHELF FILLER [address] [place] [address] [facility] 08/25/24 Bhavani Perez APRN.SHELF FILLER [address] [place] [address] [facility] 12/10/24 Sap Sd Analyst Relationship Specialty Start Date End Date Maribel Fay MD [address] [place] [address] PCP - General Family Medicine 10/18/16 PodlogarTosha APRN.SHELF FILLER [address] [place] [address] [facility] 08/25/24 Bhavani Perez APRN.SHELF FILLER [address] [place] [address] [facility] 12/10/24 Sap Sd Analyst Relationship Specialty Start Date End Date Maribel Fay MD [address] [place] [address] PCP - General Family Medicine 10/18/16 PodlogarTosha APRN.SHELF FILLER [address] [place] [address] [facility] 08/25/24 Bhavani Perez APRN.SHELF FILLER [address] [place] [address] [facility] 12/10/24 Sap Sd Analyst Relationship Specialty Start Date End Date Maribel Fay MD [address] [place] [address] PCP - General Family Medicine 10/18/16 Podlogar, BRIGITTE GivensN.SHELF FILLER [address] [place] [address] [facility] 08/25/24 Bhavani Perez APRN.SHELF FILLER [address] [place] [address] [facility] 12/10/24 Sap Sd Analyst Relationship Specialty Start Date End Date Maribel Fay MD [address] [place] [address] PCP - General Family Medicine 10/18/16 Podlogar, Tosha VP MARKETING.SHELF FILLER [address] [place] [address] [facility] 08/25/24 Bhavani Perez, VP MARKETING.SHELF FILLER [address] [place] [address] [facility] 12/10/24 Sap Sd Analyst Relationship Specialty Start Date End Date Maribel Fay MD [address] [place] [address] PCP - General Family Medicine 10/18/16 Podlogar, Tosha, VP MARKETING.SHELF FILLER [address] [place] [address] [facility] 08/25/24 Bhavani Perez, VP MARKETING.SHELF FILLER [address] [place] [address] [facility] 12/10/24 Sap Sd Analyst Relationship Specialty Start Date End Date Maribel Fay MD [address] [place] [address] PCP - General Family Medicine 10/18/16 PodlogarTosha, VP MARKETING.SHELF FILLER [address] [place] [address] [facility] Medicine 08/25/24 Bhavani Perez, VP MARKETING.SHELF FILLER [address] [place] [address] [facility] 12/10/24 Sap Sd Analyst Relationship Specialty Start Date End Date Maribel Fay MD [address] [place] [address] PCP - General Family Medicine 10/18/16 Podlogar, Tosha, VP MARKETING.SHELF FILLER [address] [place] [address] [facility] 08/25/24 Sap Sd Analyst Relationship Specialty Start Date End Date Maribel Fay MD [address] [place] [address] PCP - General Family Medicine 10/18/16 Podlogar, Tosha, VP MARKETING.SHELF FILLER [address] [facility] [place] [address] [facility] Medicine 08/25/24 Sap Sd Analyst Relationship Specialty Start Date End Date Maribel Fay MD [address] [place] [address] PCP - General Family Medicine 10/18/16 Tosha Pelaez APRN.SHELF FILLER [address] [place] [address] [facility] 08/25/24 Team Status: Active Member Role Status Dates Dr. Maik Fay MD Primary Care Provider Acti ve Team Status: Inactive Member Role Status Dates Dr. Maik Fay MD Primary Care Provider Acti ve Start: February 16, 2025 End: February 16, 2025 Dr. Edward Ribeiro MD Emergency Provider Active Sta rt: February 16, 2025 End: February 16, 2025 Goals (unrecognized section and content) Goals may be documented in a n alternate sectionGoals may be documented in an alternate sectionGoals may be documented in an alternate section INFORMATION SOURCE (unrecogn ized section and content) DATE CREATED AUTHOR 12/14/2024 [facility] DATE CREATED AUTHOR AUTHOR'S ORGANIZ ATION 02/20/2025 [facility] DATE CREATED AUTHOR AUTHOR'S ORGANIZ ATION 02/22/2025 [facility] DATE CREATED AUTHOR AUTHOR'S ORGANIZ ATION 02/22/2025 [facility] FOR RECORDS PERTAINING TO PATIENTS WHO ARE OR HAVE BEEN ENROLLED IN A CHEMICAL DEPENDENCY/SUBSTANCEABUSE PROGRAM, SOME INFORMATION MAY BE OMITTED. This clinical summary was aggregated from multiple sources. Caution should be exercised in using it in the provision of clinical care. This summary normalizes information from multiple sources, and as a consequence, information in this document may materially change the coding, format and clinical context of patient data. In addition, data may be omitted in some cases. CLINICAL DECISIONS SHOULD BE BASED ON THE PRIMARY CLINICAL RECORDS. [facility]. provides no warranty or guarantee of the accuracy or completeness of information in this document.
[2025-02-22] MEDS: Pramipexole Di-HCl 0.25 MG Tablet PO (21:32)
[2025-02-22] MEDS: Senna/Docusate Sodium 1 Tablet 2 TABLET PO (21:32)
[2025-02-22] MEDS: Gabapentin 300 MG Capsule PO (21:32)
[2025-02-22] MEDS: Atorvastatin Calcium 40 MG Tablet PO (21:32)
[2025-02-22] MEDS: APIXABAN 5 MG TABLET PO (21:33)
[2025-02-22 21:41] LABS: Bedside Glucose 178 mg/dL (74-106)
[2025-02-22 21:42] VITALS: BP 123/66; PULSE 66; RESP 17; O2SAT 95
[2025-02-22 22:00] VITALS: RESP 17
[2025-02-22] MEDS: Insulin Lispro 100 UNIT/ML INSULN.PEN SC (22:49)
[2025-02-23] VITALS (7 sets, daily range): BP systolic 98–119; BP diastolic 50–61; PULSE 70–81; RESP 16–18; TEMP 35.9–36.4; O2SAT 93–96; BMI 29.0
[2025-02-23 06:55] LABS: Bedside Glucose 161 mg/dL (74-106)
[2025-02-23 07:23] LABS: Absolute Lymphocyte Count 1.58 X10^3/uL (0.83-4.51); Absolute Neutrophil Count 6.5 X10^3/uL (2.0-7.7); Basophil# 0.03 X10^3/uL; Basophil% 0.3 % (0-1); Eosinophil# 0.14 X10^3/uL; Eosinophils% 1.5 % (0-5); Hematocrit 32.8 % (37-47); Hemoglobin 11.1 g/dL (12.0-15.0); Lymphocyte # 1.58 X10^3/ul (0.83-4.51); Lymphocyte % 17.2 % (19-41); Mean Corp Hgb Conc 33.8 g/dL (32-36); Mean Corpuscular Volume 88.6 fL (81-99); Monocyte# 0.87 X10^3/uL; Monocyte% 9.5 % (0-10); NRBC Flagged by Analyzer 0 % (0-5); Neutrophil # 6.45 X10^3/uL (2.7-7.7); Neutrophil % 70.2 % (47-70); Platelet Count 292 K/mm3 (150-450); RBC Distribution Width CV 15.3 % (11.6-14.6); RBC Distribution Width SD 49.3 fl (35.1-43.9); White Blood Count 9.2 K/mm3 (4.4-11.0)
[2025-02-23 07:52] LABS: Magnesium 2.2 mg/dL (1.5-2.2); Phosphorus 2.8 mg/dL (2.7-4.5)
[2025-02-23 08:10] LABS: ALB/GLOB Ratio 1.3 RATIO (0.9-2.4); AST(SGOT) 19 U/L (<=31); Alanine Aminotransfer ALT/SGPT 10 U/L (<=34); Albumin, Serum 3.3 g/dL (3.4-4.8); Alkaline Phosphatase 99 U/L (35-104); Anion Gap 11 (5-15); BUN 17 mg/dL (4-19); BUN/Creat Ratio 14.7 RATIO (10-20); Calcium,Total 8.9 mg/dL (7.6-11.0); Carbon Dioxide 21.6 mmol/L (21.0-32.0); Chloride 102 mmol/L (98-108); Creatinine, Serum 1.18 mg/dL (0.70-1.20); EST Glomerular Filtration Rate 44 (>60); Estimated Creatinine Clearance 27.73 ml/min (50-250); Globulin 2.6 g/dL (2.2-4.2); Glucose 155 mg/dL (70-99); Potassium 4.1 mmol/L (3.3-5.1); Protein, Total 5.9 g/dL (5.9-8.4); Sodium Level 134 mmol/L (133-145); Total Bilirubin 0.36 mg/dL (0.00-1.30)
[2025-02-23] MEDS: Insulin Lispro 100 UNIT/ML INSULN.PEN SC (08:44)
[2025-02-23] MEDS: APIXABAN 5 MG TABLET PO ×2 (08:45→21:10)
[2025-02-23] MEDS: Allopurinol 100 MG Tablet PO ×2 (08:45→17:29)
[2025-02-23] MEDS: Cyanocobalamin 500 MCG Tablet 1000 MCG PO (08:46)
[2025-02-23] MEDS: Insulin Glargine-YFGN 100 UNIT/ML Pen 8 UNIT SC (08:59)
[2025-02-23] MEDS: Metoprolol(XL)Succ 25 MG Tablet PO (09:02)
[2025-02-23] MEDS: Senna/Docusate Sodium 1 Tablet 2 TABLET PO (09:04)
--- NOTE | 2025-02-23 11:12 | PCM.PROGNOTE ---
Subjective Subjective Afebrile VSS -heart rate has ranged from 66-81 since arrival in rehab. Blood pressure has ranged from 108/58 to 123/66. Maintaining appropriate oxygen saturation on RA-93 to 96%. Oral intake - FOOD good FLUIDS poor Has had 2 postvoid residuals and they were 274 and 385. Has been cath'd twice At bedtime blood sugar was 178 and fasting today is 161. She got 1 unit of Lispro for each of theses BS's Discussed with nursing - no problems that need addressed other than urine retention. Slept well last night. Reviewed the THERAPY notes Medication list reviewed. All lab drawn this morning was personally reviewed. The white blood cell count is 9.2. Hemoglobin is 11.1 with normochromic normocytic indices. Hemoglobin has been decreased since at least September 2020. Platelets are within normal limits. Sodium is 134 and the potassium is 4.1. The BUN is 17, down from 28 on 02/16/2025. Creatinine is stable at 1.18 with a GFR of 44 which is consistent with stage IIIb chronic renal failure. Magnesium is 2.2 and the phosphorus is within normal limits. LFTs are normal. Uric acid is pending. Gram stain and culture of the discharge from the eye is pending. Slept well last night. Denies pain. No CASIANO, lightheadedness, SOB, N/v/abd pain, dysuria and calf pain. Objective Data Objective Data Vital Signs: Vital Signs Temp Pulse Resp BP Pulse Ox O2 Del Method 97.5 F L 78 18 108/50 L 93 Room Air 02/23/25 06:00 02/23/25 09:02 02/23/25 06:00 02/23/25 09:02 02/23/25 06:00 02/23/25 06:00 Oxygen Delivery Method Room Air Weight: 149 lb 0.52 oz Body Mass Index (BMI) 29.0 Intake & Output: Intake and Output for Last 24 Hours 02/21/25 02/22/25 02/23/25 23:59 23:59 23:59 Intake Total 120 / 120 225 / 225 Output Total 200 / 200 725 / 725 Balance -80 / -80 -500 / -500 Lab / Micro Data 02/23/25 06:10 02/23/25 06:10 Labs: Laboratory Results - last 24 hr 02/22/25 20:49: POC Glucose 178 H 02/23/25 06:10: WBC 9.2, RBC 3.70 L, Hgb 11.1 L, Hct 32.8 L, MCV 88.6, MCH 30.0, MCHC 33.8, RDW Std Deviation 49.3 H, RDW Coeff of Luciano 15.3 H, Plt Count 292, MPV 10.0, Immature Gran % (Auto) 1.300 H, Neut % (Auto) 70.2 H, Lymph % (Auto) 17.2 L, Brooks % (Auto) 9.5, Eos % (Auto) 1.5, Baso % (Auto) 0.3, Absolute Neuts (auto) 6.5, Absolute Lymphs (auto) 1.58, Nucleated RBC % 0, Sodium 134, Potassium 4.1, Chloride 102, Carbon Dioxide 21.6, Anion Gap 11, BUN 17, Creatinine 1.18, Estim Creat Clear Calc 27.73 L, Est GFR (MDRD) Non-Af 44 L, BUN/Creatinine Ratio 14.7, Glucose 155 H, Calcium 8.9, Phosphorus 2.8, Magnesium 2.2, Total Bilirubin 0.36, AST 19, ALT 10, Alkaline Phosphatase 99, Total Protein 5.9, Albumin 3.3 L, Globulin 2.6, Albumin/Globulin Ratio 1.3 02/23/25 06:34: POC Glucose 161 H Physical Exam Const alert Constitutional Narrative: Pleasant. Very alert. Can not tell me the year or her age. Talkative and making good eye contact. Does not appear to be in any distress. Was able to use the bedside commode and was not incontinent of urine. General Appearance: cooperative, well kempt and well developed HEENT normocephalic Eyes PERRL, EOMs intact bilaterally and no scleral icterus General Eye: normal light reflex Neck supple and No nodes General: trachea midline Chest Chest: symmetrical chest wall rise Resp normal respiratory effort, normal air movement and clear to auscultation bilaterally Resp Narrative: not tachypneic. No cough Effort and Inspection: able to speak in complete sentences and symmetric chest movement Cardio regular rate and regular rhythm Peripheral Pulses: popliteal pulses present bilateral 3+, posterior tibial pulses present right 2+ and left diminished and dorsalis pedis pulses present right 3+ and left diminished GI normal to inspection, nondistended, normoactive bowel sounds, soft to palpation and non-tender GI Narrative: No guarding with palpation no CVA tenderness Narrative: Denies dysuria. No pain with palpation of the suprapubic area. Back/Spine no CVA tenderness Extremity no calf tenderness and no pedal edema Extremity Narrative: No clubbing and no cyanosis. Hands and feet are cool to the touch with intact sensation. Skin no jaundice Rashes: no rashes Hair: general thinning Neuro Neuro Narrative: She is alert and is oriented to person. She could not tell me the year or the month and could also not tell me her age. Tongue protrudes on the midline. She was able to follow simple commands. The palate elevates symmetrically. Trace right facial droop. Symmetrical shoulder shrug. No visual field cuts. Pupils are equal round reactive to light and accommodation and extraocular muscles are intact. She has good strength in the bilateral arms and bilateral legs. Good plantar flexion and dorsiflexion bilaterally. No ataxia in the arms or the legs. No extinction. Sensory perception is equal bilaterally. She has mild dysarthria and mild to moderate aphasia. I did not ambulate her. Psych cooperative, affect normal and denies hallucinations Appearance: grossly normal, appropriate and well kempt Attitude: calm and engaged Activity / Motor Behavior: appropriate eye contact Speech: other Speech is a little slurred due to the stroke. She also has mild to moderate aphasia. Mood & Affect: euthymic mood Assessment & Plan Assessment/Plan (1) Debility: (2) Acute ischemic left MCA stroke: (3) History of thrombolytic therapy: (4) New onset a-fib: (5) Expressive aphasia: (6) Essential hypertension: (7) Dyslipidemia: (8) Type 2 diabetes mellitus: QUALIFIERS: Diabetes mellitus complication status: with unspecified complications Diabetes mellitus irish moss bleacher insulin use: without irish moss bleacher use Qualified Code(s): E11.8 - Type 2 diabetes mellitus with unspecified complications (9) CKD (chronic kidney disease), stage III: QUALIFIERS: Chronic kidney disease stage 3 subtype: stage 3b (GFR 30-44) Qualified Code(s): N18.32 - Chronic kidney disease, stage 3b (10) Diabetic polyneuropathy: QUALIFIERS: Diabetes mellitus type: type 2 Qualified Code(s): E11.42 - Type 2 diabetes mellitus with diabetic polyneuropathy (11) Hyperuricemia: (12) RLS (restless legs syndrome): (13) Overweight: (14) Lytic lesion of bone on x-ray: PLAN: Left parietal bone. Can be evaluated as OP following DC from rehab. (15) Conjunctivitis: QUALIFIERS: Conjunctivitis type: unspecified Laterality: bilateral Qualified Code(s): H10.9 - Unspecified conjunctivitis (16) Urine retention: (17) Normochromic normocytic anemia: PLAN: Plan 1. Continue therapy 2. Add carbohydrate consistent diet to the current diet order 3. Discontinue lispro and continue glargine at at bedtime. If blood sugars become uncontrolled consider adding Amaryl 1 mg daily in the a.m. 4. Check a UA, straight cath because of urine retention. Also get a KUB to assess stool burden. 5. Start gentamicin ophthalmic drops empirically for bilateral conjunctivitis and await the results of the culture. 6. Check a SPE for possible myeloma in a pt with chronic N.N anemia and a lytic lesion in the L parietal bone. Charges/Coding Visit Charges Inpatient E&M: 71542 Subs Hosp L1
[2025-02-23 11:30] LABS: Uric Acid 4.4 mg/dL (2.6-6.0)
[2025-02-23 11:49] LABS: Bedside Glucose 180 mg/dL (74-106)
--- NOTE | 2025-02-23 12:10 | RAD_ITS ---
PROCEDURE: ABDOMEN SINGLE VIEW 02/23/2025 REASON FOR EXAM: CONSTIPATION/URINE RETENTION TECHNIQUE: Single view abdomen. COMPARISON: CT abdomen 10/10/2020 FINDINGS: Bowel gas: Bowel-gas pattern is within normal limits. Nonspecific. Calcifications: None identified. Bones: Lumbar spine scoliosis. Other: RAD/Abdomen Single View IMPRESSION: No acute process. Fecal prominence in keeping with constipation. [facility]
[2025-02-23 12:16] LABS: Mucous, Urine 0 SEEN /hpf (<or=2+); Red Blood Cells-Urine 0 SEEN /hpf (0-5); Squamous Epithelial Cells - UA 0 SEEN /hpf (5-10)
[2025-02-23 12:22] LABS: Color, Urine Yellow (Yellow); Glucose, Dipstick Normal (Normal); Ketone-Dipstick Negative (Negative); Leukocyte Esterase-Dipstick 100 /ul (Negative); Nitrite-Dipstick Positive (Negative); Occult Blood-Urine 10 /ul (Negative); Protein-Dipstick 15 mg/dl (Negative); Specific Gravity, Urine 1.015 (1.002-1.030); Urine Bilirubin Dipstick Negative (Negative); Urine Clarity Sl. Cloudy (Clear); Urine Urobilinogen Normal (Normal)
[2025-02-23 12:35] LABS: Bacteria 4+ /hpf (None Seen); White Blood Cells 10-25 SEEN /hpf (0-5)
[2025-02-23] MEDS: Cefadroxil 500 MG CAPSULE 1000 MG PO (14:48)
[2025-02-23] MEDS: Gentamicin Sulfate 1 OPTH.BTL 1 DRP EACH EYE ×3 (14:53→21:09)
[2025-02-23] MEDS: Magnesium Hydroxide 30 ML UDC PO (15:05)
[2025-02-23 17:52] LABS: Bedside Glucose 280 mg/dL (74-106)
[2025-02-23] MEDS: Insulin Lispro 100 UNIT/ML INSULN.PEN 6 UNIT SC (18:49)
[2025-02-23] MEDS: Pramipexole Di-HCl 0.25 MG Tablet PO (21:10)
[2025-02-23] MEDS: Atorvastatin Calcium 40 MG Tablet PO (21:10)
[2025-02-23] MEDS: Cefadroxil 500 MG CAPSULE PO (21:10)
[2025-02-23] MEDS: Gabapentin 300 MG Capsule PO (21:14)
[2025-02-23 21:37] LABS: Bedside Glucose 146 mg/dL (74-106)
[2025-02-24] MEDS: Gentamicin Sulfate 1 OPTH.BTL 1 DRP EACH EYE ×6 (01:13→21:33)
[2025-02-24 06:00] VITALS: BP 107/60; PULSE 99; RESP 18; TEMP 36.6; O2SAT 93
[2025-02-24 06:49] LABS: Bedside Glucose 170 mg/dL (74-106)
[2025-02-24 10:35] VITALS: BP 104/68; PULSE 76
[2025-02-24] MEDS: Metoprolol(XL)Succ 25 MG Tablet PO (10:35)
[2025-02-24] MEDS: Cefadroxil 500 MG CAPSULE PO ×2 (10:36→21:32)
[2025-02-24] MEDS: Cyanocobalamin 500 MCG Tablet 1000 MCG PO (10:36)
[2025-02-24] MEDS: APIXABAN 5 MG TABLET PO ×2 (10:36→21:32)
[2025-02-24] MEDS: Allopurinol 100 MG Tablet PO ×2 (10:36→17:43)
[2025-02-24] MEDS: Senna/Docusate Sodium 1 Tablet 2 TABLET PO (10:41)
[2025-02-24] MEDS: Insulin Glargine-YFGN 100 UNIT/ML Pen 8 UNIT SC (11:10)
[2025-02-24 11:27] LABS: Bedside Glucose 209 mg/dL (74-106)
[2025-02-24 14:00] VITALS: BP 111/57; PULSE 82
[2025-02-24 17:00] VITALS: BMI 29.0
[2025-02-24 17:02] LABS: Bedside Glucose 180 mg/dL (74-106)
[2025-02-24 18:00] VITALS: BP 102/56; PULSE 80; RESP 16; TEMP 36.5; O2SAT 93
[2025-02-24 21:05] VITALS: BP 125/59; PULSE 76; RESP 16; TEMP 36.7; O2SAT 99
[2025-02-24] MEDS: Atorvastatin Calcium 40 MG Tablet PO (21:34)
[2025-02-24] MEDS: Menthol/Lanolin/Calamine/Znox 113 GM Tube 1 APPLIC TOPICAL (21:34)
[2025-02-24] MEDS: Pramipexole Di-HCl 0.25 MG Tablet PO (21:34)
[2025-02-24] MEDS: Nystatin Powder 15gm Bottle 1 APPLIC TOPICAL (21:35)
[2025-02-24] MEDS: Gabapentin 300 MG Capsule PO (21:36)
[2025-02-24 22:00] VITALS: O2SAT 99
[2025-02-24 22:35] LABS: Bedside Glucose 211 mg/dL (74-106)
[2025-02-25] MEDS: Gentamicin Sulfate 1 OPTH.BTL 1 DRP EACH EYE ×6 (01:37→22:19)
[2025-02-25 04:47] VITALS: BMI 29.0
[2025-02-25] MEDS: Menthol/Lanolin/Calamine/Znox 113 GM Tube 1 APPLIC TOPICAL ×2 (05:38→22:21)
[2025-02-25] MEDS: Nystatin Powder 15gm Bottle 1 APPLIC TOPICAL ×2 (05:39→22:25)
[2025-02-25 06:11] VITALS: BP 114/59; PULSE 81; RESP 16; TEMP 36.9; O2SAT 92
[2025-02-25 07:02] LABS: Bedside Glucose 188 mg/dL (74-106)
[2025-02-25] MEDS: Cefadroxil 500 MG CAPSULE PO ×2 (08:18→22:19)
[2025-02-25] MEDS: Allopurinol 100 MG Tablet PO ×2 (08:19→17:09)
[2025-02-25] MEDS: APIXABAN 5 MG TABLET PO ×2 (08:19→22:19)
[2025-02-25 08:20] VITALS: PULSE 81
[2025-02-25] MEDS: Cyanocobalamin 500 MCG Tablet 1000 MCG PO (08:20)
[2025-02-25] MEDS: Senna/Docusate Sodium 1 Tablet 2 TABLET PO ×2 (08:20→22:19)
[2025-02-25] MEDS: Metoprolol(XL)Succ 25 MG Tablet PO (08:20)
--- NOTE | 2025-02-25 09:17 | PCM.PROGNOTE ---
Subjective Subjective Afebrile VSS -blood pressure is within goal. Heart rate is within normal limits. Maintaining appropriate oxygen saturation on - to 99% Oral intake - FOOD good until this morning. Only ate 25 to 49% of her breakfast today (she did not find it appetizing). FLUIDS fair The blood sugar record was reviewed. Discussed with nursing - Loose stool per nights........she had not had a BM in 1 week at the time of admission to rehab. she received stool softeners and laxatives on Tuesday. 2 BM's reported for Tuesday and only 1 BM recorded yesterday......all large and liquid. KUB showed fecal Prominence per radiologist. Reviewed the THERAPY notes Medication list reviewed. Catheter was inserted for urine retention. UA consistent with UTI. Started on Keflex. Urine culture is positive for Klebsiella pneumonia, greater than 100,000 colonies per high-power field. Resistant to ampicillin but sensitive to ampicillin/sulbactam. Sensitive to ceftriaxone and Fluoroquinolones. ESBL negative. Culture of the discharge from the eyes still pending. She was started on gentamicin drops. Serum protein electrophoresis is pending. Tells me she did not sleep well last night but, has been sleeping well up until last night. Had a lot of company yesterday. Denies ligheheadedness, CP, SOB, cough, N/V/abd pain, suprapubic pain. Not feeling bloated. No calf pain. Objective Data Objective Data Vital Signs: Vital Signs Temp Pulse Resp BP Pulse Ox O2 Del Method 98.4 F 81 16 114/59 L 92 Room Air 02/25/25 06:11 02/25/25 08:20 02/25/25 06:11 02/25/25 06:11 02/25/25 06:11 02/25/25 08:27 Oxygen Delivery Method Room Air Weight: 149 lb 0.52 oz Body Mass Index (BMI) 29.0 Intake & Output: Intake and Output for Last 24 Hours 02/23/25 02/24/25 02/25/25 23:59 23:59 23:59 Intake Total 1625 / 1625 1070 / 1070 260 / 260 Output Total 1475 / 1875 1450 / 1450 450 / 450 Balance 150 / -250 -380 / -380 -190 / -190 Lab / Micro Data 02/23/25 06:10 02/23/25 06:10 Labs: Laboratory Results - last 24 hr 02/24/25 11:08: POC Glucose 209 H 02/24/25 16:42: POC Glucose 180 H 02/24/25 21:49: POC Glucose 211 H 02/25/25 06:38: POC Glucose 188 H Micro: Microbiology 02/23/25 12:00 Urine Catheter - Catheter Urine Culture - Final Klebsiella pneumoniae sp pneum Physical Exam Const alert General Appearance: cooperative Eyes Eyes Narrative: Less swelling of the lid margins, no discharge observed, redness/injection improving. Resp normal respiratory effort, normal air movement and clear to auscultation bilaterally Resp Narrative: not tachypneic. No cough Effort and Inspection: able to speak in complete sentences Cardio regular rate and regular rhythm GI normal to inspection, nondistended, normoactive bowel sounds, soft to palpation and non-tender GI Narrative: No guarding with palpation no CVA tenderness Narrative: Denies dysuria. No pain with palpation of the suprapubic area. Extremity no calf tenderness and no pedal edema Psych cooperative and affect normal Appearance: appropriate Attitude: calm and engaged Activity / Motor Behavior: appropriate eye contact Assessment & Plan Assessment/Plan (1) Debility: (2) Acute ischemic left MCA stroke: (3) History of thrombolytic therapy: (4) New onset a-fib: (5) Expressive aphasia: (6) Essential hypertension: (7) Dyslipidemia: (8) Type 2 diabetes mellitus: QUALIFIERS: Diabetes mellitus complication status: with unspecified complications Diabetes mellitus care home insulin use: without oil heaterman use Qualified Code(s): E11.8 - Type 2 diabetes mellitus with unspecified complications (9) CKD (chronic kidney disease), stage III: QUALIFIERS: Chronic kidney disease stage 3 subtype: stage 3b (GFR 30-44) Qualified Code(s): N18.32 - Chronic kidney disease, stage 3b (10) Diabetic polyneuropathy: QUALIFIERS: Diabetes mellitus type: type 2 Qualified Code(s): E11.42 - Type 2 diabetes mellitus with diabetic polyneuropathy (11) Hyperuricemia: PLAN: Denies gout. she may not need allopurinol since she is no longer taking a diuretic. (12) RLS (restless legs syndrome): (13) Overweight: (14) Lytic lesion of bone on x-ray: (15) Conjunctivitis: QUALIFIERS: Conjunctivitis type: unspecified Laterality: bilateral Qualified Code(s): H10.9 - Unspecified conjunctivitis (16) Urine retention: (17) Normochromic normocytic anemia: PLAN: Plan 1. Continue therapy 2. Diet is somewhat erratic. Will add a sliding insulin scale to the current drug regimen and continue 8 units of Lantus every morning. Continue to monitor AC and at bedtime blood sugars. 3. Continue gentamicin eyedrops 4. Continue Keflex for a total of 7 days 5. Voiding trial in another 24 to 48 hours. Urine retention may be related to UTI +/- constipation and both are being treated. 6. will be moving in with her dtr Gabriela at [place] from rehab. 7. Await the results of the eye culture. 8. Hold Allopurinol and recheck the UA in 1-2 weeks. Charges/Coding Visit Charges Inpatient E&M: 42548 [facility] Hosp L1
[2025-02-25] MEDS: Insulin Glargine-YFGN 100 UNIT/ML Pen 8 UNIT SC (09:28)
[2025-02-25 09:31] VITALS: BP 104/50; PULSE 90; O2SAT 96
[2025-02-25 10:56] VITALS: BMI 29.0
[2025-02-25] MEDS: Insulin Lispro 100 UNIT/ML INSULN.PEN SC ×3 (11:10→22:20)
[2025-02-25 11:43] LABS: Bedside Glucose 173 mg/dL (74-106)
[2025-02-25 14:00] VITALS: BP 96/52; PULSE 91; RESP 16; TEMP 36.9; O2SAT 97
[2025-02-25 16:08] LABS: PROEL- Albumin 2.8 g/dL (2.9-4.4); PROEL- Alpha-1 Globulin 0.4 g/dL (0.0-0.4); PROEL- Beta Globulin 0.9 g/dL (0.7-1.3); PROEL- Gamma Globulin 0.6 g/dL (0.4-1.8); PROEL- Globulin, Total 2.8 g/dL (2.2-3.9); PROEL- TOTAL PROTEIN 5.6 g/dL (6.0-8.5); PROEL-M-Spike 0.1 g/dL (Not Observed)
[2025-02-25 17:12] LABS: Bedside Glucose 255 mg/dL (74-106)
[2025-02-25 18:00] VITALS: BP 112/63; PULSE 94; RESP 16; TEMP 37.1; O2SAT 96
[2025-02-25 22:00] VITALS: BP 110/56; PULSE 85; RESP 18
[2025-02-25] MEDS: Atorvastatin Calcium 40 MG Tablet PO (22:19)
[2025-02-25] MEDS: Pramipexole Di-HCl 0.25 MG Tablet PO (22:19)
[2025-02-25] MEDS: Gabapentin 300 MG Capsule PO (22:19)
[2025-02-25 22:40] LABS: Bedside Glucose 219 mg/dL (74-106)
[2025-02-26] MEDS: Gentamicin Sulfate 1 OPTH.BTL 1 DRP EACH EYE ×4 (02:27→14:46)
[2025-02-26 06:00] VITALS: BP 139/70; PULSE 96; RESP 16; TEMP 36.6; O2SAT 93
[2025-02-26] MEDS: Nystatin Powder 15gm Bottle 1 APPLIC TOPICAL ×2 (06:19→21:54)
[2025-02-26] MEDS: Menthol/Lanolin/Calamine/Znox 113 GM Tube 1 APPLIC TOPICAL ×2 (06:20→21:55)
[2025-02-26 06:40] VITALS: O2SAT 94
[2025-02-26 06:46] LABS: Bedside Glucose 207 mg/dL (74-106)
[2025-02-26 07:46] VITALS: PULSE 96
[2025-02-26] MEDS: Cyanocobalamin 500 MCG Tablet 1000 MCG PO (07:46)
[2025-02-26] MEDS: Metoprolol(XL)Succ 25 MG Tablet PO (07:46)
[2025-02-26] MEDS: Allopurinol 100 MG Tablet PO (07:47)
[2025-02-26] MEDS: Senna/Docusate Sodium 1 Tablet 2 TABLET PO ×2 (07:47→21:52)
[2025-02-26] MEDS: APIXABAN 5 MG TABLET PO ×2 (07:47→21:52)
[2025-02-26] MEDS: Insulin Lispro 100 UNIT/ML INSULN.PEN SC ×4 (07:47→21:52)
[2025-02-26] MEDS: Insulin Glargine-YFGN 100 UNIT/ML Pen 8 UNIT SC (07:47)
[2025-02-26] MEDS: Cefadroxil 500 MG CAPSULE PO ×2 (07:47→21:52)
--- NOTE | 2025-02-26 10:20 | PCM.PROGNOTE ---
Subjective Subjective Afebrile VSS -blood pressure over the past 24 hours has ranged from 96/52 to 139/70 this morning. Her only antihypertensive is metoprolol XL 25 mg daily. Heart rate has ranged from 85-96 over the past 24 hours. Orthostatics today are negative. Maintaining appropriate oxygen saturation on RA Oral intake - FOOD good FLUIDS poor per nursing documentation from yesterday. Discussed with nursing - no problems that need addressed Reviewed the THERAPY notes Medication list reviewed. Serum protein electrophoresis showed a single M spike in the gamma region, possibly indicative of multiple myeloma. Denies pain, SOB, palpitations, N/V, calf pain. doing very well with therapy. Speech is more fluent than at admission. Objective Data Objective Data Vital Signs: Vital Signs Temp Pulse Resp BP Pulse Ox O2 Del Method 97.8 F 96 16 139/70 H 94 Room Air 02/26/25 06:00 02/26/25 07:46 02/26/25 06:00 02/26/25 06:00 02/26/25 06:40 02/26/25 06:40 Oxygen Delivery Method Room Air Weight: 149 lb 0.52 oz Body Mass Index (BMI) 29.0 Intake & Output: Intake and Output for Last 24 Hours 02/24/25 02/25/25 02/26/25 23:59 23:59 23:59 Intake Total 1070 / 1070 560 / 560 240 / 240 Output Total 1450 / 1450 675 / 675 700 / 700 Balance -380 / -380 -115 / -115 -460 / -460 Lab / Micro Data 02/26/25 11:35 02/26/25 11:35 Labs: Laboratory Results - last 24 hr 02/23/25 06:10: Total Protein (PEP) 5.6 L, Albumin (PEP) 2.8 L, Globulin (PEP) 2.8, Albumin/Globulin (PEP) 1.0, Diatw-5-Vtnobeseq 0.4, Zthea-9-Cwgwfsxux 1.0, Beta Globulins 0.9, Gamma Globulins 0.6, M-Bi 0.1 H, PEP Note Comment, PEP Interpretation Comment 02/25/25 11:08: POC Glucose 173 H 02/25/25 16:50: POC Glucose 255 H 02/25/25 22:02: POC Glucose 219 H 02/26/25 06:27: POC Glucose 207 H Micro: Microbiology 02/22/25 21:42 Biopsy - Eye Gram Stain - Final 02/22/25 21:42 Biopsy - Eye Eye Culture - Final No growth in 48 hours. 02/22/25 21:42 Biopsy - Eye Anaerobic Culture - Preliminary No growth in 48 hours. 02/23/25 12:00 Urine Catheter - Catheter Urine Culture - Final Klebsiella pneumoniae sp pneum Physical Exam Const alert Constitutional Narrative: speech is more fluent.......not searching for words as much General Appearance: cooperative HEENT Mouth: dry mucous membranes Eyes Eyes Narrative: Less swelling of the lid margins, no discharge observed, redness/injection improving. Denies itching and pain today. Neck supple Resp normal respiratory effort, normal air movement and clear to auscultation bilaterally Resp Narrative: not tachypneic. No cough Effort and Inspection: able to speak in complete sentences Cardio regular rate and regular rhythm Cardio Narrative: No ectopy GI normal to inspection, nondistended, normoactive bowel sounds, soft to palpation and non-tender GI Narrative: No guarding with palpation Narrative: Denies dysuria. No pain with palpation of the suprapubic area. Extremity no calf tenderness and no pedal edema Skin Rashes: no rashes Psych cooperative and affect normal Psych Narrative: Pleasant and social, interacting with staff well. Appearance: appropriate Attitude: calm and engaged Activity / Motor Behavior: appropriate eye contact Mood & Affect: Negative for depressed, anxious or flat affect Thought Content: No suicidality and No hallucination(s) Assessment & Plan Assessment/Plan (1) Debility: (2) Acute ischemic left MCA stroke: (3) History of thrombolytic therapy: (4) New onset a-fib: (5) Expressive aphasia: (6) Essential hypertension: (7) Dyslipidemia: (8) Type 2 diabetes mellitus: QUALIFIERS: Diabetes mellitus complication status: with unspecified complications Diabetes mellitus ad terminal makeup operator insulin use: without senior living use Qualified Code(s): E11.8 - Type 2 diabetes mellitus with unspecified complications (9) CKD (chronic kidney disease), stage III: QUALIFIERS: Chronic kidney disease stage 3 subtype: stage 3b (GFR 30-44) Qualified Code(s): N18.32 - Chronic kidney disease, stage 3b (10) Diabetic polyneuropathy: QUALIFIERS: Diabetes mellitus type: type 2 Qualified Code(s): E11.42 - Type 2 diabetes mellitus with diabetic polyneuropathy (11) Hyperuricemia: (12) RLS (restless legs syndrome): (13) Overweight: (14) Lytic lesion of bone on x-ray: (15) Conjunctivitis: QUALIFIERS: Conjunctivitis type: unspecified Laterality: bilateral Qualified Code(s): H10.9 - Unspecified conjunctivitis (16) Urine retention: (17) Normochromic normocytic anemia: PLAN: Plan 1. Continue therapy 2. Increase glargine to 14 units every morning. She already received 8 units today so we will give an additional 6 units now. 3. Start Amaryl 1 mg p.o. daily. Continue to monitor blood sugars AC and at bedtime with sliding scale insulin coverage. Goal is all BS's less than 200 with no hypoglycemia 4. She has a monoclonal gammopathy. Will check serum protein immunofixation and urine for Bence-Billy proteins. Possible MM. She is not hypercalcemic. Calcium corrected for hypoalbuminemia is 9.86. Maintain Romo until the 24H urine collection is completed and then do a voiding trial. 5. Check orthostatics today and also a BMP and HH 6. Encouraqe increased fluid intake. 7. hold Allopurinol since she is no longer on a diuretic and she has no hx of gout. Recheck a uric acid in 2-3 weeks.......sooner if she develops gout. No hx of nephrolithiasis. Charges/Coding Visit Charges Inpatient E&M: 00125 Subs Hosp L1
[2025-02-26] MEDS: Insulin Glargine-YFGN 100 UNIT/ML Pen 6 UNIT SC (11:13)
[2025-02-26 11:33] LABS: Bacteria 0 SEEN /hpf (None Seen); Mucous, Urine 0 SEEN /hpf (<or=2+); Squamous Epithelial Cells - UA 0 SEEN /hpf (5-10); White Blood Cells 0 SEEN /hpf (0-5)
[2025-02-26 11:37] LABS: Color, Urine Straw (Yellow); Glucose, Dipstick 250 mg/dl (Normal); Ketone-Dipstick Negative (Negative); Leukocyte Esterase-Dipstick Negative /ul (Negative); Nitrite-Dipstick Negative (Negative); Occult Blood-Urine 25 /ul (Negative); Protein-Dipstick 30 mg/dl (Negative); Urine Bilirubin Dipstick Negative (Negative); Urine Clarity Sl. Cloudy (Clear); Urine Urobilinogen Normal (Normal); Urine pH 6.5 (5.0 - 8.0)
[2025-02-26 11:43] LABS: Red Blood Cells-Urine 0-5 SEEN /hpf (0-5)
[2025-02-26 11:44] LABS: Hematocrit 35.1 % (37-47); Hemoglobin 11.7 g/dL (12.0-15.0)
[2025-02-26 11:49] LABS: Bedside Glucose 297 mg/dL (74-106)
[2025-02-26] MEDS: Glimepiride 1 MG Tablet PO (11:58)
[2025-02-26 12:30] LABS: Anion Gap 13 (5-15); BUN 19 mg/dL (4-19); BUN/Creat Ratio 16.8 RATIO (10-20); Calcium,Total 9.4 mg/dL (7.6-11.0); Carbon Dioxide 23.1 mmol/L (21.0-32.0); Chloride 96 mmol/L (98-108); Creatinine, Serum 1.11 mg/dL (0.70-1.20); EST Glomerular Filtration Rate 48 (>60); Estimated Creatinine Clearance 29.47 ml/min (50-250); Glucose 283 mg/dL (70-99); Sodium Level 132 mmol/L (133-145)
[2025-02-26 13:26] VITALS: BP 128/73; BP 136/71; BP 140/74; PULSE 108; PULSE 85
[2025-02-26 15:30] VITALS: BMI 29.0
--- NOTE | 2025-02-26 15:34 | CHAPLAIN ---
Type of Pastoral Visit _x__ Initial Visit ___ Follow-up Visit ___ On-call Visit ___ General Patient Visit ___ Spiritual Assessment ___ Family Conference ___ Bereavement ___ Rapid Response ___ Code Blue ___ Other (describe below) Pastoral Care Referral From _x__ Patient ___ Family ___ Nurse ___ Physician ___ Survey Research [employer] Director ___ Mechanic Welder ___ Other (describe below) Sacrament/Intervention _x__ Active listening ___ Anointing ___ Hindu ___ Bereavement ___ Communion _x__ Gail exploration ___ _x__ Life review _x_ Prayer ___ Reconciliation ___ Sacrament of Sick _x__ Supportive presence ___ Wedding ___ Other (describe below) Pastoral Comments patient is welcoming of this tin assorter and begins by saying that she is waiting for her daughter to come so that she can say goodbye; when asked if daughter was from out of town the patient stated, Oh no, she lives close by but she is coming to play the [employer] and I want to say goodbye to her; pt goes on to explain that the daughter will be playing the harp for her that she has planned out; pt also mentions two sons and hopes that they will all get along together when she is gone; pt is asked about her being in the hospital and what her understanding of her condition; pt says that she has almost a couple of times, and not knowing if God will spare her one more time or not, that she is ready if not pt talks about having a good life and good family; pt is focused on her upcoming as if she knows it will be soon; pt welcomes presence and prayer; this tin assorter tried to offer comfort the patient and direct the conversation to gain more understanding of how the patient is thinking and feeling;
[2025-02-26 17:46] LABS: Bedside Glucose 169 mg/dL (74-106)
[2025-02-26 18:00] VITALS: BP 126/58; PULSE 89; RESP 17; TEMP 36.6; O2SAT 96
[2025-02-26] MEDS: Atorvastatin Calcium 40 MG Tablet PO (21:52)
[2025-02-26] MEDS: Pramipexole Di-HCl 0.25 MG Tablet PO (21:52)
[2025-02-26] MEDS: Gabapentin 300 MG Capsule PO (21:52)
[2025-02-26 22:00] VITALS: O2SAT 98
[2025-02-26 22:09] LABS: Bedside Glucose 195 mg/dL (74-106)
[2025-02-27] MEDS: Nystatin Powder 15gm Bottle 1 APPLIC TOPICAL ×2 (05:51→22:04)
[2025-02-27] MEDS: Menthol/Lanolin/Calamine/Znox 113 GM Tube 1 APPLIC TOPICAL ×2 (05:51→22:02)
[2025-02-27 05:54] VITALS: BP 102/61; PULSE 76; RESP 17; TEMP 36.9; O2SAT 93; BMI 28.3
[2025-02-27 06:39] LABS: Bedside Glucose 178 mg/dL (74-106)
[2025-02-27 07:56] VITALS: PULSE 76
[2025-02-27] MEDS: Metoprolol(XL)Succ 25 MG Tablet PO (07:56)
[2025-02-27] MEDS: Glimepiride 1 MG Tablet PO (07:56)
[2025-02-27] MEDS: Cefadroxil 500 MG CAPSULE PO ×2 (07:57→22:05)
[2025-02-27] MEDS: Senna/Docusate Sodium 1 Tablet 2 TABLET PO ×2 (07:57→22:03)
[2025-02-27] MEDS: Insulin Glargine-YFGN 100 UNIT/ML Pen 14 UNIT SC (07:57)
[2025-02-27] MEDS: Cyanocobalamin 500 MCG Tablet 1000 MCG PO (07:57)
[2025-02-27] MEDS: APIXABAN 5 MG TABLET PO ×2 (07:57→22:05)
[2025-02-27] MEDS: Insulin Lispro 100 UNIT/ML INSULN.PEN SC ×4 (07:58→22:03)
[2025-02-27 11:57] LABS: Bedside Glucose 228 mg/dL (74-106)
[2025-02-27 13:56] VITALS: BMI 28.3
[2025-02-27 17:17] LABS: Bedside Glucose 196 mg/dL (74-106)
[2025-02-27 17:40] VITALS: BP 106/58; PULSE 95; RESP 14; TEMP 37.2; O2SAT 99
[2025-02-27 20:59] LABS: Bedside Glucose 170 mg/dL (74-106)
[2025-02-27] MEDS: Gabapentin 300 MG Capsule PO (22:04)
[2025-02-27] MEDS: Pramipexole Di-HCl 0.25 MG Tablet PO (22:04)
[2025-02-27] MEDS: Atorvastatin Calcium 40 MG Tablet PO (22:04)
[2025-02-28 05:00] VITALS: BMI 28.3
[2025-02-28] MEDS: Nystatin Powder 15gm Bottle 1 APPLIC TOPICAL ×2 (05:23→21:09)
[2025-02-28] MEDS: Menthol/Lanolin/Calamine/Znox 113 GM Tube 1 APPLIC TOPICAL ×2 (05:23→20:46)
[2025-02-28 06:00] VITALS: BP 105/50; PULSE 90; RESP 16; TEMP 36.4; O2SAT 96
[2025-02-28 06:57] VITALS: O2SAT 96
[2025-02-28 07:21] LABS: Bedside Glucose 149 mg/dL (74-106)
[2025-02-28 08:18] VITALS: PULSE 90
[2025-02-28] MEDS: Metoprolol(XL)Succ 25 MG Tablet PO (08:18)
[2025-02-28] MEDS: Senna/Docusate Sodium 1 Tablet 2 TABLET PO (08:18)
[2025-02-28] MEDS: APIXABAN 5 MG TABLET PO ×2 (08:18→21:09)
[2025-02-28] MEDS: Glimepiride 1 MG Tablet PO (08:19)
[2025-02-28] MEDS: Cyanocobalamin 500 MCG Tablet 1000 MCG PO (08:19)
[2025-02-28] MEDS: Cefadroxil 500 MG CAPSULE PO ×2 (08:19→21:09)
[2025-02-28] MEDS: Insulin Glargine-YFGN 100 UNIT/ML Pen 14 UNIT SC (08:19)
[2025-02-28 11:22] LABS: Bedside Glucose 222 mg/dL (74-106)
--- NOTE | 2025-02-28 11:38 | PCM.PROGNOTE ---
Subjective Subjective Debbi was seen on team rounds today. Her daughter Gabriela and son-in-law Patrick were present in the room for rounds. All questions were answered to their satisfaction. Afebrile VSS -blood pressure over the past 48 hours has ranged from 102/61 to 126/58. Heart rate has ranged from 76-90. Maintaining appropriate oxygen saturation on RA Oral intake - FOOD fair to good FLUIDS improving The blood sugar record was reviewed. Discussed with nursing - no problems that need addressed. 24-hour urine collection for urine Bence-Billy proteins and immunofixation has completed. Reviewed the THERAPY notes Medication list reviewed. The Romo was removed this AM. PVR [id number] and straight cath was done with minimal return.......bladder scanned for >300 after the straight cath. she has had a hysterectomy in the past. Bladder feels distended on bimanual exam? Objective Data Objective Data Vital Signs: Vital Signs Temp Pulse Resp BP Pulse Ox O2 Del Method 97.5 F L 90 16 105/50 L 96 Room Air 02/28/25 06:00 02/28/25 08:18 02/28/25 06:00 02/28/25 06:00 02/28/25 06:57 02/28/25 06:57 Oxygen Delivery Method Room Air Weight: 145 lb 4.554 oz Body Mass Index (BMI) 28.3 Intake & Output: Intake and Output for Last 24 Hours 02/26/25 02/27/25 02/28/25 23:59 23:59 23:59 Intake Total 1540 / 1540 2340 / 2340 740 / 740 Output Total 2300 / 2300 1300 / 1300 375 / 375 Balance -760 / -760 1040 / 1040 365 / 365 Lab / Micro Data 02/26/25 11:35 02/26/25 11:35 Labs: Laboratory Results - last 24 hr 02/27/25 11:39: POC Glucose 228 H 02/27/25 16:33: POC Glucose 196 H 02/27/25 20:41: POC Glucose 170 H 02/28/25 07:02: POC Glucose 149 H 02/28/25 11:05: POC Glucose 222 H Micro: Microbiology 02/22/25 21:42 Biopsy - Eye Gram Stain - Final 02/22/25 21:42 Biopsy - Eye Eye Culture - Final No growth in 48 hours. 02/22/25 21:42 Biopsy - Eye Anaerobic Culture - Final No growth in 5 days. 02/26/25 11:20 Urine Catheter - Romo Urine Culture - Final Culture exhibits no growth. 02/23/25 12:00 Urine Catheter - Catheter Urine Culture - Final Klebsiella pneumoniae sp pneum Physical Exam Const alert General Appearance: cooperative Resp normal respiratory effort, normal air movement and clear to auscultation bilaterally Resp Narrative: not tachypneic. No cough Effort and Inspection: able to speak in complete sentences Cardio regular rate and regular rhythm GI normal to inspection, nondistended, normoactive bowel sounds, soft to palpation and non-tender GI Narrative: No guarding with palpation no CVA tenderness Narrative: Denies dysuria. No pain with palpation of the suprapubic area. Extremity no calf tenderness and no pedal edema Assessment & Plan Assessment/Plan (1) Debility: (2) Acute ischemic left MCA stroke: (3) History of thrombolytic therapy: (4) New onset a-fib: (5) Expressive aphasia: (6) Essential hypertension: (7) Dyslipidemia: (8) Type 2 diabetes mellitus: QUALIFIERS: Diabetes mellitus complication status: with unspecified complications Diabetes mellitus senior living insulin use: without senior living use Qualified Code(s): E11.8 - Type 2 diabetes mellitus with unspecified complications (9) CKD (chronic kidney disease), stage III: QUALIFIERS: Chronic kidney disease stage 3 subtype: stage 3b (GFR 30-44) Qualified Code(s): N18.32 - Chronic kidney disease, stage 3b (10) Diabetic polyneuropathy: QUALIFIERS: Diabetes mellitus type: type 2 Qualified Code(s): E11.42 - Type 2 diabetes mellitus with diabetic polyneuropathy (11) Hyperuricemia: (12) RLS (restless legs syndrome): (13) Overweight: (14) Lytic lesion of bone on x-ray: (15) Conjunctivitis: QUALIFIERS: Conjunctivitis type: unspecified Laterality: bilateral Qualified Code(s): H10.9 - Unspecified conjunctivitis (16) Urine retention: (17) Normochromic normocytic anemia: PLAN: Plan 1. Continue therapy 2. Discontinue the Romo catheter in the AM for a voiding trial. 3. Recheck a BMP in the a.m. 4. Increase glargine to 18 units with breakfast and add lispro and add lispro 2 units scheduled daily with breakfast. Continue Amaryl 1 mg daily and sliding scale insulin. 5. Family will come in next Tuesday for shared care. Plan is for home with dtr/son-in-law at [place]. Charges/Coding Visit Charges Inpatient E&M: 04945 Subs Hosp L2
[2025-02-28] MEDS: Insulin Lispro 100 UNIT/ML INSULN.PEN SC (11:57)
[2025-02-28 12:47] VITALS: BMI 28.3
--- NOTE | 2025-02-28 12:49 | CASEMGMT ---
Social Work IDT met with patient, dtr and MATHIEU for Team meeting. Discussed patient's progress in PT/OT/ST/SN. Educated to [employer] insurance with [employer]D 03/07, updating every 7 days, and IDT is responsible for setting DC date. Discussed how pt fatigues very easily and walking long distances are challenging, along with afternoon therapy sessions. Pt has slowed her progress as the week progresses. Discussed completing 3 hrs of therapy a day may be too intense for patient, and she does not need to ambulate long distances at home. SW clarified DC plan and discussed having pt DC shortly. Pt does live with dtr and MATHIEU, and dtr works from home but MATHIEU is retired. Both are very involved, asked productive questions and can assist pt with any needs. Discussed home set up, safety measures for pt at home, and family denied any DME needs. Family prefers skilled HHC. SW to assist with that coordination. SW offered therapy training for family to ensure comfort with DC home. Scheduled for 03/06 at 1100. After that training, SW to follow up to set DC date. Will ReTeam next week. SW will continue to follow. Annabel Weaver [employer]OM FOUNDRY LABORER DROP FORGER HELPER
[2025-02-28 16:59] LABS: Bedside Glucose 95 mg/dL (74-106)
[2025-02-28 18:00] VITALS: BP 96/70; PULSE 89; RESP 16; TEMP 36.8; O2SAT 97
[2025-02-28] MEDS: Pramipexole Di-HCl 0.25 MG Tablet PO (21:09)
[2025-02-28] MEDS: Gabapentin 300 MG Capsule PO (21:09)
[2025-02-28] MEDS: Atorvastatin Calcium 40 MG Tablet PO (21:09)
[2025-02-28 22:11] LABS: Bedside Glucose 300 mg/dL (74-106)
[2025-03-01] MEDS: Nystatin Powder 15gm Bottle 1 APPLIC TOPICAL ×2 (05:17→22:51)
[2025-03-01] MEDS: Menthol/Lanolin/Calamine/Znox 113 GM Tube 1 APPLIC TOPICAL ×2 (05:17→22:32)
[2025-03-01 05:54] VITALS: BP 116/65; PULSE 111; RESP 18; TEMP 37.2; O2SAT 94
[2025-03-01 07:02] VITALS: O2SAT 95
[2025-03-01 07:04] LABS: Bedside Glucose 217 mg/dL (74-106)
[2025-03-01 07:50] VITALS: PULSE 111
[2025-03-01] MEDS: Metoprolol(XL)Succ 25 MG Tablet PO (07:50)
[2025-03-01] MEDS: Senna/Docusate Sodium 1 Tablet 2 TABLET PO ×2 (07:50→22:46)
[2025-03-01] MEDS: Cefadroxil 500 MG CAPSULE PO ×2 (07:51→22:33)
[2025-03-01] MEDS: Cyanocobalamin 500 MCG Tablet 1000 MCG PO (07:51)
[2025-03-01] MEDS: APIXABAN 5 MG TABLET PO ×2 (07:51→22:33)
[2025-03-01] MEDS: Glimepiride 1 MG Tablet PO ×2 (07:51→17:18)
[2025-03-01] MEDS: Insulin Lispro 100 UNIT/ML INSULN.PEN SC ×4 (07:51→22:48)
[2025-03-01] MEDS: Insulin Glargine-YFGN 100 UNIT/ML Pen 18 UNIT SC (07:52)
[2025-03-01 11:36] LABS: Bedside Glucose 208 mg/dL (74-106)
--- NOTE | 2025-03-01 11:43 | CT_ITS ---
PROCEDURE: ABDOMEN/PELVIS WITHOUT CONT 03/01/2025 REASON FOR EXAM: URINE RETENTION/PELVIC PAIN TECHNIQUE: Abdomen and pelvis CT without intravenous contrast. Noncontrast technique limits evaluation of the abdominal and pelvic viscera. Coronal and Sagittal reconstruction series were provided. One or more dose reduction techniques were used (e.g., Automated exposure control, adjustment of the mA and/or kV according to patient size, use of iterative reconstruction technique Dose report: CTDI L volume 9.03 mGy. DLP: 437.86 PATIENT PREPARATION: Per protocol ORAL CONTRAST TYPE: None. COMPARISON: Prior study dated October 10, 2020. FINDINGS: Lung bases: Mild dependent atelectasis. Minimal pericardial thickening. Liver: Normal size. No obvious mass. Gallbladder: Surgically absent. Spleen: Normal size. Pancreas: Diffuse fatty atrophy. Adrenals: Unremarkable Kidneys: No urolithiasis. No hydronephrosis. Bladder: Distended urinary bladder. Reproductive Organs: The right ovary measures 2.9 cm. Punctate calcification is seen within it. Small amount of air is seen along the anterior aspect of the uterus. Clinical correlation recommended. Bowel: Colonic diverticulosis without diverticulitis. Appendix: Unremarkable Lymph nodes: Unremarkable. Vasculature: The abdominal aorta and IVC contours are normal. Noncontrast technique limits evaluation. Peritoneum / Retroperitoneum: Unremarkable Bones: Degenerative changes of the spine. CT/Abdomen/Pelvis without Cont IMPRESSION: Distended urinary bladder. Pancreatic atrophy. Status post cholecystectomy. OVERALL FINAL ASSESSMENT: . Reading Location: [id number]
--- NOTE | 2025-03-01 11:47 | PN_ITS ---
Subjective Subjective Afebrile Appetite is good. Fluid intake is fair, better with encouragement to increase fluids. Having a bowel movement about every other day. Blood pressure over the past 24 hours has ranged from 96/72 116/65. Heart rate is increased at 111 today. Did not sleep well last night. Romo was discontinued this AM. Had some pelvic pain with straight cath today and with Bimanual exam. Poor return from straight cath......post cath residual was still > 300. She is still getting cefadroxil for treatment of acute cystitis. Denies feeling bloated or constipated. Urine is tristan in color. No hematuria. Feels sleepy today. Slept poorly last night.......was worried that she would not wake up in the AM. No CP, SOB, palpitations. Objective Data Objective Data Vital Signs: Vital Signs Temp Pulse Resp BP Pulse Ox O2 Del Method 99.0 F 111 H 18 116/65 94 Room Air 03/01/25 05:54 03/01/25 07:50 03/01/25 05:54 03/01/25 05:54 03/01/25 05:54 03/01/25 05:54 Oxygen Delivery Method Room Air Weight: 145 lb 4.554 oz Body Mass Index (BMI) 28.3 Intake & Output: Intake and Output for Last 24 Hours 02/27/25 02/28/25 03/01/25 23:59 23:59 23:59 Intake Total 2340 / 2340 1220 / 1220 240 / 240 Output Total 1300 / 1300 375 / 375 1100 / 1100 Balance 1040 / 1040 845 / 845 -860 / -860 Lab / Micro Data 02/26/25 11:35 02/26/25 11:35 Labs: Laboratory Results - last 24 hr 02/28/25 16:34: POC Glucose 95 02/28/25 21:53: POC Glucose 300 H 03/01/25 06:46: POC Glucose 217 H 03/01/25 11:15: POC Glucose 208 H Micro: Microbiology 02/22/25 21:42 Biopsy - Eye Gram Stain - Final 02/22/25 21:42 Biopsy - Eye Eye Culture - Final No growth in 48 hours. 02/22/25 21:42 Biopsy - Eye Anaerobic Culture - Final No growth in 5 days. 02/26/25 11:20 Urine Catheter - Romo Urine Culture - Final Culture exhibits no growth. 02/23/25 12:00 Urine Catheter - Catheter Urine Culture - Final Klebsiella pneumoniae sp pneum Physical Exam Const Constitutional Narrative: sleepy today. Pleasant and cooperative. NAD while sitting in the recliner. folwy was removed this AM. Resp normal respiratory effort and clear to auscultation bilaterally Effort and Inspection: Negative for tachypneic Cardio regular rhythm and no gallops Cardio Narrative: Tachycardic today. No ectopy. GI GI Narrative: Soft, normal BS's, ND. On bimanual exam the bladder feels distended or there is a mass that I am feeling. PVR after straight cath was still > 300. Has had a hysterectomy in the past for cervical CA. I suspect it is not actually the bladder that is being scanned. Extremity no calf tenderness General Extremity: Negative for edema Skin Rashes: no rashes Assessment & Plan Assessment/Plan (1) Debility: (2) Acute ischemic left MCA stroke: (3) History of thrombolytic therapy: (4) New onset a-fib: (5) Expressive aphasia: (6) Essential hypertension: (7) Dyslipidemia: (8) Type 2 diabetes mellitus: QUALIFIERS: Diabetes mellitus complication status: with unspecified complications Diabetes mellitus termite control servicer insulin use: without termite control servicer use Qualified Code(s): E11.8 - Type 2 diabetes mellitus with unspecified complications (9) CKD (chronic kidney disease), stage III: QUALIFIERS: Chronic kidney disease stage 3 subtype: stage 3b (GFR 30-44) Qualified Code(s): N18.32 - Chronic kidney disease, stage 3b (10) Diabetic polyneuropathy: QUALIFIERS: Diabetes mellitus type: type 2 Qualified Code(s): E 11.42 - Type 2 diabetes mellitus with diabetic polyneuropathy (11) Hyperuricemia: (12) RLS (restless legs syndrome): (13) Overweight: (14) Lytic lesion of bone on x-ray: (15) Conjunctivitis: QUALIFIERS: Conjunctivitis type: unspecified Laterality: b ilateral Qualified Code(s): H10.9 - Unspecified conjunctivitis (16) Urine retention: (17) Normochromic normocytic anemia: PLAN: Plan 1. Continue therapy 2. CT scan of the abd and pelvis today without contrast. Depending on the results may need to consult Dr. Garcia. 3. Start melatonin 3 mg at at bedtime to aid in sleep. 4. I suspect the HR is increased due to IV volume depletion......urine is tristan in color, the BP is low and the MM are dry.......she is not in AF and the resting HR is in the low 100's today. Pulse ox is 94 to 99% over the past 24 hours. She denies feeling short of breath at rest and she was able to do the NuStep today with therapy. Denies chest pain. She is on anticoagulation with Eliquis. Check a BMP now........may need IV fluids. Charges/Coding Visit Charges Inpatient E&M: 04294 Subs Hosp L2
[2025-03-01 13:46] LABS: Anion Gap 13 (5-15); BUN 17 mg/dL (4-19); BUN/Creat Ratio 15.7 RATIO (10-20); Calcium,Total 9.7 mg/dL (7.6-11.0); Carbon Dioxide 21.4 mmol/L (21.0-32.0); Chloride 96 mmol/L (98-108); Creatinine, Serum 1.06 mg/dL (0.70-1.20); EST Glomerular Filtration Rate 50 (>60); Estimated Creatinine Clearance 30.48 ml/min (50-250); Glucose 202 mg/dL (70-99); Potassium 3.5 mmol/L (3.3-5.1); Sodium Level 130 mmol/L (133-145)
--- NOTE | 2025-03-01 13:53 | CT_ITS ---
PROCEDURE: ABDOMEN/PELVIS W IV CONT ONLY 03/01/2025 REASON FOR EXAM: BLADDER DISTENTION VS LARGE CYST. TECHNIQUE: Abdomen and pelvis CT with intravenous contrast. Coronal and Sagittal reconstruction series were provided. PATIENT PREPARATION: Per protocol ORAL CONTRAST TYPE: None. CONTRAST: Isovue-300 VOLUME: 100 mL One or more dose reduction techniques were used (e.g., Automated exposure control, adjustment of the mA and/or kV according to patient size, use of iterative reconstruction technique. RADIATION DOSE SUMMARY: CTDlvol: 14.5 mGy DLP: 1523.77 mGycm COMPARISON: Prior study done earlier in the day. FINDINGS: A Romo catheter is seen within a decompressed urinary bladder. What was thought to be a distended urinary bladder on prior CT scan represents a 8.6 cm by 8.1 cm sister mass in the left adnexa. The remainder of the examination is unchanged. CT/Abdomen/Pelvis W IV Cont ONLY IMPRESSION: 8.6 cm 8.1 cm cystic mass in the left adnexa. A Romo catheter seen within the decompressed urinary bladder. Reading Location: [id number]
[2025-03-01 13:56] VITALS: BMI 28.3
[2025-03-01 15:08] LABS: Immunoglobulin A 140 mg/dL (64-422); Immunoglobulin G 622 mg/dL (586-1602); Immunoglobulin M 43 mg/dL (26-217)
[2025-03-01 15:47] LABS: Hematocrit 33.1 % (37-47); Hemoglobin 11.1 g/dL (12.0-15.0)
[2025-03-01 16:49] LABS: Bedside Glucose 147 mg/dL (74-106)
--- NOTE | 2025-03-01 17:02 | EX.PCM.CONOB ---
Assessment & Plan (1) Simple adnexal cyst less than 1 cm in diameter in postmenopausal patient: COMMENT: [address] appearing on CT- ultrasound needed to confirm. (2) Normochromic normocytic anemia: (3) Urine retention: (4) Conjunctivitis: QUALIFIERS: Conjunctivitis type: unspecified Laterality: bilateral Qualified Code(s): H10.9 - Unspecified conjunctivitis (5) Lytic lesion of bone on x-ray: COMMENT: Left parietal bone (6) Diabetic polyneuropathy: QUALIFIERS: Diabetes mellitus type: type 2 Qualified Code(s): E11.42 - Type 2 diabetes mellitus with diabetic polyneuropathy (7) CKD (chronic kidney disease), stage III: QUALIFIERS: Chronic kidney disease stage 3 subtype: stage 3b (GFR 30-44) Qualified Code(s): N18.32 - Chronic kidney disease, stage 3b (8) History of thrombolytic therapy: COMMENT: Entered into [email or web address] RAISE trial at [facility] on 02/17/25. (9) Hyperuricemia: (10) RLS (restless legs syndrome): (11) Overweight: (12) Debility: (13) Acute ischemic left MCA stroke: (14) Essential hypertension: (15) Dyslipidemia: (16) Type 2 diabetes mellitus: QUALIFIERS: Diabetes mellitus complication status: with unspecified complications Diabetes mellitus superintendent terminal insulin use: without superintendent terminal use Qualified Code(s): E11.8 - Type 2 diabetes mellitus with unspecified complications PLAN: Plan plan is to obtain a pelvic ultrasound. I am not sure that she will tolerate a transvaginal probe, therefore will order only a pelvic ultrasound to know more about the nature of the cyst. The most likely type of cyst is a serous cystadenoma at this size. She is not a good surgical candidate at this time and this does not appear cancerous on CT. The plan will most likely be observation only. HPI Consult Data Date of Consult: 03/01/25 HPI Narrative HPI Narrative: CHARLETTE FARMER, is a 89 F who I have had the pleasure meeting for a consultation today for an 8 cm adnexal cyst seen on CT. Initially it was thought that she was holding urine until a catheter was placed in the bladder and a CT with contrast was performed showing the raymond in the bladder with a collapsed bladder and an 8 cm fluid filled cystic structure on the left adnexa. Her daughter in the room states that she had a hysterectomy several years ago. She states that she had some kind of polyp at her cervix and it may have been pre-cancer or cancer but it was all removed. Her back story is that she is here on the rehab floor status post transferred to [facility] for thrombectomy for an acute left MCA stroke. At arrival to [facility] the NIHSS she was deemed not a candidate for thrombectomy. She was not taking an antiplatelet agent or a anticoagulant prior to her initial presentation and she is now on Eliquis. She has a history of type 2 diabetes mellitus (with LT insulin use), hyperuricemia, restless leg syndrome, hyperlipidemia, tobacco dependence in remission, chronic kidney disease stage III, diverticulosis, chronic use of gabapentin (no explanation in any of the documentation on why she was taking Gabapentin). Currently she is laying in bed and is alert. She is not quite oriented to the day. Her daughter and son-in-law are at bedside with lots of questions. [facility] Medical History (Updated 03/01/25 @ 17:[address] Asia Reaves, ) Normochromic normocytic anemia Diabetic polyneuropathy Hyperuricemia RLS (restless legs syndrome) CHI (closed head injury) Cervical cancer Overweight Diverticular hemorrhage Acute diverticulitis of intestine Visual disturbance Lightheadedness Obesity Former tobacco use CKD (chronic kidney disease), stage III Vertigo Dyslipidemia Diverticular hemorrhage Cervical cancer HTN (hypertension) DM II (diabetes mellitus, type II), controlled Home Medications ?Medication ?Instructions ?Recorded ?Last Taken ?Type pramipexole 0.25 mg tablet 0.25 mg PO QHS restless legs 02/24/17 02/21/25 History allopurinol 100 mg tablet 100 mg PO BIDCM gout 10/10/20 02/22/25 History cyanocobalamin (vitamin B-12) 1,000 mcg PO DAILY supplement 10/10/20 10/09/20 History 1,000 mcg capsule rosuvastatin 20 mg tablet 20 mg PO QHS cholesterol 09/03/23 Unknown History gabapentin 400 mg capsule 300 mg PO QHS nerve pain 02/16/25 02/21/25 History apixaban 5 mg tablet (Eliquis) 5 mg PO Q12H AFlutter 02/22/25 02/22/25 History meclizine 25 mg tablet 25 mg PO TID PRN PRN Dizziness 02/22/25 Unknown History metoprolol succinate 25 mg 25 mg PO DAILY AFlutter 02/22/25 02/22/25 History tablet,extended release 24 hr Allergy/AdvReac Type Severity Reaction Status Date / Time No Known Allergies Allergy Verified 09/03/23 01:34 Family History Mother Lung cancer COPD (chronic obstructive pulmonary disease) Father Alcoholism CAD (coronary artery disease) Heart disease Hypertension Myocardial infarction age 43 secondary to MD. Surgical History History of carpal tunnel surgery of right wrist History of tonsillectomy and adenoidectomy Hx of dilation and curettage Hx of cholecystectomy History of hysterectomy S/P appendectomy Social History (Updated 02/22/25 @ 18:[address] Norma Madden DO) household members: none and other details: She is number of children: 3 pets and animals: Yes (1 cat named Shelby) pets and animals: cat(s) Smoking Status: Former smoker how long ago did patient quit smoking: Smoked 1 pack/day x 20 years, quit 1973. alcohol intake: current alcohol intake frequency: holidays/special occasions only substance use type: does not use Vital Signs Vital Signs Vital Signs: 02/28/25 18:00 02/28/25 20:42 02/28/25 20:48 Temperature 98.2 F Temperature Source Temporal Pulse Rate 89 Pulse Strength Normal (2+) Respiratory Rate 16 Respiratory Effort Normal Non-Labored Respiratory Depth Normal Respiratory Pattern Normal Blood Pressure 96/70 Blood Pressure Mean 78 Blood Pressure Source Monitor Blood Pressure Position Sitting Blood Pressure Location Right Arm Pulse Ox 97 Oxygen Delivery Method Room Air Room Air 03/01/25 05:54 03/01/25 07:02 03/01/25 07:50 Temperature 99.0 F Temperature Source Temporal Pulse Rate 111 H 111 H Pulse Strength Respiratory Rate 18 Respiratory Effort Respiratory Depth Respiratory Pattern Blood Pressure 116/65 Blood Pressure Mean 82 Blood Pressure Source Monitor Blood Pressure Position Semi-Fowlers Blood Pressure Location Right Arm Pulse Ox 94 95 Oxygen Delivery Method Room Air Room Air 03/01/25 10:00 Temperature Temperature Source Pulse Rate Pulse Strength Normal (2+) Respiratory Rate Respiratory Effort Respiratory Depth Respiratory Pattern Blood Pressure Blood Pressure Mean Blood Pressure Source Blood Pressure Position Blood Pressure Location Pulse Ox Oxygen Delivery Method Weight Weight: 145 lb 4.554 oz Body Mass Index (BMI) 28.3 ROS Constitutional Constitutional: Reports fatigue Gastrointestinal Gastrointestinal: Denies abdominal pain, bloating, change in bowel habits, constipation, cramping, diarrhea, early satiety, nausea or vomiting Genitourinary Genitourinary: Denies burning urination, dysuria, flank pain or urinary urgency Musculoskeletal Musculoskeletal: Denies back pain Physical Exam Const alert, no apparent distress and average body habitus General Appearance: cooperative and comfortable HEENT normocephalic Resp normal respiratory effort GI soft to palpation, non-tender, non-distended and no masses GI Narrative: small left lower quadrant scar present, patient does not remember what surgery she had there. Back/Spine no CVA tenderness Extremity normal to inspection Skin no rashes or lesions noted Psych mental status grossly normal Lab / Micro Data 03/01/25 15:40 03/01/25 12:31 Labs: Laboratory Results - last 24 hr 02/26/25 11:35: IgG 622, IgA 140, IgM 43, Serum Immunofixation Comment H 02/28/25 21:53: POC Glucose 300 H 03/01/25 06:46: POC Glucose 217 H 03/01/25 11:15: POC Glucose 208 H 03/01/25 12:31: Sodium 130 L, Potassium 3.5, Chloride 96 L, Carbon Dioxide 21.4, Anion Gap 13, BUN 17, Creatinine 1.06, Estim Creat Clear Calc 30.48 L, Est GFR (MDRD) Non-Af 50 L, BUN/Creatinine Ratio 15.7, Glucose 202 H, Calcium 9.7 03/01/25 15:40: Hgb 11.1 L, Hct 33.1 L, TSH 2.000 03/01/25 16:31: POC Glucose 147 H Imaging Radiology Impression Abdomen/Pelvis CT 03/01/25 11:43 IMPRESSION: Distended urinary bladder. Pancreatic atrophy. Status post cholecystectomy. OVERALL FINAL ASSESSMENT: . Reading Location: [id number] Abdomen/Pelvis CT 03/01/25 13:53 IMPRESSION: 8.6 cm 8.1 cm cystic mass in the left adnexa. A Raymond catheter seen within the decompressed urinary bladder. Reading Location: [facility]
[2025-03-01] MEDS: Tamsulosin HCl 0.4 MG Capsule PO (17:18)
[2025-03-01] MEDS: 0.9% Normal Saline (1000mL) 1,000 ML 75 ML IV (17:19)
[2025-03-01] MEDS: 0.9% Saline Lock 10 ML Syringe IV ×2 (17:19→23:08)
--- NOTE | 2025-03-01 17:21 | US_ITS ---
PROCEDURE: PELVIC (NON ) 03/01/2025 REASON FOR EXAM: LEFT OVARIAN CYST, POSTMENOPAUSAL. TECHNIQUE: Transabdominal pelvic ultrasound COMPARISON: CT scan on 03/01/2025. FINDINGS: Prior hysterectomy. The right ovary measures 3.3 x 2.8 x 2.4 cm. Complex cystic appearance of the right ovary. Normal right ovarian flow. Left ovarian/left adnexal simple cyst is noted measuring 8.3 x 8.1 x 9 cm. No free fluid in the pelvic cul-de-sac. Underdistended bladder secondary to the presence of urinary catheter. US/Pelvic (Non ) IMPRESSION: Left ovarian/left adnexal simple cyst measuring 8.3 cm. Complex cystic appearance of the right ovary. Normal right ovarian flow. Prior hysterectomy. Reading Location: [facility]
[2025-03-01 19:48] LABS: Urine Sodium < 20 mmol/L (Not Establ.)
[2025-03-01 19:50] VITALS: BP 108/52; PULSE 112; RESP 16; TEMP 37; O2SAT 94
[2025-03-01 20:23] LABS: Osmolality, Urine 472 mOsm/KG
[2025-03-01 20:23] LABS: Osmolality, Serum 285 mOsm/KG (280-301)
[2025-03-01 21:25] VITALS: BMI 28.3
[2025-03-01 21:52] VITALS: BP 101/59; BP 104/49; BP 94/56; PULSE 115; PULSE 120; PULSE 122
[2025-03-01 22:14] LABS: Bedside Glucose 179 mg/dL (74-106)
[2025-03-01] MEDS: Gabapentin 300 MG Capsule PO (22:32)
[2025-03-01] MEDS: Pramipexole Di-HCl 0.25 MG Tablet PO (22:33)
[2025-03-01] MEDS: Atorvastatin Calcium 40 MG Tablet PO (22:34)
[2025-03-01 22:45] VITALS: BP 108/54; PULSE 101
[2025-03-01] MEDS: MELATONIN 3 MG TABLET PO (22:53)
--- NOTE | 2025-03-01 23:46 | NURSING ---
Pt IV to LAC became occluded. After several attempts including the Nursing Activity Aid to start a new IV, no IV could be started. NS is stopped at this time.
[2025-03-02] VITALS (7 sets, daily range): BP systolic 96–112; BP diastolic 40–56; PULSE 77–95; RESP 16–28; TEMP 36.6–36.9; O2SAT 94–97; BMI 28.3
[2025-03-02] MEDS: 0.9% Saline Lock 10 ML Syringe IV (00:13)
[2025-03-02] MEDS: Menthol/Lanolin/Calamine/Znox 113 GM Tube 1 APPLIC TOPICAL ×2 (04:46→21:21)
[2025-03-02] MEDS: Nystatin Powder 15gm Bottle 1 APPLIC TOPICAL ×2 (04:47→21:31)
[2025-03-02 06:50] LABS: Bedside Glucose 125 mg/dL (74-106)
[2025-03-02] MEDS: Insulin Lispro 100 UNIT/ML INSULN.PEN SC ×3 (08:14→17:13)
[2025-03-02] MEDS: Glimepiride 1 MG Tablet PO ×2 (08:15→17:14)
[2025-03-02] MEDS: Insulin Glargine-YFGN 100 UNIT/ML Pen 18 UNIT SC (09:34)
[2025-03-02] MEDS: Cyanocobalamin 500 MCG Tablet 1000 MCG PO (09:35)
[2025-03-02] MEDS: APIXABAN 5 MG TABLET PO ×2 (09:35→21:21)
[2025-03-02] MEDS: Senna/Docusate Sodium 1 Tablet 2 TABLET PO ×2 (09:35→21:31)
[2025-03-02] MEDS: Cefadroxil 500 MG CAPSULE PO (09:35)
[2025-03-02] MEDS: Metoprolol Tartrate 25 MG Tablet 12.5 MG PO ×2 (09:36→21:29)
[2025-03-02] MEDS: 0.9% Normal Saline (1000mL) 1,000 ML 75 ML IV (09:47)
[2025-03-02 11:41] LABS: Bedside Glucose 225 mg/dL (74-106)
[2025-03-02 17:11] LABS: Bedside Glucose 160 mg/dL (74-106)
[2025-03-02] MEDS: Tamsulosin HCl 0.4 MG Capsule PO (17:14)
[2025-03-02] MEDS: Atorvastatin Calcium 40 MG Tablet PO (21:21)
[2025-03-02] MEDS: MELATONIN 3 MG TABLET PO (21:30)
[2025-03-02] MEDS: Pramipexole Di-HCl 0.25 MG Tablet PO (21:30)
[2025-03-02] MEDS: Gabapentin 300 MG Capsule PO (21:31)
[2025-03-02 21:53] LABS: Bedside Glucose 73 mg/dL (74-106)
[2025-03-03] MEDS: Nystatin Powder 15gm Bottle 1 APPLIC TOPICAL ×2 (05:47→21:38)
[2025-03-03] MEDS: Menthol/Lanolin/Calamine/Znox 113 GM Tube 1 APPLIC TOPICAL ×2 (05:47→21:35)
[2025-03-03 05:54] VITALS: BP 109/62; PULSE 72; RESP 16; TEMP 36.6; O2SAT 95
[2025-03-03 07:22] LABS: Bedside Glucose 93 mg/dL (74-106)
[2025-03-03] MEDS: Glimepiride 1 MG Tablet PO ×2 (08:09→17:01)
[2025-03-03] MEDS: Insulin Lispro 100 UNIT/ML INSULN.PEN SC ×3 (08:09→21:36)
[2025-03-03 08:18] VITALS: BP 109/62; PULSE 72
[2025-03-03] MEDS: APIXABAN 5 MG TABLET PO ×2 (09:49→21:35)
[2025-03-03] MEDS: Insulin Glargine-YFGN 100 UNIT/ML Pen 18 UNIT SC (09:49)
[2025-03-03] MEDS: Cyanocobalamin 500 MCG Tablet 1000 MCG PO (09:50)
[2025-03-03] MEDS: Senna/Docusate Sodium 1 Tablet 2 TABLET PO ×2 (09:50→21:38)
[2025-03-03 11:42] LABS: Bedside Glucose 161 mg/dL (74-106)
[2025-03-03 14:37] VITALS: BMI 28.3
[2025-03-03 16:21] LABS: Bedside Glucose 133 mg/dL (74-106)
[2025-03-03] MEDS: Tamsulosin HCl 0.4 MG Capsule PO (17:01)
[2025-03-03 18:00] VITALS: BP 100/97; PULSE 86; RESP 16; TEMP 37.2; O2SAT 98
[2025-03-03 21:14] VITALS: BP 119/52; PULSE 93; RESP 15; TEMP 37; O2SAT 97
[2025-03-03 21:20] VITALS: BMI 28.3
[2025-03-03 21:36] VITALS: BP 119/52; PULSE 93
[2025-03-03] MEDS: Metoprolol Tartrate 25 MG Tablet 12.5 MG PO (21:36)
[2025-03-03] MEDS: Atorvastatin Calcium 40 MG Tablet PO (21:36)
[2025-03-03] MEDS: Pramipexole Di-HCl 0.25 MG Tablet PO (21:38)
[2025-03-03] MEDS: MELATONIN 3 MG TABLET PO (21:38)
[2025-03-03] MEDS: Gabapentin 300 MG Capsule PO (21:38)
[2025-03-03 22:00] VITALS: PULSE 73; RESP 16; O2SAT 98
[2025-03-03 22:26] LABS: Bedside Glucose 168 mg/dL (74-106)
[2025-03-04] MEDS: 0.9% Saline Lock 10 ML Syringe IV (04:59)
[2025-03-04] MEDS: Nystatin Powder 15gm Bottle 1 APPLIC TOPICAL ×2 (05:01→21:45)
[2025-03-04] MEDS: Menthol/Lanolin/Calamine/Znox 113 GM Tube 1 APPLIC TOPICAL ×2 (05:01→21:44)
[2025-03-04 05:04] VITALS: BP 108/52; PULSE 81; RESP 15; TEMP 36.6; O2SAT 93
[2025-03-04 07:24] LABS: Bedside Glucose 124 mg/dL (74-106)
[2025-03-04] MEDS: Insulin Lispro 100 UNIT/ML INSULN.PEN SC (08:11)
--- NOTE | 2025-03-04 08:36 | PCM.PROGNOTE ---
Subjective Subjective Afebrile VSS -blood pressure over the weekend has ranged from 96/40 to 119/52. Current blood pressure is 108/52. Heart rate has been within normal limits. Maintaining appropriate oxygen saturation on RA Oral intake - FOOD good FLUIDS needs a lot of encouragement to increase fluid intake. She received 2 L of IV fluid at the end of last week for intravascular volume depletion. Oral fluid intake yesterday was 950 with 1600 out for a total of -650 balance. Blood sugar record was reviewed. Blood sugars on 03/03/2025 ranged from 93 fasting to 168 at at bedtime. No hypoglycemia. Discussed with nursing - no problems that need addressed Reviewed the THERAPY notes Medication list reviewed. Pelvic ultrasound showed an 8.3 x 8.1 x 9 cm left adnexal simple cyst. The right ovary measured 3.3 x 2.8 x 2.4 cm and there was a complex cystic appearance of the right ovary. D/W Dr. Reaves. Recommended follow up pelvic US in 8 weeks. Would like to check a CEA and a CA 125. Urine osmolality was 472 and serum osmolality was normal at 285. Urine sodium was less than 20. The serum immunofixation shows IgG monoclonal protein with kappa light chains. Urine immunofixation for Bence-Billy proteins is still pending. All lab from this morning was personally reviewed. Sodium is 134 and the potassium is 3.3. BUN is 12 with a creatinine of 0.96 which is down from 1.06 last Tuesday. Calcium is normal. Debbi's only complaint today is she feels sleepy. Denies pain. Objective Data Objective Data Vital Signs: Vital Signs Temp Pulse Resp BP Pulse Ox O2 Del Method 97.8 F 81 15 108/52 L 93 Room Air 03/04/25 05:04 03/04/25 05:04 03/04/25 05:04 03/04/25 05:04 03/04/25 05:04 03/04/25 05:04 Oxygen Delivery Method Room Air Weight: 145 lb 4.554 oz Body Mass Index (BMI) 28.3 Intake & Output: Intake and Output for Last 24 Hours 03/02/25 03/03/25 03/04/25 23:59 23:59 23:59 Intake Total 3060 / 3060 950 / 1200 670 / 670 Output Total 1550 / 1550 1600 / 2050 900 / 900 Balance 1510 / 1510 -650 / -850 -230 / -230 Lab / Micro Data 03/01/25 15:40 03/04/25 09:16 Labs: Laboratory Results - last 24 hr 03/03/25 11:22: POC Glucose 161 H 03/03/25 15:59: POC Glucose 133 H 03/03/25 21:34: POC Glucose 168 H 03/04/25 07:05: POC Glucose 124 H Micro: Microbiology 02/22/25 21:42 Biopsy - Eye Gram Stain - Final 02/22/25 21:42 Biopsy - Eye Eye Culture - Final No growth in 48 hours. 02/22/25 21:42 Biopsy - Eye Anaerobic Culture - Final No growth in 5 days. 02/26/25 11:20 Urine Catheter - Romo Urine Culture - Final Culture exhibits no growth. 02/23/25 12:00 Urine Catheter - Catheter Urine Culture - Final Klebsiella pneumoniae sp pneum Physical Exam Const alert and no apparent distress Constitutional Narrative: sleepy today. Pleasant and cooperative. NAD while sitting in the recliner. Romo was removed this AM. Has not voided yet. Bladder scans not reliable due to the large simple cyst in the L adnexa. There was no hydronephrosis on the CT scan of the abdomen. Bladder was decompressed. Creatinine is stable. No need for postvoid residuals. General Appearance: cooperative Resp normal respiratory effort and clear to auscultation bilaterally Effort and Inspection: Negative for tachypneic Cardio regular rate, regular rhythm and no gallops Cardio Narrative: No ectopy. GI soft to palpation, non-tender, non-distended and no masses Back/Spine no CVA tenderness Extremity normal to inspection General Extremity: Negative for edema Skin no rashes or lesions noted Rashes: no rashes Psych mental status grossly normal, cooperative and affect normal Appearance: appropriate Assessment & Plan Assessment/Plan (1) Debility: (2) Acute ischemic left MCA stroke: (3) History of thrombolytic therapy: (4) New onset a-fib: (5) Expressive aphasia: (6) Essential hypertension: (7) Dyslipidemia: (8) Type 2 diabetes mellitus: QUALIFIERS: Diabetes mellitus complication status: with unspecified complications Diabetes mellitus detention insulin use: without detention use Qualified Code(s): E11.8 - Type 2 diabetes mellitus with unspecified complications (9) CKD (chronic kidney disease), stage III: QUALIFIERS: Chronic kidney disease stage 3 subtype: stage 3b (GFR 30-44) Qualified Code(s): N18.32 - Chronic kidney disease, stage 3b (10) Diabetic polyneuropathy: QUALIFIERS: Diabetes mellitus type: type 2 Qualified Code(s): E11.42 - Type 2 diabetes mellitus with diabetic polyneuropathy (11) Hyperuricemia: (12) RLS (restless legs syndrome): (13) Overweight: (14) Lytic lesion of bone on x-ray: (15) Normochromic normocytic anemia: (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 she has NN anemia and a lytic lesion in the Left parietal bone. Will need to follow up with oncology post DC from rehab (17) Cyst of left ovary: PLAN: Large simple cyst (18) Complex cyst of right ovary: PLAN: [employer] is following. Dr. Mario Elena wanted a CEA and a CA 125 and these have been ordered. PLAN: Plan 1. Continue therapy 2. BMP and HH today 3. DC Romo catheter 4. No changes to the hypoglycemic regimen other than discontinuing the sliding scale insulin. 5. 40 mEq of KCl now and then 20 mEq p.o. daily. 6. CEA and CA 125 ordered for [employer] 7. Will need to follow up with Heme/onc post DC for monoclonal gammopathy with kappa light chains. Urine for immunifixation is pending. Charges/Coding Visit Charges Inpatient E&M: 67836 Subs Hosp L1
[2025-03-04] MEDS: APIXABAN 5 MG TABLET PO ×2 (09:38→21:44)
[2025-03-04] MEDS: Glimepiride 1 MG Tablet PO ×2 (09:38→17:34)
[2025-03-04] MEDS: Senna/Docusate Sodium 1 Tablet 2 TABLET PO ×2 (09:38→21:45)
[2025-03-04 09:39] VITALS: BP 107/58; PULSE 85
[2025-03-04] MEDS: Cyanocobalamin 500 MCG Tablet 1000 MCG PO (09:39)
[2025-03-04] MEDS: Insulin Glargine-YFGN 100 UNIT/ML Pen 18 UNIT SC (09:41)
[2025-03-04 09:50] LABS: Anion Gap 12 (5-15); BUN 12 mg/dL (4-19); BUN/Creat Ratio 12.6 RATIO (10-20); Carbon Dioxide 20.1 mmol/L (21.0-32.0); Chloride 101 mmol/L (98-108); Creatinine, Serum 0.96 mg/dL (0.70-1.20); EST Glomerular Filtration Rate 57 (>60); Estimated Creatinine Clearance 33.65 ml/min (50-250); Glucose 127 mg/dL (70-99); Potassium 3.3 mmol/L (3.3-5.1); Sodium Level 134 mmol/L (133-145)
[2025-03-04 10:07] LABS: Alpha-1-Globulin, Ur 8.5 % (.); Alpha-2-Globulins, Ur 22.2 % (.); Beta Globulin, Ur 17.1 % (.); Gamma Globulin, Ur 13.3 % (.); IFE Result, Ur Comment: (.); M-Spike, Ur % Not Observed % (Not Observed); Protein, 24Ur 285 mg/24 hr (30-150); Total Protein, Ur 31.7 mg/dL (Not Estab.)
[2025-03-04 11:58] LABS: Bedside Glucose 110 mg/dL (74-106)
[2025-03-04 13:03] VITALS: BMI 28.3
--- NOTE | 2025-03-04 13:10 | PCM.PN.OB ---
Subjective Subjective patient sitting up in chair eating lunch, answering questions fairly well. daughter on phone with her. no vaginal bleeding no pelvic pain no abdominal bloating. patient states she did have cervical cancer and that's why she had a hysterectomy, had chemo after. Objective Data Objective Data Vital Signs: Vital Signs Temp Pulse Resp BP Pulse Ox O2 Del Method 97.8 F 85 15 107/58 L 93 Room Air 03/04/25 05:04 03/04/25 09:39 03/04/25 05:04 03/04/25 09:39 03/04/25 05:04 03/04/25 05:04 Oxygen Delivery Method Room Air Weight: 145 lb 4.554 oz Body Mass Index (BMI) 28.3 Intake & Output: Intake and Output for Last 24 Hours 03/02/25 03/03/25 03/04/25 23:59 23:59 23:59 Intake Total 3060 / 3060 950 / 1200 910 / 910 Output Total 1550 / 1550 1600 / 2050 900 / 900 Balance 1510 / 1510 -650 / -850 Lab / Micro Data 03/01/25 15:40 03/04/25 09:16 Labs: Laboratory Results - last 24 hr 02/27/25 06:00: Ur Total Protein 24 Hr 285 H, Urine Total Protein 31.7, Urine Albumin 39.0, U Cirjg-8-Pvxligfi 8.5, U Pjbtz-1-Krwqpixb 22.2, U Beta Globulin 17.1, U Gamma Globulin 13.3, U PEP M-Bi Not Observed, U PEP M-Bi 24 Hr TNP, Urine Immunofixation Comment:, Ur Immunofix PEP Note Comment 03/03/25 15:59: POC Glucose 133 H 03/03/25 21:34: POC Glucose 168 H 03/04/25 07:05: POC Glucose 124 H 03/04/25 09:16: Sodium 134, Potassium 3.3, Chloride 101, Carbon Dioxide 20.1 L, Anion Gap 12, BUN 12, Creatinine 0.96, Estim Creat Clear Calc 33.65 L, Est GFR (MDRD) Non-Af 57 L, BUN/Creatinine Ratio 12.6, Glucose 127 H, Calcium 9.0 03/04/25 11:35: POC Glucose 110 H Micro: Microbiology 02/22/25 21:42 Biopsy - Eye Gram Stain - Final 02/22/25 21:42 Biopsy - Eye Eye Culture - Final No growth in 48 hours. 02/22/25 21:42 Biopsy - Eye Anaerobic Culture - Final No growth in 5 days. 02/26/25 11:20 Urine Catheter - Romo Urine Culture - Final Culture exhibits no growth. 02/23/25 12:00 Urine Catheter - Catheter Urine Culture - Final Klebsiella pneumoniae sp pneum ROS Constitutional Constitutional: Reports fatigue Gastrointestinal Gastrointestinal: Denies abdominal pain or bloating Genitourinary Genitourinary: Denies burning urination, dysuria, flank pain or urinary urgency Musculoskeletal Musculoskeletal: Denies back pain Physical Exam Const alert Constitutional Narrative: sleepy today. Pleasant and cooperative. NAD while sitting in the recliner. Romo was removed this AM. Has not voided yet. Bladder scans not reliable due to the large simple cyst in the L adnexa. There was no hydronephrosis on the CT scan of the abdomen. Bladder was decompressed. Creatinine is stable. No need for postvoid residuals. Resp normal respiratory effort Extremity normal to inspection General Extremity: Negative for edema Skin no rashes or lesions noted Rashes: no rashes Psych mental status grossly normal, cooperative and affect normal Appearance: appropriate Assessment & Plan (1) Cyst of left ovary: COMMENT: cea and ca125 ordered. discussed options of child welfare caseworker onc referral vs exp management with repeat US in 8 weeks. plan to repeat US in 8 weeks. fu at [facility] as outpatient. reviewed ovarian torsion precautions. PLAN: Plan dicsussed at length risks of expectant vs surgical management of ovarian cyst, patient and family wish to expectantly manage at this time due to her other comorbidities. dicsussed fu in office. discussed with primary service, will follow peripherally and fu as OP Charges/Coding Visit Charges Inpatient E&M: 24540 Subs Hosp L2
--- NOTE | 2025-03-04 14:27 | CT_ITS ---
PROCEDURE: BRAIN/HEAD WITHOUT CONTRAST 03/04/2025 REASON FOR EXAM: POSSIBLE NEW STROKE TECHNIQUE: BRAIN/HEAD WITHOUT CONTRAST Coronal and Sagittal reconstruction series were provided. One or more dose reduction techniques were used (e.g., Automated exposure control, adjustment of the mA and/or kV according to patient size, use of iterative reconstruction technique. RADIATION DOSE SUMMARY: CTDlvol: 44.99 mGy DLP: 796.11 mGycm COMPARISON: Prior study dated February 16, 2025. FINDINGS: Brain: Low density in the periventricular white matter suggests mild chronic small vessel ischemic changes. CSF Spaces: Mild generalized cerebral atrophy Sinuses/Mastoids: Clear at visualized levels Bones: Unremarkable CT/Brain/Head without Contrast IMPRESSION: CHRONIC CHANGES. NO ACUTE FINDINGS. Reading Location: [place] [id number]
--- NOTE | 2025-03-04 14:29 | NURSING ---
This nurse attempted to administer PO potassium per order, upon administration of pills in applesauce patient began to cough for roughly 15 minutes, ST present for administration. Patient coughed up apple sauce and both pills. Per communication with ST and Dr. Madden make patient NPO now, order a STAT CT, and start NS with 20meq of potassium at 60mL/hr for 2L. ST to do a cookie swallow tomorrow.
[2025-03-04] MEDS: 0.9% Normal Saline (500mL Bag) 500 ML 999 ML IV (15:21)
[2025-03-04 15:39] LABS: Bedside Glucose 86 mg/dL (74-106)
[2025-03-04] MEDS: Dextrose 10%-Water 250 ML 999 ML IV (15:57)
[2025-03-04] MEDS: KCL 20MEQ in 0.9% NS 20 MEQ/1,000 ML IV.SOLN. 60 MEQ IV (16:17)
[2025-03-04 17:01] LABS: Bedside Glucose 191 mg/dL (74-106)
[2025-03-04 18:00] VITALS: BP 107/52; PULSE 81; RESP 16; TEMP 36.7; O2SAT 99
[2025-03-04] MEDS: MELATONIN 3 MG TABLET PO (21:45)
[2025-03-04] MEDS: Gabapentin 300 MG Capsule PO (21:45)
[2025-03-04] MEDS: Pramipexole Di-HCl 0.25 MG Tablet PO (21:45)
[2025-03-04] MEDS: Atorvastatin Calcium 40 MG Tablet PO (21:46)
[2025-03-04 22:19] LABS: Bedside Glucose 133 mg/dL (74-106)
[2025-03-04 22:20] VITALS: BP 116/60; PULSE 101
[2025-03-04] MEDS: Metoprolol Tartrate 25 MG Tablet 12.5 MG PO (22:20)
[2025-03-05 01:43] VITALS: BMI 28.3
[2025-03-05 04:07] LABS: Cancer Antigen 125 14.5 U/mL (0.0-38.1); Carcinoembryonic Antigen 1.3 ng/mL (0.0-4.7)
[2025-03-05] MEDS: Menthol/Lanolin/Calamine/Znox 113 GM Tube 1 APPLIC TOPICAL ×2 (06:03→21:52)
[2025-03-05] MEDS: Nystatin Powder 15gm Bottle 1 APPLIC TOPICAL ×2 (06:04→21:51)
[2025-03-05 07:00] VITALS: BP 106/61; PULSE 95; RESP 16; TEMP 36.8; O2SAT 92
[2025-03-05 07:23] LABS: Bedside Glucose 66 mg/dL (74-106)
[2025-03-05 07:41] LABS: Bedside Glucose 86 mg/dL (74-106)
[2025-03-05 08:16] VITALS: BP 106/61
[2025-03-05] MEDS: APIXABAN 5 MG TABLET PO ×2 (08:17→21:45)
[2025-03-05] MEDS: Insulin Glargine-YFGN 100 UNIT/ML Pen 8 UNIT SC (08:17)
[2025-03-05] MEDS: Potassium Chloride Oral Tablet 20 MEQ PO (08:17)
[2025-03-05] MEDS: Cyanocobalamin 500 MCG Tablet 1000 MCG PO (08:17)
--- NOTE | 2025-03-05 08:35 | PN_ITS ---
Subjective Subjective Afebrile VSS -blood pressure has ranged from 107/58 to 116/60 over the past 24 hours. Heart rate is ranged from 73-101 (last night at bedtime) Maintaining appropriate oxygen saturation on RA Oral intake - FOOD diet was changed yesterday to pur?ed with nectar thick liquids due to episode of choking with pills. FLUIDS fluid balance overnight was +970. she was -650 yesterday? Not on a diuretic. The blood sugar record was reviewed. Blood sugar at 6 AM this morning was 66 and the recheck was 86. Ate poorly yesterday due to fatigue, difficulty swallowing. Amaryl was placed on hold in the a.m. glargine was decreased to 8 units from 18 units. She will continue on a sliding scale. Discussed with nursing - no problems that need addressed. Was able to take her potassium today without a problem....no choking or vomiting. Reviewed the THERAPY notes Medication list reviewed. MBS scheduled for today. CEA is normal at 1.3. CA125 is also normal at 14.5. Received IV fluids yesterday for worsened neuro exam with dysphagia, increased fatigue/drowsiness, confusion and increased expressive aphasia. CTB negative for acute findings. She improved after a 500 cc NS bolus and hydration. Much more alert today. Denies headache and lightheadedness. Slept well last night. Not complaining of fatigue today. Denies nausea/heartburn/vomiting, dysuria, calf tenderness, shortness of breath, cough. No chest pain. discussed the results of the MBS with speech therapist. She did well today. OK to restart soft and bite size diet with thin liquids, double swallows and alternate sips and bites. Objective Data Objective Data Vital Signs: Vital Signs Temp Pulse Resp BP Pulse Ox O2 Del Method 98.1 F 101 H 16 106/61 99 Room Air 03/04/25 18:00 03/04/25 22:20 03/04/25 18:00 03/05/25 08:16 03/04/25 18:00 03/04/25 22:00 Oxygen Delivery Method Room Air Weight: 145 lb 4.554 oz Body Mass Index (BMI) 28.3 Intake & Output: Intake and Output for Last 24 Hours 03/03/25 03/04/25 03/05/25 23:59 23:59 23:59 Intake Total 950 / 1200 2019 Output Total 1600 / 2049 1050 / 1050 Balance -650 / -850 970 / 970 Lab / Micro Data 03/01/25 15:40 03/04/25 09:16 Labs: Laboratory Results - last 24 hr 02/27/25 06:00: Ur Total Protein 24 Hr 285 H, Urine Total Protein 31.7, Urine Albumin 39.0, U Mpgpe-2-Dxrepgdk 8.5, U Kasih-4-Jkzimcyi 22.2, U Beta Globulin 17.1, U Gamma Globulin 13.3, U PEP M-Bi Not Observed, U PEP M-Bi 24 Hr TNP, Urine Immunofixation Comment:, Ur Immunofix PEP Note Comment 03/04/25 09:16: Sodium 134, Potassium 3.3, Chloride 101, Carbon Dioxide 20.1 L, Anion Gap 12, BUN 12, Creatinine 0.96, Estim Creat Clear Calc 33.65 L, Est GFR (MDRD) Non-Af 57 L, BUN/Creatinine Ratio 12.6, Glucose 127 H, Calcium 9.0, Carcinoembryonic Ag 1.3, CA 125 Antigen 14.5 03/04/25 11:35: POC Glucose 110 H 03/04/25 15:21: POC Glucose 86 03/04/25 16:38: POC Glucose 191 H 03/04/25 21:53: POC Glucose 133 H 03/05/25 05:58: POC Glucose 66 L 03/05/25 07:24: POC Glucose 86 Micro: Microbiology 02/22/25 21:42 Biopsy - Eye Gram Stain - Final 02/22/25 21:42 Biopsy - Eye Eye Culture - Final No growth in 48 hours. 02/22/25 21:42 Biopsy - Eye Anaerobic Culture - Final No growth in 5 days. 02/26/25 11:20 Urine Catheter - Romo Urine Culture - Final Culture exhibits no growth. 02/23/25 12:00 Urine Catheter - Catheter Urine Culture - Final Klebsiella pneumoniae sp pneum Radiography Diagnostic Testing: Radiology Impression Brain CT 03/04/25 14:27 IMPRESSION: CHRONIC CHANGES. NO ACUTE FINDINGS. Reading Location: [facility] Physical Exam Const alert Constitutional Narrative: much more energy today. Closer to baseline. Still with some confusion. She was able to tell me her age today but, can still not tell me the year or the month. she could not do this at admission to rehab. I think she is back to her baseline today. General Appearance: cooperative HEENT Mouth: dry mucous membranes Eyes PERRL and EOMs intact bilaterally Eyes Narrative: No DC and the lid margins are no longer swollen and red. Denies itching. Resp normal respiratory effort and clear to auscultation bilaterally Resp Narrative: No cough Effort and Inspection: Negative for tachypneic Cardio regular rhythm, no rub and no gallops Cardio Narrative: Resting HR is increased. No ectopy GI GI Narrative: mildly distended and a little tympanic. Soft, no guarding with palpation. normal BS's. Had 2 BM's on the and none since. Denies feeling bloated. Extremity no calf tenderness General Extremity: Negative for edema Skin Rashes: no rashes Neuro Neuro Narrative: No drift with any of the extremities but, weaker in the L arm and leg when compared to the R side. Psych cooperative Psych Narrative: Pleasant. Sleeping well at night. 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: without marine oil terminal superintendent use Qualified Code(s): E11.8 - Type 2 diabetes mellitus with unspecified complications (9) CKD (chronic kidney disease), stage III: QUALIFIERS: Chronic kidney disease stage 3 subtype: stage 3b (GFR 30-44) Qualified Code(s): N18.32 - Chronic kidney disease, stage 3b (10) Diabetic polyneuropathy: QUALIFIERS: Diabetes mellitus type: type 2 Qualified Code(s): E 11.42 - Type 2 diabetes mellitus with diabetic polyneuropathy (11) Hyperuricemia: (12) RLS (restless legs syndrome): (13) Overweight: (14) Lytic lesion of bone on x-ray: (15) Normochromic normocytic anemia: (16) Monoclonal gammopathy: (17) Cyst of left ovary: (18) Complex cyst of right ovary: (19) Alteration in neurologic function: PLAN: I suspect this is due to IV volume depletion with decreased cerebral perfusion. Improved with fluid bolus and IVF's. CTB with no acute findings. PLAN: Plan 1. Continue therapy 2. Transition her back to a regular diet with soft and bite-size textures and thin liquids. She is to alternate sips and bites and double swallow. Crush the potassium and give with applesauce. 3. BMP, mag and H&H now. 4. Family coming in for shared care tomorrow. Plan DC for Tuesday if everything continues to go well. 5. Will follow up with Dr. Granados or Dr. Macario postdischarge from rehab. CA125 and CEA are both normal. Charges/Coding Visit Charges Inpatient E&M: 57306 Subs Hosp L1
--- NOTE | 2025-03-05 08:59 | ST.MBS ---
Modified Barium Swallow Patient Information Study Date: 03/05/25 Study Time: 08:30 Direct Billable Minutes: 120 Total Minutes procedure & reportin Diagnosis: I63.512 - Cerebral infarction Referring Physician: Norma Madden Medical History: Debbi Alcala, 89, with a complex medical history including type 2 diabetes, CKD stage III, and prior cervical cancer, presented to [facility] ED on 02/16/25 with confusion and expressive aphasia following a fall. Imaging revealed an occluded left MCA (M1 segment) and new-onset AFib. Due to age and scalp hematoma, TNK was deferred. She was transferred to [facility] for thrombectomy evaluation but was not a candidate (NIHSS 3). Thrombolytics were administered on 02/17/25. MRI on 02/18/25 showed small acute left MCA infarcts without hemorrhage. Anticoagulation with Eliquis began on 02/21/25. TTE showed preserved EF with diastolic dysfunction and biatrial enlargement. CTA showed partial recanalization. She was evaluated by therapies at [facility] and recommended for acute rehab. Previously independent, she was transferred to [facility] on 02/22/25 for intensive therapy. On 03/04/25, she received IV fluids for worsening neuro status (dysphagia, fatigue, confusion, expressive aphasia); CT was negative. Symptoms improved with hydration. Due to increased signs of aspiration, an MBSS was requested to assess swallow function. Respiratory Status: Oxygenating on Room Air Penetration-Aspiration Scale Penetration-Aspiration Scale: OBJECTIVE ASSESSMENT OF SWALLOW FUNCTION (QUANTITATIVE ? PER TRIAL): PENETRATION / ASPIRATION SCALE (ORTIZ): 1 = does not enter airway 2 = enters airway/above vocal folds/ejected 3 = enters airway/above vocal folds/not ejected 4 = enters airway/contacts vocal folds/ejected 5 = enters airway/contacts vocal folds/not ejected 6 = enters airway/below vocal folds/ejected 7 = enters airway/below vocal folds/not ejected despite effort 8 = enters airway/below vocal folds/no effort VIDEOFLOROSCOPIC SCALE SCORE (ORTIZ): Grade I = aspiration of material that has penetrated into the laryngeal vestibule, intact cough reflex Grade II = aspiration < 10 % of the bolus, intact cough reflex Grade III = aspiration of < 10 % of the bolus, reduced cough reflex or aspiration of > 10 % of the bolus, intact cough reflex Grade IV = aspiration of > 10 % of the bolus, reduced cough reflex Penetration-Aspiration Scale Score Thin Liquid via teaspoon: Result: 1= does not enter airway Thin Liquid via teaspoon Trial 2: Result: 7= enters airways/below vocal folds/not ejected despite effort Thin Liquid via teaspoon Trial 3: Result: 1= does not enter airway Thin Liquid via small single sip: cup: Result: 1= does not enter airway Thin Liquid via small single sip: cup Trial 2: Result: 2= enter airway/above vocal folds/ejected Thin Liquid via sequential sips: cup: Result: 3= enters airways/above vocal folds/not ejected Comment: spillage from the vallecula Wendover Thick Liquid via small single sip: cup: Result: 1= does not enter airway [place] Thick Liquid via small single sip: cup Trial 2: Result: 1= does not enter airway Honey Thick Liquid via teaspoon: Result: 1= does not enter airway Pudding via teaspoon: Result: 1= does not enter airway Pudding via teaspoon Trial 2: Result: 1= does not enter airway Thin Liquid via small single sip: cup Trial 3: Result: 5= enters airways/contacts vocal folds/not ejected Comment: post prandial aspiration of residue on vocal cords Cookie: Result: 1= does not enter airway Thin Liquid via single sip: straw: Result: 5= enters airways/contacts vocal folds/not ejected Thin Liquid via sequential sips:straw: Result: 2= enter airway/above vocal folds/ejected Oral Phase Labial Seal: Interlabial escape, no progression to anterior lip Tongue Control During Bolus Hold: Cohesive bolus between tongue to palatal seal Bolus Preparation/Mastication: Slow prolonged chewing/mashing with complete recollection Bolus Transport/Lingual Motion: Delayed initiation of tongue motion Oral Residue: Residue collection on oral structures Pharyngeal Phase Initiation of Pharyngeal Swallow: Bolus head at posterior laryngeal surgace of epiglottis Soft Palate Elevation: No bolus between soft palate and pharyngeal wall Laryngeal Elevation: Partial superior movement thyroid cart/partial apprx aryt-epig petiole Anterior Hyoid Excursion: Partial anterior movement Epiglottic Movement: Complete inversion Laryngeal Vestibule Closure at Height of Swallow: Incomplete; narrow column of air/contrast in laryngeal vestibule Pharyngeal Stripping Wave: Present - diminished Pharyngoesophageal Segment Opening: Parital distension and partial duration; parital obstruction of flow Tongue Base Retraction: Narrow column of contrast between tongue base & post. pharyngeal wall Pharyngeal Residue: Collection of residue within or on pharyngeal structures Esophageal Phase Esophageal Clearance: Esophageal retention w/ retrograde flow below pharyngoesophageal seg. 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 Mastication was noted to be slowed with Lizet Doone cookie. A delayed pharyngeal swallow onset was observed. Incomplete airway closure at the time of the swallow resulted in enoch aspiration of thin liquids administered via teaspoon, with an appropriate cough response elicited. Pharyngeal residue was noted in the valleculae and pyriform sinuses post-swallow, attributed to reduced tongue base retraction, diminished pharyngeal stripping wave, and UES opening. Laryngeal penetration was observed with thin liquids, occasionally reaching the vocal folds. This may be due to decreased airway closure, reduced laryngeal elevation, and/or spillage from the vallecula. A cricopharyngeal (CP) bar was visualized at the level of C5. During pudding trials, esophageal webbing was noted on the anterior esophageal wall opposite the CP bar, which may contribute to reduced UES distention and impaired bolus clearance (see below). Esophageal retention was observed in the upper to mid-esophagus, which cleared with a liquid wash. Recommendations: -Double swallow to clear pharyngeal residues -Intermittent cough and re-swallow -Alternate bites/sips to improve esophageal motility Recommendations Diet: Soft and Bite Sized Textures and Thin Liquids Comment: Recommendations: -Double swallow to clear pharyngeal residues -Intermittent cough and re-swallow -Alternate bites/sips to improve esophageal motility Compensatory Strategies: Small Bites, Small Sips, No Straws, Slow Rate, Feed only when alert, Multiple Swallows, Alternate bites/solids and sips/liquids, Sitting upright and Remain sitting upright for 30 minutes after PO intake Recommend Repeat Modified Barium Swallow: TBD Need for Skilled Speech Therapy Services: Yes Recommended Referrals: GI Consult Education Completed: 1. Described result of evaluation., 2. Pt understands evaluation & agrees with goals and treatment plan. and 4. Family/caregivers understand evaluation & agree w/ goals & tx plan. Status Active ST Patient: Active Contact Information [facility] Speech Therapy:: Demetria Velasco M.A., [facility] Speech-Language Pathologist [facility] [phone]? ?FAX [phone]? [email or web address] [address] [place] [address]? ?[place] [id number]
[2025-03-05 09:22] LABS: Hematocrit 28.9 % (37-47); Hemoglobin 9.6 g/dL (12.0-15.0)
[2025-03-05] MEDS: KCL 20MEQ in 0.9% NS 20 MEQ/1,000 ML IV.SOLN. 60 MEQ IV (09:28)
[2025-03-05] MEDS: 0.9% Saline Lock 10 ML Syringe IV ×2 (09:28→21:44)
[2025-03-05 09:57] LABS: Anion Gap 12 (5-15); BUN 11 mg/dL (4-19); BUN/Creat Ratio 11.3 RATIO (10-20); Calcium,Total 8.9 mg/dL (7.6-11.0); Carbon Dioxide 19.7 mmol/L (21.0-32.0); Chloride 103 mmol/L (98-108); Creatinine, Serum 0.97 mg/dL (0.70-1.20); EST Glomerular Filtration Rate 56 (>60); Estimated Creatinine Clearance 33.31 ml/min (50-250); Glucose 136 mg/dL (70-99); Potassium 3.8 mmol/L (3.3-5.1); Sodium Level 135 mmol/L (133-145)
[2025-03-05 10:10] LABS: Magnesium 1.7 mg/dL (1.5-2.2)
[2025-03-05 10:23] LABS: Uric Acid 4.4 mg/dL (2.6-6.0)
[2025-03-05 11:27] LABS: Bedside Glucose 133 mg/dL (74-106)
[2025-03-05 12:13] VITALS: BP 122/61; BP 134/65; BP 136/57; PULSE 87; PULSE 91; PULSE 99
[2025-03-05] MEDS: Magnesium Chloride 64 MG Delay Rel.Tablet 128 MG PO (13:54)
[2025-03-05 14:40] VITALS: BMI 28.3
[2025-03-05 16:59] LABS: Bedside Glucose 97 mg/dL (74-106)
[2025-03-05 18:00] VITALS: BP 122/56; PULSE 89; RESP 16; TEMP 36.9; O2SAT 97
[2025-03-05 21:41] VITALS: BP 137/61; PULSE 91; O2SAT 96
[2025-03-05 21:44] VITALS: BP 137/61; PULSE 91
[2025-03-05] MEDS: Pramipexole Di-HCl 0.25 MG Tablet PO (21:44)
[2025-03-05] MEDS: MELATONIN 3 MG TABLET PO (21:44)
[2025-03-05] MEDS: Senna/Docusate Sodium 1 Tablet 2 TABLET PO (21:44)
[2025-03-05] MEDS: Gabapentin 300 MG Capsule PO (21:44)
[2025-03-05] MEDS: Metoprolol Tartrate 25 MG Tablet 12.5 MG PO (21:44)
[2025-03-05] MEDS: Atorvastatin Calcium 40 MG Tablet PO (21:45)
[2025-03-05 22:37] LABS: Bedside Glucose 124 mg/dL (74-106)
[2025-03-06 02:30] VITALS: BMI 28.3
[2025-03-06] MEDS: 0.9% Saline Lock 10 ML Syringe IV ×2 (03:10→21:54)
[2025-03-06] MEDS: 0.9% Normal Saline (1000mL) 1,000 ML 60 ML IV ×2 (03:10→21:44)
[2025-03-06 06:00] VITALS: BP 101/55; PULSE 86; RESP 15; TEMP 36.6; O2SAT 94; BMI 29.7
[2025-03-06 07:18] LABS: Bedside Glucose 110 mg/dL (74-106)
[2025-03-06 08:25] VITALS: PULSE 86
[2025-03-06] MEDS: Metoprolol Tartrate 25 MG Tablet 12.5 MG PO ×2 (08:25→22:01)
[2025-03-06] MEDS: Senna/Docusate Sodium 1 Tablet 2 TABLET PO ×2 (08:25→22:01)
[2025-03-06] MEDS: APIXABAN 5 MG TABLET PO ×2 (08:26→22:01)
[2025-03-06] MEDS: Potassium Chloride Oral Tablet 20 MEQ PO (08:26)
[2025-03-06] MEDS: Magnesium Chloride 64 MG Delay Rel.Tablet 128 MG PO (08:26)
[2025-03-06] MEDS: Insulin Glargine-YFGN 100 UNIT/ML Pen 8 UNIT SC (08:26)
[2025-03-06] MEDS: Cyanocobalamin 500 MCG Tablet 1000 MCG PO (08:26)
[2025-03-06 11:45] LABS: Bedside Glucose 137 mg/dL (74-106)
--- NOTE | 2025-03-06 14:55 | CASEMGMT ---
Social Work Pt completed family training today. SW met with pt, pt dgt and son in law and discussed discharge plan. All parties agreeable to dc on Tuesday with [facility] PT/OT/ST/SN. A list of home health providers including quality and resource use data and consistent with the patient?s preferred geographic region, medical needs, and insurance network were provided from the [employer] Guide. Pt and family to review list and will make choices by team meeting tomorrow. Pt has all needed DME. SW to follow up to make final dc plans. Edd MALIN
[2025-03-06 15:48] VITALS: BMI 29.7
[2025-03-06 16:40] LABS: Bedside Glucose 108 mg/dL (74-106)
[2025-03-06 16:51] VITALS: BP 116/53; PULSE 80; RESP 16; TEMP 37; O2SAT 97
[2025-03-06 19:55] VITALS: BP 116/58; PULSE 112; RESP 32; TEMP 36.9; BMI 29.7
[2025-03-06] MEDS: Menthol/Lanolin/Calamine/Znox 113 GM Tube 1 APPLIC TOPICAL (21:59)
[2025-03-06] MEDS: Gabapentin 300 MG Capsule PO (22:00)
[2025-03-06 22:01] VITALS: BP 116/58; PULSE 112
[2025-03-06] MEDS: Pramipexole Di-HCl 0.25 MG Tablet PO (22:01)
[2025-03-06] MEDS: Atorvastatin Calcium 40 MG Tablet PO (22:01)
[2025-03-06] MEDS: MELATONIN 3 MG TABLET PO (22:01)
[2025-03-06] MEDS: Insulin Lispro 100 UNIT/ML INSULN.PEN SC (22:13)
[2025-03-06] MEDS: Nystatin Powder 15gm Bottle 1 APPLIC TOPICAL (22:15)
[2025-03-06 22:33] LABS: Bedside Glucose 163 mg/dL (74-106)
[2025-03-07] MEDS: Acetaminophen 325 MG Tablet 650 MG PO (05:42)
[2025-03-07] MEDS: Menthol/Lanolin/Calamine/Znox 113 GM Tube 1 APPLIC TOPICAL ×2 (05:47→21:02)
[2025-03-07] MEDS: Nystatin Powder 15gm Bottle 1 APPLIC TOPICAL ×2 (05:48→21:03)
[2025-03-07 06:00] VITALS: BP 117/70; PULSE 114; RESP 16; TEMP 36.9; O2SAT 93
[2025-03-07 06:09] LABS: Hematocrit 27.7 % (37-47); Hemoglobin 9.3 g/dL (12.0-15.0); Mean Corp Hgb Conc 33.6 g/dL (32-36); Mean Corpuscular Hgb 29.2 pg (27.0-32.0); Mean Corpuscular Volume 87.1 fL (81-99); Mean Platelet Vol. 9.6 fl (6.2-12.0); Platelet Count 269 K/mm3 (150-450); RBC Distribution Width CV 15.3 % (11.6-14.6); RBC Distribution Width SD 48.8 fl (35.1-43.9); Red Blood Count 3.18 M/mm3 (4.2-5.4); White Blood Count 10.1 K/mm3 (4.4-11.0)
[2025-03-07 06:26] LABS: Anion Gap 12 (5-15); BUN 9 mg/dL (4-19); BUN/Creat Ratio 10.3 RATIO (10-20); Calcium,Total 8.6 mg/dL (7.6-11.0); Carbon Dioxide 19.1 mmol/L (21.0-32.0); Chloride 103 mmol/L (98-108); Creatinine, Serum 0.89 mg/dL (0.70-1.20); EST Glomerular Filtration Rate 62 (>60); Estimated Creatinine Clearance 37.17 ml/min (50-250); Glucose 145 mg/dL (70-99); Sodium Level 134 mmol/L (133-145)
[2025-03-07 07:09] LABS: Bedside Glucose 166 mg/dL (74-106)
--- NOTE | 2025-03-07 07:18 | PCM.PROGNOTE ---
Subjective Subjective Debbi was seen on team rounds today. Family was present in the room. All questions were answered to their satisfaction. Afebrile VSS -blood pressure yesterday ranged from 101/50 in the quality intern (it is always lower in the morning) to 116/58. Heart rate was increased last evening and this morning. Maintaining appropriate oxygen saturation on RA Oral intake - FOOD ate 75 to 100% of breakfast and lunch yesterday but only 25 to 49% of supper. FLUIDS fluid balance yesterday was +1561 but overnight she was -600. The blood sugar record was reviewed all blood sugars yesterday were less than 180. No hypoglycemia. Discussed with nursing - no problems that need addressed Reviewed the THERAPY notes Medication list reviewed. All lab drawn this morning was personally reviewed. White blood cell count is normal at 10.1. Hemoglobin is 9.3, down from 11.1 on 03/01/2025 however she is better hydrated. Platelets are within normal limits. Sodium is 134 and the potassium is 4.0. The BUN is 9, down from 19 on 02/26/2025, and the creatinine is 0.89 which is down from 1.1 on 02/26/2025. Alert today. Denies lightheadedness, CP, palpitations, SOB, N/V/abd pain, calf pain and dysuria. Objective Data Objective Data Vital Signs: Vital Signs Temp Pulse Resp BP Pulse Ox O2 Del Method 98.4 F 114 H 16 117/70 93 Room Air 03/07/25 06:00 03/07/25 06:00 03/07/25 06:00 03/07/25 06:00 03/07/25 06:00 03/07/25 06:00 Oxygen Delivery Method Room Air Weight: 152 lb 5.431 oz Body Mass Index (BMI) 29.7 Intake & Output: Intake and Output for Last 24 Hours 03/05/25 03/06/25 03/07/25 23:59 23:59 23:59 Intake Total 2209 / 2209 3161 / 3161 Output Total 750 / 750 1600 / 1600 600 / 600 Balance 1459 / 1459 1561 / 1561 -600 / -600 Lab / Micro Data 03/07/25 05:10 03/07/25 05:10 Labs: Laboratory Results - last 24 hr 03/06/25 06:58: POC Glucose 110 H 03/06/25 11:25: POC Glucose 137 H 03/06/25 16:15: POC Glucose 108 H 03/06/25 22:11: POC Glucose 163 H 03/07/25 05:10: WBC 10.1, RBC 3.18 L, Hgb 9.3 L, Hct 27.7 L, MCV 87.1, MCH 29.2, MCHC 33.6, RDW Std Deviation 48.8 H, RDW Coeff of Luciano 15.3 H, Plt Count 269, MPV 9.6, Sodium 134, Potassium 4.0, Chloride 103, Carbon Dioxide 19.1 L, Anion Gap 12, BUN 9, Creatinine 0.89, Estim Creat Clear Calc 37.17 L, Est GFR (MDRD) Non-Af 62, BUN/Creatinine Ratio 10.3, Glucose 145 H, Calcium 8.6 03/07/25 06:46: POC Glucose 166 H Micro: Microbiology 02/22/25 21:42 Biopsy - Eye Gram Stain - Final 02/22/25 21:42 Biopsy - Eye Eye Culture - Final No growth in 48 hours. 02/22/25 21:42 Biopsy - Eye Anaerobic Culture - Final No growth in 5 days. 02/26/25 11:20 Urine Catheter - Romo Urine Culture - Final Culture exhibits no growth. 02/23/25 12:00 Urine Catheter - Catheter Urine Culture - Final Klebsiella pneumoniae sp pneum Physical Exam Const alert and no apparent distress General Appearance: cooperative HEENT moist oral mucous membranes Resp normal respiratory effort and clear to auscultation bilaterally Effort and Inspection: Negative for tachypneic Cardio Cardio Narrative: irreg irreg at 114 BPM. No gallop and no rub. Denies CP and also denies SOB. EKG shows AF. GI soft to palpation and non-tender GI Narrative: mildly distended and a little tympanic. Not tender to palpation. BS's present in all quadrants. Extremity no calf tenderness Extremity Narrative: NELY hose are in place General Extremity: Negative for edema Skin Rashes: no rashes Psych cooperative and affect normal Assessment & Plan Assessment/Plan (1) Debility: (2) Acute ischemic left MCA stroke: PLAN: L MCA distribution. (3) History of thrombolytic therapy: PLAN: Had Retivase at [facility] for a completely occluded L MCA and she had partial recanalization. Now on an AC for PAF. (4) New onset a-fib: PLAN: PAF (5) Expressive aphasia: PLAN: Much improved wile on rehab. Speech is much more fluid and less halting. Still trouble with word finding at times. Will need ongoing speech therapy at [place]. (6) Essential hypertension: PLAN: At the time of DC from rehab she is only taking Lopressor 12.5 mg BID. BP is well controlled. It is borderline low at 6 AM but, then improves. Denies lightheadedness. (7) Dyslipidemia: PLAN: Resume Crestor 20 mg Q HS. LDL at presentation to the ED with stroke symptoms was 58. 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 (9) CKD (chronic kidney disease), stage III: QUALIFIERS: Chronic kidney disease stage 3 subtype: stage 3b (GFR 30-44) Qualified Code(s): N18.32 - Chronic kidney disease, stage 3b PLAN: Stabel at CT from rehab. CREAT clearance is 37. (10) Diabetic polyneuropathy: QUALIFIERS: Diabetes mellitus type: type 2 Qualified Code(s): E11.42 - Type 2 diabetes mellitus with diabetic polyneuropathy (11) Hyperuricemia: PLAN: HCTZ discontinued at admission to rehab for IV volume depletion. Allopurinol was also discontinued and 2 weeks later the UA is still 4.4. No hx of gout and she no urolithiasis on CT scan of the abd. (12) RLS (restless legs syndrome): PLAN: Continue Gabapentin at a decreased dose of 300 mg at HS and Mirapex. (13) Overweight: (14) Lytic lesion of bone on x-ray: PLAN: Small, left parietal bone (15) Normochromic normocytic anemia: PLAN: Hemoglobin is 9.3 at discharge from acute rehab. (16) Monoclonal gammopathy: PLAN: Serum immunofixation shows a IgA monoclonal gammopathy with a kappa light chain. Urine immunofixation was negative for an M spike. (17) Cyst of left ovary: PLAN: Simple cyst measuring 8.3 x 8.1 x 9 cm (18) Complex cyst of right ovary: PLAN: Measures 3.3 x 2.8 x 2.4 cm. (19) Grade II diastolic dysfunction: (20) Biatrial enlargement: (21) Mild pulmonary hypertension: PLAN: PA systolic was estimated at 39. (22) Acute cystitis: QUALIFIERS: Hematuria presence: without hematuria Qualified Code(s): N30.00 - Acute cystitis without hematuria PLAN: Plan 1. Continue therapy 2. Planning discharge home with daughter Gabriela and son-in-law Patrick in the a.m. 3. Obtain an EKG today 4. Can not really increase the Lopressor because of low BP. Will give 1 dose of Dig, 250 mcg, today. Has an appt to follow up with Dr. Lindsay from cardiology post CT. Charges/Coding Visit Charges Inpatient E&M: 33375 Subs Hosp L2
[2025-03-07 08:21] VITALS: PULSE 114
[2025-03-07] MEDS: Metoprolol Tartrate 25 MG Tablet 12.5 MG PO ×2 (08:21→21:07)
[2025-03-07] MEDS: Magnesium Chloride 64 MG Delay Rel.Tablet 128 MG PO (08:21)
[2025-03-07] MEDS: Potassium Chloride Oral Tablet 20 MEQ PO (08:22)
[2025-03-07] MEDS: Insulin Glargine-YFGN 100 UNIT/ML Pen 8 UNIT SC (08:22)
[2025-03-07] MEDS: Cyanocobalamin 500 MCG Tablet 1000 MCG PO (08:22)
[2025-03-07] MEDS: APIXABAN 5 MG TABLET PO ×2 (08:22→21:05)
--- NOTE | 2025-03-07 08:37 | EKG12_ITS ---
Test Reason : ARRYTH Blood Pressure : */* mmHG Vent. Rate : 97 BPM Atrial Rate : * BPM P-R Int : * ms QRS Dur : 64 ms QT Int : 370 ms P-R-T Axes : * -42 88 degrees QTcB Int : 469 ms Atrial fibrillation Left axis deviation Low voltage QRS Septal infarct (cited on or before 16-Feb-2025) Abnormal ECG When compared with ECG of 16-Feb-2025 17:31, QRS axis Shifted left Questionable change in initial forces of Septal leads Nonspecific T wave abnormality now evident in Lateral leads Confirmed by CLIFFORD SALOMON, GALILEA ([id number]), sports editor DARCI TODD ([id number]) on 03/12/2025 6:34:52 AM Referred By: Norma Madden Confirmed By: GALILEA HORTON MD
[2025-03-07] MEDS: Digoxin 250 MCG Tablet PO (09:20)
[2025-03-07] MEDS: Glimepiride 1 MG Tablet PO (09:21)
[2025-03-07 12:22] LABS: Bedside Glucose 184 mg/dL (74-106)
[2025-03-07 13:10] VITALS: BMI 29.7
--- NOTE | 2025-03-07 13:20 | CASEMGMT ---
Addendum entered by Katie Morales 03/07/25 15:54: Social Work Referral made to [facility] for PT/OT/ST/SN/[employer]CH[employer]. [facility] is able to accept with a start of care n Tuesday. Pt notified. Pt family to transport pt home tomorrow. No additional dc needs at this time. DEA Mercado Original Note: Social Work Team meeting held with pt. PT/OT/SN/Physician provided updates. Pt has made very good progress with therapy. Discharge date has been set for tomorrow 03/08. Pt will be discharging to her daughter and son in laws house and they will be able to provide 24 hour care. Pt is agreeable to home health and family preference is 1. [facility] 2. [facility]. SW to make referral to [facility]. Pt has all needed DME. SW will follow to complete discharge plan. 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
--- NOTE | 2025-03-07 14:01 | DCINST_ITS ---
Discharge Instructions Diet Discharge Diet: No restrictions (thin liquids with soft bite size textures.) DC O2, CPAP, BIPAP needs Home O2 Discharge instructions: No Dressing / Incision Discharge Activity: May Not Drive, May Shower and Use Walker Weight Bearing Status: Full weight bearing Keep extremity elevated above heart level: Legs Dressing / Incision Call your doctor if you observe: Fever of 101 or Higher, Inability to urinate, Shortness of breath, Dizziness, Fainting spells, Chest pain, Increased palpitations (irregular heartbeat), Uncontrolled pain and - (STROKE symptoms: facial droop, slurred speech, inability to get words out, weakness on 1 side of the body and not the other, numbness on 1 side of the body and not the other, inability to maintain your balance sitting or standing, vertigo. ) Follow Up Care When: Several appts have been scheduled for you prior to discharge from rehab. They are listed later in this document. Test Results: Test results from this visit will be discussed in further detail at your follow- up appointment, if applicable. Pending Tests Upon Discharge: none Discharge Plan Admission Admit Date/Time: 02/22/25 17:42 Primary Reason for Your Visit: POST STROKE DEBILITY Attending Provider: Norma Madden Primary Care Provider: Maik Fay Consulting Providers: Asia Reaves Instructions Patient Instructions: Discharge Instructions for Stroke, AFib Additional Instructions / Restrictions: 1. When you get dehydrated you have decreased blood flow to the brain and your thought processing deteriorates. You have increased difficulty finding words and your speech is more halting. You get very tired/drowsy and you have trouble swallowing. This happened while you were on rehab and we repeated your CT of the brain and it was unchanged so no new stroke. The symptoms resolved with IV fluids/hydration. You were taking a diuretic when you came to us in rehab. You do not need a diuretic. If you have swelling in your ankles it should be treated with compression stockings and elevation of the legs. I want you to drink at least 1,000 to 1200 cc/day.......that is between 32 and 40 ounces a day. diuretics cause uric acid to go up in the blood. A high uric acid can cause kidney stones and gout. Since you are no longer taking a diuretic we discontinued the Allopurinol which you were taking to keep the uric acid down. We rechecked the uric acid level 2 weeks after the Allopurinol was stopped and it is normal. You had no kidney stones on the CT scan of the abdomen that was done and you have never had gout. You do not need to take allopurinol any longer. 2. You are only taking 1 BP pill and it is a very low dose. you are taking Lopressor which is a drug that lowers BP but, it also helps to prevent very high heart rates when you are in AFIB. You are taking only 12.5 mg twice a day and that is the lowest dose. We can not go up on the dose because the BP is already on the low side. I am adding another pill called Digoxin which slows the heart rate down but, it does not decrease the BP. You will take this medication only twice a week, on and Tuesday. You are going to see a metal sander and finisher at the hospital and his name is Dr. Lindsay. He may want to change the medications to control the AFIB if your BP stays on the low side. There is a medication called Amiodarone which is an anti-arrhythmic. It helps to slow the heart rate down and does not cause a decrease in BP. If you were on this medication we may be able to get rid of the Lopressor all together. You have an appt scheduled with him. 3. You have a large simple cyst (filled with fluid) on your left ovary. It is not causing any problems right now but, sometimes the large cyst can twist and cut off the blood supply to the ovary and this will cause a sudden onset of pain in the lower abd/pelvis. If this happens you need to go to the ER right away. You have a smaller complex cyst on the R ovary........this has some fluid in it but also has some more solid components. The tire shop manager wanted us to check 2 blood test called a CEA and a CA 125. Theses test go up with cancer. Both of these values were normal. the tire shop manager wants to see you in the office in 8 weeks and may want to repeat the ultrasound of the pelvis to make sure the cysts are not getting bigger. 4. 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 You are also anemic (low blood count). Because of this we did some testing to see if you had a disease called Multiple Myeloma (this is a form of bone cancer). You have an abnormal protein in your blood which causes and increase in Immunoglobulin. This is seen with Multiple Myeloma. We checked your urine for an abnormal protein and it was not present in the urine. Sometimes people have these proteins in their blood and they are of no significance. If you would like to take this further You could see an hematology/oncology doctor. 5. 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 AF cause clots to form in the heart and then they get squeezed out and go to the brain and can occlude an artery, sahara if that artery is already narrowed by arteriosclerosis. Because of the AFIB you will now be taking an anticoagulant called Eliquis (also called Apixaban). This will prevent the clots from forming in the heart and decrease the risk of additional strokes going forward. If you have any bleeding from the nose, blood from the rectum, blood in the urine or you have vomited blood go to the ER or call your doctor to see if you should stop the anticoagulation. If you get a bruise put ice on it to prevent the bruise from getting large. If you get a cut hold pressure on the area for 10 minutes without peeking to see if the bleeding will stop.......if it does not you may need to go to the ER. 6. At 89 years of age there is no benefit to keeping the blood sugars tightly controlled. It increases the risk for low blood sugars which is much more harmful than blood sugars that are a little high. Would like to keep the blood sugars mostly under 220-230 with no blood sugars less than 100. We have been able to go down on the amount of Glargine (long acting insulin) she was taking at admission to rehab. Strokes ALWAYS increase the blood sugars for a couple weeks after the stroke. for the first couple weeks at home check the blood sugar twice a day.......before breakfast and before supper and keep a record to show her PCP. If the blood sugars are consistently over 230 call the PCP or me to make adjustments to the Glargine. 7. It has been a pleasure getting to know you and I am so glad you are doing better and you will get to go home with Tahir. If any of you have questions after you leave rehab please do not hesitate to call me. OFFICE: [phone] CELL: [phone] NURSES STATION ON REHAB: [phone] Discharge Orders/Prescriptions Prescriptions: New acetaminophen 325 mg Tablet 650 mg PO Q6H PRN PRN (Reason: Pain Score 1-10) Qty: 1 0RF glimepiride 1 mg Tablet 1 mg PO BREAKFAST Qty: 30 0RF gabapentin 300 mg Capsule 300 mg PO QHS Qty: 30 0RF insulin glargine-yfgn 100 unit/mL (3 mL) Insulin Pen 8 unit subcut 0800 Qty: 1 0RF meclizine 12.5 mg Tablet 12.5 mg PO Q12H PRN PRN (Reason: vertigo (room spinning)) Qty: 20 0RF sennosides-docusate sodium [Stimulant Laxative Plus] 8.6-50 mg Tablet 2 tab PO BID Qty: 120 0RF potassium chloride 20 mEq Tablet,Er Particles/Crystals 20 meq PO DAILYCM Qty: 30 0RF Rx Instructions: This can be crushed and given in applesauce metoprolol tartrate 25 mg Tablet 12.5 mg PO BID Qty: 30 0RF Rx Instructions: 1/2 tablet twice a day magnesium oxide 400 mg (241.3 mg magnesium) tablet 400 mg PO DAILY Qty: 30 0RF digoxin 125 mcg (0.125 mg) tablet See Rx Instructions .ROUTE .COMPLEX Qty: 10 0RF Rx Instructions: 0.125 mg orally on and Sundays. Continued pramipexole 0.25 MG tablet 0.25 mg PO QHS cyanocobalamin (vitamin B-12) 1,000 MCG capsule 1,000 mcg PO DAILY rosuvastatin 20 mg tablet 20 mg PO QHS Eliquis 5 mg tablet 5 mg PO Q12H Qty: 60 0RF Discontinued allopurinol 100 MG tablet 100 mg PO BIDCM gabapentin 400 mg capsule 300 mg PO QHS metoprolol succinate 25 mg tablet extended release 24 hr 25 mg PO DAILY meclizine 25 mg tablet 25 mg PO TID PRN PRN (Reason: Dizziness) Referrals / Follow Up: Aravind Lindsay MD [Med Staff - Active Staff] - 03/27/25 10:15 am Maik Fay MD [Primary Care Provider] - 03/12/25 1:20 pm (You will see Tosha ) Brianna Macario MD [Med Staff - Active Staff] - 05/02/25 10:50 am Jayla Parker NP-C [Med Staff - Adv Practice Prof] - 03/21/25 10:30 am Disposition Disposition (needs filled in before D/C Order can be placed): Home Health Serv[facility] ce
--- NOTE | 2025-03-07 15:24 | EX.DISCHREH ---
Providers Date of Admission: 02/22/25 Date of Discharge: 03/08/25 Primary Care Physician: Dr. Maik Fay MD Consultations 03/01/25 15:52 Consult: CARPENTER ASSISTANT Routine Consulting Provider: Asia Reaves Reason for Consult: Left adnexal mass EMERGENT Consult: No MD Notified: Yes Date Notified: 03/01/25 Time Notified: 15:52 Method of Notification: Text Reason For Visit: STROKE Diagnosis Discharge Diagnosis (1) Debility: Status: Acute Code(s): R53.81 - Other malaise (2) Acute ischemic left MCA stroke: Status: Acute Code(s): I63.512 - Cerebral infarction due to unspecified occlusion or stenosis of left middle cerebral artery Plan: L MCA distribution. (3) History of thrombolytic therapy: Status: Acute Code(s): Z92.89 - Personal history of other medical treatment Plan: Had Retivase at [facility] for a completely occluded L MCA and she had partial recanalization. Now on an AC for PAF. (4) New onset a-fib: Status: Chronic Code(s): I48.91 - Unspecified atrial fibrillation Plan: PAF (5) Expressive aphasia: Status: Chronic Code(s): R47.01 - Aphasia Plan: Much improved wile on rehab. Speech is much more fluid and less halting. Still trouble with word finding at times. Will need ongoing speech therapy at DC. (6) Essential hypertension: Status: Chronic Code(s): I10 - Essential (primary) hypertension Plan: At the time of DC from rehab she is only taking Lopressor 12.5 mg BID. BP is well controlled. It is borderline low at 6 AM but, then improves. Denies lightheadedness. (7) Dyslipidemia: Status: Chronic Code(s): E78.5 - Hyperlipidemia, unspecified Plan: Resume Crestor 20 mg Q HS. LDL at presentation to the ED with stroke symptoms was 58. (8) Type 2 diabetes mellitus: Status: Chronic Code(s): E11.9 - Type 2 diabetes mellitus without complications Qualifiers: Diabetes mellitus complication status: with unspecified complications Diabetes mellitus halfway insulin use: without intermodal dispatcher use Qualified Code(s): E11.8 - Type 2 diabetes mellitus with unspecified complications Plan: BS's adequately controlled with Glargine 8 units in the AM and Amaryl 1 mg daily. (9) CKD (chronic kidney disease), stage III: Status: Chronic Code(s): N18.30 - Chronic kidney disease, stage 3 unspecified Qualifiers: Chronic kidney disease stage 3 subtype: stage 3b (GFR 30-44) Qualified Code(s): N18.32 - Chronic kidney disease, stage 3b Plan: Stabel at [facility] from rehab. CREAT clearance is 37. (10) Diabetic polyneuropathy: Status: Chronic Code(s): E11.42 - Type 2 diabetes mellitus with diabetic polyneuropathy Qualifiers: Diabetes mellitus type: type 2 Qualified Code(s): E11.42 - Type 2 diabetes mellitus with diabetic polyneuropathy (11) Hyperuricemia: Status: Resolved Code(s): E79.0 - Hyperuricemia without signs of inflammatory arthritis and tophaceous disease Plan: HCTZ discontinued at admission to rehab for IV volume depletion. Allopurinol was also discontinued and 2 weeks later the UA is still 4.4. No hx of gout and she no urolithiasis on CT scan of the abd. (12) RLS (restless legs syndrome): Status: Chronic Code(s): G25.81 - Restless legs syndrome Plan: Continue Gabapentin at a decreased dose of 300 mg at and Mirapex. (13) Overweight: Status: Chronic Code(s): E66.3 - Overweight (14) Lytic lesion of bone on x-ray: Status: Acute Code(s): M89.8X9 - Other specified disorders of bone, unspecified site Plan: Small, left parietal bone (15) Normochromic normocytic anemia: Status: Chronic Code(s): D64.9 - Anemia, unspecified Plan: Hemoglobin is 9.3 at discharge from acute rehab. (16) Monoclonal gammopathy: Status: Acute Code(s): D47.2 - Monoclonal gammopathy Plan: Serum immunofixation shows a IgA monoclonal gammopathy with a kappa light chain. Urine immunofixation was negative for an M spike. (17) Cyst of left ovary: Status: Acute Code(s): N83.202 - Unspecified ovarian cyst, left side Plan: Simple cyst measuring 8.3 x 8.1 x 9 cm (18) Complex cyst of right ovary: Status: Acute Code(s): N83.291 - Other ovarian cyst, right side Plan: Measures 3.3 x 2.8 x 2.4 cm. (19) Grade II diastolic dysfunction: Status: Chronic Code(s): I51.89 - Other ill-defined heart diseases (20) Biatrial enlargement: Status: Chronic Code(s): I51.7 - Cardiomegaly (21) Mild pulmonary hypertension: Status: Chronic Code(s): I27.20 - Pulmonary hypertension, unspecified Plan: PA systolic was estimated at 39. (22) Acute cystitis: Status: Resolved Code(s): N30.00 - Acute cystitis without hematuria Qualifiers: Hematuria presence: without hematuria Qualified Code(s): N30.00 - Acute cystitis without hematuria Plan 1. Continue therapy 2. Planning discharge home with daughter Gabriela and son-in-law Patrick 07/08/25. 3. Obtain an EKG today - it showed AF with a HR of 97 BPM. QT is normal. 4. Can not really increase the Lopressor because of low BP. Got 250 mcg of DIG PO and the HR came down. Will start 125mcg twice a week on and Sundays. 5. Follow-up with Jayla Henao from neurology and Dr. Macario have been scheduled. She also has an appointment with Dr. Lindsay to follow-up for cardiology. 6. If desired she can follow-up with hematology/oncology for monoclonal gammopathy with a lytic lesion of the skull. NO hypercalcemia and no bone pain. Urine for monoclonal protein is negative for M spike. Medications at Discharge Home Medications pramipexole 0.25 mg tablet 0.25 mg PO QHS restless legs 02/24/17 cyanocobalamin (vitamin B-12) 1,000 mcg capsule 1,000 mcg PO DAILY supplement 10/10/20 rosuvastatin 20 mg tablet 20 mg PO QHS cholesterol 09/03/23 acetaminophen 325 mg tablet 650 mg (2 x 325 mg) PO Q6H PRN PRN Pain Score 1-10 #1 TAB 03/07/25 apixaban 5 mg tablet (Eliquis) 5 mg PO Q12H AFlutter #60 tabs 03/07/25 digoxin 125 mcg (0.125 mg) tablet See Rx Instructions .Route .COMPLEX #10 tabs 03/07/25 gabapentin 300 mg capsule 300 mg PO QHS #30 caps 03/07/25 glimepiride 1 mg tablet 1 mg PO BREAKFAST #30 tabs 03/07/25 insulin glargine-yfgn 100 unit/mL (3 mL) subcutaneous pen 8 unit (0.08 mL) subcut 0800 #1 pen 03/07/25 magnesium oxide 400 mg (241.3 mg magnesium) tablet 400 mg PO DAILY #30 tabs 03/07/25 meclizine 12.5 mg tablet 12.5 mg PO Q12H PRN PRN vertigo (room spinning) #20 tabs 03/07/25 metoprolol tartrate 25 mg tablet 12.5 mg (1/2 x 25 mg) PO BID #30 tabs 03/07/25 potassium chloride 20 mEq tablet,extended release(part/cryst) 20 meq PO DAILYCM #30 tabs 03/07/25 sennosides 8.6 mg-docusate sodium 50 mg tablet (Stimulant Laxative Plus) 2 tab PO BID #120 tabs 03/07/25 Hospital Course Operations None Procedures Transthoracic echo (Done at [facility]. It showed a left ventricular ejection fraction of 55 to 60% with no wall motion abnormalities. There was grade 2 diastolic dysfunction and borderline increase in wall thickness with concentric remodeling. The right ventricular systolic pressure was mildly increased at 39 consistent w) Summary of Care Provided Minutes Spent on Discharge: 45 Hospital Course: CHARLETTE FARMER, is a 89 YO F with a PMH of type 2 diabetes mellitus (with LT insulin use), hyperuricemia, restless leg syndrome, hyperlipidemia, tobacco dependence in remission, chronic kidney disease stage III a, diverticulosis, chronic use of gabapentin (no explanation in any of the documentation on why she was taking Gabapentin), essential hypertension and cervical CA (status post hysterectomy - ovaries were not removed) who presented to the ED at [facility] on 02/16/25 with c/o nonsensical speech. Her dtr talked to her at 1:30 PM and speech was normal. At 4:30 PM the pt called her dtr because she fell and that is when the dtr noted she was confused and had expressive aphasia. She was not taking an antiplatelet agent or a anticoagulant. she had no hx of AF. Stat noncontrast CT brain showed no acute intracranial abnormalities. CTA of the head and neck showed an occluded M1 segment of the left MCA. EKG showed AFIB (new for her). PE in the ED noted a posterior auricular hematoma. The ER physician spoke to the neurologist at [facility] and neurology felt that given her age and the scalp hematoma that the risk of giving TNK outweighed the benefit. She was transferred to [facility] to be evaluated for thrombectomy. At arrival to [facility] the NIHSS was 3 and she was deemed not a candidate for thrombectomy. Repeat CT brain was negative. Dr. Waters from neurology discussed her findings with luzma Ochoa and she was offered BASKING RAISE trial. Family wanted to proceed. Repeat CTA of the brain once again showed L MCA occlusion and drug injection (Retivase) was given at 01:05 on 02/17/25. MRI of the brain on 02/18/25 showed small and tiny acute left MCA territory infarcts with no evidence of hemorrhagic transformation. There were several scattered remote microhemorrhages in the right greater than left cerebral hemispheres suspicious for cerebral amyloid angiopathy (CAA). Neurology assessed for CAA and she did not meet criteria so AC was started with Eliquis 5 mg BID on 02/21/25. There was an indeterminant small marrow replacing lesion involving the left parietal calvarium noted on the MRI. Transthoracic echocardiogram showed a left ventricular ejection fraction of 55 to 60% with no wall motion abnormalities. There was grade 2 diastolic dysfunction and borderline increase in wall thickness with concentric remodeling. The right ventricular systolic pressure was estimated at 39 which is consistent with mild pulmonary hypertension. She had biatrial enlargement. There was no significant valvular heart disease. Follow up CTA of the head and neck after the drug was administered showed partial recanalization of the left M1 occlusion. She was seen by PT/OT/ST at [facility] and acute inpt rehab was recommended at DC from [facility]. Pt had been living independently prior to stroke and was independent with ADL's. She was transferred to the acute inpt rehab unit at [facility] on 02/22/25 for 3 hours of therapy daily to restore function/independence at or near her level prior to the stroke. Charlette has had a chronic NN anemia since 2020. She now has a lytic lesion in the left parietal bone. Serum protein electrophoresis and immunofixation was obtained and it showed an IgG monoclonal protein with kappa light chains. Urine immunofixation did not show a clear monoclonal protein. Calcium is normal and she denies bone pain. Post void bladder scans consistently showed urine retention even after constipation resolved and UTI secondary to Klebsiella pneumoniae was treated. When nursing went straight cath her there was minimal output of urine. A CT scan of the abdomen and pelvis without contrast was obtained and was reported as showing urine retention in the bladder with no hydronephrosis. There was no urolithiasis. The bladder appeared to be displaced to the left on CT. Romo cath was inserted and the CT was repeated with IV contrast and it showed the bladder was decompressed with a large cyst of the left ovary. CARPENTER ASSISTANT was consulted and she was seen by Dr. Reaves who recommended a pelvic ultrasound. The ultrasound showed a simple cyst of the left ovary measuring 8.3 x 8.1 x 9 cm. There was a complex cystic appearing right ovary measuring 3.3 x 2.8 x 2.4 cm. CEA was normal and CA125 was also normal. She is going to follow-up with Dr. Macario or Dr. Granados in 8 weeks to have a repeat pelvic ultrasound. The patient and her family were instructed in symptoms of an ovarian torsion and know to go immediately to the ER if she should develop the symptoms. At presentation to rehab her hemoglobin was 11.1 and 1 day prior to discharge it is 9.3. she is better hydrated now than she was at admission to rehab but, she is on Apixaban for PAF. Hemoccult stool was ordered but, was not obtained prior to DC from rehab. She denies nausea/vomiting/heartburn/epigastric pain at the time of discharge from rehab. She has no hx of PUD. Charlette chronically has a low oral fluid intake. HCTZ was discontinued at admission to rehab. She could not tell me why she was taking allopurinol. She denied a history of gout or nephrolithiasis. We obtained a uric acid on allopurinol and it was 4.4. Allopurinol was discontinued and 2 weeks later we rechecked the uric acid and it is still normal at 4.4. Allopurinol was not continued at discharge. CT scan of the abdomen revealed no evidence of urolithiasis and she denies ever having gout. Blood pressure is well-controlled and she is taking only Lopressor 12.5 mg twice daily (the dose was decreased while on rehab due to low BP's). On the lower dose she has a HR of 100-115 when in AF. She was started on DIG prior to DC and will get 0.125 mg twice a week. Would check a dig level in a couple weeks. She has CRF and the creat clear is 37 at DC from rehab. Family was instructed to keep a record of BP and HR at home and bring it to her appts with Dr. Fay and Dr. Lindsay. The BP tends to be lowest at 0600 The systolic in the AM ranges from 101-106. It increases when she is awake and alert to a systolic in the mid-high teens. She denies lightheadedness. Charlette had a sudden decline in neurologic status on 03/04/2025. She was having difficulty swallowing, increased aphasia, increased confusion and marked increase in fatigue. A noncontrast CT brain was obtained and showed no acute findings. Since she was not a candidate for a thrombolytic (received Retivase at [facility] and was on Eliquis) we elected to hydrate. Her BP was low on that day and MM were very dry. After a NS bolus she was more alert and speech was getting back to baseline. She was still confused. IV fluids were continued. The BP improved with hydration.......the systolic were in the 130 range. After IV fluids were discontinued the BP dropped again. We have been constantly reminding her to drink more fluids (non-caffeinated). Her family knows they need to offer her fluids frequently. HR on 03/07 was in 110-115 range and she was in AF. We can not increase the beta sandor due to low BP's so she was given Digoxin 250 mcg X1. This was effective and the heart rate has ranged from 74-83 since the digoxin was given. She does have chronic renal failure so she was given a RX for digoxin 125 mcg twice a week on and Sundays. She has a follow up appt scheduled with Dr. Lindsay. If the BP is still low after DC maybe she would be a candidate for amiodarone to control HR rather than Lopressor. On the day of DC Charlette is very alert, oriented and excited about going home. Vital signs are heart rate 83 and blood pressure 111/45. She is 94 to 97% saturated on room air. She has ambulated up to 150 feet on various surfaces at contact-guard assist using a front wheeled walker. She has ambulated up to 100 feet with a rollator walker at contact-guard assist with max cues for using the brakes. She can ascend/descend two 6 inch steps. She can complete transfers to stand from various services at min/CGA. She fatigues easily and that s=is when she is MIN assist. She is mod I with eating and supervision/set up with grooming and upper body dressing. She is minimal assist with bathing and moderate assist with lower body dressing. She is standby assist for toilet transfer but max assist with toileting. She is CGA for tub/shower transfer. Daughter and son-in-law came in for family training prior to Charlette's discharge to learn how best to assist her. Appointments with Dr. Lindsay, Dr. Fay, Jayla Parker RESPIRATORY DIRECTOR (neurology) and Dr. Macario have been scheduled for her. Would obtain a CBC in 1 week and if the HGB continues to drop may nee a GI consult for endoscopy. Multiple Myeloma may also be contributing to the anemia and she may need to follow up with hematology/oncology. the SW was going to discuss a palliative care consult with pt and family prior to DC and do a referral if they were agreeable. Physical Exam Const alert, oriented x3 and no apparent distress General Appearance: cooperative, comfortable and well kempt HEENT HEENT Narrative: MM are dry. Needs a lot of reminders to keep her fluid intake up. Eyes PERRL, EOMs intact bilaterally, conjunctivae normal and no scleral icterus Eyes Narrative: No DC from the eyes. No periorbital edema Neck supple and No nodes General: trachea midline Chest Chest: symmetrical chest wall rise Resp normal respiratory effort Resp Narrative: Not tachypneic. Few coarse crackles in the bases posteriorly that mostly cleared after a few deep breaths. Effort and Inspection: able to speak in complete sentences Cardio Cardio Narrative: Irregular irregular rhythm secondary to atrial fibrillation. Heart rate is better controlled after 1 dose of digoxin yesterday. GI soft to palpation and non-tender GI Narrative: No guarding with palpation. Had a bowel movement on 03/06 and 03/07. The abdomen is mildly distended and a little tympanic, especially in the upper abdomen. Bowel sounds are present in all quadrants. Back/Spine no CVA tenderness Extremity Extremity Narrative: No clubbing. No cyanosis. Trace edema in the left ankle only. NELY hose are in place. No calf tenderness. Skin Rashes: no rashes Neuro Neuro Narrative: Alert, oriented to person, place, month. Can tell me her age appropriately today. Tongue protrudes on the midline. Palate elevates symmetrically. The smile is symmetrical today but she still has some flattening of the right nasolabial fold. Pupils are equal round and reactive to light. Extraocular muscles are intact. No nystagmus. Smooth pursuit. Good shoulder shrug bilaterally. No drift with any of the extremities. No visual field cuts. No ataxia. No extinction. Mild dysarthria..... Speech is intelligible but not as crisp as it was previously. Still having some aphasia. Aphasia fluctuates.......when she is fatigued, dehydrated or the BP is low it gets worse. Psych cooperative, affect normal, denies hallucinations and denies suicidal ideation Appearance: grossly normal, appropriate and well kempt Attitude: calm and engaged Activity / Motor Behavior: appropriate eye contact Weight / BMI Weight Weight: 152 lb 5.431 oz Body Mass Index (BMI) 29.7 ABG / Lab / Microbiology Data 03/07/25 05:10 03/07/25 05:10 Laboratory: Laboratory Results - last 24 hr 03/06/25 16:15: POC Glucose 108 H 03/06/25 22:11: POC Glucose 163 H 03/07/25 05:10: WBC 10.1, RBC 3.18 L, Hgb 9.3 L, Hct 27.7 L, MCV 87.1, MCH 29.2, MCHC 33.6, RDW Std Deviation 48.8 H, RDW Coeff of Luciano 15.3 H, Plt Count 269, MPV 9.6, Sodium 134, Potassium 4.0, Chloride 103, Carbon Dioxide 19.1 L, Anion Gap 12, BUN 9, Creatinine 0.89, Estim Creat Clear Calc 37.17 L, Est GFR (MDRD) Non-Af 62, BUN/Creatinine Ratio 10.3, Glucose 145 H, Calcium 8.6 03/07/25 06:46: POC Glucose 166 H 03/07/25 12:01: POC Glucose 184 H Microbiology: Microbiology 02/22/25 21:42 Biopsy - Eye Gram Stain - Final 02/22/25 21:42 Biopsy - Eye Eye Culture - Final No growth in 48 hours. 02/22/25 21:42 Biopsy - Eye Anaerobic Culture - Final No growth in 5 days. 02/26/25 11:20 Urine Catheter - Romo Urine Culture - Final Culture exhibits no growth. 02/23/25 12:00 Urine Catheter - Catheter Urine Culture - Final Klebsiella pneumoniae sp pneum Indicators for Scoring Admitted with or Primary Diagnosis of CVA/Stroke: Yes Hx of CVA/Stroke: Yes Modified Sony Score MRS Score at time of Evaluation: 3-Moderate disability NIHSS NIHSS 1a. Level of Consciousness: 0 - Alert; keenly responsive 1b. LOC Questions: 0 - Answers BOTH questions correctly 1c. LOC Commands: 0 - Performs BOTH tasks correctly 2. Best Gaze: 0 - Normal 3. Visual: 0 - No visual loss 4. Facial Palsy: 1 - Minor paralysis (flattened nasolabial fold, asymmetry on smiling) (Smile is symmetrical now but, there is still mild flattening of the R nasolabial fold. ) 5a. Left Arm: 0 - No drift; arm holds 90 (or 45) degrees for full 10 seconds 5b. Right Arm: 0 - No drift; arm holds 90 (or 45) degrees for full 10 seconds 6a. Left Le - No drift; leg holds 30-degree position for full 5 seconds (She can not left the L leg off the bed as high as the R but, she holds it up for 5 sec with no drift. I think she has some hip OA that limits the ROM) 6b. Right Le - No drift; leg holds 30-degree position for full 5 seconds 7. Limb Ataxia: 0 - Absent 8. Sensory: 0 - Normal; no sensory loss 9. Best Language: 1 - [id number] aphasia; (This comes and goes.......when she is dehydrated and the BP is on the low side she has more trouble with word finding. She is able to follow all my commands and can tell me the month and her age but, there is a delay until she can up with the correct month. ) 10. Dysarthria: 1 = [id number] dysarthria; 11. Extinction and Inattention: 0 - No abnormality Total: 3 (Down from 6 at admission. ) Stroke Questions Stroke Team Activated: No D/C Instructions Discharge Diet: No restrictions (thin liquids with soft bite size textures.) Weight Bearing Status: Full weight bearing Keep extremity elevated above heart level: Legs Call your doctor if you observe: Fever of 101 or Higher, Inability to urinate, Shortness of breath, Dizziness, Fainting spells, Chest pain, Increased palpitations (irregular heartbeat), Uncontrolled pain and - (STROKE symptoms: facial droop, slurred speech, inability to get words out, weakness on 1 side of the body and not the other, numbness on 1 side of the body and not the other, inability to maintain your balance sitting or standing, vertigo. ) DC O2, CPAP, BIPAP Needs RN Home O2 qualification: No Data to Display Home O2 Discharge instructions: No Pending Tests Upon Discharge: none When: Several appts have been scheduled for you prior to discharge from rehab. They are listed later in this document. Meaningful Use Info Meaningful Use Meaningful Use Diagnoses (Choose all that apply): Ischemic CVA CVA Therapy Assessed for PT,OT and/or ST?: Yes Ischemic Stroke Antithrombotic order at d/c?: No Reason antithrombotic not ordered: Treatment not Indicated (she is on Apixaban for PAF and the stroke was likely embolic. ) Dx of Atrial fib/flutter?: Yes Anticoagulant at discharge?: Yes Statin Dosing Therapy Reference: STATIN DOSE THERAPY REFERENCE: * Patients > 75 years receive moderate or high dose statin therapy. * Patients 75 years or YOUNGER should receive HIGH intensity statin dose unless contraindicated. You will be required to document reason for non-treatment if statin daily dose does not meet guidelines. HIGH DOSE STATIN THERAPY DAILY Atorvastatin > than or = to 40 mg Rosuvastatin > than or = to 20 mg Amlodipine + Atorvastatin > than or = to 2.5/40 mg Ezetimibe + Simvastatin 10/80 mg Simvastatin 80mg Statins at discharge?: Yes Primary Dx Acute Ischemic CVA?: Yes IV thrombolytic ordered during stay?: No Reason IV thrombolytic not ordered: Procedure not Indicated Discharge Plan Admission Admit Date/Time: 02/22/25 17:42 Primary Reason for Your Visit: POST STROKE DEBILITY Attending Provider: Norma Madden Primary Care Provider: Maik Fay Consulting Providers: Asia Reaves Instructions Patient Instructions: Discharge Instructions for Stroke, AFib Additional Instructions / Restrictions: 1. When you get dehydrated you have decreased blood flow to the brain and your thought processing deteriorates. You have increased difficulty finding words and your speech is more halting. You get very tired/drowsy and you have trouble swallowing. This happened while you were on rehab and we repeated your CT of the brain and it was unchanged so no new stroke. The symptoms resolved with IV fluids/hydration. You were taking a diuretic when you came to us in rehab. You do not need a diuretic. If you have swelling in your ankles it should be treated with compression stockings and elevation of the legs. I want you to drink at least 1,000 to 1200 cc/day.......that is between 32 and 40 ounces a day. diuretics cause uric acid to go up in the blood. A high uric acid can cause kidney stones and gout. Since you are no longer taking a diuretic we discontinued the Allopurinol which you were taking to keep the uric acid down. We rechecked the uric acid level 2 weeks after the Allopurinol was stopped and it is normal. You had no kidney stones on the CT scan of the abdomen that was done and you have never had gout. You do not need to take allopurinol any longer. 2. You are only taking 1 BP pill and it is a very low dose. you are taking Lopressor which is a drug that lowers BP but, it also helps to prevent very high heart rates when you are in AFIB. You are taking only 12.5 mg twice a day and that is the lowest dose. We can not go up on the dose because the BP is already on the low side. I am adding another pill called Digoxin which slows the heart rate down but, it does not decrease the BP. You will take this medication only twice a week, on and Tuesday. You are going to see a artist scientific at the hospital and his name is Dr. Lindsay. He may want to change the medications to control the AFIB if your BP stays on the low side. There is a medication called Amiodarone which is an anti-arrhythmic. It helps to slow the heart rate down and does not cause a decrease in BP. If you were on this medication we may be able to get rid of the Lopressor all together. You have an appt scheduled with him. 3. You have a large simple cyst (filled with fluid) on your left ovary. It is not causing any problems right now but, sometimes the large cyst can twist and cut off the blood supply to the ovary and this will cause a sudden onset of pain in the lower abd/pelvis. If this happens you need to go to the ER right away. You have a smaller complex cyst on the R ovary........this has some fluid in it but also has some more solid components. The director of global talent wanted us to check 2 blood test called a CEA and a CA 125. Theses test go up with cancer. Both of these values were normal. the director of global talent wants to see you in the office in 8 weeks and may want to repeat the ultrasound of the pelvis to make sure the cysts are not getting bigger. 4. 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 You are also anemic (low blood count). Because of this we did some testing to see if you had a disease called Multiple Myeloma (this is a form of bone cancer). You have an abnormal protein in your blood which causes and increase in Immunoglobulin. This is seen with Multiple Myeloma. We checked your urine for an abnormal protein and it was not present in the urine. Sometimes people have these proteins in their blood and they are of no significance. If you would like to take this further You could see an hematology/oncology doctor. 5. 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 AF cause clots to form in the heart and then they get squeezed out and go to the brain and can occlude an artery, sahara if that artery is already narrowed by arteriosclerosis. Because of the AFIB you will now be taking an anticoagulant called Eliquis (also called Apixaban). This will prevent the clots from forming in the heart and decrease the risk of additional strokes going forward. If you have any bleeding from the nose, blood from the rectum, blood in the urine or you have vomited blood go to the ER or call your doctor to see if you should stop the anticoagulation. If you get a bruise put ice on it to prevent the bruise from getting large. If you get a cut hold pressure on the area for 10 minutes without peeking to see if the bleeding will stop.......if it does not you may need to go to the ER. 6. At 89 years of age there is no benefit to keeping the blood sugars tightly controlled. It increases the risk for low blood sugars which is much more harmful than blood sugars that are a little high. Would like to keep the blood sugars mostly under 220-230 with no blood sugars less than 100. We have been able to go down on the amount of Glargine (long acting insulin) she was taking at admission to rehab. Strokes ALWAYS increase the blood sugars for a couple weeks after the stroke. for the first couple weeks at home check the blood sugar twice a day.......before breakfast and before supper and keep a record to show her PCP. If the blood sugars are consistently over 230 call the PCP or me to make adjustments to the Glargine. 7. It has been a pleasure getting to know you and I am so glad you are doing better and you will get to go home with Tahir. If any of you have questions after you leave rehab please do not hesitate to call me. OFFICE: [phone] CELL: [phone] NURSES STATION ON REHAB: [phone] Discharge Orders/Prescriptions Prescriptions: New acetaminophen 325 mg Tablet 650 mg PO Q6H PRN PRN (Reason: Pain Score 1-10) Qty: 1 0RF glimepiride 1 mg Tablet 1 mg PO BREAKFAST Qty: 30 0RF gabapentin 300 mg Capsule 300 mg PO QHS Qty: 30 0RF insulin glargine-yfgn 100 unit/mL (3 mL) Insulin Pen 8 unit subcut 0800 Qty: 1 0RF meclizine 12.5 mg Tablet 12.5 mg PO Q12H PRN PRN (Reason: vertigo (room spinning)) Qty: 20 0RF sennosides-docusate sodium [Stimulant Laxative Plus] 8.6-50 mg Tablet 2 tab PO BID Qty: 120 0RF potassium chloride 20 mEq Tablet,Er Particles/Crystals 20 meq PO DAILYCM Qty: 30 0RF Rx Instructions: This can be crushed and given in applesauce metoprolol tartrate 25 mg Tablet 12.5 mg PO BID Qty: 30 0RF Rx Instructions: 1/2 tablet twice a day magnesium oxide 400 mg (241.3 mg magnesium) tablet 400 mg PO DAILY Qty: 30 0RF digoxin 125 mcg (0.125 mg) tablet See Rx Instructions .ROUTE .COMPLEX Qty: 10 0RF Rx Instructions: 0.125 mg orally on and Sundays. Continued pramipexole 0.25 MG tablet 0.25 mg PO QHS cyanocobalamin (vitamin B-12) 1,000 MCG capsule 1,000 mcg PO DAILY rosuvastatin 20 mg tablet 20 mg PO QHS Eliquis 5 mg tablet 5 mg PO Q12H Qty: 60 0RF Discontinued allopurinol 100 MG tablet 100 mg PO BIDCM gabapentin 400 mg capsule 300 mg PO QHS metoprolol succinate 25 mg tablet extended release 24 hr 25 mg PO DAILY meclizine 25 mg tablet 25 mg PO TID PRN PRN (Reason: Dizziness) Referrals / Follow Up: Aravind Lindsay MD [Med Staff - Active Staff] - 03/27/25 10:15 am Maik Fay MD [Primary Care Provider] - 03/12/25 1:20 pm (You will see Tosha ) Brianna Macario MD [Med Staff - Active Staff] - 05/02/25 10:50 am Jayla Parker NP-C [Med Staff - Adv Practice Prof] - 03/21/25 10:30 am Disposition Disposition (needs filled in before D/C Order can be placed): Home Health Service Charges/Coding Visit Charges Inpatient E&M: 24629 Disch Hosp >30min
[2025-03-07 16:41] LABS: Bedside Glucose 123 mg/dL (74-106)
[2025-03-07 18:00] VITALS: BP 111/54; PULSE 74; RESP 16; TEMP 36.4; O2SAT 96
[2025-03-07 19:30] VITALS: BP 116/65; PULSE 83; RESP 20; TEMP 37.2; O2SAT 96
[2025-03-07] MEDS: Gabapentin 300 MG Capsule PO (21:05)
[2025-03-07] MEDS: Atorvastatin Calcium 40 MG Tablet PO (21:05)
[2025-03-07] MEDS: Senna/Docusate Sodium 1 Tablet 2 TABLET PO (21:05)
[2025-03-07] MEDS: Pramipexole Di-HCl 0.25 MG Tablet PO (21:06)
[2025-03-07] MEDS: MELATONIN 3 MG TABLET PO (21:06)
[2025-03-07 21:07] VITALS: BP 116/65; PULSE 83
[2025-03-07] MEDS: 0.9% Saline Lock 10 ML Syringe IV (21:15)
[2025-03-07 21:28] LABS: Bedside Glucose 153 mg/dL (74-106)
[2025-03-08 03:48] VITALS: BMI 29.7
[2025-03-08] MEDS: Menthol/Lanolin/Calamine/Znox 113 GM Tube 1 APPLIC TOPICAL (05:31)
[2025-03-08] MEDS: Nystatin Powder 15gm Bottle 1 APPLIC TOPICAL (05:32)
[2025-03-08 06:00] VITALS: BP 106/56; PULSE 76; RESP 24; TEMP 37.1; O2SAT 94
[2025-03-08 06:50] LABS: Bedside Glucose 147 mg/dL (74-106)
[2025-03-08] MEDS: Insulin Glargine-YFGN 100 UNIT/ML Pen 8 UNIT SC (09:03)
[2025-03-08 09:05] VITALS: BP 111/45; PULSE 83
[2025-03-08] MEDS: Metoprolol Tartrate 25 MG Tablet 12.5 MG PO (09:05)
[2025-03-08] MEDS: Glimepiride 1 MG Tablet PO (09:05)
[2025-03-08] MEDS: APIXABAN 5 MG TABLET PO (09:06)
[2025-03-08] MEDS: Magnesium Chloride 64 MG Delay Rel.Tablet 128 MG PO (09:06)
[2025-03-08] MEDS: Cyanocobalamin 500 MCG Tablet 1000 MCG PO (09:07)
[2025-03-08] MEDS: Potassium Chloride Oral Tablet 20 MEQ PO (09:07)
[2025-03-08 09:53] VITALS: BMI 29.7
--- NOTE | 2025-03-08 11:25 | CASEMGMT ---
Social Work Physician requesting palliative medicine referral. SW met with pt and pt's dgt Gabriela and explained Palliative Medicine program. Pt's dgt is agreeable to Palliative referral through [facility]. Referral sent via secure email. DEA Mercado
[2025-03-08 11:28] LABS: Bedside Glucose 201 mg/dL (74-106)
== END 2025-03-08 11:35 | disposition home health service (06) | DRG 57 ==
PROVIDERS: Admitting Provider Internal Medicine; PCP Family Medicine; Referring Provider Internal Medicine; Visit Provider Internal Medicine
DX: I69.322 Dysarthria following cerebral infarction (principal); N30.00 Acute cystitis without hematuria; I27.20 Pulmonary hypertension, unspecified; I69.320 Aphasia following cerebral infarction; B96.1 Klebsiella pneumoniae [K. pneumoniae] as the cause of diseases classified elsewhere; I69.392 Facial weakness following cerebral infarction; G25.81 Restless legs syndrome; I48.0 Paroxysmal atrial fibrillation; E11.42 Type 2 diabetes mellitus with diabetic polyneuropathy; N18.32 Chronic kidney disease, stage 3b; I12.9 Hypertensive chronic kidney disease with stage 1 through stage 4 chronic kidney disease, or unspecified chronic kidney disease; D64.9 Anemia, unspecified; D47.2 Monoclonal gammopathy; E11.22 Type 2 diabetes mellitus with diabetic chronic kidney disease; Z79.4 Long term (current) use of insulin; E78.5 Hyperlipidemia, unspecified; H10.9 Unspecified conjunctivitis; K57.90 Diverticulosis of intestine, part unspecified, without perforation or abscess without bleeding; Z79.84 Long term (current) use of oral hypoglycemic drugs; N83.292 Other ovarian cyst, left side; N83.201 Unspecified ovarian cyst, right side; Z79.01 Long term (current) use of anticoagulants; M89.8X8 Other specified disorders of bone, other site; E79.0 Hyperuricemia without signs of inflammatory arthritis and tophaceous disease; Z78.0 Asymptomatic menopausal state; Z87.891 Personal history of nicotine dependence; Z79.899 Other long term (current) drug therapy
CPT/HCPCS: 36415; 70450; 74018; 74176; 74177; 74230; 76856; 80048; 80053; 81001; 81050; 82378; 82784; 82962; 83735; 83930; 83935; 84100; 84165; 84166; 84300; 84443; 84550; 85014; 85018; 85025; 85027; 86304; 86334; 86335; 87070; 87075; 87077; 87086; 87088; 87186; 87205; 92507; 92523; 92526; 92610; 92611; 93005; 94668; 97110; 97112; 97116; 97161; 97165; 97530; 97535; 97802; Q9967; A4216